=== PATIENT | female | born 1945 | race Caucasian/White ===

== ENCOUNTER 2020-08-12 16:24 | Outpatient (REF) | payer MEDICARE, MEDICAID, SELFPAY ==
--- NOTE | 2020-08-12 16:30 | MM_ITS ---
EXAMINATION: MM SCREENING DIGITAL BREAST TOMOSYNTHESIS, BILATERAL CLINICAL INFORMATION: Screening. Asymptomatic. The lifetime risk of breast cancer based on the Tyrer-Cuzick Model is 6.6%. COMPARISON: Mammography: 12/21/2018 and studies dating back to 09/02/2009. TECHNIQUE: Digital breast tomosynthesis is performed in both the craniocaudal and mediolateral oblique views along with computer-aided detection (CAD). Synthesized 2D images are generated from the tomosynthesis. FINDINGS: There are scattered areas of fibroglandular density (ACR BI-RADS breast composition Category b). There is multiplicity and bilaterality of calcifications the majority of which are vascular in nature. There are numerous calcifications about the anterior middle aspect of the right breast which appear to have increased since previous studies and I cannot definitely say are vascular in nature. Recommend spot magnification films of the right breast in craniocaudal and 90 degree mediolateral views. Radiology staff will contact patient to obtain these studies. No new suspicious left breast finding identified. MM/MM tomosynthesis screening BI IMPRESSION: Increase in right breast calcifications for which further evaluation with spot magnification views is recommended. ASSESSMENT: BI-RADS 0: Incomplete - Need Additional Imaging Evaluation RECOMMENDATION: 1. Additional views of the right breast 2. Targeted ultrasound if warranted after review of the additional views. 3. Radiology department staff will contact the patient for additional imaging. This patient's information was entered into a reminder system with a target due date for their next mammogram.
== END 2020-08-12 16:25 | disposition home or self-care (01) ==
LOC: HO.MAMMO 16:24
PROVIDERS: Visit Provider Internal Medicine Medical Oncology
DX: Z12.31 Encounter for screening mammogram for malignant neoplasm of breast (principal)
CPT/HCPCS: 77063; 77067

== ENCOUNTER 2020-08-18 16:17 | Outpatient (REF) | payer MEDICARE, MEDICAID, SELFPAY ==
--- NOTE | 2020-08-18 | US_ITS ---
EXAMINATION: US ABDOMEN COMPLETE CLINICAL INFORMATION: Right upper quadrant pain. COMPARISON: Ultrasound abdomen 08/14/2019 and 05/07/2012. CT abdomen and pelvis 06/15/2019. TECHNIQUE: Real-time imaging of the abdominal viscera. Technically difficult study secondary to bowel gas and body habitus. FINDINGS: PANCREAS: The visualized portions of the body and head are unremarkable. Tail obscured by overlying bowel gas. No peripancreatic inflammatory change or mass. ABDOMINAL AORTA: The proximal, mid, and distal segments are normal in caliber. INFERIOR VENA CAVA: Visualized portions are normal. LIVER: There is diffusely increased echogenicity consistent with fatty infiltration. The liver contour is normal. Previously noted cyst at the dome is not identified on this study. No focal hepatic lesion. There is no intrahepatic biliary duct dilatation seen. GALLBLADDER: There is sludge present. No gallbladder wall thickening or pericholecystic fluid is identified. COMMON BILE DUCT: Normal in caliber measuring 0.5 cm in diameter. RIGHT KIDNEY: Normal. No hydronephrosis. No renal calculi or focal parenchymal lesions. The kidney measures 11.0 cm in maximum dimension. LEFT KIDNEY: Normal. No hydronephrosis. No renal calculi or focal parenchymal lesions. The kidney measures 11.1 cm in maximum dimension. SPLEEN: The previously noted splenic cyst on ultrasound of 08/14/2019 is not identified. The spleen measures 11.4 cm in maximum dimension. FREE FLUID: None. US/US abdomen complete IMPRESSION: Gallbladder sludge without evidence of acute cholecystitis. Fatty infiltration of the liver.
== END 2020-08-18 16:18 | disposition home or self-care (01) ==
LOC: HO.US 16:17
PROVIDERS: Visit Provider Internal Medicine
DX: R10.11 Right upper quadrant pain (principal); R93.2 Abnormal findings on diagnostic imaging of liver and biliary tract
CPT/HCPCS: 76700

== ENCOUNTER 2020-09-11 14:40 | Outpatient (REF) | payer MEDICARE, MEDICAID, SELFPAY ==
--- NOTE | ~2020-09-11 | MM_ITS ---
EXAMINATION: MM DIAGNOSTIC DIGITAL MAMMOGRAPHY, RIGHT CLINICAL INFORMATION: Retroareolar calcifications COMPARISON: Mammography: August 12, 2020 and studies dating back to September 06, 2010 TECHNIQUE: Digital mammography is performed in the following views: Spot magnification views in craniocaudal and 90 degree mediolateral views. FINDINGS: There are scattered areas of fibroglandular density (ACR BI-RADS breast composition Category b). Films demonstrate some calcifications to represent vascular calcifications with one very faint grouping of calcifications which are difficult to definitely define as being vascular calcifications. Recommend 6 month follow-up magnification views of the right breast. Results are discussed with the patient at time of visit. MM/MM added views RT IMPRESSION: Probably benign retroareolar calcifications of the right breast. ASSESSMENT: BI-RADS 3: Probably Benign RECOMMENDATION: Diagnostic mammography in 6 months. This patient's information was entered into a reminder system with a target due date for their next mammogram.
== END 2020-09-11 14:41 | disposition home or self-care (01) ==
LOC: HO.MAMMO 14:40
PROVIDERS: Visit Provider Internal Medicine
DX: R92.1 Mammographic calcification found on diagnostic imaging of breast (principal)
CPT/HCPCS: 77065

== ENCOUNTER 2020-11-17 19:58 | Inpatient (IN) | payer MEDICARE, MEDICAID, SELFPAY ==
--- NOTE | ~2020-11-17 | XR_ITS ---
EXAMINATION: XR CHEST CLINICAL INFORMATION: Dyspnea COMPARISON: Chest x-ray 08/14/2019 TECHNIQUE: Frontal view of the chest was obtained. FINDINGS: Cardiac silhouette is normal in size. The lungs are well aerated. There is no lobar consolidation. Similar pleural tenting of the right lung base. No pleural effusion or pneumothorax. Degenerative changes of the spine. XR/XR chest 1V IMPRESSION: Stable examination demonstrating no acute pulmonary pathology.
--- NOTE | ~2020-11-17 | CT_ITS ---
EXAMINATION: CT CHEST WITHOUT CONTRAST CLINICAL INFORMATION: SIADH. Assess for occult malignancy COMPARISON: Chest radiograph 11/17/2020, CT abdomen with contrast 06/15/2019, CT chest with contrast 08/03/2010 TECHNIQUE: Multidetector volumetric CT imaging of the chest was done. Axial MIP volume rendering provided. Sagittal and coronal reformatted images were obtained. This CT examination was performed using dose optimization techniques as appropriate, variously including the following: *Automated exposure control *Adjustment of mA and/or kV according to patient size (this includes techniques or standardized protocols for targeted exams where dose is matched to indication/reason for exam; i.e. extremities or head) *Use of iterative reconstruction technique DLP: 239 mGy-cm FINDINGS: LUNGS: The central airways are clear. There is no visible endobronchial lesion or bronchiectasis. Atelectasis present right base adjacent to the effusion. There is no mass. There are multiple small nodules demonstrated, most are nonmineralized. Most are not visible on remote prior CT 2010 which were also at thicker sections limiting comparison. The left lung has over 15 nonmineralized nodules. The largest in the upper lobe is only 4 mm subpleural series 7/156. The largest in the left lower lobe is 5 mm posterior base series 7/474. There are also some incidental calcified granuloma anterior left upper lobe. The right lung has at least 15 nonmineralized nodules, the largest isolated nodule is 0.7 cm medial right middle lobe, similar to the remote CT 2010, consistent with a benign nodule. Multiple other nodules are 4 mm and less in size. A few calcified granulomata are also present on the right. There is new plaque like pleural-based nodule versus atelectasis posterior medial right upper lobe series 7 image 150, and sagittal image 60, measuring 6 x 6 x 13 mm. MEDIASTINUM: No hilar or mediastinal adenopathy. No pericardial effusion. Coronary artery atherosclerotic calcifications present. PLEURA: Small right effusion with passive atelectasis right base. AXILLA: No lymphadenopathy. UPPER ABDOMEN: Unremarkable. OSSEOUS STRUCTURES: Unremarkable. CT/CT chest wo con IMPRESSION: 1. Multiple small bilateral nonmineralized pulmonary nodules. Largest new plaque-like nodule right versus atelectasis posterior upper lobe 6 x 6 x 13 mm. Largest nodule on left 5 mm. Recommend follow-up noncontrast CT in 3 months for change. 2. Small right pleural effusion with passive atelectasis right base. 3. No hilar or mediastinal mass or adenopathy.
--- NOTE | ~2020-11-17 | CT_ITS ---
CT SOFT TISSUE NECK WITHOUT CONTRAST CLINICAL INFORMATION: History of throat cancer. Rule out recurrence. COMPARISON: Neck CT 05/30/2011. TECHNIQUE: Helical imaging was performed in the axial plane with generation of coronal and sagittal reformatted images. This CT examination was performed using dose optimization techniques as appropriate, variously including the following: *Automated exposure control *Adjustment of mA and/or kV according to patient size (this includes techniques or standardized protocols for targeted exams where dose is matched to indication/reason for exam; i.e. extremities or head) *Use of iterative reconstruction technique FINDINGS: Exam is very limited without contrast. Fatty replacement of the parotid and submandibular glands. Retropharyngeal course of the carotid arteries bilaterally. Nondiagnostic assessment for superficial mucosal lesions given the lack of contrast. No definite discrete masses are seen. No retropharyngeal fluid collections. There are surgical clips adjacent to the thyroid gland. No cervical lymphadenopathy. There is multilevel cervical spondylosis. No suspicious intraosseous lesions. Partially imaged small right pleural effusion. CT/CT soft tissue neck wo con IMPRESSION: - Nondiagnostic assessment for superficial mucosal based lesions given the lack of contrast. No definite discrete masses are identified. Postcontrast imaging or PET could be obtained in light of the history as clinically indicated. - No cervical lymphadenopathy. - Fatty replacement of the parotid and submandibular glands. - Retropharyngeal course of the carotid arteries bilaterally. - Partially imaged small right pleural effusion.
--- NOTE | ~2020-11-17 | CT_ITS ---
EXAMINATION: CT HEAD WITHOUT CONTRAST CLINICAL INFORMATION: Rule out JOB COACH/JOB DEVELOPER lesion. COMPARISON: None available. TECHNIQUE: Contiguous axial imaging was performed from the skull base to vertex without intravenous administration of contrast. This CT examination was performed using dose optimization techniques as appropriate, variously including the following: *Automated exposure control *Adjustment of mA and/or kV according to patient size (this includes techniques or standardized protocols for targeted exams where dose is matched to indication/reason for exam; i.e. extremities or head) *Use of iterative reconstruction technique FINDINGS: There is mild chronic microangiopathy. There is no intracranial hemorrhage, hydrocephalus, extra-axial surface collection, midline shift, or other herniation pattern. Santos to white matter differentiation is diffusely maintained without evidence of an evolved acute territorial infarct. The basilar cisterns are preserved. No significant soft tissue abnormality. No acute osseous abnormality. The paranasal sinuses and the mastoid air cells are well aerated. CT/CT head/brain wo con IMPRESSION: No acute intracranial abnormality. There is mild chronic microangiopathy. MRI with and without IV contrast would be more sensitive in assessing for metastatic lesions.
[2020-11-17 20:13] VITALS: BP 159/93; PULSE 108; RESP 20; TEMP 36.4; O2SAT 95; BMI 42.3
--- NOTE | 2020-11-17 21:34 | ECG_ITS ---
Test Reason : SOB Blood Pressure : / mmHG Vent. Rate : 120 BPM Atrial Rate : 129 BPM P-R Int : 000 ms QRS Dur : 096 ms QT Int : 288 ms P-R-T Axes : 000 -14 103 degrees QTc Int : 407 ms Atrial fibrillation with rapid ventricular response Nonspecific ST and T wave abnormality Abnormal ECG When compared with ECG of 15-JUN-2019 02:36, Atrial fibrillation has replaced Sinus rhythm Vent. rate has increased BY [address] no longer elevated in Lateral leads Referred By: Ila George Electronically Signed By:COLE BAR
--- NOTE | 2020-11-17 21:35 | ED.SOB ---
HPI - SOB/Dyspnea General Chief Complaint: General Medical Stated Complaint: DYSPNEA,HYPERTENSION Time Seen by Provider: 11/17/20 21:33 Source: patient Mode of arrival: EMS History of Present Illness HPI Narrative: 75-year-old female with known history of throat cancer who presents with increasing shortness of breath for the past 4 days with both orthopnea and dyspnea on exertion, cough at night, and denies any history of heart failure. In addition, patient denies fevers, chills, chest pain but states she has had nausea without abdominal pain, diarrhea, urinary pain/burning/frequency. In addition, patient states she has had some back pain but states that this has been a chronic component with her. She also describes some periorbital swelling over the last couple of days that occurs in the morning. Related Data Previous Rx's Medication Instructions Recorded apixaban 5 mg tablet 5 mg PO BID 30 Days #60 tab 10/13/20 Allergies Allergy/AdvReac Type Severity Reaction Status Date / Time SEASONAL ALLERGIES Allergy Unknown SNEEZING Uncoded 04/23/20 15:17 RUNNY NOSE Review of Systems Review of Systems: Pertinent positives and negatives as stated in HPI 10 point review of systems is otherwise negative. PMFSH Past Medical History Source: nursing notes reviewed Medical History Afib HTN (hypertension) Myocardial infarct Throat cancer Social History Social History Alcohol intake: never Smoking Status: Never smoker Use of substances other than those prescribed or required for medical reasons: No Advance Directives: No Advance Directives Information Provided: Yes Physical Exam Vital Signs: Vital Signs: Last Vital Signs Temp 97.8 F 11/17/20 22:19 Pulse 106 H 11/18/20 00:31 Resp 19 11/17/20 22:19 BP 146/76 H 11/18/20 00:31 Pulse Ox 95 11/17/20 22:19 Body Mass Index 42.3 VITAL SIGNS: Reviewed. GENERAL: Well developed, well nourished, mild distress. HEAD: Normocephalic/atraumatic, EYES: PERRLA, EOMI, no periorbital swelling noted at this time. OROPHARYNX: no oral lesions noted, posterior pharynx clear, moist mucosa NECK: Supple, no adenopathy LUNGS: Diminished throughout, difficulty completing full sentences, rales noted and diminished at left base, tachypnea. SpO2<95> CARDIOVASCULAR: Regular rate and rhythm without noted murmurs, no JVD or lower extremity edema. ABDOMEN: Obese, Soft, non-tender, non-distended with bowel sounds. NEUROLOGIC: Alert and oriented x 4. Strength and sensation to light touch were grossly intact x 4. Course Course Course Narrative: 75-year-old female with history and clinical presentation suggestive of CHF exacerbation, pneumonia, less likely cardiac ischemia. Review of all investigations new onset atrial fibrillation with CHF, hyponatremia, hypomagnesemia. Patient on Eliquis for anticoagulation and endorses that she is on flecainide. This case was discussed with inpatient hospitalist team who is agreeable for admission and the decision was made to delay administration of Lasix at this time due to the hyponatremia. MDM - SOB/Dyspnea Lab Data Result diagrams: 11/17/20 22:05 11/17/20 22:05 Labs: Lab Results 11/17/20 11/17/20 11/17/20 Range/Units 22:05 22:05 22:05 WBC 12.2 H (4.8-10.8) X10*3/uL RBC 3.85 L (4.20-5.50) X10*6/uL Hgb 12.9 (12.0-16.0) g/dl Hct 36.5 L (37-47) % MCV 94.8 (80-98) fL MCH 33.5 H (27.0-33.0) pg MCHC 35.3 H (31.0-35.0) g/dl RDW 12.9 (11.0-16.0) % Plt Count 233 (160-400) X10*3/uL MPV 9.3 L (9.4-12.3) fL Immature Gran % (Auto) 0.5 H (0.0-0.4) % Neut % (Auto) 87.3 H (45-73) % Lymph % (Auto) 6.1 L (20-40) % [place] % (Auto) 5.9 (2-11) % Eos % (Auto) 0.0 (0-4) % Baso % (Auto) 0.2 (0-2) % Lymph # (Auto) 0.7 L (1.2-4.9) X10*3/uL [place] # (Auto) 0.7 (0.1-1.2) X10*3/uL Eos # (Auto) 0.0 (0.0-0.4) X10*3/uL Baso # (Auto) 0.0 (0.0-0.2) X10*3/uL Abs Immat Gran (auto) 0.06 H (0.00-0.03) X10*3/uL Absolute Neuts (auto) 10.7 H (2.0-8.3) X10*3/uL Absolute Nucleated RBC 0.000 (0.0-0.012) X10*3/uL Nucleated RBC % (auto) 0.0 (0.0-0.2) /100WBC VBG pH (7.32-7.43) VBG pCO2 mmHg VBG pO2 mmHg VBG HCO3 (22-26) mmol/L VBG O2 Saturation % VBG Base Excess mmol/L Sodium 119 L* (135-145) mmol/L Potassium 4.0 (3.3-5.1) mmol/L Chloride 83 L (96-108) mmol/L Carbon Dioxide 28 (22-29) mmol/L Anion Gap 13 (12-20) BUN 10 (9-16) mg/dL Creatinine 0.62 (0.5-1.4) mg/dL Estim Creat Clear Calc 106.1 Estimated GFR > 60 Random Glucose 171 H (60-115) mg/dL Lactic Acid (0.5-2.0) mmol/L Calcium 8.1 L (8.4-10.2) mg/dL Magnesium 1.4 L* (1.6-2.6) mg/dL Total Bilirubin 0.7 (0.0-1.0) mg/dL AST 24 (5-31) U/L ALT 18 (0-31) U/L Alkaline Phosphatase 69 (39-117) U/L Troponin I High Sens (<3.5-17.0) ng/L B-Natriuretic Peptide 704 H (<100) pg/mL Total Protein 6.6 (6.5-8.0) g/dL Albumin 3.9 (3.5-5.0) g/dL COVID-19 ([facility]) (Negative) COVID-19 Clin [facility] 11/17/20 11/17/20 11/17/20 Range/Units 22:05 22:05 22:05 WBC (4.8-10.8) X10*3/uL RBC (4.20-5.50) X10*6/uL Hgb (12.0-16.0) g/dl Hct (37-47) % MCV (80-98) fL MCH (27.0-33.0) pg MCHC (31.0-35.0) g/dl RDW (11.0-16.0) % Plt Count (160-400) X10*3/uL MPV (9.4-12.3) fL Immature Gran % (Auto) (0.0-0.4) % Neut % (Auto) (45-73) % Lymph % (Auto) (20-40) % [place] % (Auto) (2-11) % Eos % (Auto) (0-4) % Baso % (Auto) (0-2) % Lymph # (Auto) (1.2-4.9) X10*3/uL [place] # (Auto) (0.1-1.2) X10*3/uL Eos # (Auto) (0.0-0.4) X10*3/uL Baso # (Auto) (0.0-0.2) X10*3/uL Abs Immat Gran (auto) (0.00-0.03) X10*3/uL Absolute Neuts (auto) (2.0-8.3) X10*3/uL Absolute Nucleated RBC (0.0-0.012) X10*3/uL Nucleated RBC % (auto) (0.0-0.2) /100WBC VBG pH (7.32-7.43) VBG pCO2 mmHg VBG pO2 mmHg VBG HCO3 (22-26) mmol/L VBG O2 Saturation % VBG Base Excess mmol/L Sodium (135-145) mmol/L Potassium (3.3-5.1) mmol/L Chloride (96-108) mmol/L Carbon Dioxide (22-29) mmol/L Anion Gap (12-20) BUN (9-16) mg/dL Creatinine (0.5-1.4) mg/dL Estim Creat Clear Calc Estimated GFR Random Glucose (60-115) mg/dL Lactic Acid 1.5 (0.5-2.0) mmol/L Calcium (8.4-10.2) mg/dL Magnesium (1.6-2.6) mg/dL Total Bilirubin (0.0-1.0) mg/dL AST (5-31) U/L ALT (0-31) U/L Alkaline Phosphatase (39-117) U/L Troponin I High Sens 7.6 (<3.5-17.0) ng/L B-Natriuretic Peptide (<100) pg/mL Total Protein (6.5-8.0) g/dL Albumin (3.5-5.0) g/dL COVID-19 ([facility]) Negative (Negative) COVID-19 Clin Com See Note 11/17/20 Range/Units 22:10 WBC (4.8-10.8) X10*3/uL RBC (4.20-5.50) X10*6/uL Hgb (12.0-16.0) g/dl Hct (37-47) % MCV (80-98) fL MCH (27.0-33.0) pg MCHC (31.0-35.0) g/dl RDW (11.0-16.0) % Plt Count (160-400) X10*3/uL MPV (9.4-12.3) fL Immature Gran % (Auto) (0.0-0.4) % Neut % (Auto) (45-73) % Lymph % (Auto) (20-40) % [place] % (Auto) (2-11) % Eos % (Auto) (0-4) % Baso % (Auto) (0-2) % Lymph # (Auto) (1.2-4.9) X10*3/uL [place] # (Auto) (0.1-1.2) X10*3/uL Eos # (Auto) (0.0-0.4) X10*3/uL Baso # (Auto) (0.0-0.2) X10*3/uL Abs Immat Gran (auto) (0.00-0.03) X10*3/uL Absolute Neuts (auto) (2.0-8.3) X10*3/uL Absolute Nucleated RBC (0.0-0.012) X10*3/uL Nucleated RBC % (auto) (0.0-0.2) /100WBC VBG pH 7.41 (7.32-7.43) VBG pCO2 40 mmHg VBG pO2 80 mmHg VBG HCO3 26 (22-26) mmol/L VBG O2 Saturation 94.0 % VBG Base Excess 1.9 mmol/L Sodium (135-145) mmol/L Potassium (3.3-5.1) mmol/L Chloride (96-108) mmol/L Carbon Dioxide (22-29) mmol/L Anion Gap (12-20) BUN (9-16) mg/dL Creatinine (0.5-1.4) mg/dL Estim Creat Clear Calc Estimated GFR Random Glucose (60-115) mg/dL Lactic Acid (0.5-2.0) mmol/L Calcium (8.4-10.2) mg/dL Magnesium (1.6-2.6) mg/dL Total Bilirubin (0.0-1.0) mg/dL AST (5-31) U/L ALT (0-31) U/L Alkaline Phosphatase (39-117) U/L Troponin I High Sens (<3.5-17.0) ng/L B-Natriuretic Peptide (<100) pg/mL Total Protein (6.5-8.0) g/dL Albumin (3.5-5.0) g/dL COVID-19 ([facility]) (Negative) COVID-19 Clin Com ECG Data Attestation: I personally reviewed and interpreted this ECG as follows: Prior ECG tracings: available for review (06/15/2019 patient now has atrial fibrillation) Interpretation: Atrial fibrillation, HR -120, no evidence of acute ischemia, QRS/QTC are within normal limits. Critical Care Time Critical Care Time Critical Care Time: Yes Total Critical Care Time: 45 Attestation: I personally attest to this time spent taking care of the patient. Discharge Plan Discharge Clinical Impression: Atrial fibrillation, new onset, Hypomagnesemia, Hyponatremia Patient Disposition: Admitted As Inpatient
[2020-11-17 22:11] LABS: MANUAL DIFF FLAG NO
[2020-11-17 22:13] LABS: Basophils Percent Auto 0.2 % (0-2); Hematocrit 36.5 % (37-47); Hemoglobin 12.9 g/dl (12.0-16.0); Imm Gran Abs Auto 0.06 X10*3/uL (0.00-0.03); Imm Gran Pct Auto 0.5 % (0.0-0.4); Lymphocytes Absolute Auto 0.7 X10*3/uL (1.2-4.9); Lymphocytes Percent Auto 6.1 % (20-40); Mean Corpuscular HGB Conc 35.3 g/dl (31.0-35.0); Mean Corpuscular Hemoglobin 33.5 pg (27.0-33.0); Mean Corpuscular Volume 94.8 fL (80-98); Mean Platelet Volume 9.3 fL (9.4-12.3); Monocytes Absolute Auto 0.7 X10*3/uL (0.1-1.2); Monocytes Percent Auto 5.9 % (2-11); Neutrophils Absolute Auto 10.7 X10*3/uL (2.0-8.3); Neutrophils Percent Auto 87.3 % (45-73); Platelet Count 233 X10*3/uL (160-400); Red Blood Count 3.85 X10*6/uL (4.20-5.50); Red Cell Distribution Width 12.9 % (11.0-16.0); White Blood Count 12.2 X10*3/uL (4.8-10.8)
[2020-11-17 22:16] LABS: Venous Blood Gas Refer to POC result
[2020-11-17 22:17] LABS: VBG Base Excess 1.9 mmol/L; VBG HCO3 26 mmol/L (22-26); VBG pCO2 40 mmHg; VBG pH 7.41 (7.32-7.43); VBG pO2 80 mmHg
[2020-11-17 22:19] VITALS: BP 155/94; PULSE 110; RESP 19; TEMP 36.6; O2SAT 95
[2020-11-17 22:29] LABS: COVID-19 Test Negative (Negative); IDNOW Serial# 9DD0AD1C
[2020-11-17 22:42] LABS: Lactic Acid 1.5 mmol/L (0.5-2.0)
[2020-11-17 22:56] LABS: B Type Natriuretic Peptide 704 pg/mL (<100); Troponin-I High Sensitivity 7.6 ng/L (<3.5-17.0)
[2020-11-17 23:06] LABS: Alanine Aminotransferase 18 U/L (0-31); Albumin Level 3.9 g/dL (3.5-5.0); Alkaline Phosphatase 69 U/L (39-117); Anion Gap 13 (12-20); Aspartate Amino Transferase 24 U/L (5-31); Bilirubin Total 0.7 mg/dL (0.0-1.0); Blood Urea Nitrogen 10 mg/dL (9-16); Calcium 8.1 mg/dL (8.4-10.2); Carbon Dioxide 28 mmol/L (22-29); Chloride 83 mmol/L (96-108); Creatinine Clr Calc Pharmacy 106.1; Estimated Glomerular Filt Rate > 60; Glucose Random 171 mg/dL (60-115); Magnesium 1.4 mg/dL (1.6-2.6); Sodium 119 mmol/L (135-145); Total Protein 6.6 g/dL (6.5-8.0)
--- NOTE | 2020-11-17 23:13 | P.HPHOSP_ITS ---
History of Present Illness Date of Service: 11/17/20 Chief Complaint: Chest discomfort 75-year-old female with past medical history of hypertension hyperlipidemia, anxiety, AFib on Eliquis, chronic back pain status post surgery presented hospital a chief complaint of chest discomfort. Patient mentions that she has been having intermittent discomfort, no associated lightheadedness dizziness. No associated diaphoresis nausea or vomiting. Denies any chest pain at the time of my entry. Also mentioned she has been having shortness of breath and dyspnea on exertion with minimal activity. Denies any leg swelling. Denies any fever chills cough. Denies any recent travel or sick contacts. Review of all other systems is negative except mentioned above ER course: Per ER team patient noted to have sodium of 119. Chest x-ray showed no acute findings. Noted elevated proBNP, EKG nonischemic ; troponin negative admitted to the hospital for further management. [facility], [facility] Medical History Afib Essential hypertension HTN (hypertension) Myocardial infarct Throat cancer Social History Household Members: Family Housing: House Alcohol intake: current Alcohol type: beer and hard liquor Smoking Status: Former smoker service: No Current occupational status: retired Meds Allergies Allergy/AdvReac Type Severity Reaction Status Date / Time SEASONAL ALLERGIES Allergy Unknown SNEEZING Uncoded 04/23/20 15:17 RUNNY NOSE Active Medications: Current Medications Generic Name Dose Route Start Last Admin Trade Name Freq PRN Reason Stop Dose Admin Acetaminophen 650 mg 11/17/20 23:10 Acetaminophen 325 Mg Tablet PO Q6H PRN Pain, Mild (Pain Scale 1-3) Magnesium Sulfate/Dextrose 1 gm in 100 mls @ 100 mls/hr 11/17/20 23:07 IV 11/18/20 00:06 ONCE ONE Sodium Chloride 1,000 mls @ 999 mls/hr 11/17/20 23:09 Ns IV 11/18/20 00:09 .Q1H1M STA Sodium Chloride 1,000 mls @ 50 mls/hr 11/17/20 23:15 Ns IVCONT .Q20H DEE Senna 17.2 mg 11/17/20 23:10 Sennosides 8.6 Mg Tablet PO BEDTIME PRN Constipation Sodium Chloride 3 ml 11/18/20 00:00 0.9 % Sodium Chloride Flush 3 Ml Syringe IVFLUSH QSHIFT [facility] Home Medications Medication Instructions Recorded Confirmed Last Taken Type lorazepam 1 tab PO BID PRN 11/18/20 11/18/20 Unknown History omeprazole 1 cap PO BID 11/18/20 11/18/20 Unknown History simvastatin 1 tab PO DAILY 11/18/20 11/18/20 Unknown History Physical Exam Vital Signs and Narrative: Vital Signs: Last Vital Signs Temp 97.8 F 11/17/20 22:19 Pulse 110 H 11/17/20 22:19 Resp 19 11/17/20 22:19 BP 155/94 H 11/17/20 22:19 Pulse Ox 95 11/17/20 22:19 Body Mass Index 42.3 Gen: Appears be in no acute distress HEENT: NCAT, Moist mucosa. Pulmonary: Coarse breath sounds CVS: Normal S1-S2 Abdomen: BS+, Soft, Nontender Extremities: Warm well perfused Neuro: Alert and awake. Grossly nonfocal Results Labs CBC and Chem 7: 11/26/20 05:46 11/26/20 05:46 Labs: Laboratory Results - last 24 hr 11/17/20 11/17/20 11/17/20 22:05 22:05 22:05 MCV 94.8 MCH 33.5 H MCHC 35.3 H RDW 12.9 Plt Count 233 MPV 9.3 L Immature Gran % (Auto) 0.5 H Neut % (Auto) 87.3 H Lymph % (Auto) 6.1 L [place] % (Auto) 5.9 Eos % (Auto) 0.0 Baso % (Auto) 0.2 Lymph # (Auto) 0.7 L [place] # (Auto) 0.7 Eos # (Auto) 0.0 Baso # (Auto) 0.0 Abs Immat Gran (auto) 0.06 H Absolute Neuts (auto) 10.7 H Absolute Nucleated RBC 0.000 Nucleated RBC % (auto) 0.0 VBG pH VBG pCO2 VBG pO2 VBG HCO3 VBG O2 Saturation VBG Base Excess Anion Gap 13 Estim Creat Clear Calc 106.1 Estimated GFR > 60 Random Glucose 171 H Lactic Acid Calcium 8.1 L Magnesium 1.4 L* Total Bilirubin 0.7 AST 24 ALT 18 Alkaline Phosphatase 69 Troponin I High Sens B-Natriuretic Peptide 704 H Total Protein 6.6 Albumin 3.9 COVID-19 ([facility]) COVID-19 Clin Com 11/17/20 11/17/20 11/17/20 22:05 22:05 22:05 MCV MCH MCHC RDW Plt Count MPV Immature Gran % (Auto) Neut % (Auto) Lymph % (Auto) [place] % (Auto) Eos % (Auto) Baso % (Auto) Lymph # (Auto) [place] # (Auto) Eos # (Auto) Baso # (Auto) Abs Immat Gran (auto) Absolute Neuts (auto) Absolute Nucleated RBC Nucleated RBC % (auto) VBG pH VBG pCO2 VBG pO2 VBG HCO3 VBG O2 Saturation VBG Base Excess Anion Gap Estim Creat Clear Calc Estimated GFR Random Glucose Lactic Acid 1.5 Calcium Magnesium Total Bilirubin AST ALT Alkaline Phosphatase Troponin I High Sens 7.6 B-Natriuretic Peptide Total Protein Albumin COVID-19 ([facility]) Negative COVID-19 Clin Com See Note 11/17/20 22:10 MCV MCH MCHC RDW Plt Count MPV Immature Gran % (Auto) Neut % (Auto) Lymph % (Auto) [place] % (Auto) Eos % (Auto) Baso % (Auto) Lymph # (Auto) [place] # (Auto) Eos # (Auto) Baso # (Auto) Abs Immat Gran (auto) Absolute Neuts (auto) Absolute Nucleated RBC Nucleated RBC % (auto) VBG pH 7.41 VBG pCO2 40 VBG pO2 80 VBG HCO3 26 VBG O2 Saturation 94.0 VBG Base Excess 1.9 Anion Gap Estim Creat Clear Calc Estimated GFR Random Glucose Lactic Acid Calcium Magnesium Total Bilirubin AST ALT Alkaline Phosphatase Troponin I High Sens B-Natriuretic Peptide Total Protein Albumin COVID-19 ([facility]) COVID-19 Clin Com Imaging Radiologist's Impressions: Impressions Chest X-Ray 11/17/20 21:34 IMPRESSION: Stable examination demonstrating no acute pulmonary pathology. Assessment and Plan (1) Hyponatremia: Status: Acute 75-year-old female with a past medical history of hypertension, hyperlipidemia, anxiety, AFib on Eliquis, chronic back pain presented to hospital with a chief complaint of chest discomfort/dyspnea on exertion. Chest discomfort/dyspnea on exertion: ProBNP slightly elevated but no obvious signs of fluid overload. Chest x-ray negative. Saturating well on room air. Initial troponin negative. EKG nonischemic. Cardiology consult Echocardiogram Severe hyponatremia: Patient currently mentating well. Exam nonfocal. ? Low solute state. Will continue normal saline at 50 cc/hour. Nephrology consult. Repeat sodium levels. History of AFib: Continue home Eliquis. For all other chronic conditions, home medications will be continued once med rec is done. DVT prophylaxis: Patient on systemic anticoagulation Code status: Full code
[2020-11-17] MEDS: Magnesium Sulfate/D5W 1 GM/100 ML PIGGYBACK IV (23:45)
[2020-11-17 23:54] VITALS: BP 163/101; PULSE 109
[2020-11-17] MEDS: Metoprolol Tartrate 5 MG/5 ML VIAL 2.5 MG IVPUSH (23:54)
[2020-11-17] MEDS: 0.9 % Sodium Chloride 1,000 ML 999 ML IV (23:54)
[2020-11-18] VITALS (13 sets, daily range): BP systolic 142–184; BP diastolic 76–102; PULSE 99–135; RESP 16–20; TEMP 36.4–36.6; O2SAT 93–96; BMI 39.9
[2020-11-18] MEDS: 0.9 % Sodium Chloride Flush 3 ML SYRINGE IVFLUSH ×2 (00:01→15:38)
[2020-11-18 01:00] LABS: INTERNATIONAL NORM RATIO 1.3 (0.9-1.1)
[2020-11-18 01:03] LABS: Partial Thromboplastin Time 34.4 SEC (24.1-38.0)
[2020-11-18 01:24] LABS: Anion Gap 13 (12-20); Blood Urea Nitrogen 10 mg/dL (9-16); Calcium 8.4 mg/dL (8.4-10.2); Carbon Dioxide 29 mmol/L (22-29); Chloride 82 mmol/L (96-108); Creatinine Clr Calc Pharmacy 109.7; Estimated Glomerular Filt Rate > 60; Glucose Random 144 mg/dL (60-115); Potassium 3.9 mmol/L (3.3-5.1); Sodium 120 mmol/L (135-145)
[2020-11-18] MEDS: 0.9 % Sodium Chloride 1,000 ML 50 ML IVCONT (01:26)
[2020-11-18 01:30] LABS: Troponin-I High Sensitivity 9.2 ng/L (<3.5-17.0)
[2020-11-18 07:01] LABS: MANUAL DIFF FLAG NO
[2020-11-18 07:05] LABS: Basophils Percent Auto 0.2 % (0-2); Eosinophils Absolute Auto 0.1 X10*3/uL (0.0-0.4); Eosinophils Percent Auto 0.4 % (0-4); Hematocrit 37.7 % (37-47); Hemoglobin 13.2 g/dl (12.0-16.0); Imm Gran Abs Auto 0.06 X10*3/uL (0.00-0.03); Imm Gran Pct Auto 0.4 % (0.0-0.4); Lymphocytes Absolute Auto 1.3 X10*3/uL (1.2-4.9); Lymphocytes Percent Auto 9.6 % (20-40); Mean Corpuscular Hemoglobin 33.2 pg (27.0-33.0); Mean Platelet Volume 9.3 fL (9.4-12.3); Monocytes Absolute Auto 1.1 X10*3/uL (0.1-1.2); Neutrophils Absolute Auto 11.4 X10*3/uL (2.0-8.3); Neutrophils Percent Auto 81.4 % (45-73); Platelet Count 248 X10*3/uL (160-400); Red Blood Count 3.97 X10*6/uL (4.20-5.50); Red Cell Distribution Width 12.7 % (11.0-16.0)
[2020-11-18 07:32] LABS: Anion Gap 14 (12-20); Blood Urea Nitrogen 8 mg/dL (9-16); Calcium 8.5 mg/dL (8.4-10.2); Carbon Dioxide 27 mmol/L (22-29); Chloride 84 mmol/L (96-108); Creatinine Clr Calc Pharmacy 107.8; Estimated Glomerular Filt Rate > 60; Glucose Random 123 mg/dL (60-115); Potassium 3.7 mmol/L (3.3-5.1); Sodium 121 mmol/L (135-145)
[2020-11-18 08:10] LABS: TSH reflex Free T4 1.89 uIU/mL (0.32-4.0)
[2020-11-18] MEDS: Acetaminophen 325 MG TABLET 650 MG PO (08:13)
--- NOTE | 2020-11-18 08:58 | MHC.CM.PN ---
pt lives in her home c her adult son and a boarder. her son is limited in the help he gives his mother and he does not have a drivers license. the patient reports that she is very independent in her care. she drive a car and ambulates s any AD. she does not have any svcs in the home and denies the need for vna at dc.. she has two daughters that live in the area, one of them will provide transportation at dc. dc plan is home no svcs. cm to cont. to follow.
[2020-11-18 09:28] LABS: Magnesium 1.9 mg/dL (1.6-2.6)
[2020-11-18] MEDS: Omeprazole 20 MG CAPSULE.DR PO ×2 (10:06→22:00)
[2020-11-18] MEDS: Apixaban 5 MG TABLET PO ×2 (10:06→21:58)
[2020-11-18] MEDS: Metoprolol Tartrate 50 MG TABLET PO (10:06)
--- NOTE | 2020-11-18 10:24 | PM.CNCAR ---
History of Present Illness History of Present Illness Date of Service: 11/18/20 Consult reason: atrial fibrillation Chief complaint: Hyponatremia Narrative: This is a cardiology consultation regarding atrial fibrillation. She has paroxysmal atrial fibrillation for which she takes flecainide, beta-blockers as well as Eliquis. She has hypertension and dyslipidemia as well. She states that she thought that she was having herniated disc because of back pain. Subsequently, she has been noticing a discomfort in the chest as well that she feels that is worse with breathing. She also has shortness of breath even with mild activity. These have been happening for the last few days. Otherwise no known coronary disease myocardial infarction. She has been detected to have atrial fibrillation with rapid rate after arrival to the ER and her blood pressure is also been quite high. Other abnormalities include low sodium. She states that she is quite compliant with all her medications. But I am not entirely clear if he took the flecainide in the last couple of days. Review of Systems Review of Systems: Yes all other systems are reviewed and are negative Cardiovascular: Cardiovascular: Reports as per HPI, Reports no additional cardiovascular complaints, Denies acrocyanosis, Denies cool extremities, Denies painful fingertips, Reports chest pain, Denies chest pain at rest, Denies diaphoresis, Denies syncope, Denies irregular heart rhythm, Denies claudication, Denies leg edema, Denies lightheadedness, Denies palpitations and Reports dyspnea Respiratory: Respiratory: Reports dyspnea Neurologic: Denies syncope Endocrine: Endocrine: Denies palpitations PMFSH Past Medical History Medical History (Updated 11/18/20 @ 10:28 by Vladislav Cervantes MD) Afib Essential hypertension HTN (hypertension) Myocardial infarct Throat cancer Family History Pertinent family history: No significant cardiac history in family. Family history: reviewed and not pertinent Social History Social History Alcohol intake: never Smoking Status: Never smoker Use of substances other than those prescribed or required for medical reasons: No Advance Directives: No Advance Directives Information Provided: Yes service: No Current occupational status: retired Meds Allergies Allergy/AdvReac Type Severity Reaction Status Date / Time SEASONAL ALLERGIES Allergy Unknown SNEEZING Uncoded 04/23/20 15:17 RUNNY NOSE Active Medications: Current Medications Generic Name Dose Route Start Last Admin Trade Name Freq PRN Reason Stop Dose Admin Acetaminophen 650 mg 11/17/20 23:10 11/18/20 08:13 Acetaminophen 325 Mg Tablet PO 650 mg Q6H PRN Administration Pain, Mild (Pain Scale 1-3) Apixaban 5 mg 11/18/20 09:00 11/18/20 10:06 Apixaban 5 Mg Tablet PO 5 mg BID DEE Administration Atorvastatin Calcium 10 mg 11/18/20 21:00 Atorvastatin Calcium 10 Mg Tablet PO BEDTIME DEE Lorazepam 1 mg 11/18/20 08:57 Lorazepam 1 Mg Tablet PO BID PRN Anxiety Metoprolol Tartrate 50 mg 11/18/20 09:00 11/18/20 10:06 Metoprolol Tartrate 50 Mg Tablet PO 50 mg BID [facility] Administration Protocol Omeprazole 20 mg 11/18/20 09:00 11/18/20 10:06 Omeprazole 20 Mg Capsule.Dr PO 20 mg BID [facility] Administration Senna 17.2 mg 11/17/20 23:10 Sennosides 8.6 Mg Tablet PO BEDTIME PRN Constipation Sodium Chloride 3 ml 11/18/20 00:00 11/18/20 09:24 0.9 % Sodium Chloride Flush 3 Ml Syringe IVFLUSH Not Given QSHIFT [facility] Home Medications Medication Instructions Recorded Confirmed Last Taken Type lorazepam 1 tab PO BID PRN 11/18/20 11/18/20 Unknown History metoprolol tartrate 1 tab PO BID 11/18/20 11/18/20 Unknown History omeprazole 1 cap PO BID 11/18/20 11/18/20 Unknown History simvastatin 1 tab PO DAILY 11/18/20 11/18/20 Unknown History Physical Exam Vital Signs: Vital Signs: Last Vital Signs Temp 97.8 F 11/17/20 22:19 Pulse 135 H 11/18/20 10:06 Resp 16 11/18/20 08:14 BP 165/102 H 11/18/20 10:06 Pulse Ox 95 11/18/20 08:14 Body Mass Index 42.3 Const: General: cooperative, comfortable and no acute distress Orientation/consciousness: patient oriented x3 HENMT: Other: Unremarkable Neck: Neck: Yes normal visual inspection Chest: Chest palpation & inspection: normal inspection of the chest Resp: Auscultation: clear to auscultation bilaterally, no crackles and no wheezes Cardio: Jugular venous distension: no JVD Palpation: normal PMI Heart sounds: S1 normal heart sound present, S2 normal heart sound present, no gallops, no murmurs and no rubs GI: Palpation (GI): Soft to palpation Back/Spine/Pelvis: Other: unremarkable Skin: General skin exam: no rashes or lesions noted Neuro: General: patient oriented x3 Extrem: General: Yes no clubbing, cyanosis or edema Psych: Mental Status: mental status grossly normal Results Labs and Meds Result diagrams: 11/18/20 06:52 11/18/20 06:52 Lab results: Laboratory Results - last 24 hr 11/17/20 11/17/20 11/17/20 22:05 22:05 22:05 WBC 12.2 H RBC 3.85 L Hgb 12.9 Hct 36.5 L MCV 94.8 MCH 33.5 H MCHC 35.3 H RDW 12.9 Plt Count 233 MPV 9.3 L Immature Gran % (Auto) 0.5 H Neut % (Auto) 87.3 H Lymph % (Auto) 6.1 L Barber % (Auto) 5.9 Eos % (Auto) 0.0 Baso % (Auto) 0.2 Lymph # (Auto) 0.7 L Barber # (Auto) 0.7 Eos # (Auto) 0.0 Baso # (Auto) 0.0 Abs Immat Gran (auto) 0.06 H Absolute Neuts (auto) 10.7 H Absolute Nucleated RBC 0.000 Nucleated RBC % (auto) 0.0 PT INR APTT VBG pH VBG pCO2 VBG pO2 VBG HCO3 VBG O2 Saturation VBG Base Excess Sodium 119 L* Potassium 4.0 Chloride 83 L Carbon Dioxide 28 Anion Gap 13 BUN 10 Creatinine 0.62 Estim Creat Clear Calc 106.1 Estimated GFR > 60 Random Glucose 171 H Lactic Acid Calcium 8.1 L Magnesium 1.4 L* Total Bilirubin 0.7 AST 24 ALT 18 Alkaline Phosphatase 69 Troponin I High Sens B-Natriuretic Peptide 704 H Total Protein 6.6 Albumin 3.9 TSH COVID-19 ([facility]) COVID-19 Clin Com 11/17/20 11/17/20 11/17/20 22:05 22:05 22:05 WBC RBC Hgb Hct MCV MCH MCHC RDW Plt Count MPV Immature Gran % (Auto) Neut % (Auto) Lymph % (Auto) Barber % (Auto) Eos % (Auto) Baso % (Auto) Lymph # (Auto) Barber # (Auto) Eos # (Auto) Baso # (Auto) Abs Immat Gran (auto) Absolute Neuts (auto) Absolute Nucleated RBC Nucleated RBC % (auto) PT INR APTT VBG pH VBG pCO2 VBG pO2 VBG HCO3 VBG O2 Saturation VBG Base Excess Sodium Potassium Chloride Carbon Dioxide Anion Gap BUN Creatinine Estim Creat Clear Calc Estimated GFR Random Glucose Lactic Acid 1.5 Calcium Magnesium Total Bilirubin AST ALT Alkaline Phosphatase Troponin I High Sens 7.6 B-Natriuretic Peptide Total Protein Albumin TSH COVID-19 ([facility]) Negative COVID-[facility] Com See Note 11/17/20 11/18/20 11/18/20 22:10 00:42 00:42 WBC RBC Hgb Hct MCV MCH MCHC RDW Plt Count MPV Immature Gran % (Auto) Neut % (Auto) Lymph % (Auto) Barber % (Auto) Eos % (Auto) Baso % (Auto) Lymph # (Auto) Barber # (Auto) Eos # (Auto) Baso # (Auto) Abs Immat Gran (auto) Absolute Neuts (auto) Absolute Nucleated RBC Nucleated RBC % (auto) PT 16.0 H Cancelled INR 1.3 H Cancelled APTT 34.4 VBG pH 7.41 VBG pCO2 40 VBG pO2 80 VBG HCO3 26 VBG O2 Saturation 94.0 VBG Base Excess 1.9 Sodium Potassium Chloride Carbon Dioxide Anion Gap BUN Creatinine Estim Creat Clear Calc Estimated GFR Random Glucose Lactic Acid Calcium Magnesium Total Bilirubin AST ALT Alkaline Phosphatase Troponin I High Sens B-Natriuretic Peptide Total Protein Albumin TSH COVID-19 ([facility]) COVID-[facility] 11/18/20 11/18/20 11/18/20 00:42 00:42 06:52 WBC 14.0 H RBC 3.97 L Hgb 13.2 Hct 37.7 MCV 95.0 MCH 33.2 H MCHC 35.0 RDW 12.7 Plt Count 248 MPV 9.3 L Immature Gran % (Auto) 0.4 Neut % (Auto) 81.4 H Lymph % (Auto) 9.6 L Barber % (Auto) 8.0 Eos % (Auto) 0.4 Baso % (Auto) 0.2 Lymph # (Auto) 1.3 Barber # (Auto) 1.1 Eos # (Auto) 0.1 Baso # (Auto) 0.0 Abs Immat Gran (auto) 0.06 H Absolute Neuts (auto) 11.4 H Absolute Nucleated RBC 0.000 Nucleated RBC % (auto) 0.0 PT INR APTT VBG pH VBG pCO2 VBG pO2 VBG HCO3 VBG O2 Saturation VBG Base Excess Sodium 120 L* Potassium 3.9 Chloride 82 L Carbon Dioxide 29 Anion Gap 13 BUN 10 Creatinine 0.60 Estim Creat Clear Calc 109.7 Estimated GFR > 60 Random Glucose 144 H Lactic Acid Calcium 8.4 Magnesium 1.9 Total Bilirubin AST ALT Alkaline Phosphatase Troponin I High Sens 9.2 B-Natriuretic Peptide Total Protein Albumin TSH COVID-19 ([facility]) COVID-19 [facility] 11/18/20 06:52 WBC RBC Hgb Hct MCV MCH MCHC RDW Plt Count MPV Immature Gran % (Auto) Neut % (Auto) Lymph % (Auto) Barber % (Auto) Eos % (Auto) Baso % (Auto) Lymph # (Auto) Barber # (Auto) Eos # (Auto) Baso # (Auto) Abs Immat Gran (auto) Absolute Neuts (auto) Absolute Nucleated RBC Nucleated RBC % (auto) PT INR APTT VBG pH VBG pCO2 VBG pO2 VBG HCO3 VBG O2 Saturation VBG Base Excess Sodium 121 L Potassium 3.7 Chloride 84 L Carbon Dioxide 27 Anion Gap 14 BUN 8 L Creatinine 0.61 Estim Creat Clear Calc 107.8 Estimated GFR > 60 Random Glucose 123 H Lactic Acid Calcium 8.5 Magnesium Total Bilirubin AST ALT Alkaline Phosphatase Troponin I High Sens B-Natriuretic Peptide Total Protein Albumin TSH 1.89 COVID-19 ([facility]) COVID-19 Clin Com ECG Attestation: I personally reviewed and interpreted this ECG as follows: Interpretation: EKG with atrial fibrillation with rapid rate at 120/Min. Nonspecific ST-T changes. On telemetry, she is still in atrial fibrillation at around 130/Min. Imaging Radiologist's impression: Impressions Chest X-Ray 11/17/20 21:34 IMPRESSION: Stable examination demonstrating no acute pulmonary pathology. Assessment and Plan (1) Atrial fibrillation with rapid ventricular response: Status: Acute (2) Essential hypertension: Status: Acute High sensitivity troponins are normal range. Cardiac BNP is elevated to 704. Her sodium levels are quite low. Unclear etiology. We can resume her flecainide and give her 150 mg b.i.d. and see if she will convert. Continue anticoagulation. Continue beta-blockers. Echocardiogram. We will follow up with you.
--- NOTE | 2020-11-18 12:39 | HO.PM.IMPN ---
Subjective Subjective Date of Service: 11/18/20 Interval History: sob Cardiovascular Cardiovascular: Reports no additional cardiovascular complaints Respiratory Respiratory: Reports no additional respiratory complaints Physical Exam Vital Signs: Vital Signs: Last Vital Signs Temp 97.8 F 11/17/20 22:19 Pulse 106 H 11/18/20 12:00 Resp 20 11/18/20 12:00 BP 152/93 H 11/18/20 12:00 Pulse Ox 93 11/18/20 12:00 Body Mass Index 42.3 General: AO X 3, no acute distress Resp: CTA b/l CVS: S1,S2,RRR GI: soft, non tender, non distended Neuro: motor grossly intact Psych: appropriate affect Objective Data Current Medications Generic Name Dose Route Start Last Admin Trade Name Freq PRN Reason Stop Dose Admin Acetaminophen 650 mg 11/17/20 23:10 11/18/20 08:13 Acetaminophen 325 Mg Tablet PO 650 mg Q6H PRN Administration Pain, Mild (Pain Scale 1-3) Apixaban 5 mg 11/18/20 09:00 11/18/20 10:06 Apixaban 5 Mg Tablet PO 5 mg BID [facility] Administration Atorvastatin Calcium 10 mg 11/18/20 21:00 Atorvastatin Calcium 10 Mg Tablet PO BEDTIME [facility] Flecainide Acetate 150 mg 11/18/20 11:00 Flecainide Acetate 50 Mg Tablet PO BID [facility] Furosemide 40 mg 11/18/20 11:00 Furosemide 40 Mg/4 Ml Vial IVPUSH BID@0900,1800 [facility] Protocol Lorazepam 1 mg 11/18/20 08:57 Lorazepam 1 Mg Tablet PO BID PRN Anxiety Metoprolol Tartrate 75 mg 11/18/20 21:00 Metoprolol Tartrate 50 Mg Tablet PO BID [facility] Protocol Omeprazole 20 mg 11/18/20 09:00 11/18/20 10:06 Omeprazole 20 Mg Capsule.Dr PO 20 mg BID [facility] Administration Senna 17.2 mg 11/17/20 23:10 Sennosides 8.6 Mg Tablet PO BEDTIME PRN Constipation Sodium Chloride 3 ml 11/18/20 00:00 11/18/20 09:24 0.9 % Sodium Chloride Flush 3 Ml Syringe IVFLUSH Not Given QSHIFT [facility] Labs CBC & Chem 7: 11/18/20 06:52 11/18/20 06:52 Assessment and Plan (1) Atrial fibrillation with rapid ventricular response: Status: Acute Assessment and Plan: 75F presented with sob shortness of breath acute chf unspecified iv lasix, echo hyponatremia reports drinking 4-5 16oz cups of water per day, ?insufficient solute intake, also drinks ETOH daily. 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
[2020-11-18 12:40] LABS: Glucose Urine UA NEG (NEG); Leukocyte Esterase Urine 1+ (NEG); Nitrite Urine NEG (NEG); Specific Gravity - Urine 1.025 (1.005-1.025); UACC Culture Trigger YES; Urine Blood NEG (NEG); Urine Ketones 5 MG/DL (NEG); Urine Protein NEG (NEG-TRACE)
[2020-11-18 12:46] LABS: Appearance Urine HAZY; Color Urine YELLOW
[2020-11-18 12:51] LABS: Mucus Urine TRACE /LPF; RBC Urine 0-2 /HPF (0); Squamous Epithelial Cell Urine 1+ /LPF
[2020-11-18] MEDS: Furosemide 40 MG/4 ML VIAL IVPUSH ×2 (13:10→17:17)
[2020-11-18] MEDS: Metoprolol Tartrate 25 MG TABLET PO (13:10)
[2020-11-18] MEDS: Flecainide Acetate 50 MG TABLET 150 MG PO ×2 (13:11→21:57)
[2020-11-18 13:41] LABS: Uric Acid Urine Random 43.2 mg/dL
[2020-11-18 13:59] LABS: Osmolality Urine 513 mosm/kg (373-1093)
[2020-11-18 15:09] LABS: Anion Gap 13 (12-20); Blood Urea Nitrogen 8 mg/dL (9-16); Calcium 8.6 mg/dL (8.4-10.2); Carbon Dioxide 29 mmol/L (22-29); Chloride 82 mmol/L (96-108); Creatinine Clr Calc Pharmacy 99.6; Estimated Glomerular Filt Rate > 60; Glucose Random 145 mg/dL (60-115); Sodium 120 mmol/L (135-145)
--- NOTE | 2020-11-18 15:36 | PC.NURSE ---
hospitalists office contacted for critical low sodium. in office took critical.
[2020-11-18 18:17] LABS: Uric Acid 2.7 mg/dL (2.4-5.7)
--- NOTE | 2020-11-18 18:30 | PC.NURSE ---
called attempted to give report. juli waite will be on shift at 1900 and able to take the patient.
--- NOTE | 2020-11-18 19:55 | PM.CNNEP ---
History of Present Illness Reason for Consult Consult date: 11/18/20 Reason for consult: hyponatremia Chief Complaint Chief complaint: Hyponatremia History of Present Illness Narrative: Pt seen and evaluated and labs reviewed thru out the day. Adm with gen maliase, HTN, Aficb w RVR and unexpectedly svere HypoNa with Sna 119. 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 She has no prior history of hypoNa per PT, she is not on HCTZ, she doea admit to drinking lots of fluids, deneis NSAIDs On/off SOB Review of Systems Review of Systems Pertinent positives and negatives as stated in HPI 10 point review of systems is otherwise negative. Yes all other systems are reviewed and are negative Cardiovascular: Reports as per HPI, Reports no additional cardiovascular complaints, Denies acrocyanosis, Denies cool extremities, Denies painful fingertips, Reports chest pain, Denies chest pain at rest, Denies diaphoresis, Denies syncope, Denies irregular heart rhythm, Denies claudication, Denies leg edema, Denies lightheadedness, Denies palpitations and Reports dyspnea Respiratory: Reports no additional respiratory complaints and Reports dyspnea Denies syncope Endocrine: Denies palpitations PMFSH Past Medical History Medical History (Updated 11/18/20 @ 10:28 by Vladislav Cervantes MD) Afib Essential hypertension HTN (hypertension) Myocardial infarct Throat cancer Family History Pertinent family history: No significant cardiac history in family. Family history: reviewed and not pertinent Social History Social History (Updated 11/18/20 @ 10:57 by Sherif Deluca MD) Alcohol intake: current Alcohol type: beer and hard liquor Smoking Status: Never smoker Use of substances other than those prescribed or required for medical reasons: No Advance Directives: No Advance Directives Information Provided: Yes service: No Current occupational status: retired Meds Allergies Allergy/AdvReac Type Severity Reaction Status Date / Time SEASONAL ALLERGIES Allergy Unknown SNEEZING Uncoded 04/23/20 15:17 RUNNY NOSE Active Medications: Current Medications Generic Name Dose Route Start Last Admin Trade Name Freq PRN Reason Stop Dose Admin Acetaminophen 650 mg 11/17/20 23:10 11/18/20 08:13 Acetaminophen 325 Mg Tablet PO 650 mg Q6H PRN Administration Pain, Mild (Pain Scale 1-3) Apixaban 5 mg 11/18/20 09:00 11/18/20 10:06 Apixaban 5 Mg Tablet PO 5 mg BID DEE Administration Atorvastatin Calcium 10 mg 11/18/20 21:00 Atorvastatin Calcium 10 Mg Tablet PO BEDTIME [facility] Flecainide Acetate 150 mg 11/18/20 11:00 11/18/20 13:11 Flecainide Acetate 50 Mg Tablet PO 150 mg BID DEE Administration Furosemide 40 mg 11/18/20 11:00 11/18/20 17:17 Furosemide 40 Mg/4 Ml Vial IVPUSH 40 mg BID@0900,1800 [facility] Administration Protocol Lorazepam 1 mg 11/18/20 08:57 Lorazepam 1 Mg Tablet PO BID PRN Anxiety Metoprolol Tartrate 75 mg 11/18/20 21:00 Metoprolol Tartrate 50 Mg Tablet PO BID [facility] Protocol Omeprazole 20 mg 11/18/20 09:00 11/18/20 10:06 Omeprazole 20 Mg Capsule.Dr PO 20 mg BID [facility] Administration Senna 17.2 mg 11/17/20 23:10 Sennosides 8.6 Mg Tablet PO BEDTIME PRN Constipation Sodium Chloride 3 ml 11/18/20 00:00 11/18/20 15:38 0.9 % Sodium Chloride Flush 3 Ml Syringe IVFLUSH 3 ml QSHIFT [facility] Administration Home Medications Medication Instructions Recorded Confirmed Last Taken Type flecainide 1 tab PO BID 11/18/20 11/18/20 Unknown History lorazepam 1 tab PO BID PRN 11/18/20 11/18/20 Unknown History metoprolol tartrate 1 tab PO BID 11/18/20 11/18/20 Unknown History omeprazole 1 cap PO BID 11/18/20 11/18/20 Unknown History simvastatin 1 tab PO DAILY 11/18/20 11/18/20 Unknown History Physical Exam Vital Signs: Last Vital Signs Temp 97.8 F 11/17/20 22:19 Pulse 102 H 11/18/20 14:20 Resp 16 11/18/20 14:20 BP 149/90 H 11/18/20 14:20 Pulse Ox 95 11/18/20 14:20 Body Mass Index 42.3 Const General: cooperative, comfortable and no acute distress Orientation/consciousness: patient oriented x3 HENMT Other: Unremarkable Neck Neck: Yes normal visual inspection Chest Chest palpation & inspection: normal inspection of the chest Resp Auscultation: clear to auscultation bilaterally, no crackles and no wheezes Cardio Jugular venous distension: no JVD Palpation: normal PMI Heart sounds: S1 normal heart sound present, S2 normal heart sound present, no gallops, no murmurs and no rubs GI Palpation (GI): Soft to palpation Back/Spine/Pelvis Other: unremarkable Skin General skin exam: no rashes or lesions noted Neuro General: patient oriented x3 Extrem General: Yes no clubbing, cyanosis or edema Psych Mental Status: mental status grossly normal Results Lab Results Result Diagrams: 11/18/20 06:52 11/18/20 13:56 Lab results: Chemistry 11/17/20 11/18/20 11/18/20 22:05 00:42 06:52 Sodium 119 L* 120 L* 121 L Potassium 4.0 3.9 3.7 Carbon Dioxide 28 29 27 BUN 10 10 8 L Creatinine 0.62 0.60 0.61 Calcium 8.1 L 8.4 8.5 11/18/20 13:56 Sodium 120 L* Potassium 4.0 Carbon Dioxide 29 BUN 8 L Creatinine 0.66 Calcium 8.6 Hematology 11/17/20 11/18/20 22:05 06:52 WBC 12.2 H 14.0 H Hgb 12.9 13.2 Plt Count 233 248 Urinalysis 11/18/20 12:23 Urine Color YELLOW Urine Appearance HAZY Urine pH 6.0 Ur Specific [place] 1.025 Urine Protein NEG Urine Glucose (UA) NEG Urine Ketones 5 Urine Blood NEG Urine Nitrite NEG Ur Leukocyte Esterase 1+ H Urine RBC 0-2 Urine WBC 10-14 H Ur Squamous Epith Cells 1+ Urine Studies 11/18/20 12:23 Urine Osmolality 513 Assessment and Plan (1) Atrial fibrillation with rapid ventricular response: Status: Acute 1. Euvolemic HypoNa: w/u c/w SIADH based on Uosm >>Robinson, incr Oneil and low UAL Not on any meds typically assoc with SIADH Hypothyroid r/o adrenal insuff being r/o h/o throat Ca is concerning for CA assoc SIADH and will need head CT to r/o ESCROW OFFICER assoc SAIDH; CXR neg but will need to get CT of chest as well to r/o pulm cause of SIADH REC: cont freq SNa levels as need to gradually correct SNa by no more than 6 to 8 meq icnr over 24 hrs; track UOP to watch for spont rapid self correction; cont PO fluid restriciton; Urea x 1 today and then reassess; cehck Serum osm; Chest and Head CT will follow closely with team
--- NOTE | 2020-11-18 19:55 | PC.NURSE ---
attempted to give report to floor. RN unavailable/refuses. Will attempt to give report again in 15 minutes
[2020-11-18 21:20] LABS: Osmolality, Serum 260 mosm/kg (281-305)
[2020-11-18] MEDS: ondansetron HCL 4 MG/2 ML VIAL IVPUSH (21:25)
[2020-11-18 21:44] LABS: Anion Gap 16 (12-20); Blood Urea Nitrogen 8 mg/dL (9-16); Calcium 8.4 mg/dL (8.4-10.2); Carbon Dioxide 33 mmol/L (22-29); Chloride 74 mmol/L (96-108); Creatinine Clr Calc Pharmacy 99.6; Estimated Glomerular Filt Rate > 60; Glucose Fasting 195 mg/dL (60-99); Potassium 3.2 mmol/L (3.3-5.1); Sodium 120 mmol/L (135-145)
[2020-11-18] MEDS: Urea 15 GM POWDER PO (21:56)
[2020-11-18] MEDS: Atorvastatin Calcium 10 MG TABLET PO (21:58)
[2020-11-18] MEDS: Metoprolol Tartrate 50 MG TABLET 75 MG PO (21:58)
[2020-11-18] MEDS: Metoclopramide HCl 10 MG/2 ML VIAL 5 MG IVPUSH (22:46)
[2020-11-19] VITALS (8 sets, daily range): BP systolic 109–149; BP diastolic 73–91; PULSE 79–117; RESP 18–20; TEMP 36.3–37.2; O2SAT 90–93
[2020-11-19] MEDS: LORazepam 1 MG TABLET PO (00:02)
[2020-11-19] MEDS: 0.9 % Sodium Chloride Flush 3 ML SYRINGE IVFLUSH ×3 (00:03→16:47)
[2020-11-19 02:35] LABS: Anion Gap 15 (12-20); Carbon Dioxide 33 mmol/L (22-29); Chloride 75 mmol/L (96-108); Potassium 3.2 mmol/L (3.3-5.1); Sodium 120 mmol/L (135-145)
[2020-11-19 06:26] LABS: Basophils Percent Auto 0.1 % (0-2); Eosinophils Percent Auto 0.1 % (0-4); Hematocrit 35.8 % (37-47); Hemoglobin 12.5 g/dl (12.0-16.0); Imm Gran Abs Auto 0.05 X10*3/uL (0.00-0.03); Imm Gran Pct Auto 0.4 % (0.0-0.4); Lymphocytes Absolute Auto 0.9 X10*3/uL (1.2-4.9); MANUAL DIFF FLAG NO; Mean Corpuscular HGB Conc 34.9 g/dl (31.0-35.0); Mean Corpuscular Hemoglobin 32.6 pg (27.0-33.0); Mean Corpuscular Volume 93.2 fL (80-98); Mean Platelet Volume 9.4 fL (9.4-12.3); Monocytes Absolute Auto 0.9 X10*3/uL (0.1-1.2); Monocytes Percent Auto 7.3 % (2-11); Neutrophils Absolute Auto 9.8 X10*3/uL (2.0-8.3); Neutrophils Percent Auto 84.1 % (45-73); Platelet Count 237 X10*3/uL (160-400); Red Blood Count 3.84 X10*6/uL (4.20-5.50); Red Cell Distribution Width 12.8 % (11.0-16.0); White Blood Count 11.7 X10*3/uL (4.8-10.8)
[2020-11-19 07:16] LABS: Anion Gap 14 (12-20); Blood Urea Nitrogen 16 mg/dL (9-16); Calcium 8.1 mg/dL (8.4-10.2); Carbon Dioxide 33 mmol/L (22-29); Chloride 76 mmol/L (96-108); Creatinine Clr Calc Pharmacy 111.4; Estimated Glomerular Filt Rate > 60; Glucose Fasting 107 mg/dL (60-99); Magnesium 1.4 mg/dL (1.6-2.6); Potassium 3.1 mmol/L (3.3-5.1); Sodium 120 mmol/L (135-145)
[2020-11-19] MEDS: Flecainide Acetate 50 MG TABLET 150 MG PO ×2 (08:30→20:46)
[2020-11-19] MEDS: Apixaban 5 MG TABLET PO ×2 (08:30→20:46)
[2020-11-19] MEDS: Metoprolol Tartrate 50 MG TABLET 75 MG PO ×2 (08:30→20:45)
[2020-11-19] MEDS: Omeprazole 20 MG CAPSULE.DR PO ×2 (08:30→16:46)
[2020-11-19] MEDS: Magnesium Oxide 400 MG TABLET PO ×2 (08:30→16:46)
[2020-11-19] MEDS: Furosemide 40 MG/4 ML VIAL IVPUSH (08:31)
[2020-11-19 08:48] LABS: Anion Gap 13 (12-20); Carbon Dioxide 37 mmol/L (22-29); Chloride 74 mmol/L (96-108); Potassium 3.3 mmol/L (3.3-5.1); Sodium 121 mmol/L (135-145)
[2020-11-19] MEDS: Urea 15 GM POWDER 30 GM PO ×2 (09:23→20:45)
--- NOTE | 2020-11-19 10:46 | PM.PNCARD ---
Subjective Subjective Date of Service: 11/19/20 Interval history: She states that she feels okay. No specific complaints at this time. Review of Systems Review of Systems Yes all other systems are reviewed and are negative Cardiovascular: Reports as per HPI, Reports no additional cardiovascular complaints, Denies acrocyanosis, Denies cool extremities, Denies painful fingertips, Reports chest pain, Denies chest pain at rest, Denies diaphoresis, Denies syncope, Denies irregular heart rhythm, Denies claudication, Denies leg edema, Denies lightheadedness, Denies palpitations and Reports dyspnea Respiratory: Reports dyspnea Denies syncope Endocrine: Denies palpitations Physical Exam Vital Signs: Last Vital Signs Temp 98.3 F 11/19/20 07:31 Pulse 98 11/19/20 08:30 Resp 20 11/19/20 07:31 BP 109/73 11/19/20 08:30 Pulse Ox 90 L 11/19/20 07:31 Body Mass Index 42.3 Const General: cooperative, comfortable and no acute distress Orientation/consciousness: patient oriented x3 HENMT Other: Unremarkable Neck Neck: Yes normal visual inspection Chest Chest palpation & inspection: normal inspection of the chest Resp Auscultation: clear to auscultation bilaterally, no crackles and no wheezes Cardio Jugular venous distension: no JVD Palpation: normal PMI Heart sounds: S1 normal heart sound present, S2 normal heart sound present, no gallops, no murmurs and no rubs GI Palpation (GI): Soft to palpation Back/Spine/Pelvis Other: unremarkable Skin General skin exam: no rashes or lesions noted Neuro General: patient oriented x3 Extrem General: Yes no clubbing, cyanosis or edema Psych Mental Status: mental status grossly normal Results Labs and Meds Result diagrams: 11/19/20 05:25 11/19/20 07:40 Lab results: Laboratory Results - last 24 hr 11/18/20 11/18/20 11/18/20 06:52 12:23 12:23 WBC RBC Hgb Hct MCV MCH MCHC RDW Plt Count MPV Immature Gran % (Auto) Neut % (Auto) Lymph % (Auto) [place] % (Auto) Eos % (Auto) Baso % (Auto) Lymph # (Auto) [place] # (Auto) Eos # (Auto) Baso # (Auto) Abs Immat Gran (auto) Absolute Neuts (auto) Absolute Nucleated RBC Nucleated RBC % (auto) Sodium Potassium Chloride Carbon Dioxide Anion Gap BUN Creatinine Estim Creat Clear Calc Estimated GFR Random Glucose Fasting Glucose Osmolality Uric Acid Calcium Magnesium Cortisol 29.6 H Urine Color YELLOW Urine Appearance HAZY Urine pH 6.0 Ur Specific [place] 1.025 Urine Protein NEG Urine Glucose (UA) NEG Urine Ketones 5 Urine Blood NEG Urine Nitrite NEG Ur Leukocyte Esterase 1+ H Urine RBC 0-2 Urine WBC 10-14 H Ur Squamous Epith Cells 1+ Urine Bacteria NONE Urine Mucus TRACE Urine Osmolality 513 Ur Random Sodium Ur Random Uric Acid 11/18/20 11/18/20 11/18/20 12:23 12:23 13:56 WBC RBC Hgb Hct MCV MCH MCHC RDW Plt Count MPV Immature Gran % (Auto) Neut % (Auto) Lymph % (Auto) [place] % (Auto) Eos % (Auto) Baso % (Auto) Lymph # (Auto) [place] # (Auto) Eos # (Auto) Baso # (Auto) Abs Immat Gran (auto) Absolute Neuts (auto) Absolute Nucleated RBC Nucleated RBC % (auto) Sodium 120 L* Potassium 4.0 Chloride 82 L Carbon Dioxide 29 Anion Gap 13 BUN 8 L Creatinine 0.66 Estim Creat Clear Calc 99.6 Estimated GFR > 60 Random Glucose 145 H Fasting Glucose Osmolality Uric Acid 2.7 Calcium 8.6 Magnesium Cortisol Urine Color Urine Appearance Urine pH Ur Specific [place] Urine Protein Urine Glucose (UA) Urine Ketones Urine Blood Urine Nitrite Ur Leukocyte Esterase Urine RBC Urine WBC Ur Squamous Epith Cells Urine Bacteria Urine Mucus Urine Osmolality Ur Random Sodium 73.0 Ur Random Uric Acid 43.2 11/18/20 11/18/20 11/18/20 20:55 20:55 20:55 WBC RBC Hgb Hct MCV MCH MCHC RDW Plt Count MPV Immature Gran % (Auto) Neut % (Auto) Lymph % (Auto) [place] % (Auto) Eos % (Auto) Baso % (Auto) Lymph # (Auto) [place] # (Auto) Eos # (Auto) Baso # (Auto) Abs Immat Gran (auto) Absolute Neuts (auto) Absolute Nucleated RBC Nucleated RBC % (auto) Sodium 120 L* Cancelled Potassium 3.2 L Cancelled Chloride 74 L Cancelled Carbon Dioxide 33 H Cancelled Anion Gap 16 Cancelled BUN 8 L Creatinine 0.66 Estim Creat Clear Calc 99.6 Estimated GFR > 60 Random Glucose Fasting Glucose 195 H Osmolality 260 L Uric Acid Calcium 8.4 Magnesium Cortisol Urine Color Urine Appearance Urine pH Ur Specific [place] Urine Protein Urine Glucose (UA) Urine Ketones Urine Blood Urine Nitrite Ur Leukocyte Esterase Urine RBC Urine WBC Ur Squamous Epith Cells Urine Bacteria Urine Mucus Urine Osmolality Ur Random Sodium Ur Random Uric Acid 11/19/20 11/19/20 11/19/20 01:45 05:25 05:25 WBC 11.7 H RBC 3.84 L Hgb 12.5 Hct 35.8 L MCV 93.2 MCH 32.6 MCHC 34.9 RDW 12.8 Plt Count 237 MPV 9.4 Immature Gran % (Auto) 0.4 Neut % (Auto) 84.1 H Lymph % (Auto) 8.0 L [place] % (Auto) 7.3 Eos % (Auto) 0.1 Baso % (Auto) 0.1 Lymph # (Auto) 0.9 L [place] # (Auto) 0.9 Eos # (Auto) 0.0 Baso # (Auto) 0.0 Abs Immat Gran (auto) 0.05 H Absolute Neuts (auto) 9.8 H Absolute Nucleated RBC 0.000 Nucleated RBC % (auto) 0.0 Sodium 120 L* 120 L* Potassium 3.2 L 3.1 L Chloride 75 L 76 L Carbon Dioxide 33 H 33 H Anion Gap 15 14 BUN 16 D Creatinine 0.59 Estim Creat Clear Calc 111.4 Estimated GFR > 60 Random Glucose Fasting Glucose 107 H D Osmolality Uric Acid Calcium 8.1 L Magnesium 1.4 L* Cortisol Urine Color Urine Appearance Urine pH Ur Specific [place] Urine Protein Urine Glucose (UA) Urine Ketones Urine Blood Urine Nitrite Ur Leukocyte Esterase Urine RBC Urine WBC Ur Squamous Epith Cells Urine Bacteria Urine Mucus Urine Osmolality Ur Random Sodium Ur Random Uric Acid 11/19/20 07:40 WBC RBC Hgb Hct MCV MCH MCHC RDW Plt Count MPV Immature Gran % (Auto) Neut % (Auto) Lymph % (Auto) [place] % (Auto) Eos % (Auto) Baso % (Auto) Lymph # (Auto) [place] # (Auto) Eos # (Auto) Baso # (Auto) Abs Immat Gran (auto) Absolute Neuts (auto) Absolute Nucleated RBC Nucleated RBC % (auto) Sodium 121 L Potassium 3.3 Chloride 74 L Carbon Dioxide 37 H Anion Gap 13 BUN Creatinine Estim Creat Clear Calc Estimated GFR Random Glucose Fasting Glucose Osmolality Uric Acid Calcium Magnesium Cortisol Urine Color Urine Appearance Urine pH Ur Specific [place] Urine Protein Urine Glucose (UA) Urine Ketones Urine Blood Urine Nitrite Ur Leukocyte Esterase Urine RBC Urine WBC Ur Squamous Epith Cells Urine Bacteria Urine Mucus Urine Osmolality Ur Random Sodium Ur Random Uric Acid Progress Note: A&P Assessment and plan (1) Atrial fibrillation with rapid ventricular response: Status: Acute (2) Essential hypertension: Status: Acute Assessment and Plan: High sensitivity troponins are normal range. Cardiac BNP is elevated to 704. Her sodium levels are quite low. Magnesium is low. We can do flecainide 150 mg b.i.d.. Home beta-sandro dosing. Continue anticoagulation. Probably a cardioversion once her electrolytes are normalized. To be decided if in versus outpatient. Fall Risk Details Current Medications: Current Medications Generic Name Dose Route Start Last Admin Trade Name Freq PRN Reason Stop Dose Admin Acetaminophen 650 mg 11/17/20 23:10 11/18/20 08:13 Acetaminophen 325 Mg Tablet PO 650 mg Q6H PRN Administration Pain, Mild (Pain Scale 1-3) Apixaban 5 mg 11/18/20 09:00 11/19/20 08:30 Apixaban 5 Mg Tablet PO 5 mg BID DEE Administration Atorvastatin Calcium 10 mg 11/18/20 21:00 11/18/20 21:58 Atorvastatin Calcium 10 Mg Tablet PO 10 mg BEDTIME DEE Administration Flecainide Acetate 150 mg 11/18/20 11:00 11/19/20 08:30 Flecainide Acetate 50 Mg Tablet PO 150 mg BID DEE Administration Lorazepam 1 mg 11/18/20 08:57 11/19/20 00:02 Lorazepam 1 Mg Tablet PO 1 mg BID PRN Administration Anxiety Magnesium Oxide 400 mg 11/19/20 08:30 11/19/20 08:30 Magnesium Oxide 400 Mg Tablet PO 400 mg BIDPC DEE Administration Metoprolol Tartrate 75 mg 11/18/20 21:00 11/19/20 08:30 Metoprolol Tartrate 50 Mg Tablet PO 75 mg BID DEE Administration Protocol Omeprazole 20 mg 11/19/20 16:30 Omeprazole 20 Mg Capsule. PO BID@0630,1630 DEE Senna 17.2 mg 11/17/20 23:10 Sennosides 8.6 Mg Tablet PO BEDTIME PRN Constipation Sodium Chloride 3 ml 11/18/20 00:00 11/19/20 08:31 0.9 % Sodium Chloride Flush 3 Ml Syringe IVFLUSH 3 ml QSHIFT DEE Administration Sodium Chloride 1 gm 11/19/20 15:00 Sodium Chloride Tab 1 Gm Tablet PO TID DEE Urea 30 gm 11/19/20 09:45 11/19/20 10:38 Urea 15 Gm Powder PO Not Given Q12H DEE Time Spent With Patient Time: Total time spent is greater than 50% in coordination of care (as documented) at patient's floor/unit and/or counseling patient: Time with patient: less than 15 minutes
--- NOTE | 2020-11-19 12:00 | CA_ITS ---
Transthoracic Echocardiogram Patient (Last, First, Middle): Lucia Ch C Gender: Female Date of : 1945 Age: 75 Procedure Date: 11/19/2020 Procedure Type: Transthoracic Echocardiogram Location: [facility] – [place] Height: 167.64 cm Weight: 118.84 kg BSA: 2.24 m2 Heart Rate: bpm BP: 184 / 78 mmHg Submarine Element Coordinator: SLIME Referring MD: Micheal Dennis MD Symptoms: dyspnea Study Quality: Technically Difficult/contrast ECG Rhythm: Atrial Fibrillation Conclusions: - The left ventricular systolic function is normal. The visually estimated ejection fraction is between 60-65%. - No obvious valvular pathology seen on this study. - Mild pulmonary hypertension is present. Findings Procedure Information Contrast agent, definity, is being given per protocol without apparent complications. Left Ventricle Normal left ventricular cavity size. There is mildly increased left ventricular wall thickness. The left ventricular systolic function is normal. The visually estimated ejection fraction is between 60-65%. There is no evidence of regional wall motion abnormalities. Diastolic function is indeterminate on the basis of available data. Right Ventricle Normal right ventricular cavity size. There is mildly decreased right ventricular systolic function. Atria Both atria are normal in size. Aortic Valve The aortic valve was not well visualized. There is no aortic valve stenosis. There is no aortic valve regurgitation. Mitral Valve The mitral valve appears normal. There is trace mitral valve regurgitation. There is no mitral valve stenosis. Pulmonic Valve The pulmonic valve was not well visualized. Tricuspid Valve The tricuspid valve was not well visualized. There is trace tricuspid valve regurgitation. The right ventricular systolic pressure is 41 mmHg. Mild pulmonary hypertension is present. Great Vessels The aortic annulus, sinuses of valsalva, and asc aorta are normal in size. Venous The inferior vena cava is dilated and collapses less than 50% with inspiration. Pericardium/Pleural There is no evidence of pericardial effusion. Prior Study Comparison No significant change compared to prior study dated: 05/29/2019. Recommendations, Care & Conclusions No obvious valvular pathology seen on this study. Measurements 2D Linear Measurements IVSd: 1.27 0.6-0.9/0.6-1.0 cm LVIDd: 3.95 3.9-5.3/4.2-5.9 cm LVIDd Index: 1.76 2.4-3.2/2.2-3.1 cm/m2 LVIDs: 2.66 2.0-3.6 cm LVPWd: 1.28 0.7-1.1 cm Ao Root: 3.10 2.1-3.5 cm LA Diam: 3.80 2.7-3.8/3.0-4.0 cm LAIDs Index: 1.70 1.5-2.3 cm/m2 LV Mass: 221.51 67-162/88-224 g LV Mass Index: 98.89 43-95/49-115 g/m2 LVOT Diam: 2.00 3.0+(-)1.3 cm Aortic Valve AoV Pk Christiano: 1.35 AoV Mn Christiano: 0.87 AoV VTI: 0.26 AoV Pk Grad: 7.00 Aov Mn Grad: 4.00 LORENA Cont.VTI: 2.70 LVOT LVOT Pk Christiano: 1.20 LVOT Mn Christiano: 0.85 LVOT VTI: 0.22 LVOT Pk Grad: 6.00 LVOT Mn Grad: 3.00 LVOT Diam: 2.00 LVOT Area: 3.14 Tricuspid Valve TR Pk Christiano: 2.55 TR Pk Grad: 26.00 RA Press: 15.00 RVSP: 41.00 Great Vessels Aorta Ao Root-2D: 3.10 2.0-3.7 cm Ao Asc: 3.20 2.1-3.4 cm Ao Arch: 3.00 Updated in Other Vendor System with Status of Final Vladislav Cervantes MD electronically signed on 11/19/2020 3:26:52 PM with status of Final
--- NOTE | 2020-11-19 12:35 | HO.MIDLINE ---
PICC Line Insertion MIDLINE INSERTION Technique: Using sterile technique including cap and mask, glove and drape, the RIGHT arm was prepped and draped in the usual sterile fashion of full barrier technique with G. Using ultrasound guidance, CEPHALIC vein access was obtained IN SINGLE ATTEMPT BY THIS RN. A (20G x 8CM), SINGLE LUMEN, NON-PASV line was positioned. The procedure was performed in [place] [id number]. Ultrasound was used to document vein patency and for needle entry. A formal ultrasound picture was recorded. [employer] has released the line for use and it is currently dressed with a StatLock, Tegaderm, and CHG disc. Verification has been performed for blood return and line patency. Arm Circumference: 37 CM Equipment: [employer] MOD POWERGLIDE PRO MIDLINE Catheter Type: 20G x 8CM, SINGLE LUMEN, NONPASV Lot #: [id number]
--- NOTE | 2020-11-19 12:40 | HO.PM.IMPN ---
Subjective Subjective Date of Service: 11/19/20 Interval History: sob improved Cardiovascular Cardiovascular: Reports no additional cardiovascular complaints Gastrointestinal Gastrointestinal: Reports no additional gastrointestinal complaints Physical Exam Vital Signs: Vital Signs: Last Vital Signs Temp 98.8 F 11/19/20 11:46 Pulse 79 11/19/20 11:46 Resp 18 11/19/20 11:46 BP 120/83 11/19/20 11:46 Pulse Ox 93 11/19/20 11:46 Body Mass Index 42.3 General: AO X 3, no acute distress Resp: CTA b/l CVS: S1,S2,RRR GI: soft, non tender, non distended Neuro: motor grossly intact Psych: appropriate affect Objective Data Current Medications Generic Name Dose Route Start Last Admin Trade Name Freq PRN Reason Stop Dose Admin Acetaminophen 650 mg 11/17/20 23:10 11/18/20 08:13 Acetaminophen 325 Mg Tablet PO 650 mg Q6H PRN Administration Pain, Mild (Pain Scale 1-3) Apixaban 5 mg 11/18/20 09:00 11/19/20 08:30 Apixaban 5 Mg Tablet PO 5 mg BID DEE Administration Atorvastatin Calcium 10 mg 11/18/20 21:00 11/18/20 21:58 Atorvastatin Calcium 10 Mg Tablet PO 10 mg BEDTIME DEE Administration Heparin Sodium (Porcine) 50 0 units 11/19/20 15:00 units/ Sodium Chloride 5 ml IVFLUSH TID DEE Flecainide Acetate 150 mg 11/18/20 11:00 11/19/20 08:30 Flecainide Acetate 50 Mg Tablet PO 150 mg BID DEE Administration Lorazepam 1 mg 11/18/20 08:57 11/19/20 00:02 Lorazepam 1 Mg Tablet PO 1 mg BID PRN Administration Anxiety Magnesium Oxide 400 mg 11/19/20 08:30 11/19/20 08:30 Magnesium Oxide 400 Mg Tablet PO 400 mg BIDPC DEE Administration Metoprolol Tartrate 75 mg 11/18/20 21:00 11/19/20 08:30 Metoprolol Tartrate 50 Mg Tablet PO 75 mg BID EDE Administration Protocol Omeprazole 20 mg 11/19/20 16:30 Omeprazole 20 Mg Capsule.Dr PO BID@0630,1630 DEE Senna 17.2 mg 11/17/20 23:10 Sennosides 8.6 Mg Tablet PO BEDTIME PRN Constipation Sodium Chloride 3 ml 11/18/20 00:00 11/19/20 08:31 0.9 % Sodium Chloride Flush 3 Ml Syringe IVFLUSH 3 ml QSHIFT DEE Administration Sodium Chloride 1 gm 11/19/20 15:00 Sodium Chloride Tab 1 Gm Tablet PO TID [facility] Urea 30 gm 11/19/20 09:45 11/19/20 10:38 Urea 15 Gm Powder PO Not Given Q12H DEE Labs CBC & Chem 7: 11/19/20 05:25 11/19/20 07:40 Microbiology Microbiology Results: Microbiology 11/18/20 Unknown Urine clean catch - Clean Catch Midstream Urine Culture - Final 11/18/20 00:42 Blood - Venous Blood Culture - Preliminary No growth after 24 hours. 11/17/20 22:18 Blood - Venous Blood Culture - Preliminary No growth after 24 hours. Assessment and Plan (1) Atrial fibrillation with rapid ventricular response: Status: Acute Assessment and Plan: 75F presented with sob shortness of breath acute chf unspecified improved, follow up echo hyponatremia urine labs consistent with SIADH urea, salt tablets, fluid restrict, close monitoring of bmp CT chest, CTH, neck, ? malignant ADH nephro floowing etoh dependence no signs of withrdawl at this time, CIWA afib rvr flecainide, lopressor, eliquis
[2020-11-19 12:55] LABS: Anion Gap 16 (12-20); Blood Urea Nitrogen 37 mg/dL (9-16); Calcium 8.5 mg/dL (8.4-10.2); Carbon Dioxide 35 mmol/L (22-29); Chloride 73 mmol/L (96-108); Creatinine Clr Calc Pharmacy 109.7; Estimated Glomerular Filt Rate > 60; Glucose Random 113 mg/dL (60-115); Sodium 121 mmol/L (135-145)
[2020-11-19] MEDS: Potassium Chloride ER 20 MEQ TAB.ER.PRT 40 MEQ PO (14:01)
[2020-11-19] MEDS: Sodium Chloride Tab 1 GM TABLET PO ×2 (14:05→20:46)
[2020-11-19] MEDS: Heparin Sodium,Porcine Flush 50 UNITS, 0.9 % Sodium Chloride Flush 5 ML IVFLUSH ×2 (14:11→20:52)
--- NOTE | 2020-11-19 17:50 | PM.PNNEP ---
Subjective Subjective Date of Service: 11/19/20 Interval history: Seen and examned. 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 She is on NO new meds She does drink alot of fluids routinely because of dry throat SNa has remained 120 depsite IV lasix and PO fluid rest and Po Urea Physical Exam Vital Signs: Vital Signs: Last Vital Signs Temp 98.3 F 11/19/20 15:52 Pulse 117 H 11/19/20 15:52 Resp 19 11/19/20 15:52 BP 110/77 11/19/20 15:52 Pulse Ox 92 11/19/20 15:52 Body Mass Index 42.3 Const: General: cooperative, comfortable and no acute distress Orientation/consciousness: patient oriented x3 HENMT: Other: Unremarkable Neck: Neck: Yes normal visual inspection Chest: Chest palpation & inspection: normal inspection of the chest Resp: Auscultation: clear to auscultation bilaterally, no crackles and no wheezes Cardio: Jugular venous distension: no JVD Palpation: normal PMI Heart sounds: S1 normal heart sound present, S2 normal heart sound present, no gallops, no murmurs and no rubs GI: Palpation (GI): Soft to palpation Back/Spine/Pelvis: Other: unremarkable Skin: General skin exam: no rashes or lesions noted Neuro: General: patient oriented x3 Extrem: General: Yes no clubbing, cyanosis or edema Psych: Mental Status: mental status grossly normal Objective Data Labs CBC & Chem 7: 11/19/20 05:25 11/19/20 11:55 Labs: Laboratory Results - last 24 hr 11/18/20 11/18/20 11/18/20 06:52 13:56 20:55 WBC RBC Hgb Hct MCV MCH MCHC RDW Plt Count MPV Immature Gran % (Auto) Neut % (Auto) Lymph % (Auto) [place] % (Auto) Eos % (Auto) Baso % (Auto) Lymph # (Auto) [place] # (Auto) Eos # (Auto) Baso # (Auto) Abs Immat Gran (auto) Absolute Neuts (auto) Absolute Nucleated RBC Nucleated RBC % (auto) Sodium 120 L* Potassium 3.2 L Chloride 74 L Carbon Dioxide 33 H Anion Gap 16 BUN 8 L Creatinine 0.66 Estim Creat Clear Calc 99.6 Estimated GFR > 60 Random Glucose Fasting Glucose 195 H Osmolality Uric Acid 2.7 Calcium 8.4 Magnesium Cortisol 29.6 H 11/18/20 11/18/20 11/19/20 20:55 20:55 01:45 WBC RBC Hgb Hct MCV MCH MCHC RDW Plt Count MPV Immature Gran % (Auto) Neut % (Auto) Lymph % (Auto) [place] % (Auto) Eos % (Auto) Baso % (Auto) Lymph # (Auto) [place] # (Auto) Eos # (Auto) Baso # (Auto) Abs Immat Gran (auto) Absolute Neuts (auto) Absolute Nucleated RBC Nucleated RBC % (auto) Sodium Cancelled 120 L* Potassium Cancelled 3.2 L Chloride Cancelled 75 L Carbon Dioxide Cancelled 33 H Anion Gap Cancelled 15 BUN Creatinine Estim Creat Clear Calc Estimated GFR Random Glucose Fasting Glucose Osmolality 260 L Uric Acid Calcium Magnesium Cortisol 11/19/20 11/19/20 11/19/20 05:25 05:25 07:40 WBC 11.7 H RBC 3.84 L Hgb 12.5 Hct 35.8 L MCV 93.2 MCH 32.6 MCHC 34.9 RDW 12.8 Plt Count 237 MPV 9.4 Immature Gran % (Auto) 0.4 Neut % (Auto) 84.1 H Lymph % (Auto) 8.0 L [place] % (Auto) 7.3 Eos % (Auto) 0.1 Baso % (Auto) 0.1 Lymph # (Auto) 0.9 L [place] # (Auto) 0.9 Eos # (Auto) 0.0 Baso # (Auto) 0.0 Abs Immat Gran (auto) 0.05 H Absolute Neuts (auto) 9.8 H Absolute Nucleated RBC 0.000 Nucleated RBC % (auto) 0.0 Sodium 120 L* 121 L Potassium 3.1 L 3.3 Chloride 76 L 74 L Carbon Dioxide 33 H 37 H Anion Gap 14 13 BUN 16 D Creatinine 0.59 Estim Creat Clear Calc 111.4 Estimated GFR > 60 Random Glucose Fasting Glucose 107 H D Osmolality Uric Acid Calcium 8.1 L Magnesium 1.4 L* Cortisol 11/19/20 11:55 WBC RBC Hgb Hct MCV MCH MCHC RDW Plt Count MPV Immature Gran % (Auto) Neut % (Auto) Lymph % (Auto) [place] % (Auto) Eos % (Auto) Baso % (Auto) Lymph # (Auto) [place] # (Auto) Eos # (Auto) Baso # (Auto) Abs Immat Gran (auto) Absolute Neuts (auto) Absolute Nucleated RBC Nucleated RBC % (auto) Sodium 121 L Potassium 3.0 L Chloride 73 L Carbon Dioxide 35 H Anion Gap 16 BUN 37 H D Creatinine 0.60 Estim Creat Clear Calc 109.7 Estimated GFR > 60 Random Glucose 113 Fasting Glucose Osmolality Uric Acid Calcium 8.5 Magnesium Cortisol Microbiology Microbiology Results: Microbiology 11/18/20 Unknown Urine clean catch - Clean Catch Midstream Urine Culture - Final 11/18/20 00:42 Blood - Venous Blood Culture - Preliminary No growth after 24 hours. 11/17/20 22:18 Blood - Venous Blood Culture - Preliminary No growth after 24 hours. Assessment & Plan Assessment and plan (1) Atrial fibrillation with rapid ventricular response: Status: Acute Assessment and Plan: 1. Euvolemic HypoNa: w/u c/w SIADH based on Uosm >>[place], incr Oneil and low UAL Not on any meds typically assoc with SIADH Hypothyroid r/o adrenal insuff being r/o h/o throat Ca is concerning for CA assoc SIADH and will need head CT to r/o [employer] assoc SAIDH; CXR neg but will need to get CT of chest as well to r/o pulm cause of SIADH 2. HypoK REC: cautious 3% saline ordered and PO K replacement ( note increasing the K will cause incr in SNa d/t the exchange; cont freq SNa checks to avoid to rapid a correction --goal is no more than 8 stefania /24 hrs; cont with w/u as to cause of SIADH and in particular Brain/lung and neck are suspicoius areas for cause of SAIDH Time Spent With Patient Time: Total time spent is greater than 50% in coordination of care (as documented) at patient's floor/unit and/or counseling patient:
[2020-11-19 19:34] LABS: Anion Gap 14 (12-20); Blood Urea Nitrogen 30 mg/dL (9-16); Calcium 8.5 mg/dL (8.4-10.2); Carbon Dioxide 36 mmol/L (22-29); Chloride 76 mmol/L (96-108); Creatinine Clr Calc Pharmacy 102.6; Estimated Glomerular Filt Rate > 60; Glucose Random 133 mg/dL (60-115); Potassium 3.5 mmol/L (3.3-5.1); Sodium 122 mmol/L (135-145)
[2020-11-19] MEDS: Atorvastatin Calcium 10 MG TABLET PO (20:46)
[2020-11-20] VITALS (10 sets, daily range): BP systolic 126–140; BP diastolic 72–87; PULSE 88–99; RESP 18–20; TEMP 36.2–37; O2SAT 86–99
[2020-11-20] MEDS: Zolpidem Tartrate 5 MG TABLET PO ×2 (00:26→21:32)
[2020-11-20 00:27] LABS: Anion Gap 12 (12-20); Blood Urea Nitrogen 42 mg/dL (9-16); Calcium 8.9 mg/dL (8.4-10.2); Carbon Dioxide 38 mmol/L (22-29); Chloride 77 mmol/L (96-108); Creatinine Clr Calc Pharmacy 99.4; Estimated Glomerular Filt Rate > 60; Glucose Random 161 mg/dL (60-115); Potassium 3.3 mmol/L (3.3-5.1); Sodium 124 mmol/L (135-145)
[2020-11-20] MEDS: 0.9 % Sodium Chloride Flush 3 ML SYRINGE IVFLUSH ×3 (01:18→16:05)
[2020-11-20] MEDS: Potassium Chloride Packet 20 MEQ PACKET PO (03:11)
[2020-11-20] MEDS: Omeprazole 20 MG CAPSULE.DR PO ×2 (05:22→16:05)
[2020-11-20] MEDS: LORazepam 1 MG TABLET PO (05:22)
[2020-11-20 05:51] LABS: MANUAL DIFF FLAG NO
[2020-11-20 05:54] LABS: Basophils Percent Auto 0.2 % (0-2); Eosinophils Percent Auto 0.3 % (0-4); Hematocrit 37.7 % (37-47); Hemoglobin 13.1 g/dl (12.0-16.0); Imm Gran Abs Auto 0.06 X10*3/uL (0.00-0.03); Imm Gran Pct Auto 0.5 % (0.0-0.4); Lymphocytes Absolute Auto 1.1 X10*3/uL (1.2-4.9); Lymphocytes Percent Auto 9.1 % (20-40); Mean Corpuscular HGB Conc 34.7 g/dl (31.0-35.0); Mean Corpuscular Hemoglobin 33.1 pg (27.0-33.0); Mean Corpuscular Volume 95.2 fL (80-98); Mean Platelet Volume 9.5 fL (9.4-12.3); Monocytes Absolute Auto 1.3 X10*3/uL (0.1-1.2); Monocytes Percent Auto 10.4 % (2-11); Neutrophils Absolute Auto 9.6 X10*3/uL (2.0-8.3); Neutrophils Percent Auto 79.5 % (45-73); Platelet Count 269 X10*3/uL (160-400); Red Blood Count 3.96 X10*6/uL (4.20-5.50); White Blood Count 12.1 X10*3/uL (4.8-10.8)
[2020-11-20 06:25] LABS: Anion Gap 14 (12-20); Blood Urea Nitrogen 31 mg/dL (9-16); Carbon Dioxide 36 mmol/L (22-29); Chloride 79 mmol/L (96-108); Estimated Glomerular Filt Rate > 60; Glucose Fasting 104 mg/dL (60-99); Sodium 125 mmol/L (135-145)
--- NOTE | 2020-11-20 10:14 | HO.PM.IMPN ---
Subjective Subjective Date of Service: 11/20/20 Interval History: insomnia sob some improvement Cardiovascular Cardiovascular: Reports no additional cardiovascular complaints Gastrointestinal Gastrointestinal: Reports no additional gastrointestinal complaints Physical Exam Vital Signs: Vital Signs: Last Vital Signs Temp 97.9 F 11/20/20 08:00 Pulse 94 11/20/20 08:00 Resp 18 11/20/20 08:00 BP 135/86 11/20/20 08:00 Pulse Ox 90 L 11/20/20 08:00 Body Mass Index 39.9 General: AO X 3, no acute distress Resp: CTA b/l CVS: S1,S2,RRR GI: soft, non tender, non distended Neuro: motor grossly intact Psych: appropriate affect Objective Data Current Medications Generic Name Dose Route Start Last Admin Trade Name Freq PRN Reason Stop Dose Admin Acetaminophen 650 mg 11/17/20 23:10 11/18/20 08:13 Acetaminophen 325 Mg Tablet PO 650 mg Q6H PRN Administration Pain, Mild (Pain Scale 1-3) Apixaban 5 mg 11/18/20 09:00 11/19/20 20:46 Apixaban 5 Mg Tablet PO 5 mg BID DEE Administration Atorvastatin Calcium 10 mg 11/18/20 21:00 11/19/20 20:46 Atorvastatin Calcium 10 Mg Tablet PO 10 mg BEDTIME DEE Administration Heparin Sodium (Porcine) 50 0 units 11/19/20 15:00 11/19/20 20:52 units/ Sodium Chloride 5 ml IVFLUSH 50 unit TID DEE Administration Flecainide Acetate 150 mg 11/18/20 11:00 11/19/20 20:46 Flecainide Acetate 50 Mg Tablet PO 150 mg BID DEE Administration Lorazepam 1 mg 11/18/20 08:57 11/20/20 05:22 Lorazepam 1 Mg Tablet PO 1 mg BID PRN Administration Anxiety Magnesium Oxide 400 mg 11/19/20 08:30 11/19/20 16:46 Magnesium Oxide 400 Mg Tablet PO 400 mg BIDPC DEE Administration Metoprolol Tartrate 75 mg 11/18/20 21:00 11/19/20 20:45 Metoprolol Tartrate 50 Mg Tablet PO 75 mg BID DEE Administration Protocol Omeprazole 20 mg 11/19/20 16:30 11/20/20 05:22 Omeprazole 20 Mg Capsule.Dr PO 20 mg BID@0630,7400 DEE Administration Senna 17.2 mg 11/17/20 23:10 Sennosides 8.6 Mg Tablet PO BEDTIME PRN Constipation Sodium Chloride 3 ml 11/18/20 00:00 11/20/20 01:18 0.9 % Sodium Chloride Flush 3 Ml Syringe IVFLUSH 3 ml QSHIFT DEE Administration Sodium Chloride 1 gm 11/19/20 15:00 11/19/20 20:46 Sodium Chloride Tab 1 Gm Tablet PO 1 gm TID DEE Administration Urea 30 gm 11/19/20 09:45 11/19/20 20:45 Urea 15 Gm Powder PO 30 gm Q12H DEE Administration Zolpidem Tartrate 5 mg 11/19/20 16:50 11/20/20 00:26 Zolpidem Tartrate 5 Mg Tablet PO 5 mg BEDTIME PRN Administration Insomnia Labs CBC & Chem 7: 11/20/20 05:19 11/20/20 05:19 Microbiology Microbiology Results: Microbiology 11/18/20 00:42 Blood - Venous Blood Culture - Preliminary No growth after 48 hours. 11/17/20 22:18 Blood - Venous Blood Culture - Preliminary No growth after 48 hours. 11/18/20 Unknown Urine clean catch - Clean Catch Midstream Urine Culture - Final Assessment and Plan (1) Atrial fibrillation with rapid ventricular response: Status: Acute Assessment and Plan: 75F presented with sob shortness of breath acute diastolic chf with right sided dysfunction and mild pulm htn hyponatremia urine labs consistent with SIADH urea, salt tablets, fluid restrict, received 3% saline 11/19/20, sodium [address] chest, CTH, neck no obvious malignancy, will get oncology eval for further work up of potential malignant cause of SIADH given no obvious offending meds, no obvious lung pathology, and positive cancer history nephro floowing etoh dependence no signs of withrdawl at this time, CIWA afib rvr rate better controlled flecainide, lopressor, eliquis
[2020-11-20] MEDS: Flecainide Acetate 50 MG TABLET 150 MG PO ×2 (10:20→21:19)
[2020-11-20] MEDS: Apixaban 5 MG TABLET PO ×2 (10:20→21:20)
[2020-11-20] MEDS: Magnesium Oxide 400 MG TABLET PO ×2 (10:20→16:03)
[2020-11-20] MEDS: Metoprolol Tartrate 50 MG TABLET 75 MG PO ×2 (10:20→21:20)
[2020-11-20] MEDS: Sodium Chloride Tab 1 GM TABLET PO ×2 (10:20→16:03)
[2020-11-20] MEDS: Heparin Sodium,Porcine Flush 50 UNITS, 0.9 % Sodium Chloride Flush 5 ML IVFLUSH ×3 (10:21→21:20)
[2020-11-20] MEDS: Urea 15 GM POWDER 30 GM PO (10:21)
[2020-11-20 11:14] LABS: Magnesium 1.6 mg/dL (1.6-2.6)
[2020-11-20 12:51] LABS: Anion Gap 13 (12-20); Blood Urea Nitrogen 54 mg/dL (9-16); Calcium 9.1 mg/dL (8.4-10.2); Carbon Dioxide 34 mmol/L (22-29); Chloride 81 mmol/L (96-108); Creatinine Clr Calc Pharmacy 94.9; Estimated Glomerular Filt Rate > 60; Glucose Random 117 mg/dL (60-115); Potassium 3.8 mmol/L (3.3-5.1); Sodium 124 mmol/L (135-145)
--- NOTE | 2020-11-20 13:30 | P.PNCA_ITS ---
Subjective Subjective Date of Service: 11/20/20 Interval history: Still has some shortness of breath. Otherwise feels okay. Review of Systems Review of Systems Yes all other systems are reviewed and are negative Cardiovascular: Reports as per HPI, Reports no additional cardiovascular complaints, Denies acrocyanosis, Denies cool extremities, Denies painful fingertips, Reports chest pain, Denies chest pain at rest, Denies diaphoresis, Denies syncope, Denies irregular heart rhythm, Denies claudication, Denies leg edema, Denies lightheadedness, Denies palpitations and Reports dyspnea Respiratory: Reports dyspnea Denies syncope Endocrine: Denies palpitations Physical Exam Vital Signs: Last Vital Signs Temp 97.1 F 11/20/20 12:00 Pulse 88 11/20/20 12:00 Resp 20 11/20/20 12:00 BP 126/87 11/20/20 12:00 Pulse Ox 92 11/20/20 12:00 Body Mass Index 39.9 Const General: cooperative, comfortable and no acute distress Orientation/consciousness: patient oriented x3 HENMT Other: Unremarkable Neck Neck: Yes normal visual inspection Chest Chest palpation & inspection: normal inspection of the chest Resp Auscultation: clear to auscultation bilaterally, no crackles and no wheezes Cardio Jugular venous distension: no JVD Palpation: normal PMI Heart sounds: S1 normal heart sound present, S2 normal heart sound present, no gallops, no murmurs and no rubs GI Palpation (GI): Soft to palpation Back/Spine/Pelvis Other: unremarkable Skin General skin exam: no rashes or lesions noted Neuro General: patient oriented x3 Extrem General: Yes no clubbing, cyanosis or edema Psych Mental Status: mental status grossly normal Results Labs and Meds Result diagrams: 11/20/20 05:19 11/20/20 12:06 Lab results: Laboratory Results - last 24 hr 11/19/20 11/19/20 11/20/20 18:16 23:43 05:19 WBC 12.1 H RBC 3.96 L Hgb 13.1 Hct 37.7 MCV 95.2 MCH 33.1 H MCHC 34.7 RDW 13.0 Plt Count 269 MPV 9.5 Immature Gran % (Auto) 0.5 H Neut % (Auto) 79.5 H Lymph % (Auto) 9.1 L [place] % (Auto) 10.4 Eos % (Auto) 0.3 Baso % (Auto) 0.2 Lymph # (Auto) 1.1 L [place] # (Auto) 1.3 H Eos # (Auto) 0.0 Baso # (Auto) 0.0 Abs Immat Gran (auto) 0.06 H Absolute Neuts (auto) 9.6 H Absolute Nucleated RBC 0.000 Nucleated RBC % (auto) 0.0 Sodium 122 L 124 L Potassium 3.5 3.3 Chloride 76 L 77 L Carbon Dioxide 36 H 38 H Anion Gap 14 12 BUN 30 H 42 H Creatinine 0.62 0.64 Estim Creat Clear Calc 102.6 99.4 Estimated GFR > 60 > 60 Random Glucose 133 H 161 H Fasting Glucose Calcium 8.5 8.9 Magnesium 11/20/20 11/20/20 05:19 12:06 WBC RBC Hgb Hct MCV MCH MCHC RDW Plt Count MPV Immature Gran % (Auto) Neut % (Auto) Lymph % (Auto) [place] % (Auto) Eos % (Auto) Baso % (Auto) Lymph # (Auto) [place] # (Auto) Eos # (Auto) Baso # (Auto) Abs Immat Gran (auto) Absolute Neuts (auto) Absolute Nucleated RBC Nucleated RBC % (auto) Sodium 125 L 124 L Potassium 4.0 D 3.8 Chloride 79 L 81 L Carbon Dioxide 36 H 34 H Anion Gap 14 13 BUN 31 H 54 H D Creatinine 0.63 0.67 Estim Creat Clear Calc 101.0 94.9 Estimated GFR > 60 > 60 Random Glucose 117 H Fasting Glucose 104 H Calcium 9.0 9.1 Magnesium 1.6 Imaging Radiologist's impression: Impressions Chest CT 11/19/20 14:55 IMPRESSION: 1. Multiple small bilateral nonmineralized pulmonary nodules. Largest new plaque-like nodule right versus atelectasis posterior upper lobe 6 x 6 x 13 mm. Largest nodule on left 5 mm. Recommend follow-up noncontrast CT in 3 months for change. 2. Small right pleural effusion with passive atelectasis right base. 3. No hilar or mediastinal mass or adenopathy. Head CT 11/19/20 14:55 IMPRESSION: No acute intracranial abnormality. There is mild chronic microangiopathy. MRI with and without IV contrast would be more sensitive in assessing for metastatic lesions. Soft Tissue Neck CT 11/19/20 14:55 IMPRESSION: - Nondiagnostic assessment for superficial mucosal based lesions given the lack of contrast. No definite discrete masses are identified. Postcontrast imaging or PET could be obtained in light of the history as clinically indicated. - No cervical lymphadenopathy. - Fatty replacement of the parotid and submandibular glands. - Retropharyngeal course of the carotid arteries bilaterally. - Partially imaged small right pleural effusion. Progress Note: A&P Assessment and plan (1) Atrial fibrillation with rapid ventricular response: Status: Acute (2) Essential hypertension: Status: Acute Assessment and Plan: High sensitivity troponins are in normal range. Cardiac BNP is elevated to 704. Her sodium levels are quite low. Magnesium is low. Continue flecainide and beta-blockers. Continue anticoagulation. Once the electrolytes are reasonable, then plan for cardioversion. Fall Risk Details Current Medications: Current Medications Generic Name Dose Route Start Last Admin Trade Name Freq PRN Reason Stop Dose Admin Acetaminophen 650 mg 11/17/20 23:10 11/18/20 08:13 Acetaminophen 325 Mg Tablet PO 650 mg Q6H PRN Administration Pain, Mild (Pain Scale 1-3) Apixaban 5 mg 11/18/20 09:00 11/20/20 10:20 Apixaban 5 Mg Tablet PO 5 mg BID DEE Administration Atorvastatin Calcium 10 mg 11/18/20 21:00 11/19/20 20:46 Atorvastatin Calcium 10 Mg Tablet PO 10 mg BEDTIME DEE Administration Heparin Sodium (Porcine) 50 0 units 11/19/20 15:00 11/20/20 10:21 units/ Sodium Chloride 5 ml IVFLUSH 50 unit TID DEE Administration Flecainide Acetate 150 mg 11/18/20 11:00 11/20/20 10:20 Flecainide Acetate 50 Mg Tablet PO 150 mg BID DEE Administration Lorazepam 1 mg 11/18/20 08:57 11/20/20 05:22 Lorazepam 1 Mg Tablet PO 1 mg BID PRN Administration Anxiety Magnesium Oxide 400 mg 11/19/20 08:30 11/20/20 10:20 Magnesium Oxide 400 Mg Tablet PO 400 mg BIDPC DEE Administration Metoprolol Tartrate 75 mg 11/18/20 21:00 11/20/20 10:20 Metoprolol Tartrate 50 Mg Tablet PO 75 mg BID DEE Administration Protocol Omeprazole 20 mg 11/19/20 16:30 11/20/20 05:22 Omeprazole 20 Mg Capsule. PO 20 mg BID@0017,1040 DEE Administration Senna 17.2 mg 11/17/20 23:10 Sennosides 8.6 Mg Tablet PO BEDTIME PRN Constipation Sodium Chloride 3 ml 11/18/20 00:00 11/20/20 10:28 0.9 % Sodium Chloride Flush 3 Ml Syringe IVFLUSH 3 ml QSHIFT DEE Administration Sodium Chloride 1 gm 11/19/20 15:00 11/20/20 10:20 Sodium Chloride Tab 1 Gm Tablet PO 1 gm TID DEE Administration Urea 30 gm 11/19/20 09:45 11/20/20 10:21 Urea 15 Gm Powder PO 30 gm Q12H DEE Administration Zolpidem Tartrate 5 mg 11/19/20 16:50 11/20/20 00:26 Zolpidem Tartrate 5 Mg Tablet PO 5 mg BEDTIME PRN Administration Insomnia Time Spent With Patient Time: Total time spent is greater than 50% in coordination of care (as documented) at patient's floor/unit and/or counseling patient: Time with patient: less than 15 minutes
--- NOTE | 2020-11-20 13:37 | MHC.CM.PN ---
DP Female 75 DX Hypocalemia new SIADH. The plan @ [place] is home no services. Family will provide transport. A consult to Oncology has been ordered due to SIADH. CM will follow.
--- NOTE | 2020-11-20 14:26 | P.CNHO_ITS ---
Subjective - Subjective Chief complaint: Consult For: ?SIADH, with history of head and neck cancer. Patient: new to practice Consult date: 11/20/20 Requesting Physician: Yosi. Primary Care Provider: Juan Miguel Martinez MD Medical Summary: DIAGNOSIS: HISTORY OF HEAD AND NECK CARCINOMA. SIADH. HPI - Consult Narrative Reason for consult: Consult for: Head and neck carcinoma. SIADH. Narrative: Lucia Ch is a pleasant 75 year old lady, who presented with the chief complaint of chest discomfort. Patient mentioned that she had been having intermittent discomfort, no associated lightheadedness dizziness. Denied associated diaphoresis nausea or vomiting. Denied any chest pain at the time. She did complain of having shortness of breath and dyspnea on exertion with minimal activity. Denied any leg swelling. Denied any fever chills cough. No recent travel or sick contacts. Review of all other systems: negative. Denies dysphagia or odynophagia. No headache nor nasal obstruction. No cough nor sputum. No abdominal pain nausea vomiting heartburn indigestion. Bowels are working without any gross blood in it. Appetite is good. Weight is stable. She was noted to be in Atrial fibrillation with rapid ventricular response: High sensitivity troponins are in normal range. Cardiac BNP is elevated to 704. Her sodium levels are quite low. Magnesium is low. Recommendation from Cardiology: Continue flecainide and beta-blockers. Continue anticoagulation. Once the electrolytes are reasonable, then plan for cardioversion. Past Medical History: Hypertension, hyperlipidemia, anxiety, AFib on Eliquis, chronic back pain status post surgery. Review of Systems - Constitutional Reports system reviewed and no additional complaints, except as documented, Reports lack of energy - Eyes Reports system reviewed and no additional complaints, except as documented - ENT Reports system reviewed and no additional complaints, except as documented - Cardiovascular Reports system reviewed and no additional complaints, except as documented - Respiratory Reports no additional respiratory complaints - Gastrointestinal Reports system reviewed and no additional complaints, except as documented - Genitourinary Reports no additional female genitourinary complaints - Musculoskeletal Reports system reviewed and no additional complaints, except as documented - Integumentary/Breasts Skin/Breast: Reports no additional skin complaints - Neurologic Denies syncope - Psychiatric Reports system reviewed and no additional complaints, except as documented - Endocrine Reports no additional endocrine complaints - Hematologic/Lymphatic Reports system reviewed and no additional complaints, except as documented - Allergic/Immunologic Reports system reviewed and no additional complaints, except as documented [facility] Medical History: Medical History (Last Updated 11/18/20 @ 10:28 by Vladislav Cervantes MD) Afib Essential hypertension HTN (hypertension) Myocardial infarct Throat cancer Functional capacity: uses cane/walker Patient : No Family history: reviewed and not pertinent Social History: Social History (Last Updated 11/18/20 @ 10:57 by Sherif Deluca MD) Living Situation History: Household Members: Family Housing: House Alcohol History: Alcohol intake: current Alcohol History Details: Alcohol type: beer Alcohol type: hard liquor Occupation Assessmet: service: No Current occupational status: retired Smoking status: Never smoker Home Medications and Allergies Current Medications: Current Medications Generic Name Dose Route Start Last Admin Trade Name Freq PRN Reason Stop Dose Admin Acetaminophen 650 mg 11/17/20 23:10 11/18/20 08:13 Acetaminophen 325 Mg Tablet PO 650 mg Q6H PRN Administration Pain, Mild (Pain Scale 1-3) Apixaban 5 mg 11/18/20 09:00 11/20/20 10:20 Apixaban 5 Mg Tablet PO 5 mg BID DEE Administration Atorvastatin Calcium 10 mg 11/18/20 21:00 11/19/20 20:46 Atorvastatin Calcium 10 Mg Tablet PO 10 mg BEDTIME DEE Administration Heparin Sodium (Porcine) 50 0 units 11/19/20 15:00 11/20/20 10:21 units/ Sodium Chloride 5 ml IVFLUSH 50 unit TID DEE Administration Flecainide Acetate 150 mg 11/18/20 11:00 11/20/20 10:20 Flecainide Acetate 50 Mg Tablet PO 150 mg BID DEE Administration Lorazepam 1 mg 11/18/20 08:57 11/20/20 05:22 Lorazepam 1 Mg Tablet PO 1 mg BID PRN Administration Anxiety Magnesium Oxide 400 mg 11/19/20 08:30 11/20/20 10:20 Magnesium Oxide 400 Mg Tablet PO 400 mg BIDPC DEE Administration Metoprolol Tartrate 75 mg 11/18/20 21:00 11/20/20 10:20 Metoprolol Tartrate 50 Mg Tablet PO 75 mg BID DEE Administration Protocol Omeprazole 20 mg 11/19/20 16:30 11/20/20 05:22 Omeprazole 20 Mg Capsule.Dr PO 20 mg BID@0630,1630 DEE Administration Senna 17.2 mg 11/17/20 23:10 Sennosides 8.6 Mg Tablet PO BEDTIME PRN Constipation Sodium Chloride 3 ml 11/18/20 00:00 11/20/20 10:28 0.9 % Sodium Chloride Flush 3 Ml Syringe IVFLUSH 3 ml QSHIFT DEE Administration Sodium Chloride 1 gm 11/19/20 15:00 11/20/20 10:20 Sodium Chloride Tab 1 Gm Tablet PO 1 gm TID DEE Administration Urea 30 gm 11/19/20 09:45 11/20/20 10:21 Urea 15 Gm Powder PO 30 gm Q12H DEE Administration Zolpidem Tartrate 5 mg 11/19/20 16:50 11/20/20 00:26 Zolpidem Tartrate 5 Mg Tablet PO 5 mg BEDTIME PRN Administration Insomnia Home Medications Medication Instructions Recorded Confirmed Type flecainide 1 tab PO BID 11/18/20 11/18/20 History lorazepam 1 tab PO BID PRN 11/18/20 11/18/20 History metoprolol tartrate 1 tab PO BID 11/18/20 11/18/20 History omeprazole 1 cap PO BID 11/18/20 11/18/20 History simvastatin 1 tab PO DAILY 11/18/20 11/18/20 History Allergies Allergy/AdvReac Type Severity Reaction Status Date / Time SEASONAL ALLERGIES Allergy Unknown SNEEZING Uncoded 04/23/20 15:17 RUNNY NOSE Physical Exam Vital signs: Vital Signs Temp 97.1 F 11/20/20 12:00 Pulse 88 11/20/20 12:00 Resp 20 11/20/20 12:00 BP 126/87 11/20/20 12:00 Pulse Ox 92 11/20/20 12:00 Intake & Output 11/19/20 11/20/20 11/20/20 18:59 06:59 18:59 Intake Total 680 / 1280 600 / 1280 440 / 440 Output Total 250 / 850 600 / 850 Balance 430 / 430 0 / 430 440 / 440 Urine Output (Average ml/kg/hr) 0.19 0.45 0.45 Intake: Intake, Oral Amount 600 / 1120 520 / 1120 440 / 440 Intake, IV Amount 80 / 160 80 / 160 Sodium Chloride 3 % 80 ml In 80 / 160 80 / 160 Container,Empty 0 ml @ 40 mls/ hr IV ONCE ONE Rx#:[id number] Output: Output, Urine Amount (Catheter) 250 / 850 600 / 850 indwelling 250 / 850 600 / 850 Other: Breakfast % Eaten 100% Dinner % Eaten 50% Urine Color Yellow Continuous Bladder Irrigation Fluid - Amount Instilled indwelling 1,400 700 Weight 112.2 kg - Constitutional Present: mild distress - Routine HEENT Exam Head: Present: normal inspection ENT: Present: mucous membranes moist - Routine Neck Exam Present: supple - Routine Respiratory Exam Present: CTAB - Routine Cardiovascular Exam Cardiovascular: Present: RRR, S1, S2 - Routine Abdominal Exam Present: soft, nontender - Routine Rectal Exam Patient deferred: digital exam - Routine Skin Exam Present: intact - Routine Neurological Exam Present: alert, oriented X3 - Detailed Neurological Exam: Coma Scale Eye Opening: Spontaneous (4) Verbal Response: Oriented (5) Motor Response: Obeys commands (6) [place] Coma Scale Total: 15 - Routine Psychiatric Exam Present: normal affect Hem/Onc Consult Result - Labs CBC & Chem 7: 11/23/20 04:14 11/23/20 04:15 Labs: Short CBC 11/20/20 Range/Units 05:19 WBC 12.1 H (4.8-10.8) X10*3/uL Hgb 13.1 (12.0-16.0) g/dl Hct 37.7 (37-47) % Plt Count 269 (160-400) X10*3/uL BMP 11/19/20 11/19/20 11/20/20 18:16 23:43 05:19 Sodium 122 L 124 L 125 L Potassium 3.5 3.3 4.0 D Chloride 76 L 77 L 79 L Carbon Dioxide 36 H 38 H 36 H BUN 30 H 42 H 31 H Creatinine 0.62 0.64 0.63 Calcium 8.5 8.9 9.0 11/20/20 12:06 Sodium 124 L Potassium 3.8 Chloride 81 L Carbon Dioxide 34 H BUN 54 H D Creatinine 0.67 Calcium 9.1 Assessment and Plan (1) 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 H/O neck CA goes back to 2007. This was treated with chemo/RTx and has been re mission. She now presents with hyponatremia. Concern is normovolemic, SIADH. She could have a pulmonary cause, versus recurrence of the carcinoma, which would be unusual, after such a long lag time. A CT scan of the head and neck and chest was done for further evaluation. CT head: No acute intracranial abnormality. There is mild chronic microangiopathy. MRI with and without IV contrast would be more sensitive in assessing for metastatic lesions. CT soft tissues of the neck: - Nondiagnostic assessment for superficial mucosal based lesions given the lack of contrast. No definite discrete masses are identified. Postcontrast imaging or PET could be obtained in light of the history as clinically indicated. - No cervical lymphadenopathy. - Fatty replacement of the parotid and submandibular glands. - Retropharyngeal course of the carotid arteries bilaterally. - Partially imaged small right pleural effusion. CT chest: 1. Multiple small bilateral nonmineralized pulmonary nodules. Largest new plaque-like nodule right versus atelectasis posterior upper lobe 6 x 6 x 13 mm. Largest nodule on left 5 mm. Recommend follow-up noncontrast CT in 3 months for change. 2. Small right pleural effusion with passive atelectasis right base. 3. No hilar or mediastinal mass or adenopathy. PLAN: Would recommend detailed ENT examination, to look for any recurrent lesion. Contrast enhanced CT neck. PET scan as an outpatient. Will review the results and take it from there. Thank you, CC:
[2020-11-20 20:07] LABS: Anion Gap 11 (12-20); Carbon Dioxide 39 mmol/L (22-29); Chloride 82 mmol/L (96-108); Potassium 3.8 mmol/L (3.3-5.1); Sodium 128 mmol/L (135-145)
--- NOTE | 2020-11-20 20:09 | P.PNNP_ITS ---
Subjective Subjective Date of Service: 11/20/20 Interval history: Seen and examined. Events noted Physical Exam Vital Signs: Vital Signs: Last Vital Signs Temp 97.1 F 11/20/20 19:27 Pulse 95 11/20/20 19:27 Resp 20 11/20/20 19:27 BP 136/83 11/20/20 19:27 Pulse Ox 99 11/20/20 19:27 Body Mass Index 39.9 Const: General: cooperative, comfortable and no acute distress Orientation/consciousness: patient oriented x3 HENMT: Other: Unremarkable Neck: Neck: Yes normal visual inspection Chest: Chest palpation & inspection: normal inspection of the chest Resp: Auscultation: clear to auscultation bilaterally, no crackles and no wheezes Cardio: Jugular venous distension: no JVD Palpation: normal PMI Heart sounds: S1 normal heart sound present, S2 normal heart sound present, no ga llops, no murmurs and no rubs GI: Palpation (GI): Soft to palpation Back/Spine/Pelvis: Other: unremarkable Skin: General skin exam: no rashes or lesions noted Neuro: General: patient oriented x3 Extrem: General: Yes no clubbing, cyanosis or edema Psych: Mental Status: mental status grossly normal Objective Data Labs CBC & Chem 7: 11/20/20 05:19 11/20/20 19:32 Labs: Laboratory Results - last 24 hr 11/19/20 11/20/20 11/20/20 23:43 05:19 05:19 WBC 12.1 H RBC 3.96 L Hgb 13.1 Hct 37.7 MCV 95.2 MCH 33.1 H MCHC 34.7 RDW 13.0 Plt Count 269 MPV 9.5 Immature Gran % (Auto) 0.5 H Neut % (Auto) 79.5 H Lymph % (Auto) 9.1 L [place] % (Auto) 10.4 Eos % (Auto) 0.3 Baso % (Auto) 0.2 Lymph # (Auto) 1.1 L [place] # (Auto) 1.3 H Eos # (Auto) 0.0 Baso # (Auto) 0.0 Abs Immat Gran (auto) 0.06 H Absolute Neuts (auto) 9.6 H Absolute Nucleated RBC 0.000 Nucleated RBC % (auto) 0.0 Sodium 124 L 125 L Potassium 3.3 4.0 D Chloride 77 L 79 L Carbon Dioxide 38 H 36 H Anion Gap 12 14 BUN 42 H 31 H Creatinine 0.64 0.63 Estim Creat Clear Calc 99.4 101.0 Estimated GFR > 60 > 60 Random Glucose 161 H Fasting Glucose 104 H Calcium 8.9 9.0 Magnesium 1.6 11/20/20 11/20/20 12:06 19:32 WBC RBC Hgb Hct MCV MCH MCHC RDW Plt Count MPV Immature Gran % (Auto) Neut % (Auto) Lymph % (Auto) [place] % (Auto) Eos % (Auto) Baso % (Auto) Lymph # (Auto) [place] # (Auto) Eos # (Auto) Baso # (Auto) Abs Immat Gran (auto) Absolute Neuts (auto) Absolute Nucleated RBC Nucleated RBC % (auto) Sodium 124 L 128 L Potassium 3.8 3.8 Chloride 81 L 82 L Carbon Dioxide 34 H 39 H Anion Gap 13 11 L BUN 54 H D Creatinine 0.67 Estim Creat Clear Calc 94.9 Estimated GFR > 60 Random Glucose 117 H Fasting Glucose Calcium 9.1 Magnesium Microbiology Microbiology Results: Microbiology 11/18/20 00:42 Blood - Venous Blood Culture - Preliminary No growth after 48 hours. 11/17/20 22:18 Blood - Venous Blood Culture - Preliminary No growth after 48 hours. 11/18/20 Unknown Urine clean catch - Clean Catch Midstream Urine Culture - Final Assessment & Plan Assessment and plan (1) Atrial fibrillation with rapid ventricular response: Status: Acute Assessment and Plan: 1. Euvolemic HypoNa: w/u c/w SIADH based on Uosm >>[place], incr Oneil and low UAL Not on any meds typically assoc with SIADH Hypothyroid r/o adrenal insuff being r/o h/o throat Ca is concerning for CA assoc SIADH and will need head CT to r/o [employer] assoc SAIDH; CXR neg but will need to get CT of chest as well to r/o pulm cause of SIADH Cont cautious 3% saline to help grad incr SNa ( total of 160 ml 11/19) and today 100 ml and Sna grad incr to 128 today; depending on am labs will r/s Urea and salt tabs and if needed give additional 3% saline; Hosp does not have Tolvaptan on formularly but this would be an additional option if cont to struggle OR start demeclocylcine if does noit respond to PO UREA Note incr HCO3 does raise ques of hypovol hypoNa but urine stiudies not suggestive of this but nonetheless if incr HCO3 in am can consider trial of IV 0.9 and track SNa response Etiol of SURINDER remains unclear and as noted underlyng CANCER assoc SURINDER is a definte concnern...onc seeing pt and will see what additional imaging is needed ( CT w C; PET scan etc..) 2. Incr HCO3: mutlifact; bsl 30-33 and now incr..ques d/t lasys; will check am venous pH REC: cont to rack SNa; avoid to rapid correction of SNa with goal of 8 eq/24 hrs; check venous pH; r/s UREA and PO slat tabs in am depending on am SNa Time Spent With Patient Time: Total time spent is greater than 50% in coordination of care (as documented) at patient's floor/unit and/or counseling patient:
[2020-11-20] MEDS: Atorvastatin Calcium 10 MG TABLET PO (21:20)
[2020-11-20 22:48] LABS: Osmolality Urine 497 mosm/kg (373-1093)
[2020-11-20 22:48] LABS: Anion Gap 11 (12-20); Blood Urea Nitrogen 31 mg/dL (9-16); Carbon Dioxide 39 mmol/L (22-29); Chloride 81 mmol/L (96-108); Estimated Glomerular Filt Rate > 60; Glucose Random 115 mg/dL (60-115); Potassium 3.9 mmol/L (3.3-5.1); Sodium 127 mmol/L (135-145)
[2020-11-20 23:27] LABS: Sodium Urine Random < 20.0 mmol/L
[2020-11-21] VITALS (9 sets, daily range): BP systolic 118–168; BP diastolic 75–98; PULSE 87–109; RESP 18–20; TEMP 36.1–36.8; O2SAT 95–99; BMI 39.6
[2020-11-21] MEDS: 0.9 % Sodium Chloride Flush 3 ML SYRINGE IVFLUSH ×3 (00:08→15:48)
[2020-11-21] MEDS: LORazepam 1 MG TABLET PO (00:08)
[2020-11-21 03:46] LABS: Uric Acid Urine Random 25.9 mg/dL
[2020-11-21 05:10] LABS: Chloride Urine Random < 20.0 mmol/L
[2020-11-21] MEDS: Omeprazole 20 MG CAPSULE.DR PO ×2 (05:47→15:48)
[2020-11-21 07:00] LABS: pH VBG 7.46 (7.32-7.43)
[2020-11-21 07:01] LABS: MANUAL DIFF FLAG NO
[2020-11-21 07:01] LABS: VBG Base Excess 20.1 mmol/L; VBG HCO3 48 mmol/L (22-26); VBG pCO2 67 mmHg; VBG pH 7.46 (7.32-7.43); VBG pO2 60 mmHg
[2020-11-21 07:17] LABS: Basophils Percent Auto 0.3 % (0-2); Eosinophils Absolute Auto 0.1 X10*3/uL (0.0-0.4); Eosinophils Percent Auto 0.8 % (0-4); Hematocrit 39.7 % (37-47); Hemoglobin 13.2 g/dl (12.0-16.0); Imm Gran Abs Auto 0.06 X10*3/uL (0.00-0.03); Imm Gran Pct Auto 0.6 % (0.0-0.4); Lymphocytes Absolute Auto 1.1 X10*3/uL (1.2-4.9); Lymphocytes Percent Auto 10.4 % (20-40); Mean Corpuscular HGB Conc 33.2 g/dl (31.0-35.0); Mean Corpuscular Hemoglobin 32.6 pg (27.0-33.0); Mean Platelet Volume 9.1 fL (9.4-12.3); Monocytes Absolute Auto 1.1 X10*3/uL (0.1-1.2); Monocytes Percent Auto 10.4 % (2-11); Neutrophils Absolute Auto 8.1 X10*3/uL (2.0-8.3); Neutrophils Percent Auto 77.5 % (45-73); Platelet Count 251 X10*3/uL (160-400); Red Blood Count 4.05 X10*6/uL (4.20-5.50); Red Cell Distribution Width 13.2 % (11.0-16.0); White Blood Count 10.4 X10*3/uL (4.8-10.8)
[2020-11-21 07:20] LABS: D Dimer < 200 NG/ML
[2020-11-21 07:41] LABS: Anion Gap 13 (12-20); Blood Urea Nitrogen 24 mg/dL (9-16); Calcium 9.4 mg/dL (8.4-10.2); Carbon Dioxide 38 mmol/L (22-29); Chloride 84 mmol/L (96-108); Creatinine Clr Calc Pharmacy 94.9; Estimated Glomerular Filt Rate > 60; Glucose Fasting 96 mg/dL (60-99); Magnesium 1.8 mg/dL (1.6-2.6); Potassium 4.4 mmol/L (3.3-5.1); Sodium 131 mmol/L (135-145)
[2020-11-21] MEDS: Heparin Sodium,Porcine Flush 50 UNITS, 0.9 % Sodium Chloride Flush 5 ML IVFLUSH ×3 (09:46→19:54)
[2020-11-21] MEDS: Metoprolol Tartrate 50 MG TABLET 75 MG PO ×2 (09:46→20:00)
[2020-11-21] MEDS: Apixaban 5 MG TABLET PO ×2 (09:46→20:01)
[2020-11-21] MEDS: Magnesium Oxide 400 MG TABLET PO ×2 (09:46→15:48)
[2020-11-21] MEDS: Flecainide Acetate 50 MG TABLET 150 MG PO ×2 (09:47→20:03)
--- NOTE | 2020-11-21 09:55 | P.PNCA_ITS ---
Subjective Subjective Date of Service: 11/21/20 Interval history: Continues to be in atrial fibrillation. Still complaining of shortness of breath. Physical Exam Vital Signs: Last Vital Signs Temp 97.0 F 11/21/20 07:27 Pulse 107 H 11/21/20 09:47 Resp 20 11/21/20 07:27 BP 135/94 H 11/21/20 09:47 Pulse Ox 97 11/21/20 07:27 Body Mass Index 39.9 GENERAL APPEARANCE: in no acute distress. HEENT: unremarkable. HEAD: normocephalic, atraumatic. NECK/THYROID: no carotid bruit, no jugular venous distention. SKIN: no suspicious lesions, warm and dry. HEART: no murmurs, irregular rate and rhythm, S1, S2 normal. LUNGS: clear to auscultation bilaterally. ABDOMEN: normal, bowel sounds present, soft, nontender, nondistended. EXTREMITIES: no clubbing, cyanosis, or edema. PERIPHERAL PULSES: equal. NEUROLOGIC: nonfocal, alert and oriented. Results Labs and Meds Result diagrams: 11/21/20 06:50 11/21/20 06:50 Lab results: Laboratory Results - last 24 hr 11/20/20 11/20/20 11/20/20 05:19 12:06 19:32 WBC RBC Hgb Hct MCV MCH MCHC RDW Plt Count MPV Immature Gran % (Auto) Neut % (Auto) Lymph % (Auto) [place] % (Auto) Eos % (Auto) Baso % (Auto) Lymph # (Auto) [place] # (Auto) Eos # (Auto) Baso # (Auto) Abs Immat Gran (auto) Absolute Neuts (auto) Absolute Nucleated RBC Nucleated RBC % (auto) D-Dimer VBG pH VBG pCO2 VBG pO2 VBG HCO3 VBG O2 Saturation VBG Base Excess Sodium 124 L 128 L Potassium 3.8 3.8 Chloride 81 L 82 L Carbon Dioxide 34 H 39 H Anion Gap 13 11 L BUN 54 H D Creatinine 0.67 Estim Creat Clear Calc 94.9 Estimated GFR > 60 Random Glucose 117 H Fasting Glucose Uric Acid Calcium 9.1 Magnesium 1.6 Urine Osmolality Ur Random Sodium Ur Random Chloride Ur Random Uric Acid 11/20/20 11/20/20 11/20/20 22:08 22:08 22:08 WBC RBC Hgb Hct MCV MCH MCHC RDW Plt Count MPV Immature Gran % (Auto) Neut % (Auto) Lymph % (Auto) [place] % (Auto) Eos % (Auto) Baso % (Auto) Lymph # (Auto) [place] # (Auto) Eos # (Auto) Baso # (Auto) Abs Immat Gran (auto) Absolute Neuts (auto) Absolute Nucleated RBC Nucleated RBC % (auto) D-Dimer VBG pH VBG pCO2 VBG pO2 VBG HCO3 VBG O2 Saturation VBG Base Excess Sodium Potassium Chloride Carbon Dioxide Anion Gap BUN Creatinine Estim Creat Clear Calc Estimated GFR Random Glucose Fasting Glucose Uric Acid Calcium Magnesium Urine Osmolality 497 Ur Random Sodium < 20.0 Ur Random Chloride < 20.0 Ur Random Uric Acid 25.9 11/20/20 11/21/20 11/21/20 22:16 06:50 06:50 WBC 10.4 RBC 4.05 L Hgb 13.2 Hct 39.7 MCV 98.0 MCH 32.6 MCHC 33.2 RDW 13.2 Plt Count 251 MPV 9.1 L Immature Gran % (Auto) 0.6 H Neut % (Auto) 77.5 H Lymph % (Auto) 10.4 L [place] % (Auto) 10.4 Eos % (Auto) 0.8 Baso % (Auto) 0.3 Lymph # (Auto) 1.1 L [place] # (Auto) 1.1 Eos # (Auto) 0.1 Baso # (Auto) 0.0 Abs Immat Gran (auto) 0.06 H Absolute Neuts (auto) 8.1 Absolute Nucleated RBC 0.000 Nucleated RBC % (auto) 0.0 D-Dimer < 200 VBG pH VBG pCO2 VBG pO2 VBG HCO3 VBG O2 Saturation VBG Base Excess Sodium 127 L Potassium 3.9 Chloride 81 L Carbon Dioxide 39 H Anion Gap 11 L BUN 31 H Creatinine 0.63 Estim Creat Clear Calc 101.0 Estimated GFR > 60 Random Glucose 115 Fasting Glucose Uric Acid Calcium 9.0 Magnesium Urine Osmolality Ur Random Sodium Ur Random Chloride Ur Random Uric Acid 11/21/20 11/21/20 11/21/20 06:50 06:50 06:51 WBC RBC Hgb Hct MCV MCH MCHC RDW Plt Count MPV Immature Gran % (Auto) Neut % (Auto) Lymph % (Auto) [place] % (Auto) Eos % (Auto) Baso % (Auto) Lymph # (Auto) [place] # (Auto) Eos # (Auto) Baso # (Auto) Abs Immat Gran (auto) Absolute Neuts (auto) Absolute Nucleated RBC Nucleated RBC % (auto) D-Dimer VBG pH 7.46 H VBG pCO2 VBG pO2 VBG HCO3 VBG O2 Saturation VBG Base Excess Sodium 131 L Potassium 4.4 Chloride 84 L Carbon Dioxide 38 H Anion Gap 13 BUN 24 H Creatinine 0.67 Estim Creat Clear Calc 94.9 Estimated GFR > 60 Random Glucose Fasting Glucose 96 Uric Acid 4.0 Calcium 9.4 Magnesium 1.8 Urine Osmolality Ur Random Sodium Ur Random Chloride Ur Random Uric Acid 11/21/20 06:53 WBC RBC Hgb Hct MCV MCH MCHC RDW Plt Count MPV Immature Gran % (Auto) Neut % (Auto) Lymph % (Auto) [place] % (Auto) Eos % (Auto) Baso % (Auto) Lymph # (Auto) [place] # (Auto) Eos # (Auto) Baso # (Auto) Abs Immat Gran (auto) Absolute Neuts (auto) Absolute Nucleated RBC Nucleated RBC % (auto) D-Dimer VBG pH 7.46 H VBG pCO2 67 VBG pO2 60 VBG HCO3 48 H VBG O2 Saturation 87.0 VBG Base Excess 20.1 Sodium Potassium Chloride Carbon Dioxide Anion Gap BUN Creatinine Estim Creat Clear Calc Estimated GFR Random Glucose Fasting Glucose Uric Acid Calcium Magnesium Urine Osmolality Ur Random Sodium Ur Random Chloride Ur Random Uric Acid Progress Note: A&P Assessment and plan (1) Atrial fibrillation with rapid ventricular response: Status: Acute (2) Essential hypertension: Status: Acute Assessment and Plan: 75-year-old female with known atrial fibrillation. She has AFib with RVR. She has multiple electrolyte imbalances which are improving. Continues to be in a trial fibrillation. Plan is to do cardioversion. This will potentially happen on Monday. Continue the medications as before. Eliquis should not be interrupted. Thank you for allowing me to participate in the care of your patient. Please feel free to contact me if you have any questions. Fall Risk Details Current Medications: Current Medications Generic Name Dose Route Start Last Admin Trade Name Freq PRN Reason Stop Dose Admin Acetaminophen 650 mg 11/17/20 23:10 11/18/20 08:13 Acetaminophen 325 Mg Tablet PO 650 mg Q6H PRN Administration Pain, Mild (Pain Scale 1-3) Apixaban 5 mg 11/18/20 09:00 11/21/20 09:46 Apixaban 5 Mg Tablet PO 5 mg BID DEE Administration Atorvastatin Calcium 10 mg 11/18/20 21:00 11/20/20 21:20 Atorvastatin Calcium 10 Mg Tablet PO 10 mg BEDTIME DEE Administration Heparin Sodium (Porcine) 50 0 units 11/19/20 15:00 11/21/20 09:46 units/ Sodium Chloride 5 ml IVFLUSH 50 unit TID DEE Administration Flecainide Acetate 150 mg 11/18/20 11:00 11/21/20 09:47 Flecainide Acetate 50 Mg Tablet PO 150 mg BID DEE Administration Lorazepam 1 mg 11/18/20 08:57 11/21/20 00:08 Lorazepam 1 Mg Tablet PO 1 mg BID PRN Administration Anxiety Magnesium Oxide 400 mg 11/19/20 08:30 11/21/20 09:46 Magnesium Oxide 400 Mg Tablet PO 400 mg BIDPC DEE Administration Metoprolol Tartrate 75 mg 11/18/20 21:00 11/21/20 09:46 Metoprolol Tartrate 50 Mg Tablet PO 75 mg BID DEE Administration Protocol Omeprazole 20 mg 11/19/20 16:30 11/21/20 05:47 Omeprazole 20 Mg Capsule.Dr PO 20 mg BID@0630,1630 DEE Administration Senna 17.2 mg 11/17/20 23:10 Sennosides 8.6 Mg Tablet PO BEDTIME PRN Constipation Sodium Chloride 3 ml 11/18/20 00:00 11/21/20 09:50 0.9 % Sodium Chloride Flush 3 Ml Syringe IVFLUSH 3 ml QSHIFT DEE Administration Zolpidem Tartrate 5 mg 11/19/20 16:50 11/20/20 21:32 Zolpidem Tartrate 5 Mg Tablet PO 5 mg BEDTIME PRN Administration Insomnia Time Spent With Patient Time: Total time spent is greater than 50% in coordination of care (as documented) at patient's floor/unit and/or counseling patient: Time with patient: 15 - 24 minutes
--- NOTE | 2020-11-21 11:39 | HO.PM.IMPN ---
Subjective Subjective Date of Service: 11/21/20 Interval History: poor sleep, dizzy Cardiovascular Cardiovascular: Reports no additional cardiovascular complaints Respiratory Respiratory: Reports no additional respiratory complaints Physical Exam Vital Signs: Vital Signs: Last Vital Signs Temp 98.2 F 11/21/20 11:12 Pulse 98 11/21/20 11:12 Resp 20 11/21/20 11:12 BP 136/75 11/21/20 11:12 Pulse Ox 98 11/21/20 11:12 Body Mass Index 39.9 General: AO X 3, no acute distress Resp: CTA b/l CVS: S1,S2, irregular, rapid GI: soft, non tender, non distended Neuro: motor grossly intact Psych: appropriate affect Objective Data Current Medications Generic Name Dose Route Start Last Admin Trade Name Freq PRN Reason Stop Dose Admin Acetaminophen 650 mg 11/17/20 23:10 11/18/20 08:13 Acetaminophen 325 Mg Tablet PO 650 mg Q6H PRN Administration Pain, Mild (Pain Scale 1-3) Apixaban 5 mg 11/18/20 09:00 11/21/20 09:46 Apixaban 5 Mg Tablet PO 5 mg BID DEE Administration Atorvastatin Calcium 10 mg 11/18/20 21:00 11/20/20 21:20 Atorvastatin Calcium 10 Mg Tablet PO 10 mg BEDTIME DEE Administration Heparin Sodium (Porcine) 50 0 units 11/19/20 15:00 11/21/20 09:46 units/ Sodium Chloride 5 ml IVFLUSH 50 unit TID DEE Administration Flecainide Acetate 150 mg 11/18/20 11:00 11/21/20 09:47 Flecainide Acetate 50 Mg Tablet PO 150 mg BID DEE Administration Lorazepam 1 mg 11/18/20 08:57 11/21/20 00:08 Lorazepam 1 Mg Tablet PO 1 mg BID PRN Administration Anxiety Magnesium Oxide 400 mg 11/19/20 08:30 11/21/20 09:46 Magnesium Oxide 400 Mg Tablet PO 400 mg BIDPC DEE Administration Metoprolol Tartrate 75 mg 11/18/20 21:00 11/21/20 09:46 Metoprolol Tartrate 50 Mg Tablet PO 75 mg BID DEE Administration Protocol Omeprazole 20 mg 11/19/20 16:30 11/21/20 05:47 Omeprazole 20 Mg Capsule.Dr PO 20 mg BID@0630,4060 DEE Administration Senna 17.2 mg 11/17/20 23:10 Sennosides 8.6 Mg Tablet PO BEDTIME PRN Constipation Sodium Chloride 3 ml 11/18/20 00:00 11/21/20 09:50 0.9 % Sodium Chloride Flush 3 Ml Syringe IVFLUSH 3 ml QSHIFT DEE Administration Zolpidem Tartrate 5 mg 11/19/20 16:50 11/20/20 21:32 Zolpidem Tartrate 5 Mg Tablet PO 5 mg BEDTIME PRN Administration Insomnia Labs CBC & Chem 7: 11/21/20 06:50 11/21/20 06:50 Microbiology Microbiology Results: Microbiology 11/17/20 22:18 Blood - Venous Blood Culture - Preliminary 11/18/20 00:42 Blood - Venous Blood Culture - Preliminary No growth after 48 hours. 11/18/20 Unknown Urine clean catch - Clean Catch Midstream Urine Culture - Final Assessment and Plan (1) Atrial fibrillation with rapid ventricular response: Status: Acute Assessment and Plan: 75F presented with sob shortness of breath acute diastolic chf with right sided dysfunction and mild pulm htn hyponatremia urine labs consistent with SIADH s/p urea, salt tablets, fluid restrict, 3% saline, sodium now 131 from [address] chest, CTH, neck no obvious malignancy, oncology appreciated, will need PET as outpatient for further work up of potential malignant cause of SIADH given no obvious offending meds, no obvious lung pathology, and positive cancer history nephro following etoh dependence no signs of withrdawl at this time, CIWA afib rvr flecainide, lopressor, eliquis plan for CV on monday
--- NOTE | 2020-11-21 16:08 | PM.PNNEP ---
Subjective Subjective Date of Service: 11/21/20 Interval history: awake and alert says her throat is dry and she drinks water often Physical Exam Vital Signs: Vital Signs: Last Vital Signs Temp 97 F 11/21/20 15:24 Pulse 88 11/21/20 15:24 Resp 20 11/21/20 15:24 BP 144/94 H 11/21/20 15:24 Pulse Ox 99 11/21/20 15:24 Body Mass Index 39.9 Const: General: cooperative, comfortable and no acute distress Orientation/consciousness: patient oriented x3 HENMT: Other: Unremarkable Neck: Neck: Yes normal visual inspection Chest: Chest palpation & inspection: normal inspection of the chest Resp: Auscultation: clear to auscultation bilaterally, no crackles and no wheezes Cardio: Jugular venous distension: no JVD Palpation: normal PMI Heart sounds: S1 normal heart sound present, S2 normal heart sound present, no gallops, no murmurs and no rubs GI: Palpation (GI): Soft to palpation Back/Spine/Pelvis: Other: unremarkable Skin: General skin exam: no rashes or lesions noted Neuro: General: patient oriented x3 Extrem: General: Yes no clubbing, cyanosis or edema Psych: Mental Status: mental status grossly normal Objective Data Labs CBC & Chem 7: 11/21/20 06:50 11/21/20 06:50 Labs: Laboratory Results - last 24 hr 11/20/20 11/20/20 11/20/20 19:32 22:08 22:08 WBC RBC Hgb Hct MCV MCH MCHC RDW Plt Count MPV Immature Gran % (Auto) Neut % (Auto) Lymph % (Auto) [place] % (Auto) Eos % (Auto) Baso % (Auto) Lymph # (Auto) [place] # (Auto) Eos # (Auto) Baso # (Auto) Abs Immat Gran (auto) Absolute Neuts (auto) Absolute Nucleated RBC Nucleated RBC % (auto) D-Dimer VBG pH VBG pCO2 VBG pO2 VBG HCO3 VBG O2 Saturation VBG Base Excess Sodium 128 L Potassium 3.8 Chloride 82 L Carbon Dioxide 39 H Anion Gap 11 L BUN Creatinine Estim Creat Clear Calc Estimated GFR Random Glucose Fasting Glucose Uric Acid Calcium Magnesium Urine Osmolality 497 Ur Random Sodium < 20.0 Ur Random Chloride < 20.0 Ur Random Uric Acid 11/20/20 11/20/20 11/21/20 22:08 22:16 06:50 WBC 10.4 RBC 4.05 L Hgb 13.2 Hct 39.7 MCV 98.0 MCH 32.6 MCHC 33.2 RDW 13.2 Plt Count 251 MPV 9.1 L Immature Gran % (Auto) 0.6 H Neut % (Auto) 77.5 H Lymph % (Auto) 10.4 L [place] % (Auto) 10.4 Eos % (Auto) 0.8 Baso % (Auto) 0.3 Lymph # (Auto) 1.1 L [place] # (Auto) 1.1 Eos # (Auto) 0.1 Baso # (Auto) 0.0 Abs Immat Gran (auto) 0.06 H Absolute Neuts (auto) 8.1 Absolute Nucleated RBC 0.000 Nucleated RBC % (auto) 0.0 D-Dimer VBG pH VBG pCO2 VBG pO2 VBG HCO3 VBG O2 Saturation VBG Base Excess Sodium 127 L Potassium 3.9 Chloride 81 L Carbon Dioxide 39 H Anion Gap 11 L BUN 31 H Creatinine 0.63 Estim Creat Clear Calc 101.0 Estimated GFR > 60 Random Glucose 115 Fasting Glucose Uric Acid Calcium 9.0 Magnesium Urine Osmolality Ur Random Sodium Ur Random Chloride Ur Random Uric Acid 25.9 11/21/20 11/21/20 11/21/20 06:50 06:50 06:50 WBC RBC Hgb Hct MCV MCH MCHC RDW Plt Count MPV Immature Gran % (Auto) Neut % (Auto) Lymph % (Auto) [place] % (Auto) Eos % (Auto) Baso % (Auto) Lymph # (Auto) [place] # (Auto) Eos # (Auto) Baso # (Auto) Abs Immat Gran (auto) Absolute Neuts (auto) Absolute Nucleated RBC Nucleated RBC % (auto) D-Dimer < 200 VBG pH VBG pCO2 VBG pO2 VBG HCO3 VBG O2 Saturation VBG Base Excess Sodium 131 L Potassium 4.4 Chloride 84 L Carbon Dioxide 38 H Anion Gap 13 BUN 24 H Creatinine 0.67 Estim Creat Clear Calc 94.9 Estimated GFR > 60 Random Glucose Fasting Glucose 96 Uric Acid 4.0 Calcium 9.4 Magnesium 1.8 Urine Osmolality Ur Random Sodium Ur Random Chloride Ur Random Uric Acid 11/21/20 11/21/20 06:51 06:53 WBC RBC Hgb Hct MCV MCH MCHC RDW Plt Count MPV Immature Gran % (Auto) Neut % (Auto) Lymph % (Auto) [place] % (Auto) Eos % (Auto) Baso % (Auto) Lymph # (Auto) [place] # (Auto) Eos # (Auto) Baso # (Auto) Abs Immat Gran (auto) Absolute Neuts (auto) Absolute Nucleated RBC Nucleated RBC % (auto) D-Dimer VBG pH 7.46 H 7.46 H VBG pCO2 67 VBG pO2 60 VBG HCO3 48 H VBG O2 Saturation 87.0 VBG Base Excess 20.1 Sodium Potassium Chloride Carbon Dioxide Anion Gap BUN Creatinine Estim Creat Clear Calc Estimated GFR Random Glucose Fasting Glucose Uric Acid Calcium Magnesium Urine Osmolality Ur Random Sodium Ur Random Chloride Ur Random Uric Acid Microbiology Microbiology Results: Microbiology 11/17/20 22:18 Blood - Venous Blood Culture - Preliminary 11/18/20 00:42 Blood - Venous Blood Culture - Preliminary No growth after 48 hours. 11/18/20 Unknown Urine clean catch - Clean Catch Midstream Urine Culture - Final Assessment & Plan Assessment and plan (1) Atrial fibrillation with rapid ventricular response: Status: Acute Assessment and Plan: 1. Euvolemic HypoNa: originally c/w SIADH high Opal and Uosm. Did well with urea. Overnight Opal repeat <20. Course likely c/b some component of hypovolemia. Note incr HCO3 does raise ques of hypovol hypoNa Plan: - can either give 0.9% saline at 125cc/hr for 1 liter - or can repeat Ulytes and prove its hypovolemic - ok to hold off on urea - encourage solutes by increasing ensures over water. Time Spent With Patient Time: Total time spent is greater than 50% in coordination of care (as documented) at patient's floor/unit and/or counseling patient:
[2020-11-21 18:43] LABS: Osmolality Urine 518 mosm/kg (373-1093)
[2020-11-21 19:10] LABS: Sodium Urine Random < 20.0 mmol/L
[2020-11-21] MEDS: Atorvastatin Calcium 10 MG TABLET PO (20:03)
[2020-11-22] MEDS: LORazepam 1 MG TABLET PO (00:10)
[2020-11-22] MEDS: 0.9 % Sodium Chloride Flush 3 ML SYRINGE IVFLUSH ×3 (00:10→16:04)
[2020-11-22] MEDS: Melatonin 3 MG TABLET 6 MG PO (00:51)
[2020-11-22 03:40] VITALS: BP 153/73; PULSE 78; RESP 18; TEMP 36.4; O2SAT 98
[2020-11-22 06:00] VITALS: BMI 39.3
[2020-11-22] MEDS: Omeprazole 20 MG CAPSULE.DR PO ×2 (06:24→16:04)
[2020-11-22 06:37] LABS: MANUAL DIFF FLAG NO
[2020-11-22 07:05] LABS: Basophils Percent Auto 0.4 % (0-2); Eosinophils Absolute Auto 0.1 X10*3/uL (0.0-0.4); Eosinophils Percent Auto 1.3 % (0-4); Hematocrit 38.3 % (37-47); Hemoglobin 12.6 g/dl (12.0-16.0); Imm Gran Abs Auto 0.05 X10*3/uL (0.00-0.03); Imm Gran Pct Auto 0.5 % (0.0-0.4); Lymphocytes Absolute Auto 1.1 X10*3/uL (1.2-4.9); Lymphocytes Percent Auto 9.7 % (20-40); Mean Corpuscular HGB Conc 32.9 g/dl (31.0-35.0); Mean Corpuscular Hemoglobin 32.7 pg (27.0-33.0); Mean Corpuscular Volume 99.5 fL (80-98); Mean Platelet Volume 9.5 fL (9.4-12.3); Monocytes Absolute Auto 1.1 X10*3/uL (0.1-1.2); Monocytes Percent Auto 9.8 % (2-11); Neutrophils Absolute Auto 8.5 X10*3/uL (2.0-8.3); Neutrophils Percent Auto 78.3 % (45-73); Platelet Count 236 X10*3/uL (160-400); Red Blood Count 3.85 X10*6/uL (4.20-5.50); Red Cell Distribution Width 13.3 % (11.0-16.0); White Blood Count 10.9 X10*3/uL (4.8-10.8)
[2020-11-22 07:26] LABS: Carbon Dioxide 38 mmol/L (22-29)
[2020-11-22 07:28] LABS: Anion Gap 15 (12-20); Blood Urea Nitrogen 16 mg/dL (9-16); Calcium 9.1 mg/dL (8.4-10.2); Chloride 86 mmol/L (96-108); Creatinine Clr Calc Pharmacy 95.6; Estimated Glomerular Filt Rate > 60; Glucose Fasting 103 mg/dL (60-99); Potassium 3.9 mmol/L (3.3-5.1); Sodium 135 mmol/L (135-145)
[2020-11-22 07:36] VITALS: BP 139/81; PULSE 97; RESP 20; TEMP 36.7; O2SAT 99
--- NOTE | 2020-11-22 08:14 | PC.NURSE ---
pt waswitnessed by this RN sitting at bedside, her bed alarm rang, pt reached to end of bed and disabled alarm and states she is fine and does not want that thing making noise. Will update RN
[2020-11-22] MEDS: Heparin Sodium,Porcine Flush 50 UNITS, 0.9 % Sodium Chloride Flush 5 ML IVFLUSH ×3 (08:44→20:05)
[2020-11-22 08:45] VITALS: BP 139/81; PULSE 97
[2020-11-22] MEDS: Metoprolol Tartrate 50 MG TABLET 75 MG PO ×2 (08:45→20:00)
[2020-11-22] MEDS: Flecainide Acetate 50 MG TABLET 150 MG PO ×2 (08:45→19:59)
[2020-11-22] MEDS: Magnesium Oxide 400 MG TABLET PO ×2 (08:45→16:04)
[2020-11-22] MEDS: Apixaban 5 MG TABLET PO ×2 (08:45→20:00)
--- NOTE | 2020-11-22 10:33 | HO.PM.IMPN ---
Subjective Subjective Date of Service: 11/22/20 Interval History: back pain, trouble sleeping Cardiovascular Cardiovascular: Reports no additional cardiovascular complaints Respiratory Respiratory: Reports no additional respiratory complaints Physical Exam Vital Signs: Vital Signs: Last Vital Signs Temp 98.0 F 11/22/20 07:36 Pulse 97 11/22/20 08:45 Resp 20 11/22/20 07:36 BP 139/81 11/22/20 08:45 Pulse Ox 99 11/22/20 07:36 Body Mass Index 39.3 General: AO X 3, no acute distress Resp: CTA b/l CVS: S1,S2, irregular, rapid GI: soft, non tender, non distended Neuro: motor grossly intact Psych: appropriate affect Objective Data Current Medications Generic Name Dose Route Start Last Admin Trade Name Freq PRN Reason Stop Dose Admin Acetaminophen 650 mg 11/17/20 23:10 11/18/20 08:13 Acetaminophen 325 Mg Tablet PO 650 mg Q6H PRN Administration Pain, Mild (Pain Scale 1-3) Apixaban 5 mg 11/18/20 09:00 11/22/20 08:45 Apixaban 5 Mg Tablet PO 5 mg BID DEE Administration Atorvastatin Calcium 10 mg 11/18/20 21:00 11/21/20 20:03 Atorvastatin Calcium 10 Mg Tablet PO 10 mg BEDTIME DEE Administration Heparin Sodium (Porcine) 50 0 units 11/19/20 15:00 11/22/20 08:44 units/ Sodium Chloride 5 ml IVFLUSH 50 unit TID DEE Administration Flecainide Acetate 150 mg 11/18/20 11:00 11/22/20 08:45 Flecainide Acetate 50 Mg Tablet PO 150 mg BID DEE Administration Lorazepam 1 mg 11/18/20 08:57 11/22/20 00:10 Lorazepam 1 Mg Tablet PO 1 mg BID PRN Administration Anxiety Magnesium Oxide 400 mg 11/19/20 08:30 11/22/20 08:45 Magnesium Oxide 400 Mg Tablet PO 400 mg BIDPC DEE Administration Metoprolol Tartrate 75 mg 11/18/20 21:00 11/22/20 08:45 Metoprolol Tartrate 50 Mg Tablet PO 75 mg BID DEE Administration Protocol Omeprazole 20 mg 11/19/20 16:30 11/22/20 06:24 Omeprazole 20 Mg Capsule.Dr PO 20 mg BID@0630,5270 DEE Administration Senna 17.2 mg 11/17/20 23:10 Sennosides 8.6 Mg Tablet PO BEDTIME PRN Constipation Sodium Chloride 3 ml 11/18/20 00:00 11/22/20 08:49 0.9 % Sodium Chloride Flush 3 Ml Syringe IVFLUSH 3 ml QSHIFT DEE Administration Zolpidem Tartrate 5 mg 11/19/20 16:50 11/20/20 21:32 Zolpidem Tartrate 5 Mg Tablet PO 5 mg BEDTIME PRN Administration Insomnia Labs CBC & Chem 7: 11/22/20 06:06 11/22/20 06:06 Microbiology Microbiology Results: Microbiology 11/17/20 22:18 Blood - Venous Blood Culture - Preliminary 11/18/20 00:42 Blood - Venous Blood Culture - Preliminary No growth after 48 hours. 11/18/20 Unknown Urine clean catch - Clean Catch Midstream Urine Culture - Final Assessment and Plan (1) Atrial fibrillation with rapid ventricular response: Status: Acute Assessment and Plan: 75F presented with sob shortness of breath acute diastolic chf with right sided dysfunction and mild pulm htn resolved hyponatremia urine labs initially consistent with SIADH, later had low urine sodium, likely some solute defeciency and polydypsia as well s/p urea, salt tablets, fluid restrict, 3% saline, sodium now 135 gradually from [address] chest, CTH, neck no obvious malignancy, oncology appreciated, will need PET as outpatient for further work up of potential malignant cause of SIADH given no obvious offending meds, no obvious lung pathology, and positive cancer history nephro following etoh dependence no signs of withrdawl at this time, CIWA afib rvr still in afib flecainide, lopressor, eliquis plan for CV on tuesday 08/08 blood cultures GPC on gram stain nothing growing on plate suspect contaminant, will hold off on abx for now, but follow up speciation
[2020-11-22 11:11] VITALS: BP 132/66; PULSE 75; RESP 20; TEMP 36.8
--- NOTE | 2020-11-22 12:26 | PM.PNNEP ---
Subjective Subjective Date of Service: 11/22/20 Interval history: Sodium normalized nicely. Physical Exam Vital Signs: Vital Signs: Last Vital Signs Temp 98.2 F 11/22/20 11:11 Pulse 75 11/22/20 11:11 Resp 20 11/22/20 11:11 BP 132/66 11/22/20 11:11 Pulse Ox 99 11/22/20 07:36 Body Mass Index 39.3 Const: General: cooperative, comfortable and no acute distress Orientation/consciousness: patient oriented x3 HENMT: Other: Unremarkable Neck: Neck: Yes normal visual inspection Chest: Chest palpation & inspection: normal inspection of the chest Resp: Auscultation: clear to auscultation bilaterally, no crackles and no wheezes Cardio: Jugular venous distension: no JVD Palpation: normal PMI Heart sounds: S1 normal heart sound present, S2 normal heart sound present, no gallops, no murmurs and no rubs GI: Palpation (GI): Soft to palpation Back/Spine/Pelvis: Other: unremarkable Skin: General skin exam: no rashes or lesions noted Neuro: General: patient oriented x3 Extrem: General: Yes no clubbing, cyanosis or edema Psych: Mental Status: mental status grossly normal Objective Data Labs CBC & Chem 7: 11/22/20 06:06 11/22/20 06:06 Labs: Laboratory Results - last 24 hr 11/21/20 11/21/20 11/22/20 18:27 18:27 06:06 WBC 10.9 H RBC 3.85 L Hgb 12.6 Hct 38.3 MCV 99.5 H MCH 32.7 MCHC 32.9 RDW 13.3 Plt Count 236 MPV 9.5 Immature Gran % (Auto) 0.5 H Neut % (Auto) 78.3 H Lymph % (Auto) 9.7 L [place] % (Auto) 9.8 Eos % (Auto) 1.3 Baso % (Auto) 0.4 Lymph # (Auto) 1.1 L [place] # (Auto) 1.1 Eos # (Auto) 0.1 Baso # (Auto) 0.0 Abs Immat Gran (auto) 0.05 H Absolute Neuts (auto) 8.5 H Absolute Nucleated RBC 0.000 Nucleated RBC % (auto) 0.0 Sodium Potassium Chloride Carbon Dioxide Anion Gap BUN Creatinine Estim Creat Clear Calc Estimated GFR Fasting Glucose Calcium Urine Osmolality 518 Ur Random Sodium < 20.0 11/22/20 06:06 WBC RBC Hgb Hct MCV MCH MCHC RDW Plt Count MPV Immature Gran % (Auto) Neut % (Auto) Lymph % (Auto) [place] % (Auto) Eos % (Auto) Baso % (Auto) Lymph # (Auto) [place] # (Auto) Eos # (Auto) Baso # (Auto) Abs Immat Gran (auto) Absolute Neuts (auto) Absolute Nucleated RBC Nucleated RBC % (auto) Sodium 135 Potassium 3.9 Chloride 86 L Carbon Dioxide 38 H Anion Gap 15 BUN 16 Creatinine 0.66 Estim Creat Clear Calc 95.6 Estimated GFR > 60 Fasting Glucose 103 H Calcium 9.1 Urine Osmolality Ur Random Sodium Microbiology Microbiology Results: Microbiology 11/17/20 22:18 Blood - Venous Blood Culture - Preliminary 11/18/20 00:42 Blood - Venous Blood Culture - Preliminary No growth after 48 hours. 11/18/20 Unknown Urine clean catch - Clean Catch Midstream Urine Culture - Final Assessment & Plan Assessment and plan (1) Atrial fibrillation with rapid ventricular response: Status: Acute Assessment and Plan: 1. Euvolemic HypoNa: originally c/w SIADH high Opal and Uosm. Did well with urea. Repeat Urine lytes later showed Opal <20. Overall improved nicely over time. Plan: - Encourage PO diet. - encourage solutes by increasing ensures over water. Time Spent With Patient Time: Total time spent is greater than 50% in coordination of care (as documented) at patient's floor/unit and/or counseling patient:
[2020-11-22 15:33] VITALS: BP 159/95; PULSE 96; RESP 18; TEMP 36.4; O2SAT 99
[2020-11-22 19:26] VITALS: BP 120/83; PULSE 104; RESP 18; TEMP 36.7; O2SAT 100
[2020-11-22] MEDS: Atorvastatin Calcium 10 MG TABLET PO (20:00)
[2020-11-22] MEDS: Zolpidem Tartrate 5 MG TABLET PO (20:01)
[2020-11-23] VITALS (9 sets, daily range): BP systolic 120–150; BP diastolic 66–89; PULSE 85–97; RESP 17–20; TEMP 36.3–36.7; O2SAT 90–100; BMI 39.3
[2020-11-23] MEDS: LORazepam 1 MG TABLET PO ×2 (01:55→14:38)
[2020-11-23 04:34] LABS: MANUAL DIFF FLAG NO
[2020-11-23 04:43] LABS: Basophils Percent Auto 0.3 % (0-2); Eosinophils Absolute Auto 0.1 X10*3/uL (0.0-0.4); Hematocrit 40.1 % (37-47); Imm Gran Abs Auto 0.03 X10*3/uL (0.00-0.03); Imm Gran Pct Auto 0.2 % (0.0-0.4); Lymphocytes Absolute Auto 1.2 X10*3/uL (1.2-4.9); Lymphocytes Percent Auto 9.9 % (20-40); Mean Corpuscular HGB Conc 32.4 g/dl (31.0-35.0); Mean Corpuscular Hemoglobin 32.7 pg (27.0-33.0); Mean Platelet Volume 9.1 fL (9.4-12.3); Monocytes Absolute Auto 0.9 X10*3/uL (0.1-1.2); Monocytes Percent Auto 7.7 % (2-11); Neutrophils Absolute Auto 9.8 X10*3/uL (2.0-8.3); Neutrophils Percent Auto 80.9 % (45-73); Platelet Count 250 X10*3/uL (160-400); Red Blood Count 3.97 X10*6/uL (4.20-5.50); Red Cell Distribution Width 13.4 % (11.0-16.0); White Blood Count 12.1 X10*3/uL (4.8-10.8)
[2020-11-23 05:12] LABS: Anion Gap 15 (12-20); Blood Urea Nitrogen 12 mg/dL (9-16); Calcium 9.1 mg/dL (8.4-10.2); Carbon Dioxide 39 mmol/L (22-29); Chloride 86 mmol/L (96-108); Creatinine Clr Calc Pharmacy 95.6; Estimated Glomerular Filt Rate > 60; Glucose Fasting 109 mg/dL (60-99); Magnesium 1.8 mg/dL (1.6-2.6); Potassium 4.5 mmol/L (3.3-5.1); Sodium 135 mmol/L (135-145)
[2020-11-23] MEDS: Omeprazole 20 MG CAPSULE.DR PO ×2 (06:23→16:56)
[2020-11-23] MEDS: Heparin Sodium,Porcine Flush 50 UNITS, 0.9 % Sodium Chloride Flush 5 ML IVFLUSH ×3 (08:50→22:32)
[2020-11-23] MEDS: Magnesium Oxide 400 MG TABLET PO ×2 (08:51→16:56)
[2020-11-23] MEDS: Metoprolol Tartrate 50 MG TABLET 75 MG PO ×2 (08:51→22:32)
[2020-11-23] MEDS: Flecainide Acetate 50 MG TABLET 150 MG PO ×2 (08:52→22:34)
[2020-11-23] MEDS: Apixaban 5 MG TABLET PO ×2 (08:53→22:34)
--- NOTE | 2020-11-23 12:11 | HO.PM.IMPN ---
Subjective Subjective Date of Service: 11/23/20 Interval History: back pain improved Cardiovascular Cardiovascular: Reports no additional cardiovascular complaints Gastrointestinal Gastrointestinal: Reports no additional gastrointestinal complaints Physical Exam Vital Signs: Vital Signs: Last Vital Signs Temp 97.6 F 11/23/20 11:36 Pulse 89 11/23/20 11:36 Resp 18 11/23/20 11:36 BP 120/66 11/23/20 11:36 Pulse Ox 98 11/23/20 11:36 Body Mass Index 39.3 General: AO X 3, no acute distress Resp: CTA bilateral CVS: S1,S2,irregular GI: soft, non tender, non distended Neuro: motor grossly intact Psych: appropriate affect Objective Data Current Medications Generic Name Dose Route Start Last Admin Trade Name Freq PRN Reason Stop Dose Admin Acetaminophen 650 mg 11/17/20 23:10 11/18/20 08:13 Acetaminophen 325 Mg Tablet PO 650 mg Q6H PRN Administration Pain, Mild (Pain Scale 1-3) Apixaban 5 mg 11/18/20 09:00 11/23/20 08:53 Apixaban 5 Mg Tablet PO 5 mg BID DEE Administration Atorvastatin Calcium 10 mg 11/18/20 21:00 11/22/20 20:00 Atorvastatin Calcium 10 Mg Tablet PO 10 mg BEDTIME DEE Administration Heparin Sodium (Porcine) 50 0 units 11/19/20 15:00 11/23/20 08:50 units/ Sodium Chloride 5 ml IVFLUSH 50 unit TID DEE Administration Flecainide Acetate 150 mg 11/18/20 11:00 11/23/20 08:52 Flecainide Acetate 50 Mg Tablet PO 150 mg BID DEE Administration Lorazepam 1 mg 11/18/20 08:57 11/23/20 01:55 Lorazepam 1 Mg Tablet PO 1 mg BID PRN Administration Anxiety Magnesium Oxide 400 mg 11/19/20 08:30 11/23/20 08:51 Magnesium Oxide 400 Mg Tablet PO 400 mg BIDPC DEE Administration Metoprolol Tartrate 75 mg 11/18/20 21:00 11/23/20 08:51 Metoprolol Tartrate 50 Mg Tablet PO 75 mg BID DEE Administration Protocol Omeprazole 20 mg 11/19/20 16:30 11/23/20 06:23 Omeprazole 20 Mg Capsule.Dr PO 20 mg BID@0630,1630 DEE Administration Senna 17.2 mg 11/17/20 23:10 Sennosides 8.6 Mg Tablet PO BEDTIME PRN Constipation Sodium Chloride 3 ml 11/18/20 00:00 11/23/20 08:53 0.9 % Sodium Chloride Flush 3 Ml Syringe IVFLUSH Not Given QSHIFT DEE Zolpidem Tartrate 5 mg 11/19/20 16:50 11/22/20 20:01 Zolpidem Tartrate 5 Mg Tablet PO 5 mg BEDTIME PRN Administration Insomnia Labs CBC & Chem 7: 11/23/20 04:14 11/23/20 04:15 Microbiology Microbiology Results: Microbiology 11/17/20 22:18 Blood - Venous Blood Culture - Preliminary 11/18/20 00:42 Blood - Venous Blood Culture - Final No growth after 5 days. 11/18/20 Unknown Urine clean catch - Clean Catch Midstream Urine Culture - Final Assessment and Plan (1) Atrial fibrillation with rapid ventricular response: Status: Acute Assessment and Plan: 75F presented with sob shortness of breath acute diastolic chf with right sided dysfunction and mild pulm htn resolved hyponatremia urine labs initially consistent with SIADH, later had low urine sodium, likely some solute defeciency and polydypsia as well s/p urea, salt tablets, fluid restrict, 3% saline, sodium now 135 gradually from [address] chest, CTH, neck no obvious malignancy, oncology appreciated, will need PET as outpatient for further work up of potential malignant cause of SIADH given no obvious offending meds, no obvious lung pathology, and positive cancer history etoh dependence no signs of withrdawl at this time, CIWA afib rvr still in afib flecainide, lopressor, eliquis plan for CV tomorrow, npo after midnight 1/2 blood cultures GPC on gram stain nothing growing on plate suspect contaminant, will hold off on abx for now, but follow up speciation
--- NOTE | 2020-11-23 12:17 | PM.PNCARD ---
Subjective Subjective Date of Service: 11/23/20 Interval history: Continues to be in atrial fibrillation with controlled rates. She is saying her breathing is okay right now. Review of Systems Review of Systems No palpitations Yes all other systems are reviewed and are negative Physical Exam Vital Signs: Last Vital Signs Temp 97.6 F 11/23/20 11:36 Pulse 89 11/23/20 11:36 Resp 18 11/23/20 11:36 BP 120/66 11/23/20 11:36 Pulse Ox 98 11/23/20 11:36 Body Mass Index 39.3 GENERAL APPEARANCE: in no acute distress. HEENT: unremarkable. HEAD: normocephalic, atraumatic. NECK/THYROID: no carotid bruit, no jugular venous distention. SKIN: no suspicious lesions, warm and dry. HEART: no murmurs, irregular rate and rhythm, S1, S2 normal. LUNGS: clear to auscultation bilaterally. ABDOMEN: normal, bowel sounds present, soft, nontender, nondistended. EXTREMITIES: no clubbing, cyanosis, or edema. PERIPHERAL PULSES: equal. NEUROLOGIC: nonfocal, alert and oriented. Results Labs and Meds Result diagrams: 11/23/20 04:14 11/23/20 04:15 Lab results: Laboratory Results - last 24 hr 11/23/20 11/23/20 04:14 04:15 WBC 12.1 H RBC 3.97 L Hgb 13.0 Hct 40.1 MCV 101.0 H MCH 32.7 MCHC 32.4 RDW 13.4 Plt Count 250 MPV 9.1 L Immature Gran % (Auto) 0.2 Neut % (Auto) 80.9 H Lymph % (Auto) 9.9 L [place] % (Auto) 7.7 Eos % (Auto) 1.0 Baso % (Auto) 0.3 Lymph # (Auto) 1.2 [place] # (Auto) 0.9 Eos # (Auto) 0.1 Baso # (Auto) 0.0 Abs Immat Gran (auto) 0.03 Absolute Neuts (auto) 9.8 H Absolute Nucleated RBC 0.000 Nucleated RBC % (auto) 0.0 Sodium 135 Potassium 4.5 Chloride 86 L Carbon Dioxide 39 H Anion Gap 15 BUN 12 Creatinine 0.66 Estim Creat Clear Calc 95.6 Estimated GFR > 60 Fasting Glucose 109 H Calcium 9.1 Magnesium 1.8 Progress Note: A&P Assessment and plan (1) Essential hypertension: Status: Acute (2) Atrial fibrillation with rapid ventricular response: Status: Acute Assessment and Plan: 75-year-old female with AFib. She is on flecainide, Eliquis and metoprolol. Please keep her NPO after midnight. We plan to do cardioversion tomorrow. Thank you for allowing me to participate in the care of your patient. Please feel free to contact me if you have any questions. Fall Risk Details Current Medications: Current Medications Generic Name Dose Route Start Last Admin Trade Name Freq PRN Reason Stop Dose Admin Acetaminophen 650 mg 11/17/20 23:10 11/18/20 08:13 Acetaminophen 325 Mg Tablet PO 650 mg Q6H PRN Administration Pain, Mild (Pain Scale 1-3) Apixaban 5 mg 11/18/20 09:00 11/23/20 08:53 Apixaban 5 Mg Tablet PO 5 mg BID DEE Administration Atorvastatin Calcium 10 mg 11/18/20 21:00 11/22/20 20:00 Atorvastatin Calcium 10 Mg Tablet PO 10 mg BEDTIME DEE Administration Heparin Sodium (Porcine) 50 0 units 11/19/20 15:00 11/23/20 08:50 units/ Sodium Chloride 5 ml IVFLUSH 50 unit TID DEE Administration Flecainide Acetate 150 mg 11/18/20 11:00 11/23/20 08:52 Flecainide Acetate 50 Mg Tablet PO 150 mg BID DEE Administration Lorazepam 1 mg 11/18/20 08:57 11/23/20 01:55 Lorazepam 1 Mg Tablet PO 1 mg BID PRN Administration Anxiety Magnesium Oxide 400 mg 11/19/20 08:30 11/23/20 08:51 Magnesium Oxide 400 Mg Tablet PO 400 mg BIDPC DEE Administration Metoprolol Tartrate 75 mg 11/18/20 21:00 11/23/20 08:51 Metoprolol Tartrate 50 Mg Tablet PO 75 mg BID DEE Administration Protocol Omeprazole 20 mg 11/19/20 16:30 11/23/20 06:23 Omeprazole 20 Mg Capsule. PO 20 mg BID@0630,0260 DEE Administration Senna 17.2 mg 11/17/20 23:10 Sennosides 8.6 Mg Tablet PO BEDTIME PRN Constipation Sodium Chloride 3 ml 11/18/20 00:00 11/23/20 08:53 0.9 % Sodium Chloride Flush 3 Ml Syringe IVFLUSH Not Given QSHIFT DEE Zolpidem Tartrate 5 mg 11/19/20 16:50 11/22/20 20:01 Zolpidem Tartrate 5 Mg Tablet PO 5 mg BEDTIME PRN Administration Insomnia Time Spent With Patient Time: Total time spent is greater than 50% in coordination of care (as documented) at patient's floor/unit and/or counseling patient: Time with patient: less than 15 minutes
[2020-11-23] MEDS: Atorvastatin Calcium 10 MG TABLET PO (22:34)
[2020-11-23] MEDS: Zolpidem Tartrate 5 MG TABLET PO (22:48)
[2020-11-24] VITALS (13 sets, daily range): BP systolic 85–178; BP diastolic 47–97; PULSE 65–100; RESP 16–20; TEMP 35.9–36.8; O2SAT 88–100; BMI 39.6
--- NOTE | 2020-11-24 | ECG_ITS ---
Test Reason : S/P CARDIOVERSION Blood Pressure : / mmHG Vent. Rate : 065 BPM Atrial Rate : 065 BPM P-R Int : 198 ms QRS Dur : 104 ms QT Int : 424 ms P-R-T Axes : 084 -16 058 degrees QTc Int : 440 ms Normal sinus rhythm Normal ECG When compared with ECG of 17-NOV-2020 22:58, Sinus rhythm has replaced Atrial fibrillation Vent. rate has decreased BY 55 BPM Non-specific change in ST segment in Lateral leads Nonspecific T wave abnormality no longer evident in Inferior leads Referred By: Navi Wilson Electronically Signed By:Navi Wilson
[2020-11-24] MEDS: LORazepam 1 MG TABLET PO (00:29)
[2020-11-24] MEDS: 0.9 % Sodium Chloride Flush 3 ML SYRINGE IVFLUSH ×4 (00:30→21:25)
[2020-11-24 06:10] LABS: MANUAL DIFF FLAG NO
[2020-11-24 06:20] LABS: Basophils Percent Auto 0.4 % (0-2); Eosinophils Absolute Auto 0.2 X10*3/uL (0.0-0.4); Eosinophils Percent Auto 1.5 % (0-4); Hematocrit 38.6 % (37-47); Hemoglobin 12.6 g/dl (12.0-16.0); Imm Gran Abs Auto 0.06 X10*3/uL (0.00-0.03); Imm Gran Pct Auto 0.5 % (0.0-0.4); Lymphocytes Absolute Auto 1.1 X10*3/uL (1.2-4.9); Lymphocytes Percent Auto 9.9 % (20-40); Mean Corpuscular HGB Conc 32.6 g/dl (31.0-35.0); Mean Corpuscular Hemoglobin 32.9 pg (27.0-33.0); Mean Corpuscular Volume 100.8 fL (80-98); Mean Platelet Volume 9.3 fL (9.4-12.3); Monocytes Absolute Auto 1.1 X10*3/uL (0.1-1.2); Monocytes Percent Auto 9.8 % (2-11); Neutrophils Absolute Auto 8.6 X10*3/uL (2.0-8.3); Neutrophils Percent Auto 77.9 % (45-73); Platelet Count 235 X10*3/uL (160-400); Red Blood Count 3.83 X10*6/uL (4.20-5.50); Red Cell Distribution Width 13.4 % (11.0-16.0)
[2020-11-24 06:39] LABS: Anion Gap 14 (12-20); Blood Urea Nitrogen 14 mg/dL (9-16); Calcium 9.3 mg/dL (8.4-10.2); Carbon Dioxide 38 mmol/L (22-29); Chloride 87 mmol/L (96-108); Creatinine Clr Calc Pharmacy 91.9; Estimated Glomerular Filt Rate > 60; Glucose Fasting 112 mg/dL (60-99); Magnesium 1.8 mg/dL (1.6-2.6); Potassium 4.6 mmol/L (3.3-5.1); Sodium 134 mmol/L (135-145)
--- NOTE | 2020-11-24 08:22 | MHC.CM.PN ---
dc plan remains the same, for patient to return home no svcs. cm to cont. to follow.
[2020-11-24] MEDS: Metoprolol Tartrate 50 MG TABLET 75 MG PO ×2 (08:42→21:19)
[2020-11-24] MEDS: Flecainide Acetate 50 MG TABLET 150 MG PO ×2 (08:42→21:19)
[2020-11-24] MEDS: Apixaban 5 MG TABLET PO ×2 (08:43→21:19)
[2020-11-24] MEDS: Heparin Sodium,Porcine Flush 50 UNITS, 0.9 % Sodium Chloride Flush 5 ML IVFLUSH ×3 (08:43→21:26)
[2020-11-24] MEDS: Magnesium Oxide 400 MG TABLET PO ×2 (08:43→16:07)
--- NOTE | 2020-11-24 11:51 | PC.NURSE ---
PATIENT IS WEARING 8 RINGS AND ONE BRACELET. PATIENT STATES SHE CANNOT GET HER RINGS OFF. STATES SHE HAS NOT BEEN ABLE TO GET HER RINGS OFF FOR YEARS. BRACELET WAS REMOVED. PT HAS LOWER 02 SATS 90. TO 92 PERCENT. LUNGS CLEAR
--- NOTE | 2020-11-24 12:01 | PC.NURSE ---
per dr. sue anesthesiologist the rings don't matter.
--- NOTE | 2020-11-24 12:24 | HO.ANESPROP2 ---
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 (Acute) Essential hypertension (Acute) Atrial fibrillation with rapid ventricular response (Acute) Atrial fibrillation, new onset (Acute) Hypomagnesemia (Acute) Hyponatremia (Acute) Past Medical History Medical History Afib Essential hypertension HTN (hypertension) Myocardial infarct Throat cancer Functional capacity: uses cane/walker Social History Social History Household Members: Family Housing: House Alcohol intake: current Alcohol type: beer and hard liquor Smoking Status: Former smoker service: No Current occupational status: retired [employer] Allergies Allergy/AdvReac Type Severity Reaction Status Date / Time SEASONAL ALLERGIES Allergy Unknown SNEEZING Uncoded 04/23/20 15:17 RUNNY NOSE Active Medications: Current Medications Generic Name Dose Route Start Last Admin Trade Name Freq PRN Reason Stop Dose Admin Acetaminophen 650 mg 11/17/20 23:10 11/18/20 08:13 Acetaminophen 325 Mg Tablet PO 650 mg Q6H PRN Administration Pain, Mild (Pain Scale 1-3) Apixaban 5 mg 11/18/20 09:00 11/24/20 08:43 Apixaban 5 Mg Tablet PO 5 mg BID DEE Administration Atorvastatin Calcium 10 mg 11/18/20 21:00 11/23/20 22:34 Atorvastatin Calcium 10 Mg Tablet PO 10 mg BEDTIME DEE Administration Heparin Sodium (Porcine) 50 0 units 11/19/20 15:00 11/24/20 08:43 units/ Sodium Chloride 5 ml IVFLUSH 50 unit TID DEE Administration Flecainide Acetate 150 mg 11/18/20 11:00 11/24/20 08:42 Flecainide Acetate 50 Mg Tablet PO 150 mg BID DEE Administration Lorazepam 1 mg 11/18/20 08:57 11/24/20 00:29 Lorazepam 1 Mg Tablet PO 1 mg BID PRN Administration Anxiety Magnesium Oxide 400 mg 11/19/20 08:30 11/24/20 08:43 Magnesium Oxide 400 Mg Tablet PO 400 mg BIDPC DEE Administration Metoprolol Tartrate 75 mg 11/18/20 21:00 11/24/20 08:42 Metoprolol Tartrate 50 Mg Tablet PO 75 mg BID [facility] Administration Protocol Omeprazole 20 mg 11/19/20 16:30 11/24/20 05:24 Omeprazole 20 Mg Capsule. PO Not Given BID@0630,3830 [facility] Senna 17.2 mg 11/17/20 23:10 Sennosides 8.6 Mg Tablet PO BEDTIME PRN Constipation Sodium Chloride 3 ml 11/18/20 00:00 11/24/20 08:44 0.9 % Sodium Chloride Flush 3 Ml Syringe IVFLUSH 3 ml QSHIFT [facility] Administration Zolpidem Tartrate 5 mg 11/19/20 16:50 11/23/20 22:48 Zolpidem Tartrate 5 Mg Tablet PO 5 mg BEDTIME PRN Administration Insomnia Home Medications Medication Instructions Recorded Confirmed Last Taken Type flecainide 1 tab PO BID 11/18/20 11/18/20 Unknown History lorazepam 1 tab PO BID PRN 11/18/20 11/18/20 Unknown History metoprolol tartrate 1 tab PO BID 11/18/20 11/18/20 Unknown History omeprazole 1 cap PO BID 11/18/20 11/18/20 Unknown History simvastatin 1 tab PO DAILY 11/18/20 11/18/20 Unknown History Exam Exam Date and Time: November 24, 2020 1224 Height,Weight and Vital Signs: Height 5 ft 6 in Weight 111.5 kg Last Vital Signs Temp 997.9 F H 11/24/20 11:24 Pulse 87 11/24/20 11:24 Resp 18 11/24/20 11:24 BP 117/72 11/24/20 11:24 Pulse Ox 92 11/24/20 11:24 Pertinent Lab Results Pertinent Lab Results: Laboratory Tests 11/17/20 11/17/20 11/17/20 22:05 22:05 22:05 WBC 12.2 H RBC 3.85 L Hgb 12.9 Hct 36.5 L MCV 94.8 MCH 33.5 H MCHC 35.3 H RDW 12.9 Plt Count 233 MPV 9.3 L Immature Gran % (Auto) 0.5 H Neut % (Auto) 87.3 H Lymph % (Auto) 6.1 L [place] % (Auto) 5.9 Eos % (Auto) 0.0 Baso % (Auto) 0.2 Lymph # (Auto) 0.7 L [place] # (Auto) 0.7 Eos # (Auto) 0.0 Baso # (Auto) 0.0 Abs Immat Gran (auto) 0.06 H Absolute Neuts (auto) 10.7 H Absolute Nucleated RBC 0.000 Nucleated RBC % (auto) 0.0 PT INR APTT D-Dimer VBG pH VBG pCO2 VBG pO2 VBG HCO3 VBG O2 Saturation VBG Base Excess Sodium 119 L* Potassium 4.0 Chloride 83 L Carbon Dioxide 28 Anion Gap 13 BUN 10 Creatinine 0.62 Estim Creat Clear Calc 106.1 Estimated GFR > 60 Random Glucose 171 H Fasting Glucose Osmolality Lactic Acid Uric Acid Calcium 8.1 L Magnesium 1.4 L* Total Bilirubin 0.7 AST 24 ALT 18 Alkaline Phosphatase 69 Troponin I High Sens B-Natriuretic Peptide 704 H Total Protein 6.6 Albumin 3.9 TSH Cortisol Urine Color Urine Appearance Urine pH Ur Specific [place] Urine Protein Urine Glucose (UA) Urine Ketones Urine Blood Urine Nitrite Ur Leukocyte Esterase Urine RBC Urine WBC Ur Squamous Epith Cells Urine Bacteria Urine Mucus Urine Osmolality Ur Random Sodium Ur Random Chloride Ur Random Uric Acid COVID-19 ([facility]) COVID-Universal Ad 11/17/20 11/17/20 11/17/20 22:05 22:05 22:05 WBC RBC Hgb Hct MCV MCH MCHC RDW Plt Count MPV Immature Gran % (Auto) Neut % (Auto) Lymph % (Auto) [place] % (Auto) Eos % (Auto) Baso % (Auto) Lymph # (Auto) [place] # (Auto) Eos # (Auto) Baso # (Auto) Abs Immat Gran (auto) Absolute Neuts (auto) Absolute Nucleated RBC Nucleated RBC % (auto) PT INR APTT D-Dimer VBG pH VBG pCO2 VBG pO2 VBG HCO3 VBG O2 Saturation VBG Base Excess Sodium Potassium Chloride Carbon Dioxide Anion Gap BUN Creatinine Estim Creat Clear Calc Estimated GFR Random Glucose Fasting Glucose Osmolality Lactic Acid 1.5 Uric Acid Calcium Magnesium Total Bilirubin AST ALT Alkaline Phosphatase Troponin I High Sens 7.6 B-Natriuretic Peptide Total Protein Albumin TSH Cortisol Urine Color Urine Appearance Urine pH Ur Specific [place] Urine Protein Urine Glucose (UA) Urine Ketones Urine Blood Urine Nitrite Ur Leukocyte Esterase Urine RBC Urine WBC Ur Squamous Epith Cells Urine Bacteria Urine Mucus Urine Osmolality Ur Random Sodium Ur Random Chloride Ur Random Uric Acid COVID-19 ([facility]) Negative COVID-19 LRN Com See Note 11/17/20 11/18/20 11/18/20 22:10 00:42 00:42 WBC RBC Hgb Hct MCV MCH MCHC RDW Plt Count MPV Immature Gran % (Auto) Neut % (Auto) Lymph % (Auto) [place] % (Auto) Eos % (Auto) Baso % (Auto) Lymph # (Auto) [place] # (Auto) Eos # (Auto) Baso # (Auto) Abs Immat Gran (auto) Absolute Neuts (auto) Absolute Nucleated RBC Nucleated RBC % (auto) PT 16.0 H Cancelled INR 1.3 H Cancelled APTT 34.4 D-Dimer VBG pH 7.41 VBG pCO2 40 VBG pO2 80 VBG HCO3 26 VBG O2 Saturation 94.0 VBG Base Excess 1.9 Sodium Potassium Chloride Carbon Dioxide Anion Gap BUN Creatinine Estim Creat Clear Calc Estimated GFR Random Glucose Fasting Glucose Osmolality Lactic Acid Uric Acid Calcium Magnesium Total Bilirubin AST ALT Alkaline Phosphatase Troponin I High Sens B-Natriuretic Peptide Total Protein Albumin TSH Cortisol Urine Color Urine Appearance Urine pH Ur Specific [place] Urine Protein Urine Glucose (UA) Urine Ketones Urine Blood Urine Nitrite Ur Leukocyte Esterase Urine RBC Urine WBC Ur Squamous Epith Cells Urine Bacteria Urine Mucus Urine Osmolality Ur Random Sodium Ur Random Chloride Ur Random Uric Acid COVID-19 ([facility]) COVID-19 Clin Com 11/18/20 11/18/20 11/18/20 00:42 00:42 06:52 WBC 14.0 H RBC 3.97 L Hgb 13.2 Hct 37.7 MCV 95.0 MCH 33.2 H MCHC 35.0 RDW 12.7 Plt Count 248 MPV 9.3 L Immature Gran % (Auto) 0.4 Neut % (Auto) 81.4 H Lymph % (Auto) 9.6 L [place] % (Auto) 8.0 Eos % (Auto) 0.4 Baso % (Auto) 0.2 Lymph # (Auto) 1.3 [place] # (Auto) 1.1 Eos # (Auto) 0.1 Baso # (Auto) 0.0 Abs Immat Gran (auto) 0.06 H Absolute Neuts (auto) 11.4 H Absolute Nucleated RBC 0.000 Nucleated RBC % (auto) 0.0 PT INR APTT D-Dimer VBG pH VBG pCO2 VBG pO2 VBG HCO3 VBG O2 Saturation VBG Base Excess Sodium 120 L* Potassium 3.9 Chloride 82 L Carbon Dioxide 29 Anion Gap 13 BUN 10 Creatinine 0.60 Estim Creat Clear Calc 109.7 Estimated GFR > 60 Random Glucose 144 H Fasting Glucose Osmolality Lactic Acid Uric Acid Calcium 8.4 Magnesium 1.9 Total Bilirubin AST ALT Alkaline Phosphatase Troponin I High Sens 9.2 B-Natriuretic Peptide Total Protein Albumin TSH Cortisol Urine Color Urine Appearance Urine pH Ur Specific [place] Urine Protein Urine Glucose (UA) Urine Ketones Urine Blood Urine Nitrite Ur Leukocyte Esterase Urine RBC Urine WBC Ur Squamous Epith Cells Urine Bacteria Urine Mucus Urine Osmolality Ur Random Sodium Ur Random Chloride Ur Random Uric Acid COVID-19 ([facility]) COVID-19 [employer] 11/18/20 11/18/20 11/18/20 06:52 06:52 12:23 WBC RBC Hgb Hct MCV MCH MCHC RDW Plt Count MPV Immature Gran % (Auto) Neut % (Auto) Lymph % (Auto) [place] % (Auto) Eos % (Auto) Baso % (Auto) Lymph # (Auto) [place] # (Auto) Eos # (Auto) Baso # (Auto) Abs Immat Gran (auto) Absolute Neuts (auto) Absolute Nucleated RBC Nucleated RBC % (auto) PT INR APTT D-Dimer VBG pH VBG pCO2 VBG pO2 VBG HCO3 VBG O2 Saturation VBG Base Excess Sodium 121 L Potassium 3.7 Chloride 84 L Carbon Dioxide 27 Anion Gap 14 BUN 8 L Creatinine 0.61 Estim Creat Clear Calc 107.8 Estimated GFR > 60 Random Glucose 123 H Fasting Glucose Osmolality Lactic Acid Uric Acid Calcium 8.5 Magnesium Total Bilirubin AST ALT Alkaline Phosphatase Troponin I High Sens B-Natriuretic Peptide Total Protein Albumin TSH 1.89 Cortisol 29.6 H Urine Color YELLOW Urine Appearance HAZY Urine pH 6.0 Ur Specific [place] 1.025 Urine Protein NEG Urine Glucose (UA) NEG Urine Ketones 5 Urine Blood NEG Urine Nitrite NEG Ur Leukocyte Esterase 1+ H Urine RBC 0-2 Urine WBC 10-14 H Ur Squamous Epith Cells 1+ Urine Bacteria NONE Urine Mucus TRACE Urine Osmolality Ur Random Sodium Ur Random Chloride Ur Random Uric Acid COVID-19 ([facility]) COVID-19 [employer] 11/18/20 11/18/20 11/18/20 12:23 12:23 12:23 WBC RBC Hgb Hct MCV MCH MCHC RDW Plt Count MPV Immature Gran % (Auto) Neut % (Auto) Lymph % (Auto) [place] % (Auto) Eos % (Auto) Baso % (Auto) Lymph # (Auto) [place] # (Auto) Eos # (Auto) Baso # (Auto) Abs Immat Gran (auto) Absolute Neuts (auto) Absolute Nucleated RBC Nucleated RBC % (auto) PT INR APTT D-Dimer VBG pH VBG pCO2 VBG pO2 VBG HCO3 VBG O2 Saturation VBG Base Excess Sodium Potassium Chloride Carbon Dioxide Anion Gap BUN Creatinine Estim Creat Clear Calc Estimated GFR Random Glucose Fasting Glucose Osmolality Lactic Acid Uric Acid Calcium Magnesium Total Bilirubin AST ALT Alkaline Phosphatase Troponin I High Sens B-Natriuretic Peptide Total Protein Albumin TSH Cortisol Urine Color Urine Appearance Urine pH Ur Specific [place] Urine Protein Urine Glucose (UA) Urine Ketones Urine Blood Urine Nitrite Ur Leukocyte Esterase Urine RBC Urine WBC Ur Squamous Epith Cells Urine Bacteria Urine Mucus Urine Osmolality 513 Ur Random Sodium 73.0 Ur Random Chloride Ur Random Uric Acid 43.2 COVID-19 ([facility]) COVID-19 LRN [facility] 11/18/20 11/18/20 11/18/20 13:56 20:55 20:55 WBC RBC Hgb Hct MCV MCH MCHC RDW Plt Count MPV Immature Gran % (Auto) Neut % (Auto) Lymph % (Auto) [place] % (Auto) Eos % (Auto) Baso % (Auto) Lymph # (Auto) [place] # (Auto) Eos # (Auto) Baso # (Auto) Abs Immat Gran (auto) Absolute Neuts (auto) Absolute Nucleated RBC Nucleated RBC % (auto) PT INR APTT D-Dimer VBG pH VBG pCO2 VBG pO2 VBG HCO3 VBG O2 Saturation VBG Base Excess Sodium 120 L* 120 L* Cancelled Potassium 4.0 3.2 L Cancelled Chloride 82 L 74 L Cancelled Carbon Dioxide 29 33 H Cancelled Anion Gap 13 16 Cancelled BUN 8 L 8 L Creatinine 0.66 0.66 Estim Creat Clear Calc 99.6 99.6 Estimated GFR > 60 > 60 Random Glucose 145 H Fasting Glucose 195 H Osmolality Lactic Acid Uric Acid 2.7 Calcium 8.6 8.4 Magnesium Total Bilirubin AST ALT Alkaline Phosphatase Troponin I High Sens B-Natriuretic Peptide Total Protein Albumin TSH Cortisol Urine Color Urine Appearance Urine pH Ur Specific [place] Urine Protein Urine Glucose (UA) Urine Ketones Urine Blood Urine Nitrite Ur Leukocyte Esterase Urine RBC Urine WBC Ur Squamous Epith Cells Urine Bacteria Urine Mucus Urine Osmolality Ur Random Sodium Ur Random Chloride Ur Random Uric Acid COVID-19 ([facility]) COVID-19 [employer] 11/18/20 11/19/20 11/19/20 20:55 01:45 05:25 WBC 11.7 H RBC 3.84 L Hgb 12.5 Hct 35.8 L MCV 93.2 MCH 32.6 MCHC 34.9 RDW 12.8 Plt Count 237 MPV 9.4 Immature Gran % (Auto) 0.4 Neut % (Auto) 84.1 H Lymph % (Auto) 8.0 L [place] % (Auto) 7.3 Eos % (Auto) 0.1 Baso % (Auto) 0.1 Lymph # (Auto) 0.9 L [place] # (Auto) 0.9 Eos # (Auto) 0.0 Baso # (Auto) 0.0 Abs Immat Gran (auto) 0.05 H Absolute Neuts (auto) 9.8 H Absolute Nucleated RBC 0.000 Nucleated RBC % (auto) 0.0 PT INR APTT D-Dimer VBG pH VBG pCO2 VBG pO2 VBG HCO3 VBG O2 Saturation VBG Base Excess Sodium 120 L* Potassium 3.2 L Chloride 75 L Carbon Dioxide 33 H Anion Gap 15 BUN Creatinine Estim Creat Clear Calc Estimated GFR Random Glucose Fasting Glucose Osmolality 260 L Lactic Acid Uric Acid Calcium Magnesium Total Bilirubin AST ALT Alkaline Phosphatase Troponin I High Sens B-Natriuretic Peptide Total Protein Albumin TSH Cortisol Urine Color Urine Appearance Urine pH Ur Specific [place] Urine Protein Urine Glucose (UA) Urine Ketones Urine Blood Urine Nitrite Ur Leukocyte Esterase Urine RBC Urine WBC Ur Squamous Epith Cells Urine Bacteria Urine Mucus Urine Osmolality Ur Random Sodium Ur Random Chloride Ur Random Uric Acid COVID-19 ([facility]) COVID-19 [employer] 11/19/20 11/19/20 11/19/20 05:25 07:40 11:55 WBC RBC Hgb Hct MCV MCH MCHC RDW Plt Count MPV Immature Gran % (Auto) Neut % (Auto) Lymph % (Auto) [place] % (Auto) Eos % (Auto) Baso % (Auto) Lymph # (Auto) [place] # (Auto) Eos # (Auto) Baso # (Auto) Abs Immat Gran (auto) Absolute Neuts (auto) Absolute Nucleated RBC Nucleated RBC % (auto) PT INR APTT D-Dimer VBG pH VBG pCO2 VBG pO2 VBG HCO3 VBG O2 Saturation VBG Base Excess Sodium 120 L* 121 L 121 L Potassium 3.1 L 3.3 3.0 L Chloride 76 L 74 L 73 L Carbon Dioxide 33 H 37 H 35 H Anion Gap 14 13 16 BUN 16 D 37 H D Creatinine 0.59 0.60 Estim Creat Clear Calc 111.4 109.7 Estimated GFR > 60 > 60 Random Glucose 113 Fasting Glucose 107 H D Osmolality Lactic Acid Uric Acid Calcium 8.1 L 8.5 Magnesium 1.4 L* Total Bilirubin AST ALT Alkaline Phosphatase Troponin I High Sens B-Natriuretic Peptide Total Protein Albumin TSH Cortisol Urine Color Urine Appearance Urine pH Ur Specific [place] Urine Protein Urine Glucose (UA) Urine Ketones Urine Blood Urine Nitrite Ur Leukocyte Esterase Urine RBC Urine WBC Ur Squamous Epith Cells Urine Bacteria Urine Mucus Urine Osmolality Ur Random Sodium Ur Random Chloride Ur Random Uric Acid COVID-19 ([facility]) COVID-19 Clin Com 11/19/20 11/19/20 11/20/20 18:16 23:43 05:19 WBC 12.1 H RBC 3.96 L Hgb 13.1 Hct 37.7 MCV 95.2 MCH 33.1 H MCHC 34.7 RDW 13.0 Plt Count 269 MPV 9.5 Immature Gran % (Auto) 0.5 H Neut % (Auto) 79.5 H Lymph % (Auto) 9.1 L [place] % (Auto) 10.4 Eos % (Auto) 0.3 Baso % (Auto) 0.2 Lymph # (Auto) 1.1 L [place] # (Auto) 1.3 H Eos # (Auto) 0.0 Baso # (Auto) 0.0 Abs Immat Gran (auto) 0.06 H Absolute Neuts (auto) 9.6 H Absolute Nucleated RBC 0.000 Nucleated RBC % (auto) 0.0 PT INR APTT D-Dimer VBG pH VBG pCO2 VBG pO2 VBG HCO3 VBG O2 Saturation VBG Base Excess Sodium 122 L 124 L Potassium 3.5 3.3 Chloride 76 L 77 L Carbon Dioxide 36 H 38 H Anion Gap 14 12 BUN 30 H 42 H Creatinine 0.62 0.64 Estim Creat Clear Calc 102.6 99.4 Estimated GFR > 60 > 60 Random Glucose 133 H 161 H Fasting Glucose Osmolality Lactic Acid Uric Acid Calcium 8.5 8.9 Magnesium Total Bilirubin AST ALT Alkaline Phosphatase Troponin I High Sens B-Natriuretic Peptide Total Protein Albumin TSH Cortisol Urine Color Urine Appearance Urine pH Ur Specific [place] Urine Protein Urine Glucose (UA) Urine Ketones Urine Blood Urine Nitrite Ur Leukocyte Esterase Urine RBC Urine WBC Ur Squamous Epith Cells Urine Bacteria Urine Mucus Urine Osmolality Ur Random Sodium Ur Random Chloride Ur Random Uric Acid COVID-19 ([facility]) COVID-19 [employer] 11/20/20 11/20/20 11/20/20 05:19 12:06 19:32 WBC RBC Hgb Hct MCV MCH MCHC RDW Plt Count MPV Immature Gran % (Auto) Neut % (Auto) Lymph % (Auto) [place] % (Auto) Eos % (Auto) Baso % (Auto) Lymph # (Auto) [place] # (Auto) Eos # (Auto) Baso # (Auto) Abs Immat Gran (auto) Absolute Neuts (auto) Absolute Nucleated RBC Nucleated RBC % (auto) PT INR APTT D-Dimer VBG pH VBG pCO2 VBG pO2 VBG HCO3 VBG O2 Saturation VBG Base Excess Sodium 125 L 124 L 128 L Potassium 4.0 D 3.8 3.8 Chloride 79 L 81 L 82 L Carbon Dioxide 36 H 34 H 39 H Anion Gap 14 13 11 L BUN 31 H 54 H D Creatinine 0.63 0.67 Estim Creat Clear Calc 101.0 94.9 Estimated GFR > 60 > 60 Random Glucose 117 H Fasting Glucose 104 H Osmolality Lactic Acid Uric Acid Calcium 9.0 9.1 Magnesium 1.6 Total Bilirubin AST ALT Alkaline Phosphatase Troponin I High Sens B-Natriuretic Peptide Total Protein Albumin TSH Cortisol Urine Color Urine Appearance Urine pH Ur Specific [place] Urine Protein Urine Glucose (UA) Urine Ketones Urine Blood Urine Nitrite Ur Leukocyte Esterase Urine RBC Urine WBC Ur Squamous Epith Cells Urine Bacteria Urine Mucus Urine Osmolality Ur Random Sodium Ur Random Chloride Ur Random Uric Acid COVID-19 ([facility]) COVID-19 [employer] 11/20/20 11/20/20 11/20/20 22:08 22:08 22:08 WBC RBC Hgb Hct MCV MCH MCHC RDW Plt Count MPV Immature Gran % (Auto) Neut % (Auto) Lymph % (Auto) [place] % (Auto) Eos % (Auto) Baso % (Auto) Lymph # (Auto) [place] # (Auto) Eos # (Auto) Baso # (Auto) Abs Immat Gran (auto) Absolute Neuts (auto) Absolute Nucleated RBC Nucleated RBC % (auto) PT INR APTT D-Dimer VBG pH VBG pCO2 VBG pO2 VBG HCO3 VBG O2 Saturation VBG Base Excess Sodium Potassium Chloride Carbon Dioxide Anion Gap BUN Creatinine Estim Creat Clear Calc Estimated GFR Random Glucose Fasting Glucose Osmolality Lactic Acid Uric Acid Calcium Magnesium Total Bilirubin AST ALT Alkaline Phosphatase Troponin I High Sens B-Natriuretic Peptide Total Protein Albumin TSH Cortisol Urine Color Urine Appearance Urine pH Ur Specific [place] Urine Protein Urine Glucose (UA) Urine Ketones Urine Blood Urine Nitrite Ur Leukocyte Esterase Urine RBC Urine WBC Ur Squamous Epith Cells Urine Bacteria Urine Mucus Urine Osmolality 497 Ur Random Sodium < 20.0 Ur Random Chloride < 20.0 Ur Random Uric Acid 25.9 COVID-19 ([facility]) COVID-19 [employer] 11/20/20 11/21/20 11/21/20 22:16 06:50 06:50 WBC 10.4 RBC 4.05 L Hgb 13.2 Hct 39.7 MCV 98.0 MCH 32.6 MCHC 33.2 RDW 13.2 Plt Count 251 MPV 9.1 L Immature Gran % (Auto) 0.6 H Neut % (Auto) 77.5 H Lymph % (Auto) 10.4 L [place] % (Auto) 10.4 Eos % (Auto) 0.8 Baso % (Auto) 0.3 Lymph # (Auto) 1.1 L [place] # (Auto) 1.1 Eos # (Auto) 0.1 Baso # (Auto) 0.0 Abs Immat Gran (auto) 0.06 H Absolute Neuts (auto) 8.1 Absolute Nucleated RBC 0.000 Nucleated RBC % (auto) 0.0 PT INR APTT D-Dimer < 200 VBG pH VBG pCO2 VBG pO2 VBG HCO3 VBG O2 Saturation VBG Base Excess Sodium 127 L Potassium 3.9 Chloride 81 L Carbon Dioxide 39 H Anion Gap 11 L BUN 31 H Creatinine 0.63 Estim Creat Clear Calc 101.0 Estimated GFR > 60 Random Glucose 115 Fasting Glucose Osmolality Lactic Acid Uric Acid Calcium 9.0 Magnesium Total Bilirubin AST ALT Alkaline Phosphatase Troponin I High Sens B-Natriuretic Peptide Total Protein Albumin TSH Cortisol Urine Color Urine Appearance Urine pH Ur Specific [place] Urine Protein Urine Glucose (UA) Urine Ketones Urine Blood Urine Nitrite Ur Leukocyte Esterase Urine RBC Urine WBC Ur Squamous Epith Cells Urine Bacteria Urine Mucus Urine Osmolality Ur Random Sodium Ur Random Chloride Ur Random Uric Acid COVID-19 ([facility]) COVID-19 LRN Com 11/21/20 11/21/20 11/21/20 06:50 06:50 06:51 WBC RBC Hgb Hct MCV MCH MCHC RDW Plt Count MPV Immature Gran % (Auto) Neut % (Auto) Lymph % (Auto) [place] % (Auto) Eos % (Auto) Baso % (Auto) Lymph # (Auto) [place] # (Auto) Eos # (Auto) Baso # (Auto) Abs Immat Gran (auto) Absolute Neuts (auto) Absolute Nucleated RBC Nucleated RBC % (auto) PT INR APTT D-Dimer VBG pH 7.46 H VBG pCO2 VBG pO2 VBG HCO3 VBG O2 Saturation VBG Base Excess Sodium 131 L Potassium 4.4 Chloride 84 L Carbon Dioxide 38 H Anion Gap 13 BUN 24 H Creatinine 0.67 Estim Creat Clear Calc 94.9 Estimated GFR > 60 Random Glucose Fasting Glucose 96 Osmolality Lactic Acid Uric Acid 4.0 Calcium 9.4 Magnesium 1.8 Total Bilirubin AST ALT Alkaline Phosphatase Troponin I High Sens B-Natriuretic Peptide Total Protein Albumin TSH Cortisol Urine Color Urine Appearance Urine pH Ur Specific [place] Urine Protein Urine Glucose (UA) Urine Ketones Urine Blood Urine Nitrite Ur Leukocyte Esterase Urine RBC Urine WBC Ur Squamous Epith Cells Urine Bacteria Urine Mucus Urine Osmolality Ur Random Sodium Ur Random Chloride Ur Random Uric Acid COVID-19 ([facility]) COVID-19 Clin Com 11/21/20 11/21/20 11/21/20 06:53 18:27 18:27 WBC RBC Hgb Hct MCV MCH MCHC RDW Plt Count MPV Immature Gran % (Auto) Neut % (Auto) Lymph % (Auto) [place] % (Auto) Eos % (Auto) Baso % (Auto) Lymph # (Auto) [place] # (Auto) Eos # (Auto) Baso # (Auto) Abs Immat Gran (auto) Absolute Neuts (auto) Absolute Nucleated RBC Nucleated RBC % (auto) PT INR APTT D-Dimer VBG pH 7.46 H VBG pCO2 67 VBG pO2 60 VBG HCO3 48 H VBG O2 Saturation 87.0 VBG Base Excess 20.1 Sodium Potassium Chloride Carbon Dioxide Anion Gap BUN Creatinine Estim Creat Clear Calc Estimated GFR Random Glucose Fasting Glucose Osmolality Lactic Acid Uric Acid Calcium Magnesium Total Bilirubin AST ALT Alkaline Phosphatase Troponin I High Sens B-Natriuretic Peptide Total Protein Albumin TSH Cortisol Urine Color Urine Appearance Urine pH Ur Specific [place] Urine Protein Urine Glucose (UA) Urine Ketones Urine Blood Urine Nitrite Ur Leukocyte Esterase Urine RBC Urine WBC Ur Squamous Epith Cells Urine Bacteria Urine Mucus Urine Osmolality 518 Ur Random Sodium < 20.0 Ur Random Chloride Ur Random Uric Acid COVID-19 ([facility]) COVID-19 [employer] 11/22/20 11/22/20 11/23/20 06:06 06:06 04:14 WBC 10.9 H 12.1 H RBC 3.85 L 3.97 L Hgb 12.6 13.0 Hct 38.3 40.1 MCV 99.5 H 101.0 H MCH 32.7 32.7 MCHC 32.9 32.4 RDW 13.3 13.4 Plt Count 236 250 MPV 9.5 9.1 L Immature Gran % (Auto) 0.5 H 0.2 Neut % (Auto) 78.3 H 80.9 H Lymph % (Auto) 9.7 L 9.9 L [place] % (Auto) 9.8 7.7 Eos % (Auto) 1.3 1.0 Baso % (Auto) 0.4 0.3 Lymph # (Auto) 1.1 L 1.2 [place] # (Auto) 1.1 0.9 Eos # (Auto) 0.1 0.1 Baso # (Auto) 0.0 0.0 Abs Immat Gran (auto) 0.05 H 0.03 Absolute Neuts (auto) 8.5 H 9.8 H Absolute Nucleated RBC 0.000 0.000 Nucleated RBC % (auto) 0.0 0.0 PT INR APTT D-Dimer VBG pH VBG pCO2 VBG pO2 VBG HCO3 VBG O2 Saturation VBG Base Excess Sodium 135 Potassium 3.9 Chloride 86 L Carbon Dioxide 38 H Anion Gap 15 BUN 16 Creatinine 0.66 Estim Creat Clear Calc 95.6 Estimated GFR > 60 Random Glucose Fasting Glucose 103 H Osmolality Lactic Acid Uric Acid Calcium 9.1 Magnesium Total Bilirubin AST ALT Alkaline Phosphatase Troponin I High Sens B-Natriuretic Peptide Total Protein Albumin TSH Cortisol Urine Color Urine Appearance Urine pH Ur Specific [place] Urine Protein Urine Glucose (UA) Urine Ketones Urine Blood Urine Nitrite Ur Leukocyte Esterase Urine RBC Urine WBC Ur Squamous Epith Cells Urine Bacteria Urine Mucus Urine Osmolality Ur Random Sodium Ur Random Chloride Ur Random Uric Acid COVID-19 ([facility]) COVID-19 LRN Com 11/23/20 11/24/20 11/24/20 04:15 05:34 05:34 WBC 11.0 H RBC 3.83 L Hgb 12.6 Hct 38.6 MCV 100.8 H MCH 32.9 MCHC 32.6 RDW 13.4 Plt Count 235 MPV 9.3 L Immature Gran % (Auto) 0.5 H Neut % (Auto) 77.9 H Lymph % (Auto) 9.9 L [place] % (Auto) 9.8 Eos % (Auto) 1.5 Baso % (Auto) 0.4 Lymph # (Auto) 1.1 L [place] # (Auto) 1.1 Eos # (Auto) 0.2 Baso # (Auto) 0.0 Abs Immat Gran (auto) 0.06 H Absolute Neuts (auto) 8.6 H Absolute Nucleated RBC 0.000 Nucleated RBC % (auto) 0.0 PT INR APTT D-Dimer VBG pH VBG pCO2 VBG pO2 VBG HCO3 VBG O2 Saturation VBG Base Excess Sodium 135 134 L Potassium 4.5 4.6 Chloride 86 L 87 L Carbon Dioxide 39 H 38 H Anion Gap 15 14 BUN 12 14 Creatinine 0.66 0.69 Estim Creat Clear Calc 95.6 91.9 Estimated GFR > 60 > 60 Random Glucose Fasting Glucose 109 H 112 H Osmolality Lactic Acid Uric Acid Calcium 9.1 9.3 Magnesium 1.8 1.8 Total Bilirubin AST ALT Alkaline Phosphatase Troponin I High Sens B-Natriuretic Peptide Total Protein Albumin TSH Cortisol Urine Color Urine Appearance Urine pH Ur Specific [place] Urine Protein Urine Glucose (UA) Urine Ketones Urine Blood Urine Nitrite Ur Leukocyte Esterase Urine RBC Urine WBC Ur Squamous Epith Cells Urine Bacteria Urine Mucus Urine Osmolality Ur Random Sodium Ur Random Chloride Ur Random Uric Acid COVID-19 ([facility]) COVID-19 Clin Com Airway Mallampati Class: II TM Dist: >3cm Neck ROM: Full Assessment and Plan Assessment Anesthesia Assessment: Anesthesia Plan Discussed and Chart Reviewed Final Anesthetic Review NPO: Yes ASA Class: III Final Preanesthetic Review: No Changes in Pt Med Stat, Meds/Allgs Chart Reviewed, Consent Obtained/Reviewed and Anes Risks/Benef Reviewed Patient Risk: Intermediate Procedure Risk: Low Assessment/Block/Sedation in SS: Assess/Block/Sedation-SS Anesthetic Plan Anesthetic Plan: MAC: Disposition: Standard PACU
--- NOTE | 2020-11-24 12:35 | MHC.SHP ---
Pre-Procedural Eval Section A The patient is an INPATIENT: Yes Changes since office visit: No Cold of Flu in the past 2 weeks, No New Medical Problems, No Changes in Medication and No Patient answered all questions The History & Physical has been completed within 30 days and I have reviewed it.: Yes Section B Chief Complaint: Afib Allergies: Allergies Allergy/AdvReac Type Severity Reaction Status Date / Time SEASONAL ALLERGIES Allergy Unknown SNEEZING Uncoded 04/23/20 15:17 RUNNY NOSE Plan Diagnosis/Plan: Unchanged I have reviewed the history and physical and performed a pertinent physical examination on my patient. No changes have occurred unless specified.
--- NOTE | 2020-11-24 12:38 | P.PNCA_ITS ---
Subjective Subjective Date of Service: 11/24/20 Interval history: For DCCV today. No symptoms Physical Exam Vital Signs: Last Vital Signs Temp 997.9 F H 11/24/20 11:24 Pulse 87 11/24/20 11:24 Resp 18 11/24/20 11:24 BP 117/72 11/24/20 11:24 Pulse Ox 92 11/24/20 11:24 Body Mass Index 39.6 GENERAL APPEARANCE: in no acute distress. HEENT: unremarkable. HEAD: normocephalic, atraumatic. NECK/THYROID: no carotid bruit, no jugular venous distention. SKIN: no suspicious lesions, warm and dry. HEART: no murmurs, irregular rate and rhythm, S1, S2 normal. LUNGS: clear to auscultation bilaterally. ABDOMEN: normal, bowel sounds present, soft, nontender, nondistended. EXTREMITIES: no clubbing, cyanosis, or edema. PERIPHERAL PULSES: equal. NEUROLOGIC: nonfocal, alert and oriented. Results Labs and Meds Result diagrams: 11/24/20 05:34 11/24/20 05:34 Lab results: Laboratory Results - last 24 hr 11/24/20 11/24/20 05:34 05:34 WBC 11.0 H RBC 3.83 L Hgb 12.6 Hct 38.6 MCV 100.8 H MCH 32.9 MCHC 32.6 RDW 13.4 Plt Count 235 MPV 9.3 L Immature Gran % (Auto) 0.5 H Neut % (Auto) 77.9 H Lymph % (Auto) 9.9 L [place] % (Auto) 9.8 Eos % (Auto) 1.5 Baso % (Auto) 0.4 Lymph # (Auto) 1.1 L [place] # (Auto) 1.1 Eos # (Auto) 0.2 Baso # (Auto) 0.0 Abs Immat Gran (auto) 0.06 H Absolute Neuts (auto) 8.6 H Absolute Nucleated RBC 0.000 Nucleated RBC % (auto) 0.0 Sodium 134 L Potassium 4.6 Chloride 87 L Carbon Dioxide 38 H Anion Gap 14 BUN 14 Creatinine 0.69 Estim Creat Clear Calc 91.9 Estimated GFR > 60 Fasting Glucose 112 H Calcium 9.3 Magnesium 1.8 Progress Note: A&P Assessment and plan (1) Atrial fibrillation with rapid ventricular response: Status: Acute Assessment and Plan: 75-year-old female with AFib. She is on flecainide, Eliquis and metoprolol. She is for cardioversion today. Thank you for allowing me to participate in the care of your patient. Please feel free to contact me if you have any questions. Fall Risk Details Current Medications: Current Medications Generic Name Dose Route Start Last Admin Trade Name Freq PRN Reason Stop Dose Admin Acetaminophen 650 mg 11/17/20 23:10 11/18/20 08:13 Acetaminophen 325 Mg Tablet PO 650 mg Q6H PRN Administration Pain, Mild (Pain Scale 1-3) Apixaban 5 mg 11/18/20 09:00 11/24/20 08:43 Apixaban 5 Mg Tablet PO 5 mg BID DEE Administration Atorvastatin Calcium 10 mg 11/18/20 21:00 11/23/20 22:34 Atorvastatin Calcium 10 Mg Tablet PO 10 mg BEDTIME DEE Administration Heparin Sodium (Porcine) 50 0 units 11/19/20 15:00 11/24/20 08:43 units/ Sodium Chloride 5 ml IVFLUSH 50 unit TID DEE Administration Flecainide Acetate 150 mg 11/18/20 11:00 11/24/20 08:42 Flecainide Acetate 50 Mg Tablet PO 150 mg BID DEE Administration Lorazepam 1 mg 11/18/20 08:57 11/24/20 00:29 Lorazepam 1 Mg Tablet PO 1 mg BID PRN Administration Anxiety Magnesium Oxide 400 mg 11/19/20 08:30 11/24/20 08:43 Magnesium Oxide 400 Mg Tablet PO 400 mg BIDPC DEE Administration Metoprolol Tartrate 75 mg 11/18/20 21:00 11/24/20 08:42 Metoprolol Tartrate 50 Mg Tablet PO 75 mg BID DEE Administration Protocol Omeprazole 20 mg 11/19/20 16:30 11/24/20 05:24 Omeprazole 20 Mg Capsule.Dr PO Not Given BID@[id number],4530 [facility] Senna 17.2 mg 11/17/20 23:10 Sennosides 8.6 Mg Tablet PO BEDTIME PRN Constipation Sodium Chloride 3 ml 11/18/20 00:00 11/24/20 08:44 0.9 % Sodium Chloride Flush 3 Ml Syringe IVFLUSH 3 ml QSHIFT DEE Administration Zolpidem Tartrate 5 mg 11/19/20 16:50 11/23/20 22:48 Zolpidem Tartrate 5 Mg Tablet PO 5 mg BEDTIME PRN Administration Insomnia Time Spent With Patient Time: Total time spent is greater than 50% in coordination of care (as documented) at patient's floor/unit and/or counseling patient: Time with patient: less than 15 minutes
--- NOTE | 2020-11-24 12:57 | P.PNCAR_ITS ---
Cardioversion Procedure Note Cardioversion Date of Procedure: 11/24/20 Ordering Provider: Navi Wilson MD Performing Provider: Navi Wilson MD Indication for Procedure: Afib Performed with Transesophageal Echo: No History: 75-year-old female with Afib with RVR. She was taking eliquis uninterr upted for weeks before the admission. She was brought in for cardioversion without SARIKA. Consent: Verbal and Written consent was obtained from the patient before starting. The patient was made aware of the risk of stroke and risk with anesthesia. Procedure: After consent obtained, defib pads were attached and the patient was sedated by the anesthesia team. Once adequate sedation achieved, patient was given a single shock of 200 J which successfully cardioverted her to sinus rhythm. Complications: None Recommendations: c/w Flecainide and metoprolol. Please do not interrupt Eliquis.
--- NOTE | 2020-11-24 13:05 | HO.ANESPROP2 ---
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 (Acute) Essential hypertension (Acute) Atrial fibrillation with rapid ventricular response (Acute) Atrial fibrillation, new onset (Acute) Hypomagnesemia (Acute) Hyponatremia (Acute) Past Medical History Medical History Afib Essential hypertension HTN (hypertension) Myocardial infarct Throat cancer Functional capacity: uses cane/walker Social History Social History Household Members: Family Housing: House Alcohol intake: current Alcohol type: beer and hard liquor Smoking Status: Former smoker service: No Current occupational status: retired [employer] Allergies Allergy/AdvReac Type Severity Reaction Status Date / Time SEASONAL ALLERGIES Allergy Unknown SNEEZING Uncoded 04/23/20 15:17 RUNNY NOSE Active Medications: Current Medications Generic Name Dose Route Start Last Admin Trade Name Freq PRN Reason Stop Dose Admin Acetaminophen 650 mg 11/17/20 23:10 11/18/20 08:13 Acetaminophen 325 Mg Tablet PO 650 mg Q6H PRN Administration Pain, Mild (Pain Scale 1-3) Apixaban 5 mg 11/18/20 09:00 11/24/20 08:43 Apixaban 5 Mg Tablet PO 5 mg BID DEE Administration Atorvastatin Calcium 10 mg 11/18/20 21:00 11/23/20 22:34 Atorvastatin Calcium 10 Mg Tablet PO 10 mg BEDTIME DEE Administration Heparin Sodium (Porcine) 50 0 units 11/19/20 15:00 11/24/20 08:43 units/ Sodium Chloride 5 ml IVFLUSH 50 unit TID DEE Administration Flecainide Acetate 150 mg 11/18/20 11:00 11/24/20 08:42 Flecainide Acetate 50 Mg Tablet PO 150 mg BID DEE Administration Lorazepam 1 mg 11/18/20 08:57 11/24/20 00:29 Lorazepam 1 Mg Tablet PO 1 mg BID PRN Administration Anxiety Magnesium Oxide 400 mg 11/19/20 08:30 11/24/20 08:43 Magnesium Oxide 400 Mg Tablet PO 400 mg BIDPC DEE Administration Metoprolol Tartrate 75 mg 11/18/20 21:00 11/24/20 08:42 Metoprolol Tartrate 50 Mg Tablet PO 75 mg BID [facility] Administration Protocol Omeprazole 20 mg 11/19/20 16:30 11/24/20 05:24 Omeprazole 20 Mg Capsule. PO Not Given BID@[id number] [facility] Senna 17.2 mg 11/17/20 23:10 Sennosides 8.6 Mg Tablet PO BEDTIME PRN Constipation Sodium Chloride 3 ml 11/18/20 00:00 11/24/20 08:44 0.9 % Sodium Chloride Flush 3 Ml Syringe IVFLUSH 3 ml QSHIFT [facility] Administration Zolpidem Tartrate 5 mg 11/19/20 16:50 11/23/20 22:48 Zolpidem Tartrate 5 Mg Tablet PO 5 mg BEDTIME PRN Administration Insomnia Home Medications Medication Instructions Recorded Confirmed Last Taken Type flecainide 1 tab PO BID 11/18/20 11/18/20 Unknown History lorazepam 1 tab PO BID PRN 11/18/20 11/18/20 Unknown History metoprolol tartrate 1 tab PO BID 11/18/20 11/18/20 Unknown History omeprazole 1 cap PO BID 11/18/20 11/18/20 Unknown History simvastatin 1 tab PO DAILY 11/18/20 11/18/20 Unknown History Exam Exam Date and Time: November 24, 2020 1305 Height,Weight and Vital Signs: Height 5 ft 6 in Weight 111.5 kg Last Vital Signs Temp 997.9 F H 11/24/20 11:24 Pulse 87 11/24/20 11:24 Resp 18 11/24/20 11:24 BP 117/72 11/24/20 11:24 Pulse Ox 92 11/24/20 11:24 Pertinent Lab Results Pertinent Lab Results: Laboratory Tests 11/17/20 11/17/20 11/17/20 22:05 22:05 22:05 WBC 12.2 H RBC 3.85 L Hgb 12.9 Hct 36.5 L MCV 94.8 MCH 33.5 H MCHC 35.3 H RDW 12.9 Plt Count 233 MPV 9.3 L Immature Gran % (Auto) 0.5 H Neut % (Auto) 87.3 H Lymph % (Auto) 6.1 L [place] % (Auto) 5.9 Eos % (Auto) 0.0 Baso % (Auto) 0.2 Lymph # (Auto) 0.7 L [place] # (Auto) 0.7 Eos # (Auto) 0.0 Baso # (Auto) 0.0 Abs Immat Gran (auto) 0.06 H Absolute Neuts (auto) 10.7 H Absolute Nucleated RBC 0.000 Nucleated RBC % (auto) 0.0 PT INR APTT D-Dimer VBG pH VBG pCO2 VBG pO2 VBG HCO3 VBG O2 Saturation VBG Base Excess Sodium 119 L* Potassium 4.0 Chloride 83 L Carbon Dioxide 28 Anion Gap 13 BUN 10 Creatinine 0.62 Estim Creat Clear Calc 106.1 Estimated GFR > 60 Random Glucose 171 H Fasting Glucose Osmolality Lactic Acid Uric Acid Calcium 8.1 L Magnesium 1.4 L* Total Bilirubin 0.7 AST 24 ALT 18 Alkaline Phosphatase 69 Troponin I High Sens B-Natriuretic Peptide 704 H Total Protein 6.6 Albumin 3.9 TSH Cortisol Urine Color Urine Appearance Urine pH Ur Specific [place] Urine Protein Urine Glucose (UA) Urine Ketones Urine Blood Urine Nitrite Ur Leukocyte Esterase Urine RBC Urine WBC Ur Squamous Epith Cells Urine Bacteria Urine Mucus Urine Osmolality Ur Random Sodium Ur Random Chloride Ur Random Uric Acid COVID-19 ([facility]) [email or web address] 11/17/20 11/17/20 11/17/20 22:05 22:05 22:05 WBC RBC Hgb Hct MCV MCH MCHC RDW Plt Count MPV Immature Gran % (Auto) Neut % (Auto) Lymph % (Auto) [place] % (Auto) Eos % (Auto) Baso % (Auto) Lymph # (Auto) [place] # (Auto) Eos # (Auto) Baso # (Auto) Abs Immat Gran (auto) Absolute Neuts (auto) Absolute Nucleated RBC Nucleated RBC % (auto) PT INR APTT D-Dimer VBG pH VBG pCO2 VBG pO2 VBG HCO3 VBG O2 Saturation VBG Base Excess Sodium Potassium Chloride Carbon Dioxide Anion Gap BUN Creatinine Estim Creat Clear Calc Estimated GFR Random Glucose Fasting Glucose Osmolality Lactic Acid 1.5 Uric Acid Calcium Magnesium Total Bilirubin AST ALT Alkaline Phosphatase Troponin I High Sens 7.6 B-Natriuretic Peptide Total Protein Albumin TSH Cortisol Urine Color Urine Appearance Urine pH Ur Specific [place] Urine Protein Urine Glucose (UA) Urine Ketones Urine Blood Urine Nitrite Ur Leukocyte Esterase Urine RBC Urine WBC Ur Squamous Epith Cells Urine Bacteria Urine Mucus Urine Osmolality Ur Random Sodium Ur Random Chloride Ur Random Uric Acid COVID-19 ([facility]) Negative COVID-19 [employer] See Note 11/17/20 11/18/20 11/18/20 22:10 00:42 00:42 WBC RBC Hgb Hct MCV MCH MCHC RDW Plt Count MPV Immature Gran % (Auto) Neut % (Auto) Lymph % (Auto) [place] % (Auto) Eos % (Auto) Baso % (Auto) Lymph # (Auto) [place] # (Auto) Eos # (Auto) Baso # (Auto) Abs Immat Gran (auto) Absolute Neuts (auto) Absolute Nucleated RBC Nucleated RBC % (auto) PT 16.0 H Cancelled INR 1.3 H Cancelled APTT 34.4 D-Dimer VBG pH 7.41 VBG pCO2 40 VBG pO2 80 VBG HCO3 26 VBG O2 Saturation 94.0 VBG Base Excess 1.9 Sodium Potassium Chloride Carbon Dioxide Anion Gap BUN Creatinine Estim Creat Clear Calc Estimated GFR Random Glucose Fasting Glucose Osmolality Lactic Acid Uric Acid Calcium Magnesium Total Bilirubin AST ALT Alkaline Phosphatase Troponin I High Sens B-Natriuretic Peptide Total Protein Albumin TSH Cortisol Urine Color Urine Appearance Urine pH Ur Specific [place] Urine Protein Urine Glucose (UA) Urine Ketones Urine Blood Urine Nitrite Ur Leukocyte Esterase Urine RBC Urine WBC Ur Squamous Epith Cells Urine Bacteria Urine Mucus Urine Osmolality Ur Random Sodium Ur Random Chloride Ur Random Uric Acid COVID-19 ([facility]) COVID-19 Clin Com 11/18/20 11/18/20 11/18/20 00:42 00:42 06:52 WBC 14.0 H RBC 3.97 L Hgb 13.2 Hct 37.7 MCV 95.0 MCH 33.2 H MCHC 35.0 RDW 12.7 Plt Count 248 MPV 9.3 L Immature Gran % (Auto) 0.4 Neut % (Auto) 81.4 H Lymph % (Auto) 9.6 L [place] % (Auto) 8.0 Eos % (Auto) 0.4 Baso % (Auto) 0.2 Lymph # (Auto) 1.3 [place] # (Auto) 1.1 Eos # (Auto) 0.1 Baso # (Auto) 0.0 Abs Immat Gran (auto) 0.06 H Absolute Neuts (auto) 11.4 H Absolute Nucleated RBC 0.000 Nucleated RBC % (auto) 0.0 PT INR APTT D-Dimer VBG pH VBG pCO2 VBG pO2 VBG HCO3 VBG O2 Saturation VBG Base Excess Sodium 120 L* Potassium 3.9 Chloride 82 L Carbon Dioxide 29 Anion Gap 13 BUN 10 Creatinine 0.60 Estim Creat Clear Calc 109.7 Estimated GFR > 60 Random Glucose 144 H Fasting Glucose Osmolality Lactic Acid Uric Acid Calcium 8.4 Magnesium 1.9 Total Bilirubin AST ALT Alkaline Phosphatase Troponin I High Sens 9.2 B-Natriuretic Peptide Total Protein Albumin TSH Cortisol Urine Color Urine Appearance Urine pH Ur Specific [place] Urine Protein Urine Glucose (UA) Urine Ketones Urine Blood Urine Nitrite Ur Leukocyte Esterase Urine RBC Urine WBC Ur Squamous Epith Cells Urine Bacteria Urine Mucus Urine Osmolality Ur Random Sodium Ur Random Chloride Ur Random Uric Acid COVID-19 ([facility]) COVID-19 [employer] 11/18/20 11/18/20 11/18/20 06:52 06:52 12:23 WBC RBC Hgb Hct MCV MCH MCHC RDW Plt Count MPV Immature Gran % (Auto) Neut % (Auto) Lymph % (Auto) [place] % (Auto) Eos % (Auto) Baso % (Auto) Lymph # (Auto) [place] # (Auto) Eos # (Auto) Baso # (Auto) Abs Immat Gran (auto) Absolute Neuts (auto) Absolute Nucleated RBC Nucleated RBC % (auto) PT INR APTT D-Dimer VBG pH VBG pCO2 VBG pO2 VBG HCO3 VBG O2 Saturation VBG Base Excess Sodium 121 L Potassium 3.7 Chloride 84 L Carbon Dioxide 27 Anion Gap 14 BUN 8 L Creatinine 0.61 Estim Creat Clear Calc 107.8 Estimated GFR > 60 Random Glucose 123 H Fasting Glucose Osmolality Lactic Acid Uric Acid Calcium 8.5 Magnesium Total Bilirubin AST ALT Alkaline Phosphatase Troponin I High Sens B-Natriuretic Peptide Total Protein Albumin TSH 1.89 Cortisol 29.6 H Urine Color YELLOW Urine Appearance HAZY Urine pH 6.0 Ur Specific [place] 1.025 Urine Protein NEG Urine Glucose (UA) NEG Urine Ketones 5 Urine Blood NEG Urine Nitrite NEG Ur Leukocyte Esterase 1+ H Urine RBC 0-2 Urine WBC 10-14 H Ur Squamous Epith Cells 1+ Urine Bacteria NONE Urine Mucus TRACE Urine Osmolality Ur Random Sodium Ur Random Chloride Ur Random Uric Acid COVID-19 ([facility]) COVID-19 [employer] 11/18/20 11/18/20 11/18/20 12:23 12:23 12:23 WBC RBC Hgb Hct MCV MCH MCHC RDW Plt Count MPV Immature Gran % (Auto) Neut % (Auto) Lymph % (Auto) [place] % (Auto) Eos % (Auto) Baso % (Auto) Lymph # (Auto) [place] # (Auto) Eos # (Auto) Baso # (Auto) Abs Immat Gran (auto) Absolute Neuts (auto) Absolute Nucleated RBC Nucleated RBC % (auto) PT INR APTT D-Dimer VBG pH VBG pCO2 VBG pO2 VBG HCO3 VBG O2 Saturation VBG Base Excess Sodium Potassium Chloride Carbon Dioxide Anion Gap BUN Creatinine Estim Creat Clear Calc Estimated GFR Random Glucose Fasting Glucose Osmolality Lactic Acid Uric Acid Calcium Magnesium Total Bilirubin AST ALT Alkaline Phosphatase Troponin I High Sens B-Natriuretic Peptide Total Protein Albumin TSH Cortisol Urine Color Urine Appearance Urine pH Ur Specific [place] Urine Protein Urine Glucose (UA) Urine Ketones Urine Blood Urine Nitrite Ur Leukocyte Esterase Urine RBC Urine WBC Ur Squamous Epith Cells Urine Bacteria Urine Mucus Urine Osmolality 513 Ur Random Sodium 73.0 Ur Random Chloride Ur Random Uric Acid 43.2 COVID-19 ([facility]) COVID-19 [employer] [facility] 11/18/20 11/18/20 11/18/20 13:56 20:55 20:55 WBC RBC Hgb Hct MCV MCH MCHC RDW Plt Count MPV Immature Gran % (Auto) Neut % (Auto) Lymph % (Auto) [place] % (Auto) Eos % (Auto) Baso % (Auto) Lymph # (Auto) [place] # (Auto) Eos # (Auto) Baso # (Auto) Abs Immat Gran (auto) Absolute Neuts (auto) Absolute Nucleated RBC Nucleated RBC % (auto) PT INR APTT D-Dimer VBG pH VBG pCO2 VBG pO2 VBG HCO3 VBG O2 Saturation VBG Base Excess Sodium 120 L* 120 L* Cancelled Potassium 4.0 3.2 L Cancelled Chloride 82 L 74 L Cancelled Carbon Dioxide 29 33 H Cancelled Anion Gap 13 16 Cancelled BUN 8 L 8 L Creatinine 0.66 0.66 Estim Creat Clear Calc 99.6 99.6 Estimated GFR > 60 > 60 Random Glucose 145 H Fasting Glucose 195 H Osmolality Lactic Acid Uric Acid 2.7 Calcium 8.6 8.4 Magnesium Total Bilirubin AST ALT Alkaline Phosphatase Troponin I High Sens B-Natriuretic Peptide Total Protein Albumin TSH Cortisol Urine Color Urine Appearance Urine pH Ur Specific [place] Urine Protein Urine Glucose (UA) Urine Ketones Urine Blood Urine Nitrite Ur Leukocyte Esterase Urine RBC Urine WBC Ur Squamous Epith Cells Urine Bacteria Urine Mucus Urine Osmolality Ur Random Sodium Ur Random Chloride Ur Random Uric Acid COVID-19 ([facility]) COVID-19 [employer] 11/18/20 11/19/20 11/19/20 20:55 01:45 05:25 WBC 11.7 H RBC 3.84 L Hgb 12.5 Hct 35.8 L MCV 93.2 MCH 32.6 MCHC 34.9 RDW 12.8 Plt Count 237 MPV 9.4 Immature Gran % (Auto) 0.4 Neut % (Auto) 84.1 H Lymph % (Auto) 8.0 L [place] % (Auto) 7.3 Eos % (Auto) 0.1 Baso % (Auto) 0.1 Lymph # (Auto) 0.9 L [place] # (Auto) 0.9 Eos # (Auto) 0.0 Baso # (Auto) 0.0 Abs Immat Gran (auto) 0.05 H Absolute Neuts (auto) 9.8 H Absolute Nucleated RBC 0.000 Nucleated RBC % (auto) 0.0 PT INR APTT D-Dimer VBG pH VBG pCO2 VBG pO2 VBG HCO3 VBG O2 Saturation VBG Base Excess Sodium 120 L* Potassium 3.2 L Chloride 75 L Carbon Dioxide 33 H Anion Gap 15 BUN Creatinine Estim Creat Clear Calc Estimated GFR Random Glucose Fasting Glucose Osmolality 260 L Lactic Acid Uric Acid Calcium Magnesium Total Bilirubin AST ALT Alkaline Phosphatase Troponin I High Sens B-Natriuretic Peptide Total Protein Albumin TSH Cortisol Urine Color Urine Appearance Urine pH Ur Specific [place] Urine Protein Urine Glucose (UA) Urine Ketones Urine Blood Urine Nitrite Ur Leukocyte Esterase Urine RBC Urine WBC Ur Squamous Epith Cells Urine Bacteria Urine Mucus Urine Osmolality Ur Random Sodium Ur Random Chloride Ur Random Uric Acid COVID-19 ([facility]) COVID-19 [employer] 11/19/20 11/19/20 11/19/20 05:25 07:40 11:55 WBC RBC Hgb Hct MCV MCH MCHC RDW Plt Count MPV Immature Gran % (Auto) Neut % (Auto) Lymph % (Auto) [place] % (Auto) Eos % (Auto) Baso % (Auto) Lymph # (Auto) [place] # (Auto) Eos # (Auto) Baso # (Auto) Abs Immat Gran (auto) Absolute Neuts (auto) Absolute Nucleated RBC Nucleated RBC % (auto) PT INR APTT D-Dimer VBG pH VBG pCO2 VBG pO2 VBG HCO3 VBG O2 Saturation VBG Base Excess Sodium 120 L* 121 L 121 L Potassium 3.1 L 3.3 3.0 L Chloride 76 L 74 L 73 L Carbon Dioxide 33 H 37 H 35 H Anion Gap 14 13 16 BUN 16 D 37 H D Creatinine 0.59 0.60 Estim Creat Clear Calc 111.4 109.7 Estimated GFR > 60 > 60 Random Glucose 113 Fasting Glucose 107 H D Osmolality Lactic Acid Uric Acid Calcium 8.1 L 8.5 Magnesium 1.4 L* Total Bilirubin AST ALT Alkaline Phosphatase Troponin I High Sens B-Natriuretic Peptide Total Protein Albumin TSH Cortisol Urine Color Urine Appearance Urine pH Ur Specific [place] Urine Protein Urine Glucose (UA) Urine Ketones Urine Blood Urine Nitrite Ur Leukocyte Esterase Urine RBC Urine WBC Ur Squamous Epith Cells Urine Bacteria Urine Mucus Urine Osmolality Ur Random Sodium Ur Random Chloride Ur Random Uric Acid COVID-19 ([facility]) COVID-19 Clin [facility] 11/19/20 11/19/20 11/20/20 18:16 23:43 05:19 WBC 12.1 H RBC 3.96 L Hgb 13.1 Hct 37.7 MCV 95.2 MCH 33.1 H MCHC 34.7 RDW 13.0 Plt Count 269 MPV 9.5 Immature Gran % (Auto) 0.5 H Neut % (Auto) 79.5 H Lymph % (Auto) 9.1 L [place] % (Auto) 10.4 Eos % (Auto) 0.3 Baso % (Auto) 0.2 Lymph # (Auto) 1.1 L [place] # (Auto) 1.3 H Eos # (Auto) 0.0 Baso # (Auto) 0.0 Abs Immat Gran (auto) 0.06 H Absolute Neuts (auto) 9.6 H Absolute Nucleated RBC 0.000 Nucleated RBC % (auto) 0.0 PT INR APTT D-Dimer VBG pH VBG pCO2 VBG pO2 VBG HCO3 VBG O2 Saturation VBG Base Excess Sodium 122 L 124 L Potassium 3.5 3.3 Chloride 76 L 77 L Carbon Dioxide 36 H 38 H Anion Gap 14 12 BUN 30 H 42 H Creatinine 0.62 0.64 Estim Creat Clear Calc 102.6 99.4 Estimated GFR > 60 > 60 Random Glucose 133 H 161 H Fasting Glucose Osmolality Lactic Acid Uric Acid Calcium 8.5 8.9 Magnesium Total Bilirubin AST ALT Alkaline Phosphatase Troponin I High Sens B-Natriuretic Peptide Total Protein Albumin TSH Cortisol Urine Color Urine Appearance Urine pH Ur Specific [place] Urine Protein Urine Glucose (UA) Urine Ketones Urine Blood Urine Nitrite Ur Leukocyte Esterase Urine RBC Urine WBC Ur Squamous Epith Cells Urine Bacteria Urine Mucus Urine Osmolality Ur Random Sodium Ur Random Chloride Ur Random Uric Acid COVID-19 ([facility]) COVID-19 [employer] 11/20/20 11/20/20 11/20/20 05:19 12:06 19:32 WBC RBC Hgb Hct MCV MCH MCHC RDW Plt Count MPV Immature Gran % (Auto) Neut % (Auto) Lymph % (Auto) [place] % (Auto) Eos % (Auto) Baso % (Auto) Lymph # (Auto) [place] # (Auto) Eos # (Auto) Baso # (Auto) Abs Immat Gran (auto) Absolute Neuts (auto) Absolute Nucleated RBC Nucleated RBC % (auto) PT INR APTT D-Dimer VBG pH VBG pCO2 VBG pO2 VBG HCO3 VBG O2 Saturation VBG Base Excess Sodium 125 L 124 L 128 L Potassium 4.0 D 3.8 3.8 Chloride 79 L 81 L 82 L Carbon Dioxide 36 H 34 H 39 H Anion Gap 14 13 11 L BUN 31 H 54 H D Creatinine 0.63 0.67 Estim Creat Clear Calc 101.0 94.9 Estimated GFR > 60 > 60 Random Glucose 117 H Fasting Glucose 104 H Osmolality Lactic Acid Uric Acid Calcium 9.0 9.1 Magnesium 1.6 Total Bilirubin AST ALT Alkaline Phosphatase Troponin I High Sens B-Natriuretic Peptide Total Protein Albumin TSH Cortisol Urine Color Urine Appearance Urine pH Ur Specific [place] Urine Protein Urine Glucose (UA) Urine Ketones Urine Blood Urine Nitrite Ur Leukocyte Esterase Urine RBC Urine WBC Ur Squamous Epith Cells Urine Bacteria Urine Mucus Urine Osmolality Ur Random Sodium Ur Random Chloride Ur Random Uric Acid COVID-19 ([facility]) COVID-19 [employer] 11/20/20 11/20/20 11/20/20 22:08 22:08 22:08 WBC RBC Hgb Hct MCV MCH MCHC RDW Plt Count MPV Immature Gran % (Auto) Neut % (Auto) Lymph % (Auto) [place] % (Auto) Eos % (Auto) Baso % (Auto) Lymph # (Auto) [place] # (Auto) Eos # (Auto) Baso # (Auto) Abs Immat Gran (auto) Absolute Neuts (auto) Absolute Nucleated RBC Nucleated RBC % (auto) PT INR APTT D-Dimer VBG pH VBG pCO2 VBG pO2 VBG HCO3 VBG O2 Saturation VBG Base Excess Sodium Potassium Chloride Carbon Dioxide Anion Gap BUN Creatinine Estim Creat Clear Calc Estimated GFR Random Glucose Fasting Glucose Osmolality Lactic Acid Uric Acid Calcium Magnesium Total Bilirubin AST ALT Alkaline Phosphatase Troponin I High Sens B-Natriuretic Peptide Total Protein Albumin TSH Cortisol Urine Color Urine Appearance Urine pH Ur Specific [place] Urine Protein Urine Glucose (UA) Urine Ketones Urine Blood Urine Nitrite Ur Leukocyte Esterase Urine RBC Urine WBC Ur Squamous Epith Cells Urine Bacteria Urine Mucus Urine Osmolality 497 Ur Random Sodium < 20.0 Ur Random Chloride < 20.0 Ur Random Uric Acid 25.9 COVID-19 ([facility]) COVID-19 [employer] 11/20/20 11/21/20 11/21/20 22:16 06:50 06:50 WBC 10.4 RBC 4.05 L Hgb 13.2 Hct 39.7 MCV 98.0 MCH 32.6 MCHC 33.2 RDW 13.2 Plt Count 251 MPV 9.1 L Immature Gran % (Auto) 0.6 H Neut % (Auto) 77.5 H Lymph % (Auto) 10.4 L [place] % (Auto) 10.4 Eos % (Auto) 0.8 Baso % (Auto) 0.3 Lymph # (Auto) 1.1 L [place] # (Auto) 1.1 Eos # (Auto) 0.1 Baso # (Auto) 0.0 Abs Immat Gran (auto) 0.06 H Absolute Neuts (auto) 8.1 Absolute Nucleated RBC 0.000 Nucleated RBC % (auto) 0.0 PT INR APTT D-Dimer < 200 VBG pH VBG pCO2 VBG pO2 VBG HCO3 VBG O2 Saturation VBG Base Excess Sodium 127 L Potassium 3.9 Chloride 81 L Carbon Dioxide 39 H Anion Gap 11 L BUN 31 H Creatinine 0.63 Estim Creat Clear Calc 101.0 Estimated GFR > 60 Random Glucose 115 Fasting Glucose Osmolality Lactic Acid Uric Acid Calcium 9.0 Magnesium Total Bilirubin AST ALT Alkaline Phosphatase Troponin I High Sens B-Natriuretic Peptide Total Protein Albumin TSH Cortisol Urine Color Urine Appearance Urine pH Ur Specific [place] Urine Protein Urine Glucose (UA) Urine Ketones Urine Blood Urine Nitrite Ur Leukocyte Esterase Urine RBC Urine WBC Ur Squamous Epith Cells Urine Bacteria Urine Mucus Urine Osmolality Ur Random Sodium Ur Random Chloride Ur Random Uric Acid COVID-19 ([facility]) COVID-19 [employer] 11/21/20 11/21/20 11/21/20 06:50 06:50 06:51 WBC RBC Hgb Hct MCV MCH MCHC RDW Plt Count MPV Immature Gran % (Auto) Neut % (Auto) Lymph % (Auto) [place] % (Auto) Eos % (Auto) Baso % (Auto) Lymph # (Auto) [place] # (Auto) Eos # (Auto) Baso # (Auto) Abs Immat Gran (auto) Absolute Neuts (auto) Absolute Nucleated RBC Nucleated RBC % (auto) PT INR APTT D-Dimer VBG pH 7.46 H VBG pCO2 VBG pO2 VBG HCO3 VBG O2 Saturation VBG Base Excess Sodium 131 L Potassium 4.4 Chloride 84 L Carbon Dioxide 38 H Anion Gap 13 BUN 24 H Creatinine 0.67 Estim Creat Clear Calc 94.9 Estimated GFR > 60 Random Glucose Fasting Glucose 96 Osmolality Lactic Acid Uric Acid 4.0 Calcium 9.4 Magnesium 1.8 Total Bilirubin AST ALT Alkaline Phosphatase Troponin I High Sens B-Natriuretic Peptide Total Protein Albumin TSH Cortisol Urine Color Urine Appearance Urine pH Ur Specific [place] Urine Protein Urine Glucose (UA) Urine Ketones Urine Blood Urine Nitrite Ur Leukocyte Esterase Urine RBC Urine WBC Ur Squamous Epith Cells Urine Bacteria Urine Mucus Urine Osmolality Ur Random Sodium Ur Random Chloride Ur Random Uric Acid COVID-19 ([facility]) COVID-19 [facility] 11/21/20 11/21/20 11/21/20 06:53 18:27 18:27 WBC RBC Hgb Hct MCV MCH MCHC RDW Plt Count MPV Immature Gran % (Auto) Neut % (Auto) Lymph % (Auto) [place] % (Auto) Eos % (Auto) Baso % (Auto) Lymph # (Auto) [place] # (Auto) Eos # (Auto) Baso # (Auto) Abs Immat Gran (auto) Absolute Neuts (auto) Absolute Nucleated RBC Nucleated RBC % (auto) PT INR APTT D-Dimer VBG pH 7.46 H VBG pCO2 67 VBG pO2 60 VBG HCO3 48 H VBG O2 Saturation 87.0 VBG Base Excess 20.1 Sodium Potassium Chloride Carbon Dioxide Anion Gap BUN Creatinine Estim Creat Clear Calc Estimated GFR Random Glucose Fasting Glucose Osmolality Lactic Acid Uric Acid Calcium Magnesium Total Bilirubin AST ALT Alkaline Phosphatase Troponin I High Sens B-Natriuretic Peptide Total Protein Albumin TSH Cortisol Urine Color Urine Appearance Urine pH Ur Specific [place] Urine Protein Urine Glucose (UA) Urine Ketones Urine Blood Urine Nitrite Ur Leukocyte Esterase Urine RBC Urine WBC Ur Squamous Epith Cells Urine Bacteria Urine Mucus Urine Osmolality 518 Ur Random Sodium < 20.0 Ur Random Chloride Ur Random Uric Acid COVID-19 ([facility]) COVID-19 [employer] 11/22/20 11/22/20 11/23/20 06:06 06:06 04:14 WBC 10.9 H 12.1 H RBC 3.85 L 3.97 L Hgb 12.6 13.0 Hct 38.3 40.1 MCV 99.5 H 101.0 H MCH 32.7 32.7 MCHC 32.9 32.4 RDW 13.3 13.4 Plt Count 236 250 MPV 9.5 9.1 L Immature Gran % (Auto) 0.5 H 0.2 Neut % (Auto) 78.3 H 80.9 H Lymph % (Auto) 9.7 L 9.9 L [place] % (Auto) 9.8 7.7 Eos % (Auto) 1.3 1.0 Baso % (Auto) 0.4 0.3 Lymph # (Auto) 1.1 L 1.2 [place] # (Auto) 1.1 0.9 Eos # (Auto) 0.1 0.1 Baso # (Auto) 0.0 0.0 Abs Immat Gran (auto) 0.05 H 0.03 Absolute Neuts (auto) 8.5 H 9.8 H Absolute Nucleated RBC 0.000 0.000 Nucleated RBC % (auto) 0.0 0.0 PT INR APTT D-Dimer VBG pH VBG pCO2 VBG pO2 VBG HCO3 VBG O2 Saturation VBG Base Excess Sodium 135 Potassium 3.9 Chloride 86 L Carbon Dioxide 38 H Anion Gap 15 BUN 16 Creatinine 0.66 Estim Creat Clear Calc 95.6 Estimated GFR > 60 Random Glucose Fasting Glucose 103 H Osmolality Lactic Acid Uric Acid Calcium 9.1 Magnesium Total Bilirubin AST ALT Alkaline Phosphatase Troponin I High Sens B-Natriuretic Peptide Total Protein Albumin TSH Cortisol Urine Color Urine Appearance Urine pH Ur Specific [place] Urine Protein Urine Glucose (UA) Urine Ketones Urine Blood Urine Nitrite Ur Leukocyte Esterase Urine RBC Urine WBC Ur Squamous Epith Cells Urine Bacteria Urine Mucus Urine Osmolality Ur Random Sodium Ur Random Chloride Ur Random Uric Acid COVID-19 ([facility]) COVID-19 [employer] 11/23/20 11/24/20 11/24/20 04:15 05:34 05:34 WBC 11.0 H RBC 3.83 L Hgb 12.6 Hct 38.6 MCV 100.8 H MCH 32.9 MCHC 32.6 RDW 13.4 Plt Count 235 MPV 9.3 L Immature Gran % (Auto) 0.5 H Neut % (Auto) 77.9 H Lymph % (Auto) 9.9 L [place] % (Auto) 9.8 Eos % (Auto) 1.5 Baso % (Auto) 0.4 Lymph # (Auto) 1.1 L [place] # (Auto) 1.1 Eos # (Auto) 0.2 Baso # (Auto) 0.0 Abs Immat Gran (auto) 0.06 H Absolute Neuts (auto) 8.6 H Absolute Nucleated RBC 0.000 Nucleated RBC % (auto) 0.0 PT INR APTT D-Dimer VBG pH VBG pCO2 VBG pO2 VBG HCO3 VBG O2 Saturation VBG Base Excess Sodium 135 134 L Potassium 4.5 4.6 Chloride 86 L 87 L Carbon Dioxide 39 H 38 H Anion Gap 15 14 BUN 12 14 Creatinine 0.66 0.69 Estim Creat Clear Calc 95.6 91.9 Estimated GFR > 60 > 60 Random Glucose Fasting Glucose 109 H 112 H Osmolality Lactic Acid Uric Acid Calcium 9.1 9.3 Magnesium 1.8 1.8 Total Bilirubin AST ALT Alkaline Phosphatase Troponin I High Sens B-Natriuretic Peptide Total Protein Albumin TSH Cortisol Urine Color Urine Appearance Urine pH Ur Specific [place] Urine Protein Urine Glucose (UA) Urine Ketones Urine Blood Urine Nitrite Ur Leukocyte Esterase Urine RBC Urine WBC Ur Squamous Epith Cells Urine Bacteria Urine Mucus Urine Osmolality Ur Random Sodium Ur Random Chloride Ur Random Uric Acid COVID-19 ([facility]) COVID-19 Clin Com Airway Mallampati Class: II TM Dist: >3cm Neck ROM: Full Assessment and Plan Assessment Anesthesia Assessment: Anesthesia Plan Discussed and Chart Reviewed Final Anesthetic Review NPO: Yes ASA Class: III Final Preanesthetic Review: No Changes in Pt Med Stat, Meds/Allgs Chart Reviewed, Consent Obtained/Reviewed and Anes Risks/Benef Reviewed Patient Risk: Intermediate Procedure Risk: Low Assessment/Block/Sedation in SS: Assess/Block/Sedation-SS Anesthetic Plan Anesthetic Plan: MAC: Disposition: Standard PACU
[2020-11-24] MEDS: Omeprazole 20 MG CAPSULE.DR PO (16:07)
--- NOTE | 2020-11-24 18:27 | PC.NURSE ---
Patient remained NPO this AM for cardioversion. Patient cardioverted with good effect, now in normal sinus rhythm with occassional PAC's and PVC's, HR in the 60s. Jones catheter removed at 1814, due to void at 0015. Patient instructed to utilize call rashid for assistance to commode, patient verbalizes understanding.
[2020-11-24] MEDS: Atorvastatin Calcium 10 MG TABLET PO (21:19)
[2020-11-24] MEDS: Zolpidem Tartrate 5 MG TABLET PO (23:06)
[2020-11-25] VITALS (10 sets, daily range): BP systolic 139–186; BP diastolic 67–90; PULSE 63–76; RESP 18–20; TEMP 35.9–37; O2SAT 94–99; BMI 40.6
[2020-11-25] MEDS: LORazepam 1 MG TABLET PO (01:09)
[2020-11-25] MEDS: Omeprazole 20 MG CAPSULE.DR PO ×2 (06:07→16:04)
[2020-11-25] MEDS: Heparin Sodium,Porcine Flush 50 UNITS, 0.9 % Sodium Chloride Flush 5 ML IVFLUSH ×3 (09:07→22:24)
[2020-11-25] MEDS: 0.9 % Sodium Chloride Flush 3 ML SYRINGE IVFLUSH ×3 (09:07→20:32)
[2020-11-25] MEDS: Metoprolol Tartrate 50 MG TABLET 75 MG PO ×2 (09:08→20:26)
[2020-11-25] MEDS: Apixaban 5 MG TABLET PO ×2 (09:08→20:24)
[2020-11-25] MEDS: Magnesium Oxide 400 MG TABLET PO ×2 (09:08→16:04)
[2020-11-25] MEDS: Flecainide Acetate 50 MG TABLET 150 MG PO ×2 (09:08→20:24)
--- NOTE | 2020-11-25 09:12 | PM.PNCARD ---
Subjective Subjective Date of Service: 11/25/20 Principal diagnosis: Afib, s/p CVR Interval history: Cardiology follow up for afib. Seen at 0900. Today she reports that she has not been sleeping well at home and here in hospital. No chest pains or heart palpitations. No sob, PND, orthopnea or edema. Does not feel diffierent post cardioversion but has not been moving around much yet. Review of Systems Review of Systems as above Yes all other systems are reviewed and are negative Physical Exam Vital Signs: Last Vital Signs Temp 96.7 F L 11/25/20 07:37 Pulse 69 11/25/20 09:08 Resp 18 11/25/20 07:37 BP 186/86 H 11/25/20 09:08 Pulse Ox 98 11/25/20 07:37 Body Mass Index 40.6 Const General: cooperative, no acute distress, alert and awake Orientation/consciousness: patient oriented x3 Eyes Conjunctivae: conjunctivae normal Neck Neck: Yes normal visual inspection and Yes no JVD Carotids: carotid upstroke abnormal Resp Effort & Inspection: normal respiratory effort, able to speak in complete sentences and not labored Auscultation: clear to auscultation bilaterally, no crackles, no rales, no rhonchi and no wheezes Cardio Palpation: normal PMI Rate: regular rate Rhythm: regular rhythm Heart sounds: S1 normal heart sound present and S2 normal heart sound present Peripheral pulses: Peripheral pulses 2+ throughout GI Inspection: Yes normal to inspection Neuro General: patient oriented x3 Extrem General: Yes normal to inspection and No edema Results Labs and Meds Result diagrams: 11/24/20 05:34 11/24/20 05:34 Progress Note: A&P Assessment and plan (1) Atrial fibrillation with rapid ventricular response: Status: Acute Assessment and Plan: Hx of PAF and has been on Flecainide. Admit with CP, sob. Found to have Afib RVR. Flecainide dose and metoprolol doses increased and she did not convert on own. She underwent Cardioversion with Dr Wilson yesterday with successful conversion to SR. EKG shows SR, rate 65 QTc 440ms. Mg 1.8, K 4.6. Tele today shows SR, rates 70s. No chest pains, breathing comfortable at rest. Has not been up and walking yet. On Eliquis for anticoagulation. Needs to be continued without interruption. BP is elevated this admit. Will add Amlodipine 5 mg po daily. If BP better controlled later today she can be discharged to home with the amlodipine, Eliquis, Flecainide 150mg bid and Metoprolol tartrate 75mg bid. We will arrange for outpt cardiology follow up. (2) Essential hypertension: Status: Acute Assessment and Plan: BP elevated this admit. She reports not sleeping well for unclear reason. Her Metoprolol dose has been increased this admit. Adding Amlodipine Fall Risk Details Current Medications: Current Medications Generic Name Dose Route Start Last Admin Trade Name Freq PRN Reason Stop Dose Admin Acetaminophen 650 mg 11/17/20 23:10 11/18/20 08:13 Acetaminophen 325 Mg Tablet PO 650 mg Q6H PRN Administration Pain, Mild (Pain Scale 1-3) Apixaban 5 mg 11/18/20 09:00 11/25/20 09:08 Apixaban 5 Mg Tablet PO 5 mg BID DEE Administration Atorvastatin Calcium 10 mg 11/18/20 21:00 11/24/20 21:19 Atorvastatin Calcium 10 Mg Tablet PO 10 mg BEDTIME DEE Administration Heparin Sodium (Porcine) 50 0 units 11/19/20 15:00 11/25/20 09:07 units/ Sodium Chloride 5 ml IVFLUSH 50 unit TID DEE Administration Flecainide Acetate 150 mg 11/18/20 11:00 11/25/20 09:08 Flecainide Acetate 50 Mg Tablet PO 150 mg BID DEE Administration Lorazepam 1 mg 11/18/20 08:57 11/25/20 01:09 Lorazepam 1 Mg Tablet PO 1 mg BID PRN Administration Anxiety Magnesium Oxide 400 mg 11/19/20 08:30 11/25/20 09:08 Magnesium Oxide 400 Mg Tablet PO 400 mg BIDPC DEE Administration Metoprolol Tartrate 75 mg 11/18/20 21:00 11/25/20 09:08 Metoprolol Tartrate 50 Mg Tablet PO 75 mg BID DEE Administration Protocol Omeprazole 20 mg 11/19/20 16:30 11/25/20 06:07 Omeprazole 20 Mg Capsule. PO 20 mg BID@0630,1630 DEE Administration Senna 17.2 mg 11/17/20 23:10 Sennosides 8.6 Mg Tablet PO BEDTIME PRN Constipation Sodium Chloride 3 ml 11/18/20 00:00 11/25/20 09:07 0.9 % Sodium Chloride Flush 3 Ml Syringe IVFLUSH 3 ml QSHIFT DEE Administration Zolpidem Tartrate 5 mg 11/19/20 16:50 11/24/20 23:06 Zolpidem Tartrate 5 Mg Tablet PO 5 mg BEDTIME PRN Administration Insomnia Time Spent With Patient Time: Total time spent is greater than 50% in coordination of care (as documented) at patient's floor/unit and/or counseling patient: 22 Time with patient: 15 - 24 minutes
[2020-11-25] MEDS: amLODIPine Besylate 5 MG TABLET PO (10:40)
--- NOTE | 2020-11-25 10:55 | HO.POSTANES ---
Post Anesthesia Evaluation Post Anesthesia Evaluation Vital Signs: Vital Signs Temp Pulse Resp BP Pulse Ox 11/25/20 10:40 69 186/86 H 11/25/20 09:08 69 186/86 H 11/25/20 07:37 96.7 F L 69 18 186/86 H 98 11/25/20 03:15 96.9 F 76 18 142/90 H 97 11/24/20 23:33 97.0 F 67 18 155/92 H 96 Anesthesia: General Mental Status: Awake Pain Control: Satisfactory Nausea/Vomiting: None Hydration: Adequate Anesthesia-Related Issues: No Anes. Related Issues
--- NOTE | 2020-11-25 12:18 | MHC.CM.PN ---
patient is on O2 at 2 liters via NC. Patient had cardioversion yesterday and has been in NSR since. Waiting for PT eval to determine patient's discharge plan. Discharge at this time is home no services. Family will provide transportation. CM will continue to follow patient for discharge needs.
--- NOTE | 2020-11-25 13:38 | HO.PM.IMPN ---
Subjective Subjective Date of Service: 11/25/20 Interval History: the patient was seen and evaluated this morning Laying in bed, feels comfortable Heart rate better controlled in sinus after cardioversion Blood pressure significantly elevated this morning Denies any fever, chills or shortness of breath No reported other overnight events. Systemic review: No fever, chills but complain of general weakness No chest pain, palpitation No shortness of breath or coughing No abdominal pain, nausea or vomiting No urinary symptoms No any rash or wounds Physical Exam Vital Signs: Vital Signs: Last Vital Signs Temp 96.6 F L 11/25/20 11:33 Pulse 63 11/25/20 11:33 Resp 20 11/25/20 11:33 BP 139/81 11/25/20 11:33 Pulse Ox 99 11/25/20 11:33 Body Mass Index 40.6 Const: Other: Constitutional : Alert, oriented, not in distress Neck : Normal inspection, Supple Cardiovascular : RRR, S1 S2, trace bilateral lower extremity edema Respiratory : Fair bilateral air entry, no crackles, wheezes or rhonchi Gastrointestinal: soft, lax, Normal bowel sounds, Non tender Skin : Warm/Dry, No rash Neurological : Alert & oriented x3, No focal deficit Objective Data Current Medications Generic Name Dose Route Start Last Admin Trade Name Freq PRN Reason Stop Dose Admin Acetaminophen 650 mg 11/17/20 23:10 11/18/20 08:13 Acetaminophen 325 Mg Tablet PO 650 mg Q6H PRN Administration Pain, Mild (Pain Scale 1-3) Amlodipine Besylate 5 mg 11/25/20 10:30 11/25/20 10:40 Amlodipine Besylate 5 Mg Tablet PO 5 mg DAILY DEE Administration Protocol Apixaban 5 mg 11/18/20 09:00 11/25/20 09:08 Apixaban 5 Mg Tablet PO 5 mg BID DEE Administration Atorvastatin Calcium 10 mg 11/18/20 21:00 11/24/20 21:19 Atorvastatin Calcium 10 Mg Tablet PO 10 mg BEDTIME DEE Administration Heparin Sodium (Porcine) 50 0 units 11/19/20 15:00 11/25/20 09:07 units/ Sodium Chloride 5 ml IVFLUSH 50 unit TID DEE Administration Flecainide Acetate 150 mg 11/18/20 11:00 11/25/20 09:08 Flecainide Acetate 50 Mg Tablet PO 150 mg BID DEE Administration Lorazepam 1 mg 11/18/20 08:57 11/25/20 01:09 Lorazepam 1 Mg Tablet PO 1 mg BID PRN Administration Anxiety Magnesium Oxide 400 mg 11/19/20 08:30 11/25/20 09:08 Magnesium Oxide 400 Mg Tablet PO 400 mg BIDPC DEE Administration Metoprolol Tartrate 75 mg 11/18/20 21:00 11/25/20 09:08 Metoprolol Tartrate 50 Mg Tablet PO 75 mg BID DEE Administration Protocol Omeprazole 20 mg 11/19/20 16:30 11/25/20 06:07 Omeprazole 20 Mg Capsule. PO 20 mg BID@0630,5280 DEE Administration Senna 17.2 mg 11/17/20 23:10 Sennosides 8.6 Mg Tablet PO BEDTIME PRN Constipation Sodium Chloride 3 ml 11/18/20 00:00 11/25/20 09:07 0.9 % Sodium Chloride Flush 3 Ml Syringe IVFLUSH 3 ml QSHIFT DEE Administration Zolpidem Tartrate 5 mg 11/19/20 16:50 11/24/20 23:06 Zolpidem Tartrate 5 Mg Tablet PO 5 mg BEDTIME PRN Administration Insomnia Labs CBC & Chem 7: 11/24/20 05:34 11/24/20 05:34 Microbiology Microbiology Results: Microbiology 11/17/20 22:18 Blood - Venous Blood Culture - Final 11/18/20 00:42 Blood - Venous Blood Culture - Final No growth after 5 days. 11/18/20 Unknown Urine clean catch - Clean Catch Midstream Urine Culture - Final Assessment and Plan (1) Atrial fibrillation with rapid ventricular response: Status: Acute Assessment and Plan: 75F presented with sob afib rvr Sinus rhythm today after cardioversion done flecainide, lopressor, eliquis Continue home medication and tele monitoring for today shortness of breath acute diastolic chf with right sided dysfunction and mild pulm htn resolved hyponatremia Sodium 134 this morning urine labs initially consistent with SIADH, later had low urine sodium, likely some solute defeciency and polydypsia as well s/p urea, salt tablets, fluid restrict, 3% saline, sodium now 135 gradually from [address] chest, CTH, neck no obvious malignancy, oncology appreciated, will need PET as outpatient for further work up of potential malignant cause of SIADH given no obvious offending meds, no obvious lung pathology, and positive cancer history Keep on fluid restriction etoh dependence no signs of withrdawl at this time, CIWA 1/2 blood cultures GPC on gram stain nothing growing on plate suspect contaminant, will hold off on abx for now, but follow up speciation Uncontrolled hypertension Blood pressure of 180s over 70s To add amlodipine to Current medications Monitor blood pressure DVT PPX Eliquis
--- NOTE | 2020-11-25 18:10 | PC.NURSE ---
Patient remains in sinus rhythm with occasional PVC's and PAC's with HR in the 60s/70s following cardioversion yesterday. Patient continues to require 2 L of O2 NC when resting/sleeping due to de-sating as low as the high 70s. Patient amb with standby assist, makes frequent stops to catch breath. PT eval pending.
[2020-11-25] MEDS: Atorvastatin Calcium 10 MG TABLET PO (20:25)
[2020-11-25] MEDS: Zolpidem Tartrate 5 MG TABLET PO (22:29)
[2020-11-26] VITALS (11 sets, daily range): BP systolic 117–164; BP diastolic 56–80; PULSE 62–73; RESP 17–20; TEMP 36.2–36.9; O2SAT 80–98; BMI 39.1
[2020-11-26] MEDS: LORazepam 1 MG TABLET PO (03:51)
[2020-11-26] MEDS: Omeprazole 20 MG CAPSULE.DR PO ×2 (05:56→16:03)
[2020-11-26 06:32] LABS: Hematocrit 37.2 % (37-47); Hemoglobin 11.9 g/dl (12.0-16.0); Mean Corpuscular Hemoglobin 32.4 pg (27.0-33.0); Mean Corpuscular Volume 101.4 fL (80-98); Mean Platelet Volume 9.3 fL (9.4-12.3); Platelet Count 216 X10*3/uL (160-400); Red Blood Count 3.67 X10*6/uL (4.20-5.50); Red Cell Distribution Width 13.2 % (11.0-16.0); White Blood Count 10.4 X10*3/uL (4.8-10.8)
[2020-11-26 07:08] LABS: Blood Urea Nitrogen 12 mg/dL (9-16); Calcium 9.2 mg/dL (8.4-10.2); Creatinine Clr Calc Pharmacy 91.2; Estimated Glomerular Filt Rate > 60; Glucose Random 104 mg/dL (60-115)
[2020-11-26 07:27] LABS: Anion Gap 13 (12-20); Carbon Dioxide 39 mmol/L (22-29); Chloride 88 mmol/L (96-108); Potassium 4.8 mmol/L (3.3-5.1); Sodium 135 mmol/L (135-145)
[2020-11-26] MEDS: 0.9 % Sodium Chloride Flush 3 ML SYRINGE IVFLUSH ×2 (09:36→16:48)
[2020-11-26] MEDS: Metoprolol Tartrate 50 MG TABLET 75 MG PO ×2 (09:37→21:17)
[2020-11-26] MEDS: amLODIPine Besylate 5 MG TABLET PO (09:37)
[2020-11-26] MEDS: Magnesium Oxide 400 MG TABLET PO ×2 (09:37→16:48)
[2020-11-26] MEDS: Apixaban 5 MG TABLET PO ×2 (09:38→21:17)
[2020-11-26] MEDS: Flecainide Acetate 50 MG TABLET 150 MG PO ×2 (09:39→21:16)
[2020-11-26] MEDS: Heparin Sodium,Porcine Flush 50 UNITS, 0.9 % Sodium Chloride Flush 5 ML IVFLUSH ×3 (09:54→21:19)
--- NOTE | 2020-11-26 12:09 | MHC.CM.PN ---
Per MD discussion, Patient will be medically cleared for dc to home today with [facility]. Per Patient's request, a referral has been made to [facility], who is aware of today's dc. has approved [facility] SOC on 11/29/20.IMM addressed with Patient and original has been given to her and a copy has been placed on the chart.
--- NOTE | 2020-11-26 12:39 | P.DS_ITS ---
DS: Providers Provider Date of Service: 11/26/20 Date of admission: 11/17/20 23:10 Primary care physician: Juan Miguel Martinez MD Consults: 11/17/20 23:09 Consult to Cardiology Routine Consulting Provider: Vladislav Cervantes Reason for consultation: KELLY; Chest pain Consult to Nephrology Routine Consulting Provider: Iain Starks Reason for consultation: Hyponatremia 11/20/20 09:25 Consult to Hematology / Oncology Routine Consulting Provider: Toshia Calvillo Reason for consultation: hx of throat ca in remission, new SIADH, ?due to malignancy DS: Diagnosis Discharge Diagnosis (1) Atrial fibrillation with rapid ventricular response: Status: Acute (2) Hypomagnesemia: Status: Acute (3) Hyponatremia: Status: Acute (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): Status: Acute (5) Uncontrolled hypertension: Status: Acute (6) Acute diastolic CHF (congestive heart failure): Status: Acute DS: Medications Discharge Medications Home Medications: Home Medications Medication Instructions Recorded Confirmed lorazepam 1 tab PO BID PRN 11/18/20 11/18/20 omeprazole 1 cap PO BID 11/18/20 11/18/20 simvastatin 1 tab PO DAILY 11/18/20 11/18/20 Previous Rx's Medication Instructions Recorded apixaban 5 mg tablet 5 mg PO BID 30 Days #60 tab 10/13/20 amlodipine 5 mg PO DAILY #30 tab 11/26/20 flecainide 150 mg PO BID #180 tab 11/26/20 magnesium oxide 400 mg PO BIDPC #60 tab 11/26/20 metoprolol tartrate 75 mg PO BID #90 tab 11/26/20 DS: Summary Hospital Course Hospital Course: Admission note HPI 75-year-old female with past medical history of hypertension hyperlipidemia, anxiety, AFib on Eliquis, chronic back pain status post surgery presented hospital a chief complaint of chest discomfort. Patient mentions that she has been having intermittent discomfort, no associated lightheadedness dizziness. No associated diaphoresis nausea or vomiting. Denies any chest pain at the time of my entry. Also mentioned she has been having shortness of breath and dyspnea on exertion with minimal activity. Denies any leg swelling. Denies any fever chills cough. Denies any recent travel or sick contacts. Review of all other systems is negative except mentioned above ER course: Per ER team patient noted to have sodium of 119. Chest x-ray showed no acute findings. Noted elevated proBNP, EKG nonischemic ; troponin negative admitted to the hospital for further management. Hospital course Admitted to the hospital for evaluation of shortness of breath. Was found to be in atrial fibrillation with rapid ventricular response and picture of acute diastolic CHF exacerbation. Atrial fibrillation with rapid ventricular response was treated primarily with IV and oral rate control medications with no good control or response from the patient. Evaluated by Cardiology who decided to do a cardioversion with good response as the patient returned to sinus rhythm and has been controlled since then. Flecainide and Lopressor was increased as well and will remain the same at time of discharge. She was treated for acute diastolic CHF exacerbation with IV Lasix as Echo showed within normal ejection fraction and mild pulmonary hypertension. It is thought to be likely result of atrial fibrillation RVR. Lasix discontinued per Cardiology and will hold it at time of discharge. Noticed to have low sodium level at time of presentation. urine labs initially consistent with SIADH, later had low urine sodium. Evaluated by Nephrology as a sodium level improved s/p urea, salt tablets, fluid restrict, 3% saline, sodium now 135 gradually from [address] chest, CT neck no obvious malignancy but reported multiple small bilateral pulmonary nodules. She was evaluated by Oncology team Dr. Calvillo who recommended an outpatient PET scan. 1/2 blood cultures GPC on gram stain nothing growing on plate suspect contaminant, as blood cultures did not grow anything. Uncontrolled hypertension Noticed to be elevated on 180s. Responded well to addition of amlodipine. To continue at time of discharge. Time Spent with Patient Time attestation: Total time spent providing and/or coordinating discharge services: Discharge coordination time: Greater than 30 minutes Physical Exam Vital Signs: Vital Signs: Last Vital Signs Temp 97.4 F 11/26/20 11:41 Pulse 67 11/26/20 11:41 Resp 17 11/26/20 11:41 BP 145/78 H 11/26/20 11:41 Pulse Ox 97 11/26/20 11:41 Body Mass Index 39.1 Const: Other: Constitutional : Alert, oriented, not in distress Neck : Normal inspection, Supple Cardiovascular : RRR, S1 S2, trace bilateral lower extremity edema Respiratory : Fair bilateral air entry, no crackles, wheezes or rhonchi Gastrointestinal: soft, lax, Normal bowel sounds, Non tender Skin : Warm/Dry, No rash Neurological : Alert & oriented x3, No focal deficit DS: Data Data Completed and Pending Labs on day of discharge: Laboratory Results - last 24 hr 11/26/20 11/26/20 05:46 05:46 WBC 10.4 RBC 3.67 L Hgb 11.9 L Hct 37.2 MCV 101.4 H MCH 32.4 MCHC 32.0 RDW 13.2 Plt Count 216 MPV 9.3 L Absolute Nucleated RBC 0.000 Nucleated RBC % (auto) 0.0 Sodium 135 Potassium 4.8 Chloride 88 L Carbon Dioxide 39 H Anion Gap 13 BUN 12 Creatinine 0.69 Estim Creat Clear Calc 91.2 Estimated GFR > 60 Random Glucose 104 Calcium 9.2 Discharge Plan Discharge Patient Disposition: Home Health Service Discharge Diagnosis: Atrial fibrillation of new onset Heart failure exacerbation Hyponatremia Referrals: Ashok VASQUEZ [Outside] - 1 Week Juan Miguel Martinez MD [Primary Care Provider] - 1 Week Discharge Medications: New metoprolol tartrate 50 mg Tablet 75 mg PO BID Qty: 90 RF: 0 amlodipine 5 mg Tablet 5 mg PO DAILY Qty: 30 RF: 0 flecainide 50 mg Tablet 150 mg PO BID Qty: 180 RF: 0 magnesium oxide 400 mg (241.3 mg magnesium) Tablet 400 mg PO BIDPC Qty: 60 RF: 0 Continued Eliquis 5 mg tablet 5 mg PO BID 30 Days Qty: 60 RF: 0 simvastatin 10 mg tablet 1 tab PO DAILY RF: 0 omeprazole 20 mg capsule,delayed release(DR/EC) 1 cap PO BID RF: 0 lorazepam 1 mg tablet 1 tab PO BID PRN (Reason: Anxiety) RF: 0 Discontinued metoprolol tartrate 50 mg tablet 1 tab PO BID RF: 0 flecainide 100 mg tablet 1 tab PO BID RF: 0 Discharge Orders: Discharge Order (Routine); Ordered 11/26/20 Ordered By: Marino Douglas Diet: advance to usual diet Activity on Discharge: As tolerated Stand Alone Forms: Patient Portal Discharge page Other Ambulatory Orders: Basic Metabolic Panel (Routine) Timeframe: 1 Week Facility: [facility] - Location: Laboratory Ordered By: Marino Douglas Care Plan Goals: Read below Health Concerns: Read below Plan of Treatment: You were admitted to the hospital for evaluation of shortness of breath. You were noticed to have a irregular heart rhythm called atrial fibrillation which was controlled with cardioversion done by Cardiology . Your home medications were adjusted and you remain in a regular sinus rhythm since then. You were noticed to low sodium level which was controlled with fluid restriction as you were evaluated by public information director doctor Hero. You were evaluated by an oncologist Dr. Calvillo who suggested a follow-up as outpatient for further evaluation with a PET scan. Your blood pressure was noted to be elevated and it was better controlled with addition of amlodipine Assessment: . Continue home medications as prescribed To repeat blood test for kidney function next week To follow-up with nephrology and hematology as outpatient.
--- NOTE | 2020-11-26 13:45 | PC.NURSE ---
Took oxygen off to test RA saturation. While sleeping, patient dipped in low 80's. When awoke, came up to low 90's. Dr. Douglas made aware of need for home O2 evaluation if being discharged today.
--- NOTE | 2020-11-26 14:03 | MHC.CM.PN ---
Per , dc on hold for today, pending RT consult (? of need for home O2). CM will follow.
--- NOTE | 2020-11-26 14:47 | HO.PM.IMPN ---
Subjective Subjective Date of Service: 11/26/20 Interval History: the patient was seen and evaluated this morning Laying in bed, feels comfortable Heart rate better controlled in sinus after cardioversion Oxygen level dropped 82% on room air this afternoon Denies any fever, chills or shortness of breath No reported other overnight events. Systemic review: No fever, chills but complain of general weakness No chest pain, palpitation No shortness of breath or coughing No abdominal pain, nausea or vomiting No urinary symptoms No any rash or wounds Physical Exam Vital Signs: Vital Signs: Last Vital Signs Temp 97.4 F 11/26/20 11:41 Pulse 67 11/26/20 11:41 Resp 17 11/26/20 11:41 BP 145/78 H 11/26/20 11:41 Pulse Ox 97 11/26/20 11:41 Body Mass Index 39.1 Const: Other: Constitutional : Alert, oriented, not in distress Neck : Normal inspection, Supple Cardiovascular : RRR, S1 S2, trace bilateral lower extremity edema Respiratory : Fair bilateral air entry, no crackles, wheezes or rhonchi Gastrointestinal: soft, lax, Normal bowel sounds, Non tender Skin : Warm/Dry, No rash Neurological : Alert & oriented x3, No focal deficit Objective Data Current Medications Generic Name Dose Route Start Last Admin Trade Name Freq PRN Reason Stop Dose Admin Acetaminophen 650 mg 11/17/20 23:10 11/18/20 08:13 Acetaminophen 325 Mg Tablet PO 650 mg Q6H PRN Administration Pain, Mild (Pain Scale 1-3) Amlodipine Besylate 5 mg 11/25/20 10:30 11/26/20 09:37 Amlodipine Besylate 5 Mg Tablet PO 5 mg DAILY DEE Administration Protocol Apixaban 5 mg 11/18/20 09:00 11/26/20 09:38 Apixaban 5 Mg Tablet PO 5 mg BID DEE Administration Atorvastatin Calcium 10 mg 11/18/20 21:00 11/25/20 20:25 Atorvastatin Calcium 10 Mg Tablet PO 10 mg BEDTIME DEE Administration Heparin Sodium (Porcine) 50 0 units 11/19/20 15:00 11/26/20 09:54 units/ Sodium Chloride 5 ml IVFLUSH 50 unit TID DEE Administration Flecainide Acetate 150 mg 11/18/20 11:00 11/26/20 09:39 Flecainide Acetate 50 Mg Tablet PO 150 mg BID DEE Administration Lorazepam 1 mg 11/18/20 08:57 11/26/20 03:51 Lorazepam 1 Mg Tablet PO 1 mg BID PRN Administration Anxiety Magnesium Oxide 400 mg 11/19/20 08:30 11/26/20 09:37 Magnesium Oxide 400 Mg Tablet PO 400 mg BIDPC DEE Administration Metoprolol Tartrate 75 mg 11/18/20 21:00 11/26/20 09:37 Metoprolol Tartrate 50 Mg Tablet PO 75 mg BID DEE Administration Protocol Omeprazole 20 mg 11/19/20 16:30 11/26/20 05:56 Omeprazole 20 Mg Capsule. PO 20 mg BID@0630,1630 [facility] Administration Senna 17.2 mg 11/17/20 23:10 Sennosides 8.6 Mg Tablet PO BEDTIME PRN Constipation Sodium Chloride 3 ml 11/18/20 00:00 11/26/20 09:36 0.9 % Sodium Chloride Flush 3 Ml Syringe IVFLUSH 3 ml QSHIFT [facility] Administration Zolpidem Tartrate 5 mg 11/19/20 16:50 11/25/20 22:29 Zolpidem Tartrate 5 Mg Tablet PO 5 mg BEDTIME PRN Administration Insomnia Labs CBC & Chem 7: 11/26/20 05:46 11/26/20 05:46 Microbiology Microbiology Results: Microbiology 11/17/20 22:18 Blood - Venous Blood Culture - Final 11/18/20 00:42 Blood - Venous Blood Culture - Final No growth after 5 days. 11/18/20 Unknown Urine clean catch - Clean Catch Midstream Urine Culture - Final Assessment and Plan (1) Atrial fibrillation with rapid ventricular response: Status: Acute (2) Hypomagnesemia: Status: Acute (3) Hyponatremia: Status: Acute (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): Status: Acute (5) Uncontrolled hypertension: Status: Acute (6) Acute diastolic CHF (congestive heart failure): Status: Acute Assessment and Plan: 75F presented with sob afib rvr Sinus rhythm today after cardioversion done flecainide, lopressor, eliquis Continue home medication and tele monitoring for today Acute hypoxic respiratory failure acute diastolic chf with right sided dysfunction and mild pulm htn Still requiring O2 supplement Of 2 sat dropped to 82% on room air this afternoon To do home O2 evaluation To give Lasix hyponatremia Sodium 134 this morning urine labs initially consistent with SIADH, later had low urine sodium, likely some solute defeciency and polydypsia as well s/p urea, salt tablets, fluid restrict, 3% saline, sodium now 135 gradually from [address] chest, CTH, neck no obvious malignancy, oncology appreciated, will need PET as outpatient for further work up of potential malignant cause of SIADH given no obvious offending meds, no obvious lung pathology, and positive cancer history Keep on fluid restriction etoh dependence no signs of withrdawl at this time, CIWA Uncontrolled hypertension Better controlled Continue amlodipine Monitor blood pressure DVT PPX Eliquis
[2020-11-26] MEDS: Furosemide 20 MG/2 ML VIAL IVPUSH (16:05)
[2020-11-26] MEDS: Atorvastatin Calcium 10 MG TABLET PO (21:17)
[2020-11-26] MEDS: Zolpidem Tartrate 5 MG TABLET PO (22:44)
[2020-11-27] VITALS (7 sets, daily range): BP systolic 118–153; BP diastolic 61–88; PULSE 62–86; RESP 16–18; TEMP 36.1–36.6; O2SAT 96–99; BMI 39.2
[2020-11-27] MEDS: LORazepam 1 MG TABLET PO (02:41)
[2020-11-27] MEDS: Omeprazole 20 MG CAPSULE.DR PO (06:16)
[2020-11-27] MEDS: 0.9 % Sodium Chloride Flush 3 ML SYRINGE IVFLUSH (08:32)
[2020-11-27] MEDS: Magnesium Oxide 400 MG TABLET PO (08:33)
[2020-11-27] MEDS: Apixaban 5 MG TABLET PO (08:33)
[2020-11-27] MEDS: Metoprolol Tartrate 50 MG TABLET 75 MG PO (08:33)
[2020-11-27] MEDS: Flecainide Acetate 50 MG TABLET 150 MG PO (08:33)
[2020-11-27] MEDS: Heparin Sodium,Porcine Flush 50 UNITS, 0.9 % Sodium Chloride Flush 5 ML IVFLUSH (08:33)
[2020-11-27] MEDS: amLODIPine Besylate 5 MG TABLET PO (08:34)
[2020-11-27] MEDS: guaiFENesin LA 600 MG TAB.ER.12H PO (11:39)
--- NOTE | 2020-11-27 12:02 | MHC.CM.PN ---
Patient has been medically cleared for dc to home today with VNA. A referral had been made to [facility], who has been notified of today's dc. Last IMM addressed yesterday.
--- NOTE | 2020-11-27 13:36 | PC.NURSE ---
PER REQUEST, RUE MIDLINE REMOVAL, NO LONGER NEEDED. INTACT, FUNCTIONAL 20G x 8CM SINGLE LUMEN NONPASV MIDLINE REMOVED. PT DENIES COMPLAINTS.
== END 2020-11-27 16:54 | disposition home health service (06) | DRG 643 ==
LOC: HO.ED 23:10 → HO.EDOVER 11-18 00:03 → HO.IMC 11-18 17:35
PROVIDERS: Internal Medicine; Internal Medicine Cardiovascular Disease; Internal Medicine Nephrology; Admitting Provider Hospitalist; Emergency Provider Student in an Organized Health Care Education/Training Program; PCP Internal Medicine; Visit Provider Student in an Organized Health Care Education/Training Program
PROC: 5A2204Z Restoration of Cardiac Rhythm, Single (ICD-10-PCS; principal; 2020-11-24 12:40)
DX: E22.2 Syndrome of inappropriate secretion of antidiuretic hormone (principal); I50.31 Acute diastolic (congestive) heart failure; J96.01 Acute respiratory failure with hypoxia; I11.0 Hypertensive heart disease with heart failure; I48.0 Paroxysmal atrial fibrillation; I25.2 Old myocardial infarction; R91.8 Other nonspecific abnormal finding of lung field; I27.20 Pulmonary hypertension, unspecified; F10.20 Alcohol dependence, uncomplicated; G89.29 Other chronic pain; Z85.818 Personal history of malignant neoplasm of other sites of lip, oral cavity, and pharynx; Z20.822 Contact with and (suspected) exposure to COVID-19; Z79.01 Long term (current) use of anticoagulants; Z79.899 Other long term (current) drug therapy
CPT/HCPCS: 36410; 36415; 70450; 70490; 71045; 71250; 80048; 80051; 80053; 81001; 81003; 82436; 82533; 82800; 83605; 83735; 83880; 83930; 83935; 84300; 84443; 84484; 84550; 84560; 85025; 85027; 85379; 85610; 85730; 87040; 87086; 87205; 87635; 92960; 93005; 93306; 96365; 96375; 97161; 99285; 99291; C1758; J1642; J1940; J2405; J2765; J3475; J7131; Q9957

== ENCOUNTER 2020-12-04 13:04 | Outpatient (REF) | payer MEDICARE, MEDICAID, SELFPAY ==
[2020-12-04 13:58] LABS: Anion Gap 12 (12-20); Blood Urea Nitrogen 14 mg/dL (9-16); Calcium 9.1 mg/dL (8.4-10.2); Carbon Dioxide 38 mmol/L (22-29); Chloride 88 mmol/L (96-108); Estimated Glomerular Filt Rate > 60; Glucose Random 118 mg/dL (60-115); Sodium 133 mmol/L (135-145)
== END 2020-12-04 13:05 | disposition home or self-care (01) ==
LOC: HO.HVNA 13:04
PROVIDERS: Visit Provider Internal Medicine
DX: I50.9 Heart failure, unspecified (principal)
CPT/HCPCS: 36415; 80048

== ENCOUNTER 2020-12-10 16:00 | Outpatient (REF) | payer MEDICARE, MEDICAID, SELFPAY ==
[2020-12-10 17:08] LABS: Basophils Percent Auto 0.1 % (0-2); Eosinophils Percent Auto 0.1 % (0-4); Hematocrit 36.4 % (37-47); Hemoglobin 11.4 g/dl (12.0-16.0); Imm Gran Abs Auto 0.06 X10*3/uL (0.00-0.03); Imm Gran Pct Auto 0.4 % (0.0-0.4); Lymphocytes Absolute Auto 0.4 X10*3/uL (1.2-4.9); Lymphocytes Percent Auto 2.9 % (20-40); MANUAL DIFF FLAG SCAN; Mean Corpuscular HGB Conc 31.3 g/dl (31.0-35.0); Mean Corpuscular Volume 102.2 fL (80-98); Mean Platelet Volume 9.9 fL (9.4-12.3); Monocytes Absolute Auto 0.6 X10*3/uL (0.1-1.2); Monocytes Percent Auto 4.1 % (2-11); Neutrophils Absolute Auto 13.2 X10*3/uL (2.0-8.3); Neutrophils Percent Auto 92.4 % (45-73); Platelet Count 263 X10*3/uL (160-400); Red Blood Count 3.56 X10*6/uL (4.20-5.50); Red Cell Distribution Width 12.7 % (11.0-16.0); SCAN SMEAR FLAG 1; White Blood Count 14.3 X10*3/uL (4.8-10.8)
[2020-12-10 17:15] LABS: Estimated Average Glucose 114 mg/dL; Hemoglobin A1c % 5.6 %
[2020-12-10 17:23] LABS: Glucose Urine UA NEG (NEG); Leukocyte Esterase Urine 1+ (NEG); Nitrite Urine NEG (NEG); Specific Gravity - Urine >= 1.030 (1.005-1.025); Urine Blood NEG (NEG); Urine Ketones NEG (NEG); Urine Protein 1+ MG/DL (NEG-TRACE)
[2020-12-10 17:24] LABS: Appearance Urine CLEAR; Color Urine YELLOW
[2020-12-10 17:33] LABS: Alanine Aminotransferase 24 U/L (0-31); Albumin Level 3.9 g/dL (3.5-5.0); Alkaline Phosphatase 69 U/L (39-117); Anion Gap 12 (12-20); Aspartate Amino Transferase 20 U/L (5-31); Bilirubin Total 0.8 mg/dL (0.0-1.0); Blood Urea Nitrogen 22 mg/dL (9-16); C Reactive Protein 5.04 mg/dL (< or = 0.50); Calcium 8.9 mg/dL (8.4-10.2); Carbon Dioxide 36 mmol/L (22-29); Chloride 86 mmol/L (96-108); Estimated Glomerular Filt Rate > 60; Glucose Random 167 mg/dL (60-115); Magnesium 1.9 mg/dL (1.6-2.6); Phosphorus 3.5 mg/dL (2.7-4.5); Potassium 5.1 mmol/L (3.3-5.1); Sodium 129 mmol/L (135-145); Total Protein 6.5 g/dL (6.5-8.0)
[2020-12-10 17:34] LABS: SLIDE REVIEW VERIFIED
[2020-12-10 17:42] LABS: Bacteria Urine TRACE /LPF; RBC Urine 0-2 /HPF (0); Renal Epithelial Cells Urine TRACE /LPF; Squamous Epithelial Cell Urine TRACE /LPF; WBC Urine 0-2 /HPF (0-4)
[2020-12-10 17:51] LABS: Sodium Urine Random < 20.0 mmol/L
[2020-12-10 17:55] LABS: Thyroid Stimulating Hormone 1.58 uIU/mL (0.32-4.0)
== END 2020-12-10 16:01 | disposition home or self-care (01) ==
LOC: HO.LAB 16:00
PROVIDERS: Absent Provider Student in an Organized Health Care Education/Training Program; PCP Internal Medicine; Visit Provider Internal Medicine
DX: Z13.89 Encounter for screening for other disorder (principal)
CPT/HCPCS: 36415; 80053; 81001; 82550; 83036; 83735; 84100; 84300; 84439; 84443; 85025; 86140

== ENCOUNTER 2020-12-13 10:38 | Inpatient (IN) | payer MEDICARE, MEDICAID, SELFPAY ==
[2020-12-13] VITALS (9 sets, daily range): BP systolic 112–162; BP diastolic 58–90; PULSE 59–81; RESP 14–20; TEMP 36.3–37.1; O2SAT 92–100; BMI 38.7
--- NOTE | ~2020-12-13 | CT_ITS ---
EXAMINATION: CT CHEST WITHOUT CONTRAST CLINICAL INFORMATION: Dyspnea COMPARISON: Previous chest x-rays most recent from earlier the same day and chest CT most recent 01/03/2021 TECHNIQUE: Multidetector volumetric CT imaging of the chest was done. Axial MIP volume rendering provided. Sagittal and coronal reformatted images were obtained. This CT examination was performed using dose optimization techniques as appropriate, variously including the following: *Automated exposure control *Adjustment of mA and/or kV according to patient size (this includes techniques or standardized protocols for targeted exams where dose is matched to indication/reason for exam; i.e. extremities or head) *Use of iterative reconstruction technique DLP: 319 mGy-cm FINDINGS: ANESTHESIA ASSISTANT: LUNGS: There is a new tracheostomy tube in satisfactory position. The previously identified groundglass attenuation infiltrates in the bilateral upper lobes appear improved. There are residual increased reticular linear markings seen in this region. There is compressive atelectasis/consolidation in both lower lobes adjacent to the large bilateral pleural effusions. There are several small 3 mm right middle lobe nodules axial image 283, 284 and 317 series 5 that are stable. MEDIASTINUM: The heart is enlarged. There is no pericardial effusion. There is mild coronary artery calcification. There are small mediastinal lymph nodes. No enlarged lymph nodes are seen. Visualized thyroid gland is unremarkable. PLEURA: There are large bilateral pleural effusions. Previously identified right chest tube has been removed. AXILLA: No lymphadenopathy. UPPER ABDOMEN: There is a G-tube in the stomach. There is air in the anterior abdominal wall, question related to G-tube placement. There is a small amount of ascites. No free air is seen. OSSEOUS STRUCTURES: There are multiple anterior left upper rib fractures that appear unchanged. There is lucency seen in the sternum on the sagittal reconstructions axial image 57 series 7. This is not appreciated on axial images or on coronal reconstructed images and may represent artifact due to motion. There are degenerative changes of the spine. CT/CT chest wo con IMPRESSION: New tracheostomy tube. New large bilateral pleural effusions and bilateral lower lobe compressive atelectasis or consolidation. Improved groundglass attenuation infiltrates in the upper lobes. Stable small right middle lobe nodules. New G-tube. Small amount of air in the anterior abdominal wall, question related to recent G-tube insertion. No free air is seen. Small amount of ascites. Multiple left anterior rib fractures similar to previous exam.
--- NOTE | ~2020-12-13 | CT_ITS ---
EXAMINATION: CT ANGIOGRAM OF THE CHEST WITH AND WITHOUT CONTRAST (CT PULMONARY ANGIOGRAM FOR PE) CLINICAL INFORMATION: Reason for Exam r/o pe . History of throat cancer. COMPARISON: Chest radiograph 12/27/2020, CT chest 11/19/2020. TECHNIQUE: Prior to contrast administration, noncontrast localization images were obtained. Subsequently, multidetector volumetric imaging was performed from the thoracic inlet to below the diaphragms following the administration of 80 mL Omnipaque 350 intravenous contrast. No contrast reaction reported Sagittal, coronal, and MIP oblique sagittal reformatted images were obtained on the CT workstation, uploaded to PACS, and reviewed. This CT examination was performed using dose optimization techniques as appropriate, variously including the following: *Automated exposure control *Adjustment of mA and/or kV according to patient size (this includes techniques or standardized protocols for targeted exams where dose is matched to indication/reason for exam; i.e. extremities or head) *Use of iterative reconstruction technique Total exam dose-length product 512 mGy-cm FINDINGS: QUALITY OF STUDY/CONTRAST BOLUS: Satisfactory. PULMONARY ARTERIES: No intraluminal filling defects are noted within the visualized pulmonary arterial system to suggest presence of pulmonary emboli. The main and central pulmonary arteries are normal in caliber. THORACIC AORTA: Normal caliber. Moderate scattered calcific atherosclerotic plaques. LUNG: A moderate dependent layering low density (-5 Hounsfield unit) right pleural effusion is present and is associated with complete atelectasis of the right lower pulmonary lobe and partial atelectasis of the right middle pulmonary lobe. A trace left pleural effusion is present in association with near-complete atelectasis of the left lower pulmonary lobe. Partial consolidation of the right middle pulmonary lobe is noted. Mild upper lung zone groundglass pulmonary opacities are identified. Of note, images of the lungs are slightly suboptimal secondary to motion artifact The following pulmonary nodules are noted. 3 mm noncalcified nodule within the right upper pulmonary lobe peripherally (series 7 image 189) 3 mm lingular nodule (series 7 image 188). 1 mm calcified nodule left upper pulmonary lobe (series 7 image 113) Focal subpleural/pleural thickening to a width of 6 mm adjacent to the lingula (series 7 image 249). Of note, the 7 mm chronic nodule within the right middle pulmonary lobe noted on the comparison exam of 11/19/2020 is not specifically visualized on the current exam and may be obscured from visualization by atelectasis and consolidation. The visualized common nodules on the current exam are unchanged compared with 11/19/2020. PLEURA: A moderate right pleural effusion and small left pleural effusion are noted as described above. MEDIASTINUM: No mediastinal lymphadenopathy is noted. Vascular clips are present in the region of the insulin visualized inferior margins of the thyroid. A left upper extremity PICC terminates in the region of the superior vena cava with the terminus obscured from visualization by high density contrast. Heart size is normal. No pericardial thickening or fluid collections are visualized. No evidence of septal bowing or right heart strain. CHEST WALL/AXILLA: Subcutaneous soft tissue inflammatory changes are present along the lateral and posterolateral aspects of the lower right thoracic wall extending beyond the inferior margin of the image [id number]. OSSEOUS STRUCTURES: Transverse, 100% displaced fracture of the anterior segment of the left third rib is noted. Minimally displaced transverse fractures of the left fourth through seventh ribs are noted. The sternum appears intact. Multilevel anterior endplate osteophytosis of the thoracic spine is noted. UPPER ABDOMEN: High density oral contrast is noted within the colon and gives rise to scattering artifact which partially obscures visualization of adjacent structures. An enteric tube is noted terminating in the region of the prepyloric gastric antrum. Partial visualization is made of low-density free intraperitoneal fluid (-8 Hounsfield units within the right subphrenic and perihepatic regions. The liver is not fully included within the image [id number]. A punctate calcification is noted in the region of the armando hepatis. CT/CT angio chest PE protocol IMPRESSION: 1. CT pulmonary angiogram negative for pulmonary emboli. 2. Moderate right pleural effusion and small left pleural effusion. Findings are associated with complete atelectasis of the right inferior lobe, near-complete atelectasis of the left inferior pulmonary lobe and partial atelectasis and consolidation of the right middle pulmonary lobe. Additionally, mild scattered nonspecific groundglass opacities are present in the upper lung zones. In the correct clinical setting, the upper lung zone groundglass opacities could represent viral pneumonitis. 3. Fractures of the anterior segments of the left third through seventh ribs. 4. Soft tissue inflammatory changes along the lateral and posterolateral aspect of the inferior right thoracic wall. 5. Partial visualization of a mild-moderate quantity of low density free intraperitoneal perihepatic fluid which could represent ascites. 6. Endotracheal tube terminating 1 cm superior to the yunier. 7. Enteric tube terminating within the stomach. Left upper cavity PICC terminating within the superior vena cava. 8. Partial visualization of scattered subcentimeter calcified and noncalcified pulmonary nodules. These nodules are visualized to better advantage on the comparison CT of the thorax from 11/19/2020. This examination recommend a follow-up noncontrast CT of the thorax in 3 months to assess for change. (History of carcinoma.) VTE: negative
--- NOTE | ~2020-12-13 | XR_ITS ---
EXAMINATION: XR CHEST CLINICAL INFORMATION: Right pleural effusion with chest tube present COMPARISON: 01/04/2021 TECHNIQUE: Frontal view of the chest was obtained. FINDINGS: Redemonstrated right basilar pigtail catheter. Left subclavian central line tip lies in the region of the upper SVC. Lung volumes are symmetric. Redemonstrated multifocal bilateral airspace opacities and small pleural effusions, overall similar to 01/04/2021. No appreciable pneumothorax. The cardiomediastinal silhouette is stable. No acute osseous findings are seen. XR/XR chest 1V IMPRESSION: No significant change since 01/04/2021. Persistent bilateral multifocal airspace opacities and small pleural effusions.
--- NOTE | ~2020-12-13 | CT_ITS ---
EXAMINATION: CT HEAD WITHOUT CONTRAST CLINICAL INFORMATION: Altered mental status COMPARISON: None TECHNIQUE: Contiguous axial imaging was performed from the skull base to vertex without intravenous administration of contrast. This CT examination was performed using dose optimization techniques as appropriate, variously including the following: *Automated exposure control *Adjustment of mA and/or kV according to patient size (this includes techniques or standardized protocols for targeted exams where dose is matched to indication/reason for exam; i.e. extremities or head) *Use of iterative reconstruction technique DLP: 1032 mGy-cm FINDINGS: There is no evidence of acute intracranial hemorrhage or territorial infarction. No abnormal mass effect or midline shift is seen. Santos to white matter differentiation is well preserved. No extra-axial fluid collections are identified. The lateral ventricles are symmetrical but enlarged in size. Diffuse pericolonic hypodensity seen in both cerebral hemispheres. Otherwise grade 2 white matter differentiation is maintained normal The osseous structures and soft tissues are normal. The mastoid air cells and visualized portions of the paranasal sinuses are well aerated. CT/CT head/brain wo con IMPRESSION: No acute intracranial process seen. There are is moderate cerebral volume loss with chronic small vessel microangiopathy.
--- NOTE | ~2020-12-13 | US_ITS ---
EXAMINATION: DUPLEX VENOUS ULTRASOUND OF THE LEFT UPPER EXTREMITY. CLINICAL HISTORY: Subclavian ICD. Rule out subclavian thrombosis. COMPARISON: None. TECHNIQUE: Grayscale, color and Doppler ultrasound of the deep veins of the left upper extremity were performed. Today's examination is limited secondary to overlying bandages and orbits. FINDINGS: The left internal jugular and axillary veins demonstrate normal color and spectral Doppler flow suggesting patency. The left subclavian vein was not clearly visualized due to overlying bandages. The left brachial and basilic veins are easily compressible and demonstrate normal color Doppler flow suggesting patency. Visualized portions of the cephalic vein is easily compressible suggesting patency. Radial and ulnar veins are not clearly visualized. US/US venous duplex UE LT IMPRESSION: No thrombus identified within visualized veins of the left upper extremity, however, the left subclavian vein was not clearly visualized due to overlying bandages.
--- NOTE | ~2020-12-13 | XR_ITS ---
EXAMINATION: XR CHEST CLINICAL INFORMATION: Question pneumonia COMPARISON: January 22, 2021 and studies dating back to August 14, 2019 TECHNIQUE: AP portable view of the chest was obtained. FINDINGS: Tracheostomy tube is seen in place. No pneumothorax is seen. Hazy density seen lung bases bilaterally consistent with pleural effusions with increase in size of effusion on the right compared to previous study. Heart normal size. No evidence of pulmonary edema. There is bibasilar parenchymal disease without significant change which may be related to atelectasis or pneumonitis. XR/XR chest 1V IMPRESSION: Enlarging right pleural effusion. Bilateral pleural effusions with basilar disease without significant change.
--- NOTE | ~2020-12-13 | NM_ITS ---
EXAMINATION: MA BILIARY TRACT IMAGING STUDY CLINICAL INFORMATION: Right upper quadrant pain. COMPARISON: CT dated 01/14/2021. TECHNIQUE: Serial gamma scintillation camera images were obtained over the abdomen for a total observation period of 120 minutes following the intravenous administration of 4.3 mCi Tc-99m Mebrofenin. FINDINGS: There is good concentration of activity in the liver by 5 minutes post injection. Biliary activity is visualized by 5 minutes. Small bowel is well visualized by 7 minutes. Gallbladder nonvisualized during the course of the examination. There is trace radiotracer uptake within the duodenal ampulla representing some retrograde passage of contrast at various once during the examination. NM/MA hepatobiliary wo pharm IMPRESSION: Nonvisualization of the gallbladder. While this can indicate obstruction of the cystic duct, false positives can occur in the setting of prolonged fasting (greater than 24 hours), severe illness, and rapid [id number] transit (as is seen in this case)
--- NOTE | ~2020-12-13 | CT_ITS ---
EXAMINATION: CT ABDOMEN AND PELVIS WITH CONTRAST CLINICAL INFORMATION: Acute LFT abnormalities COMPARISON: Previous CT of the abdomen and pelvis most recent 01/14/2021, HIDA scan 01/22/2021 and abdominal ultrasound 01/21/2021 TECHNIQUE: Multidetector volumetric images were obtained from the superior aspect of the liver through the pubic symphysis following administration 85 mL of Omnipaque 350 intravenous contrast. Sagittal and coronal reformatted images were obtained on the technologist's workstation. Oral contrast: Yes This CT examination was performed using dose optimization techniques as appropriate, variously including the following: *Automated exposure control *Adjustment of mA and/or kV according to patient size (this includes techniques or standardized protocols for targeted exams where dose is matched to indication/reason for exam; i.e. extremities or head) *Use of iterative reconstruction technique DLP: 1230 mGy-cm FINDINGS: LUNG BASES: There are moderate-sized bilateral pleural effusions and bilateral lower lobe atelectasis.. LIVER, GALLBLADDER, AND BILIARY TREE: The contour of the liver is slightly irregular questionable for mild cirrhosis. No focal liver lesion is seen. There is no biliary duct dilatation. The gallbladder is upper normal in size. There is gallbladder wall thickening, probable gallbladder wall edema and pericholecystic fluid. No gallstones are seen. PANCREAS: Unremarkable. SPLEEN: Unremarkable. ADRENAL GLANDS: Unremarkable. KIDNEYS AND URETERS: The kidneys are normal in size, shape, and attenuation. No hydronephrosis, hydroureter, or calculi seen. No perinephric stranding. BLADDER: Unremarkable. GASTROINTESTINAL TRACT: There is diverticulosis of the colon. Small and large bowel is otherwise unremarkable. There is a small to moderate amount of ascites seen in the abdomen and pelvis. There is a G-tube in the stomach. The stomach is dilated and fluid-filled. As a small amount of air in the anterior abdominal wall, question related to G-tube insertion. There is no free air. ABDOMINAL WALL: Small umbilical hernia containing fat. Small amount of air in the upper abdominal wall questionable related to G-tube. LYMPH NODES: Normal. VASCULAR: There is evidence of atherosclerotic disease. No aneurysm is seen PELVIC VISCERA: Unremarkable. OSSEOUS STRUCTURES: There are left anterior rib fractures. There are postsurgical changes to the lower lumbar spine with interpedicular screws at L4 and S1 and posterior rods and disc interspace at L4-L5. CT/CT abdomen pelvis w con IMPRESSION: Abnormal appearing gallbladder with gallbladder wall thickening, edema and pericholecystic fluid. No gallstones are seen. Acalculous cholecystitis should be considered. Small to moderate amount of ascites. Diverticulosis of the colon. G-tube in the stomach. The stomach is distended and filled with fluid. Small amount of air in the upper anterior abdominal wall, question related to G-tube. This moderate bilateral pleural effusions and lower lobe atelectasis/consolidation. Multiple left rib fractures.
--- NOTE | ~2020-12-13 | XR_ITS ---
EXAMINATION: XR CHEST CLINICAL INFORMATION: SOB COMPARISON: Chest 01/02/2021 TECHNIQUE: Frontal view of the chest was obtained. FINDINGS: The lungs are hypoexpanded with patchy bilateral opacities likely infiltrate slightly more prominent in the left upper lobe. There is a right chest tube in the lower hemithorax. No visible pneumothorax seen. Position of endotracheal tube is 1.1 cm above the yunier. Endotracheal tube tip is below diaphragm in the stomach. The left central catheter with its tip in brachiocephalic vein. No gross bony abnormality seen. XR/XR chest 1V IMPRESSION: There are bilateral patchy opacities with the left upper lobe opacity appearing slightly more prominent previous study. The lungs are hypoexpanded. Support lines and catheters are stable. No change in the right chest tube. No visible pneumothorax. Right pleural effusion has improved.
--- NOTE | ~2020-12-13 | XR_ITS ---
EXAMINATION: XR CHEST CLINICAL INFORMATION: Chest tube placement COMPARISON: Previous chest CT 12/27/2020 and chest x-ray 12/30/2020 TECHNIQUE: 2 portable views of the right lower chest FINDINGS: There is a new tube projects over the right lung base. There is increased attenuation of the right lung base probably representing a combination of right pleural fluid and atelectasis/consolidation of the right lower lung. No pneumothorax is seen. There are degenerative changes of the spine. XR/XR chest 1V IMPRESSION: New tube projects over right lung base. No pneumothorax seen.
--- NOTE | ~2020-12-13 | XR_ITS ---
EXAMINATION: XR CHEST CLINICAL INFORMATION: Post bronchoscopy COMPARISON: Previous chest x-ray and chest CTA from yesterday TECHNIQUE: Frontal view of the chest was obtained. FINDINGS: The cardiac and mediastinal contours are stable. There is an endotracheal tube with tip 7 cm above the yunier. There is a left subclavian line with tip projecting over the feet. There is a nasogastric tube projects over the stomach. The tip is not well seen. The cardiac and mediastinal contours are stable. There may be pulmonary venous redistribution. This may be artifactual due to apical lordotic film technique. There is consolidation at the lung bases, right greater than left. There is a right pleural effusion. There is no pneumothorax or pneumomediastinum. There are degenerative changes of the spine. XR/XR chest 1V IMPRESSION: No pneumothorax or pneumomediastinum post bronchoscopy. Question new pulmonary venous redistribution versus changes related to apical lordotic film technique. Otherwise chest x-rays similar to yesterday's exams exams.
--- NOTE | ~2020-12-13 | XR_ITS ---
EXAMINATION: XR CHEST CLINICAL INFORMATION: NG tube placement COMPARISON: Chest x-ray January 08, 2021 TECHNIQUE: Frontal view of the chest was obtained. FINDINGS: Interval placement of enteric tube which terminates below the level of the diaphragm, beyond the parameters of this chest x-ray. Stable positioning of tracheostomy tube and left-sided vascular catheter. Stable cardiac enlargement. There is been significant interval improvement in aeration of the left hemithorax. Scattered patchy airspace opacities persist. XR/XR chest 1V IMPRESSION: -Properly positioned enteric tube. -Significant interval improvement in aeration of the left hemithorax.
--- NOTE | ~2020-12-13 | US_ITS ---
EXAMINATION: ULTRASOUND-GUIDED CHOLECYSTOSTOMY TUBE CLINICAL INFORMATION: Acalculous cholecystitis. COMPARISON: Previous CT from earlier the same day, abdominal ultrasound 01/21/2021 and HIDA scan 01/22/2021 TECHNIQUE: Procedure risks and benefits including bleeding and infection were discussed with the patient and her daughter by telephone and informed consent was obtained. The right upper quadrant was prepped and draped in the usual sterile fashion. The skin and soft tissues were anesthetized with 1% plain. Using ultrasound guidance and a 22 gauge Chiba needle, access to the gallbladder was obtained. Over an 018 wire, a 6.3 Estonian drainage catheter was positioned in the gallbladder. Approximately 120 mL of cloudy bilious fluid was removed. Specimen was sent for Gram stain and culture. The exam was performed portably in the ICU. FINDINGS: Initial images demonstrate a distended gallbladder. Later images demonstrate decompression of the gallbladder. US/US drain cindy retro perc IMPRESSION: Ultrasound-guided cholecystostomy tube placement.
--- NOTE | ~2020-12-13 | XR_ITS ---
EXAMINATION: XR CHEST CLINICAL INFORMATION: Chest tube COMPARISON: 01/01/2021 TECHNIQUE: Frontal view of the chest was obtained. FINDINGS: The endotracheal tube terminates approximately 4 cm above the yunier. Enteric tube extends into the stomach. Pigtail catheter overlies the lower right hemithorax. Left subclavian central venous catheter terminates over the mid SVC. Cardiac leads overlie the chest. The lungs are well expanded. Small right pleural effusion. Patchy bilateral opacities are again noted, decreased in prominence from prior. No pneumothorax. The cardiomediastinal silhouette remains prominent, with a calcified aorta. XR/XR chest 1V IMPRESSION: Persistent small right pleural effusion. Improving patchy bilateral airspace opacities. Endotracheal tube terminates 4 cm above the yunier.
--- NOTE | ~2020-12-13 | XR_ITS ---
EXAMINATION: XR CHEST CLINICAL INFORMATION: Central line placement COMPARISON: December 13, 2020 TECHNIQUE: AP portable view of the chest was obtained. FINDINGS: Endotracheal tube tip lies approximately 6 cm above the yunier. Enteric tube is seen traversing to the left hemidiaphragm. A left subclavian central venous catheter is seen with tip region of the junctions of the superior vena cava and left innominate vein. No pneumothorax is seen. There is some atelectatic change seen in the left lung base. Hazy density seen overlying the lower right chest consistent with pleural effusion and airspace disease. Heart upper limits of normal in size. No pulmonary edema. XR/XR chest 1V IMPRESSION: Support tubes and catheters in place as described. No pneumothorax. Enlarging right pleural effusion and probable underlying airspace disease.
--- NOTE | ~2020-12-13 | XR_ITS ---
EXAMINATION: XR CHEST CLINICAL INFORMATION: Fever COMPARISON: 12/28/2020 TECHNIQUE: Frontal view of the chest was obtained. FINDINGS: Left subclavian central venous catheter terminates over the mid SVC. Cardiac leads overlie the chest. The lungs are well expanded. Increased moderate to large right pleural effusion with opacification of the remainder of the lung. Patchy opacities of the left mid to lower lung are increased. No pneumothorax. The cardiomediastinal silhouette is unchanged. XR/XR chest 1V IMPRESSION: Increased moderate to large right pleural effusion with diffuse airspace opacity. Increased patchy left lung opacities. This could represent multifocal pneumonia or edema.
--- NOTE | ~2020-12-13 | XR_ITS ---
EXAMINATION: XR CHEST CLINICAL INFORMATION: Right hemothorax status post chest tube placement COMPARISON: 01/07/2021 TECHNIQUE: Frontal view of the chest was obtained. FINDINGS: Endotracheal tube tip lies 4 cm above the yunier. Enteric tube courses into the stomach. Redemonstrated pigtail catheter overlying the mid right chest. Redemonstrated left subclavian central line with tip in the region of the upper SVC. Lung volumes are symmetric. Persistent opacification of the mid to lower left lung with pleural effusion, likely slightly worsened at the base with increased silhouetting of the left heart border. No new right lung consolidation or significant pleural effusion. No appreciable pneumothorax. Cardiac mediastinal silhouette appears grossly stable. No acute osseous findings are seen. XR/XR chest 1V IMPRESSION: Mid to basilar left lung opacification with pleural effusion, overall appearing slightly worsened from prior. No new findings of the right lung.
--- NOTE | ~2020-12-13 | XR_ITS ---
EXAMINATION: XR CHEST CLINICAL INFORMATION: Chest tube placement COMPARISON: Chest done earlier today at 10:00 AM TECHNIQUE: Frontal view of the chest was obtained. FINDINGS: The guidewire has been removed and replaced with a large part chest catheter with its tip just below the hilum. There is a large effusion present. In right lung is collapsed. There is patchy opacities in left lung base likely infiltrate or/and atelectasis. The heart size is enlarged. No gross bony abnormality seen. There is a left central catheter with its tip in the distal brachiocephalic vein. XR/XR chest 1V IMPRESSION: Large bore chest catheter tip lies at the level just below the hilum. There is large right pleural effusion seen. No change in left central venous catheter, mild cardiomegaly and patchy opacity in the left upper and midlung regions.
--- NOTE | ~2020-12-13 | US_ITS ---
EXAMINATION: ULTRASOUND ABDOMEN LIMITED. KUB. CLINICAL INFORMATION: Right upper quadrant pain COMPARISON: CT abdomen and pelvis 01/14/2021 TECHNIQUE: Limited ultrasound imaging of right upper quadrant was performed. KUB one view FINDINGS: Limited abdomen ultrasound: The pancreas obscured by overlying gas. The liver is diffusely echogenic with a lobulated contour. No focal lesion or intrahepatic ductal dilatation seen. There is perihepatic free fluid seen. The gallbladder is distended with no echogenic gallstones or wall thickening. Sludge was visualized on recent CT exam. The common bile duct measures 0.3 cm. There is normal right kidney cortical thickness. No congenic stones, cyst or hydronephrosis seen. Right kidney measures 9.9 cm in length. US/US abdomen limited IMPRESSION: Mild hepatic steatosis. No focal lesion seen. Gallbladder is is distended but otherwise unremarkable
--- NOTE | ~2020-12-13 | XR_ITS ---
EXAMINATION: XR CHEST CLINICAL INFORMATION: Weakness, shortness of breath COMPARISON: None TECHNIQUE: 2 views of the chest were obtained. FINDINGS: The lungs are hypoexpanded with bibasilar patchy opacity, question infiltrate/atelectasis. Suspect small bilateral effusions. The upper lungs are clear. The heart size is enlarged. Pulmonary vascularity is normal. There is moderate spondylosis in dorsal spine. XR/XR chest 2V IMPRESSION: Bibasilar infiltrate/atelectasis. Suspect bilateral small pleural effusions.
--- NOTE | ~2020-12-13 | XR_ITS ---
EXAMINATION: XR CHEST CLINICAL INFORMATION: Hemothorax COMPARISON: CT chest 12/30/2020, 1:55 PM. Chest x-ray 12/30/2020 11:08 AM TECHNIQUE: Frontal view of the chest was obtained. 7:45 PM FINDINGS: Right-sided chest tube in place. The volume of the right pleural fluid has diminished since prior study survey. There is still density at both lung bases due to the pleural fluid. There is also likely underlying atelectasis/consolidation as was seen on the CT performed earlier today. No pneumothorax. Endotracheal tube 4 cm above yunier. Gastric tube catheter in stomach. XR/XR chest 1V IMPRESSION: 1. Decreased volume of the fluid in the right hemithorax since prior exam today. There is persistent pleural fluid collections as well as bilateral airspace disease. 2. Endotracheal tube 4 sinus above yunier. 3. Gastric tube in stomach.
--- NOTE | ~2020-12-13 | XR_ITS ---
EXAMINATION: XR CHEST CLINICAL INFORMATION: Right pleural effusion with chest tube insertion. COMPARISON: Chest 01/03/2021 TECHNIQUE: Frontal view of the chest was obtained. FINDINGS: The lungs are hypoexpanded patchy opacity seen in both lungs slightly greater on the left hemithorax likely infiltrate/atelectasis. There is a right chest tube positioned in the right lower hemithorax with small residual pleural effusion noted. There is no pneumothorax. The heart size and pulmonary vascularity is normal. There is a left central catheter with its tip at the brachiocephalic venous junction. The endotracheal tube and enteric tube have been removed. XR/XR chest 1V IMPRESSION: Bilateral facet disease seen throughout the left lung and right midlung likely infiltrates. No change in left central catheter venous catheter and right chest tube. Enteric tube and endotracheal tube have been removed. Mild haziness right lung base likely residual effusion. No change from 01/03/2021
--- NOTE | ~2020-12-13 | CT_ITS ---
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 History of hemothorax, respiratory arrest and CPR noted on the prior chest CT from 12/30/2020 COMPARISON: 12/30/2020, 12/27/2020, 11/19/2020, CT abdomen pelvis 06/15/2019, PET/CT 12/03/2008 TECHNIQUE: Multidetector volumetric CT imaging of the chest was done. Axial MIP volume rendering provided. Sagittal and coronal reformatted images were obtained. This CT examination was performed using dose optimization techniques as appropriate, variously including the following: *Automated exposure control *Adjustment of mA and/or kV according to patient size (this includes techniques or standardized protocols for targeted exams where dose is matched to indication/reason for exam; i.e. extremities or head) *Use of iterative reconstruction technique DLP: 628 mGy-cm FINDINGS: [employer]: No significant additional findings. LUNGS: Respiratory motion limits sensitivity for subtle pulmonary nodules. Right pigtail chest tube. Increased aeration of the right lung after pleural fluid evacuation. Similar distribution but increased density and extensiveness of the patchy bilateral groundglass opacities with areas of interstitial thickening giving a crazy pealing appearance. Decreased atelectasis of the right lung adjacent to the pleural fluid. Similar-appearing left lower lobe atelectasis adjacent to the pleural fluid. The pulmonary nodules seen on the November 2020 study are seen on the current study but are not well seen due to respiratory motion and superimposed ground glass opacities. The endotracheal tube tip is approximately 3 cm above the yunier. Central airways are patent. MEDIASTINUM: Heart size is normal. No pericardial effusion. No evidence of mediastinal lymphadenopathy. Limited evaluation for hilar adenopathy without IV contrast. No bulky hilar lymph nodes are appreciated. Coronary artery and thoracic aortic calcifications. Left subclavian approach central venous catheter with tip near the confluence of the left innominate vein and SVC. PLEURA: Significantly reduced right pleural effusion. Persistent small to moderate left pleural effusion measuring simple fluid density. AXILLA: No axillary lymphadenopathy. UPPER ABDOMEN: Enteric tube tip within the stomach. Dense contrast material within the partially imaged colon. Diverticulosis. Trace perihepatic abdominal ascites and trace perisplenic abdominal ascites. OSSEOUS STRUCTURES: Minimally displaced acute fractures of the left anterolateral third through seventh ribs. CT/CT chest wo con IMPRESSION: 1. Increased nonspecific groundglass opacities within the lungs bilaterally. Respiratory motion limits sensitivity. 2. Significantly decreased right pleural effusion and decreased right lung atelectasis. 3. Endotracheal tube tip 3 cm above the yunier. Enteric tube tip in the stomach. Left subclavian approach central venous catheter with tip near the confluence of the innominate vein and SVC.
--- NOTE | ~2020-12-13 | XR_ITS ---
EXAMINATION: XR CHEST CLINICAL INFORMATION: Hemothorax status post pigtail chest tube placement COMPARISON: 12/31/2020 TECHNIQUE: Frontal view of the chest was obtained. FINDINGS: Endotracheal tube terminates 3 cm above the yunier. Enteric tube extends into the stomach. Left subclavian central venous catheter terminates over the mid SVC. Right-sided pigtail catheter overlies the mid hemithorax. Cardiac leads overlie the chest. Lung volumes are low. Increased hazy bibasilar opacities with small pleural effusions. No pneumothorax. The cardiomediastinal silhouette is within normal limits. XR/XR chest 1V IMPRESSION: Increased hazy bibasilar opacities suggestive of small pleural effusions with associated atelectasis/pneumonia. Endotracheal tube terminating 3 cm above the yunier.
--- NOTE | ~2020-12-13 | XR_ITS ---
EXAMINATION: XR CHEST CLINICAL INFORMATION: Right hemothorax, status post pigtail placement COMPARISON: 01/05/2021 TECHNIQUE: Frontal view of the chest was obtained. FINDINGS: Endotracheal tube tip is not well seen, suspected to lie approximately 4-5 cm above the yunier. Enteric tube courses into the stomach. Right-sided pigtail catheter redemonstrated. Left subclavian line tip lies in the region of the upper SVC. Persistent retrocardiac opacity and small left pleural effusion, similar to prior. No significant right effusion is seen. No appreciable pneumothorax. Redemonstrated central vascular prominence and patchy perihilar opacities. The cardiomediastinal silhouette is stable. No acute osseous findings are seen. XR/XR chest 1V IMPRESSION: No significant change since 01/05/2021. Persistent retrocardiac opacity and small left pleural effusion. No significant right pleural effusion with pigtail catheter present. Central vascular prominence and perihilar patchy opacities may be secondary to edema.
--- NOTE | ~2020-12-13 | XR_ITS ---
EXAMINATION: XR CHEST CLINICAL INFORMATION: Status post ETT placement. COMPARISON: Chest x-ray 01/05/2021 at 6:05 AM TECHNIQUE: Frontal view of the chest was obtained. FINDINGS: The lungs are hypoexpanded with bilateral patchy opacity. There is a new endotracheal tube with its tip 5.7 cm above the yunier. New enteric tube tip is below the diaphragm. Heart size and the great vessels are normal caliber. There is a right chest tube in mid to lower hemithorax and a left central venous catheter, stable. No gross bony abnormality seen. XR/XR chest 1V IMPRESSION: Persistent bilateral airspace opacities, stable. Right chest tube is stable. Left central venous catheter is in stable position. New endotracheal tube and enteric tube in stable position.
--- NOTE | ~2020-12-13 | XR_ITS ---
EXAMINATION: XR CHEST CLINICAL INFORMATION: Right hemopneumothorax, post chest tube placement. COMPARISON: CT chest noncontrast 12/30/2020, portable chest radiographs 12/30/2020 x 2 exams. TECHNIQUE: Portable upright AP view of the chest is performed at 0910 hours. FINDINGS: Endotracheal tube is 3.8 cm above yunier. There is nasogastric tube seen in the abdomen and a left subclavian central line with tip at confluence of brachiocephalic vein and superior vena cava. Right chest tube again noted. There is no pneumothorax or pneumomediastinum. There are bibasilar airspace opacities and effusions, greater on right, and decreased from prior chest radiograph 12/30/2020 at 1955 hours. XR/XR chest 1V IMPRESSION: 1. ET tube 3.8 cm above yunier. NG tube in abdomen. 2. Left subclavian central venous line with tip at confluence right radiocephalic density. Vena cava. Right chest tube. No pneumothorax. 3. Bibasilar airspace opacities and effusions decreased from prior exam 12/30/2020 at 1955 hours.
--- NOTE | ~2020-12-13 | XR_ITS ---
EXAMINATION: XR CHEST CLINICAL INFORMATION: Right hemothorax status post chest tube placement COMPARISON: 01/06/2021 TECHNIQUE: Frontal view of the chest was obtained. FINDINGS: Endotracheal tube tip lies approximately 4.6 cm above the yunier. Enteric tube courses below the diaphragm. Left subclavian central line tip lies in the region of the upper SVC. Right pigtail catheter overlies the mid right hemithorax. Lung volumes are symmetric. Persistent small left pleural effusion with adjacent basilar opacity and haziness, similar to prior. No significant right pleural effusion. Central vascular congestion appears mildly decreased from prior. No appreciable pneumothorax. The cardiomediastinal silhouette is stable. No acute osseous findings are seen. XR/XR chest 1V IMPRESSION: Persistent small left pleural effusion and adjacent parenchymal opacity. Decreased central vascular congestion. No significant right pleural effusion.
--- NOTE | ~2020-12-13 | XR_ITS ---
EXAMINATION: XR CHEST CLINICAL INFORMATION: Pneumonia follow-up COMPARISON: 01/28/2021 TECHNIQUE: Portable chest 7:14 AM view of the chest was obtained. FINDINGS: The extent of changes of pulmonary edema with bilateral moderate pleural effusions appear slightly progressive. No focal airspace disease. Underlying infiltrate at the bases not excluded. Tracheostomy tube remains in place. No pneumothorax or ectopic air. XR/XR chest 1V IMPRESSION: Progressive pulmonary edema with increasing moderate size pleural effusions.
--- NOTE | ~2020-12-13 | XR_ITS ---
EXAMINATION: XR CHEST CLINICAL INFORMATION: Dyspnea. COMPARISON: None TECHNIQUE: Frontal view of the chest was obtained. FINDINGS: There is bilateral lower lobe haziness from pleural effusion and underlying infiltrate/atelectasis. The upper lungs are clear. The heart size is borderline enlarged. Pulmonary vascularity is prominent but no rivera congestion suspected. There is a tracheostomy tube in place. Previously visualized left central catheter has been removed. There is moderate spondylosis dorsal spine. XR/XR chest 1V IMPRESSION: Bilateral small pleural effusions with underlying infiltrate/atelectasis. No major change from 01/18/2021
--- NOTE | ~2020-12-13 | CT_ITS ---
EXAMINATION: CT CHEST, ABDOMEN AND PELVIS WITHOUT IV CONTRAST CLINICAL INFORMATION: Hemothorax. History of a recent respiratory arrest and CPR. COMPARISON: Previous CT of the chest 12/27/2020, previous abdominal ultrasound August [address] of the abdomen and pelvis June 2019 TECHNIQUE: Axial images through the chest, abdomen and pelvis without oral or IV contrast. Sagittal and coronal reconstructions on the technologist workstation were performed. Patient dose 289+99 5 mg/cm. This CT examination was performed using dose optimization techniques as appropriate, variously including the following: *Automated exposure control *Adjustment of mA and/or kV according to patient size (this includes techniques or standardized protocols for targeted exams where dose is matched to indication/reason for exam; i.e. extremities or head) *Use of iterative reconstruction technique FINDINGS: Chest: There is an endotracheal tube with tip 3.2 cm above the yunier. There is a nasogastric tube projects in the proximal stomach. There is a left jugular line with tip projecting over the distal left innominate vein. There is a new right pigtail chest tube. The chest tube appears to be tracking along the right minor fissure. There is a a small new right pneumothorax adjacent to the chest tube anteriorly and inferiorly. There is a large right pleural effusion that does not appear appreciably changed from previous chest CT scan 12/27/2020 but is decreased from chest x-ray from earlier the same day.. There is a atelectasis and consolidation of the bilateral lower lobes. This is similar to previous chest CT scan. There are new patchy areas of groundglass attenuation seen in the bilateral upper lobes. There is new atelectasis seen in the right middle lobe. The heart does not appear enlarged. There is no pericardial effusion. There is coronary artery calcification. There are small mediastinal lymph nodes. There is a moderate to large right and small left pleural effusion. There is a new small right pneumothorax adjacent to the chest tube. There is a small left pleural effusion. There is no left pneumothorax. There are multiple left anterior rib fractures involving the left second to seventh anterior ribs. No right rib fracture is seen. There is some soft tissue stranding adjacent to the left anterior lateral chest wall adjacent to the rib fractures probably representing a hematoma. There is stranding of the fat overlying the sternum. No sternal fracture is seen. There are degenerative changes of the spine. Abdomen and pelvis: There is a small amount of ascites adjacent to the liver. The liver and gallbladder are unremarkable. The spleen is unremarkable. The pancreas is unremarkable. The adrenal glands are unremarkable. There is a small nonobstructing stone in the lower pole of the right kidney. The kidneys are otherwise unremarkable. There is a Jones catheter in the bladder. There is air in the bladder likely related to Jones catheter. Evaluation of the bowel is limited due to retained oral contrast. There is diverticulosis of the colon. No free air is seen. There is evidence of atherosclerotic disease. No adenopathy is seen. No hernia is seen. There is subcutaneous edema suggestive of mild anasarca. Review at bone windows demonstrates postsurgical changes to the lower lumbar sacral spine from L3 to S1. CT/CT abdomen pelvis wo con IMPRESSION: Chest: Satisfactory position of support line and tubes. New right chest tube appears to be in the right minor fissure. Moderate to large right pleural effusion. New small anterior right pneumothorax adjacent to the chest tube. Small left pleural effusion. No left pneumonia thorax. Bilateral lower lobe atelectasis/consolidation similar to previous exam. Increasing groundglass attenuation in the bilateral upper lobes. Multiple left anterior rib fractures. Increased high attenuation soft tissue in the left lateral chest wall questionable for hematoma. Abdomen and pelvis: Small amount of ascites surrounding the liver. Diverticulosis of the colon. Small nonobstructing right renal stone.
--- NOTE | ~2020-12-13 | CT_ITS ---
EXAMINATION: CT ABDOMEN AND PELVIS WITHOUT CONTRAST CLINICAL INFORMATION: Red blood in the stomach peg site, question perf/peritoneal bleed COMPARISON: 12/30/2020 TECHNIQUE: Multidetector volumetric imaging was performed from the superior aspect of the liver through the pubic symphysis. Sagittal and coronal reformatted images were obtained on the technologist's workstation. This CT examination was performed using dose optimization techniques as appropriate, variously including the following: *Automated exposure control *Adjustment of mA and/or kV according to patient size (this includes techniques or standardized protocols for targeted exams where dose is matched to indication/reason for exam; i.e. extremities or head) *Use of iterative reconstruction technique DLP: 1297 mGy-cm FINDINGS: LUNG BASES: Partially visualized small pleural effusions with adjacent basilar atelectasis. LIVER, GALLBLADDER, AND BILIARY TREE: The liver has a somewhat nodular contour. No focal hepatic lesion or biliary ductal dilatation identified. Hyperdensity in the gallbladder may represent stones or sludge. PANCREAS: Unremarkable. SPLEEN: Unremarkable. ADRENAL GLANDS: Unremarkable. KIDNEYS AND URETERS: Nonspecific bilateral perinephric stranding noted. No hydronephrosis bilaterally. Tiny right lower pole renal calculus. BLADDER: Decompressed with a Jones catheter. GASTROINTESTINAL TRACT: Percutaneous gastrostomy tube is present terminating in the stomach. There is a small to moderate volume of pneumoperitoneum which may be secondary to recent PEG tube placement. There is mild to moderate distention of the stomach with semisolid material. No evidence of bowel obstruction. There is colonic diverticulosis without diverticulitis. No significant bowel wall thickening is seen. ABDOMINAL WALL: No significant hernia is appreciated. LYMPH NODES: Normal. VASCULAR: There is atherosclerotic calcification along the aorta and iliac arteries. PELVIC VISCERA: Patient is status post hysterectomy. Presacral stranding is noted. OSSEOUS STRUCTURES: Partially visualized anterolateral left fifth, sixth, and seventh rib fractures. Posterior fusion hardware is present in the spine at L4 and S1. Disc spacer is present at L4-L5. CT/CT abdomen pelvis wo con IMPRESSION: 1. Percutaneous gastrostomy tube terminates in the stomach. Small to moderate volume of pneumoperitoneum in keeping with history of recent tube placement. No intraperitoneal hematoma identified. 2. Partially visualized small pleural effusions with adjacent basilar atelectasis. 3. Hyperdensity in the gallbladder suggesting gallstones or sludge. 4. Partially visualized anterolateral left fifth, sixth, and seventh rib fractures. This was discussed with VALERY Arreola on 01/14/2021 3:25 AM.
--- NOTE | ~2020-12-13 | FL_ITS ---
EXAMINATION: FL BARIUM SWALLOW CLINICAL INFORMATION: Dysphagia. COMPARISON: None TECHNIQUE: Barium swallow examination is performed using fluoroscopic evaluation in addition to multiple fluoroscopic spot views. The patient is imaged both upright and prone and using both thick and thin sulfate along with effervescent granules. Fluoroscopy time: 3.6 minutes DAP: 32.8 Gycm2 Images: 39 FINDINGS: Following oral administration of thick barium and effervescent granules there is normal propagation bolus from the oral cavity through the pharynx, esophagus into stomach without any evidence of obstruction or narrowing. On oral administration of barium tablet there is moderate obstruction of tablet at the cervical esophagus. After administration of several cups of water and thick barium the barium tablet transited very slowly through the mid esophagus to the GE junction. The GE junction was widely patent. No intraluminal filling defects seen in the thoracic esophagus. FL/FL barium swallow IMPRESSION: Obstruction of barium tablet in the cervical esophagus with slow passage through the thoracic esophagus. The GE junction was widely patent. There is no intraluminal filling defect or stricture visualized.
--- NOTE | ~2020-12-13 | XR_ITS ---
EXAMINATION: XR CHEST CLINICAL INFORMATION: Hypoxia. COMPARISON: 01/18/2021 at 5:52 AM. TECHNIQUE: Frontal view of the chest was obtained. FINDINGS: There is interval complete opacification of left hemithorax. This could be secondary to pneumonia and/or pleural effusion. Patchy opacities seen in the right midlung and right lower lobe. Heart size is normal. Pulmonary vascularity is normal. Tracheostomy tube is replacing the endotracheal tube and is in satisfactory position. The enteric tube has been removed. There is a left central venous catheters tip at the brachiocephalic venous junction. Heart size is enlarged. XR/XR chest 1V IMPRESSION: Interval complete opacification of left lung likely from pleural effusion and underlying infiltrate/atelectasis. The endotracheal tube has been replaced by a tracheostomy tube in satisfactory position. The enteric tube has been removed. No change in the left central venous catheter. There is minimal opacification of right midlung and right lower lobe likely infiltrate or atelectasis.
--- NOTE | ~2020-12-13 | XR_ITS ---
EXAMINATION: XR CHEST CLINICAL INFORMATION: Tracheostomy COMPARISON: January 09, 2021 TECHNIQUE: AP portable view of the chest was obtained. FINDINGS: Bilateral basilar hazy density is present consistent with bilateral pleural effusions. There is bibasilar atelectasis seen as well as more confluent airspace disease at the left base which may be related to atelectasis or pneumonitis. There has been improvement in patchy disease within the right upper lobe. There is left perihilar interstitial prominence which may be related to some improvement in edema of cardiogenic or noncardiogenic etiology. Heart normal size. Tracheostomy tube in place. Enteric tube has been removed since previous study. Left upper extremity PICC line seen with tip at the junctions of the left innominate vein and superior vena cava. XR/XR chest 1V IMPRESSION: Probable bilateral pleural effusions. Bibasilar atelectasis with more confluent disease at the left base. There appears to be some mild improvement compared to previous study of January 09, 2021.
--- NOTE | ~2020-12-13 | US_ITS ---
EXAMINATION: US VENOUS WITH DOPPLER UPPER EXTREMITY, LEFT CLINICAL INFORMATION: Left upper extremity swelling. COMPARISON: Left upper extremity Doppler venous ultrasound of 12/28/2020. TECHNIQUE: Ultrasound of the upper extremity is performed using compression sonography and color and pulse Doppler flow with assessment of augmentation of flow. There is also imaging and Doppler assessment of the jugular and subclavian veins. Spectral analysis with color-flow imaging is performed. FINDINGS: Left upper extremity subcutaneous edema is noted. Left arm evaluation for deep venous thrombosis is technically difficult due to presence of overlying bandages and body habitus. The internal jugular vein demonstrates normal color flow. Subclavian vein demonstrates normal color flow. The cephalic and basilic veins demonstrate normal color flow. The radial and ulnar veins could not be seen. A catheter is noted in the left subclavian vein. The axillary vein demonstrates normal color flow and is compressible. One of the paired brachial veins demonstrates normal color flow and is compressible. A visualized segment of the 2nd paired brachial vein is attenuated demonstrating internal echogenic material and is not compressible. No definite flow is noted on the color Doppler in this brachial vein. US/US venous duplex UE LT IMPRESSION: Findings concerning for thrombosis in one of the left brachial veins. Remainder of the visualized left upper extremity deep venous system demonstrates normal color flow. This critical result was discussed with Dr. David Hamilton at 3:58 PM on 01/09/2021 and it was ascertained that the content and urgency of the report was understood at the time of direct communication.
--- NOTE | 2020-12-13 11:12 | ECG_ITS ---
Test Reason : DYSPNEA Blood Pressure : / mmHG Vent. Rate : 057 BPM Atrial Rate : 057 BPM P-R Int : 230 ms QRS Dur : 108 ms QT Int : 420 ms P-R-T Axes : -13 -40 042 degrees QTc Int : 408 ms Sinus bradycardia with 1st degree A-V block Left axis deviation Low voltage QRS Abnormal ECG When compared with ECG of 24-NOV-2020 13:06, NC interval has increased Referred By: Demetrio Pacheco Electronically Signed By:COLE BAR
--- NOTE | 2020-12-13 11:30 | ED.GENADULT ---
HPI - General Adult General Chief complaint: Dizziness Stated complaint: chronic back pain Time Seen by Provider: 12/13/20 11:09 Source: patient and family (Patient's daughter, Itzel) Mode of arrival: EMS Limitations: no limitations History of Present Illness HPI narrative: 75-year-old female who presents emergency department for evaluation of multiple complaints. Patient is complaining of constant nausea times several days with intermittent episodes of vomiting. She states that she is feeling short of breath and having dyspnea on exertion. She has noted swelling around her eyes and in her lower extremities. She also believes that her abdomen is distended. She states that she has had a persistent cough which is nonproductive. She denied chest pain. She states she is feeling very weak and fatigued. According to the daughter, the patient tried to get up to go to the bathroom was unable to walk therefore an ambulance was called and she was brought to emergency department for evaluation. Patient is also complaining of insomnia times weeks. She did see her PCP approximately 5-6 days prior and was given Mucinex for her cough. The patient does have sleep apnea and has not been wearing her CPAP machine at night. In reviewing the patient's record she was hospitalized on 11/26/2020 for atrial fibrillation, hypomagnesemia, congestive heart failure and a low sodium of 119. Related Data Home Medications Medication Instructions Recorded Confirmed lorazepam 1 tab PO BID PRN 11/18/20 12/13/20 omeprazole 1 cap PO BID 11/18/20 12/13/20 simvastatin 1 tab PO DAILY 11/18/20 12/13/20 Previous Rx's Medication Instructions Recorded apixaban 5 mg tablet 5 mg PO BID 30 Days #60 tab 10/13/20 amlodipine 5 mg PO DAILY #30 tab 11/26/20 flecainide 150 mg PO BID #180 tab 11/26/20 magnesium oxide 400 mg PO BIDPC #60 tab 11/26/20 metoprolol tartrate 75 mg PO BID #90 tab 11/26/20 Allergies Allergy/AdvReac Type Severity Reaction Status Date / Time SEASONAL ALLERGIES Allergy Unknown SNEEZING Uncoded 04/23/20 15:17 RUNNY NOSE Review of Systems Review of Systems: Yes all other systems are reviewed and are negative PMFSH Past Medical History [facility] Narrative: Patient has a history of hypertension, congestive heart failure, atrial fibrillation, SIADH, throat cancer with surgery in 2007, she denies tobacco but she is a former smoker, she does drink alcohol several times a week and denies drug use use. 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 Throat cancer Social History Social History Household Members: Family Housing: House Alcohol intake: current Alcohol intake frequency: does not drink Alcohol type: beer and hard liquor Smoking Status: Former smoker Use of substances other than those prescribed or required for medical reasons: No Advance Directives: No Advance Directives Information Provided: No service: No Current occupational status: retired Physical Exam Vital Signs: Vital Signs: Last Vital Signs Temp 97.4 F 12/13/20 15:40 Pulse 70 12/13/20 15:40 Resp 15 12/13/20 15:40 BP 154/75 H 12/13/20 15:40 Pulse Ox 95 12/13/20 15:40 Oxygen Flow Rate 2 12/13/20 10:47 Body Mass Index 38.7 Const: Other: The patient has a gurgling sound when she speaks, according to her daughter, she has a raspy voice secondary to her throat cancer surgery but the gurgling sound is new General: cooperative Orientation/consciousness: oriented to person and oriented to place Limitations: no limitations HENMT: Other: Patient has periorbital and facial edema which is symmetric Head: Yes normocephalic and Yes atraumatic Ears: external ears normal General nose exam: Normal external nose present Face and sinus: Yes other (Facial edema as noted above) Mouth: Normal oral and palatal mucosa present Throat: Yes posterior oropharynx normal Eyes: Conjunctivae: conjunctivae normal Sclerae: sclerae normal Corneas: corneas normal Pupils: Equal, round and reactive pupils present Direct Ophthalmoscopy: normal light reflex Neck: Neck: Yes full ROM, Yes no lymphadenopathy, Yes no meningeal signs, Yes trachea midline and Yes supple Chest: Chest palpation & inspection: normal inspection of the chest and normal palpation of entire chest wall Resp: Effort & Inspection: normal respiratory effort and able to speak in complete sentences Auscultation: rales bilateral in the lower lung carrizales Cardio: Rhythm: regular rhythm and abnormal rhythm irregularly irregular Heart sounds: S1 normal heart sound present, S2 normal heart sound present and no murmurs GI: Inspection: Yes normal to inspection Palpation (GI): Soft to palpation, nontender, no guarding, not rigid and No hepatosplenomegaly present : General: Yes no CVA tenderness Back/Spine/Pelvis: Back: no CVA tenderness Cervical Spine: normal cervical lordosis Thoracic/Lumbar Spine: thoracic and lumbar spine normal to inspection Skin: Lesions: no lesions Rashes: no rashes Wounds: no wounds Neuro: General: oriented to person, oriented to place and no meningeal signs Cranial nerves: Yes CN's II-XII intact bilaterally and Yes Equal, round and reactive pupils present Cognition (Neuro): normal cognition Motor exam (neuro): 5/5 motor strength present throughout Extrem: General: Yes normal to inspection and Yes full ROM Psych: Appearance: well kempt Mental Status: mental status grossly normal Speech and movement: Normal speech and movement present Affect: normal affect Attitude: cooperative Thought process: Normal thought process present Thought content: Normal thought content present Course Course Course Narrative: 75-year-old female who presents emergency department for evaluation of nausea, vomiting, shortness of breath, dyspnea on exertion, cough, fatigue and weakness. Signs revealed an elevated blood pressure of 162/75 otherwise were unremarkable. She did have facial swelling. Lung exam reveals rales at the bases. IM that she may have hyponatremia and CHF. I ordered a CBC, CMP, troponin, magnesium, EtOH, urinalysis, BNP, chest x-ray and EKG. 1403: The patient's laboratory evaluation revealed mild anemia with an H&H of 11.6 and 35.1. The patient's sodium was significantly low at 120. Potassium was elevated at 6.0. The patient's proBNP was elevated 849. Chest x-ray is concerning for bilateral small pleural effusions and bilateral lower lobe infiltrates which I think is consistent with congestive heart failure. Patient's COVID-19 test was negative. I suspect that the patient's low sodium is secondary to fluid overload and secondary to water toxicity since the patient has been increasing the amount of water that she has been drinking. I will discuss admission with the covering hospitalist and further treatment of the hyponatremia with the covering hospitalist as well. 1655: The patient was treated with Lasix 40 mg IV. Repeat BMP revealed sodium 119 and potassium 5.7. I will relay this information to the covering hospitalist. Medical Decision Making Lab Data Result diagrams: 12/13/20 11:47 12/13/20 15:48 Labs: Lab Results 12/13/20 12/13/20 12/13/20 Range/Units 11:47 11:47 11:47 WBC 12.4 H (4.8-10.8) X10*3/uL RBC 3.59 L (4.20-5.50) X10*6/uL Hgb 11.6 L (12.0-16.0) g/dl Hct 35.1 L (37-47) % MCV 97.8 (80-98) fL MCH 32.3 (27.0-33.0) pg MCHC 33.0 (31.0-35.0) g/dl RDW 12.6 (11.0-16.0) % Plt Count 316 (160-400) X10*3/uL MPV 9.3 L (9.4-12.3) fL Immature Gran % (Auto) 0.5 H (0.0-0.4) % Neut % (Auto) 90.8 H (45-73) % Lymph % (Auto) 2.7 L (20-40) % [place] % (Auto) 5.7 (2-11) % Eos % (Auto) 0.2 (0-4) % Baso % (Auto) 0.1 (0-2) % Lymph # (Auto) 0.3 L (1.2-4.9) X10*3/uL [place] # (Auto) 0.7 (0.1-1.2) X10*3/uL Eos # (Auto) 0.0 (0.0-0.4) X10*3/uL Baso # (Auto) 0.0 (0.0-0.2) X10*3/uL Abs Immat Gran (auto) 0.06 H (0.00-0.03) X10*3/uL Absolute Neuts (auto) 11.3 H (2.0-8.3) X10*3/uL Absolute Nucleated RBC 0.000 (0.0-0.012) X10*3/uL Nucleated RBC % (auto) 0.0 (0.0-0.2) /100WBC Smear Tech's Comments VERIFIED PT (10.8-13.0) SEC INR (0.9-1.1) APTT (24.1-38.0) SEC Sodium 120 L* (135-145) mmol/L Potassium 6.0 H* (3.3-5.1) mmol/L Chloride 79 L (96-108) mmol/L Carbon Dioxide 37 H (22-29) mmol/L Anion Gap 10 L (12-20) BUN 21 H (9-16) mg/dL Creatinine 0.66 (0.5-1.4) mg/dL Estim Creat Clear Calc 94.9 Estimated GFR > 60 Random Glucose 133 H (60-115) mg/dL Osmolality (281-305) mosm/kg Calcium 9.3 (8.4-10.2) mg/dL Magnesium (1.6-2.6) mg/dL Total Bilirubin 0.8 (0.0-1.0) mg/dL AST 23 (5-31) U/L ALT 27 (0-31) U/L Alkaline Phosphatase 70 (39-117) U/L Troponin I High Sens (<3.5-17.0) ng/L B-Natriuretic Peptide 849 H (<100) pg/mL Total Protein 6.8 (6.5-8.0) g/dL Albumin 4.0 (3.5-5.0) g/dL Lipase 18 (8-78) U/L Urine Color Urine Appearance Urine pH (5.0-8.0) Ur Specific [place] (1.005-1.025) Urine Protein (NEG-TRACE) MG/DL Urine Glucose (UA) (NEG) MG/DL Urine Ketones (NEG) MG/DL Urine Blood (NEG) Urine Nitrite (NEG) Ur Leukocyte Esterase (NEG) Urine Osmolality (373-1093) mosm/kg Ur Random Sodium mmol/L Ethyl Alcohol mg/dL COVID-19 ([facility]) (Negative) COVID-19 Clin Com 12/13/20 12/13/20 12/13/20 Range/Units 11:47 11:47 11:47 WBC (4.8-10.8) X10*3/uL RBC (4.20-5.50) X10*6/uL Hgb (12.0-16.0) g/dl Hct (37-47) % MCV (80-98) fL MCH (27.0-33.0) pg MCHC (31.0-35.0) g/dl RDW (11.0-16.0) % Plt Count (160-400) X10*3/uL MPV (9.4-12.3) fL Immature Gran % (Auto) (0.0-0.4) % Neut % (Auto) (45-73) % Lymph % (Auto) (20-40) % [place] % (Auto) (2-11) % Eos % (Auto) (0-4) % Baso % (Auto) (0-2) % Lymph # (Auto) (1.2-4.9) X10*3/uL [place] # (Auto) (0.1-1.2) X10*3/uL Eos # (Auto) (0.0-0.4) X10*3/uL Baso # (Auto) (0.0-0.2) X10*3/uL Abs Immat Gran (auto) (0.00-0.03) X10*3/uL Absolute Neuts (auto) (2.0-8.3) X10*3/uL Absolute Nucleated RBC (0.0-0.012) X10*3/uL Nucleated RBC % (auto) (0.0-0.2) /100WBC Smear Tech's Comments PT 24.0 H D (10.8-13.0) SEC INR 2.0 H (0.9-1.1) APTT 34.2 (24.1-38.0) SEC Sodium (135-145) mmol/L Potassium (3.3-5.1) mmol/L Chloride (96-108) mmol/L Carbon Dioxide (22-29) mmol/L Anion Gap (12-20) BUN (9-16) mg/dL Creatinine (0.5-1.4) mg/dL Estim Creat Clear Calc Estimated GFR Random Glucose (60-115) mg/dL Osmolality (281-305) mosm/kg Calcium (8.4-10.2) mg/dL Magnesium (1.6-2.6) mg/dL Total Bilirubin (0.0-1.0) mg/dL AST (5-31) U/L ALT (0-31) U/L Alkaline Phosphatase (39-117) U/L Troponin I High Sens 5.9 (<3.5-17.0) ng/L B-Natriuretic Peptide (<100) pg/mL Total Protein (6.5-8.0) g/dL Albumin (3.5-5.0) g/dL Lipase (8-78) U/L Urine Color Urine Appearance Urine pH (5.0-8.0) Ur Specific [place] (1.005-1.025) Urine Protein (NEG-TRACE) MG/DL Urine Glucose (UA) (NEG) MG/DL Urine Ketones (NEG) MG/DL Urine Blood (NEG) Urine Nitrite (NEG) Ur Leukocyte Esterase (NEG) Urine Osmolality (373-1093) mosm/kg Ur Random Sodium mmol/L Ethyl Alcohol mg/dL COVID-19 ([facility]) Negative (Negative) COVID-19 Clin Com See Note 12/13/20 12/13/20 12/13/20 Range/Units 11:47 11:47 11:47 WBC (4.8-10.8) X10*3/uL RBC (4.20-5.50) X10*6/uL Hgb (12.0-16.0) g/dl Hct (37-47) % MCV (80-98) fL MCH (27.0-33.0) pg MCHC (31.0-35.0) g/dl RDW (11.0-16.0) % Plt Count (160-400) X10*3/uL MPV (9.4-12.3) fL Immature Gran % (Auto) (0.0-0.4) % Neut % (Auto) (45-73) % Lymph % (Auto) (20-40) % [place] % (Auto) (2-11) % Eos % (Auto) (0-4) % Baso % (Auto) (0-2) % Lymph # (Auto) (1.2-4.9) X10*3/uL [place] # (Auto) (0.1-1.2) X10*3/uL Eos # (Auto) (0.0-0.4) X10*3/uL Baso # (Auto) (0.0-0.2) X10*3/uL Abs Immat Gran (auto) (0.00-0.03) X10*3/uL Absolute Neuts (auto) (2.0-8.3) X10*3/uL Absolute Nucleated RBC (0.0-0.012) X10*3/uL Nucleated RBC % (auto) (0.0-0.2) /100WBC Smear Tech's Comments PT (10.8-13.0) SEC INR (0.9-1.1) APTT (24.1-38.0) SEC Sodium (135-145) mmol/L Potassium (3.3-5.1) mmol/L Chloride (96-108) mmol/L Carbon Dioxide (22-29) mmol/L Anion Gap (12-20) BUN (9-16) mg/dL Creatinine (0.5-1.4) mg/dL Estim Creat Clear Calc Estimated GFR Random Glucose (60-115) mg/dL Osmolality 262 L (281-305) mosm/kg Calcium (8.4-10.2) mg/dL Magnesium 2.0 (1.6-2.6) mg/dL Total Bilirubin (0.0-1.0) mg/dL AST (5-31) U/L ALT (0-31) U/L Alkaline Phosphatase (39-117) U/L Troponin I High Sens (<3.5-17.0) ng/L B-Natriuretic Peptide (<100) pg/mL Total Protein (6.5-8.0) g/dL Albumin (3.5-5.0) g/dL Lipase (8-78) U/L Urine Color Urine Appearance Urine pH (5.0-8.0) Ur Specific [place] (1.005-1.025) Urine Protein (NEG-TRACE) MG/DL Urine Glucose (UA) (NEG) MG/DL Urine Ketones (NEG) MG/DL Urine Blood (NEG) Urine Nitrite (NEG) Ur Leukocyte Esterase (NEG) Urine Osmolality (373-1093) mosm/kg Ur Random Sodium mmol/L Ethyl Alcohol < 10 mg/dL COVID-19 ([facility]) (Negative) COVID-19 Clin Com 12/13/20 12/13/20 12/13/20 Range/Units 12:33 12:33 12:33 WBC (4.8-10.8) X10*3/uL RBC (4.20-5.50) X10*6/uL Hgb (12.0-16.0) g/dl Hct (37-47) % MCV (80-98) fL MCH (27.0-33.0) pg MCHC (31.0-35.0) g/dl RDW (11.0-16.0) % Plt Count (160-400) X10*3/uL MPV (9.4-12.3) fL Immature Gran % (Auto) (0.0-0.4) % Neut % (Auto) (45-73) % Lymph % (Auto) (20-40) % [place] % (Auto) (2-11) % Eos % (Auto) (0-4) % Baso % (Auto) (0-2) % Lymph # (Auto) (1.2-4.9) X10*3/uL [place] # (Auto) (0.1-1.2) X10*3/uL Eos # (Auto) (0.0-0.4) X10*3/uL Baso # (Auto) (0.0-0.2) X10*3/uL Abs Immat Gran (auto) (0.00-0.03) X10*3/uL Absolute Neuts (auto) (2.0-8.3) X10*3/uL Absolute Nucleated RBC (0.0-0.012) X10*3/uL Nucleated RBC % (auto) (0.0-0.2) /100WBC Smear Tech's Comments PT (10.8-13.0) SEC INR (0.9-1.1) APTT (24.1-38.0) SEC Sodium (135-145) mmol/L Potassium (3.3-5.1) mmol/L Chloride (96-108) mmol/L Carbon Dioxide (22-29) mmol/L Anion Gap (12-20) BUN (9-16) mg/dL Creatinine (0.5-1.4) mg/dL Estim Creat Clear Calc Estimated GFR Random Glucose (60-115) mg/dL Osmolality (281-305) mosm/kg Calcium (8.4-10.2) mg/dL Magnesium (1.6-2.6) mg/dL Total Bilirubin (0.0-1.0) mg/dL AST (5-31) U/L ALT (0-31) U/L Alkaline Phosphatase (39-117) U/L Troponin I High Sens (<3.5-17.0) ng/L B-Natriuretic Peptide (<100) pg/mL Total Protein (6.5-8.0) g/dL Albumin (3.5-5.0) g/dL Lipase (8-78) U/L Urine Color YELLOW Urine Appearance CLEAR Urine pH 6.0 (5.0-8.0) Ur Specific [place] >= 1.030 H (1.005-1.025) Urine Protein TRACE (NEG-TRACE) MG/DL Urine Glucose (UA) NEG (NEG) MG/DL Urine Ketones NEG (NEG) MG/DL Urine Blood NEG (NEG) Urine Nitrite NEG (NEG) Ur Leukocyte Esterase NEG (NEG) Urine Osmolality 546 (373-1093) mosm/kg Ur Random Sodium < 20.0 mmol/L Ethyl Alcohol mg/dL COVID-19 ([facility]) (Negative) COVID-19 Clin Com 12/13/20 12/13/20 Range/Units 15:48 15:48 WBC (4.8-10.8) X10*3/uL RBC (4.20-5.50) X10*6/uL Hgb (12.0-16.0) g/dl Hct (37-47) % MCV (80-98) fL MCH (27.0-33.0) pg MCHC (31.0-35.0) g/dl RDW (11.0-16.0) % Plt Count (160-400) X10*3/uL MPV (9.4-12.3) fL Immature Gran % (Auto) (0.0-0.4) % Neut % (Auto) (45-73) % Lymph % (Auto) (20-40) % [place] % (Auto) (2-11) % Eos % (Auto) (0-4) % Baso % (Auto) (0-2) % Lymph # (Auto) (1.2-4.9) X10*3/uL [place] # (Auto) (0.1-1.2) X10*3/uL Eos # (Auto) (0.0-0.4) X10*3/uL Baso # (Auto) (0.0-0.2) X10*3/uL Abs Immat Gran (auto) (0.00-0.03) X10*3/uL Absolute Neuts (auto) (2.0-8.3) X10*3/uL Absolute Nucleated RBC (0.0-0.012) X10*3/uL Nucleated RBC % (auto) (0.0-0.2) /100WBC Smear Tech's Comments PT (10.8-13.0) SEC INR (0.9-1.1) APTT (24.1-38.0) SEC Sodium 119 L* (135-145) mmol/L Potassium 5.7 H (3.3-5.1) mmol/L Chloride 78 L (96-108) mmol/L Carbon Dioxide 35 H (22-29) mmol/L Anion Gap 12 (12-20) BUN 19 H (9-16) mg/dL Creatinine 0.65 (0.5-1.4) mg/dL Estim Creat Clear Calc 96.3 Estimated GFR > 60 Random Glucose 122 H (60-115) mg/dL Osmolality (281-305) mosm/kg Calcium 8.9 (8.4-10.2) mg/dL Magnesium (1.6-2.6) mg/dL Total Bilirubin (0.0-1.0) mg/dL AST (5-31) U/L ALT (0-31) U/L Alkaline Phosphatase (39-117) U/L Troponin I High Sens 5.8 (<3.5-17.0) ng/L B-Natriuretic Peptide (<100) pg/mL Total Protein (6.5-8.0) g/dL Albumin (3.5-5.0) g/dL Lipase (8-78) U/L Urine Color Urine Appearance Urine pH (5.0-8.0) Ur Specific [place] (1.005-1.025) Urine Protein (NEG-TRACE) MG/DL Urine Glucose (UA) (NEG) MG/DL Urine Ketones (NEG) MG/DL Urine Blood (NEG) Urine Nitrite (NEG) Ur Leukocyte Esterase (NEG) Urine Osmolality (373-1093) mosm/kg Ur Random Sodium mmol/L Ethyl Alcohol mg/dL COVID-19 ([facility]) (Negative) COVID-19 Clin Com ECG Data Attestation: I personally reviewed and interpreted this ECG as follows: Interpretation: 1119: Sinus bradycardia with a rate of 57, first-degree AV block with [place] interval of 230 milliseconds, prolonged QRS of 108 milliseconds, normal QTC of 408 milliseconds, Q-wave noted in lead 3, no ST segment elevation or depression, no T-wave abnormalities. Discharge Plan Discharge Clinical Impression: Acute hyponatremia CHF (congestive heart failure) Qualifiers: Heart failure type: unspecified Heart failure chronicity: acute Qualified Code(s): I50.9 - Heart failure, unspecified Fluid overload Qualifiers: Hypervolemia type: unspecified Qualified Code(s): E87.70 - Fluid overload, unspecified Patient Disposition: Admitted As Inpatient
[2020-12-13 11:56] LABS: Basophils Percent Auto 0.1 % (0-2); Eosinophils Percent Auto 0.2 % (0-4); Hematocrit 35.1 % (37-47); Hemoglobin 11.6 g/dl (12.0-16.0); Imm Gran Abs Auto 0.06 X10*3/uL (0.00-0.03); Imm Gran Pct Auto 0.5 % (0.0-0.4); Lymphocytes Absolute Auto 0.3 X10*3/uL (1.2-4.9); Lymphocytes Percent Auto 2.7 % (20-40); MANUAL DIFF FLAG SCAN; Mean Corpuscular Hemoglobin 32.3 pg (27.0-33.0); Mean Corpuscular Volume 97.8 fL (80-98); Mean Platelet Volume 9.3 fL (9.4-12.3); Monocytes Absolute Auto 0.7 X10*3/uL (0.1-1.2); Monocytes Percent Auto 5.7 % (2-11); Neutrophils Absolute Auto 11.3 X10*3/uL (2.0-8.3); Neutrophils Percent Auto 90.8 % (45-73); Platelet Count 316 X10*3/uL (160-400); Red Blood Count 3.59 X10*6/uL (4.20-5.50); Red Cell Distribution Width 12.6 % (11.0-16.0); SCAN SMEAR FLAG 1; White Blood Count 12.4 X10*3/uL (4.8-10.8)
[2020-12-13 12:14] LABS: Partial Thromboplastin Time 34.2 SEC (24.1-38.0); SLIDE REVIEW VERIFIED
[2020-12-13 12:19] LABS: B Type Natriuretic Peptide 849 pg/mL (<100); Troponin-I High Sensitivity 5.9 ng/L (<3.5-17.0)
[2020-12-13 12:24] LABS: COVID-19 Test Negative (Negative)
[2020-12-13 12:28] LABS: Ethanol < 10 mg/dL
[2020-12-13 12:41] LABS: Glucose Urine UA NEG (NEG); Leukocyte Esterase Urine NEG (NEG); Nitrite Urine NEG (NEG); Specific Gravity - Urine >= 1.030 (1.005-1.025); Urine Blood NEG (NEG); Urine Ketones NEG (NEG); Urine Protein TRACE MG/DL (NEG-TRACE)
[2020-12-13 12:45] LABS: Appearance Urine CLEAR; Color Urine YELLOW
[2020-12-13 12:55] LABS: Alanine Aminotransferase 27 U/L (0-31); Alkaline Phosphatase 70 U/L (39-117); Anion Gap 10 (12-20); Aspartate Amino Transferase 23 U/L (5-31); Bilirubin Total 0.8 mg/dL (0.0-1.0); Blood Urea Nitrogen 21 mg/dL (9-16); Calcium 9.3 mg/dL (8.4-10.2); Carbon Dioxide 37 mmol/L (22-29); Chloride 79 mmol/L (96-108); Creatinine Clr Calc Pharmacy 94.9; Estimated Glomerular Filt Rate > 60; Glucose Random 133 mg/dL (60-115); Lipase 18 U/L (8-78); Sodium 120 mmol/L (135-145); Total Protein 6.8 g/dL (6.5-8.0)
[2020-12-13 14:32] LABS: Sodium Urine Random < 20.0 mmol/L
[2020-12-13 14:36] LABS: Osmolality, Serum 262 mosm/kg (281-305)
[2020-12-13 14:38] LABS: Osmolality Urine 546 mosm/kg (373-1093)
[2020-12-13] MEDS: Furosemide 40 MG/4 ML VIAL IVPUSH (14:50)
[2020-12-13] MEDS: LORazepam 2 MG/ML VIAL 1 MG IVPUSH (15:33)
--- NOTE | 2020-12-13 16:15 | PM.IMHP ---
History of Present Illness Date of Service: 12/13/20 Chief Complaint: Increased weakness, near falls, vomiting 75-year-old female with past medical history of hypertension hyperlipidemia, anxiety, AFib on Eliquis, chronic back pain status post surgery presented hospital a chief complaint of increased weakness, multiple episodes of nausea and vomiting and feeling shortness of breath and with dyspnea on exertion. The patient reports that since she left the hospital treated in feels she is back normal as she felt she is generally weak and that continue to worsen over the last few days associated with dyspnea on exertion. For the last 3 days she was having episodes nausea and vomiting. She noticed that her lower extremities are getting swollen. Denies any fever, chills, chest pain, palpitation, cough or urinary symptoms. The patient does have sleep apnea and has not been wearing her CPAP machine at night. 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 Throat cancer Social History Household Members: Family Housing: House Alcohol intake: current Alcohol intake frequency: does not drink Alcohol type: beer and hard liquor Smoking Status: Former smoker Use of substances other than those prescribed or required for medical reasons: No Advance Directives: No Advance Directives Information Provided: No service: No Current occupational status: retired [employer] Allergies Allergy/AdvReac Type Severity Reaction Status Date / Time SEASONAL ALLERGIES Allergy Unknown SNEEZING Uncoded 04/23/20 15:17 RUNNY NOSE Home Medications Medication Instructions Recorded Confirmed Last Taken Type lorazepam 1 tab PO BID PRN 11/18/20 12/13/20 Unknown History omeprazole 1 cap PO BID 11/18/20 12/13/20 Unknown History simvastatin 1 tab PO DAILY 11/18/20 12/13/20 Unknown History Physical Exam Vital Signs and Narrative: Vital Signs: Last Vital Signs Temp 97.4 F 12/13/20 15:40 Pulse 70 12/13/20 15:40 Resp 15 12/13/20 15:40 BP 154/75 H 12/13/20 15:40 Pulse Ox 95 12/13/20 15:40 Oxygen Flow Rate 2 12/13/20 10:47 Body Mass Index 38.7 Const: Other: Constitutional : Alert, oriented, in mild respiratory distress Neck : Normal inspection, Supple Cardiovascular : RRR, S1 S2, +1 lower extremity edema Respiratory : Decreased bilateral air entry, basal fine crackles, wheezes or rhonchi Gastrointestinal: soft, lax, Normal bowel sounds, Non tender Skin : Warm/Dry, No rash Neurological : Alert & oriented x3, No focal deficit Results Labs CBC and Chem 7: 12/13/20 11:47 12/13/20 15:48 Labs: Laboratory Results - last 24 hr 12/13/20 12/13/20 12/13/20 11:47 11:47 11:47 MCV 97.8 MCH 32.3 MCHC 33.0 RDW 12.6 Plt Count 316 MPV 9.3 L Immature Gran % (Auto) 0.5 H Neut % (Auto) 90.8 H Lymph % (Auto) 2.7 L [place] % (Auto) 5.7 Eos % (Auto) 0.2 Baso % (Auto) 0.1 Lymph # (Auto) 0.3 L [place] # (Auto) 0.7 Eos # (Auto) 0.0 Baso # (Auto) 0.0 Abs Immat Gran (auto) 0.06 H Absolute Neuts (auto) 11.3 H Absolute Nucleated RBC 0.000 Nucleated RBC % (auto) 0.0 Smear Tech's Comments VERIFIED PT INR APTT Anion Gap 10 L Estim Creat Clear Calc 94.9 Estimated GFR > 60 Random Glucose 133 H Osmolality Calcium 9.3 Magnesium Total Bilirubin 0.8 AST 23 ALT 27 Alkaline Phosphatase 70 Troponin I High Sens B-Natriuretic Peptide 849 H Total Protein 6.8 Albumin 4.0 Lipase 18 Urine Color Urine Appearance Urine pH Ur Specific [place] Urine Protein Urine Glucose (UA) Urine Ketones Urine Blood Urine Nitrite Ur Leukocyte Esterase Urine Osmolality Ur Random Sodium Ethyl Alcohol COVID-19 ([facility]) COVID-19 Clin Com 12/13/20 12/13/20 12/13/20 11:47 11:47 11:47 MCV MCH MCHC RDW Plt Count MPV Immature Gran % (Auto) Neut % (Auto) Lymph % (Auto) [place] % (Auto) Eos % (Auto) Baso % (Auto) Lymph # (Auto) [place] # (Auto) Eos # (Auto) Baso # (Auto) Abs Immat Gran (auto) Absolute Neuts (auto) Absolute Nucleated RBC Nucleated RBC % (auto) Smear Tech's Comments PT 24.0 H D INR 2.0 H APTT 34.2 Anion Gap Estim Creat Clear Calc Estimated GFR Random Glucose Osmolality Calcium Magnesium Total Bilirubin AST ALT Alkaline Phosphatase Troponin I High Sens 5.9 B-Natriuretic Peptide Total Protein Albumin Lipase Urine Color Urine Appearance Urine pH Ur Specific [place] Urine Protein Urine Glucose (UA) Urine Ketones Urine Blood Urine Nitrite Ur Leukocyte Esterase Urine Osmolality Ur Random Sodium Ethyl Alcohol COVID-19 ([facility]) Negative COVID-19 [employer] See Note 12/13/20 12/13/20 12/13/20 11:47 11:47 11:47 MCV MCH MCHC RDW Plt Count MPV Immature Gran % (Auto) Neut % (Auto) Lymph % (Auto) [place] % (Auto) Eos % (Auto) Baso % (Auto) Lymph # (Auto) [place] # (Auto) Eos # (Auto) Baso # (Auto) Abs Immat Gran (auto) Absolute Neuts (auto) Absolute Nucleated RBC Nucleated RBC % (auto) Smear Tech's Comments PT INR APTT Anion Gap Estim Creat Clear Calc Estimated GFR Random Glucose Osmolality 262 L Calcium Magnesium 2.0 Total Bilirubin AST ALT Alkaline Phosphatase Troponin I High Sens B-Natriuretic Peptide Total Protein Albumin Lipase Urine Color Urine Appearance Urine pH Ur Specific [place] Urine Protein Urine Glucose (UA) Urine Ketones Urine Blood Urine Nitrite Ur Leukocyte Esterase Urine Osmolality Ur Random Sodium Ethyl Alcohol < 10 COVID-19 ([facility]) COVID-[employer] 12/13/20 12/13/20 12/13/20 12:33 12:33 12:33 MCV MCH MCHC RDW Plt Count MPV Immature Gran % (Auto) Neut % (Auto) Lymph % (Auto) [place] % (Auto) Eos % (Auto) Baso % (Auto) Lymph # (Auto) [place] # (Auto) Eos # (Auto) Baso # (Auto) Abs Immat Gran (auto) Absolute Neuts (auto) Absolute Nucleated RBC Nucleated RBC % (auto) Smear Tech's Comments PT INR APTT Anion Gap Estim Creat Clear Calc Estimated GFR Random Glucose Osmolality Calcium Magnesium Total Bilirubin AST ALT Alkaline Phosphatase Troponin I High Sens B-Natriuretic Peptide Total Protein Albumin Lipase Urine Color YELLOW Urine Appearance CLEAR Urine pH 6.0 Ur Specific [place] >= 1.030 H Urine Protein TRACE Urine Glucose (UA) NEG Urine Ketones NEG Urine Blood NEG Urine Nitrite NEG Ur Leukocyte Esterase NEG Urine Osmolality 546 Ur Random Sodium < 20.0 Ethyl Alcohol COVID-19 ([facility]) COVID-19 Clin Com Imaging Radiologist's Impressions: Impressions Chest X-Ray 12/13/20 11:13 IMPRESSION: Bibasilar infiltrate/atelectasis. Suspect bilateral small pleural effusions. Assessment and Plan (1) Acute hyponatremia: Status: Acute (2) CHF (congestive heart failure): Qualifiers: Heart failure chronicity: acute Heart failure type: unspecified Qualified Code(s): I50.9 - Heart failure, unspecified Status: Acute (3) Fluid overload: Qualifiers: Hypervolemia type: unspecified Qualified Code(s): E87.70 - Fluid overload, unspecified Status: Acute 75-year-old female with past medical history of hypertension hyperlipidemia, anxiety, AFib on Eliquis, chronic back pain status post surgery presented hospital a chief complaint of increased weakness, multiple episodes of nausea and vomiting and feeling shortness of breath and with dyspnea on exertion. Acute hyponatremia Previously at similar presentation, thought to be SIADH To start urea, salt tablet, fluid restriction To get Nephrology evaluation Patient was supposed to do a PET scan as outpatient with Oncology in further evaluation for SIADH as CT showed no obvious lung pathology and has a positive cancer history afib Sinus bradycardia with first-degree block Continue flecainide, lopressor, eliquis Tele monitoring Nausea vomiting Could be viral, no tenderness on examination Use Zofran as needed acute diastolic chf right sided dysfunction and mild pulm htn Elevated BNP, CXR showing effusion Received Lasix in the emergency Continue with IV Lasix etoh dependence CIWA hypertension Continue amlodipine and metoprolol Monitor blood pressure DVT PPX Eliquis
[2020-12-13 16:27] LABS: Anion Gap 12 (12-20); Blood Urea Nitrogen 19 mg/dL (9-16); Calcium 8.9 mg/dL (8.4-10.2); Carbon Dioxide 35 mmol/L (22-29); Chloride 78 mmol/L (96-108); Creatinine Clr Calc Pharmacy 96.3; Estimated Glomerular Filt Rate > 60; Glucose Random 122 mg/dL (60-115); Potassium 5.7 mmol/L (3.3-5.1); Sodium 119 mmol/L (135-145)
[2020-12-13 16:33] LABS: Troponin-I High Sensitivity 5.8 ng/L (<3.5-17.0)
[2020-12-13] MEDS: Sodium Polystyrene Sulfon/Sorb 15 GM/60 ML ORAL.SUSP 30 GM PO (17:30)
[2020-12-13] MEDS: Sodium Chloride Tab 1 GM TABLET PO ×2 (17:31→21:26)
[2020-12-13] MEDS: Urea 15 GM POWDER 30 GM PO (17:31)
[2020-12-13] MEDS: Magnesium Oxide 400 MG TABLET PO (17:31)
[2020-12-13] MEDS: Metoprolol Tartrate 50 MG TABLET 75 MG PO (21:25)
[2020-12-13] MEDS: Apixaban 5 MG TABLET PO (21:25)
[2020-12-13] MEDS: Flecainide Acetate 50 MG TABLET 150 MG PO (21:25)
[2020-12-13] MEDS: 0.9 % Sodium Chloride Flush 3 ML SYRINGE IVFLUSH (21:26)
[2020-12-13] MEDS: traZODone HCL 25 MG HALFTAB PO (22:50)
[2020-12-14] VITALS (12 sets, daily range): BP systolic 106–150; BP diastolic 59–80; PULSE 53–125; RESP 18–20; TEMP 36.3–36.6; O2SAT 90–97
[2020-12-14] MEDS: LORazepam 1 MG TABLET PO ×2 (02:51→21:49)
[2020-12-14 05:14] LABS: Basophils Percent Auto 0.1 % (0-2); Eosinophils Absolute Auto 0.2 X10*3/uL (0.0-0.4); Eosinophils Percent Auto 1.5 % (0-4); Hematocrit 35.6 % (37-47); Hemoglobin 11.5 g/dl (12.0-16.0); Imm Gran Abs Auto 0.07 X10*3/uL (0.00-0.03); Imm Gran Pct Auto 0.6 % (0.0-0.4); Lymphocytes Absolute Auto 0.6 X10*3/uL (1.2-4.9); Lymphocytes Percent Auto 5.7 % (20-40); MANUAL DIFF FLAG SCAN; Mean Corpuscular HGB Conc 32.3 g/dl (31.0-35.0); Mean Corpuscular Hemoglobin 31.9 pg (27.0-33.0); Mean Corpuscular Volume 98.9 fL (80-98); Mean Platelet Volume 9.5 fL (9.4-12.3); Monocytes Absolute Auto 1.1 X10*3/uL (0.1-1.2); Monocytes Percent Auto 10.3 % (2-11); Neutrophils Percent Auto 81.8 % (45-73); Platelet Count 321 X10*3/uL (160-400); Red Cell Distribution Width 12.5 % (11.0-16.0); SCAN SMEAR FLAG 1
[2020-12-14 05:35] LABS: SLIDE REVIEW VERIFIED
[2020-12-14] MEDS: Omeprazole 20 MG CAPSULE.DR PO ×2 (05:35→16:16)
[2020-12-14 05:44] LABS: B Type Natriuretic Peptide 1106 pg/mL (<100)
[2020-12-14 06:00] LABS: Thyroid Stimulating Hormone 1.38 uIU/mL (0.32-4.0)
--- NOTE | 2020-12-14 08:59 | MHC.CM.PN ---
CM met with Patient at bedside and addressed IMM with her,( providing Patient with the original and placing a copy on the chart). Patient lives in a house with her Son and a Boarder and she was active with [facility] (No DME). Patient's goal is to return home and CM has initiated and will follow for dc planning. Patient's PCP is Dr. Mian Martinez and her Daughters are her HCP. Patient does not use O2 cat home.
[2020-12-14] MEDS: Flecainide Acetate 50 MG TABLET 150 MG PO ×2 (09:05→21:51)
[2020-12-14] MEDS: Sodium Chloride Tab 1 GM TABLET PO ×2 (09:06→21:50)
[2020-12-14] MEDS: Magnesium Oxide 400 MG TABLET PO ×2 (09:06→16:16)
[2020-12-14] MEDS: amLODIPine Besylate 5 MG TABLET PO (09:06)
[2020-12-14] MEDS: 0.9 % Sodium Chloride Flush 3 ML SYRINGE IVFLUSH ×2 (09:07→21:55)
[2020-12-14] MEDS: cefTRIAXone sodium 1 GM in 0.9 % Sodium Chloride 50 ML IV (09:07)
[2020-12-14] MEDS: Apixaban 5 MG TABLET PO ×2 (09:07→21:49)
[2020-12-14] MEDS: Metoprolol Tartrate 50 MG TABLET 75 MG PO ×2 (09:08→21:54)
[2020-12-14 09:20] LABS: B Type Natriuretic Peptide 1285 pg/mL (<100)
[2020-12-14 09:29] LABS: Anion Gap 10 (12-20); Blood Urea Nitrogen 22 mg/dL (9-16); Chloride 77 mmol/L (96-108); Creatinine Clr Calc Pharmacy 104.4; Estimated Glomerular Filt Rate > 60; Glucose Random 100 mg/dL (60-115); Potassium 4.2 mmol/L (3.3-5.1); Sodium 128 mmol/L (135-145)
[2020-12-14] MEDS: Azithromycin 500 MG in 0.9 % Sodium Chloride 250 ML 125 MG IV (10:09)
[2020-12-14 10:18] LABS: Carbon Dioxide 45 mmol/L (22-29)
[2020-12-14] MEDS: 0.9 % Sodium Chloride 1,000 ML 100 ML IVCONT (12:59)
[2020-12-14 14:08] LABS: Anion Gap 10 (12-20); Blood Urea Nitrogen 20 mg/dL (9-16); Calcium 8.6 mg/dL (8.4-10.2); Carbon Dioxide 40 mmol/L (22-29); Chloride 79 mmol/L (96-108); Creatinine Clr Calc Pharmacy 104.4; Estimated Glomerular Filt Rate > 60; Glucose Random 146 mg/dL (60-115); Sodium 125 mmol/L (135-145)
--- NOTE | 2020-12-14 15:40 | CONS_ITS ---
DATE OF SERVICE: 12/14/2020 REASON FOR CONSULTATION: I was called to see this patient to assist in the management of hyponatremia. HISTORY OF PRESENT ILLNESS: To summarize, Lucia is a 75-year-old woman with a history of hyponatremia in the past. 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 She comes in this time with a serum sodium of 120. She has increasing weakness with falls and vomiting. Serum sodium of 120. She is currently on TPN. Serum sodium has dropped to 119 and hence this consultation. PAST MEDICAL HISTORY: Ongoing medical problems include history of hypertension, primary head and neck carcinoma/throat cancer, atrial fibrillation. MEDICATIONS: Lorazepam , simvastatin, and omeprazole at the time of admission. All the current medications were reviewed. REVIEW OF SYSTEMS: Review of system was obtained from the chart. No headache, nausea, or vomiting. No abdominal pain. No polyuria or polydipsia. All other systems were reviewed. PHYSICAL EXAMINATION: GENERAL: The patient is a 75-year-old woman. She is not in any distress. NECK: Supple. LUNGS: Air entry equal. No significant rales. HEART: S1, S2 heard. No gallop. ABDOMEN: Soft, nontender. EXTREMITIES: No edema. VITAL SIGNS: Blood pressure today was 135/75, pulse 116 per minute. LABORATORY DATA: Hemoglobin 11.5, platelets 321. Sodium 128 this morning, potassium 4.2, BUN 22, creatinine 0.6. Yesterday afternoon sodium 119, potassium 5.7, CO2 of 35. IMPRESSION: A 75-year-old woman with head and neck cancer, now with hyponatremia. The urine sodium was less than hypoperfusion. However, there has been a rapid increase in serum sodium from 119 to 128 over the last 12 hours. For now, we will administer her half-normal saline to slow the rate of correction. I would discontinue the urea powder. We will try to maintain serum sodium around 125 for the rest of the day. Monitor serum sodium every 2 to 4 hours. The bicarb level is elevated. It is unclear why she developed alkalosis. We will check the urine chloride and proceed from there. Raz Stewart MD BPA/MODL / [id number]
--- NOTE | 2020-12-14 16:15 | P.PNIM_ITS ---
Subjective Subjective Date of Service: 12/14/20 Interval History: The patient was seen and evaluated this morning Laying in bed, feels comfortable overall, was eating and session of physical therapy Sodium has been improving to 129 Heart rhythm went into AFib Denies any fever, chills or shortness of breath No reported other overnight events. Systemic review: No fever, chills but reported general weakness No chest pain, palpitation No shortness of breath or coughing No abdominal pain, nausea or vomiting No urinary symptoms No any rash or wounds Physical Exam Vital Signs: Vital Signs: Last Vital Signs Temp 97.5 F 12/14/20 15:41 Pulse 103 H 12/14/20 15:41 Resp 20 12/14/20 15:41 BP 150/76 H 12/14/20 15:41 Pulse Ox 92 12/14/20 15:41 Oxygen Flow Rate 2 12/13/20 10:47 Body Mass Index 38.7 Const: Other: Constitutional : Alert, oriented, in mild respiratory distress Neck : Normal inspection, Supple Cardiovascular : Irregular irregular, S1 S2, +1 lower extremity edema Respiratory : Decreased bilateral air entry, basal fine crackles, wheezes or rhonchi Gastrointestinal: soft, lax, Normal bowel sounds, Non tender Skin : Warm/Dry, No rash Neurological : Alert & oriented x3, No focal deficit Objective Data Current Medications Generic Name Dose Route Start Last Admin Trade Name Shubhamq PRN Reason Stop Dose Admin Acetaminophen 650 mg 12/13/20 16:49 Acetaminophen 325 Mg Tablet PO Q6H PRN Pain, Mild (Pain Scale 1-3) Amlodipine Besylate 5 mg 12/14/20 09:00 12/14/20 09:06 Amlodipine Besylate 5 Mg Tablet PO 5 mg DAILY DEE Administration Protocol Apixaban 5 mg 12/13/20 21:00 12/14/20 09:07 Apixaban 5 Mg Tablet PO 5 mg BID DEE Administration Flecainide Acetate 150 mg 12/13/20 21:00 12/14/20 09:05 Flecainide Acetate 50 Mg Tablet PO 150 mg BID DEE Administration Ceftriaxone Sodium 1 gm/ 50 mls @ 100 mls/hr 12/14/20 08:30 12/14/20 10:53 Sodium Chloride IV Infused Q24H DEE Infusion Azithromycin 500 mg/ Sodium 250 mls @ 125 mls/hr 12/14/20 10:00 12/14/20 13:01 Chloride IV Infused Q24H DEE Infusion Lorazepam 1 mg 12/13/20 16:49 12/14/20 02:51 Lorazepam 1 Mg Tablet PO 1 mg BID PRN Administration Anxiety Magnesium Oxide 400 mg 12/13/20 17:30 12/14/20 09:06 Magnesium Oxide 400 Mg Tablet PO 400 mg BIDPC DEE Administration Metoprolol Tartrate 75 mg 12/13/20 21:00 12/14/20 09:08 Metoprolol Tartrate 50 Mg Tablet PO 75 mg BID DEE Administration Protocol Omeprazole 20 mg 12/14/20 06:30 12/14/20 05:35 Omeprazole 20 Mg Capsule. PO 20 mg BID@0630,7600 DEE Administration Ondansetron HCl 4 mg 12/13/20 16:49 Ondansetron Hcl 4 Mg/2 Ml Vial IVPUSH Q8H PRN Nausea and Vomiting Sodium Chloride 1 gm 12/13/20 16:46 12/14/20 09:06 Sodium Chloride Tab 1 Gm Tablet PO 1 gm BID DEE Administration Sodium Chloride 3 ml 12/14/20 00:00 12/14/20 09:07 0.9 % Sodium Chloride Flush 3 Ml Syringe IVFLUSH 3 ml QSHIFT DEE Administration Urea 15 gm 12/14/20 16:13 Urea 15 Gm Powder PO 12/14/20 16:14 ONCE ONE Labs CBC & Chem 7: 12/14/20 04:29 12/14/20 13:11 Assessment and Plan (1) Acute hyponatremia: Status: Acute (2) CHF (congestive heart failure): Status: Acute (3) Fluid overload: Status: Acute Assessment and Plan: 75-year-old female with past medical history of hypertension hyperlipidemia, anxiety, AFib on Eliquis, chronic back pain status post surgery presented ho spital a chief complaint of increased weakness, multiple episodes of nausea and vomiting and feeling shortness of breath and with dyspnea on exertion. Acute hyponatremia Seems to be secondary to CHF Given urea, salt tablet, fluid restriction Pending Nephrology evaluation Patient was supposed to do a PET scan as outpatient with Oncology in further evaluation for SIADH as CT showed no obvious lung pathology and has a positive cancer history afib Converted to atrial fibrillation rhythm Continue flecainide, lopressor, eliquis Tele monitoring Nausea vomiting Could be viral, no tenderness on examination Use Zofran as needed acute diastolic chf right sided dysfunction and mild pulm htn Elevated BNP, CXR showing effusion Received Lasix in the emergency Discontinue IV fluid Continue with IV Lasix today Atelectasis Along with coughing and elevated WBCs will treat as pneumonia Start azithromycin and ceftriaxone etoh dependence CIWA hypertension Continue amlodipine and metoprolol Monitor blood pressure DVT PPX Eliquis
[2020-12-14 16:49] LABS: Magnesium 1.5 mg/dL (1.6-2.6)
[2020-12-14] MEDS: Furosemide 40 MG/4 ML VIAL IVPUSH (16:51)
[2020-12-14] MEDS: Urea 15 GM POWDER PO (16:52)
[2020-12-14] MEDS: Magnesium Sulfate/H2O 2 GM/50 ML PIGGYBACK IV (18:50)
[2020-12-14] MEDS: traZODone HCL 25 MG HALFTAB PO (21:48)
[2020-12-15] VITALS (10 sets, daily range): BP systolic 115–159; BP diastolic 56–85; PULSE 79–104; RESP 19–22; TEMP 36.1–36.4; O2SAT 90–98
[2020-12-15] MEDS: Omeprazole 20 MG CAPSULE.DR PO ×2 (06:14→15:34)
[2020-12-15] MEDS: Metoprolol Tartrate 50 MG TABLET 75 MG PO ×2 (09:08→20:43)
[2020-12-15] MEDS: 0.9 % Sodium Chloride Flush 3 ML SYRINGE IVFLUSH ×3 (09:08→23:10)
[2020-12-15] MEDS: cefTRIAXone sodium 1 GM in 0.9 % Sodium Chloride 50 ML IV (09:08)
[2020-12-15] MEDS: Apixaban 5 MG TABLET PO ×2 (09:09→20:41)
[2020-12-15] MEDS: amLODIPine Besylate 5 MG TABLET PO (09:09)
[2020-12-15] MEDS: Sodium Chloride Tab 1 GM TABLET PO ×2 (09:09→20:41)
[2020-12-15] MEDS: Flecainide Acetate 50 MG TABLET 150 MG PO ×2 (09:09→20:41)
[2020-12-15] MEDS: Magnesium Oxide 400 MG TABLET PO ×2 (09:09→16:47)
--- NOTE | 2020-12-15 09:52 | P.PNNP_ITS ---
Subjective Subjective Date of Service: 12/15/20 Interval history: Events noted Na 125 yesterday afternoon Physical Exam Vital Signs: Vital Signs: Last Vital Signs Temp 96.9 F 12/15/20 07:28 Pulse 98 12/15/20 09:09 Resp 22 H 12/15/20 07:28 BP 140/75 H 12/15/20 09:09 Pulse Ox 96 12/15/20 07:28 Oxygen Flow Rate 2 12/13/20 10:47 Body Mass Index 38.7 Const: General: awake Resp: Auscultation: clear to auscultation bilaterally Cardio: Heart sounds: no murmurs and no rubs Neuro: Motor exam (neuro): No Asterixis during motor activity present Objective Data Labs CBC & Chem 7: 12/14/20 04:29 12/14/20 13:11 Labs: Laboratory Results - last 24 hr 12/14/20 12/14/20 12/14/20 08:36 13:11 13:11 Sodium 125 L Potassium 4.0 Chloride 79 L Carbon Dioxide 45 H* D 40 H* Anion Gap 10 L BUN 20 H Creatinine 0.60 Estim Creat Clear Calc 104.4 Estimated GFR > 60 Random Glucose 146 H D Calcium 8.6 Magnesium 1.5 L B-Natriuretic Peptide Cancelled Assessment & Plan Assessment and plan (1) Acute hyponatremia: Problem details: Low urine sodium suggestive of hypoperfusion Keep I > O with isotonic fluids Check pNa q 4 hrs Elevated tCO2 - Surprise Alkalosis vs resp acidosis - favor hero former will Check urine chloride Status: Acute Time Spent With Patient Time: Total time spent is greater than 50% in coordination of care (as documented) at patient's floor/unit and/or counseling patient:
[2020-12-15] MEDS: Azithromycin 500 MG in 0.9 % Sodium Chloride 250 ML 125 MG IV (09:55)
--- NOTE | 2020-12-15 12:10 | HO.PM.IMPN ---
Subjective Subjective Date of Service: 12/16/20 Interval History: Seen in f/u for hyponatremia, sodium is now 134, but bicab level is going up Review of Systems No fever, chills what increased generalized weakness No chest pain, palpitation Reporting dyspnea on exertion shortness of breath with minimal coughing No abdominal pain but reporting nausea or vomiting No urinary symptoms No any rash or wounds Physical Exam Vital Signs: Vital Signs: Last Vital Signs Temp 97.0 F 12/15/20 11:41 Pulse 79 12/15/20 11:41 Resp 20 12/15/20 11:41 BP 121/72 12/15/20 11:41 Pulse Ox 96 12/15/20 11:41 Oxygen Flow Rate 2 12/13/20 10:47 Body Mass Index 38.7 Const: Other: Constitutional : Alert, oriented, in mild respiratory distress Neck : Normal inspection, Supple Cardiovascular : Irregular irregular, S1 S2, +1 lower extremity edema Respiratory : Decreased bilateral air entry, basal fine crackles, wheezes or rhonchi Gastrointestinal: soft, lax, Normal bowel sounds, Non tender Skin : Warm/Dry, No rash Neurological : Alert & oriented x3, No focal deficit Objective Data Current Medications Generic Name Dose Route Start Last Admin Trade Name Freq PRN Reason Stop Dose Admin Acetaminophen 650 mg 12/13/20 16:49 Acetaminophen 325 Mg Tablet PO Q6H PRN Pain, Mild (Pain Scale 1-3) Amlodipine Besylate 5 mg 12/14/20 09:00 12/15/20 09:09 Amlodipine Besylate 5 Mg Tablet PO 5 mg DAILY DEE Administration Protocol Apixaban 5 mg 12/13/20 21:00 12/15/20 09:09 Apixaban 5 Mg Tablet PO 5 mg BID DEE Administration Flecainide Acetate 150 mg 12/13/20 21:00 12/15/20 09:09 Flecainide Acetate 50 Mg Tablet PO 150 mg BID DEE Administration Ceftriaxone Sodium 1 gm/ 50 mls @ 100 mls/hr 12/14/20 08:30 12/15/20 09:50 Sodium Chloride IV Infused Q24H DEE Infusion Azithromycin 500 mg/ Sodium 250 mls @ 125 mls/hr 12/14/20 10:00 12/15/20 11:59 Chloride IV Infused Q24H DEE Infusion Lorazepam 1 mg 12/13/20 16:49 12/14/20 21:49 Lorazepam 1 Mg Tablet PO 1 mg BID PRN Administration Anxiety Magnesium Oxide 400 mg 12/13/20 17:30 12/15/20 09:09 Magnesium Oxide 400 Mg Tablet PO 400 mg BIDPC DEE Administration Metoprolol Tartrate 75 mg 12/13/20 21:00 12/15/20 09:08 Metoprolol Tartrate 50 Mg Tablet PO 75 mg BID DEE Administration Protocol Omeprazole 20 mg 12/14/20 06:30 12/15/20 06:14 Omeprazole 20 Mg Capsule. PO 20 mg BID@0630,6990 DEE Administration Ondansetron HCl 4 mg 12/13/20 16:49 Ondansetron Hcl 4 Mg/2 Ml Vial IVPUSH Q8H PRN Nausea and Vomiting Sodium Chloride 1 gm 12/13/20 16:46 12/15/20 09:09 Sodium Chloride Tab 1 Gm Tablet PO 1 gm BID DEE Administration Sodium Chloride 3 ml 12/14/20 00:00 12/15/20 09:08 0.9 % Sodium Chloride Flush 3 Ml Syringe IVFLUSH 3 ml QSHIFT DEE Administration Trazodone HCl 25 mg 12/14/20 21:20 12/14/20 21:48 Trazodone Hcl 25 Mg Halftab PO 25 mg BEDTIME PRN Administration Insomnia Labs CBC & Chem 7: 12/14/20 04:29 12/16/20 09:27 Assessment and Plan (1) Acute hyponatremia: Status: Acute Assessment and Plan: 75-year-old female with past medical history of hypertension hyperlipidemia, anxiety, AFib on Eliquis, chronic back pain status post surgery presented hospital a chief complaint of increased weakness, multiple episodes of nausea and vomiting and feeling shortness of breath and with dyspnea on exertion. Acute hyponatremia--related to heart failur, Given urea, salt tablet, fluid restriction Nephrology following, not sure what next is afib flecainide, lopressor, eliquis Tele monitoring Nausea vomiting--likely related to low sodium and seem to have resolved Zofran as needed acute diastolic chf right sided dysfunction and mild pulm htn Elevated BNP, CXR showing effusion Received Lasix in the emergency presently seemd compensated Now off lasix Atelectasis Along with coughing and elevated WBCs will treat as pneumonia and started on Ceftriaone and Azithro 2 days ago, she has WBC that are chronically high and mild, no evidence of PNA, will stop Abx etoh dependence CIWA hypertension Continue amlodipine and metoprolol Monitor blood pressure Metabolic Alkalosis that is getting worse and no longer on diuretics--? need for Diamox will check with nephrology
[2020-12-15 13:40] LABS: Anion Gap 11 (12-20); Blood Urea Nitrogen 16 mg/dL (9-16); Calcium 8.8 mg/dL (8.4-10.2); Carbon Dioxide 44 mmol/L (22-29); Chloride 79 mmol/L (96-108); Estimated Glomerular Filt Rate > 60; Glucose Random 171 mg/dL (60-115); Potassium 3.9 mmol/L (3.3-5.1); Sodium 130 mmol/L (135-145)
[2020-12-15] MEDS: traZODone HCL 25 MG HALFTAB PO (23:07)
[2020-12-16] VITALS (8 sets, daily range): BP systolic 120–140; BP diastolic 59–84; PULSE 85–102; RESP 18–22; TEMP 36.3–36.9; O2SAT 90–94
[2020-12-16] MEDS: LORazepam 1 MG TABLET PO (03:55)
[2020-12-16] MEDS: Omeprazole 20 MG CAPSULE.DR PO ×2 (05:56→17:14)
[2020-12-16] MEDS: cefTRIAXone sodium 1 GM in 0.9 % Sodium Chloride 50 ML IV (09:49)
[2020-12-16] MEDS: Sodium Chloride Tab 1 GM TABLET PO ×2 (09:49→20:58)
[2020-12-16] MEDS: Flecainide Acetate 50 MG TABLET 150 MG PO ×2 (09:50→20:57)
[2020-12-16] MEDS: Magnesium Oxide 400 MG TABLET PO ×2 (09:50→17:14)
[2020-12-16] MEDS: 0.9 % Sodium Chloride Flush 3 ML SYRINGE IVFLUSH ×3 (09:50→23:30)
[2020-12-16] MEDS: Apixaban 5 MG TABLET PO ×2 (09:50→20:58)
[2020-12-16] MEDS: amLODIPine Besylate 5 MG TABLET PO (09:50)
[2020-12-16] MEDS: Metoprolol Tartrate 50 MG TABLET 75 MG PO ×2 (09:51→20:58)
--- NOTE | 2020-12-16 10:31 | PM.PNNEP ---
Subjective Subjective Date of Service: 01/05/21 Interval history: Seen in f/u for hyponatremia, Labs pending Physical Exam Vital Signs: Vital Signs: Last Vital Signs Temp 97.3 F 12/16/20 08:00 Pulse 102 H 12/16/20 08:00 Resp 22 H 12/16/20 08:00 BP 121/59 L 12/16/20 08:00 Pulse Ox 91 L 12/16/20 08:00 Oxygen Flow Rate 2 12/13/20 10:47 Body Mass Index 38.7 Const: General: alert Neck: Neck: Yes supple Resp: Auscultation: clear to auscultation bilaterally Cardio: Palpation: no palpable S3 and no palpable S4 GI: Palpation (GI): Soft to palpation Auscultation: normal bowel sounds Neuro: General: no focal motor deficits Objective Data Labs CBC & Chem 7: 01/05/21 05:15 01/05/21 05:15 Labs: Laboratory Results - last 24 hr 12/15/20 12/15/20 11:15 12:51 Sodium 130 L Potassium 3.9 Chloride 79 L Carbon Dioxide 44 H* Anion Gap 11 L BUN 16 Creatinine 0.62 Estim Creat Clear Calc 101.0 Estimated GFR > 60 Random Glucose 171 H Calcium 8.8 Ur Random Chloride 26.0 Assessment & Plan Assessment and plan (1) Acute hyponatremia: Status: Acute Assessment and Plan: 1) Acute hyponatremia: Problem details: Low urine sodium suggestive of hypoperfusion Keep I > O with isotonic fluids Check pNa q 12 hrs Elevated tCO2 - [place] Alkalosis vs resp acidosis - favor the former Time Spent With Patient Time: Total time spent is greater than 50% in coordination of care (as documented) at patient's floor/unit and/or counseling patient:
[2020-12-16] MEDS: Azithromycin 500 MG in 0.9 % Sodium Chloride 250 ML 125 MG IV (10:38)
--- NOTE | 2020-12-16 10:55 | MHC.CM.PN ---
Patient may be ready for dc soon, per ROUNDS discussion.Patient is being treated with IV Ceftriaxone and IV Azithromycin for presumed PNA and Na is improving. Home/resume [facility] is the goal for dc and CM will continue to follow for possible need to adjust the dc plan.
[2020-12-16 11:44] LABS: Anion Gap 8 (12-20); Blood Urea Nitrogen 10 mg/dL (9-16); Chloride 80 mmol/L (96-108); Creatinine Clr Calc Pharmacy 106.1; Estimated Glomerular Filt Rate > 60; Glucose Random 113 mg/dL (60-115); Potassium 3.6 mmol/L (3.3-5.1); Sodium 134 mmol/L (135-145)
[2020-12-16 13:04] LABS: Carbon Dioxide 50 mmol/L (22-29)
[2020-12-16 14:29] LABS: Anion Gap 12 (12-20); Blood Urea Nitrogen 13 mg/dL (9-16); Calcium 9.1 mg/dL (8.4-10.2); Carbon Dioxide 44 mmol/L (22-29); Chloride 80 mmol/L (96-108); Creatinine Clr Calc Pharmacy 99.4; Estimated Glomerular Filt Rate > 60; Glucose Random 157 mg/dL (60-115); Sodium 132 mmol/L (135-145)
[2020-12-16] MEDS: traZODone HCL 25 MG HALFTAB PO (22:30)
[2020-12-17] VITALS (11 sets, daily range): BP systolic 110–136; BP diastolic 54–79; PULSE 73–106; RESP 16–20; TEMP 35.5–37.1; O2SAT 90–96
[2020-12-17] MEDS: LORazepam 1 MG TABLET PO (01:00)
[2020-12-17] MEDS: Omeprazole 20 MG CAPSULE.DR PO (05:46)
[2020-12-17] MEDS: cefTRIAXone sodium 1 GM in 0.9 % Sodium Chloride 50 ML IV (08:50)
[2020-12-17] MEDS: Metoprolol Tartrate 50 MG TABLET 75 MG PO ×2 (08:56→20:53)
[2020-12-17] MEDS: Flecainide Acetate 50 MG TABLET 150 MG PO ×2 (08:56→20:54)
[2020-12-17] MEDS: amLODIPine Besylate 5 MG TABLET PO (08:58)
[2020-12-17] MEDS: 0.9 % Sodium Chloride Flush 3 ML SYRINGE IVFLUSH ×3 (08:58→21:00)
[2020-12-17] MEDS: Magnesium Oxide 400 MG TABLET PO ×2 (08:58→16:39)
[2020-12-17] MEDS: Sodium Chloride Tab 1 GM TABLET PO ×2 (08:58→20:52)
[2020-12-17] MEDS: Apixaban 5 MG TABLET PO ×2 (08:58→20:52)
[2020-12-17 09:27] LABS: Anion Gap 12 (12-20); Blood Urea Nitrogen 11 mg/dL (9-16); Calcium 9.4 mg/dL (8.4-10.2); Carbon Dioxide 45 mmol/L (22-29); Chloride 80 mmol/L (96-108); Estimated Glomerular Filt Rate > 60; Glucose Random 104 mg/dL (60-115); Potassium 4.5 mmol/L (3.3-5.1); Sodium 132 mmol/L (135-145)
--- NOTE | 2020-12-17 10:15 | HO.PM.IMPN ---
Subjective Subjective Date of Service: 12/17/20 Interval History: Seen in f/u for hyponatremia, sodium is now 13, bicab remains high at 45, she is having some dysphagia and coughing with food Review of Systems No fever, chills what increased generalized weakness No chest pain, palpitation Reporting dyspnea on exertion shortness of breath with minimal coughing No abdominal pain but reporting nausea or vomiting No urinary symptoms No any rash or wounds Physical Exam Vital Signs: Vital Signs: Last Vital Signs Temp 96 F L 12/17/20 07:09 Pulse 73 12/17/20 08:58 Resp 20 12/17/20 07:09 BP 118/79 12/17/20 08:58 Pulse Ox 91 L 12/17/20 07:09 Oxygen Flow Rate 2 12/13/20 10:47 Body Mass Index 38.7 Const: Other: Constitutional : Alert, oriented, in mild respiratory distress Neck : Normal inspection, Supple Cardiovascular : Irregular irregular, S1 S2, +1 lower extremity edema Respiratory : Decreased bilateral air entry, basal fine crackles, wheezes or rhonchi Gastrointestinal: soft, lax, Normal bowel sounds, Non tender Skin : Warm/Dry, No rash Neurological : Alert & oriented x3, No focal deficit Objective Data Current Medications Generic Name Dose Route Start Last Admin Trade Name Freq PRN Reason Stop Dose Admin Acetaminophen 650 mg 12/13/20 16:49 Acetaminophen 325 Mg Tablet PO Q6H PRN Pain, Mild (Pain Scale 1-3) Amlodipine Besylate 5 mg 12/14/20 09:00 12/17/20 08:58 Amlodipine Besylate 5 Mg Tablet PO 5 mg DAILY DEE Administration Protocol Apixaban 5 mg 12/13/20 21:00 12/17/20 08:58 Apixaban 5 Mg Tablet PO 5 mg BID DEE Administration Flecainide Acetate 150 mg 12/13/20 21:00 12/17/20 08:56 Flecainide Acetate 50 Mg Tablet PO 150 mg BID DEE Administration Ceftriaxone Sodium 1 gm/ 50 mls @ 100 mls/hr 12/14/20 08:30 12/17/20 08:50 Sodium Chloride IV 100 mls/hr Q24H DEE Administration Azithromycin 500 mg/ Sodium 250 mls @ 125 mls/hr 12/14/20 10:00 12/16/20 12:44 Chloride IV Infused Q24H DEE Infusion Lorazepam 1 mg 12/13/20 16:49 12/17/20 01:00 Lorazepam 1 Mg Tablet PO 1 mg BID PRN Administration Anxiety Magnesium Oxide 400 mg 12/13/20 17:30 12/17/20 08:58 Magnesium Oxide 400 Mg Tablet PO 400 mg BIDPC DEE Administration Metoprolol Tartrate 75 mg 12/13/20 21:00 12/17/20 08:56 Metoprolol Tartrate 50 Mg Tablet PO 75 mg BID DEE Administration Protocol Omeprazole 20 mg 12/14/20 06:30 12/17/20 05:46 Omeprazole 20 Mg Capsule. PO 20 mg BID@3221,4890 DEE Administration Ondansetron HCl 4 mg 12/13/20 16:49 Ondansetron Hcl 4 Mg/2 Ml Vial IVPUSH Q8H PRN Nausea and Vomiting Sodium Chloride 1 gm 12/13/20 16:46 12/17/20 08:58 Sodium Chloride Tab 1 Gm Tablet PO 1 gm BID DEE Administration Sodium Chloride 3 ml 12/14/20 00:00 12/17/20 08:58 0.9 % Sodium Chloride Flush 3 Ml Syringe IVFLUSH 3 ml QSHIFT DEE Administration Trazodone HCl 25 mg 12/14/20 21:20 12/16/20 22:30 Trazodone Hcl 25 Mg Halftab PO 25 mg BEDTIME PRN Administration Insomnia Labs CBC & Chem 7: 12/14/20 04:29 12/17/20 08:25 Assessment and Plan (1) Acute hyponatremia: Status: Acute Assessment and Plan: 75-year-old female with past medical history of hypertension hyperlipidemia, anxiety, AFib on Eliquis, chronic back pain status post surgery presented hospital a chief complaint of increased weakness, multiple episodes of nausea and vomiting and feeling shortness of breath and with dyspnea on exertion. Acute hyponatremia--related to heart failure, Given urea, salt tablet, fluid restriction Nephrology following, not sure what next is afib flecainide, lopressor, eliquis Tele monitoring Nausea vomiting--likely related to low sodium and seem to have resolved Zofran as needed acute diastolic chf right sided dysfunction and mild pulm htn Elevated BNP, CXR showing effusion Received Lasix in the emergency presently seemd compensated Now off lasix Atelectasis Along with coughing, she likely has micro aspiration, no indication for antibiotics at this time etoh dependence CIWA hypertension Continue amlodipine and metoprolol Monitor blood pressure Metabolic Alkalosis that is getting worse and no longer on diuretics--? need for Diamox will check with nephrology Dyphagia--speech eval
[2020-12-17] MEDS: Azithromycin 500 MG in 0.9 % Sodium Chloride 250 ML 125 MG IV (10:16)
--- NOTE | 2020-12-17 10:17 | P.PNNP_ITS ---
Subjective Subjective Date of Service: 12/17/20 Interval history: Seen in f/u for hyponatremia, sodium is now 134, but bicarb level is going up Physical Exam Vital Signs: Vital Signs: Last Vital Signs Temp 96 F L 12/17/20 07:09 Pulse 73 12/17/20 08:58 Resp 20 12/17/20 07:09 BP 118/79 12/17/20 08:58 Pulse Ox 91 L 12/17/20 07:09 Oxygen Flow Rate 2 12/13/20 10:47 Body Mass Index 38.7 Const: General: alert and awake Neck: Neck: Yes supple Resp: Auscultation: clear to auscultation bilaterally Cardio: Palpation: no palpable S3 and no palpable S4 Heart sounds: no murmurs and no rubs GI: Palpation (GI): Soft to palpation Auscultation: normal bowel sounds Neuro: General: no focal motor deficits Motor exam (neuro): No Asterixis during motor activity present Objective Data Labs CBC & Chem 7: 12/14/20 04:29 12/17/20 08:25 Labs: Laboratory Results - last 24 hr 12/16/20 12/16/20 12/17/20 09:27 13:03 08:25 Sodium 134 L 132 L 132 L Potassium 3.6 4.0 4.5 Chloride 80 L 80 L 80 L Carbon Dioxide 50 H* 44 H* 45 H* Anion Gap 8 L 12 12 BUN 10 13 11 Creatinine 0.59 0.63 0.62 Estim Creat Clear Calc 106.1 99.4 101.0 Estimated GFR > 60 > 60 > 60 Random Glucose 113 157 H D 104 Calcium 9.0 9.1 9.4 Assessment & Plan Assessment and plan (1) Acute hyponatremia: Status: Acute Assessment and Plan: 1) Acute hyponatremia: Problem details: Low urine sodium suggestive of hypoperfusion Keep I > O with isotonic fluids Check pNa q 24 hrs Elevated tCO2 - [place] Alkalosis vs resp acidosis - favor the former Check ABG and repeat urine Chloride Time Spent With Patient Time: Total time spent is greater than 50% in coordination of care (as documented) at patient's floor/unit and/or counseling patient:
--- NOTE | 2020-12-17 11:30 | MHC.CLN ---
F/U PT ON 1200CC FLUID RESTRICTION PT ALSO RECEIVING 8OZ ENSURE CLEAR TID PROVIDES 597CC FREE WATER
--- NOTE | 2020-12-17 13:07 | MHC.SL.SWA ---
Speech Pathologist Impression: Risk of Aspiration Oralpharyngeal Dysphagia Risk of Aspiration Due to: History of Pneumonia Dysphasia Diet Status: Downgrade Liquid Consistency and Strategies for Safe Swallow: Liquid Intake Recommendation: Thin Liquid Intake Strategies: Small Sips Solid Food Consistency: Dietary Recommendations: Pureed (NDD1) Additional Modifications to Solid Foods: Oral Medication Intake: Crushed with Puree Compensatory Strategies and Precautions to be Taken for Safe Swallow: Sitting Upright (90 deg) Small Bites and Sips Alternate Liquids/Solids Rate of Ingestion Change Supervision While Eating and Drinking for Safe Swallow: Intermittent Supervision Swallowing Recommended Treatments: Compens. Strategy Educat. Recommendation for Speech: Inpatient Speech Therapy Topographical Surveyor Clinican/Clinical Fellow: No Supervisory Statement: I have reviewed and agree with the student/clinical fellow's documentation: N/A Speech Language Pathologist: Anika Silva M.A., CCC-VAT WASHER
[2020-12-17] MEDS: traZODone HCL 25 MG HALFTAB PO (23:00)
[2020-12-17] MEDS: Benzonatate 100 MG CAPSULE PO (23:00)
[2020-12-18] VITALS (12 sets, daily range): BP systolic 96–157; BP diastolic 62–86; PULSE 80–110; RESP 15–23; TEMP 35.9–36.7; O2SAT 90–97
[2020-12-18] MEDS: LORazepam 1 MG TABLET PO (03:10)
[2020-12-18] MEDS: cefTRIAXone sodium 1 GM in 0.9 % Sodium Chloride 50 ML IV (08:16)
[2020-12-18] MEDS: 0.9 % Sodium Chloride Flush 3 ML SYRINGE IVFLUSH ×3 (08:17→21:11)
[2020-12-18] MEDS: Metoprolol Tartrate 50 MG TABLET 75 MG PO ×2 (08:21→21:11)
[2020-12-18] MEDS: Sodium Chloride Tab 1 GM TABLET PO ×2 (08:22→21:10)
[2020-12-18] MEDS: Flecainide Acetate 50 MG TABLET 150 MG PO ×2 (08:23→21:13)
[2020-12-18] MEDS: amLODIPine Besylate 5 MG TABLET PO (08:24)
[2020-12-18] MEDS: Magnesium Oxide 400 MG TABLET PO ×2 (08:24→17:49)
[2020-12-18] MEDS: Apixaban 5 MG TABLET PO ×2 (08:24→21:09)
[2020-12-18] MEDS: Azithromycin 500 MG in 0.9 % Sodium Chloride 250 ML 125 MG IV (09:02)
--- NOTE | 2020-12-18 10:29 | MHC.SL.SWA ---
Speech Pathologist Impression: Risk of Aspiration Oralpharyngeal Dysphagia Risk of Aspiration Due to: History of Pneumonia Dysphasia Diet Status: No Change Liquid Consistency and Strategies for Safe Swallow: Liquid Intake Recommendation: Thin Liquid Intake Strategies: Small Sips Solid Food Consistency: Dietary Recommendations: Pureed (NDD1) Oral Medication Intake: Crushed with Puree Compensatory Strategies and Precautions to be Taken for Safe Swallow: Sitting Upright (90 deg) Small Bites and Sips Alternate Liquids/Solids Rate of Ingestion Change Supervision While Eating and Drinking for Safe Swallow: Intermittent Supervision Swallowing Recommended Treatments: Compens. Strategy Educat. Recommendation for Speech: Inpatient Speech Therapy Microsoft Dynamics Developer Clinican/Clinical Fellow: No Supervisory Statement: I have reviewed and agree with the student/clinical fellow's documentation: N/A Speech Language Pathologist: Anika Silva M.A., CCC-SOCIAL WELFARE ADMINISTRATOR
[2020-12-18] MEDS: ondansetron HCL 4 MG/2 ML VIAL IVPUSH (10:38)
--- NOTE | 2020-12-18 11:50 | PM.EVENT ---
Event Note Date of Service: 12/18/20 Event Note: I saw and examined the patient on 12/17/20 and was discharging but raised concern of having trouble eating and swallowing and therefore discharge was cancelled and GI consultation obtained and Dr. Henok lambert scope on Monday, petra llanos for thi. Late entry note for 12/18
--- NOTE | 2020-12-18 11:57 | PM.DS ---
DS: Providers Provider Date of Service: 01/05/21 Date of admission: 12/13/20 16:46 Primary care physician: Unknown Physician Consults: 12/13/20 16:46 Consult to Nephrology Routine Consulting Provider: Karri Monahan Reason for consultation: Acute hyponatremia DS: Diagnosis Discharge Diagnosis (1) Acute hyponatremia: Status: Acute DS: Medications Discharge Medications Home Medications: Home Medications Medication Instructions Recorded Confirmed lorazepam 1 tab PO BID PRN 11/18/20 12/13/20 omeprazole 1 cap PO BID 11/18/20 12/13/20 simvastatin 1 tab PO DAILY 11/18/20 12/13/20 Previous Rx's Medication Instructions Recorded apixaban 5 mg tablet 5 mg PO BID 30 Days #60 tab 10/13/20 amlodipine 5 mg PO DAILY #30 tab 11/26/20 flecainide 150 mg PO BID #180 tab 11/26/20 magnesium oxide 400 mg PO BIDPC #60 tab 11/26/20 metoprolol tartrate 75 mg PO BID #90 tab 11/26/20 DS: Summary Hospital Course Hospital Course: Chief Complaint: Increased weakness, near falls, vomiting 75-year-old female with past medical history of hypertension hyperlipidemia, anxiety, AFib on Eliquis, chronic back pain status post surgery presented hospital a chief complaint of increased weakness, multiple episodes of nausea and vomiting and feeling shortness of breath and with dyspnea on exertion. The patient reports that since she left the hospital treated in feels she is back normal as she felt she is generally weak and that continue to worsen over the last few days associated with dyspnea on exertion. For the last 3 days she was having episodes nausea and vomiting. She noticed that her lower extremities are getting swollen. Denies any fever, chills, chest pain, palpitation, cough or urinary symptoms. The patient does have sleep apnea and has not been wearing her CPAP machine at night. Hospital course: 75-year-old female with past medical history of hypertension hyperlipidemia, anxiety, AFib on Eliquis, chronic back pain status post surgery presented hospital a chief complaint of increased weakness, multiple episodes of nausea and vomiting and feeling shortness of breath and with dyspnea on exertion. Acute hyponatremia--related to heart failure, Given urea, salt tablet, fluid restriction Nephrology following, not sure what next is afib flecainide, lopressor, eliquis Tele monitoring Nausea vomiting--likely related to low sodium and seem to have resolved Zofran as needed acute diastolic chf right sided dysfunction and mild pulm htn Elevated BNP, CXR showing effusion Received Lasix in the emergency presently seemd compensated Now off lasix Atelectasis Along with coughing, she likely has micro aspiration, no indication for antibiotics at this time etoh dependence CIWA hypertension Continue amlodipine and metoprolol Monitor blood pressure Metabolic Alkalosis that is getting worse and no longer on diuretics--? need for Diamox will check with nephrology Dyphagia--speech eval Time Spent with Patient Time attestation: Total time spent providing and/or coordinating discharge services: Discharge coordination time: Greater than 30 minutes Quality: Stroke Does the patient have a stroke diagnosis?: No Physical Exam Vital Signs: Vital Signs: Last Vital Signs Temp 96.7 F L 12/18/20 11:17 Pulse 99 12/18/20 11:17 Resp 22 H 12/18/20 11:17 BP 106/66 12/18/20 11:28 Pulse Ox 93 12/18/20 11:28 Oxygen Flow Rate 2 12/13/20 10:47 Body Mass Index 38.7 DS: Data Data Completed and Pending Completed studies during hospitalization [Text1]: Procedures Insertion of Infusion Device into Right Cephalic Vein, Percutaneous Approach (11/17/20) Yazidism of Cardiac Rhythm, Single (11/17/20) Discharge Plan Discharge Patient Disposition: [facility] Discharge Diagnosis: HypOnatremia and heart failure Referrals: [facility] [Outside] - 1 Week Physician,Unknown [Primary Care Provider] - 1 Week Discharge Medications: Continued Eliquis 5 mg tablet 5 mg PO BID 30 Days Qty: 60 RF: 0 simvastatin 10 mg tablet 1 tab PO DAILY RF: 0 omeprazole 20 mg capsule,delayed release(DR/EC) 1 cap PO BID RF: 0 lorazepam 1 mg tablet 1 tab PO BID PRN (Reason: Anxiety) RF: 0 metoprolol tartrate 50 mg Tablet 75 mg PO BID Qty: 90 RF: 0 amlodipine 5 mg Tablet 5 mg PO DAILY Qty: 30 RF: 0 flecainide 50 mg Tablet 150 mg PO BID Qty: 180 RF: 0 magnesium oxide 400 mg (241.3 mg magnesium) Tablet 400 mg PO BIDPC Qty: 60 RF: 0 Discharge Orders: Discharge Order (Routine); Ordered 12/18/20 Ordered By: Davis Patterson Diet: advance to usual diet Activity on Discharge: As tolerated Stand Alone Forms: Patient Portal Discharge page Care Plan Goals: Prevent rehospitalization Health Concerns: HypOnatremia and heart failure Plan of Treatment: fluid restriction of about 1000 cc a day and follow up with your Doctor in a week Assessment: See above
--- NOTE | 2020-12-18 11:58 | HO.PM.IMPN ---
Subjective Subjective Date of Service: 12/18/20 Interval History: Seen in f/u for hyponatremia, sodium is now 13, bicab remains high at 45, she is having some dysphagia and coughing with food Review of Systems No fever, chills what increased generalized weakness No chest pain, palpitation Reporting dyspnea on exertion shortness of breath with minimal coughing No abdominal pain but reporting nausea or vomiting No urinary symptoms No any rash or wounds Physical Exam Vital Signs: Vital Signs: Last Vital Signs Temp 96.7 F L 12/18/20 11:17 Pulse 99 12/18/20 11:17 Resp 22 H 12/18/20 11:17 BP 106/66 12/18/20 11:28 Pulse Ox 93 12/18/20 11:28 Oxygen Flow Rate 2 12/13/20 10:47 Body Mass Index 38.7 Const: Other: Constitutional : Alert, oriented, in mild respiratory distress Neck : Normal inspection, Supple Cardiovascular : Irregular irregular, S1 S2, +1 lower extremity edema Respiratory : Decreased bilateral air entry, basal fine crackles, wheezes or rhonchi Gastrointestinal: soft, lax, Normal bowel sounds, Non tender Skin : Warm/Dry, No rash Neurological : Alert & oriented x3, No focal deficit Objective Data Current Medications Generic Name Dose Route Start Last Admin Trade Name Freq PRN Reason Stop Dose Admin Acetaminophen 650 mg 12/13/20 16:49 Acetaminophen 325 Mg Tablet PO Q6H PRN Pain, Mild (Pain Scale 1-3) Amlodipine Besylate 5 mg 12/14/20 09:00 12/18/20 08:24 Amlodipine Besylate 5 Mg Tablet PO 5 mg DAILY DEE Administration Protocol Apixaban 5 mg 12/13/20 21:00 12/18/20 08:24 Apixaban 5 Mg Tablet PO 5 mg BID DEE Administration Benzonatate 100 mg 12/17/20 21:12 12/17/20 23:00 Benzonatate 100 Mg Capsule PO 100 mg TID PRN Administration Cough Flecainide Acetate 150 mg 12/13/20 21:00 12/18/20 08:23 Flecainide Acetate 50 Mg Tablet PO 150 mg BID DEE Administration Ceftriaxone Sodium 1 gm/ 50 mls @ 100 mls/hr 12/14/20 08:30 12/18/20 08:59 Sodium Chloride IV Infused Q24H DEE Infusion Azithromycin 500 mg/ Sodium 250 mls @ 125 mls/hr 12/14/20 10:00 12/18/20 11:11 Chloride IV Infused Q24H DEE Infusion Lorazepam 1 mg 12/13/20 16:49 12/18/20 03:10 Lorazepam 1 Mg Tablet PO 1 mg BID PRN Administration Anxiety Magnesium Oxide 400 mg 12/13/20 17:30 12/18/20 08:24 Magnesium Oxide 400 Mg Tablet PO 400 mg BIDPC DEE Administration Metoprolol Tartrate 75 mg 12/13/20 21:00 12/18/20 08:21 Metoprolol Tartrate 50 Mg Tablet PO 75 mg BID DEE Administration Protocol Omeprazole 20 mg 12/17/20 16:30 12/18/20 05:43 Omeprazole 20 Mg/10 Ml Susp.Recon PO 20 mg BID@0630,1630 DEE Administration Ondansetron HCl 4 mg 12/13/20 16:49 12/18/20 10:38 Ondansetron Hcl 4 Mg/2 Ml Vial IVPUSH 4 mg Q8H PRN Administration Nausea and Vomiting Sodium Chloride 1 gm 12/13/20 16:46 12/18/20 08:22 Sodium Chloride Tab 1 Gm Tablet PO 1 gm BID DEE Administration Sodium Chloride 3 ml 12/14/20 00:00 12/18/20 08:17 0.9 % Sodium Chloride Flush 3 Ml Syringe IVFLUSH 3 ml QSHIFT DEE Administration Trazodone HCl 25 mg 12/14/20 21:20 12/17/20 23:00 Trazodone Hcl 25 Mg Halftab PO 25 mg BEDTIME PRN Administration Insomnia Labs CBC & Chem 7: 12/14/20 04:29 12/17/20 08:25 Assessment and Plan (1) Acute hyponatremia: Status: Acute Assessment and Plan: 75-year-old female with past medical history of hypertension hyperlipidemia, anxiety, AFib on Eliquis, chronic back pain status post surgery presented hospital a chief complaint of increased weakness, multiple episodes of nausea and vomiting and feeling shortness of breath and with dyspnea on exertion. Acute hyponatremia--related to heart failure, Given urea, salt tablet, fluid restriction Nephrology following, not sure what next is afib flecainide, lopressor, eliquis Tele monitoring Nausea vomiting--likely related to low sodium and seem to have resolved Zofran as needed acute diastolic chf right sided dysfunction and mild pulm htn Elevated BNP, CXR showing effusion Received Lasix in the emergency presently seemd compensated Now off lasix Atelectasis Along with coughing, she likely has micro aspiration, no indication for antibiotics at this time etoh dependence CIWA hypertension Continue amlodipine and metoprolol Monitor blood pressure Metabolic Alkalosis that is getting worse and no longer on diuretics--? need for Diamox will check with nephrology Dyphagia--speech eval
--- NOTE | 2020-12-18 12:01 | MHC.CM.PN ---
Patient has been medically cleared for dc to home today, no services. IMM addressed with Patient, providing her with the original and a copy has been placed on the chart.
--- NOTE | 2020-12-18 12:12 | MHC.CM.PN ---
CM met with Patient regarding dc planning. Patient states that she feels sick to her stomach. MD is aware. CM addressed second IMM with Patient, providing her with the original and placing a copy on the chart.CM will follow.
--- NOTE | 2020-12-18 12:29 | MHC.CM.PN ---
Patient has been medically cleared for dc to home today. Patient was active with [facility] , who has been made aware of dc to home today. Second IMM addressed with Patient (see previous note).
--- NOTE | 2020-12-18 12:56 | P.PNNP_ITS ---
Subjective Subjective Date of Service: 01/05/21 Interval history: Seen in f/u for hyponatremia, sodium is now 13, bicab remains high at 45, she is having some dysphagia and coughing with food Physical Exam Vital Signs: Vital Signs: Last Vital Signs Temp 96.7 F L 12/18/20 11:17 Pulse 99 12/18/20 11:17 Resp 22 H 12/18/20 11:17 BP 106/66 12/18/20 11:28 Pulse Ox 93 12/18/20 11:28 Oxygen Flow Rate 2 12/13/20 10:47 Body Mass Index 38.7 Const: General: alert and awake Neck: Neck: Yes supple Resp: Auscultation: clear to auscultation bilaterally Cardio: Palpation: no palpable S3 and no palpable S4 Heart sounds: no murmurs and no rubs GI: Palpation (GI): Soft to palpation Auscultation: normal bowel sounds Neuro: General: no focal motor deficits Motor exam (neuro): No Asterixis during motor activity present Objective Data Labs CBC & Chem 7: 01/05/21 05:15 01/05/21 05:15 Assessment & Plan Assessment and plan (1) Acute hyponatremia: Status: Acute Assessment and Plan: 1) Acute hyponatremia: Problem details: Low urine sodium suggestive of hypoperfusion Keep I > O with isotonic fluids Check pNa q 24 hrs Elevated tCO2 - [place] Alkalosis vs resp acidosis - favor the former Check ABG and repeat urine Chloride Time Spent With Patient Time: Total time spent is greater than 50% in coordination of care (as documented) at patient's floor/unit and/or counseling patient:
--- NOTE | 2020-12-18 13:03 | MHC.CM.PN ---
After further discussion with Patient and with Patient's permission, with Daughter/Lorraine at [phone], referrals have been made to [facility]/STR. Case Management will follow.
--- NOTE | 2020-12-18 14:15 | MHC.CM.PN ---
CHANGE OF PLAN: Patient will be medically cleared for dc to SNF for STR today. Patient will dc to [facility] today at 5 PM, via [facility]. Patient and Daughter/Lorraine are aware of and in agreement with the dc plan.
[2020-12-18 14:35] LABS: COVID-19 Test Negative (Negative); IDNOW Serial# 9DD0AD1C
[2020-12-18 15:26] LABS: Anion Gap 10 (12-20); Blood Urea Nitrogen 15 mg/dL (9-16); Calcium 9.6 mg/dL (8.4-10.2); Carbon Dioxide 47 mmol/L (22-29); Chloride 82 mmol/L (96-108); Creatinine Clr Calc Pharmacy 90.7; Estimated Glomerular Filt Rate > 60; Glucose Random 129 mg/dL (60-115); Magnesium 1.8 mg/dL (1.6-2.6); Phosphorus 4.6 mg/dL (2.7-4.5); Potassium 5.2 mmol/L (3.3-5.1); Sodium 134 mmol/L (135-145)
--- NOTE | 2020-12-18 15:33 | MHC.CM.PN ---
DC for today is on hold r/t Patient's C/O difficulty swallowing. Per MD, Patient will need GI consult before dc.CM will continue to follow.
--- NOTE | 2020-12-18 16:13 | MHC.CM.PN ---
CORRECTION: Patient DOES use home O2, supplied by [facility].
--- NOTE | 2020-12-18 17:52 | PC.NURSE ---
PT CONTINUES TO HAVE ISSUES WITH SWALLOWING. ALL MEDS CONTINUED TO BE CRUSHED, FOODS PUREE AND THIN LIQUIDS. WET COUGH WITH COPIOUS AMOUNTS OF CLEAR SPUTUM NOTED. PT ABLE TO CLEAR AIRWAY.
[2020-12-18] MEDS: Benzonatate 100 MG CAPSULE PO (21:10)
[2020-12-18] MEDS: traZODone HCL 25 MG HALFTAB PO (22:44)
[2020-12-19] VITALS (8 sets, daily range): BP systolic 109–167; BP diastolic 65–75; PULSE 67–95; RESP 18–20; TEMP 36.2–37.1; O2SAT 91–97
[2020-12-19] MEDS: LORazepam 0.5 MG TABLET PO (04:03)
[2020-12-19] MEDS: Magnesium Oxide 400 MG TABLET PO ×2 (08:08→16:34)
[2020-12-19] MEDS: Sodium Chloride Tab 1 GM TABLET PO ×2 (08:09→20:30)
[2020-12-19] MEDS: Flecainide Acetate 50 MG TABLET 150 MG PO ×2 (08:10→20:29)
[2020-12-19] MEDS: Metoprolol Tartrate 50 MG TABLET 75 MG PO ×2 (08:11→20:30)
[2020-12-19] MEDS: amLODIPine Besylate 5 MG TABLET PO (08:11)
[2020-12-19] MEDS: 0.9 % Sodium Chloride Flush 3 ML SYRINGE IVFLUSH ×2 (08:12→16:34)
[2020-12-19] MEDS: cefTRIAXone sodium 1 GM in 0.9 % Sodium Chloride 50 ML IV (08:36)
[2020-12-19] MEDS: Azithromycin 500 MG in 0.9 % Sodium Chloride 250 ML 125 MG IV (09:07)
[2020-12-19] MEDS: ondansetron HCL 4 MG/2 ML VIAL IVPUSH (09:52)
--- NOTE | 2020-12-19 11:52 | HO.PM.IMPN ---
Subjective Subjective Date of Service: 12/19/20 Interval History: Seen in f/u for hyponatermia and heart failure. Hyponatremia has resolved, but she's now complaining of difficulty swallowing both liquids and solid, she has history of throat cancer Review of Systems Difficulty swallowing Gurgly sound in the throat Physical Exam Vital Signs: Vital Signs: Last Vital Signs Temp 97.5 F 12/19/20 11:07 Pulse 67 12/19/20 11:07 Resp 18 12/19/20 11:07 BP 112/73 12/19/20 11:07 Pulse Ox 94 12/19/20 11:07 Oxygen Flow Rate 2 12/13/20 10:47 Body Mass Index 38.7 Constitutional Awake and Alert, No apparent distress Neck Supple, No lymphadenopathy Cardiovascular RRR, No M/R/G, S1 S2, No S3 S4, No pedal edema Respiratory Lungs clear, No respiratory distress Gastrointestinal Non tender, Non-distended Skin No rash Neurological Alert & oriented x3 Psychological Appropriate affect Objective Data Current Medications Generic Name Dose Route Start Last Admin Trade Name Shubhamq PRN Reason Stop Dose Admin Acetaminophen 650 mg 12/13/20 16:49 Acetaminophen 325 Mg Tablet PO Q6H PRN Pain, Mild (Pain Scale 1-3) Amlodipine Besylate 5 mg 12/14/20 09:00 12/19/20 08:11 Amlodipine Besylate 5 Mg Tablet PO 5 mg DAILY DEE Administration Protocol Apixaban 5 mg 12/13/20 21:00 12/19/20 08:39 Apixaban 5 Mg Tablet PO Not Given BID DEE Benzonatate 100 mg 12/17/20 21:12 12/18/20 21:10 Benzonatate 100 Mg Capsule PO 100 mg TID PRN Administration Cough Flecainide Acetate 150 mg 12/13/20 21:00 12/19/20 08:10 Flecainide Acetate 50 Mg Tablet PO 150 mg BID DEE Administration Ceftriaxone Sodium 1 gm/ 50 mls @ 100 mls/hr 12/14/20 08:30 12/19/20 09:07 Sodium Chloride IV Infused Q24H DEE Infusion Azithromycin 500 mg/ Sodium 250 mls @ 125 mls/hr 12/14/20 10:00 12/19/20 11:08 Chloride IV Infused Q24H DEE Infusion Magnesium Oxide 400 mg 12/13/20 17:30 05/15/21 08:08 Magnesium Oxide 400 Mg Tablet PO 400 mg BIDPC DEE Administration Metoprolol Tartrate 75 mg 12/13/20 21:00 12/19/20 08:11 Metoprolol Tartrate 50 Mg Tablet PO 75 mg BID DEE Administration Protocol Omeprazole 20 mg 12/17/20 16:30 12/19/20 05:22 Omeprazole 20 Mg/10 Ml Susp.Recon PO 20 mg BID@0630,1630 DEE Administration Ondansetron HCl 4 mg 12/13/20 16:49 12/19/20 09:52 Ondansetron Hcl 4 Mg/2 Ml Vial IVPUSH 4 mg Q8H PRN Administration Nausea and Vomiting Sodium Chloride 1 gm 12/13/20 16:46 12/19/20 08:09 Sodium Chloride Tab 1 Gm Tablet PO 1 gm BID DEE Administration Sodium Chloride 3 ml 12/14/20 00:00 12/19/20 08:12 0.9 % Sodium Chloride Flush 3 Ml Syringe IVFLUSH 3 ml QSHIFT DEE Administration Trazodone HCl 25 mg 12/14/20 21:20 12/18/20 22:44 Trazodone Hcl 25 Mg Halftab PO 25 mg BEDTIME PRN Administration Insomnia Labs CBC & Chem 7: 12/14/20 04:29 12/18/20 14:27 Assessment and Plan (1) Acute hyponatremia: Status: Acute Assessment and Plan: 75-year-old female with past medical history of hypertension hyperlipidemia, anxiety, AFib on Eliquis, chronic back pain status post surgery presented hospital a chief complaint of increased weakness, multiple episodes of nausea and vomiting and feeling shortness of breath and with dyspnea on exertion. Acute hyponatremia--related to heart failure, Treated with urea, salt tab and fluid restriction and has resolved. Nephrology following--sodium has stabilized around 133 AFIB flecainide, lopressor, eliquis (hold until EGD monday) Tele monitoring Nausea vomiting--improved, likely related to low sodium acute diastolic chf right sided dysfunction and mild pulm htn Elevated BNP, CXR showing effusion Received Lasix in the emergency presently seemd compensated Now off lasix Atelectasis Along with coughing, she likely has micro aspiration, no indication for antibiotics at this time Etoh dependence CIWA, no signs of withdrawal hypertension Continue amlodipine and metoprolol Monitor blood pressure Metabolic Alkalosis that is getting worse and no longer on diuretics--? need for Diamox will check with nephrology Dyphagia--concern for stricture, recurrent throat cancer--EGD Monday
[2020-12-19 13:38] LABS: Anion Gap 9 (12-20); Blood Urea Nitrogen 20 mg/dL (9-16); Calcium 9.1 mg/dL (8.4-10.2); Carbon Dioxide 46 mmol/L (22-29); Chloride 83 mmol/L (96-108); Creatinine Clr Calc Pharmacy 88.1; Estimated Glomerular Filt Rate > 60; Glucose Random 117 mg/dL (60-115); Potassium 5.3 mmol/L (3.3-5.1); Sodium 133 mmol/L (135-145)
--- NOTE | 2020-12-19 13:55 | PM.PNNEP ---
Subjective Subjective Date of Service: 12/19/20 Interval history: Seen and examined lethargic poor oral intake Physical Exam Vital Signs: Vital Signs: Last Vital Signs Temp 97.5 F 12/19/20 11:07 Pulse 67 12/19/20 11:07 Resp 18 12/19/20 11:07 BP 112/73 12/19/20 11:07 Pulse Ox 94 12/19/20 11:07 Oxygen Flow Rate 2 12/13/20 10:47 Body Mass Index 38.7 Const: General: no acute distress HENMT: Head: Yes normocephalic and Yes atraumatic Neck: Neck: Yes supple Resp: Auscultation: diminished lung sounds Cardio: Heart sounds: S1 normal heart sound present and S2 normal heart sound present GI: Palpation (GI): Soft to palpation and nontender Extrem: General: No pedal edema Objective Data Labs CBC & Chem 7: 12/14/20 04:29 12/19/20 12:46 Labs: Laboratory Results - last 24 hr 12/18/20 12/18/20 12/19/20 14:09 14:27 12:46 Sodium 134 L 133 L Potassium 5.2 H 5.3 H Chloride 82 L 83 L Carbon Dioxide 47 H* 46 H* Anion Gap 10 L 9 L BUN 15 20 H Creatinine 0.69 0.71 Estim Creat Clear Calc 90.7 88.1 Estimated GFR > 60 > 60 Random Glucose 129 H 117 H Calcium 9.6 9.1 Phosphorus 4.6 H Magnesium 1.8 COVID-19 ([facility]) Negative COVID-19 Clin Com See Note Assessment & Plan Assessment and plan (1) Hyponatremia: Status: Acute (2) Hyperkalemia: Status: Acute (3) Metabolic alkalosis: Status: Acute (4) Heart failure with preserved ejection fraction: Status: Acute Assessment and Plan: serum sodium overall improved elevated serum potassium due to impaired distal flow known diastolic HF volume status close to dry weight saline responsive metabolic alkalosis urine chloride < 40 REC discontinue sodium chloride tablets hold furosemide and diuretics fluid restriction follow kidney function and electrolytes Time Spent With Patient Time: Total time spent is greater than 50% in coordination of care (as documented) at patient's floor/unit and/or counseling patient:
[2020-12-19] MEDS: traZODone HCL 25 MG HALFTAB PO (22:56)
[2020-12-20] VITALS (10 sets, daily range): BP systolic 111–158; BP diastolic 62–82; PULSE 72–99; RESP 18–20; TEMP 36.2–37.1; O2SAT 93–98
[2020-12-20] MEDS: 0.9 % Sodium Chloride Flush 3 ML SYRINGE IVFLUSH ×3 (00:12→20:42)
[2020-12-20] MEDS: LORazepam 0.5 MG TABLET PO (03:34)
--- NOTE | 2020-12-20 07:43 | PM.GICN ---
History of Present Illness Data of Consult Service Date: 12/20/20 Requesting physician: Davis Patterson Primary Care Provider: Unknown Physician HPI Reason for consult: dysphagia 75-year-old female with history of hypertension, hyperlipidemia, anxiety, AFib on Eliquis, chronic back pain status post surgery, throat cancer, ANITA, CHF who I am asked to see for dysphagia. She initially presented presented with chief complaint of increased weakness, multiple episodes of nausea and vomiting and feeling shortness of breath with dyspnea on exertion as well as fluid retention and swelling of legs. Denies any fever, chills, chest pain, palpitation, cough or urinary symptoms. She was noted to be hyponatremic on admission with Na 120, this has improved. However she is now c/o trouble swallowing, and couhging with foods. She does admit this may be a chronic problem going back to her hx of throat cancer. Mostly it is solids which feel getting stuck in upper throat, fluids ae usu ok, she denies nasal regurgitation or acid reflux. She did have an EGD and colonoscopy 2014 with hypeprlastic and fundal gland polyps noted, diverticulosis no other concerning findings. Indication for EGD per note was dysphgia. Review of Systems Review of Systems: Constitutional : No Weight loss, No Fever, No Chills ENT/Mouth : No sore throat, No Rhinorrhea Eyes: No Swelling, No Redness Cardiovascular : No Chest Pain, No SOB, No Edema Respiratory : No Cough, No Sputum, No Wheezing Gastrointestinal : see HPI Genitourinary : NO Dysuria, No Urinary Frequency, No Hematuria, No Urgency Musculoskeletal : No joint pain, No Myalgias, No Joint Swelling Skin : No Skin Lesions, No rash Neuro : No Weakness, No Numbness, No Dizziness, No Headache Psych : No Anxiety/Panic, No Depression Heme/Lymph: No Bruising, No Lymphadenopathy Endocrine : No Polyuria, No Polydipsia All other systems reviewed and are negative. 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 If so, by whom?: No Do you feel safe in your current relationship?: No Current Relationship Is there a partner from a previous relationship who is making you feel unsafe now?: No Are you made to feel afraid or neglected: No Advance Directives: No Advance Directives Information Provided: No Do you have thoughts of harming others: None Do you have a plan to hurt others: No Plan Recently lost weight without trying: No Eating poorly because of decreased appetite: No Nutrition Risks: No Nutritional Risk service: No Current occupational status: disabled Meds Allergies Allergy/AdvReac Type Severity Reaction Status Date / Time SEASONAL ALLERGIES Allergy Unknown SNEEZING Uncoded 04/23/20 15:17 RUNNY NOSE Active Medications: Current Medications Generic Name Dose Route Start Last Admin Trade Name Freq PRN Reason Stop Dose Admin Acetaminophen 650 mg 12/13/20 16:49 Acetaminophen 325 Mg Tablet PO Q6H PRN Pain, Mild (Pain Scale 1-3) Amlodipine Besylate 5 mg 12/14/20 09:00 12/19/20 08:11 Amlodipine Besylate 5 Mg Tablet PO 5 mg DAILY DEE Administration Protocol Benzonatate 100 mg 12/17/20 21:12 12/18/20 21:10 Benzonatate 100 Mg Capsule PO 100 mg TID PRN Administration Cough Flecainide Acetate 150 mg 12/13/20 21:00 12/19/20 20:29 Flecainide Acetate 50 Mg Tablet PO 150 mg BID DEE Administration Magnesium Oxide 400 mg 12/13/20 17:30 12/19/20 16:34 Magnesium Oxide 400 Mg Tablet PO 400 mg BIDPC DEE Administration Metoprolol Tartrate 75 mg 12/13/20 21:00 12/19/20 20:30 Metoprolol Tartrate 50 Mg Tablet PO 75 mg BID DEE Administration Protocol Omeprazole 20 mg 12/17/20 16:30 12/20/20 05:30 Omeprazole 20 Mg/10 Ml Susp.Recon PO 20 mg BID@0630,2130 DEE Administration Ondansetron HCl 4 mg 12/13/20 16:49 12/19/20 09:52 Ondansetron Hcl 4 Mg/2 Ml Vial IVPUSH 4 mg Q8H PRN Administration Nausea and Vomiting Sodium Chloride 1 gm 12/13/20 16:46 12/19/20 20:30 Sodium Chloride Tab 1 Gm Tablet PO 1 gm BID DEE Administration Sodium Chloride 3 ml 12/14/20 00:00 12/20/20 00:12 0.9 % Sodium Chloride Flush 3 Ml Syringe IVFLUSH 3 ml QSHIFT DEE Administration Trazodone HCl 25 mg 12/14/20 21:20 12/19/20 22:56 Trazodone Hcl 25 Mg Halftab PO 25 mg BEDTIME PRN Administration Insomnia Home Medications Medication Instructions Recorded Confirmed Last Taken Type lorazepam 1 tab PO BID PRN 11/18/20 12/13/20 Unknown History omeprazole 1 cap PO BID 11/18/20 12/13/20 Unknown History simvastatin 1 tab PO DAILY 11/18/20 12/13/20 Unknown History Physical Exam Vital Signs: Vital Signs: Last Vital Signs Temp 97.2 F 12/20/20 07:36 Pulse 97 12/20/20 07:36 Resp 18 12/20/20 07:36 BP 153/71 H 12/20/20 07:36 Pulse Ox 98 12/20/20 07:36 Oxygen Flow Rate 2 12/13/20 10:47 Body Mass Index 38.7 Const: General: cooperative, no acute distress, alert and awake Orientation/consciousness: oriented to person and oriented to place Limitations: no limitations HENMT: Head: Yes normocephalic and Yes atraumatic Ears: external ears normal General nose exam: Normal external nose present Face and sinus: Yes other (Facial edema as noted above) Mouth: Normal oral and palatal mucosa present Throat: Yes posterior oropharynx normal Eyes: Conjunctivae: conjunctivae normal Sclerae: sclerae normal Corneas: corneas normal Pupils: Equal, round and reactive pupils present Direct Ophthalmoscopy: normal light reflex Neck: Neck: Yes full ROM, Yes no lymphadenopathy, Yes no meningeal signs, Yes trachea midline and Yes supple Chest: Chest palpation & inspection: normal inspection of the chest and normal palpation of entire chest wall Resp: Effort & Inspection: normal respiratory effort and able to speak in complete sentences Auscultation: clear to auscultation bilaterally, rales bilateral in the lower lung carrizales and diminished lung sounds Cardio: Palpation: no palpable S3 and no palpable S4 Rhythm: regular rhythm and abnormal rhythm irregularly irregular Heart sounds: S1 normal heart sound present, S2 normal heart sound present, no murmurs and no rubs GI: Inspection: Yes normal to inspection Palpation (GI): Soft to palpation, nontender, no guarding, not rigid and No hepatosplenomegaly present Auscultation: normal bowel sounds : General: Yes no CVA tenderness Back/Spine/Pelvis: Back: no CVA tenderness Cervical Spine: normal cervical lordosis Thoracic/Lumbar Spine: thoracic and lumbar spine normal to inspection Skin: Lesions: no lesions Rashes: no rashes Wounds: no wounds Neuro: General: oriented to person, oriented to place, no meningeal signs and no focal motor deficits Cranial nerves: Yes CN's II-XII intact bilaterally and Yes Equal, round and reactive pupils present Cognition (Neuro): normal cognition Motor exam (neuro): 5/5 motor strength present throughout and No Asterixis during motor activity present Extrem: General: Yes normal to inspection, Yes full ROM and No pedal edema Psych: Appearance: well kempt Mental Status: mental status grossly normal Speech and movement: Normal speech and movement present Affect: normal affect Attitude: cooperative Thought process: Normal thought process present Thought content: Normal thought content present Results Labs CBC & Chem 7: 12/14/20 04:29 12/20/20 10:33 Labs: BMP 12/19/20 12:46 Sodium 133 L Potassium 5.3 H Chloride 83 L Carbon Dioxide 46 H* BUN 20 H Creatinine 0.71 Calcium 9.1 Assessment and Plan (1) Dysphagia: Status: Acute She may have a fibrotic stricture from her prior treatment for head and neck cancer, or esophagitis and GERD damage with peptic stricture, oral pharyngeal dysphagia from nerve damage also possible. Plan: // EGD tomorrow for evaluation with possible dilation--apixiban already stopped Monday
[2020-12-20] MEDS: amLODIPine Besylate 5 MG TABLET PO (08:55)
[2020-12-20] MEDS: Magnesium Oxide 400 MG TABLET PO ×2 (08:55→16:29)
[2020-12-20] MEDS: Sodium Chloride Tab 1 GM TABLET PO (08:55)
[2020-12-20] MEDS: Metoprolol Tartrate 50 MG TABLET 75 MG PO ×2 (08:55→20:41)
[2020-12-20] MEDS: Flecainide Acetate 50 MG TABLET 150 MG PO ×2 (08:56→20:40)
--- NOTE | 2020-12-20 09:45 | PM.PNNEP ---
Subjective Subjective Date of Service: 12/20/20 Interval history: Seen and examined no complain this aidee Physical Exam Vital Signs: Vital Signs: Last Vital Signs Temp 97.2 F 12/20/20 07:36 Pulse 97 12/20/20 08:56 Resp 18 12/20/20 07:36 BP 153/71 H 12/20/20 08:56 Pulse Ox 98 12/20/20 07:36 Oxygen Flow Rate 2 12/13/20 10:47 Body Mass Index 38.7 Const: General: no acute distress HENMT: Head: Yes normocephalic and Yes atraumatic Neck: Neck: Yes supple Resp: Auscultation: diminished lung sounds Cardio: Heart sounds: S1 normal heart sound present and S2 normal heart sound present GI: Palpation (GI): Soft to palpation and nontender Extrem: General: Yes edema Objective Data Labs CBC & Chem 7: 12/14/20 04:29 12/19/20 12:46 Labs: Laboratory Results - last 24 hr 12/19/20 12:46 Sodium 133 L Potassium 5.3 H Chloride 83 L Carbon Dioxide 46 H* Anion Gap 9 L BUN 20 H Creatinine 0.71 Estim Creat Clear Calc 88.1 Estimated GFR > 60 Random Glucose 117 H Calcium 9.1 Assessment & Plan Assessment and plan (1) Hyponatremia: Status: Acute (2) Hyperkalemia: Status: Acute (3) Metabolic alkalosis: Status: Acute (4) Heart failure with preserved ejection fraction: Status: Acute Assessment and Plan: serum sodium improved elevated serum potassium due to impaired distal flow known diastolic HF volume status close to dry weight saline responsive metabolic alkalosis urine chloride < 40 REC no need for sodium chloride tablets hold furosemide allow to self expand volume status continue fluid restriction follow kidney function and electrolytes Time Spent With Patient Time: Total time spent is greater than 50% in coordination of care (as documented) at patient's floor/unit and/or counseling patient:
[2020-12-20 11:25] LABS: Anion Gap 11 (12-20); Blood Urea Nitrogen 21 mg/dL (9-16); Calcium 9.2 mg/dL (8.4-10.2); Carbon Dioxide 47 mmol/L (22-29); Chloride 83 mmol/L (96-108); Creatinine Clr Calc Pharmacy 90.7; Estimated Glomerular Filt Rate > 60; Glucose Random 143 mg/dL (60-115); Sodium 136 mmol/L (135-145)
--- NOTE | 2020-12-20 11:57 | HO.PM.IMPN ---
Subjective Subjective Date of Service: 12/20/20 Interval History: Seen in f/u for hyponatermia and heart failure. Hyponatremia has resolved, but she's now complaining of difficulty swallowing both liquids and solid, she has history of throat cancer Review of Systems Difficulty swallowing Gurgly sound in the throat Physical Exam Vital Signs: Vital Signs: Last Vital Signs Temp 97.2 F 12/20/20 07:36 Pulse 97 12/20/20 08:56 Resp 18 12/20/20 07:36 BP 153/71 H 12/20/20 08:56 Pulse Ox 98 12/20/20 07:36 Oxygen Flow Rate 2 12/13/20 10:47 Body Mass Index 38.7 Constitutional Awake and Alert, No apparent distress Neck Supple, No lymphadenopathy Cardiovascular RRR, No M/R/G, S1 S2, No S3 S4, 1+ pedal edam Respiratory rhonchi Gastrointestinal Non tender, Non-distended Skin No rash Neurological Alert & oriented x3 Psychological Appropriate affect Objective Data Current Medications Generic Name Dose Route Start Last Admin Trade Name Shubhamq PRN Reason Stop Dose Admin Acetaminophen 650 mg 12/13/20 16:49 Acetaminophen 325 Mg Tablet PO Q6H PRN Pain, Mild (Pain Scale 1-3) Amlodipine Besylate 5 mg 12/14/20 09:00 12/20/20 08:55 Amlodipine Besylate 5 Mg Tablet PO 5 mg DAILY DEE Administration Protocol Benzonatate 100 mg 12/17/20 21:12 12/18/20 21:10 Benzonatate 100 Mg Capsule PO 100 mg TID PRN Administration Cough Flecainide Acetate 150 mg 12/13/20 21:00 12/20/20 08:56 Flecainide Acetate 50 Mg Tablet PO 150 mg BID DEE Administration Lorazepam 0.5 mg 12/20/20 10:20 Lorazepam 2 Mg/Ml Vial IM Q6H PRN Anxiety Magnesium Oxide 400 mg 12/13/20 17:30 12/20/20 08:55 Magnesium Oxide 400 Mg Tablet PO 400 mg BIDPC DEE Administration Metoprolol Tartrate 75 mg 12/13/20 21:00 12/20/20 08:55 Metoprolol Tartrate 50 Mg Tablet PO 75 mg BID DEE Administration Protocol Omeprazole 20 mg 12/17/20 16:30 12/20/20 05:30 Omeprazole 20 Mg/10 Ml Susp.Recon PO 20 mg BID@0630,1630 DEE Administration Ondansetron HCl 4 mg 12/13/20 16:49 12/19/20 09:52 Ondansetron Hcl 4 Mg/2 Ml Vial IVPUSH 4 mg Q8H PRN Administration Nausea and Vomiting Sodium Chloride 3 ml 12/14/20 00:00 12/20/20 08:36 0.9 % Sodium Chloride Flush 3 Ml Syringe IVFLUSH 3 ml QSHIFT DEE Administration Trazodone HCl 25 mg 12/14/20 21:20 12/19/20 22:56 Trazodone Hcl 25 Mg Halftab PO 25 mg BEDTIME PRN Administration Insomnia Labs CBC & Chem 7: 12/14/20 04:29 12/20/20 10:33 Assessment and Plan (1) Acute hyponatremia: Status: Acute Assessment and Plan: 75-year-old female with past medical history of hypertension hyperlipidemia, anxiety, AFib on Eliquis, chronic back pain status post surgery presented hospital a chief complaint of increased weakness, multiple episodes of nausea and vomiting and feeling shortness of breath and with dyspnea on exertion. Acute hyponatremia--related to heart failure, Treated with urea, salt tab and fluid restriction and has resolved. Nephrology following--sodium level now normal at 136 DC salt tab, continue fluid restriction, restart diuretics tomorrow AFIB flecainide, lopressor, eliquis (hold until EGD monday) no furrther need for tele monitoring Nausea vomiting--improved, likely related to low sodium and acute diastolic chf right sided dysfunction and mild pulm htn Elevated BNP, CXR showing effusion Received Lasix in the emergency presently seemd compensated continue holding lasix for now, repeat BNP tomorrown and restart Lasix Atelectasis Along with coughing, she likely has micro aspiration, no indication for antibiotics at this time Etoh dependence CIWA, no signs of withdrawal hypertension Continue amlodipine and metoprolol Monitor blood pressure Metabolic Alkalosis that is getting worse and no longer on diuretics--? need for Diamox will check with nephrology Dyphagia--concern for stricture, recurrent throat cancer--EGD Monday, Hold Eliquis. Puree diet
[2020-12-20] MEDS: traZODone HCL 25 MG HALFTAB PO (23:09)
[2020-12-21] VITALS (10 sets, daily range): BP systolic 125–161; BP diastolic 65–96; PULSE 97–107; RESP 18–22; TEMP 36.1–36.8; O2SAT 90–99; BMI 39.2
[2020-12-21] MEDS: LORazepam 0.5 MG TABLET PO (02:54)
[2020-12-21 07:04] LABS: B Type Natriuretic Peptide 962 pg/mL (<100)
[2020-12-21 07:38] LABS: Anion Gap 13 (12-20); Blood Urea Nitrogen 21 mg/dL (9-16); Calcium 9.4 mg/dL (8.4-10.2); Carbon Dioxide 45 mmol/L (22-29); Chloride 83 mmol/L (96-108); Creatinine Clr Calc Pharmacy 93.4; Estimated Glomerular Filt Rate > 60; Glucose Random 98 mg/dL (60-115); Potassium 5.4 mmol/L (3.3-5.1); Sodium 136 mmol/L (135-145)
[2020-12-21] MEDS: 0.9 % Sodium Chloride Flush 3 ML SYRINGE IVFLUSH ×3 (08:11→22:18)
[2020-12-21] MEDS: Flecainide Acetate 50 MG TABLET 150 MG PO ×2 (08:11→22:17)
[2020-12-21] MEDS: Magnesium Oxide 400 MG TABLET PO ×2 (08:12→17:25)
[2020-12-21] MEDS: Metoprolol Tartrate 50 MG TABLET 75 MG PO ×2 (08:12→22:16)
[2020-12-21] MEDS: amLODIPine Besylate 5 MG TABLET PO (08:12)
[2020-12-21] MEDS: Benzonatate 100 MG CAPSULE PO (08:16)
--- NOTE | 2020-12-21 08:55 | MHC.SHP ---
Pre-Procedural Eval Section A The patient is an INPATIENT: Yes The History & Physical has been completed within 30 days and I have reviewed it.: Yes Section B Chief Complaint: Acute Hyponatremia, Chf Allergies: Allergies Allergy/AdvReac Type Severity Reaction Status Date / Time SEASONAL ALLERGIES Allergy Unknown SNEEZING Uncoded 04/23/20 15:17 RUNNY NOSE Plan Diagnosis/Plan: Unchanged I have reviewed the history and physical and performed a pertinent physical examination on my patient. No changes have occurred unless specified.
--- NOTE | 2020-12-21 10:25 | MHC.SLORD ---
Speech Language Pathology Order Status: VENETIAN BLIND WASHER spoke with RN. Patient is NPO for EGD today. Per MD note, concern for stricture? Wet cough with clear sputum. VENETIAN BLIND WASHER will continue to follow.
--- NOTE | 2020-12-21 11:21 | MHC.CM.PN ---
Per ROUNDS discussion, Patient is not yet medically cleared for dc (c/o difficulty swallowing and Patient is having an EGD today).The goal for dc is STR at [facility] and CM will follow for dc planning and possible need to adjust the dc plan.
--- NOTE | 2020-12-21 12:16 | PM.PNNEP ---
Subjective Subjective Date of Service: 12/21/20 Interval history: Events noted. All recent data reviewed; D/W MEd Attending Physical Exam Vital Signs: Vital Signs: Last Vital Signs Temp 98.1 F 12/21/20 11:33 Pulse 105 H 12/21/20 11:33 Resp 22 H 12/21/20 11:33 BP 133/88 12/21/20 11:33 Pulse Ox 92 12/21/20 11:33 Oxygen Flow Rate 2 12/13/20 10:47 Body Mass Index 38.7 Const: General: cooperative Neck: Neck: Yes supple Resp: Auscultation: diminished lung sounds Cardio: Jugular venous distension: no JVD GI: Palpation (GI): Soft to palpation Neuro: General: moves all extremities Objective Data Labs CBC & Chem 7: 12/14/20 04:29 12/21/20 05:23 Labs: Laboratory Results - last 24 hr 12/21/20 12/21/20 05:23 05:23 Sodium 136 Potassium 5.4 H Chloride 83 L Carbon Dioxide 45 H* Anion Gap 13 BUN 21 H Creatinine 0.67 Estim Creat Clear Calc 93.4 Estimated GFR > 60 Random Glucose 98 Calcium 9.4 B-Natriuretic Peptide 962 H Assessment & Plan Assessment and plan (1) Metabolic alkalosis: Problem details: serum sodium normalized; elevated serum potassium due to impaired distal flow urine chloride < 40; hold furosemide; Diamox 500mg daily for now; Labs AM Status: Acute Time Spent With Patient Time: Total time spent is greater than 50% in coordination of care (as documented) at patient's floor/unit and/or counseling patient: Procedures Date of Service Date of Service: 12/21/20
[2020-12-21] MEDS: Lactated Ringers 1,000 ML 20 ML IVCONT (16:03)
--- NOTE | 2020-12-21 16:27 | HO.ANESPROP2 ---
HPI - Anesthesia Eval Consult details Narrative: 75 yo female patient here for PEG tube placement PMFSH Active Problems Active Problems: All Active Problems (Updated 12/21/20 @ 12:18 by Iain Starks MD) Metabolic alkalosis (Acute) Dysphagia (Acute) Heart failure with preserved ejection fraction (Acute) Metabolic alkalosis (Acute) Hyperkalemia (Acute) Hyponatremia (Acute) Acute hyponatremia (Acute) CHF (congestive heart failure) (Acute) Fluid overload (Acute) Acute diastolic CHF (congestive heart failure) (Acute) Uncontrolled hypertension (Acute) SIADH (syndrome of inappropriate ADH production) (Acute) Past Medical History Medical History Acute hypercapnic respiratory failure due to obstructive sleep apnea Afib Essential hypertension HTN (hypertension) Myocardial infarct 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 If so, by whom?: No Do you feel safe in your current relationship?: No Current Relationship Is there a partner from a previous relationship who is making you feel unsafe now?: No Are you made to feel afraid or neglected: No Are you DNR?: No Advance Directives: Yes Advance Directives Information Provided: No Advance Directives on File: Yes Advance Directives Date on File: 01/13/21 Do you have thoughts of harming others: None Do you have a plan to hurt others: No Plan Recently lost weight without trying: No Eating poorly because of decreased appetite: No Nutrition Risks: No Nutritional Risk service: No Current occupational status: disabled Meds Allergies Allergy/AdvReac Type Severity Reaction Status Date / Time amiodarone Allergy Severe Difficulty Verified 01/03/21 21:43 Breathing SEASONAL ALLERGIES Allergy Unknown SNEEZING Uncoded 04/23/20 15:17 RUNNY NOSE Active Medications: Current Medications Generic Name Dose Route Start Last Admin Trade Name Clarita PRN Reason Stop Dose Admin Acetaminophen 650 mg 12/13/20 16:49 Acetaminophen 325 Mg Tablet PO Q6H PRN Pain, Mild (Pain Scale 1-3) Amlodipine Besylate 5 mg 12/14/20 09:00 12/21/20 08:12 Amlodipine Besylate 5 Mg Tablet PO 5 mg DAILY DEE Administration Protocol Benzonatate 100 mg 12/17/20 21:12 12/21/20 08:16 Benzonatate 100 Mg Capsule PO 100 mg TID PRN Administration Cough Flecainide Acetate 150 mg 12/13/20 21:00 12/21/20 08:11 Flecainide Acetate 50 Mg Tablet PO 150 mg BID DEE Administration Lactated Ringer's 1,000 mls @ 20 mls/hr 12/21/20 16:00 12/21/20 16:03 Lr IVCONT 20 mls/hr .Q24H DEE Administration Lorazepam 0.5 mg 12/21/20 02:20 12/21/20 02:54 Lorazepam 0.5 Mg Tablet PO 0.5 mg Q4H PRN Administration anxiety/restlessness Magnesium Oxide 400 mg 12/13/20 17:30 12/21/20 08:12 Magnesium Oxide 400 Mg Tablet PO 400 mg BIDPC DEE Administration Metoprolol Tartrate 75 mg 12/13/20 21:00 12/21/20 08:12 Metoprolol Tartrate 50 Mg Tablet PO 75 mg BID DEE Administration Protocol Omeprazole 20 mg 12/17/20 16:30 12/21/20 04:57 Omeprazole 20 Mg/10 Ml Susp.Recon PO Not Given BID@0630,1630 [facility] Ondansetron HCl 4 mg 12/13/20 16:49 12/19/20 09:52 Ondansetron Hcl 4 Mg/2 Ml Vial IVPUSH 4 mg Q8H PRN Administration Nausea and Vomiting Sodium Chloride 3 ml 12/14/20 00:00 12/21/20 08:11 0.9 % Sodium Chloride Flush 3 Ml Syringe IVFLUSH 3 ml QSHIFT DEE Administration Trazodone HCl 25 mg 12/14/20 21:20 12/20/20 23:09 Trazodone Hcl 25 Mg Halftab PO 25 mg BEDTIME PRN Administration Insomnia Home Medications Medication Instructions Recorded Confirmed Last Taken Type lorazepam 1 tab PO BID PRN 11/18/20 12/13/20 Unknown History omeprazole 1 cap PO BID 11/18/20 12/13/20 Unknown History simvastatin 1 tab PO DAILY 11/18/20 12/13/20 Unknown History Exam Exam Date and Time: December 21, 2020 1627 Height,Weight and Vital Signs: Height 5 ft 6 in Weight 110.223 kg Last Vital Signs Temp 97.3 F 12/21/20 14:53 Pulse 102 H 12/21/20 14:53 Resp 20 12/21/20 14:53 BP 148/96 H 12/21/20 14:53 Pulse Ox 99 12/21/20 14:53 Oxygen Flow Rate 2 12/13/20 10:47 Pertinent Lab Results Pertinent Lab Results: Laboratory Tests 12/13/20 12/13/20 12/13/20 11:47 11:47 11:47 WBC 12.4 H RBC 3.59 L Hgb 11.6 L Hct 35.1 L MCV 97.8 MCH 32.3 MCHC 33.0 RDW 12.6 Plt Count 316 MPV 9.3 L Immature Gran % (Auto) 0.5 H Neut % (Auto) 90.8 H Lymph % (Auto) 2.[address] [place] % (Auto) 5.7 Eos % (Auto) 0.2 Baso % (Auto) 0.1 Lymph # (Auto) 0.[address] [place] # (Auto) 0.7 Eos # (Auto) 0.0 Baso # (Auto) 0.0 Abs Immat Gran (auto) 0.06 H Absolute Neuts (auto) 11.3 H Absolute Nucleated RBC 0.000 Nucleated RBC % (auto) 0.0 Smear Tech's Comments VERIFIED PT INR APTT Sodium 120 L* Potassium 6.0 H* Chloride 79 L Carbon Dioxide 37 H Anion Gap 10 L BUN 21 H Creatinine 0.66 Estim Creat Clear Calc 94.9 Estimated GFR > 60 Random Glucose 133 H Osmolality Calcium 9.3 Phosphorus Magnesium Total Bilirubin 0.8 AST 23 ALT 27 Alkaline Phosphatase 70 Troponin I High Sens B-Natriuretic Peptide 849 H Total Protein 6.8 Albumin 4.0 Lipase 18 TSH Urine Color Urine Appearance Urine pH Ur Specific Loyal Urine Protein Urine Glucose (UA) Urine Ketones Urine Blood Urine Nitrite Ur Leukocyte Esterase Urine Osmolality Ur Random Sodium Ur Random Chloride Ethyl Alcohol COVID-19 ([facility]) COVID-19 Clin Com 12/13/20 12/13/20 12/13/20 11:47 11:47 11:47 WBC RBC Hgb Hct MCV MCH MCHC RDW Plt Count MPV Immature Gran % (Auto) Neut % (Auto) Lymph % (Auto) [place] % (Auto) Eos % (Auto) Baso % (Auto) Lymph # (Auto) [place] # (Auto) Eos # (Auto) Baso # (Auto) Abs Immat Gran (auto) Absolute Neuts (auto) Absolute Nucleated RBC Nucleated RBC % (auto) Smear Tech's Comments PT 24.0 H D INR 2.0 H APTT 34.2 Sodium Potassium Chloride Carbon Dioxide Anion Gap BUN Creatinine Estim Creat Clear Calc Estimated GFR Random Glucose Osmolality Calcium Phosphorus Magnesium Total Bilirubin AST ALT Alkaline Phosphatase Troponin I High Sens 5.9 B-Natriuretic Peptide Total Protein Albumin Lipase TSH Urine Color Urine Appearance Urine pH Ur Specific Loyal Urine Protein Urine Glucose (UA) Urine Ketones Urine Blood Urine Nitrite Ur Leukocyte Esterase Urine Osmolality Ur Random Sodium Ur Random Chloride Ethyl Alcohol COVID-19 ([facility]) Negative COVID-[facility] See Note 12/13/20 12/13/20 12/13/20 11:47 11:47 11:47 WBC RBC Hgb Hct MCV MCH MCHC RDW Plt Count MPV Immature Gran % (Auto) Neut % (Auto) Lymph % (Auto) [place] % (Auto) Eos % (Auto) Baso % (Auto) Lymph # (Auto) [place] # (Auto) Eos # (Auto) Baso # (Auto) Abs Immat Gran (auto) Absolute Neuts (auto) Absolute Nucleated RBC Nucleated RBC % (auto) Smear Tech's Comments PT INR APTT Sodium Potassium Chloride Carbon Dioxide Anion Gap BUN Creatinine Estim Creat Clear Calc Estimated GFR Random Glucose Osmolality 262 L Calcium Phosphorus Magnesium 2.0 Total Bilirubin AST ALT Alkaline Phosphatase Troponin I High Sens B-Natriuretic Peptide Total Protein Albumin Lipase TSH Urine Color Urine Appearance Urine pH Ur Specific Loyal Urine Protein Urine Glucose (UA) Urine Ketones Urine Blood Urine Nitrite Ur Leukocyte Esterase Urine Osmolality Ur Random Sodium Ur Random Chloride Ethyl Alcohol < 10 COVID-19 ([facility]) [facility]-[employer] 12/13/20 12/13/20 12/13/20 12:33 12:33 12:33 WBC RBC Hgb Hct MCV MCH MCHC RDW Plt Count MPV Immature Gran % (Auto) Neut % (Auto) Lymph % (Auto) [place] % (Auto) Eos % (Auto) Baso % (Auto) Lymph # (Auto) [place] # (Auto) Eos # (Auto) Baso # (Auto) Abs Immat Gran (auto) Absolute Neuts (auto) Absolute Nucleated RBC Nucleated RBC % (auto) Smear Tech's Comments PT INR APTT Sodium Potassium Chloride Carbon Dioxide Anion Gap BUN Creatinine Estim Creat Clear Calc Estimated GFR Random Glucose Osmolality Calcium Phosphorus Magnesium Total Bilirubin AST ALT Alkaline Phosphatase Troponin I High Sens B-Natriuretic Peptide Total Protein Albumin Lipase TSH Urine Color YELLOW Urine Appearance CLEAR Urine pH 6.0 Ur Specific Loyal >= 1.030 H Urine Protein TRACE Urine Glucose (UA) NEG Urine Ketones NEG Urine Blood NEG Urine Nitrite NEG Ur Leukocyte Esterase NEG Urine Osmolality 546 Ur Random Sodium < 20.0 Ur Random Chloride Ethyl Alcohol COVID-19 ([facility]) [employer] 12/13/20 12/13/20 12/14/20 15:48 15:48 04:29 WBC RBC Hgb Hct MCV MCH MCHC RDW Plt Count MPV Immature Gran % (Auto) Neut % (Auto) Lymph % (Auto) [place] % (Auto) Eos % (Auto) Baso % (Auto) Lymph # (Auto) [place] # (Auto) Eos # (Auto) Baso # (Auto) Abs Immat Gran (auto) Absolute Neuts (auto) Absolute Nucleated RBC Nucleated RBC % (auto) Smear Tech's Comments PT INR APTT Sodium 119 L* Potassium 5.7 H Chloride 78 L Carbon Dioxide 35 H Anion Gap 12 BUN 19 H Creatinine 0.65 Estim Creat Clear Calc 96.3 Estimated GFR > 60 Random Glucose 122 H Osmolality Calcium 8.9 Phosphorus Magnesium Total Bilirubin AST ALT Alkaline Phosphatase Troponin I High Sens 5.8 B-Natriuretic Peptide 1106 H Total Protein Albumin Lipase TSH Urine Color Urine Appearance Urine pH Ur Specific Loyal Urine Protein Urine Glucose (UA) Urine Ketones Urine Blood Urine Nitrite Ur Leukocyte Esterase Urine Osmolality Ur Random Sodium Ur Random Chloride Ethyl Alcohol COVID-19 ([facility]) [employer] 12/14/20 12/14/20 12/14/20 04:29 04:29 08:36 WBC 11.0 H RBC 3.60 L Hgb 11.5 L Hct 35.6 L MCV 98.9 H MCH 31.9 MCHC 32.3 RDW 12.5 Plt Count 321 MPV 9.5 Immature Gran % (Auto) 0.6 H Neut % (Auto) 81.8 H Lymph % (Auto) 5.[address] [place] % (Auto) 10.3 Eos % (Auto) 1.5 Baso % (Auto) 0.1 Lymph # (Auto) 0.[address] [place] # (Auto) 1.1 Eos # (Auto) 0.2 Baso # (Auto) 0.0 Abs Immat Gran (auto) 0.07 H Absolute Neuts (auto) 9.0 H Absolute Nucleated RBC 0.000 Nucleated RBC % (auto) 0.0 Smear Tech's Comments VERIFIED PT INR APTT Sodium 128 L Potassium 4.2 D Chloride 77 L Carbon Dioxide 45 H* D Anion Gap 10 L BUN 22 H Creatinine 0.60 Estim Creat Clear Calc 104.4 Estimated GFR > 60 Random Glucose 100 Osmolality Calcium 9.0 Phosphorus Magnesium Total Bilirubin AST ALT Alkaline Phosphatase Troponin I High Sens B-Natriuretic Peptide Total Protein Albumin Lipase TSH 1.38 Urine Color Urine Appearance Urine pH Ur Specific Loyal Urine Protein Urine Glucose (UA) Urine Ketones Urine Blood Urine Nitrite Ur Leukocyte Esterase Urine Osmolality Ur Random Sodium Ur Random Chloride Ethyl Alcohol COVID-19 ([facility]) COVID-19 [employer] 12/14/20 12/14/20 12/14/20 08:36 13:11 13:11 WBC RBC Hgb Hct MCV MCH MCHC RDW Plt Count MPV Immature Gran % (Auto) Neut % (Auto) Lymph % (Auto) [place] % (Auto) Eos % (Auto) Baso % (Auto) Lymph # (Auto) [place] # (Auto) Eos # (Auto) Baso # (Auto) Abs Immat Gran (auto) Absolute Neuts (auto) Absolute Nucleated RBC Nucleated RBC % (auto) Smear Tech's Comments PT INR APTT Sodium 125 L Potassium 4.0 Chloride 79 L Carbon Dioxide 40 H* Anion Gap 10 L BUN 20 H Creatinine 0.60 Estim Creat Clear Calc 104.4 Estimated GFR > 60 Random Glucose 146 H D Osmolality Calcium 8.6 Phosphorus Magnesium 1.5 L Total Bilirubin AST ALT Alkaline Phosphatase Troponin I High Sens B-Natriuretic Peptide 1285 H Cancelled Total Protein Albumin Lipase TSH Urine Color Urine Appearance Urine pH Ur Specific Loyal Urine Protein Urine Glucose (UA) Urine Ketones Urine Blood Urine Nitrite Ur Leukocyte Esterase Urine Osmolality Ur Random Sodium Ur Random Chloride Ethyl Alcohol COVID-19 ([facility]) COVID-19 [employer] 12/15/20 12/15/20 12/16/20 11:15 12:51 09:27 WBC RBC Hgb Hct MCV MCH MCHC RDW Plt Count MPV Immature Gran % (Auto) Neut % (Auto) Lymph % (Auto) [place] % (Auto) Eos % (Auto) Baso % (Auto) Lymph # (Auto) [place] # (Auto) Eos # (Auto) Baso # (Auto) Abs Immat Gran (auto) Absolute Neuts (auto) Absolute Nucleated RBC Nucleated RBC % (auto) Smear Tech's Comments PT INR APTT Sodium 130 L 134 L Potassium 3.9 3.6 Chloride 79 L 80 L Carbon Dioxide 44 H* 50 H* Anion Gap 11 L 8 L BUN 16 10 Creatinine 0.62 0.59 Estim Creat Clear Calc 101.0 106.1 Estimated GFR > 60 > 60 Random Glucose 171 H 113 Osmolality Calcium 8.8 9.0 Phosphorus Magnesium Total Bilirubin AST ALT Alkaline Phosphatase Troponin I High Sens B-Natriuretic Peptide Total Protein Albumin Lipase TSH Urine Color Urine Appearance Urine pH Ur Specific Loyal Urine Protein Urine Glucose (UA) Urine Ketones Urine Blood Urine Nitrite Ur Leukocyte Esterase Urine Osmolality Ur Random Sodium Ur Random Chloride 26.0 Ethyl Alcohol COVID-19 ([facility]) COVID-19 [employer] 12/16/20 12/17/20 12/18/20 13:03 08:25 14:09 WBC RBC Hgb Hct MCV MCH MCHC RDW Plt Count MPV Immature Gran % (Auto) Neut % (Auto) Lymph % (Auto) [place] % (Auto) Eos % (Auto) Baso % (Auto) Lymph # (Auto) [place] # (Auto) Eos # (Auto) Baso # (Auto) Abs Immat Gran (auto) Absolute Neuts (auto) Absolute Nucleated RBC Nucleated RBC % (auto) Smear Tech's Comments PT INR APTT Sodium 132 L 132 L Potassium 4.0 4.5 Chloride 80 L 80 L Carbon Dioxide 44 H* 45 H* Anion Gap 12 12 BUN 13 11 Creatinine 0.63 0.62 Estim Creat Clear Calc 99.4 101.0 Estimated GFR > 60 > 60 Random Glucose 157 H D 104 Osmolality Calcium 9.1 9.4 Phosphorus Magnesium Total Bilirubin AST ALT Alkaline Phosphatase Troponin I High Sens B-Natriuretic Peptide Total Protein Albumin Lipase TSH Urine Color Urine Appearance Urine pH Ur Specific Loyal Urine Protein Urine Glucose (UA) Urine Ketones Urine Blood Urine Nitrite Ur Leukocyte Esterase Urine Osmolality Ur Random Sodium Ur Random Chloride Ethyl Alcohol COVID-19 ([facility]) Negative COVID-19 [employer] See Note 12/18/20 12/19/20 12/20/20 14:27 12:46 10:33 WBC RBC Hgb Hct MCV MCH MCHC RDW Plt Count MPV Immature Gran % (Auto) Neut % (Auto) Lymph % (Auto) [place] % (Auto) Eos % (Auto) Baso % (Auto) Lymph # (Auto) [place] # (Auto) Eos # (Auto) Baso # (Auto) Abs Immat Gran (auto) Absolute Neuts (auto) Absolute Nucleated RBC Nucleated RBC % (auto) Smear Tech's Comments PT INR APTT Sodium 134 L 133 L 136 Potassium 5.2 H 5.3 H 5.0 Chloride 82 L 83 L 83 L Carbon Dioxide 47 H* 46 H* 47 H* Anion Gap 10 L 9 L 11 L BUN 15 20 H 21 H Creatinine 0.69 0.71 0.69 Estim Creat Clear Calc 90.7 88.1 90.7 Estimated GFR > 60 > 60 > 60 Random Glucose 129 H 117 H 143 H Osmolality Calcium 9.6 9.1 9.2 Phosphorus 4.6 H Magnesium 1.8 Total Bilirubin AST ALT Alkaline Phosphatase Troponin I High Sens B-Natriuretic Peptide Total Protein Albumin Lipase TSH Urine Color Urine Appearance Urine pH Ur Specific Loyal Urine Protein Urine Glucose (UA) Urine Ketones Urine Blood Urine Nitrite Ur Leukocyte Esterase Urine Osmolality Ur Random Sodium Ur Random Chloride Ethyl Alcohol COVID-19 ([facility]) COVID-19 [employer] 12/21/20 12/21/20 05:23 05:23 WBC RBC Hgb Hct MCV MCH MCHC RDW Plt Count MPV Immature Gran % (Auto) Neut % (Auto) Lymph % (Auto) [place] % (Auto) Eos % (Auto) Baso % (Auto) Lymph # (Auto) [place] # (Auto) Eos # (Auto) Baso # (Auto) Abs Immat Gran (auto) Absolute Neuts (auto) Absolute Nucleated RBC Nucleated RBC % (auto) Smear Tech's Comments PT INR APTT Sodium 136 Potassium 5.4 H Chloride 83 L Carbon Dioxide 45 H* Anion Gap 13 BUN 21 H Creatinine 0.67 Estim Creat Clear Calc 93.4 Estimated GFR > 60 Random Glucose 98 Osmolality Calcium 9.4 Phosphorus Magnesium Total Bilirubin AST ALT Alkaline Phosphatase Troponin I High Sens B-Natriuretic Peptide 962 H Total Protein Albumin Lipase TSH Urine Color Urine Appearance Urine pH Ur Specific Loyal Urine Protein Urine Glucose (UA) Urine Ketones Urine Blood Urine Nitrite Ur Leukocyte Esterase Urine Osmolality Ur Random Sodium Ur Random Chloride Ethyl Alcohol COVID-19 ([facility]) COVID-19 Clin Com
--- NOTE | 2020-12-21 16:38 | PM.OP ---
Brief Operative Note Date of Service: 12/21/20 Pre-op diagnosis: dysphagia Post-op diagnosis: same Procedure: see op note Surgeon: Samuel Whiting MD Anesthesia: MAC Was an Guest Services Coordinator used for this Procedure?: No Estimated blood loss (mL): 0 Condition: stable Disposition: PACU
--- NOTE | 2020-12-21 16:39 | W.PM.OPN ---
Operative Note Operative Note Date of Service: 12/21/20 Narrative: Procedure Description: EGD FLEXIBLE TRANSORAL UPPER GASTROINTESTINAL ENDOSCOPY UPPER ENDOSCOPY Consent: Indications for the procedure and potential complications of bleeding, perforation, reaction to medications and missed diagnosis were discussed with the patient and informed consent was obtained. Instrument: Olympus GIF H 190 J mid size upper endoscope Monitoring: Vital signs and clinical assessment, continuous EKG monitoring, Pulse oximetry, Carbon Dioxide monitoring and blood pressure monitoring were done throughout the procedure. Procedure: The patient was placed in the left lateral decubitis position and pre-procedure medications were administered and a bite block was placed. The endoscope was inserted into the mouth and advanced under direct vision to the third part of duodenum. A careful inspection was made as the upper endoscope was withdrawn including a retroflexed examination of the proximal stomach; Findings and interventions are described below. Findings: Larynx:normal Esophagus: GE junction at 38 cm, diaphragm hiatus at 38 cm, no varices or esophagitis. Stomach: Patchy gastric erythema. Biopsies were obtained. Grade 2 flap valve on retroflexed examination of the cardia. Duodenum: Normal bulb and descending duodenum, bx taken Intervention: Biopsies as noted above Impression/Findings: [] PLAN: []
--- NOTE | 2020-12-21 16:57 | HO.PM.IMPN ---
Subjective Subjective Date of Service: 12/21/20 Interval History: NPO this morning since scheduled for upper endoscopy for dysphagia, offers no acute complaints, no issues overnight. ROS General no headache, no dizziness, no fever. CVS no chest pain, no palpitation. Respiratory no cough, no sob. Gastrointestinal no nausea, no vomiting, no abdominal pain Physical Exam Vital Signs: Vital Signs: Last Vital Signs Temp 97.3 F 12/21/20 14:53 Pulse 102 H 12/21/20 14:53 Resp 20 12/21/20 14:53 BP 148/96 H 12/21/20 14:53 Pulse Ox 99 12/21/20 14:53 Oxygen Flow Rate 2 12/13/20 10:47 Body Mass Index 39.2 Constitutional Awake, alert, No acute distress Neck Supple, No lymphadenopathy no JVD Cardiovascular RRR, No M/R/G, S1 S2, No S3 S4, + pedal edema Respiratory no respiratory distress, rhonchi Gastrointestinal Non tender, Non-distended, bowel sounds audible Skin No rash Neurological Alert & oriented x3 Psychological Appropriate affect Objective Data Current Medications Generic Name Dose Route Start Last Admin Trade Name Freq PRN Reason Stop Dose Admin Acetaminophen 650 mg 12/13/20 16:49 Acetaminophen 325 Mg Tablet PO Q6H PRN Pain, Mild (Pain Scale 1-3) Amlodipine Besylate 5 mg 12/14/20 09:00 12/21/20 08:12 Amlodipine Besylate 5 Mg Tablet PO 5 mg DAILY DEE Administration Protocol Benzonatate 100 mg 12/17/20 21:12 12/21/20 08:16 Benzonatate 100 Mg Capsule PO 100 mg TID PRN Administration Cough Flecainide Acetate 150 mg 12/13/20 21:00 12/21/20 08:11 Flecainide Acetate 50 Mg Tablet PO 150 mg BID DEE Administration Lactated Ringer's 1,000 mls @ 20 mls/hr 12/21/20 16:00 12/21/20 16:03 Lr IVCONT 20 mls/hr .Q24H DEE Administration Lorazepam 0.5 mg 12/21/20 02:20 12/21/20 02:54 Lorazepam 0.5 Mg Tablet PO 0.5 mg Q4H PRN Administration anxiety/restlessness Magnesium Oxide 400 mg 12/13/20 17:30 12/21/20 08:12 Magnesium Oxide 400 Mg Tablet PO 400 mg BIDPC DEE Administration Metoprolol Tartrate 75 mg 12/13/20 21:00 12/21/20 08:12 Metoprolol Tartrate 50 Mg Tablet PO 75 mg BID DEE Administration Protocol Omeprazole 20 mg 12/17/20 16:30 12/21/20 04:57 Omeprazole 20 Mg/10 Ml Susp.Recon PO Not Given BID@0630,1630 [facility] Ondansetron HCl 4 mg 12/13/20 16:49 12/19/20 09:52 Ondansetron Hcl 4 Mg/2 Ml Vial IVPUSH 4 mg Q8H PRN Administration Nausea and Vomiting Sodium Chloride 3 ml 12/14/20 00:00 12/21/20 08:11 0.9 % Sodium Chloride Flush 3 Ml Syringe IVFLUSH 3 ml QSHIFT DEE Administration Trazodone HCl 25 mg 12/14/20 21:20 12/20/20 23:09 Trazodone Hcl 25 Mg Halftab PO 25 mg BEDTIME PRN Administration Insomnia Labs CBC & Chem 7: 12/14/20 04:29 12/21/20 05:23 Assessment and Plan (1) Dysphagia: Status: Acute (2) Metabolic alkalosis: Status: Acute (3) Heart failure with preserved ejection fraction: Status: Acute (4) Acute hyponatremia: Status: Acute (5) Acute diastolic CHF (congestive heart failure): Status: Acute (6) SIADH (syndrome of inappropriate ADH production): Status: Acute Assessment and Plan: 75-year-old female with past medical history of hypertension hyperlipidemia, anxiety, AFib on Eliquis, chronic back pain status post surgery presented hospital a chief complaint of increased weakness, multiple episodes of nausea and vomiting and feeling shortness of breath and with dyspnea on exertion. Acute hyponatremia--related to heart failure,Treated with urea, salt tab and fluid restriction and has resolved. Nephrology following--sodium level now normal at 136,, salt tablet discontinued, nephrology recommend to hold furosemide Dyphagia--concern for stricture, recurrent throat cancer, EGD was scheduled but anesthesia canceled the procedure,due to hyperkalemia,alkalosis and elevated BNP Case discussed with Dr. Rainey he recommend to barium swallow study. Mild hyperkalemia Nephrology recommend no treatment since it is related to impaired distal flow. Follow BMP AFIB Continue flecainide, lopressor, will resume eliquis since upper endoscopy canceled due to electrolyte abnormality. no further need for tele monitoring Nausea vomiting--improved, likely related to low sodium acute diastolic chf right sided dysfunction and mild pulm htn, BNP chronically elevated, CXR showing effusion Received Lasix in the emergency room currently seems euvolemic, continue to hold Lasix follow bmp. Atelectasis Encourage incentive spirometry,no indication for antibiotics at this time Etoh dependence CIWA, no signs of withdrawal, obtain care team consult hypertension Continue amlodipine and metoprolol Monitor blood pressure Metabolic Alkalosis bicarb 45 , case discussed with Nephrology they recommend to give Diamox 500 mg daily and follow BMP
--- NOTE | 2020-12-21 17:09 | PM.EVENT ---
Event Note Date of Service: 12/21/20 Event Note: PAtient came down for EGD. Anesthesia were concerned as regards K elevation and alkalosis, high BNP. Case cancelled, I d/w Dr Jamison,--get Ba swallow with pill study, depending on results can decide on game plan TH
[2020-12-21] MEDS: acetaZOLAMIDE 250 MG TABLET 500 MG PO (17:30)
--- NOTE | 2020-12-21 17:46 | PC.NURSE ---
Addendum entered by Dionne Perez RN 12/22/20 16:25: Checked in with patient, asked her if she would try wearing CPAP tonight - pt states she will give it a try. Will let nicole RN aware Addendum entered by Dionne Perez RN 12/22/20 15:35: Continuing to educate pt on importance of CPAP at night - pt not agreeable right now, seems annoyed as Rn repeats importance. Also encouraged IS - pt stated she used it two days ago because I was downstairs all day yesterday, but before I got to 750 I asked pt to show me her using it - pt takes shallow breaths - got around to ~250 using incentive spriometry. Rn continued to encourage IS, explained to pt that CO2 is getting retained in her lungs. PT is verbalizing her understanding at this moment but will definitely need reinforcement continuously. Discussed new order for IV diamox with pt and why we are adding it to regimen Original Note: Rn asked pt why she doesnt wear CPAP at night which is ordered. Rn told pt it could be contributing to her higher CO2 levels and the risks of. PT states her dr told her after she lost a bunch of weight she didnt need it no more Discussed reason why were encouraging it now and asked if she would be willing to try it at night pt stated oh I already have enough things hooked up to me as it is Will report off to nicole SANTILLAN to continue to encourage use.
[2020-12-21] MEDS: traZODone HCL 25 MG HALFTAB PO (22:17)
[2020-12-22] VITALS (10 sets, daily range): BP systolic 104–141; BP diastolic 62–88; PULSE 88–98; RESP 15–22; TEMP 36.1–36.8; O2SAT 91–93
[2020-12-22] MEDS: LORazepam 0.5 MG TABLET PO ×2 (03:46→10:33)
[2020-12-22 07:03] LABS: Basophils Percent Auto 0.3 % (0-2); Eosinophils Absolute Auto 0.1 X10*3/uL (0.0-0.4); Eosinophils Percent Auto 0.9 % (0-4); Hemoglobin 11.3 g/dl (12.0-16.0); Imm Gran Abs Auto 0.06 X10*3/uL (0.00-0.03); Imm Gran Pct Auto 0.6 % (0.0-0.4); Lymphocytes Absolute Auto 0.5 X10*3/uL (1.2-4.9); Lymphocytes Percent Auto 5.6 % (20-40); MANUAL DIFF FLAG SCAN; Mean Corpuscular HGB Conc 30.5 g/dl (31.0-35.0); Mean Corpuscular Hemoglobin 31.8 pg (27.0-33.0); Mean Corpuscular Volume 104.2 fL (80-98); Mean Platelet Volume 9.1 fL (9.4-12.3); Monocytes Absolute Auto 0.6 X10*3/uL (0.1-1.2); Neutrophils Absolute Auto 8.2 X10*3/uL (2.0-8.3); Neutrophils Percent Auto 86.6 % (45-73); Platelet Count 209 X10*3/uL (160-400); Red Blood Count 3.55 X10*6/uL (4.20-5.50); Red Cell Distribution Width 12.9 % (11.0-16.0); SCAN SMEAR FLAG 1; White Blood Count 9.5 X10*3/uL (4.8-10.8)
[2020-12-22 07:44] LABS: SLIDE REVIEW VERIFIED
[2020-12-22] MEDS: 0.9 % Sodium Chloride Flush 3 ML SYRINGE IVFLUSH ×3 (07:51→23:47)
[2020-12-22 08:08] LABS: Anion Gap 10 (12-20); Blood Urea Nitrogen 21 mg/dL (9-16); Calcium 9.2 mg/dL (8.4-10.2); Carbon Dioxide 47 mmol/L (22-29); Chloride 85 mmol/L (96-108); Creatinine Clr Calc Pharmacy 85.1; Estimated Glomerular Filt Rate > 60; Glucose Random 106 mg/dL (60-115); Potassium 4.8 mmol/L (3.3-5.1); Sodium 137 mmol/L (135-145)
--- NOTE | 2020-12-22 10:13 | HO.POSTANES ---
Post Anesthesia Evaluation Post Anesthesia Evaluation Vital Signs: Vital Signs Temp Pulse Resp BP Pulse Ox 12/22/20 08:00 97.0 F 97 22 H 141/66 H 93 12/22/20 03:20 97.6 F 88 22 H 112/62 93 12/22/20 00:00 97.2 F 89 18 120/73 91 L 12/21/20 22:17 99 129/78 12/21/20 22:16 99 129/78 Anesthesia: Monitored Mental Status: Awake Pain Control: Satisfactory Nausea/Vomiting: None Hydration: Adequate Anesthesia-Related Issues: No Anes. Related Issues
[2020-12-22] MEDS: acetaZOLAMIDE 250 MG TABLET 500 MG PO (10:33)
[2020-12-22] MEDS: Magnesium Oxide 400 MG TABLET PO ×2 (10:34→16:32)
[2020-12-22] MEDS: Metoprolol Tartrate 50 MG TABLET 75 MG PO ×2 (10:34→21:59)
[2020-12-22] MEDS: Benzonatate 100 MG CAPSULE PO (10:35)
[2020-12-22] MEDS: amLODIPine Besylate 5 MG TABLET PO (10:35)
[2020-12-22] MEDS: Flecainide Acetate 50 MG TABLET 150 MG PO ×2 (10:35→21:59)
--- NOTE | 2020-12-22 11:19 | MHC.SL.DTX ---
Pre-Treatment Diet: PUREED (NDD1) solids THIN liquids CRUSHED pills in PUREE Subjective: Changes made to current diet?: No: Continue pureed diet Dysphasia Diet Status: Liquid Consistency and Strategies: Liquid Intake Recommendation: Thin Compensatory Strategies for Safe Swallow: Small Sips Compensatory Strategies for Safe Swallow(b): Sitting Upright (90 deg) Small Bites and Sips Alternate Liquids/Solids Rate of Ingestion Change Solid Food Consistency: Dietary Recommendations: Pureed (NDD1) Additional Modifications to Solids: Oral Medication Intake: Crushed with Puree Strategies and Precautions to be Taken for Safe Swallow: Compensatory Swallowing Status: Sitting Upright (90 deg) Small Bites and Sips Alternate Liquids/Solids Rate of Ingestion Change Supervision While Eating and/Drinking: Intermittent Supervision Foods to Avoid: Swallowing Recommended Treatments: Compens. Strategy Educat. Level of Impact on: Daily activities: Mild Interpersonal interactions: Mild Education: None Employment: None Community: Mild Prognosis for Improvement: Guarded Recommendation for Speech: Inpatient Speech Therapy Comment: Frequency/Duration: Date Range for Service Req: Timeline to reassess: Additional Comments: Patient reports onset of dysphagia in 2007 secondary to throat cancer diagnosis. Patient is edentulous and does not use her dentures. Patient reports eating soft food at baseline. Treatment: Patient was scheduled for EGD yesterday to further evaluate esophagus for ?stricture, though canceled as pt was not appropriate for anesthesia. Instead, pt had Barium Swallow this morning. Results still pending. Pt accepted limited PO trials this morning. Pt stated that she already ate breakfast and was not hungry. She accepted some water via straw. No overt s/s aspiration. Delay in pharyngeal swallow noted. Pt cued to take small sips when using a straw. Automation Developer Clinican/Clinical Fellow: Yes: Ciara Owens M.A., CF-DISASTER DIRECTOR Supervisory Statement: I have reviewed and agree with the student/clinical fellow's documentation: N/A Speech Language Pathologist: Anika Silva M.A., CCC-DISASTER DIRECTOR
--- NOTE | 2020-12-22 11:49 | MHC.RECOVRN ---
Chart reviewed after consult placed to CARE Team for etoh. T/w attempted to meet with pt, pt sleeping. Will try again at a later time.
--- NOTE | 2020-12-22 13:26 | HO.PM.IMPN ---
Subjective Subjective Date of Service: 12/22/20 Interval History: The patient was seen and evaluated this morning Laying in bed, feels comfortable overall, looks more tired and deconditioned Sodium has been improving to 137 Sustained in AFib Refusing the CPAP overnight Denies any fever, chills or shortness of breath No reported other overnight events. Systemic review: No fever, chills but reported general weakness No chest pain, palpitation No shortness of breath or coughing No abdominal pain, nausea or vomiting No urinary symptoms No any rash or wounds Physical Exam Vital Signs: Vital Signs: Last Vital Signs Temp 97.0 F 12/22/20 11:40 Pulse 98 12/22/20 11:40 Resp 20 12/22/20 11:40 BP 127/65 12/22/20 11:40 Pulse Ox 93 12/22/20 11:40 Oxygen Flow Rate 2 12/13/20 10:47 Body Mass Index 39.2 Const: Other: Constitutional : Alert, oriented, in mild respiratory distress Neck : Normal inspection, Supple Cardiovascular : Irregular irregular, S1 S2, trace bilateral lower extremity edema Respiratory : Decreased bilateral air entry, basal fine crackles, wheezes or rhonchi Gastrointestinal: soft, lax, Normal bowel sounds, Non tender Skin : Warm/Dry, No rash Neurological : Alert & oriented x3, No focal deficit Objective Data Current Medications Generic Name Dose Route Start Last Admin Trade Name Freq PRN Reason Stop Dose Admin Acetaminophen 650 mg 12/13/20 16:49 Acetaminophen 325 Mg Tablet PO Q6H PRN Pain, Mild (Pain Scale 1-3) Acetazolamide 500 mg 12/21/20 17:30 12/22/20 10:33 Acetazolamide 250 Mg Tablet PO 500 mg DAILY DEE Administration Amlodipine Besylate 5 mg 12/14/20 09:00 12/22/20 10:35 Amlodipine Besylate 5 Mg Tablet PO 5 mg DAILY DEE Administration Protocol Benzonatate 100 mg 12/17/20 21:12 12/22/20 10:35 Benzonatate 100 Mg Capsule PO 100 mg TID PRN Administration Cough Flecainide Acetate 150 mg 12/13/20 21:00 12/22/20 10:35 Flecainide Acetate 50 Mg Tablet PO 150 mg BID DEE Administration Lorazepam 0.5 mg 12/21/20 02:20 12/22/20 10:33 Lorazepam 0.5 Mg Tablet PO 0.5 mg Q4H PRN Administration anxiety/restlessness Magnesium Oxide 400 mg 12/13/20 17:30 12/22/20 10:34 Magnesium Oxide 400 Mg Tablet PO 400 mg BIDPC DEE Administration Metoprolol Tartrate 75 mg 12/13/20 21:00 12/22/20 10:34 Metoprolol Tartrate 50 Mg Tablet PO 75 mg BID DEE Administration Protocol Omeprazole 20 mg 12/17/20 16:30 12/22/20 04:09 Omeprazole 20 Mg/10 Ml Susp.Recon PO Not Given BID@0630,1630 [facility] Ondansetron HCl 4 mg 12/13/20 16:49 12/19/20 09:52 Ondansetron Hcl 4 Mg/2 Ml Vial IVPUSH 4 mg Q8H PRN Administration Nausea and Vomiting Sodium Chloride 3 ml 12/14/20 00:00 12/22/20 07:51 0.9 % Sodium Chloride Flush 3 Ml Syringe IVFLUSH 3 ml QSHIFT DEE Administration Trazodone HCl 25 mg 12/14/20 21:20 12/21/20 22:17 Trazodone Hcl 25 Mg Halftab PO 25 mg BEDTIME PRN Administration Insomnia Labs CBC & Chem 7: 12/22/20 06:31 12/22/20 06:22 Assessment and Plan (1) Dysphagia: Status: Acute (2) Metabolic alkalosis: Status: Acute (3) Heart failure with preserved ejection fraction: Status: Acute (4) Acute hyponatremia: Status: Acute (5) Acute diastolic CHF (congestive heart failure): Status: Acute (6) SIADH (syndrome of inappropriate ADH production): Status: Acute Assessment and Plan: 75-year-old female with past medical history of hypertension hyperlipidemia, anxiety, AFib on Eliquis, chronic back pain status post surgery presented hospital a chief complaint of increased weakness, multiple episodes of nausea and vomiting and feeling shortness of breath and with dyspnea on exertion. Acute hyponatremia Related to heart failure,Treated with urea, salt tab and fluid restriction and has resolved. Nephrology following, sodium level now normal at 136 salt tablet discontinued nephrology recommend to hold furosemide Dyphagia concern for stricture, recurrent throat cancer EGD was scheduled but anesthesia canceled the procedure Barium swallow study done this morning GI following AFIB Continue flecainide, lopressor, will resume eliquis since upper endoscopy canceled due to electrolyte abnormality. no further need for tele monitoring Nausea vomiting improved, likely related to low sodium acute diastolic chf right sided dysfunction and mild pulm htn, BNP chronically elevated, CXR showing effusion Received Lasix in the emergency room currently seems euvolemic, continue to hold Lasix follow bmp. Atelectasis Encourage incentive spirometry,no indication for antibiotics at this time Etoh dependence CIWA, no signs of withdrawal, obtain care team consult hypertension Continue amlodipine and metoprolol Monitor blood pressure Metabolic Alkalosis bicarb 45 case discussed with Nephrology they recommend to give Diamox 500 mg daily and check ABGs DVT PPX Heparin
[2020-12-22 13:43] LABS: ABG Base Excess 20.6 mmol/L; ABG HCO3 51 mmol/L (22-26); ABG pCO2 96 mmHg (32-45); ABG pCO2 TC 96 mmHg (32-45); ABG pH 7.33 (7.35-7.45); ABG pH TC 7.33 (7.35-7.45); ABG pO2 66 mmHg (83-108); ABG pO2 TC 66 (83-108)
[2020-12-22 13:46] LABS: ABG Refer to POC result
[2020-12-22] MEDS: Heparin Sodium,Porcine 5,000 UNIT/ML VIAL 5000 UNIT SUBCUT (14:55)
[2020-12-22] MEDS: acetaZOLAMIDE sodium 500 MG VIAL IVPUSH ×2 (15:08→21:58)
--- NOTE | 2020-12-22 17:03 | P.PNNP_ITS ---
Subjective Subjective Date of Service: 12/22/20 Interval history: Events noted. All recent data reviewed. D/W Med Attending Physical Exam 2 Vital Signs: Vital Signs: Last Vital Signs Temp 97.0 F 12/22/20 15:20 Pulse 88 12/22/20 15:20 Resp 15 12/22/20 15:20 BP 104/88 12/22/20 15:20 Pulse Ox 93 12/22/20 15:20 Oxygen Flow Rate 2 12/13/20 10:47 Body Mass Index 39.2 Const: General: No acute distress Neck: Neck: Yes supple Resp: Auscultation: diminished lung sounds Cardio: Jugular venous distension: no JVD GI: Palpation (GI): Soft to palpation Neuro: General: moves all extremities Objective Data Labs CBC & Chem 7: 12/22/20 06:31 12/22/20 06:22 Labs: Laboratory Results - last 24 hr 12/22/20 12/22/20 12/22/20 06:22 06:31 13:25 WBC 9.5 RBC 3.55 L Hgb 11.3 L Hct 37.0 MCV 104.2 H MCH 31.8 MCHC 30.5 L RDW 12.9 Plt Count 209 D MPV 9.1 L Immature Gran % (Auto) 0.6 H Neut % (Auto) 86.6 H Lymph % (Auto) 5.6 L Trigg % (Auto) 6.0 Eos % (Auto) 0.9 Baso % (Auto) 0.3 Lymph # (Auto) 0.5 L Trigg # (Auto) 0.6 Eos # (Auto) 0.1 Baso # (Auto) 0.0 Abs Immat Gran (auto) 0.06 H Absolute Neuts (auto) 8.2 Absolute Nucleated RBC 0.000 Nucleated RBC % (auto) 0.0 Smear Tech's Comments VERIFIED O2 Saturation 90.0 ABG pH at Pt Temp 7.33 L ABG pH (Temp Correct) 7.33 L ABG pCO2 at Pt Temp 96 H* ABG pCO2 (Temp Corrct 96 H* ABG pO2 at Pt Temp 66 L ABG pO2 (Temp Correct 66 L ABG HCO3 51 H ABG Base Excess (Actual) 20.6 Sodium 137 Potassium 4.8 Chloride 85 L Carbon Dioxide 47 H* Anion Gap 10 L BUN 21 H Creatinine 0.74 Estim Creat Clear Calc 85.1 Estimated GFR > 60 Random Glucose 106 Calcium 9.2 Assessment & Plan Assessment and plan (1) Metabolic alkalosis: Problem details: serum sodium normalized; elevated serum potassium due to impaired distal flow urine chloride < 40; hold furosemide; Diamox 500mg daily for now; ABG; Labs AM Status: Acute Time Spent With Patient Time: Total time spent is greater than 50% in coordination of care (as documented) at patient's floor/unit and/or counseling patient: Procedures Date of Service Date of Service: 12/22/20
[2020-12-23] VITALS (12 sets, daily range): BP systolic 113–144; BP diastolic 67–97; PULSE 75–103; RESP 18–20; TEMP 36.1–36.7; O2SAT 92–97
[2020-12-23] MEDS: Heparin Sodium,Porcine 5,000 UNIT/ML VIAL 5000 UNIT SUBCUT ×2 (02:32→15:33)
[2020-12-23] MEDS: acetaZOLAMIDE sodium 500 MG VIAL IVPUSH ×3 (06:40→21:40)
[2020-12-23] MEDS: Magnesium Oxide 400 MG TABLET PO ×2 (09:03→16:52)
[2020-12-23] MEDS: Flecainide Acetate 50 MG TABLET 150 MG PO ×2 (09:03→21:39)
[2020-12-23] MEDS: Metoprolol Tartrate 50 MG TABLET 75 MG PO ×2 (09:03→21:36)
[2020-12-23] MEDS: amLODIPine Besylate 5 MG TABLET PO (09:04)
[2020-12-23 09:07] LABS: Hemoglobin 11.7 g/dl (12.0-16.0); Mean Corpuscular HGB Conc 30.8 g/dl (31.0-35.0); Mean Corpuscular Hemoglobin 32.3 pg (27.0-33.0); Mean Platelet Volume 9.3 fL (9.4-12.3); Platelet Count 202 X10*3/uL (160-400); Red Blood Count 3.62 X10*6/uL (4.20-5.50); White Blood Count 9.9 X10*3/uL (4.8-10.8)
[2020-12-23] MEDS: 0.9 % Sodium Chloride Flush 3 ML SYRINGE IVFLUSH ×3 (09:09→21:41)
[2020-12-23 09:11] LABS: Venous Blood Gas Refer to POC result
[2020-12-23 09:11] LABS: VBG Base Excess 22.2 mmol/L; VBG HCO3 54 mmol/L (22-26); VBG pCO2 104 mmHg; VBG pH 7.32 (7.32-7.43); VBG pO2 46 mmHg
[2020-12-23 09:33] LABS: Anion Gap 12 (12-20); Blood Urea Nitrogen 26 mg/dL (9-16); Calcium 9.1 mg/dL (8.4-10.2); Carbon Dioxide 45 mmol/L (22-29); Chloride 84 mmol/L (96-108); Creatinine Clr Calc Pharmacy 77.8; Estimated Glomerular Filt Rate > 60; Glucose Random 132 mg/dL (60-115); Sodium 137 mmol/L (135-145)
--- NOTE | 2020-12-23 11:38 | MHC.CM.PN ---
Per ROUNDS discussion, Patient is scheduled for an EGD tomorrow. STR @ [facility] is the goal for dc and CM will follow for possible need to adjust the dc plan.
[2020-12-23] MEDS: Furosemide 20 MG/2 ML VIAL IVPUSH (12:10)
[2020-12-23] MEDS: modafiniL 100 MG TABLET PO (12:10)
--- NOTE | 2020-12-23 14:34 | HO.PM.IMPN ---
Subjective Subjective Date of Service: 12/23/20 Interval History: The patient was seen and evaluated this morning Laying in bed, feels tired but more alert today Sustained in AFib Placed on CPAP overnight Denies any fever, chills or shortness of breath No reported other overnight events. Systemic review: No fever, chills but reported general weakness No chest pain, palpitation No shortness of breath or coughing No abdominal pain, nausea or vomiting No urinary symptoms No any rash or wounds Physical Exam Vital Signs: Vital Signs: Last Vital Signs Temp 97.6 F 12/23/20 11:11 Pulse 91 12/23/20 11:11 Resp 18 12/23/20 11:11 BP 141/69 H 12/23/20 11:11 Pulse Ox 97 12/23/20 11:11 Oxygen Flow Rate 2 12/13/20 10:47 Body Mass Index 39.2 Const: Other: Constitutional : Alert, oriented, in mild respiratory distress Neck : Normal inspection, Supple Cardiovascular : Irregular irregular, S1 S2, trace bilateral lower extremity edema Respiratory : Decreased bilateral air entry, basal fine crackles, wheezes or rhonchi Gastrointestinal: soft, lax, Normal bowel sounds, Non tender Skin : Warm/Dry, No rash Neurological : Alert & oriented x3, No focal deficit Objective Data Current Medications Generic Name Dose Route Start Last Admin Trade Name Freq PRN Reason Stop Dose Admin Acetaminophen 650 mg 12/13/20 16:49 Acetaminophen 325 Mg Tablet PO Q6H PRN Pain, Mild (Pain Scale 1-3) Acetazolamide 500 mg 12/22/20 14:30 12/23/20 06:40 Acetazolamide Sodium 500 Mg Vial IVPUSH 500 mg Q8H DEE Administration Amlodipine Besylate 5 mg 12/14/20 09:00 12/23/20 09:04 Amlodipine Besylate 5 Mg Tablet PO 5 mg DAILY DEE Administration Protocol Benzonatate 100 mg 12/17/20 21:12 12/22/20 10:35 Benzonatate 100 Mg Capsule PO 100 mg TID PRN Administration Cough Flecainide Acetate 150 mg 12/13/20 21:00 12/23/20 09:03 Flecainide Acetate 50 Mg Tablet PO 150 mg BID DEE Administration Heparin Sodium (Porcine) 5,000 unit 12/22/20 14:00 12/23/20 02:32 Heparin Sodium,Porcine 5,000 Unit/Ml Vial SUBCUT 5,000 unit Q12H DEE Administration Lorazepam 0.5 mg 12/21/20 02:20 12/22/20 10:33 Lorazepam 0.5 Mg Tablet PO 0.5 mg Q4H PRN Administration anxiety/restlessness Magnesium Oxide 400 mg 12/13/20 17:30 12/23/20 09:03 Magnesium Oxide 400 Mg Tablet PO 400 mg BIDPC DEE Administration Metoprolol Tartrate 75 mg 12/13/20 21:00 12/23/20 09:03 Metoprolol Tartrate 50 Mg Tablet PO 75 mg BID DEE Administration Protocol Modafinil 100 mg 12/23/20 12:00 12/23/20 12:10 Modafinil 100 Mg Tablet PO 100 mg DAILY DEE Administration Omeprazole 20 mg 12/17/20 16:30 12/23/20 06:40 Omeprazole 20 Mg/10 Ml Susp.Recon PO 20 mg BID@0630,1630 DEE Administration Ondansetron HCl 4 mg 12/13/20 16:49 12/19/20 09:52 Ondansetron Hcl 4 Mg/2 Ml Vial IVPUSH 4 mg Q8H PRN Administration Nausea and Vomiting Sodium Chloride 3 ml 12/14/20 00:00 12/23/20 09:09 0.9 % Sodium Chloride Flush 3 Ml Syringe IVFLUSH 3 ml QSHIFT DEE Administration Trazodone HCl 25 mg 12/14/20 21:20 12/21/20 22:17 Trazodone Hcl 25 Mg Halftab PO 25 mg BEDTIME PRN Administration Insomnia Labs CBC & Chem 7: 12/23/20 09:00 12/23/20 09:00 Assessment and Plan (1) Dysphagia: Status: Acute (2) Metabolic alkalosis: Status: Acute (3) Heart failure with preserved ejection fraction: Status: Acute (4) Acute hyponatremia: Status: Acute (5) Acute diastolic CHF (congestive heart failure): Status: Acute (6) SIADH (syndrome of inappropriate ADH production): Status: Acute Assessment and Plan: 75-year-old female with past medical history of hypertension hyperlipidemia, anxiety, AFib on Eliquis, chronic back pain status post surgery presented hospital a chief complaint of increased weakness, multiple episodes of nausea and vomiting and feeling shortness of breath and with dyspnea on exertion. Metabolic alkalosis CO2 retention Multifactorial, seems more metabolic Discussed with advanced practice provider, increase acetazolamide to 500 t.i.d. and start modafinil Start using BiPAP at bedtime instead of CPAP Acute hyponatremia Related to heart failure,Treated with urea, salt tab and fluid restriction and has resolved. Nephrology following, sodium level now normal at 136 salt tablet and urea discontinued nephrology recommend to hold furosemide Dyphagia concern for stricture, recurrent throat cancer EGD was scheduled but anesthesia canceled the procedure Barium swallow study done this morning GI following, to do endoscopy thirsty morning AFIB Continue flecainide, lopressor, will resume eliquis since upper endoscopy canceled due to electrolyte abnormality. no further need for tele monitoring Nausea vomiting improved, likely related to low sodium acute diastolic chf right sided dysfunction and mild pulm htn, BNP chronically elevated, CXR showing effusion Received Lasix in the emergency room currently seems euvolemic, continue to hold Lasix follow bmp. Atelectasis Encourage incentive spirometry,no indication for antibiotics at this time Etoh dependence CIWA, no signs of withdrawal. care team consult hypertension Continue amlodipine and metoprolol Monitor blood pressure DVT PPX Heparin
--- NOTE | 2020-12-23 16:44 | PM.PNNEP ---
Subjective Subjective Date of Service: 12/23/20 Interval history: Events noted. All recent data reviewed Physical Exam Vital Signs: Vital Signs: Last Vital Signs Temp 97.7 F 12/23/20 15:22 Pulse 89 12/23/20 15:22 Resp 19 12/23/20 15:22 BP 119/75 12/23/20 15:22 Pulse Ox 94 12/23/20 15:22 Oxygen Flow Rate 2 12/13/20 10:47 Body Mass Index 39.2 Const: General: no acute distress Neck: Neck: Yes supple Resp: Auscultation: diminished lung sounds Cardio: Rate: regular rate GI: Palpation (GI): Soft to palpation Neuro: General: moves all extremities Objective Data Labs CBC & Chem 7: 12/23/20 09:00 12/23/20 09:00 Labs: Laboratory Results - last 24 hr 12/23/20 12/23/20 12/23/20 09:00 09:00 09:04 WBC 9.9 RBC 3.62 L Hgb 11.7 L Hct 38.0 MCV 105.0 H MCH 32.3 MCHC 30.8 L RDW 13.0 Plt Count 202 MPV 9.3 L Absolute Nucleated RBC 0.000 Nucleated RBC % (auto) 0.0 VBG pH 7.32 VBG pCO2 104 VBG pO2 46 VBG HCO3 54 H VBG O2 Saturation 72.0 VBG Base Excess 22.2 Sodium 137 Potassium 4.0 Chloride 84 L Carbon Dioxide 45 H* Anion Gap 12 BUN 26 H Creatinine 0.81 Estim Creat Clear Calc 77.8 Estimated GFR > 60 Random Glucose 132 H Calcium 9.1 Assessment & Plan Assessment and plan (1) Metabolic alkalosis: Problem details: serum sodium normalized; hold furosemide; Diamox as ordered for now BiPAP; Labs AM Status: Acute Time Spent With Patient Time: Total time spent is greater than 50% in coordination of care (as documented) at patient's floor/unit and/or counseling patient: Procedures Date of Service Date of Service: 12/23/20
[2020-12-23] MEDS: traZODone HCL 25 MG HALFTAB PO (23:01)
[2020-12-24] VITALS (21 sets, daily range): BP systolic 106–133; BP diastolic 57–96; PULSE 85–128; RESP 15–20; TEMP 36.2–36.8; O2SAT 90–98
[2020-12-24] MEDS: Heparin Sodium,Porcine 5,000 UNIT/ML VIAL 5000 UNIT SUBCUT (02:34)
[2020-12-24] MEDS: acetaZOLAMIDE sodium 500 MG VIAL IVPUSH ×3 (05:57→21:20)
[2020-12-24 07:14] LABS: Hematocrit 36.2 % (37-47); Hemoglobin 11.1 g/dl (12.0-16.0); Mean Corpuscular HGB Conc 30.7 g/dl (31.0-35.0); Mean Corpuscular Hemoglobin 32.2 pg (27.0-33.0); Mean Corpuscular Volume 104.9 fL (80-98); Mean Platelet Volume 9.5 fL (9.4-12.3); Platelet Count 166 X10*3/uL (160-400); Red Blood Count 3.45 X10*6/uL (4.20-5.50); Red Cell Distribution Width 13.1 % (11.0-16.0); White Blood Count 9.8 X10*3/uL (4.8-10.8)
[2020-12-24 07:20] LABS: VBG HCO3 53 mmol/L (22-26); VBG pCO2 91 mmHg; VBG pH 7.37 (7.32-7.43); VBG pO2 59 mmHg
[2020-12-24 07:22] LABS: Venous Blood Gas Refer to POC result
[2020-12-24 08:05] LABS: Anion Gap 9 (12-20); Blood Urea Nitrogen 28 mg/dL (9-16); Calcium 9.3 mg/dL (8.4-10.2); Carbon Dioxide 46 mmol/L (22-29); Chloride 85 mmol/L (96-108); Creatinine Clr Calc Pharmacy 79.7; Estimated Glomerular Filt Rate > 60; Glucose Random 104 mg/dL (60-115); Potassium 3.6 mmol/L (3.3-5.1); Sodium 136 mmol/L (135-145)
[2020-12-24] MEDS: Flecainide Acetate 50 MG TABLET 150 MG PO ×2 (08:27→21:20)
[2020-12-24] MEDS: modafiniL 100 MG TABLET PO (08:31)
[2020-12-24] MEDS: Metoprolol Tartrate 50 MG TABLET 75 MG PO ×2 (08:31→21:21)
[2020-12-24] MEDS: Magnesium Oxide 400 MG TABLET PO ×2 (08:34→17:49)
[2020-12-24] MEDS: amLODIPine Besylate 5 MG TABLET PO (08:34)
[2020-12-24] MEDS: 0.9 % Sodium Chloride Flush 3 ML SYRINGE IVFLUSH ×3 (08:35→21:22)
--- NOTE | 2020-12-24 10:21 | P.PNNP_ITS ---
Subjective Subjective Date of Service: 12/24/20 Interval history: Events noted. All recent data reviewed; D/W Med Attending Physical Exam 2 Vital Signs: Vital Signs: Last Vital Signs Temp 97.5 F 12/24/20 07:22 Pulse 92 12/24/20 08:34 Resp 18 12/24/20 07:22 BP 132/76 12/24/20 08:34 Pulse Ox 94 12/24/20 07:22 Oxygen Flow Rate 2 12/13/20 10:47 Body Mass Index 39.2 Const: General: no acute distress Neck: Neck: Yes supple Resp: Auscultation: diminished lung sounds Cardio: Rate: regular rate GI: Palpation (GI): Soft to palpation Neuro: General: moves all extremities Objective Data Labs CBC & Chem 7: 12/24/20 07:05 12/24/20 07:05 Labs: Laboratory Results - last 24 hr 12/24/20 12/24/20 12/24/20 07:05 07:05 07:13 WBC 9.8 RBC 3.45 L Hgb 11.1 L Hct 36.2 L MCV 104.9 H MCH 32.2 MCHC 30.7 L RDW 13.1 Plt Count 166 MPV 9.5 Absolute Nucleated RBC 0.000 Nucleated RBC % (auto) 0.0 VBG pH 7.37 VBG pCO2 91 VBG pO2 59 VBG HCO3 53 H VBG O2 Saturation 87.0 VBG Base Excess 23.0 Sodium 136 Potassium 3.6 Chloride 85 L Carbon Dioxide 46 H* Anion Gap 9 L BUN 28 H Creatinine 0.79 Estim Creat Clear Calc 79.7 Estimated GFR > 60 Random Glucose 104 Calcium 9.3 Assessment & Plan Assessment and plan (1) Metabolic alkalosis: Problem details: serum sodium normalized; hold furosemide; Diamox as ordered for now BiPAP; Keep K over 4; Labs AM Status: Acute Time Spent With Patient Time: Total time spent is greater than 50% in coordination of care (as documented) at patient's floor/unit and/or counseling patient: Procedures Date of Service Date of Service: 12/24/20
[2020-12-24] MEDS: Potassium Chloride Packet 20 MEQ PACKET 40 MEQ PO (11:17)
--- NOTE | 2020-12-24 14:52 | HO.PM.IMPN ---
Subjective Subjective Date of Service: 12/24/20 Interval History: The patient was seen and evaluated this morning Laying in bed, feels tired but more alert today, use the BiPAP overnight Denies any fever, chills or shortness of breath No reported other overnight events. Systemic review: No fever, chills but reported general weakness No chest pain, palpitation No shortness of breath or coughing Blood work showing Better VBG No abdominal pain, nausea or vomiting No urinary symptoms No any rash or wounds Physical Exam Vital Signs: Vital Signs: Last Vital Signs Temp 97.2 F 12/24/20 11:46 Pulse 112 H 12/24/20 11:46 Resp 19 12/24/20 11:46 BP 125/81 12/24/20 11:46 Pulse Ox 94 12/24/20 11:46 Oxygen Flow Rate 2 12/13/20 10:47 Body Mass Index 39.2 Const: Other: Constitutional : Alert, oriented, in mild respiratory distress Neck : Normal inspection, Supple Cardiovascular : Irregular irregular, S1 S2, trace bilateral lower extremity edema Respiratory : Decreased bilateral air entry, basal fine crackles, wheezes or rhonchi Gastrointestinal: soft, lax, Normal bowel sounds, Non tender Skin : Warm/Dry, No rash Neurological : Alert & oriented x3, No focal deficit Objective Data Current Medications Generic Name Dose Route Start Last Admin Trade Name Freq PRN Reason Stop Dose Admin Acetaminophen 650 mg 12/13/20 16:49 Acetaminophen 325 Mg Tablet PO Q6H PRN Pain, Mild (Pain Scale 1-3) Acetazolamide 500 mg 12/22/20 14:30 12/24/20 14:29 Acetazolamide Sodium 500 Mg Vial IVPUSH 500 mg Q8H DEE Administration Amlodipine Besylate 5 mg 12/14/20 09:00 12/24/20 08:34 Amlodipine Besylate 5 Mg Tablet PO 5 mg DAILY DEE Administration Protocol Benzonatate 100 mg 12/17/20 21:12 12/22/20 10:35 Benzonatate 100 Mg Capsule PO 100 mg TID PRN Administration Cough Flecainide Acetate 150 mg 12/13/20 21:00 12/24/20 08:27 Flecainide Acetate 50 Mg Tablet PO 150 mg BID DEE Administration Heparin Sodium (Porcine) 5,000 unit 12/22/20 14:00 12/24/20 02:34 Heparin Sodium,Porcine 5,000 Unit/Ml Vial SUBCUT 5,000 unit Q12H DEE Administration Lorazepam 0.5 mg 12/21/20 02:20 12/22/20 10:33 Lorazepam 0.5 Mg Tablet PO 0.5 mg Q4H PRN Administration anxiety/restlessness Magnesium Oxide 400 mg 12/13/20 17:30 12/24/20 08:34 Magnesium Oxide 400 Mg Tablet PO 400 mg BIDPC DEE Administration Metoprolol Tartrate 75 mg 12/13/20 21:00 12/24/20 08:31 Metoprolol Tartrate 50 Mg Tablet PO 75 mg BID DEE Administration Protocol Modafinil 100 mg 12/24/20 08:30 12/24/20 08:31 Modafinil 100 Mg Tablet PO 100 mg DAILY@0800 DEE Administration Omeprazole 20 mg 12/17/20 16:30 12/24/20 05:57 Omeprazole 20 Mg/10 Ml Susp.Recon PO 20 mg BID@0630,1630 DEE Administration Ondansetron HCl 4 mg 12/13/20 16:49 12/19/20 09:52 Ondansetron Hcl 4 Mg/2 Ml Vial IVPUSH 4 mg Q8H PRN Administration Nausea and Vomiting Sodium Chloride 3 ml 12/14/20 00:00 12/24/20 08:35 0.9 % Sodium Chloride Flush 3 Ml Syringe IVFLUSH 3 ml QSHIFT DEE Administration Trazodone HCl 25 mg 12/14/20 21:20 12/23/20 23:01 Trazodone Hcl 25 Mg Halftab PO 25 mg BEDTIME PRN Administration Insomnia Labs CBC & Chem 7: 12/24/20 07:05 12/24/20 07:05 Assessment and Plan (1) Dysphagia: Status: Acute (2) Metabolic alkalosis: Status: Acute (3) Heart failure with preserved ejection fraction: Status: Acute (4) Acute hyponatremia: Status: Acute (5) Acute diastolic CHF (congestive heart failure): Status: Acute (6) SIADH (syndrome of inappropriate ADH production): Status: Acute Assessment and Plan: 75-year-old female with past medical history of hypertension hyperlipidemia, anxiety, AFib on Eliquis, chronic back pain status post surgery presented hospital a chief complaint of increased weakness, multiple episodes of nausea and vomiting and feeling shortness of breath and with dyspnea on exertion. 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 start modafinil Continue BiPAP at bedtime instead of CPAP Acute hyponatremia Related to heart failure,Treated with urea, salt tab and fluid restriction and has resolved. Nephrology following, sodium level now normal at 136 salt tablet and urea discontinued nephrology recommend to hold furosemide Dyphagia concern for stricture, recurrent throat cancer EGD was scheduled but anesthesia canceled the procedure Barium swallow study done showing area of narrowing and possible stricture GI following, to do endoscopy today AFIB Continue flecainide, lopressor To resume eliquis after the upper endoscopy Nausea vomiting improved, likely related to low sodium acute diastolic chf right sided dysfunction and mild pulm htn, BNP chronically elevated, CXR showing effusion Received Lasix in the emergency room currently seems euvolemic, continue to hold Lasix follow bmp. Atelectasis Encourage incentive spirometry,no indication for antibiotics at this time Etoh dependence CIWA, no signs of withdrawal. care team consult hypertension Continue amlodipine and metoprolol Monitor blood pressure DVT PPX Heparin
--- NOTE | 2020-12-24 15:30 | HO.ANESPROP2 ---
[facility] Active Problems Active Problems: All Active Problems (Updated 12/24/20 @ 10:22 by Iain Starks MD) Metabolic alkalosis (Acute) Dysphagia (Acute) Heart failure with preserved ejection fraction (Acute) Metabolic alkalosis (Acute) Hyperkalemia (Acute) Hyponatremia (Acute) Acute hyponatremia (Acute) CHF (congestive heart failure) (Acute) Fluid overload (Acute) Acute diastolic CHF (congestive heart failure) (Acute) Uncontrolled hypertension (Acute) SIADH (syndrome of inappropriate ADH production) (Acute) Past Medical History 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 If so, by whom?: No Do you feel safe in your current relationship?: No Current Relationship Is there a partner from a previous relationship who is making you feel unsafe now?: No Are you made to feel afraid or neglected: No Are you DNR?: No Advance Directives: No Advance Directives Information Provided: No Do you have thoughts of harming others: None Do you have a plan to hurt others: No Plan Recently lost weight without trying: No Eating poorly because of decreased appetite: No Nutrition Risks: No Nutritional Risk service: No Current occupational status: disabled Meds Allergies Allergy/AdvReac Type Severity Reaction Status Date / Time SEASONAL ALLERGIES Allergy Unknown SNEEZING Uncoded 04/23/20 15:17 RUNNY NOSE Active Medications: Current Medications Generic Name Dose Route Start Last Admin Trade Name Freq PRN Reason Stop Dose Admin Acetaminophen 650 mg 12/13/20 16:49 Acetaminophen 325 Mg Tablet PO Q6H PRN Pain, Mild (Pain Scale 1-3) Acetazolamide 500 mg 12/22/20 14:30 12/24/20 14:29 Acetazolamide Sodium 500 Mg Vial IVPUSH 500 mg Q8H DEE Administration Amlodipine Besylate 5 mg 12/14/20 09:00 12/24/20 08:34 Amlodipine Besylate 5 Mg Tablet PO 5 mg DAILY DEE Administration Protocol Apixaban 5 mg 12/25/20 09:00 Apixaban 5 Mg Tablet PO BID DEE Benzonatate 100 mg 12/17/20 21:12 12/22/20 10:35 Benzonatate 100 Mg Capsule PO 100 mg TID PRN Administration Cough Flecainide Acetate 150 mg 12/13/20 21:00 12/24/20 08:27 Flecainide Acetate 50 Mg Tablet PO 150 mg BID DEE Administration Guaifenesin 600 mg 12/24/20 21:00 Guaifenesin La 600 Mg Tab.Er.12h PO BID [facility] Heparin Sodium (Porcine) 5,000 unit 12/22/20 14:00 12/24/20 02:34 Heparin Sodium,Porcine 5,000 Unit/Ml Vial SUBCUT 5,000 unit Q12H DEE Administration Lorazepam 0.5 mg 12/21/20 02:20 12/22/20 10:33 Lorazepam 0.5 Mg Tablet PO 0.5 mg Q4H PRN Administration anxiety/restlessness Magnesium Oxide 400 mg 12/13/20 17:30 12/24/20 08:34 Magnesium Oxide 400 Mg Tablet PO 400 mg BIDPC DEE Administration Metoprolol Tartrate 75 mg 12/13/20 21:00 12/24/20 08:31 Metoprolol Tartrate 50 Mg Tablet PO 75 mg BID DEE Administration Protocol Modafinil 100 mg 12/24/20 08:30 12/24/20 08:31 Modafinil 100 Mg Tablet PO 100 mg DAILY@0800 DEE Administration Omeprazole 20 mg 12/17/20 16:30 12/24/20 05:57 Omeprazole 20 Mg/10 Ml Susp.Recon PO 20 mg BID@0630,1630 DEE Administration Ondansetron HCl 4 mg 12/13/20 16:49 12/19/20 09:52 Ondansetron Hcl 4 Mg/2 Ml Vial IVPUSH 4 mg Q8H PRN Administration Nausea and Vomiting Sodium Chloride 3 ml 12/14/20 00:00 12/24/20 08:35 0.9 % Sodium Chloride Flush 3 Ml Syringe IVFLUSH 3 ml QSHIFT DEE Administration Trazodone HCl 25 mg 12/14/20 21:20 12/23/20 23:01 Trazodone Hcl 25 Mg Halftab PO 25 mg BEDTIME PRN Administration Insomnia Home Medications Medication Instructions Recorded Confirmed Last Taken Type lorazepam 1 tab PO BID PRN 11/18/20 12/13/20 Unknown History omeprazole 1 cap PO BID 11/18/20 12/13/20 Unknown History simvastatin 1 tab PO DAILY 11/18/20 12/13/20 Unknown History Exam Exam Date and Time: December 24, 2020 153 Height,Weight and Vital Signs: Height 5 ft 6 in Weight 110.223 kg Last Vital Signs Temp 97.7 F 12/24/20 14:54 Pulse 90 12/24/20 14:54 Resp 20 12/24/20 14:54 BP 132/64 12/24/20 14:54 Pulse Ox 97 12/24/20 14:54 Oxygen Flow Rate 2 12/13/20 10:47 Pertinent Lab Results Pertinent Lab Results: Laboratory Tests 12/13/20 12/13/20 12/13/20 11:47 11:47 11:47 WBC 12.4 H RBC 3.59 L Hgb 11.6 L Hct 35.1 L MCV 97.8 MCH 32.3 MCHC 33.0 RDW 12.6 Plt Count 316 MPV 9.3 L Immature Gran % (Auto) 0.5 H Neut % (Auto) 90.8 H Lymph % (Auto) 2.7 L [place] % (Auto) 5.7 Eos % (Auto) 0.2 Baso % (Auto) 0.1 Lymph # (Auto) 0.3 L [place] # (Auto) 0.7 Eos # (Auto) 0.0 Baso # (Auto) 0.0 Abs Immat Gran (auto) 0.06 H Absolute Neuts (auto) 11.3 H Absolute Nucleated RBC 0.000 Nucleated RBC % (auto) 0.0 Smear Tech's Comments VERIFIED PT INR APTT O2 Saturation ABG pH at Pt Temp ABG pH (Temp Correct) ABG pCO2 at Pt Temp ABG pCO2 (Temp Corrct ABG pO2 at Pt Temp ABG pO2 (Temp Correct ABG HCO3 ABG Base Excess (Actual) VBG pH VBG pCO2 VBG pO2 VBG HCO3 VBG O2 Saturation VBG Base Excess Sodium 120 L* Potassium 6.0 H* Chloride 79 L Carbon Dioxide 37 H Anion Gap 10 L BUN 21 H Creatinine 0.66 Estim Creat Clear Calc 94.9 Estimated GFR > 60 Random Glucose 133 H Osmolality Calcium 9.3 Phosphorus Magnesium Total Bilirubin 0.8 AST 23 ALT 27 Alkaline Phosphatase 70 Troponin I High Sens B-Natriuretic Peptide 849 H Total Protein 6.8 Albumin 4.0 Lipase 18 TSH Urine Color Urine Appearance Urine pH Ur Specific [place] Urine Protein Urine Glucose (UA) Urine Ketones Urine Blood Urine Nitrite Ur Leukocyte Esterase Urine Osmolality Ur Random Sodium Ur Random Chloride Ethyl Alcohol COVID-19 ([facility]) COVID-19 Divide 12/13/20 12/13/20 12/13/20 11:47 11:47 11:47 WBC RBC Hgb Hct MCV MCH MCHC RDW Plt Count MPV Immature Gran % (Auto) Neut % (Auto) Lymph % (Auto) [place] % (Auto) Eos % (Auto) Baso % (Auto) Lymph # (Auto) [place] # (Auto) Eos # (Auto) Baso # (Auto) Abs Immat Gran (auto) Absolute Neuts (auto) Absolute Nucleated RBC Nucleated RBC % (auto) Smear Tech's Comments PT 24.0 H D INR 2.0 H APTT 34.2 O2 Saturation ABG pH at Pt Temp ABG pH (Temp Correct) ABG pCO2 at Pt Temp ABG pCO2 (Temp Corrct ABG pO2 at Pt Temp ABG pO2 (Temp Correct ABG HCO3 ABG Base Excess (Actual) VBG pH VBG pCO2 VBG pO2 VBG HCO3 VBG O2 Saturation VBG Base Excess Sodium Potassium Chloride Carbon Dioxide Anion Gap BUN Creatinine Estim Creat Clear Calc Estimated GFR Random Glucose Osmolality Calcium Phosphorus Magnesium Total Bilirubin AST ALT Alkaline Phosphatase Troponin I High Sens 5.9 B-Natriuretic Peptide Total Protein Albumin Lipase TSH Urine Color Urine Appearance Urine pH Ur Specific [place] Urine Protein Urine Glucose (UA) Urine Ketones Urine Blood Urine Nitrite Ur Leukocyte Esterase Urine Osmolality Ur Random Sodium Ur Random Chloride Ethyl Alcohol COVID-19 ([facility]) Negative COVID-19 [employer] Com See Note 12/13/20 12/13/20 12/13/20 11:47 11:47 11:47 WBC RBC Hgb Hct MCV MCH MCHC RDW Plt Count MPV Immature Gran % (Auto) Neut % (Auto) Lymph % (Auto) [place] % (Auto) Eos % (Auto) Baso % (Auto) Lymph # (Auto) [place] # (Auto) Eos # (Auto) Baso # (Auto) Abs Immat Gran (auto) Absolute Neuts (auto) Absolute Nucleated RBC Nucleated RBC % (auto) Smear Tech's Comments PT INR APTT O2 Saturation ABG pH at Pt Temp ABG pH (Temp Correct) ABG pCO2 at Pt Temp ABG pCO2 (Temp Corrct ABG pO2 at Pt Temp ABG pO2 (Temp Correct ABG HCO3 ABG Base Excess (Actual) VBG pH VBG pCO2 VBG pO2 VBG HCO3 VBG O2 Saturation VBG Base Excess Sodium Potassium Chloride Carbon Dioxide Anion Gap BUN Creatinine Estim Creat Clear Calc Estimated GFR Random Glucose Osmolality 262 L Calcium Phosphorus Magnesium 2.0 Total Bilirubin AST ALT Alkaline Phosphatase Troponin I High Sens B-Natriuretic Peptide Total Protein Albumin Lipase TSH Urine Color Urine Appearance Urine pH Ur Specific [place] Urine Protein Urine Glucose (UA) Urine Ketones Urine Blood Urine Nitrite Ur Leukocyte Esterase Urine Osmolality Ur Random Sodium Ur Random Chloride Ethyl Alcohol < 10 COVID-19 ([facility]) COVID-19 Clin Com 12/13/20 12/13/20 12/13/20 12:33 12:33 12:33 WBC RBC Hgb Hct MCV MCH MCHC RDW Plt Count MPV Immature Gran % (Auto) Neut % (Auto) Lymph % (Auto) [place] % (Auto) Eos % (Auto) Baso % (Auto) Lymph # (Auto) [place] # (Auto) Eos # (Auto) Baso # (Auto) Abs Immat Gran (auto) Absolute Neuts (auto) Absolute Nucleated RBC Nucleated RBC % (auto) Smear Tech's Comments PT INR APTT O2 Saturation ABG pH at Pt Temp ABG pH (Temp Correct) ABG pCO2 at Pt Temp ABG pCO2 (Temp Corrct ABG pO2 at Pt Temp ABG pO2 (Temp Correct ABG HCO3 ABG Base Excess (Actual) VBG pH VBG pCO2 VBG pO2 VBG HCO3 VBG O2 Saturation VBG Base Excess Sodium Potassium Chloride Carbon Dioxide Anion Gap BUN Creatinine Estim Creat Clear Calc Estimated GFR Random Glucose Osmolality Calcium Phosphorus Magnesium Total Bilirubin AST ALT Alkaline Phosphatase Troponin I High Sens B-Natriuretic Peptide Total Protein Albumin Lipase TSH Urine Color YELLOW Urine Appearance CLEAR Urine pH 6.0 Ur Specific Andrews >= 1.030 H Urine Protein TRACE Urine Glucose (UA) NEG Urine Ketones NEG Urine Blood NEG Urine Nitrite NEG Ur Leukocyte Esterase NEG Urine Osmolality 546 Ur Random Sodium < 20.0 Ur Random Chloride Ethyl Alcohol COVID-19 ([facility]) COVID-19 Divide 12/13/20 12/13/20 12/14/20 15:48 15:48 04:29 WBC RBC Hgb Hct MCV MCH MCHC RDW Plt Count MPV Immature Gran % (Auto) Neut % (Auto) Lymph % (Auto) [place] % (Auto) Eos % (Auto) Baso % (Auto) Lymph # (Auto) [place] # (Auto) Eos # (Auto) Baso # (Auto) Abs Immat Gran (auto) Absolute Neuts (auto) Absolute Nucleated RBC Nucleated RBC % (auto) Smear Tech's Comments PT INR APTT O2 Saturation ABG pH at Pt Temp ABG pH (Temp Correct) ABG pCO2 at Pt Temp ABG pCO2 (Temp Corrct ABG pO2 at Pt Temp ABG pO2 (Temp Correct ABG HCO3 ABG Base Excess (Actual) VBG pH VBG pCO2 VBG pO2 VBG HCO3 VBG O2 Saturation VBG Base Excess Sodium 119 L* Potassium 5.7 H Chloride 78 L Carbon Dioxide 35 H Anion Gap 12 BUN 19 H Creatinine 0.65 Estim Creat Clear Calc 96.3 Estimated GFR > 60 Random Glucose 122 H Osmolality Calcium 8.9 Phosphorus Magnesium Total Bilirubin AST ALT Alkaline Phosphatase Troponin I High Sens 5.8 B-Natriuretic Peptide 1106 H Total Protein Albumin Lipase TSH Urine Color Urine Appearance Urine pH Ur Specific [place] Urine Protein Urine Glucose (UA) Urine Ketones Urine Blood Urine Nitrite Ur Leukocyte Esterase Urine Osmolality Ur Random Sodium Ur Random Chloride Ethyl Alcohol COVID-19 ([facility]) COVID-19 Divide 12/14/20 12/14/20 12/14/20 04:29 04:29 08:36 WBC 11.0 H RBC 3.60 L Hgb 11.5 L Hct 35.6 L MCV 98.9 H MCH 31.9 MCHC 32.3 RDW 12.5 Plt Count 321 MPV 9.5 Immature Gran % (Auto) 0.6 H Neut % (Auto) 81.8 H Lymph % (Auto) 5.7 L [place] % (Auto) 10.3 Eos % (Auto) 1.5 Baso % (Auto) 0.1 Lymph # (Auto) 0.6 L [place] # (Auto) 1.1 Eos # (Auto) 0.2 Baso # (Auto) 0.0 Abs Immat Gran (auto) 0.07 H Absolute Neuts (auto) 9.0 H Absolute Nucleated RBC 0.000 Nucleated RBC % (auto) 0.0 Smear Tech's Comments VERIFIED PT INR APTT O2 Saturation ABG pH at Pt Temp ABG pH (Temp Correct) ABG pCO2 at Pt Temp ABG pCO2 (Temp Corrct ABG pO2 at Pt Temp ABG pO2 (Temp Correct ABG HCO3 ABG Base Excess (Actual) VBG pH VBG pCO2 VBG pO2 VBG HCO3 VBG O2 Saturation VBG Base Excess Sodium 128 L Potassium 4.2 D Chloride 77 L Carbon Dioxide 45 H* D Anion Gap 10 L BUN 22 H Creatinine 0.60 Estim Creat Clear Calc 104.4 Estimated GFR > 60 Random Glucose 100 Osmolality Calcium 9.0 Phosphorus Magnesium Total Bilirubin AST ALT Alkaline Phosphatase Troponin I High Sens B-Natriuretic Peptide Total Protein Albumin Lipase TSH 1.38 Urine Color Urine Appearance Urine pH Ur Specific [place] Urine Protein Urine Glucose (UA) Urine Ketones Urine Blood Urine Nitrite Ur Leukocyte Esterase Urine Osmolality Ur Random Sodium Ur Random Chloride Ethyl Alcohol COVID-19 ([facility]) COVID-19 Clin Com 12/14/20 12/14/20 12/14/20 08:36 13:11 13:11 WBC RBC Hgb Hct MCV MCH MCHC RDW Plt Count MPV Immature Gran % (Auto) Neut % (Auto) Lymph % (Auto) [place] % (Auto) Eos % (Auto) Baso % (Auto) Lymph # (Auto) [place] # (Auto) Eos # (Auto) Baso # (Auto) Abs Immat Gran (auto) Absolute Neuts (auto) Absolute Nucleated RBC Nucleated RBC % (auto) Smear Tech's Comments PT INR APTT O2 Saturation ABG pH at Pt Temp ABG pH (Temp Correct) ABG pCO2 at Pt Temp ABG pCO2 (Temp Corrct ABG pO2 at Pt Temp ABG pO2 (Temp Correct ABG HCO3 ABG Base Excess (Actual) VBG pH VBG pCO2 VBG pO2 VBG HCO3 VBG O2 Saturation VBG Base Excess Sodium 125 L Potassium 4.0 Chloride 79 L Carbon Dioxide 40 H* Anion Gap 10 L BUN 20 H Creatinine 0.60 Estim Creat Clear Calc 104.4 Estimated GFR > 60 Random Glucose 146 H D Osmolality Calcium 8.6 Phosphorus Magnesium 1.5 L Total Bilirubin AST ALT Alkaline Phosphatase Troponin I High Sens B-Natriuretic Peptide 1285 H Cancelled Total Protein Albumin Lipase TSH Urine Color Urine Appearance Urine pH Ur Specific [place] Urine Protein Urine Glucose (UA) Urine Ketones Urine Blood Urine Nitrite Ur Leukocyte Esterase Urine Osmolality Ur Random Sodium Ur Random Chloride Ethyl Alcohol COVID-19 ([facility]) COVID-19 Divide 12/15/20 12/15/20 12/16/20 11:15 12:51 09:27 WBC RBC Hgb Hct MCV MCH MCHC RDW Plt Count MPV Immature Gran % (Auto) Neut % (Auto) Lymph % (Auto) [place] % (Auto) Eos % (Auto) Baso % (Auto) Lymph # (Auto) [place] # (Auto) Eos # (Auto) Baso # (Auto) Abs Immat Gran (auto) Absolute Neuts (auto) Absolute Nucleated RBC Nucleated RBC % (auto) Smear Tech's Comments PT INR APTT O2 Saturation ABG pH at Pt Temp ABG pH (Temp Correct) ABG pCO2 at Pt Temp ABG pCO2 (Temp Corrct ABG pO2 at Pt Temp ABG pO2 (Temp Correct ABG HCO3 ABG Base Excess (Actual) VBG pH VBG pCO2 VBG pO2 VBG HCO3 VBG O2 Saturation VBG Base Excess Sodium 130 L 134 L Potassium 3.9 3.6 Chloride 79 L 80 L Carbon Dioxide 44 H* 50 H* Anion Gap 11 L 8 L BUN 16 10 Creatinine 0.62 0.59 Estim Creat Clear Calc 101.0 106.1 Estimated GFR > 60 > 60 Random Glucose 171 H 113 Osmolality Calcium 8.8 9.0 Phosphorus Magnesium Total Bilirubin AST ALT Alkaline Phosphatase Troponin I High Sens B-Natriuretic Peptide Total Protein Albumin Lipase TSH Urine Color Urine Appearance Urine pH Ur Specific [place] Urine Protein Urine Glucose (UA) Urine Ketones Urine Blood Urine Nitrite Ur Leukocyte Esterase Urine Osmolality Ur Random Sodium Ur Random Chloride 26.0 Ethyl Alcohol COVID-19 ([facility]) COVID-19 Divide 12/16/20 12/17/20 12/18/20 13:03 08:25 14:09 WBC RBC Hgb Hct MCV MCH MCHC RDW Plt Count MPV Immature Gran % (Auto) Neut % (Auto) Lymph % (Auto) [place] % (Auto) Eos % (Auto) Baso % (Auto) Lymph # (Auto) [place] # (Auto) Eos # (Auto) Baso # (Auto) Abs Immat Gran (auto) Absolute Neuts (auto) Absolute Nucleated RBC Nucleated RBC % (auto) Smear Tech's Comments PT INR APTT O2 Saturation ABG pH at Pt Temp ABG pH (Temp Correct) ABG pCO2 at Pt Temp ABG pCO2 (Temp Corrct ABG pO2 at Pt Temp ABG pO2 (Temp Correct ABG HCO3 ABG Base Excess (Actual) VBG pH VBG pCO2 VBG pO2 VBG HCO3 VBG O2 Saturation VBG Base Excess Sodium 132 L 132 L Potassium 4.0 4.5 Chloride 80 L 80 L Carbon Dioxide 44 H* 45 H* Anion Gap 12 12 BUN 13 11 Creatinine 0.63 0.62 Estim Creat Clear Calc 99.4 101.0 Estimated GFR > 60 > 60 Random Glucose 157 H D 104 Osmolality Calcium 9.1 9.4 Phosphorus Magnesium Total Bilirubin AST ALT Alkaline Phosphatase Troponin I High Sens B-Natriuretic Peptide Total Protein Albumin Lipase TSH Urine Color Urine Appearance Urine pH Ur Specific [place] Urine Protein Urine Glucose (UA) Urine Ketones Urine Blood Urine Nitrite Ur Leukocyte Esterase Urine Osmolality Ur Random Sodium Ur Random Chloride Ethyl Alcohol COVID-19 ([facility]) Negative COVID-19 Clin Com See Note 12/18/20 12/19/20 12/20/20 14:27 12:46 10:33 WBC RBC Hgb Hct MCV MCH MCHC RDW Plt Count MPV Immature Gran % (Auto) Neut % (Auto) Lymph % (Auto) [place] % (Auto) Eos % (Auto) Baso % (Auto) Lymph # (Auto) [place] # (Auto) Eos # (Auto) Baso # (Auto) Abs Immat Gran (auto) Absolute Neuts (auto) Absolute Nucleated RBC Nucleated RBC % (auto) Smear Tech's Comments PT INR APTT O2 Saturation ABG pH at Pt Temp ABG pH (Temp Correct) ABG pCO2 at Pt Temp ABG pCO2 (Temp Corrct ABG pO2 at Pt Temp ABG pO2 (Temp Correct ABG HCO3 ABG Base Excess (Actual) VBG pH VBG pCO2 VBG pO2 VBG HCO3 VBG O2 Saturation VBG Base Excess Sodium 134 L 133 L 136 Potassium 5.2 H 5.3 H 5.0 Chloride 82 L 83 L 83 L Carbon Dioxide 47 H* 46 H* 47 H* Anion Gap 10 L 9 L 11 L BUN 15 20 H 21 H Creatinine 0.69 0.71 0.69 Estim Creat Clear Calc 90.7 88.1 90.7 Estimated GFR > 60 > 60 > 60 Random Glucose 129 H 117 H 143 H Osmolality Calcium 9.6 9.1 9.2 Phosphorus 4.6 H Magnesium 1.8 Total Bilirubin AST ALT Alkaline Phosphatase Troponin I High Sens B-Natriuretic Peptide Total Protein Albumin Lipase TSH Urine Color Urine Appearance Urine pH Ur Specific [place] Urine Protein Urine Glucose (UA) Urine Ketones Urine Blood Urine Nitrite Ur Leukocyte Esterase Urine Osmolality Ur Random Sodium Ur Random Chloride Ethyl Alcohol COVID-19 ([facility]) COVID-19 [employer] [facility] 12/21/20 12/21/20 12/22/20 05:23 05:23 06:22 WBC RBC Hgb Hct MCV MCH MCHC RDW Plt Count MPV Immature Gran % (Auto) Neut % (Auto) Lymph % (Auto) [place] % (Auto) Eos % (Auto) Baso % (Auto) Lymph # (Auto) [place] # (Auto) Eos # (Auto) Baso # (Auto) Abs Immat Gran (auto) Absolute Neuts (auto) Absolute Nucleated RBC Nucleated RBC % (auto) Smear Tech's Comments PT INR APTT O2 Saturation ABG pH at Pt Temp ABG pH (Temp Correct) ABG pCO2 at Pt Temp ABG pCO2 (Temp Corrct ABG pO2 at Pt Temp ABG pO2 (Temp Correct ABG HCO3 ABG Base Excess (Actual) VBG pH VBG pCO2 VBG pO2 VBG HCO3 VBG O2 Saturation VBG Base Excess Sodium 136 137 Potassium 5.4 H 4.8 Chloride 83 L 85 L Carbon Dioxide 45 H* 47 H* Anion Gap 13 10 L BUN 21 H 21 H Creatinine 0.67 0.74 Estim Creat Clear Calc 93.4 85.1 Estimated GFR > 60 > 60 Random Glucose 98 106 Osmolality Calcium 9.4 9.2 Phosphorus Magnesium Total Bilirubin AST ALT Alkaline Phosphatase Troponin I High Sens B-Natriuretic Peptide 962 H Total Protein Albumin Lipase TSH Urine Color Urine Appearance Urine pH Ur Specific [place] Urine Protein Urine Glucose (UA) Urine Ketones Urine Blood Urine Nitrite Ur Leukocyte Esterase Urine Osmolality Ur Random Sodium Ur Random Chloride Ethyl Alcohol COVID-19 ([facility]) COVID-19 Divide 12/22/20 12/22/20 12/23/20 06:31 13:25 09:00 WBC 9.5 9.9 RBC 3.55 L 3.62 L Hgb 11.3 L 11.7 L Hct 37.0 38.0 MCV 104.2 H 105.0 H MCH 31.8 32.3 MCHC 30.5 L 30.8 L RDW 12.9 13.0 Plt Count 209 D 202 MPV 9.1 L 9.3 L Immature Gran % (Auto) 0.6 H Neut % (Auto) 86.6 H Lymph % (Auto) 5.6 L [place] % (Auto) 6.0 Eos % (Auto) 0.9 Baso % (Auto) 0.3 Lymph # (Auto) 0.5 L [place] # (Auto) 0.6 Eos # (Auto) 0.1 Baso # (Auto) 0.0 Abs Immat Gran (auto) 0.06 H Absolute Neuts (auto) 8.2 Absolute Nucleated RBC 0.000 0.000 Nucleated RBC % (auto) 0.0 0.0 Smear Tech's Comments VERIFIED PT INR APTT O2 Saturation 90.0 ABG pH at Pt Temp 7.33 L ABG pH (Temp Correct) 7.33 L ABG pCO2 at Pt Temp 96 H* ABG pCO2 (Temp Corrct 96 H* ABG pO2 at Pt Temp 66 L ABG pO2 (Temp Correct 66 L ABG HCO3 51 H ABG Base Excess (Actual) 20.6 VBG pH VBG pCO2 VBG pO2 VBG HCO3 VBG O2 Saturation VBG Base Excess Sodium Potassium Chloride Carbon Dioxide Anion Gap BUN Creatinine Estim Creat Clear Calc Estimated GFR Random Glucose Osmolality Calcium Phosphorus Magnesium Total Bilirubin AST ALT Alkaline Phosphatase Troponin I High Sens B-Natriuretic Peptide Total Protein Albumin Lipase TSH Urine Color Urine Appearance Urine pH Ur Specific [place] Urine Protein Urine Glucose (UA) Urine Ketones Urine Blood Urine Nitrite Ur Leukocyte Esterase Urine Osmolality Ur Random Sodium Ur Random Chloride Ethyl Alcohol COVID-19 ([facility]) COVID-19 [employer] [facility] 12/23/20 12/23/20 12/24/20 09:00 09:04 07:05 WBC 9.8 RBC 3.45 L Hgb 11.1 L Hct 36.2 L MCV 104.9 H MCH 32.2 MCHC 30.7 L RDW 13.1 Plt Count 166 MPV 9.5 Immature Gran % (Auto) Neut % (Auto) Lymph % (Auto) [place] % (Auto) Eos % (Auto) Baso % (Auto) Lymph # (Auto) [place] # (Auto) Eos # (Auto) Baso # (Auto) Abs Immat Gran (auto) Absolute Neuts (auto) Absolute Nucleated RBC 0.000 Nucleated RBC % (auto) 0.0 Smear Tech's Comments PT INR APTT O2 Saturation ABG pH at Pt Temp ABG pH (Temp Correct) ABG pCO2 at Pt Temp ABG pCO2 (Temp Corrct ABG pO2 at Pt Temp ABG pO2 (Temp Correct ABG HCO3 ABG Base Excess (Actual) VBG pH 7.32 VBG pCO2 104 VBG pO2 46 VBG HCO3 54 H VBG O2 Saturation 72.0 VBG Base Excess 22.2 Sodium 137 Potassium 4.0 Chloride 84 L Carbon Dioxide 45 H* Anion Gap 12 BUN 26 H Creatinine 0.81 Estim Creat Clear Calc 77.8 Estimated GFR > 60 Random Glucose 132 H Osmolality Calcium 9.1 Phosphorus Magnesium Total Bilirubin AST ALT Alkaline Phosphatase Troponin I High Sens B-Natriuretic Peptide Total Protein Albumin Lipase TSH Urine Color Urine Appearance Urine pH Ur Specific [place] Urine Protein Urine Glucose (UA) Urine Ketones Urine Blood Urine Nitrite Ur Leukocyte Esterase Urine Osmolality Ur Random Sodium Ur Random Chloride Ethyl Alcohol COVID-19 ([facility]) COVID-19 Clin Com 12/24/20 12/24/20 07:05 07:13 WBC RBC Hgb Hct MCV MCH MCHC RDW Plt Count MPV Immature Gran % (Auto) Neut % (Auto) Lymph % (Auto) [place] % (Auto) Eos % (Auto) Baso % (Auto) Lymph # (Auto) [place] # (Auto) Eos # (Auto) Baso # (Auto) Abs Immat Gran (auto) Absolute Neuts (auto) Absolute Nucleated RBC Nucleated RBC % (auto) Smear Tech's Comments PT INR APTT O2 Saturation ABG pH at Pt Temp ABG pH (Temp Correct) ABG pCO2 at Pt Temp ABG pCO2 (Temp Corrct ABG pO2 at Pt Temp ABG pO2 (Temp Correct ABG HCO3 ABG Base Excess (Actual) VBG pH 7.37 VBG pCO2 91 VBG pO2 59 VBG HCO3 53 H VBG O2 Saturation 87.0 VBG Base Excess 23.0 Sodium 136 Potassium 3.6 Chloride 85 L Carbon Dioxide 46 H* Anion Gap 9 L BUN 28 H Creatinine 0.79 Estim Creat Clear Calc 79.7 Estimated GFR > 60 Random Glucose 104 Osmolality Calcium 9.3 Phosphorus Magnesium Total Bilirubin AST ALT Alkaline Phosphatase Troponin I High Sens B-Natriuretic Peptide Total Protein Albumin Lipase TSH Urine Color Urine Appearance Urine pH Ur Specific [place] Urine Protein Urine Glucose (UA) Urine Ketones Urine Blood Urine Nitrite Ur Leukocyte Esterase Urine Osmolality Ur Random Sodium Ur Random Chloride Ethyl Alcohol COVID-19 ([facility]) COVID-19 Clin Com Airway Mallampati Class: III TM Dist: >3cm Neck ROM: Full Loose/Missing/Broken Teeth: Yes, Upper and Lower
--- NOTE | 2020-12-24 15:47 | P.OP_ITS ---
Operative Note Operative Note Date of Service: 12/24/20 Narrative: Procedure Description: EGD FLEXIBLE TRANSORAL UPPER GASTROINTESTINAL ENDOSCOPY UPPER ENDOSCOPY Consent: Indications for the procedure and potential complications of bleeding, perforation, reaction to medications and missed diagnosis were discussed with the patient and informed consent was obtained. Instrument: Olympus GIF H 190 J mid size upper endoscope Monitoring: Vital signs and clinical assessment, continuous EKG monitoring, Pulse oximetry, Carbon Dioxide monitoring and blood pressure monitoring were done throughout the procedure. Procedure: The patient was placed in the left lateral decubitis position and pre-procedure medications were administered and a bite block was placed. The endoscope was inserted into the mouth and advanced under direct vision to the third part of duodenum. A careful inspection was made as the upper endoscope was withdrawn including a retroflexed examination of the proximal stomach; Findings and interventions are described below. Findings: Larynx:normal Esophagus: GE junction at 45 cm, diaphragm hiatus at 45 cm, no varices or esophagitis. 18 mm balloon dilation done at GEJ with small tear noted, also dilation at 18 mm at UES-no tear seen. Stomach: Patchy gastric erythema with many polyps in stomach 5 of these aere 10- 15 mm in size and pretty erythematous, Biopsies were obtained. Grade 2 flap valve on retroflexed examination of the cardia. Duodenum: Normal bulb and descending duodenum, Intervention: Biopsies as noted above, dilation Impression/Findings: gastric polyps esophageal stricture PLAN: cont with PPI as doing await polyp path can have diet as tolerated, if dysphagia perists then should get a modified barium swallow can restart anti coagulant tomorrow
--- NOTE | 2020-12-24 15:47 | P.BOP_ITS ---
Brief Operative Note Date of Service: 12/24/20 Pre-op diagnosis: dysphagia Post-op diagnosis: same Procedure: see op note Surgeon: Samuel Whiting MD Anesthesia: MAC Was an Sugar Cane Planter used for this Procedure?: No Estimated blood loss (mL): 5 Condition: stable Disposition: PACU
--- NOTE | 2020-12-24 15:52 | PC.NURSE ---
Patient took AM pills with medicine cup of applesauce at 0830 as well as 8oz of water with Potassium. Dr. Faye notified. Okay to bring patient down at 3pm for procedure.
[2020-12-24] MEDS: guaiFENesin LA 600 MG TAB.ER.12H PO (21:20)
[2020-12-24] MEDS: traZODone HCL 25 MG HALFTAB PO (23:27)
[2020-12-25] VITALS (15 sets, daily range): BP systolic 101–134; BP diastolic 59–75; PULSE 69–125; RESP 16–25; TEMP 36.3–37.1; O2SAT 92–97
[2020-12-25] MEDS: Heparin Sodium,Porcine 5,000 UNIT/ML VIAL 5000 UNIT SUBCUT ×2 (02:12→13:50)
[2020-12-25] MEDS: acetaZOLAMIDE sodium 500 MG VIAL IVPUSH ×3 (06:10→22:56)
[2020-12-25 06:11] LABS: Venous Blood Gas Refer to POC result
[2020-12-25 06:12] LABS: VBG Base Excess 21.9 mmol/L; VBG HCO3 51 mmol/L (22-26); VBG pCO2 80 mmHg; VBG pH 7.41 (7.32-7.43); VBG pO2 43 mmHg
[2020-12-25] MEDS: Acetaminophen 325 MG TABLET 650 MG PO (06:16)
[2020-12-25 06:17] LABS: Hematocrit 35.5 % (37-47); Hemoglobin 11.2 g/dl (12.0-16.0); Mean Corpuscular HGB Conc 31.5 g/dl (31.0-35.0); Mean Corpuscular Hemoglobin 32.3 pg (27.0-33.0); Mean Corpuscular Volume 102.3 fL (80-98); Mean Platelet Volume 9.7 fL (9.4-12.3); Platelet Count 165 X10*3/uL (160-400); Red Blood Count 3.47 X10*6/uL (4.20-5.50); White Blood Count 8.5 X10*3/uL (4.8-10.8)
[2020-12-25 06:49] LABS: Anion Gap 10 (12-20); Blood Urea Nitrogen 28 mg/dL (9-16); Calcium 9.1 mg/dL (8.4-10.2); Carbon Dioxide 43 mmol/L (22-29); Chloride 88 mmol/L (96-108); Estimated Glomerular Filt Rate > 60; Glucose Random 100 mg/dL (60-115); Potassium 3.2 mmol/L (3.3-5.1); Sodium 138 mmol/L (135-145)
--- NOTE | 2020-12-25 09:48 | HO.POSTANES ---
Post Anesthesia Evaluation Post Anesthesia Evaluation Vital Signs: Vital Signs Temp Pulse Resp BP Pulse Ox 12/25/20 07:37 97.4 F 86 18 101/65 97 12/25/20 04:00 97.9 F 69 20 134/65 94 12/25/20 00:09 16 12/24/20 23:00 97.7 F 85 18 119/68 95 Anesthesia: Monitored Mental Status: Awake Pain Control: Satisfactory Nausea/Vomiting: None Hydration: Adequate Anesthesia-Related Issues: No Anes. Related Issues
[2020-12-25] MEDS: 0.9 % Sodium Chloride Flush 3 ML SYRINGE IVFLUSH ×3 (09:52→20:41)
[2020-12-25] MEDS: Potassium Chloride Packet 20 MEQ PACKET 40 MEQ PO ×2 (09:52→13:49)
[2020-12-25] MEDS: Metoprolol Tartrate 50 MG TABLET 75 MG PO ×2 (09:54→20:39)
[2020-12-25] MEDS: Flecainide Acetate 50 MG TABLET 150 MG PO ×2 (09:55→20:40)
[2020-12-25] MEDS: guaiFENesin LA 600 MG TAB.ER.12H PO ×2 (09:56→20:40)
[2020-12-25] MEDS: amLODIPine Besylate 5 MG TABLET PO (09:56)
[2020-12-25] MEDS: Magnesium Oxide 400 MG TABLET PO ×2 (09:56→16:53)
[2020-12-25] MEDS: modafiniL 100 MG TABLET PO (09:57)
[2020-12-25] MEDS: Apixaban 5 MG TABLET PO ×2 (09:57→20:38)
--- NOTE | 2020-12-25 11:37 | MHC.CM.PN ---
Per ROUNDS discussion, Patient is not yet medically cleared for dc (IV Diamox). STR @ [facility] is the plan and CM will continue to follow for possible need to adjust the dc plan.
--- NOTE | 2020-12-25 12:52 | PM.PNNEP ---
Subjective Subjective Date of Service: 12/25/20 Interval history: Events noted. All recent data reviewed Physical Exam Vital Signs: Vital Signs: Last Vital Signs Temp 98.0 F 12/25/20 11:18 Pulse 90 12/25/20 11:18 Resp 18 12/25/20 11:18 BP 117/72 12/25/20 11:18 Pulse Ox 92 12/25/20 11:18 Oxygen Flow Rate 2 12/13/20 10:47 Body Mass Index 39.2 Const: General: no acute distress Neck: Neck: Yes supple Resp: Auscultation: diminished lung sounds Cardio: Heart sounds: no rubs GI: Palpation (GI): Soft to palpation Neuro: General: moves all extremities Objective Data Labs CBC & Chem 7: 12/25/20 06:02 12/25/20 06:02 Labs: Laboratory Results - last 24 hr 12/25/20 12/25/20 12/25/20 06:02 06:02 06:05 WBC 8.5 RBC 3.47 L Hgb 11.2 L Hct 35.5 L MCV 102.3 H MCH 32.3 MCHC 31.5 RDW 13.0 Plt Count 165 MPV 9.7 Absolute Nucleated RBC 0.000 Nucleated RBC % (auto) 0.0 VBG pH 7.41 VBG pCO2 80 VBG pO2 43 VBG HCO3 51 H VBG O2 Saturation 71.0 VBG Base Excess 21.9 Sodium 138 Potassium 3.2 L Chloride 88 L Carbon Dioxide 43 H* Anion Gap 10 L BUN 28 H Creatinine 0.75 Estim Creat Clear Calc 84.0 Estimated GFR > 60 Random Glucose 100 Calcium 9.1 Assessment & Plan Assessment and plan (1) Metabolic alkalosis: Status: Acute Assessment and Plan: serum sodium normalized Continue to hold furosemide Diamox as ordered for now BiPAP; Keep K over 4; Labs AM Time Spent With Patient Time: Total time spent is greater than 50% in coordination of care (as documented) at patient's floor/unit and/or counseling patient: Procedures Date of Service Date of Service: 12/25/20
--- NOTE | 2020-12-25 13:15 | P.PNIM_ITS ---
Subjective Subjective Date of Service: 12/25/20 Interval History: The patient was seen and evaluated this morning Laying in bed, feels tired but more alert today, use the BiPAP overnight CO2 trending down slowly Denies any fever, chills or shortness of breath No reported other overnight events. Systemic review: No fever, chills but reported general weakness No chest pain, palpitation No shortness of breath or coughing Blood work showing Better VBG No abdominal pain, nausea or vomiting No urinary symptoms No any rash or wounds Physical Exam Vital Signs: Vital Signs: Last Vital Signs Temp 98.0 F 12/25/20 11:18 Pulse 90 12/25/20 11:18 Resp 18 12/25/20 11:18 BP 117/72 12/25/20 11:18 Pulse Ox 92 12/25/20 11:18 Oxygen Flow Rate 2 12/13/20 10:47 Body Mass Index 39.2 Const: Other: Constitutional : Alert, oriented, in mild respiratory distress Neck : Normal inspection, Supple Cardiovascular : Irregular irregular, S1 S2, trace bilateral lower extremity edema Respiratory : Decreased bilateral air entry, basal fine crackles, wheezes or rhonchi Gastrointestinal: soft, lax, Normal bowel sounds, Non tender Skin : Warm/Dry, No rash Neurological : Alert & oriented x3, No focal deficit Objective Data Current Medications Generic Name Dose Route Start Last Admin Trade Name Freq PRN Reason Stop Dose Admin Acetaminophen 650 mg 12/13/20 16:49 12/25/20 06:16 Acetaminophen 325 Mg Tablet PO 650 mg Q6H PRN Administration Pain, Mild (Pain Scale 1-3) Acetazolamide 500 mg 12/22/20 14:30 12/25/20 06:10 Acetazolamide Sodium 500 Mg Vial IVPUSH 500 mg Q8H DEE Administration Amlodipine Besylate 5 mg 12/14/20 09:00 12/25/20 09:56 Amlodipine Besylate 5 Mg Tablet PO 5 mg DAILY DEE Administration Protocol Apixaban 5 mg 12/25/20 09:00 12/25/20 09:57 Apixaban 5 Mg Tablet PO 5 mg BID DEE Administration Benzonatate 100 mg 12/17/20 21:12 12/22/20 10:35 Benzonatate 100 Mg Capsule PO 100 mg TID PRN Administration Cough Flecainide Acetate 150 mg 12/13/20 21:00 12/25/20 09:55 Flecainide Acetate 50 Mg Tablet PO 150 mg BID DEE Administration Guaifenesin 600 mg 12/24/20 21:00 12/25/20 09:56 Guaifenesin La 600 Mg Tab.Er.12h PO 600 mg BID DEE Administration Heparin Sodium (Porcine) 5,000 unit 12/22/20 14:00 12/25/20 02:12 Heparin Sodium,Porcine 5,000 Unit/Ml Vial SUBCUT 5,000 unit Q12H DEE Administration Lactated Ringer's 1,000 mls @ 100 mls/hr 12/24/20 15:45 12/25/20 01:58 Lr IVCONT Not Given .Q10H DEE Lorazepam 0.5 mg 12/21/20 02:20 12/22/20 10:33 Lorazepam 0.5 Mg Tablet PO 0.5 mg Q4H PRN Administration anxiety/restlessness Magnesium Oxide 400 mg 12/13/20 17:30 12/25/20 09:56 Magnesium Oxide 400 Mg Tablet PO 400 mg BIDPC DEE Administration Metoprolol Tartrate 75 mg 12/13/20 21:00 12/25/20 09:54 Metoprolol Tartrate 50 Mg Tablet PO 75 mg BID [facility] Administration Protocol Modafinil 100 mg 12/24/20 08:30 12/25/20 09:57 Modafinil 100 Mg Tablet PO 100 mg DAILY@0800 [facility] Administration Omeprazole 20 mg 12/17/20 16:30 12/25/20 06:10 Omeprazole 20 Mg/10 Ml Susp.Recon PO 20 mg BID@0630,1630 [facility] Administration Ondansetron HCl 4 mg 12/13/20 16:49 12/19/20 09:52 Ondansetron Hcl 4 Mg/2 Ml Vial IVPUSH 4 mg Q8H PRN Administration Nausea and Vomiting Sodium Chloride 3 ml 12/14/20 00:00 12/25/20 09:52 0.9 % Sodium Chloride Flush 3 Ml Syringe IVFLUSH 3 ml QSHIFT [facility] Administration Trazodone HCl 25 mg 12/14/20 21:20 12/24/20 23:27 Trazodone Hcl 25 Mg Halftab PO 25 mg BEDTIME PRN Administration Insomnia Labs CBC & Chem 7: 12/25/20 06:02 12/25/20 06:02 Assessment and Plan (1) Dysphagia: Status: Acute (2) Metabolic alkalosis: Status: Acute (3) Heart failure with preserved ejection fraction: Status: Acute (4) Acute hyponatremia: Status: Acute (5) Acute diastolic CHF (congestive heart failure): Status: Acute (6) SIADH (syndrome of inappropriate ADH production): Status: Acute Assessment and Plan: 75-year-old female with past medical history of hypertension hyperlipidemia, anxiety, AFib on Eliquis, chronic back pain status post surgery presented hospital a chief complaint of increased weakness, multiple episodes of nausea and vomiting and feeling shortness of breath and with dyspnea on exertion. Metabolic alkalosis CO2 retention Multifactorial, the related to chronic pulmonary disease, a recent diuresis VBG showing normal pH and decrease CO2 Discussed with wringer and setter, no need for ICU transfer at this point Continue acetazolamide to 500 t.i.d. start modafinil Continue BiPAP at bedtime instead of CPAP Acute hyponatremia Related to heart failure,Treated with urea, salt tab and fluid restriction and has resolved. Nephrology following, sodium level now normal at 136 salt tablet and urea discontinued nephrology recommend to hold furosemide Dyphagia concern for stricture, recurrent throat cancer EGD was scheduled but anesthesia canceled the procedure Barium swallow study done showing area of narrowing and possible stricture GI following, EGD done yesterday with balloon dilatation an GEJ and UES Continue modified diet Aspiration precautions AFIB Continue flecainide, lopressor To resume eliquis after the upper endoscopy Nausea vomiting improved, likely related to low sodium acute diastolic chf right sided dysfunction and mild pulm htn, BNP chronically elevated, CXR showing effusion Received Lasix in the emergency room currently seems euvolemic, continue to hold Lasix follow bmp. Atelectasis Encourage incentive spirometry,no indication for antibiotics at this time Etoh dependence CIWA, no signs of withdrawal. care team consult hypertension Continue amlodipine and metoprolol Monitor blood pressure DVT PPX Heparin
[2020-12-25] MEDS: traZODone HCL 25 MG HALFTAB PO (22:56)
[2020-12-26] VITALS (11 sets, daily range): BP systolic 100–157; BP diastolic 58–79; PULSE 82–97; RESP 14–21; TEMP 36.1–36.9; O2SAT 90–95
[2020-12-26] MEDS: Heparin Sodium,Porcine 5,000 UNIT/ML VIAL 5000 UNIT SUBCUT ×2 (02:54→17:38)
[2020-12-26] MEDS: acetaZOLAMIDE sodium 500 MG VIAL IVPUSH ×3 (06:08→21:40)
[2020-12-26] MEDS: LORazepam 0.5 MG TABLET PO (06:08)
[2020-12-26 06:15] LABS: VBG Base Excess 17.7 mmol/L; VBG HCO3 46 mmol/L (22-26); VBG pCO2 73 mmHg; VBG pO2 67 mmHg
[2020-12-26 06:17] LABS: Venous Blood Gas Refer to POC result
[2020-12-26 08:32] LABS: Anion Gap 12 (12-20); Blood Urea Nitrogen 30 mg/dL (9-16); Calcium 9.1 mg/dL (8.4-10.2); Carbon Dioxide 40 mmol/L (22-29); Chloride 89 mmol/L (96-108); Creatinine Clr Calc Pharmacy 79.7; Estimated Glomerular Filt Rate > 60; Glucose Random 96 mg/dL (60-115); Potassium 3.7 mmol/L (3.3-5.1); Sodium 137 mmol/L (135-145)
[2020-12-26] MEDS: guaiFENesin LA 600 MG TAB.ER.12H PO (08:55)
[2020-12-26] MEDS: Apixaban 5 MG TABLET PO ×2 (08:55→20:41)
[2020-12-26] MEDS: Metoprolol Tartrate 50 MG TABLET 75 MG PO ×2 (08:56→20:41)
[2020-12-26] MEDS: Magnesium Oxide 400 MG TABLET PO ×2 (08:56→17:39)
[2020-12-26] MEDS: amLODIPine Besylate 5 MG TABLET PO (08:58)
[2020-12-26] MEDS: modafiniL 100 MG TABLET PO (08:58)
[2020-12-26] MEDS: Flecainide Acetate 50 MG TABLET 150 MG PO ×2 (08:59→20:41)
[2020-12-26] MEDS: Furosemide 40 MG/4 ML VIAL IVPUSH (11:46)
--- NOTE | 2020-12-26 12:23 | HO.PM.IMPN ---
Subjective Subjective Date of Service: 12/26/20 Interval History: The patient was seen and evaluated this morning Laying in bed, feels tired but more alert and interactive today, used the BiPAP overnight CO2 trending down slowly Still having difficulty swallowing Denies any fever, chills or shortness of breath No reported other overnight events. Systemic review: No fever, chills but reported general weakness No chest pain, palpitation No shortness of breath or coughing but still requiring oxygen supplement Blood work showing Better VBG No abdominal pain, nausea or vomiting No urinary symptoms No any rash or wounds Physical Exam Vital Signs: Vital Signs: Last Vital Signs Temp 96.9 F 12/26/20 11:55 Pulse 83 12/26/20 11:55 Resp 20 12/26/20 11:55 BP 100/58 L 12/26/20 11:55 Pulse Ox 90 L 12/26/20 11:55 Oxygen Flow Rate 2 12/25/20 15:10 Body Mass Index 39.2 Const: Other: Constitutional : Alert, oriented, in mild respiratory distress Neck : Normal inspection, Supple Cardiovascular : Irregular irregular, S1 S2, +2 bilateral lower extremity edema Respiratory : Decreased bilateral air entry, basal fine crackles, wheezes or rhonchi, on oxygen supplement Gastrointestinal: soft, lax, Normal bowel sounds, Non tender Skin : Warm/Dry, No rash Neurological : Alert & oriented x3, No focal deficit Objective Data Current Medications Generic Name Dose Route Start Last Admin Trade Name Freq PRN Reason Stop Dose Admin Acetaminophen 650 mg 12/13/20 16:49 12/25/20 06:16 Acetaminophen 325 Mg Tablet PO 650 mg Q6H PRN Administration Pain, Mild (Pain Scale 1-3) Acetazolamide 500 mg 12/22/20 14:30 12/26/20 06:08 Acetazolamide Sodium 500 Mg Vial IVPUSH 500 mg Q8H DEE Administration Amlodipine Besylate 5 mg 12/14/20 09:00 12/26/20 08:58 Amlodipine Besylate 5 Mg Tablet PO 5 mg DAILY DEE Administration Protocol Apixaban 5 mg 12/25/20 09:00 12/26/20 08:55 Apixaban 5 Mg Tablet PO 5 mg BID DEE Administration Benzonatate 100 mg 12/17/20 21:12 12/22/20 10:35 Benzonatate 100 Mg Capsule PO 100 mg TID PRN Administration Cough Flecainide Acetate 150 mg 12/13/20 21:00 12/26/20 08:59 Flecainide Acetate 50 Mg Tablet PO 150 mg BID [facility] Administration Guaifenesin 600 mg 12/24/20 21:00 12/26/20 08:55 Guaifenesin La 600 Mg Tab.Er.12h PO 600 mg BID DEE Administration Heparin Sodium (Porcine) 5,000 unit 12/22/20 14:00 12/26/20 02:54 Heparin Sodium,Porcine 5,000 Unit/Ml Vial SUBCUT 5,000 unit Q12H DEE Administration Lorazepam 0.5 mg 12/26/20 05:54 12/26/20 06:08 Lorazepam 0.5 Mg Tablet PO 0.5 mg Q4H PRN Administration anxiety/restlessness Magnesium Oxide 400 mg 12/13/20 17:30 12/26/20 08:56 Magnesium Oxide 400 Mg Tablet PO 400 mg BIDPC DEE Administration Metoprolol Tartrate 75 mg 12/13/20 21:00 12/26/20 08:56 Metoprolol Tartrate 50 Mg Tablet PO 75 mg BID DEE Administration Protocol Modafinil 100 mg 12/24/20 08:30 12/26/20 08:58 Modafinil 100 Mg Tablet PO 100 mg DAILY@0800 [facility] Administration Omeprazole 20 mg 12/17/20 16:30 12/26/20 06:08 Omeprazole 20 Mg/10 Ml Susp.Recon PO 20 mg BID@0630,1630 [facility] Administration Ondansetron HCl 4 mg 12/13/20 16:49 12/19/20 09:52 Ondansetron Hcl 4 Mg/2 Ml Vial IVPUSH 4 mg Q8H PRN Administration Nausea and Vomiting Sodium Chloride 3 ml 12/14/20 00:00 12/26/20 09:58 0.9 % Sodium Chloride Flush 3 Ml Syringe IVFLUSH Not Given QSHIFT [facility] Trazodone HCl 25 mg 12/14/20 21:20 12/25/20 22:56 Trazodone Hcl 25 Mg Halftab PO 25 mg BEDTIME PRN Administration Insomnia Labs CBC & Chem 7: 12/25/20 06:02 12/26/20 05:59 Assessment and Plan (1) Dysphagia: Status: Acute (2) Metabolic alkalosis: Status: Acute (3) Heart failure with preserved ejection fraction: Status: Acute (4) Acute hyponatremia: Status: Acute (5) Acute diastolic CHF (congestive heart failure): Status: Acute (6) SIADH (syndrome of inappropriate ADH production): Status: Acute Assessment and Plan: 75-year-old female with past medical history of hypertension hyperlipidemia, anxiety, AFib on Eliquis, chronic back pain status post surgery presented hospital a chief complaint of increased weakness, multiple episodes of nausea and vomiting and feeling shortness of breath and with dyspnea on exertion. Metabolic alkalosis CO2 retention Multifactorial, the related to chronic pulmonary disease, a recent diuresis VBG showing normal pH and decrease CO2 over the last few days Discussed with furnace operator oil or gas, no need for ICU transfer at this point Continue acetazolamide to 500 t.i.d. Continue modafinil Continue BiPAP at bedtime instead of CPAP Chronic hypoxic respiratory failure Requiring oxygen supplement of 2 L all the time to maintain levels in 90s Continue to wean down as tolerated with target oxygen level of 94% Acute hyponatremia Treated with urea, salt tab and fluid restriction and has resolved. sodium level now normal at 136 salt tablet and urea discontinued nephrology input appreciated Dyphagia Secondary to stricture, recurrent throat cancer Barium swallow study done showing area of narrowing and possible stricture GI following, EGD done with balloon dilatation an GEJ and UES Continue modified diet Aspiration precautions Acute diastolic chf right sided dysfunction and mild pulm htn and increased edema in lower extremities BNP chronically elevated, CXR showing effusion To give 40 IV Lasix today AFIB Continue flecainide, lopressor To resume eliquis after the upper endoscopy Nausea vomiting improved, likely related to low sodium Atelectasis Encourage incentive spirometry,no indication for antibiotics at this time Etoh dependence CIWA, no signs of withdrawal. care team consult hypertension Continue amlodipine and metoprolol Monitor blood pressure DVT PPX Heparin
--- NOTE | 2020-12-26 15:38 | P.PNNP_ITS ---
Subjective Subjective Date of Service: 12/26/20 Interval history: No acute events bicarb remains elevated (mixed picture likely chronic resp acidosis and some contraction) Physical Exam Vital Signs: Vital Signs: Last Vital Signs Temp 96.9 F 12/26/20 11:55 Pulse 83 12/26/20 11:55 Resp 20 12/26/20 11:55 BP 100/58 L 12/26/20 11:55 Pulse Ox 93 12/26/20 15:00 Oxygen Flow Rate 2 12/26/20 15:00 Body Mass Index 39.2 Const: General: cooperative, no acute distress, alert and awake; No acute dist ress HENMT: Head: Yes normocephalic and Yes atraumatic Neck: Neck: Yes supple Resp: Auscultation: clear to auscultation bilaterally and diminished lung sounds Cardio: Jugular venous distension: no JVD Palpation: no palpable S3 and no palpable S4 Rate: regular rate Heart sounds: S1 normal heart sound present, S2 normal heart sound present, no murmurs and no rubs GI: Palpation (GI): Soft to palpation and nontender Auscultation: normal bowel sounds Neuro: General: moves all extremities and no focal motor deficits Motor exam (neuro): No Asterixis during motor activity present Extrem: General: Yes edema Objective Data Labs CBC & Chem 7: 12/25/20 06:02 12/26/20 05:59 Labs: Laboratory Results - last 24 hr 12/26/20 12/26/20 05:59 06:06 VBG pH 7.40 VBG pCO2 73 VBG pO2 67 VBG HCO3 46 H VBG O2 Saturation 92.0 VBG Base Excess 17.7 Sodium 137 Potassium 3.7 Chloride 89 L Carbon Dioxide 40 H* Anion Gap 12 BUN 30 H Creatinine 0.79 Estim Creat Clear Calc 79.7 Estimated GFR > 60 Random Glucose 96 Calcium 9.1 Assessment & Plan Assessment and plan (1) Metabolic alkalosis: Status: Acute Assessment and Plan: serum sodium normalized Continue to hold furosemide Diamox as ordered for now until Bicarb reaches <40 Nightly Bipap for chronic resp acidosis monitor electrolytes Time Spent With Patient Time: Total time spent is greater than 50% in coordination of care (as documented) at patient's floor/unit and/or counseling patient: Procedures Date of Service Date of Service: 12/26/20
[2020-12-26] MEDS: 0.9 % Sodium Chloride Flush 3 ML SYRINGE IVFLUSH ×2 (17:39→23:35)
[2020-12-26] MEDS: traZODone HCL 25 MG HALFTAB PO (21:40)
[2020-12-27] VITALS (25 sets, daily range): BP systolic 80–149; BP diastolic 34–79; PULSE 63–99; RESP 18–23; TEMP 35.5–37; O2SAT 85–98
[2020-12-27] MEDS: Heparin Sodium,Porcine 5,000 UNIT/ML VIAL 5000 UNIT SUBCUT (03:09)
--- NOTE | 2020-12-27 05:06 | PC.NURSE ---
CARE ASSUMED 23:15...DOZING AT HS...DROWSY WHEN ASSESSED...PREVIOUSLY RECEIVED TRAZADONE 10PM...O2 2 L/M VIA CANNULA...PLACED ON NOCTURNAL BIPAP 18/01 AND FIO2 28%...NO DISTRESS...HISORY OF ANITA...Ve VARIES WITH RESPIRATORY CYCL BUT OVERALL Ve=6-7 L/M...CHRONIC ATRIAL FIB WITH CONTROLLED HR....AWAKE 4AM...INITIALLY CONFUSED THEN AWAKE--ALERT--ORIENTED X3...OOB TO BEDSIDE COMMODE...VOIDED SMALL AMOUNT....ATE CUSTARD/ICE CREAM AND SKIM MILK SUPERVISED...BACK TO BED..REFUSED FURTHER BIPAP..RETURNED TO O2 2 L/M...AWAKE ON CELL PHONE..DENIES/OFFERS NO COMPLAINTS
[2020-12-27] MEDS: acetaZOLAMIDE sodium 500 MG VIAL IVPUSH (06:41)
[2020-12-27 06:49] LABS: Venous Blood Gas Refer to POC result
[2020-12-27 06:50] LABS: VBG Base Excess 15.6 mmol/L; VBG HCO3 46 mmol/L (22-26); VBG pCO2 91 mmHg; VBG pH 7.31 (7.32-7.43); VBG pO2 95 mmHg
[2020-12-27 07:29] LABS: Anion Gap 10 (12-20); Blood Urea Nitrogen 34 mg/dL (9-16); Carbon Dioxide 40 mmol/L (22-29); Chloride 89 mmol/L (96-108); Creatinine Clr Calc Pharmacy 75.9; Estimated Glomerular Filt Rate > 60; Glucose Random 143 mg/dL (60-115); Potassium 3.6 mmol/L (3.3-5.1); Sodium 135 mmol/L (135-145)
[2020-12-27] MEDS: 0.9 % Sodium Chloride Flush 3 ML SYRINGE IVFLUSH ×3 (08:30→23:13)
[2020-12-27] MEDS: Apixaban 5 MG TABLET PO (08:30)
[2020-12-27] MEDS: guaiFENesin LA 600 MG TAB.ER.12H PO (08:30)
[2020-12-27] MEDS: Magnesium Oxide 400 MG TABLET PO (08:30)
[2020-12-27] MEDS: modafiniL 100 MG TABLET PO (08:30)
[2020-12-27] MEDS: Flecainide Acetate 50 MG TABLET 150 MG PO (08:31)
[2020-12-27] MEDS: Metoprolol Tartrate 50 MG TABLET 75 MG PO (08:31)
[2020-12-27] MEDS: amLODIPine Besylate 5 MG TABLET PO (08:32)
--- NOTE | 2020-12-27 10:43 | ECG_ITS ---
Test Reason : CODE Blood Pressure : / mmHG Vent. Rate : 052 BPM Atrial Rate : 085 BPM P-R Int : 000 ms QRS Dur : 192 ms QT Int : 540 ms P-R-T Axes : 000 256 -18 degrees QTc Int : 502 ms Atrial fibrillation with slow ventricular response Right bundle branch block Inferior infarct , age undetermined Abnormal ECG When compared with ECG of 13-DEC-2020 11:19, Atrial fibrillation has replaced Sinus rhythm Right bundle branch block is now Present Referred By: Demar Lopez Electronically Signed By:COLE BAR
[2020-12-27 11:02] LABS: ABG Base Excess -10.2 mmol/L; ABG HCO3 15 mmol/L (22-26); ABG pCO2 34 mmHg (32-45); ABG pCO2 TC 32 mmHg (32-45); ABG pH 7.26 (7.35-7.45); ABG pH TC 7.27 (7.35-7.45); ABG pO2 32 mmHg (83-108); ABG pO2 TC 29 (83-108)
[2020-12-27] MEDS: DOPamine HCL/D5W 400 MG/250 ML PLAST..BAG 41.33 MG IVCONT (11:15)
[2020-12-27] MEDS: Atropine Sulfate 1 MG/10 ML SYRINGE IVPUSH (11:25)
--- NOTE | 2020-12-27 11:29 | HO.PM.IMPN ---
Subjective Subjective Date of Service: 12/27/20 Interval History: The patient was seen and evaluated this morning Sitting on the commode and daughter at the bedside CO2 went up this morning Still having difficulty swallowing Denies any fever, chills or shortness of breath, feels better overall No reported other overnight events. After this meeting by almost 5 minute a blue code was called and the patient and the tele showed evidence of ventricular fibrillation. The patient was resuscitated, intubated and sent to the ICU. Review of Systems No fever, chills but reported general weakness No chest pain, palpitation No shortness of breath or coughing but still requiring oxygen supplement Blood work showing Better VBG No abdominal pain, nausea or vomiting No urinary symptoms Physical Exam Vital Signs: Vital Signs: Last Vital Signs Temp 97.6 F 12/27/20 07:51 Pulse 88 12/27/20 08:32 Resp 23 H 12/27/20 07:51 BP 101/51 L 12/27/20 08:32 Pulse Ox 96 12/27/20 07:51 Oxygen Flow Rate 2 12/26/20 15:00 Body Mass Index 39.2 Const: Other: Constitutional : Intubated Neck : Normal inspection, can not feel pulses Cardiovascular : Sinus rhythm, S1 S2, +1 bilateral lower extremity edema Respiratory : Decreased bilateral air entry, basal bilateral crackles, wheezes or rhonchi Gastrointestinal: soft, lax, Normal bowel sounds, Non tender Skin : Warm/Dry, No rash Neurological : Intubated, not sedated and looking around trying to fight the tube, No focal deficit Objective Data Current Medications Generic Name Dose Route Start Last Admin Trade Name Shubhamq PRN Reason Stop Dose Admin Acetaminophen 650 mg 12/13/20 16:49 12/25/20 06:16 Acetaminophen 325 Mg Tablet PO 650 mg Q6H PRN Administration Pain, Mild (Pain Scale 1-3) Acetazolamide 500 mg 12/22/20 14:30 12/27/20 06:41 Acetazolamide Sodium 500 Mg Vial IVPUSH 500 mg Q8H DEE Administration Amlodipine Besylate 5 mg 12/14/20 09:00 12/27/20 08:32 Amlodipine Besylate 5 Mg Tablet PO 5 mg DAILY DEE Administration Protocol Apixaban 5 mg 12/25/20 09:00 12/27/20 08:30 Apixaban 5 Mg Tablet PO 5 mg BID DEE Administration Benzonatate 100 mg 12/17/20 21:12 12/22/20 10:35 Benzonatate 100 Mg Capsule PO 100 mg TID PRN Administration Cough Flecainide Acetate 150 mg 12/13/20 21:00 12/27/20 08:31 Flecainide Acetate 50 Mg Tablet PO 150 mg BID DEE Administration Guaifenesin 600 mg 12/24/20 21:00 12/27/20 08:30 Guaifenesin La 600 Mg Tab.Er.12h PO 600 mg BID DEE Administration Heparin Sodium (Porcine) 5,000 unit 12/22/20 14:00 12/27/20 03:09 Heparin Sodium,Porcine 5,000 Unit/Ml Vial SUBCUT 5,000 unit Q12H DEE Administration Epinephrine 5 mg/ Dextrose 255 mls @ 0 mls/hr 12/27/20 11:30 IVCONT .Q0M DEE Protocol Per Protocol Dopamine HCl/Dextrose 400 mg in 250 mls @ 0 mls/hr 12/27/20 11:30 IVCONT .Q0M DEE Protocol Per Protocol Lorazepam 0.25 mg 12/26/20 13:39 Lorazepam 0.5 Mg Tablet PO RQ6H PRN anxiety/restlessness Magnesium Oxide 400 mg 12/13/20 17:30 12/27/20 08:30 Magnesium Oxide 400 Mg Tablet PO 400 mg BIDPC DEE Administration Metoprolol Tartrate 75 mg 12/13/20 21:00 12/27/20 08:31 Metoprolol Tartrate 50 Mg Tablet PO 75 mg BID DEE Administration Protocol Modafinil 100 mg 12/24/20 08:30 12/27/20 08:30 Modafinil 100 Mg Tablet PO 100 mg DAILY@0800 DEE Administration Omeprazole 20 mg 12/17/20 16:30 12/27/20 06:41 Omeprazole 20 Mg/10 Ml Susp.Recon PO 20 mg BID@0630,1630 DEE Administration Ondansetron HCl 4 mg 12/13/20 16:49 12/19/20 09:52 Ondansetron Hcl 4 Mg/2 Ml Vial IVPUSH 4 mg Q8H PRN Administration Nausea and Vomiting Sodium Chloride 3 ml 12/14/20 00:00 12/27/20 08:30 0.9 % Sodium Chloride Flush 3 Ml Syringe IVFLUSH 3 ml QSHIFT DEE Administration Trazodone HCl 25 mg 12/14/20 21:20 12/26/20 21:40 Trazodone Hcl 25 Mg Halftab PO 25 mg BEDTIME PRN Administration Insomnia Labs CBC & Chem 7: 12/25/20 06:02 12/27/20 06:34 Assessment and Plan (1) Dysphagia: Status: Acute (2) Metabolic alkalosis: Status: Acute (3) Heart failure with preserved ejection fraction: Status: Acute (4) Acute hyponatremia: Status: Acute (5) Acute diastolic CHF (congestive heart failure): Status: Acute (6) SIADH (syndrome of inappropriate ADH production): Status: Acute Assessment and Plan: 75-year-old female with past medical history of hypertension hyperlipidemia, anxiety, AFib on Eliquis, chronic back pain status post surgery presented hospital a chief complaint of increased weakness, multiple episodes of nausea and vomiting and feeling shortness of breath and with dyspnea on exertion. Ventricular fibrillation Patient become responsive, CPR initiated as she received epinephrine and amiodarone Regular sinus rhythm restarted, patient intubated Transferred to ICU Family contacted and aware Metabolic alkalosis CO2 retention Worse this morning as VBG showing pCO2 91 in comparison to 73 yesterday Multifactorial, the related to chronic pulmonary disease, a recent diuresis VBG showing normal pH and decrease CO2 over the last few days Discussed with industrial engineering manager, no need for ICU transfer at this point Continue acetazolamide to 500 t.i.d. Continue modafinil Continue BiPAP at bedtime instead of CPAP Dyphagia Secondary to stricture, recurrent throat cancer Barium swallow study done showing area of narrowing and possible stricture GI following, EGD done with balloon dilatation an GEJ and UES Continue modified diet Aspiration precautions Acute diastolic chf right sided dysfunction and mild pulm htn and increased edema in lower extremities BNP chronically elevated, CXR showing effusion Received 1 dose of 40 IV Lasix yesterday AFIB Continue flecainide, lopressor Continue eliquis Atelectasis Encourage incentive spirometry,no indication for antibiotics at this time DVT PPX Eliquis
[2020-12-27] MEDS: fentaNYL citrate/PF 100 MCG/2 ML VIAL IVPUSH ×4 (11:30→13:45)
[2020-12-27 11:33] LABS: ABG Base Excess 7.3 mmol/L; ABG HCO3 34 mmol/L (22-26); ABG pCO2 56 mmHg (32-45); ABG pCO2 TC 53 mmHg (32-45); ABG pH 7.38 (7.35-7.45); ABG pO2 74 mmHg (83-108); ABG pO2 TC 68 (83-108)
[2020-12-27] MEDS: Midazolam HCl/PF 2 MG/2 ML VIAL IVPUSH (11:35)
[2020-12-27] MEDS: Cisatracurium Besylate 20 MG/10 ML VIAL IVPUSH (11:37)
[2020-12-27] MEDS: EPINEPHrine 5 MG in Dextrose 5 % 250 ML 33.73 MG IVCONT (11:43)
[2020-12-27] MEDS: propofoL 1,000 MG/100 ML VIAL 13.23 MG IVCONT (12:00)
--- NOTE | 2020-12-27 12:12 | ECG_ITS ---
Test Reason : RHYTHM CHECK Blood Pressure : / mmHG Vent. Rate : 070 BPM Atrial Rate : 070 BPM P-R Int : 214 ms QRS Dur : 138 ms QT Int : 450 ms P-R-T Axes : -20 -38 098 degrees QTc Int : 486 ms Sinus rhythm with 1st degree A-V block Left axis deviation Non-specific intra-ventricular conduction block Abnormal QRS-T angle, consider primary T wave abnormality Abnormal ECG When compared with ECG of 27-DEC-2020 10:45, Sinus rhythm has replaced Atrial fibrillation Non-specific intra-ventricular conduction block has replaced Right bundle branch block Referred By: Demar Lopez Electronically Signed By:COLE BAR
--- NOTE | 2020-12-27 12:20 | P.CONCA_ITS ---
History of Present Illness History of Present Illness Date of Service: 12/27/20 Requesting physician: Demar Lopez Consult reason: other (Cardiac arrest) Chief complaint: Acute Hyponatremia, Chf Narrative: 75-year-old woman with prior history of paroxysmal atrial fibrillation on flecainide as outpatient started many years ago and had done well with rhythm control approach, hypertension, hyperlipidemia, COPD on chronic anticoagulation with Eliquis, prior myocardial perfusion imaging in 2015 with normal myocardial perfusion with normal structure of the heart echocardiogram, admitted 12/13/2020 with increasing shortness of breath dyspnea on exertion with minimal activity, nausea, vomiting and on admission marked hyponatremia as well as elevated BNP consistent for congestive heart failure. On admission 12 lead EKG at shows sinus rhythm. However subsequently it seems like on 12/13 at some point she converted into atrial fibrillation rapid ventricular response. This admission no cardiology consult was not sought. Her flecainide was continued. Last admission in November she had undergone cardioversion again and was continued on flecainide and Eliquis therapy along with metoprolol as the AV florian blocking agent. Patient had a very prolonged admission this time has been dealing with elevated CO2 consistent with alkalosis, secondary to both diuretic therapy with contraction alkalosis as well as chronic respiratory acidosis with elevated CO2. Few days ago she had significantly elevated CO2 on blood gas and was managed with acetazolamide to counter act metabolic alkalosis as well as BiPAP therapy at nighttime to counter act respiratory acidosis. As per the hospitalist team this morning shows doing well and she was fully conscious. She was in atrial fibrillation. She subsequently was ambulating to go to the bathroom and then while moving on she was lethargic as per the nurse and then she was got back to the bed and she subsequently continued to get bradycardic on the telemetry monitoring and subsequently had a cardiac arrest with ventricular fibrillation. She was then successfully resuscitated with image it defibrillation, with return of spontaneous circulation as well as consciousness as per the hospitalist team. Her she was subsequently intubated due to cardiac arrest and then transferred to ICU. Initially in the ICU she remained bradycardic and hypotensive. She was given epinephrine and dopamine drip at time mcg per minute and atropine. Her blood pressure improved and heart rate improved into the 60s. Initial 12 lead EKG shows atrial fibrillation with wide complex QRS. Currently on the monitor strip the QRS with appears to be normal. She was alert but then was subsequently given paralyzing agent and sedation and is currently sedated. Bedside echo was performed preliminarily. On parasternal short axis views all claudio of the left ventricular moving well, there is suggestion arm some left v entricular hypertrophy. The right ventricle appears enlarged on the parasternal long-axis views with mild hypocontractility. Subsequently also obtain some subcostal images which appear to show RV enlarged. IVC is also enlarged with blunted respiratory response but could be related to positive-pressure ventilation. She remains hypoxic requiring 80% FiO2. She had a GI procedure couple of days ago for which her Eliquis was held for about 1 and half days. She was immediately restarted with Eliquis the following day as per the hospitalist team. Prior to patient having this episode this morning she was not complaining anything to the nurse and was completely alert and oriented. She had no chest pain. Currently in atrial fibrillation controlled ventricular response. Course in the hospital since admission her hyponatremia has improved. Because of elevated BNP she has received IV Lasix which was then withheld due to increasing CO2 and suspicion of contraction alkalosis. She also has intermittent hyperkalemia which has improved. Her renal function has remained normal. 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 If so, by whom?: No Do you feel safe in your current relationship?: No Current Relationship Is there a partner from a previous relationship who is making you feel unsafe now?: No Are you made to feel afraid or neglected: No Are you DNR?: No Advance Directives: No Advance Directives Information Provided: No Do you have thoughts of harming others: None Do you have a plan to hurt others: No Plan Recently lost weight without trying: No Eating poorly because of decreased appetite: No Nutrition Risks: No Nutritional Risk service: No Current occupational status: disabled Meds Allergies Allergy/AdvReac Type Severity Reaction Status Date / Time SEASONAL ALLERGIES Allergy Unknown SNEEZING Uncoded 04/23/20 15:17 RUNNY NOSE Active Medications: Current Medications Generic Name Dose Route Start Last Admin Trade Name Freq PRN Reason Stop Dose Admin Acetaminophen 650 mg 12/13/20 16:49 12/25/20 06:16 Acetaminophen 325 Mg Tablet PO 650 mg Q6H PRN Administration Pain, Mild (Pain Scale 1-3) Acetazolamide 500 mg 12/22/20 14:30 12/27/20 06:41 Acetazolamide Sodium 500 Mg Vial IVPUSH 500 mg Q8H DEE Administration Amlodipine Besylate 5 mg 12/14/20 09:00 12/27/20 08:32 Amlodipine Besylate 5 Mg Tablet PO 5 mg DAILY DEE Administration Protocol Apixaban 5 mg 12/25/20 09:00 12/27/20 08:30 Apixaban 5 Mg Tablet PO 5 mg BID DEE Administration Benzonatate 100 mg 12/17/20 21:12 12/22/20 10:35 Benzonatate 100 Mg Capsule PO 100 mg TID PRN Administration Cough Flecainide Acetate 150 mg 12/13/20 21:00 12/27/20 08:31 Flecainide Acetate 50 Mg Tablet PO 150 mg BID DEE Administration Guaifenesin 600 mg 12/24/20 21:00 12/27/20 08:30 Guaifenesin La 600 Mg Tab.Er.12h PO 600 mg BID DEE Administration Epinephrine 5 mg/ Dextrose 255 mls @ 0 mls/hr 12/27/20 11:30 12/27/20 11:43 IVCONT 0.1 mcg/kg/min .Q0M DEE 33.73 mls/hr Administration Protocol Per Protocol Dopamine HCl/Dextrose 400 mg in 250 mls @ 0 mls/hr 12/27/20 11:30 12/27/20 11:41 IVCONT Infused .Q0M DEE Titration Protocol Per Protocol Lorazepam 0.25 mg 12/26/20 13:39 Lorazepam 0.5 Mg Tablet PO RQ6H PRN anxiety/restlessness Magnesium Oxide 400 mg 12/13/20 17:30 12/27/20 08:30 Magnesium Oxide 400 Mg Tablet PO 400 mg BIDPC [facility] Administration Metoprolol Tartrate 75 mg 12/13/20 21:00 12/27/20 08:31 Metoprolol Tartrate 50 Mg Tablet PO 75 mg BID [facility] Administration Protocol Modafinil 100 mg 12/24/20 08:30 12/27/20 08:30 Modafinil 100 Mg Tablet PO 100 mg DAILY@0800 [facility] Administration Omeprazole 20 mg 12/17/20 16:30 12/27/20 06:41 Omeprazole 20 Mg/10 Ml Susp.Recon PO 20 mg BID@0630,1630 [facility] Administration Ondansetron HCl 4 mg 12/13/20 16:49 12/19/20 09:52 Ondansetron Hcl 4 Mg/2 Ml Vial IVPUSH 4 mg Q8H PRN Administration Nausea and Vomiting Sodium Chloride 3 ml 12/14/20 00:00 12/27/20 08:30 0.9 % Sodium Chloride Flush 3 Ml Syringe IVFLUSH 3 ml QSHIFT [facility] Administration Trazodone HCl 25 mg 12/14/20 21:20 12/26/20 21:40 Trazodone Hcl 25 Mg Halftab PO 25 mg BEDTIME PRN Administration Insomnia Home Medications Medication Instructions Recorded Confirmed Last Taken Type lorazepam 1 tab PO BID PRN 11/18/20 12/13/20 Unknown History omeprazole 1 cap PO BID 11/18/20 12/13/20 Unknown History simvastatin 1 tab PO DAILY 11/18/20 12/13/20 Unknown History Physical Exam Vital Signs: Vital Signs: Last Vital Signs Temp 97.6 F 12/27/20 07:51 Pulse 68 12/27/20 11:43 Resp 18 12/27/20 11:30 BP 129/51 L 12/27/20 11:43 Pulse Ox 96 12/27/20 07:51 Oxygen Flow Rate 2 12/26/20 15:00 Body Mass Index 39.2 Const: Nutritional Appearance: obese Orientation/consciousness: Other orientation findings (Sedated on mechanical ventilation) HENMT: Head: Yes normocephalic and Yes atraumatic Neck: Neck: Yes trachea midline and Yes supple Resp: Effort & Inspection: normal respiratory effort Auscultation: d iminished lung sounds Cardio: Rhythm: abnormal rhythm irregularly irregular Heart sounds: S1 normal heart sound present and S2 normal heart sound present GI: Auscultation: normal bowel sounds Neuro: General: other (Cannot evaluate) Extrem: General: Yes no clubbing, cyanosis or edema Results Labs and Meds Result diagrams: 12/25/20 06:02 12/27/20 06:34 Lab results: Laboratory Results - last 24 hr 12/27/20 12/27/20 12/27/20 06:34 06:41 10:54 O2 Saturation 44.0 ABG pH at Pt Temp 7.26 L ABG pH (Temp Correct) 7.27 L ABG pCO2 at Pt Temp 34 ABG pCO2 (Temp Corrct 32 ABG pO2 at Pt Temp 32 L* ABG pO2 (Temp Correct 29 L* ABG HCO3 15 L ABG Base Excess (Actual) -10.2 VBG pH 7.31 L VBG pCO2 91 VBG pO2 95 VBG HCO3 46 H VBG O2 Saturation 97.0 VBG Base Excess 15.6 Sodium 135 Potassium 3.6 Chloride 89 L Carbon Dioxide 40 H* Anion Gap 10 L BUN 34 H Creatinine 0.83 Estim Creat Clear Calc 75.9 Estimated GFR > 60 Random Glucose 143 H D Calcium 9.0 12/27/20 11:26 O2 Saturation 95.0 ABG pH at Pt Temp 7.38 ABG pH (Temp Correct) 7.40 ABG pCO2 at Pt Temp 56 H ABG pCO2 (Temp Corrct 53 H ABG pO2 at Pt Temp 74 L ABG pO2 (Temp Correct 68 L ABG HCO3 34 H ABG Base Excess (Actual) 7.3 VBG pH VBG pCO2 VBG pO2 VBG HCO3 VBG O2 Saturation VBG Base Excess Sodium Potassium Chloride Carbon Dioxide Anion Gap BUN Creatinine Estim Creat Clear Calc Estimated GFR Random Glucose Calcium EKG on admission shows normal sinus Bradycardia with first-degree AV block with low-voltage QRS. EKG strips since 12/13/2020 show atrial fibrillation with sometimes rapid ventricular response. EKG rhythm strip prior to event today show progressive bradycardia and then s ubsequently reported VF. Her VF strips are not in the chart at this point in time. EKG post cardioversion shows atrial fibrillation with very wide complex QRS with right bundle-branch block. Assessment and Plan (1) Cardiac arrest: Status: Acute Patient status post cardiac arrest with initially atrial fibrillation with gradually bradycardic response subsequently having VF. EKG post resuscitation which was immediate with return of spontaneous circulation as well as consciousness very quickly. Patient was then intubated on the floor and transferred to ICU. Post intubation remained hypotensive and bradycardic. Initially received epinephrine and also was not open drip with good response. Currently on epinephrine drip at 0.1 mcg per minute. Maintaining blood pressure as well as heart rate in the 60s in atrial fibrillation. QRS complex appears narrow on the monitor. Repeat 12 lead EKG. Exact etiology for bradycardia and subsequent VF is unclear. Given wide QRS and possible proarrhythmia and patient being persistent atrial fibrillation would discontinue flecainide therapy for now. Continue supportive care with epinephrine drip and mechanical ventilation. Given that she remains persistently hypoxemic and was hypotensive with RV lead appearing enlarged on echocardiogram would suggest to rule out pulmonary embolism as a potential mechanism. LV systolic function appeared normal with no significant regional wall motion abnormality, however full echocardiogram will need to be repeated tomorrow, myocardial infarction is less likely. However at this time would pursue serial cardiac markers. Continue to maintain electrolytes, check magnesium level. Potassium appears to be normal. Sodium is normalized. Renal function normalized. Given that the IVC is plethoric would avoid significant IV hydration and maintain blood pressure with vasopressor such as epinephrine. Overall prognosis is guarded. Continue to monitor for alkalosis as well as acidosis and repeat blood gas. Rest of the management and supportive care as per the ICU team. Will continue to follow with you. Please obtain an echocardiogram tomorrow. Will follow with you. Thank you for allowing us to partake in the care. Critical care time of 1 hour was use in co managing this patient Procedures Date of Service Date of Service: 12/27/20
[2020-12-27 12:58] LABS: VBG Base Excess 9.5 mmol/L; VBG HCO3 34 mmol/L (22-26); VBG pCO2 49 mmHg; VBG pH 7.45 (7.32-7.43); VBG pO2 55 mmHg
[2020-12-27 13:18] LABS: Hematocrit 37.6 % (37-47); Hemoglobin 12.1 g/dl (12.0-16.0); Mean Corpuscular HGB Conc 32.2 g/dl (31.0-35.0); Mean Corpuscular Hemoglobin 32.4 pg (27.0-33.0); Mean Corpuscular Volume 100.8 fL (80-98); Mean Platelet Volume 10.4 fL (9.4-12.3); Platelet Count 219 X10*3/uL (160-400); Red Blood Count 3.73 X10*6/uL (4.20-5.50); Red Cell Distribution Width 13.2 % (11.0-16.0)
[2020-12-27 13:20] LABS: White Blood Count 31.1 X10*3/uL (4.8-10.8)
[2020-12-27 13:28] LABS: ABG Refer to POC result
[2020-12-27 13:28] LABS: Venous Blood Gas Refer to POC result
[2020-12-27 13:35] LABS: Lactic Acid 3.2 mmol/L (0.5-2.0)
[2020-12-27 13:41] LABS: D Dimer 2215 NG/ML
[2020-12-27 13:46] LABS: Alanine Aminotransferase 28 U/L (0-31); Albumin Level 3.8 g/dL (3.5-5.0); Alkaline Phosphatase 77 U/L (39-117); Anion Gap 17 (12-20); Aspartate Amino Transferase 33 U/L (5-31); Blood Urea Nitrogen 37 mg/dL (9-16); Calcium 8.9 mg/dL (8.4-10.2); Carbon Dioxide 34 mmol/L (22-29); Chloride 88 mmol/L (96-108); Creatinine Clr Calc Pharmacy 55.8; Estimated Glomerular Filt Rate 47; Glucose Random 237 mg/dL (60-115); Magnesium 2.1 mg/dL (1.6-2.6); Phosphorus 3.6 mg/dL (2.7-4.5); Sodium 136 mmol/L (135-145); Total Protein 6.3 g/dL (6.5-8.0)
[2020-12-27 13:47] LABS: B Type Natriuretic Peptide 916 pg/mL (<100); Troponin-I High Sensitivity 123.2 ng/L (<3.5-17.0)
--- NOTE | 2020-12-27 14:24 | P.PNNP_ITS ---
Subjective Subjective Date of Service: 12/27/20 Interval history: yesterday noted some upper airway secretions she was not handling well ongoing swalling issues today had bradycardic arrest now in MICU intubated on epinephrine. Physical Exam Vital Signs: Vital Signs: Last Vital Signs Temp 96.8 F 12/27/20 14:00 Pulse 63 12/27/20 14:00 Resp 18 12/27/20 14:00 BP 85/34 L 12/27/20 14:00 Pulse Ox 98 12/27/20 14:00 Oxygen Flow Rate 2 12/26/20 15:00 Body Mass Index 39.2 Eyes: Other: Intubated. Sedated Resp: Other: Crackled left base Cardio: Rate: regular rate Rhythm: regular rhythm Heart sounds: S1 normal heart sound present and S2 normal heart sound present GI: Inspection: Yes normal to inspection : Other: wright in place Extrem: Other: 1+ LE edema bilaterally Objective Data Labs CBC & Chem 7: 12/27/20 13:07 12/27/20 13:07 Labs: Laboratory Results - last 24 hr 12/27/20 12/27/20 12/27/20 06:34 06:41 10:54 WBC RBC Hgb Hct MCV MCH MCHC RDW Plt Count MPV Absolute Nucleated RBC Nucleated RBC % (auto) D-Dimer O2 Saturation 44.0 ABG pH at Pt Temp 7.26 L ABG pH (Temp Correct) 7.27 L ABG pCO2 at Pt Temp 34 ABG pCO2 (Temp Corrct 32 ABG pO2 at Pt Temp 32 L* ABG pO2 (Temp Correct 29 L* ABG HCO3 15 L ABG Base Excess (Actual) -10.2 VBG pH 7.31 L VBG pCO2 91 VBG pO2 95 VBG HCO3 46 H VBG O2 Saturation 97.0 VBG Base Excess 15.6 Sodium 135 Potassium 3.6 Chloride 89 L Carbon Dioxide 40 H* Anion Gap 10 L BUN 34 H Creatinine 0.83 Estim Creat Clear Calc 75.9 Estimated GFR > 60 Random Glucose 143 H D Lactic Acid Calcium 9.0 Phosphorus Magnesium Total Bilirubin AST ALT Alkaline Phosphatase Troponin I High Sens B-Natriuretic Peptide Total Protein Albumin 12/27/20 12/27/20 12/27/20 11:26 12:52 13:07 WBC RBC Hgb Hct MCV MCH MCHC RDW Plt Count MPV Absolute Nucleated RBC Nucleated RBC % (auto) D-Dimer 2215 O2 Saturation 95.0 ABG pH at Pt Temp 7.38 ABG pH (Temp Correct) 7.40 ABG pCO2 at Pt Temp 56 H ABG pCO2 (Temp Corrct 53 H ABG pO2 at Pt Temp 74 L ABG pO2 (Temp Correct 68 L ABG HCO3 34 H ABG Base Excess (Actual) 7.3 VBG pH 7.45 H VBG pCO2 49 VBG pO2 55 VBG HCO3 34 H VBG O2 Saturation 87.0 VBG Base Excess 9.5 Sodium Potassium Chloride Carbon Dioxide Anion Gap BUN Creatinine Estim Creat Clear Calc Estimated GFR Random Glucose Lactic Acid Calcium Phosphorus Magnesium Total Bilirubin AST ALT Alkaline Phosphatase Troponin I High Sens B-Natriuretic Peptide Total Protein Albumin 12/27/20 12/27/20 12/27/20 13:07 13:07 13:07 WBC RBC Hgb Hct MCV MCH MCHC RDW Plt Count MPV Absolute Nucleated RBC Nucleated RBC % (auto) D-Dimer O2 Saturation ABG pH at Pt Temp ABG pH (Temp Correct) ABG pCO2 at Pt Temp ABG pCO2 (Temp Corrct ABG pO2 at Pt Temp ABG pO2 (Temp Correct ABG HCO3 ABG Base Excess (Actual) VBG pH VBG pCO2 VBG pO2 VBG HCO3 VBG O2 Saturation VBG Base Excess Sodium 136 Potassium 3.0 L Chloride 88 L Carbon Dioxide 34 H Anion Gap 17 BUN 37 H Creatinine 1.13 Estim Creat Clear Calc 55.8 Estimated GFR 47 Random Glucose 237 H D Lactic Acid 3.2 H* Calcium 8.9 Phosphorus 3.6 Magnesium 2.1 Total Bilirubin 1.0 AST 33 H D ALT 28 Alkaline Phosphatase 77 Troponin I High Sens 123.2 H* B-Natriuretic Peptide 916 H Total Protein 6.3 L Albumin 3.8 12/27/20 13:07 WBC 31.1 H* RBC 3.73 L Hgb 12.1 Hct 37.6 MCV 100.8 H MCH 32.4 MCHC 32.2 RDW 13.2 Plt Count 219 D MPV 10.4 Absolute Nucleated RBC 0.000 Nucleated RBC % (auto) 0.0 D-Dimer O2 Saturation ABG pH at Pt Temp ABG pH (Temp Correct) ABG pCO2 at Pt Temp ABG pCO2 (Temp Corrct ABG pO2 at Pt Temp ABG pO2 (Temp Correct ABG HCO3 ABG Base Excess (Actual) VBG pH VBG pCO2 VBG pO2 VBG HCO3 VBG O2 Saturation VBG Base Excess Sodium Potassium Chloride Carbon Dioxide Anion Gap BUN Creatinine Estim Creat Clear Calc Estimated GFR Random Glucose Lactic Acid Calcium Phosphorus Magnesium Total Bilirubin AST ALT Alkaline Phosphatase Troponin I High Sens B-Natriuretic Peptide Total Protein Albumin Assessment & Plan Assessment and plan (1) Metabolic alkalosis: Status: Acute Assessment and Plan: Ms. Lucia Rubi is a 75-year-old female with past medical history of hypertension hyperlipidemia, anxiety, AFib on Eliquis, chronic back painand throat CA with dysphagia who presented with multiple episodes of nausea and vomiting. She was found to be hyponatremic on presentation, euvolemic, which resolved. Course then complicated by a metabolic alkalosis had been managed on acetazolamide. Course now complicated by Bradycardia leading to PEA arrest. Now intubuated in MICU. Plan: - with lactate rise and leukocytosis and dysphagia history, consider ASP PNA work up leading to arrest - ok for CTA chest - hold diuretics for now - appreicate MICU care. Time Spent With Patient Time: Total time spent is greater than 50% in coordination of care (as do cumented) at patient's floor/unit and/or counseling patient: Procedures Date of Service Date of Service: 12/27/20
--- NOTE | 2020-12-27 15:04 | P.PCNCC_ITS ---
Procedures Date of Service Date of Service: 12/27/20 Arterial Line Arterial Line Comments: PROCEDURE: Insertion left radial arterial line. Anesthesia: Local plus IV sedation. Indication: Shock and respiratory failure post cardiac arrest. Vascular ultrasound was used to identify both radial arteries. The left artery looked sl bigger. The left wrist was prepped and draped. Lidocaine 1% local anesthesia was applied. Under direct US guidance, the left radial artery was cannulated directly with the 22 gauge thin wall needle on the 1st pass, and the wire threaded without incident. The 22g x 5cm radial arterial cannula was ins erted over the wire without incident. The cannula was sutured x1. A dry sterile dressing was applied. There was an excellent waveform. The patient tolerated the procedure well with no complications. Consent: Emergent-no informed consent obtained
--- NOTE | 2020-12-27 15:04 | W.PM.CCHP ---
Procedures Date of Service Date of Service: 12/27/20 Central Line Placement Left SC: Central Line Comments: PROCEDURE: Emergent insertion left subclavian central venous line. INDICATION: Shock and respiratory failure post cardiac arrest: IV access; blood draws; resp monitoring. ANESTHESIA: Local plus IV sedation. PROCEDURE: Vascular ultrasound was used to examine the left side. A large compressible infraclavicular left subclavian vein was noted. The left subclavian and left neck areas were widely prepped and draped in full sterile fashion. The infraclavic subclavian vein was located by US. Local anesthesia was applied to the entrance site with the US probe oriented longitudinally. The infraclavic left subclavian vein was cannulated on the 1st pass of the 18 gauge thin wall under direct US guidance. The wire was threaded without incident. A 7 Luxembourgish by 20 cm triple-lumen catheter was advanced into the vein up to 21cm via the Seldinger technique without incident. There was good blood return x3. The catheter was sutured x3 and a Biopatch and dry sterile dressing were applied. Postop chest x-ray showed the line in good position with no pneumothorax. The patient tolerated the procedure well w no complications. Consent for Procedure: Emergent-no informed consent obtained
--- NOTE | 2020-12-27 15:05 | P.PNCC_ITS ---
Subjective Subjective Date of Service: 12/27/20 Interval History: Mrs. Ch was transferred to ICU this morning after a cardiac arrest on [facility]. The patient is a 75 yo woman with PMHx of morbid obesity, ANITA noncompliant w CPAP, hypertension, hyperlipidemia, anxiety, h/o PR, h/o PAFib on Eliquis, and h/o chronic back pain status post surgery. The patient also has a h/o head and neck carcinoma in 2007, treated at that time with chemo/RTx and has been remission since. The patient was hospitalized here on 11/17- with Afib w RVR with acute diastolic CHF and hyponatremia. Echo on 11/19 showed normal LV systolic function, w EF 60-65%. No obvious valvular pathology. RV cavity size was normal with mildly decreased right ventricular systolic function. The IVC was dilated and collapsed less than 50% with inspiration. Mild pulmonary hypertension was present. The Afib was addressed successfully via cardioversion on November 24. She was diuresed with Lasix. 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 A CT of her head and neck revealed no clear lesions. CT chest showed multiple small nodules, and a small right pleural eff. Dr. Calvillo recommended an ENT exam to look for any recurrent lesion. The patient was discharged on 11/26 on flecainide and metoprolol and Eliquis. HISTORY OF PRESENT ILLNESS: She was BIBA to the ED on December 13 [facility] of a chief complaint of increased weakness, multiple episodes of nausea and vomiting, and feeling shortness of breath and dyspnea on exertion. She noted that her legs were swollen. The patient does have sleep apnea and had not been wearing her CPAP machine at night. She was dx?d with acute hyponatremia, CHF, and fluid overload. She was admitted and started on urea, salt tablet, and fluid restriction. Her initial heart rhythm was sinus bradycardia with first-degree block. Flecainide, Lopressor, And Eliquis were continued. Her BNP was elevated. She was diuresed. At some point, she went back into Afib. With the Lasix, her bicarb started rising. She developed trouble eating and swallowing. She was seen by Dr. Whiting. She was sched for EGD but it was cancelled bec of hyperkalemia, marked metabolic alkalosis, and elevated BNP. Her base excess delfino into the 20?s, and she developed a marked hypercarbia, altho without CO2 narcosis. On 12/23, she was started on Provigil, and nighttime CPAP was changed to BiPAP. Her hypercarbia signif improved. On 12/24, she underwent EGD and was found to have gastric polyps and an esophageal stricture. She underwent biopsies and balloon dilatation at [facility], with a small tear noted. She?d been getting low dose [place] oxygen the entire hospital stay (was not on oxygen at home). This morning, a few minutes after Dr. Douglas saw her for his daily visit, the patient c/o dizziness. The telemonitor alarmed with bradycardia at about 10:12, and the nurse was immediately in the room and found the patient unconscious. CPR was started immediately. The first rhythm on the monitor after superintendent meters was thought to be Vfib. During the code, she was defib?ed three times, given a total of 3mg epi, 300 mg amiodarone and was intubated. CPR duration was 10 minutes. She was awake and responsive after the code. The patient was transferred to ICU and I arrived in the Unit shortly after her arrival. On my exam the patient was intubated, fully awake, and continuously trying to talk. HR on my arrival was in the 40?s, afib. Initial two BPs were in the 130- 140 range, then dropped to 60?s. SpO2 undetectable. We bloused her with 40 ug epi, then started her on Dopamine drip, then transitioned to epi at 0.1 ug. Her heart rate came up into the 80s, and blood pressure immediately came up into the 120-130s, and sat delfino to 100% on 80% oxygen/12 cm of PEEP. Exam showed at least 3cm JVD at 20?. Chest showed rhonchi at the right base. Normal exp phase. Heart tones very soft. She has 1-2+ pitting edema. I examined the patient at the bedside with Dr. Lechuga. We echoed her together. ECHOCARDIOGRAM: Images: Fair. Findings: 1. At least mild LVH. LV chamber size is normal. 2. LV function probably low normal. No regional wall motion abnormalities noted. I was unable to quantify the ejection fraction. 3. RV is enlarged with good function. RV:LV cavity ratio is approximately 1.1. 4. RA is large. 5. Unable to obtain any adequate color kraig Dopplers. 6. An excellent image of the IVC was obtained. Measured about 3.0 cm with no insp collapse. LABORATORY DATA: As below. Notably, the white count it bumped to 31. The D- dimer is 2215 (FWIW). First reliable blood gas showed 7.38/56/74/+7 on 80% oxygen/+12 PEEP. Sodium was 136, potassium 3.0, bicarb 34, BUN and creatinine 37/1.1 (were 34/0.8 this morning), lactic acid 3.2, Kaykay 3.6, troponin 123, with repeat 214, BNP 916, albumin 3.8. Urinalysis is unremarkable. IMAGING: Chest x-ray showed marked right lower lobe opacity in a pattern suggestive of pleural effusion. CT pulmonary angiogram showed no pulmonary emboli; the main pulmonary artery was normal in caliber. Right ventricle was enlarged with RV:LV cavity ratio 1.0. No septal bowing. The right atrium was enlarged. She has bilateral pleural effusions, right greater than left. Right-sided effusion is a least moderate. There is bilateral dependent consolidation, particularly impressive on the right side. I discussed this at length with the radiologist. He thinks the roentgenographich pattern is more consistent with atelectasis than with pneumonia (e.g. aspiration pneumonia). Also, rib fractures are noted on the left, undoubtedly due to vigorous CPR. IMPRESSION: 1. Underlying morbid obesity with ANITA, with likely baseline cor pulmonale and right heart failure on that basis. 2. Baseline atrial fibrillation. 3. History of head and neck cancer. Ongoing workup as described above. 4. Cardiac arrest of unclear etiology. Regardless, she clearly came back neurologically post arrest, very possibly completely. That raises the possibility that she never actually sustained complete cessation of spontaneous circulation. No indication for therapeutic hypothermia. 5. The current echo clearly indicates right heart failure. I suspect her current findings are unchanged from baseline. 6. The chest CT suggests either atelectasis or possible pneumonia in the right lower lobe. Given the dependent consolidation in both lower lobes, I am inclined to agree with the radiologist. However, given the bump in the white count, and the marked hypoxemia, I?ve started her on Unasyn, pending the sputum culture. 7. The chest CT is very suggestive that she might benefit from right tho racentesis. I will hold her Eliquis now for consideration of same. 8. The echo and BNP indicate that vol resusc is contraindicated. 9. Elevated troponins. EKG is not suggestive of any ischemia. In my opinion, there is no indication for therapeutic anticoagulation on that basis. However, we?ll discuss that with Dr. Lechuga and defer to his opinion. 10. The patient is not septic. Critical care time (including extended chart review and extended discussions and exam with Dr. Lechuga; excluding procedures -- see separate notes): 3+ hrs Critical Care Time (minutes): 180 Physical Exam Vital Signs: Vital Signs: Last Vital Signs Temp 96.8 F 12/27/20 14:00 Pulse 63 12/27/20 14:00 Resp 18 12/27/20 14:00 BP 85/34 L 12/27/20 14:00 Pulse Ox 98 12/27/20 14:00 Oxygen Flow Rate 2 12/26/20 15:00 Body Mass Index 39.2 Objective Data Labs CBC & Chem 7: 12/27/20 13:07 12/27/20 13:07 Labs: Laboratory Results - last 24 hr 12/27/20 12/27/20 12/27/20 06:34 06:41 10:54 WBC RBC Hgb Hct MCV MCH MCHC RDW Plt Count MPV Absolute Nucleated RBC Nucleated RBC % (auto) D-Dimer O2 Saturation 44.0 ABG pH at Pt Temp 7.26 L ABG pH (Temp Correct) 7.27 L ABG pCO2 at Pt Temp 34 ABG pCO2 (Temp Corrct 32 ABG pO2 at Pt Temp 32 L* ABG pO2 (Temp Correct 29 L* ABG HCO3 15 L ABG Base Excess (Actual) -10.2 VBG pH 7.31 L VBG pCO2 91 VBG pO2 95 VBG HCO3 46 H VBG O2 Saturation 97.0 VBG Base Excess 15.6 Sodium 135 Potassium 3.6 Chloride 89 L Carbon Dioxide 40 H* Anion Gap 10 L BUN 34 H Creatinine 0.83 Estim Creat Clear Calc 75.9 Estimated GFR > 60 Random Glucose 143 H D Lactic Acid Calcium 9.0 Phosphorus Magnesium Total Bilirubin AST ALT Alkaline Phosphatase Troponin I High Sens B-Natriuretic Peptide Total Protein Albumin 12/27/20 12/27/20 12/27/20 11:26 12:52 13:07 WBC RBC Hgb Hct MCV MCH MCHC RDW Plt Count MPV Absolute Nucleated RBC Nucleated RBC % (auto) D-Dimer 2215 O2 Saturation 95.0 ABG pH at Pt Temp 7.38 ABG pH (Temp Correct) 7.40 ABG pCO2 at Pt Temp 56 H ABG pCO2 (Temp Corrct 53 H ABG pO2 at Pt Temp 74 L ABG pO2 (Temp Correct 68 L ABG HCO3 34 H ABG Base Excess (Actual) 7.3 VBG pH 7.45 H VBG pCO2 49 VBG pO2 55 VBG HCO3 34 H VBG O2 Saturation 87.0 VBG Base Excess 9.5 Sodium Potassium Chloride Carbon Dioxide Anion Gap BUN Creatinine Estim Creat Clear Calc Estimated GFR Random Glucose Lactic Acid Calcium Phosphorus Magnesium Total Bilirubin AST ALT Alkaline Phosphatase Troponin I High Sens B-Natriuretic Peptide Total Protein Albumin 12/27/20 12/27/20 12/27/20 13:07 13:07 13:07 WBC RBC Hgb Hct MCV MCH MCHC RDW Plt Count MPV Absolute Nucleated RBC Nucleated RBC % (auto) D-Dimer O2 Saturation ABG pH at Pt Temp ABG pH (Temp Correct) ABG pCO2 at Pt Temp ABG pCO2 (Temp Corrct ABG pO2 at Pt Temp ABG pO2 (Temp Correct ABG HCO3 ABG Base Excess (Actual) VBG pH VBG pCO2 VBG pO2 VBG HCO3 VBG O2 Saturation VBG Base Excess Sodium 136 Potassium 3.0 L Chloride 88 L Carbon Dioxide 34 H Anion Gap 17 BUN 37 H Creatinine 1.13 Estim Creat Clear Calc 55.8 Estimated GFR 47 Random Glucose 237 H D Lactic Acid 3.2 H* Calcium 8.9 Phosphorus 3.6 Magnesium 2.1 Total Bilirubin 1.0 AST 33 H D ALT 28 Alkaline Phosphatase 77 Troponin I High Sens 123.2 H* B-Natriuretic Peptide 916 H Total Protein 6.3 L Albumin 3.8 12/27/20 13:07 WBC 31.1 H* RBC 3.73 L Hgb 12.1 Hct 37.6 MCV 100.8 H MCH 32.4 MCHC 32.2 RDW 13.2 Plt Count 219 D MPV 10.4 Absolute Nucleated RBC 0.000 Nucleated RBC % (auto) 0.0 D-Dimer O2 Saturation ABG pH at Pt Temp ABG pH (Temp Correct) ABG pCO2 at Pt Temp ABG pCO2 (Temp Corrct ABG pO2 at Pt Temp ABG pO2 (Temp Correct ABG HCO3 ABG Base Excess (Actual) VBG pH VBG pCO2 VBG pO2 VBG HCO3 VBG O2 Saturation VBG Base Excess Sodium Potassium Chloride Carbon Dioxide Anion Gap BUN Creatinine Estim Creat Clear Calc Estimated GFR Random Glucose Lactic Acid Calcium Phosphorus Magnesium Total Bilirubin AST ALT Alkaline Phosphatase Troponin I High Sens B-Natriuretic Peptide Total Protein Albumin Critical Care Time Critical Care Time (minutes): 180
[2020-12-27] MEDS: fentaNYL citrate/NS 1,000 MCG/100 ML PLAST..BAG 10 MCG IVCONT ×2 (15:13→19:58)
[2020-12-27 15:14] LABS: Reflex Lactate? Lactic Acid Added
[2020-12-27 15:14] LABS: ABG Base Excess 10.9 mmol/L; ABG HCO3 37 mmol/L (22-26); ABG pCO2 55 mmHg (32-45); ABG pCO2 TC 53 mmHg (32-45); ABG pH 7.43 (7.35-7.45); ABG pH TC 7.44 (7.35-7.45); ABG pO2 99 mmHg (83-108); ABG pO2 TC 93 (83-108)
[2020-12-27] MEDS: Cisatracurium Besylate 20 MG/10 ML VIAL 10 MG IVPUSH ×2 (15:18→16:00)
[2020-12-27] MEDS: iohexoL 350 MG/ML 100 ML INFUS..BTL IV (16:33)
[2020-12-27] MEDS: Ampicillin Sodium/Sulbactam Na 3 GM in 0.9 % Sodium Chloride 100 ML IV ×2 (17:20→23:13)
[2020-12-27] MEDS: propofoL 1,000 MG/100 ML VIAL 19.84 MG IVCONT ×2 (17:47→20:59)
[2020-12-27 17:56] LABS: Troponin-I High Sensitivity 214.8 ng/L (<3.5-17.0)
[2020-12-27 18:11] LABS: Glucose Urine UA NEG (NEG); Leukocyte Esterase Urine NEG (NEG); Nitrite Urine NEG (NEG); Urine Blood TRACE (NEG); Urine Ketones NEG (NEG); Urine Protein 3+ MG/DL (NEG-TRACE)
[2020-12-27 18:14] LABS: Appearance Urine HAZY; Color Urine YELLOW
[2020-12-27 18:22] LABS: Bacteria Urine 1+ /LPF; RBC Urine 0-2 /HPF (0); Squamous Epithelial Cell Urine TRACE /LPF
--- NOTE | 2020-12-27 18:22 | PC.NURSE ---
Around 09:30 this RN and MD at patient's bedside for morning rounds and assessment. MD aware of patients ongoing weakness with plan to go to [facility] at time of discharge. 0945 this RN attempted to ambulate patient with walker but patient unable to tolerate activity stating she too weak . This RN observed patients increased weakness and inability to ambulate, able to safely sit patient on the edge of the bed. Patient repositioned in with call rashid in reach, bed alarm on and telesitter camera at bedside for high fall risk precautions. This RN found patient to be increasingly lethargic and unable to stay awake. This RN attempted to reach to report findings via telephone when a STAT overhead page for nursing to report to patient's room was announced. This RN right outside of patients doorway and responded immediately. Patient fund to be unresponsive to verbal command or tactile stimulus, this RN unable to feel carotid pulse. CODE BLUE call and this RN initiated CPR. CODE BLUE team and MD at bedside. See CODE BLUE documentation. Patient intubated and ROSC achieved. Patient transferred to ICU. This RN remained primary RN. Dr. Lopez at bedside. Cardiology consult placed, at bedside. Epinephrine drip ordered. Patient opening eyes and able to follow simple commands and nod yes to a simple question. Patient became restless and appeared to have discomfort from ET tube. Placed on Fentanyl, and Propofol drip. TLC, arterial line, and wright placed. Patient transported for chest CT, tolerated well. and updated patient's primary contact and daughter Lorraine Ch of patients status. Patient's son at bedside for visit for about 10 min.
[2020-12-27 18:23] LABS: Granular Casts Urine 0-2 /LPF
[2020-12-27 19:30] LABS: Glucose, Whole Blood 216 mg/dL (60-115)
[2020-12-27] MEDS: EPINEPHrine 5 MG in Dextrose 5 % 250 ML 23.61 MG IVCONT (20:02)
[2020-12-27 20:20] LABS: Anion Gap 16 (12-20); Blood Urea Nitrogen 40 mg/dL (9-16); Calcium 8.4 mg/dL (8.4-10.2); Carbon Dioxide 31 mmol/L (22-29); Chloride 89 mmol/L (96-108); Creatinine Clr Calc Pharmacy 45.3; Estimated Glomerular Filt Rate 37; Glucose Random 234 mg/dL (60-115); Potassium 2.9 mmol/L (3.3-5.1); Sodium 133 mmol/L (135-145)
[2020-12-27 20:24] LABS: Troponin-I High Sensitivity 208.8 ng/L (<3.5-17.0)
[2020-12-27] MEDS: Chlorhexidine Gluc Oral Rinse 15 ML MOUTHWASH BUCCAL (21:00)
[2020-12-27] MEDS: Insulin Lispro 100 UNIT/ML 3 ML VIAL SUBCUT (21:00)
[2020-12-27 22:37] LABS: ABG Refer to POC result
[2020-12-28] VITALS (36 sets, daily range): BP systolic 94–150; BP diastolic 39–65; PULSE 69–92; RESP 10–28; TEMP 36.6–38.1; O2SAT 90–99
[2020-12-28 01:39] LABS: Blood Urea Nitrogen 40 mg/dL (9-16); Calcium 8.6 mg/dL (8.4-10.2); Creatinine Clr Calc Pharmacy 45.3; Estimated Glomerular Filt Rate 37; Glucose Random 210 mg/dL (60-115)
[2020-12-28 02:14] LABS: Anion Gap 17 (12-20); Carbon Dioxide 31 mmol/L (22-29); Chloride 89 mmol/L (96-108); Potassium 2.7 mmol/L (3.3-5.1); Sodium 134 mmol/L (135-145)
[2020-12-28] MEDS: propofoL 1,000 MG/100 ML VIAL 19.84 MG IVCONT (02:23)
[2020-12-28] MEDS: Potassium Chloride/H20 20 MEQ/100 ML PIGGYBACK 100 MEQ IV (03:04)
[2020-12-28] MEDS: fentaNYL citrate/NS 1,000 MCG/100 ML PLAST..BAG 20 MCG IVCONT ×2 (04:10→08:35)
[2020-12-28] MEDS: Ampicillin Sodium/Sulbactam Na 3 GM in 0.9 % Sodium Chloride 100 ML IV ×4 (04:12→23:13)
[2020-12-28 05:31] LABS: ABG Base Excess 13.6 mmol/L; ABG HCO3 35 mmol/L (22-26); ABG pCO2 34 mmHg (32-45); ABG pCO2 TC 34 mmHg (32-45); ABG pH 7.62 (7.35-7.45); ABG pH TC 7.62 (7.35-7.45); ABG pO2 162 mmHg (83-108); ABG pO2 TC 163 (83-108)
[2020-12-28 05:33] LABS: Basophils Percent Auto 0.1 % (0-2); Hematocrit 30.8 % (37-47); Hemoglobin 10.6 g/dl (12.0-16.0); Imm Gran Abs Auto 0.08 X10*3/uL (0.00-0.03); Imm Gran Pct Auto 0.4 % (0.0-0.4); Lymphocytes Absolute Auto 0.5 X10*3/uL (1.2-4.9); Lymphocytes Percent Auto 2.5 % (20-40); MANUAL DIFF FLAG SCAN; Mean Corpuscular HGB Conc 34.4 g/dl (31.0-35.0); Mean Corpuscular Hemoglobin 32.7 pg (27.0-33.0); Mean Corpuscular Volume 95.1 fL (80-98); Mean Platelet Volume 9.8 fL (9.4-12.3); Monocytes Absolute Auto 1.6 X10*3/uL (0.1-1.2); Monocytes Percent Auto 8.8 % (2-11); Neutrophils Percent Auto 88.2 % (45-73); Platelet Count 173 X10*3/uL (160-400); Red Blood Count 3.24 X10*6/uL (4.20-5.50); Red Cell Distribution Width 13.3 % (11.0-16.0); SCAN SMEAR FLAG 1; White Blood Count 18.2 X10*3/uL (4.8-10.8)
[2020-12-28] MEDS: propofoL 1,000 MG/100 ML VIAL 23.15 MG IVCONT (05:44)
[2020-12-28] MEDS: Heparin Sodium,Porcine 5,000 UNIT/ML VIAL 5000 UNIT SUBCUT (05:45)
[2020-12-28 05:54] LABS: SLIDE REVIEW VERIFIED
[2020-12-28 06:02] LABS: Troponin-I High Sensitivity 133.6 ng/L (<3.5-17.0)
[2020-12-28 06:12] LABS: Alanine Aminotransferase 22 U/L (0-31); Albumin Level 3.1 g/dL (3.5-5.0); Alkaline Phosphatase 64 U/L (39-117); Anion Gap 15 (12-20); Aspartate Amino Transferase 26 U/L (5-31); Bilirubin Total 1.1 mg/dL (0.0-1.0); Blood Urea Nitrogen 39 mg/dL (9-16); Calcium 8.5 mg/dL (8.4-10.2); Carbon Dioxide 32 mmol/L (22-29); Chloride 90 mmol/L (96-108); Creatinine Clr Calc Pharmacy 45.3; Estimated Glomerular Filt Rate 37; Glucose Random 176 mg/dL (60-115); Phosphorus 2.1 mg/dL (2.7-4.5); Potassium 2.6 mmol/L (3.3-5.1); Sodium 134 mmol/L (135-145); Total Protein 5.3 g/dL (6.5-8.0)
[2020-12-28] MEDS: EPINEPHrine 5 MG in Dextrose 5 % 250 ML 23.61 MG IVCONT (06:41)
[2020-12-28 07:22] LABS: Glucose, Whole Blood 165 mg/dL (60-115)
[2020-12-28 07:27] LABS: Reflex Lactate? Lactic Acid Added
[2020-12-28] MEDS: KCl 40 mEq in 0.9 % Sodium Chl 40 MEQ/1,000 ML IV.SOLN 80 MEQ IVCONT ×2 (08:00→20:37)
[2020-12-28 08:24] LABS: Lactic Acid 3.4 mmol/L (0.5-2.0)
[2020-12-28] MEDS: Potassium Chloride Packet 20 MEQ PACKET 40 MEQ PO ×2 (08:33→10:25)
[2020-12-28 08:34] LABS: ~Lactic Acid-LAB USE ONLY 2.7 mmol/L (0.5-2.0)
[2020-12-28] MEDS: Insulin Lispro 100 UNIT/ML 3 ML VIAL SUBCUT (08:34)
[2020-12-28] MEDS: Chlorhexidine Gluc Oral Rinse 15 ML MOUTHWASH BUCCAL ×3 (08:50→20:40)
[2020-12-28] MEDS: propofoL 1,000 MG/100 ML VIAL 29.76 MG IVCONT (09:17)
[2020-12-28] MEDS: 0.9 % Sodium Chloride Flush 3 ML SYRINGE IVFLUSH ×3 (09:17→23:13)
[2020-12-28] MEDS: Midazolam HCl/PF 2 MG/2 ML VIAL 5 MG IVPUSH (10:02)
[2020-12-28 10:06] LABS: Reflex Lactate? 2 Y
--- NOTE | 2020-12-28 10:18 | W.PM.CCHP ---
Procedures Date of Service Date of Service: 12/28/20 Bronchoscopy Bronchoscopy Comments: Reviewed her CT scan angiogram and found significant right lower lobe atelectasis with moderate right-sided pleural effusion and small left pleural effusion and did not see a patent bronchus intermedius and this was the indication for bronchoscopy rule out mechanical obstruction obtain sputum samples Consent for Procedure: Elective - informed consent obtained Indication: atelectasis Procedure: Patient on fentanyl and propofol and was given stat dose of 5 mg IV Versed placed on 100% FiO2 and volume control and through the endotracheal tube brought bronchoscope was passed and inspected the left mainstem bronchus and its subdivisions and they were clear with no sputum no blood and then concentrated on the right side and there was nothing obstructing the bronchus intermedius on the right side and either of its 2 subdivisions but the sterile saline lavage was performed at least twice there was very very mild pink tinged foamy sputum for coming from the right mainstem and that was lavaged and suctioned and sample was obtained although it did not appear at all purulence and all airways were patent Route: endotracheal tube Sedation/Analgesia: fentanyl and midazolam Monitor: EKG and pulse oximetry Findings: As above Complications: none
[2020-12-28 10:52] LABS: ~Lactic Acid-LAB USE ONLY 1.9 mmol/L (0.5-2.0)
--- NOTE | 2020-12-28 10:56 | PM.PNCARD ---
Subjective Subjective Date of Service: 12/28/20 Interval history: Events noted from yesterday. Still intubated. Review of Systems Review of Systems Yes unobtainable due to endotracheal tube, Unobtainable due to mental condition and Unobtainable due to mental status Physical Exam Vital Signs: Last Vital Signs Temp 99.9 F 12/28/20 10:51 Pulse 80 12/28/20 10:51 Resp 18 12/28/20 10:51 BP 120/52 L 12/28/20 10:51 Pulse Ox 95 12/28/20 10:51 Oxygen Flow Rate 2 12/26/20 15:00 Body Mass Index 39.2 Const General: no acute distress HENMT Other: Unremarkable Neck Neck: Yes normal visual inspection Chest Chest palpation & inspection: normal inspection of the chest Resp Auscultation: clear to auscultation bilaterally, no crackles and no wheezes Cardio Jugular venous distension: no JVD Palpation: normal PMI Heart sounds: S1 normal heart sound present, S2 normal heart sound present, no gallops, no murmurs and no rubs GI Palpation (GI): Soft to palpation Back/Spine/Pelvis Other: unremarkable Skin General skin exam: no rashes or lesions noted Extrem General: Yes no clubbing, cyanosis or edema Psych Other: intubated and cannot assess Results Labs and Meds Result diagrams: 12/28/20 05:25 12/28/20 05:25 Lab results: Laboratory Results - last 24 hr 12/27/20 12/27/20 12/27/20 10:54 11:26 12:52 WBC RBC Hgb Hct MCV MCH MCHC RDW Plt Count MPV Immature Gran % (Auto) Neut % (Auto) Lymph % (Auto) [place] % (Auto) Eos % (Auto) Baso % (Auto) Lymph # (Auto) [place] # (Auto) Eos # (Auto) Baso # (Auto) Abs Immat Gran (auto) Absolute Neuts (auto) Absolute Nucleated RBC Nucleated RBC % (auto) Smear Tech's Comments D-Dimer O2 Saturation 44.0 95.0 ABG pH at Pt Temp 7.26 L 7.38 ABG pH (Temp Correct) 7.27 L 7.40 ABG pCO2 at Pt Temp 34 56 H ABG pCO2 (Temp Corrct 32 53 H ABG pO2 at Pt Temp 32 L* 74 L ABG pO2 (Temp Correct 29 L* 68 L ABG HCO3 15 L 34 H ABG Base Excess (Actual) -10.2 7.3 VBG pH 7.45 H VBG pCO2 49 VBG pO2 55 VBG HCO3 34 H VBG O2 Saturation 87.0 VBG Base Excess 9.5 Sodium Potassium Chloride Carbon Dioxide Anion Gap BUN Creatinine Estim Creat Clear Calc Estimated GFR POC Glucose Random Glucose Lactic Acid Lactic Acid Fup @ 2Hr Lactic Acid Fup @ 4Hr Calcium Phosphorus Magnesium Total Bilirubin AST ALT Alkaline Phosphatase Troponin I High Sens B-Natriuretic Peptide Total Protein Albumin Urine Color Urine Appearance Urine pH Ur Specific [place] Urine Protein Urine Glucose (UA) Urine Ketones Urine Blood Urine Nitrite Ur Leukocyte Esterase Urine RBC Urine WBC Ur Squamous Epith Cells Urine Bacteria Hyaline Casts Granular Casts Urine Mucus 12/27/20 12/27/20 12/27/20 13:07 13:07 13:07 WBC RBC Hgb Hct MCV MCH MCHC RDW Plt Count MPV Immature Gran % (Auto) Neut % (Auto) Lymph % (Auto) [place] % (Auto) Eos % (Auto) Baso % (Auto) Lymph # (Auto) [place] # (Auto) Eos # (Auto) Baso # (Auto) Abs Immat Gran (auto) Absolute Neuts (auto) Absolute Nucleated RBC Nucleated RBC % (auto) Smear Tech's Comments D-Dimer 2215 O2 Saturation ABG pH at Pt Temp ABG pH (Temp Correct) ABG pCO2 at Pt Temp ABG pCO2 (Temp Corrct ABG pO2 at Pt Temp ABG pO2 (Temp Correct ABG HCO3 ABG Base Excess (Actual) VBG pH VBG pCO2 VBG pO2 VBG HCO3 VBG O2 Saturation VBG Base Excess Sodium 136 Potassium 3.0 L Chloride 88 L Carbon Dioxide 34 H Anion Gap 17 BUN 37 H Creatinine 1.13 Estim Creat Clear Calc 55.8 Estimated GFR 47 POC Glucose Random Glucose 237 H D Lactic Acid 3.2 H* Lactic Acid Fup @ 2Hr Lactic Acid Fup @ 4Hr Calcium 8.9 Phosphorus 3.6 Magnesium 2.1 Total Bilirubin 1.0 AST 33 H D ALT 28 Alkaline Phosphatase 77 Troponin I High Sens B-Natriuretic Peptide Total Protein 6.3 L Albumin 3.8 Urine Color Urine Appearance Urine pH Ur Specific [place] Urine Protein Urine Glucose (UA) Urine Ketones Urine Blood Urine Nitrite Ur Leukocyte Esterase Urine RBC Urine WBC Ur Squamous Epith Cells Urine Bacteria Hyaline Casts Granular Casts Urine Mucus 12/27/20 12/27/20 12/27/20 13:07 13:07 15:08 WBC 31.1 H* RBC 3.73 L Hgb 12.1 Hct 37.6 MCV 100.8 H MCH 32.4 MCHC 32.2 RDW 13.2 Plt Count 219 D MPV 10.4 Immature Gran % (Auto) Neut % (Auto) Lymph % (Auto) [place] % (Auto) Eos % (Auto) Baso % (Auto) Lymph # (Auto) [place] # (Auto) Eos # (Auto) Baso # (Auto) Abs Immat Gran (auto) Absolute Neuts (auto) Absolute Nucleated RBC 0.000 Nucleated RBC % (auto) 0.0 Smear Tech's Comments D-Dimer O2 Saturation 98.0 ABG pH at Pt Temp 7.43 ABG pH (Temp Correct) 7.44 ABG pCO2 at Pt Temp 55 H ABG pCO2 (Temp Corrct 53 H ABG pO2 at Pt Temp 99 ABG pO2 (Temp Correct 93 ABG HCO3 37 H ABG Base Excess (Actual) 10.9 VBG pH VBG pCO2 VBG pO2 VBG HCO3 VBG O2 Saturation VBG Base Excess Sodium Potassium Chloride Carbon Dioxide Anion Gap BUN Creatinine Estim Creat Clear Calc Estimated GFR POC Glucose Random Glucose Lactic Acid Lactic Acid Fup @ 2Hr Lactic Acid Fup @ 4Hr Calcium Phosphorus Magnesium Total Bilirubin AST ALT Alkaline Phosphatase Troponin I High Sens 123.2 H* B-Natriuretic Peptide 916 H Total Protein Albumin Urine Color Urine Appearance Urine pH Ur Specific [place] Urine Protein Urine Glucose (UA) Urine Ketones Urine Blood Urine Nitrite Ur Leukocyte Esterase Urine RBC Urine WBC Ur Squamous Epith Cells Urine Bacteria Hyaline Casts Granular Casts Urine Mucus 12/27/20 12/27/20 12/27/20 17:05 17:56 19:26 WBC RBC Hgb Hct MCV MCH MCHC RDW Plt Count MPV Immature Gran % (Auto) Neut % (Auto) Lymph % (Auto) [place] % (Auto) Eos % (Auto) Baso % (Auto) Lymph # (Auto) [place] # (Auto) Eos # (Auto) Baso # (Auto) Abs Immat Gran (auto) Absolute Neuts (auto) Absolute Nucleated RBC Nucleated RBC % (auto) Smear Tech's Comments D-Dimer O2 Saturation ABG pH at Pt Temp ABG pH (Temp Correct) ABG pCO2 at Pt Temp ABG pCO2 (Temp Corrct ABG pO2 at Pt Temp ABG pO2 (Temp Correct ABG HCO3 ABG Base Excess (Actual) VBG pH VBG pCO2 VBG pO2 VBG HCO3 VBG O2 Saturation VBG Base Excess Sodium Potassium Chloride Carbon Dioxide Anion Gap BUN Creatinine Estim Creat Clear Calc Estimated GFR POC Glucose 216 H Random Glucose Lactic Acid Lactic Acid Fup @ 2Hr Lactic Acid Fup @ 4Hr Calcium Phosphorus Magnesium Total Bilirubin AST ALT Alkaline Phosphatase Troponin I High Sens 214.8 H* D B-Natriuretic Peptide Total Protein Albumin Urine Color YELLOW Urine Appearance HAZY Urine pH 7.0 Ur Specific [place] 1.010 Urine Protein 3+ H Urine Glucose (UA) NEG Urine Ketones NEG Urine Blood TRACE Urine Nitrite NEG Ur Leukocyte Esterase NEG Urine RBC 0-2 Urine WBC 5-9 H Ur Squamous Epith Cells TRACE Urine Bacteria 1+ Hyaline Casts 5-9 Granular Casts 0-2 Urine Mucus NONE 12/27/20 12/27/20 12/28/20 19:43 19:43 00:55 WBC RBC Hgb Hct MCV MCH MCHC RDW Plt Count MPV Immature Gran % (Auto) Neut % (Auto) Lymph % (Auto) [place] % (Auto) Eos % (Auto) Baso % (Auto) Lymph # (Auto) [place] # (Auto) Eos # (Auto) Baso # (Auto) Abs Immat Gran (auto) Absolute Neuts (auto) Absolute Nucleated RBC Nucleated RBC % (auto) Smear Tech's Comments D-Dimer O2 Saturation ABG pH at Pt Temp ABG pH (Temp Correct) ABG pCO2 at Pt Temp ABG pCO2 (Temp Corrct ABG pO2 at Pt Temp ABG pO2 (Temp Correct ABG HCO3 ABG Base Excess (Actual) VBG pH VBG pCO2 VBG pO2 VBG HCO3 VBG O2 Saturation VBG Base Excess Sodium 133 L 134 L Potassium 2.9 L 2.7 L Chloride 89 L 89 L Carbon Dioxide 31 H 31 H Anion Gap 16 17 BUN 40 H 40 H Creatinine 1.39 1.39 Estim Creat Clear Calc 45.3 45.3 Estimated GFR 37 37 POC Glucose Random Glucose 234 H 210 H Lactic Acid Lactic Acid Fup @ 2Hr Lactic Acid Fup @ 4Hr Calcium 8.4 8.6 Phosphorus Magnesium Total Bilirubin AST ALT Alkaline Phosphatase Troponin I High Sens 208.8 H* B-Natriuretic Peptide Total Protein Albumin Urine Color Urine Appearance Urine pH Ur Specific [place] Urine Protein Urine Glucose (UA) Urine Ketones Urine Blood Urine Nitrite Ur Leukocyte Esterase Urine RBC Urine WBC Ur Squamous Epith Cells Urine Bacteria Hyaline Casts Granular Casts Urine Mucus 12/28/20 12/28/20 12/28/20 05:25 05:25 05:25 WBC 18.2 H RBC 3.24 L Hgb 10.6 L Hct 30.8 L MCV 95.1 D MCH 32.7 MCHC 34.4 RDW 13.3 Plt Count 173 MPV 9.8 Immature Gran % (Auto) 0.4 Neut % (Auto) 88.2 H Lymph % (Auto) 2.5 L [place] % (Auto) 8.8 Eos % (Auto) 0.0 Baso % (Auto) 0.1 Lymph # (Auto) 0.5 L [place] # (Auto) 1.6 H Eos # (Auto) 0.0 Baso # (Auto) 0.0 Abs Immat Gran (auto) 0.08 H Absolute Neuts (auto) 16.0 H Absolute Nucleated RBC 0.000 Nucleated RBC % (auto) 0.0 Smear Tech's Comments VERIFIED D-Dimer O2 Saturation ABG pH at Pt Temp ABG pH (Temp Correct) ABG pCO2 at Pt Temp ABG pCO2 (Temp Corrct ABG pO2 at Pt Temp ABG pO2 (Temp Correct ABG HCO3 ABG Base Excess (Actual) VBG pH VBG pCO2 VBG pO2 VBG HCO3 VBG O2 Saturation VBG Base Excess Sodium 134 L Potassium 2.6 L Chloride 90 L Carbon Dioxide 32 H Anion Gap 15 BUN 39 H Creatinine 1.39 Estim Creat Clear Calc 45.3 Estimated GFR 37 POC Glucose Random Glucose 176 H Lactic Acid Lactic Acid Fup @ 2Hr Lactic Acid Fup @ 4Hr Calcium 8.5 Phosphorus 2.1 L Magnesium Total Bilirubin 1.1 H AST 26 ALT 22 Alkaline Phosphatase 64 Troponin I High Sens 133.6 H* B-Natriuretic Peptide Total Protein 5.3 L Albumin 3.1 L Urine Color Urine Appearance Urine pH Ur Specific [place] Urine Protein Urine Glucose (UA) Urine Ketones Urine Blood Urine Nitrite Ur Leukocyte Esterase Urine RBC Urine WBC Ur Squamous Epith Cells Urine Bacteria Hyaline Casts Granular Casts Urine Mucus 12/28/20 12/28/20 12/28/20 05:25 05:25 07:18 WBC RBC Hgb Hct MCV MCH MCHC RDW Plt Count MPV Immature Gran % (Auto) Neut % (Auto) Lymph % (Auto) [place] % (Auto) Eos % (Auto) Baso % (Auto) Lymph # (Auto) [place] # (Auto) Eos # (Auto) Baso # (Auto) Abs Immat Gran (auto) Absolute Neuts (auto) Absolute Nucleated RBC Nucleated RBC % (auto) Smear Tech's Comments D-Dimer O2 Saturation 99.0 ABG pH at Pt Temp 7.62 H* ABG pH (Temp Correct) 7.62 H* ABG pCO2 at Pt Temp 34 ABG pCO2 (Temp Corrct 34 ABG pO2 at Pt Temp 162 H ABG pO2 (Temp Correct 163 H ABG HCO3 35 H ABG Base Excess (Actual) 13.6 VBG pH VBG pCO2 VBG pO2 VBG HCO3 VBG O2 Saturation VBG Base Excess Sodium Potassium Chloride Carbon Dioxide Anion Gap BUN Creatinine Estim Creat Clear Calc Estimated GFR POC Glucose 165 H Random Glucose Lactic Acid 3.4 H* Lactic Acid Fup @ 2Hr Lactic Acid Fup @ 4Hr Calcium Phosphorus Magnesium Total Bilirubin AST ALT Alkaline Phosphatase Troponin I High Sens B-Natriuretic Peptide Total Protein Albumin Urine Color Urine Appearance Urine pH Ur Specific [place] Urine Protein Urine Glucose (UA) Urine Ketones Urine Blood Urine Nitrite Ur Leukocyte Esterase Urine RBC Urine WBC Ur Squamous Epith Cells Urine Bacteria Hyaline Casts Granular Casts Urine Mucus 12/28/20 12/28/20 08:02 10:29 WBC RBC Hgb Hct MCV MCH MCHC RDW Plt Count MPV Immature Gran % (Auto) Neut % (Auto) Lymph % (Auto) [place] % (Auto) Eos % (Auto) Baso % (Auto) Lymph # (Auto) [place] # (Auto) Eos # (Auto) Baso # (Auto) Abs Immat Gran (auto) Absolute Neuts (auto) Absolute Nucleated RBC Nucleated RBC % (auto) Smear Tech's Comments D-Dimer O2 Saturation ABG pH at Pt Temp ABG pH (Temp Correct) ABG pCO2 at Pt Temp ABG pCO2 (Temp Corrct ABG pO2 at Pt Temp ABG pO2 (Temp Correct ABG HCO3 ABG Base Excess (Actual) VBG pH VBG pCO2 VBG pO2 VBG HCO3 VBG O2 Saturation VBG Base Excess Sodium Potassium Chloride Carbon Dioxide Anion Gap BUN Creatinine Estim Creat Clear Calc Estimated GFR POC Glucose Random Glucose Lactic Acid Lactic Acid Fup @ 2Hr 2.7 H* Lactic Acid Fup @ 4Hr 1.9 Calcium Phosphorus Magnesium Total Bilirubin AST ALT Alkaline Phosphatase Troponin I High Sens B-Natriuretic Peptide Total Protein Albumin Urine Color Urine Appearance Urine pH Ur Specific [place] Urine Protein Urine Glucose (UA) Urine Ketones Urine Blood Urine Nitrite Ur Leukocyte Esterase Urine RBC Urine WBC Ur Squamous Epith Cells Urine Bacteria Hyaline Casts Granular Casts Urine Mucus Imaging Radiologist's impression: Impressions Chest X-Ray 12/27/20 12:27 IMPRESSION: Support tubes and catheters in place as described. No pneumothorax. Enlarging right pleural effusion and probable underlying airspace disease. Chest CTA 12/27/20 16:28 IMPRESSION: 1. CT pulmonary angiogram negative for pulmonary emboli. 2. Moderate right pleural effusion and small left pleural effusion. Findings are associated with complete atelectasis of the right inferior lobe, near-complete atelectasis of the left inferior pulmonary lobe and partial atelectasis and consolidation of the right middle pulmonary lobe. Additionally, mild scattered nonspecific groundglass opacities are present in the upper lung zones. In the correct clinical setting, the upper lung zone groundglass opacities could represent viral pneumonitis. 3. Fractures of the anterior segments of the left third through seventh ribs. 4. Soft tissue inflammatory changes along the lateral and posterolateral aspect of the inferior right thoracic wall. 5. Partial visualization of a mild-moderate quantity of low density free intraperitoneal perihepatic fluid which could represent ascites. 6. Endotracheal tube terminating 1 cm superior to the yunier. 7. Enteric tube terminating within the stomach. Left upper cavity PICC terminating within the superior vena cava. 8. Partial visualization of scattered subcentimeter calcified and noncalcified pulmonary nodules. These nodules are visualized to better advantage on the comparison CT of the thorax from 11/19/2020. This examination recommend a follow-up noncontrast CT of the thorax in 3 months to assess for change. (History of carcinoma.) VTE: negative Progress Note: A&P Assessment and plan (1) Cardiac arrest: Status: Acute (2) Heart failure with preserved ejection fraction: Status: Acute (3) PAF (paroxysmal atrial fibrillation): Status: Acute Assessment and Plan: Events noted as well as the strips. It appears that she was in atrial fibrillation with slow rate which eventually led to ventricular fibrillation and she was then resuscitated. Currently in ICU and on mechanical ventilation. Plan is to wean her off the ventilator. She needs to come off flecainide completely. Current rhythm is sinus. We can consider starting Amiodarone completely. If she again gets bradycardic, then need to discuss about pacemaker placement. Otherwise, echocardiogram today. Her potassium is low and not clear if that plays any role. Will need to optimize electrolytes. High sensitivity troponins are elevated but that is most likely from the acute arrest situation. At some point, will consider cardiac catheterization for ischemia evaluation. Will follow up with you. Fall Risk Details Current Medications: Current Medications Generic Name Dose Route Start Last Admin Trade Name Freq PRN Reason Stop Dose Admin Chlorhexidine Gluconate 15 ml 12/27/20 21:00 12/28/20 08:50 Chlorhexidine Gluc Oral Rinse 15 Ml Mouthwash BUCCAL 15 ml TID DEE Administration Cisatracurium Besylate 10 mg 12/27/20 15:18 12/27/20 16:00 Cisatracurium Besylate 20 Mg/10 Ml Vial IVPUSH 10 mg ONCE PRN Administration movement during CT scan Fentanyl 50 mcg 12/27/20 13:11 Fentanyl Citrate/Pf 100 Mcg/2 Ml Vial IVPUSH Q5M PRN WOB or discomfort Fentanyl 100 mcg 12/27/20 13:12 12/27/20 13:45 Fentanyl Citrate/Pf 100 Mcg/2 Ml Vial IVPUSH 100 mcg Q5M PRN Administration severe WOB or sever discomfort Heparin Sodium (Porcine) 5,000 unit 12/28/20 06:00 12/28/20 05:45 Heparin Sodium,Porcine 5,000 Unit/Ml Vial SUBCUT 5,000 unit Q12H DEE Administration Epinephrine 5 mg/ Dextrose 255 mls @ 0 mls/hr 12/27/20 11:30 12/28/20 10:40 IVCONT 0.05 mcg/kg/min .Q0M DEE 16.86 mls/hr Titration Protocol Per Protocol Fentanyl 1,000 mcg in 100 mls @ 0 mls/hr 12/27/20 14:00 12/28/20 10:15 Sublimaze/Ns IVCONT 100 mcg/hr .Q0M DEE 10 mls/hr Titration Protocol Per Protocol Propofol 1,000 mg in 100 mls @ 0 mls/hr 12/27/20 12:00 12/28/20 10:39 Diprivan IVCONT 0 mcg/kg/min .Q0M DEE 0 mls/hr Titration Protocol Per Protocol Ampicillin Sodium/Sulbactam 100 mls @ 200 mls/hr 12/27/20 17:00 12/28/20 10:52 Sodium 3 gm/ Sodium Chloride IV 01/03/21 16:59 200 mls/hr Q6H DEE Administration Potassium Chloride/Sodium Chloride 40 meq in 1,000 mls @ 80 mls/hr 12/28/20 08:15 12/28/20 08:00 IVCONT 80 mls/hr .[id number] DEE Administration Amiodarone HCl 900 mg/ Sodium 518 mls @ 34.533 mls/hr 12/28/20 10:30 Chloride IVCONT .Q15H1M DEE Protocol 1 MG/MIN Insulin Human Lispro 0 unit 12/28/20 12:00 Insulin Lispro 100 Unit/Ml 3 Ml Vial SUBCUT Q6H DEE Protocol Omeprazole 40 mg 12/28/20 06:30 12/28/20 05:46 Omeprazole 20 Mg/10 Ml Susp.Recon PO 40 mg DAILY@0630 DEE Administration Potassium Chloride 40 meq 12/28/20 11:00 12/28/20 10:25 Potassium Chloride Packet 20 Meq Packet PO 12/28/20 11:01 40 meq ONCE ONE Administration Sodium Chloride 3 ml 12/14/20 00:00 12/28/20 09:17 0.9 % Sodium Chloride Flush 3 Ml Syringe IVFLUSH 3 ml QSHIFT DEE Administration Time Spent With Patient Time: Total time spent is greater than 50% in coordination of care (as documented) at patient's floor/unit and/or counseling patient: Time with patient: 15 - 24 minutes Procedures Date of Service Date of Service: 12/28/20
--- NOTE | 2020-12-28 11:10 | P.PNCC_ITS ---
Subjective Subjective Date of Service: 12/28/20 Interval History: 75-year-old obese female with type 2 diabetes and repeated episodes of acute on chronic diastolic CHF with secondary hyponatremia fluid overload and also paroxysmal atrial fibrillation for which she had chronically been on flecainide as well as metoprolol last received 24 hours ago and also on Eliquis Yesterday she was noted to be dysrhythmic with controlled heart rate at atrial fibrillation verses an organized atrial mechanism possibly flutter with progressive weakness and then all of a sudden bradycardia with high-grade AV block and placed back in bed being due to diminished mental status without a palpable carotid upstroke and and a 10 minutes CPR but she was noted to be awake when intubation was performed and the CT scan showed no pulmonary embolic issues some mild prominence to the right ventricle but preserved global LV systolic function and no primary valve or pericardial disease and she is down here on an epinephrine drip on along with sedation and because there was a question of an occluded right-sided bronchus intermedius and right lower lobe atelectasis of we did a bedside bronchoscopy and there was no visible occlusion in other words no inspissated mucus in that right bronchus intermedius and and there was mild pink tinged foamy sputum which we suctioned and x-ray basically showed a layering small right-sided pleural effusion but I do not see persistent atelectasis She has untreated sleep apnea with mild chronic pCO2 elevation but she does not utilize her home CPAP device Critical Care Time (minutes): 60 Physical Exam Vital Signs: Vital Signs: Last Vital Signs Temp 99.9 F 12/28/20 10:51 Pulse 80 12/28/20 10:51 Resp 18 12/28/20 10:51 BP 120/52 L 12/28/20 10:51 Pulse Ox 95 12/28/20 10:51 Oxygen Flow Rate 2 12/26/20 15:00 Body Mass Index 39.2 Const: Other: Arousable and nonfocal neurologic and able to follow commands Diminished breath sounds right base CVP measuring 10-11 with good wave morphology with X and Y descent No gallops no significant murmurs and bedside echo shows borderline concentric left ventricular hypertrophy with normal LV and RV systolic function Abdomen benign soft no organomegaly good bowel sounds Mild bilateral lower extremity edema and skin is intact Objective Data Labs CBC & Chem 7: 12/28/20 11:40 12/28/20 05:25 Labs: Laboratory Results - last 24 hr 12/27/20 12/27/20 12/27/20 11:26 12:52 13:07 WBC RBC Hgb Hct MCV MCH MCHC RDW Plt Count MPV Immature Gran % (Auto) Neut % (Auto) Lymph % (Auto) [place] % (Auto) Eos % (Auto) Baso % (Auto) Lymph # (Auto) [place] # (Auto) Eos # (Auto) Baso # (Auto) Abs Immat Gran (auto) Absolute Neuts (auto) Absolute Nucleated RBC Nucleated RBC % (auto) Smear Tech's Comments D-Dimer 2215 O2 Saturation 95.0 ABG pH at Pt Temp 7.38 ABG pH (Temp Correct) 7.40 ABG pCO2 at Pt Temp 56 H ABG pCO2 (Temp Corrct 53 H ABG pO2 at Pt Temp 74 L ABG pO2 (Temp Correct 68 L ABG HCO3 34 H ABG Base Excess (Actual) 7.3 VBG pH 7.45 H VBG pCO2 49 VBG pO2 55 VBG HCO3 34 H VBG O2 Saturation 87.0 VBG Base Excess 9.5 Sodium Potassium Chloride Carbon Dioxide Anion Gap BUN Creatinine Estim Creat Clear Calc Estimated GFR POC Glucose Random Glucose Lactic Acid Lactic Acid Fup @ 2Hr Lactic Acid Fup @ 4Hr Calcium Phosphorus Magnesium Total Bilirubin AST ALT Alkaline Phosphatase Troponin I High Sens B-Natriuretic Peptide Total Protein Albumin Urine Color Urine Appearance Urine pH Ur Specific [place] Urine Protein Urine Glucose (UA) Urine Ketones Urine Blood Urine Nitrite Ur Leukocyte Esterase Urine RBC Urine WBC Ur Squamous Epith Cells Urine Bacteria Hyaline Casts Granular Casts Urine Mucus 12/27/20 12/27/20 12/27/20 13:07 13:07 13:07 WBC RBC Hgb Hct MCV MCH MCHC RDW Plt Count MPV Immature Gran % (Auto) Neut % (Auto) Lymph % (Auto) [place] % (Auto) Eos % (Auto) Baso % (Auto) Lymph # (Auto) [place] # (Auto) Eos # (Auto) Baso # (Auto) Abs Immat Gran (auto) Absolute Neuts (auto) Absolute Nucleated RBC Nucleated RBC % (auto) Smear Tech's Comments D-Dimer O2 Saturation ABG pH at Pt Temp ABG pH (Temp Correct) ABG pCO2 at Pt Temp ABG pCO2 (Temp Corrct ABG pO2 at Pt Temp ABG pO2 (Temp Correct ABG HCO3 ABG Base Excess (Actual) VBG pH VBG pCO2 VBG pO2 VBG HCO3 VBG O2 Saturation VBG Base Excess Sodium 136 Potassium 3.0 L Chloride 88 L Carbon Dioxide 34 H Anion Gap 17 BUN 37 H Creatinine 1.13 Estim Creat Clear Calc 55.8 Estimated GFR 47 POC Glucose Random Glucose 237 H D Lactic Acid 3.2 H* Lactic Acid Fup @ 2Hr Lactic Acid Fup @ 4Hr Calcium 8.9 Phosphorus 3.6 Magnesium 2.1 Total Bilirubin 1.0 AST 33 H D ALT 28 Alkaline Phosphatase 77 Troponin I High Sens 123.2 H* B-Natriuretic Peptide 916 H Total Protein 6.3 L Albumin 3.8 Urine Color Urine Appearance Urine pH Ur Specific [place] Urine Protein Urine Glucose (UA) Urine Ketones Urine Blood Urine Nitrite Ur Leukocyte Esterase Urine RBC Urine WBC Ur Squamous Epith Cells Urine Bacteria Hyaline Casts Granular Casts Urine Mucus 12/27/20 12/27/20 12/27/20 13:07 15:08 17:05 WBC 31.1 H* RBC 3.73 L Hgb 12.1 Hct 37.6 MCV 100.8 H MCH 32.4 MCHC 32.2 RDW 13.2 Plt Count 219 D MPV 10.4 Immature Gran % (Auto) Neut % (Auto) Lymph % (Auto) [place] % (Auto) Eos % (Auto) Baso % (Auto) Lymph # (Auto) [place] # (Auto) Eos # (Auto) Baso # (Auto) Abs Immat Gran (auto) Absolute Neuts (auto) Absolute Nucleated RBC 0.000 Nucleated RBC % (auto) 0.0 Smear Tech's Comments D-Dimer O2 Saturation 98.0 ABG pH at Pt Temp 7.43 ABG pH (Temp Correct) 7.44 ABG pCO2 at Pt Temp 55 H ABG pCO2 (Temp Corrct 53 H ABG pO2 at Pt Temp 99 ABG pO2 (Temp Correct 93 ABG HCO3 37 H ABG Base Excess (Actual) 10.9 VBG pH VBG pCO2 VBG pO2 VBG HCO3 VBG O2 Saturation VBG Base Excess Sodium Potassium Chloride Carbon Dioxide Anion Gap BUN Creatinine Estim Creat Clear Calc Estimated GFR POC Glucose Random Glucose Lactic Acid Lactic Acid Fup @ 2Hr Lactic Acid Fup @ 4Hr Calcium Phosphorus Magnesium Total Bilirubin AST ALT Alkaline Phosphatase Troponin I High Sens 214.8 H* D B-Natriuretic Peptide Total Protein Albumin Urine Color Urine Appearance Urine pH Ur Specific [place] Urine Protein Urine Glucose (UA) Urine Ketones Urine Blood Urine Nitrite Ur Leukocyte Esterase Urine RBC Urine WBC Ur Squamous Epith Cells Urine Bacteria Hyaline Casts Granular Casts Urine Mucus 12/27/20 12/27/20 12/27/20 17:56 19:26 19:43 WBC RBC Hgb Hct MCV MCH MCHC RDW Plt Count MPV Immature Gran % (Auto) Neut % (Auto) Lymph % (Auto) [place] % (Auto) Eos % (Auto) Baso % (Auto) Lymph # (Auto) [place] # (Auto) Eos # (Auto) Baso # (Auto) Abs Immat Gran (auto) Absolute Neuts (auto) Absolute Nucleated RBC Nucleated RBC % (auto) Smear Tech's Comments D-Dimer O2 Saturation ABG pH at Pt Temp ABG pH (Temp Correct) ABG pCO2 at Pt Temp ABG pCO2 (Temp Corrct ABG pO2 at Pt Temp ABG pO2 (Temp Correct ABG HCO3 ABG Base Excess (Actual) VBG pH VBG pCO2 VBG pO2 VBG HCO3 VBG O2 Saturation VBG Base Excess Sodium 133 L Potassium 2.9 L Chloride 89 L Carbon Dioxide 31 H Anion Gap 16 BUN 40 H Creatinine 1.39 Estim Creat Clear Calc 45.3 Estimated GFR 37 POC Glucose 216 H Random Glucose 234 H Lactic Acid Lactic Acid Fup @ 2Hr Lactic Acid Fup @ 4Hr Calcium 8.4 Phosphorus Magnesium Total Bilirubin AST ALT Alkaline Phosphatase Troponin I High Sens B-Natriuretic Peptide Total Protein Albumin Urine Color YELLOW Urine Appearance HAZY Urine pH 7.0 Ur Specific [place] 1.010 Urine Protein 3+ H Urine Glucose (UA) NEG Urine Ketones NEG Urine Blood TRACE Urine Nitrite NEG Ur Leukocyte Esterase NEG Urine RBC 0-2 Urine WBC 5-9 H Ur Squamous Epith Cells TRACE Urine Bacteria 1+ Hyaline Casts 5-9 Granular Casts 0-2 Urine Mucus NONE 12/27/20 12/28/20 12/28/20 19:43 00:55 05:25 WBC RBC Hgb Hct MCV MCH MCHC RDW Plt Count MPV Immature Gran % (Auto) Neut % (Auto) Lymph % (Auto) [place] % (Auto) Eos % (Auto) Baso % (Auto) Lymph # (Auto) [place] # (Auto) Eos # (Auto) Baso # (Auto) Abs Immat Gran (auto) Absolute Neuts (auto) Absolute Nucleated RBC Nucleated RBC % (auto) Smear Tech's Comments D-Dimer O2 Saturation ABG pH at Pt Temp ABG pH (Temp Correct) ABG pCO2 at Pt Temp ABG pCO2 (Temp Corrct ABG pO2 at Pt Temp ABG pO2 (Temp Correct ABG HCO3 ABG Base Excess (Actual) VBG pH VBG pCO2 VBG pO2 VBG HCO3 VBG O2 Saturation VBG Base Excess Sodium 134 L Potassium 2.7 L Chloride 89 L Carbon Dioxide 31 H Anion Gap 17 BUN 40 H Creatinine 1.39 Estim Creat Clear Calc 45.3 Estimated GFR 37 POC Glucose Random Glucose 210 H Lactic Acid Lactic Acid Fup @ 2Hr Lactic Acid Fup @ 4Hr Calcium 8.6 Phosphorus Magnesium Total Bilirubin AST ALT Alkaline Phosphatase Troponin I High Sens 208.8 H* 133.6 H* B-Natriuretic Peptide Total Protein Albumin Urine Color Urine Appearance Urine pH Ur Specific [place] Urine Protein Urine Glucose (UA) Urine Ketones Urine Blood Urine Nitrite Ur Leukocyte Esterase Urine RBC Urine WBC Ur Squamous Epith Cells Urine Bacteria Hyaline Casts Granular Casts Urine Mucus 12/28/20 12/28/20 12/28/20 05:25 05:25 05:25 WBC 18.2 H RBC 3.24 L Hgb 10.6 L Hct 30.8 L MCV 95.1 D MCH 32.7 MCHC 34.4 RDW 13.3 Plt Count 173 MPV 9.8 Immature Gran % (Auto) 0.4 Neut % (Auto) 88.2 H Lymph % (Auto) 2.5 L [place] % (Auto) 8.8 Eos % (Auto) 0.0 Baso % (Auto) 0.1 Lymph # (Auto) 0.5 L [place] # (Auto) 1.6 H Eos # (Auto) 0.0 Baso # (Auto) 0.0 Abs Immat Gran (auto) 0.08 H Absolute Neuts (auto) 16.0 H Absolute Nucleated RBC 0.000 Nucleated RBC % (auto) 0.0 Smear Tech's Comments VERIFIED D-Dimer O2 Saturation ABG pH at Pt Temp ABG pH (Temp Correct) ABG pCO2 at Pt Temp ABG pCO2 (Temp Corrct ABG pO2 at Pt Temp ABG pO2 (Temp Correct ABG HCO3 ABG Base Excess (Actual) VBG pH VBG pCO2 VBG pO2 VBG HCO3 VBG O2 Saturation VBG Base Excess Sodium 134 L Potassium 2.6 L Chloride 90 L Carbon Dioxide 32 H Anion Gap 15 BUN 39 H Creatinine 1.39 Estim Creat Clear Calc 45.3 Estimated GFR 37 POC Glucose Random Glucose 176 H Lactic Acid 3.4 H* Lactic Acid Fup @ 2Hr Lactic Acid Fup @ 4Hr Calcium 8.5 Phosphorus 2.1 L Magnesium Total Bilirubin 1.1 H AST 26 ALT 22 Alkaline Phosphatase 64 Troponin I High Sens B-Natriuretic Peptide Total Protein 5.3 L Albumin 3.1 L Urine Color Urine Appearance Urine pH Ur Specific [place] Urine Protein Urine Glucose (UA) Urine Ketones Urine Blood Urine Nitrite Ur Leukocyte Esterase Urine RBC Urine WBC Ur Squamous Epith Cells Urine Bacteria Hyaline Casts Granular Casts Urine Mucus 12/28/20 12/28/20 12/28/20 05:25 07:18 08:02 WBC RBC Hgb Hct MCV MCH MCHC RDW Plt Count MPV Immature Gran % (Auto) Neut % (Auto) Lymph % (Auto) [place] % (Auto) Eos % (Auto) Baso % (Auto) Lymph # (Auto) [place] # (Auto) Eos # (Auto) Baso # (Auto) Abs Immat Gran (auto) Absolute Neuts (auto) Absolute Nucleated RBC Nucleated RBC % (auto) Smear Tech's Comments D-Dimer O2 Saturation 99.0 ABG pH at Pt Temp 7.62 H* ABG pH (Temp Correct) 7.62 H* ABG pCO2 at Pt Temp 34 ABG pCO2 (Temp Corrct 34 ABG pO2 at Pt Temp 162 H ABG pO2 (Temp Correct 163 H ABG HCO3 35 H ABG Base Excess (Actual) 13.6 VBG pH VBG pCO2 VBG pO2 VBG HCO3 VBG O2 Saturation VBG Base Excess Sodium Potassium Chloride Carbon Dioxide Anion Gap BUN Creatinine Estim Creat Clear Calc Estimated GFR POC Glucose 165 H Random Glucose Lactic Acid Lactic Acid Fup @ 2Hr 2.7 H* Lactic Acid Fup @ 4Hr Calcium Phosphorus Magnesium Total Bilirubin AST ALT Alkaline Phosphatase Troponin I High Sens B-Natriuretic Peptide Total Protein Albumin Urine Color Urine Appearance Urine pH Ur Specific [place] Urine Protein Urine Glucose (UA) Urine Ketones Urine Blood Urine Nitrite Ur Leukocyte Esterase Urine RBC Urine WBC Ur Squamous Epith Cells Urine Bacteria Hyaline Casts Granular Casts Urine Mucus 12/28/20 10:29 WBC RBC Hgb Hct MCV MCH MCHC RDW Plt Count MPV Immature Gran % (Auto) Neut % (Auto) Lymph % (Auto) [place] % (Auto) Eos % (Auto) Baso % (Auto) Lymph # (Auto) [place] # (Auto) Eos # (Auto) Baso # (Auto) Abs Immat Gran (auto) Absolute Neuts (auto) Absolute Nucleated RBC Nucleated RBC % (auto) Smear Tech's Comments D-Dimer O2 Saturation ABG pH at Pt Temp ABG pH (Temp Correct) ABG pCO2 at Pt Temp ABG pCO2 (Temp Corrct ABG pO2 at Pt Temp ABG pO2 (Temp Correct ABG HCO3 ABG Base Excess (Actual) VBG pH VBG pCO2 VBG pO2 VBG HCO3 VBG O2 Saturation VBG Base Excess Sodium Potassium Chloride Carbon Dioxide Anion Gap BUN Creatinine Estim Creat Clear Calc Estimated GFR POC Glucose Random Glucose Lactic Acid Lactic Acid Fup @ 2Hr Lactic Acid Fup @ 4Hr 1.9 Calcium Phosphorus Magnesium Total Bilirubin AST ALT Alkaline Phosphatase Troponin I High Sens B-Natriuretic Peptide Total Protein Albumin Urine Color Urine Appearance Urine pH Ur Specific [place] Urine Protein Urine Glucose (UA) Urine Ketones Urine Blood Urine Nitrite Ur Leukocyte Esterase Urine RBC Urine WBC Ur Squamous Epith Cells Urine Bacteria Hyaline Casts Granular Casts Urine Mucus Microbiology Microbiology Results: Microbiology 12/27/20 17:53 Urine clean catch - Clean Catch Midstream Urine Culture - Preliminary No growth to date. 12/27/20 17:56 Sputum - Suctioned Gram Stain - Final 12/27/20 17:56 Sputum - Suctioned Sputum Culture - Preliminary No growth to date. Progress Note: A&P Assessment and plan (1) PAF (paroxysmal atrial fibrillation): Status: Acute (2) Cardiac arrest: Status: Acute (3) Metabolic alkalosis: Status: Acute (4) Dysphagia: Status: Acute (5) Heart failure with preserved ejection fraction: Status: Acute (6) Hyponatremia: Status: Acute (7) CHF (congestive heart failure): Status: Acute (8) Fluid overload: Status: Acute (9) Acute diastolic CHF (congestive heart failure): Status: Acute (10) Sleep apnea: Status: Acute (11) Symptomatic bradycardia: Status: Acute (12) Sick sinus syndrome: Status: Acute (13) Acute renal failure due to tubular necrosis: Status: Acute Assessment and Plan: So the plan is to stop all sedation and attempt a PSV weaning trial and we did eventually have to switch her over to an SIMV because of of persistent lethargy Also awaiting a resolution of the acute tubular necrosis and she has a an excellent post glomerular diuresis currently so apparently will minimize medication but we will restore heparin because of the paroxysmal atrial fibrillation
--- NOTE | 2020-12-28 11:28 | MHC.CLN ---
F/U PT IS CURRENTLY NPO PT PENDING EXTUBATION TODAY PER MD DURING ROUNDS IF TF NEEDED; CONSULT RD IF DIET TO ADVANCE; RECOMMEND 2GM NA DIET FOLLOWING
[2020-12-28 11:47] LABS: Glucose, Whole Blood 137 mg/dL (60-115)
[2020-12-28 11:57] LABS: Hematocrit 29.3 % (37-47); Hemoglobin 9.8 g/dl (12.0-16.0); Mean Corpuscular HGB Conc 33.4 g/dl (31.0-35.0); Mean Corpuscular Hemoglobin 32.3 pg (27.0-33.0); Mean Corpuscular Volume 96.7 fL (80-98); Mean Platelet Volume 10.2 fL (9.4-12.3); Platelet Count 160 X10*3/uL (160-400); Red Blood Count 3.03 X10*6/uL (4.20-5.50); Red Cell Distribution Width 13.6 % (11.0-16.0); White Blood Count 14.5 X10*3/uL (4.8-10.8)
[2020-12-28 12:01] LABS: INTERNATIONAL NORM RATIO 1.7 (0.9-1.1); Prothrombin Time 19.7 SEC (10.8-13.0)
[2020-12-28 12:03] LABS: PTT Heparin Drip 27.9 SEC (53-77.9)
[2020-12-28] MEDS: Amiodarone HCL 900 MG in 0.9 % Sodium Chloride 500 ML 17.27 MG IVCONT (12:10)
[2020-12-28] MEDS: Heparin Sodium,Porcine/1/2NS 25,000 UNIT/250 ML IV.SOLN 10 UNIT IVCONT (12:13)
--- NOTE | 2020-12-28 14:34 | MHC.CM.PN ---
Pt remains intubated in ICU following initiation of CPR and AED administration. Plans for today are for bronchoscopy and then extubation. Pt's initial d/c plan was to transition to [facility] for STR. Clinical updates remitted for review. CM to follow in anticipation of d/c
[2020-12-28 17:49] LABS: ABG Base Excess 13.1 mmol/L; ABG HCO3 39 mmol/L (22-26); ABG pCO2 59 mmHg (32-45); ABG pCO2 TC 62 mmHg (32-45); ABG pH 7.42 (7.35-7.45); ABG pH TC 7.41 (7.35-7.45); ABG pO2 70 mmHg (83-108); ABG pO2 TC 75 (83-108)
[2020-12-28 17:52] LABS: Glucose, Whole Blood 117 mg/dL (60-115)
[2020-12-28 18:50] LABS: PTT Heparin Drip 74.1 SEC (53-77.9)
--- NOTE | 2020-12-28 19:01 | CA_ITS ---
Transthoracic Echocardiogram Patient (Last, First, Middle): Lucia Ch C Gender: Female Date of : 1945 Age: 75 Procedure Date: 12/28/2020 Procedure Type: Transthoracic Echocardiogram Location: ICU Height: 167.64 cm Weight: 110.22 kg BSA: 2.17 m2 Heart Rate: bpm BP: 137 / 53 mmHg Software Asset Manager: SLIME Referring MD: Demar Lopez Symptoms: hypotension post cardiac arrest Study Quality: Technically Difficult ECG Rhythm: Sinus Conclusions: - The left ventricular systolic function is normal. The visually estimated ejection fraction is between 60-65%. - RVSP = 39mmHg + RAP (on ventilator). - The inferior vena cava is mildly dilated. Findings Left Ventricle Normal left ventricular cavity size. The left ventricular systolic function is normal. The visually estimated ejection fraction is between 60-65%. There is no evidence of regional wall motion abnormalities. Tricuspid Valve Normal tricuspid valve structure. There is mild tricuspid valve regurgitation. RVSP = 39mmHg + RAP (on ventilator). Venous The inferior vena cava is mildly dilated. Prior Study Comparison No significant change compared to prior study dated: 11/19/2020. Measurements 2D Linear Measurements IVSd: 1.07 0.6-0.9/0.6-1.0 cm LVIDd: 3.50 3.9-5.3/4.2-5.9 cm LVIDd Index: 1.61 2.4-3.2/2.2-3.1 cm/m2 LVIDs: 2.02 2.0-3.6 cm LVPWd: 1.06 0.7-1.1 cm LV Mass: 141.00 67-162/88-224 g LV Mass Index: 64.98 43-95/49-115 g/m2 Mitral Valve MV Pk E: 1.33 MV PK A: 0.75 MV Decel Time: 258.00 E/A: 1.80 E'Lateral: 5.00 E'Medial: 6.09 E/E' Med: 21.80 E/E' Lat: 26.60 PHT: 76.00 MVA PHT: 2.89 Decel [place]: 5.17 Diastolic Function MV Pk E: 1.33 MV Pk A: 0.75 E/A: 1.80 E'Medial: 6.09 E/E' Med: 21.80 E' Laterial: 5.00 E/E' Lat: 26.60 Tricuspid Valve TR Pk Christiano: 3.12 TR Pk Grad: 39.00 Updated in Other Vendor System with Status of Final Vladislav Cervantes MD electronically signed on 12/28/2020 5:36:37 PM with status of Final
[2020-12-28 19:21] LABS: Anion Gap 13 (12-20); Blood Urea Nitrogen 34 mg/dL (9-16); Calcium 8.1 mg/dL (8.4-10.2); Carbon Dioxide 31 mmol/L (22-29); Chloride 97 mmol/L (96-108); Creatinine Clr Calc Pharmacy 54.3; Estimated Glomerular Filt Rate 46; Glucose Random 122 mg/dL (60-115); Potassium 3.2 mmol/L (3.3-5.1); Sodium 138 mmol/L (135-145)
[2020-12-28] MEDS: Albuterol/Iprat 2.5/0.5MG 3 ML AMPUL.NEB INHALE (19:38)
--- NOTE | 2020-12-28 19:58 | PC.NURSE ---
ASSUMED CARE AT 0700; PATIENT WAS ALERT AND ANXIOUS-APPEARING DESPITE FENTANYL GTT OF 200 AND PROPOFOL GTT AT 35 WITH A TREMULOUS RIGHT SHOULDER AND ARM, AND THIS WAS RESPONSIVE TO VERBAL THERAPEUTIC COMMUNICATION WELL INCREASING THE PROPOFOL FROM 35 TO 45 WITH GOOD EFFECT. PATIENT WAS BRONCHED AT 10 AM WITH A TOTAL OF 5 MG OF IVPUSH VERSED WITH GOOD EFFECT TO EXAMINE A ? COLLAPSED/OCCLUDED BRONCHUS, AND BRONCHI WERE VISUALIZED BY MD AND APPEARED PATENT, AND THESE WERE LAVAGED BY MD. PATIENT WAS WEANED OFF ALL SEDATION BY 1036 AM, AND THE PATIENT WAS TRIALED ON VARIOUS VENTILATOR SETTINGS STARTING WITH CHANGING FORM PRESSURE CONTROL TO AC/VC SETTINGS, THREE PSV TRIALS WERE DONE FOR 10 MINUTES, 10 MINUTES, AND 15 MINUTES RESPECTIVELY, AND PATIENT WAS ENCOURAGED TO BREATHE WHILE DEMONSTRATING APNEIC BREATHING PATTERN EACH TIME WITH RR ABOUT 6-8; PATIENT WAS FINALLY TRANSITIONED TO SIMV SETTINGS AND THE INITAL RATE OF 10 WAS UPTITRATED TO 12, AND THE INITIAL TCV OF 500 WAS UPTITRATED TO 550 BY MD PATIENT'S ETCO2 BALJIT TO STAY IN THE 50'S AND A TEMPORARY HIGH OF 63. CURRENTLTY HAS #7.5 ETT, 23 CM AT THE LIP (PREVIOUSLY RT HAD 24 RAMONE, AND RN HAD 25 RAMONE, MD IS AWARE AND NOT ADJUSTED ETT BUT CXR WAS DONE TODAY). INLINE SECRETIONS BLOODY AND THICK AND LESSENING IN QUANTITY OVER DAY. MINUTE VOLUMES WERE ABOUT 9 THIS AM AND NOW ABOUT 6-7; TIDAL VOLUMES WERE ABOUT 440-515 THIS AM AND NOW 470-560. LS CLEAR AND DIM BASES. PATIENT HAS BEEN IN SINUS RHYTHM ALL DAY ON THE MONITOR, SIGNIFICANT ARTIFACT ON MONITOR RESULTING FROM TREMULOUS ACTIVITY, MD AWARE. PATIENT WAS TAKING ATIVAN AT HOME FOR RLS, AND MD AWARE. PATIENT HAD K 2.6 THIS AM AND WAS STARTED ON NS WITH 40 MEQ KCL AT 80/ HOUR AND 2 X 40 MEQ OGT KCL WERE GIVEN AND CHEMISTRY RECHECKED AT 1800 TODAY. PATIENT WAS ON EPI GTT TODAY 0.07 AND THIS WAS TITIRATED DOWN WITH MD AND THIS WERE NOT TOLERATED BY PATIENT WITH MAP FALLING TO 52, SO EPI WAS MAINTAINED DESPITE ORDER FOR BEING ON HOLD IN [facility] AND MD AWARE WITH DOSE OF 0.03-0.04 UNTIL 1800, WHEN LEVOPHED WAS ORDERED INSTEAD, NOW AT 0.03.. PATIENT WAS STARTED ON IV AMIODARONE GTT PER MD WITHOUT LOADING DOSE, 0.5 MG/HOUR WELL TOLERATED. PATIENT WAS STARTED ON HEPARIN GTT AT 10 ML/HOUR RELATED TO PAF PER MD. LACTIC ACID TRENDED DOWN FROM 3.4 TO 2.7, MD AWARE. PATIENT LOW INTERMITTENT SUCTION STOPPED PER MD. NO BM TODAY. URINE OUTPUTS WERE VARIED, INITAILLY 50/HOUR, THEN 160-200/HOUR, NOW 25-40 PER HOUR, PALE YELLOW. PATIENT HAS ART LINE TO LEFT FOREARM, SMALL REDDENED AREA TO LEFT FOREARM AND +3 EDEMA TO LEFT ARM WHILE RIGHT ARM HAS +2 EDEMA WAS REPORTED TO MD, AND PA. ART LINE IS PATENT WITH GOOD BLOOD RETURN, ABGS CHECKED AND REPORTED THIS EVENING. +2 EDEMA TO FEET SEEMS TO HAVE IMPROVED OVER DAY. LEFT HIP BRUISE SEEMS TO BE IMPROVING.
[2020-12-28 20:44] LABS: ABG Refer to POC result
[2020-12-28] MEDS: dexmedeTOMIDidine HCL/NS 400 MCG/100 ML INFUS..BTL 13.78 MCG IVCONT (20:44)
[2020-12-28 23:14] LABS: Glucose, Whole Blood 108 mg/dL (60-115)
[2020-12-29] VITALS (35 sets, daily range): BP systolic 101–138; BP diastolic 37–61; PULSE 70–101; RESP 10–106; TEMP 37–37.9; O2SAT 91–95
[2020-12-29 01:18] LABS: PTT Heparin Drip 81.8 SEC (53-77.9)
[2020-12-29] MEDS: dexmedeTOMIDidine HCL/NS 400 MCG/100 ML INFUS..BTL 8.27 MCG IVCONT (02:38)
[2020-12-29] MEDS: Ampicillin Sodium/Sulbactam Na 3 GM in 0.9 % Sodium Chloride 100 ML IV ×3 (04:22→17:41)
[2020-12-29 05:29] LABS: ABG Base Excess 11.6 mmol/L; ABG HCO3 37 mmol/L (22-26); ABG pCO2 52 mmHg (32-45); ABG pCO2 TC 54 mmHg (32-45); ABG pH 7.45 (7.35-7.45); ABG pH TC 7.44 (7.35-7.45); ABG pO2 74 mmHg (83-108); ABG pO2 TC 77 (83-108)
[2020-12-29 05:53] LABS: Anion Gap 11 (12-20); Blood Urea Nitrogen 29 mg/dL (9-16); Carbon Dioxide 32 mmol/L (22-29); Chloride 100 mmol/L (96-108); Creatinine Clr Calc Pharmacy 73.3; Estimated Glomerular Filt Rate > 60; Glucose Random 111 mg/dL (60-115); Magnesium 1.9 mg/dL (1.6-2.6); Phosphorus 2.9 mg/dL (2.7-4.5); Potassium 3.3 mmol/L (3.3-5.1); Sodium 140 mmol/L (135-145)
[2020-12-29 05:56] LABS: B Type Natriuretic Peptide 445 pg/mL (<100); Troponin-I High Sensitivity 67.4 ng/L (<3.5-17.0)
[2020-12-29 05:59] LABS: Hemoglobin 9.6 g/dl (12.0-16.0); PLT CLUMP 1; Red Cell Distribution Width 14.2 % (11.0-16.0)
[2020-12-29 06:01] LABS: Hematocrit 29.1 % (37-47); Mean Corpuscular Hemoglobin 32.5 pg (27.0-33.0); Mean Corpuscular Volume 98.6 fL (80-98); Mean Platelet Volume 10.9 fL (9.4-12.3); Platelet Count 133 X10*3/uL (160-400); Red Blood Count 2.95 X10*6/uL (4.20-5.50); White Blood Count 15.6 X10*3/uL (4.8-10.8)
[2020-12-29 06:05] LABS: INTERNATIONAL NORM RATIO 1.6 (0.9-1.1); Prothrombin Time 18.5 SEC (10.8-13.0)
[2020-12-29 06:08] LABS: D Dimer 638 NG/ML
[2020-12-29 06:24] LABS: Partial Thromboplastin Time 62.2 SEC (24.1-38.0)
--- NOTE | 2020-12-29 06:36 | PC.NURSE ---
Patient remained on SIMV vent settings throughout the shift. Precedex was started and titrated as needed (see MAR). Patient remained on levophed, medication titrated for SBP > 65 and urine output. Urine output 50 ml/hr or greater. CVP during shift with readings of 10-12.
[2020-12-29] MEDS: Chlorhexidine Gluc Oral Rinse 15 ML MOUTHWASH BUCCAL (07:28)
[2020-12-29] MEDS: Potassium Chloride Packet 20 MEQ PACKET 40 MEQ PO (07:28)
[2020-12-29] MEDS: Albuterol/Iprat 2.5/0.5MG 3 ML AMPUL.NEB INHALE ×4 (07:28→20:26)
[2020-12-29] MEDS: Famotidine/PF 20 MG/2 ML VIAL IVPUSH (07:29)
[2020-12-29] MEDS: 0.9 % Sodium Chloride Flush 3 ML SYRINGE IVFLUSH ×2 (07:29→17:55)
[2020-12-29 08:32] LABS: PTT Heparin Drip 55.8 SEC (53-77.9)
[2020-12-29] MEDS: Heparin Sodium,Porcine/1/2NS 25,000 UNIT/250 ML IV.SOLN 7.79 UNIT IVCONT (10:30)
--- NOTE | 2020-12-29 10:31 | P.PNCA_ITS ---
Subjective Subjective Date of Service: 12/29/20 Interval history: Still intubated but awake. Review of Systems Review of Systems Yes unobtainable due to endotracheal tube and Unobtainable due to mental condition Physical Exam Vital Signs: Last Vital Signs Temp 99.7 F 12/29/20 10:00 Pulse 76 12/29/20 10:00 Resp 14 12/29/20 10:00 BP 125/52 L 12/29/20 10:00 Pulse Ox 92 12/29/20 10:00 Oxygen Flow Rate 2 12/26/20 15:00 Body Mass Index 39.2 Const General: no acute distress [facility] Other: Unremarkable Neck Neck: Yes normal visual inspection Chest Chest palpation & inspection: normal inspection of the chest Resp Auscultation: clear to auscultation bilaterally, no crackles and no wheezes Cardio Jugular venous distension: no JVD Palpation: normal PMI Heart sounds: S1 normal heart sound present, S2 normal heart sound present, no gallops, no murmurs and no rubs GI Palpation (GI): Soft to palpation Back/Spine/Pelvis Other: unremarkable Skin General skin exam: no rashes or lesions noted Extrem General: Yes no clubbing, cyanosis or edema Psych Other: intubated and cannot assess Results Labs and Meds Result diagrams: 12/29/20 05:20 12/29/20 05:20 Lab results: Laboratory Results - last 24 hr 12/28/20 12/28/20 12/28/20 10:29 11:40 11:40 WBC 14.5 H RBC 3.03 L Hgb 9.8 L Hct 29.3 L MCV 96.7 MCH 32.3 MCHC 33.4 RDW 13.6 Plt Count 160 MPV 10.2 Absolute Nucleated RBC 0.000 Nucleated RBC % (auto) 0.0 PT 19.7 H INR 1.7 H APTT PTT (Heparin Protocol) 27.9 L D-Dimer O2 Saturation ABG pH at Pt Temp ABG pH (Temp Correct) ABG pCO2 at Pt Temp ABG pCO2 (Temp Corrct ABG pO2 at Pt Temp ABG pO2 (Temp Correct ABG HCO3 ABG Base Excess (Actual) Sodium Potassium Chloride Carbon Dioxide Anion Gap BUN Creatinine Estim Creat Clear Calc Estimated GFR POC Glucose Random Glucose Lactic Acid Fup @ 4Hr 1.9 Calcium Phosphorus Magnesium Troponin I High Sens B-Natriuretic Peptide 05/24/21 05/24/21 05/24/21 11:43 17:42 17:48 WBC RBC Hgb Hct MCV MCH MCHC RDW Plt Count MPV Absolute Nucleated RBC Nucleated RBC % (auto) PT INR APTT PTT (Heparin Protocol) D-Dimer O2 Saturation 92.0 ABG pH at Pt Temp 7.42 ABG pH (Temp Correct) 7.41 ABG pCO2 at Pt Temp 59 H ABG pCO2 (Temp Corrct 62 H* ABG pO2 at Pt Temp 70 L ABG pO2 (Temp Correct 75 L ABG HCO3 39 H ABG Base Excess (Actual) 13.1 Sodium Potassium Chloride Carbon Dioxide Anion Gap BUN Creatinine Estim Creat Clear Calc Estimated GFR POC Glucose 137 H 117 H Random Glucose Lactic Acid Fup @ 4Hr Calcium Phosphorus Magnesium Troponin I High Sens B-Natriuretic Peptide 12/28/20 12/28/20 12/28/20 18:24 18:24 23:11 WBC RBC Hgb Hct MCV MCH MCHC RDW Plt Count MPV Absolute Nucleated RBC Nucleated RBC % (auto) PT INR APTT PTT (Heparin Protocol) 74.1 D D-Dimer O2 Saturation ABG pH at Pt Temp ABG pH (Temp Correct) ABG pCO2 at Pt Temp ABG pCO2 (Temp Corrct ABG pO2 at Pt Temp ABG pO2 (Temp Correct ABG HCO3 ABG Base Excess (Actual) Sodium 138 Potassium 3.2 L D Chloride 97 Carbon Dioxide 31 H Anion Gap 13 BUN 34 H Creatinine 1.16 Estim Creat Clear Calc 54.3 Estimated GFR 46 POC Glucose 108 Random Glucose 122 H Lactic Acid Fup @ 4Hr Calcium 8.1 L Phosphorus Magnesium Troponin I High Sens B-Natriuretic Peptide 12/29/20 12/29/20 12/29/20 01:05 05:20 05:20 WBC 15.6 H RBC 2.95 L Hgb 9.6 L Hct 29.1 L MCV 98.6 H MCH 32.5 MCHC 33.0 RDW 14.2 Plt Count 133 L MPV 10.9 Absolute Nucleated RBC 0.000 Nucleated RBC % (auto) 0.0 PT Cancelled INR Cancelled APTT PTT (Heparin Protocol) 81.8 H D-Dimer O2 Saturation ABG pH at Pt Temp ABG pH (Temp Correct) ABG pCO2 at Pt Temp ABG pCO2 (Temp Corrct ABG pO2 at Pt Temp ABG pO2 (Temp Correct ABG HCO3 ABG Base Excess (Actual) Sodium Potassium Chloride Carbon Dioxide Anion Gap BUN Creatinine Estim Creat Clear Calc Estimated GFR POC Glucose Random Glucose Lactic Acid Fup @ 4Hr Calcium Phosphorus Magnesium Troponin I High Sens B-Natriuretic Peptide 12/29/20 12/29/20 12/29/20 05:20 05:20 05:20 WBC RBC Hgb Hct MCV MCH MCHC RDW Plt Count MPV Absolute Nucleated RBC Nucleated RBC % (auto) PT 18.5 H INR 1.6 H APTT 62.2 H* D PTT (Heparin Protocol) D-Dimer 638 O2 Saturation ABG pH at Pt Temp ABG pH (Temp Correct) ABG pCO2 at Pt Temp ABG pCO2 (Temp Corrct ABG pO2 at Pt Temp ABG pO2 (Temp Correct ABG HCO3 ABG Base Excess (Actual) Sodium 140 Potassium 3.3 Chloride 100 Carbon Dioxide 32 H Anion Gap 11 L BUN 29 H Creatinine 0.86 Estim Creat Clear Calc 73.3 Estimated GFR > 60 POC Glucose Random Glucose 111 Lactic Acid Fup @ 4Hr Calcium 8.0 L Phosphorus 2.9 Magnesium 1.9 Troponin I High Sens 67.4 H* B-Natriuretic Peptide 445 H 12/29/20 12/29/20 12/29/20 05:21 08:00 Unknown WBC RBC Hgb Hct MCV MCH MCHC RDW Plt Count MPV Absolute Nucleated RBC Nucleated RBC % (auto) PT INR APTT PTT (Heparin Protocol) 55.8 D D-Dimer O2 Saturation 94.0 Cancelled ABG pH at Pt Temp 7.45 Cancelled ABG pH (Temp Correct) 7.44 Cancelled ABG pCO2 at Pt Temp 52 H Cancelled ABG pCO2 (Temp Corrct 54 H Cancelled ABG pO2 at Pt Temp 74 L Cancelled ABG pO2 (Temp Correct 77 L Cancelled ABG HCO3 37 H Cancelled ABG Base Excess (Actual) 11.6 Cancelled Sodium Potassium Chloride Carbon Dioxide Anion Gap BUN Creatinine Estim Creat Clear Calc Estimated GFR POC Glucose Random Glucose Lactic Acid Fup @ 4Hr Calcium Phosphorus Magnesium Troponin I High Sens B-Natriuretic Peptide Imaging Radiologist's impression: Impressions Chest X-Ray 05/24/21 10:52 IMPRESSION: No pneumothorax or pneumomediastinum post bronchoscopy. Question new pulmonary venous redistribution versus changes related to apical lordotic film technique. Otherwise chest x-rays similar to yesterday's exams exams. Venous Duplex 12/28/20 22:45 IMPRESSION: No thrombus identified within visualized veins of the left upper extremity, however, the left subclavian vein was not clearly visualized due to overlying bandages. Progress Note: A&P Assessment and plan (1) Cardiac arrest: Status: Acute (2) Heart failure with preserved ejection fraction: Status: Acute (3) PAF (paroxysmal atrial fibrillation): Status: Acute Assessment and Plan: Events noted as well as the strips. It appears that she was in atrial fibrillation with slow rate which was followed by ventricular fibrillation and she was then resuscitated. Currently in ICU and on mechanical ventilation. Plan is to wean her off the ventilator. Off flecainide. Current rhythm is sinus. Continue Amiodarone. When able, switch to PO. If she again gets bradycardic, then need to discuss about pacemaker placement. Will need to optimize electrolytes. High sensitivity troponins are elevated but that is most likely from the acute arrest situation. At some point, will consider cardiac catheterization for ischemia evaluation. Will follow up with you. Fall Risk Details Current Medications: Current Medications Generic Name Dose Route Start Last Admin Trade Name Freq PRN Reason Stop Dose Admin Albuterol/Ipratropium 3 ml 12/28/20 20:00 12/29/20 07:28 Albuterol/Iprat 2.5/0.5mg 3 Ml Ampul.Neb INHALE 3 ml RQ4H WHILE AWAKE DEE Administration Chlorhexidine Gluconate 15 ml 12/27/20 21:00 12/29/20 07:28 Chlorhexidine Gluc Oral Rinse 15 Ml Mouthwash BUCCAL 15 ml TID DEE Administration Famotidine 20 mg 12/29/20 09:00 12/29/20 07:29 Famotidine/Pf 20 Mg/2 Ml Vial IVPUSH 20 mg DAILY DEE Administration Heparin Sodium (Porcine) 4,400 unit 12/28/20 11:01 Heparin Sodium,Porcine 5,000 Unit/Ml Vial 40 unit/kg (4400 unit) IVPUSH BOLUS PRN 40 unit/kg - Heparin Protocol Heparin Sodium (Porcine) 8,800 unit 12/28/20 11:27 Heparin Sodium,Porcine 5,000 Unit/Ml Vial 80 unit/kg (8800 unit) IVPUSH BOLUS PRN 80 unit/kg - Heparin Protocol Protocol Ampicillin Sodium/Sulbactam 100 mls @ 200 mls/hr 12/27/20 17:00 12/29/20 05: 01 Sodium 3 gm/ Sodium Chloride IV 01/03/21 16:59 Infused Q6H DEE Infusion Amiodarone HCl 900 mg/ Sodium 518 mls @ 17.267 mls/hr 12/28/20 10:30 12/29/20 04:27 Chloride IVCONT Not Given .Q24H DEE Protocol 0.5 MG/MIN Heparin Sodium/Sodium Chloride 25,000 unit in 250 mls @ 0 mls/hr 12/28/20 11:15 12/29/20 01:54 IVCONT 7.07 units/kg/hr .Q0M DEE 7.79 mls/hr Titration Protocol Per Protocol Norepinephrine Bitartrate 8 mg in 250 mls @ 0 mls/hr 12/28/20 17:30 12/29/20 04:24 Levophed IVCONT 0.04 mcg/kg/min .Q0M DEE 8.27 mls/hr Titration Protocol Per Protocol Dexmedetomidine HCl 400 mcg in 100 mls @ 0 mls/hr 12/28/20 20:00 12/29/20 07:30 Precedex IVCONT 0 mcg/kg/hr .Q0M DEE 0 mls/hr Titration Protocol Per Protocol Insulin Human Lispro 0 unit 12/28/20 12:00 12/29/20 06:05 Insulin Lispro 100 Unit/Ml 3 Ml Vial SUBCUT Not Given Q6H DEE Protocol Sodium Chloride 3 ml 12/14/20 00:00 12/29/20 07:29 0.9 % Sodium Chloride Flush 3 Ml Syringe IVFLUSH 3 ml QSHIFT DEE Administration Time Spent With Patient Time: Total time spent is greater than 50% in coordination of care (as documented) at patient's floor/unit and/or counseling patient: Time with patient: less than 15 minutes Procedures Date of Service Date of Service: 12/29/20
[2020-12-29] MEDS: Milk of Magnesia 30 ML ORAL.SUSP OG-TUBE (11:11)
[2020-12-29] MEDS: Amiodarone HCL 900 MG in 0.9 % Sodium Chloride 500 ML 17.27 MG IVCONT (11:12)
[2020-12-29 11:26] LABS: Glucose, Whole Blood 103 mg/dL (60-115)
[2020-12-29 14:24] LABS: PTT Heparin Drip 50.3 SEC (53-77.9)
--- NOTE | 2020-12-29 14:43 | PC.NURSE ---
Assumed care at 0700. Patient was on precedex, which was stopped at 0730 per MD. Patient able to follow commands and move all extremities, PERRLA, tracking, nods and shakes head to simple questions. Patient was on SIMV settings, the mandatory rate was gradually decreased from 10 to 8 and the patient was seen to breathe over the mandatory rate, and patient was maintaining RR about 12-16; spo2 mid 90's%. Patient was successfully transitioned to PSV settings and [place] [address] am. Currently on AVAP settings with CPAP machine, Rate 12, TV 500; EPAP is 8; FiO2 is 40%; Spo2 has been 90-93% mostly with some desaturation to 88% with turning. Patient is now oriented to person, place, and situation, but not time. Was reoriented and is being closely monitored. Patient levophed was also successfully discontinued at 1200 pm and patient has had slightly low BP, with MAP about 59-62 and MD has been ok with this and leaving levo off. Patient has speech therapy bedside swallow eval ordered and is NPO pending results. Patient POC has been 100-130 and no coverage has been given. Pateint continues on amiodarone and is in sinus rhythm on monitor. Patient contines on heparin gtt, had one no change today and results are currently pending. Patient does report pain to chest, left side, vague description, worse with deep inspiration. Patient was medicated with IV tylenol this morning in preparation for breathing trial with minimal good effect. Patient is now being treated with ice pack to chest and MD is aware, discussed with MD and new order for IV torradol is stated plan. Evening shift is following up. Edema to bilateral arms appears improved. Continues to have redness to left arm and has pink nolan on left arm. CVP has been about 9-11.
--- NOTE | 2020-12-29 15:00 | P.PNCC_ITS ---
Subjective Subjective Date of Service: 12/29/20 Interval History: 75-year-old female with type 2 diabetes and morbid obesity and apparently chronic and probably acute on chronic hypercarbic respiratory failure with untreated sleep apnea and probable obesity/hypoventilation admitted with christopher perez and probable acute on chronic diastolic CHF exacerbated by degree of cor pulmonale with peripheral edema and then over-diuresis and then look secondarily acute tubular necrosis and in addition paroxysmal atrial fibrillation for which she was on right up until and including the morning of the cardiac arrest flecainide and metoprolol Became altered with near on arousability in retrospect might have been hypoventilating with combined hypoxic and hypercarbic respiratory failure then became bradycardic then pulseless electrical activity and requiring a 10 minutes resuscitation but it was noted that during intubation she appeared to be awake and she has had several rib fractures from the resuscitation spent at least 30- 36 hours on the ventilator had right lower lobe atelectasis without any apparent obstructing lesion noted on bronchoscopy and today when more awake was more easily weaned 1st in IMV mode and then a pressure support mode off the ventilator and on to noninvasive ventilation with BiPAP and doing very well with repaired renal insufficiency and repaired mental status and negative troponins with no loss of LV systolic function whatsoever and never made a positive troponin Critical Care Time (minutes): 45 Physical Exam Vital Signs: Vital Signs: Last Vital Signs Temp 99.1 F 12/29/20 14:00 Pulse 76 12/29/20 14:00 Resp 11 L 12/29/20 14:00 BP 107/43 L 12/29/20 14:00 Pulse Ox 93 12/29/20 14:00 Oxygen Flow Rate 2 12/26/20 15:00 Body Mass Index 39.2 Const: Other: Awake and alert and following commands and nonfocal neurologically Normal sinus rhythm with stable CVP of 10 in and no gallops or murmurs Chest with diminished bilateral breath sounds but no adventitious sounds but end-tidal CO2 pattern shows a a gradual upsloping pattern which is classic for bronchospasm and she is on treatments Abdomen benign soft with good bowel sounds and no organomegaly and awaiting a swallow study Minimal and diminishing bilateral peripheral edema Objective Data Labs CBC & Chem 7: 12/29/20 05:20 12/29/20 05:20 Labs: Laboratory Results - last 24 hr 12/28/20 12/28/20 12/28/20 17:42 17:48 18:24 WBC RBC Hgb Hct MCV MCH MCHC RDW Plt Count MPV Absolute Nucleated RBC Nucleated RBC % (auto) PT INR APTT PTT (Heparin Protocol) D-Dimer O2 Saturation 92.0 ABG pH at Pt Temp 7.42 ABG pH (Temp Correct) 7.41 ABG pCO2 at Pt Temp 59 H ABG pCO2 (Temp Corrct 62 H* ABG pO2 at Pt Temp 70 L ABG pO2 (Temp Correct 75 L ABG HCO3 39 H ABG Base Excess (Actual) 13.1 Sodium 138 Potassium 3.2 L D Chloride 97 Carbon Dioxide 31 H Anion Gap 13 BUN 34 H Creatinine 1.16 Estim Creat Clear Calc 54.3 Estimated GFR 46 POC Glucose 117 H Random Glucose 122 H Calcium 8.1 L Phosphorus Magnesium Troponin I High Sens B-Natriuretic Peptide 12/28/20 12/28/20 12/29/20 18:24 23:11 01:05 WBC RBC Hgb Hct MCV MCH MCHC RDW Plt Count MPV Absolute Nucleated RBC Nucleated RBC % (auto) PT INR APTT PTT (Heparin Protocol) 74.1 D 81.8 H D-Dimer O2 Saturation ABG pH at Pt Temp ABG pH (Temp Correct) ABG pCO2 at Pt Temp ABG pCO2 (Temp Corrct ABG pO2 at Pt Temp ABG pO2 (Temp Correct ABG HCO3 ABG Base Excess (Actual) Sodium Potassium Chloride Carbon Dioxide Anion Gap BUN Creatinine Estim Creat Clear Calc Estimated GFR POC Glucose 108 Random Glucose Calcium Phosphorus Magnesium Troponin I High Sens B-Natriuretic Peptide 12/29/20 12/29/20 12/29/20 05:20 05:20 05:20 WBC 15.6 H RBC 2.95 L Hgb 9.6 L Hct 29.1 L MCV 98.6 H MCH 32.5 MCHC 33.0 RDW 14.2 Plt Count 133 L MPV 10.9 Absolute Nucleated RBC 0.000 Nucleated RBC % (auto) 0.0 PT Cancelled 18.5 H INR Cancelled 1.6 H APTT 62.2 H* D PTT (Heparin Protocol) D-Dimer 638 O2 Saturation ABG pH at Pt Temp ABG pH (Temp Correct) ABG pCO2 at Pt Temp ABG pCO2 (Temp Corrct ABG pO2 at Pt Temp ABG pO2 (Temp Correct ABG HCO3 ABG Base Excess (Actual) Sodium Potassium Chloride Carbon Dioxide Anion Gap BUN Creatinine Estim Creat Clear Calc Estimated GFR POC Glucose Random Glucose Calcium Phosphorus Magnesium Troponin I High Sens B-Natriuretic Peptide 12/29/20 12/29/20 12/29/20 05:20 05:20 05:21 WBC RBC Hgb Hct MCV MCH MCHC RDW Plt Count MPV Absolute Nucleated RBC Nucleated RBC % (auto) PT INR APTT PTT (Heparin Protocol) D-Dimer O2 Saturation 94.0 ABG pH at Pt Temp 7.45 ABG pH (Temp Correct) 7.44 ABG pCO2 at Pt Temp 52 H ABG pCO2 (Temp Corrct 54 H ABG pO2 at Pt Temp 74 L ABG pO2 (Temp Correct 77 L ABG HCO3 37 H ABG Base Excess (Actual) 11.6 Sodium 140 Potassium 3.3 Chloride 100 Carbon Dioxide 32 H Anion Gap 11 L BUN 29 H Creatinine 0.86 Estim Creat Clear Calc 73.3 Estimated GFR > 60 POC Glucose Random Glucose 111 Calcium 8.0 L Phosphorus 2.9 Magnesium 1.9 Troponin I High Sens 67.4 H* B-Natriuretic Peptide 445 H 12/29/20 12/29/20 12/29/20 08:00 11:23 13:58 WBC RBC Hgb Hct MCV MCH MCHC RDW Plt Count MPV Absolute Nucleated RBC Nucleated RBC % (auto) PT INR APTT PTT (Heparin Protocol) 55.8 D 50.3 L D-Dimer O2 Saturation ABG pH at Pt Temp ABG pH (Temp Correct) ABG pCO2 at Pt Temp ABG pCO2 (Temp Corrct ABG pO2 at Pt Temp ABG pO2 (Temp Correct ABG HCO3 ABG Base Excess (Actual) Sodium Potassium Chloride Carbon Dioxide Anion Gap BUN Creatinine Estim Creat Clear Calc Estimated GFR POC Glucose 103 Random Glucose Calcium Phosphorus Magnesium Troponin I High Sens B-Natriuretic Peptide 12/29/20 Unknown WBC RBC Hgb Hct MCV MCH MCHC RDW Plt Count MPV Absolute Nucleated RBC Nucleated RBC % (auto) PT INR APTT PTT (Heparin Protocol) D-Dimer O2 Saturation Cancelled ABG pH at Pt Temp Cancelled ABG pH (Temp Correct) Cancelled ABG pCO2 at Pt Temp Cancelled ABG pCO2 (Temp Corrct Cancelled ABG pO2 at Pt Temp Cancelled ABG pO2 (Temp Correct Cancelled ABG HCO3 Cancelled ABG Base Excess (Actual) Cancelled Sodium Potassium Chloride Carbon Dioxide Anion Gap BUN Creatinine Estim Creat Clear Calc Estimated GFR POC Glucose Random Glucose Calcium Phosphorus Magnesium Troponin I High Sens B-Natriuretic Peptide Microbiology Microbiology Results: Microbiology 12/27/20 17:53 Urine clean catch - Clean Catch Midstream Urine Culture - Final No growth. 12/27/20 17:56 Sputum - Suctioned Gram Stain - Final 12/27/20 17:56 Sputum - Suctioned Sputum Culture - Preliminary Normal so far. Progress Note: A&P Assessment and plan (1) Acute renal failure due to tubular necrosis: Status: Acute (2) Sick sinus syndrome: Status: Acute (3) Symptomatic bradycardia: Status: Acute (4) Sleep apnea: Status: Acute (5) PAF (paroxysmal atrial fibrillation): Status: Acute (6) Cardiac arrest: Status: Acute (7) Metabolic alkalosis: Status: Acute (8) Dysphagia: Status: Acute (9) Heart failure with preserved ejection fraction: Status: Acute (10) Metabolic alkalosis: Status: Acute (11) Hyperkalemia: Status: Acute (12) Hyponatremia: Status: Acute (13) CHF (congestive heart failure): Status: Acute (14) Fluid overload: Status: Acute (15) Acute diastolic CHF (congestive heart failure): Status: Acute (16) Uncontrolled hypertension: Status: Acute (17) Acute hypercapnic respiratory failure due to obstructive sleep apnea: Status: Acute Assessment and Plan: Currently weaned off the invasive ventilator to BiPAP and tolerating well just needs pain control and we need to avoid narcotic and benzodiazepine will work with 1 dose of Toradol and we are awaiting a swallow study because of history of dysphagia and questionable aspiration
[2020-12-29] MEDS: Ketorolac Tromethamine 30 MG/ML VIAL IVPUSH (15:25)
--- NOTE | 2020-12-29 15:25 | MHC.SLORD ---
Speech Language Pathology Order Status: Order for bedside swallow eval received. MARINE FITTER called ICU. Patient was extubated this morning. Policy/ best practice to wait 24-48 hours post-extubation for eval due to high aspiration risk. Plan for PO trials tomorrow morning.
[2020-12-29 17:38] LABS: Glucose, Whole Blood 112 mg/dL (60-115)
[2020-12-29 20:13] LABS: Basophils Percent Auto 0.1 % (0-2); Eosinophils Percent Auto 0.1 % (0-4); Hematocrit 26.1 % (37-47); Hemoglobin 8.3 g/dl (12.0-16.0); Imm Gran Abs Auto 0.08 X10*3/uL (0.00-0.03); Imm Gran Pct Auto 0.5 % (0.0-0.4); Lymphocytes Absolute Auto 0.3 X10*3/uL (1.2-4.9); Lymphocytes Percent Auto 1.5 % (20-40); MANUAL DIFF FLAG SCAN; Mean Corpuscular HGB Conc 31.8 g/dl (31.0-35.0); Mean Corpuscular Hemoglobin 32.8 pg (27.0-33.0); Mean Corpuscular Volume 103.2 fL (80-98); Monocytes Percent Auto 5.8 % (2-11); Neutrophils Absolute Auto 15.1 X10*3/uL (2.0-8.3); Platelet Count 108 X10*3/uL (160-400); Red Blood Count 2.53 X10*6/uL (4.20-5.50); Red Cell Distribution Width 14.4 % (11.0-16.0); SCAN SMEAR FLAG 1; White Blood Count 16.4 X10*3/uL (4.8-10.8)
[2020-12-29 20:35] LABS: SLIDE REVIEW VERIFIED
[2020-12-29 20:36] LABS: Anion Gap 11 (12-20); Blood Urea Nitrogen 26 mg/dL (9-16); Calcium 7.7 mg/dL (8.4-10.2); Carbon Dioxide 33 mmol/L (22-29); Chloride 101 mmol/L (96-108); Creatinine Clr Calc Pharmacy 78.7; Estimated Glomerular Filt Rate > 60; Glucose Random 121 mg/dL (60-115); Potassium 3.6 mmol/L (3.3-5.1); Sodium 141 mmol/L (135-145)
[2020-12-29 21:43] LABS: PTT Heparin Drip 97.8 SEC (53-77.9)
--- NOTE | 2020-12-29 23:08 | PC.NURSE ---
PT TO ICU AT 1530 FROM PACU. PT NOT FULLY AWAKE BUT AROUSABLE TO NAME OR LIGHT TOUCH. BP STABLE 107/45 TO 138/52 VIA A-LINE LEFT RADIAL ARTERY. DHAVAL DOES NOT CORRELATE TO MANUAL BP. A-LINE ZERO TRIMMED AND CALIBRATED, LEVELED PER PROTOCOL. DR PALOMARES AT BEDSIDE WITH PT. NO PULSES WITH DOPPLER RIGHT FOOT AND FOOT IS COOL TO TOUCH. POSITIVE POPLITEAL PULSE NOTED WITH DOPPLER. RIGHT FOOT BECAME WARMER SHIFT WENT ON BUT STILL NO PULSES HEARD IN THAT FOOT. DR PALOMARES CALLED THE UNIT FOR AN UPDATE AND WAS INFORMED OF THIS. ALSO INFORMED OF POSITIVE BLOOD IN URINE SEEN ON U/A. HE GAVE ORDER FOR HEPARIN DRIP AT 500 UNITS/HR DESPITE BLOOD IN URINE. PT RESTLESS AND ALMOST IMPULSIVE AT TIMES WANTING TO GET OOB. HE WOULD C/O SHOOTING PAIN IN THAT RIGHT LEG. HE RECEIVED 3 DOSES OF FENTANYL 50 MCG IV WITH GOOD EFFECT. HE BECAME DIAPHORETIC POSSIBLY FROM THE MED BUT DR PALOMARES STATED IT COULD BE ALCOHOL WITHDRAWAL. NEXT PAIN MED WAS OXYCODONE 5 MG PO FOLLOWED BY MORPHINE 4 MG IV PT WAS C/O SEVERE PAIN. THIS HELPED AND HE RELAXED. HE LATER RECEIVED A DOSE OF ATIVAN 0.5 MG PO X1. RIGHT GROIN DSG IS D&I
[2020-12-29 23:31] LABS: Glucose, Whole Blood 125 mg/dL (60-115)
[2020-12-29 23:42] LABS: Partial Thromboplastin Time 46.5 SEC (24.1-38.0)
[2020-12-30] VITALS (49 sets, daily range): BP systolic 83–166; BP diastolic 23–57; PULSE 96–142; RESP 10–19; TEMP 36.4–38.4; O2SAT 91–100
[2020-12-30] MEDS: Ampicillin Sodium/Sulbactam Na 3 GM in 0.9 % Sodium Chloride 100 ML IV ×2 (00:14→05:37)
[2020-12-30] MEDS: Argatroban 250 MG in 0.9 % Sodium Chloride 250 ML 6.68 MG IV ×2 (00:30→00:36)
[2020-12-30] MEDS: 0.9 % Sodium Chloride Flush 3 ML SYRINGE IVFLUSH ×4 (00:38→23:17)
[2020-12-30] MEDS: HYDROmorphone HCl 0.5 MG/0.5 ML SYRINGE IVPUSH ×2 (00:40→21:32)
--- NOTE | 2020-12-30 01:50 | PC.NURSE ---
ASSUMED CARE OF PT AT 1500. PT ON CPAP AND TOLERATING WELL. O2 SAT 90-94%. ATTEMPTED TO REMOVE MASK AND NASAL CANNULA APPLIED AT 6L BUT PT DID NOT TOLERATE. O2 SATS DROPPED TO 80'S. PT OFF CPAP ABOUT 10 MIN AND THEN CPAP RE-APPLIED. FOAN DSG TO BRIDGE OF NOSE FOR SKIN PROTECTION. A-LINE INTACT LEFT RADIAL ARTERY AND WAS ZEROTRIMMED AND CALIBRATEDAND LEVELED PER POLICY. GOOD WAVEFORM NOTED. CVP 10 PER CENTRAL LINE. U/O 30-50 ML/HR. BP IS STABLE. MONITOR SHOWS NSR, 1ST DEGREE AVB NOTED. CONTINUES ON AMIODARONE AR 0.5 MG/MIN. LABS DRAWN AND SHOWED PLATELET COUNT DROPPING. VALERY LAU AWARE AND D/C'D HEPARIN DRIP. PTT 97.8 AT 2120. ARGATROBAN STARTED AFTER PTT <65 AT 2320. DRIP STARTED AT 1 MCG/KG/MIN. WILL RECHECK PTT IN 2HRS AND ORDERS GIVEN TO ADJUST DRIP BASED ON RESULTS. PT C/O RIB PAIN WHEN TURNING TO REPOSITION. RECEIVED ONE DOSE OF TORADOL AND ONE DOSE OF DILAUDID WITH GOOD EFFECT.
[2020-12-30 02:52] LABS: Partial Thromboplastin Time 65.3 SEC (24.1-38.0)
[2020-12-30 03:09] LABS: ABG HCO3 38 mmol/L (22-26); ABG pCO2 90 mmHg (32-45); ABG pCO2 TC 89 mmHg (32-45); ABG pH 7.23 (7.35-7.45); ABG pH TC 7.23 (7.35-7.45); ABG pO2 86 mmHg (83-108); ABG pO2 TC 86 (83-108)
[2020-12-30 05:16] LABS: Partial Thromboplastin Time 70.5 SEC (24.1-38.0)
[2020-12-30 05:30] LABS: VBG Base Excess 11.8 mmol/L; VBG HCO3 40 mmol/L (22-26); VBG pCO2 84 mmHg; VBG pH 7.29 (7.32-7.43); VBG pO2 103 mmHg
[2020-12-30 05:48] LABS: Glucose, Whole Blood 137 mg/dL (60-115)
--- NOTE | 2020-12-30 05:57 | PC.NURSE ---
has been very drowsy/somnolent. opens ou to voice. elicits occular tracking and focusing. inconsistently will follow commands. francis with extreme weakness. complexion pale. skin cool/dry. anasarca is well noted. maintained on epap mask with epap of 10 rr has been increased to 16 vt 500 fio2 60%. sao2 95-96%. breath sounds diminished throughout. speech is impossible to discern d/t noise of epap mask. heart s1s2. ecg displays sr 1 avb. she has had 2 consecutive therapeutic ptt in regard to agatroban drip. no ptt needed till tomorrow. abdomen morbidly obese/semisoft. wright catheter patent and draining keila urine 30-50 ml/hr. poc 137 at 0600.
[2020-12-30 06:03] LABS: INTERNATIONAL NORM RATIO 3.4 (0.9-1.1); Prothrombin Time 40.9 SEC (10.8-13.0)
[2020-12-30 06:15] LABS: B Type Natriuretic Peptide 306 pg/mL (<100)
[2020-12-30 06:17] LABS: Venous Blood Gas Refer to POC result
[2020-12-30 06:24] LABS: Partial Thromboplastin Time 69.7 SEC (24.1-38.0)
[2020-12-30 06:38] LABS: Anion Gap 12 (12-20); Blood Urea Nitrogen 31 mg/dL (9-16); Calcium 7.6 mg/dL (8.4-10.2); Carbon Dioxide 33 mmol/L (22-29); Chloride 102 mmol/L (96-108); Creatinine Clr Calc Pharmacy 64.3; Estimated Glomerular Filt Rate 56; Glucose Random 144 mg/dL (60-115); Magnesium 2.3 mg/dL (1.6-2.6); Phosphorus 5.4 mg/dL (2.7-4.5); Potassium 4.4 mmol/L (3.3-5.1); Sodium 143 mmol/L (135-145)
[2020-12-30] MEDS: Albuterol/Iprat 2.5/0.5MG 3 ML AMPUL.NEB INHALE ×4 (07:24→20:30)
[2020-12-30] MEDS: Famotidine/PF 20 MG/2 ML VIAL IVPUSH (08:41)
[2020-12-30] MEDS: HYDROmorphone HCl 1 MG/ML SYRINGE IVPUSH (08:50)
[2020-12-30 11:17] LABS: VBG Base Excess 10.5 mmol/L; VBG HCO3 40 mmol/L (22-26); VBG pCO2 96 mmHg; VBG pH 7.22 (7.32-7.43); VBG pO2 57 mmHg
--- NOTE | 2020-12-30 12:21 | W.PM.CCHP ---
Procedures Date of Service Date of Service: 12/30/20 Chest Tube Chest Tube 1: Chest tube location: Mid-Axillary Chest Size of tube: 14 Chest tube procedure: Yes betadine prep and sterile drapes applied Tube sutured to skin: Yes Sterile dressing applied: Yes Anesthesia: 1% Lidocaine Incision made with: #11 blade Post procedure: sutured to skin and sterile dressing applied Fuentes of air heard: No (Bloody fluid drainage) Tube Drainage: fluid Amount of initial drainage (ml): 1,000 Post procedure CXR?: Yes Patient tolerated procedure: Yes Progress: Under ultrasound guidance and percussion and after sterile preparation and draping gained easy entry to the pleural space beginning at the 6th intercostal space draining a a strongly sanguinous fluid which never clotted passed easily a a J tipped guidewire into the pleural space confirmed position by chest x-ray and repeat ultrasound and over that guidewire passed a 14 Georgian pigtail catheter which then proceeded over about an hour to drain 1 L thus far of of sanguinous fluid and there was no evidence of complication no pneumothorax still very significant residual volume probably due to multi loculation and will get a CT scan of the chest at this point
[2020-12-30 12:24] LABS: Glucose, Whole Blood 148 mg/dL (60-115)
--- NOTE | 2020-12-30 12:24 | W.PM.CCHP ---
Procedures Date of Service Date of Service: 12/30/20 Intubation Intubation Comments: After chest tube placement and drainage repeat blood gas due to persistent altered mental status indicated pCO2 95 pH 7.22 consistent with acute hypercarbic respiratory failure and following discussion with family i.e. reintubated the patient without complication utilizing 40 mg of propofol and 50 mg of rocuronium and with ultrasound guidance with glide scope sore the vocal cords easily and passed a 7.5 endotracheal tube to 25 cm at the lip and secured with good end-tidal CO2 response and good bilateral breath sounds Consent for Procedure: Elective - informed consent obtained Time out performed: Yes Sedative: propofol Mg given: 40 Paralytic: rocuronium Mg given: 50 Laryngoscope: fiber optic video scope ET tube size: 7.5 ET tube uncuffed: No Tube secured depth (cm): 25 Tube secured location: lips Tube placement confirmation: visualized tube passing through cords, equal breath sounds bilaterally, no breath sounds over epigastrium and confirmation by capnometry Patient tolerated procedure: no complications Intubation complications: none
--- NOTE | 2020-12-30 12:25 | P.PNCA_ITS ---
Subjective Subjective Date of Service: 12/30/20 Interval history: Events noted. Still in ICU. Review of Systems Review of Systems Yes unobtainable due to endotracheal tube and Unobtainable due to mental condition Physical Exam Vital Signs: Last Vital Signs Temp 99.3 F 12/30/20 12:00 Pulse 122 H 12/30/20 12:00 Resp 17 12/30/20 12:00 BP 136/52 L 12/30/20 12:00 Pulse Ox 95 12/30/20 12:00 Oxygen Flow Rate 2 12/26/20 15:00 Body Mass Index 39.2 Const General: no acute distress [facility] Other: Unremarkable Neck Neck: Yes normal visual inspection Chest Chest palpation & inspection: normal inspection of the chest Resp Auscultation: clear to auscultation bilaterally, no crackles and no wheezes Cardio Jugular venous distension: no JVD Palpation: normal PMI Heart sounds: S1 normal heart sound present, S2 normal heart sound present, no gallops, no murmurs and no rubs GI Palpation (GI): Soft to palpation Back/Spine/Pelvis Other: unremarkable Skin General skin exam: no rashes or lesions noted Extrem General: Yes no clubbing, cyanosis or edema Psych Other: intubated and cannot assess Results Labs and Meds Result diagrams: 12/29/20 19:59 12/30/20 05:20 Lab results: Laboratory Results - last 24 hr 12/29/20 12/29/20 12/29/20 13:58 17:34 19:59 WBC 16.4 H RBC 2.53 L Hgb 8.3 L Hct 26.1 L MCV 103.2 H MCH 32.8 MCHC 31.8 RDW 14.4 Plt Count 108 L MPV 10.0 Immature Gran % (Auto) 0.5 H Neut % (Auto) 92.0 H Lymph % (Auto) 1.5 L Dickens % (Auto) 5.8 Eos % (Auto) 0.1 Baso % (Auto) 0.1 Lymph # (Auto) 0.3 L Dickens # (Auto) 1.0 Eos # (Auto) 0.0 Baso # (Auto) 0.0 Abs Immat Gran (auto) 0.08 H Absolute Neuts (auto) 15.1 H Absolute Nucleated RBC 0.000 Nucleated RBC % (auto) 0.0 Smear Tech's Comments VERIFIED PT INR APTT PTT (Heparin Protocol) 50.3 L O2 Saturation ABG pH at Pt Temp ABG pH (Temp Correct) ABG pCO2 at Pt Temp ABG pCO2 (Temp Corrct ABG pO2 at Pt Temp ABG pO2 (Temp Correct ABG HCO3 ABG Base Excess (Actual) VBG pH VBG pCO2 VBG pO2 VBG HCO3 VBG O2 Saturation VBG Base Excess Sodium Potassium Chloride Carbon Dioxide Anion Gap BUN Creatinine Estim Creat Clear Calc Estimated GFR POC Glucose 112 Random Glucose Calcium Phosphorus Magnesium B-Natriuretic Peptide Blood Type Antibody Screen Direct Antiglob Test SUSANNE, Polyspecific Crossmatch 12/29/20 12/29/20 12/29/20 19:59 21:21 23:15 WBC RBC Hgb Hct MCV MCH MCHC RDW Plt Count MPV Immature Gran % (Auto) Neut % (Auto) Lymph % (Auto) Dickens % (Auto) Eos % (Auto) Baso % (Auto) Lymph # (Auto) Dickens # (Auto) Eos # (Auto) Baso # (Auto) Abs Immat Gran (auto) Absolute Neuts (auto) Absolute Nucleated RBC Nucleated RBC % (auto) Smear Tech's Comments PT INR APTT 46.5 H D PTT (Heparin Protocol) 97.8 H D O2 Saturation ABG pH at Pt Temp ABG pH (Temp Correct) ABG pCO2 at Pt Temp ABG pCO2 (Temp Corrct ABG pO2 at Pt Temp ABG pO2 (Temp Correct ABG HCO3 ABG Base Excess (Actual) VBG pH VBG pCO2 VBG pO2 VBG HCO3 VBG O2 Saturation VBG Base Excess Sodium 141 Potassium 3.6 Chloride 101 Carbon Dioxide 33 H Anion Gap 11 L BUN 26 H Creatinine 0.80 Estim Creat Clear Calc 78.7 Estimated GFR > 60 POC Glucose Random Glucose 121 H Calcium 7.7 L Phosphorus Magnesium B-Natriuretic Peptide Blood Type Antibody Screen Direct Antiglob Test SUSANNE, Polyspecific Crossmatch 12/29/20 12/30/20 12/30/20 23:27 02:30 03:02 WBC RBC Hgb Hct MCV MCH MCHC RDW Plt Count MPV Immature Gran % (Auto) Neut % (Auto) Lymph % (Auto) Dickens % (Auto) Eos % (Auto) Baso % (Auto) Lymph # (Auto) Dickens # (Auto) Eos # (Auto) Baso # (Auto) Abs Immat Gran (auto) Absolute Neuts (auto) Absolute Nucleated RBC Nucleated RBC % (auto) Smear Tech's Comments PT INR APTT 65.3 H* D PTT (Heparin Protocol) O2 Saturation 96.0 ABG pH at Pt Temp 7.23 L ABG pH (Temp Correct) 7.23 L ABG pCO2 at Pt Temp 90 H* ABG pCO2 (Temp Corrct 89 H* ABG pO2 at Pt Temp 86 ABG pO2 (Temp Correct 86 ABG HCO3 38 H ABG Base Excess (Actual) 9.0 VBG pH VBG pCO2 VBG pO2 VBG HCO3 VBG O2 Saturation VBG Base Excess Sodium Potassium Chloride Carbon Dioxide Anion Gap BUN Creatinine Estim Creat Clear Calc Estimated GFR POC Glucose 125 H Random Glucose Calcium Phosphorus Magnesium B-Natriuretic Peptide Blood Type Antibody Screen Direct Antiglob Test SUSANNE, Polyspecific Crossmatch 12/30/20 12/30/20 12/30/20 04:30 05:20 05:20 WBC RBC Hgb Hct MCV MCH MCHC RDW Plt Count MPV Immature Gran % (Auto) Neut % (Auto) Lymph % (Auto) Dickens % (Auto) Eos % (Auto) Baso % (Auto) Lymph # (Auto) Dickens # (Auto) Eos # (Auto) Baso # (Auto) Abs Immat Gran (auto) Absolute Neuts (auto) Absolute Nucleated RBC Nucleated RBC % (auto) Smear Tech's Comments PT 40.9 H D INR 3.4 H APTT 70.5 H* 69.7 H* PTT (Heparin Protocol) O2 Saturation ABG pH at Pt Temp ABG pH (Temp Correct) ABG pCO2 at Pt Temp ABG pCO2 (Temp Corrct ABG pO2 at Pt Temp ABG pO2 (Temp Correct ABG HCO3 ABG Base Excess (Actual) VBG pH VBG pCO2 VBG pO2 VBG HCO3 VBG O2 Saturation VBG Base Excess Sodium 143 Potassium 4.4 D Chloride 102 Carbon Dioxide 33 H Anion Gap 12 BUN 31 H Creatinine 0.98 Estim Creat Clear Calc 64.3 Estimated GFR 56 POC Glucose Random Glucose 144 H Calcium 7.6 L Phosphorus 5.4 H Magnesium 2.3 B-Natriuretic Peptide Blood Type Antibody Screen Direct Antiglob Test SUSANNE, Polyspecific Crossmatch 0512/30/20 12/30/20 05:20 05:24 05:45 WBC RBC Hgb Hct MCV MCH MCHC RDW Plt Count MPV Immature Gran % (Auto) Neut % (Auto) Lymph % (Auto) Dickens % (Auto) Eos % (Auto) Baso % (Auto) Lymph # (Auto) Dickens # (Auto) Eos # (Auto) Baso # (Auto) Abs Immat Gran (auto) Absolute Neuts (auto) Absolute Nucleated RBC Nucleated RBC % (auto) Smear Tech's Comments PT INR APTT PTT (Heparin Protocol) O2 Saturation ABG pH at Pt Temp ABG pH (Temp Correct) ABG pCO2 at Pt Temp ABG pCO2 (Temp Corrct ABG pO2 at Pt Temp ABG pO2 (Temp Correct ABG HCO3 ABG Base Excess (Actual) VBG pH 7.29 L VBG pCO2 84 VBG pO2 103 VBG HCO3 40 H VBG O2 Saturation 97.0 VBG Base Excess 11.8 Sodium Potassium Chloride Carbon Dioxide Anion Gap BUN Creatinine Estim Creat Clear Calc Estimated GFR POC Glucose 137 H Random Glucose Calcium Phosphorus Magnesium B-Natriuretic Peptide 306 H Blood Type Antibody Screen Direct Antiglob Test SUSANNE, Polyspecific Crossmatch 12/30/20 12/30/20 12/30/20 06:20 09:15 11:11 WBC RBC Hgb Hct MCV MCH MCHC RDW Plt Count MPV Immature Gran % (Auto) Neut % (Auto) Lymph % (Auto) Dickens % (Auto) Eos % (Auto) Baso % (Auto) Lymph # (Auto) Dickens # (Auto) Eos # (Auto) Baso # (Auto) Abs Immat Gran (auto) Absolute Neuts (auto) Absolute Nucleated RBC Nucleated RBC % (auto) Smear Tech's Comments PT INR APTT PTT (Heparin Protocol) O2 Saturation ABG pH at Pt Temp ABG pH (Temp Correct) ABG pCO2 at Pt Temp ABG pCO2 (Temp Corrct ABG pO2 at Pt Temp ABG pO2 (Temp Correct ABG HCO3 ABG Base Excess (Actual) VBG pH 7.22 L VBG pCO2 96 VBG pO2 57 VBG HCO3 40 H VBG O2 Saturation 83.0 VBG Base Excess 10.5 Sodium Potassium Chloride Carbon Dioxide Anion Gap BUN Creatinine Estim Creat Clear Calc Estimated GFR POC Glucose Random Glucose Calcium Phosphorus Magnesium B-Natriuretic Peptide Blood Type O Positive Antibody Screen NEGATIVE Direct Antiglob Test NEGATIVE SUSANNE, Polyspecific NEGATIVE Crossmatch See Detail 12/30/20 12:17 WBC RBC Hgb Hct MCV MCH MCHC RDW Plt Count MPV Immature Gran % (Auto) Neut % (Auto) Lymph % (Auto) Dickens % (Auto) Eos % (Auto) Baso % (Auto) Lymph # (Auto) Dickens # (Auto) Eos # (Auto) Baso # (Auto) Abs Immat Gran (auto) Absolute Neuts (auto) Absolute Nucleated RBC Nucleated RBC % (auto) Smear Tech's Comments PT INR APTT PTT (Heparin Protocol) O2 Saturation ABG pH at Pt Temp ABG pH (Temp Correct) ABG pCO2 at Pt Temp ABG pCO2 (Temp Corrct ABG pO2 at Pt Temp ABG pO2 (Temp Correct ABG HCO3 ABG Base Excess (Actual) VBG pH VBG pCO2 VBG pO2 VBG HCO3 VBG O2 Saturation VBG Base Excess Sodium Potassium Chloride Carbon Dioxide Anion Gap BUN Creatinine Estim Creat Clear Calc Estimated GFR POC Glucose 148 H Random Glucose Calcium Phosphorus Magnesium B-Natriuretic Peptide Blood Type Antibody Screen Direct Antiglob Test SUSANNE, Polyspecific Crossmatch Imaging Radiologist's impression: Impressions Chest X-Ray 12/30/20 06:35 IMPRESSION: Increased moderate to large right pleural effusion with diffuse airspace opacity. Increased patchy left lung opacities. This could represent multifocal pneumonia or edema. Chest X-Ray 12/30/20 09:56 IMPRESSION: New tube projects over right lung base. No pneumothorax seen. Chest X-Ray 12/30/20 11:04 IMPRESSION: Large bore chest catheter tip lies at the level just below the hilum. There is large right pleural effusion seen. No change in left central venous catheter, mild cardiomegaly and patchy opacity in the left upper and midlung regions. Progress Note: A&P Assessment and plan (1) Cardiac arrest: Status: Acute (2) Heart failure with preserved ejection fraction: Status: Acute (3) PAF (paroxysmal atrial fibrillation): Status: Acute Assessment and Plan: Events of cardiac arrest noted as well as the strips. It appears that she was in atrial fibrillation with slow rate which was followed by ventricular fibrillation and she was then resuscitated. Initial trigger could have been hypoxia/respiratory failure. Off flecainide. Current rhythm is sinus. Continue Amiodarone. When able, switch to PO. If she again gets bradycardic, then need to discuss about pacemaker placement. High sensitivity troponins are elevated but that is most likely from the acute arrest situation. At some point, may consider cardiac catheterization for ischemia evaluation. Ventilator management/ICU care per bariatric coordinator. Will follow up with you. Fall Risk Details Current Medications: Current Medications Generic Name Dose Route Start Last Admin Trade Name Freq PRN Reason Stop Dose Admin Albuterol/Ipratropium 3 ml 12/28/20 20:00 12/30/20 11:27 Albuterol/Iprat 2.5/0.5mg 3 Ml Ampul.Neb INHALE 3 ml RQ4H WHILE AWAKE DEE Administration Famotidine 20 mg 12/29/20 09:00 12/30/20 08:41 Famotidine/Pf 20 Mg/2 Ml Vial IVPUSH 20 mg DAILY DEE Administration Amiodarone HCl 900 mg/ Sodium 518 mls @ 17.267 mls/hr 12/28/20 10:30 12/30/20 09:05 Chloride IVCONT 0 mg/min .Q24H DEE 0 mls/hr Infusion Protocol 0.5 MG/MIN Norepinephrine Bitartrate 8 mg in 250 mls @ 0 mls/hr 12/28/20 17:30 12/30/20 09:38 Levophed IVCONT 0.07 mcg/kg/min .Q0M DEE 14.47 mls/hr Titration Protocol Per Protocol Argatroban 250 mg/ Sodium 252.5 mls @ 6.68 mls/hr 12/29/20 23:56 12/30/20 06:50 Chloride IV 0 mcg/kg/min .Q24H DEE 0 mls/hr Infusion 1 MCG/KG/MIN Potassium Chloride 20 meq/ 1,010 mls @ 42 mls/hr 12/30/20 08:00 12/30/20 08:2 4 Lactated Ringer's IVCONT 42 mls/hr .Q24H DEE Administration Propofol 1,000 mg in 100 mls @ 0 mls/hr 12/30/20 12:15 Diprivan IVCONT .Q0M DEE Protocol Per Protocol Insulin Human Lispro 0 unit 12/28/20 12:00 12/30/20 06:41 Insulin Lispro 100 Unit/Ml 3 Ml Vial SUBCUT Not Given Q6H [facility] Protocol Sodium Chloride 3 ml 12/14/20 00:00 12/30/20 08:24 0.9 % Sodium Chloride Flush 3 Ml Syringe IVFLUSH 3 ml QSHIFT DEE Administration Time Spent With Patient Time: Total time spent is greater than 50% in coordination of care (as documented) at patient's floor/unit and/or counseling patient: Time with patient: less than 15 minutes Procedures Date of Service Date of Service: 12/30/20
[2020-12-30 12:45] LABS: Hematocrit 23.4 % (37-47); Hemoglobin 7.2 g/dl (12.0-16.0)
[2020-12-30] MEDS: Lidocaine HCl 2 % 20 ML VIAL 5 ML INFILTRATI (12:48)
[2020-12-30] MEDS: Rocuronium Bromide 50 MG/5 ML VIAL IVPUSH (12:48)
[2020-12-30] MEDS: propofoL 1,000 MG/100 ML VIAL 13.23 MG IVCONT ×2 (12:49→16:28)
--- NOTE | 2020-12-30 13:13 | MHC.CM.PN ---
Pt required re intubation for elevated CO2 following a brief trial off of ventilatory support. Pt also has a chest tube with bloody drainage noted: Pts initial d/c plan was for a transfer to [facility] - clinical updates remitted: Pt remains critical at this time with no clear indication for d/c. Dtrs in to visit: CM to follow for d/c planning
--- NOTE | 2020-12-30 13:41 | MHC.SLORD ---
Speech Language Pathology Order Status: Patient was re-intubated this morning. Bedside dysphagia evaluation pending 24-48 hours post-extubation. Please re-refer when appropriate.
[2020-12-30 13:54] LABS: Venous Blood Gas Refer to POC result
[2020-12-30] MEDS: Digoxin 0.5 MG/2 ML AMPUL IVPUSH (14:38)
[2020-12-30 15:27] LABS: Basophils Percent Auto 0.1 % (0-2); Hematocrit 21.2 % (37-47); Imm Gran Abs Auto 0.15 X10*3/uL (0.00-0.03); Imm Gran Pct Auto 0.7 % (0.0-0.4); Lymphocytes Absolute Auto 0.3 X10*3/uL (1.2-4.9); Lymphocytes Percent Auto 1.2 % (20-40); MANUAL DIFF FLAG SCAN; Mean Corpuscular HGB Conc 31.1 g/dl (31.0-35.0); Mean Corpuscular Hemoglobin 32.5 pg (27.0-33.0); Mean Corpuscular Volume 104.4 fL (80-98); Mean Platelet Volume 10.5 fL (9.4-12.3); Monocytes Absolute Auto 1.1 X10*3/uL (0.1-1.2); Monocytes Percent Auto 5.3 % (2-11); Neutrophils Absolute Auto 19.2 X10*3/uL (2.0-8.3); Neutrophils Percent Auto 92.7 % (45-73); Platelet Count 131 X10*3/uL (160-400); Red Blood Count 2.03 X10*6/uL (4.20-5.50); Red Cell Distribution Width 14.5 % (11.0-16.0); SCAN SMEAR FLAG 1; White Blood Count 20.7 X10*3/uL (4.8-10.8)
[2020-12-30 15:33] LABS: Fibrinogen 615 MG/DL (259-690); INTERNATIONAL NORM RATIO 2.4 (0.9-1.1); Prothrombin Time 29.3 SEC (10.8-13.0)
[2020-12-30 15:36] LABS: Partial Thromboplastin Time 41.5 SEC (24.1-38.0)
[2020-12-30 15:42] LABS: Hemoglobin 6.6 g/dl (12.0-16.0)
[2020-12-30 15:54] LABS: SLIDE REVIEW VERIFIED
--- NOTE | 2020-12-30 16:03 | PM.CNGS ---
History of Present Illness Consult details Consult date: 12/30/20 Reason for consult: other Narrative: Patient is a 75-year-old female with a past medical history of type 2 diabetes, morbid obesity, COPD, CHF atrial fibrillation on home regimen of Eliquis was admitted with weakness and probable acute on chronic diastolic heart failure. On 12/27/2020 patient became altered with combined hypoxic and hypercarbic respiratory failure, then became bradycardic and shown to have PEA arrest requiring 10 minutes resuscitation and 2 rounds of epinephrine. Subsequently intubated and noted to have several rib fractures from the event. Patient was ultimately extubated and then reintubated yesterday for once again hypercarbic respiratory failure. During her admission her Eliquis had been put on hold and was switched to low molecular weight heparin which was DC'd due to heparin-induced thrombocytopenia. Patient was then placed on argatroban last night which was placed on hold this morning prior to right-sided chest tube insertion which was inserted at 9:30 AM for a large large right-sided hemothorax which is presumed to be pulmonary contusions due to the trauma she sustained to the chest during CPR. Patient's hemoglobin is now 6.6 with an INR of 2.4 and is receiving reversal agents along with blood products. Since chest tube insertion at 9:30 AM and as of 3 PM this afternoon patient has put out approximately just over 2 L of dark red hemorrhagic fluid, BP remained stable at 166/55. Patient remains intubated oxygen saturations in the upper nineties. 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 If so, by whom?: No Do you feel safe in your current relationship?: No Current Relationship Is there a partner from a previous relationship who is making you feel unsafe now?: No Are you made to feel afraid or neglected: No Are you DNR?: No Advance Directives: No Advance Directives Information Provided: No Do you have thoughts of harming others: None Do you have a plan to hurt others: No Plan Recently lost weight without trying: No Eating poorly because of decreased appetite: No Nutrition Risks: No Nutritional Risk service: No Current occupational status: disabled Meds Allergies Allergy/AdvReac Type Severity Reaction Status Date / Time SEASONAL ALLERGIES Allergy Unknown SNEEZING Uncoded 04/23/20 15:17 RUNNY NOSE Active Medications: Current Medications Generic Name Dose Route Start Last Admin Trade Name Freq PRN Reason Stop Dose Admin Albuterol/Ipratropium 3 ml 12/28/20 20:00 12/30/20 15:24 Albuterol/Iprat 2.5/0.5mg 3 Ml Ampul.Neb INHALE 3 ml RQ4H WHILE AWAKE DEE Administration Famotidine 20 mg 12/29/20 09:00 12/30/20 08:41 Famotidine/Pf 20 Mg/2 Ml Vial IVPUSH 20 mg DAILY DEE Administration Amiodarone HCl 900 mg/ Sodium 518 mls @ 17.267 mls/hr 12/28/20 10:30 12/30/20 14:40 Chloride IVCONT 0.5 mg/min .Q24H DEE 17.27 mls/hr Infusion Protocol 0.5 MG/MIN Norepinephrine Bitartrate 8 mg in 250 mls @ 0 mls/hr 12/28/20 17:30 12/30/20 15:33 Levophed IVCONT 0.04 mcg/kg/min .Q0M DEE 8.27 mls/hr Titration Protocol Per Protocol Argatroban 250 mg/ Sodium 252.5 mls @ 6.68 mls/hr 12/29/20 23:56 12/30/20 06:50 Chloride IV 0 mcg/kg/min .Q24H DEE 0 mls/hr Infusion 1 MCG/KG/MIN Potassium Chloride 20 meq/ 1,010 mls @ 42 mls/hr 12/30/20 08:00 12/30/20 08:24 Lactated Ringer's IVCONT 42 mls/hr .Q24H DEE Administration Propofol 1,000 mg in 100 mls @ 0 mls/hr 12/30/20 12:15 12/30/20 12:49 Diprivan IVCONT 20 mcg/kg/min .Q0M DEE 13.23 mls/hr Administration Protocol Per Protocol Insulin Human Lispro 0 unit 12/28/20 12:00 12/30/20 12:48 Insulin Lispro 100 Unit/Ml 3 Ml Vial SUBCUT Not Given Q6H DEE Protocol Sodium Chloride 3 ml 12/14/20 00:00 12/30/20 15:34 0.9 % Sodium Chloride Flush 3 Ml Syringe IVFLUSH 3 ml QSHIFT DEE Administration Home Medications Medication Instructions Recorded Confirmed Last Taken Type lorazepam 1 tab PO BID PRN 11/18/20 12/13/20 Unknown History omeprazole 1 cap PO BID 11/18/20 12/13/20 Unknown History simvastatin 1 tab PO DAILY 11/18/20 12/13/20 Unknown History Physical Exam Vital Signs: Vital Signs: Last Vital Signs Temp 100.0 F 12/30/20 15:14 Pulse 125 H 12/30/20 15:30 Resp 18 12/30/20 15:14 BP 125/51 L 12/30/20 15:14 Pulse Ox 100 12/30/20 15:00 Oxygen Flow Rate 2 12/26/20 15:00 Body Mass Index 39.2 Const: Other: Intubated and sedated HENMT: Head: Yes normal to inspection Eyes: General: appearance normal, both eyes and all related structures Neck: Neck: Yes trachea midline and Yes no JVD Chest: Other: Resp: Other: BS are diminished along right,clear on left. Right-sided pigtail catheter remains indwelling and secure with dressing clean dry and intact. Chest tube is attached to atrium reservoir on -20 LWS. As of 3 PM 2 L of dark red hemorrhagic fluid output is present with no detectable air leak. Cardio: Rate: tachycardic Rhythm: abnormal rhythm (Irregular) Heart sounds: S1 normal heart sound present and S2 normal heart sound present GI: Other: Soft to palpation with no distention. Inspection: Yes obesity Auscultation: normal bowel sounds Results Labs Result diagrams: 01/01/21 06:07 01/01/21 05:00 Labs: Abnormal lab results 05/25/21 05/25/21 05/25/21 Range/Units 19:59 19:59 21:21 WBC 16.4 H (4.8-10.8) X10*3/uL RBC 2.53 L (4.20-5.50) X10*6/uL Hgb 8.3 L (12.0-16.0) g/dl Hct 26.1 L (37-47) % MCV 103.2 H (80-98) fL Plt Count 108 L (160-400) X10*3/uL Immature Gran % (Auto) 0.5 H (0.0-0.4) % Neut % (Auto) 92.0 H (45-73) % Lymph % (Auto) 1.5 L (20-40) % Lymph # (Auto) 0.3 L (1.2-4.9) X10*3/uL Abs Immat Gran (auto) 0.08 H (0.00-0.03) X10*3/uL Absolute Neuts (auto) 15.1 H (2.0-8.3) X10*3/uL PT (10.8-13.0) SEC INR (0.9-1.1) APTT (24.1-38.0) SEC PTT (Heparin Protocol) 97.8 H D (53-77.9) SEC ABG pH at Pt Temp (7.35-7.45) ABG pH (Temp Correct) (7.35-7.45) ABG pCO2 at Pt Temp (32-45) mmHg ABG pCO2 (Temp Corrct (32-45) mmHg ABG HCO3 (22-26) mmol/L VBG pH (7.32-7.43) VBG HCO3 (22-26) mmol/L Carbon Dioxide 33 H (22-29) mmol/L Anion Gap 11 L (12-20) BUN 26 H (9-16) mg/dL POC Glucose (60-115) mg/dL Random Glucose 121 H (60-115) mg/dL Calcium 7.7 L (8.4-10.2) mg/dL Phosphorus (2.7-4.5) mg/dL B-Natriuretic Peptide (<100) pg/mL Crossmatch 12/29/20 12/29/20 12/30/20 Range/Units 23:15 23:27 02:30 WBC (4.8-10.8) X10*3/uL RBC (4.20-5.50) X10*6/uL Hgb (12.0-16.0) g/dl Hct (37-47) % MCV (80-98) fL Plt Count (160-400) X10*3/uL Immature Gran % (Auto) (0.0-0.4) % Neut % (Auto) (45-73) % Lymph % (Auto) (20-40) % Lymph # (Auto) (1.2-4.9) X10*3/uL Abs Immat Gran (auto) (0.00-0.03) X10*3/uL Absolute Neuts (auto) (2.0-8.3) X10*3/uL PT (10.8-13.0) SEC INR (0.9-1.1) APTT 46.5 H D 65.3 H* D (24.1-38.0) SEC PTT (Heparin Protocol) (53-77.9) SEC ABG pH at Pt Temp (7.35-7.45) ABG pH (Temp Correct) (7.35-7.45) ABG pCO2 at Pt Temp (32-45) mmHg ABG pCO2 (Temp Corrct (32-45) mmHg ABG HCO3 (22-26) mmol/L VBG pH (7.32-7.43) VBG HCO3 (22-26) mmol/L Carbon Dioxide (22-29) mmol/L Anion Gap (12-20) BUN (9-16) mg/dL POC Glucose 125 H (60-115) mg/dL Random Glucose (60-115) mg/dL Calcium (8.4-10.2) mg/dL Phosphorus (2.7-4.5) mg/dL B-Natriuretic Peptide (<100) pg/mL Crossmatch 12/30/20 12/30/20 12/30/20 Range/Units 03:02 04:30 05:20 WBC (4.8-10.8) X10*3/uL RBC (4.20-5.50) X10*6/uL Hgb (12.0-16.0) g/dl Hct (37-47) % MCV (80-98) fL Plt Count (160-400) X10*3/uL Immature Gran % (Auto) (0.0-0.4) % Neut % (Auto) (45-73) % Lymph % (Auto) (20-40) % Lymph # (Auto) (1.2-4.9) X10*3/uL Abs Immat Gran (auto) (0.00-0.03) X10*3/uL Absolute Neuts (auto) (2.0-8.3) X10*3/uL PT 40.9 H D (10.8-13.0) SEC INR 3.4 H (0.9-1.1) APTT 70.5 H* 69.7 H* (24.1-38.0) SEC PTT (Heparin Protocol) (53-77.9) SEC ABG pH at Pt Temp 7.23 L (7.35-7.45) ABG pH (Temp Correct) 7.23 L (7.35-7.45) ABG pCO2 at Pt Temp 90 H* (32-45) mmHg ABG pCO2 (Temp Corrct 89 H* (32-45) mmHg ABG HCO3 38 H (22-26) mmol/L VBG pH (7.32-7.43) VBG HCO3 (22-26) mmol/L Carbon Dioxide (22-29) mmol/L Anion Gap (12-20) BUN (9-16) mg/dL POC Glucose (60-115) mg/dL Random Glucose (60-115) mg/dL Calcium (8.4-10.2) mg/dL Phosphorus (2.7-4.5) mg/dL B-Natriuretic Peptide (<100) pg/mL Crossmatch 12/30/20 12/30/20 12/30/20 Range/Units 05:20 05:20 05:24 WBC (4.8-10.8) X10*3/uL RBC (4.20-5.50) X10*6/uL Hgb (12.0-16.0) g/dl Hct (37-47) % MCV (80-98) fL Plt Count (160-400) X10*3/uL Immature Gran % (Auto) (0.0-0.4) % Neut % (Auto) (45-73) % Lymph % (Auto) (20-40) % Lymph # (Auto) (1.2-4.9) X10*3/uL Abs Immat Gran (auto) (0.00-0.03) X10*3/uL Absolute Neuts (auto) (2.0-8.3) X10*3/uL PT (10.8-13.0) SEC INR (0.9-1.1) APTT (24.1-38.0) SEC PTT (Heparin Protocol) (53-77.9) SEC ABG pH at Pt Temp (7.35-7.45) ABG pH (Temp Correct) (7.35-7.45) ABG pCO2 at Pt Temp (32-45) mmHg ABG pCO2 (Temp Corrct (32-45) mmHg ABG HCO3 (22-26) mmol/L VBG pH 7.29 L (7.32-7.43) VBG HCO3 40 H (22-26) mmol/L Carbon Dioxide 33 H (22-29) mmol/L Anion Gap (12-20) BUN 31 H (9-16) mg/dL POC Glucose (60-115) mg/dL Random Glucose 144 H (60-115) mg/dL Calcium 7.6 L (8.4-10.2) mg/dL Phosphorus 5.4 H (2.7-4.5) mg/dL B-Natriuretic Peptide 306 H (<100) pg/mL Crossmatch 12/30/20 12/30/20 12/30/20 Range/Units 05:45 09:15 11:11 WBC (4.8-10.8) X10*3/uL RBC (4.20-5.50) X10*6/uL Hgb (12.0-16.0) g/dl Hct (37-47) % MCV (80-98) fL Plt Count (160-400) X10*3/uL Immature Gran % (Auto) (0.0-0.4) % Neut % (Auto) (45-73) % Lymph % (Auto) (20-40) % Lymph # (Auto) (1.2-4.9) X10*3/uL Abs Immat Gran (auto) (0.00-0.03) X10*3/uL Absolute Neuts (auto) (2.0-8.3) X10*3/uL PT (10.8-13.0) SEC INR (0.9-1.1) APTT (24.1-38.0) SEC PTT (Heparin Protocol) (53-77.9) SEC ABG pH at Pt Temp (7.35-7.45) ABG pH (Temp Correct) (7.35-7.45) ABG pCO2 at Pt Temp (32-45) mmHg ABG pCO2 (Temp Corrct (32-45) mmHg ABG HCO3 (22-26) mmol/L VBG pH 7.22 L (7.32-7.43) VBG HCO3 40 H (22-26) mmol/L Carbon Dioxide (22-29) mmol/L Anion Gap (12-20) BUN (9-16) mg/dL POC Glucose 137 H (60-115) mg/dL Random Glucose (60-115) mg/dL Calcium (8.4-10.2) mg/dL Phosphorus (2.7-4.5) mg/dL B-Natriuretic Peptide (<100) pg/mL Crossmatch See Detail 12/30/20 12/30/20 12/30/20 Range/Units 12:17 12:35 15:19 WBC 20.7 H (4.8-10.8) X10*3/uL RBC 2.03 L (4.20-5.50) X10*6/uL Hgb 7.2 L 6.6 L* (12.0-16.0) g/dl Hct 23.4 L 21.2 L (37-47) % MCV 104.4 H (80-98) fL Plt Count 131 L (160-400) X10*3/uL Immature Gran % (Auto) 0.7 H (0.0-0.4) % Neut % (Auto) 92.7 H (45-73) % Lymph % (Auto) 1.2 L (20-40) % Lymph # (Auto) 0.3 L (1.2-4.9) X10*3/uL Abs Immat Gran (auto) 0.15 H (0.00-0.03) X10*3/uL Absolute Neuts (auto) 19.2 H (2.0-8.3) X10*3/uL PT (10.8-13.0) SEC INR (0.9-1.1) APTT (24.1-38.0) SEC PTT (Heparin Protocol) (53-77.9) SEC ABG pH at Pt Temp (7.35-7.45) ABG pH (Temp Correct) (7.35-7.45) ABG pCO2 at Pt Temp (32-45) mmHg ABG pCO2 (Temp Corrct (32-45) mmHg ABG HCO3 (22-26) mmol/L VBG pH (7.32-7.43) VBG HCO3 (22-26) mmol/L Carbon Dioxide (22-29) mmol/L Anion Gap (12-20) BUN (9-16) mg/dL POC Glucose 148 H (60-115) mg/dL Random Glucose (60-115) mg/dL Calcium (8.4-10.2) mg/dL Phosphorus (2.7-4.5) mg/dL B-Natriuretic Peptide (<100) pg/mL Crossmatch 12/30/20 Range/Units 15:19 WBC (4.8-10.8) X10*3/uL RBC (4.20-5.50) X10*6/uL Hgb (12.0-16.0) g/dl Hct (37-47) % MCV (80-98) fL Plt Count (160-400) X10*3/uL Immature Gran % (Auto) (0.0-0.4) % Neut % (Auto) (45-73) % Lymph % (Auto) (20-40) % Lymph # (Auto) (1.2-4.9) X10*3/uL Abs Immat Gran (auto) (0.00-0.03) X10*3/uL Absolute Neuts (auto) (2.0-8.3) X10*3/uL PT 29.3 H D (10.8-13.0) SEC INR 2.4 H (0.9-1.1) APTT 41.5 H D (24.1-38.0) SEC PTT (Heparin Protocol) (53-77.9) SEC ABG pH at Pt Temp (7.35-7.45) ABG pH (Temp Correct) (7.35-7.45) ABG pCO2 at Pt Temp (32-45) mmHg ABG pCO2 (Temp Corrct (32-45) mmHg ABG HCO3 (22-26) mmol/L VBG pH (7.32-7.43) VBG HCO3 (22-26) mmol/L Carbon Dioxide (22-29) mmol/L Anion Gap (12-20) BUN (9-16) mg/dL POC Glucose (60-115) mg/dL Random Glucose (60-115) mg/dL Calcium (8.4-10.2) mg/dL Phosphorus (2.7-4.5) mg/dL B-Natriuretic Peptide (<100) pg/mL Crossmatch Short CBC 12/29/20 12/30/20 12/30/20 Range/Units 19:59 12:35 15:19 WBC 16.4 H 20.7 H (4.8-10.8) X10*3/uL Hgb 8.3 L 7.2 L 6.6 L* (12.0-16.0) g/dl Hct 26.1 L 23.4 L 21.2 L (37-47) % Plt Count 108 L 131 L (160-400) X10*3/uL BMP 12/29/20 12/30/20 19:59 05:20 Sodium 141 143 Potassium 3.6 4.4 D Chloride 101 102 Carbon Dioxide 33 H 33 H BUN 26 H 31 H Creatinine 0.80 0.98 Calcium 7.7 L 7.6 L Urine 12/13/20 12/27/20 Range/Units 12:33 17:56 Urine Color YELLOW YELLOW Urine Appearance CLEAR HAZY Urine pH 6.0 7.0 (5.0-8.0) Ur Specific [place] >= 1.030 H 1.010 (1.005-1.025) Urine Protein TRACE 3+ H (NEG-TRACE) MG/DL Urine Glucose (UA) NEG NEG (NEG) MG/DL All other labs normal. Assessment and Plan (1) Hemothorax on right: Status: Acute 5-year-old female with a past medical history of type 2 diabetes, morbid obesity, COPD, CHF, atrial fibrillation with a home regimen of Eliquis who was admitted with weakness and probable acute on chronic diastolic heart failure. Subsequently undergoing a PEA arrest which resulted in trauma to the chest cavity with left-sided rib fractures and right-sided hemothorax requiring chest tube insertion which is put out 2 L thus far of dark red hemorrhagic fluid. Hemoglobin 6.6 with an INR of 2.4 currently receiving blood products and reversal agents. Labs to be repeated at 6 PM. Once patient is fully reversed, will reassess chest tube and repeat chest xray. If bleed does not stop chest tube outputs remain high patient will require exploratory thoracotomy which would be planned for some point tomorrow. Nursing should record chest tube outputs along with color and appearance q 4hrs. Chest tube should remain on -20 LWS. Please contact Thoracic surgery should pt decompensate any further. Procedures Date of Service Date of Service: 12/31/20
--- NOTE | 2020-12-30 16:56 | PM.CCPN ---
Subjective Subjective Date of Service: 12/30/20 Critical Care Time (minutes): 120 Comment: 75-year-old female extubated yesterday following and intubation during 810 minutes CPR with chest compression and chest wall trauma with several rib fractures mostly left side possibly lesser so on the right side but will with a chest x-ray increasing right-sided pleural effusion which we did because of a climbing pCO2 with acute respiratory acidosis on BiPAP and diminishing mental status and as explained to the family required urgent intubation which went without complication stabilizing oxygen saturation and end-tidal CO2 leading to compensation and all anticoagulation was stopped because of growing effusion and the need a due to respiratory distress to remove that fluid and that was done 1st locating ARDS our spot in the mid axillary line 6th intercostal space on the right side needle entry superior portion of that 6th rib which I felt under the needle and the the blood in the syringe looked like very densely sanguinous fluid but serosanguineous without difficulty passed a J tipped guidewire over that a 14 [place] pigtail catheter and we subsequently drained over the course of several hours 2 L of sanguinous fluid and we had gradual improvement in the co iatrogenic coagulopathy at but hemoglobin continue to drop yesterday 9.6 today 8.4 than 7.2 and then 6.6 and 2 units of red blood cells ordered and 1 unit of fresh frozen plasma and we will do 1 unit of cryoprecipitate as well and currently patient is awake 120 systolic blood pressure on arterial line she had reconverted to atrial fibrillation with modest heart rate of 116 on amiodarone drip as well as 1 dose of digoxin 0.5 mg As the iatrogenic coagulopathy improved by the numbers the drainage rate from the chest tube slow down hemoglobin stabilized after the 2 units with hemoglobin levels in the low 8 range and hemodynamically she did well but did spontaneously revert to atrial fibrillation but urine output was well maintained CVP he has remained between 8 and 10 and feedings were started patient was was awake with well maintained mental status doing well on propofol with minimal Levophed support and repeat chest x-ray after 2 L of drainage showed a beautifully re-expanded lung and a great deal of improvement over the morning Physical Exam Vital Signs: Vital Signs: Last Vital Signs Temp 100.0 F 12/30/20 16: Pulse 132 H 12/30/20 16:26 Resp 18 12/30/20 16:26 BP 166/55 H 12/30/20 16:34 Pulse Ox 100 12/30/20 16:00 Oxygen Flow Rate 2 12/26/20 15:00 Body Mass Index 39.2 Const: Other: Her physical exam showed that she was neurologically intact with good cognitive function Good bilateral carotid upstrokes no bruits and basically bedside echo with normal right and left heart function and no primary valve or pericardial disease Chest x-ray of course showed markedly enlarged pleural effusion with simultaneous drop in hemoglobin and certainly consistent with his hemo thorax and that was confirmed after thoracentesis and placement of pigtail chest tube was performed Abdomen benign soft with no tenderness no organomegaly Objective Data Labs CBC & Chem 7: 12/31/20 05:10 12/31/20 05:10 Labs: Laboratory Results - last 24 hr 12/29/20 12/29/20 12/29/20 17:34 19:59 19:59 WBC 16.4 H RBC 2.53 L Hgb 8.3 L Hct 26.1 L MCV 103.2 H MCH 32.8 MCHC 31.8 RDW 14.4 Plt Count 108 L MPV 10.0 Immature Gran % (Auto) 0.5 H Neut % (Auto) 92.0 H Lymph % (Auto) 1.5 L [place] % (Auto) 5.8 Eos % (Auto) 0.1 Baso % (Auto) 0.1 Lymph # (Auto) 0.3 L [place] # (Auto) 1.0 Eos # (Auto) 0.0 Baso # (Auto) 0.0 Abs Immat Gran (auto) 0.08 H Absolute Neuts (auto) 15.1 H Absolute Nucleated RBC 0.000 Nucleated RBC % (auto) 0.0 Smear Tech's Comments VERIFIED PT INR APTT PTT (Heparin Protocol) Fibrinogen O2 Saturation ABG pH at Pt Temp ABG pH (Temp Correct) ABG pCO2 at Pt Temp ABG pCO2 (Temp Corrct ABG pO2 at Pt Temp ABG pO2 (Temp Correct ABG HCO3 ABG Base Excess (Actual) VBG pH VBG pCO2 VBG pO2 VBG HCO3 VBG O2 Saturation VBG Base Excess Sodium 141 Potassium 3.6 Chloride 101 Carbon Dioxide 33 H Anion Gap 11 L BUN 26 H Creatinine 0.80 Estim Creat Clear Calc 78.7 Estimated GFR > 60 POC Glucose 112 Random Glucose 121 H Calcium 7.7 L Phosphorus Magnesium B-Natriuretic Peptide Blood Type Antibody Screen Direct Antiglob Test SUSANNE, Polyspecific Crossmatch 12/29/20 12/29/20 12/29/20 21:21 23:15 23:27 WBC RBC Hgb Hct MCV MCH MCHC RDW Plt Count MPV Immature Gran % (Auto) Neut % (Auto) Lymph % (Auto) [place] % (Auto) Eos % (Auto) Baso % (Auto) Lymph # (Auto) [place] # (Auto) Eos # (Auto) Baso # (Auto) Abs Immat Gran (auto) Absolute Neuts (auto) Absolute Nucleated RBC Nucleated RBC % (auto) Smear Tech's Comments PT INR APTT 46.5 H D PTT (Heparin Protocol) 97.8 H D Fibrinogen O2 Saturation ABG pH at Pt Temp ABG pH (Temp Correct) ABG pCO2 at Pt Temp ABG pCO2 (Temp Corrct ABG pO2 at Pt Temp ABG pO2 (Temp Correct ABG HCO3 ABG Base Excess (Actual) VBG pH VBG pCO2 VBG pO2 VBG HCO3 VBG O2 Saturation VBG Base Excess Sodium Potassium Chloride Carbon Dioxide Anion Gap BUN Creatinine Estim Creat Clear Calc Estimated GFR POC Glucose 125 H Random Glucose Calcium Phosphorus Magnesium B-Natriuretic Peptide Blood Type Antibody Screen Direct Antiglob Test SUSANNE, Polyspecific Crossmatch 12/30/20 12/30/20 12/30/20 02:30 03:02 04:30 WBC RBC Hgb Hct MCV MCH MCHC RDW Plt Count MPV Immature Gran % (Auto) Neut % (Auto) Lymph % (Auto) [place] % (Auto) Eos % (Auto) Baso % (Auto) Lymph # (Auto) [place] # (Auto) Eos # (Auto) Baso # (Auto) Abs Immat Gran (auto) Absolute Neuts (auto) Absolute Nucleated RBC Nucleated RBC % (auto) Smear Tech's Comments PT INR APTT 65.3 H* D 70.5 H* PTT (Heparin Protocol) Fibrinogen O2 Saturation 96.0 ABG pH at Pt Temp 7.23 L ABG pH (Temp Correct) 7.23 L ABG pCO2 at Pt Temp 90 H* ABG pCO2 (Temp Corrct 89 H* ABG pO2 at Pt Temp 86 ABG pO2 (Temp Correct 86 ABG HCO3 38 H ABG Base Excess (Actual) 9.0 VBG pH VBG pCO2 VBG pO2 VBG HCO3 VBG O2 Saturation VBG Base Excess Sodium Potassium Chloride Carbon Dioxide Anion Gap BUN Creatinine Estim Creat Clear Calc Estimated GFR POC Glucose Random Glucose Calcium Phosphorus Magnesium B-Natriuretic Peptide Blood Type Antibody Screen Direct Antiglob Test SUSANNE, Polyspecific Crossmatch 12/30/20 12/30/20 12/30/20 05:20 05:20 05:20 WBC RBC Hgb Hct MCV MCH MCHC RDW Plt Count MPV Immature Gran % (Auto) Neut % (Auto) Lymph % (Auto) [place] % (Auto) Eos % (Auto) Baso % (Auto) Lymph # (Auto) [place] # (Auto) Eos # (Auto) Baso # (Auto) Abs Immat Gran (auto) Absolute Neuts (auto) Absolute Nucleated RBC Nucleated RBC % (auto) Smear Tech's Comments PT 40.9 H D INR 3.4 H APTT 69.7 H* PTT (Heparin Protocol) Fibrinogen O2 Saturation ABG pH at Pt Temp ABG pH (Temp Correct) ABG pCO2 at Pt Temp ABG pCO2 (Temp Corrct ABG pO2 at Pt Temp ABG pO2 (Temp Correct ABG HCO3 ABG Base Excess (Actual) VBG pH VBG pCO2 VBG pO2 VBG HCO3 VBG O2 Saturation VBG Base Excess Sodium 143 Potassium 4.4 D Chloride 102 Carbon Dioxide 33 H Anion Gap 12 BUN 31 H Creatinine 0.98 Estim Creat Clear Calc 64.3 Estimated GFR 56 POC Glucose Random Glucose 144 H Calcium 7.6 L Phosphorus 5.4 H Magnesium 2.3 B-Natriuretic Peptide 306 H Blood Type Antibody Screen Direct Antiglob Test SUSANNE, Polyspecific Crossmatch 12/30/20 12/30/20 12/30/20 05:24 05:45 06:20 WBC RBC Hgb Hct MCV MCH MCHC RDW Plt Count MPV Immature Gran % (Auto) Neut % (Auto) Lymph % (Auto) [place] % (Auto) Eos % (Auto) Baso % (Auto) Lymph # (Auto) [place] # (Auto) Eos # (Auto) Baso # (Auto) Abs Immat Gran (auto) Absolute Neuts (auto) Absolute Nucleated RBC Nucleated RBC % (auto) Smear Tech's Comments PT INR APTT PTT (Heparin Protocol) Fibrinogen O2 Saturation ABG pH at Pt Temp ABG pH (Temp Correct) ABG pCO2 at Pt Temp ABG pCO2 (Temp Corrct ABG pO2 at Pt Temp ABG pO2 (Temp Correct ABG HCO3 ABG Base Excess (Actual) VBG pH 7.29 L VBG pCO2 84 VBG pO2 103 VBG HCO3 40 H VBG O2 Saturation 97.0 VBG Base Excess 11.8 Sodium Potassium Chloride Carbon Dioxide Anion Gap BUN Creatinine Estim Creat Clear Calc Estimated GFR POC Glucose 137 H Random Glucose Calcium Phosphorus Magnesium B-Natriuretic Peptide Blood Type Antibody Screen Direct Antiglob Test NEGATIVE SUSANNE, Polyspecific NEGATIVE Crossmatch 12/30/20 12/30/20 12/30/20 09:15 11:11 12:17 WBC RBC Hgb Hct MCV MCH MCHC RDW Plt Count MPV Immature Gran % (Auto) Neut % (Auto) Lymph % (Auto) [place] % (Auto) Eos % (Auto) Baso % (Auto) Lymph # (Auto) [place] # (Auto) Eos # (Auto) Baso # (Auto) Abs Immat Gran (auto) Absolute Neuts (auto) Absolute Nucleated RBC Nucleated RBC % (auto) Smear Tech's Comments PT INR APTT PTT (Heparin Protocol) Fibrinogen O2 Saturation ABG pH at Pt Temp ABG pH (Temp Correct) ABG pCO2 at Pt Temp ABG pCO2 (Temp Corrct ABG pO2 at Pt Temp ABG pO2 (Temp Correct ABG HCO3 ABG Base Excess (Actual) VBG pH 7.22 L VBG pCO2 96 VBG pO2 57 VBG HCO3 40 H VBG O2 Saturation 83.0 VBG Base Excess 10.5 Sodium Potassium Chloride Carbon Dioxide Anion Gap BUN Creatinine Estim Creat Clear Calc Estimated GFR POC Glucose 148 H Random Glucose Calcium Phosphorus Magnesium B-Natriuretic Peptide Blood Type O Positive Antibody Screen NEGATIVE Direct Antiglob Test SUSANNE, Polyspecific Crossmatch See Detail 12/30/20 12/30/20 12/30/20 12:35 15:19 15:19 WBC 20.7 H RBC 2.03 L Hgb 7.2 L 6.6 L* Hct 23.4 L 21.2 L MCV 104.4 H MCH 32.5 MCHC 31.1 RDW 14.5 Plt Count 131 L MPV 10.5 Immature Gran % (Auto) 0.7 H Neut % (Auto) 92.7 H Lymph % (Auto) 1.2 L [place] % (Auto) 5.3 Eos % (Auto) 0.0 Baso % (Auto) 0.1 Lymph # (Auto) 0.3 L [place] # (Auto) 1.1 Eos # (Auto) 0.0 Baso # (Auto) 0.0 Abs Immat Gran (auto) 0.15 H Absolute Neuts (auto) 19.2 H Absolute Nucleated RBC 0.000 Nucleated RBC % (auto) 0.0 Smear Tech's Comments VERIFIED PT 29.3 H D INR 2.4 H APTT 41.5 H D PTT (Heparin Protocol) Fibrinogen 615 O2 Saturation ABG pH at Pt Temp ABG pH (Temp Correct) ABG pCO2 at Pt Temp ABG pCO2 (Temp Corrct ABG pO2 at Pt Temp ABG pO2 (Temp Correct ABG HCO3 ABG Base Excess (Actual) VBG pH VBG pCO2 VBG pO2 VBG HCO3 VBG O2 Saturation VBG Base Excess Sodium Potassium Chloride Carbon Dioxide Anion Gap BUN Creatinine Estim Creat Clear Calc Estimated GFR POC Glucose Random Glucose Calcium Phosphorus Magnesium B-Natriuretic Peptide Blood Type Antibody Screen Direct Antiglob Test SUSANNE, Polyspecific Crossmatch Microbiology Microbiology Results: Microbiology 12/27/20 17:56 Sputum - Suctioned Gram Stain - Final 12/27/20 17:56 Sputum - Suctioned Sputum Culture - Final 12/27/20 17:53 Urine clean catch - Clean Catch Midstream Urine Culture - Final No growth. Progress Note: A&P Assessment and plan (1) Hemothorax on right: Status: Acute (2) Acute hypercapnic respiratory failure due to obstructive sleep apnea: Status: Acute (3) Acute renal failure due to tubular necrosis: Status: Acute (4) Sick sinus syndrome: Status: Acute (5) Symptomatic bradycardia: Status: Acute (6) Sleep apnea: Status: Acute (7) PAF (paroxysmal atrial fibrillation): Status: Acute (8) Cardiac arrest: Status: Acute (9) Metabolic alkalosis: Status: Acute (10) Dysphagia: Status: Acute (11) Heart failure with preserved ejection fraction: Status: Acute (12) Hyponatremia: Status: Acute (13) Acute hyponatremia: Status: Acute (14) Fluid overload: Status: Acute (15) Acute diastolic CHF (congestive heart failure): Status: Acute (16) Uncontrolled hypertension: Status: Acute Assessment and Plan: So right-sided chest to was placed without complication draining greater than 2 L of mostly sanguinous fluid with re-expansion of the lung on the right S and also because of the acute on chronic hypercarbic respiratory failure comfortable easy intubation was performed preserving hemodynamics mental status and I will discuss with Cardiology the approach to the atrial fibrillation she and might need a very quick transesophageal echo and cardioversion if permitted in but for now rate control with amiodarone and digoxin and were going to have cardiothoracic surgery follow-up with us in a because of this trauma related right-sided hemothorax and bilateral lung contusion and also at this point prevent a start tube feedings
--- NOTE | 2020-12-30 17:23 | PC.NURSE ---
Assumed patient care around 0700. Upon morning assessment patient slightly drowsy but A&Ox3 and able to answer simple questions appropriately. Patient reported midsternal,non radiating pain/discomfort. MD notified. 1 mg IV Dilaudid administered with good effect per patient report. VSS. SR on tele in the morning on Amiodarone gtt. Patient remained on EPAP settings with O2 sats trending in the low 90s, patient tolerating EPAP well. Repeat morning VBGs obtained: 7./96/57/40. MD decision to intubate. 50 mg of IV Rocuronium given per MD for intubation. Patient tolerated well. Placed on AC VC settings: Rate 18, tidal volume of 600, peep 8, fio2 95 %. O2 sats trending in the mid 90s. ET tube 7.5 and 25 dawit. OG tube placed. CXR obtained to confirm placement. Started on Propofol and Norepinephrine gtt. A line to remain in place per MD despite previous communication order to DC line prior to intubation. Repeat CRX obtained in the morning. New right sided chest tube placed by bedside around 10:00, CXR obtained to confirm placement. Bloody pleural output noted, MD aware. Total pleural output from [id number] was 2,125 ml, MD aware. Chest CT obtained. During transport back to the unit patient noted to have converted from sinus rhythm to a.fin on tele. MD aware. 0.5mg IV Digoxin given, on Amiodarone drip. Thoracic consult ordered and at bedside this afternoon. Patient infused with 2 units RBCs and 1 unit FFP. Per Thoracic PA record chest tube output every four hours, monitor Hgb, and plan for repeat CXR tonight 1999. Will continue to monitor H&H and chest tube output. Jones output between 20-30 ml/hr, aware. No BM today, MD aware. Skin C/D/I. Bruising to various areas and abdomen. Remains on air mattress. Reposition Q2H. Barrier cream applied.
[2020-12-30 18:25] LABS: Glucose, Whole Blood 148 mg/dL (60-115)
[2020-12-30] MEDS: propofoL 1,000 MG/100 ML VIAL 26.45 MG IVCONT ×2 (20:44→23:17)
[2020-12-30] MEDS: Amiodarone HCL 900 MG in 0.9 % Sodium Chloride 500 ML 17.27 MG IVCONT (20:45)
[2020-12-30 21:11] LABS: Basophils Percent Auto 0.1 % (0-2); Hematocrit 25.5 % (37-47); Hemoglobin 8.2 g/dl (12.0-16.0); Imm Gran Abs Auto 0.11 X10*3/uL (0.00-0.03); Imm Gran Pct Auto 0.6 % (0.0-0.4); Lymphocytes Absolute Auto 0.4 X10*3/uL (1.2-4.9); MANUAL DIFF FLAG SCAN; Mean Corpuscular HGB Conc 32.2 g/dl (31.0-35.0); Mean Corpuscular Hemoglobin 30.9 pg (27.0-33.0); Mean Corpuscular Volume 96.2 fL (80-98); Mean Platelet Volume 10.4 fL (9.4-12.3); Monocytes Absolute Auto 0.9 X10*3/uL (0.1-1.2); Monocytes Percent Auto 5.3 % (2-11); Platelet Count 109 X10*3/uL (160-400); Red Blood Count 2.65 X10*6/uL (4.20-5.50); SCAN SMEAR FLAG 1; White Blood Count 17.3 X10*3/uL (4.8-10.8)
[2020-12-30 21:26] LABS: INTERNATIONAL NORM RATIO 1.8 (0.9-1.1)
[2020-12-30 21:29] LABS: Partial Thromboplastin Time 33.4 SEC (24.1-38.0)
[2020-12-30] MEDS: Chlorhexidine Gluc Oral Rinse 15 ML MOUTHWASH BUCCAL (21:33)
[2020-12-30 22:36] LABS: ABG Base Excess 11.6 mmol/L; ABG HCO3 34 mmol/L (22-26); ABG pCO2 38 mmHg (32-45); ABG pCO2 TC 40 mmHg (32-45); ABG pH 7.56 (7.35-7.45); ABG pH TC 7.54 (7.35-7.45); ABG pO2 71 mmHg (83-108); ABG pO2 TC 77 (83-108)
[2020-12-31] VITALS (33 sets, daily range): BP systolic 97–141; BP diastolic 30–56; PULSE 89–135; RESP 8–18; TEMP 38–38.6; O2SAT 91–96; BMI 39.2
[2020-12-31 00:09] LABS: Glucose, Whole Blood 150 mg/dL (60-115)
[2020-12-31 00:32] LABS: Basophils Percent Auto 0.1 % (0-2); Hemoglobin 8.1 g/dl (12.0-16.0); Imm Gran Pct Auto 0.7 % (0.0-0.4); MANUAL DIFF FLAG SCAN; Mean Corpuscular Volume 96.9 fL (80-98); Mean Platelet Volume 10.9 fL (9.4-12.3); Neutrophils Absolute Auto 16.1 X10*3/uL (2.0-8.3); PLT CLUMP 1; SCAN SMEAR FLAG 1
[2020-12-31 00:34] LABS: Hematocrit 24.9 % (37-47); Imm Gran Abs Auto 0.13 X10*3/uL (0.00-0.03); Lymphocytes Absolute Auto 0.3 X10*3/uL (1.2-4.9); Lymphocytes Percent Auto 1.5 % (20-40); Mean Corpuscular HGB Conc 32.5 g/dl (31.0-35.0); Mean Corpuscular Hemoglobin 31.5 pg (27.0-33.0); Monocytes Absolute Auto 1.1 X10*3/uL (0.1-1.2); Monocytes Percent Auto 6.4 % (2-11); NRBC Pct Auto 0.1 /100WBC (0.0-0.2); Neutrophils Percent Auto 91.3 % (45-73); Platelet Count 131 X10*3/uL (160-400); Red Blood Count 2.57 X10*6/uL (4.20-5.50); White Blood Count 17.7 X10*3/uL (4.8-10.8)
[2020-12-31 00:59] LABS: SLIDE REVIEW VERIFIED
[2020-12-31] MEDS: cefTRIAXone sodium 1 GM in 0.9 % Sodium Chloride 50 ML IV (01:35)
[2020-12-31] MEDS: propofoL 1,000 MG/100 ML VIAL 23.15 MG IVCONT (03:14)
[2020-12-31 04:28] LABS: Basophils Percent Auto 0.1 % (0-2); Hemoglobin 8.3 g/dl (12.0-16.0); MANUAL DIFF FLAG SCAN; PLT CLUMP 1; SCAN SMEAR FLAG 1
[2020-12-31 04:30] LABS: Hematocrit 25.6 % (37-47); Imm Gran Abs Auto 0.11 X10*3/uL (0.00-0.03); Imm Gran Pct Auto 0.7 % (0.0-0.4); Lymphocytes Absolute Auto 0.3 X10*3/uL (1.2-4.9); Lymphocytes Percent Auto 1.8 % (20-40); Mean Corpuscular HGB Conc 32.4 g/dl (31.0-35.0); Mean Corpuscular Hemoglobin 31.3 pg (27.0-33.0); Mean Corpuscular Volume 96.6 fL (80-98); Mean Platelet Volume 10.5 fL (9.4-12.3); Monocytes Absolute Auto 0.9 X10*3/uL (0.1-1.2); Monocytes Percent Auto 5.4 % (2-11); Neutrophils Absolute Auto 15.5 X10*3/uL (2.0-8.3); Platelet Count 138 X10*3/uL (160-400); Red Blood Count 2.65 X10*6/uL (4.20-5.50); White Blood Count 16.9 X10*3/uL (4.8-10.8)
[2020-12-31 05:16] LABS: VBG Base Excess 12.8 mmol/L; VBG HCO3 37 mmol/L (22-26); VBG pCO2 51 mmHg; VBG pH 7.47 (7.32-7.43); VBG pO2 51 mmHg
[2020-12-31] MEDS: propofoL 1,000 MG/100 ML VIAL 26.45 MG IVCONT ×3 (05:46→17:51)
[2020-12-31 05:48] LABS: Basophils Percent Auto 0.1 % (0-2); MANUAL DIFF FLAG SCAN; PLT CLUMP 1; SCAN SMEAR FLAG 1
[2020-12-31 05:50] LABS: Imm Gran Abs Auto 0.12 X10*3/uL (0.00-0.03); Imm Gran Pct Auto 0.7 % (0.0-0.4); Lymphocytes Absolute Auto 0.3 X10*3/uL (1.2-4.9); Lymphocytes Percent Auto 1.8 % (20-40); Mean Corpuscular Hemoglobin 31.1 pg (27.0-33.0); Mean Corpuscular Volume 97.3 fL (80-98); Mean Platelet Volume 10.8 fL (9.4-12.3); Neutrophils Absolute Auto 14.8 X10*3/uL (2.0-8.3); Neutrophils Percent Auto 91.4 % (45-73); Platelet Count 138 X10*3/uL (160-400); Red Blood Count 2.57 X10*6/uL (4.20-5.50); Red Cell Distribution Width 16.8 % (11.0-16.0); White Blood Count 16.1 X10*3/uL (4.8-10.8)
[2020-12-31 06:05] LABS: INTERNATIONAL NORM RATIO 1.4 (0.9-1.1)
[2020-12-31 06:08] LABS: Partial Thromboplastin Time 27.3 SEC (24.1-38.0)
--- NOTE | 2020-12-31 06:13 | PC.NURSE ---
Tmax 101.5 core. PA made aware, IV ceftriaxone given x1. Afib on tele, HR 90-130s, remains on amiodarone gtt, see drug titration. Levophed titrated to maintain MAP > 65. [place] to L radial. CVP 6-10. Pt sedated on propofol, opens eyes occasionally, minimally tracks movement, appears comfortable. +C/G. ETT #7.5, 25 cm at lip. Suctioned bloody inline/oral secretions. On AC settings- 18/500/8/40%. LS diminished. R chest tube to -20 cm LWS, 700 mL sanguinous drainage from [id number], thoracic PA called/updated. Incision site and dsg C/D/I, no crepitus noted. Tf started, glucerna at 20 mL/hr. Jones in place, UOP approx 50 ml/hr. Skin intact- bruising throughout, buttocks red but blanchable. On air mattress system, repositioned q2h. Daughter/HCP called/updated.
[2020-12-31 06:31] LABS: Anion Gap 10 (12-20); Blood Urea Nitrogen 31 mg/dL (9-16); Calcium 7.6 mg/dL (8.4-10.2); Carbon Dioxide 34 mmol/L (22-29); Chloride 105 mmol/L (96-108); Creatinine Clr Calc Pharmacy 71.6; Estimated Glomerular Filt Rate > 60; Glucose Random 147 mg/dL (60-115); Magnesium 2.2 mg/dL (1.6-2.6); Phosphorus 2.4 mg/dL (2.7-4.5); Potassium 3.6 mmol/L (3.3-5.1); Sodium 145 mmol/L (135-145)
[2020-12-31 06:35] LABS: B Type Natriuretic Peptide 557 pg/mL (<100)
[2020-12-31] MEDS: Albuterol/Iprat 2.5/0.5MG 3 ML AMPUL.NEB INHALE ×4 (07:52→20:45)
[2020-12-31 08:25] LABS: Venous Blood Gas Refer to POC result
--- NOTE | 2020-12-31 09:20 | P.PNTS_ITS ---
Subjective Subjective Date of Service: 12/31/20 Patient reports: other Interval history: Patient remains intubated and sedated. Current vent settings are AC 18/500/60 5/40% FiO2. She is able to follow commands and tracks with eyes. Physical Exam Vital Signs: Vital Signs: Last Vital Signs Temp 100.5 F H 12/31/20 09:00 Pulse 131 H 12/31/20 09:00 Resp 18 12/31/20 09:00 BP 127/56 L 12/31/20 09:00 Pulse Ox 91 L 12/31/20 09:00 Oxygen Flow Rate 2 12/26/20 15:00 Body Mass Index 39.2 Const: Other: Patient is intubated and sedated. She is able to track with her eyes and follow commands. General: no acute distress Nutritional Appearance: well nourished HENMT: Head: Yes normal to inspection, Yes normocephalic and Yes atraumatic Mouth: Normal oral and palatal mucosa present Eyes: Visual Carrizales: normal visual carrizales by confrontation Alignment and Position: alignment normal Periorbital: periorbital findings normal Conjunctivae: conjunctivae normal Sclerae: sclerae normal Pupils: Equal, round and reactive pupils present and Pupil accommodation reflex normal EOM: EOMs intact bilaterally Neck: Neck: Yes normal visual inspection, Yes full ROM, Yes no lymphadenopathy, Yes trachea midline, Yes supple, No lymphadenopathy, No tender and No tracheal deviation Lymphatic: no lymphadenopathy noted Chest: Chest palpation & inspection: normal inspection of the chest and no crepitus Resp: Other: Patient is intubated. Chest expansion is symmetrical. Right lateral pigtail chest tube in place draining hemorrhagic dark red pleural fluid. There is 1400 cc of drainage within her atrium which is currently placed to -20 cm continuous low wall suction. Per nursing documentation, patient has had 3375 cc of drainage from this atrium since 3 PM on 12/30/2020. There is no visible air leak on exam. Chest tube dressing is clean, dry, and intact. Effort & Inspection: normal respiratory effort, able to speak in complete sentences, normal respiratory pattern, no audible wheezes, no cough, no pursed lip breathing, no respiratory distress, no stridor, not tachypneic and no tracheal deviation Auscultation: clear to auscultation bilaterally Cardio: Jugular venous distension: no JVD Palpation: normal PMI Rate: tachycardic (Irregular rhythm. A. fib on hall monitor. Heart rate in the 130s) Rhythm: abnormal rhythm Heart sounds: S1 normal heart sound present, S2 normal heart sound present, no click, no gallops, no murmurs and no rubs Peripheral pulses: other (2+ pitting edema to bilateral upper and lower extremities.) GI: Other: Round obese. No masses on palpation. Normoactive bowel sounds noted. Inspection: Yes normal to inspection Auscultation: normal bowel sounds Back/Spine/Pelvis: Thoracic/Lumbar Spine: thoracic and lumbar spine normal to inspection Skin: General skin exam: no rashes or lesions noted and dry skin Lesions: no lesions Rashes: no rashes Neuro: Cranial nerves: Yes Equal, round and reactive pupils present Extrem: General: Yes capillary refill normal Psych: Appearance: grossly normal and well kempt Progress Note: A&P Assessment and plan (1) Hemothorax on right: Status: Acute Assessment and Plan: Pt is a 75-year-old female with a past medical history of type 2 diabetes, morbid obesity, COPD, CHF, atrial fibrillation with a home regimen of Eliquis who was admitted for weakness and probable acute on chronic diastolic heart failure. On 12/27/20, patient had a PEA arrest resulting in trauma to the chest cavity following 10 mins of CPR with findings on chest CT of left-sided rib fractures 2-7 and right-sided hemothorax. Now s/p R pigtail chest tube placement on 12/30/20. * Chest CT on 12/30/20 showed moderate to large right pleural effusion with small left pleural effusion and bilateral ground glass opacities to bilateral upper lobes. Also noted to have multiple left anterior rib fractures to left anterior rib fractures involving the left second to seventh anterior ribs. Also noted to have ? hematoma of left lateral chest. A chest tube was placed by Dr. Franklin on 12/30/20 after findings on CXR showed large right pleural effusion vs hemothorax. * Chest tube output with 3375 cc of dark hemorrhagic fluid since 12/30/2020 at 3 PM per nursing documentation. * Patient has had approximately 700 cc of drainage overnight. * Chest tube remains to -20 cm continuous low wall suction. No visible air leak on exam. * Chest x-ray ordered for this morning showed no pneumothorax or pneumomediastinum. There are bibasilar airspace opacities and effusions, greater on right, and decreased from prior chest radiograph 12/30/2020 at 1955 hours. * Order placed for nursing to nolan atrium every 2 hours for accurate chest tube output monitoring. * If patient continues to have excessive output from her chest tube we will consider exploratory thoracotomy and washout. * Patient s/p 1 unit of FFP's: INR now 1.4, PT 17, APTT 27.3 * Hemoglobin and hematocrit 8.0 and 25.0 respectively. * Vital signs are stable. Patient now in A. fib with heart rate in the 130s. Per Dr. Franklin, Dr. Robledo following and may consider possible cardioversion as patient has been off anticoagulation for 24 hours. Apprec iate recommendations. * DVT prophylaxis: Intermittent pneumatic compression stockings * Lines: Triple-lumen to the right subclavian. Patient currently on amiodarone drip, propofol, lactated Ringer's, and trickle feeds through OG tube. Fall Risk Details Current Medications: Current Medications Generic Name Dose Route Start Last Admin Trade Name Freq PRN Reason Stop Dose Admin Albuterol/Ipratropium 3 ml 12/28/20 20:00 12/31/20 07:52 Albuterol/Iprat 2.5/0.5mg 3 Ml Ampul.Neb INHALE 3 ml RQ4H WHILE AWAKE DEE Administration Chlorhexidine Gluconate 15 ml 12/30/20 21:30 12/30/20 21:33 Chlorhexidine Gluc Oral Rinse 15 Ml Mouthwash BUCCAL 15 ml TID DEE Administration Famotidine 20 mg 12/29/20 09:00 12/30/20 08:41 Famotidine/Pf 20 Mg/2 Ml Vial IVPUSH 20 mg DAILY DEE Administration Amiodarone HCl 900 mg/ Sodium 518 mls @ 17.267 mls/hr 12/28/20 10:30 12/30/20 20:45 Chloride IVCONT 0.5 mg/min .Q24H DEE 17.27 mls/hr Administration Protocol 0.5 MG/MIN Norepinephrine Bitartrate 8 mg in 250 mls @ 0 mls/hr 12/28/20 17:30 12/31/20 03:15 Levophed IVCONT 0.07 mcg/kg/min .Q0M DEE 14.47 mls/hr Administration Protocol Per Protocol Argatroban 250 mg/ Sodium 252.5 mls @ 6.68 mls/hr 12/29/20 23:56 12/30/20 21:08 Chloride IV Infused .Q24H DEE Infusion 1 MCG/KG/MIN Potassium Chloride 20 meq/ 1,010 mls @ 42 mls/hr 12/30/20 08:00 12/30/20 08:24 Lactated Ringer's IVCONT 42 mls/hr .Q24H DEE Administration Propofol 1,000 mg in 100 mls @ 0 mls/hr 12/30/20 12:15 12/31/20 05:46 Diprivan IVCONT 40 mcg/kg/min .Q0M DEE 26.45 mls/hr Administration Protocol Per Protocol Insulin Human Lispro 0 unit 12/28/20 12:00 12/31/20 05:45 Insulin Lispro 100 Unit/Ml 3 Ml Vial SUBCUT Not Given Q6H DEE Protocol Sodium Chloride 3 ml 12/14/20 00:00 12/30/20 23:17 0.9 % Sodium Chloride Flush 3 Ml Syringe IVFLUSH 3 ml QSHIFT DEE Administration Time Spent With Patient Time: Total time spent is greater than 50% in coordination of care (as documented) at patient's floor/unit and/or counseling patient: Time with patient: less than 15 minutes Procedures Date of Service Date of Service: 12/31/20
[2020-12-31] MEDS: Famotidine/PF 20 MG/2 ML VIAL IVPUSH (09:28)
[2020-12-31] MEDS: Chlorhexidine Gluc Oral Rinse 15 ML MOUTHWASH BUCCAL ×3 (09:28→21:00)
[2020-12-31] MEDS: 0.9 % Sodium Chloride Flush 3 ML SYRINGE IVFLUSH ×2 (09:28→17:51)
[2020-12-31] MEDS: Digoxin 0.5 MG/2 ML AMPUL 0.25 MG IVPUSH ×2 (09:29→13:26)
--- NOTE | 2020-12-31 09:31 | P.PNCA_ITS ---
Subjective Subjective Date of Service: 12/31/20 Interval history: Again intubated. Events noted. Review of Systems Review of Systems Yes unobtainable due to endotracheal tube and Unobtainable due to mental condition Physical Exam Vital Signs: Last Vital Signs Temp 100.5 F H 12/31/20 09:00 Pulse 130 H 12/31/20 09:29 Resp 18 12/31/20 09:00 BP 127/56 L 12/31/20 09:00 Pulse Ox 91 L 12/31/20 09:00 Oxygen Flow Rate 2 12/26/20 15:00 Body Mass Index 39.2 Const General: no acute distress HENID Other: Unremarkable Neck Neck: Yes normal visual inspection Chest Chest palpation & inspection: normal inspection of the chest Resp Auscultation: clear to auscultation bilaterally, no crackles and no wheezes Cardio Jugular venous distension: no JVD Palpation: normal PMI Heart sounds: S1 normal heart sound present, S2 normal heart sound present, no gallops, no murmurs and no rubs GI Palpation (GI): Soft to palpation Back/Spine/Pelvis Other: unremarkable Skin General skin exam: no rashes or lesions noted Extrem General: Yes no clubbing, cyanosis or edema Psych Other: intubated and cannot assess Results Labs and Meds Result diagrams: 12/31/20 05:10 12/31/20 05:10 Lab results: Laboratory Results - last 24 hr 12/30/20 12/30/20 12/30/20 09:15 11:11 12:17 WBC RBC Hgb Hct MCV MCH MCHC RDW Plt Count MPV Immature Gran % (Auto) Neut % (Auto) Lymph % (Auto) [place] % (Auto) Eos % (Auto) Baso % (Auto) Lymph # (Auto) [place] # (Auto) Eos # (Auto) Baso # (Auto) Abs Immat Gran (auto) Absolute Neuts (auto) Absolute Nucleated RBC Nucleated RBC % (auto) Smear Tech's Comments PT INR APTT Fibrinogen O2 Saturation ABG pH at Pt Temp ABG pH (Temp Correct) ABG pCO2 at Pt Temp ABG pCO2 (Temp Corrct ABG pO2 at Pt Temp ABG pO2 (Temp Correct ABG HCO3 ABG Base Excess (Actual) VBG pH 7.22 L VBG pCO2 96 VBG pO2 57 VBG HCO3 40 H VBG O2 Saturation 83.0 VBG Base Excess 10.5 Sodium Potassium Chloride Carbon Dioxide Anion Gap BUN Creatinine Estim Creat Clear Calc Estimated GFR POC Glucose 148 H Random Glucose Calcium Phosphorus Magnesium B-Natriuretic Peptide Blood Type O Positive Antibody Screen NEGATIVE Crossmatch See Detail 12/30/20 12/30/20 12/30/20 12:35 15:19 15:19 WBC 20.7 H RBC 2.03 L Hgb 7.2 L 6.6 L* Hct 23.4 L 21.2 L MCV 104.4 H MCH 32.5 MCHC 31.1 RDW 14.5 Plt Count 131 L MPV 10.5 Immature Gran % (Auto) 0.7 H Neut % (Auto) 92.7 H Lymph % (Auto) 1.2 L [place] % (Auto) 5.3 Eos % (Auto) 0.0 Baso % (Auto) 0.1 Lymph # (Auto) 0.3 L [place] # (Auto) 1.1 Eos # (Auto) 0.0 Baso # (Auto) 0.0 Abs Immat Gran (auto) 0.15 H Absolute Neuts (auto) 19.2 H Absolute Nucleated RBC 0.000 Nucleated RBC % (auto) 0.0 Smear Tech's Comments VERIFIED PT 29.3 H D INR 2.4 H APTT 41.5 H D Fibrinogen 615 O2 Saturation ABG pH at Pt Temp ABG pH (Temp Correct) ABG pCO2 at Pt Temp ABG pCO2 (Temp Corrct ABG pO2 at Pt Temp ABG pO2 (Temp Correct ABG HCO3 ABG Base Excess (Actual) VBG pH VBG pCO2 VBG pO2 VBG HCO3 VBG O2 Saturation VBG Base Excess Sodium Potassium Chloride Carbon Dioxide Anion Gap BUN Creatinine Estim Creat Clear Calc Estimated GFR POC Glucose Random Glucose Calcium Phosphorus Magnesium B-Natriuretic Peptide Blood Type Antibody Screen Crossmatch 12/30/20 12/30/20 12/30/20 18:20 21:03 21:04 WBC 17.3 H RBC 2.65 L D Hgb 8.2 L D Hct 25.5 L D MCV 96.2 D MCH 30.9 MCHC 32.2 RDW 17.0 H Plt Count 109 L MPV 10.4 Immature Gran % (Auto) 0.6 H Neut % (Auto) 92.0 H Lymph % (Auto) 2.0 L [place] % (Auto) 5.3 Eos % (Auto) 0.0 Baso % (Auto) 0.1 Lymph # (Auto) 0.4 L [place] # (Auto) 0.9 Eos # (Auto) 0.0 Baso # (Auto) 0.0 Abs Immat Gran (auto) 0.11 H Absolute Neuts (auto) 16.0 H Absolute Nucleated RBC 0.000 Nucleated RBC % (auto) 0.0 Smear Tech's Comments PT 22.0 H D INR 1.8 H APTT 33.4 Fibrinogen O2 Saturation ABG pH at Pt Temp ABG pH (Temp Correct) ABG pCO2 at Pt Temp ABG pCO2 (Temp Corrct ABG pO2 at Pt Temp ABG pO2 (Temp Correct ABG HCO3 ABG Base Excess (Actual) VBG pH VBG pCO2 VBG pO2 VBG HCO3 VBG O2 Saturation VBG Base Excess Sodium Potassium Chloride Carbon Dioxide Anion Gap BUN Creatinine Estim Creat Clear Calc Estimated GFR POC Glucose 148 H Random Glucose Calcium Phosphorus Magnesium B-Natriuretic Peptide Blood Type Antibody Screen Crossmatch 12/30/20 12/31/20 12/31/20 22:29 00:06 00:10 WBC 17.7 H RBC 2.57 L Hgb 8.1 L Hct 24.9 L MCV 96.9 MCH 31.5 MCHC 32.5 RDW 17.0 H Plt Count 131 L MPV 10.9 Immature Gran % (Auto) 0.7 H Neut % (Auto) 91.3 H Lymph % (Auto) 1.5 L [place] % (Auto) 6.4 Eos % (Auto) 0.0 Baso % (Auto) 0.1 Lymph # (Auto) 0.3 L [place] # (Auto) 1.1 Eos # (Auto) 0.0 Baso # (Auto) 0.0 Abs Immat Gran (auto) 0.13 H Absolute Neuts (auto) 16.1 H Absolute Nucleated RBC 0.020 H Nucleated RBC % (auto) 0.1 Smear Tech's Comments VERIFIED PT INR APTT Fibrinogen O2 Saturation 96.0 ABG pH at Pt Temp 7.56 H ABG pH (Temp Correct) 7.54 H ABG pCO2 at Pt Temp 38 ABG pCO2 (Temp Corrct 40 ABG pO2 at Pt Temp 71 L ABG pO2 (Temp Correct 77 L ABG HCO3 34 H ABG Base Excess (Actual) 11.6 VBG pH VBG pCO2 VBG pO2 VBG HCO3 VBG O2 Saturation VBG Base Excess Sodium Potassium Chloride Carbon Dioxide Anion Gap BUN Creatinine Estim Creat Clear Calc Estimated GFR POC Glucose 150 H Random Glucose Calcium Phosphorus Magnesium B-Natriuretic Peptide Blood Type Antibody Screen Crossmatch 12/31/20 12/31/20 12/31/20 04:00 05:10 05:10 WBC 16.9 H 16.1 H RBC 2.65 L 2.57 L Hgb 8.3 L 8.0 L Hct 25.6 L 25.0 L MCV 96.6 97.3 MCH 31.3 31.1 MCHC 32.4 32.0 RDW 17.0 H 16.8 H Plt Count 138 L 138 L MPV 10.5 10.8 Immature Gran % (Auto) 0.7 H 0.7 H Neut % (Auto) 92.0 H 91.4 H Lymph % (Auto) 1.8 L 1.8 L [place] % (Auto) 5.4 6.0 Eos % (Auto) 0.0 0.0 Baso % (Auto) 0.1 0.1 Lymph # (Auto) 0.3 L 0.3 L [place] # (Auto) 0.9 1.0 Eos # (Auto) 0.0 0.0 Baso # (Auto) 0.0 0.0 Abs Immat Gran (auto) 0.11 H 0.12 H Absolute Neuts (auto) 15.5 H 14.8 H Absolute Nucleated RBC 0.000 0.000 Nucleated RBC % (auto) 0.0 0.0 Smear Tech's Comments PT 17.0 H D INR 1.4 H APTT 27.3 Fibrinogen O2 Saturation ABG pH at Pt Temp ABG pH (Temp Correct) ABG pCO2 at Pt Temp ABG pCO2 (Temp Corrct ABG pO2 at Pt Temp ABG pO2 (Temp Correct ABG HCO3 ABG Base Excess (Actual) VBG pH VBG pCO2 VBG pO2 VBG HCO3 VBG O2 Saturation VBG Base Excess Sodium Potassium Chloride Carbon Dioxide Anion Gap BUN Creatinine Estim Creat Clear Calc Estimated GFR POC Glucose Random Glucose Calcium Phosphorus Magnesium B-Natriuretic Peptide Blood Type Antibody Screen Crossmatch 12/31/20 12/31/20 12/31/20 05:10 05:10 05:10 WBC RBC Hgb Hct MCV MCH MCHC RDW Plt Count MPV Immature Gran % (Auto) Neut % (Auto) Lymph % (Auto) [place] % (Auto) Eos % (Auto) Baso % (Auto) Lymph # (Auto) [place] # (Auto) Eos # (Auto) Baso # (Auto) Abs Immat Gran (auto) Absolute Neuts (auto) Absolute Nucleated RBC Nucleated RBC % (auto) Smear Tech's Comments PT INR APTT Fibrinogen O2 Saturation ABG pH at Pt Temp ABG pH (Temp Correct) ABG pCO2 at Pt Temp ABG pCO2 (Temp Corrct ABG pO2 at Pt Temp ABG pO2 (Temp Correct ABG HCO3 ABG Base Excess (Actual) VBG pH 7.47 H VBG pCO2 51 VBG pO2 51 VBG HCO3 37 H VBG O2 Saturation 85.0 VBG Base Excess 12.8 Sodium 145 Potassium 3.6 Chloride 105 Carbon Dioxide 34 H Anion Gap 10 L BUN 31 H Creatinine 0.88 Estim Creat Clear Calc 71.6 Estimated GFR > 60 POC Glucose Random Glucose 147 H Calcium 7.6 L Phosphorus 2.4 L Magnesium 2.2 B-Natriuretic Peptide 557 H Blood Type Antibody Screen Crossmatch Imaging Radiologist's impression: Impressions Chest X-Ray 12/30/20 09:56 IMPRESSION: New tube projects over right lung base. No pneumothorax seen. Chest X-Ray 12/30/20 11:04 IMPRESSION: Large bore chest catheter tip lies at the level just below the hilum. There is large right pleural effusion seen. No change in left central venous catheter, mild cardiomegaly and patchy opacity in the left upper and midlung regions. Abdomen/Pelvis CT 12/30/20 14:05 IMPRESSION: Chest: Satisfactory position of support line and tubes. New right chest tube appears to be in the right minor fissure. Moderate to large right pleural effusion. New small anterior right pneumothorax adjacent to the chest tube. Small left pleural effusion. No left pneumonia thorax. Bilateral lower lobe atelectasis/consolidation similar to previous exam. Increasing groundglass attenuation in the bilateral upper lobes. Multiple left anterior rib fractures. Increased high attenuation soft tissue in the left lateral chest wall questionable for hematoma. Abdomen and pelvis: Small amount of ascites surrounding the liver. Diverticulosis of the colon. Small nonobstructing right renal stone. Chest CT 12/30/20 14:05 IMPRESSION: Chest: Satisfactory position of support line and tubes. New right chest tube appears to be in the right minor fissure. Moderate to large right pleural effusion. New small anterior right pneumothorax adjacent to the chest tube. Small left pleural effusion. No left pneumonia thorax. Bilateral lower lobe atelectasis/consolidation similar to previous exam. Increasing groundglass attenuation in the bilateral upper lobes. Multiple left anterior rib fractures. Increased high attenuation soft tissue in the left lateral chest wall questionable for hematoma. Abdomen and pelvis: Small amount of ascites surrounding the liver. Diverticulosis of the colon. Small nonobstructing right renal stone. Chest X-Ray 12/30/20 19:55 IMPRESSION: 1. Decreased volume of the fluid in the right hemithorax since prior exam today. There is persistent pleural fluid collections as well as bilateral airspace disease. 2. Endotracheal tube 4 sinus above yunier. 3. Gastric tube in stomach. Progress Note: A&P Assessment and plan (1) Cardiac arrest: Status: Acute (2) Heart failure with preserved ejection fraction: Status: Acute (3) PAF (paroxysmal atrial fibrillation): Status: Acute Assessment and Plan: Probably initial respiratory event leading to atrial fibrillation with slow ventricular rate which in turn led to ventricular fibrillation/cardiac arrest. Successfully resuscitated. She is off flecainide. Has been on amiodarone drip but in spite of this it appears that she went into atrial fibrillation with rapid rate. Currently she is in atrial fibrillation at I 20/Min. However, she has been off anticoagulation due to concern for thoracic bleeding. Hence in this setting, cardioversion is going to be difficult if he cannot anticoagulate her. May continue amiodarone with intention to at least control the rate. Consider adding digoxin on other rate-controlling drugs to slow her down. If anticoagulation issue can be resolved then potentially cardioversion at some point. Fall Risk Details Current Medications: Current Medications Generic Name Dose Route Start Last Admin Trade Name Freq PRN Reason Stop Dose Admin Albuterol/Ipratropium 3 ml 12/28/20 20:00 12/31/20 07:52 Albuterol/Iprat 2.5/0.5mg 3 Ml Ampul.Neb INHALE 3 ml RQ4H WHILE AWAKE DEE Administration Chlorhexidine Gluconate 15 ml 12/30/20 21:30 12/31/20 09:28 Chlorhexidine Gluc Oral Rinse 15 Ml Mouthwash BUCCAL 15 ml TID DEE Administration Famotidine 20 mg 12/29/20 09:00 12/31/20 09:28 Famotidine/Pf 20 Mg/2 Ml Vial IVPUSH 20 mg DAILY DEE Administration Amiodarone HCl 900 mg/ Sodium 518 mls @ 17.267 mls/hr 12/28/20 10:30 12/30/20 20:45 Chloride IVCONT 0.5 mg/min .Q24H DEE 17.27 mls/hr Administration Protocol 0.5 MG/MIN Norepinephrine Bitartrate 8 mg in 250 mls @ 0 mls/hr 12/28/20 17:30 12/31/20 03:15 Levophed IVCONT 0.07 mcg/kg/min .Q0M DEE 14.47 mls/hr Administration Protocol Per Protocol Argatroban 250 mg/ Sodium 252.5 mls @ 6.68 mls/hr 12/29/20 23:56 12/30/20 21:08 Chloride IV Infused .Q24H DEE Infusion 1 MCG/KG/MIN Potassium Chloride 20 meq/ 1,010 mls @ 42 mls/hr 12/30/20 08:00 12/30/20 08:24 Lactated Ringer's IVCONT 42 mls/hr .Q24H DEE Administration Propofol 1,000 mg in 100 mls @ 0 mls/hr 12/30/20 12:15 12/31/20 09:28 Diprivan IVCONT 40 mcg/kg/min .Q0M DEE 26.45 mls/hr Administration Protocol Per Protocol Insulin Human Lispro 0 unit 12/28/20 12:00 12/31/20 05:45 Insulin Lispro 100 Unit/Ml 3 Ml Vial SUBCUT Not Given Q6H DEE Protocol Sodium Chloride 3 ml 12/14/20 00:00 12/31/20 09:28 0.9 % Sodium Chloride Flush 3 Ml Syringe IVFLUSH 3 ml QSHIFT DEE Administration Time Spent With Patient Time: Total time spent is greater than 50% in coordination of care (as documented) at patient's floor/unit and/or counseling patient: Time with patient: less than 15 minutes Procedures Date of Service Date of Service: 12/31/20
[2020-12-31] MEDS: propofoL 1,000 MG/100 ML VIAL 33.07 MG IVCONT ×3 (11:30→21:00)
[2020-12-31 12:42] LABS: MANUAL DIFF FLAG SCAN; NRBC Pct Auto 0.1 /100WBC (0.0-0.2); PLT CLUMP 1; SCAN SMEAR FLAG 1
[2020-12-31 12:44] LABS: Hematocrit 24.1 % (37-47); Hemoglobin 7.7 g/dl (12.0-16.0); Imm Gran Abs Auto 0.13 X10*3/uL (0.00-0.03); Imm Gran Pct Auto 0.9 % (0.0-0.4); Lymphocytes Absolute Auto 0.3 X10*3/uL (1.2-4.9); Lymphocytes Percent Auto 2.2 % (20-40); Mean Corpuscular Hemoglobin 31.2 pg (27.0-33.0); Mean Corpuscular Volume 97.6 fL (80-98); Mean Platelet Volume 10.7 fL (9.4-12.3); Monocytes Absolute Auto 1.1 X10*3/uL (0.1-1.2); Monocytes Percent Auto 7.5 % (2-11); Neutrophils Absolute Auto 13.5 X10*3/uL (2.0-8.3); Neutrophils Percent Auto 89.4 % (45-73); Platelet Count 135 X10*3/uL (160-400); Red Blood Count 2.47 X10*6/uL (4.20-5.50); Red Cell Distribution Width 16.9 % (11.0-16.0)
--- NOTE | 2020-12-31 13:02 | PM.CCPN ---
Subjective Subjective Date of Service: 12/31/20 Critical Care Time (minutes): 45 Comment: 75-year-old female with untreated sleep apnea and obesity hypoventilation who is now 3 days status post 10 minutes CPR with chest compressions and intubated at that time subsequently extubated but later on failed on on BiPAP with progressively rising pCO2 to 95 and acidotic and at that time apparently had an increasing right-sided pleural effusion with complete right lung compression and it turned out to be a hemo thorax probably related to the trauma of CPR she had a significant drop in hemoglobin requiring 2 units of red blood cells and 1 of fresh frozen plasma she was removed from anticoagulants that we use for her paroxysmal atrial fibrillation and she is currently in AFib controlled heart rate at 93 oxygen saturation 96% on the ventilator mean arterial pressure of about 60 and the 2 and a 0.5 L hemo thorax was removed by chest tube insertion and we are awaiting the opinion of the thoracic surgeon as a follow-up issue but stable on the ventilator with chest tube in place Physical Exam Vital Signs: Vital Signs: Last Vital Signs Temp 100.9 F H 12/31/20 09:57 Pulse 117 H 12/31/20 11:05 Resp 18 12/31/20 09:57 BP 127/54 L 12/31/20 09:57 Pulse Ox 93 12/31/20 09:57 Oxygen Flow Rate 2 12/26/20 15:00 Body Mass Index 39.2 Const: Other: Awake and good cognitive function despite being on propofol CVP is a are 8-10 with bedside echo showing normal LV and RV function Chest that has bilateral contusions and just some scattered rales on the ventilator Tolerating feedings with soft abdomen good bowel sounds no organomegaly Objective Data Labs CBC & Chem 7: 12/31/20 12:25 12/31/20 05:10 Labs: Laboratory Results - last 24 hr 12/30/20 12/30/20 12/30/20 09:15 15:19 15:19 WBC 20.7 H RBC 2.03 L Hgb 6.6 L* Hct 21.2 L MCV 104.4 H MCH 32.5 MCHC 31.1 RDW 14.5 Plt Count 131 L MPV 10.5 Immature Gran % (Auto) 0.7 H Neut % (Auto) 92.7 H Lymph % (Auto) 1.2 L [place] % (Auto) 5.3 Eos % (Auto) 0.0 Baso % (Auto) 0.1 Lymph # (Auto) 0.3 L [place] # (Auto) 1.1 Eos # (Auto) 0.0 Baso # (Auto) 0.0 Abs Immat Gran (auto) 0.15 H Absolute Neuts (auto) 19.2 H Absolute Nucleated RBC 0.000 Nucleated RBC % (auto) 0.0 Smear Tech's Comments VERIFIED PT 29.3 H D INR 2.4 H APTT 41.5 H D Fibrinogen 615 O2 Saturation ABG pH at Pt Temp ABG pH (Temp Correct) ABG pCO2 at Pt Temp ABG pCO2 (Temp Corrct ABG pO2 at Pt Temp ABG pO2 (Temp Correct ABG HCO3 ABG Base Excess (Actual) VBG pH VBG pCO2 VBG pO2 VBG HCO3 VBG O2 Saturation VBG Base Excess Sodium Potassium Chloride Carbon Dioxide Anion Gap BUN Creatinine Estim Creat Clear Calc Estimated GFR POC Glucose Random Glucose Calcium Phosphorus Magnesium B-Natriuretic Peptide Blood Type O Positive Antibody Screen NEGATIVE Crossmatch See Detail 12/30/20 12/30/20 12/30/20 18:20 21:03 21:04 WBC 17.3 H RBC 2.65 L D Hgb 8.2 L D Hct 25.5 L D MCV 96.2 D MCH 30.9 MCHC 32.2 RDW 17.0 H Plt Count 109 L MPV 10.4 Immature Gran % (Auto) 0.6 H Neut % (Auto) 92.0 H Lymph % (Auto) 2.0 L [place] % (Auto) 5.3 Eos % (Auto) 0.0 Baso % (Auto) 0.1 Lymph # (Auto) 0.4 L [place] # (Auto) 0.9 Eos # (Auto) 0.0 Baso # (Auto) 0.0 Abs Immat Gran (auto) 0.11 H Absolute Neuts (auto) 16.0 H Absolute Nucleated RBC 0.000 Nucleated RBC % (auto) 0.0 Smear Tech's Comments PT 22.0 H D INR 1.8 H APTT 33.4 Fibrinogen O2 Saturation ABG pH at Pt Temp ABG pH (Temp Correct) ABG pCO2 at Pt Temp ABG pCO2 (Temp Corrct ABG pO2 at Pt Temp ABG pO2 (Temp Correct ABG HCO3 ABG Base Excess (Actual) VBG pH VBG pCO2 VBG pO2 VBG HCO3 VBG O2 Saturation VBG Base Excess Sodium Potassium Chloride Carbon Dioxide Anion Gap BUN Creatinine Estim Creat Clear Calc Estimated GFR POC Glucose 148 H Random Glucose Calcium Phosphorus Magnesium B-Natriuretic Peptide Blood Type Antibody Screen Crossmatch 12/30/20 12/31/20 12/31/20 22:29 00:06 00:10 WBC 17.7 H RBC 2.57 L Hgb 8.1 L Hct 24.9 L MCV 96.9 MCH 31.5 MCHC 32.5 RDW 17.0 H Plt Count 131 L MPV 10.9 Immature Gran % (Auto) 0.7 H Neut % (Auto) 91.3 H Lymph % (Auto) 1.5 L [place] % (Auto) 6.4 Eos % (Auto) 0.0 Baso % (Auto) 0.1 Lymph # (Auto) 0.3 L [place] # (Auto) 1.1 Eos # (Auto) 0.0 Baso # (Auto) 0.0 Abs Immat Gran (auto) 0.13 H Absolute Neuts (auto) 16.1 H Absolute Nucleated RBC 0.020 H Nucleated RBC % (auto) 0.1 Smear Tech's Comments VERIFIED PT INR APTT Fibrinogen O2 Saturation 96.0 ABG pH at Pt Temp 7.56 H ABG pH (Temp Correct) 7.54 H ABG pCO2 at Pt Temp 38 ABG pCO2 (Temp Corrct 40 ABG pO2 at Pt Temp 71 L ABG pO2 (Temp Correct 77 L ABG HCO3 34 H ABG Base Excess (Actual) 11.6 VBG pH VBG pCO2 VBG pO2 VBG HCO3 VBG O2 Saturation VBG Base Excess Sodium Potassium Chloride Carbon Dioxide Anion Gap BUN Creatinine Estim Creat Clear Calc Estimated GFR POC Glucose 150 H Random Glucose Calcium Phosphorus Magnesium B-Natriuretic Peptide Blood Type Antibody Screen Crossmatch 12/31/20 12/31/20 12/31/20 04:00 05:10 05:10 WBC 16.9 H 16.1 H RBC 2.65 L 2.57 L Hgb 8.3 L 8.0 L Hct 25.6 L 25.0 L MCV 96.6 97.3 MCH 31.3 31.1 MCHC 32.4 32.0 RDW 17.0 H 16.8 H Plt Count 138 L 138 L MPV 10.5 10.8 Immature Gran % (Auto) 0.7 H 0.7 H Neut % (Auto) 92.0 H 91.4 H Lymph % (Auto) 1.8 L 1.8 L [place] % (Auto) 5.4 6.0 Eos % (Auto) 0.0 0.0 Baso % (Auto) 0.1 0.1 Lymph # (Auto) 0.3 L 0.3 L [place] # (Auto) 0.9 1.0 Eos # (Auto) 0.0 0.0 Baso # (Auto) 0.0 0.0 Abs Immat Gran (auto) 0.11 H 0.12 H Absolute Neuts (auto) 15.5 H 14.8 H Absolute Nucleated RBC 0.000 0.000 Nucleated RBC % (auto) 0.0 0.0 Smear Tech's Comments PT 17.0 H D INR 1.4 H APTT 27.3 Fibrinogen O2 Saturation ABG pH at Pt Temp ABG pH (Temp Correct) ABG pCO2 at Pt Temp ABG pCO2 (Temp Corrct ABG pO2 at Pt Temp ABG pO2 (Temp Correct ABG HCO3 ABG Base Excess (Actual) VBG pH VBG pCO2 VBG pO2 VBG HCO3 VBG O2 Saturation VBG Base Excess Sodium Potassium Chloride Carbon Dioxide Anion Gap BUN Creatinine Estim Creat Clear Calc Estimated GFR POC Glucose Random Glucose Calcium Phosphorus Magnesium B-Natriuretic Peptide Blood Type Antibody Screen Crossmatch 12/31/20 12/31/20 12/31/20 05:10 05:10 05:10 WBC RBC Hgb Hct MCV MCH MCHC RDW Plt Count MPV Immature Gran % (Auto) Neut % (Auto) Lymph % (Auto) [place] % (Auto) Eos % (Auto) Baso % (Auto) Lymph # (Auto) [place] # (Auto) Eos # (Auto) Baso # (Auto) Abs Immat Gran (auto) Absolute Neuts (auto) Absolute Nucleated RBC Nucleated RBC % (auto) Smear Tech's Comments PT INR APTT Fibrinogen O2 Saturation ABG pH at Pt Temp ABG pH (Temp Correct) ABG pCO2 at Pt Temp ABG pCO2 (Temp Corrct ABG pO2 at Pt Temp ABG pO2 (Temp Correct ABG HCO3 ABG Base Excess (Actual) VBG pH 7.47 H VBG pCO2 51 VBG pO2 51 VBG HCO3 37 H VBG O2 Saturation 85.0 VBG Base Excess 12.8 Sodium 145 Potassium 3.6 Chloride 105 Carbon Dioxide 34 H Anion Gap 10 L BUN 31 H Creatinine 0.88 Estim Creat Clear Calc 71.6 Estimated GFR > 60 POC Glucose Random Glucose 147 H Calcium 7.6 L Phosphorus 2.4 L Magnesium 2.2 B-Natriuretic Peptide 557 H Blood Type Antibody Screen Crossmatch 12/31/20 12:25 WBC 15.0 H RBC 2.47 L Hgb 7.7 L Hct 24.1 L MCV 97.6 MCH 31.2 MCHC 32.0 RDW 16.9 H Plt Count 135 L MPV 10.7 Immature Gran % (Auto) Neut % (Auto) Lymph % (Auto) [place] % (Auto) Eos % (Auto) Baso % (Auto) Lymph # (Auto) [place] # (Auto) Eos # (Auto) Baso # (Auto) Abs Immat Gran (auto) Absolute Neuts (auto) Absolute Nucleated RBC Nucleated RBC % (auto) Smear Tech's Comments PT INR APTT Fibrinogen O2 Saturation ABG pH at Pt Temp ABG pH (Temp Correct) ABG pCO2 at Pt Temp ABG pCO2 (Temp Corrct ABG pO2 at Pt Temp ABG pO2 (Temp Correct ABG HCO3 ABG Base Excess (Actual) VBG pH VBG pCO2 VBG pO2 VBG HCO3 VBG O2 Saturation VBG Base Excess Sodium Potassium Chloride Carbon Dioxide Anion Gap BUN Creatinine Estim Creat Clear Calc Estimated GFR POC Glucose Random Glucose Calcium Phosphorus Magnesium B-Natriuretic Peptide Blood Type Antibody Screen Crossmatch Microbiology Microbiology Results: Microbiology 12/30/20 06:37 Kidney - Jones Catheter Urine Culture - Final No growth. 12/30/20 06:29 Blood - Venous Blood Culture - Preliminary No growth after 24 hours. 12/30/20 06:20 Blood - Venous Blood Culture - Preliminary No growth after 24 hours. 12/27/20 17:56 Sputum - Suctioned Gram Stain - Final 12/27/20 17:56 Sputum - Suctioned Sputum Culture - Final 12/27/20 17:53 Urine clean catch - Clean Catch Midstream Urine Culture - Final No growth. Progress Note: A&P Assessment and plan (1) Hemothorax on right: Status: Acute (2) Acute hypercapnic respiratory failure due to obstructive sleep apnea: Status: Acute (3) Acute renal failure due to tubular necrosis: Status: Acute (4) Sick sinus syndrome: Status: Acute (5) Symptomatic bradycardia: Status: Acute (6) Sleep apnea: Status: Acute (7) PAF (paroxysmal atrial fibrillation): Status: Acute (8) Cardiac arrest: Status: Acute (9) Metabolic alkalosis: Status: Acute (10) Dysphagia: Status: Acute (11) Heart failure with preserved ejection fraction: Status: Acute (12) Metabolic alkalosis: Status: Acute (13) Hyperkalemia: Status: Acute (14) Hyponatremia: Status: Acute (15) Acute hyponatremia: Status: Acute (16) Fluid overload: Status: Acute (17) Acute diastolic CHF (congestive heart failure): Status: Acute (18) Uncontrolled hypertension: Status: Acute (19) SIADH (syndrome of inappropriate ADH production): Status: Acute Assessment and Plan: Will continue with IV hydration oral feedings as tolerated chest tube remains on drainage as above and awaiting thoracic consult she is in controlled atrial fibrillation and will remain off of anticoagulants until cleared by thoracic surgery but will stay on amiodarone and digoxin maintenance
[2020-12-31 13:23] LABS: SLIDE REVIEW VERIFIED
[2020-12-31 13:24] LABS: Glucose, Whole Blood 146 mg/dL (60-115)
--- NOTE | 2020-12-31 13:29 | MHC.CM.PN ---
Pt remains in ICU after emergent chest tube placement and reintubation d/t rising CO2 levels secondary to large pleural effusion. Pt produced 2.5 liters of bloody pleural output with some improvement in condition. MD expects her to continue to make progress and attempts will be made to extubate. Pt with chest trauma secondary to CPR. Awaiting thoracic surgeon consult. Original d/c plan was for a transfer to SNF - clincial updates remitted: [facility] showing interest. Pt will need a PT eval once she can participate. Family has been in to visit. CM to follow
[2020-12-31 14:12] LABS: HIT-Patient Optical Density 0.322 OD UNITS (<OR= 0.300); Heparin Induced Plt Ab WEAK POSITIVE (NEGATIVE)
[2020-12-31 16:25] LABS: Basophils Percent Auto 0.1 % (0-2); Hematocrit 24.8 % (37-47); Hemoglobin 7.8 g/dl (12.0-16.0); Imm Gran Abs Auto 0.15 X10*3/uL (0.00-0.03); Lymphocytes Absolute Auto 0.4 X10*3/uL (1.2-4.9); Lymphocytes Percent Auto 2.5 % (20-40); MANUAL DIFF FLAG SCAN; Mean Corpuscular HGB Conc 31.5 g/dl (31.0-35.0); Mean Corpuscular Hemoglobin 30.7 pg (27.0-33.0); Mean Corpuscular Volume 97.6 fL (80-98); Mean Platelet Volume 10.1 fL (9.4-12.3); Monocytes Absolute Auto 1.2 X10*3/uL (0.1-1.2); Monocytes Percent Auto 8.1 % (2-11); NRBC Pct Auto 0.1 /100WBC (0.0-0.2); Neutrophils Absolute Auto 12.8 X10*3/uL (2.0-8.3); Neutrophils Percent Auto 88.3 % (45-73); Platelet Count 127 X10*3/uL (160-400); Red Blood Count 2.54 X10*6/uL (4.20-5.50); SCAN SMEAR FLAG 1; White Blood Count 14.5 X10*3/uL (4.8-10.8)
[2020-12-31] MEDS: Piperacillin Sodium/Tazobactam 4.5 GM in 0.9 % Sodium Chloride 100 ML IV (17:52)
[2020-12-31 18:05] LABS: Glucose, Whole Blood 148 mg/dL (60-115)
--- NOTE | 2020-12-31 19:54 | PC.NURSE ---
assumed care at 0700. patient alert and follows commands on 40 of propofol gtt, this was titrated between 40 and 50 today for patient's comfort. Patient has ETT 7.5 and 25 cm dawit, AC settings 18; 500; 40%; peep 8; Spo2 in mid 90's, patient synchronous, minute volumes around 8-9; CVP around 8-9. Blood tinged inline secretions continue, MD aware; sputum cx sent; patient has had slight temperature 100.4 max, MD aware. Patient has right anterior axillary chest tube, dressing was reinforces posteriorly and distally today; outputs decreased over course of day, sanguineous; outputs were reported to thoracic PA. Patient otheswise fairly stable, Levophed was titrated at first per Cardiology, as SBP was elevated, but MD gave goal of MAP >70, which was used to guide titration of levophed. Patient's HR was in 130's this morning, now rate is controlled, afib all day, status post two doses of digoxin. Skin issues include +4 edema to left lower arm, +3 edema to right lower arm, +3 edema to bilateral hips, reddened bruise to right lower abdomen, bruising to left lower abdomen, bruising to right dorsal hand, bruising to left hip, and blanchable redness to bilateral buttocks.
[2020-12-31 21:21] LABS: Basophils Percent Auto 0.1 % (0-2); Hematocrit 24.6 % (37-47); Hemoglobin 7.9 g/dl (12.0-16.0); Imm Gran Pct Auto 1.4 % (0.0-0.4); Lymphocytes Absolute Auto 0.5 X10*3/uL (1.2-4.9); Lymphocytes Percent Auto 3.3 % (20-40); MANUAL DIFF FLAG SCAN; Mean Corpuscular HGB Conc 32.1 g/dl (31.0-35.0); Mean Corpuscular Hemoglobin 31.6 pg (27.0-33.0); Mean Corpuscular Volume 98.4 fL (80-98); Mean Platelet Volume 10.6 fL (9.4-12.3); Monocytes Absolute Auto 1.2 X10*3/uL (0.1-1.2); Monocytes Percent Auto 8.5 % (2-11); NRBC Pct Auto 0.2 /100WBC (0.0-0.2); Neutrophils Absolute Auto 12.7 X10*3/uL (2.0-8.3); Neutrophils Percent Auto 86.7 % (45-73); Platelet Count 127 X10*3/uL (160-400); Red Cell Distribution Width 16.7 % (11.0-16.0); SCAN SMEAR FLAG 1; White Blood Count 14.7 X10*3/uL (4.8-10.8)
[2020-12-31 21:42] LABS: SLIDE REVIEW VERIFIED
[2020-12-31 21:50] LABS: VBG Base Excess 14.3 mmol/L; VBG HCO3 38 mmol/L (22-26); VBG pCO2 49 mmHg; VBG pO2 47 mmHg
[2020-12-31 21:53] LABS: Venous Blood Gas Refer to POC result
[2020-12-31 22:17] LABS: Anion Gap 12 (12-20); Blood Urea Nitrogen 27 mg/dL (9-16); Calcium 7.5 mg/dL (8.4-10.2); Carbon Dioxide 31 mmol/L (22-29); Chloride 106 mmol/L (96-108); Creatinine Clr Calc Pharmacy 86.3; Estimated Glomerular Filt Rate > 60; Glucose Random 152 mg/dL (60-115); Potassium 3.7 mmol/L (3.3-5.1); Sodium 145 mmol/L (135-145)
[2020-12-31] MEDS: HYDROmorphone HCl 0.5 MG/0.5 ML SYRINGE IVPUSH (22:18)
[2020-12-31 22:25] LABS: B Type Natriuretic Peptide 925 pg/mL (<100)
[2020-12-31] MEDS: Furosemide 20 MG/2 ML VIAL IVPUSH (23:27)
[2020-12-31] MEDS: propofoL 1,000 MG/100 ML VIAL 33 MG IVCONT (23:54)
[2021-01-01] VITALS (37 sets, daily range): BP systolic 104–178; BP diastolic 30–65; PULSE 70–138; RESP 17–27; TEMP 37.7–38.6; O2SAT 93–99
[2021-01-01] MEDS: Piperacillin Sodium/Tazobactam 4.5 GM in 0.9 % Sodium Chloride 100 ML IV ×4 (00:36→23:47)
[2021-01-01 00:43] LABS: Glucose, Whole Blood 140 mg/dL (60-115)
[2021-01-01] MEDS: Amiodarone HCL 900 MG in 0.9 % Sodium Chloride 500 ML 17.27 MG IVCONT (02:09)
[2021-01-01] MEDS: propofoL 1,000 MG/100 ML VIAL 33.07 MG IVCONT ×2 (02:09→05:29)
[2021-01-01 05:11] LABS: VBG Base Excess 16.4 mmol/L; VBG HCO3 41 mmol/L (22-26); VBG pCO2 55 mmHg; VBG pH 7.48 (7.32-7.43); VBG pO2 41 mmHg
[2021-01-01 06:16] LABS: Basophils Percent Auto 0.1 % (0-2); Eosinophils Percent Auto 0.2 % (0-4); Hematocrit 23.9 % (37-47); Hemoglobin 7.4 g/dl (12.0-16.0); Imm Gran Abs Auto 0.19 X10*3/uL (0.00-0.03); Imm Gran Pct Auto 1.5 % (0.0-0.4); Lymphocytes Absolute Auto 0.5 X10*3/uL (1.2-4.9); Lymphocytes Percent Auto 3.6 % (20-40); MANUAL DIFF FLAG SCAN; Mean Corpuscular Hemoglobin 30.6 pg (27.0-33.0); Mean Corpuscular Volume 98.8 fL (80-98); Mean Platelet Volume 10.9 fL (9.4-12.3); Monocytes Absolute Auto 1.2 X10*3/uL (0.1-1.2); Monocytes Percent Auto 9.6 % (2-11); NRBC Pct Auto 0.3 /100WBC (0.0-0.2); Neutrophils Absolute Auto 10.7 X10*3/uL (2.0-8.3); Platelet Count 125 X10*3/uL (160-400); Red Blood Count 2.42 X10*6/uL (4.20-5.50); Red Cell Distribution Width 16.6 % (11.0-16.0); SCAN SMEAR FLAG 1; White Blood Count 12.6 X10*3/uL (4.8-10.8)
[2021-01-01 06:26] LABS: INTERNATIONAL NORM RATIO 1.2 (0.9-1.1); Prothrombin Time 14.1 SEC (10.8-13.0)
[2021-01-01 06:28] LABS: Partial Thromboplastin Time 24.5 SEC (24.1-38.0)
[2021-01-01 06:41] LABS: B Type Natriuretic Peptide 839 pg/mL (<100); Venous Blood Gas Refer to POC result
[2021-01-01 06:44] LABS: SLIDE REVIEW VERIFIED
[2021-01-01 07:09] LABS: Anion Gap 11 (12-20); Blood Urea Nitrogen 26 mg/dL (9-16); Calcium 7.3 mg/dL (8.4-10.2); Carbon Dioxide 32 mmol/L (22-29); Chloride 107 mmol/L (96-108); Creatinine Clr Calc Pharmacy 82.9; Estimated Glomerular Filt Rate > 60; Glucose Random 131 mg/dL (60-115); Phosphorus 1.9 mg/dL (2.7-4.5); Potassium 3.4 mmol/L (3.3-5.1); Sodium 147 mmol/L (135-145)
[2021-01-01] MEDS: Albuterol/Iprat 2.5/0.5MG 3 ML AMPUL.NEB INHALE ×4 (07:25→19:39)
[2021-01-01] MEDS: dexmedeTOMIDidine HCL/NS 400 MCG/100 ML INFUS..BTL 41.33 MCG IVCONT ×2 (08:46→10:40)
[2021-01-01] MEDS: Famotidine/PF 20 MG/2 ML VIAL IVPUSH (08:50)
[2021-01-01] MEDS: Chlorhexidine Gluc Oral Rinse 15 ML MOUTHWASH BUCCAL ×3 (08:51→20:57)
[2021-01-01] MEDS: 0.9 % Sodium Chloride Flush 3 ML SYRINGE IVFLUSH ×2 (08:52→15:38)
[2021-01-01 09:03] LABS: Glucose, Whole Blood 128 mg/dL (60-115)
--- NOTE | 2021-01-01 10:36 | MHC.CLN ---
F/U PT RECEIVING TF GLUCERNA AT MAX GOAL RATE 50CC/HR WITH 120CC FREE WATER FLUSHES Q 6HRS PROVIDES 1200KCALS (20KCALS/KG BASED ON IBW), 50G PROTEIN (.8G/KG), 1504CC TOTAL WATER (25CC/KG) PT CURRENTLY AT 50CC/HR AND TOLERATING WELL PER NSG MONITOR TOLERANCE, RESIDUALS AND LYTES
--- NOTE | 2021-01-01 11:15 | PM.CCPN ---
Subjective Subjective Date of Service: 01/01/21 Interval History: 75-year-old female developed acute on chronic hypercarbic room and hypoxic respiratory failure with progressive encephalopathy and then ultimately bradycardia and required 10 minutes CPR with intubation and currently with diminishing white count but persistent low-grade temperature with sputum cultures pending but covered for nosocomial infection and right-sided chest tube shows significant clearing of right effusion now draining about 10 cc/hour it this was satting Witness and if there was not an ensuing 4 g drop in hemoglobin and this is being corrected by transfusion and she is now wake on alert within 24 hours of discontinuation of chest tube and is currently on a pressure support trial Critical Care Time (minutes): 40 Comment: Will remain off of propofol and on dexmedetomidine for behavioral control and work on weaning both chest tube and extubating Physical Exam Vital Signs: Vital Signs: Last Vital Signs Temp 101.1 F H 01/01/21 10:56 Pulse 72 01/01/21 11:05 Resp 17 01/01/21 10:56 BP 141/50 H 01/01/21 11:05 Pulse Ox 97 01/01/21 10:56 Oxygen Flow Rate 2 12/26/20 15:00 Body Mass Index 39.2 Const: Other: Awake and demonstrating cognitive function and nonfocal neurologically Stable CVP of 9 but mildly hypernatremic therefore needing increased free water but good bilateral carotid upstrokes controlled atrial fibrillation rate 80 on IV amiodarone Chest without adventitious sounds Abdomen benign and tolerating feedings with good bowel sounds Objective Data Labs CBC & Chem 7: 01/01/21 06:07 01/01/21 05:00 Labs: Laboratory Results - last 24 hr 12/29/20 12/30/20 12/31/20 21:16 09:15 12:25 WBC 15.0 H RBC 2.47 L Hgb 7.7 L Hct 24.1 L MCV 97.6 MCH 31.2 MCHC 32.0 RDW 16.9 H Plt Count 135 L MPV 10.7 Immature Gran % (Auto) 0.9 H Neut % (Auto) 89.4 H Lymph % (Auto) 2.2 L [place] % (Auto) 7.5 Eos % (Auto) 0.0 Baso % (Auto) 0.0 Lymph # (Auto) 0.3 L [place] # (Auto) 1.1 Eos # (Auto) 0.0 Baso # (Auto) 0.0 Abs Immat Gran (auto) 0.13 H Absolute Neuts (auto) 13.5 H Absolute Nucleated RBC 0.020 H Nucleated RBC % (auto) 0.1 Smear Tech's Comments VERIFIED PT INR APTT Hep-Ind Thrombocytop Com See Below VBG pH VBG pCO2 VBG pO2 VBG HCO3 VBG O2 Saturation VBG Base Excess Sodium Potassium Chloride Carbon Dioxide Anion Gap BUN Creatinine Estim Creat Clear Calc Estimated GFR POC Glucose Random Glucose Calcium Phosphorus Magnesium B-Natriuretic Peptide Heparin Dep Plt Ab OD 0.322 H Hep-Induced Plt Ab Daniela WEAK POSITIVE A Blood Type O Positive Antibody Screen NEGATIVE Crossmatch See Detail 12/31/20 12/31/20 12/31/20 13:21 16:16 18:02 WBC 14.5 H RBC 2.54 L Hgb 7.8 L Hct 24.8 L MCV 97.6 MCH 30.7 MCHC 31.5 RDW 17.0 H Plt Count 127 L MPV 10.1 Immature Gran % (Auto) 1.0 H Neut % (Auto) 88.3 H Lymph % (Auto) 2.5 L [place] % (Auto) 8.1 Eos % (Auto) 0.0 Baso % (Auto) 0.1 Lymph # (Auto) 0.4 L [place] # (Auto) 1.2 Eos # (Auto) 0.0 Baso # (Auto) 0.0 Abs Immat Gran (auto) 0.15 H Absolute Neuts (auto) 12.8 H Absolute Nucleated RBC 0.020 H Nucleated RBC % (auto) 0.1 Smear Tech's Comments PT INR APTT Hep-Ind Thrombocytop Com VBG pH VBG pCO2 VBG pO2 VBG HCO3 VBG O2 Saturation VBG Base Excess Sodium Potassium Chloride Carbon Dioxide Anion Gap BUN Creatinine Estim Creat Clear Calc Estimated GFR POC Glucose 146 H 148 H Random Glucose Calcium Phosphorus Magnesium B-Natriuretic Peptide Heparin Dep Plt Ab OD Hep-Induced Plt Ab Daniela Blood Type Antibody Screen Crossmatch 12/31/20 12/31/20 12/31/20 21:00 21:43 21:44 WBC 14.7 H RBC 2.50 L Hgb 7.9 L Hct 24.6 L MCV 98.4 H MCH 31.6 MCHC 32.1 RDW 16.7 H Plt Count 127 L MPV 10.6 Immature Gran % (Auto) 1.4 H Neut % (Auto) 86.7 H Lymph % (Auto) 3.3 L [place] % (Auto) 8.5 Eos % (Auto) 0.0 Baso % (Auto) 0.1 Lymph # (Auto) 0.5 L [place] # (Auto) 1.2 Eos # (Auto) 0.0 Baso # (Auto) 0.0 Abs Immat Gran (auto) 0.20 H Absolute Neuts (auto) 12.7 H Absolute Nucleated RBC 0.030 H Nucleated RBC % (auto) 0.2 Smear Tech's Comments VERIFIED PT INR APTT Hep-Ind Thrombocytop Com VBG pH 7.50 H VBG pCO2 49 VBG pO2 47 VBG HCO3 38 H VBG O2 Saturation 81.0 VBG Base Excess 14.3 Sodium 145 Potassium 3.7 Chloride 106 Carbon Dioxide 31 H Anion Gap 12 BUN 27 H Creatinine 0.73 Estim Creat Clear Calc 86.3 Estimated GFR > 60 POC Glucose Random Glucose 152 H Calcium 7.5 L Phosphorus Magnesium B-Natriuretic Peptide Heparin Dep Plt Ab OD Hep-Induced Plt Ab Daniela Blood Type Antibody Screen Crossmatch 12/31/20 01/01/21 01/01/21 21:44 00:29 05:00 WBC RBC Hgb Hct MCV MCH MCHC RDW Plt Count MPV Immature Gran % (Auto) Neut % (Auto) Lymph % (Auto) [place] % (Auto) Eos % (Auto) Baso % (Auto) Lymph # (Auto) [place] # (Auto) Eos # (Auto) Baso # (Auto) Abs Immat Gran (auto) Absolute Neuts (auto) Absolute Nucleated RBC Nucleated RBC % (auto) Smear Tech's Comments PT 14.1 H INR 1.2 H APTT 24.5 Hep-Ind Thrombocytop Com VBG pH VBG pCO2 VBG pO2 VBG HCO3 VBG O2 Saturation VBG Base Excess Sodium Potassium Chloride Carbon Dioxide Anion Gap BUN Creatinine Estim Creat Clear Calc Estimated GFR POC Glucose 140 H Random Glucose Calcium Phosphorus Magnesium B-Natriuretic Peptide 925 H Heparin Dep Plt Ab OD Hep-Induced Plt Ab Daniela Blood Type Antibody Screen Crossmatch 01/01/21 01/01/21 01/01/21 05:00 05:00 05:04 WBC RBC Hgb Hct MCV MCH MCHC RDW Plt Count MPV Immature Gran % (Auto) Neut % (Auto) Lymph % (Auto) [place] % (Auto) Eos % (Auto) Baso % (Auto) Lymph # (Auto) [place] # (Auto) Eos # (Auto) Baso # (Auto) Abs Immat Gran (auto) Absolute Neuts (auto) Absolute Nucleated RBC Nucleated RBC % (auto) Smear Tech's Comments PT INR APTT Hep-Ind Thrombocytop Com VBG pH 7.48 H VBG pCO2 55 VBG pO2 41 VBG HCO3 41 H VBG O2 Saturation 69.0 VBG Base Excess 16.4 Sodium 147 H Potassium 3.4 Chloride 107 Carbon Dioxide 32 H Anion Gap 11 L BUN 26 H Creatinine 0.76 Estim Creat Clear Calc 82.9 Estimated GFR > 60 POC Glucose Random Glucose 131 H Calcium 7.3 L Phosphorus 1.9 L Magnesium 2.0 B-Natriuretic Peptide 839 H Heparin Dep Plt Ab OD Hep-Induced Plt Ab Daniela Blood Type Antibody Screen Crossmatch 01/01/21 01/01/21 06:07 08:57 WBC 12.6 H RBC 2.42 L Hgb 7.4 L Hct 23.9 L MCV 98.8 H MCH 30.6 MCHC 31.0 RDW 16.6 H Plt Count 125 L MPV 10.9 Immature Gran % (Auto) 1.5 H Neut % (Auto) 85.0 H Lymph % (Auto) 3.6 L [place] % (Auto) 9.6 Eos % (Auto) 0.2 Baso % (Auto) 0.1 Lymph # (Auto) 0.5 L [place] # (Auto) 1.2 Eos # (Auto) 0.0 Baso # (Auto) 0.0 Abs Immat Gran (auto) 0.19 H Absolute Neuts (auto) 10.7 H Absolute Nucleated RBC 0.040 H Nucleated RBC % (auto) 0.3 H Smear Tech's Comments VERIFIED PT INR APTT Hep-Ind Thrombocytop Com VBG pH VBG pCO2 VBG pO2 VBG HCO3 VBG O2 Saturation VBG Base Excess Sodium Potassium Chloride Carbon Dioxide Anion Gap BUN Creatinine Estim Creat Clear Calc Estimated GFR POC Glucose 128 H Random Glucose Calcium Phosphorus Magnesium B-Natriuretic Peptide Heparin Dep Plt Ab OD Hep-Induced Plt Ab Daniela Blood Type Antibody Screen Crossmatch Microbiology Microbiology Results: Microbiology 12/30/20 06:29 Blood - Venous Blood Culture - Preliminary No growth after 48 hours. 12/30/20 06:20 Blood - Venous Blood Culture - Preliminary No growth after 48 hours. 12/31/20 15:59 Sputum - Suctioned Gram Stain - Final 12/31/20 15:59 Sputum - Suctioned Sputum Culture - Preliminary No growth to date. 12/30/20 06:37 Kidney - Jones Catheter Urine Culture - Final No growth. 12/27/20 17:56 Sputum - Suctioned Gram Stain - Final 12/27/20 17:56 Sputum - Suctioned Sputum Culture - Final 12/27/20 17:53 Urine clean catch - Clean Catch Midstream Urine Culture - Final No growth. Progress Note: A&P Assessment and plan (1) Hemothorax on right: Status: Acute (2) Acute hypercapnic respiratory failure due to obstructive sleep apnea: Status: Acute (3) Acute renal failure due to tubular necrosis: Status: Acute (4) Sick sinus syndrome: Status: Acute (5) Symptomatic bradycardia: Status: Acute (6) Sleep apnea: Status: Acute (7) PAF (paroxysmal atrial fibrillation): Status: Acute (8) Cardiac arrest: Status: Acute (9) Metabolic alkalosis: Status: Acute (10) Dysphagia: Status: Acute (11) Heart failure with preserved ejection fraction: Status: Acute (12) Metabolic alkalosis: Status: Acute (13) Hyperkalemia: Status: Acute (14) Hyponatremia: Status: Acute (15) CHF (congestive heart failure): Status: Acute (16) Acute hyponatremia: Status: Acute (17) Fluid overload: Status: Acute (18) Acute diastolic CHF (congestive heart failure): Status: Acute (19) Uncontrolled hypertension: Status: Acute (20) SIADH (syndrome of inappropriate ADH production): Status: Acute Assessment and Plan: The plan is to maintain pressure support and periodically rest her follow chest tube
--- NOTE | 2021-01-01 11:34 | PM.PNCARD ---
Subjective Subjective Date of Service: 01/01/21 Interval history: Still inutbated Review of Systems Review of Systems Yes unobtainable due to endotracheal tube and Unobtainable due to mental condition Physical Exam Vital Signs: Last Vital Signs Temp 101.1 F H 01/01/21 10:56 Pulse 72 01/01/21 11:05 Resp 17 01/01/21 10:56 BP 141/50 H 01/01/21 11:05 Pulse Ox 97 01/01/21 10:56 Oxygen Flow Rate 2 12/26/20 15:00 Body Mass Index 39.2 Const General: no acute distress [facility] Other: Unremarkable Neck Neck: Yes normal visual inspection Chest Chest palpation & inspection: normal inspection of the chest Resp Auscultation: clear to auscultation bilaterally, no crackles and no wheezes Cardio Jugular venous distension: no JVD Palpation: normal PMI Heart sounds: S1 normal heart sound present, S2 normal heart sound present, no gallops, no murmurs and no rubs GI Palpation (GI): Soft to palpation Back/Spine/Pelvis Other: unremarkable Skin General skin exam: no rashes or lesions noted Extrem General: Yes no clubbing, cyanosis or edema Psych Other: intubated and cannot assess Results Labs and Meds Result diagrams: 01/01/21 06:07 01/01/21 05:00 Lab results: Laboratory Results - last 24 hr 12/29/20 12/30/20 12/31/20 21:16 09:15 12:25 WBC 15.0 H RBC 2.47 L Hgb 7.7 L Hct 24.1 L MCV 97.6 MCH 31.2 MCHC 32.0 RDW 16.9 H Plt Count 135 L MPV 10.7 Immature Gran % (Auto) 0.9 H Neut % (Auto) 89.4 H Lymph % (Auto) 2.2 L [place] % (Auto) 7.5 Eos % (Auto) 0.0 Baso % (Auto) 0.0 Lymph # (Auto) 0.3 L [place] # (Auto) 1.1 Eos # (Auto) 0.0 Baso # (Auto) 0.0 Abs Immat Gran (auto) 0.13 H Absolute Neuts (auto) 13.5 H Absolute Nucleated RBC 0.020 H Nucleated RBC % (auto) 0.1 Smear Tech's Comments VERIFIED PT INR APTT Hep-Ind Thrombocytop Com See Below VBG pH VBG pCO2 VBG pO2 VBG HCO3 VBG O2 Saturation VBG Base Excess Sodium Potassium Chloride Carbon Dioxide Anion Gap BUN Creatinine Estim Creat Clear Calc Estimated GFR POC Glucose Random Glucose Calcium Phosphorus Magnesium B-Natriuretic Peptide Heparin Dep Plt Ab OD 0.322 H Hep-Induced Plt Ab Daniela WEAK POSITIVE A Blood Type O Positive Antibody Screen NEGATIVE Crossmatch See Detail 12/31/20 12/31/20 12/31/20 13:21 16:16 18:02 WBC 14.5 H RBC 2.54 L Hgb 7.8 L Hct 24.8 L MCV 97.6 MCH 30.7 MCHC 31.5 RDW 17.0 H Plt Count 127 L MPV 10.1 Immature Gran % (Auto) 1.0 H Neut % (Auto) 88.3 H Lymph % (Auto) 2.5 L [place] % (Auto) 8.1 Eos % (Auto) 0.0 Baso % (Auto) 0.1 Lymph # (Auto) 0.4 L [place] # (Auto) 1.2 Eos # (Auto) 0.0 Baso # (Auto) 0.0 Abs Immat Gran (auto) 0.15 H Absolute Neuts (auto) 12.8 H Absolute Nucleated RBC 0.020 H Nucleated RBC % (auto) 0.1 Smear Tech's Comments PT INR APTT Hep-Ind Thrombocytop Com VBG pH VBG pCO2 VBG pO2 VBG HCO3 VBG O2 Saturation VBG Base Excess Sodium Potassium Chloride Carbon Dioxide Anion Gap BUN Creatinine Estim Creat Clear Calc Estimated GFR POC Glucose 146 H 148 H Random Glucose Calcium Phosphorus Magnesium B-Natriuretic Peptide Heparin Dep Plt Ab OD Hep-Induced Plt Ab Daniela Blood Type Antibody Screen Crossmatch 12/31/20 12/31/20 12/31/20 21:00 21:43 21:44 WBC 14.7 H RBC 2.50 L Hgb 7.9 L Hct 24.6 L MCV 98.4 H MCH 31.6 MCHC 32.1 RDW 16.7 H Plt Count 127 L MPV 10.6 Immature Gran % (Auto) 1.4 H Neut % (Auto) 86.7 H Lymph % (Auto) 3.3 L [place] % (Auto) 8.5 Eos % (Auto) 0.0 Baso % (Auto) 0.1 Lymph # (Auto) 0.5 L [place] # (Auto) 1.2 Eos # (Auto) 0.0 Baso # (Auto) 0.0 Abs Immat Gran (auto) 0.20 H Absolute Neuts (auto) 12.7 H Absolute Nucleated RBC 0.030 H Nucleated RBC % (auto) 0.2 Smear Tech's Comments VERIFIED PT INR APTT Hep-Ind Thrombocytop Com VBG pH 7.50 H VBG pCO2 49 VBG pO2 47 VBG HCO3 38 H VBG O2 Saturation 81.0 VBG Base Excess 14.3 Sodium 145 Potassium 3.7 Chloride 106 Carbon Dioxide 31 H Anion Gap 12 BUN 27 H Creatinine 0.73 Estim Creat Clear Calc 86.3 Estimated GFR > 60 POC Glucose Random Glucose 152 H Calcium 7.5 L Phosphorus Magnesium B-Natriuretic Peptide Heparin Dep Plt Ab OD Hep-Induced Plt Ab Daniela Blood Type Antibody Screen Crossmatch 12/31/20 01/01/21 01/01/21 21:44 00:29 05:00 WBC RBC Hgb Hct MCV MCH MCHC RDW Plt Count MPV Immature Gran % (Auto) Neut % (Auto) Lymph % (Auto) [place] % (Auto) Eos % (Auto) Baso % (Auto) Lymph # (Auto) [place] # (Auto) Eos # (Auto) Baso # (Auto) Abs Immat Gran (auto) Absolute Neuts (auto) Absolute Nucleated RBC Nucleated RBC % (auto) Smear Tech's Comments PT 14.1 H INR 1.2 H APTT 24.5 Hep-Ind Thrombocytop Com VBG pH VBG pCO2 VBG pO2 VBG HCO3 VBG O2 Saturation VBG Base Excess Sodium Potassium Chloride Carbon Dioxide Anion Gap BUN Creatinine Estim Creat Clear Calc Estimated GFR POC Glucose 140 H Random Glucose Calcium Phosphorus Magnesium B-Natriuretic Peptide 925 H Heparin Dep Plt Ab OD Hep-Induced Plt Ab Daniela Blood Type Antibody Screen Crossmatch 01/01/21 01/01/21 01/01/21 05:00 05:00 05:04 WBC RBC Hgb Hct MCV MCH MCHC RDW Plt Count MPV Immature Gran % (Auto) Neut % (Auto) Lymph % (Auto) [place] % (Auto) Eos % (Auto) Baso % (Auto) Lymph # (Auto) [place] # (Auto) Eos # (Auto) Baso # (Auto) Abs Immat Gran (auto) Absolute Neuts (auto) Absolute Nucleated RBC Nucleated RBC % (auto) Smear Tech's Comments PT INR APTT Hep-Ind Thrombocytop Com VBG pH 7.48 H VBG pCO2 55 VBG pO2 41 VBG HCO3 41 H VBG O2 Saturation 69.0 VBG Base Excess 16.4 Sodium 147 H Potassium 3.4 Chloride 107 Carbon Dioxide 32 H Anion Gap 11 L BUN 26 H Creatinine 0.76 Estim Creat Clear Calc 82.9 Estimated GFR > 60 POC Glucose Random Glucose 131 H Calcium 7.3 L Phosphorus 1.9 L Magnesium 2.0 B-Natriuretic Peptide 839 H Heparin Dep Plt Ab OD Hep-Induced Plt Ab Daniela Blood Type Antibody Screen Crossmatch 01/01/21 01/01/21 06:07 08:57 WBC 12.6 H RBC 2.42 L Hgb 7.4 L Hct 23.9 L MCV 98.8 H MCH 30.6 MCHC 31.0 RDW 16.6 H Plt Count 125 L MPV 10.9 Immature Gran % (Auto) 1.5 H Neut % (Auto) 85.0 H Lymph % (Auto) 3.6 L [place] % (Auto) 9.6 Eos % (Auto) 0.2 Baso % (Auto) 0.1 Lymph # (Auto) 0.5 L [place] # (Auto) 1.2 Eos # (Auto) 0.0 Baso # (Auto) 0.0 Abs Immat Gran (auto) 0.19 H Absolute Neuts (auto) 10.7 H Absolute Nucleated RBC 0.040 H Nucleated RBC % (auto) 0.3 H Smear Tech's Comments VERIFIED PT INR APTT Hep-Ind Thrombocytop Com VBG pH VBG pCO2 VBG pO2 VBG HCO3 VBG O2 Saturation VBG Base Excess Sodium Potassium Chloride Carbon Dioxide Anion Gap BUN Creatinine Estim Creat Clear Calc Estimated GFR POC Glucose 128 H Random Glucose Calcium Phosphorus Magnesium B-Natriuretic Peptide Heparin Dep Plt Ab OD Hep-Induced Plt Ab Daniela Blood Type Antibody Screen Crossmatch Imaging Radiologist's impression: Impressions Chest X-Ray 01/01/21 06:00 IMPRESSION: Increased hazy bibasilar opacities suggestive of small pleural effusions with associated atelectasis/pneumonia. Endotracheal tube terminating 3 cm above the yunier. Progress Note: A&P Assessment and plan (1) Cardiac arrest: Status: Acute (2) Heart failure with preserved ejection fraction: Status: Acute (3) PAF (paroxysmal atrial fibrillation): Status: Acute Assessment and Plan: Probable initial respiratory event leading to atrial fibrillation with slow ventricular rate which in turn led to ventricular fibrillation/cardiac arrest. Successfully resuscitated. She is off flecainide. Has been on amiodarone drip but in spite of this it appears that she went into atrial fibrillation with rapid rate. Currently she is in atrial fibrillation at about 70/Min. However, she has been off anticoagulation due to concern for thoracic bleeding. Hence in this setting, cardioversion is going to be difficult if we cannot anticoagulate her. May continue amiodarone with intention to at least control the rate. Consider adding digoxin on other rate-controlling drugs to slow her down. If anticoagulation issue can be resolved then potentially cardioversion at some point vs manage with rate control only. Fall Risk Details Current Medications: Current Medications Generic Name Dose Route Start Last Admin Trade Name Freq PRN Reason Stop Dose Admin Albuterol/Ipratropium 3 ml 12/28/20 20:00 01/01/21 11:33 Albuterol/Iprat 2.5/0.5mg 3 Ml Ampul.Neb INHALE 3 ml RQ4H WHILE AWAKE DEE Administration Chlorhexidine Gluconate 15 ml 12/30/20 21:30 01/01/21 08:51 Chlorhexidine Gluc Oral Rinse 15 Ml Mouthwash BUCCAL 15 ml TID DEE Administration Famotidine 20 mg 12/29/20 09:00 01/01/21 08:50 Famotidine/Pf 20 Mg/2 Ml Vial IVPUSH 20 mg DAILY DEE Administration Hydromorphone HCl 0.5 mg 12/31/20 21:41 12/31/20 22:18 Hydromorphone Hcl 0.5 Mg/0.5 Ml Syringe IVPUSH 0.5 mg Q4H PRN Administration Pain, Severe (Pain Scale 7-10) Amiodarone HCl 900 mg/ Sodium 518 mls @ 17.267 mls/hr 12/28/20 10:30 01/01/21 02:09 Chloride IVCONT 0.5 mg/min .Q24H DEE 17.27 mls/hr Administration Protocol 0.5 MG/MIN Norepinephrine Bitartrate 8 mg in 250 mls @ 0 mls/hr 12/28/20 17:30 01/01/21 11:05 Levophed IVCONT 0 mcg/kg/min .Q0M DEE 0 mls/hr Titration Protocol Per Protocol Potassium Chloride 20 meq/ 1,010 mls @ 42 mls/hr 12/30/20 08:00 01/01/21 11:03 Lactated Ringer's IVCONT 42 mls/hr .Q24H DEE Administration Piperacillin Sod/Tazobactam 100 mls @ 200 mls/hr 12/31/20 16:00 01/01/21 10:39 Sod 4.5 gm/ Sodium Chloride IV Infused Q8H DEE Infusion Dexmedetomidine HCl 400 mcg in 100 mls @ 0 mls/hr 01/01/21 07:45 01/01/21 11:13 Precedex IVCONT 1 mcg/kg/hr .Q0M DEE 27.56 mls/hr Titration Protocol Per Protocol Insulin Human Lispro 0 unit 12/28/20 12:00 01/01/21 09:11 Insulin Lispro 100 Unit/Ml 3 Ml Vial SUBCUT Not Given Q6H DEE Protocol Pharmacy Consult 1 each 12/31/20 14:54 Consult Rx Vancomycin Dosing MISCELLANE DAILY PRN Consult order Sodium Chloride 3 ml 12/14/20 00:00 01/01/21 08:52 0.9 % Sodium Chloride Flush 3 Ml Syringe IVFLUSH 3 ml QSHIFT DEE Administration Time Spent With Patient Time: Total time spent is greater than 50% in coordination of care (as documented) at patient's floor/unit and/or counseling patient: Time with patient: less than 15 minutes Procedures Date of Service Date of Service: 01/01/21
[2021-01-01 12:54] LABS: Glucose, Whole Blood 129 mg/dL (60-115)
[2021-01-01] MEDS: Potassium Chloride Packet 20 MEQ PACKET 40 MEQ PO (13:02)
[2021-01-01] MEDS: dexmedeTOMIDidine HCL/NS 400 MCG/100 ML INFUS..BTL 27.56 MCG IVCONT ×2 (13:55→17:43)
--- NOTE | 2021-01-01 15:59 | PM.PNTS ---
Subjective Subjective Date of Service: 01/01/21 Physical Exam Vital Signs: Vital Signs: Last Vital Signs Temp 101.1 F H 01/01/21 15:00 Pulse 70 01/01/21 15:29 Resp 18 01/01/21 15:00 BP 139/49 L 01/01/21 15:00 Pulse Ox 96 01/01/21 15:00 Oxygen Flow Rate 2 12/26/20 15:00 Body Mass Index 39.2 Const: Other: Intubated, appears comfortable HENMT: Head: Yes normal to inspection and Yes normocephalic Eyes: General: appearance normal, both eyes and all related structures Neck: Neck: Yes trachea midline and Yes no JVD Chest: Other: RS chest tube remains indwelling, secure with dressing CDI. Attached to [facility] reservoir with no detectable air leak and 150 cc sanguinous fluid output overnight from 12:00 am until 9:00 am. Resp: Auscultation: clear to auscultation bilaterally Cardio: Rate: tachycardic Rhythm: abnormal rhythm Heart sounds: S1 normal heart sound present and S2 normal heart sound present GI: Other: Obese, soft and nontender : Other: Jones catheter reminas inplace Progress Note: A&P Assessment and plan (1) Hemothorax on right: Status: Acute Assessment and Plan: Pt is a 75-year-old female with a past medical history of type 2 diabetes, morbid obesity, COPD, CHF, atrial fibrillation with a home regimen of Eliquis who was admitted for weakness and probable acute on chronic diastolic heart failure. On 12/27/20, patient had a PEA arrest resulting in trauma to the chest cavity following 10 mins of CPR with findings on chest CT of left-sided rib fractures 2-7 and right-sided hemothorax. Now s/p R pigtail chest tube placement on 12/30/20. Chest CT on 12/30/20 showed moderate to large right pleural effusion with small left pleural effusion and bilateral ground glass opacities to bilateral upper lobes. Also noted to have multiple left anterior rib fractures to left anterior rib fractures involving the left second to seventh anterior ribs. Also noted to have ? hematoma of left lateral chest. A chest tube was placed by Dr. Franklni on 12/30/20 after findings on CXR showed large right pleural effusion vs hemothorax. Patient has had approximately 150 cc of saguinous drainage overnight from 12 - 9am. Chest tube should remain indwelling until fluid out put becomes less than 200 cc over 24 hr period Chest tube remains to -20 cm continuous low wall suction. No visible air leak on exam. Chest x-ray ordered for this morning showed small bialteral pleural effusions Order placed for nursing to [facility] every 2 hours for accurate chest tube output monitoring. Patient s/p 1 unit of FFP's: INR now 1, APTT 24.5 Hemoglobin and hematocrit 7.4 and 24.5 respectively. Vital signs are stable. Patient now in A. fib with heart rate in the 90-120s. Pt needs to remain off anticoagulation until resolution of hemothoarx. DVT prophylaxis: Intermittent pneumatic compression stockings Lines: Triple-lumen to the right subclavian. Patient currently on amiodarone drip, propofol, lactated Ringer's, and trickle feeds through OG tube. Fall Risk Details Current Medications: Current Medications Generic Name Dose Route Start Last Admin Trade Name Freq PRN Reason Stop Dose Admin Albuterol/Ipratropium 3 ml 12/28/20 20:00 01/01/21 15:28 Albuterol/Iprat 2.5/0.5mg 3 Ml Ampul.Neb INHALE 3 ml RQ4H WHILE AWAKE DEE Administration Amiodarone HCl 200 mg 01/02/21 09:00 Amiodarone Hcl 200 Mg Tablet PO DAILY DEE Chlorhexidine Gluconate 15 ml 12/30/20 21:30 01/01/21 13:56 Chlorhexidine Gluc Oral Rinse 15 Ml Mouthwash BUCCAL 15 ml TID DEE Administration Famotidine 20 mg 12/29/20 09:00 01/01/21 08:50 Famotidine/Pf 20 Mg/2 Ml Vial IVPUSH 20 mg DAILY DEE Administration Hydromorphone HCl 0.5 mg 12/31/20 21:41 12/31/20 22:18 Hydromorphone Hcl 0.5 Mg/0.5 Ml Syringe IVPUSH 0.5 mg Q4H PRN Administration Pain, Severe (Pain Scale 7-10) Norepinephrine Bitartrate 8 mg in 250 mls @ 0 mls/hr 12/28/20 17:30 01/01/21 11:05 Levophed IVCONT 0 mcg/kg/min .Q0M DEE 0 mls/hr Titration Protocol Per Protocol Potassium Chloride 20 meq/ 1,010 mls @ 42 mls/hr 12/30/20 08:00 01/01/21 11:03 Lactated Ringer's IVCONT 42 mls/hr .Q24H DEE Administration Piperacillin Sod/Tazobactam 100 mls @ 200 mls/hr 12/31/20 16:00 01/01/21 15:37 Sod 4.5 gm/ Sodium Chloride IV 200 mls/hr Q8H DEE Administration Dexmedetomidine HCl 400 mcg in 100 mls @ 0 mls/hr 01/01/21 07:45 01/01/21 13:55 Precedex IVCONT 1 mcg/kg/hr .Q0M DEE 27.56 mls/hr Administration Protocol Per Protocol Insulin Human Lispro 0 unit 12/28/20 12:00 01/01/21 13:02 Insulin Lispro 100 Unit/Ml 3 Ml Vial SUBCUT Not Given Q6H DEE Protocol Pharmacy Consult 1 each 12/31/20 14:54 Consult Rx Vancomycin Dosing MISCELLANE DAILY PRN Consult order Sodium Chloride 3 ml 12/14/20 00:00 01/01/21 15:38 0.9 % Sodium Chloride Flush 3 Ml Syringe IVFLUSH 3 ml QSHIFT DEE Administration Time Spent With Patient Time: Total time spent is greater than 50% in coordination of care (as documented) at patient's floor/unit and/or counseling patient: Time with patient: 15 - 24 minutes Procedures Date of Service Date of Service: 01/01/21
[2021-01-01 17:01] LABS: VBG Base Excess 13.9 mmol/L; VBG HCO3 38 mmol/L (22-26); VBG pCO2 45 mmHg; VBG pH 7.52 (7.32-7.43); VBG pO2 47 mmHg
[2021-01-01 17:08] LABS: Basophils Percent Auto 0.1 % (0-2); MANUAL DIFF FLAG SCAN; Mean Platelet Volume 10.7 fL (9.4-12.3); PLT CLUMP 1; Red Blood Count 2.87 X10*6/uL (4.20-5.50); Red Cell Distribution Width 16.3 % (11.0-16.0); SCAN SMEAR FLAG 1
[2021-01-01 17:09] LABS: Eosinophils Percent Auto 0.3 % (0-4); Hematocrit 28.1 % (37-47); Hemoglobin 8.8 g/dl (12.0-16.0); Imm Gran Pct Auto 1.7 % (0.0-0.4); Lymphocytes Absolute Auto 0.3 X10*3/uL (1.2-4.9); Lymphocytes Percent Auto 2.8 % (20-40); Mean Corpuscular HGB Conc 31.3 g/dl (31.0-35.0); Mean Corpuscular Hemoglobin 30.7 pg (27.0-33.0); Mean Corpuscular Volume 97.9 fL (80-98); Monocytes Absolute Auto 0.9 X10*3/uL (0.1-1.2); Monocytes Percent Auto 7.7 % (2-11); NRBC Pct Auto 0.5 /100WBC (0.0-0.2); Neutrophils Absolute Auto 10.1 X10*3/uL (2.0-8.3); Neutrophils Percent Auto 87.4 % (45-73); Platelet Count 111 X10*3/uL (160-400); White Blood Count 11.6 X10*3/uL (4.8-10.8)
[2021-01-01 17:47] LABS: Glucose, Whole Blood 137 mg/dL (60-115)
[2021-01-01 17:47] LABS: Anion Gap 11 (12-20); Blood Urea Nitrogen 23 mg/dL (9-16); Calcium 7.2 mg/dL (8.4-10.2); Carbon Dioxide 31 mmol/L (22-29); Chloride 108 mmol/L (96-108); Estimated Glomerular Filt Rate > 60; Glucose Random 143 mg/dL (60-115); Potassium 4.2 mmol/L (3.3-5.1); Sodium 146 mmol/L (135-145)
[2021-01-01 17:58] LABS: SLIDE REVIEW VERIFIED
[2021-01-01 19:03] LABS: Venous Blood Gas Refer to POC result
[2021-01-01] MEDS: dexmedeTOMIDidine HCL/NS 400 MCG/100 ML INFUS..BTL 22.05 MCG IVCONT (21:23)
[2021-01-01 21:28] LABS: Albumin Level 2.4 g/dL (3.5-5.0)
[2021-01-01 21:57] LABS: Anion Gap 10 (12-20); Blood Urea Nitrogen 21 mg/dL (9-16); Calcium 7.1 mg/dL (8.4-10.2); Carbon Dioxide 31 mmol/L (22-29); Chloride 108 mmol/L (96-108); Creatinine Clr Calc Pharmacy 96.9; Estimated Glomerular Filt Rate > 60; Glucose Random 142 mg/dL (60-115); Potassium 4.3 mmol/L (3.3-5.1); Sodium 145 mmol/L (135-145)
[2021-01-01 23:48] LABS: Glucose, Whole Blood 130 mg/dL (60-115)
[2021-01-01] MEDS: Albumin Human 25 % 100 ML IV (23:51)
[2021-01-02] VITALS (35 sets, daily range): BP systolic 108–162; BP diastolic 44–83; PULSE 71–111; RESP 18–28; TEMP 37.5–38.5; O2SAT 94–99
[2021-01-02] MEDS: 0.9 % Sodium Chloride Flush 3 ML SYRINGE IVFLUSH ×3 (00:43→15:21)
[2021-01-02] MEDS: Albumin Human 25 % 100 ML 200 ML IV (01:34)
[2021-01-02] MEDS: dexmedeTOMIDidine HCL/NS 400 MCG/100 ML INFUS..BTL 16.53 MCG IVCONT ×2 (02:02→20:35)
[2021-01-02 02:03] LABS: Glucose, Whole Blood 127 mg/dL (60-115)
[2021-01-02] MEDS: Furosemide 20 MG/2 ML VIAL IVPUSH ×2 (02:03→07:40)
[2021-01-02] MEDS: Potassium Chloride Packet 20 MEQ PACKET 40 MEQ PO (02:03)
[2021-01-02 05:19] LABS: VBG Base Excess 13.9 mmol/L; VBG HCO3 37 mmol/L (22-26); VBG pCO2 42 mmHg; VBG pH 7.55 (7.32-7.43); VBG pO2 137 mmHg
[2021-01-02 05:41] LABS: Glucose, Whole Blood 120 mg/dL (60-115)
[2021-01-02 05:55] LABS: Basophils Percent Auto 0.1 % (0-2); Hematocrit 26.6 % (37-47); Hemoglobin 8.3 g/dl (12.0-16.0); Imm Gran Abs Auto 0.19 X10*3/uL (0.00-0.03); Imm Gran Pct Auto 1.9 % (0.0-0.4); MANUAL DIFF FLAG SCAN; Mean Corpuscular HGB Conc 31.2 g/dl (31.0-35.0); Mean Corpuscular Hemoglobin 30.6 pg (27.0-33.0); Mean Corpuscular Volume 98.2 fL (80-98); PLT CLUMP 1; Red Blood Count 2.71 X10*6/uL (4.20-5.50); Red Cell Distribution Width 16.2 % (11.0-16.0); SCAN SMEAR FLAG 1
[2021-01-02 05:57] LABS: Eosinophils Percent Auto 0.4 % (0-4); Lymphocytes Absolute Auto 0.4 X10*3/uL (1.2-4.9); Lymphocytes Percent Auto 3.6 % (20-40); Mean Platelet Volume 10.8 fL (9.4-12.3); Monocytes Absolute Auto 0.8 X10*3/uL (0.1-1.2); Monocytes Percent Auto 7.8 % (2-11); NRBC Pct Auto 0.5 /100WBC (0.0-0.2); Neutrophils Absolute Auto 8.7 X10*3/uL (2.0-8.3); Neutrophils Percent Auto 86.2 % (45-73); White Blood Count 10.1 X10*3/uL (4.8-10.8)
[2021-01-02 06:00] LABS: Platelet Count 108 X10*3/uL (160-400)
[2021-01-02 06:02] LABS: INTERNATIONAL NORM RATIO 1.2 (0.9-1.1); Prothrombin Time 14.8 SEC (10.8-13.0)
[2021-01-02 06:12] LABS: Partial Thromboplastin Time 23.7 SEC (24.1-38.0)
[2021-01-02 06:24] LABS: SLIDE REVIEW VERIFIED
[2021-01-02 06:25] LABS: B Type Natriuretic Peptide 1287 pg/mL (<100)
[2021-01-02 06:29] LABS: Anion Gap 10 (12-20); Blood Urea Nitrogen 20 mg/dL (9-16); Calcium 7.6 mg/dL (8.4-10.2); Carbon Dioxide 33 mmol/L (22-29); Chloride 107 mmol/L (96-108); Creatinine Clr Calc Pharmacy 96.9; Estimated Glomerular Filt Rate > 60; Glucose Random 119 mg/dL (60-115); Magnesium 1.8 mg/dL (1.6-2.6); Phosphorus 2.1 mg/dL (2.7-4.5); Potassium 3.6 mmol/L (3.3-5.1); Sodium 146 mmol/L (135-145)
[2021-01-02 06:51] LABS: Venous Blood Gas Refer to POC result
[2021-01-02] MEDS: Potassium Chloride Packet 20 MEQ PACKET PO (07:40)
[2021-01-02] MEDS: Piperacillin Sodium/Tazobactam 4.5 GM in 0.9 % Sodium Chloride 100 ML IV ×2 (08:03→15:21)
[2021-01-02] MEDS: Albuterol/Iprat 2.5/0.5MG 3 ML AMPUL.NEB INHALE ×4 (08:04→19:44)
[2021-01-02] MEDS: Amiodarone HCL 200 MG TABLET PO (09:30)
[2021-01-02] MEDS: Famotidine/PF 20 MG/2 ML VIAL IVPUSH (09:30)
[2021-01-02] MEDS: Chlorhexidine Gluc Oral Rinse 15 ML MOUTHWASH BUCCAL ×3 (09:30→20:20)
[2021-01-02] MEDS: dexmedeTOMIDidine HCL/NS 400 MCG/100 ML INFUS..BTL 8.27 MCG IVCONT (09:40)
[2021-01-02 12:34] LABS: Glucose, Whole Blood 111 mg/dL (60-115)
--- NOTE | 2021-01-02 12:45 | PM.CCPN ---
Subjective Subjective Date of Service: 01/02/21 Critical Care Time (minutes): 40 Comment: 75-year-old morbidly obese female type 2 diabetic with background of paroxysmal atrial fibrillation likely has underlying obesity/hypoventilation and sleep apnea with possible central component presented to me following a cardiac arrest where she was noted to become progressively bradycardic than asystolic with brief pulseless electrical activity a 10 minutes CPR with chest compression and 3 rounds of epinephrine and circulation was restored but the primary issue seemed to have been due to hypercarbia and hypoxia as the patient was noted to become progressively more lethargic limp week etc. year prior to this episode She also converted to atrial fibrillation with rapid ventricular response and then she developed a right hemo thorax following CPR requiring re-intubation and chest tube placement and initially pure blood returning to to to the tune of 2.5 L and now it is becoming progressively more serous still with significant output and I believe this is now reflecting a diastolic CHF as she has still has a large amount of 3rd space fluid that I believe she is recoup Ng into her intravascular space The 2nd day that she has been comfortable on pressure support but she is more than 100 kilos and tidal volumes are 450 cc with respiratory rates approximately 25 minutes ventilatory requirement about 11 L no distress and we are just on dexmedetomidine Physical Exam Vital Signs: Vital Signs: Last Vital Signs Temp 100.2 F 01/02/21 12:00 Pulse 91 01/02/21 12:00 Resp 25 H 01/02/21 12:00 BP 139/61 01/02/21 12:00 Pulse Ox 97 01/02/21 12:00 Oxygen Flow Rate 2 12/26/20 15:00 Body Mass Index 39.2 Const: Other: Awake and alert with good cognitive function and nonfocal neurologic CVP is running 11-12 and very edematous so we have been diuresing Abdomen benign with no organomegaly good bowel sounds soft and tolerating feedings Cardiac exam with CVP 11-12 no gallops no significant murmurs Objective Data Labs CBC & Chem 7: 01/02/21 05:11 01/02/21 05:11 Labs: Laboratory Results - last 24 hr 12/30/20 01/01/21 01/01/21 09:15 12:51 16:47 WBC 11.6 H RBC 2.87 L Hgb 8.8 L Hct 28.1 L MCV 97.9 MCH 30.7 MCHC 31.3 RDW 16.3 H Plt Count 111 L MPV 10.7 Immature Gran % (Auto) 1.7 H Neut % (Auto) 87.4 H Lymph % (Auto) 2.8 L Carroll % (Auto) 7.7 Eos % (Auto) 0.3 Baso % (Auto) 0.1 Lymph # (Auto) 0.3 L Carroll # (Auto) 0.9 Eos # (Auto) 0.0 Baso # (Auto) 0.0 Abs Immat Gran (auto) 0.20 H Absolute Neuts (auto) 10.1 H Absolute Nucleated RBC 0.060 H Nucleated RBC % (auto) 0.5 H Smear Tech's Comments VERIFIED PT INR APTT VBG pH VBG pCO2 VBG pO2 VBG HCO3 VBG O2 Saturation VBG Base Excess Sodium Potassium Chloride Carbon Dioxide Anion Gap BUN Creatinine Estim Creat Clear Calc Estimated GFR POC Glucose 129 H Random Glucose Calcium Phosphorus Magnesium B-Natriuretic Peptide Albumin Crossmatch See Detail 01/01/21 01/01/21 01/01/21 16:47 16:54 17:40 WBC RBC Hgb Hct MCV MCH MCHC RDW Plt Count MPV Immature Gran % (Auto) Neut % (Auto) Lymph % (Auto) Carroll % (Auto) Eos % (Auto) Baso % (Auto) Lymph # (Auto) Carroll # (Auto) Eos # (Auto) Baso # (Auto) Abs Immat Gran (auto) Absolute Neuts (auto) Absolute Nucleated RBC Nucleated RBC % (auto) Smear Tech's Comments PT INR APTT VBG pH 7.52 H VBG pCO2 45 VBG pO2 47 VBG HCO3 38 H VBG O2 Saturation 78.0 VBG Base Excess 13.9 Sodium 146 H Potassium 4.2 D Chloride 108 Carbon Dioxide 31 H Anion Gap 11 L BUN 23 H Creatinine 0.67 Estim Creat Clear Calc 94.0 Estimated GFR > 60 POC Glucose 137 H Random Glucose 143 H Calcium 7.2 L Phosphorus Magnesium B-Natriuretic Peptide Albumin Crossmatch 01/01/21 01/01/21 01/01/21 21:00 21:00 23:38 WBC RBC Hgb Hct MCV MCH MCHC RDW Plt Count MPV Immature Gran % (Auto) Neut % (Auto) Lymph % (Auto) Carroll % (Auto) Eos % (Auto) Baso % (Auto) Lymph # (Auto) Carroll # (Auto) Eos # (Auto) Baso # (Auto) Abs Immat Gran (auto) Absolute Neuts (auto) Absolute Nucleated RBC Nucleated RBC % (auto) Smear Tech's Comments PT INR APTT VBG pH VBG pCO2 VBG pO2 VBG HCO3 VBG O2 Saturation VBG Base Excess Sodium 145 Potassium 4.3 Chloride 108 Carbon Dioxide 31 H Anion Gap 10 L BUN 21 H Creatinine 0.65 Estim Creat Clear Calc 96.9 Estimated GFR > 60 POC Glucose 130 H Random Glucose 142 H Calcium 7.1 L Phosphorus Magnesium B-Natriuretic Peptide Albumin 2.4 L D Crossmatch 01/02/21 01/02/21 01/02/21 01:59 05:11 05:11 WBC 10.1 RBC 2.71 L Hgb 8.3 L Hct 26.6 L MCV 98.2 H MCH 30.6 MCHC 31.2 RDW 16.2 H Plt Count 108 L MPV 10.8 Immature Gran % (Auto) 1.9 H Neut % (Auto) 86.2 H Lymph % (Auto) 3.6 L Carroll % (Auto) 7.8 Eos % (Auto) 0.4 Baso % (Auto) 0.1 Lymph # (Auto) 0.4 L Carroll # (Auto) 0.8 Eos # (Auto) 0.0 Baso # (Auto) 0.0 Abs Immat Gran (auto) 0.19 H Absolute Neuts (auto) 8.7 H Absolute Nucleated RBC 0.050 H Nucleated RBC % (auto) 0.5 H Smear Tech's Comments VERIFIED PT 14.8 H INR 1.2 H APTT 23.7 L VBG pH VBG pCO2 VBG pO2 VBG HCO3 VBG O2 Saturation VBG Base Excess Sodium Potassium Chloride Carbon Dioxide Anion Gap BUN Creatinine Estim Creat Clear Calc Estimated GFR POC Glucose 127 H Random Glucose Calcium Phosphorus Magnesium B-Natriuretic Peptide Albumin Crossmatch 01/02/21 01/02/21 01/02/21 05:11 05:11 05:12 WBC RBC Hgb Hct MCV MCH MCHC RDW Plt Count MPV Immature Gran % (Auto) Neut % (Auto) Lymph % (Auto) Carroll % (Auto) Eos % (Auto) Baso % (Auto) Lymph # (Auto) Carroll # (Auto) Eos # (Auto) Baso # (Auto) Abs Immat Gran (auto) Absolute Neuts (auto) Absolute Nucleated RBC Nucleated RBC % (auto) Smear Tech's Comments PT INR APTT VBG pH 7.55 H VBG pCO2 42 VBG pO2 137 VBG HCO3 37 H VBG O2 Saturation 99.0 VBG Base Excess 13.9 Sodium 146 H Potassium 3.6 Chloride 107 Carbon Dioxide 33 H Anion Gap 10 L BUN 20 H Creatinine 0.65 Estim Creat Clear Calc 96.9 Estimated GFR > 60 POC Glucose Random Glucose 119 H Calcium 7.6 L D Phosphorus 2.1 L Magnesium 1.8 B-Natriuretic Peptide 1287 H Albumin Crossmatch 01/02/21 01/02/21 05:33 12:04 WBC RBC Hgb Hct MCV MCH MCHC RDW Plt Count MPV Immature Gran % (Auto) Neut % (Auto) Lymph % (Auto) Carroll % (Auto) Eos % (Auto) Baso % (Auto) Lymph # (Auto) Carroll # (Auto) Eos # (Auto) Baso # (Auto) Abs Immat Gran (auto) Absolute Neuts (auto) Absolute Nucleated RBC Nucleated RBC % (auto) Smear Tech's Comments PT INR APTT VBG pH VBG pCO2 VBG pO2 VBG HCO3 VBG O2 Saturation VBG Base Excess Sodium Potassium Chloride Carbon Dioxide Anion Gap BUN Creatinine Estim Creat Clear Calc Estimated GFR POC Glucose 120 H 111 Random Glucose Calcium Phosphorus Magnesium B-Natriuretic Peptide Albumin Crossmatch Microbiology Microbiology Results: Microbiology 12/31/20 15:59 Sputum - Suctioned Gram Stain - Final 12/31/20 15:59 Sputum - Suctioned Sputum Culture - Final 12/30/20 06:29 Blood - Venous Blood Culture - Preliminary No growth after 48 hours. 12/30/20 06:20 Blood - Venous Blood Culture - Preliminary No growth after 48 hours. 12/30/20 06:37 Kidney - Jones Catheter Urine Culture - Final No growth. 12/27/20 17:56 Sputum - Suctioned Gram Stain - Final 12/27/20 17:56 Sputum - Suctioned Sputum Culture - Final 12/27/20 17:53 Urine clean catch - Clean Catch Midstream Urine Culture - Final No growth. Progress Note: A&P Assessment and plan (1) Hemothorax on right: Status: Acute (2) Acute hypercapnic respiratory failure due to obstructive sleep apnea: Status: Acute (3) Acute renal failure due to tubular necrosis: Status: Acute (4) Sick sinus syndrome: Status: Acute (5) Symptomatic bradycardia: Status: Acute (6) Sleep apnea: Status: Acute (7) PAF (paroxysmal atrial fibrillation): Status: Acute (8) Cardiac arrest: Status: Acute (9) Metabolic alkalosis: Status: Acute (10) Dysphagia: Status: Acute (11) Heart failure with preserved ejection fraction: Status: Acute (12) Metabolic alkalosis: Status: Acute (13) Hyperkalemia: Status: Acute (14) Hyponatremia: Status: Acute (15) Acute hyponatremia: Status: Acute (16) CHF (congestive heart failure): Status: Acute (17) Fluid overload: Status: Acute (18) Acute diastolic CHF (congestive heart failure): Status: Acute (19) Uncontrolled hypertension: Status: Acute (20) SIADH (syndrome of inappropriate ADH production): Status: Acute Assessment and Plan: It so I am going to continue to watch on pressure support but on very slow to extubate given the circumstances the last time because clearly she will be BiPAP dependent so to make it easier I am going to watch the CVP and continue to diurese to at least to help with the work of breathing and see whether not the chest tube output diminishes as we diurese
--- NOTE | 2021-01-02 12:46 | P.PNTS_ITS ---
Subjective Subjective Date of Service: 01/02/21 Interval history: Patient remains intubated on minimal vent settings 05/11/40%. Continues required diuresing with good urine output.Right-sided chest tube continues to put out approximately 600 cc of now light pink serosanguineous fluid over the past 24 hours. It appears her hemorrhagic bleed may have subsided and current pleural fluid output may be a result of her CHF and some component of 3rd spacing. Chest tube remains on -20 L WS with no detectable air leak. Physical Exam Vital Signs: Vital Signs: Last Vital Signs Temp 100.2 F 01/02/21 12:00 Pulse 91 01/02/21 12:00 Resp 25 H 01/02/21 12:00 BP 139/61 01/02/21 12:00 Pulse Ox 97 01/02/21 12:00 Oxygen Flow Rate 2 12/26/20 15:00 Body Mass Index 39.2 Const: Other: Intubated with some minor sedation currently on Precedex General: no acute distress, alert and awake HENMT: Head: Yes normal to inspection Eyes: General: appearance normal, both eyes and all related structures Neck: Other: No subcutaneous crepitus appreciated along neck Neck: Yes trachea midline Chest: Other: Breath sounds are CT a with no audible wheezes or rhonchi ap preciated. Right-sided pigtail catheter remains in place and secured with dressing clean dry and intact. Chest tube attached to [facility] reservoir device on -20 L WS with no detectable air leak and approximately 600 cc of pink serosanguineous fluid output over the past 24 hours. Cardio: Other: Irregularly irregular rate and rhythm ranging from 90-100 bpm Rhythm: abnormal rhythm GI: Other: Obese, soft, nontender. : Other: Jones catheter remains in place with pale yellow urine output present. Extrem: Other: Bilateral upper and lower extremity +1 edema Progress Note: A&P Assessment and plan (1) Hemothorax on right: Status: Acute Assessment and Plan: Pt is a 75-year-old female with a past medical history of type 2 diabetes, morbid obesity, COPD, CHF, atrial fibrillation with a home regimen of Eliquis who was admitted for weakness and probable acute on chronic diastolic heart failure. On 12/27/20, patient had a PEA arrest resulting in trauma to the chest cavity following 10 mins of CPR with findings on chest CT of left-sided rib fractures 2-7 and right-sided hemothorax. Now s/p R pigtail chest tube placement on 12/30/20. Chest CT on 12/30/20 showed moderate to large right pleural effusion with small left pleural effusion and bilateral ground glass opacities to bilateral upper lobes. Also noted to have multiple left anterior rib fractures to left anterior rib fractures involving the left second to seventh anterior ribs. Also noted to have ? hematoma of left lateral chest. A chest tube was placed by Dr. Franklin on 12/30/20 after findings on CXR showed large right pleural effusion vs hemothorax. Patient has had approximately 600 cc of pink serosanguineous drainage over past 24 hours. It appears right-sided pleural cavity bleed this has subsided and continued pleural fluid output may be a result patient has CHF, fluid overload, 3rd spacing, however would continue to hold off anticoagulation at this point to ensure resolution pleural hemorrhage. Chest tube should remain indwelling until fluid out put becomes less than 200 cc over 24 hr period Chest tube remains to -20 cm continuous low wall suction. No visible air leak on exam. Chest x-ray ordered for this morning showed small right-sided pleural effusions Order placed for nursing to [facility] every 2 hours for accurate chest tube output monitoring. Patient s/p 1 unit of FFP's: INR now 1, APTT 24.5 Hemoglobin and hematocrit 8.3 and 26. Vital signs are stable. Patient remains in A. fib with heart rate in the 90- 100s. Pt needs to remain off anticoagulation until full resolution of hemothoarx. Continues to require ventilatory support with minimal settings 10/5/40%, with adequate tidal volumes and minute ventilation appropriate. Patient may have a component of central sleep apnea is has been noted patient while sleeping has had prolonged periods of apnea. DVT prophylaxis: Intermittent pneumatic compression stockings Lines: Triple-lumen to the right subclavian. Patient currently on amiodarone drip, propofol, lactated Ringer's, and trickle feeds through OG tube. Fall Risk Details Current Medications: Current Medications Generic Name Dose Route Start Last Admin Trade Name Freq PRN Reason Stop Dose Admin Albuterol/Ipratropium 3 ml 12/28/20 20:00 01/02/21 12:12 Albuterol/Iprat 2.5/0.5mg 3 Ml Ampul.Neb INHALE 3 ml RQ4H WHILE AWAKE DEE Administration Amiodarone HCl 200 mg 01/02/21 09:00 01/02/21 09:30 Amiodarone Hcl 200 Mg Tablet PO 200 mg DAILY DEE Administration Chlorhexidine Gluconate 15 ml 12/30/20 21:30 01/02/21 09:30 Chlorhexidine Gluc Oral Rinse 15 Ml Mouthwash BUCCAL 15 ml TID DEE Administration Famotidine 20 mg 12/29/20 09:00 01/02/21 09:30 Famotidine/Pf 20 Mg/2 Ml Vial IVPUSH 20 mg DAILY DEE Administration Hydromorphone HCl 0.5 mg 12/31/20 21:41 12/31/20 22:18 Hydromorphone Hcl 0.5 Mg/0.5 Ml Syringe IVPUSH 0.5 mg Q4H PRN Administration Pain, Severe (Pain Scale 7-10) Piperacillin Sod/Tazobactam 100 mls @ 200 mls/hr 12/31/20 16:00 01/02/21 09:31 Sod 4.5 gm/ Sodium Chloride IV Infused Q8H DEE Infusion Dexmedetomidine HCl 400 mcg in 100 mls @ 0 mls/hr 01/01/21 07:45 01/02/21 09:40 Precedex IVCONT 0.3 mcg/kg/hr .Q0M DEE 8.27 mls/hr Administration Protocol Per Protocol Insulin Human Lispro 0 unit 12/28/20 12:00 01/02/21 12:23 Insulin Lispro 100 Unit/Ml 3 Ml Vial SUBCUT Not Given Q6H [facility] Protocol Pharmacy Consult 1 each 12/31/20 14:54 Consult Rx Vancomycin Dosing MISCELLANE DAILY PRN Consult order Sodium Chloride 3 ml 12/14/20 00:00 01/02/21 07:40 0.9 % Sodium Chloride Flush 3 Ml Syringe IVFLUSH 3 ml QSHIFT DEE Administration Time Spent With Patient Time: Total time spent is greater than 50% in coordination of care (as documented) at patient's floor/unit and/or counseling patient: Time with patient: 15 - 24 minutes Procedures Date of Service Date of Service: 01/02/21
[2021-01-02] MEDS: Metoprolol Tartrate 5 MG/5 ML VIAL 2.5 MG IVPUSH (16:30)
[2021-01-02 18:14] LABS: Glucose, Whole Blood 98 mg/dL (60-115)
[2021-01-02] MEDS: HYDROmorphone HCl 0.5 MG/0.5 ML SYRINGE IVPUSH (20:19)
[2021-01-02 23:17] LABS: Glucose, Whole Blood 105 mg/dL (60-115)
[2021-01-03] VITALS (39 sets, daily range): BP systolic 105–160; BP diastolic 51–75; PULSE 58–170; RESP 14–24; TEMP 37.3–37.9; O2SAT 96–99
[2021-01-03] MEDS: Piperacillin Sodium/Tazobactam 4.5 GM in 0.9 % Sodium Chloride 100 ML IV ×2 (00:06→07:40)
[2021-01-03] MEDS: 0.9 % Sodium Chloride Flush 3 ML SYRINGE IVFLUSH ×3 (00:06→16:58)
[2021-01-03] MEDS: dexmedeTOMIDidine HCL/NS 400 MCG/100 ML INFUS..BTL 22.05 MCG IVCONT (02:21)
[2021-01-03 05:26] LABS: VBG Base Excess 18.9 mmol/L; VBG HCO3 43 mmol/L (22-26); VBG pCO2 48 mmHg; VBG pH 7.56 (7.32-7.43); VBG pO2 46 mmHg
[2021-01-03 05:29] LABS: Venous Blood Gas Refer to POC result
[2021-01-03 05:55] LABS: Glucose, Whole Blood 112 mg/dL (60-115)
[2021-01-03 06:10] LABS: Basophils Percent Auto 0.1 % (0-2); Eosinophils Absolute Auto 0.2 X10*3/uL (0.0-0.4); Eosinophils Percent Auto 1.8 % (0-4); Hematocrit 27.8 % (37-47); Hemoglobin 8.8 g/dl (12.0-16.0); Imm Gran Abs Auto 0.16 X10*3/uL (0.00-0.03); Imm Gran Pct Auto 1.6 % (0.0-0.4); Lymphocytes Absolute Auto 0.4 X10*3/uL (1.2-4.9); Lymphocytes Percent Auto 3.5 % (20-40); MANUAL DIFF FLAG SCAN; Mean Corpuscular HGB Conc 31.7 g/dl (31.0-35.0); Mean Corpuscular Hemoglobin 31.2 pg (27.0-33.0); Mean Corpuscular Volume 98.6 fL (80-98); Mean Platelet Volume 10.8 fL (9.4-12.3); Monocytes Absolute Auto 0.7 X10*3/uL (0.1-1.2); NRBC Pct Auto 0.2 /100WBC (0.0-0.2); Neutrophils Absolute Auto 8.5 X10*3/uL (2.0-8.3); Platelet Count 122 X10*3/uL (160-400); Red Blood Count 2.82 X10*6/uL (4.20-5.50); Red Cell Distribution Width 15.9 % (11.0-16.0); SCAN SMEAR FLAG 1; White Blood Count 9.9 X10*3/uL (4.8-10.8)
[2021-01-03 06:14] LABS: SLIDE REVIEW VERIFIED
[2021-01-03 06:20] LABS: B Type Natriuretic Peptide 1157 pg/mL (<100)
[2021-01-03 06:21] LABS: Anion Gap 11 (12-20); Blood Urea Nitrogen 16 mg/dL (9-16); Calcium 7.2 mg/dL (8.4-10.2); Carbon Dioxide 36 mmol/L (22-29); Chloride 103 mmol/L (96-108); Creatinine Clr Calc Pharmacy 116.6; Estimated Glomerular Filt Rate > 60; Glucose Random 118 mg/dL (60-115); Magnesium 1.5 mg/dL (1.6-2.6); Phosphorus 2.1 mg/dL (2.7-4.5); Sodium 147 mmol/L (135-145)
[2021-01-03 06:31] LABS: INTERNATIONAL NORM RATIO 1.3 (0.9-1.1); Prothrombin Time 15.2 SEC (10.8-13.0)
[2021-01-03 06:33] LABS: Partial Thromboplastin Time 24.4 SEC (24.1-38.0)
[2021-01-03] MEDS: Potassium Chloride Packet 20 MEQ PACKET 40 MEQ PO ×2 (07:41→21:57)
[2021-01-03] MEDS: Magnesium Sulfate/D5W 1 GM/100 ML PIGGYBACK IV (07:41)
[2021-01-03] MEDS: Albuterol/Iprat 2.5/0.5MG 3 ML AMPUL.NEB INHALE ×4 (07:47→20:10)
[2021-01-03] MEDS: Amiodarone HCL 200 MG TABLET PO (08:07)
[2021-01-03] MEDS: Famotidine/PF 20 MG/2 ML VIAL IVPUSH (08:08)
[2021-01-03] MEDS: Chlorhexidine Gluc Oral Rinse 15 ML MOUTHWASH BUCCAL ×3 (08:08→21:27)
[2021-01-03] MEDS: Digoxin 0.5 MG/2 ML AMPUL 0.25 MG IVPUSH (08:55)
[2021-01-03] MEDS: HYDROmorphone HCl 0.5 MG/0.5 ML SYRINGE IVPUSH ×3 (09:03→18:28)
[2021-01-03 12:04] LABS: Glucose, Whole Blood 94 mg/dL (60-115)
[2021-01-03] MEDS: Metoprolol Tartrate 12.5 MG HALFTAB PO (14:38)
--- NOTE | 2021-01-03 15:55 | PM.PNTS ---
Subjective Subjective Date of Service: 01/03/21 Interval history: Patient was seen examined this afternoon. Patient remains intubated on minimal ventilator settings. Remains in atrial fibrillation with rates between 90 and 135 B p.m. right-sided chest tube continues to be amount of fluid output of serosanguineous fluid. Past 24 hours approximately [address] performed this morning shows improved right-sided pleural effusion however does show increased worsening of bilateral ground-glass opacities with interstitial thickening is only appealing appearance. Physical Exam Vital Signs: Vital Signs: Last Vital Signs Temp 99.5 F 01/03/21 14:42 Pulse 123 H 01/03/21 14:42 Resp 19 01/03/21 14:42 BP 146/65 H 01/03/21 14:42 Pulse Ox 97 01/03/21 14:42 Oxygen Flow Rate 2 12/26/20 15:00 Body Mass Index 39.2 Const: Other: Intubated with some minor sedation currently on Precedex General: cooperative, no acute distress, alert and awake; No acute distress Nutritional Appearance: well nourished and obese Orientation/consciousness: oriented to person, oriented to place and Other orientation findings (Sedated on mechanical ventilation) Limitations: no limitations and No language barrier HENMT: Head: Yes normal to inspection, Yes normocephalic and Yes atraumatic Ears: external ears normal General nose exam: Normal external nose present Face and sinus: Yes other (Facial edema as noted above) Mouth: Normal oral and palatal mucosa present Throat: Yes posterior oropharynx normal Eyes: General: appearance normal, both eyes and all related structures Alignment and Position: alignment normal Conjunctivae: conjunctivae normal Sclerae: sclerae normal EOM: EOMs intact bilaterally Direct Ophthalmoscopy: normal light reflex Neck: Other: No subcutaneous crepitus appreciated along neck Neck: Yes normal visual inspection, Yes full ROM, Yes no lymphadenopathy, Yes trachea midline, Yes supple, No lymphadenopathy, No tender, No tracheal deviation and Yes no JVD Lymphatic: no lymphadenopathy noted Chest: Other: Breath sounds are CT a with no audible wheezes or rhonchi appreciated. Right-sided pigtail catheter remains in place and secured with dressing clean dry and intact. Chest tube attached to [facility] reservoir device on -20 L WS with no detectable air leak and approximately 725 cc of pink serosanguineous fluid output over the past 24 hours. Chest palpation & inspection: normal inspection of the chest, normal palpation of entire chest wall and no crepitus Resp: Effort & Inspection: normal respiratory effort, able to speak in complete sentences, normal respiratory pattern, no audible wheezes, no cough, no pursed lip breathing, no respiratory distress, no stridor, not tachypneic and no tracheal deviation Auscultation: clear to auscultation bilaterally, no crackles, rales bilateral in the lower lung carrizales, no wheezes and diminished lung sounds Cardio: Other: Irregularly irregular rate and rhythm ranging from 90-130 bpm Jugular venous distension: no JVD Palpation: normal PMI, no palpable S3 and no palpable S4 Rate: regular rate and tachycardic Rhythm: regular rhythm and abnormal rhythm irregularly irregular Heart sounds: S1 normal heart sound present, S2 normal heart sound present, no click, no gallops, no murmurs and no rubs Peripheral pulses: other (2+ pitting edema to bilateral upper and lower extremities.) GI: Other: Obese, soft, nontender. Inspection: Yes normal to inspection and Yes obesity Palpation (GI): Soft to palpation, nontender, no guarding and not rigid Auscultation: normal bowel sounds : Other: Jones catheter remains in place with pale yellow urine output present. General: Yes no CVA tenderness Back/Spine/Pelvis: Back: no CVA tenderness Cervical Spine: normal cervical lordosis Thoracic/Lumbar Spine: thoracic and lumbar spine normal to inspection Skin: General skin exam: no rashes or lesions noted and dry skin Lesions: no lesions Rashes: no rashes Wounds: no wounds Neuro: General: oriented to person, oriented to place and moves all extremities Motor exam (neuro): No Asterixis during motor activity present Extrem: Other: Bilateral upper and lower extremity +1 edema General: Yes normal to inspection, Yes full ROM, Yes capillary refill normal, Yes no clubbing, cyanosis or edema, Yes edema and No pedal edema Psych: Appearance: grossly normal and well kempt Mental Status: mental status grossly normal Speech and movement: Normal speech and movement present Affect: normal affect Attitude: cooperative Thought process: Normal thought process present Thought content: Normal thought content present Progress Note: A&P Assessment and plan (1) Hemothorax on right: Status: Acute Assessment and Plan: Pt is a 75-year-old female with a past medical history of type 2 diabetes, morbid obesity, COPD, CHF, atrial fibrillation with a home regimen of Eliquis who was admitted for weakness and probable acute on chronic diastolic heart failure. On 12/27/20, patient had a PEA arrest resulting in trauma to the chest cavity following 10 mins of CPR with findings on chest CT of left-sided rib fractures 2-7 and right-sided hemothorax. Now s/p R pigtail chest tube placement on 12/30/20. Chest CT on 12/30/20 showed moderate to large right pleural effusion with small left pleural effusion and bilateral ground glass opacities to bilateral upper lobes. Also noted to have multiple left anterior rib fractures to left anterior rib fractures involving the left second to seventh anterior ribs. Also noted to have ? hematoma of left lateral chest. A chest tube was placed by Dr. Franklin on 12/30/20 after findings on CXR showed large right pleural effusion vs hemothorax. Chest CTs performed today on 01/03/2021. Shows increased aeration of right lung after pleural fluid evacuation with significantly decreased right pleural effusion and decreased right lung atelectasis.. Increased density extensiveness of patchy bilateral ground-glass opacities with areas of interstitial thickening given a peeling appearance. Minimally displaced acute fractures of the left anterolateral 3rd through 7th ribs. Patient has had approximately 725 cc of pink serosanguineous drainage over past 24 hours. It appears right-sided pleural cavity bleed this has subsided and continued pleural fluid output may be a result patient has CHF, fluid overload, 3rd spacing, however would continue to hold off anticoagulation at this point to ensure resolution pleural hemorrhage. Chest tube should remain indwelling until fluid out put becomes less than 200 cc over 24 hr period Chest tube remains to -20 cm continuous low wall suction. No visible air leak on exam. Chest x-ray ordered for this morning showed small right-sided pleural effusions Order placed for nursing to [facility] every 2 hours for accurate chest tube output monitoring. Patient s/p 1 unit of FFP's: INR now 1.3, APTT 24. Hemoglobin and hematocrit 8.8and 26. Vital signs are stable. Patient remains in A. fib with heart rate in the 90-100s. Pt needs to remain off anticoagulation until full resolution of hemothoarx. Continues to require ventilatory support with minimal settings 10/5/40%, with adequate tidal volumes and minute ventilation appropriate. Patient may have a component of central sleep apnea is has been noted patient while sleeping has had prolonged periods of apnea. DVT prophylaxis: Intermittent pneumatic compression stockings Lines: Triple-lumen to the right subclavian. Patient currently on amiodarone drip, propofol, lactated Ringer's, and trickle feeds through OG tube. Fall Risk Details Current Medications: Current Medications Generic Name Dose Route Start Last Admin Trade Name Freq PRN Reason Stop Dose Admin Albuterol/Ipratropium 3 ml 12/28/20 20:00 01/03/21 15:26 Albuterol/Iprat 2.5/0.5mg 3 Ml Ampul.Neb INHALE 3 ml RQ4H WHILE AWAKE DEE Administration Chlorhexidine Gluconate 15 ml 12/30/20 21:30 01/03/21 08:08 Chlorhexidine Gluc Oral Rinse 15 Ml Mouthwash BUCCAL 15 ml TID DEE Administration Famotidine 20 mg 12/29/20 09:00 01/03/21 08:08 Famotidine/Pf 20 Mg/2 Ml Vial IVPUSH 20 mg DAILY DEE Administration Hydromorphone HCl 0.5 mg 12/31/20 21:41 01/03/21 14:38 Hydromorphone Hcl 0.5 Mg/0.5 Ml Syringe IVPUSH 0.5 mg Q4H PRN Administration Pain, Severe (Pain Scale 7-10) Dexmedetomidine HCl 400 mcg in 100 mls @ 0 mls/hr 01/01/21 07:45 01/03/21 06:32 Precedex IVCONT 0 mcg/kg/hr .Q0M DEE 0 mls/hr Titration Protocol Per Protocol Insulin Human Lispro 0 unit 12/28/20 12:00 01/03/21 12:44 Insulin Lispro 100 Unit/Ml 3 Ml Vial SUBCUT Not Given Q6H [facility] Protocol Methylprednisolone Sodium Succinate 125 mg 01/03/21 16:00 Methylprednisolone Sod Succ 125 Mg/2 Ml Vial IVPUSH Q6H DEE Metoprolol Tartrate 5 mg 01/03/21 14:08 Metoprolol Tartrate 5 Mg/5 Ml Vial IVPUSH Q6H PRN Heart Rate >100 Pharmacy Consult 1 each 12/31/20 14:54 Consult Rx Vancomycin Dosing MISCELLANE DAILY PRN Consult order Sodium Chloride 3 ml 12/14/20 00:00 01/03/21 07:41 0.9 % Sodium Chloride Flush 3 Ml Syringe IVFLUSH 3 ml QSHIFT DEE Administration Time Spent With Patient Time: Total time spent is greater than 50% in coordination of care (as documented) at patient's floor/unit and/or counseling patient: Time with patient: 15 - 24 minutes Procedures Date of Service Date of Service: 01/03/21
--- NOTE | 2021-01-03 16:03 | P.PNCC_ITS ---
Subjective Subjective Date of Service: 01/03/21 Critical Care Time (minutes): 45 Comment: 75-year-old female who probably had had progressive hypercarbic and secondarily hypoxic respiratory failure became weak lethargic and and then suddenly be was noted to become bradycardic loss her carotid upstrokes had a 10 minutes CPR and as a result of that developed what looked like bilateral pulmonary contusions but a large right hemo thorax for which I placed a chest tu be draining initially 2500 cc of blood and then still had very active but increasingly serous, serosanguineous drainage for several days thereafter so the chest tube state in place She then developed new onset atrial fibrillation with rapid ventricular response and she of course could not tolerate remaining on anticoagulants because of the active bleeding in the right chest and we started her on IV amiodarone which we ran for several days because she was NPO and then converted her to oral amioda juan and we will looking to extubate and she did very well all day yesterday on pressure support and today she could not tolerate it and her heart rate started to creep up she has had persistent low-grade temperature despite being on empiric at antibiotics for the initial contusion/infiltrate and then I question the possibility of amiodarone toxicity and I sent her for CT scan today because of the change and she clearly has evidence of hypersensitivity pneumonitis so amiodarone is discontinued we will use combination of digoxin and beta blockade for heart rate control and she has to wait at least another week or 2 before anticoagulation can be reintroduced and I am stopping antibiotics starting her on steroids for the amiodarone issue Physical Exam Vital Signs: Vital Signs: Last Vital Signs Temp 99.5 F 01/03/21 14:42 Pulse 123 H 01/03/21 14:42 Resp 19 01/03/21 14:42 BP 146/65 H 01/03/21 14:42 Pulse Ox 97 01/03/21 14:42 Oxygen Flow Rate 2 12/26/20 15:00 Body Mass Index 39.2 Const: Other: Awake alert but very cooperative off all sedation Increased heart rate in atrial fibrillation with some diaphoresis respiratory distress on pressure support so she went back on assist control and tolerating it without sedation Cardiac exam stable with CVP running between 5 and 7 status post diuresis but she still has significant serous drainage from the chest tube on the right and a little bit of a developing small pleural effusion on the left and this may all be indicative of the amiodarone issue because at this point she really should not have elevated left heart filling pressure Objective Data Labs CBC & Chem 7: 01/03/21 05:17 01/03/21 05:17 Labs: Laboratory Results - last 24 hr 01/02/21 01/02/21 01/03/21 18:01 23:13 05:17 WBC 9.9 RBC 2.82 L Hgb 8.8 L Hct 27.8 L MCV 98.6 H MCH 31.2 MCHC 31.7 RDW 15.9 Plt Count 122 L MPV 10.8 Immature Gran % (Auto) 1.6 H Neut % (Auto) 86.0 H Lymph % (Auto) 3.5 L [place] % (Auto) 7.0 Eos % (Auto) 1.8 Baso % (Auto) 0.1 Lymph # (Auto) 0.4 L [place] # (Auto) 0.7 Eos # (Auto) 0.2 Baso # (Auto) 0.0 Abs Immat Gran (auto) 0.16 H Absolute Neuts (auto) 8.5 H Absolute Nucleated RBC 0.020 H Nucleated RBC % (auto) 0.2 Smear Tech's Comments VERIFIED PT INR APTT VBG pH VBG pCO2 VBG pO2 VBG HCO3 VBG O2 Saturation VBG Base Excess Sodium Potassium Chloride Carbon Dioxide Anion Gap BUN Creatinine Estim Creat Clear Calc Estimated GFR POC Glucose 98 105 Random Glucose Calcium Phosphorus Magnesium B-Natriuretic Peptide 01/03/21 01/03/21 01/03/21 05:17 05:17 05:17 WBC RBC Hgb Hct MCV MCH MCHC RDW Plt Count MPV Immature Gran % (Auto) Neut % (Auto) Lymph % (Auto) [place] % (Auto) Eos % (Auto) Baso % (Auto) Lymph # (Auto) [place] # (Auto) Eos # (Auto) Baso # (Auto) Abs Immat Gran (auto) Absolute Neuts (auto) Absolute Nucleated RBC Nucleated RBC % (auto) Smear Tech's Comments PT 15.2 H INR 1.3 H APTT 24.4 VBG pH VBG pCO2 VBG pO2 VBG HCO3 VBG O2 Saturation VBG Base Excess Sodium 147 H Potassium 3.0 L Chloride 103 Carbon Dioxide 36 H Anion Gap 11 L BUN 16 Creatinine 0.54 Estim Creat Clear Calc 116.6 Estimated GFR > 60 POC Glucose Random Glucose 118 H Calcium 7.2 L Phosphorus 2.1 L Magnesium 1.5 L B-Natriuretic Peptide 1157 H 01/03/21 01/03/21 01/03/21 05:20 05:38 11:42 WBC RBC Hgb Hct MCV MCH MCHC RDW Plt Count MPV Immature Gran % (Auto) Neut % (Auto) Lymph % (Auto) [place] % (Auto) Eos % (Auto) Baso % (Auto) Lymph # (Auto) [place] # (Auto) Eos # (Auto) Baso # (Auto) Abs Immat Gran (auto) Absolute Neuts (auto) Absolute Nucleated RBC Nucleated RBC % (auto) Smear Tech's Comments PT INR APTT VBG pH 7.56 H VBG pCO2 48 VBG pO2 46 VBG HCO3 43 H VBG O2 Saturation 79.0 VBG Base Excess 18.9 Sodium Potassium Chloride Carbon Dioxide Anion Gap BUN Creatinine Estim Creat Clear Calc Estimated GFR POC Glucose 112 94 Random Glucose Calcium Phosphorus Magnesium B-Natriuretic Peptide Microbiology Microbiology Results: Microbiology 12/31/20 15:59 Sputum - Suctioned Gram Stain - Final 12/31/20 15:59 Sputum - Suctioned Sputum Culture - Final 12/30/20 06:29 Blood - Venous Blood Culture - Preliminary No growth after 48 hours. 12/30/20 06:20 Blood - Venous Blood Culture - Preliminary No growth after 48 hours. 12/30/20 06:37 Kidney - Jones Catheter Urine Culture - Final No growth. 12/27/20 17:56 Sputum - Suctioned Gram Stain - Final 12/27/20 17:56 Sputum - Suctioned Sputum Culture - Final 12/27/20 17:53 Urine clean catch - Clean Catch Midstream Urine Culture - Final No growth. Progress Note: A&P Assessment and plan (1) Hypersensitivity pneumonitis: Status: Acute (2) Amiodarone pulmonary toxicity: Status: Acute (3) Hemothorax on right: Status: Acute (4) Acute hypercapnic respiratory failure due to obstructive sleep apnea: Status: Acute (5) Acute renal failure due to tubular necrosis: Status: Acute (6) Sick sinus syndrome: Status: Acute (7) Symptomatic bradycardia: Status: Acute (8) Sleep apnea: Status: Acute (9) PAF (paroxysmal atrial fibrillation): Status: Acute (10) Metabolic alkalosis: Status: Acute (11) Cardiac arrest: Status: Acute (12) Dysphagia: Status: Acute (13) Heart failure with preserved ejection fraction: Status: Acute (14) Metabolic alkalosis: Status: Acute (15) Hyperkalemia: Status: Acute (16) Hyponatremia: Status: Acute (17) Acute hyponatremia: Status: Acute (18) CHF (congestive heart failure): Status: Acute (19) Fluid overload: Status: Acute (20) Acute diastolic CHF (congestive heart failure): Status: Acute (21) Uncontrolled hypertension: Status: Acute (22) SIADH (syndrome of inappropriate ADH production): Status: Acute Assessment and Plan: So amiodarone was stopped and the Zosyn was stopped Solu-Medrol was started and she will remain on the ventilator and of course the chest tube will remain in as well for now and we will introduce beta blockade plus digoxin for rate control
[2021-01-03] MEDS: methylPREDNISolone Sod Succ 125 MG/2 ML VIAL IVPUSH ×2 (16:58→21:28)
[2021-01-03 18:03] LABS: Glucose, Whole Blood 84 mg/dL (60-115)
[2021-01-03] MEDS: Albumin Human 25 % 50 ML 100 ML IV (21:27)
[2021-01-03] MEDS: Metoprolol Tartrate 5 MG/5 ML VIAL IVPUSH (21:49)
[2021-01-03] MEDS: Furosemide 20 MG/2 ML VIAL IVPUSH (21:57)
[2021-01-03 23:40] LABS: Glucose, Whole Blood 152 mg/dL (60-115)
[2021-01-04] VITALS (32 sets, daily range): BP systolic 104–187; BP diastolic 41–86; PULSE 90–142; RESP 16–28; TEMP 37.3–38.1; O2SAT 94–100
[2021-01-04] MEDS: dexmedeTOMIDidine HCL/NS 400 MCG/100 ML INFUS..BTL 16.53 MCG IVCONT ×2 (00:13→06:16)
[2021-01-04] MEDS: 0.9 % Sodium Chloride Flush 3 ML SYRINGE IVFLUSH ×4 (00:14→20:11)
[2021-01-04 00:23] LABS: Glucose, Whole Blood 154 mg/dL (60-115)
[2021-01-04] MEDS: methylPREDNISolone Sod Succ 125 MG/2 ML VIAL IVPUSH (04:36)
[2021-01-04 05:29] LABS: VBG Base Excess 17.3 mmol/L; VBG HCO3 41 mmol/L (22-26); VBG pCO2 48 mmHg; VBG pH 7.54 (7.32-7.43); VBG pO2 47 mmHg
[2021-01-04 05:38] LABS: Venous Blood Gas Refer to POC result
[2021-01-04 05:44] LABS: Basophils Percent Auto 0.1 % (0-2); Hematocrit 30.2 % (37-47); Hemoglobin 9.4 g/dl (12.0-16.0); Imm Gran Abs Auto 0.17 X10*3/uL (0.00-0.03); Imm Gran Pct Auto 1.8 % (0.0-0.4); Lymphocytes Absolute Auto 0.2 X10*3/uL (1.2-4.9); Lymphocytes Percent Auto 2.2 % (20-40); MANUAL DIFF FLAG SCAN; Mean Corpuscular HGB Conc 31.1 g/dl (31.0-35.0); Mean Corpuscular Hemoglobin 30.7 pg (27.0-33.0); Mean Corpuscular Volume 98.7 fL (80-98); Mean Platelet Volume 10.6 fL (9.4-12.3); Monocytes Absolute Auto 0.1 X10*3/uL (0.1-1.2); Monocytes Percent Auto 1.2 % (2-11); Neutrophils Absolute Auto 9.1 X10*3/uL (2.0-8.3); Neutrophils Percent Auto 94.7 % (45-73); Platelet Count 181 X10*3/uL (160-400); Red Blood Count 3.06 X10*6/uL (4.20-5.50); Red Cell Distribution Width 16.4 % (11.0-16.0); SCAN SMEAR FLAG 1; White Blood Count 9.6 X10*3/uL (4.8-10.8)
[2021-01-04 05:57] LABS: Albumin Level 3.1 g/dL (3.5-5.0)
[2021-01-04 06:02] LABS: INTERNATIONAL NORM RATIO 1.4 (0.9-1.1); Prothrombin Time 16.4 SEC (10.8-13.0); SLIDE REVIEW VERIFIED
[2021-01-04 06:05] LABS: Partial Thromboplastin Time 24.2 SEC (24.1-38.0)
[2021-01-04 06:07] LABS: B Type Natriuretic Peptide 996 pg/mL (<100)
[2021-01-04 06:10] LABS: Anion Gap 13 (12-20); Blood Urea Nitrogen 19 mg/dL (9-16); Calcium 7.8 mg/dL (8.4-10.2); Carbon Dioxide 36 mmol/L (22-29); Chloride 103 mmol/L (96-108); Creatinine Clr Calc Pharmacy 110.5; Estimated Glomerular Filt Rate > 60; Glucose Random 159 mg/dL (60-115); Magnesium 1.7 mg/dL (1.6-2.6); Phosphorus 2.1 mg/dL (2.7-4.5); Potassium 3.5 mmol/L (3.3-5.1); Sodium 148 mmol/L (135-145)
[2021-01-04 06:12] LABS: Glucose, Whole Blood 164 mg/dL (60-115)
[2021-01-04] MEDS: Insulin Lispro 100 UNIT/ML 3 ML VIAL SUBCUT (06:16)
[2021-01-04] MEDS: Dextrose 5 % 500 ML 250 ML IV (06:27)
[2021-01-04] MEDS: Albuterol/Iprat 2.5/0.5MG 3 ML AMPUL.NEB INHALE (07:39)
[2021-01-04] MEDS: acetaZOLAMIDE sodium 500 MG VIAL 250 MG IVPUSH ×2 (08:38→20:10)
[2021-01-04] MEDS: Digoxin 0.125 MG TABLET PO (08:39)
[2021-01-04] MEDS: Famotidine/PF 20 MG/2 ML VIAL IVPUSH (08:39)
[2021-01-04] MEDS: Chlorhexidine Gluc Oral Rinse 15 ML MOUTHWASH BUCCAL (08:39)
[2021-01-04] MEDS: Albumin Human 25 % 100 ML IV ×3 (08:39→20:10)
[2021-01-04] MEDS: Metoprolol Tartrate 12.5 MG HALFTAB PO (08:39)
[2021-01-04] MEDS: Potassium Phosphate 30 MMOL in 0.9 % Sodium Chloride 500 ML 85 MMOL IV (09:16)
--- NOTE | 2021-01-04 10:13 | P.PNCC_ITS ---
Subjective Subjective Date of Service: 01/04/21 Interval History: 75-year-old lady with underlying diabetes mellitus, morbid obesity, ANITA noncompliant with CPAP, hypertension, AFib on Eliquis, CAD, anxiety, with recent admission for AFib requiring cardioversion, admitted on December 13 with dyspnea, nausea, and vomiting, treated for hyponatremia and congestive heart failure, also noted to have esophageal stricture, status post EGD on 12/24 with balloon dilatation, further hospital course complicated by acute on chronic hypoxic and hypercapnic respiratory failure, with what appears to have been a bradycardic episode with possible cardiac arrest on 12/27, status post 10 minutes of CPR, intubated during procedure, attempting to talk after return of spontaneous circulation, thus did not undergo hypothermia. Extubated on 12/29, requiring right-sided chest tube on 12/30 for right hemothorax, very intubated on 12/30 for worsening respiratory status, extubated 01/04/2021. No events overnight. Critical Care Time (minutes): 60 Physical Exam Vital Signs: Vital Signs: Last Vital Signs Temp 100.6 F H 01/04/21 09:00 Pulse 94 01/04/21 09:00 Resp 24 H 01/04/21 09:00 BP 129/48 L 01/04/21 09:00 Pulse Ox 97 01/04/21 09:00 Oxygen Flow Rate 2 12/26/20 15:00 Body Mass Index 39.2 Const: General: no acute distress, alert and awake Nutritional Appearance: obese Eyes: Sclerae: sclerae normal EOM: EOMs intact bilaterally Neck: Neck: Yes no lymphadenopathy, Yes trachea midline and Yes supple Resp: Effort & Inspection: normal respiratory effort and no respiratory distress Auscultation: crackles (Diffuse bilateral) Cardio: Rate: tachycardic Rhythm: abnormal rhythm irregularly irregular Heart sounds: no gallops, no murmurs and no rubs GI: Palpation (GI): Soft to palpation and Other GI palpation findings present ( Nontender) Auscultation: normal bowel sounds Extrem: General: No clubbing, No cyanosis and Yes pedal edema (1+ bilateral) Objective Data Labs CBC & Chem 7: 01/04/21 05:17 01/04/21 05:17 Labs: Laboratory Results - last 24 hr 01/03/21 01/03/21 01/03/21 11:42 17:58 23:36 WBC RBC Hgb Hct MCV MCH MCHC RDW Plt Count MPV Immature Gran % (Auto) Neut % (Auto) Lymph % (Auto) [place] % (Auto) Eos % (Auto) Baso % (Auto) Lymph # (Auto) [place] # (Auto) Eos # (Auto) Baso # (Auto) Abs Immat Gran (auto) Absolute Neuts (auto) Absolute Nucleated RBC Nucleated RBC % (auto) Smear Tech's Comments PT INR APTT VBG pH VBG pCO2 VBG pO2 VBG HCO3 VBG O2 Saturation VBG Base Excess Sodium Potassium Chloride Carbon Dioxide Anion Gap BUN Creatinine Estim Creat Clear Calc Estimated GFR POC Glucose 94 84 152 H Random Glucose Calcium Phosphorus Magnesium B-Natriuretic Peptide Albumin 01/03/21 01/04/21 01/04/21 23:54 05:17 05:17 WBC 9.6 RBC 3.06 L Hgb 9.4 L Hct 30.2 L MCV 98.7 H MCH 30.7 MCHC 31.1 RDW 16.4 H Plt Count 181 D MPV 10.6 Immature Gran % (Auto) 1.8 H Neut % (Auto) 94.7 H Lymph % (Auto) 2.2 L [place] % (Auto) 1.2 L Eos % (Auto) 0.0 Baso % (Auto) 0.1 Lymph # (Auto) 0.2 L [place] # (Auto) 0.1 Eos # (Auto) 0.0 Baso # (Auto) 0.0 Abs Immat Gran (auto) 0.17 H Absolute Neuts (auto) 9.1 H Absolute Nucleated RBC 0.000 Nucleated RBC % (auto) 0.0 Smear Tech's Comments VERIFIED PT INR APTT VBG pH VBG pCO2 VBG pO2 VBG HCO3 VBG O2 Saturation VBG Base Excess Sodium Potassium Chloride Carbon Dioxide Anion Gap BUN Creatinine Estim Creat Clear Calc Estimated GFR POC Glucose 154 H Random Glucose Calcium Phosphorus Magnesium B-Natriuretic Peptide Albumin 3.1 L D 01/04/21 01/04/21 01/04/21 05:17 05:17 05:17 WBC RBC Hgb Hct MCV MCH MCHC RDW Plt Count MPV Immature Gran % (Auto) Neut % (Auto) Lymph % (Auto) [place] % (Auto) Eos % (Auto) Baso % (Auto) Lymph # (Auto) [place] # (Auto) Eos # (Auto) Baso # (Auto) Abs Immat Gran (auto) Absolute Neuts (auto) Absolute Nucleated RBC Nucleated RBC % (auto) Smear Tech's Comments PT 16.4 H INR 1.4 H APTT 24.2 VBG pH VBG pCO2 VBG pO2 VBG HCO3 VBG O2 Saturation VBG Base Excess Sodium 148 H Potassium 3.5 Chloride 103 Carbon Dioxide 36 H Anion Gap 13 BUN 19 H Creatinine 0.57 Estim Creat Clear Calc 110.5 Estimated GFR > 60 POC Glucose Random Glucose 159 H Calcium 7.8 L D Phosphorus 2.1 L Magnesium 1.7 B-Natriuretic Peptide 996 H Albumin 01/04/21 01/04/21 05:23 05:52 WBC RBC Hgb Hct MCV MCH MCHC RDW Plt Count MPV Immature Gran % (Auto) Neut % (Auto) Lymph % (Auto) [place] % (Auto) Eos % (Auto) Baso % (Auto) Lymph # (Auto) [place] # (Auto) Eos # (Auto) Baso # (Auto) Abs Immat Gran (auto) Absolute Neuts (auto) Absolute Nucleated RBC Nucleated RBC % (auto) Smear Tech's Comments PT INR APTT VBG pH 7.54 H VBG pCO2 48 VBG pO2 47 VBG HCO3 41 H VBG O2 Saturation 80.0 VBG Base Excess 17.3 Sodium Potassium Chloride Carbon Dioxide Anion Gap BUN Creatinine Estim Creat Clear Calc Estimated GFR POC Glucose 164 H Random Glucose Calcium Phosphorus Magnesium B-Natriuretic Peptide Albumin Microbiology Microbiology Results: Microbiology 12/30/20 06:29 Blood - Venous Blood Culture - Final No growth after 5 days. 12/30/20 06:20 Blood - Venous Blood Culture - Final No growth after 5 days. 12/31/20 15:59 Sputum - Suctioned Gram Stain - Final 12/31/20 15:59 Sputum - Suctioned Sputum Culture - Final 12/30/20 06:37 Kidney - Jones Catheter Urine Culture - Final No growth. 12/27/20 17:56 Sputum - Suctioned Gram Stain - Final 12/27/20 17:56 Sputum - Suctioned Sputum Culture - Final 12/27/20 17:53 Urine clean catch - Clean Catch Midstream Urine Culture - Final No growth. Progress Note: A&P Assessment and plan (1) Acute diastolic CHF (congestive heart failure): Status: Acute Assessment and Plan: Assessment: 75-year-old lady with underlying obesity, ANITA, CAD congestive heart failure, AFib, initially admitted with exacerbation of congestive heart failure with hospital course complicated by esophageal stricture status post balloon dilatation, cardiac arrest with return of spontaneous circulation after 10 minutes of CPR, right hemothorax status post chest tube placement, acute on chronic hypoxic and hypercapnic respiratory failure Plan: Neuro: No acute issues. Cardiac: Cardiac arrest status post returned spontaneous circulation after 10 minutes of CPR. Underlying diastolic congestive heart failure. Improving with diuresis. Underlying AFib, now on rate and rhythm control. Pulmonary: Acute hypoxic and hypercapnic respiratory failure initially intubated during the CPR, also underlying ANITA with obesity hypoventilation, further complicated by right-sided hemothorax. Thoracic surgery service care appreciated. Chest tube continues with significant drainage. Extubated 01/04/2021. Nocturnal CPAP. Renal: Acute kidney injury a, resolved. Endo: No acute issues. Underlying diabetes mellitus. GI: No acute issues. ID: No acute issues Heme/Onc: No acute issues. Psych: No acute issues. Miscellaneous: No acute issues. Prophylaxis: Intermittent pneumatic compression, no pharmacologic prophylaxis secondary to hemothorax Diet: Pending swallow evaluation Critical care time spent: 60 minutes (2) Cardiac arrest: Status: Acute (3) PAF (paroxysmal atrial fibrillation): Status: Acute (4) Sick sinus syndrome: Status: Acute (5) Hemothorax on right: Status: Acute (6) Sleep apnea: Status: Acute (7) Acute and chronic respiratory failure: Status: Acute (8) CAD (coronary artery disease): Status: Acute
--- NOTE | 2021-01-04 10:24 | PC.NURSE ---
Addendum entered by Akila Wade RN 01/04/21 17:40: PRECEDEX GTT REMAINS OFF SINCE 1048. PAIN TO LEFT SIDE CHEST/RIBS AND CHRONIC BACK PAIN TREATED WITH PRN FENTANYL WITH POSITIVE EFFECT. CHEST TUBE DRAINAGE FROM 7402-8159 = 340 ML SEROSANGUINOUS. NEW CHEST TUBE CANISTER PLACED AT 1730, RESUMED SETTINGS. WILL CONTINUE TO MONITOR. THORACIC PA BEDSIDE DURING SHIFT TO ASSESS AND ORDERED CXR. PRN LOPRESSOR 5 MG IVP GIVEN AT 1636 FOR INCREASED HR 140S AND SBP 160-170S, MD AWARE. TLC DRESSING CHANGED. Original Note: EXTUBATED AT 0903 TO 2L NC. WILL CONTINUE TO MONITOR.
[2021-01-04] MEDS: fentaNYL citrate/PF 100 MCG/2 ML VIAL 50 MCG IVPUSH ×3 (10:52→20:26)
[2021-01-04 12:26] LABS: Glucose, Whole Blood 150 mg/dL (60-115)
--- NOTE | 2021-01-04 13:33 | P.PNTS_ITS ---
Subjective Subjective Date of Service: 01/04/21 Interval history: The patient was extubated this morning after successful CPAP trials. Current be on room air with oxygen saturations in the mid 90s. Denies any shortness of breath at rest however does complain of some left-sided chest discomfort overlying her rib fractures. Denies any pain surrounding right-sided chest tube which continues to put out a significant amount of fluid. Approximately 750 cc of serosanguineous fluid output in the past 24 hours. There is no detectable chest tube air leak. Patient remains in AFib with rate controlled. Continues to be diuresed with adequate amount of pale yellow urine output. She denies any fever, chills, abdominal pain, dizziness, blurred vision, nausea, vomiting. Physical Exam Vital Signs: Vital Signs: Last Vital Signs Temp 99.5 F 01/04/21 13:00 Pulse 98 01/04/21 13:00 Resp 20 01/04/21 13:00 BP 152/62 H 01/04/21 13:00 Pulse Ox 99 01/04/21 13:00 Oxygen Flow Rate 2 12/26/20 15:00 Body Mass Index 39.2 Const: Other: Awake and alert to person and place. No acute distress. HENMT: Head: Yes normal to inspection and Yes normocephalic Eyes: General: appearance normal, both eyes and all related structures Conjunctivae: conjunctivae normal Sclerae: sclerae normal Pupils: Equal, round and reactive pupils present Neck: Other: Trachea midline with no evidence of subcutaneous air or crepitus along neck. Chest: Other: Right-sided chest tube remains in place set at -20 L WS with dressing which is clean and dry, no detectable air leak noted, continues to have significant serosanguineous fluid output (approximately 750 cc in the past 24 hours). Breath sounds are diminished bilaterally throughout all lung carrizales no audible wheezes or rhonchi. Cardio: Other: Irregularly irregular rhythm with a rate ranging between 90-100 B p.m. Heart sounds: no gallops, no murmurs and no rubs GI: Other: Obese, soft, nontender. : Other: Jones catheter remains in place with large amount of pale yellow late urine present Neuro: Cranial nerves: Yes Equal, round and reactive pupils present Extrem: Other: Bilateral upper and lower extremities +1 edema Progress Note: A&P Assessment and plan (1) Hemothorax on right: Status: Acute Assessment and Plan: Pt is a 75-year-old female with a past medical history of type 2 diabetes, morbid obesity, COPD, CHF, atrial fibrillation with a home regimen of Eliquis who was admitted for weakness and probable acute on chronic diastolic heart failure. On 12/27/20, patient had a PEA arrest resulting in trauma to the chest cavity following 10 mins of CPR with findings on chest CT of left-sided rib fractures 2-7 and right-sided hemothorax. Now s/p R pigtail chest tube placement on 12/30/20. Chest CTs performed today on 01/03/2021. Shows increased aeration of right lung after pleural fluid evacuation with significantly decreased right pleural effusion and decreased right lung atelectasis.. Increased density extensiveness of patchy bilateral ground-glass opacities with areas of interstitial thickening given a peeling appearance. Minimally displaced acute fractures of the left anterolateral 3rd through 7th ribs. Patient has had approximately 750 cc of serosanguineous drainage over past 24 hours. It appears right-sided pleural cavity bleed this has subsided and continued pleural fluid output may be a result patient has CHF, fluid overload, 3rd spacing, however would continue to hold off anticoagulation at this point to ensure resolution pleural hemorrhage. Chest tube should remain indwelling until fluid out put becomes less than 200 cc over 24 hr period Chest tube remains to -20 cm continuous low wall suction. No visible air leak on exam. Chest x-ray ordered for this morning showed small right-sided pleural effusions Order placed for nursing to [facility] every 2 hours for accurate chest tube output monitoring. Patient s/p 1 unit of FFP's: INR now 1.4. Hemoglobin 9.4. Vital signs are stable. Patient remains in A. fib with heart rate in the 90- 100s. Pt needs to remain off anticoagulation until full resolution of hemothoarx. DVT prophylaxis: Intermittent pneumatic compression stockings Fall Risk Details Current Medications: Current Medications Generic Name Dose Route Start Last Admin Trade Name Freq PRN Reason Stop Dose Admin Acetazolamide 250 mg 01/04/21 09:00 01/04/21 08:38 Acetazolamide Sodium 500 Mg Vial IVPUSH 01/06/21 21:01 250 mg BID DEE Administration Digoxin 0.125 mg 01/04/21 09:00 01/04/21 08:39 Digoxin 0.125 Mg Tablet PO 0.125 mg DAILY DEE Administration Fentanyl 50 mcg 01/04/21 10:32 01/04/21 10:52 Fentanyl Citrate/Pf 100 Mcg/2 Ml Vial IVPUSH 50 mcg Q3H PRN Administration Pain, Moderate (Pain Scale 4-6 Potassium Phosphate 30 mmol/ 510 mls @ 85 mls/hr 01/04/21 09:00 01/04/21 09:16 Sodium Chloride IV 01/04/21 14:59 85 mls/hr ONCE ONE Administration Albumin Human 100 mls @ 100 mls/hr 01/04/21 09:00 01/04/21 09:54 Kedbumin 25 % IV 01/05/21 03:59 Infused Q6H [facility] Infusion Insulin Human Lispro 0 unit 12/28/20 12:00 01/04/21 12:23 Insulin Lispro 100 Unit/Ml 3 Ml Vial SUBCUT Not Given Q6H [facility] Protocol Metoprolol Tartrate 5 mg 01/03/21 14:08 01/03/21 21:49 Metoprolol Tartrate 5 Mg/5 Ml Vial IVPUSH 5 mg Q6H PRN Administration Heart Rate >100 Metoprolol Tartrate 12.5 mg 01/04/21 09:00 01/04/21 08:39 Metoprolol Tartrate 12.5 Mg Halftab PO 12.5 mg BID [facility] Administration Protocol Pharmacy Consult 1 each 12/31/20 14:54 Consult Rx Vancomycin Dosing MISCELLANE DAILY PRN Consult order Sodium Chloride 3 ml 12/14/20 00:00 01/04/21 08:38 0.9 % Sodium Chloride Flush 3 Ml Syringe IVFLUSH 3 ml QSHIFT [facility] Administration Time Spent With Patient Time: Total time spent is greater than 50% in coordination of care (as documented) at patient's floor/unit and/or counseling patient: Time with patient: 15 - 24 minutes Procedures Date of Service Date of Service: 01/04/21
--- NOTE | 2021-01-04 13:55 | MHC.CLN ---
F/U PT EXTUBATED THIS AM OG TUBE REMOVED; TF D/C WILL UPDATE DIET TO NPO PENDING SWALLOW EVAL FOLLOWING
[2021-01-04] MEDS: Metoprolol Tartrate 5 MG/5 ML VIAL IVPUSH ×2 (16:36→22:23)
[2021-01-04 17:47] LABS: Glucose, Whole Blood 129 mg/dL (60-115)
[2021-01-05] VITALS (40 sets, daily range): BP systolic 76–187; BP diastolic 23–74; PULSE 65–130; RESP 10–38; TEMP -12.4–37.5; O2SAT 89–100
[2021-01-05 00:06] LABS: Glucose, Whole Blood 122 mg/dL (60-115)
[2021-01-05] MEDS: Albumin Human 25 % 100 ML IV (03:33)
[2021-01-05] MEDS: Metoprolol Tartrate 5 MG/5 ML VIAL IVPUSH ×2 (04:25→08:30)
[2021-01-05] MEDS: fentaNYL citrate/PF 100 MCG/2 ML VIAL 50 MCG IVPUSH ×4 (04:26→14:20)
[2021-01-05 05:15] LABS: VBG HCO3 42 mmol/L (22-26); VBG pCO2 74 mmHg; VBG pH 7.36 (7.32-7.43); VBG pO2 49 mmHg
[2021-01-05 05:25] LABS: Venous Blood Gas Refer to POC result
[2021-01-05 05:37] LABS: Basophils Percent Auto 0.1 % (0-2); Hematocrit 29.7 % (37-47); Hemoglobin 8.8 g/dl (12.0-16.0); Imm Gran Abs Auto 0.21 X10*3/uL (0.00-0.03); Imm Gran Pct Auto 1.1 % (0.0-0.4); Lymphocytes Absolute Auto 0.4 X10*3/uL (1.2-4.9); Lymphocytes Percent Auto 1.9 % (20-40); MANUAL DIFF FLAG SCAN; Mean Corpuscular HGB Conc 29.6 g/dl (31.0-35.0); Mean Corpuscular Hemoglobin 31.3 pg (27.0-33.0); Mean Corpuscular Volume 105.7 fL (80-98); Mean Platelet Volume 10.4 fL (9.4-12.3); Monocytes Absolute Auto 1.2 X10*3/uL (0.1-1.2); Monocytes Percent Auto 6.4 % (2-11); Neutrophils Absolute Auto 16.8 X10*3/uL (2.0-8.3); Neutrophils Percent Auto 90.5 % (45-73); Platelet Count 264 X10*3/uL (160-400); Red Blood Count 2.81 X10*6/uL (4.20-5.50); Red Cell Distribution Width 16.9 % (11.0-16.0); SCAN SMEAR FLAG 1; White Blood Count 18.6 X10*3/uL (4.8-10.8)
[2021-01-05 05:51] LABS: Glucose, Whole Blood 117 mg/dL (60-115)
[2021-01-05 06:27] LABS: Alanine Aminotransferase 45 U/L (0-31); Albumin Level 4.3 g/dL (3.5-5.0); Alkaline Phosphatase 54 U/L (39-117); Anion Gap 12 (12-20); Aspartate Amino Transferase 41 U/L (5-31); Bilirubin Total 0.8 mg/dL (0.0-1.0); Blood Urea Nitrogen 23 mg/dL (9-16); Calcium 8.5 mg/dL (8.4-10.2); Carbon Dioxide 38 mmol/L (22-29); Chloride 104 mmol/L (96-108); Estimated Glomerular Filt Rate > 60; Glucose Random 117 mg/dL (60-115); Phosphorus 3.7 mg/dL (2.7-4.5); Potassium 3.4 mmol/L (3.3-5.1); Sodium 151 mmol/L (135-145)
[2021-01-05 06:28] LABS: SLIDE REVIEW VERIFIED
[2021-01-05] MEDS: Dextrose 5 % 1,000 ML 100 ML IVCONT (08:00)
[2021-01-05] MEDS: acetaZOLAMIDE sodium 500 MG VIAL 250 MG IVPUSH ×2 (08:34→20:28)
[2021-01-05] MEDS: 0.9 % Sodium Chloride Flush 3 ML SYRINGE IVFLUSH ×3 (08:42→20:29)
--- NOTE | 2021-01-05 10:40 | MHC.SLORD ---
Speech Language Pathology Order Status: MEMORY CARE PROGRAM DIRECTOR attempted to see pt this morning for bedside dysphagia evaluation. Pt was not appropriate for PO trials this morning, as her O2 sats were low. Pt was extubated yesterday at 9:03am. MEMORY CARE PROGRAM DIRECTOR will re-attempt evaluation tomorrow morning. MEMORY CARE PROGRAM DIRECTOR spoke to RN and MD who agreed with plan.
[2021-01-05 11:29] LABS: ABG Base Excess 11.2 mmol/L; ABG HCO3 41 mmol/L (22-26); ABG pCO2 90 mmHg (32-45); ABG pCO2 TC 92 mmHg (32-45); ABG pH 7.26 (7.35-7.45); ABG pH TC 7.25 (7.35-7.45); ABG pO2 84 mmHg (83-108); ABG pO2 TC 87 (83-108)
[2021-01-05 11:40] LABS: ABG Refer to POC result
[2021-01-05] MEDS: propofoL 200 MG/20 ML VIAL 80 MG IVPUSH (12:00)
[2021-01-05] MEDS: propofoL 1,000 MG/100 ML VIAL 19.84 MG IVCONT ×2 (12:00→20:28)
--- NOTE | 2021-01-05 12:08 | MHC.CLN ---
F/U PT REMAINS NPO DIE REPAIR FOLLOWING FOR APPROPRIATE DIET CONSISTENCY FOLLOWING
--- NOTE | 2021-01-05 12:13 | PM.PNTS ---
Subjective Subjective Date of Service: 01/05/21 Patient reports: other Interval history: Patient seen and examined this afternoon. At time of my exam, patient was getting intubated for the 3rd time so far this admission. ICU emergency dept tech, respiratory therapy, and nursing at bedside to assist with intubation. Unable to obtain ROS or subjective data from patient at this time. Patient appears comfortable with ET tube in place. Right chest tube is currently to -20cm continuous LWS. Physical Exam Vital Signs: Vital Signs: Last Vital Signs Temp 99.1 F 01/05/21 09:00 Pulse 96 01/05/21 11:00 Resp 23 H 01/05/21 11:00 BP 161/68 H 01/05/21 11:00 Pulse Ox 93 01/05/21 11:00 Oxygen Flow Rate 2 12/26/20 15:00 Body Mass Index 39.2 Const: General: no acute distress Nutritional Appearance: well nourished Limitations: no limitations HENMT: Head: Yes normal to inspection, Yes normocephalic and Yes atraumatic Mouth: Normal oral and palatal mucosa present Eyes: Visual Carrizales: normal visual carrizales by confrontation Alignment and Position: alignment normal Periorbital: periorbital findings normal Conjunctivae: conjunctivae normal Sclerae: sclerae normal Pupils: Equal, round and reactive pupils present and Pupil accommodation reflex normal EOM: EOMs intact bilaterally Neck: Neck: Yes normal visual inspection, Yes full ROM, Yes no lymphadenopathy, Yes trachea midline, Yes supple, No lymphadenopathy, No tender and No tracheal deviation Lymphatic: no lymphadenopathy noted Chest: Chest palpation & inspection: normal inspection of the chest and no crepitus Resp: Other: Patient now intubated. ET tube in place. Right chest tube to -20cm continuous LWS. Draining serousanguinous drainage. 900cc of serousanguinous drainage in atrium, Put out 650cc over the past 24hrs per nursing documentation. Lung sounds with rhonchi scattered throughout. Fine crackles to bilateral bases. Effort & Inspection: normal respiratory effort, normal respiratory pattern, no pursed lip breathing, no respiratory distress, no stridor, not tachypneic and no tracheal deviation Cardio: Jugular venous distension: no JVD Palpation: normal PMI Rate: regular rate Rhythm: regular rhythm Heart sounds: S1 normal heart sound present, S2 normal heart sound present, no click, no gallops, no murmurs and no rubs GI: Inspection: Yes normal to inspection Auscultation: normal bowel sounds : General: Yes no CVA tenderness Back/Spine/Pelvis: Back: no CVA tenderness Thoracic/Lumbar Spine: thoracic and lumbar spine normal to inspection Skin: Other: Ecchymosis noted to right lateral chest General skin exam: dry skin Neuro: General: gait normal Cranial nerves: Yes Equal, round and reactive pupils present Extrem: General: Yes normal to inspection, Yes full ROM, Yes capillary refill normal, Yes normal gait and Yes edema (2+ to BLE and BUE) Progress Note: A&P Assessment and plan (1) Hemothorax on right: Status: Acute Assessment and Plan: Patient is a 75 y.o. female with a PMG of T2DM, morbid obesity, CHF, COPD, AFIB on Eliquis who had a PEA arrest on 12/27 requiring 10 mins of CPR and subsequently developed a right hemothorax and multiple left-sided rib fractures (3-7) following trauma to chest from CPR. She was extubated on 01/04/21 but re-intubated on 01/05/21 due to hypoxemia secondary to pulmonary aspiration. Right hemothorax s/p pigtail placement on 12/30 CXR this am showed no significant change since 01/04/2021. Persistent bilateral multifocal airspace opacities and small pleural effusions. Chest tube remains to -20cm continuous LWS Per Dr. Alejo, will keep chest tube in place until output is < 200cc in 24 hours Chest tube has put out 650cc in the past 24 hours (01/04/21 0700-01/05/21 0700). At time of my assessment, patient had 900cc of serousanguinous drainage in atrium. No visible air leak. Eliquis and anti-coagulation continues to remain on hold for hx of Afib. Coags WNL, INR 1.4 Nursing to continue to record chest tube output q2-4 hours in I/O's and nolan on chest tube atrium. At this point, high chest tube output likely related to fluid overload secondary to 3rd spacing or diastolic heart failure. Now s/p diuresis. Chest tube drainage is most certainly less hemorrhagic in nature, now serousanguinous. No air leak on exam Chest CT showed continued minimally displaced acute fractures of the left anterolateral third through seventh ribs. Increased nonspecific groundglass opacities within the lungs bilaterally. Respiratory motion limits sensitivity. Significantly decreased right pleural effusion and decreased right lung atelectasis. VAP precautions: while patient on ventilator DVT prophylaxis: intermittent pneumatic compression stockings. Case discussed with Dr. Alejo. Thank you for this consult. Will continue to follow for chest tube management. Fall Risk Details Current Medications: Current Medications Generic Name Dose Route Start Last Admin Trade Name Freq PRN Reason Stop Dose Admin Acetazolamide 250 mg 01/04/21 09:00 01/05/21 08:34 Acetazolamide Sodium 500 Mg Vial IVPUSH 01/06/21 21:01 250 mg BID DEE Administration Digoxin 0.125 mg 01/04/21 09:00 01/05/21 08:43 Digoxin 0.125 Mg Tablet PO Not Given DAILY DEE Fentanyl 50 mcg 01/05/21 10:55 01/05/21 11:00 Fentanyl Citrate/Pf 100 Mcg/2 Ml Vial IVPUSH 50 mcg Q2H PRN Administration Pain, Moderate (Pain Scale 4-6 Dextrose 1,000 mls @ 100 mls/hr 01/05/21 08:00 01/05/21 08:00 D5w IVCONT 01/05/21 17:59 100 mls/hr .Q10H DEE Administration Insulin Human Lispro 0 unit 12/28/20 12:00 01/05/21 05:49 Insulin Lispro 100 Unit/Ml 3 Ml Vial SUBCUT Not Given Q6H DEE Protocol Metoprolol Tartrate 5 mg 01/03/21 14:08 01/05/21 08:30 Metoprolol Tartrate 5 Mg/5 Ml Vial IVPUSH 5 mg Q6H PRN Administration Heart Rate >100 Metoprolol Tartrate 50 mg 01/05/21 09:00 01/05/21 08:44 Metoprolol Tartrate 50 Mg Tablet PO Not Given BID [facility] Protocol Sodium Chloride 3 ml 12/14/20 00:00 01/05/21 08:42 0.9 % Sodium Chloride Flush 3 Ml Syringe IVFLUSH 3 ml QSHIFT DEE Administration Time Spent With Patient Time: Total time spent is greater than 50% in coordination of care (as documented) at patient's floor/unit and/or counseling patient: Time with patient: less than 15 minutes Procedures Date of Service Date of Service: 01/05/21
--- NOTE | 2021-01-05 12:21 | W.PM.CCHP ---
Procedures Date of Service Date of Service: 01/05/21 Intubation Intubation Comments: Patient with acute hypoxemia secondary to pulmonary aspiration, not able to be cleared with nasotracheal suction, emergently intubated with 7.5 cuffed ET tube under glide scope visualization with no immediate complications. X-ray for ET tube position is pending. Sedative: propofol (80)
[2021-01-05 12:22] LABS: Glucose, Whole Blood 171 mg/dL (60-115)
[2021-01-05] MEDS: Insulin Lispro 100 UNIT/ML 3 ML VIAL SUBCUT (12:41)
--- NOTE | 2021-01-05 12:48 | P.PNCC_ITS ---
Subjective Subjective Date of Service: 01/05/21 Interval History: 75-year-old lady with underlying diabetes mellitus, morbid obesity, ANITA noncompliant with CPAP, hypertension, AFib on Eliquis, CAD, anxiety, with recent admission for AFib requiring cardioversion, admitted on December 13 with dyspnea, nausea, and vomiting, treated for hyponatremia and congestive heart failure, also noted to have esophageal stricture, status post EGD on 12/24 with balloon dilatation, further hospital course complicated by acute on chronic hypoxic and hypercapnic respiratory failure, with what appears to have been a bradycardic episode with possible cardiac arrest on 12/27, status post 10 minutes of CPR, intubated during procedure, attempting to talk after return of spontaneous circulation, thus did not undergo hypothermia. Extubated on 12/29, requiring right-sided chest tube on 12/30 for right hemothorax, very intubated on 12/30 for worsening respiratory status, extubated 01/04/2021. Overnight with worsening hypoxemia secondary to recurrent aspirations, with some improvement with nasotracheal suction. Earlier today with progressively worsening hypoxemia secondary to recurrent aspiration requiring re-intubation. Critical Care Time (minutes): 60 Physical Exam Vital Signs: Vital Signs: Last Vital Signs Temp 99.1 F 01/05/21 09:00 Pulse 95 01/05/21 12:00 Resp 30 H 01/05/21 12:00 BP 126/40 L 01/05/21 12:00 Pulse Ox 93 01/05/21 12:00 Oxygen Flow Rate 2 12/26/20 15:00 Body Mass Index 39.2 Const: General: no acute distress and other (Sedated on the vent) Nutritional Appearance: obese Eyes: Sclerae: sclerae normal EOM: EOMs intact bilaterally Neck: Neck: Yes no lymphadenopathy, Yes trachea midline and Yes supple Resp: Effort & Inspection: normal respiratory effort and no respiratory distress Auscultation: clear to auscultation bilaterally Cardio: Rate: regular rate Rhythm: abnormal rhythm irregularly irregular Heart sounds: no gallops, no murmurs and no rubs GI: Palpation (GI): Soft to palpation and Other GI palpation findings present ( Nontender) Auscultation: normal bowel sounds Extrem: General: No clubbing, No cyanosis and Yes pedal edema (Trace bilatera l) Objective Data Labs CBC & Chem 7: 01/05/21 05:15 01/05/21 05:15 Labs: Laboratory Results - last 24 hr 01/04/21 01/04/21 01/05/21 17:41 23:49 05:09 WBC RBC Hgb Hct MCV MCH MCHC RDW Plt Count MPV Immature Gran % (Auto) Neut % (Auto) Lymph % (Auto) [place] % (Auto) Eos % (Auto) Baso % (Auto) Lymph # (Auto) [place] # (Auto) Eos # (Auto) Baso # (Auto) Abs Immat Gran (auto) Absolute Neuts (auto) Absolute Nucleated RBC Nucleated RBC % (auto) Smear Tech's Comments O2 Saturation ABG pH at Pt Temp ABG pH (Temp Correct) ABG pCO2 at Pt Temp ABG pCO2 (Temp Corrct ABG pO2 at Pt Temp ABG pO2 (Temp Correct ABG HCO3 ABG Base Excess (Actual) VBG pH 7.36 VBG pCO2 74 VBG pO2 49 VBG HCO3 42 H VBG O2 Saturation 78.0 VBG Base Excess 14.0 Sodium Potassium Chloride Carbon Dioxide Anion Gap BUN Creatinine Estim Creat Clear Calc Estimated GFR POC Glucose 129 H 122 H Random Glucose Calcium Phosphorus Magnesium Total Bilirubin AST ALT Alkaline Phosphatase Total Protein Albumin 01/05/21 01/05/21 01/05/21 05:15 05:15 05:46 WBC 18.6 H RBC 2.81 L Hgb 8.8 L Hct 29.7 L MCV 105.7 H D MCH 31.3 MCHC 29.6 L RDW 16.9 H Plt Count 264 D MPV 10.4 Immature Gran % (Auto) 1.1 H Neut % (Auto) 90.5 H Lymph % (Auto) 1.9 L [place] % (Auto) 6.4 Eos % (Auto) 0.0 Baso % (Auto) 0.1 Lymph # (Auto) 0.4 L [place] # (Auto) 1.2 Eos # (Auto) 0.0 Baso # (Auto) 0.0 Abs Immat Gran (auto) 0.21 H Absolute Neuts (auto) 16.8 H Absolute Nucleated RBC 0.000 Nucleated RBC % (auto) 0.0 Smear Tech's Comments VERIFIED O2 Saturation ABG pH at Pt Temp ABG pH (Temp Correct) ABG pCO2 at Pt Temp ABG pCO2 (Temp Corrct ABG pO2 at Pt Temp ABG pO2 (Temp Correct ABG HCO3 ABG Base Excess (Actual) VBG pH VBG pCO2 VBG pO2 VBG HCO3 VBG O2 Saturation VBG Base Excess Sodium 151 H Potassium 3.4 Chloride 104 Carbon Dioxide 38 H Anion Gap 12 BUN 23 H Creatinine 0.67 Estim Creat Clear Calc 94.0 Estimated GFR > 60 POC Glucose 117 H Random Glucose 117 H Calcium 8.5 D Phosphorus 3.7 Magnesium 2.0 Total Bilirubin 0.8 AST 41 H D ALT 45 H Alkaline Phosphatase 54 Total Protein 6.0 L Albumin 4.3 D 01/05/21 01/05/21 11:22 12:14 WBC RBC Hgb Hct MCV MCH MCHC RDW Plt Count MPV Immature Gran % (Auto) Neut % (Auto) Lymph % (Auto) [place] % (Auto) Eos % (Auto) Baso % (Auto) Lymph # (Auto) [place] # (Auto) Eos # (Auto) Baso # (Auto) Abs Immat Gran (auto) Absolute Neuts (auto) Absolute Nucleated RBC Nucleated RBC % (auto) Smear Tech's Comments O2 Saturation 94.0 ABG pH at Pt Temp 7.26 L ABG pH (Temp Correct) 7.25 L ABG pCO2 at Pt Temp 90 H* ABG pCO2 (Temp Corrct 92 H* ABG pO2 at Pt Temp 84 ABG pO2 (Temp Correct 87 ABG HCO3 41 H ABG Base Excess (Actual) 11.2 VBG pH VBG pCO2 VBG pO2 VBG HCO3 VBG O2 Saturation VBG Base Excess Sodium Potassium Chloride Carbon Dioxide Anion Gap BUN Creatinine Estim Creat Clear Calc Estimated GFR POC Glucose 171 H Random Glucose Calcium Phosphorus Magnesium Total Bilirubin AST ALT Alkaline Phosphatase Total Protein Albumin Microbiology Microbiology Results: Microbiology 12/30/20 06:29 Blood - Venous Blood Culture - Final No growth after 5 days. 12/30/20 06:20 Blood - Venous Blood Culture - Final No growth after 5 days. 12/31/20 15:59 Sputum - Suctioned Gram Stain - Final 12/31/20 15:59 Sputum - Suctioned Sputum Culture - Final 12/30/20 06:37 Kidney - Jones Catheter Urine Culture - Final No growth. 12/27/20 17:56 Sputum - Suctioned Gram Stain - Final 12/27/20 17:56 Sputum - Suctioned Sputum Culture - Final 12/27/20 17:53 Urine clean catch - Clean Catch Midstream Urine Culture - Final No growth. Progress Note: A&P Assessment and plan (1) HTN (hypertension): Status: Acute Assessment and Plan: Assessment: 75-year-old lady with underlying obesity, ANITA, CAD congestive heart failure, AFib, initially admitted with exacerbation of congestive heart failure with hospital course complicated by esophageal stricture status post balloon dilatation, cardiac arrest with return of spontaneous circulation after 10 minutes of CPR, right hemothorax status post chest tube placement, acute on chronic hypoxic and hypercapnic respiratory failure Plan: Neuro: No acute issues. Cardiac: Cardiac arrest status post returned spontaneous circulation after 10 minutes of CPR. Underlying diastolic congestive heart failure. Improving with diuresis. Underlying AFib, now on rate and rhythm control. Pulmonary: Acute hypoxic and hypercapnic respiratory failure initially intubat ed during the CPR, also underlying ANITA with obesity hypoventilation, further complicated by right-sided hemothorax. Thoracic surgery service care appreciated. Chest tube continues with significant drainage. Extubated 01/04/2021. Required re-intubation on 01/05/2021 secondary to recurrent aspirat ion. Will require tracheostomy. Renal: Acute kidney injury a, resolved. Endo: No acute issues. Underlying diabetes mellitus. GI: No acute issues. ID: No acute issues Heme/Onc: No acute issues. Psych: No acute issues. Miscellaneous: No acute issues. Family discussion about of goals of care are in progress. Prophylaxis: Intermittent pneumatic compression, no pharmacologic prophylaxis secondary to hemothorax, ppi Diet: Tube feeds Critical care time spent: 60 minutes excluding separately billable procedures (2) CAD (coronary artery disease): Status: Acute (3) Acute and chronic respiratory failure: Status: Acute (4) Hemothorax on right: Status: Acute (5) Acute hypercapnic respiratory failure due to obstructive sleep apnea: Status: Acute (6) PAF (paroxysmal atrial fibrillation): Status: Acute (7) Cardiac arrest: Status: Acute (8) Pulmonary aspiration: Status: Acute (9) CHF (congestive heart failure): Status: Acute
[2021-01-05] MEDS: propofoL 1,000 MG/100 ML VIAL 33.07 MG IVCONT ×2 (14:17→17:00)
--- NOTE | 2021-01-05 14:25 | MHC.CM.PN ---
Pt was extubated on 01/04 and placed on CPAP - unfortunately, she began to show signs of respiratory failure, again, and required re-intubation. Cause is thought to be aspiration. Pt has had a prolonged hospital stay - 23 days and her admission has been complicated by bradycardia/?asystole requiring CPR and intubation. She was extubated x 2 but had to be reintubated each time. Pt has been accepted to [facility] but may require a higher level of care should she not be able to wean off ventilatory support or continue aspirating. MD planned to remove CT today as drainage has been minimal and hopefully, she can wean in the next few days and participate in a swallow eval for assistance with further management.
[2021-01-05] MEDS: Chlorhexidine Gluc Oral Rinse 15 ML MOUTHWASH BUCCAL ×2 (17:11→20:28)
[2021-01-05] MEDS: fentaNYL citrate/NS 1,000 MCG/100 ML PLAST..BAG 5 MCG IVCONT (17:12)
[2021-01-05 18:04] LABS: Glucose, Whole Blood 115 mg/dL (60-115)
--- NOTE | 2021-01-05 18:07 | PC.NURSE ---
Addendum entered by Rahda Carlson RN 01/05/21 18:52: Around 11:00 patient also noted to have frequent runs of VTACH on tele, MD aware. Original Note: This morning patient switched from CPAP to HFNC 55 L and 90%Fio2. Speech at bedside for swallow evaluation but patient unable to participate due to lethargy and WOB. MD notified by speech. Around 11:00 patient noted to have increased lethargy and became diaphoretic, tachycardic HR in the 130s and Tachypnic RR in the mid 30 with increased WOB. MD notified. PRN 50 mcg Fentanyl IVP given with little to no effect, MD aware. ABGs drawn: 7./.8//. Patient's daughters and primary contact Lorraine updated by MD and this RN. Agreeable to intubation. Around 1200 patient intubated. Tolerated well with Propofol for sedation. ET tube 7.5 and 23 dawit. Placed on AC/VC settings: Rate of 24, tidal Vol 450, peep 10 and FiO2 50%Placed on Propofol drip. Family updated by this RN. This afternoon patient became asynchronous with the vent with frequent coughing and gaging on Propofol at max rate. MD notified. Fentanyl drip ordered and administered with good effect evb decreased gagging and vent synch. Vent settings titrated by MD. AC/VC rate 24 tidal vol 450, peep 5, 30% Fio2. O2 sats trending in the mid 90s. Jones removed per infection control. DTV 1800. Female external catheter placed. No urine output as of 1600. Bladder scan for 51 ml. MD aware, continue to monitor.
[2021-01-05 23:39] LABS: Glucose, Whole Blood 103 mg/dL (60-115)
[2021-01-05] MEDS: propofoL 1,000 MG/100 ML VIAL 26.45 MG IVCONT (23:57)
[2021-01-06] VITALS (51 sets, daily range): BP systolic 80–157; BP diastolic 35–74; PULSE 68–133; RESP 17–24; TEMP 36.4–37.5; O2SAT 94–99
[2021-01-06] MEDS: propofoL 1,000 MG/100 ML VIAL 19.84 MG IVCONT (04:15)
[2021-01-06] MEDS: fentaNYL citrate/NS 1,000 MCG/100 ML PLAST..BAG 5 MCG IVCONT (05:29)
[2021-01-06 05:30] LABS: VBG Base Excess 12.6 mmol/L; VBG HCO3 36 mmol/L (22-26); VBG pCO2 41 mmHg; VBG pH 7.54 (7.32-7.43); VBG pO2 44 mmHg
[2021-01-06 05:39] LABS: Basophils Percent Auto 0.2 % (0-2); Eosinophils Absolute Auto 0.1 X10*3/uL (0.0-0.4); Eosinophils Percent Auto 0.8 % (0-4); Hematocrit 28.1 % (37-47); Hemoglobin 8.7 g/dl (12.0-16.0); Imm Gran Abs Auto 0.14 X10*3/uL (0.00-0.03); Imm Gran Pct Auto 0.9 % (0.0-0.4); Lymphocytes Absolute Auto 0.7 X10*3/uL (1.2-4.9); Lymphocytes Percent Auto 4.2 % (20-40); MANUAL DIFF FLAG SCAN; Mean Corpuscular Hemoglobin 31.1 pg (27.0-33.0); Mean Corpuscular Volume 100.4 fL (80-98); Mean Platelet Volume 10.1 fL (9.4-12.3); Monocytes Absolute Auto 0.7 X10*3/uL (0.1-1.2); Monocytes Percent Auto 4.6 % (2-11); Neutrophils Absolute Auto 14.1 X10*3/uL (2.0-8.3); Neutrophils Percent Auto 89.3 % (45-73); Platelet Count 218 X10*3/uL (160-400); Red Cell Distribution Width 16.3 % (11.0-16.0); SCAN SMEAR FLAG 1; White Blood Count 15.8 X10*3/uL (4.8-10.8)
[2021-01-06 06:00] LABS: SLIDE REVIEW VERIFIED
[2021-01-06 06:14] LABS: Alanine Aminotransferase 38 U/L (0-31); Albumin Level 3.4 g/dL (3.5-5.0); Alkaline Phosphatase 55 U/L (39-117); Anion Gap 14 (12-20); Aspartate Amino Transferase 28 U/L (5-31); Blood Urea Nitrogen 29 mg/dL (9-16); Calcium 8.3 mg/dL (8.4-10.2); Carbon Dioxide 33 mmol/L (22-29); Chloride 104 mmol/L (96-108); Creatinine Clr Calc Pharmacy 92.7; Estimated Glomerular Filt Rate > 60; Glucose Random 101 mg/dL (60-115); Magnesium 1.7 mg/dL (1.6-2.6); Potassium 2.5 mmol/L (3.3-5.1); Sodium 148 mmol/L (135-145); Total Protein 4.8 g/dL (6.5-8.0)
[2021-01-06] MEDS: Potassium Chloride Packet 20 MEQ PACKET 60 MEQ OG-TUBE (06:24)
[2021-01-06 07:00] LABS: Venous Blood Gas Refer to POC result
[2021-01-06] MEDS: Metoprolol Tartrate 5 MG/5 ML VIAL IVPUSH ×2 (08:10→13:51)
[2021-01-06] MEDS: propofoL 1,000 MG/100 ML VIAL 26.45 MG IVCONT (08:18)
[2021-01-06] MEDS: Potassium Phosphate 30 MMOL in 0.9 % Sodium Chloride 500 ML 85 MMOL IV (08:19)
[2021-01-06] MEDS: Magnesium Sulfate/H2O 2 GM/50 ML PIGGYBACK IV (08:20)
[2021-01-06] MEDS: acetaZOLAMIDE sodium 500 MG VIAL 250 MG IVPUSH ×2 (08:20→21:06)
[2021-01-06] MEDS: Potassium Chloride/H20 40 MEQ/100 ML PIGGYBACK 100 MEQ IV ×2 (08:20→20:14)
[2021-01-06] MEDS: Chlorhexidine Gluc Oral Rinse 15 ML MOUTHWASH BUCCAL ×3 (08:21→21:11)
[2021-01-06] MEDS: 0.9 % Sodium Chloride Flush 3 ML SYRINGE IVFLUSH ×3 (08:21→23:47)
[2021-01-06] MEDS: Digoxin 0.5 MG/2 ML AMPUL 0.125 MG IVPUSH (08:40)
--- NOTE | 2021-01-06 09:40 | MHC.SLORD ---
Speech Language Pathology Order Status: Per chart review, pt emergently reintubated yesterday due to increased respiratory distress. Skilled speech therapy is not appropriate at this time. Please re-refer 24-48 hous post extubation.
--- NOTE | 2021-01-06 10:23 | MHC.CLN ---
F/U PT REINTUBATED AND SEDATED PT TO RE-START TF, RECOMMEND GLUCERNA AT MAX GOAL RATE 50CC/HR WITH 120CC FREE WATER FLUSHES Q 6HRS TO PROVIDE 1200KCALS (1898KCALS WITH SEDATION; 32KCALS/KG BASED ON IBW), 50G PROTEIN (.8G/KG), 1504CC TOTAL WATER (25CC/KG) START AT 20CC/HR AND INCREASE BY 10CC Q 4 HRS UNTIL MAX GOAL OF 50CC/HR IS ACHIEVED MONITOR TOLERANCE, RESIDUALS AND LYTES
--- NOTE | 2021-01-06 11:04 | PM.PNTS ---
Subjective Subjective Date of Service: 01/06/21 Patient reports: other Interval history: Patient seen and examined this morning. She remains intubated however, able to follow commands and track with eyes. Vent settings are as follows: AC 20/450/70/30 percent FiO2 with a PEEP of 5. Right pigtail chest tube remains to -20 cm continuous low wall suction. When asked if patient is having any pain, patient was able to nod her head yes but unable to tell me where. Otherwise, review of systems difficult to obtain at this time due to intubation. Physical Exam Vital Signs: Vital Signs: Last Vital Signs Temp 97.6 F 01/06/21 10:00 Pulse 103 H 01/06/21 11:00 Resp 20 01/06/21 11:00 BP 142/56 H 01/06/21 11:01 Pulse Ox 96 01/06/21 11:00 Oxygen Flow Rate 2 12/26/20 15:00 Body Mass Index 39.2 Const: General: cooperative, comfortable and no acute distress Nutritional Appearance: well nourished Orientation/consciousness: Other orientation findings (Patient remains intubated. Knows her name and follows commands) Limitations: no limitations HENMT: Head: Yes normal to inspection, Yes normocephalic and Yes atraumatic Mouth: Normal oral and palatal mucosa present Eyes: Visual Carrizales: normal visual carrizales by confrontation Alignment and Position: alignment normal Periorbital: periorbital findings normal Conjunctivae: conjunctivae normal Sclerae: sclerae normal Pupils: Equal, round and reactive pupils present and Pupil accommodation reflex normal EOM: EOMs intact bilaterally Neck: Neck: Yes normal visual inspection, Yes full ROM, Yes no lymphadenopathy, Yes trachea midline, Yes supple, No lymphadenopathy, No tender and No tracheal deviation Lymphatic: no lymphadenopathy noted Chest: Chest palpation & inspection: normal inspection of the chest and no crepitus Resp: Other: Lungs sounds clear to auscultation. Remains intubated with ET tube in place. On assist control setting. Right lateral pigtail chest tube to -20cm continuous LWS. 1060cc of serousanguinous drainage in atrium. Chest tube has put out an additional 410cc overnight. No air leak on exam. Chest tube dressing is C/D/I. Bruising noted to right lateral chest. Effort & Inspection: normal respiratory effort, normal respiratory pattern, no audible wheezes, no cough, no pursed lip breathing, no respiratory distress, no stridor, not tachypneic and no tracheal deviation Auscultation: clear to auscultation bilaterally Cardio: Jugular venous distension: no JVD Palpation: normal PMI Rate: regular rate Rhythm: abnormal rhythm (Afib with HR 100's-110's) Heart sounds: S1 normal heart sound present, S2 normal heart sound present, no click, no gallops, no murmurs and no rubs GI: Inspection: Yes normal to inspection Auscultation: normal bowel sounds : General: Yes no CVA tenderness Back/Spine/Pelvis: Back: no CVA tenderness Skin: General skin exam: no rashes or lesions noted and dry skin Neuro: Cranial nerves: Yes Equal, round and reactive pupils present Extrem: General: Yes normal to inspection, Yes full ROM, Yes capillary refill normal, Yes no clubbing, cyanosis or edema and Yes edema (3+ pitting edema to LUE. 2+ pitting edema to RUE and RLE. 1+ pitting to LLE) Psych: Appearance: grossly normal and well kempt Mental Status: mental status grossly normal Attitude: cooperative Progress Note: A&P Assessment and plan (1) Hemothorax on right: Status: Acute Assessment and Plan: Patient is a 75 y.o. female with a PMG of T2DM, morbid obesity, CHF, COPD, AFIB on Eliquis who had a PEA arrest on 12/27 requiring 10 mins of CPR and subsequently developed a right hemothorax and multiple left-sided rib fractures (3-7) following trauma to chest from CPR. She was extubated on 01/04/21 but re-intubated on 01/05/21 due to hypoxemia secondary to pulmonary aspiration. Right hemothorax s/p pigtail placement on 12/30 CXR this am revealed no significant change since 01/05/2021. Persistent retrocardiac opacity and small left pleural effusion. No significant right pleural effusion with pigtail catheter present. Central vascular prominence and perihilar patchy opacities may be secondary to edema. Chest tube remains to -20cm continuous LWS. May place chest tube to [facility] at this time. Per Dr. Alejo, will keep chest tube in place until output is < 200cc in 24 hours Chest tube has put out 410cc in the past 24 hours (01/05/21 0700-01/06/21 0700). At time of my assessment, patient had 1050cc total of serousanguinous drainage in atrium. No visible air leak. Eliquis and anti-coagulation continues to remain on hold for hx of Afib. Coags WNL, INR 1.4 Nursing to continue to record chest tube output q2-4 hours in I/O's and nolan on chest tube atrium. At this point, high chest tube output likely related to fluid overload secondary to 3rd spacing or diastolic heart failure. Now s/p diuresis. Chest tube drainage is most certainly less hemorrhagic in nature, now serousanguinous. No air leak on exam Chest CT showed continued minimally displaced acute fractures of the left anterolateral third through seventh ribs. Increased nonspecific groundglass opacities within the lungs bilaterally. Respiratory motion limits sensitivity. Significantly decreased right pleural effusion and decreased right lung atelectasis. VAP precautions: while patient on ventilator DVT prophylaxis: intermittent pneumatic compression stockings. Re tracheostomy placement: patient has now been intubated x 3 during her hospital stay (12/27 and extubated 12/29, re-intubated 12/30 and extubated 01/04, re-intubated 01/05). Will need tracheostomy placed per Base Draw Operator. If family ok to proceed, will determine when we can do this. Likely sometime next week. Case discussed with Dr. Alejo. Thank you for this consult. Will continue to follow for chest tube management. Fall Risk Details Current Medications: Current Medications Generic Name Dose Route Start Last Admin Trade Name Freq PRN Reason Stop Dose Admin Acetazolamide 250 mg 01/04/21 09:00 01/06/21 08:20 Acetazolamide Sodium 500 Mg Vial IVPUSH 01/06/21 21:01 250 mg BID DEE Administration Chlorhexidine Gluconate 15 ml 01/05/21 15:00 01/06/21 08:21 Chlorhexidine Gluc Oral Rinse 15 Ml Mouthwash BUCCAL 15 ml TID DEE Administration Digoxin 0.125 mg 01/06/21 09:00 01/06/21 08:40 Digoxin 0.5 Mg/2 Ml Ampul IVPUSH 0.125 mg DAILY DEE Administration Fentanyl 50 mcg 01/05/21 10:55 01/05/21 14:20 Fentanyl Citrate/Pf 100 Mcg/2 Ml Vial IVPUSH 50 mcg Q2H PRN Administration Pain, Moderate (Pain Scale 4-6 Propofol 1,000 mg in 100 mls @ 0 mls/hr 01/05/21 12:30 01/06/21 10:32 Diprivan IVCONT 35 mcg/kg/min .Q0M DEE 23.15 mls/hr Titration Protocol Per Protocol Fentanyl 1,000 mcg in 100 mls @ 0 mls/hr 01/05/21 17:15 01/06/21 09:13 Sublimaze/Ns IVCONT 75 mcg/hr .Q0M DEE 7.5 mls/hr Titration Protocol Per Protocol Norepinephrine Bitartrate 8 mg in 250 mls @ 0 mls/hr 01/05/21 20:15 01/06/21 11:01 Levophed IVCONT 0.03 mcg/kg/min .Q0M DEE 6.2 mls/hr Titration Protocol Per Protocol Potassium Phosphate 30 mmol/ 510 mls @ 85 mls/hr 01/06/21 06:15 01/06/21 08:19 Sodium Chloride IV 01/06/21 12:14 85 mls/hr ONCE ONE Administration Insulin Human Lispro 0 unit 12/28/20 12:00 01/06/21 05:29 Insulin Lispro 100 Unit/Ml 3 Ml Vial SUBCUT Not Given Q6H [facility] Protocol Metoprolol Tartrate 5 mg 01/03/21 14:08 01/06/21 08:10 Metoprolol Tartrate 5 Mg/5 Ml Vial IVPUSH 5 mg Q6H PRN Administration Heart Rate >100 Metoprolol Tartrate 50 mg 01/05/21 09:00 01/06/21 09:55 Metoprolol Tartrate 50 Mg Tablet PO Not Given BID [facility] Protocol Naloxone HCl 0.2 mg 01/05/21 17:02 Naloxone Hcl 0.4 Mg/Ml Vial IVPUSH Q2M PRN Excessive sedation or RR < 8 Omeprazole 40 mg 01/06/21 06:30 01/06/21 05:28 Omeprazole 20 Mg/10 Ml Susp.Recon PO 40 mg DAILY@0630 [facility] Administration Sodium Chloride 3 ml 12/14/20 00:00 01/06/21 08:21 0.9 % Sodium Chloride Flush 3 Ml Syringe IVFLUSH 3 ml QSHIFT [facility] Administration Time Spent With Patient Time: Total time spent is greater than 50% in coordination of care (as documented) at patient's floor/unit and/or counseling patient: Time with patient: less than 15 minutes Procedures Date of Service Date of Service: 01/06/21
--- NOTE | 2021-01-06 11:29 | PC.NURSE ---
No urinary output noted via female external catheter or episodes of urinary incontinence. Bladder scan for 453 ml. Notified MD. Obtained order for Jones catheter insertion for urinary retention. Jones inserted with good effect, urine output of 1,000 mls upon insertion. Urine noted to have a slight green/white discoloration. Patient tolerated well. Will continue to monitor urinary output.
[2021-01-06 11:50] LABS: Glucose, Whole Blood 100 mg/dL (60-115)
[2021-01-06] MEDS: propofoL 1,000 MG/100 ML VIAL 23.15 MG IVCONT ×4 (12:07→22:57)
--- NOTE | 2021-01-06 13:04 | P.PNCC_ITS ---
Subjective Subjective Date of Service: 01/06/21 Interval History: 75-year-old lady with underlying diabetes mellitus, morbid obesity, ANITA noncompliant with CPAP, hypertension, AFib on Eliquis, CAD, anxiety, with recent admission for AFib requiring cardioversion, admitted on December 13 with dyspnea, nausea, and vomiting, treated for hyponatremia and congestive heart failure, also noted to have esophageal stricture, status post EGD on 12/24 with balloon dilatation, further hospital course complicated by acute on chronic hypoxic and hypercapnic respiratory failure, with what appears to have been a bradycardic episode with possible cardiac arrest on 12/27, status post 10 minutes of CPR, intubated during procedure, attempting to talk after return of spontaneous circulation, thus did not undergo hypothermia. Extubated on 12/29, requiring right-sided chest tube on 12/30 for right hemothorax, very intubated on 12/30 for worsening respiratory status, extubated 01/04/2021. Required re-i ntubation on 01/05/2021 secondary to recurrent aspirations. Now being planned for tracheostomy. No events overnight. Critical Care Time (minutes): 60 Physical Exam Vital Signs: Vital Signs: Last Vital Signs Temp 98.4 F 01/06/21 13:00 Pulse 74 01/06/21 13:00 Resp 20 01/06/21 13:00 BP 141/62 H 01/06/21 13:00 Pulse Ox 95 01/06/21 13:00 Oxygen Flow Rate 2 12/26/20 15:00 Body Mass Index 39.2 Const: General: no acute distress and other (Sedated on the vent) Eyes: Sclerae: sclerae normal EOM: EOMs intact bilaterally Neck: Neck: Yes no lymphadenopathy, Yes trachea midline and Yes supple Resp: Effort & Inspection: normal respiratory effort and no respiratory distress Auscultation: clear to auscultation bilaterally Cardio: Rate: regular rate Rhythm: abnormal rhythm irregularly irregular Heart sounds: no gallops, no murmurs and no rubs GI: Palpation (GI): Soft to palpation and Other GI palpation findings present ( Nontender) Auscultation: normal bowel sounds Extrem: General: No clubbing, No cyanosis and Yes pedal edema (Trace bilateral) Objective Data Labs CBC & Chem 7: 01/06/21 05:23 01/06/21 05:23 Labs: Laboratory Results - last 24 hr 01/05/21 01/05/21 01/06/21 17:57 23:35 05:23 WBC 15.8 H RBC 2.80 L Hgb 8.7 L Hct 28.1 L MCV 100.4 H D MCH 31.1 MCHC 31.0 RDW 16.3 H Plt Count 218 MPV 10.1 Immature Gran % (Auto) 0.9 H Neut % (Auto) 89.3 H Lymph % (Auto) 4.2 L Moffat % (Auto) 4.6 Eos % (Auto) 0.8 Baso % (Auto) 0.2 Lymph # (Auto) 0.7 L Moffat # (Auto) 0.7 Eos # (Auto) 0.1 Baso # (Auto) 0.0 Abs Immat Gran (auto) 0.14 H Absolute Neuts (auto) 14.1 H Absolute Nucleated RBC 0.000 Nucleated RBC % (auto) 0.0 Smear Tech's Comments VERIFIED VBG pH VBG pCO2 VBG pO2 VBG HCO3 VBG O2 Saturation VBG Base Excess Sodium Potassium Chloride Carbon Dioxide Anion Gap BUN Creatinine Estim Creat Clear Calc Estimated GFR POC Glucose 115 103 Random Glucose Calcium Phosphorus Magnesium Total Bilirubin AST ALT Alkaline Phosphatase Total Protein Albumin 01/06/21 01/06/21 01/06/21 05:23 05:23 11:46 WBC RBC Hgb Hct MCV MCH MCHC RDW Plt Count MPV Immature Gran % (Auto) Neut % (Auto) Lymph % (Auto) Moffat % (Auto) Eos % (Auto) Baso % (Auto) Lymph # (Auto) Moffat # (Auto) Eos # (Auto) Baso # (Auto) Abs Immat Gran (auto) Absolute Neuts (auto) Absolute Nucleated RBC Nucleated RBC % (auto) Smear Tech's Comments VBG pH 7.54 H VBG pCO2 41 VBG pO2 44 VBG HCO3 36 H VBG O2 Saturation 79.0 VBG Base Excess 12.6 Sodium 148 H Potassium 2.5 L* D Chloride 104 Carbon Dioxide 33 H Anion Gap 14 BUN 29 H Creatinine 0.68 Estim Creat Clear Calc 92.7 Estimated GFR > 60 POC Glucose 100 Random Glucose 101 Calcium 8.3 L Phosphorus 2.0 L Magnesium 1.7 Total Bilirubin 1.0 AST 28 ALT 38 H Alkaline Phosphatase 55 Total Protein 4.8 L Albumin 3.4 L D Microbiology Microbiology Results: Microbiology 05/26/21 06:29 Blood - Venous Blood Culture - Final No growth after 5 days. 12/30/20 06:20 Blood - Venous Blood Culture - Final No growth after 5 days. 12/31/20 15:59 Sputum - Suctioned Gram Stain - Final 12/31/20 15:59 Sputum - Suctioned Sputum Culture - Final 12/30/20 06:37 Kidney - Jones Catheter Urine Culture - Final No growth. 12/27/20 17:56 Sputum - Suctioned Gram Stain - Final 12/27/20 17:56 Sputum - Suctioned Sputum Culture - Final 12/27/20 17:53 Urine clean catch - Clean Catch Midstream Urine Culture - Final No growth. Progress Note: A&P Assessment and plan (1) Urinary retention: Status: Acute Assessment and Plan: Assessment: 75-year-old lady with underlying obesity, ANITA, CAD congestive heart failure, AFib, initially admitted with exacerbation of congestive heart failure with hospital course complicated by esophageal stricture status post balloon dilatation, cardiac arrest with return of spontaneous circulation after 10 minutes of CPR, right hemothorax status post chest tube placement, acute on chronic hypoxic and hypercapnic respiratory failure Plan: Neuro: No acute issues. Cardiac: Cardiac arrest status post returned spontaneous circulation after 10 minutes of CPR. Underlying diastolic congestive heart failure. Improving with diuresis. Underlying AFib, now on rate and rhythm control. Pulmonary: Acute hypoxic and hypercapnic respiratory failure initially intubated during the CPR, also underlying ANITA with obesity hypoventilation, further complicated by right-sided hemothorax. Thoracic surgery service care appreciated. Chest tube continues with significant drainage. Extubated 01/04/2021. Required re-intubation on 01/05/2021 secondary to recurrent aspiration. Being planned for tracheostomy. Renal: Acute kidney injury, resolved. Urinary retention requiring reinsertion of Jones catheter. Endo: No acute issues. Underlying diabetes mellitus. GI: No acute issues. ID: No acute issues Heme/Onc: No acute issues. Psych: No acute issues. Miscellaneous: No acute issues. Prophylaxis: Intermittent pneumatic compression, no pharmacologic prophylaxis secondary to hemothorax, ppi Diet: Tube feeds Critical care time spent: 60 minutes (2) Pulmonary aspiration: Status: Acute (3) HTN (hypertension): Status: Acute (4) CAD (coronary artery disease): Status: Acute (5) Acute and chronic respiratory failure: Status: Acute (6) Hemothorax on right: Status: Acute (7) Acute hypercapnic respiratory failure due to obstructive sleep apnea: Status: Acute (8) PAF (paroxysmal atrial fibrillation): Status: Acute (9) Cardiac arrest: Status: Acute (10) Dysphagia: Status: Acute (11) Heart failure with preserved ejection fraction: Status: Acute
--- NOTE | 2021-01-06 14:06 | MHC.CM.PN ---
Spoke with pt's dtr Lorraine to discuss goals of care : states pt needing a trach/peg d/t ongoing aspiration issues. Lorraine states she discussed this with her mother who nodded yes to wanting to proceed. Discussed d/c plans for pt with a new trach: Lorraine understands pt will need LTAC level of care until her trach is matured at which she could transfer to a SNF locally. [facility]. No date as of yet for surgical intervention. CM to follow and update Lorraine as indicated.
[2021-01-06 18:10] LABS: Glucose, Whole Blood 111 mg/dL (60-115)
[2021-01-06] MEDS: fentaNYL citrate/NS 1,000 MCG/100 ML PLAST..BAG 7.5 MCG IVCONT (18:19)
[2021-01-06 19:03] LABS: Anion Gap 10 (12-20); Blood Urea Nitrogen 28 mg/dL (9-16); Calcium 8.1 mg/dL (8.4-10.2); Carbon Dioxide 32 mmol/L (22-29); Chloride 108 mmol/L (96-108); Estimated Glomerular Filt Rate > 60; Glucose Random 107 mg/dL (60-115); Potassium 3.2 mmol/L (3.3-5.1); Sodium 147 mmol/L (135-145)
[2021-01-06 20:18] LABS: OBS Int Ctl Valid YES; OBS1 POSITIVE (NEGATIVE)
[2021-01-06] MEDS: Metoprolol Tartrate 50 MG TABLET PO (21:10)
[2021-01-07] VITALS (37 sets, daily range): BP systolic 105–153; BP diastolic 39–72; PULSE 36–138; RESP 20; TEMP 37.1–38; O2SAT 94–98
[2021-01-07 00:01] LABS: Glucose, Whole Blood 107 mg/dL (60-115)
--- NOTE | 2021-01-07 03:23 | PC.NURSE ---
pt is lightly sedated and easily emerges from sedation when spoken to. she will nod head to question and follow simple command. she francis purposefully. although there is some rigidity noted involving lowerl egs most likely r/t her knees. she has a pale complexion and generalized edema is well noted. transorally intubated and maintained on mechanical ventilation with a rate control mode of 20 vt 450 fio2 30% peep 5cm. breath sounds are coarse diminished within lower lobes. ecg displays afib with a ventricular response 60-70 bpm. to be noted activity will increase pts heart rate increase to 130-140 bpm. midlevel provider deya armas table games floor supervisor wanted pts metoprolol to be given despite being on levophed. metoprolol 50 mg given via ogt. right thoracostomy tube has drained 60 and 50 ml of pink serous drainage over the past 8 hours. there is no air leak. there is no bubbling.. thoracostomy tube insertion site dsg dry/intact. abdomen obese/semisoft + bowel sounds. tube feedings have been advanced to goal 50 ml/hr. pt has passed large hard white colored stools approximately every 2 hours. of interest is the fact that the outer surface of the stool is coated in rivera blood. a stool specimen for occult blood was sent is + for occult blood.
[2021-01-07 05:31] LABS: VBG Base Excess 7.3 mmol/L; VBG HCO3 31 mmol/L (22-26); VBG pCO2 44 mmHg; VBG pH 7.46 (7.32-7.43); VBG pO2 50 mmHg
[2021-01-07 05:35] LABS: Venous Blood Gas Refer to POC result
[2021-01-07] MEDS: propofoL 1,000 MG/100 ML VIAL 23.15 MG IVCONT (05:38)
[2021-01-07] MEDS: fentaNYL citrate/NS 1,000 MCG/100 ML PLAST..BAG 7.5 MCG IVCONT (05:39)
[2021-01-07 05:57] LABS: Basophils Percent Auto 0.1 % (0-2); Eosinophils Absolute Auto 0.4 X10*3/uL (0.0-0.4); Eosinophils Percent Auto 3.6 % (0-4); Hematocrit 28.3 % (37-47); Hemoglobin 8.6 g/dl (12.0-16.0); Imm Gran Abs Auto 0.11 X10*3/uL (0.00-0.03); Lymphocytes Absolute Auto 0.6 X10*3/uL (1.2-4.9); Lymphocytes Percent Auto 4.9 % (20-40); MANUAL DIFF FLAG SCAN; Mean Corpuscular HGB Conc 30.4 g/dl (31.0-35.0); Mean Corpuscular Hemoglobin 31.2 pg (27.0-33.0); Mean Corpuscular Volume 102.5 fL (80-98); Mean Platelet Volume 10.7 fL (9.4-12.3); Monocytes Absolute Auto 0.5 X10*3/uL (0.1-1.2); Monocytes Percent Auto 4.7 % (2-11); NRBC Pct Auto 0.2 /100WBC (0.0-0.2); Neutrophils Absolute Auto 9.8 X10*3/uL (2.0-8.3); Neutrophils Percent Auto 85.7 % (45-73); Platelet Count 221 X10*3/uL (160-400); Red Blood Count 2.76 X10*6/uL (4.20-5.50); Red Cell Distribution Width 16.8 % (11.0-16.0); SCAN SMEAR FLAG 1; White Blood Count 11.4 X10*3/uL (4.8-10.8)
[2021-01-07 06:19] LABS: Albumin Level 3.2 g/dL (3.5-5.0); Anion Gap 10 (12-20); Blood Urea Nitrogen 23 mg/dL (9-16); Carbon Dioxide 31 mmol/L (22-29); Chloride 110 mmol/L (96-108); Creatinine Clr Calc Pharmacy 103.3; Estimated Glomerular Filt Rate > 60; Glucose Random 125 mg/dL (60-115); Magnesium 1.8 mg/dL (1.6-2.6); Phosphorus 3.1 mg/dL (2.7-4.5); Potassium 3.4 mmol/L (3.3-5.1); Sodium 148 mmol/L (135-145)
[2021-01-07 06:31] LABS: SLIDE REVIEW VERIFIED
--- NOTE | 2021-01-07 06:43 | PC.NURSE ---
over 12 hour shift right chest tube drained total of 110 of pink serous drainage.
[2021-01-07] MEDS: Chlorhexidine Gluc Oral Rinse 15 ML MOUTHWASH BUCCAL ×3 (07:59→21:50)
[2021-01-07] MEDS: Metoprolol Tartrate 50 MG TABLET PO (07:59)
[2021-01-07] MEDS: 0.9 % Sodium Chloride Flush 3 ML SYRINGE IVFLUSH ×2 (08:10→16:17)
--- NOTE | 2021-01-07 08:29 | P.PNTS_ITS ---
Subjective Subjective Date of Service: 01/07/21 Interval history: Patient remains intubated. She is able to track with eyes and follow commands. When asked how she is doing she is able to shrug her shoulders as a response. She is unable to tell me if she is having any pain and appears t o be breathing comfortably on the ventilator. Her chest tube remains to -20 cm continuous low wall suction overnight. Per nursing, patient had 5 loose bowel movements yesterday. 1 of which was positive for occult stool and patient also noted to have some barium in her stools. Physical Exam Vital Signs: Vital Signs: Last Vital Signs Temp 99.0 F 01/07/21 07:58 Pulse 113 H 01/07/21 07:59 Resp 20 01/07/21 07:58 BP 127/57 L 01/07/21 07:59 Pulse Ox 96 01/07/21 07:58 Oxygen Flow Rate 2 12/26/20 15:00 Body Mass Index 39.2 EXAMINATION: XR CHEST CLINICAL INFORMATION: Right hemothorax status post chest tube placement COMPARISON: 01/06/2021 TECHNIQUE: Frontal view of the chest was obtained. FINDINGS: Endotracheal tube tip lies approximately 4.6 cm above the yunier. Enteric tube courses below the diaphragm. Left subclavian central line tip lies in the region of the upper SVC. Right pigtail catheter overlies the mid right hemithorax. Lung volumes are symmetric. Persistent small left pleural effusion with adjacent basilar opacity and haziness, similar to prior. No significant right pleural effusion. Central vascular congestion appears mildly decreased from prior. No appreciable pneumothorax. The cardiomediastinal silhouette is stable. No acute osseous findings are seen. XR/XR chest 1V IMPRESSION: Persistent small left pleural effusion and adjacent parenchymal opacity. Decreased central vascular congestion. No significant right pleural effusion. Const: General: cooperative, healthy appearing, comfortable and no acute distress Nutritional Appearance: well nourished Orientation/consciousness: oriented to person HENMT: Head: Yes normal to inspection, Yes normocephalic and Yes atraumatic Eyes: Visual Carrizales: normal visual carrizales by confrontation Alignment and Position: alignment normal Periorbital: periorbital findings normal Conjunctivae: conjunctivae normal Sclerae: sclerae normal Pupils: Equal, round and reactive pupils present and Pupil accommodation reflex normal EOM: EOMs intact bilaterally Neck: Neck: Yes normal visual inspection, Yes full ROM, Yes no lymphadenopathy, Yes trachea midline, Yes supple, No lymphadenopathy, No tender and No tracheal deviation Lymphatic: no lymphadenopathy noted Chest: Chest palpation & inspection: normal inspection of the chest and no crepitus Resp: Other: Patient is breathing comfortably on ventilator. Right lateral chest tube remains to -20 cm continuous low wall suction and put out an additional 400 cc of serosanguineous drainage in the past 24 hours. She has 1450 cc total in her atrium at this time. There is no visible air leak on exam. Her chest tube dressing is clean, dry, and intact. She has no subcutaneous emphysema around chest tube site or to chest. There is a bruise noted to her right lateral chest. Her chest expansion is symmetrical and no accessory muscle usage noted. Vent settings remain at assist control with a PEEP of 5 FiO2 of 30% and tidal volume of 450 Effort & Inspection: normal respiratory effort, able to speak in complete sentences, normal respiratory pattern, no audible wheezes, no cough, no pursed lip breathing, no respiratory distress, no stridor, not tachypneic and no tracheal deviation Auscultation: clear to auscultation bilaterally Cardio: Jugular venous distension: no JVD Palpation: normal PMI Rate: regular rate Rhythm: regular rhythm Heart sounds: S1 normal heart sound present, S2 normal heart sound present, no click, no gallops, no murmurs and no rubs GI: Inspection: Yes normal to inspection Auscultation: normal bowel sounds : General: Yes no CVA tenderness Back/Spine/Pelvis: Back: no CVA tenderness Thoracic/Lumbar Spine: thoracic and lumbar spine normal to inspection Skin: General skin exam: no rashes or lesions noted and dry skin Lesions: no lesions Rashes: no rashes Neuro: General: oriented to person Cranial nerves: Yes Equal, round and reactive pupils present Extrem: General: Yes normal to inspection, Yes full ROM, Yes capillary refill normal, Yes no clubbing, cyanosis or edema, Yes normal gait and Yes edema ( 3+ pitting edema to LUE, 2+ pitting edema to RUE, 1+ pitting to RLE) Psych: Appearance: grossly normal and well kempt Affect: normal affect Attitude: cooperative Progress Note: A&P Assessment and plan (1) Hemothorax on right: Status: Acute Assessment and Plan: Patient is a 75 y.o. female with a PMG of T2DM, morbid obesity, CHF, COPD, AFIB on Eliquis who had a PEA arrest on 12/27 requiring 10 mins of CPR and subsequently developed a right hemothorax and multiple left-sided rib fractures (3-7) following trauma to chest from CPR. She was extubated on 01/04/21 but re- intubated on 01/05/21 due to hypoxemia secondary to pulmonary aspiration. Right hemothorax s/p pigtail placement on 12/30 * CXR this am revealed Persistent small left pleural effusion and adjacent parenchymal opacity. Decreased central vascular congestion. No significant right pleural effusion. * Chest tube remains to -20cm continuous LWS. May place chest tube to waterseal at this time. * Per Dr. Alejo, will keep chest tube in place until output is < 200cc in 24 hours * Chest tube has put out 400cc in the past 24 hours (01/06/21 0700-01/07/21 0700). At time of my assessment, patient had 1450cc total of serousanguinous drainage in atrium. No visible air leak. * Eliquis and anti-coagulation continues to remain on hold for hx of Afib. Coags WNL, INR 1.4 * Nursing to continue to record chest tube output q2-4 hours in I/O's and nolan on chest tube atrium. * At this point, high chest tube output likely related to fluid overload secondary to 3rd spacing or diastolic heart failure. S/p diuresis. Chest tube drainage is most certainly less hemorrhagic in nature, now serousanguinous. * VAP precautions: while patient on ventilator * DVT prophylaxis: intermittent pneumatic compression stockings. * Re tracheostomy placement: patient has now been intubated x 3 during her hospital stay (12/27 and extubated 12/29, re-intubated 12/30 and extubated 01/04, re-intubated 01/05). Per Dr. Hamilton, family is on board. Will plan to perform tracheostomy on 01/14/21. Case discussed with Dr. Alejo. Thank you for this consult. Will continue to follow for chest tube management. Fall Risk Details Current Medications: Current Medications Generic Name Dose Route Start Last Admin Trade Name Freq PRN Reason Stop Dose Admin Chlorhexidine Gluconate 15 ml 01/05/21 15:00 01/07/21 07:59 Chlorhexidine Gluc Oral Rinse 15 Ml Mouthwash BUCCAL 15 ml TID DEE Administration Digoxin 0.125 mg 01/06/21 09:00 01/07/21 07:53 Digoxin 0.5 Mg/2 Ml Ampul IVPUSH Not Given DAILY [facility] Fentanyl 50 mcg 01/05/21 10:55 01/05/21 14:20 Fentanyl Citrate/Pf 100 Mcg/2 Ml Vial IVPUSH 50 mcg Q2H PRN Administration Pain, Moderate (Pain Scale 4-6 Propofol 1,000 mg in 100 mls @ 0 mls/hr 01/05/21 12:30 01/07/21 07:58 Diprivan IVCONT 40 mcg/kg/min .Q0M DEE 26.45 mls/hr Titration Protocol Per Protocol Fentanyl 1,000 mcg in 100 mls @ 0 mls/hr 01/05/21 17:15 01/07/21 05:39 Sublimaze/Ns IVCONT 75 mcg/hr .Q0M DEE 7.5 mls/hr Administration Protocol Per Protocol Norepinephrine Bitartrate 8 mg in 250 mls @ 0 mls/hr 01/05/21 20:15 01/07/21 05:41 Levophed IVCONT 0.08 mcg/kg/min .Q0M DEE 16.53 mls/hr Administration Protocol Per Protocol Magnesium Sulfate 2 gm in 50 mls @ 25 mls/hr 01/07/21 08:30 IV 01/07/21 10:29 ONCE ONE Potassium Chloride 40 meq in 100 mls @ 100 mls/hr 01/07/21 09:00 IV 01/07/21 09:59 ONCE ONE Insulin Human Lispro 0 unit 12/28/20 12:00 01/07/21 07:26 Insulin Lispro 100 Unit/Ml 3 Ml Vial SUBCUT Not Given Q6H [facility] Protocol Metoprolol Tartrate 5 mg 01/03/21 14:08 01/06/21 13:51 Metoprolol Tartrate 5 Mg/5 Ml Vial IVPUSH 5 mg Q6H PRN Administration Heart Rate >100 Metoprolol Tartrate 50 mg 01/05/21 09:00 01/07/21 07:59 Metoprolol Tartrate 50 Mg Tablet PO 50 mg BID [facility] Administration Protocol Naloxone HCl 0.2 mg 01/05/21 17:02 Naloxone Hcl 0.4 Mg/Ml Vial IVPUSH Q2M PRN Excessive sedation or RR < 8 Omeprazole 40 mg 01/06/21 06:30 01/07/21 06:45 Omeprazole 20 Mg/10 Ml Susp.Recon PO 40 mg DAILY@0630 DEE Administration Sodium Chloride 3 ml 12/14/20 00:00 01/07/21 08:10 0.9 % Sodium Chloride Flush 3 Ml Syringe IVFLUSH 3 ml QSHIFT DEE Administration Time Spent With Patient Time: Total time spent is greater than 50% in coordination of care (as documented) at patient's floor/unit and/or counseling patient: Time with patient: less than 15 minutes Procedures Date of Service Date of Service: 01/07/21
[2021-01-07] MEDS: Magnesium Sulfate/H2O 2 GM/50 ML PIGGYBACK IV (08:44)
[2021-01-07] MEDS: Potassium Chloride/H20 40 MEQ/100 ML PIGGYBACK 100 MEQ IV (08:44)
[2021-01-07] MEDS: propofoL 1,000 MG/100 ML VIAL 13.23 MG IVCONT ×3 (10:02→23:26)
[2021-01-07 11:54] LABS: Glucose, Whole Blood 132 mg/dL (60-115)
--- NOTE | 2021-01-07 12:10 | PM.CCPN ---
Subjective Subjective Date of Service: 01/07/21 Critical Care Time (minutes): 60 Comment: 75-year-old lady with underlying diabetes mellitus, morbid obesity, ANITA noncompliant with CPAP, hypertension, AFib on Eliquis, CAD, anxiety, with recent admission for AFib requiring cardioversion, admitted on December 13 with dyspnea, nausea, and vomiting, treated for hyponatremia and congestive heart failure, also noted to have esophageal stricture, status post EGD on 12/24 with balloon dilatation, further hospital course complicated by acute on chronic hypoxic and hypercapnic respiratory failure, with what appears to have been a bradycardic episode with possible cardiac arrest on 12/27, status post 10 minutes of CPR, intubated during procedure, attempting to talk after return of spontaneous circulation, thus did not undergo hypothermia. Extubated on 12/29, requiring right-sided chest tube on 12/30 for right hemothorax, very intubated on 12/30 for worsening respiratory status, extubated 01/04/2021. Required re-intubation on 01/05/2021 secondary to recurrent aspirations. Now being planned for tracheostomy. Overnight with intermittent episodes of bradycardia. Physical Exam Vital Signs: Vital Signs: Last Vital Signs Temp 99.9 F 01/07/21 12:00 Pulse 74 01/07/21 12:00 Resp 20 01/07/21 12:00 BP 109/48 L 01/07/21 12:00 Pulse Ox 98 01/07/21 12:00 Oxygen Flow Rate 2 12/26/20 15:00 Body Mass Index 39.2 Const: General: no acute distress and other (Sedated on the vent, alert and awake with sedation vacation) Eyes: Sclerae: sclerae normal EOM: EOMs intact bilaterally Neck: Neck: Yes no lymphadenopathy, Yes trachea midline and Yes supple Resp: Effort & Inspection: normal respiratory effort and no respiratory distress Auscultation: clear to auscultation bilaterally Cardio: Rate: regular rate Rhythm: abnormal rhythm irregularly irregular Heart sounds: no gallops, no murmurs and no rubs GI: Palpation (GI): Soft to palpation and Other GI palpation findings present ( Nontender) Auscultation: normal bowel sounds Extrem: General: No clubbing, No cyanosis and Yes pedal edema (Trace bilateral) Objective Data Labs CBC & Chem 7: 01/07/21 05:21 01/07/21 05:21 Labs: Laboratory Results - last 24 hr 01/06/21 01/06/21 01/06/21 18:05 18:14 20:02 WBC RBC Hgb Hct MCV MCH MCHC RDW Plt Count MPV Immature Gran % (Auto) Neut % (Auto) Lymph % (Auto) [place] % (Auto) Eos % (Auto) Baso % (Auto) Lymph # (Auto) [place] # (Auto) Eos # (Auto) Baso # (Auto) Abs Immat Gran (auto) Absolute Neuts (auto) Absolute Nucleated RBC Nucleated RBC % (auto) Smear Tech's Comments VBG pH VBG pCO2 VBG pO2 VBG HCO3 VBG O2 Saturation VBG Base Excess Sodium 147 H Potassium 3.2 L D Chloride 108 Carbon Dioxide 32 H Anion Gap 10 L BUN 28 H Creatinine 0.63 Estim Creat Clear Calc 100.0 Estimated GFR > 60 POC Glucose 111 Random Glucose 107 Calcium 8.1 L Phosphorus Magnesium Albumin Stool Occult Blood POSITIVE 01/06/21 01/07/21 01/07/21 23:45 05:21 05:21 WBC 11.4 H RBC 2.76 L Hgb 8.6 L Hct 28.3 L MCV 102.5 H MCH 31.2 MCHC 30.4 L RDW 16.8 H Plt Count 221 MPV 10.7 Immature Gran % (Auto) 1.0 H Neut % (Auto) 85.7 H Lymph % (Auto) 4.9 L [place] % (Auto) 4.7 Eos % (Auto) 3.6 Baso % (Auto) 0.1 Lymph # (Auto) 0.6 L [place] # (Auto) 0.5 Eos # (Auto) 0.4 Baso # (Auto) 0.0 Abs Immat Gran (auto) 0.11 H Absolute Neuts (auto) 9.8 H Absolute Nucleated RBC 0.020 H Nucleated RBC % (auto) 0.2 Smear Tech's Comments VERIFIED VBG pH VBG pCO2 VBG pO2 VBG HCO3 VBG O2 Saturation VBG Base Excess Sodium 148 H Potassium 3.4 Chloride 110 H Carbon Dioxide 31 H Anion Gap 10 L BUN 23 H Creatinine 0.61 Estim Creat Clear Calc 103.3 Estimated GFR > 60 POC Glucose 107 Random Glucose 125 H Calcium 8.0 L Phosphorus 3.1 Magnesium 1.8 Albumin 3.2 L Stool Occult Blood 01/07/21 01/07/21 05:25 11:47 WBC RBC Hgb Hct MCV MCH MCHC RDW Plt Count MPV Immature Gran % (Auto) Neut % (Auto) Lymph % (Auto) [place] % (Auto) Eos % (Auto) Baso % (Auto) Lymph # (Auto) [place] # (Auto) Eos # (Auto) Baso # (Auto) Abs Immat Gran (auto) Absolute Neuts (auto) Absolute Nucleated RBC Nucleated RBC % (auto) Smear Tech's Comments VBG pH 7.46 H VBG pCO2 44 VBG pO2 50 VBG HCO3 31 H VBG O2 Saturation 81.0 VBG Base Excess 7.3 Sodium Potassium Chloride Carbon Dioxide Anion Gap BUN Creatinine Estim Creat Clear Calc Estimated GFR POC Glucose 132 H Random Glucose Calcium Phosphorus Magnesium Albumin Stool Occult Blood Microbiology Microbiology Results: Microbiology 12/30/20 06:29 Blood - Venous Blood Culture - Final No growth after 5 days. 12/30/20 06:20 Blood - Venous Blood Culture - Final No growth after 5 days. 12/31/20 15:59 Sputum - Suctioned Gram Stain - Final 12/31/20 15:59 Sputum - Suctioned Sputum Culture - Final 12/30/20 06:37 Kidney - Jones Catheter Urine Culture - Final No growth. 12/27/20 17:56 Sputum - Suctioned Gram Stain - Final 12/27/20 17:56 Sputum - Suctioned Sputum Culture - Final 12/27/20 17:53 Urine clean catch - Clean Catch Midstream Urine Culture - Final No growth. Progress Note: A&P Assessment and plan (1) Pulmonary aspiration: Status: Acute Assessment and Plan: Assessment: 75-year-old lady with underlying obesity, ANITA, CAD congestive heart failure, AFib, initially admitted with exacerbation of congestive heart failure with hospital course complicated by esophageal stricture status post balloon dilatation, cardiac arrest with return of spontaneous circulation after 10 minutes of CPR, right hemothorax status post chest tube placement, acute on chronic hypoxic and hypercapnic respiratory failure, and recurrent pulmonary aspirations Plan: Neuro: No acute issues. Cardiac: Cardiac arrest status post returned spontaneous circulation after 10 minutes of CPR. Underlying diastolic congestive heart failure. Improved with diuresis. Underlying AFib with tachy-reuben syndrome, now on rate and rhythm control. Pulmonary: Acute hypoxic and hypercapnic respiratory failure initially intubated during the CPR, also underlying ANITA with obesity hypoventilation, further complicated by right-sided hemothorax. Thoracic surgery service care appreciated. Chest tube continues with significant drainage. Extubated 01/04/2021. Required re-intubation on 01/05/2021 secondary to recurrent aspiration. Being planned for tracheostomy. Renal: Acute kidney injury, resolved. Urinary retention requiring reinsertion of Jones catheter. Endo: No acute issues. Underlying diabetes mellitus. GI: No acute issues. ID: No acute issues Heme/Onc: No acute issues. Psych: No acute issues. Miscellaneous: No acute issues. Prophylaxis: Intermittent pneumatic compression, no pharmacologic prophylaxis secondary to hemothorax, ppi Diet: Tube feeds Critical care time spent: 60 minutes (2) CAD (coronary artery disease): Status: Acute (3) Acute and chronic respiratory failure: Status: Acute (4) Hemothorax on right: Status: Acute (5) Sick sinus syndrome: Status: Acute (6) PAF (paroxysmal atrial fibrillation): Status: Acute (7) Cardiac arrest: Status: Acute (8) Heart failure with preserved ejection fraction: Status: Acute
--- NOTE | 2021-01-07 14:47 | P.CONGS_ITS ---
History of Present Illness Consult details Consult date: 01/07/21 Reason for consult: other (Respiratory failure and need for tracheostomy) Requesting physician: David Hamilton Narrative: This is a 75-year-old female with multiple recent admissions for treatment of weakness, shortness of breath and hyponatremia who has required mechanical ventilation over the past 10 days after a developing ventricular fibrillation requiring CPR on 12/27/2020. She was extubated a couple of days later, but required re-intubation twice and placement of a tracheostomy has been requested. She developed a right hemothorax following CPR. A right thoracosto my tube is in place and she is being followed by thoracic surgery. 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 On 2 recent admissions, she has been noted to have significant hyponatremia. She has been evaluated by Dr. Calvillo and workup for SIADH has been recommended but has not been completed. She is intubated. Currently, she is awake and cooperative. Review of Systems Review of Systems: Yes unobtainable due to endotracheal tube PMFSH Past Medical History Medical History Acute hypercapnic respiratory failure due to obstructive sleep apnea Afib Essential hypertension HTN (hypertension) Myocardial infarct 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 If so, by whom?: No Do you feel safe in your current relationship?: No Current Relationship Is there a partner from a previous relationship who is making you feel unsafe now?: No Are you made to feel afraid or neglected: No Are you DNR?: No Advance Directives: No Advance Directives Information Provided: No Do you have thoughts of harming others: None Do you have a plan to hurt others: No Plan Recently lost weight without trying: No Eating poorly because of decreased appetite: No Nutrition Risks: No Nutritional Risk service: No Current occupational status: disabled Meds Allergies Allergy/AdvReac Type Severity Reaction Status Date / Time amiodarone Allergy Severe Difficulty Verified 01/03/21 21:43 Breathing SEASONAL ALLERGIES Allergy Unknown SNEEZING Uncoded 04/23/20 15:17 RUNNY NOSE Active Medications: Current Medications Generic Name Dose Route Start Last Admin Trade Name Freq PRN Reason Stop Dose Admin Chlorhexidine Gluconate 15 ml 01/05/21 15:00 01/07/21 07:59 Chlorhexidine Gluc Oral Rinse 15 Ml Mouthwash BUCCAL 15 ml TID DEE Administration Digoxin 0.125 mg 01/06/21 09:00 01/07/21 07:53 Digoxin 0.5 Mg/2 Ml Ampul IVPUSH Not Given DAILY [facility] Fentanyl 50 mcg 01/05/21 10:55 01/05/21 14:20 Fentanyl Citrate/Pf 100 Mcg/2 Ml Vial IVPUSH 50 mcg Q2H PRN Administration Pain, Moderate (Pain Scale 4-6 Propofol 1,000 mg in 100 mls @ 0 mls/hr 01/05/21 12:30 01/07/21 10:02 Diprivan IVCONT 20 mcg/kg/min .Q0M DEE 13.23 mls/hr Administration Protocol Per Protocol Fentanyl 1,000 mcg in 100 mls @ 0 mls/hr 01/05/21 17:15 01/07/21 09:37 Sublimaze/Ns IVCONT 100 mcg/hr .Q0M DEE 10 mls/hr Titration Protocol Per Protocol Norepinephrine Bitartrate 8 mg in 250 mls @ 0 mls/hr 01/05/21 20:15 01/07/21 11:03 Levophed IVCONT 0.08 mcg/kg/min .Q0M DEE 16.53 mls/hr Titration Protocol Per Protocol Insulin Human Lispro 0 unit 12/28/20 12:00 01/07/21 11:48 Insulin Lispro 100 Unit/Ml 3 Ml Vial SUBCUT Not Given Q6H [facility] Protocol Metoprolol Tartrate 5 mg 01/03/21 14:08 01/06/21 13:51 Metoprolol Tartrate 5 Mg/5 Ml Vial IVPUSH 5 mg Q6H PRN Administration Heart Rate >100 Metoprolol Tartrate 12.5 mg 01/07/21 21:00 Metoprolol Tartrate 12.5 Mg Halftab PO BID [facility] Protocol Naloxone HCl 0.2 mg 01/05/21 17:02 Naloxone Hcl 0.4 Mg/Ml Vial IVPUSH Q2M PRN Excessive sedation or RR < 8 Omeprazole 40 mg 01/06/21 06:30 01/07/21 06:45 Omeprazole 20 Mg/10 Ml Susp.Recon PO 40 mg DAILY@0630 [facility] Administration Sodium Chloride 3 ml 12/14/20 00:00 01/07/21 08:10 0.9 % Sodium Chloride Flush 3 Ml Syringe IVFLUSH 3 ml QSHIFT [facility] Administration Home Medications Medication Instructions Recorded Confirmed Last Taken Type lorazepam 1 tab PO BID PRN 11/18/20 12/13/20 Unknown History omeprazole 1 cap PO BID 11/18/20 12/13/20 Unknown History simvastatin 1 tab PO DAILY 11/18/20 12/13/20 Unknown History Physical Exam Vital Signs: Vital Signs: Last Vital Signs Temp 100.0 F 01/07/21 14:00 Pulse 70 01/07/21 14:00 Resp 20 01/07/21 14:00 BP 119/54 L 01/07/21 14:00 Pulse Ox 97 01/07/21 14:00 Oxygen Flow Rate 2 12/26/20 15:00 Body Mass Index 39.2 Const: Other: Intubated, no apparent distress General: cooperative and alert HENMT: Other: Endotracheal tube in place Head: Yes normocephalic and Yes atraumatic Neck: Other: No palpable masses, well-healed scar base of neck on right Neck: Yes trachea midline Resp: Effort & Inspection: normal respiratory effort Auscultation: clear to auscultation bilaterally (Anterior) Cardio: Rate: regular rate Rhythm: regular rhythm GI: Other: Soft, nontender, no palpable masses normal bowel sounds Skin: Other: Normal color, warm and dry Psych: Other: Intubated, alert, calm, cooperative Results Labs Result diagrams: 01/07/21 05:21 01/07/21 05:21 Labs: Abnormal lab results 01/06/21 01/07/2121 Range/Units 18:14 05:21 05:21 WBC 11.4 H (4.8-10.8) X10*3/uL RBC 2.76 L (4.20-5.50) X10*6/uL Hgb 8.6 L (12.0-16.0) g/dl Hct 28.3 L (37-47) % MCV 102.5 H (80-98) fL MCHC 30.4 L (31.0-35.0) g/dl RDW 16.8 H (11.0-16.0) % Immature Gran % (Auto) 1.0 H (0.0-0.4) % Neut % (Auto) 85.7 H (45-73) % Lymph % (Auto) 4.9 L (20-40) % Lymph # (Auto) 0.6 L (1.2-4.9) X10*3/uL Abs Immat Gran (auto) 0.11 H (0.00-0.03) X10*3/uL Absolute Neuts (auto) 9.8 H (2.0-8.3) X10*3/uL Absolute Nucleated RBC 0.020 H (0.0-0.012) X10*3/uL VBG pH (7.32-7.43) VBG HCO3 (22-26) mmol/L Sodium 147 H 148 H (135-145) mmol/L Potassium 3.2 L D (3.3-5.1) mmol/L Chloride 110 H (96-108) mmol/L Carbon Dioxide 32 H 31 H (22-29) mmol/L Anion Gap 10 L 10 L (12-20) BUN 28 H 23 H (9-16) mg/dL POC Glucose (60-115) mg/dL Random Glucose 125 H (60-115) mg/dL Calcium 8.1 L 8.0 L (8.4-10.2) mg/dL Albumin 3.2 L (3.5-5.0) g/dL 01/07/21 01/07/21 Range/Units 05:25 11:47 WBC (4.8-10.8) X10*3/uL RBC (4.20-5.50) X10*6/uL Hgb (12.0-16.0) g/dl Hct (37-47) % MCV (80-98) fL MCHC (31.0-35.0) g/dl RDW (11.0-16.0) % Immature Gran % (Auto) (0.0-0.4) % Neut % (Auto) (45-73) % Lymph % (Auto) (20-40) % Lymph # (Auto) (1.2-4.9) X10*3/uL Abs Immat Gran (auto) (0.00-0.03) X10*3/uL Absolute Neuts (auto) (2.0-8.3) X10*3/uL Absolute Nucleated RBC (0.0-0.012) X10*3/uL VBG pH 7.46 H (7.32-7.43) VBG HCO3 31 H (22-26) mmol/L Sodium (135-145) mmol/L Potassium (3.3-5.1) mmol/L Chloride (96-108) mmol/L Carbon Dioxide (22-29) mmol/L Anion Gap (12-20) BUN (9-16) mg/dL POC Glucose 132 H (60-115) mg/dL Random Glucose (60-115) mg/dL Calcium (8.4-10.2) mg/dL Albumin (3.5-5.0) g/dL Short CBC 01/07/21 Range/Units 05:21 WBC 11.4 H (4.8-10.8) X10*3/uL Hgb 8.6 L (12.0-16.0) g/dl Hct 28.3 L (37-47) % Plt Count 221 (160-400) X10*3/uL BMP 01/06/21 01/07/21 18:14 05:21 Sodium 147 H 148 H Potassium 3.2 L D 3.4 Chloride 108 110 H Carbon Dioxide 32 H 31 H BUN 28 H 23 H Creatinine 0.63 0.61 Calcium 8.1 L 8.0 L Liver Function 01/07/21 Range/Units 05:21 Albumin 3.2 L (3.5-5.0) g/dL Urine 12/13/20 12/27/20 Range/Units 12:33 17:56 Urine Color YELLOW YELLOW Urine Appearance CLEAR HAZY Urine pH 6.0 7.0 (5.0-8.0) Ur Specific [place] >= 1.030 H 1.010 (1.005-1.025) Urine Protein TRACE 3+ H (NEG-TRACE) MG/DL Urine Glucose (UA) NEG NEG (NEG) MG/DL All other labs normal. Assessment and Plan (1) Acute and chronic respiratory failure: Status: Acute (2) Hemothorax on right: Status: Acute 75-year-old female with respiratory failure following cardiac arrest and resuscitation. Attempts at extubation have been unsuccessful and placement of a tracheostomy tube has been requested. She has a history of head and neck carcinoma treated with radiation and chemotherapy in 2007. I reviewed the reasons for the recommendation for placement of tracheostomy with her and also the risks including but not limited to infection, bleeding, tube dislodgement and pneumothorax. Tracheostomy tube insertion could be performed in about a week by thoracic surgery per their visit note today but likely can be scheduled by the general surgery service this week. I will review the case with Dr. Castro. Discussed with Dr. Hamilton. Procedures Date of Service Date of Service: 01/07/21
[2021-01-07] MEDS: fentaNYL citrate/NS 1,000 MCG/100 ML PLAST..BAG 10 MCG IVCONT (16:12)
[2021-01-07] MEDS: Metoprolol Tartrate 5 MG/5 ML VIAL IVPUSH (16:13)
--- NOTE | 2021-01-07 16:36 | PM.EVENT ---
Event Note Date of Service: 01/08/21 Event Note: patient seen and examined full consult dictated by Dr. Pastor patient referred for tracheostomy tube placement initially admitted for hyponatremia, question SIADH Has CHF, sleep apnea, atrial fibrillation now with right hemothorax had V fib in the hospital had been extubated and reintubated multiple times pt opens eyes spontaneously no neck deformity noted, trachea easily palpable I discussed the technique of tracheostomy tube placement with her daughter Lorraine at [phone] - I explained to her the risks including but not limited to bleeding, infections, loss of airway, tube dislodgement inherent risks of anesthesia, as well as the benefits and alternatives. She has given consent patient placed in the add on list for tomorrow in the OR patient has remote history of head and neck cancer - tonsil/pharyngeal(?) - had chemotherapy, no surgery discussed plan with Dr. Hamilton
[2021-01-07 17:53] LABS: Glucose, Whole Blood 122 mg/dL (60-115)
--- NOTE | 2021-01-07 19:08 | PC.NURSE ---
tmax 100.2, vss on levophed. Pt sedated with propofol and fentanyl, able to follow commands, nod y/n appropriatly. Stable on current vent settings, small amount of cates secretions. Hr down to 36 for breif moment on tele, md aware. U/O WNL, small smear, Tube feedings at max rate, q6hr water flushes given. Plan for trach placement tomorrow 01/08/21, family updated bedside. Repo q2hr, bath given
[2021-01-07] MEDS: Metoprolol Tartrate 12.5 MG HALFTAB PO (21:51)
[2021-01-07 23:59] LABS: Glucose, Whole Blood 120 mg/dL (60-115)
[2021-01-08] VITALS (40 sets, daily range): BP systolic 81–161; BP diastolic 33–69; PULSE 36–183; RESP 20–21; TEMP 36.4–37.5; O2SAT 89–99
[2021-01-08] MEDS: 0.9 % Sodium Chloride Flush 3 ML SYRINGE IVFLUSH ×3 (01:20→18:22)
[2021-01-08] MEDS: fentaNYL citrate/NS 1,000 MCG/100 ML PLAST..BAG 10 MCG IVCONT ×2 (02:19→11:10)
[2021-01-08] MEDS: propofoL 1,000 MG/100 ML VIAL 33.07 MG IVCONT (02:54)
[2021-01-08 05:36] LABS: VBG Base Excess 6.9 mmol/L; VBG HCO3 30 mmol/L (22-26); VBG pCO2 41 mmHg; VBG pH 7.48 (7.32-7.43); VBG pO2 41 mmHg
[2021-01-08 05:37] LABS: MANUAL DIFF FLAG NO
[2021-01-08] MEDS: propofoL 1,000 MG/100 ML VIAL 26.45 MG IVCONT ×3 (05:37→13:30)
[2021-01-08 05:38] LABS: Venous Blood Gas Refer to POC result
[2021-01-08 05:40] LABS: Eosinophils Absolute Auto 0.3 X10*3/uL (0.0-0.4); Eosinophils Percent Auto 3.8 % (0-4); Hematocrit 25.7 % (37-47); Hemoglobin 8.1 g/dl (12.0-16.0); Imm Gran Abs Auto 0.11 X10*3/uL (0.00-0.03); Imm Gran Pct Auto 1.3 % (0.0-0.4); Lymphocytes Absolute Auto 0.7 X10*3/uL (1.2-4.9); Lymphocytes Percent Auto 8.3 % (20-40); Mean Corpuscular HGB Conc 31.5 g/dl (31.0-35.0); Mean Corpuscular Hemoglobin 31.6 pg (27.0-33.0); Mean Corpuscular Volume 100.4 fL (80-98); Mean Platelet Volume 10.4 fL (9.4-12.3); Monocytes Absolute Auto 0.4 X10*3/uL (0.1-1.2); Monocytes Percent Auto 4.9 % (2-11); Neutrophils Percent Auto 81.7 % (45-73); Platelet Count 195 X10*3/uL (160-400); Red Blood Count 2.56 X10*6/uL (4.20-5.50); Red Cell Distribution Width 16.9 % (11.0-16.0); White Blood Count 8.5 X10*3/uL (4.8-10.8)
[2021-01-08 06:09] LABS: Albumin Level 2.8 g/dL (3.5-5.0); Anion Gap 9 (12-20); Blood Urea Nitrogen 16 mg/dL (9-16); Calcium 7.8 mg/dL (8.4-10.2); Carbon Dioxide 30 mmol/L (22-29); Chloride 110 mmol/L (96-108); Creatinine Clr Calc Pharmacy 112.5; Estimated Glomerular Filt Rate > 60; Glucose Random 105 mg/dL (60-115); Magnesium 1.7 mg/dL (1.6-2.6); Phosphorus 2.7 mg/dL (2.7-4.5); Potassium 3.2 mmol/L (3.3-5.1); Sodium 146 mmol/L (135-145)
[2021-01-08] MEDS: Potassium Chloride/H20 40 MEQ/100 ML PIGGYBACK 100 MEQ IV (06:46)
--- NOTE | 2021-01-08 08:22 | P.CDIC_ITS ---
CDI Concurrent Query Service Date: 01/08/21 Documentation Clarification: Please clarify if you are treating a proba ble/suspected/likely or confirmed: Acute Diastolic CHF Provider Response: Other PLEASE DO NOT DELETE/MODIFY EXISTING CONTENT Additional information is needed in order to code to the highest accuracy and appropriate Severity of Illness (SOI). Please clarify the information noted below in your progress notes and discharge summary. Risk Factors/Clinical Indicators/Treatments CDS: Kota Cortes Contact Number: Please Review the information above and exercise your independent professional judgment in responding to the query. If you concur, pleas document in the PROGRESS NOTES and DISCHARGE SUMMARY. If you do not agree with the query, pleas e document in the query above. THIS QUERY IS PART OF THE PERMANENT MEDICAL RECORD
[2021-01-08] MEDS: Magnesium Sulfate/H2O 2 GM/50 ML PIGGYBACK IV (08:53)
[2021-01-08] MEDS: Metoprolol Tartrate 12.5 MG HALFTAB PO (08:58)
[2021-01-08] MEDS: Chlorhexidine Gluc Oral Rinse 15 ML MOUTHWASH BUCCAL ×2 (08:58→14:53)
--- NOTE | 2021-01-08 09:45 | MHC.CM.PN ---
Pt is scheduled for a trach placement today at 10:30am. Dtrs in to visit: HCP copy brought in and placed in chart. Per discussion with MD at rounds, pt will not have a PEG placed at this time but may require one in the near future: it will depend on her swallow eval. Pt has been referred to [facility] in anticipation of trach placement. OR report will be remitted when available. Pt will remain INPT over the weekend and will be reassessed on 01/11 for transfer potential. CM to follow
--- NOTE | 2021-01-08 10:32 | PM.PNTS ---
Subjective Subjective Date of Service: 01/08/21 Interval history: Patient was seen and examined this morning. Patient remains on ventilator rate controlled sedated on propofol. Tracheostomy insertion scheduled for this morning. Her right-sided chest tube has put out approximately 175 cc of serosanguineous fluid, no detectable air leak and chest x-ray shows no reaccumulation of right-sided pleural effusion. Unable to obtain review of systems at this time due to patient being intubated sedated. Physical Exam Vital Signs: Vital Signs: Last Vital Signs Temp 98.2 F 01/08/21 10:00 Pulse 81 01/08/21 10:00 Resp 20 01/08/21 10:00 BP 108/50 L 01/08/21 10:00 Pulse Ox 98 01/08/21 10:00 Oxygen Flow Rate 2 12/26/20 15:00 Body Mass Index 39.2 Const: General: no acute distress HENMT: Head: Yes normal to inspection Eyes: General: appearance normal, both eyes and all related structures Conjunctivae: conjunctivae normal Sclerae: sclerae normal Neck: Other: Trachea midline with no evidence of subcutaneous air or crepitus. Chest: Other: Right-sided chest tube had remained on water seal overnight with approximately 175 of serosanguineous fluid output. No detectable air leak. Her right-sided chest tube was removed this morning by myself and a dry occlusive dressing was put in place. Breath sounds are clear/diminished bilaterally, no wheezes rales or rhonchi. Cardio: Other: Irregularly irregular rhythm, rate controlled below 100 beats per minute GI: Other: Obese, soft, nontender with normoactive bowel sounds : Other: Jones catheter remains in place with pale yellow urine present. Extrem: Other: Bilateral Upper and lower extremities +1 edema present Progress Note: A&P Assessment and plan (1) Hemothorax on right: Status: Acute Assessment and Plan: Pt is a 75-year-old female with a past medical history of type 2 diabetes, morbid obesity, COPD, CHF, atrial fibrillation with a home regimen of Eliquis who was admitted for weakness and probable acute on chronic diastolic heart failure. On 12/27/20, patient had a PEA arrest resulting in trauma to the chest cavity following 10 mins of CPR with findings on chest CT of left-sided rib fractures 2-7 and right-sided hemothorax. Patient remains intubated and sedated or hypercarbic/hypoxic respiratory failure. This is patient's 2nd intubation during her stay and is due to have a tracheostomy placed this morning. Patient had approximately 175 cc of serosanguineous drainage over past 24 hours. Chest x-ray this morning shows no reaccumulation of right-sided pleural effusion. There is increase in size of left pleural effusion. A right-sided pigtail chest tube catheter was removed this morning without incident and a dry occlusive dressing put in place. Nursing team was advised this dressing should remain in place for the next 48 hours. Chest tube should remain indwelling until fluid out put becomes less than 200 cc over 24 hr period Vital signs are stable. Patient remains in A. fib with heart rate in the 80s. Fall Risk Details Current Medications: Current Medications Generic Name Dose Route Start Last Admin Trade Name Freq PRN Reason Stop Dose Admin Chlorhexidine Gluconate 15 ml 01/05/21 15:00 01/08/21 08:58 Chlorhexidine Gluc Oral Rinse 15 Ml Mouthwash BUCCAL 15 ml TID DEE Administration Digoxin 0.125 mg 01/06/21 09:00 01/08/21 09:03 Digoxin 0.5 Mg/2 Ml Ampul IVPUSH Not Given DAILY DEE Fentanyl 50 mcg 01/05/21 10:55 01/05/21 14:20 Fentanyl Citrate/Pf 100 Mcg/2 Ml Vial IVPUSH 50 mcg Q2H PRN Administration Pain, Moderate (Pain Scale 4-6 Propofol 1,000 mg in 100 mls @ 0 mls/hr 01/05/21 12:30 01/08/21 08:51 Diprivan IVCONT 40 mcg/kg/min .Q0M DEE 26.45 mls/hr Administration Protocol Per Protocol Fentanyl 1,000 mcg in 100 mls @ 0 mls/hr 01/05/21 17:15 01/08/21 02:19 Sublimaze/Ns IVCONT 100 mcg/hr .Q0M DEE 10 mls/hr Administration Protocol Per Protocol Norepinephrine Bitartrate 8 mg in 250 mls @ 0 mls/hr 01/05/21 20:15 01/08/21 08:56 Levophed IVCONT 0.04 mcg/kg/min .Q0M DEE 8.27 mls/hr Administration Protocol Per Protocol Insulin Human Lispro 0 unit 12/28/20 12:00 01/08/21 06:19 Insulin Lispro 100 Unit/Ml 3 Ml Vial SUBCUT Not Given Q6H [facility] Protocol Metoprolol Tartrate 5 mg 01/03/21 14:08 01/07/21 16:13 Metoprolol Tartrate 5 Mg/5 Ml Vial IVPUSH 5 mg Q6H PRN Administration Heart Rate >100 Metoprolol Tartrate 12.5 mg 01/07/21 21:00 01/08/21 08:58 Metoprolol Tartrate 12.5 Mg Halftab PO 12.5 mg BID [facility] Administration Protocol Naloxone HCl 0.2 mg 01/05/21 17:02 Naloxone Hcl 0.4 Mg/Ml Vial IVPUSH Q2M PRN Excessive sedation or RR < 8 Omeprazole 40 mg 01/06/21 06:30 01/08/21 06:18 Omeprazole 20 Mg/10 Ml Susp.Recon PO Not Given DAILY@0630 [facility] Sodium Chloride 3 ml 12/14/20 00:00 01/08/21 09:02 0.9 % Sodium Chloride Flush 3 Ml Syringe IVFLUSH 3 ml QSHIFT [facility] Administration Time Spent With Patient Time: Total time spent is greater than 50% in coordination of care (as documented) at patient's floor/unit and/or counseling patient: Time with patient: 15 - 24 minutes Procedures Date of Service Date of Service: 01/08/21
[2021-01-08] MEDS: DOPamine HCL/D5W 400 MG/250 ML PLAST..BAG 20.67 MG IVCONT (11:00)
--- NOTE | 2021-01-08 11:17 | MHC.SHP ---
Pre-Procedural Eval Section B Chief Complaint: Acute Hyponatremia, Chf Allergies: Allergies Allergy/AdvReac Type Severity Reaction Status Date / Time amiodarone Allergy Severe Difficulty Verified 01/03/21 21:43 Breathing SEASONAL ALLERGIES Allergy Unknown SNEEZING Uncoded 04/23/20 15:17 RUNNY NOSE Plan I have reviewed the history and physical and performed a pertinent physical examination on my patient. No changes have occurred unless specified.
--- NOTE | 2021-01-08 12:58 | P.OP_ITS ---
Operative Note Operative Note Date of Service: 01/08/21 Narrative: Preop diagnosis: Acute respiratory failure, with multiple intubations Postop diagnosis: The same Procedure: Tracheostomy tube placement Surgeon: Juan Miguel Castro MD [employer] Cooking: none The patient is a 75-year-old female with multiple medical problems, who had been admitted because of acute respiratory failure due to obstructive sleep apnea she actually had an episode of cardiac arrest on admission. She had been extubated and reintubated multiple times. I was therefore asked by the web marketing intern to place a tracheostomy tube . I discussed this procedure with her daughter Lorraine Ch. I explained to her the technique of this procedure as well as the risks, benefits, and alternatives and she had given consent The patient was brought to the operating room and placed supine on the table under general anesthesia via the endotracheal tube. The neck was hyperextended with sheets under the back. A surgical time-out was done. The patient received cefazolin 2 g IV preoperatively The anterior neck was prepped and draped in the usual sterile fashion. I marked the planned incision by palpating the trachea. i this area with lidocaine 1%. I made a long good channel incision in the skin overlying the palpable trachea using a blade 15. This was carried down through the full-thickness of the skin and subcutaneous fat. I then incised the fascia with electrocautery and dissected gently through this soft tissue overlying the trachea. We were palpating the trachea as we proceeded with dissection using the electrocautery to make sure that we were staying on the midline of the tracheal wall. Eventually I was able to directly feel the tracheal rings. I bluntly dissected the tracheal rings using a peanut to clearly define this. I chose the 2nd and 3rd tracheal rings for the tracheotomy . I used the 11 blade to divide the tracheal rings at this level. I then placed the tracheal machine set up technician and dilated this.. I placed a tracheal hook superiorly to lift up the trachea and maintain positioning. We could clearly see the endotracheal tube and we gradually withdrew this. Once the tip of the ET tube was past the tracheotomy I inserted a Shiley #8 tracheostomy tube, fenestrated. This was position into the tracheal lumen without difficulty, and I removed the obturator and replaced this with the inner cannula. The cuff was then inflated. We connected the tracheostomy tube to the ventilator. There was note of good O2 sats, good tidal volumes and good end-tidal CO2 confirming proper positioning of the tracheostomy tube. I then secured the tracheostomy to the skin with nylon 2-0 sutures. I closed part of the skin incision with silk 3-0 interrupted sutures to make this tighter around the tracheostomy. Dressings were applied. I applied a strap as well around the neck to further secure the tracheostomy. The patient tolerated the procedure well. There were no complications noted. Initial and final counts of sponges and instruments were correct. Estimated blood loss was about 3 cc. The patient was then transferred back to the ICU with stable vital signs. We confirmed good volumes, good O2 saturations and good end-tidal CO2 prior to transfer to the ICU.
--- NOTE | 2021-01-08 13:05 | PM.OP ---
Brief Operative Note Date of Service: 01/08/21 Pre-op diagnosis: Respiratory failure Post-op diagnosis: same Procedure: Tracheostomy tube placement Surgeon: Juan Miguel Castro MD Anesthesia: GETA Was an International Affairs Vice President used for this Procedure?: No Estimated blood loss (mL): 3 Pathology: none sent Condition: stable Disposition: ICU
--- NOTE | 2021-01-08 13:09 | PM.CCPN ---
Subjective Subjective Date of Service: 01/08/21 Interval History: 75-year-old lady with underlying diabetes mellitus, morbid obesity, ANITA noncompliant with CPAP, hypertension, AFib on Eliquis, CAD, anxiety, with recent admission for AFib requiring cardioversion, admitted on December 13 with dyspnea, nausea, and vomiting, treated for hyponatremia and congestive heart failure, also noted to have esophageal stricture, status post EGD on 12/24 with balloon dilatation, further hospital course complicated by acute on chronic hypoxic and hypercapnic respiratory failure, with what appears to have been a bradycardic episode with possible cardiac arrest on 12/27, status post 10 minutes of CPR, intubated during resuscitation, attempting to talk after return of spontaneous circulation, thus did not undergo hypothermia. Extubated on 12/29, requiring right-sided chest tube on 12/30 for right hemothorax, re-intubated on 12/30 for worsening respiratory status, extubated 01/04/2021. Required re-intubation on 01/05/2021 secondary to recurrent aspirations. Right chest tube removed on 01/08/2021. Planned for tracheostomy today. Overnight with intermittent episodes of bradycardia and AFib with RVR. Critical Care Time (minutes): 60 Physical Exam Vital Signs: Vital Signs: Last Vital Signs Temp 97.9 F 01/08/21 11:00 Pulse 120 H 01/08/21 11:24 Resp 20 01/08/21 11:00 BP 87/39 L 01/08/21 11:26 Pulse Ox 98 01/08/21 10:00 Oxygen Flow Rate 2 12/26/20 15:00 Body Mass Index 39.2 Const: General: no acute distress and other (Sedated on the vent) Eyes: Sclerae: sclerae normal EOM: EOMs intact bilaterally Neck: Neck: Yes no lymphadenopathy, Yes trachea midline and Yes supple Resp: Effort & Inspection: normal respiratory effort and no respiratory distress Auscultation: clear to auscultation bilaterally Cardio: Rhythm: abnormal rhythm irregularly irregular Heart sounds: no gallops, no murmurs and no rubs GI: Palpation (GI): Soft to palpation and Other GI palpation findings present ( Nontender) Auscultation: normal bowel sounds Extrem: General: No clubbing, No cyanosis and Yes pedal edema (1+ bilateral) Objective Data Labs CBC & Chem 7: 01/08/21 05:25 01/08/21 05:25 Labs: Laboratory Results - last 24 hr 01/07/21 01/07/21 01/08/21 17:50 23:55 05:25 WBC 8.5 RBC 2.56 L Hgb 8.1 L Hct 25.7 L MCV 100.4 H MCH 31.6 MCHC 31.5 RDW 16.9 H Plt Count 195 MPV 10.4 Immature Gran % (Auto) 1.3 H Neut % (Auto) 81.7 H Lymph % (Auto) 8.3 L [place] % (Auto) 4.9 Eos % (Auto) 3.8 Baso % (Auto) 0.0 Lymph # (Auto) 0.7 L [place] # (Auto) 0.4 Eos # (Auto) 0.3 Baso # (Auto) 0.0 Abs Immat Gran (auto) 0.11 H Absolute Neuts (auto) 7.0 Absolute Nucleated RBC 0.000 Nucleated RBC % (auto) 0.0 VBG pH VBG pCO2 VBG pO2 VBG HCO3 VBG O2 Saturation VBG Base Excess Sodium Potassium Chloride Carbon Dioxide Anion Gap BUN Creatinine Estim Creat Clear Calc Estimated GFR POC Glucose 122 H 120 H Random Glucose Calcium Phosphorus Magnesium Albumin 01/08/21 01/08/21 05:25 05:28 WBC RBC Hgb Hct MCV MCH MCHC RDW Plt Count MPV Immature Gran % (Auto) Neut % (Auto) Lymph % (Auto) [place] % (Auto) Eos % (Auto) Baso % (Auto) Lymph # (Auto) [place] # (Auto) Eos # (Auto) Baso # (Auto) Abs Immat Gran (auto) Absolute Neuts (auto) Absolute Nucleated RBC Nucleated RBC % (auto) VBG pH 7.48 H VBG pCO2 41 VBG pO2 41 VBG HCO3 30 H VBG O2 Saturation 71.0 VBG Base Excess 6.9 Sodium 146 H Potassium 3.2 L Chloride 110 H Carbon Dioxide 30 H Anion Gap 9 L BUN 16 Creatinine 0.56 Estim Creat Clear Calc 112.5 Estimated GFR > 60 POC Glucose Random Glucose 105 Calcium 7.8 L Phosphorus 2.7 Magnesium 1.7 Albumin 2.8 L Microbiology Microbiology Results: Microbiology 12/30/20 06:29 Blood - Venous Blood Culture - Final No growth after 5 days. 12/30/20 06:20 Blood - Venous Blood Culture - Final No growth after 5 days. 12/31/20 15:59 Sputum - Suctioned Gram Stain - Final 12/31/20 15:59 Sputum - Suctioned Sputum Culture - Final 12/30/20 06:37 Kidney - Jones Catheter Urine Culture - Final No growth. 12/27/20 17:56 Sputum - Suctioned Gram Stain - Final 12/27/20 17:56 Sputum - Suctioned Sputum Culture - Final 12/27/20 17:53 Urine clean catch - Clean Catch Midstream Urine Culture - Final No growth. Progress Note: A&P Assessment and plan (1) Pulmonary aspiration: Status: Acute Assessment and Plan: Assessment: 75-year-old lady with underlying obesity, ANITA, CAD congestive heart failure, AFib, initially admitted with exacerbation of congestive heart failure with hospital course complicated by esophageal stricture status post balloon dilatation, cardiac arrest with return of spontaneous circulation after 10 minutes of CPR, right hemothorax status post chest tube placement, acute on chronic hypoxic and hypercapnic respiratory failure, and recurrent pulmonary aspirations Plan: Neuro: No acute issues. Cardiac: Cardiac arrest status post returned spontaneous circulation after 10 minutes of CPR. Underlying diastolic congestive heart failure. Improved with diuresis. Underlying AFib with tachy-reuben syndrome, now on rate and rhythm control. Pulmonary: Acute hypoxic and hypercapnic respiratory failure initially intubated during the CPR, also underlying ANITA with obesity hypoventilation, further complicated by right-sided hemothorax. Thoracic surgery service care appreciated. Chest tube removed 01/08/2021. Extubated 01/04/2021. Required re-intubation on 01/05/2021 secondary to recurrent aspiration. Being planned for tracheostomy. Renal: Acute kidney injury, resolved. Urinary retention requiring reinsertion of Jones catheter. Endo: No acute issues. Underlying diabetes mellitus. GI: No acute issues. ID: No acute issues Heme/Onc: No acute issues. Psych: No acute issues. Miscellaneous: No acute issues. Prophylaxis: Intermittent pneumatic compression, no pharmacologic prophylaxis secondary to hemothorax, ppi Diet: Tube feeds Critical care time spent: 60 minutes (2) HTN (hypertension): Status: Acute (3) CAD (coronary artery disease): Status: Acute (4) Acute and chronic respiratory failure: Status: Acute (5) Sick sinus syndrome: Status: Acute (6) Sleep apnea: Status: Acute (7) PAF (paroxysmal atrial fibrillation): Status: Acute (8) Cardiac arrest: Status: Acute
[2021-01-08 13:44] LABS: Glucose, Whole Blood 105 mg/dL (60-115)
[2021-01-08] MEDS: dilTIAZem HCL 125 MG in 0.9 % Sodium Chloride 100 ML IVCONT (14:50)
--- NOTE | 2021-01-08 16:00 | P.EN_ITS ---
Event Note Date of Service: 01/08/21 Event Note: seen postop - underwent uneventful tracheostomy tube placement ear lier appears comfortable good O2 sats good tidal volumes trache site dry rest of care as per ICU
[2021-01-08 18:09] LABS: Glucose, Whole Blood 113 mg/dL (60-115)
[2021-01-08] MEDS: fentaNYL citrate/NS 1,000 MCG/100 ML PLAST..BAG 15 MCG IVCONT (18:25)
--- NOTE | 2021-01-08 18:40 | PC.NURSE ---
assumed care at 0700. Patient was alert and following commands, was on 40 propofol and 100 of fentanyl. Thoracic PA in and assessed CT, removed CT after noting that CT had put out less than 200 ccs in 24 hours. dressing applied by PA: nonadherent gauze and tegaderms. Discussed ?followup CXR with PA, not indicated at that time per PA. Patient in a-fib on monitor, was having bradycardia on monitor with rate as low as 33; was started on dopamine gtt about 11 am briefly for this and it was then turned off soon after, during which time her HR was seen to rise to 170-180's in afib. During this episode, levo had been stopped, when dopamine was stopped after about 10 munutes, levo was restarted. Patient was taken by surgery and a #8 fenestrated shiley trach was placed; during trach care, noted to have incision that is somewhat larger than the trach, and air is audibly passing by the trach through the incision, MD aware. Patient on AC/VC settings; rate 20; TV 500 (increased from 450); 40% fio2; peep 5.0, patient not making volumes, often with TV around 390-440, and Te was often around 6-7 before increasing the mandatory TV in the evening; now Te closer to 7-8, MD aware and worked with RT to optimize settings. Small serosanguineous drainage from the site. Lung sounds had been rhonchorous throughout left lung field, CXR after trach placement showed large radha out sections of left lung, MD aware. Some soft BPs and low MAPs <65, but Levo with good effect. Continues to be NPO, OG tube was removed post-op, and MD discussed plan to place Kaofeed tube, but has not yet placed it. Urine outputs seem to be declining this evening but 25-45 cc/hour dark yellow. TLC to left chest from 12/27; discussed removing this and wright with MD at rounds, but will wait a little longer per MD.
[2021-01-08] MEDS: fentaNYL citrate/NS 1,000 MCG/100 ML PLAST..BAG 20 MCG IVCONT (23:38)
[2021-01-08 23:45] LABS: Glucose, Whole Blood 117 mg/dL (60-115)
[2021-01-09] VITALS (38 sets, daily range): BP systolic 92–146; BP diastolic 35–65; PULSE 70–189; RESP 12–23; TEMP 37.3–38; O2SAT 89–115
[2021-01-09] MEDS: propofoL 1,000 MG/100 ML VIAL 6.61 MG IVCONT (00:59)
[2021-01-09] MEDS: fentaNYL citrate/NS 1,000 MCG/100 ML PLAST..BAG 20 MCG IVCONT ×2 (04:44→09:32)
[2021-01-09 05:29] LABS: VBG Base Excess 7.1 mmol/L; VBG HCO3 30 mmol/L (22-26); VBG pCO2 39 mmHg; VBG pH 7.49 (7.32-7.43); VBG pO2 71 mmHg
[2021-01-09 05:40] LABS: Basophils Percent Auto 0.1 % (0-2); Eosinophils Absolute Auto 0.3 X10*3/uL (0.0-0.4); Eosinophils Percent Auto 2.6 % (0-4); Hematocrit 27.5 % (37-47); Hemoglobin 8.6 g/dl (12.0-16.0); Imm Gran Abs Auto 0.12 X10*3/uL (0.00-0.03); Imm Gran Pct Auto 1.2 % (0.0-0.4); Lymphocytes Absolute Auto 0.7 X10*3/uL (1.2-4.9); Lymphocytes Percent Auto 6.6 % (20-40); MANUAL DIFF FLAG SCAN; Mean Corpuscular HGB Conc 31.3 g/dl (31.0-35.0); Mean Corpuscular Hemoglobin 31.4 pg (27.0-33.0); Mean Corpuscular Volume 100.4 fL (80-98); Mean Platelet Volume 10.5 fL (9.4-12.3); Monocytes Absolute Auto 0.5 X10*3/uL (0.1-1.2); Monocytes Percent Auto 5.2 % (2-11); Neutrophils Absolute Auto 8.4 X10*3/uL (2.0-8.3); Neutrophils Percent Auto 84.3 % (45-73); Platelet Count 188 X10*3/uL (160-400); Red Blood Count 2.74 X10*6/uL (4.20-5.50); Red Cell Distribution Width 17.2 % (11.0-16.0); SCAN SMEAR FLAG 1
[2021-01-09 05:49] LABS: Venous Blood Gas Refer to POC result
[2021-01-09] MEDS: Metoprolol Tartrate 5 MG/5 ML VIAL IVPUSH ×2 (05:49→14:09)
[2021-01-09 06:03] LABS: Albumin Level 2.7 g/dL (3.5-5.0); Anion Gap 11 (12-20); Blood Urea Nitrogen 14 mg/dL (9-16); Calcium 7.8 mg/dL (8.4-10.2); Carbon Dioxide 28 mmol/L (22-29); Chloride 111 mmol/L (96-108); Creatinine Clr Calc Pharmacy 110.5; Estimated Glomerular Filt Rate > 60; Glucose Random 89 mg/dL (60-115); Magnesium 1.7 mg/dL (1.6-2.6); Phosphorus 2.7 mg/dL (2.7-4.5); Sodium 146 mmol/L (135-145)
[2021-01-09] MEDS: Albumin Human 25 % 100 ML IV ×4 (06:19→20:20)
[2021-01-09] MEDS: Magnesium Sulfate/H2O 2 GM/50 ML PIGGYBACK IV ×2 (06:21→08:12)
[2021-01-09 06:52] LABS: SLIDE REVIEW VERIFIED
[2021-01-09] MEDS: Chlorhexidine Gluc Oral Rinse 15 ML MOUTHWASH BUCCAL ×3 (08:12→20:20)
[2021-01-09] MEDS: 0.9 % Sodium Chloride Flush 3 ML SYRINGE IVFLUSH ×2 (08:12→15:17)
[2021-01-09] MEDS: Midazolam HCl/PF 2 MG/2 ML VIAL IVPUSH (08:57)
--- NOTE | 2021-01-09 09:17 | P.PNCC_ITS ---
Subjective Subjective Date of Service: 01/09/21 Interval History: 75-year-old lady with underlying diabetes mellitus, morbid obesity, ANITA noncompliant with CPAP, hypertension, AFib on Eliquis, CAD, anxiety, with recent admission for AFib requiring cardioversion, admitted on December 13 with dyspnea, nausea, and vomiting, treated for hyponatremia and congestive heart failure, also noted to have esophageal stricture, status post EGD on 12/24 with balloon dilatation, further hospital course complicated by acute on chronic hypoxic and hypercapnic respiratory failure, with what appears to have been a bradycardic episode with possible cardiac arrest on 12/27, status post 10 minutes of CPR, intubated during resuscitation, attempting to talk after return of spontaneous circulation, thus did not undergo hypothermia. Extubated on 12/29, requiring right-sided chest tube on 12/30 for right hemothorax, re- intubated on 12/30 for worsening respiratory status, extubated 01/04/2021. Required re-intubation on 01/05/2021 secondary to recurrent aspirations. Right chest tube removed on 01/08/2021. Status post tracheostomy on 01/08/2021. No events overnight. Critical Care Time (minutes): 60 Physical Exam Vital Signs: Vital Signs: Last Vital Signs Temp 99.5 F 01/09/21 09:00 Pulse 102 H 01/09/21 09:00 Resp 14 01/09/21 09:00 BP 110/49 L 01/09/21 09:00 Pulse Ox 95 01/09/21 09:00 Oxygen Flow Rate 2 12/26/20 15:00 Body Mass Index 39.2 Const: General: no acute distress and lethargic (Arousable) Orientation/consciousness: lethargic (Arousable) Eyes: Sclerae: sclerae normal EOM: EOMs intact bilaterally Neck: Neck: Yes no lymphadenopathy, Yes trachea midline and Yes supple Resp: Auscultation: clear to auscultation bilaterally Cardio: Rate: regular rate Rhythm: abnormal rhythm regularly irregular Heart sounds: no gallops, no murmurs and no rubs GI: Palpation (GI): Soft to palpation and Other GI palpation findings present ( Nontender) Auscultation: normal bowel sounds Extrem: General: No clubbing, No cyanosis and Yes pedal edema (1+ bilateral) Objective Data Labs CBC & Chem 7: 01/09/21 05:20 01/09/21 05:20 Labs: Laboratory Results - last 24 hr 01/08/21 01/08/21 01/08/21 13:40 18:00 23:36 WBC RBC Hgb Hct MCV MCH MCHC RDW Plt Count MPV Immature Gran % (Auto) Neut % (Auto) Lymph % (Auto) [place] % (Auto) Eos % (Auto) Baso % (Auto) Lymph # (Auto) [place] # (Auto) Eos # (Auto) Baso # (Auto) Abs Immat Gran (auto) Absolute Neuts (auto) Absolute Nucleated RBC Nucleated RBC % (auto) Smear Tech's Comments VBG pH VBG pCO2 VBG pO2 VBG HCO3 VBG O2 Saturation VBG Base Excess Sodium Potassium Chloride Carbon Dioxide Anion Gap BUN Creatinine Estim Creat Clear Calc Estimated GFR POC Glucose 105 113 117 H Random Glucose Calcium Phosphorus Magnesium Albumin 01/09/21 01/09/21 01/09/21 05:20 05:20 05:23 WBC 10.0 RBC 2.74 L Hgb 8.6 L Hct 27.5 L MCV 100.4 H MCH 31.4 MCHC 31.3 RDW 17.2 H Plt Count 188 MPV 10.5 Immature Gran % (Auto) 1.2 H Neut % (Auto) 84.3 H Lymph % (Auto) 6.6 L [place] % (Auto) 5.2 Eos % (Auto) 2.6 Baso % (Auto) 0.1 Lymph # (Auto) 0.7 L [place] # (Auto) 0.5 Eos # (Auto) 0.3 Baso # (Auto) 0.0 Abs Immat Gran (auto) 0.12 H Absolute Neuts (auto) 8.4 H Absolute Nucleated RBC 0.000 Nucleated RBC % (auto) 0.0 Smear Tech's Comments VERIFIED VBG pH 7.49 H VBG pCO2 39 VBG pO2 71 VBG HCO3 30 H VBG O2 Saturation 94.0 VBG Base Excess 7.1 Sodium 146 H Potassium 4.0 D Chloride 111 H Carbon Dioxide 28 Anion Gap 11 L BUN 14 Creatinine 0.57 Estim Creat Clear Calc 110.5 Estimated GFR > 60 POC Glucose Random Glucose 89 Calcium 7.8 L Phosphorus 2.7 Magnesium 1.7 Albumin 2.7 L Microbiology Microbiology Results: Microbiology 12/30/20 06:29 Blood - Venous Blood Culture - Final No growth after 5 days. 12/30/20 06:20 Blood - Venous Blood Culture - Final No growth after 5 days. 12/31/20 15:59 Sputum - Suctioned Gram Stain - Final 12/31/20 15:59 Sputum - Suctioned Sputum Culture - Final 12/30/20 06:37 Kidney - Jones Catheter Urine Culture - Final No growth. 12/27/20 17:56 Sputum - Suctioned Gram Stain - Final 12/27/20 17:56 Sputum - Suctioned Sputum Culture - Final 12/27/20 17:53 Urine clean catch - Clean Catch Midstream Urine Culture - Final No growth. Progress Note: A&P Assessment and plan (1) Pulmonary aspiration: Status: Acute Assessment and Plan: Assessment: 75-year-old lady with underlying obesity, ANITA, CAD congestive heart failure, AFib, initially admitted with exacerbation of congestive heart failure with hospital course complicated by esophageal stricture status post balloon dilatation, cardiac arrest with return of spontaneous circulation after 10 minutes of CPR, right hemothorax status post chest tube placement, acute on chronic hypoxic and hypercapnic respiratory failure, and recurrent pulmonary aspirations Plan: Neuro: No acute issues. Cardiac: Cardiac arrest status post returned spontaneous circulation after 10 minutes of CPR. Underlying diastolic congestive heart failure. Improved with diuresis. Underlying AFib with tachy-reuben syndrome, now on rate control. Pulmonary: Acute hypoxic and hypercapnic respiratory failure initially intubated during the CPR, also underlying ANITA with obesity hypoventilation, further complicated by right-sided hemothorax. Thoracic surgery service care appreciated. Chest tube removed 01/08/2021. Extubated 01/04/2021. Required re-intubation on 01/05/2021 secondary to recurrent aspiration. Status post tracheostomy on 01/08/2021. General surgery service care appreciated. Renal: Acute kidney injury, resolved. Urinary retention requiring reinsertion of Jones catheter. Endo: No acute issues. Underlying diabetes mellitus. GI: No acute issues. ID: No acute issues Heme/Onc: No acute issues. Psych: No acute issues. Miscellaneous: No acute issues. Prophylaxis: Heparin, ppi Diet: Tube feeds Critical care time spent: 60 minutes (2) HTN (hypertension): Status: Acute (3) CAD (coronary artery disease): Status: Acute (4) Acute and chronic respiratory failure: Status: Acute (5) Sick sinus syndrome: Status: Acute (6) Sleep apnea: Status: Acute (7) PAF (paroxysmal atrial fibrillation): Status: Acute (8) Cardiac arrest: Status: Acute
[2021-01-09] MEDS: Furosemide 200 MG in 0.9 % Sodium Chloride 80 ML IVCONT ×2 (09:28→17:33)
[2021-01-09] MEDS: Heparin Sodium,Porcine 5,000 UNIT/ML VIAL 5000 UNIT SUBCUT ×2 (09:30→18:16)
[2021-01-09 12:01] LABS: Glucose, Whole Blood 95 mg/dL (60-115)
--- NOTE | 2021-01-09 13:59 | HO.POSTANES ---
Post Anesthesia Evaluation Post Anesthesia Evaluation Vital Signs: Vital Signs Temp Pulse Resp BP Pulse Ox 01/09/21 13:00 99.1 F 103 H 12 128/47 L 95 01/09/21 11:56 99.1 F 93 12 108/46 L 98 01/09/21 11:00 99.1 F 89 12 105/47 L 89 L 01/09/21 10:13 92/37 L 01/09/21 10:00 99.3 F 95 14 92/37 L 97 01/09/21 09:00 99.5 F 102 H 14 110/49 L 95 01/09/21 08:00 99.5 F 122 H 14 97/58 L 94 01/09/21 07:00 99.5 F 88 19 124/56 L 96 01/09/21 06:00 99.9 F 111 H 20 123/50 L 95 01/09/21 05:49 180 H 01/09/21 05:00 99.7 F 98 20 117/45 L 99 01/09/21 04:00 99.9 F 102 H 20 101/40 L 99 01/09/21 03:00 99.7 F 126 H 20 132/45 L 97 01/09/21 02:00 99.5 F 81 20 99 Anesthesia: General Mental Status: Sedated Pain Control: Satisfactory Nausea/Vomiting: None Hydration: Adequate Anesthesia-Related Issues: No Anes. Related Issues
[2021-01-09] MEDS: dilTIAZem HCL 125 MG in 0.9 % Sodium Chloride 100 ML IVCONT (17:25)
--- NOTE | 2021-01-09 17:46 | PC.NURSE ---
Addendum entered by Akila Wade RN 01/09/21 18:45: HR REMAINS 160S, MD NOTIFIED - ORDERED AND ADMINISTERED CARDIZEM 10 MG X 1 AT 1809. PT AGITATED AND HR REMAINING 140-160S - MD NOTIFIED - PRECEDEX GTT STARTED AT 1 MCG/KG/HR AT 1842. Original Note: S/E [id number]: PT RESPONDS TO NAME, NODS YES OR NO TO QUESTIONS. DAY WENT ON PT APPEARED WITHDRAWN AND NOT ANSWERING MANY QUESTIONS. FOLLOWS SIMPLE COMMANDS. DENIES PAIN. FENTANYL GTT TITRATED DOWN TO 50 MCG/HR. AFEBRILE. VSS. PRN LOPRESSOR 5MG X 1 GIVEN FOR HR IN 180S WITH POSITIVE EFFECT AT 1409. HR INCREASED AND SUSTAINED 160-180S, MD NOTIFIED AND ORDERED TO RESTART CARDIZEM GTT AT 1735 - CURRENTLY RUNNING AT 10 MG/HR. VENT SETTINGS ADJUSTED THROUGHOUT THE DAY DUE TO LOW MINUTE AND TIDAL VOLUMES. CURRENT SETTINGS AC 16/500/5/30%. L > R EDEMA TO HAND, ARM, AND LOWER EXTREMETIES - MD AWARE AND ORDERED US VENOUS DOPPLAR: SEE REPORT. STARTED A LASIX GTT AT 2MG/HR AT 0928 AND INCREASED PER MD TO 5 MG/HR AT 1733. CRUZ OUTPUT WNL. KO FEED TUBE PLACED TO RIGHT NARE BY . VERSED 2 MG X 1 ORDERED AND ADMINISTERED PRIOR TO INSERTION. GLUCERNA TUBE FEEDS STARTED AT 20 ML/HR WITH INCREASE Q4HR BY 10 ML WITH MAX OF 50 ML/H, CURRENTLY AT 40 ML/HR. BM - SMEARING NOTED. BATHED, Q2HR REPO, PREVALON MATTRESS WITH PILLOWS AND WEDGES, BARRIER CREAM AND INTERDRY TO FOLDS, AWAITING NYSTATIN POWDER FROM PHARMACY. CHEST TUBE DRESSING C/D/I. FAMILY UPDATED BY THIS RN.
[2021-01-09] MEDS: dilTIAZem HCL 50 MG/10 ML VIAL 10 MG IVPUSH (18:09)
[2021-01-09] MEDS: Nystatin Powder 15 GM BOTTLE 1 APPL TOPICAL ×2 (18:11→20:21)
[2021-01-09] MEDS: fentaNYL citrate/NS 1,000 MCG/100 ML PLAST..BAG 5 MCG IVCONT (18:17)
[2021-01-09 18:23] LABS: Glucose, Whole Blood 110 mg/dL (60-115)
[2021-01-09] MEDS: dexmedeTOMIDidine HCL/NS 400 MCG/100 ML INFUS..BTL 27.56 MCG IVCONT ×3 (18:39→23:57)
[2021-01-09 19:15] LABS: Anion Gap 15 (12-20); Blood Urea Nitrogen 13 mg/dL (9-16); Calcium 8.4 mg/dL (8.4-10.2); Carbon Dioxide 27 mmol/L (22-29); Chloride 109 mmol/L (96-108); Creatinine Clr Calc Pharmacy 96.9; Estimated Glomerular Filt Rate > 60; Glucose Random 119 mg/dL (60-115); Potassium 3.6 mmol/L (3.3-5.1); Sodium 147 mmol/L (135-145)
[2021-01-09 22:45] LABS: Glucose, Whole Blood 136 mg/dL (60-115)
[2021-01-10] VITALS (31 sets, daily range): BP systolic 113–167; BP diastolic 46–77; PULSE 69–97; RESP 16–29; TEMP 38–39.3; O2SAT 93–99
[2021-01-10] MEDS: Heparin Sodium,Porcine 5,000 UNIT/ML VIAL 5000 UNIT SUBCUT ×2 (03:00→10:12)
[2021-01-10] MEDS: Albumin Human 25 % 100 ML IV (03:00)
[2021-01-10] MEDS: dexmedeTOMIDidine HCL/NS 400 MCG/100 ML INFUS..BTL 27.56 MCG IVCONT ×6 (03:01→23:45)
[2021-01-10 06:15] LABS: VBG Base Excess 13.9 mmol/L; VBG HCO3 37 mmol/L (22-26); VBG pCO2 40 mmHg; VBG pH 7.57 (7.32-7.43); VBG pO2 58 mmHg
[2021-01-10 06:57] LABS: Albumin Level 4.3 g/dL (3.5-5.0); Anion Gap 17 (12-20); Blood Urea Nitrogen 11 mg/dL (9-16); Calcium 8.4 mg/dL (8.4-10.2); Carbon Dioxide 30 mmol/L (22-29); Chloride 102 mmol/L (96-108); Estimated Glomerular Filt Rate > 60; Glucose Random 175 mg/dL (60-115); Magnesium 1.6 mg/dL (1.6-2.6); Phosphorus 2.5 mg/dL (2.7-4.5); Potassium 2.7 mmol/L (3.3-5.1); Sodium 146 mmol/L (135-145)
[2021-01-10 07:00] LABS: Basophils Percent Auto 0.1 % (0-2); Eosinophils Percent Auto 0.5 % (0-4); Hematocrit 25.5 % (37-47); Imm Gran Abs Auto 0.21 X10*3/uL (0.00-0.03); Imm Gran Pct Auto 2.4 % (0.0-0.4); Lymphocytes Absolute Auto 0.4 X10*3/uL (1.2-4.9); Lymphocytes Percent Auto 4.6 % (20-40); MANUAL DIFF FLAG SCAN; Mean Corpuscular HGB Conc 31.4 g/dl (31.0-35.0); Mean Corpuscular Hemoglobin 31.5 pg (27.0-33.0); Mean Corpuscular Volume 100.4 fL (80-98); Monocytes Absolute Auto 0.3 X10*3/uL (0.1-1.2); Monocytes Percent Auto 3.8 % (2-11); Neutrophils Absolute Auto 7.6 X10*3/uL (2.0-8.3); Neutrophils Percent Auto 88.6 % (45-73); PLT CLUMP 1; Red Blood Count 2.54 X10*6/uL (4.20-5.50); Red Cell Distribution Width 17.2 % (11.0-16.0); SCAN SMEAR FLAG 1
[2021-01-10 07:45] LABS: Venous Blood Gas Refer to POC result
[2021-01-10 07:51] LABS: White Blood Count 8.6 X10*3/uL (4.8-10.8)
[2021-01-10 07:53] LABS: SLIDE REVIEW VERIFIED
[2021-01-10] MEDS: 0.9 % Sodium Chloride Flush 3 ML SYRINGE IVFLUSH ×3 (08:14→23:52)
[2021-01-10] MEDS: Chlorhexidine Gluc Oral Rinse 15 ML MOUTHWASH BUCCAL ×3 (08:14→21:58)
[2021-01-10] MEDS: Magnesium Sulfate/H2O 2 GM/50 ML PIGGYBACK IV ×3 (08:16→21:58)
[2021-01-10] MEDS: Potassium Chloride/H20 40 MEQ/100 ML PIGGYBACK 100 MEQ IV ×3 (08:16→21:57)
--- NOTE | 2021-01-10 09:42 | PM.CCPN ---
Subjective Subjective Date of Service: 01/10/21 Interval History: ICU day 14 for cardiac arrest, recurrent pulmonary aspiration, AFib, congestive heart failure. 75-year-old lady with underlying diabetes mellitus, morbid obesity, ANITA noncompliant with CPAP, hypertension, AFib on Eliquis, CAD, anxiety, with recent admission for AFib requiring cardioversion, admitted on December 13 with dyspnea, nausea, and vomiting, treated for hyponatremia and congestive heart failure, also noted to have esophageal stricture, status post EGD on 12/24 with balloon dilatation, further hospital course complicated by acute on chronic hypoxic and hypercapnic respiratory failure, with what appears to have been a bradycardic episode with possible cardiac arrest on 12/27, status post 10 minutes of CPR, intubated during resuscitation, attempting to talk after return of spontaneous circulation, thus did not undergo hypothermia. Extubated on 12/29, requiring right-sided chest tube on 12/30 for right hemothorax, re-intubated on 12/30 for worsening respiratory status, extubated 01/04/2021. Required re-intubation on 01/05/2021 secondary to recurrent aspirations. Right chest tube removed on 01/08/2021. Status post tracheostomy on 01/08/2021. No events overnight. Critical Care Time (minutes): 60 Physical Exam Vital Signs: Vital Signs: Last Vital Signs Temp 102.0 F H 01/10/21 08:00 Pulse 73 01/10/21 08:00 Resp 17 01/10/21 08:00 BP 140/55 H 01/10/21 08:00 Pulse Ox 98 01/10/21 08:00 Oxygen Flow Rate 2 12/26/20 15:00 Body Mass Index 39.2 Const: General: no acute distress, alert and awake Nutritional Appearance: obese Eyes: Sclerae: sclerae normal EOM: EOMs intact bilaterally Neck: Neck: Yes no lymphadenopathy, Yes trachea midline and Yes supple Resp: Auscultation: crackles (Bibasilar) Cardio: Rate: regular rate Rhythm: abnormal rhythm irregularly irregular Heart sounds: no gallops, no murmurs and no rubs GI: Palpation (GI): Soft to palpation and Other GI palpation findings present ( Nontender) Auscultation: normal bowel sounds Extrem: General: No clubbing, No cyanosis and Yes pedal edema (1+ bilateral) Objective Data Labs CBC & Chem 7: 01/10/21 06:11 01/10/21 06:11 Labs: Laboratory Results - last 24 hr 01/09/21 01/09/21 01/09/21 11:58 17:39 18:46 WBC RBC Hgb Hct MCV MCH MCHC RDW Plt Count MPV Immature Gran % (Auto) Neut % (Auto) Lymph % (Auto) [place] % (Auto) Eos % (Auto) Baso % (Auto) Lymph # (Auto) [place] # (Auto) Eos # (Auto) Baso # (Auto) Abs Immat Gran (auto) Absolute Neuts (auto) Absolute Nucleated RBC Nucleated RBC % (auto) Smear Tech's Comments VBG pH VBG pCO2 VBG pO2 VBG HCO3 VBG O2 Saturation VBG Base Excess Sodium 147 H Potassium 3.6 Chloride 109 H Carbon Dioxide 27 Anion Gap 15 BUN 13 Creatinine 0.65 Estim Creat Clear Calc 96.9 Estimated GFR > 60 POC Glucose 95 110 Random Glucose 119 H Calcium 8.4 D Phosphorus Magnesium Albumin 01/09/21 01/10/21 01/10/21 22:42 06:08 06:11 WBC 8.6 RBC 2.54 L Hgb 8.0 L Hct 25.5 L MCV 100.4 H MCH 31.5 MCHC 31.4 RDW 17.2 H Plt Count TNP MPV Not Reportable Immature Gran % (Auto) 2.4 H Neut % (Auto) 88.6 H Lymph % (Auto) 4.6 L [place] % (Auto) 3.8 Eos % (Auto) 0.5 Baso % (Auto) 0.1 Lymph # (Auto) 0.4 L [place] # (Auto) 0.3 Eos # (Auto) 0.0 Baso # (Auto) 0.0 Abs Immat Gran (auto) 0.21 H Absolute Neuts (auto) 7.6 Absolute Nucleated RBC 0.000 Nucleated RBC % (auto) 0.0 Smear Tech's Comments VERIFIED VBG pH 7.57 H VBG pCO2 40 VBG pO2 58 VBG HCO3 37 H VBG O2 Saturation 91.0 VBG Base Excess 13.9 Sodium Potassium Chloride Carbon Dioxide Anion Gap BUN Creatinine Estim Creat Clear Calc Estimated GFR POC Glucose 136 H Random Glucose Calcium Phosphorus Magnesium Albumin 01/10/21 06:11 WBC RBC Hgb Hct MCV MCH MCHC RDW Plt Count MPV Immature Gran % (Auto) Neut % (Auto) Lymph % (Auto) [place] % (Auto) Eos % (Auto) Baso % (Auto) Lymph # (Auto) [place] # (Auto) Eos # (Auto) Baso # (Auto) Abs Immat Gran (auto) Absolute Neuts (auto) Absolute Nucleated RBC Nucleated RBC % (auto) Smear Tech's Comments VBG pH VBG pCO2 VBG pO2 VBG HCO3 VBG O2 Saturation VBG Base Excess Sodium 146 H Potassium 2.7 L D Chloride 102 Carbon Dioxide 30 H Anion Gap 17 BUN 11 Creatinine 0.67 Estim Creat Clear Calc 94.0 Estimated GFR > 60 POC Glucose Random Glucose 175 H D Calcium 8.4 Phosphorus 2.5 L Magnesium 1.6 Albumin 4.3 D Microbiology Microbiology Results: Microbiology 12/30/20 06:29 Blood - Venous Blood Culture - Final No growth after 5 days. 12/30/20 06:20 Blood - Venous Blood Culture - Final No growth after 5 days. 12/31/20 15:59 Sputum - Suctioned Gram Stain - Final 12/31/20 15:59 Sputum - Suctioned Sputum Culture - Final 12/30/20 06:37 Kidney - Jones Catheter Urine Culture - Final No growth. 12/27/20 17:56 Sputum - Suctioned Gram Stain - Final 12/27/20 17:56 Sputum - Suctioned Sputum Culture - Final 12/27/20 17:53 Urine clean catch - Clean Catch Midstream Urine Culture - Final No growth. Progress Note: A&P Assessment and plan (1) Pulmonary aspiration: Status: Acute Assessment and Plan: Assessment: 75-year-old lady with underlying obesity, ANITA, CAD congestive heart failure, AFib, initially admitted with exacerbation of congestive heart failure with hospital course complicated by esophageal stricture status post balloon dilatation, cardiac arrest with return of spontaneous circulation after 10 minutes of CPR, right hemothorax status post chest tube placement, acute on chronic hypoxic and hypercapnic respiratory failure, and recurrent pulmonary aspirations Plan: Neuro: No acute issues. Cardiac: Cardiac arrest status post returned spontaneous circulation after 10 minutes of CPR. Underlying diastolic congestive heart failure. Improving with diuresis. Underlying AFib with tachy-reuben syndrome, now on rate control. Pulmonary: Acute hypoxic and hypercapnic respiratory failure initially intubated during the CPR, also underlying ANITA with obesity hypoventilation, further complicated by right-sided hemothorax. Thoracic surgery service care appreciated. Chest tube removed 01/08/2021. Extubated 01/04/2021. Required re-intubation on 01/05/2021 secondary to recurrent aspiration. Status post tracheostomy on 01/08/2021. General surgery service care appreciated. Continue to titrate off ventilatory support. Renal: Acute kidney injury, resolved. Urinary retention requiring reinsertion of Jones catheter. Endo: No acute issues. Underlying diabetes mellitus. GI: No acute issues. ID: No acute issues Heme/Onc: No acute issues. Psych: No acute issues. Miscellaneous: No acute issues. Prophylaxis: Heparin, ppi Diet: Tube feeds Critical care time spent: 60 minutes (2) CAD (coronary artery disease): Status: Acute (3) Acute and chronic respiratory failure: Status: Acute (4) Sick sinus syndrome: Status: Acute (5) Sleep apnea: Status: Acute (6) PAF (paroxysmal atrial fibrillation): Status: Acute (7) Cardiac arrest: Status: Acute (8) Heart failure with preserved ejection fraction: Status: Acute
[2021-01-10] MEDS: Potassium Phosphate 30 MMOL in 0.9 % Sodium Chloride 500 ML 85 MMOL IV ×2 (10:03→16:05)
[2021-01-10] MEDS: Nystatin Powder 15 GM BOTTLE 1 APPL TOPICAL ×3 (10:07→22:04)
[2021-01-10] MEDS: Furosemide 200 MG in 0.9 % Sodium Chloride 80 ML IVCONT (10:23)
[2021-01-10 11:58] LABS: Glucose, Whole Blood 193 mg/dL (60-115)
[2021-01-10] MEDS: Insulin Lispro 100 UNIT/ML 3 ML VIAL SUBCUT (11:58)
[2021-01-10] MEDS: Enoxaparin Sodium 100 MG/ML SYRINGE SUBCUT (14:14)
--- NOTE | 2021-01-10 14:38 | PC.NURSE ---
RESTRAINTS REMOVED AT 1000. TELESITTER PLACED BEDSIDE. AT AROUND 1345 PT BECAME AGITATED, NOT COOPERATING, REACHING FOR TRACH, PULLED OUT KO FEED TUBE. RESTRAINTS RE-APPLIED AND NOTIFIED.
[2021-01-10] MEDS: dexmedeTOMIDidine HCL/NS 400 MCG/100 ML INFUS..BTL 33.07 MCG IVCONT (17:04)
[2021-01-10 17:54] LABS: Glucose, Whole Blood 158 mg/dL (60-115)
[2021-01-10 18:56] LABS: Anion Gap 14 (12-20); Blood Urea Nitrogen 10 mg/dL (9-16); Carbon Dioxide 37 mmol/L (22-29); Chloride 96 mmol/L (96-108); Creatinine Clr Calc Pharmacy 101.6; Estimated Glomerular Filt Rate > 60; Glucose Random 161 mg/dL (60-115); Magnesium 1.4 mg/dL (1.6-2.6); Potassium 2.4 mmol/L (3.3-5.1); Sodium 145 mmol/L (135-145)
[2021-01-11] VITALS (29 sets, daily range): BP systolic 108–151; BP diastolic 46–73; PULSE 60–97; RESP 14–24; TEMP 37.5–38.2; O2SAT 92–100
[2021-01-11 00:18] LABS: Glucose, Whole Blood 154 mg/dL (60-115)
[2021-01-11] MEDS: Enoxaparin Sodium 100 MG/ML SYRINGE SUBCUT ×2 (01:57→13:22)
[2021-01-11] MEDS: dexmedeTOMIDidine HCL/NS 400 MCG/100 ML INFUS..BTL 22.05 MCG IVCONT ×5 (03:23→20:45)
[2021-01-11 05:43] LABS: VBG Base Excess 28.6 mmol/L; VBG HCO3 53 mmol/L (22-26); VBG pCO2 51 mmHg; VBG pH 7.62 (7.32-7.43); VBG pO2 41 mmHg
[2021-01-11 05:44] LABS: Glucose, Whole Blood 146 mg/dL (60-115)
[2021-01-11 06:01] LABS: Venous Blood Gas Refer to POC result
[2021-01-11 06:14] LABS: Basophils Percent Auto 0.2 % (0-2); Eosinophils Percent Auto 0.1 % (0-4); Hematocrit 26.6 % (37-47); Hemoglobin 8.5 g/dl (12.0-16.0); Imm Gran Abs Auto 0.15 X10*3/uL (0.00-0.03); Imm Gran Pct Auto 1.6 % (0.0-0.4); Lymphocytes Absolute Auto 0.6 X10*3/uL (1.2-4.9); Lymphocytes Percent Auto 6.1 % (20-40); MANUAL DIFF FLAG SCAN; Mean Corpuscular Hemoglobin 31.3 pg (27.0-33.0); Mean Corpuscular Volume 97.8 fL (80-98); Mean Platelet Volume 10.6 fL (9.4-12.3); Monocytes Absolute Auto 0.6 X10*3/uL (0.1-1.2); Monocytes Percent Auto 6.8 % (2-11); Neutrophils Absolute Auto 8.1 X10*3/uL (2.0-8.3); Neutrophils Percent Auto 85.2 % (45-73); Platelet Count 214 X10*3/uL (160-400); Red Blood Count 2.72 X10*6/uL (4.20-5.50); Red Cell Distribution Width 17.2 % (11.0-16.0); SCAN SMEAR FLAG 1; White Blood Count 9.5 X10*3/uL (4.8-10.8)
[2021-01-11 06:43] LABS: SLIDE REVIEW VERIFIED
[2021-01-11 06:49] LABS: Alanine Aminotransferase 15 U/L (0-31); Albumin Level 3.8 g/dL (3.5-5.0); Alkaline Phosphatase 69 U/L (39-117); Anion Gap 11 (12-20); Aspartate Amino Transferase 25 U/L (5-31); Bilirubin Total 1.4 mg/dL (0.0-1.0); Blood Urea Nitrogen 8 mg/dL (9-16); Calcium 7.7 mg/dL (8.4-10.2); Carbon Dioxide 42 mmol/L (22-29); Chloride 92 mmol/L (96-108); Creatinine Clr Calc Pharmacy 112.5; Estimated Glomerular Filt Rate > 60; Glucose Random 141 mg/dL (60-115); Magnesium 1.6 mg/dL (1.6-2.6); Phosphorus 2.4 mg/dL (2.7-4.5); Potassium 2.3 mmol/L (3.3-5.1); Sodium 143 mmol/L (135-145); Total Protein 5.6 g/dL (6.5-8.0)
[2021-01-11] MEDS: Nystatin Powder 15 GM BOTTLE 1 APPL TOPICAL ×3 (07:30→20:36)
[2021-01-11] MEDS: 0.9 % Sodium Chloride Flush 3 ML SYRINGE IVFLUSH ×2 (07:30→15:34)
[2021-01-11] MEDS: Chlorhexidine Gluc Oral Rinse 15 ML MOUTHWASH BUCCAL ×3 (07:30→20:29)
[2021-01-11] MEDS: Furosemide 200 MG in 0.9 % Sodium Chloride 80 ML IVCONT (08:40)
[2021-01-11] MEDS: Magnesium Sulfate/H2O 2 GM/50 ML PIGGYBACK IV ×2 (11:00→20:38)
[2021-01-11] MEDS: Potassium Chloride/H20 40 MEQ/100 ML PIGGYBACK 50 MEQ IV ×3 (11:00→22:42)
--- NOTE | 2021-01-11 11:04 | P.PNCC_ITS ---
Subjective Subjective Date of Service: 01/11/21 Interval History: Mrs. Ch was transferred to ICU on December 27 after a cardiac arrest on [facility] [place]. The patient is a 75 yo woman with PMHx of morbid obesity, ANITA noncompliant w CPAP, hypertension, hyperlipidemia, anxiety, h/o AL, h/o PAFib on Eliquis, and h/o chronic back pain status post surgery. The patient also has a h/o head and neck carcinoma in 2007, treated at that time with chemo/RTx and has been remission since. The patient was hospitalized here on 11/17- with Afib w RVR with acute diastolic CHF and hyponatremia. Echo on 11/19 showed normal LV systolic function, w EF 60-65%. No obvious valvular pathology. RV cavity size was normal with mildly decreased right ventricular systolic function. The IVC was dilated and collapsed less than 50% with inspiration. Mild pulmonary hypertension was present. The Afib was addressed successfully via cardioversion on November 24. She was diuresed with Lasix. 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 A CT of her head and neck revealed no clear lesions. CT chest showed multiple small nodules, and a small right pleural eff. Dr. Calvillo recommended an ENT exam to look for any recurrent lesion. The patient was discharged on 11/26 on flecainide and metoprolol and Eliquis. HISTORY OF PRESENT ILLNESS: The patient was brought back to the ED on December 13 bec of a chief complaint of increased weakness, multiple episodes of nausea and vomiting, and feeling shortness of breath and dyspnea on exertion. She noted that her legs were swollen. She was dx?d with acute hyponatremia, CHF, and fluid overload. She was admitted and started on urea, salt tablet, and fluid restriction. Her initial heart rhythm was sinus bradycardia with first-degree block. Flecainide, Lopressor, And Eliquis were continued. Her BNP was elevated. She was diuresed. At some point, she went back into Afib. With the Lasix, her bicarb started rising. She developed trouble eating and swallowing. She was seen by Dr. Whiting. She was sched for EGD but it was cancelled bec of hyperkalemia, marked metabolic alkalosis, and elevated BNP. Her base excess delfino into the 20?s, and she developed a marked hypercarbia, altho without CO2 narcosis. On 12/23, she was started on Provigil, and nighttime CPAP was changed to BiPAP. Her hypercarbia improved. On 12/24, she underwent EGD and was found to have gastric polyps and an esophageal stricture. She underwent biopsies and balloon dilatation at [facility] [place] [place], with a small tear noted. She?d been getting low dose [place] oxygen the entire hospital stay (was not on oxygen at home). On December 27 the patient had a bradycardic arrest. CPR was started immediately. During the code, she was defib?ed three times, given a total of 3mg epi, 300 mg amiodarone and was intubated. CPR duration was 10 minutes. She was awake and responsive after the code. The patient was transferred to ICU, where she was awake and trying to talk. She was therefore not cooled. Echo was notable for normal LV size and fxn, with no RWMA. RV was enlarged with good function, w large RA. The IVC was large with no insp collapse. CT pulmonary angiogram showed no pulmonary emboli; the main pulmonary artery was normal in caliber. Right ventricle was enlarged with RV:LV cavity ratio 1.0. She had large bilateral pleural effusions with compressive atelectasis, and rib fx?s 2? vigorous CPR. Anticoagulation was held. She was extubated to BiPAP on December 29. On December 30, a right pleural drainage catheter was placed and drained 2500 cc of bloody fluid (probably hemothorax 2? CPR). She had to be reintubated though bec of hypercarbia. Most of the fluid drained from her right chest and the lung reexpanded nicely. The patient was extubated again on 01/04, but required reintubation the next day 2? aspiration. The right pleural drainage tube was removed on January 08 and the patient underwent open tracheostomy by Dr. Castro that same day. I?m told that a fenestrated tracheostomy tube was placed. On 01/09, a venous duplex scan of her left UE (done bec of generalized swelling of the arm) showed thrombosis of one of her left brachial veins. She was put on full dose Lovenox. Today, she is fully awake and appears mostly appropriately interactive. She is still on AC on the ventilator and has a significant leak, partly from the trach site and partly thru her mouth. She?s getting TVs? in the high 200s. I switc hed her over to PSV 10cm/25%/+5, and she?s getting 270-400 cc tidal vols, with RR about 20, Sat 95-96%. ETCO2 38. CVBG this morning showed 7.62/51/+28, on the Lasix drip at 2mg/hr. HR 70s-90s, afib. BP about 120/50. Running low grade temps. No visible JVD. Trach site has purulent drainage; I changed the trach dressing. Chest has light rhonchi bilat, w normal exp phase. Irreg rate and rhythm, with normal-sounding S1 and S2, with no murmur or gallops. The abdomen is benign. She has 2+ pitting edema, possibly very light anasarca. Neuro exam is nonfocal. LABORATORY DATA: As below. Notably, potassium is 2.3, bicarb is 42, BUN and creatinine are 8/0.5, [place] is 2.4, magnesium is 1.6. T bili is up to 1.4. Albumin is 3.8. IMPRESSION: 75 year-old lady with underlying obesity, ANITA, CAD congestive heart failure, AFib. Initially admitted with hyponatremia and CHF. Hospital course complicated by esophageal stricture status post balloon dilatation, then cardiac arrest with ROSC after 10 minutes of CPR, with full mental status recovery, right hemothorax (2? broken ribs during CPR) status post chest tube drainage, then acute on chronic hypoxic and hypercapnic respiratory failure, and recurrent pulmonary aspirations, leading to reintubation x 2, therefore tracheostomy placement on January 08. 1. Underlying obesity and ANITA. 2. Underlying cor pulmonale and right heart failure on that basis, along with diastolic congestive heart failure. Continuing to diurese. 3. Underlying atrial fibrillation. 4. Status post cardiac arrest. Etiology unclear. Possibly respiratory in origi n. Seems to have made a complete recovery despite 10 minutes CPR time. 5. Hypoxemic and hypercarbic respiratory failure secondary to ANITA and pulmonary aspiration. Status post tracheostomy. She looks like she will come off ventilatory support within the next day or two. 6. Atrial fibrillation. Rate controlled with metoprolol. Need to address anticoagulation. 7. Acute kidney injury. Resolved. 8. Diabetes mellitus. On sliding scale insulin. 9. GI: Needs a PEG. Discussed with Dr. Castro today. He will try to get it on the schedule for tomorrow. 10. Severe hyperkalemia. Secondary to diuresis. Replete and follow. 11. Severe metabolic alkalosis. Secondary to diuresis. Started on Diamox. 12. Neuro: Seems to have made complete neurologic recovery, although I cannot rule out the possibility that recurrent aspiration is possibly secondary to residual partial neurologic deficit. 13. History of head and neck cancer. Ongoing workup as described above. 14. Nutrition. PEG tomorrow, then tube feeds. I spoke with her daughter at some length about this and Dr. Castro will get consent. Critical care time (including extended chart review, hosp course summary, d/w Dr. Hamilton and Dr. Lechuga): 2 hrs. Critical Care Time (minutes): 120 Physical Exam Vital Signs: Vital Signs: Last Vital Signs Temp 99.9 F 01/11/21 10:55 Pulse 78 01/11/21 10:55 Resp 19 01/11/21 10:55 BP 129/46 L 01/11/21 10:55 Pulse Ox 95 01/11/21 10:55 Oxygen Flow Rate 2 12/26/20 15:00 Body Mass Index 39.2 Objective Data Labs CBC & Chem 7: 01/11/21 05:36 01/11/21 19:09 Labs: Laboratory Results - last 24 hr 01/10/21 01/10/21 01/10/21 11:53 17:51 18:06 WBC RBC Hgb Hct MCV MCH MCHC RDW Plt Count MPV Immature Gran % (Auto) Neut % (Auto) Lymph % (Auto) [place] % (Auto) Eos % (Auto) Baso % (Auto) Lymph # (Auto) [place] # (Auto) Eos # (Auto) Baso # (Auto) Abs Immat Gran (auto) Absolute Neuts (auto) Absolute Nucleated RBC Nucleated RBC % (auto) Smear Tech's Comments VBG pH VBG pCO2 VBG pO2 VBG HCO3 VBG O2 Saturation VBG Base Excess Sodium 145 Potassium 2.4 L* Chloride 96 Carbon Dioxide 37 H Anion Gap 14 BUN 10 Creatinine 0.62 Estim Creat Clear Calc 101.6 Estimated GFR > 60 POC Glucose 193 H 158 H Random Glucose 161 H Calcium 8.0 L Phosphorus Magnesium 1.4 L* Total Bilirubin AST ALT Alkaline Phosphatase Total Protein Albumin 01/10/21 01/11/21 01/11/21 23:47 05:36 05:36 WBC 9.5 RBC 2.72 L Hgb 8.5 L Hct 26.6 L MCV 97.8 MCH 31.3 MCHC 32.0 RDW 17.2 H Plt Count 214 MPV 10.6 Immature Gran % (Auto) 1.6 H Neut % (Auto) 85.2 H Lymph % (Auto) 6.1 L [place] % (Auto) 6.8 Eos % (Auto) 0.1 Baso % (Auto) 0.2 Lymph # (Auto) 0.6 L [place] # (Auto) 0.6 Eos # (Auto) 0.0 Baso # (Auto) 0.0 Abs Immat Gran (auto) 0.15 H Absolute Neuts (auto) 8.1 Absolute Nucleated RBC 0.000 Nucleated RBC % (auto) 0.0 Smear Tech's Comments VERIFIED VBG pH VBG pCO2 VBG pO2 VBG HCO3 VBG O2 Saturation VBG Base Excess Sodium 143 Potassium 2.3 L* Chloride 92 L Carbon Dioxide 42 H* Anion Gap 11 L BUN 8 L Creatinine 0.56 Estim Creat Clear Calc 112.5 Estimated GFR > 60 POC Glucose 154 H Random Glucose 141 H Calcium 7.7 L Phosphorus 2.4 L Magnesium 1.6 Total Bilirubin 1.4 H AST 25 ALT 15 Alkaline Phosphatase 69 D Total Protein 5.6 L Albumin 3.8 01/11/21 01/11/21 05:36 05:41 WBC RBC Hgb Hct MCV MCH MCHC RDW Plt Count MPV Immature Gran % (Auto) Neut % (Auto) Lymph % (Auto) [place] % (Auto) Eos % (Auto) Baso % (Auto) Lymph # (Auto) [place] # (Auto) Eos # (Auto) Baso # (Auto) Abs Immat Gran (auto) Absolute Neuts (auto) Absolute Nucleated RBC Nucleated RBC % (auto) Smear Tech's Comments VBG pH 7.62 H* VBG pCO2 51 VBG pO2 41 VBG HCO3 53 H VBG O2 Saturation 71.0 VBG Base Excess 28.6 Sodium Potassium Chloride Carbon Dioxide Anion Gap BUN Creatinine Estim Creat Clear Calc Estimated GFR POC Glucose 146 H Random Glucose Calcium Phosphorus Magnesium Total Bilirubin AST ALT Alkaline Phosphatase Total Protein Albumin Microbiology Microbiology Results: Microbiology 01/10/21 06:11 Blood - Venous Blood Culture - Preliminary No growth after 24 hours. 01/10/21 06:11 Blood - Venous Blood Culture - Preliminary No growth after 24 hours. 12/30/20 06:29 Blood - Venous Blood Culture - Final No growth after 5 days. 12/30/20 06:20 Blood - Venous Blood Culture - Final No growth after 5 days. 12/31/20 15:59 Sputum - Suctioned Gram Stain - Final 12/31/20 15:59 Sputum - Suctioned Sputum Culture - Final 12/30/20 06:37 Kidney - Jones Catheter Urine Culture - Final No growth. 12/27/20 17:56 Sputum - Suctioned Gram Stain - Final 12/27/20 17:56 Sputum - Suctioned Sputum Culture - Final 12/27/20 17:53 Urine clean catch - Clean Catch Midstream Urine Culture - Final No growth. Critical Care Time Critical Care Time (minutes): 120
[2021-01-11 11:13] LABS: Osmolality Urine 529 mosm/kg (373-1093)
[2021-01-11 11:38] LABS: Glucose, Whole Blood 147 mg/dL (60-115)
[2021-01-11] MEDS: Alteplase Cath Clear 2 MG VIAL INTRACATH ×3 (11:42→13:03)
[2021-01-11] MEDS: acetaZOLAMIDE sodium 500 MG VIAL IVPUSH ×2 (11:42→20:29)
--- NOTE | 2021-01-11 13:44 | PC.NURSE ---
CATH FLOW ADMINISTERED TO ALL 3 LUMENS ON TLC. POSITIVE EFFECT NOTED TO ALL LUMENS.
--- NOTE | 2021-01-11 14:19 | PM.PNNEP ---
Subjective Subjective Date of Service: 01/11/21 Interval history: ICU day 14 for cardiac arrest, recurrent pulmonary aspiration, AFib, congestive heart failure. Last seen by Renal 12/27/20 for asotance in manatgement of dysnatremai and renal fiualure bit resolved but now has developed signif hypoK on lasix drip with ongoing heavy dfiuresis and incr HCO3 d/t doiiuresis--5 Liter net neg past 24 hrs. On vent via trach No NGT Got 120 meq KCl yesterday and still am K level 2.3 No events overnight. Physical Exam Vital Signs: Vital Signs: Last Vital Signs Temp 99.7 F 01/11/21 14:00 Pulse 72 01/11/21 14:00 Resp 16 01/11/21 14:00 BP 108/56 L 01/11/21 14:00 Pulse Ox 96 01/11/21 14:00 Oxygen Flow Rate 2 12/26/20 15:00 Body Mass Index 39.2 Const: General: cooperative, no acute distress, alert and awake; No acute distress HENMT: Head: Yes normocephalic and Yes atraumatic Eyes: Other: Intubated. Sedated Neck: Neck: Yes supple Resp: Other: Crackled left base Auscultation: clear to auscultation bilaterally and diminished lung sounds Cardio: Jugular venous distension: no JVD Palpation: no palpable S3 and no palpable S4 Rate: regular rate Rhythm: regular rhythm Heart sounds: S1 normal heart sound present, S2 normal heart sound present, no murmurs and no rubs GI: Inspection: Yes normal to inspection Palpation (GI): Soft to palpation and nontender Auscultation: normal bowel sounds : Other: wright in place Neuro: General: moves all extremities and no focal motor deficits Motor exam (neuro): No Asterixis during motor activity present Extrem: Other: 1+ LE edema bilaterally General: Yes edema Objective Data Labs CBC & Chem 7: 01/11/21 05:36 01/11/21 05:36 Labs: Laboratory Results - last 24 hr 01/10/21 01/10/21 01/10/21 17:51 18:06 23:47 WBC RBC Hgb Hct MCV MCH MCHC RDW Plt Count MPV Immature Gran % (Auto) Neut % (Auto) Lymph % (Auto) [place] % (Auto) Eos % (Auto) Baso % (Auto) Lymph # (Auto) [place] # (Auto) Eos # (Auto) Baso # (Auto) Abs Immat Gran (auto) Absolute Neuts (auto) Absolute Nucleated RBC Nucleated RBC % (auto) Smear Tech's Comments VBG pH VBG pCO2 VBG pO2 VBG HCO3 VBG O2 Saturation VBG Base Excess Sodium 145 Potassium 2.4 L* Chloride 96 Carbon Dioxide 37 H Anion Gap 14 BUN 10 Creatinine 0.62 Estim Creat Clear Calc 101.6 Estimated GFR > 60 POC Glucose 158 H 154 H Random Glucose 161 H Calcium 8.0 L Phosphorus Magnesium 1.4 L* Total Bilirubin AST ALT Alkaline Phosphatase Total Protein Albumin Urine Osmolality Ur Random Sodium Ur Random Potassium Ur Random Chloride 01/11/21 01/11/21 01/11/21 05:36 05:36 05:36 WBC 9.5 RBC 2.72 L Hgb 8.5 L Hct 26.6 L MCV 97.8 MCH 31.3 MCHC 32.0 RDW 17.2 H Plt Count 214 MPV 10.6 Immature Gran % (Auto) 1.6 H Neut % (Auto) 85.2 H Lymph % (Auto) 6.1 L [place] % (Auto) 6.8 Eos % (Auto) 0.1 Baso % (Auto) 0.2 Lymph # (Auto) 0.6 L [place] # (Auto) 0.6 Eos # (Auto) 0.0 Baso # (Auto) 0.0 Abs Immat Gran (auto) 0.15 H Absolute Neuts (auto) 8.1 Absolute Nucleated RBC 0.000 Nucleated RBC % (auto) 0.0 Smear Tech's Comments VERIFIED VBG pH 7.62 H* VBG pCO2 51 VBG pO2 41 VBG HCO3 53 H VBG O2 Saturation 71.0 VBG Base Excess 28.6 Sodium 143 Potassium 2.3 L* Chloride 92 L Carbon Dioxide 42 H* Anion Gap 11 L BUN 8 L Creatinine 0.56 Estim Creat Clear Calc 112.5 Estimated GFR > 60 POC Glucose Random Glucose 141 H Calcium 7.7 L Phosphorus 2.4 L Magnesium 1.6 Total Bilirubin 1.4 H AST 25 ALT 15 Alkaline Phosphatase 69 D Total Protein 5.6 L Albumin 3.8 Urine Osmolality Ur Random Sodium Ur Random Potassium Ur Random Chloride 01/11/21 01/11/21 01/11/21 05:41 10:26 10:26 WBC RBC Hgb Hct MCV MCH MCHC RDW Plt Count MPV Immature Gran % (Auto) Neut % (Auto) Lymph % (Auto) [place] % (Auto) Eos % (Auto) Baso % (Auto) Lymph # (Auto) [place] # (Auto) Eos # (Auto) Baso # (Auto) Abs Immat Gran (auto) Absolute Neuts (auto) Absolute Nucleated RBC Nucleated RBC % (auto) Smear Tech's Comments VBG pH VBG pCO2 VBG pO2 VBG HCO3 VBG O2 Saturation VBG Base Excess Sodium Potassium Chloride Carbon Dioxide Anion Gap BUN Creatinine Estim Creat Clear Calc Estimated GFR POC Glucose 146 H Random Glucose Calcium Phosphorus Magnesium Total Bilirubin AST ALT Alkaline Phosphatase Total Protein Albumin Urine Osmolality 529 Ur Random Sodium 155.0 Ur Random Potassium 48.0 Ur Random Chloride 175.0 01/11/21 11:35 WBC RBC Hgb Hct MCV MCH MCHC RDW Plt Count MPV Immature Gran % (Auto) Neut % (Auto) Lymph % (Auto) [place] % (Auto) Eos % (Auto) Baso % (Auto) Lymph # (Auto) [place] # (Auto) Eos # (Auto) Baso # (Auto) Abs Immat Gran (auto) Absolute Neuts (auto) Absolute Nucleated RBC Nucleated RBC % (auto) Smear Tech's Comments VBG pH VBG pCO2 VBG pO2 VBG HCO3 VBG O2 Saturation VBG Base Excess Sodium Potassium Chloride Carbon Dioxide Anion Gap BUN Creatinine Estim Creat Clear Calc Estimated GFR POC Glucose 147 H Random Glucose Calcium Phosphorus Magnesium Total Bilirubin AST ALT Alkaline Phosphatase Total Protein Albumin Urine Osmolality Ur Random Sodium Ur Random Potassium Ur Random Chloride Microbiology Microbiology Results: Microbiology 01/10/21 06:11 Blood - Venous Blood Culture - Preliminary No growth after 24 hours. 01/10/21 06:11 Blood - Venous Blood Culture - Preliminary No growth after 24 hours. 12/30/20 06:29 Blood - Venous Blood Culture - Final No growth after 5 days. 12/30/20 06:20 Blood - Venous Blood Culture - Final No growth after 5 days. 12/31/20 15:59 Sputum - Suctioned Gram Stain - Final 12/31/20 15:59 Sputum - Suctioned Sputum Culture - Final 12/30/20 06:37 Kidney - Wright Catheter Urine Culture - Final No growth. 12/27/20 17:56 Sputum - Suctioned Gram Stain - Final 12/27/20 17:56 Sputum - Suctioned Sputum Culture - Final 12/27/20 17:53 Urine clean catch - Clean Catch Midstream Urine Culture - Final No growth. Assessment & Plan Assessment and plan (1) Acute hyponatremia: Status: Acute Assessment and Plan: 1) HypoK: d/t kaluiresis from ongoing loop diuretic as no diarrhea per RN ( another potential source of stool and Urine K losses) 2. Incr HCO3 with incr Ph c/w contraction alkalosis from diuresis 3) Hypervol: much improved per RN; now on a.c. for LUE DVT REC: cont k replacement as need vi IV and once NGT replaced viua NGT; consider use of aldactone and diamox for treatment of hypoK and elevated HCO3 respectively Will follow with ICU team Time Spent With Patient Time: Total time spent is greater than 50% in coordination of care (as documented) at patient's floor/unit and/or counseling patient: Procedures Date of Service Date of Service: 01/11/21
--- NOTE | 2021-01-11 14:44 | PM.EVENT ---
Event Note Date of Service: 01/11/21 Event Note: No events over the weekend Doing better on tracheostomy Still requiring ventilatory support Looks more comfortable Trach site clean and dry Continue care as per the ICU team
[2021-01-11 18:07] LABS: Glucose, Whole Blood 120 mg/dL (60-115)
[2021-01-11 19:51] LABS: Magnesium 1.8 mg/dL (1.6-2.6); Phosphorus 3.4 mg/dL (2.7-4.5)
[2021-01-11 20:08] LABS: Anion Gap 12 (12-20); Carbon Dioxide 39 mmol/L (22-29); Chloride 93 mmol/L (96-108); Potassium 2.5 mmol/L (3.3-5.1); Sodium 141 mmol/L (135-145)
[2021-01-12] VITALS (32 sets, daily range): BP systolic 91–144; BP diastolic 39–82; PULSE 66–994; RESP 17–28; TEMP 37.5–38.2; O2SAT 87–100
[2021-01-12] MEDS: Enoxaparin Sodium 100 MG/ML SYRINGE SUBCUT ×2 (01:07→13:28)
[2021-01-12] MEDS: dexmedeTOMIDidine HCL/NS 400 MCG/100 ML INFUS..BTL 22.05 MCG IVCONT ×2 (01:10→05:40)
[2021-01-12 01:20] LABS: Potassium 3.1 mmol/L (3.3-5.1)
[2021-01-12] MEDS: Potassium Chloride/H20 40 MEQ/100 ML PIGGYBACK 50 MEQ IV ×4 (02:20→20:29)
[2021-01-12 04:04] LABS: Glucose, Whole Blood 117 mg/dL (60-115)
[2021-01-12] MEDS: acetaZOLAMIDE sodium 500 MG VIAL IVPUSH ×4 (04:32→21:03)
[2021-01-12 05:49] LABS: VBG HCO3 36 mmol/L (22-26); VBG pCO2 44 mmHg; VBG pH 7.51 (7.32-7.43); VBG pO2 41 mmHg
[2021-01-12 05:53] LABS: Hematocrit 28.1 % (37-47); Hemoglobin 8.8 g/dl (12.0-16.0); Mean Corpuscular HGB Conc 31.3 g/dl (31.0-35.0); Mean Corpuscular Hemoglobin 31.2 pg (27.0-33.0); Mean Corpuscular Volume 99.6 fL (80-98); Mean Platelet Volume 10.1 fL (9.4-12.3); Platelet Count 225 X10*3/uL (160-400); Red Blood Count 2.82 X10*6/uL (4.20-5.50); Red Cell Distribution Width 16.9 % (11.0-16.0); White Blood Count 9.4 X10*3/uL (4.8-10.8)
[2021-01-12 05:54] LABS: Glucose, Whole Blood 114 mg/dL (60-115)
[2021-01-12 06:17] LABS: Venous Blood Gas Refer to POC result
[2021-01-12 06:20] LABS: Alanine Aminotransferase 26 U/L (0-31); Albumin Level 3.6 g/dL (3.5-5.0); Alkaline Phosphatase 74 U/L (39-117); Anion Gap 10 (12-20); Aspartate Amino Transferase 42 U/L (5-31); Bilirubin Total 1.2 mg/dL (0.0-1.0); Blood Urea Nitrogen 12 mg/dL (9-16); Calcium 7.9 mg/dL (8.4-10.2); Carbon Dioxide 34 mmol/L (22-29); Chloride 99 mmol/L (96-108); Estimated Glomerular Filt Rate > 60; Glucose Random 120 mg/dL (60-115); Magnesium 1.9 mg/dL (1.6-2.6); Phosphorus 2.5 mg/dL (2.7-4.5); Potassium 3.2 mmol/L (3.3-5.1); Sodium 140 mmol/L (135-145); Total Protein 5.3 g/dL (6.5-8.0)
[2021-01-12 06:21] LABS: B Type Natriuretic Peptide 790 pg/mL (<100)
--- NOTE | 2021-01-12 08:52 | MHC.CM.PN ---
pt remains in the icu on mech vent via trach which was placed on 01/08/21. pt is to get PEG today. dc plan is for patient to go [facility] when medically stable. ref's have been made. cm to cont. to follow.
[2021-01-12] MEDS: Furosemide 200 MG in 0.9 % Sodium Chloride 80 ML IVCONT (10:05)
[2021-01-12] MEDS: Chlorhexidine Gluc Oral Rinse 15 ML MOUTHWASH BUCCAL ×3 (10:06→20:29)
[2021-01-12] MEDS: 0.9 % Sodium Chloride Flush 3 ML SYRINGE IVFLUSH (10:06)
[2021-01-12] MEDS: Nystatin Powder 15 GM BOTTLE 1 APPL TOPICAL ×3 (10:06→20:33)
[2021-01-12] MEDS: fentaNYL citrate/PF 100 MCG/2 ML VIAL 50 MCG IVPUSH ×3 (10:12→21:06)
--- NOTE | 2021-01-12 10:34 | MHC.CLN ---
F/U PT WITH TRACH PENDING PEG PLACEMENT TODAY IF TF NEEDED; RECOMMEND JEVITY AT MAX GOAL RATE 55CC/HR WITH 120CC FREE WATER FLUSHES Q SHIFT TO PROVIDE 1399KCALS (24KCALS/KG BASED ON IBW), 58G PROTEIN (.98G/KG), 1462CC TOTAL WATER FROM FORMULA AND FLUSHES (25CC/KG) BASED ON IBW START TF AT 20CC/HR AND INCREASE BY 10CCQ 4 HOURS UNTIL MAX GOAL IS ACHIEVED MONITOR TOLERANCE, RESIDUALS AND LYTES FOLLOWING
[2021-01-12] MEDS: Metoprolol Tartrate 5 MG/5 ML VIAL IVPUSH ×2 (11:06→13:28)
[2021-01-12] MEDS: Magnesium Sulfate/D5W 1 GM/100 ML PIGGYBACK IV (11:07)
[2021-01-12 11:08] LABS: Glucose Urine UA NEG (NEG); Leukocyte Esterase Urine NEG (NEG); Nitrite Urine NEG (NEG); PH 7.5 (5.0-8.0); Urine Blood TRACE (NEG); Urine Ketones NEG (NEG); Urine Protein 2+ MG/DL (NEG-TRACE)
[2021-01-12 11:09] LABS: Appearance Urine HAZY; Color Urine YELLOW
[2021-01-12 11:20] LABS: Bacteria Urine 1+ /LPF; Mucus Urine 1+ /LPF; WBC Urine 0-2 /HPF (0-4)
[2021-01-12 11:58] LABS: Glucose, Whole Blood 122 mg/dL (60-115)
--- NOTE | 2021-01-12 12:05 | P.PNCC_ITS ---
Subjective Subjective Date of Service: 01/12/21 Interval History: Mrs. Ch was transferred to ICU on December 27 after a cardiac arrest on [facility]. The patient is a 75 yo woman with PMHx of morbid obesity, ANITA noncompliant w CPAP, hypertension, hyperlipidemia, anxiety, h/o ND, h/o PAFib on Eliquis, and h/o chronic back pain status post surgery. The patient also has a h/o head and neck carcinoma in 2007, treated at that time with chemo/RTx and has been remission since. The patient was hospitalized here on 11/17- with Afib w RVR with acute diastolic CHF and hyponatremia. Echo on 11/19 showed normal LV systolic function, w EF 60-65%. No obvious valvular pathology. RV cavity size was normal with mildly decreased right ventricular systolic function. The IVC was dilated and collapsed less than 50% with inspiration. Mild pulmonary hypertension was present. The Afib was addressed successfully via cardioversion on November 24. She was diuresed with Lasix. 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 A CT of her head and neck revealed no clear lesions. CT chest showed multiple small nodules, and a small right pleural eff. Dr. Calvillo recommended an ENT exam to look for any recurrent lesion. The patient was discharged on 11/26 on flecainide and metoprolol and Eliquis. HISTORY OF PRESENT ILLNESS: The patient was readmitted on December 13 with hyponatremia, CHF, and fluid overload. She was in sinus rhythm. She was managed medically and Flecainide, Lopressor, And Eliquis were continued. At some point, she went back into Afib. With the Lasix, her bicarb started rising. She developed trouble eating and swallowing. She was seen by Dr. Whiting. Her base excess delfino into the 20?s, and she developed a marked hypercarbia, altho without CO2 narcosis. On 12/23, she was started on Provigil, and nighttime CPAP was changed to BiPAP. Her hypercarbia improved. On 12/24, she underwent EGD and was found to have gastric polyps and an esophageal stricture. She underwent biopsies and balloon dilatation at [facility], wit h a small tear noted. She?d been getting low dose [place] oxygen the entire hospital stay (was not on oxygen at home). On December 27 the patient had a bradycardic arrest. CPR was started immediately. She was defib?ed three times, got three rounds of epi, and was intubated. CPR duration was 10 minutes. She was awake and responsive after the code. The patient was transferred to ICU, where she was awake and trying to talk. She was therefore not cooled. Echo was notable for normal LV size and fxn, with no RWMA. RV was enlarged with good function, w large RA. The IVC was large with no insp collapse. CT pulmonary angiogram showed no pulmonary emboli. RV was enlarged with RV:LV cavity ratio 1.0. She had large bilateral pleural effusions with compressive atelectasis, and rib fx?s 2? vigorous CPR. Anticoagulation was held. She was extubated to BiPAP on December 29. On December 30, a right pleural drainage catheter was placed and drained 2500 cc of bloody fluid (probably hemothorax 2? CPR). She had to be reintubated bec of hypercarbia. Her right lung reexpanded nicely after the fluid drainage. The patient was extubated again on 01/04, but required reintubation the next day 2? aspiration. The right pleural drainage tube was removed on January 08 and the patient underwent open tracheostomy by Dr. Castro that same day. A fenestrated tracheostomy tube was placed. On 01/09, a venous duplex scan of her left UE (done bec of generalized swelling of the arm) showed thrombosis of one of her left brachial veins. She was put on full dose Lovenox. Yesterday she was switched over to PSV and today went onto trach collar with no problem. On 28% trach collar, RR was 20, w Sat 99%. We tried a room air trach collar but her Sat dropped to 87% and she developed abdom paradox. She?s fully awake and seems appropriately interactive. CVBG this morning showed 7.51/44/+12, on the Lasix drip at 2mg/hr, along with high dose Diamox. HR 100, afib. BP 103/49. Running low grade temps since 01/09. No visible JVD. Trach site has purulent drainage; I changed the trach dressing. Chest has very light low pitched rhonchi bilat, w normal exp phase; sounds better than yesterday. Irreg rate and rhythm, with normal-sounding S1 and S2, with no murmur or gallops. The abdomen is benign. She has 2+ pitting edema, possibly very light anasarca. Neuro exam is nonfocal. LABORATORY DATA: As below. Notably, potassium is up to 3.2 after about 200 mEq yesterday. Bicarb is down to 34, BUN and creatinine are 12/0.6, phos is 2.5, magnesium is 1.9. T bili is down to 1.2. Albumin is 3.6. MICROBIOLOGY: UA this morning is negative. Blood cultures from January 10 are negative. Sputum culture from this morning is pending. IMPRESSION: 1. Underlying obesity and ANITA. 2. Underlying cor pulmonale and right heart failure on that basis. 3. CAD and Diastolic congestive heart failure. Continuing to diurese. 4. Underlying atrial fibrillation. Rate is now controlled with metoprolol. She is currently fully anticoagulated because of a left upper extremity DVT. 5. Status post cardiac arrest. Etiology unclear. Possibly respiratory in origin. Seems to have made a complete recovery despite 10 minutes CPR time. 6. Hypoxemic and hypercarbic respiratory failure secondary to ANITA and pulmonary aspiration. Status post tracheostomy. She?s borderline on trach collar. Might need nocturnal ventilation for a couple more days. 7. Hemo thorax. Presumably secondary to broken ribs during CPR. Status post drainage. 8. Acute kidney injury. Resolved. 9. Diabetes mellitus. On sliding scale insulin. 10. GI: Esophageal stricture, status post balloon dilatation by Dr. Rainey. Needs a PEG. Discussed with Dr. Castro. Plan for OR today. 11. Hyponatremia. Resolved. 12. Severe hyperkalemia. Secondary to diuresis. Replete and follow. 13. Severe metabolic alkalosis. Secondary to diuresis. Much improved on Diamox. Probably needs another few doses. 14. Neuro: Seems to have made complete neurologic recovery (although I cannot rule out the possibility that recurrent aspiration is possibly secondary to residual partial neurologic deficit). 15. History of head and neck cancer. Ongoing consideration as described above. 16. Nutrition. PEG today, then start tube feeds. Critical care time): 60 min. Critical Care Time (minutes): 60 Physical Exam Vital Signs: Vital Signs: Last Vital Signs Temp 100.4 F 01/12/21 11:00 Pulse 156 H 01/12/21 11:06 Resp 18 01/12/21 10:12 BP 102/69 01/12/21 11:06 Pulse Ox 99 01/12/21 11:00 Oxygen Flow Rate 2 12/26/20 15:00 Body Mass Index 39.2 Objective Data Labs CBC & Chem 7: 01/12/21 05:35 01/12/21 05:35 Labs: Laboratory Results - last 24 hr 01/11/21 01/11/21 01/11/21 18:04 19:07 19:09 WBC RBC Hgb Hct MCV MCH MCHC RDW Plt Count MPV Absolute Nucleated RBC Nucleated RBC % (auto) VBG pH VBG pCO2 VBG pO2 VBG HCO3 VBG O2 Saturation VBG Base Excess Sodium 141 Potassium 2.5 L* Chloride 93 L Carbon Dioxide 39 H Anion Gap 12 BUN Creatinine Estim Creat Clear Calc Estimated GFR POC Glucose 120 H Random Glucose Calcium Phosphorus 3.4 Magnesium 1.8 Total Bilirubin AST ALT Alkaline Phosphatase B-Natriuretic Peptide Total Protein Albumin Urine Color Urine Appearance Urine pH Ur Specific [place] Urine Protein Urine Glucose (UA) Urine Ketones Urine Blood Urine Nitrite Ur Leukocyte Esterase Urine RBC Urine WBC Ur Squamous Epith Cells Urine Bacteria Urine Mucus 01/11/21 01/12/21 01/12/21 23:20 00:50 05:35 WBC RBC Hgb Hct MCV MCH MCHC RDW Plt Count MPV Absolute Nucleated RBC Nucleated RBC % (auto) VBG pH VBG pCO2 VBG pO2 VBG HCO3 VBG O2 Saturation VBG Base Excess Sodium 140 Potassium 3.1 L D 3.2 L Chloride 99 Carbon Dioxide 34 H Anion Gap 10 L BUN 12 Creatinine 0.60 Estim Creat Clear Calc 105.0 Estimated GFR > 60 POC Glucose 117 H Random Glucose 120 H Calcium 7.9 L Phosphorus 2.5 L Magnesium 1.9 Total Bilirubin 1.2 H AST 42 H D ALT 26 Alkaline Phosphatase 74 B-Natriuretic Peptide Total Protein 5.3 L Albumin 3.6 Urine Color Urine Appearance Urine pH Ur Specific [place] Urine Protein Urine Glucose (UA) Urine Ketones Urine Blood Urine Nitrite Ur Leukocyte Esterase Urine RBC Urine WBC Ur Squamous Epith Cells Urine Bacteria Urine Mucus 01/12/21 01/12/21 01/12/21 05:35 05:35 05:42 WBC 9.4 RBC 2.82 L Hgb 8.8 L Hct 28.1 L MCV 99.6 H MCH 31.2 MCHC 31.3 RDW 16.9 H Plt Count 225 MPV 10.1 Absolute Nucleated RBC 0.000 Nucleated RBC % (auto) 0.0 VBG pH 7.51 H VBG pCO2 44 VBG pO2 41 VBG HCO3 36 H VBG O2 Saturation 67.0 VBG Base Excess 12.0 Sodium Potassium Chloride Carbon Dioxide Anion Gap BUN Creatinine Estim Creat Clear Calc Estimated GFR POC Glucose Random Glucose Calcium Phosphorus Magnesium Total Bilirubin AST ALT Alkaline Phosphatase B-Natriuretic Peptide 790 H Total Protein Albumin Urine Color Urine Appearance Urine pH Ur Specific [place] Urine Protein Urine Glucose (UA) Urine Ketones Urine Blood Urine Nitrite Ur Leukocyte Esterase Urine RBC Urine WBC Ur Squamous Epith Cells Urine Bacteria Urine Mucus 01/12/21 01/12/21 01/12/21 05:49 10:54 11:54 WBC RBC Hgb Hct MCV MCH MCHC RDW Plt Count MPV Absolute Nucleated RBC Nucleated RBC % (auto) VBG pH VBG pCO2 VBG pO2 VBG HCO3 VBG O2 Saturation VBG Base Excess Sodium Potassium Chloride Carbon Dioxide Anion Gap BUN Creatinine Estim Creat Clear Calc Estimated GFR POC Glucose 114 122 H Random Glucose Calcium Phosphorus Magnesium Total Bilirubin AST ALT Alkaline Phosphatase B-Natriuretic Peptide Total Protein Albumin Urine Color YELLOW Urine Appearance HAZY Urine pH 7.5 Ur Specific [place] 1.010 Urine Protein 2+ H Urine Glucose (UA) NEG Urine Ketones NEG Urine Blood TRACE Urine Nitrite NEG Ur Leukocyte Esterase NEG Urine RBC 15-29 H Urine WBC 0-2 Ur Squamous Epith Cells NONE Urine Bacteria 1+ Urine Mucus 1+ Microbiology Microbiology Results: Microbiology 01/10/21 06:11 Blood - Venous Blood Culture - Preliminary No growth after 48 hours. 01/10/21 06:11 Blood - Venous Blood Culture - Preliminary No growth after 48 hours. 12/30/20 06:29 Blood - Venous Blood Culture - Final No growth after 5 days. 12/30/20 06:20 Blood - Venous Blood Culture - Final No growth after 5 days. 12/31/20 15:59 Sputum - Suctioned Gram Stain - Final 12/31/20 15:59 Sputum - Suctioned Sputum Culture - Final 12/30/20 06:37 Kidney - Jones Catheter Urine Culture - Final No growth. 12/27/20 17:56 Sputum - Suctioned Gram Stain - Final 12/27/20 17:56 Sputum - Suctioned Sputum Culture - Final 05/23/21 17:53 Urine clean catch - Clean Catch Midstream Urine Culture - Fin al No growth. Critical Care Time Critical Care Time (minutes): 60
[2021-01-12 16:56] LABS: Potassium 2.8 mmol/L (3.3-5.1)
--- NOTE | 2021-01-12 17:04 | PM.EVENT ---
Event Note Date of Service: 01/12/21 Event Note: was off ventilator this morning stable VS abd soft no surgical scars on the abdomen PEG was planned for today - however, had an emergency add on case rescheduled for tomorrow ICU aware
--- NOTE | 2021-01-12 17:14 | PM.PNNEP ---
Subjective Subjective Date of Service: 01/12/21 Principal diagnosis: hypok Interval history: Seen and examined Physical Exam Vital Signs: Vital Signs: Last Vital Signs Temp 99.5 F 01/12/21 17:00 Pulse 110 H 01/12/21 17:00 Resp 18 01/12/21 17:00 BP 104/45 L 01/12/21 17:00 Pulse Ox 98 01/12/21 17:00 Oxygen Flow Rate 2 12/26/20 15:00 Body Mass Index 39.2 Const: General: cooperative, no acute distress, alert and awake; No acute distress HENMT: Head: Yes normocephalic and Yes atraumatic Eyes: Other: Intubated. Sedated Neck: Neck: Yes supple Resp: Other: Crackled left base Auscultation: clear to auscultation bilaterally and diminished lung sounds Cardio: Jugular venous distension: no JVD Palpation: no palpable S3 and no palpable S4 Rate: regular rate Rhythm: regular rhythm Heart sounds: S1 normal heart sound present, S2 normal heart sound present, no murmurs and no rubs GI: Inspection: Yes normal to inspection Palpation (GI): Soft to palpation and nontender Auscultation: normal bowel sounds : Other: wright in place Neuro: General: moves all extremities and no focal motor deficits Motor exam (neuro): No Asterixis during motor activity present Extrem: Other: 1+ LE edema bilaterally General: Yes edema Objective Data Labs CBC & Chem 7: 01/12/21 05:35 01/12/21 16:14 Labs: Laboratory Results - last 24 hr 01/11/21 01/11/21 01/11/21 18:04 19:07 19:09 WBC RBC Hgb Hct MCV MCH MCHC RDW Plt Count MPV Absolute Nucleated RBC Nucleated RBC % (auto) VBG pH VBG pCO2 VBG pO2 VBG HCO3 VBG O2 Saturation VBG Base Excess Sodium 141 Potassium 2.5 L* Chloride 93 L Carbon Dioxide 39 H Anion Gap 12 BUN Creatinine Estim Creat Clear Calc Estimated GFR POC Glucose 120 H Random Glucose Calcium Phosphorus 3.4 Magnesium 1.8 Total Bilirubin AST ALT Alkaline Phosphatase B-Natriuretic Peptide Total Protein Albumin Urine Color Urine Appearance Urine pH Ur Specific Ages [place] Urine Protein Urine Glucose (UA) Urine Ketones Urine Blood Urine Nitrite Ur Leukocyte Esterase Urine RBC Urine WBC Ur Squamous Epith Cells Urine Bacteria Urine Mucus 0601/12/21 01/12/21 23:20 00:50 05:35 WBC RBC Hgb Hct MCV MCH MCHC RDW Plt Count MPV Absolute Nucleated RBC Nucleated RBC % (auto) VBG pH VBG pCO2 VBG pO2 VBG HCO3 VBG O2 Saturation VBG Base Excess Sodium 140 Potassium 3.1 L D 3.2 L Chloride 99 Carbon Dioxide 34 H Anion Gap 10 L BUN 12 Creatinine 0.60 Estim Creat Clear Calc 105.0 Estimated GFR > 60 POC Glucose 117 H Random Glucose 120 H Calcium 7.9 L Phosphorus 2.5 L Magnesium 1.9 Total Bilirubin 1.2 H AST 42 H D ALT 26 Alkaline Phosphatase 74 B-Natriuretic Peptide Total Protein 5.3 L Albumin 3.6 Urine Color Urine Appearance Urine pH Ur Specific Ages [place] Urine Protein Urine Glucose (UA) Urine Ketones Urine Blood Urine Nitrite Ur Leukocyte Esterase Urine RBC Urine WBC Ur Squamous Epith Cells Urine Bacteria Urine Mucus 01/12/21 01/12/21 01/12/21 05:35 05:35 05:42 WBC 9.4 RBC 2.82 L Hgb 8.8 L Hct 28.1 L MCV 99.6 H MCH 31.2 MCHC 31.3 RDW 16.9 H Plt Count 225 MPV 10.1 Absolute Nucleated RBC 0.000 Nucleated RBC % (auto) 0.0 VBG pH 7.51 H VBG pCO2 44 VBG pO2 41 VBG HCO3 36 H VBG O2 Saturation 67.0 VBG Base Excess 12.0 Sodium Potassium Chloride Carbon Dioxide Anion Gap BUN Creatinine Estim Creat Clear Calc Estimated GFR POC Glucose Random Glucose Calcium Phosphorus Magnesium Total Bilirubin AST ALT Alkaline Phosphatase B-Natriuretic Peptide 790 H Total Protein Albumin Urine Color Urine Appearance Urine pH Ur Specific Ages [place] Urine Protein Urine Glucose (UA) Urine Ketones Urine Blood Urine Nitrite Ur Leukocyte Esterase Urine RBC Urine WBC Ur Squamous Epith Cells Urine Bacteria Urine Mucus 01/12/21 01/12/21 01/12/21 05:49 10:54 11:54 WBC RBC Hgb Hct MCV MCH MCHC RDW Plt Count MPV Absolute Nucleated RBC Nucleated RBC % (auto) VBG pH VBG pCO2 VBG pO2 VBG HCO3 VBG O2 Saturation VBG Base Excess Sodium Potassium Chloride Carbon Dioxide Anion Gap BUN Creatinine Estim Creat Clear Calc Estimated GFR POC Glucose 114 122 H Random Glucose Calcium Phosphorus Magnesium Total Bilirubin AST ALT Alkaline Phosphatase B-Natriuretic Peptide Total Protein Albumin Urine Color YELLOW Urine Appearance HAZY Urine pH 7.5 Ur Specific Ages [place] 1.010 Urine Protein 2+ H Urine Glucose (UA) NEG Urine Ketones NEG Urine Blood TRACE Urine Nitrite NEG Ur Leukocyte Esterase NEG Urine RBC 15-29 H Urine WBC 0-2 Ur Squamous Epith Cells NONE Urine Bacteria 1+ Urine Mucus 1+ 01/12/21 16:14 WBC RBC Hgb Hct MCV MCH MCHC RDW Plt Count MPV Absolute Nucleated RBC Nucleated RBC % (auto) VBG pH VBG pCO2 VBG pO2 VBG HCO3 VBG O2 Saturation VBG Base Excess Sodium Potassium 2.8 L Chloride Carbon Dioxide Anion Gap BUN Creatinine Estim Creat Clear Calc Estimated GFR POC Glucose Random Glucose Calcium Phosphorus Magnesium Total Bilirubin AST ALT Alkaline Phosphatase B-Natriuretic Peptide Total Protein Albumin Urine Color Urine Appearance Urine pH Ur Specific Ages [place] Urine Protein Urine Glucose (UA) Urine Ketones Urine Blood Urine Nitrite Ur Leukocyte Esterase Urine RBC Urine WBC Ur Squamous Epith Cells Urine Bacteria Urine Mucus Microbiology Microbiology Results: Microbiology 01/12/21 10:41 Sputum - Suctioned Gram Stain - Final 01/10/21 06:11 Blood - Venous Blood Culture - Preliminary No growth after 48 hours. 01/10/21 06:11 Blood - Venous Blood Culture - Preliminary No growth after 48 hours. 12/30/20 06:29 Blood - Venous Blood Culture - Final No growth after 5 days. 12/30/20 06:20 Blood - Venous Blood Culture - Final No growth after 5 days. 12/31/20 15:59 Sputum - Suctioned Gram Stain - Final 12/31/20 15:59 Sputum - Suctioned Sputum Culture - Final 12/30/20 06:37 Kidney - Wright Catheter Urine Culture - Final No growth. 12/27/20 17:56 Sputum - Suctioned Gram Stain - Final 12/27/20 17:56 Sputum - Suctioned Sputum Culture - Final 12/27/20 17:53 Urine clean catch - Clean Catch Midstream Urine Culture - Final No growth. Assessment & Plan Assessment and plan (1) Acute hyponatremia: Status: Acute Assessment and Plan: 1) HypoK: d/t kaluiresis from ongoing loop diuretic as no diarrhea per RN ( another potential source of stool and Urine K losses) 2. Incr HCO3 with incr Ph c/w contraction alkalosis from diuresis 3) Hypervol: much improved per RN; now on a.c. for LUE DVT REC: cont k replacement as need vi IV and once NGT replaced viua NGT; start aldactone and cont diamox if HCO3 > 38f or RX of hypoK and metabolic alk respectively Will follow with ICU team Time Spent With Patient Time: Total time spent is greater than 50% in coordination of care (as documented) at patient's floor/unit and/or counseling patient: Procedures Date of Service Date of Service: 01/12/21
[2021-01-12] MEDS: Esmolol HCl/NaCl Iso 2,500 MG/250 ML IV.SOLN 16.53 MG IVCONT (17:40)
[2021-01-12 17:58] LABS: Glucose, Whole Blood 88 mg/dL (60-115)
[2021-01-12 23:04] LABS: Glucose, Whole Blood 96 mg/dL (60-115)
[2021-01-13] VITALS (32 sets, daily range): BP systolic 91–163; BP diastolic 29–102; PULSE 97–148; RESP 21–29; TEMP 35.4–37.7; O2SAT 85–99
[2021-01-13] MEDS: Potassium Chloride/H20 40 MEQ/100 ML PIGGYBACK 100 MEQ IV (00:11)
[2021-01-13 00:32] LABS: Potassium 3.3 mmol/L (3.3-5.1)
[2021-01-13] MEDS: Esmolol HCl/NaCl Iso 2,500 MG/250 ML IV.SOLN 33.07 MG IVCONT ×2 (02:10→09:50)
[2021-01-13] MEDS: fentaNYL citrate/PF 100 MCG/2 ML VIAL 50 MCG IVPUSH ×3 (02:10→21:25)
[2021-01-13] MEDS: Enoxaparin Sodium 100 MG/ML SYRINGE SUBCUT ×2 (02:10→13:17)
[2021-01-13 05:38] LABS: VBG Base Excess 6.1 mmol/L; VBG HCO3 31 mmol/L (22-26); VBG pCO2 45 mmHg; VBG pH 7.43 (7.32-7.43); VBG pO2 42 mmHg
[2021-01-13 05:43] LABS: MANUAL DIFF FLAG NO
[2021-01-13 06:09] LABS: Basophils Percent Auto 0.2 % (0-2); Eosinophils Absolute Auto 0.1 X10*3/uL (0.0-0.4); Eosinophils Percent Auto 0.5 % (0-4); Hematocrit 29.6 % (37-47); Hemoglobin 9.4 g/dl (12.0-16.0); Imm Gran Abs Auto 0.18 X10*3/uL (0.00-0.03); Imm Gran Pct Auto 1.4 % (0.0-0.4); Lymphocytes Absolute Auto 0.7 X10*3/uL (1.2-4.9); Lymphocytes Percent Auto 5.4 % (20-40); Mean Corpuscular HGB Conc 31.8 g/dl (31.0-35.0); Mean Corpuscular Volume 100.7 fL (80-98); Mean Platelet Volume 10.8 fL (9.4-12.3); Monocytes Absolute Auto 0.7 X10*3/uL (0.1-1.2); Monocytes Percent Auto 5.7 % (2-11); Neutrophils Absolute Auto 11.3 X10*3/uL (2.0-8.3); Neutrophils Percent Auto 86.8 % (45-73); Platelet Count 324 X10*3/uL (160-400); Red Blood Count 2.94 X10*6/uL (4.20-5.50); Red Cell Distribution Width 17.6 % (11.0-16.0)
[2021-01-13 06:25] LABS: B Type Natriuretic Peptide 901 pg/mL (<100)
[2021-01-13 06:29] LABS: Anion Gap 13 (12-20); Blood Urea Nitrogen 15 mg/dL (9-16); Calcium 8.4 mg/dL (8.4-10.2); Carbon Dioxide 30 mmol/L (22-29); Chloride 105 mmol/L (96-108); Estimated Glomerular Filt Rate > 60; Glucose Random 103 mg/dL (60-115); Magnesium 1.8 mg/dL (1.6-2.6); Phosphorus 3.5 mg/dL (2.7-4.5); Potassium 3.2 mmol/L (3.3-5.1); Sodium 145 mmol/L (135-145)
[2021-01-13 07:18] LABS: Venous Blood Gas Refer to POC result
[2021-01-13] MEDS: 0.9 % Sodium Chloride Flush 3 ML SYRINGE IVFLUSH ×3 (08:39→23:55)
[2021-01-13] MEDS: Albuterol/Iprat 2.5/0.5MG 3 ML AMPUL.NEB INHALE (08:40)
[2021-01-13] MEDS: Chlorhexidine Gluc Oral Rinse 15 ML MOUTHWASH BUCCAL ×3 (09:52→21:10)
[2021-01-13] MEDS: acetaZOLAMIDE sodium 500 MG VIAL IVPUSH ×2 (09:54→21:10)
[2021-01-13] MEDS: Furosemide 200 MG in 0.9 % Sodium Chloride 80 ML IVCONT (09:55)
[2021-01-13] MEDS: Nystatin Powder 15 GM BOTTLE 1 APPL TOPICAL ×3 (09:57→21:10)
--- NOTE | 2021-01-13 10:09 | MHC.CLN ---
F/U PT DID NOT RECEIVE PEG AWAITING PLACEMENT TODAY WHEN TF NEEDED; RECOMMEND JEVITY AT MAX GOAL RATE 55CC/HR WITH 120CC FREE WATER FLUSHES Q SHIFT TO PROVIDE 1399KCALS (24KCALS/KG BASED ON IBW), 58G PROTEIN (.98G/KG), 1462CC TOTAL WATER FROM FORMULA AND FLUSHES (25CC/KG) BASED ON IBW START TF AT 20CC/HR AND INCREASE BY 10CC Q 4 HOURS UNTIL MAX GOAL IS ACHIEVED MONITOR TOLERANCE, RESIDUALS AND LYTES FOLLOWING
--- NOTE | 2021-01-13 10:39 | MHC.CM.PN ---
Patient remains in ICU. Had trach placed on 01/08. Will have PEG placed today. Anticipate patient will need to be d/c'd to a LTAC. Referral has already been made to [facility]. Clinical updates sent via [employer]. Continue to monitor for d/c needs.
--- NOTE | 2021-01-13 12:01 | PM.OP ---
Brief Operative Note Date of Service: 01/13/21 Pre-op diagnosis: Recurrent respiratory failure Post-op diagnosis: same Procedure: Peg tube placement Surgeon: Juan Miguel Castro MD Anesthesia: other (General anesthesia via tracheostomy) Was an Professional Driver used for this Procedure?: No Estimated blood loss (mL): 2 Pathology: none sent Condition: stable Disposition: ICU
--- NOTE | 2021-01-13 12:02 | P.OP_ITS ---
Operative Note Operative Note Date of Service: 01/13/21 Narrative: Preop diagnosis: Recurrent respiratory failure Postop diagnosis: The same Procedure: PEG tube placement Surgeon: Juan Miguel Castro MD No sales support assistant The patient is a 75 year female with recurrent respiratory failure, who underwent tracheostomy placement last week. She was referred to de for PEG tube placement for nutrition. Her daughter Lorraine had given consent. She was aware of the risks, benefits, and alternatives. The patient was brought to the operating room and placed in a reclining position on the ICU bed. A bite block was in position. She was under anesthesia with the tracheostomy tube for ventilatory support. A surgical time-out was done. The patient received cefazolin 2 g IV preoperatively The left upper quadrant was prepped and draped. The gastroscope was introduced through the bite block and advanced into the oropharynx. The vocal cords were visualized. The esophageal slit was seen posterior to this. The esophageal slit was intubated and the scope was gently advanced through the esophagus into the stomach. We insufflated the stomach to distend this. There was note of some flecks of old blood throughout the mucosa suggestive of gastritis. I was able to easily see the transillumination through the skin in the left per quadrant just below the subcostal margin. I was also able to see indentation on the anterior wall of the stomach with pressure on the abdominal wall with a the finger. I infiltrated this area used lidocaine 1%. I made a short incision with a blade number 11. I used a fine needle confirm location into the lumen of the stomach. I then changed this into a large-bore needle with the plastic cannula sheath. This was seen in the stomach lumen through the anterior wall. I removed the needle with the plastic cannula in place. I inserted the guidewir e through the cannula and this was grasped with a snare. The guidewire was then gently out withdrawn through the esophagus and the mouth. We looped the gastrostomy tube into the guidewire and the guidewire was pulled from the abdominal wall wall, dragging the PEG tube with this until this was snug on the anterior stomach wall. I confirmed good location with the gastroscope. The gastroscope was then removed completely again. I applied the external bolster and this was made snug on the skin. The procedure was then completed. The patient tolerated the procedure well. There were no immediate complications. Estimated blood loss about 2 cc The patient was then transferred back to the ICU with stable vital signs.
[2021-01-13 12:18] LABS: Glucose, Whole Blood 120 mg/dL (60-115)
--- NOTE | 2021-01-13 12:31 | P.CONAN_ITS ---
HPI - Anesthesia Eval Consult details Narrative: 75 yo female patient for PEG tube placement PMFSH Active Problems Active Problems: All Active Problems (Updated 01/06/21 @ 13:07 by David Hamilton MD) Urinary retention (Acute) Pulmonary aspiration (Acute) HTN (hypertension) (Acute) CAD (coronary artery disease) (Acute) Acute and chronic respiratory failure (Acute) Hemothorax on right (Acute) Acute hypercapnic respiratory failure due to obstructive sleep apnea (Acute) Acute renal failure due to tubular necrosis (Acute) Sick sinus syndrome (Acute) Symptomatic bradycardia (Acute) Sleep apnea (Acute) PAF (paroxysmal atrial fibrillation) (Acute) Cardiac arrest (Acute) Metabolic alkalosis (Acute) Dysphagia (Acute) Heart failure with preserved ejection fraction (Acute) Metabolic alkalosis (Acute) Hyperkalemia (Acute) Hyponatremia (Acute) Acute hyponatremia (Acute) CHF (congestive heart failure) (Acute) Fluid overload (Acute) Acute diastolic CHF (congestive heart failure) (Acute) Uncontrolled hypertension (Acute) SIADH (syndrome of inappropriate ADH production) (Acute) Past Medical History Medical History (Updated 01/13/21 @ 16:56 by Laurence Miner) Acute hypercapnic respiratory failure due to obstructive sleep apnea Afib Essential hypertension HTN (hypertension) Myocardial infarct Obesity 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 Sleep apnea Throat cancer Surgical History Surgical History (Updated 01/13/21 @ 16:56 by Laurence Miner) Atrial fibrillation status post cardioversion History of Problems with Anesthesia: No Social History Social History (Updated 01/13/21 @ 16:52 by Laurence Miner) Household Members: Children Housing: House Do you presently have visiting nurse or other home services: Yes Alcohol intake: current Alcohol intake frequency: does not drink Alcohol type: beer and hard liquor Years Smoked: 41 yrs Use of substances other than those prescribed or required for medical reasons: No Currently Displaying Signs/Symptoms of Drug Intoxication Withdrawal: No Have you been hit, kicked, punched, or otherwise hurt by someone within the past year? If so, by whom?: No Do you feel safe in your current relationship?: No Current Relationship Is there a partner from a previous relationship who is making you feel unsafe now?: No Are you made to feel afraid or neglected: No Are you DNR?: No Advance Directives: Yes Advance Directives Information Provided: No Advance Directives on File: Yes Advance Directives Date on File: 01/13/21 Do you have thoughts of harming others: None Do you have a plan to hurt others: No Plan Recently lost weight without trying: No Eating poorly because of decreased appetite: No Nutrition Risks: No Nutritional Risk service: No Current occupational status: disabled Meds Allergies Allergy/AdvReac Type Severity Reaction Status Date / Time amiodarone Allergy Severe Difficulty Verified 01/03/21 21:43 Breathing SEASONAL ALLERGIES Allergy Unknown SNEEZING Uncoded 04/23/20 15:17 RUNNY NOSE Active Medications: Current Medications Generic Name Dose Route Start Last Admin Trade Name Freq PRN Reason Stop Dose Admin Acetazolamide 500 mg 01/12/21 21:00 01/13/21 09:54 Acetazolamide Sodium 500 Mg Vial IVPUSH 500 mg Q12H DEE Administration Chlorhexidine Gluconate 15 ml 01/05/21 15:00 01/13/21 09:52 Chlorhexidine Gluc Oral Rinse 15 Ml Mouthwash BUCCAL 15 ml TID DEE Administration Enoxaparin Sodium 100 mg 01/10/21 14:00 01/13/21 02:10 Enoxaparin Sodium 100 Mg/Ml Syringe SUBCUT 100 mg Q12H DEE Administration Fentanyl 50 mcg 01/05/21 10:55 01/13/21 02:10 Fentanyl Citrate/Pf 100 Mcg/2 Ml Vial IVPUSH 50 mcg Q2H PRN Administration Pain, Moderate (Pain Scale 4-6 Dexmedetomidine HCl 400 mcg in 100 mls @ 0 mls/hr 01/09/21 18:45 01/12/21 09:30 Precedex IVCONT 0 mcg/kg/hr .Q0M DEE 0 mls/hr Titration Protocol Per Protocol Furosemide 200 mg/ Sodium 100 mls @ 1 mls/hr 01/11/21 09:00 01/13/21 09:55 Chloride IVCONT 2 mg/hr .Q24H DEE 1 mls/hr Administration 2 MG/HR Esmolol HCl 2,500 mg in 250 mls @ 0 mls/hr 01/12/21 18:00 01/13/21 09:50 Brevibloc/Nacl IVCONT 50 mcg/kg/min .Q0M DEE 33.07 mls/hr Administration Protocol Per Protocol Potassium Chloride 40 meq in 100 mls @ 50 mls/hr 01/13/21 12:30 IV 01/13/21 16:29 Q2H [facility] Insulin Human Lispro 0 unit 12/28/20 12:00 01/13/21 06:10 Insulin Lispro 100 Unit/Ml 3 Ml Vial SUBCUT Not Given Q6H [facility] Protocol Metoprolol Tartrate 5 mg 01/03/21 14:08 01/12/21 13:28 Metoprolol Tartrate 5 Mg/5 Ml Vial IVPUSH 5 mg Q6H PRN Administration Heart Rate >100 Nystatin 1 appl 01/09/21 17:00 01/13/21 09:57 Nystatin Powder 15 Gm Bottle TOPICAL 1 appl TID [facility] Administration Protocol Omeprazole 40 mg 01/06/21 06:30 01/13/21 06:10 Omeprazole 20 Mg/10 Ml Susp.Recon PO Not Given DAILY@0630 [facility] Sodium Chloride 3 ml 12/14/20 00:00 01/13/21 08:39 0.9 % Sodium Chloride Flush 3 Ml Syringe IVFLUSH 3 ml QSHIFT [facility] Administration Spironolactone 25 mg 01/13/21 12:20 Spironolactone 25 Mg Tablet G-TUBE DAILY [facility] Protocol Home Medications Medication Instructions Recorded Confirmed Last Taken Type lorazepam 1 tab PO BID PRN 11/18/20 12/13/20 Unknown History omeprazole 1 cap PO BID 11/18/20 12/13/20 Unknown History simvastatin 1 tab PO DAILY 11/18/20 12/13/20 Unknown History Exam Exam Date and Time: January 13, 2021 1231 Height,Weight and Vital Signs: Height 5 ft 6 in Weight 110.223 kg Last Vital Signs Temp 98.6 F 01/13/21 12:17 Pulse 115 H 01/13/21 12:17 Resp 23 H 01/13/21 12:17 BP 131/72 01/13/21 12:17 Pulse Ox 91 L 01/13/21 12:17 Oxygen Flow Rate 2 12/26/20 15:00 Pertinent Lab Results Pertinent Lab Results: Laboratory Tests 12/13/20 12/13/20 12/13/20 11:47 11:47 11:47 WBC 12.4 H RBC 3.59 L Hgb 11.6 L Hct 35.1 L MCV 97.8 MCH 32.3 MCHC 33.0 RDW 12.6 Plt Count 316 MPV 9.3 L Immature Gran % (Auto) 0.5 H Neut % (Auto) 90.8 H Lymph % (Auto) 2.7 L [place] % (Auto) 5.7 Eos % (Auto) 0.2 Baso % (Auto) 0.1 Lymph # (Auto) 0.3 L [place] # (Auto) 0.7 Eos # (Auto) 0.0 Baso # (Auto) 0.0 Abs Immat Gran (auto) 0.06 H Absolute Neuts (auto) 11.3 H Absolute Nucleated RBC 0.000 Nucleated RBC % (auto) 0.0 Smear Tech's Comments VERIFIED PT INR APTT PTT (Heparin Protocol) Fibrinogen D-Dimer Hep-Ind Thrombocytop Com O2 Saturation ABG pH at Pt Temp ABG pH (Temp Correct) ABG pCO2 at Pt Temp ABG pCO2 (Temp Corrct ABG pO2 at Pt Temp ABG pO2 (Temp Correct ABG HCO3 ABG Base Excess (Actual) VBG pH VBG pCO2 VBG pO2 VBG HCO3 VBG O2 Saturation VBG Base Excess Sodium 120 L* Potassium 6.0 H* Chloride 79 L Carbon Dioxide 37 H Anion Gap 10 L BUN 21 H Creatinine 0.66 Estim Creat Clear Calc 94.9 Estimated GFR > 60 POC Glucose Random Glucose 133 H Osmolality Lactic Acid Lactic Acid Fup @ 2Hr Lactic Acid Fup @ 4Hr Calcium 9.3 Phosphorus Magnesium Total Bilirubin 0.8 AST 23 ALT 27 Alkaline Phosphatase 70 Troponin I High Sens B-Natriuretic Peptide 849 H Total Protein 6.8 Albumin 4.0 Lipase 18 TSH Urine Color Urine Appearance Urine pH Ur Specific [place] Urine Protein Urine Glucose (UA) Urine Ketones Urine Blood Urine Nitrite Ur Leukocyte Esterase Urine RBC Urine WBC Ur Squamous Epith Cells Urine Bacteria Hyaline Casts Granular Casts Urine Mucus Urine Osmolality Ur Random Sodium Ur Random Chloride Ur Random Potassium Stool Occult Blood Ethyl Alcohol Heparin Dep Plt Ab OD Hep-Induced Plt Ab Daniela COVID-19 ([facility]) COVID-19 Clin Com Blood Type Antibody Screen Direct Antiglob Test SUSANNE, Polyspecific Crossmatch 12/13/20 12/13/20 12/13/20 11:47 11:47 11:47 WBC RBC Hgb Hct MCV MCH MCHC RDW Plt Count MPV Immature Gran % (Auto) Neut % (Auto) Lymph % (Auto) [place] % (Auto) Eos % (Auto) Baso % (Auto) Lymph # (Auto) [place] # (Auto) Eos # (Auto) Baso # (Auto) Abs Immat Gran (auto) Absolute Neuts (auto) Absolute Nucleated RBC Nucleated RBC % (auto) Smear Tech's Comments PT 24.0 H D INR 2.0 H APTT 34.2 PTT (Heparin Protocol) Fibrinogen D-Dimer Hep-Ind Thrombocytop Com O2 Saturation ABG pH at Pt Temp ABG pH (Temp Correct) ABG pCO2 at Pt Temp ABG pCO2 (Temp Corrct ABG pO2 at Pt Temp ABG pO2 (Temp Correct ABG HCO3 ABG Base Excess (Actual) VBG pH VBG pCO2 VBG pO2 VBG HCO3 VBG O2 Saturation VBG Base Excess Sodium Potassium Chloride Carbon Dioxide Anion Gap BUN Creatinine Estim Creat Clear Calc Estimated GFR POC Glucose Random Glucose Osmolality Lactic Acid Lactic Acid Fup @ 2Hr Lactic Acid Fup @ 4Hr Calcium Phosphorus Magnesium Total Bilirubin AST ALT Alkaline Phosphatase Troponin I High Sens 5.9 B-Natriuretic Peptide Total Protein Albumin Lipase TSH Urine Color Urine Appearance Urine pH Ur Specific [place] Urine Protein Urine Glucose (UA) Urine Ketones Urine Blood Urine Nitrite Ur Leukocyte Esterase Urine RBC Urine WBC Ur Squamous Epith Cells Urine Bacteria Hyaline Casts Granular Casts Urine Mucus Urine Osmolality Ur Random Sodium Ur Random Chloride Ur Random Potassium Stool Occult Blood Ethyl Alcohol Heparin Dep Plt Ab OD Hep-Induced Plt Ab Daniela COVID-19 ([facility]) Negative COVID-19 Clin Com See Note Blood Type Antibody Screen Direct Antiglob Test SUSANNE, Polyspecific Crossmatch 12/13/20 12/13/20 12/13/20 11:47 11:47 11:47 WBC RBC Hgb Hct MCV MCH MCHC RDW Plt Count MPV Immature Gran % (Auto) Neut % (Auto) Lymph % (Auto) [place] % (Auto) Eos % (Auto) Baso % (Auto) Lymph # (Auto) [place] # (Auto) Eos # (Auto) Baso # (Auto) Abs Immat Gran (auto) Absolute Neuts (auto) Absolute Nucleated RBC Nucleated RBC % (auto) Smear Tech's Comments PT INR APTT PTT (Heparin Protocol) Fibrinogen D-Dimer Hep-Ind Thrombocytop Com O2 Saturation ABG pH at Pt Temp ABG pH (Temp Correct) ABG pCO2 at Pt Temp ABG pCO2 (Temp Corrct ABG pO2 at Pt Temp ABG pO2 (Temp Correct ABG HCO3 ABG Base Excess (Actual) VBG pH VBG pCO2 VBG pO2 VBG HCO3 VBG O2 Saturation VBG Base Excess Sodium Potassium Chloride Carbon Dioxide Anion Gap BUN Creatinine Estim Creat Clear Calc Estimated GFR POC Glucose Random Glucose Osmolality 262 L Lactic Acid Lactic Acid Fup @ 2Hr Lactic Acid Fup @ 4Hr Calcium Phosphorus Magnesium 2.0 Total Bilirubin AST ALT Alkaline Phosphatase Troponin I High Sens B-Natriuretic Peptide Total Protein Albumin Lipase TSH Urine Color Urine Appearance Urine pH Ur Specific [place] Urine Protein Urine Glucose (UA) Urine Ketones Urine Blood Urine Nitrite Ur Leukocyte Esterase Urine RBC Urine WBC Ur Squamous Epith Cells Urine Bacteria Hyaline Casts Granular Casts Urine Mucus Urine Osmolality Ur Random Sodium Ur Random Chloride Ur Random Potassium Stool Occult Blood Ethyl Alcohol < 10 Heparin Dep Plt Ab OD Hep-Induced Plt Ab Daniela COVID-19 ([facility]) COVID-19 Clin Com Blood Type Antibody Screen Direct Antiglob Test SUSANNE, Polyspecific Crossmatch 12/13/20 12/13/20 12/13/20 12:33 12:33 12:33 WBC RBC Hgb Hct MCV MCH MCHC RDW Plt Count MPV Immature Gran % (Auto) Neut % (Auto) Lymph % (Auto) [place] % (Auto) Eos % (Auto) Baso % (Auto) Lymph # (Auto) [place] # (Auto) Eos # (Auto) Baso # (Auto) Abs Immat Gran (auto) Absolute Neuts (auto) Absolute Nucleated RBC Nucleated RBC % (auto) Smear Tech's Comments PT INR APTT PTT (Heparin Protocol) Fibrinogen D-Dimer Hep-Ind Thrombocytop Com O2 Saturation ABG pH at Pt Temp ABG pH (Temp Correct) ABG pCO2 at Pt Temp ABG pCO2 (Temp Corrct ABG pO2 at Pt Temp ABG pO2 (Temp Correct ABG HCO3 ABG Base Excess (Actual) VBG pH VBG pCO2 VBG pO2 VBG HCO3 VBG O2 Saturation VBG Base Excess Sodium Potassium Chloride Carbon Dioxide Anion Gap BUN Creatinine Estim Creat Clear Calc Estimated GFR POC Glucose Random Glucose Osmolality Lactic Acid Lactic Acid Fup @ 2Hr Lactic Acid Fup @ 4Hr Calcium Phosphorus Magnesium Total Bilirubin AST ALT Alkaline Phosphatase Troponin I High Sens B-Natriuretic Peptide Total Protein Albumin Lipase TSH Urine Color YELLOW Urine Appearance CLEAR Urine pH 6.0 Ur Specific [place] >= 1.030 H Urine Protein TRACE Urine Glucose (UA) NEG Urine Ketones NEG Urine Blood NEG Urine Nitrite NEG Ur Leukocyte Esterase NEG Urine RBC Urine WBC Ur Squamous Epith Cells Urine Bacteria Hyaline Casts Granular Casts Urine Mucus Urine Osmolality 546 Ur Random Sodium < 20.0 Ur Random Chloride Ur Random Potassium Stool Occult Blood Ethyl Alcohol Heparin Dep Plt Ab OD Hep-Induced Plt Ab Daniela COVID-19 ([facility]) COVID-19 Clin Com Blood Type Antibody Screen Direct Antiglob Test SUSANNE, Polyspecific Crossmatch 12/13/20 12/13/20 12/14/20 15:48 15:48 04:29 WBC RBC Hgb Hct MCV MCH MCHC RDW Plt Count MPV Immature Gran % (Auto) Neut % (Auto) Lymph % (Auto) [place] % (Auto) Eos % (Auto) Baso % (Auto) Lymph # (Auto) [place] # (Auto) Eos # (Auto) Baso # (Auto) Abs Immat Gran (auto) Absolute Neuts (auto) Absolute Nucleated RBC Nucleated RBC % (auto) Smear Tech's Comments PT INR APTT PTT (Heparin Protocol) Fibrinogen D-Dimer Hep-Ind Thrombocytop Com O2 Saturation ABG pH at Pt Temp ABG pH (Temp Correct) ABG pCO2 at Pt Temp ABG pCO2 (Temp Corrct ABG pO2 at Pt Temp ABG pO2 (Temp Correct ABG HCO3 ABG Base Excess (Actual) VBG pH VBG pCO2 VBG pO2 VBG HCO3 VBG O2 Saturation VBG Base Excess Sodium 119 L* Potassium 5.7 H Chloride 78 L Carbon Dioxide 35 H Anion Gap 12 BUN 19 H Creatinine 0.65 Estim Creat Clear Calc 96.3 Estimated GFR > 60 POC Glucose Random Glucose 122 H Osmolality Lactic Acid Lactic Acid Fup @ 2Hr Lactic Acid Fup @ 4Hr Calcium 8.9 Phosphorus Magnesium Total Bilirubin AST ALT Alkaline Phosphatase Troponin I High Sens 5.8 B-Natriuretic Peptide 1106 H Total Protein Albumin Lipase TSH Urine Color Urine Appearance Urine pH Ur Specific [place] Urine Protein Urine Glucose (UA) Urine Ketones Urine Blood Urine Nitrite Ur Leukocyte Esterase Urine RBC Urine WBC Ur Squamous Epith Cells Urine Bacteria Hyaline Casts Granular Casts Urine Mucus Urine Osmolality Ur Random Sodium Ur Random Chloride Ur Random Potassium Stool Occult Blood Ethyl Alcohol Heparin Dep Plt Ab OD Hep-Induced Plt Ab Daniela COVID-19 ([facility]) COVID-19 Clin Com Blood Type Antibody Screen Direct Antiglob Test SUSANNE, Polyspecific Crossmatch 12/14/20 12/14/20 12/14/20 04:29 04:29 08:36 WBC 11.0 H RBC 3.60 L Hgb 11.5 L Hct 35.6 L MCV 98.9 H MCH 31.9 MCHC 32.3 RDW 12.5 Plt Count 321 MPV 9.5 Immature Gran % (Auto) 0.6 H Neut % (Auto) 81.8 H Lymph % (Auto) 5.7 L [place] % (Auto) 10.3 Eos % (Auto) 1.5 Baso % (Auto) 0.1 Lymph # (Auto) 0.6 L [place] # (Auto) 1.1 Eos # (Auto) 0.2 Baso # (Auto) 0.0 Abs Immat Gran (auto) 0.07 H Absolute Neuts (auto) 9.0 H Absolute Nucleated RBC 0.000 Nucleated RBC % (auto) 0.0 Smear Tech's Comments VERIFIED PT INR APTT PTT (Heparin Protocol) Fibrinogen D-Dimer Hep-Ind Thrombocytop Com O2 Saturation ABG pH at Pt Temp ABG pH (Temp Correct) ABG pCO2 at Pt Temp ABG pCO2 (Temp Corrct ABG pO2 at Pt Temp ABG pO2 (Temp Correct ABG HCO3 ABG Base Excess (Actual) VBG pH VBG pCO2 VBG pO2 VBG HCO3 VBG O2 Saturation VBG Base Excess Sodium 128 L Potassium 4.2 D Chloride 77 L Carbon Dioxide 45 H* D Anion Gap 10 L BUN 22 H Creatinine 0.60 Estim Creat Clear Calc 104.4 Estimated GFR > 60 POC Glucose Random Glucose 100 Osmolality Lactic Acid Lactic Acid Fup @ 2Hr Lactic Acid Fup @ 4Hr Calcium 9.0 Phosphorus Magnesium Total Bilirubin AST ALT Alkaline Phosphatase Troponin I High Sens B-Natriuretic Peptide Total Protein Albumin Lipase TSH 1.38 Urine Color Urine Appearance Urine pH Ur Specific [place] Urine Protein Urine Glucose (UA) Urine Ketones Urine Blood Urine Nitrite Ur Leukocyte Esterase Urine RBC Urine WBC Ur Squamous Epith Cells Urine Bacteria Hyaline Casts Granular Casts Urine Mucus Urine Osmolality Ur Random Sodium Ur Random Chloride Ur Random Potassium Stool Occult Blood Ethyl Alcohol Heparin Dep Plt Ab OD Hep-Induced Plt Ab Daniela COVID-19 ([facility]) COVID-19 Clin Com Blood Type Antibody Screen Direct Antiglob Test SUSANNE, Polyspecific Crossmatch 12/14/20 12/14/20 12/14/20 08:36 13:11 13:11 WBC RBC Hgb Hct MCV MCH MCHC RDW Plt Count MPV Immature Gran % (Auto) Neut % (Auto) Lymph % (Auto) [place] % (Auto) Eos % (Auto) Baso % (Auto) Lymph # (Auto) [place] # (Auto) Eos # (Auto) Baso # (Auto) Abs Immat Gran (auto) Absolute Neuts (auto) Absolute Nucleated RBC Nucleated RBC % (auto) Smear Tech's Comments PT INR APTT PTT (Heparin Protocol) Fibrinogen D-Dimer Hep-Ind Thrombocytop Com O2 Saturation ABG pH at Pt Temp ABG pH (Temp Correct) ABG pCO2 at Pt Temp ABG pCO2 (Temp Corrct ABG pO2 at Pt Temp ABG pO2 (Temp Correct ABG HCO3 ABG Base Excess (Actual) VBG pH VBG pCO2 VBG pO2 VBG HCO3 VBG O2 Saturation VBG Base Excess Sodium 125 L Potassium 4.0 Chloride 79 L Carbon Dioxide 40 H* Anion Gap 10 L BUN 20 H Creatinine 0.60 Estim Creat Clear Calc 104.4 Estimated GFR > 60 POC Glucose Random Glucose 146 H D Osmolality Lactic Acid Lactic Acid Fup @ 2Hr Lactic Acid Fup @ 4Hr Calcium 8.6 Phosphorus Magnesium 1.5 L Total Bilirubin AST ALT Alkaline Phosphatase Troponin I High Sens B-Natriuretic Peptide 1285 H Cancelled Total Protein Albumin Lipase TSH Urine Color Urine Appearance Urine pH Ur Specific [place] Urine Protein Urine Glucose (UA) Urine Ketones Urine Blood Urine Nitrite Ur Leukocyte Esterase Urine RBC Urine WBC Ur Squamous Epith Cells Urine Bacteria Hyaline Casts Granular Casts Urine Mucus Urine Osmolality Ur Random Sodium Ur Random Chloride Ur Random Potassium Stool Occult Blood Ethyl Alcohol Heparin Dep Plt Ab OD Hep-Induced Plt Ab Daniela COVID-19 ([facility]) COVID-19 Clin Com Blood Type Antibody Screen Direct Antiglob Test SUSANNE, Polyspecific Crossmatch 12/15/20 12/15/20 12/16/20 11:15 12:51 09:27 WBC RBC Hgb Hct MCV MCH MCHC RDW Plt Count MPV Immature Gran % (Auto) Neut % (Auto) Lymph % (Auto) [place] % (Auto) Eos % (Auto) Baso % (Auto) Lymph # (Auto) [place] # (Auto) Eos # (Auto) Baso # (Auto) Abs Immat Gran (auto) Absolute Neuts (auto) Absolute Nucleated RBC Nucleated RBC % (auto) Smear Tech's Comments PT INR APTT PTT (Heparin Protocol) Fibrinogen D-Dimer Hep-Ind Thrombocytop Com O2 Saturation ABG pH at Pt Temp ABG pH (Temp Correct) ABG pCO2 at Pt Temp ABG pCO2 (Temp Corrct ABG pO2 at Pt Temp ABG pO2 (Temp Correct ABG HCO3 ABG Base Excess (Actual) VBG pH VBG pCO2 VBG pO2 VBG HCO3 VBG O2 Saturation VBG Base Excess Sodium 130 L 134 L Potassium 3.9 3.6 Chloride 79 L 80 L Carbon Dioxide 44 H* 50 H* Anion Gap 11 L 8 L BUN 16 10 Creatinine 0.62 0.59 Estim Creat Clear Calc 101.0 106.1 Estimated GFR > 60 > 60 POC Glucose Random Glucose 171 H 113 Osmolality Lactic Acid Lactic Acid Fup @ 2Hr Lactic Acid Fup @ 4Hr Calcium 8.8 9.0 Phosphorus Magnesium Total Bilirubin AST ALT Alkaline Phosphatase Troponin I High Sens B-Natriuretic Peptide Total Protein Albumin Lipase TSH Urine Color Urine Appearance Urine pH Ur Specific [place] Urine Protein Urine Glucose (UA) Urine Ketones Urine Blood Urine Nitrite Ur Leukocyte Esterase Urine RBC Urine WBC Ur Squamous Epith Cells Urine Bacteria Hyaline Casts Granular Casts Urine Mucus Urine Osmolality Ur Random Sodium Ur Random Chloride 26.0 Ur Random Potassium Stool Occult Blood Ethyl Alcohol Heparin Dep Plt Ab OD Hep-Induced Plt Ab Daniela COVID-19 ([facility]) COVID-19 Clin Com Blood Type Antibody Screen Direct Antiglob Test SUSANNE, Polyspecific Crossmatch 12/16/20 12/17/20 12/18/20 13:03 08:25 14:09 WBC RBC Hgb Hct MCV MCH MCHC RDW Plt Count MPV Immature Gran % (Auto) Neut % (Auto) Lymph % (Auto) [place] % (Auto) Eos % (Auto) Baso % (Auto) Lymph # (Auto) [place] # (Auto) Eos # (Auto) Baso # (Auto) Abs Immat Gran (auto) Absolute Neuts (auto) Absolute Nucleated RBC Nucleated RBC % (auto) Smear Tech's Comments PT INR APTT PTT (Heparin Protocol) Fibrinogen D-Dimer Hep-Ind Thrombocytop Com O2 Saturation ABG pH at Pt Temp ABG pH (Temp Correct) ABG pCO2 at Pt Temp ABG pCO2 (Temp Corrct ABG pO2 at Pt Temp ABG pO2 (Temp Correct ABG HCO3 ABG Base Excess (Actual) VBG pH VBG pCO2 VBG pO2 VBG HCO3 VBG O2 Saturation VBG Base Excess Sodium 132 L 132 L Potassium 4.0 4.5 Chloride 80 L 80 L Carbon Dioxide 44 H* 45 H* Anion Gap 12 12 BUN 13 11 Creatinine 0.63 0.62 Estim Creat Clear Calc 99.4 101.0 Estimated GFR > 60 > 60 POC Glucose Random Glucose 157 H D 104 Osmolality Lactic Acid Lactic Acid Fup @ 2Hr Lactic Acid Fup @ 4Hr Calcium 9.1 9.4 Phosphorus Magnesium Total Bilirubin AST ALT Alkaline Phosphatase Troponin I High Sens B-Natriuretic Peptide Total Protein Albumin Lipase TSH Urine Color Urine Appearance Urine pH Ur Specific [place] Urine Protein Urine Glucose (UA) Urine Ketones Urine Blood Urine Nitrite Ur Leukocyte Esterase Urine RBC Urine WBC Ur Squamous Epith Cells Urine Bacteria Hyaline Casts Granular Casts Urine Mucus Urine Osmolality Ur Random Sodium Ur Random Chloride Ur Random Potassium Stool Occult Blood Ethyl Alcohol Heparin Dep Plt Ab OD Hep-Induced Plt Ab Daniela COVID-19 ([facility]) Negative COVID-19 Clin Com See Note Blood Type Antibody Screen Direct Antiglob Test SUSANNE, Polyspecific Crossmatch 12/18/20 12/19/20 12/20/20 14:27 12:46 10:33 WBC RBC Hgb Hct MCV MCH MCHC RDW Plt Count MPV Immature Gran % (Auto) Neut % (Auto) Lymph % (Auto) [place] % (Auto) Eos % (Auto) Baso % (Auto) Lymph # (Auto) [place] # (Auto) Eos # (Auto) Baso # (Auto) Abs Immat Gran (auto) Absolute Neuts (auto) Absolute Nucleated RBC Nucleated RBC % (auto) Smear Tech's Comments PT INR APTT PTT (Heparin Protocol) Fibrinogen D-Dimer Hep-Ind Thrombocytop Com O2 Saturation ABG pH at Pt Temp ABG pH (Temp Correct) ABG pCO2 at Pt Temp ABG pCO2 (Temp Corrct ABG pO2 at Pt Temp ABG pO2 (Temp Correct ABG HCO3 ABG Base Excess (Actual) VBG pH VBG pCO2 VBG pO2 VBG HCO3 VBG O2 Saturation VBG Base Excess Sodium 134 L 133 L 136 Potassium 5.2 H 5.3 H 5.0 Chloride 82 L 83 L 83 L Carbon Dioxide 47 H* 46 H* 47 H* Anion Gap 10 L 9 L 11 L BUN 15 20 H 21 H Creatinine 0.69 0.71 0.69 Estim Creat Clear Calc 90.7 88.1 90.7 Estimated GFR > 60 > 60 > 60 POC Glucose Random Glucose 129 H 117 H 143 H Osmolality Lactic Acid Lactic Acid Fup @ 2Hr Lactic Acid Fup @ 4Hr Calcium 9.6 9.1 9.2 Phosphorus 4.6 H Magnesium 1.8 Total Bilirubin AST ALT Alkaline Phosphatase Troponin I High Sens B-Natriuretic Peptide Total Protein Albumin Lipase TSH Urine Color Urine Appearance Urine pH Ur Specific [place] Urine Protein Urine Glucose (UA) Urine Ketones Urine Blood Urine Nitrite Ur Leukocyte Esterase Urine RBC Urine WBC Ur Squamous Epith Cells Urine Bacteria Hyaline Casts Granular Casts Urine Mucus Urine Osmolality Ur Random Sodium Ur Random Chloride Ur Random Potassium Stool Occult Blood Ethyl Alcohol Heparin Dep Plt Ab OD Hep-Induced Plt Ab Daniela COVID-19 ([facility]) COVID-19 Clin Com Blood Type Antibody Screen Direct Antiglob Test SUSANNE, Polyspecific Crossmatch 12/21/20 12/21/20 12/22/20 05:23 05:23 06:22 WBC RBC Hgb Hct MCV MCH MCHC RDW Plt Count MPV Immature Gran % (Auto) Neut % (Auto) Lymph % (Auto) [place] % (Auto) Eos % (Auto) Baso % (Auto) Lymph # (Auto) [place] # (Auto) Eos # (Auto) Baso # (Auto) Abs Immat Gran (auto) Absolute Neuts (auto) Absolute Nucleated RBC Nucleated RBC % (auto) Smear Tech's Comments PT INR APTT PTT (Heparin Protocol) Fibrinogen D-Dimer Hep-Ind Thrombocytop Com O2 Saturation ABG pH at Pt Temp ABG pH (Temp Correct) ABG pCO2 at Pt Temp ABG pCO2 (Temp Corrct ABG pO2 at Pt Temp ABG pO2 (Temp Correct ABG HCO3 ABG Base Excess (Actual) VBG pH VBG pCO2 VBG pO2 VBG HCO3 VBG O2 Saturation VBG Base Excess Sodium 136 137 Potassium 5.4 H 4.8 Chloride 83 L 85 L Carbon Dioxide 45 H* 47 H* Anion Gap 13 10 L BUN 21 H 21 H Creatinine 0.67 0.74 Estim Creat Clear Calc 93.4 85.1 Estimated GFR > 60 > 60 POC Glucose Random Glucose 98 106 Osmolality Lactic Acid Lactic Acid Fup @ 2Hr Lactic Acid Fup @ 4Hr Calcium 9.4 9.2 Phosphorus Magnesium Total Bilirubin AST ALT Alkaline Phosphatase Troponin I High Sens B-Natriuretic Peptide 962 H Total Protein Albumin Lipase TSH Urine Color Urine Appearance Urine pH Ur Specific [place] Urine Protein Urine Glucose (UA) Urine Ketones Urine Blood Urine Nitrite Ur Leukocyte Esterase Urine RBC Urine WBC Ur Squamous Epith Cells Urine Bacteria Hyaline Casts Granular Casts Urine Mucus Urine Osmolality Ur Random Sodium Ur Random Chloride Ur Random Potassium Stool Occult Blood Ethyl Alcohol Heparin Dep Plt Ab OD Hep-Induced Plt Ab Daniela COVID-19 ([facility]) COVID-19 Clin Com Blood Type Antibody Screen Direct Antiglob Test SUSANNE, Polyspecific Crossmatch 12/22/20 12/22/20 12/23/20 06:31 13:25 09:00 WBC 9.5 9.9 RBC 3.55 L 3.62 L Hgb 11.3 L 11.7 L Hct 37.0 38.0 MCV 104.2 H 105.0 H MCH 31.8 32.3 MCHC 30.5 L 30.8 L RDW 12.9 13.0 Plt Count 209 D 202 MPV 9.1 L 9.3 L Immature Gran % (Auto) 0.6 H Neut % (Auto) 86.6 H Lymph % (Auto) 5.6 L [place] % (Auto) 6.0 Eos % (Auto) 0.9 Baso % (Auto) 0.3 Lymph # (Auto) 0.5 L [place] # (Auto) 0.6 Eos # (Auto) 0.1 Baso # (Auto) 0.0 Abs Immat Gran (auto) 0.06 H Absolute Neuts (auto) 8.2 Absolute Nucleated RBC 0.000 0.000 Nucleated RBC % (auto) 0.0 0.0 Smear Tech's Comments VERIFIED PT INR APTT PTT (Heparin Protocol) Fibrinogen D-Dimer Hep-Ind Thrombocytop Com O2 Saturation 90.0 ABG pH at Pt Temp 7.33 L ABG pH (Temp Correct) 7.33 L ABG pCO2 at Pt Temp 96 H* ABG pCO2 (Temp Corrct 96 H* ABG pO2 at Pt Temp 66 L ABG pO2 (Temp Correct 66 L ABG HCO3 51 H ABG Base Excess (Actual) 20.6 VBG pH VBG pCO2 VBG pO2 VBG HCO3 VBG O2 Saturation VBG Base Excess Sodium Potassium Chloride Carbon Dioxide Anion Gap BUN Creatinine Estim Creat Clear Calc Estimated GFR POC Glucose Random Glucose Osmolality Lactic Acid Lactic Acid Fup @ 2Hr Lactic Acid Fup @ 4Hr Calcium Phosphorus Magnesium Total Bilirubin AST ALT Alkaline Phosphatase Troponin I High Sens B-Natriuretic Peptide Total Protein Albumin Lipase TSH Urine Color Urine Appearance Urine pH Ur Specific [place] Urine Protein Urine Glucose (UA) Urine Ketones Urine Blood Urine Nitrite Ur Leukocyte Esterase Urine RBC Urine WBC Ur Squamous Epith Cells Urine Bacteria Hyaline Casts Granular Casts Urine Mucus Urine Osmolality Ur Random Sodium Ur Random Chloride Ur Random Potassium Stool Occult Blood Ethyl Alcohol Heparin Dep Plt Ab OD Hep-Induced Plt Ab Daniela COVID-19 ([facility]) COVID-19 Clin Com Blood Type Antibody Screen Direct Antiglob Test SUSANNE, Polyspecific Crossmatch 12/23/20 12/23/20 12/24/20 09:00 09:04 07:05 WBC 9.8 RBC 3.45 L Hgb 11.1 L Hct 36.2 L MCV 104.9 H MCH 32.2 MCHC 30.7 L RDW 13.1 Plt Count 166 MPV 9.5 Immature Gran % (Auto) Neut % (Auto) Lymph % (Auto) [place] % (Auto) Eos % (Auto) Baso % (Auto) Lymph # (Auto) [place] # (Auto) Eos # (Auto) Baso # (Auto) Abs Immat Gran (auto) Absolute Neuts (auto) Absolute Nucleated RBC 0.000 Nucleated RBC % (auto) 0.0 Smear Tech's Comments PT INR APTT PTT (Heparin Protocol) Fibrinogen D-Dimer Hep-Ind Thrombocytop Com O2 Saturation ABG pH at Pt Temp ABG pH (Temp Correct) ABG pCO2 at Pt Temp ABG pCO2 (Temp Corrct ABG pO2 at Pt Temp ABG pO2 (Temp Correct ABG HCO3 ABG Base Excess (Actual) VBG pH 7.32 VBG pCO2 104 VBG pO2 46 VBG HCO3 54 H VBG O2 Saturation 72.0 VBG Base Excess 22.2 Sodium 137 Potassium 4.0 Chloride 84 L Carbon Dioxide 45 H* Anion Gap 12 BUN 26 H Creatinine 0.81 Estim Creat Clear Calc 77.8 Estimated GFR > 60 POC Glucose Random Glucose 132 H Osmolality Lactic Acid Lactic Acid Fup @ 2Hr Lactic Acid Fup @ 4Hr Calcium 9.1 Phosphorus Magnesium Total Bilirubin AST ALT Alkaline Phosphatase Troponin I High Sens B-Natriuretic Peptide Total Protein Albumin Lipase TSH Urine Color Urine Appearance Urine pH Ur Specific [place] Urine Protein Urine Glucose (UA) Urine Ketones Urine Blood Urine Nitrite Ur Leukocyte Esterase Urine RBC Urine WBC Ur Squamous Epith Cells Urine Bacteria Hyaline Casts Granular Casts Urine Mucus Urine Osmolality Ur Random Sodium Ur Random Chloride Ur Random Potassium Stool Occult Blood Ethyl Alcohol Heparin Dep Plt Ab OD Hep-Induced Plt Ab Daniela COVID-19 (MEERA) COVID-19 Clin Com Blood Type Antibody Screen Direct Antiglob Test SUSANNE, Polyspecific Crossmatch 12/24/20 12/24/20 12/25/20 07:05 07:13 06:02 WBC 8.5 RBC 3.47 L Hgb 11.2 L Hct 35.5 L MCV 102.3 H MCH 32.3 MCHC 31.5 RDW 13.0 Plt Count 165 MPV 9.7 Immature Gran % (Auto) Neut % (Auto) Lymph % (Auto) [place] % (Auto) Eos % (Auto) Baso % (Auto) Lymph # (Auto) [place] # (Auto) Eos # (Auto) Baso # (Auto) Abs Immat Gran (auto) Absolute Neuts (auto) Absolute Nucleated RBC 0.000 Nucleated RBC % (auto) 0.0 Smear Tech's Comments PT INR APTT PTT (Heparin Protocol) Fibrinogen D-Dimer Hep-Ind Thrombocytop Com O2 Saturation ABG pH at Pt Temp ABG pH (Temp Correct) ABG pCO2 at Pt Temp ABG pCO2 (Temp Corrct ABG pO2 at Pt Temp ABG pO2 (Temp Correct ABG HCO3 ABG Base Excess (Actual) VBG pH 7.37 VBG pCO2 91 VBG pO2 59 VBG HCO3 53 H VBG O2 Saturation 87.0 VBG Base Excess 23.0 Sodium 136 Potassium 3.6 Chloride 85 L Carbon Dioxide 46 H* Anion Gap 9 L BUN 28 H Creatinine 0.79 Estim Creat Clear Calc 79.7 Estimated GFR > 60 POC Glucose Random Glucose 104 Osmolality Lactic Acid Lactic Acid Fup @ 2Hr Lactic Acid Fup @ 4Hr Calcium 9.3 Phosphorus Magnesium Total Bilirubin AST ALT Alkaline Phosphatase Troponin I High Sens B-Natriuretic Peptide Total Protein Albumin Lipase TSH Urine Color Urine Appearance Urine pH Ur Specific [place] Urine Protein Urine Glucose (UA) Urine Ketones Urine Blood Urine Nitrite Ur Leukocyte Esterase Urine RBC Urine WBC Ur Squamous Epith Cells Urine Bacteria Hyaline Casts Granular Casts Urine Mucus Urine Osmolality Ur Random Sodium Ur Random Chloride Ur Random Potassium Stool Occult Blood Ethyl Alcohol Heparin Dep Plt Ab OD Hep-Induced Plt Ab Daniela COVID-19 (MEERA) COVID-19 Clin Com Blood Type Antibody Screen Direct Antiglob Test SUSANNE, Polyspecific Crossmatch 12/25/20 12/25/20 12/26/20 06:02 06:05 05:59 WBC RBC Hgb Hct MCV MCH MCHC RDW Plt Count MPV Immature Gran % (Auto) Neut % (Auto) Lymph % (Auto) [place] % (Auto) Eos % (Auto) Baso % (Auto) Lymph # (Auto) [place] # (Auto) Eos # (Auto) Baso # (Auto) Abs Immat Gran (auto) Absolute Neuts (auto) Absolute Nucleated RBC Nucleated RBC % (auto) Smear Tech's Comments PT INR APTT PTT (Heparin Protocol) Fibrinogen D-Dimer Hep-Ind Thrombocytop Com O2 Saturation ABG pH at Pt Temp ABG pH (Temp Correct) ABG pCO2 at Pt Temp ABG pCO2 (Temp Corrct ABG pO2 at Pt Temp ABG pO2 (Temp Correct ABG HCO3 ABG Base Excess (Actual) VBG pH 7.41 VBG pCO2 80 VBG pO2 43 VBG HCO3 51 H VBG O2 Saturation 71.0 VBG Base Excess 21.9 Sodium 138 137 Potassium 3.2 L 3.7 Chloride 88 L 89 L Carbon Dioxide 43 H* 40 H* Anion Gap 10 L 12 BUN 28 H 30 H Creatinine 0.75 0.79 Estim Creat Clear Calc 84.0 79.7 Estimated GFR > 60 > 60 POC Glucose Random Glucose 100 96 Osmolality Lactic Acid Lactic Acid Fup @ 2Hr Lactic Acid Fup @ 4Hr Calcium 9.1 9.1 Phosphorus Magnesium Total Bilirubin AST ALT Alkaline Phosphatase Troponin I High Sens B-Natriuretic Peptide Total Protein Albumin Lipase TSH Urine Color Urine Appearance Urine pH Ur Specific [place] Urine Protein Urine Glucose (UA) Urine Ketones Urine Blood Urine Nitrite Ur Leukocyte Esterase Urine RBC Urine WBC Ur Squamous Epith Cells Urine Bacteria Hyaline Casts Granular Casts Urine Mucus Urine Osmolality Ur Random Sodium Ur Random Chloride Ur Random Potassium Stool Occult Blood Ethyl Alcohol Heparin Dep Plt Ab OD Hep-Induced Plt Ab Daniela COVID-19 (MEERA) COVID-19 Clin Com Blood Type Antibody Screen Direct Antiglob Test SUSANNE, Polyspecific Crossmatch 12/26/20 12/27/20 12/27/20 06:06 06:34 06:41 WBC RBC Hgb Hct MCV MCH MCHC RDW Plt Count MPV Immature Gran % (Auto) Neut % (Auto) Lymph % (Auto) [place] % (Auto) Eos % (Auto) Baso % (Auto) Lymph # (Auto) [place] # (Auto) Eos # (Auto) Baso # (Auto) Abs Immat Gran (auto) Absolute Neuts (auto) Absolute Nucleated RBC Nucleated RBC % (auto) Smear Tech's Comments PT INR APTT PTT (Heparin Protocol) Fibrinogen D-Dimer Hep-Ind Thrombocytop Com O2 Saturation ABG pH at Pt Temp ABG pH (Temp Correct) ABG pCO2 at Pt Temp ABG pCO2 (Temp Corrct ABG pO2 at Pt Temp ABG pO2 (Temp Correct ABG HCO3 ABG Base Excess (Actual) VBG pH 7.40 7.31 L VBG pCO2 73 91 VBG pO2 67 95 VBG HCO3 46 H 46 H VBG O2 Saturation 92.0 97.0 VBG Base Excess 17.7 15.6 Sodium 135 Potassium 3.6 Chloride 89 L Carbon Dioxide 40 H* Anion Gap 10 L BUN 34 H Creatinine 0.83 Estim Creat Clear Calc 75.9 Estimated GFR > 60 POC Glucose Random Glucose 143 H D Osmolality Lactic Acid Lactic Acid Fup @ 2Hr Lactic Acid Fup @ 4Hr Calcium 9.0 Phosphorus Magnesium Total Bilirubin AST ALT Alkaline Phosphatase Troponin I High Sens B-Natriuretic Peptide Total Protein Albumin Lipase TSH Urine Color Urine Appearance Urine pH Ur Specific [place] Urine Protein Urine Glucose (UA) Urine Ketones Urine Blood Urine Nitrite Ur Leukocyte Esterase Urine RBC Urine WBC Ur Squamous Epith Cells Urine Bacteria Hyaline Casts Granular Casts Urine Mucus Urine Osmolality Ur Random Sodium Ur Random Chloride Ur Random Potassium Stool Occult Blood Ethyl Alcohol Heparin Dep Plt Ab OD Hep-Induced Plt Ab Daniela COVID-19 (MEERA) COVID-19 Clin Com Blood Type Antibody Screen Direct Antiglob Test SUSANNE, Polyspecific Crossmatch 12/27/20 12/27/20 12/27/20 10:54 11:26 12:52 WBC RBC Hgb Hct MCV MCH MCHC RDW Plt Count MPV Immature Gran % (Auto) Neut % (Auto) Lymph % (Auto) [place] % (Auto) Eos % (Auto) Baso % (Auto) Lymph # (Auto) [place] # (Auto) Eos # (Auto) Baso # (Auto) Abs Immat Gran (auto) Absolute Neuts (auto) Absolute Nucleated RBC Nucleated RBC % (auto) Smear Tech's Comments PT INR APTT PTT (Heparin Protocol) Fibrinogen D-Dimer Hep-Ind Thrombocytop Com O2 Saturation 44.0 95.0 ABG pH at Pt Temp 7.26 L 7.38 ABG pH (Temp Correct) 7.27 L 7.40 ABG pCO2 at Pt Temp 34 56 H ABG pCO2 (Temp Corrct 32 53 H ABG pO2 at Pt Temp 32 L* 74 L ABG pO2 (Temp Correct 29 L* 68 L ABG HCO3 15 L 34 H ABG Base Excess (Actual) -10.2 7.3 VBG pH 7.45 H VBG pCO2 49 VBG pO2 55 VBG HCO3 34 H VBG O2 Saturation 87.0 VBG Base Excess 9.5 Sodium Potassium Chloride Carbon Dioxide Anion Gap BUN Creatinine Estim Creat Clear Calc Estimated GFR POC Glucose Random Glucose Osmolality Lactic Acid Lactic Acid Fup @ 2Hr Lactic Acid Fup @ 4Hr Calcium Phosphorus Magnesium Total Bilirubin AST ALT Alkaline Phosphatase Troponin I High Sens B-Natriuretic Peptide Total Protein Albumin Lipase TSH Urine Color Urine Appearance Urine pH Ur Specific [place] Urine Protein Urine Glucose (UA) Urine Ketones Urine Blood Urine Nitrite Ur Leukocyte Esterase Urine RBC Urine WBC Ur Squamous Epith Cells Urine Bacteria Hyaline Casts Granular Casts Urine Mucus Urine Osmolality Ur Random Sodium Ur Random Chloride Ur Random Potassium Stool Occult Blood Ethyl Alcohol Heparin Dep Plt Ab OD Hep-Induced Plt Ab Daniela COVID-19 (MEERA) COVID-19 Clin Com Blood Type Antibody Screen Direct Antiglob Test SUSANNE, Polyspecific Crossmatch 12/27/20 12/27/20 12/27/20 13:07 13:07 13:07 WBC RBC Hgb Hct MCV MCH MCHC RDW Plt Count MPV Immature Gran % (Auto) Neut % (Auto) Lymph % (Auto) [place] % (Auto) Eos % (Auto) Baso % (Auto) Lymph # (Auto) [place] # (Auto) Eos # (Auto) Baso # (Auto) Abs Immat Gran (auto) Absolute Neuts (auto) Absolute Nucleated RBC Nucleated RBC % (auto) Smear Tech's Comments PT INR APTT PTT (Heparin Protocol) Fibrinogen D-Dimer 2215 Hep-Ind Thrombocytop Com O2 Saturation ABG pH at Pt Temp ABG pH (Temp Correct) ABG pCO2 at Pt Temp ABG pCO2 (Temp Corrct ABG pO2 at Pt Temp ABG pO2 (Temp Correct ABG HCO3 ABG Base Excess (Actual) VBG pH VBG pCO2 VBG pO2 VBG HCO3 VBG O2 Saturation VBG Base Excess Sodium 136 Potassium 3.0 L Chloride 88 L Carbon Dioxide 34 H Anion Gap 17 BUN 37 H Creatinine 1.13 Estim Creat Clear Calc 55.8 Estimated GFR 47 POC Glucose Random Glucose 237 H D Osmolality Lactic Acid 3.2 H* Lactic Acid Fup @ 2Hr Lactic Acid Fup @ 4Hr Calcium 8.9 Phosphorus 3.6 Magnesium 2.1 Total Bilirubin 1.0 AST 33 H D ALT 28 Alkaline Phosphatase 77 Troponin I High Sens B-Natriuretic Peptide Total Protein 6.3 L Albumin 3.8 Lipase TSH Urine Color Urine Appearance Urine pH Ur Specific [place] Urine Protein Urine Glucose (UA) Urine Ketones Urine Blood Urine Nitrite Ur Leukocyte Esterase Urine RBC Urine WBC Ur Squamous Epith Cells Urine Bacteria Hyaline Casts Granular Casts Urine Mucus Urine Osmolality Ur Random Sodium Ur Random Chloride Ur Random Potassium Stool Occult Blood Ethyl Alcohol Heparin Dep Plt Ab OD Hep-Induced Plt Ab Daniela COVID-19 (MEERA) COVID-19 Clin Com Blood Type Antibody Screen Direct Antiglob Test SUSANNE, Polyspecific Crossmatch 12/27/20 12/27/20 12/27/20 13:07 13:07 15:08 WBC 31.1 H* RBC 3.73 L Hgb 12.1 Hct 37.6 MCV 100.8 H MCH 32.4 MCHC 32.2 RDW 13.2 Plt Count 219 D MPV 10.4 Immature Gran % (Auto) Neut % (Auto) Lymph % (Auto) [place] % (Auto) Eos % (Auto) Baso % (Auto) Lymph # (Auto) [place] # (Auto) Eos # (Auto) Baso # (Auto) Abs Immat Gran (auto) Absolute Neuts (auto) Absolute Nucleated RBC 0.000 Nucleated RBC % (auto) 0.0 Smear Tech's Comments PT INR APTT PTT (Heparin Protocol) Fibrinogen D-Dimer Hep-Ind Thrombocytop Com O2 Saturation 98.0 ABG pH at Pt Temp 7.43 ABG pH (Temp Correct) 7.44 ABG pCO2 at Pt Temp 55 H ABG pCO2 (Temp Corrct 53 H ABG pO2 at Pt Temp 99 ABG pO2 (Temp Correct 93 ABG HCO3 37 H ABG Base Excess (Actual) 10.9 VBG pH VBG pCO2 VBG pO2 VBG HCO3 VBG O2 Saturation VBG Base Excess Sodium Potassium Chloride Carbon Dioxide Anion Gap BUN Creatinine Estim Creat Clear Calc Estimated GFR POC Glucose Random Glucose Osmolality Lactic Acid Lactic Acid Fup @ 2Hr Lactic Acid Fup @ 4Hr Calcium Phosphorus Magnesium Total Bilirubin AST ALT Alkaline Phosphatase Troponin I High Sens 123.2 H* B-Natriuretic Peptide 916 H Total Protein Albumin Lipase TSH Urine Color Urine Appearance Urine pH Ur Specific [place] Urine Protein Urine Glucose (UA) Urine Ketones Urine Blood Urine Nitrite Ur Leukocyte Esterase Urine RBC Urine WBC Ur Squamous Epith Cells Urine Bacteria Hyaline Casts Granular Casts Urine Mucus Urine Osmolality Ur Random Sodium Ur Random Chloride Ur Random Potassium Stool Occult Blood Ethyl Alcohol Heparin Dep Plt Ab OD Hep-Induced Plt Ab Daniela COVID-19 (MEERA) COVID-19 Clin Com Blood Type Antibody Screen Direct Antiglob Test SUSANNE, Polyspecific Crossmatch 12/27/20 12/27/20 12/27/20 17:05 17:56 19:26 WBC RBC Hgb Hct MCV MCH MCHC RDW Plt Count MPV Immature Gran % (Auto) Neut % (Auto) Lymph % (Auto) [place] % (Auto) Eos % (Auto) Baso % (Auto) Lymph # (Auto) [place] # (Auto) Eos # (Auto) Baso # (Auto) Abs Immat Gran (auto) Absolute Neuts (auto) Absolute Nucleated RBC Nucleated RBC % (auto) Smear Tech's Comments PT INR APTT PTT (Heparin Protocol) Fibrinogen D-Dimer Hep-Ind Thrombocytop Com O2 Saturation ABG pH at Pt Temp ABG pH (Temp Correct) ABG pCO2 at Pt Temp ABG pCO2 (Temp Corrct ABG pO2 at Pt Temp ABG pO2 (Temp Correct ABG HCO3 ABG Base Excess (Actual) VBG pH VBG pCO2 VBG pO2 VBG HCO3 VBG O2 Saturation VBG Base Excess Sodium Potassium Chloride Carbon Dioxide Anion Gap BUN Creatinine Estim Creat Clear Calc Estimated GFR POC Glucose 216 H Random Glucose Osmolality Lactic Acid Lactic Acid Fup @ 2Hr Lactic Acid Fup @ 4Hr Calcium Phosphorus Magnesium Total Bilirubin AST ALT Alkaline Phosphatase Troponin I High Sens 214.8 H* D B-Natriuretic Peptide Total Protein Albumin Lipase TSH Urine Color YELLOW Urine Appearance HAZY Urine pH 7.0 Ur Specific [place] 1.010 Urine Protein 3+ H Urine Glucose (UA) NEG Urine Ketones NEG Urine Blood TRACE Urine Nitrite NEG Ur Leukocyte Esterase NEG Urine RBC 0-2 Urine WBC 5-9 H Ur Squamous Epith Cells TRACE Urine Bacteria 1+ Hyaline Casts 5-9 Granular Casts 0-2 Urine Mucus NONE Urine Osmolality Ur Random Sodium Ur Random Chloride Ur Random Potassium Stool Occult Blood Ethyl Alcohol Heparin Dep Plt Ab OD Hep-Induced Plt Ab Daniela COVID-19 (MEERA) COVID-19 Clin Com Blood Type Antibody Screen Direct Antiglob Test SUSANNE, Polyspecific Crossmatch 12/27/20 12/27/20 12/28/20 19:43 19:43 00:55 WBC RBC Hgb Hct MCV MCH MCHC RDW Plt Count MPV Immature Gran % (Auto) Neut % (Auto) Lymph % (Auto) [place] % (Auto) Eos % (Auto) Baso % (Auto) Lymph # (Auto) [place] # (Auto) Eos # (Auto) Baso # (Auto) Abs Immat Gran (auto) Absolute Neuts (auto) Absolute Nucleated RBC Nucleated RBC % (auto) Smear Tech's Comments PT INR APTT PTT (Heparin Protocol) Fibrinogen D-Dimer Hep-Ind Thrombocytop Com O2 Saturation ABG pH at Pt Temp ABG pH (Temp Correct) ABG pCO2 at Pt Temp ABG pCO2 (Temp Corrct ABG pO2 at Pt Temp ABG pO2 (Temp Correct ABG HCO3 ABG Base Excess (Actual) VBG pH VBG pCO2 VBG pO2 VBG HCO3 VBG O2 Saturation VBG Base Excess Sodium 133 L 134 L Potassium 2.9 L 2.7 L Chloride 89 L 89 L Carbon Dioxide 31 H 31 H Anion Gap 16 17 BUN 40 H 40 H Creatinine 1.39 1.39 Estim Creat Clear Calc 45.3 45.3 Estimated GFR 37 37 POC Glucose Random Glucose 234 H 210 H Osmolality Lactic Acid Lactic Acid Fup @ 2Hr Lactic Acid Fup @ 4Hr Calcium 8.4 8.6 Phosphorus Magnesium Total Bilirubin AST ALT Alkaline Phosphatase Troponin I High Sens 208.8 H* B-Natriuretic Peptide Total Protein Albumin Lipase TSH Urine Color Urine Appearance Urine pH Ur Specific [place] Urine Protein Urine Glucose (UA) Urine Ketones Urine Blood Urine Nitrite Ur Leukocyte Esterase Urine RBC Urine WBC Ur Squamous Epith Cells Urine Bacteria Hyaline Casts Granular Casts Urine Mucus Urine Osmolality Ur Random Sodium Ur Random Chloride Ur Random Potassium Stool Occult Blood Ethyl Alcohol Heparin Dep Plt Ab OD Hep-Induced Plt Ab Daniela COVID-19 (MEERA) COVID-19 Clin Com Blood Type Antibody Screen Direct Antiglob Test SUSANNE, Polyspecific Crossmatch 12/28/20 12/28/20 12/28/20 05:25 05:25 05:25 WBC 18.2 H RBC 3.24 L Hgb 10.6 L Hct 30.8 L MCV 95.1 D MCH 32.7 MCHC 34.4 RDW 13.3 Plt Count 173 MPV 9.8 Immature Gran % (Auto) 0.4 Neut % (Auto) 88.2 H Lymph % (Auto) 2.5 L [place] % (Auto) 8.8 Eos % (Auto) 0.0 Baso % (Auto) 0.1 Lymph # (Auto) 0.5 L [place] # (Auto) 1.6 H Eos # (Auto) 0.0 Baso # (Auto) 0.0 Abs Immat Gran (auto) 0.08 H Absolute Neuts (auto) 16.0 H Absolute Nucleated RBC 0.000 Nucleated RBC % (auto) 0.0 Smear Tech's Comments VERIFIED PT INR APTT PTT (Heparin Protocol) Fibrinogen D-Dimer Hep-Ind Thrombocytop Com O2 Saturation ABG pH at Pt Temp ABG pH (Temp Correct) ABG pCO2 at Pt Temp ABG pCO2 (Temp Corrct ABG pO2 at Pt Temp ABG pO2 (Temp Correct ABG HCO3 ABG Base Excess (Actual) VBG pH VBG pCO2 VBG pO2 VBG HCO3 VBG O2 Saturation VBG Base Excess Sodium 134 L Potassium 2.6 L Chloride 90 L Carbon Dioxide 32 H Anion Gap 15 BUN 39 H Creatinine 1.39 Estim Creat Clear Calc 45.3 Estimated GFR 37 POC Glucose Random Glucose 176 H Osmolality Lactic Acid Lactic Acid Fup @ 2Hr Lactic Acid Fup @ 4Hr Calcium 8.5 Phosphorus 2.1 L Magnesium Total Bilirubin 1.1 H AST 26 ALT 22 Alkaline Phosphatase 64 Troponin I High Sens 133.6 H* B-Natriuretic Peptide Total Protein 5.3 L Albumin 3.1 L Lipase TSH Urine Color Urine Appearance Urine pH Ur Specific [place] Urine Protein Urine Glucose (UA) Urine Ketones Urine Blood Urine Nitrite Ur Leukocyte Esterase Urine RBC Urine WBC Ur Squamous Epith Cells Urine Bacteria Hyaline Casts Granular Casts Urine Mucus Urine Osmolality Ur Random Sodium Ur Random Chloride Ur Random Potassium Stool Occult Blood Ethyl Alcohol Heparin Dep Plt Ab OD Hep-Induced Plt Ab Daniela COVID-19 ([facility]A) COVID-19 Clin Com Blood Type Antibody Screen Direct Antiglob Test SUSANNE, Polyspecific Crossmatch 12/28/20 12/28/20 12/28/20 05:25 05:25 07:18 WBC RBC Hgb Hct MCV MCH MCHC RDW Plt Count MPV Immature Gran % (Auto) Neut % (Auto) Lymph % (Auto) [place] % (Auto) Eos % (Auto) Baso % (Auto) Lymph # (Auto) [place] # (Auto) Eos # (Auto) Baso # (Auto) Abs Immat Gran (auto) Absolute Neuts (auto) Absolute Nucleated RBC Nucleated RBC % (auto) Smear Tech's Comments PT INR APTT PTT (Heparin Protocol) Fibrinogen D-Dimer Hep-Ind Thrombocytop Com O2 Saturation 99.0 ABG pH at Pt Temp 7.62 H* ABG pH (Temp Correct) 7.62 H* ABG pCO2 at Pt Temp 34 ABG pCO2 (Temp Corrct 34 ABG pO2 at Pt Temp 162 H ABG pO2 (Temp Correct 163 H ABG HCO3 35 H ABG Base Excess (Actual) 13.6 VBG pH VBG pCO2 VBG pO2 VBG HCO3 VBG O2 Saturation VBG Base Excess Sodium Potassium Chloride Carbon Dioxide Anion Gap BUN Creatinine Estim Creat Clear Calc Estimated GFR POC Glucose 165 H Random Glucose Osmolality Lactic Acid 3.4 H* Lactic Acid Fup @ 2Hr Lactic Acid Fup @ 4Hr Calcium Phosphorus Magnesium Total Bilirubin AST ALT Alkaline Phosphatase Troponin I High Sens B-Natriuretic Peptide Total Protein Albumin Lipase TSH Urine Color Urine Appearance Urine pH Ur Specific [place] Urine Protein Urine Glucose (UA) Urine Ketones Urine Blood Urine Nitrite Ur Leukocyte Esterase Urine RBC Urine WBC Ur Squamous Epith Cells Urine Bacteria Hyaline Casts Granular Casts Urine Mucus Urine Osmolality Ur Random Sodium Ur Random Chloride Ur Random Potassium Stool Occult Blood Ethyl Alcohol Heparin Dep Plt Ab OD Hep-Induced Plt Ab Daniela COVID-19 ([facility]) COVID-19 Clin Com Blood Type Antibody Screen Direct Antiglob Test SUSANNE, Polyspecific Crossmatch 12/28/20 12/28/20 12/28/20 08:02 10:29 11:40 WBC 14.5 H RBC 3.03 L Hgb 9.8 L Hct 29.3 L MCV 96.7 MCH 32.3 MCHC 33.4 RDW 13.6 Plt Count 160 MPV 10.2 Immature Gran % (Auto) Neut % (Auto) Lymph % (Auto) [place] % (Auto) Eos % (Auto) Baso % (Auto) Lymph # (Auto) [place] # (Auto) Eos # (Auto) Baso # (Auto) Abs Immat Gran (auto) Absolute Neuts (auto) Absolute Nucleated RBC 0.000 Nucleated RBC % (auto) 0.0 Smear Tech's Comments PT INR APTT PTT (Heparin Protocol) Fibrinogen D-Dimer Hep-Ind Thrombocytop Com O2 Saturation ABG pH at Pt Temp ABG pH (Temp Correct) ABG pCO2 at Pt Temp ABG pCO2 (Temp Corrct ABG pO2 at Pt Temp ABG pO2 (Temp Correct ABG HCO3 ABG Base Excess (Actual) VBG pH VBG pCO2 VBG pO2 VBG HCO3 VBG O2 Saturation VBG Base Excess Sodium Potassium Chloride Carbon Dioxide Anion Gap BUN Creatinine Estim Creat Clear Calc Estimated GFR POC Glucose Random Glucose Osmolality Lactic Acid Lactic Acid Fup @ 2Hr 2.7 H* Lactic Acid Fup @ 4Hr 1.9 Calcium Phosphorus Magnesium Total Bilirubin AST ALT Alkaline Phosphatase Troponin I High Sens B-Natriuretic Peptide Total Protein Albumin Lipase TSH Urine Color Urine Appearance Urine pH Ur Specific [place] Urine Protein Urine Glucose (UA) Urine Ketones Urine Blood Urine Nitrite Ur Leukocyte Esterase Urine RBC Urine WBC Ur Squamous Epith Cells Urine Bacteria Hyaline Casts Granular Casts Urine Mucus Urine Osmolality Ur Random Sodium Ur Random Chloride Ur Random Potassium Stool Occult Blood Ethyl Alcohol Heparin Dep Plt Ab OD Hep-Induced Plt Ab Daniela COVID-19 ([facility]ERA) COVID-19 Clin Com Blood Type Antibody Screen Direct Antiglob Test SUSANNE, Polyspecific Crossmatch 12/28/20 12/28/20 12/28/20 11:40 11:43 17:42 WBC RBC Hgb Hct MCV MCH MCHC RDW Plt Count MPV Immature Gran % (Auto) Neut % (Auto) Lymph % (Auto) [place] % (Auto) Eos % (Auto) Baso % (Auto) Lymph # (Auto) [place] # (Auto) Eos # (Auto) Baso # (Auto) Abs Immat Gran (auto) Absolute Neuts (auto) Absolute Nucleated RBC Nucleated RBC % (auto) Smear Tech's Comments PT 19.7 H INR 1.7 H APTT PTT (Heparin Protocol) 27.9 L Fibrinogen D-Dimer Hep-Ind Thrombocytop Com O2 Saturation 92.0 ABG pH at Pt Temp 7.42 ABG pH (Temp Correct) 7.41 ABG pCO2 at Pt Temp 59 H ABG pCO2 (Temp Corrct 62 H* ABG pO2 at Pt Temp 70 L ABG pO2 (Temp Correct 75 L ABG HCO3 39 H ABG Base Excess (Actual) 13.1 VBG pH VBG pCO2 VBG pO2 VBG HCO3 VBG O2 Saturation VBG Base Excess Sodium Potassium Chloride Carbon Dioxide Anion Gap BUN Creatinine Estim Creat Clear Calc Estimated GFR POC Glucose 137 H Random Glucose Osmolality Lactic Acid Lactic Acid Fup @ 2Hr Lactic Acid Fup @ 4Hr Calcium Phosphorus Magnesium Total Bilirubin AST ALT Alkaline Phosphatase Troponin I High Sens B-Natriuretic Peptide Total Protein Albumin Lipase TSH Urine Color Urine Appearance Urine pH Ur Specific [place] Urine Protein Urine Glucose (UA) Urine Ketones Urine Blood Urine Nitrite Ur Leukocyte Esterase Urine RBC Urine WBC Ur Squamous Epith Cells Urine Bacteria Hyaline Casts Granular Casts Urine Mucus Urine Osmolality Ur Random Sodium Ur Random Chloride Ur Random Potassium Stool Occult Blood Ethyl Alcohol Heparin Dep Plt Ab OD Hep-Induced Plt Ab Daniela COVID-19 ([facility]) COVID-19 Clin Com Blood Type Antibody Screen Direct Antiglob Test SUSANNE, Polyspecific Crossmatch 12/28/20 12/28/20 12/28/20 17:48 18:24 18:24 WBC RBC Hgb Hct MCV MCH MCHC RDW Plt Count MPV Immature Gran % (Auto) Neut % (Auto) Lymph % (Auto) [place] % (Auto) Eos % (Auto) Baso % (Auto) Lymph # (Auto) [place] # (Auto) Eos # (Auto) Baso # (Auto) Abs Immat Gran (auto) Absolute Neuts (auto) Absolute Nucleated RBC Nucleated RBC % (auto) Smear Tech's Comments PT INR APTT PTT (Heparin Protocol) 74.1 D Fibrinogen D-Dimer Hep-Ind Thrombocytop Com O2 Saturation ABG pH at Pt Temp ABG pH (Temp Correct) ABG pCO2 at Pt Temp ABG pCO2 (Temp Corrct ABG pO2 at Pt Temp ABG pO2 (Temp Correct ABG HCO3 ABG Base Excess (Actual) VBG pH VBG pCO2 VBG pO2 VBG HCO3 VBG O2 Saturation VBG Base Excess Sodium 138 Potassium 3.2 L D Chloride 97 Carbon Dioxide 31 H Anion Gap 13 BUN 34 H Creatinine 1.16 Estim Creat Clear Calc 54.3 Estimated GFR 46 POC Glucose 117 H Random Glucose 122 H Osmolality Lactic Acid Lactic Acid Fup @ 2Hr Lactic Acid Fup @ 4Hr Calcium 8.1 L Phosphorus Magnesium Total Bilirubin AST ALT Alkaline Phosphatase Troponin I High Sens B-Natriuretic Peptide Total Protein Albumin Lipase TSH Urine Color Urine Appearance Urine pH Ur Specific [place] Urine Protein Urine Glucose (UA) Urine Ketones Urine Blood Urine Nitrite Ur Leukocyte Esterase Urine RBC Urine WBC Ur Squamous Epith Cells Urine Bacteria Hyaline Casts Granular Casts Urine Mucus Urine Osmolality Ur Random Sodium Ur Random Chloride Ur Random Potassium Stool Occult Blood Ethyl Alcohol Heparin Dep Plt Ab OD Hep-Induced Plt Ab Daniela COVID-19 ([facility]) COVID-19 Clin Com Blood Type Antibody Screen Direct Antiglob Test SUSANNE, Polyspecific Crossmatch 12/28/20 12/29/20 12/29/20 23:11 01:05 05:20 WBC 15.6 H RBC 2.95 L Hgb 9.6 L Hct 29.1 L MCV 98.6 H MCH 32.5 MCHC 33.0 RDW 14.2 Plt Count 133 L MPV 10.9 Immature Gran % (Auto) Neut % (Auto) Lymph % (Auto) [place] % (Auto) Eos % (Auto) Baso % (Auto) Lymph # (Auto) [place] # (Auto) Eos # (Auto) Baso # (Auto) Abs Immat Gran (auto) Absolute Neuts (auto) Absolute Nucleated RBC 0.000 Nucleated RBC % (auto) 0.0 Smear Tech's Comments PT INR APTT PTT (Heparin Protocol) 81.8 H Fibrinogen D-Dimer Hep-Ind Thrombocytop Com O2 Saturation ABG pH at Pt Temp ABG pH (Temp Correct) ABG pCO2 at Pt Temp ABG pCO2 (Temp Corrct ABG pO2 at Pt Temp ABG pO2 (Temp Correct ABG HCO3 ABG Base Excess (Actual) VBG pH VBG pCO2 VBG pO2 VBG HCO3 VBG O2 Saturation VBG Base Excess Sodium Potassium Chloride Carbon Dioxide Anion Gap BUN Creatinine Estim Creat Clear Calc Estimated GFR POC Glucose 108 Random Glucose Osmolality Lactic Acid Lactic Acid Fup @ 2Hr Lactic Acid Fup @ 4Hr Calcium Phosphorus Magnesium Total Bilirubin AST ALT Alkaline Phosphatase Troponin I High Sens B-Natriuretic Peptide Total Protein Albumin Lipase TSH Urine Color Urine Appearance Urine pH Ur Specific [place] Urine Protein Urine Glucose (UA) Urine Ketones Urine Blood Urine Nitrite Ur Leukocyte Esterase Urine RBC Urine WBC Ur Squamous Epith Cells Urine Bacteria Hyaline Casts Granular Casts Urine Mucus Urine Osmolality Ur Random Sodium Ur Random Chloride Ur Random Potassium Stool Occult Blood Ethyl Alcohol Heparin Dep Plt Ab OD Hep-Induced Plt Ab Daniela COVID-19 ([facility]) COVID-19 Clin Com Blood Type Antibody Screen Direct Antiglob Test SUSANNE, Polyspecific Crossmatch 12/29/20 12/29/20 12/29/20 05:20 05:20 05:20 WBC RBC Hgb Hct MCV MCH MCHC RDW Plt Count MPV Immature Gran % (Auto) Neut % (Auto) Lymph % (Auto) [place] % (Auto) Eos % (Auto) Baso % (Auto) Lymph # (Auto) [place] # (Auto) Eos # (Auto) Baso # (Auto) Abs Immat Gran (auto) Absolute Neuts (auto) Absolute Nucleated RBC Nucleated RBC % (auto) Smear Tech's Comments PT Cancelled 18.5 H INR Cancelled 1.6 H APTT 62.2 H* D PTT (Heparin Protocol) Fibrinogen D-Dimer 638 Hep-Ind Thrombocytop Com O2 Saturation ABG pH at Pt Temp ABG pH (Temp Correct) ABG pCO2 at Pt Temp ABG pCO2 (Temp Corrct ABG pO2 at Pt Temp ABG pO2 (Temp Correct ABG HCO3 ABG Base Excess (Actual) VBG pH VBG pCO2 VBG pO2 VBG HCO3 VBG O2 Saturation VBG Base Excess Sodium 140 Potassium 3.3 Chloride 100 Carbon Dioxide 32 H Anion Gap 11 L BUN 29 H Creatinine 0.86 Estim Creat Clear Calc 73.3 Estimated GFR > 60 POC Glucose Random Glucose 111 Osmolality Lactic Acid Lactic Acid Fup @ 2Hr Lactic Acid Fup @ 4Hr Calcium 8.0 L Phosphorus 2.9 Magnesium 1.9 Total Bilirubin AST ALT Alkaline Phosphatase Troponin I High Sens B-Natriuretic Peptide Total Protein Albumin Lipase TSH Urine Color Urine Appearance Urine pH Ur Specific [place] Urine Protein Urine Glucose (UA) Urine Ketones Urine Blood Urine Nitrite Ur Leukocyte Esterase Urine RBC Urine WBC Ur Squamous Epith Cells Urine Bacteria Hyaline Casts Granular Casts Urine Mucus Urine Osmolality Ur Random Sodium Ur Random Chloride Ur Random Potassium Stool Occult Blood Ethyl Alcohol Heparin Dep Plt Ab OD Hep-Induced Plt Ab Daniela COVID-19 ([facility]) COVID-19 Clin Com Blood Type Antibody Screen Direct Antiglob Test SUSANNE, Polyspecific Crossmatch 12/29/20 12/29/20 12/29/20 05:20 05:21 08:00 WBC RBC Hgb Hct MCV MCH MCHC RDW Plt Count MPV Immature Gran % (Auto) Neut % (Auto) Lymph % (Auto) [place] % (Auto) Eos % (Auto) Baso % (Auto) Lymph # (Auto) [place] # (Auto) Eos # (Auto) Baso # (Auto) Abs Immat Gran (auto) Absolute Neuts (auto) Absolute Nucleated RBC Nucleated RBC % (auto) Smear Tech's Comments PT INR APTT PTT (Heparin Protocol) 55.8 D Fibrinogen D-Dimer Hep-Ind Thrombocytop Com O2 Saturation 94.0 ABG pH at Pt Temp 7.45 ABG pH (Temp Correct) 7.44 ABG pCO2 at Pt Temp 52 H ABG pCO2 (Temp Corrct 54 H ABG pO2 at Pt Temp 74 L ABG pO2 (Temp Correct 77 L ABG HCO3 37 H ABG Base Excess (Actual) 11.6 VBG pH VBG pCO2 VBG pO2 VBG HCO3 VBG O2 Saturation VBG Base Excess Sodium Potassium Chloride Carbon Dioxide Anion Gap BUN Creatinine Estim Creat Clear Calc Estimated GFR POC Glucose Random Glucose Osmolality Lactic Acid Lactic Acid Fup @ 2Hr Lactic Acid Fup @ 4Hr Calcium Phosphorus Magnesium Total Bilirubin AST ALT Alkaline Phosphatase Troponin I High Sens 67.4 H* B-Natriuretic Peptide 445 H Total Protein Albumin Lipase TSH Urine Color Urine Appearance Urine pH Ur Specific [place] Urine Protein Urine Glucose (UA) Urine Ketones Urine Blood Urine Nitrite Ur Leukocyte Esterase Urine RBC Urine WBC Ur Squamous Epith Cells Urine Bacteria Hyaline Casts Granular Casts Urine Mucus Urine Osmolality Ur Random Sodium Ur Random Chloride Ur Random Potassium Stool Occult Blood Ethyl Alcohol Heparin Dep Plt Ab OD Hep-Induced Plt Ab Daniela COVID-19 ([facility]) COVID-19 Clin Com Blood Type Antibody Screen Direct Antiglob Test SUSANNE, Polyspecific Crossmatch 12/29/20 12/29/20 12/29/20 11:23 13:58 17:34 WBC RBC Hgb Hct MCV MCH MCHC RDW Plt Count MPV Immature Gran % (Auto) Neut % (Auto) Lymph % (Auto) [place] % (Auto) Eos % (Auto) Baso % (Auto) Lymph # (Auto) [place] # (Auto) Eos # (Auto) Baso # (Auto) Abs Immat Gran (auto) Absolute Neuts (auto) Absolute Nucleated RBC Nucleated RBC % (auto) Smear Tech's Comments PT INR APTT PTT (Heparin Protocol) 50.3 L Fibrinogen D-Dimer Hep-Ind Thrombocytop Com O2 Saturation ABG pH at Pt Temp ABG pH (Temp Correct) ABG pCO2 at Pt Temp ABG pCO2 (Temp Corrct ABG pO2 at Pt Temp ABG pO2 (Temp Correct ABG HCO3 ABG Base Excess (Actual) VBG pH VBG pCO2 VBG pO2 VBG HCO3 VBG O2 Saturation VBG Base Excess Sodium Potassium Chloride Carbon Dioxide Anion Gap BUN Creatinine Estim Creat Clear Calc Estimated GFR POC Glucose 103 112 Random Glucose Osmolality Lactic Acid Lactic Acid Fup @ 2Hr Lactic Acid Fup @ 4Hr Calcium Phosphorus Magnesium Total Bilirubin AST ALT Alkaline Phosphatase Troponin I High Sens B-Natriuretic Peptide Total Protein Albumin Lipase TSH Urine Color Urine Appearance Urine pH Ur Specific [place] Urine Protein Urine Glucose (UA) Urine Ketones Urine Blood Urine Nitrite Ur Leukocyte Esterase Urine RBC Urine WBC Ur Squamous Epith Cells Urine Bacteria Hyaline Casts Granular Casts Urine Mucus Urine Osmolality Ur Random Sodium Ur Random Chloride Ur Random Potassium Stool Occult Blood Ethyl Alcohol Heparin Dep Plt Ab OD Hep-Induced Plt Ab Daniela COVID-19 ([facility]) COVID-19 Clin Com Blood Type Antibody Screen Direct Antiglob Test SUSANNE, Polyspecific Crossmatch 12/29/20 12/29/20 12/29/20 19:59 19:59 21:16 WBC 16.4 H RBC 2.53 L Hgb 8.3 L Hct 26.1 L MCV 103.2 H MCH 32.8 MCHC 31.8 RDW 14.4 Plt Count 108 L MPV 10.0 Immature Gran % (Auto) 0.5 H Neut % (Auto) 92.0 H Lymph % (Auto) 1.5 L [place] % (Auto) 5.8 Eos % (Auto) 0.1 Baso % (Auto) 0.1 Lymph # (Auto) 0.3 L [place] # (Auto) 1.0 Eos # (Auto) 0.0 Baso # (Auto) 0.0 Abs Immat Gran (auto) 0.08 H Absolute Neuts (auto) 15.1 H Absolute Nucleated RBC 0.000 Nucleated RBC % (auto) 0.0 Smear Tech's Comments VERIFIED PT INR APTT PTT (Heparin Protocol) Fibrinogen D-Dimer Hep-Ind Thrombocytop Com See Below O2 Saturation ABG pH at Pt Temp ABG pH (Temp Correct) ABG pCO2 at Pt Temp ABG pCO2 (Temp Corrct ABG pO2 at Pt Temp ABG pO2 (Temp Correct ABG HCO3 ABG Base Excess (Actual) VBG pH VBG pCO2 VBG pO2 VBG HCO3 VBG O2 Saturation VBG Base Excess Sodium 141 Potassium 3.6 Chloride 101 Carbon Dioxide 33 H Anion Gap 11 L BUN 26 H Creatinine 0.80 Estim Creat Clear Calc 78.7 Estimated GFR > 60 POC Glucose Random Glucose 121 H Osmolality Lactic Acid Lactic Acid Fup @ 2Hr Lactic Acid Fup @ 4Hr Calcium 7.7 L Phosphorus Magnesium Total Bilirubin AST ALT Alkaline Phosphatase Troponin I High Sens B-Natriuretic Peptide Total Protein Albumin Lipase TSH Urine Color Urine Appearance Urine pH Ur Specific [place] Urine Protein Urine Glucose (UA) Urine Ketones Urine Blood Urine Nitrite Ur Leukocyte Esterase Urine RBC Urine WBC Ur Squamous Epith Cells Urine Bacteria Hyaline Casts Granular Casts Urine Mucus Urine Osmolality Ur Random Sodium Ur Random Chloride Ur Random Potassium Stool Occult Blood Ethyl Alcohol Heparin Dep Plt Ab OD 0.322 H Hep-Induced Plt Ab Daniela WEAK POSITIVE A COVID-19 ([facility]) COVID-19 Clin Com Blood Type Antibody Screen Direct Antiglob Test SUSANNE, Polyspecific Crossmatch 12/29/20 12/29/20 12/29/20 21:21 23:15 23:27 WBC RBC Hgb Hct MCV MCH MCHC RDW Plt Count MPV Immature Gran % (Auto) Neut % (Auto) Lymph % (Auto) [place] % (Auto) Eos % (Auto) Baso % (Auto) Lymph # (Auto) [place] # (Auto) Eos # (Auto) Baso # (Auto) Abs Immat Gran (auto) Absolute Neuts (auto) Absolute Nucleated RBC Nucleated RBC % (auto) Smear Tech's Comments PT INR APTT 46.5 H D PTT (Heparin Protocol) 97.8 H D Fibrinogen D-Dimer Hep-Ind Thrombocytop Com O2 Saturation ABG pH at Pt Temp ABG pH (Temp Correct) ABG pCO2 at Pt Temp ABG pCO2 (Temp Corrct ABG pO2 at Pt Temp ABG pO2 (Temp Correct ABG HCO3 ABG Base Excess (Actual) VBG pH VBG pCO2 VBG pO2 VBG HCO3 VBG O2 Saturation VBG Base Excess Sodium Potassium Chloride Carbon Dioxide Anion Gap BUN Creatinine Estim Creat Clear Calc Estimated GFR POC Glucose 125 H Random Glucose Osmolality Lactic Acid Lactic Acid Fup @ 2Hr Lactic Acid Fup @ 4Hr Calcium Phosphorus Magnesium Total Bilirubin AST ALT Alkaline Phosphatase Troponin I High Sens B-Natriuretic Peptide Total Protein Albumin Lipase TSH Urine Color Urine Appearance Urine pH Ur Specific [place] Urine Protein Urine Glucose (UA) Urine Ketones Urine Blood Urine Nitrite Ur Leukocyte Esterase Urine RBC Urine WBC Ur Squamous Epith Cells Urine Bacteria Hyaline Casts Granular Casts Urine Mucus Urine Osmolality Ur Random Sodium Ur Random Chloride Ur Random Potassium Stool Occult Blood Ethyl Alcohol Heparin Dep Plt Ab OD Hep-Induced Plt Ab Daniela COVID-19 ([facility]) COVID-19 Clin Com Blood Type Antibody Screen Direct Antiglob Test SUSANNE, Polyspecific Crossmatch 12/29/20 12/30/20 12/30/20 Unknown 02:30 03:02 WBC RBC Hgb Hct MCV MCH MCHC RDW Plt Count MPV Immature Gran % (Auto) Neut % (Auto) Lymph % (Auto) [place] % (Auto) Eos % (Auto) Baso % (Auto) Lymph # (Auto) [place] # (Auto) Eos # (Auto) Baso # (Auto) Abs Immat Gran (auto) Absolute Neuts (auto) Absolute Nucleated RBC Nucleated RBC % (auto) Smear Tech's Comments PT INR APTT 65.3 H* D PTT (Heparin Protocol) Fibrinogen D-Dimer Hep-Ind Thrombocytop Com O2 Saturation Cancelled 96.0 ABG pH at Pt Temp Cancelled 7.23 L ABG pH (Temp Correct) Cancelled 7.23 L ABG pCO2 at Pt Temp Cancelled 90 H* ABG pCO2 (Temp Corrct Cancelled 89 H* ABG pO2 at Pt Temp Cancelled 86 ABG pO2 (Temp Correct Cancelled 86 ABG HCO3 Cancelled 38 H ABG Base Excess (Actual) Cancelled 9.0 VBG pH VBG pCO2 VBG pO2 VBG HCO3 VBG O2 Saturation VBG Base Excess Sodium Potassium Chloride Carbon Dioxide Anion Gap BUN Creatinine Estim Creat Clear Calc Estimated GFR POC Glucose Random Glucose Osmolality Lactic Acid Lactic Acid Fup @ 2Hr Lactic Acid Fup @ 4Hr Calcium Phosphorus Magnesium Total Bilirubin AST ALT Alkaline Phosphatase Troponin I High Sens B-Natriuretic Peptide Total Protein Albumin Lipase TSH Urine Color Urine Appearance Urine pH Ur Specific [place] Urine Protein Urine Glucose (UA) Urine Ketones Urine Blood Urine Nitrite Ur Leukocyte Esterase Urine RBC Urine WBC Ur Squamous Epith Cells Urine Bacteria Hyaline Casts Granular Casts Urine Mucus Urine Osmolality Ur Random Sodium Ur Random Chloride Ur Random Potassium Stool Occult Blood Ethyl Alcohol Heparin Dep Plt Ab OD Hep-Induced Plt Ab Daniela COVID-19 ([facility]) COVID-19 Clin Com Blood Type Antibody Screen Direct Antiglob Test SUSANNE, Polyspecific Crossmatch 12/30/20 12/30/20 12/30/20 04:30 05:20 05:20 WBC RBC Hgb Hct MCV MCH MCHC RDW Plt Count MPV Immature Gran % (Auto) Neut % (Auto) Lymph % (Auto) [place] % (Auto) Eos % (Auto) Baso % (Auto) Lymph # (Auto) [place] # (Auto) Eos # (Auto) Baso # (Auto) Abs Immat Gran (auto) Absolute Neuts (auto) Absolute Nucleated RBC Nucleated RBC % (auto) Smear Tech's Comments PT 40.9 H D INR 3.4 H APTT 70.5 H* 69.7 H* PTT (Heparin Protocol) Fibrinogen D-Dimer Hep-Ind Thrombocytop Com O2 Saturation ABG pH at Pt Temp ABG pH (Temp Correct) ABG pCO2 at Pt Temp ABG pCO2 (Temp Corrct ABG pO2 at Pt Temp ABG pO2 (Temp Correct ABG HCO3 ABG Base Excess (Actual) VBG pH VBG pCO2 VBG pO2 VBG HCO3 VBG O2 Saturation VBG Base Excess Sodium 143 Potassium 4.4 D Chloride 102 Carbon Dioxide 33 H Anion Gap 12 BUN 31 H Creatinine 0.98 Estim Creat Clear Calc 64.3 Estimated GFR 56 POC Glucose Random Glucose 144 H Osmolality Lactic Acid Lactic Acid Fup @ 2Hr Lactic Acid Fup @ 4Hr Calcium 7.6 L Phosphorus 5.4 H Magnesium 2.3 Total Bilirubin AST ALT Alkaline Phosphatase Troponin I High Sens B-Natriuretic Peptide Total Protein Albumin Lipase TSH Urine Color Urine Appearance Urine pH Ur Specific [place] Urine Protein Urine Glucose (UA) Urine Ketones Urine Blood Urine Nitrite Ur Leukocyte Esterase Urine RBC Urine WBC Ur Squamous Epith Cells Urine Bacteria Hyaline Casts Granular Casts Urine Mucus Urine Osmolality Ur Random Sodium Ur Random Chloride Ur Random Potassium Stool Occult Blood Ethyl Alcohol Heparin Dep Plt Ab OD Hep-Induced Plt Ab Daniela COVID-19 ([facility]) COVID-19 Clin Com Blood Type Antibody Screen Direct Antiglob Test SUSANNE, Polyspecific Crossmatch 12/30/20 12/30/20 12/30/20 05:20 05:24 05:45 WBC RBC Hgb Hct MCV MCH MCHC RDW Plt Count MPV Immature Gran % (Auto) Neut % (Auto) Lymph % (Auto) [place] % (Auto) Eos % (Auto) Baso % (Auto) Lymph # (Auto) [place] # (Auto) Eos # (Auto) Baso # (Auto) Abs Immat Gran (auto) Absolute Neuts (auto) Absolute Nucleated RBC Nucleated RBC % (auto) Smear Tech's Comments PT INR APTT PTT (Heparin Protocol) Fibrinogen D-Dimer Hep-Ind Thrombocytop Com O2 Saturation ABG pH at Pt Temp ABG pH (Temp Correct) ABG pCO2 at Pt Temp ABG pCO2 (Temp Corrct ABG pO2 at Pt Temp ABG pO2 (Temp Correct ABG HCO3 ABG Base Excess (Actual) VBG pH 7.29 L VBG pCO2 84 VBG pO2 103 VBG HCO3 40 H VBG O2 Saturation 97.0 VBG Base Excess 11.8 Sodium Potassium Chloride Carbon Dioxide Anion Gap BUN Creatinine Estim Creat Clear Calc Estimated GFR POC Glucose 137 H Random Glucose Osmolality Lactic Acid Lactic Acid Fup @ 2Hr Lactic Acid Fup @ 4Hr Calcium Phosphorus Magnesium Total Bilirubin AST ALT Alkaline Phosphatase Troponin I High Sens B-Natriuretic Peptide 306 H Total Protein Albumin Lipase TSH Urine Color Urine Appearance Urine pH Ur Specific [place] Urine Protein Urine Glucose (UA) Urine Ketones Urine Blood Urine Nitrite Ur Leukocyte Esterase Urine RBC Urine WBC Ur Squamous Epith Cells Urine Bacteria Hyaline Casts Granular Casts Urine Mucus Urine Osmolality Ur Random Sodium Ur Random Chloride Ur Random Potassium Stool Occult Blood Ethyl Alcohol Heparin Dep Plt Ab OD Hep-Induced Plt Ab Daniela COVID-19 ([facility]) COVID-19 Clin Com Blood Type Antibody Screen Direct Antiglob Test SUSANNE, Polyspecific Crossmatch 12/30/20 12/30/20 12/30/20 06:20 09:15 11:11 WBC RBC Hgb Hct MCV MCH MCHC RDW Plt Count MPV Immature Gran % (Auto) Neut % (Auto) Lymph % (Auto) [place] % (Auto) Eos % (Auto) Baso % (Auto) Lymph # (Auto) [place] # (Auto) Eos # (Auto) Baso # (Auto) Abs Immat Gran (auto) Absolute Neuts (auto) Absolute Nucleated RBC Nucleated RBC % (auto) Smear Tech's Comments PT INR APTT PTT (Heparin Protocol) Fibrinogen D-Dimer Hep-Ind Thrombocytop Com O2 Saturation ABG pH at Pt Temp ABG pH (Temp Correct) ABG pCO2 at Pt Temp ABG pCO2 (Temp Corrct ABG pO2 at Pt Temp ABG pO2 (Temp Correct ABG HCO3 ABG Base Excess (Actual) VBG pH 7.22 L VBG pCO2 96 VBG pO2 57 VBG HCO3 40 H VBG O2 Saturation 83.0 VBG Base Excess 10.5 Sodium Potassium Chloride Carbon Dioxide Anion Gap BUN Creatinine Estim Creat Clear Calc Estimated GFR POC Glucose Random Glucose Osmolality Lactic Acid Lactic Acid Fup @ 2Hr Lactic Acid Fup @ 4Hr Calcium Phosphorus Magnesium Total Bilirubin AST ALT Alkaline Phosphatase Troponin I High Sens B-Natriuretic Peptide Total Protein Albumin Lipase TSH Urine Color Urine Appearance Urine pH Ur Specific [place] Urine Protein Urine Glucose (UA) Urine Ketones Urine Blood Urine Nitrite Ur Leukocyte Esterase Urine RBC Urine WBC Ur Squamous Epith Cells Urine Bacteria Hyaline Casts Granular Casts Urine Mucus Urine Osmolality Ur Random Sodium Ur Random Chloride Ur Random Potassium Stool Occult Blood Ethyl Alcohol Heparin Dep Plt Ab OD Hep-Induced Plt Ab Daniela COVID-19 ([facility]) COVID-19 Clin Com Blood Type O Positive Antibody Screen NEGATIVE Direct Antiglob Test NEGATIVE SUSANNE, Polyspecific NEGATIVE Crossmatch See Detail 12/30/20 12/30/20 12/30/20 12:17 12:35 15:19 WBC 20.7 H RBC 2.03 L Hgb 7.2 L 6.6 L* Hct 23.4 L 21.2 L MCV 104.4 H MCH 32.5 MCHC 31.1 RDW 14.5 Plt Count 131 L MPV 10.5 Immature Gran % (Auto) 0.7 H Neut % (Auto) 92.7 H Lymph % (Auto) 1.2 L [place] % (Auto) 5.3 Eos % (Auto) 0.0 Baso % (Auto) 0.1 Lymph # (Auto) 0.3 L [place] # (Auto) 1.1 Eos # (Auto) 0.0 Baso # (Auto) 0.0 Abs Immat Gran (auto) 0.15 H Absolute Neuts (auto) 19.2 H Absolute Nucleated RBC 0.000 Nucleated RBC % (auto) 0.0 Smear Tech's Comments VERIFIED PT INR APTT PTT (Heparin Protocol) Fibrinogen D-Dimer Hep-Ind Thrombocytop Com O2 Saturation ABG pH at Pt Temp ABG pH (Temp Correct) ABG pCO2 at Pt Temp ABG pCO2 (Temp Corrct ABG pO2 at Pt Temp ABG pO2 (Temp Correct ABG HCO3 ABG Base Excess (Actual) VBG pH VBG pCO2 VBG pO2 VBG HCO3 VBG O2 Saturation VBG Base Excess Sodium Potassium Chloride Carbon Dioxide Anion Gap BUN Creatinine Estim Creat Clear Calc Estimated GFR POC Glucose 148 H Random Glucose Osmolality Lactic Acid Lactic Acid Fup @ 2Hr Lactic Acid Fup @ 4Hr Calcium Phosphorus Magnesium Total Bilirubin AST ALT Alkaline Phosphatase Troponin I High Sens B-Natriuretic Peptide Total Protein Albumin Lipase TSH Urine Color Urine Appearance Urine pH Ur Specific [place] Urine Protein Urine Glucose (UA) Urine Ketones Urine Blood Urine Nitrite Ur Leukocyte Esterase Urine RBC Urine WBC Ur Squamous Epith Cells Urine Bacteria Hyaline Casts Granular Casts Urine Mucus Urine Osmolality Ur Random Sodium Ur Random Chloride Ur Random Potassium Stool Occult Blood Ethyl Alcohol Heparin Dep Plt Ab OD Hep-Induced Plt Ab Daniela COVID-19 ([facility]) COVID-19 Clin Com Blood Type Antibody Screen Direct Antiglob Test SUSANNE, Polyspecific Crossmatch 12/30/20 12/30/20 12/30/20 15:19 18:20 21:03 WBC 17.3 H RBC 2.65 L D Hgb 8.2 L D Hct 25.5 L D MCV 96.2 D MCH 30.9 MCHC 32.2 RDW 17.0 H Plt Count 109 L MPV 10.4 Immature Gran % (Auto) 0.6 H Neut % (Auto) 92.0 H Lymph % (Auto) 2.0 L [place] % (Auto) 5.3 Eos % (Auto) 0.0 Baso % (Auto) 0.1 Lymph # (Auto) 0.4 L [place] # (Auto) 0.9 Eos # (Auto) 0.0 Baso # (Auto) 0.0 Abs Immat Gran (auto) 0.11 H Absolute Neuts (auto) 16.0 H Absolute Nucleated RBC 0.000 Nucleated RBC % (auto) 0.0 Smear Tech's Comments PT 29.3 H D INR 2.4 H APTT 41.5 H D PTT (Heparin Protocol) Fibrinogen 615 D-Dimer Hep-Ind Thrombocytop Com O2 Saturation ABG pH at Pt Temp ABG pH (Temp Correct) ABG pCO2 at Pt Temp ABG pCO2 (Temp Corrct ABG pO2 at Pt Temp ABG pO2 (Temp Correct ABG HCO3 ABG Base Excess (Actual) VBG pH VBG pCO2 VBG pO2 VBG HCO3 VBG O2 Saturation VBG Base Excess Sodium Potassium Chloride Carbon Dioxide Anion Gap BUN Creatinine Estim Creat Clear Calc Estimated GFR POC Glucose 148 H Random Glucose Osmolality Lactic Acid Lactic Acid Fup @ 2Hr Lactic Acid Fup @ 4Hr Calcium Phosphorus Magnesium Total Bilirubin AST ALT Alkaline Phosphatase Troponin I High Sens B-Natriuretic Peptide Total Protein Albumin Lipase TSH Urine Color Urine Appearance Urine pH Ur Specific [place] Urine Protein Urine Glucose (UA) Urine Ketones Urine Blood Urine Nitrite Ur Leukocyte Esterase Urine RBC Urine WBC Ur Squamous Epith Cells Urine Bacteria Hyaline Casts Granular Casts Urine Mucus Urine Osmolality Ur Random Sodium Ur Random Chloride Ur Random Potassium Stool Occult Blood Ethyl Alcohol Heparin Dep Plt Ab OD Hep-Induced Plt Ab Daniela COVID-19 ([facility]) COVID-19 Clin Com Blood Type Antibody Screen Direct Antiglob Test SUSANNE, Polyspecific Crossmatch 12/30/20 12/30/20 12/31/20 21:04 22:29 00:06 WBC RBC Hgb Hct MCV MCH MCHC RDW Plt Count MPV Immature Gran % (Auto) Neut % (Auto) Lymph % (Auto) [place] % (Auto) Eos % (Auto) Baso % (Auto) Lymph # (Auto) [place] # (Auto) Eos # (Auto) Baso # (Auto) Abs Immat Gran (auto) Absolute Neuts (auto) Absolute Nucleated RBC Nucleated RBC % (auto) Smear Tech's Comments PT 22.0 H D INR 1.8 H APTT 33.4 PTT (Heparin Protocol) Fibrinogen D-Dimer Hep-Ind Thrombocytop Com O2 Saturation 96.0 ABG pH at Pt Temp 7.56 H ABG pH (Temp Correct) 7.54 H ABG pCO2 at Pt Temp 38 ABG pCO2 (Temp Corrct 40 ABG pO2 at Pt Temp 71 L ABG pO2 (Temp Correct 77 L ABG HCO3 34 H ABG Base Excess (Actual) 11.6 VBG pH VBG pCO2 VBG pO2 VBG HCO3 VBG O2 Saturation VBG Base Excess Sodium Potassium Chloride Carbon Dioxide Anion Gap BUN Creatinine Estim Creat Clear Calc Estimated GFR POC Glucose 150 H Random Glucose Osmolality Lactic Acid Lactic Acid Fup @ 2Hr Lactic Acid Fup @ 4Hr Calcium Phosphorus Magnesium Total Bilirubin AST ALT Alkaline Phosphatase Troponin I High Sens B-Natriuretic Peptide Total Protein Albumin Lipase TSH Urine Color Urine Appearance Urine pH Ur Specific [place] Urine Protein Urine Glucose (UA) Urine Ketones Urine Blood Urine Nitrite Ur Leukocyte Esterase Urine RBC Urine WBC Ur Squamous Epith Cells Urine Bacteria Hyaline Casts Granular Casts Urine Mucus Urine Osmolality Ur Random Sodium Ur Random Chloride Ur Random Potassium Stool Occult Blood Ethyl Alcohol Heparin Dep Plt Ab OD Hep-Induced Plt Ab Daniela COVID-19 ([facility]) COVID-19 Clin Com Blood Type Antibody Screen Direct Antiglob Test SUSANNE, Polyspecific Crossmatch 12/31/20 12/31/20 12/31/20 00:10 04:00 05:10 WBC 17.7 H 16.9 H 16.1 H RBC 2.57 L 2.65 L 2.57 L Hgb 8.1 L 8.3 L 8.0 L Hct 24.9 L 25.6 L 25.0 L MCV 96.9 96.6 97.3 MCH 31.5 31.3 31.1 MCHC 32.5 32.4 32.0 RDW 17.0 H 17.0 H 16.8 H Plt Count 131 L 138 L 138 L MPV 10.9 10.5 10.8 Immature Gran % (Auto) 0.7 H 0.7 H 0.7 H Neut % (Auto) 91.3 H 92.0 H 91.4 H Lymph % (Auto) 1.5 L 1.8 L 1.8 L [place] % (Auto) 6.4 5.4 6.0 Eos % (Auto) 0.0 0.0 0.0 Baso % (Auto) 0.1 0.1 0.1 Lymph # (Auto) 0.3 L 0.3 L 0.3 L [place] # (Auto) 1.1 0.9 1.0 Eos # (Auto) 0.0 0.0 0.0 Baso # (Auto) 0.0 0.0 0.0 Abs Immat Gran (auto) 0.13 H 0.11 H 0.12 H Absolute Neuts (auto) 16.1 H 15.5 H 14.8 H Absolute Nucleated RBC 0.020 H 0.000 0.000 Nucleated RBC % (auto) 0.1 0.0 0.0 Smear Tech's Comments VERIFIED PT INR APTT PTT (Heparin Protocol) Fibrinogen D-Dimer Hep-Ind Thrombocytop Com O2 Saturation ABG pH at Pt Temp ABG pH (Temp Correct) ABG pCO2 at Pt Temp ABG pCO2 (Temp Corrct ABG pO2 at Pt Temp ABG pO2 (Temp Correct ABG HCO3 ABG Base Excess (Actual) VBG pH VBG pCO2 VBG pO2 VBG HCO3 VBG O2 Saturation VBG Base Excess Sodium Potassium Chloride Carbon Dioxide Anion Gap BUN Creatinine Estim Creat Clear Calc Estimated GFR POC Glucose Random Glucose Osmolality Lactic Acid Lactic Acid Fup @ 2Hr Lactic Acid Fup @ 4Hr Calcium Phosphorus Magnesium Total Bilirubin AST ALT Alkaline Phosphatase Troponin I High Sens B-Natriuretic Peptide Total Protein Albumin Lipase TSH Urine Color Urine Appearance Urine pH Ur Specific [place] Urine Protein Urine Glucose (UA) Urine Ketones Urine Blood Urine Nitrite Ur Leukocyte Esterase Urine RBC Urine WBC Ur Squamous Epith Cells Urine Bacteria Hyaline Casts Granular Casts Urine Mucus Urine Osmolality Ur Random Sodium Ur Random Chloride Ur Random Potassium Stool Occult Blood Ethyl Alcohol Heparin Dep Plt Ab OD Hep-Induced Plt Ab Daniela COVID-19 ([facility]) COVID-19 Clin Com Blood Type Antibody Screen Direct Antiglob Test SUSANNE, Polyspecific Crossmatch 12/31/20 12/31/20 12/31/20 05:10 05:10 05:10 WBC RBC Hgb Hct MCV MCH MCHC RDW Plt Count MPV Immature Gran % (Auto) Neut % (Auto) Lymph % (Auto) [place] % (Auto) Eos % (Auto) Baso % (Auto) Lymph # (Auto) [place] # (Auto) Eos # (Auto) Baso # (Auto) Abs Immat Gran (auto) Absolute Neuts (auto) Absolute Nucleated RBC Nucleated RBC % (auto) Smear Tech's Comments PT 17.0 H D INR 1.4 H APTT 27.3 PTT (Heparin Protocol) Fibrinogen D-Dimer Hep-Ind Thrombocytop Com O2 Saturation ABG pH at Pt Temp ABG pH (Temp Correct) ABG pCO2 at Pt Temp ABG pCO2 (Temp Corrct ABG pO2 at Pt Temp ABG pO2 (Temp Correct ABG HCO3 ABG Base Excess (Actual) VBG pH VBG pCO2 VBG pO2 VBG HCO3 VBG O2 Saturation VBG Base Excess Sodium 145 Potassium 3.6 Chloride 105 Carbon Dioxide 34 H Anion Gap 10 L BUN 31 H Creatinine 0.88 Estim Creat Clear Calc 71.6 Estimated GFR > 60 POC Glucose Random Glucose 147 H Osmolality Lactic Acid Lactic Acid Fup @ 2Hr Lactic Acid Fup @ 4Hr Calcium 7.6 L Phosphorus 2.4 L Magnesium 2.2 Total Bilirubin AST ALT Alkaline Phosphatase Troponin I High Sens B-Natriuretic Peptide 557 H Total Protein Albumin Lipase TSH Urine Color Urine Appearance Urine pH Ur Specific [place] Urine Protein Urine Glucose (UA) Urine Ketones Urine Blood Urine Nitrite Ur Leukocyte Esterase Urine RBC Urine WBC Ur Squamous Epith Cells Urine Bacteria Hyaline Casts Granular Casts Urine Mucus Urine Osmolality Ur Random Sodium Ur Random Chloride Ur Random Potassium Stool Occult Blood Ethyl Alcohol Heparin Dep Plt Ab OD Hep-Induced Plt Ab Daniela COVID-19 ([facility]) COVID-19 Clin Com Blood Type Antibody Screen Direct Antiglob Test SUSANNE, Polyspecific Crossmatch 12/31/20 12/31/20 12/31/20 05:10 12:25 13:21 WBC 15.0 H RBC 2.47 L Hgb 7.7 L Hct 24.1 L MCV 97.6 MCH 31.2 MCHC 32.0 RDW 16.9 H Plt Count 135 L MPV 10.7 Immature Gran % (Auto) 0.9 H Neut % (Auto) 89.4 H Lymph % (Auto) 2.2 L [place] % (Auto) 7.5 Eos % (Auto) 0.0 Baso % (Auto) 0.0 Lymph # (Auto) 0.3 L [place] # (Auto) 1.1 Eos # (Auto) 0.0 Baso # (Auto) 0.0 Abs Immat Gran (auto) 0.13 H Absolute Neuts (auto) 13.5 H Absolute Nucleated RBC 0.020 H Nucleated RBC % (auto) 0.1 Smear Tech's Comments VERIFIED PT INR APTT PTT (Heparin Protocol) Fibrinogen D-Dimer Hep-Ind Thrombocytop Com O2 Saturation ABG pH at Pt Temp ABG pH (Temp Correct) ABG pCO2 at Pt Temp ABG pCO2 (Temp Corrct ABG pO2 at Pt Temp ABG pO2 (Temp Correct ABG HCO3 ABG Base Excess (Actual) VBG pH 7.47 H VBG pCO2 51 VBG pO2 51 VBG HCO3 37 H VBG O2 Saturation 85.0 VBG Base Excess 12.8 Sodium Potassium Chloride Carbon Dioxide Anion Gap BUN Creatinine Estim Creat Clear Calc Estimated GFR POC Glucose 146 H Random Glucose Osmolality Lactic Acid Lactic Acid Fup @ 2Hr Lactic Acid Fup @ 4Hr Calcium Phosphorus Magnesium Total Bilirubin AST ALT Alkaline Phosphatase Troponin I High Sens B-Natriuretic Peptide Total Protein Albumin Lipase TSH Urine Color Urine Appearance Urine pH Ur Specific [place] Urine Protein Urine Glucose (UA) Urine Ketones Urine Blood Urine Nitrite Ur Leukocyte Esterase Urine RBC Urine WBC Ur Squamous Epith Cells Urine Bacteria Hyaline Casts Granular Casts Urine Mucus Urine Osmolality Ur Random Sodium Ur Random Chloride Ur Random Potassium Stool Occult Blood Ethyl Alcohol Heparin Dep Plt Ab OD Hep-Induced Plt Ab Daniela COVID-19 ([facility]) COVID-19 Clin Com Blood Type Antibody Screen Direct Antiglob Test SUSANNE, Polyspecific Crossmatch 12/31/20 12/31/20 12/31/20 16:16 18:02 21:00 WBC 14.5 H 14.7 H RBC 2.54 L 2.50 L Hgb 7.8 L 7.9 L Hct 24.8 L 24.6 L MCV 97.6 98.4 H MCH 30.7 31.6 MCHC 31.5 32.1 RDW 17.0 H 16.7 H Plt Count 127 L 127 L MPV 10.1 10.6 Immature Gran % (Auto) 1.0 H 1.4 H Neut % (Auto) 88.3 H 86.7 H Lymph % (Auto) 2.5 L 3.3 L [place] % (Auto) 8.1 8.5 Eos % (Auto) 0.0 0.0 Baso % (Auto) 0.1 0.1 Lymph # (Auto) 0.4 L 0.5 L [place] # (Auto) 1.2 1.2 Eos # (Auto) 0.0 0.0 Baso # (Auto) 0.0 0.0 Abs Immat Gran (auto) 0.15 H 0.20 H Absolute Neuts (auto) 12.8 H 12.7 H Absolute Nucleated RBC 0.020 H 0.030 H Nucleated RBC % (auto) 0.1 0.2 Smear Tech's Comments VERIFIED PT INR APTT PTT (Heparin Protocol) Fibrinogen D-Dimer Hep-Ind Thrombocytop Com O2 Saturation ABG pH at Pt Temp ABG pH (Temp Correct) ABG pCO2 at Pt Temp ABG pCO2 (Temp Corrct ABG pO2 at Pt Temp ABG pO2 (Temp Correct ABG HCO3 ABG Base Excess (Actual) VBG pH VBG pCO2 VBG pO2 VBG HCO3 VBG O2 Saturation VBG Base Excess Sodium Potassium Chloride Carbon Dioxide Anion Gap BUN Creatinine Estim Creat Clear Calc Estimated GFR POC Glucose 148 H Random Glucose Osmolality Lactic Acid Lactic Acid Fup @ 2Hr Lactic Acid Fup @ 4Hr Calcium Phosphorus Magnesium Total Bilirubin AST ALT Alkaline Phosphatase Troponin I High Sens B-Natriuretic Peptide Total Protein Albumin Lipase TSH Urine Color Urine Appearance Urine pH Ur Specific [place] Urine Protein Urine Glucose (UA) Urine Ketones Urine Blood Urine Nitrite Ur Leukocyte Esterase Urine RBC Urine WBC Ur Squamous Epith Cells Urine Bacteria Hyaline Casts Granular Casts Urine Mucus Urine Osmolality Ur Random Sodium Ur Random Chloride Ur Random Potassium Stool Occult Blood Ethyl Alcohol Heparin Dep Plt Ab OD Hep-Induced Plt Ab Daniela COVID-19 ([facility]) COVID-19 Clin Com Blood Type Antibody Screen Direct Antiglob Test SUSANNE, Polyspecific Crossmatch 12/31/20 12/31/20 12/31/20 21:43 21:44 21:44 WBC RBC Hgb Hct MCV MCH MCHC RDW Plt Count MPV Immature Gran % (Auto) Neut % (Auto) Lymph % (Auto) [place] % (Auto) Eos % (Auto) Baso % (Auto) Lymph # (Auto) [place] # (Auto) Eos # (Auto) Baso # (Auto) Abs Immat Gran (auto) Absolute Neuts (auto) Absolute Nucleated RBC Nucleated RBC % (auto) Smear Tech's Comments PT INR APTT PTT (Heparin Protocol) Fibrinogen D-Dimer Hep-Ind Thrombocytop Com O2 Saturation ABG pH at Pt Temp ABG pH (Temp Correct) ABG pCO2 at Pt Temp ABG pCO2 (Temp Corrct ABG pO2 at Pt Temp ABG pO2 (Temp Correct ABG HCO3 ABG Base Excess (Actual) VBG pH 7.50 H VBG pCO2 49 VBG pO2 47 VBG HCO3 38 H VBG O2 Saturation 81.0 VBG Base Excess 14.3 Sodium 145 Potassium 3.7 Chloride 106 Carbon Dioxide 31 H Anion Gap 12 BUN 27 H Creatinine 0.73 Estim Creat Clear Calc 86.3 Estimated GFR > 60 POC Glucose Random Glucose 152 H Osmolality Lactic Acid Lactic Acid Fup @ 2Hr Lactic Acid Fup @ 4Hr Calcium 7.5 L Phosphorus Magnesium Total Bilirubin AST ALT Alkaline Phosphatase Troponin I High Sens B-Natriuretic Peptide 925 H Total Protein Albumin Lipase TSH Urine Color Urine Appearance Urine pH Ur Specific [place] Urine Protein Urine Glucose (UA) Urine Ketones Urine Blood Urine Nitrite Ur Leukocyte Esterase Urine RBC Urine WBC Ur Squamous Epith Cells Urine Bacteria Hyaline Casts Granular Casts Urine Mucus Urine Osmolality Ur Random Sodium Ur Random Chloride Ur Random Potassium Stool Occult Blood Ethyl Alcohol Heparin Dep Plt Ab OD Hep-Induced Plt Ab Daniela COVID-19 ([facility]) COVID-19 Clin Com Blood Type Antibody Screen Direct Antiglob Test SUSANNE, Polyspecific Crossmatch 01/01/21 01/01/21 01/01/21 00:29 05:00 05:00 WBC RBC Hgb Hct MCV MCH MCHC RDW Plt Count MPV Immature Gran % (Auto) Neut % (Auto) Lymph % (Auto) [place] % (Auto) Eos % (Auto) Baso % (Auto) Lymph # (Auto) [place] # (Auto) Eos # (Auto) Baso # (Auto) Abs Immat Gran (auto) Absolute Neuts (auto) Absolute Nucleated RBC Nucleated RBC % (auto) Smear Tech's Comments PT 14.1 H INR 1.2 H APTT 24.5 PTT (Heparin Protocol) Fibrinogen D-Dimer Hep-Ind Thrombocytop Com O2 Saturation ABG pH at Pt Temp ABG pH (Temp Correct) ABG pCO2 at Pt Temp ABG pCO2 (Temp Corrct ABG pO2 at Pt Temp ABG pO2 (Temp Correct ABG HCO3 ABG Base Excess (Actual) VBG pH VBG pCO2 VBG pO2 VBG HCO3 VBG O2 Saturation VBG Base Excess Sodium 147 H Potassium 3.4 Chloride 107 Carbon Dioxide 32 H Anion Gap 11 L BUN 26 H Creatinine 0.76 Estim Creat Clear Calc 82.9 Estimated GFR > 60 POC Glucose 140 H Random Glucose 131 H Osmolality Lactic Acid Lactic Acid Fup @ 2Hr Lactic Acid Fup @ 4Hr Calcium 7.3 L Phosphorus 1.9 L Magnesium 2.0 Total Bilirubin AST ALT Alkaline Phosphatase Troponin I High Sens B-Natriuretic Peptide Total Protein Albumin Lipase TSH Urine Color Urine Appearance Urine pH Ur Specific [place] Urine Protein Urine Glucose (UA) Urine Ketones Urine Blood Urine Nitrite Ur Leukocyte Esterase Urine RBC Urine WBC Ur Squamous Epith Cells Urine Bacteria Hyaline Casts Granular Casts Urine Mucus Urine Osmolality Ur Random Sodium Ur Random Chloride Ur Random Potassium Stool Occult Blood Ethyl Alcohol Heparin Dep Plt Ab OD Hep-Induced Plt Ab Daniela COVID-19 ([facility]) COVID-19 Clin Com Blood Type Antibody Screen Direct Antiglob Test SUSANNE, Polyspecific Crossmatch 01/01/21 01/01/21 01/01/21 05:00 05:04 06:07 WBC 12.6 H RBC 2.42 L Hgb 7.4 L Hct 23.9 L MCV 98.8 H MCH 30.6 MCHC 31.0 RDW 16.6 H Plt Count 125 L MPV 10.9 Immature Gran % (Auto) 1.5 H Neut % (Auto) 85.0 H Lymph % (Auto) 3.6 L [place] % (Auto) 9.6 Eos % (Auto) 0.2 Baso % (Auto) 0.1 Lymph # (Auto) 0.5 L [place] # (Auto) 1.2 Eos # (Auto) 0.0 Baso # (Auto) 0.0 Abs Immat Gran (auto) 0.19 H Absolute Neuts (auto) 10.7 H Absolute Nucleated RBC 0.040 H Nucleated RBC % (auto) 0.3 H Smear Tech's Comments VERIFIED PT INR APTT PTT (Heparin Protocol) Fibrinogen D-Dimer Hep-Ind Thrombocytop Com O2 Saturation ABG pH at Pt Temp ABG pH (Temp Correct) ABG pCO2 at Pt Temp ABG pCO2 (Temp Corrct ABG pO2 at Pt Temp ABG pO2 (Temp Correct ABG HCO3 ABG Base Excess (Actual) VBG pH 7.48 H VBG pCO2 55 VBG pO2 41 VBG HCO3 41 H VBG O2 Saturation 69.0 VBG Base Excess 16.4 Sodium Potassium Chloride Carbon Dioxide Anion Gap BUN Creatinine Estim Creat Clear Calc Estimated GFR POC Glucose Random Glucose Osmolality Lactic Acid Lactic Acid Fup @ 2Hr Lactic Acid Fup @ 4Hr Calcium Phosphorus Magnesium Total Bilirubin AST ALT Alkaline Phosphatase Troponin I High Sens B-Natriuretic Peptide 839 H Total Protein Albumin Lipase TSH Urine Color Urine Appearance Urine pH Ur Specific [place] Urine Protein Urine Glucose (UA) Urine Ketones Urine Blood Urine Nitrite Ur Leukocyte Esterase Urine RBC Urine WBC Ur Squamous Epith Cells Urine Bacteria Hyaline Casts Granular Casts Urine Mucus Urine Osmolality Ur Random Sodium Ur Random Chloride Ur Random Potassium Stool Occult Blood Ethyl Alcohol Heparin Dep Plt Ab OD Hep-Induced Plt Ab Daniela COVID-19 ([facility]) COVID-19 Clin Com Blood Type Antibody Screen Direct Antiglob Test SUSANNE, Polyspecific Crossmatch 01/01/21 01/01/21 01/01/21 08:57 12:51 16:47 WBC 11.6 H RBC 2.87 L Hgb 8.8 L Hct 28.1 L MCV 97.9 MCH 30.7 MCHC 31.3 RDW 16.3 H Plt Count 111 L MPV 10.7 Immature Gran % (Auto) 1.7 H Neut % (Auto) 87.4 H Lymph % (Auto) 2.8 L [place] % (Auto) 7.7 Eos % (Auto) 0.3 Baso % (Auto) 0.1 Lymph # (Auto) 0.3 L [place] # (Auto) 0.9 Eos # (Auto) 0.0 Baso # (Auto) 0.0 Abs Immat Gran (auto) 0.20 H Absolute Neuts (auto) 10.1 H Absolute Nucleated RBC 0.060 H Nucleated RBC % (auto) 0.5 H Smear Tech's Comments VERIFIED PT INR APTT PTT (Heparin Protocol) Fibrinogen D-Dimer Hep-Ind Thrombocytop Com O2 Saturation ABG pH at Pt Temp ABG pH (Temp Correct) ABG pCO2 at Pt Temp ABG pCO2 (Temp Corrct ABG pO2 at Pt Temp ABG pO2 (Temp Correct ABG HCO3 ABG Base Excess (Actual) VBG pH VBG pCO2 VBG pO2 VBG HCO3 VBG O2 Saturation VBG Base Excess Sodium Potassium Chloride Carbon Dioxide Anion Gap BUN Creatinine Estim Creat Clear Calc Estimated GFR POC Glucose 128 H 129 H Random Glucose Osmolality Lactic Acid Lactic Acid Fup @ 2Hr Lactic Acid Fup @ 4Hr Calcium Phosphorus Magnesium Total Bilirubin AST ALT Alkaline Phosphatase Troponin I High Sens B-Natriuretic Peptide Total Protein Albumin Lipase TSH Urine Color Urine Appearance Urine pH Ur Specific [place] Urine Protein Urine Glucose (UA) Urine Ketones Urine Blood Urine Nitrite Ur Leukocyte Esterase Urine RBC Urine WBC Ur Squamous Epith Cells Urine Bacteria Hyaline Casts Granular Casts Urine Mucus Urine Osmolality Ur Random Sodium Ur Random Chloride Ur Random Potassium Stool Occult Blood Ethyl Alcohol Heparin Dep Plt Ab OD Hep-Induced Plt Ab Daniela COVID-19 ([facility]) COVID-19 Clin Com Blood Type Antibody Screen Direct Antiglob Test SUSANNE, Polyspecific Crossmatch 01/01/21 01/01/21 01/01/21 16:47 16:54 17:40 WBC RBC Hgb Hct MCV MCH MCHC RDW Plt Count MPV Immature Gran % (Auto) Neut % (Auto) Lymph % (Auto) [place] % (Auto) Eos % (Auto) Baso % (Auto) Lymph # (Auto) [place] # (Auto) Eos # (Auto) Baso # (Auto) Abs Immat Gran (auto) Absolute Neuts (auto) Absolute Nucleated RBC Nucleated RBC % (auto) Smear Tech's Comments PT INR APTT PTT (Heparin Protocol) Fibrinogen D-Dimer Hep-Ind Thrombocytop Com O2 Saturation ABG pH at Pt Temp ABG pH (Temp Correct) ABG pCO2 at Pt Temp ABG pCO2 (Temp Corrct ABG pO2 at Pt Temp ABG pO2 (Temp Correct ABG HCO3 ABG Base Excess (Actual) VBG pH 7.52 H VBG pCO2 45 VBG pO2 47 VBG HCO3 38 H VBG O2 Saturation 78.0 VBG Base Excess 13.9 Sodium 146 H Potassium 4.2 D Chloride 108 Carbon Dioxide 31 H Anion Gap 11 L BUN 23 H Creatinine 0.67 Estim Creat Clear Calc 94.0 Estimated GFR > 60 POC Glucose 137 H Random Glucose 143 H Osmolality Lactic Acid Lactic Acid Fup @ 2Hr Lactic Acid Fup @ 4Hr Calcium 7.2 L Phosphorus Magnesium Total Bilirubin AST ALT Alkaline Phosphatase Troponin I High Sens B-Natriuretic Peptide Total Protein Albumin Lipase TSH Urine Color Urine Appearance Urine pH Ur Specific [place] Urine Protein Urine Glucose (UA) Urine Ketones Urine Blood Urine Nitrite Ur Leukocyte Esterase Urine RBC Urine WBC Ur Squamous Epith Cells Urine Bacteria Hyaline Casts Granular Casts Urine Mucus Urine Osmolality Ur Random Sodium Ur Random Chloride Ur Random Potassium Stool Occult Blood Ethyl Alcohol Heparin Dep Plt Ab OD Hep-Induced Plt Ab Daniela COVID-19 ([facility]) COVID-19 Clin Com Blood Type Antibody Screen Direct Antiglob Test SUSANNE, Polyspecific Crossmatch 01/01/21 01/01/21 01/01/21 21:00 21:00 23:38 WBC RBC Hgb Hct MCV MCH MCHC RDW Plt Count MPV Immature Gran % (Auto) Neut % (Auto) Lymph % (Auto) [place] % (Auto) Eos % (Auto) Baso % (Auto) Lymph # (Auto) [place] # (Auto) Eos # (Auto) Baso # (Auto) Abs Immat Gran (auto) Absolute Neuts (auto) Absolute Nucleated RBC Nucleated RBC % (auto) Smear Tech's Comments PT INR APTT PTT (Heparin Protocol) Fibrinogen D-Dimer Hep-Ind Thrombocytop Com O2 Saturation ABG pH at Pt Temp ABG pH (Temp Correct) ABG pCO2 at Pt Temp ABG pCO2 (Temp Corrct ABG pO2 at Pt Temp ABG pO2 (Temp Correct ABG HCO3 ABG Base Excess (Actual) VBG pH VBG pCO2 VBG pO2 VBG HCO3 VBG O2 Saturation VBG Base Excess Sodium 145 Potassium 4.3 Chloride 108 Carbon Dioxide 31 H Anion Gap 10 L BUN 21 H Creatinine 0.65 Estim Creat Clear Calc 96.9 Estimated GFR > 60 POC Glucose 130 H Random Glucose 142 H Osmolality Lactic Acid Lactic Acid Fup @ 2Hr Lactic Acid Fup @ 4Hr Calcium 7.1 L Phosphorus Magnesium Total Bilirubin AST ALT Alkaline Phosphatase Troponin I High Sens B-Natriuretic Peptide Total Protein Albumin 2.4 L D Lipase TSH Urine Color Urine Appearance Urine pH Ur Specific [place] Urine Protein Urine Glucose (UA) Urine Ketones Urine Blood Urine Nitrite Ur Leukocyte Esterase Urine RBC Urine WBC Ur Squamous Epith Cells Urine Bacteria Hyaline Casts Granular Casts Urine Mucus Urine Osmolality Ur Random Sodium Ur Random Chloride Ur Random Potassium Stool Occult Blood Ethyl Alcohol Heparin Dep Plt Ab OD Hep-Induced Plt Ab Daniela COVID-19 ([facility]) COVID-19 Clin Com Blood Type Antibody Screen Direct Antiglob Test SUSANNE, Polyspecific Crossmatch 01/02/21 01/02/21 01/02/21 01:59 05:11 05:11 WBC 10.1 RBC 2.71 L Hgb 8.3 L Hct 26.6 L MCV 98.2 H MCH 30.6 MCHC 31.2 RDW 16.2 H Plt Count 108 L MPV 10.8 Immature Gran % (Auto) 1.9 H Neut % (Auto) 86.2 H Lymph % (Auto) 3.6 L [place] % (Auto) 7.8 Eos % (Auto) 0.4 Baso % (Auto) 0.1 Lymph # (Auto) 0.4 L [place] # (Auto) 0.8 Eos # (Auto) 0.0 Baso # (Auto) 0.0 Abs Immat Gran (auto) 0.19 H Absolute Neuts (auto) 8.7 H Absolute Nucleated RBC 0.050 H Nucleated RBC % (auto) 0.5 H Smear Tech's Comments VERIFIED PT 14.8 H INR 1.2 H APTT 23.7 L PTT (Heparin Protocol) Fibrinogen D-Dimer Hep-Ind Thrombocytop Com O2 Saturation ABG pH at Pt Temp ABG pH (Temp Correct) ABG pCO2 at Pt Temp ABG pCO2 (Temp Corrct ABG pO2 at Pt Temp ABG pO2 (Temp Correct ABG HCO3 ABG Base Excess (Actual) VBG pH VBG pCO2 VBG pO2 VBG HCO3 VBG O2 Saturation VBG Base Excess Sodium Potassium Chloride Carbon Dioxide Anion Gap BUN Creatinine Estim Creat Clear Calc Estimated GFR POC Glucose 127 H Random Glucose Osmolality Lactic Acid Lactic Acid Fup @ 2Hr Lactic Acid Fup @ 4Hr Calcium Phosphorus Magnesium Total Bilirubin AST ALT Alkaline Phosphatase Troponin I High Sens B-Natriuretic Peptide Total Protein Albumin Lipase TSH Urine Color Urine Appearance Urine pH Ur Specific [place] Urine Protein Urine Glucose (UA) Urine Ketones Urine Blood Urine Nitrite Ur Leukocyte Esterase Urine RBC Urine WBC Ur Squamous Epith Cells Urine Bacteria Hyaline Casts Granular Casts Urine Mucus Urine Osmolality Ur Random Sodium Ur Random Chloride Ur Random Potassium Stool Occult Blood Ethyl Alcohol Heparin Dep Plt Ab OD Hep-Induced Plt Ab Daniela COVID-19 ([facility]) COVID-19 Clin Com Blood Type Antibody Screen Direct Antiglob Test SUSANNE, Polyspecific Crossmatch 01/02/21 01/02/21 01/02/21 05:11 05:11 05:12 WBC RBC Hgb Hct MCV MCH MCHC RDW Plt Count MPV Immature Gran % (Auto) Neut % (Auto) Lymph % (Auto) [place] % (Auto) Eos % (Auto) Baso % (Auto) Lymph # (Auto) [place] # (Auto) Eos # (Auto) Baso # (Auto) Abs Immat Gran (auto) Absolute Neuts (auto) Absolute Nucleated RBC Nucleated RBC % (auto) Smear Tech's Comments PT INR APTT PTT (Heparin Protocol) Fibrinogen D-Dimer Hep-Ind Thrombocytop Com O2 Saturation ABG pH at Pt Temp ABG pH (Temp Correct) ABG pCO2 at Pt Temp ABG pCO2 (Temp Corrct ABG pO2 at Pt Temp ABG pO2 (Temp Correct ABG HCO3 ABG Base Excess (Actual) VBG pH 7.55 H VBG pCO2 42 VBG pO2 137 VBG HCO3 37 H VBG O2 Saturation 99.0 VBG Base Excess 13.9 Sodium 146 H Potassium 3.6 Chloride 107 Carbon Dioxide 33 H Anion Gap 10 L BUN 20 H Creatinine 0.65 Estim Creat Clear Calc 96.9 Estimated GFR > 60 POC Glucose Random Glucose 119 H Osmolality Lactic Acid Lactic Acid Fup @ 2Hr Lactic Acid Fup @ 4Hr Calcium 7.6 L D Phosphorus 2.1 L Magnesium 1.8 Total Bilirubin AST ALT Alkaline Phosphatase Troponin I High Sens B-Natriuretic Peptide 1287 H Total Protein Albumin Lipase TSH Urine Color Urine Appearance Urine pH Ur Specific [place] Urine Protein Urine Glucose (UA) Urine Ketones Urine Blood Urine Nitrite Ur Leukocyte Esterase Urine RBC Urine WBC Ur Squamous Epith Cells Urine Bacteria Hyaline Casts Granular Casts Urine Mucus Urine Osmolality Ur Random Sodium Ur Random Chloride Ur Random Potassium Stool Occult Blood Ethyl Alcohol Heparin Dep Plt Ab OD Hep-Induced Plt Ab Daniela COVID-19 ([facility]) COVID-19 Clin Com Blood Type Antibody Screen Direct Antiglob Test SUSANNE, Polyspecific Crossmatch 01/02/21 01/02/21 01/02/21 05:33 12:04 18:01 WBC RBC Hgb Hct MCV MCH MCHC RDW Plt Count MPV Immature Gran % (Auto) Neut % (Auto) Lymph % (Auto) [place] % (Auto) Eos % (Auto) Baso % (Auto) Lymph # (Auto) [place] # (Auto) Eos # (Auto) Baso # (Auto) Abs Immat Gran (auto) Absolute Neuts (auto) Absolute Nucleated RBC Nucleated RBC % (auto) Smear Tech's Comments PT INR APTT PTT (Heparin Protocol) Fibrinogen D-Dimer Hep-Ind Thrombocytop Com O2 Saturation ABG pH at Pt Temp ABG pH (Temp Correct) ABG pCO2 at Pt Temp ABG pCO2 (Temp Corrct ABG pO2 at Pt Temp ABG pO2 (Temp Correct ABG HCO3 ABG Base Excess (Actual) VBG pH VBG pCO2 VBG pO2 VBG HCO3 VBG O2 Saturation VBG Base Excess Sodium Potassium Chloride Carbon Dioxide Anion Gap BUN Creatinine Estim Creat Clear Calc Estimated GFR POC Glucose 120 H 111 98 Random Glucose Osmolality Lactic Acid Lactic Acid Fup @ 2Hr Lactic Acid Fup @ 4Hr Calcium Phosphorus Magnesium Total Bilirubin AST ALT Alkaline Phosphatase Troponin I High Sens B-Natriuretic Peptide Total Protein Albumin Lipase TSH Urine Color Urine Appearance Urine pH Ur Specific [place] Urine Protein Urine Glucose (UA) Urine Ketones Urine Blood Urine Nitrite Ur Leukocyte Esterase Urine RBC Urine WBC Ur Squamous Epith Cells Urine Bacteria Hyaline Casts Granular Casts Urine Mucus Urine Osmolality Ur Random Sodium Ur Random Chloride Ur Random Potassium Stool Occult Blood Ethyl Alcohol Heparin Dep Plt Ab OD Hep-Induced Plt Ab Daniela COVID-19 ([facility]) COVID-19 Clin Com Blood Type Antibody Screen Direct Antiglob Test SUSANNE, Polyspecific Crossmatch 01/02/21 01/03/21 01/03/21 23:13 05:17 05:17 WBC 9.9 RBC 2.82 L Hgb 8.8 L Hct 27.8 L MCV 98.6 H MCH 31.2 MCHC 31.7 RDW 15.9 Plt Count 122 L MPV 10.8 Immature Gran % (Auto) 1.6 H Neut % (Auto) 86.0 H Lymph % (Auto) 3.5 L [place] % (Auto) 7.0 Eos % (Auto) 1.8 Baso % (Auto) 0.1 Lymph # (Auto) 0.4 L [place] # (Auto) 0.7 Eos # (Auto) 0.2 Baso # (Auto) 0.0 Abs Immat Gran (auto) 0.16 H Absolute Neuts (auto) 8.5 H Absolute Nucleated RBC 0.020 H Nucleated RBC % (auto) 0.2 Smear Tech's Comments VERIFIED PT 15.2 H INR 1.3 H APTT 24.4 PTT (Heparin Protocol) Fibrinogen D-Dimer Hep-Ind Thrombocytop Com O2 Saturation ABG pH at Pt Temp ABG pH (Temp Correct) ABG pCO2 at Pt Temp ABG pCO2 (Temp Corrct ABG pO2 at Pt Temp ABG pO2 (Temp Correct ABG HCO3 ABG Base Excess (Actual) VBG pH VBG pCO2 VBG pO2 VBG HCO3 VBG O2 Saturation VBG Base Excess Sodium Potassium Chloride Carbon Dioxide Anion Gap BUN Creatinine Estim Creat Clear Calc Estimated GFR POC Glucose 105 Random Glucose Osmolality Lactic Acid Lactic Acid Fup @ 2Hr Lactic Acid Fup @ 4Hr Calcium Phosphorus Magnesium Total Bilirubin AST ALT Alkaline Phosphatase Troponin I High Sens B-Natriuretic Peptide Total Protein Albumin Lipase TSH Urine Color Urine Appearance Urine pH Ur Specific [place] Urine Protein Urine Glucose (UA) Urine Ketones Urine Blood Urine Nitrite Ur Leukocyte Esterase Urine RBC Urine WBC Ur Squamous Epith Cells Urine Bacteria Hyaline Casts Granular Casts Urine Mucus Urine Osmolality Ur Random Sodium Ur Random Chloride Ur Random Potassium Stool Occult Blood Ethyl Alcohol Heparin Dep Plt Ab OD Hep-Induced Plt Ab Daniela COVID-19 ([facility]) COVID-19 Clin Com Blood Type Antibody Screen Direct Antiglob Test SUSANNE, Polyspecific Crossmatch 01/03/21 01/03/21 01/03/21 05:17 05:17 05:20 WBC RBC Hgb Hct MCV MCH MCHC RDW Plt Count MPV Immature Gran % (Auto) Neut % (Auto) Lymph % (Auto) [place] % (Auto) Eos % (Auto) Baso % (Auto) Lymph # (Auto) [place] # (Auto) Eos # (Auto) Baso # (Auto) Abs Immat Gran (auto) Absolute Neuts (auto) Absolute Nucleated RBC Nucleated RBC % (auto) Smear Tech's Comments PT INR APTT PTT (Heparin Protocol) Fibrinogen D-Dimer Hep-Ind Thrombocytop Com O2 Saturation ABG pH at Pt Temp ABG pH (Temp Correct) ABG pCO2 at Pt Temp ABG pCO2 (Temp Corrct ABG pO2 at Pt Temp ABG pO2 (Temp Correct ABG HCO3 ABG Base Excess (Actual) VBG pH 7.56 H VBG pCO2 48 VBG pO2 46 VBG HCO3 43 H VBG O2 Saturation 79.0 VBG Base Excess 18.9 Sodium 147 H Potassium 3.0 L Chloride 103 Carbon Dioxide 36 H Anion Gap 11 L BUN 16 Creatinine 0.54 Estim Creat Clear Calc 116.6 Estimated GFR > 60 POC Glucose Random Glucose 118 H Osmolality Lactic Acid Lactic Acid Fup @ 2Hr Lactic Acid Fup @ 4Hr Calcium 7.2 L Phosphorus 2.1 L Magnesium 1.5 L Total Bilirubin AST ALT Alkaline Phosphatase Troponin I High Sens B-Natriuretic Peptide 1157 H Total Protein Albumin Lipase TSH Urine Color Urine Appearance Urine pH Ur Specific [place] Urine Protein Urine Glucose (UA) Urine Ketones Urine Blood Urine Nitrite Ur Leukocyte Esterase Urine RBC Urine WBC Ur Squamous Epith Cells Urine Bacteria Hyaline Casts Granular Casts Urine Mucus Urine Osmolality Ur Random Sodium Ur Random Chloride Ur Random Potassium Stool Occult Blood Ethyl Alcohol Heparin Dep Plt Ab OD Hep-Induced Plt Ab Daniela COVID-19 ([facility]) COVID-19 Clin Com Blood Type Antibody Screen Direct Antiglob Test SUSANNE, Polyspecific Crossmatch 01/03/21 01/03/21 01/03/21 05:38 11:42 17:58 WBC RBC Hgb Hct MCV MCH MCHC RDW Plt Count MPV Immature Gran % (Auto) Neut % (Auto) Lymph % (Auto) [place] % (Auto) Eos % (Auto) Baso % (Auto) Lymph # (Auto) [place] # (Auto) Eos # (Auto) Baso # (Auto) Abs Immat Gran (auto) Absolute Neuts (auto) Absolute Nucleated RBC Nucleated RBC % (auto) Smear Tech's Comments PT INR APTT PTT (Heparin Protocol) Fibrinogen D-Dimer Hep-Ind Thrombocytop Com O2 Saturation ABG pH at Pt Temp ABG pH (Temp Correct) ABG pCO2 at Pt Temp ABG pCO2 (Temp Corrct ABG pO2 at Pt Temp ABG pO2 (Temp Correct ABG HCO3 ABG Base Excess (Actual) VBG pH VBG pCO2 VBG pO2 VBG HCO3 VBG O2 Saturation VBG Base Excess Sodium Potassium Chloride Carbon Dioxide Anion Gap BUN Creatinine Estim Creat Clear Calc Estimated GFR POC Glucose 112 94 84 Random Glucose Osmolality Lactic Acid Lactic Acid Fup @ 2Hr Lactic Acid Fup @ 4Hr Calcium Phosphorus Magnesium Total Bilirubin AST ALT Alkaline Phosphatase Troponin I High Sens B-Natriuretic Peptide Total Protein Albumin Lipase TSH Urine Color Urine Appearance Urine pH Ur Specific [place] Urine Protein Urine Glucose (UA) Urine Ketones Urine Blood Urine Nitrite Ur Leukocyte Esterase Urine RBC Urine WBC Ur Squamous Epith Cells Urine Bacteria Hyaline Casts Granular Casts Urine Mucus Urine Osmolality Ur Random Sodium Ur Random Chloride Ur Random Potassium Stool Occult Blood Ethyl Alcohol Heparin Dep Plt Ab OD Hep-Induced Plt Ab Daniela COVID-19 ([facility]) COVID-19 Clin Com Blood Type Antibody Screen Direct Antiglob Test SUSANNE, Polyspecific Crossmatch 01/03/21 01/03/21 01/04/21 23:36 23:54 05:17 WBC RBC Hgb Hct MCV MCH MCHC RDW Plt Count MPV Immature Gran % (Auto) Neut % (Auto) Lymph % (Auto) [place] % (Auto) Eos % (Auto) Baso % (Auto) Lymph # (Auto) [place] # (Auto) Eos # (Auto) Baso # (Auto) Abs Immat Gran (auto) Absolute Neuts (auto) Absolute Nucleated RBC Nucleated RBC % (auto) Smear Tech's Comments PT INR APTT PTT (Heparin Protocol) Fibrinogen D-Dimer Hep-Ind Thrombocytop Com O2 Saturation ABG pH at Pt Temp ABG pH (Temp Correct) ABG pCO2 at Pt Temp ABG pCO2 (Temp Corrct ABG pO2 at Pt Temp ABG pO2 (Temp Correct ABG HCO3 ABG Base Excess (Actual) VBG pH VBG pCO2 VBG pO2 VBG HCO3 VBG O2 Saturation VBG Base Excess Sodium Potassium Chloride Carbon Dioxide Anion Gap BUN Creatinine Estim Creat Clear Calc Estimated GFR POC Glucose 152 H 154 H Random Glucose Osmolality Lactic Acid Lactic Acid Fup @ 2Hr Lactic Acid Fup @ 4Hr Calcium Phosphorus Magnesium Total Bilirubin AST ALT Alkaline Phosphatase Troponin I High Sens B-Natriuretic Peptide Total Protein Albumin 3.1 L D Lipase TSH Urine Color Urine Appearance Urine pH Ur Specific [place] Urine Protein Urine Glucose (UA) Urine Ketones Urine Blood Urine Nitrite Ur Leukocyte Esterase Urine RBC Urine WBC Ur Squamous Epith Cells Urine Bacteria Hyaline Casts Granular Casts Urine Mucus Urine Osmolality Ur Random Sodium Ur Random Chloride Ur Random Potassium Stool Occult Blood Ethyl Alcohol Heparin Dep Plt Ab OD Hep-Induced Plt Ab Daniela COVID-19 ([facility]) COVID-19 Clin Com Blood Type Antibody Screen Direct Antiglob Test SUSANNE, Polyspecific Crossmatch 01/04/21 01/04/21 01/04/21 05:17 05:17 05:17 WBC 9.6 RBC 3.06 L Hgb 9.4 L Hct 30.2 L MCV 98.7 H MCH 30.7 MCHC 31.1 RDW 16.4 H Plt Count 181 D MPV 10.6 Immature Gran % (Auto) 1.8 H Neut % (Auto) 94.7 H Lymph % (Auto) 2.2 L [place] % (Auto) 1.2 L Eos % (Auto) 0.0 Baso % (Auto) 0.1 Lymph # (Auto) 0.2 L [place] # (Auto) 0.1 Eos # (Auto) 0.0 Baso # (Auto) 0.0 Abs Immat Gran (auto) 0.17 H Absolute Neuts (auto) 9.1 H Absolute Nucleated RBC 0.000 Nucleated RBC % (auto) 0.0 Smear Tech's Comments VERIFIED PT 16.4 H INR 1.4 H APTT 24.2 PTT (Heparin Protocol) Fibrinogen D-Dimer Hep-Ind Thrombocytop Com O2 Saturation ABG pH at Pt Temp ABG pH (Temp Correct) ABG pCO2 at Pt Temp ABG pCO2 (Temp Corrct ABG pO2 at Pt Temp ABG pO2 (Temp Correct ABG HCO3 ABG Base Excess (Actual) VBG pH VBG pCO2 VBG pO2 VBG HCO3 VBG O2 Saturation VBG Base Excess Sodium 148 H Potassium 3.5 Chloride 103 Carbon Dioxide 36 H Anion Gap 13 BUN 19 H Creatinine 0.57 Estim Creat Clear Calc 110.5 Estimated GFR > 60 POC Glucose Random Glucose 159 H Osmolality Lactic Acid Lactic Acid Fup @ 2Hr Lactic Acid Fup @ 4Hr Calcium 7.8 L D Phosphorus 2.1 L Magnesium 1.7 Total Bilirubin AST ALT Alkaline Phosphatase Troponin I High Sens B-Natriuretic Peptide Total Protein Albumin Lipase TSH Urine Color Urine Appearance Urine pH Ur Specific [place] Urine Protein Urine Glucose (UA) Urine Ketones Urine Blood Urine Nitrite Ur Leukocyte Esterase Urine RBC Urine WBC Ur Squamous Epith Cells Urine Bacteria Hyaline Casts Granular Casts Urine Mucus Urine Osmolality Ur Random Sodium Ur Random Chloride Ur Random Potassium Stool Occult Blood Ethyl Alcohol Heparin Dep Plt Ab OD Hep-Induced Plt Ab Daniela COVID-19 ([facility]) COVID-19 Clin Com Blood Type Antibody Screen Direct Antiglob Test SUSANNE, Polyspecific Crossmatch 01/04/21 01/04/21 01/04/21 05:17 05:23 05:52 WBC RBC Hgb Hct MCV MCH MCHC RDW Plt Count MPV Immature Gran % (Auto) Neut % (Auto) Lymph % (Auto) [place] % (Auto) Eos % (Auto) Baso % (Auto) Lymph # (Auto) [place] # (Auto) Eos # (Auto) Baso # (Auto) Abs Immat Gran (auto) Absolute Neuts (auto) Absolute Nucleated RBC Nucleated RBC % (auto) Smear Tech's Comments PT INR APTT PTT (Heparin Protocol) Fibrinogen D-Dimer Hep-Ind Thrombocytop Com O2 Saturation ABG pH at Pt Temp ABG pH (Temp Correct) ABG pCO2 at Pt Temp ABG pCO2 (Temp Corrct ABG pO2 at Pt Temp ABG pO2 (Temp Correct ABG HCO3 ABG Base Excess (Actual) VBG pH 7.54 H VBG pCO2 48 VBG pO2 47 VBG HCO3 41 H VBG O2 Saturation 80.0 VBG Base Excess 17.3 Sodium Potassium Chloride Carbon Dioxide Anion Gap BUN Creatinine Estim Creat Clear Calc Estimated GFR POC Glucose 164 H Random Glucose Osmolality Lactic Acid Lactic Acid Fup @ 2Hr Lactic Acid Fup @ 4Hr Calcium Phosphorus Magnesium Total Bilirubin AST ALT Alkaline Phosphatase Troponin I High Sens B-Natriuretic Peptide 996 H Total Protein Albumin Lipase TSH Urine Color Urine Appearance Urine pH Ur Specific [place] Urine Protein Urine Glucose (UA) Urine Ketones Urine Blood Urine Nitrite Ur Leukocyte Esterase Urine RBC Urine WBC Ur Squamous Epith Cells Urine Bacteria Hyaline Casts Granular Casts Urine Mucus Urine Osmolality Ur Random Sodium Ur Random Chloride Ur Random Potassium Stool Occult Blood Ethyl Alcohol Heparin Dep Plt Ab OD Hep-Induced Plt Ab Daniela COVID-19 ([facility]) COVID-19 Clin Com Blood Type Antibody Screen Direct Antiglob Test SUSANNE, Polyspecific Crossmatch 01/04/21 01/04/21 01/04/21 12:22 17:41 23:49 WBC RBC Hgb Hct MCV MCH MCHC RDW Plt Count MPV Immature Gran % (Auto) Neut % (Auto) Lymph % (Auto) [place] % (Auto) Eos % (Auto) Baso % (Auto) Lymph # (Auto) [place] # (Auto) Eos # (Auto) Baso # (Auto) Abs Immat Gran (auto) Absolute Neuts (auto) Absolute Nucleated RBC Nucleated RBC % (auto) Smear Tech's Comments PT INR APTT PTT (Heparin Protocol) Fibrinogen D-Dimer Hep-Ind Thrombocytop Com O2 Saturation ABG pH at Pt Temp ABG pH (Temp Correct) ABG pCO2 at Pt Temp ABG pCO2 (Temp Corrct ABG pO2 at Pt Temp ABG pO2 (Temp Correct ABG HCO3 ABG Base Excess (Actual) VBG pH VBG pCO2 VBG pO2 VBG HCO3 VBG O2 Saturation VBG Base Excess Sodium Potassium Chloride Carbon Dioxide Anion Gap BUN Creatinine Estim Creat Clear Calc Estimated GFR POC Glucose 150 H 129 H 122 H Random Glucose Osmolality Lactic Acid Lactic Acid Fup @ 2Hr Lactic Acid Fup @ 4Hr Calcium Phosphorus Magnesium Total Bilirubin AST ALT Alkaline Phosphatase Troponin I High Sens B-Natriuretic Peptide Total Protein Albumin Lipase TSH Urine Color Urine Appearance Urine pH Ur Specific [place] Urine Protein Urine Glucose (UA) Urine Ketones Urine Blood Urine Nitrite Ur Leukocyte Esterase Urine RBC Urine WBC Ur Squamous Epith Cells Urine Bacteria Hyaline Casts Granular Casts Urine Mucus Urine Osmolality Ur Random Sodium Ur Random Chloride Ur Random Potassium Stool Occult Blood Ethyl Alcohol Heparin Dep Plt Ab OD Hep-Induced Plt Ab Daniela COVID-19 ([facility]) COVID-19 Clin Com Blood Type Antibody Screen Direct Antiglob Test SUSANNE, Polyspecific Crossmatch 01/05/21 01/05/21 01/05/21 05:09 05:15 05:15 WBC 18.6 H RBC 2.81 L Hgb 8.8 L Hct 29.7 L MCV 105.7 H D MCH 31.3 MCHC 29.6 L RDW 16.9 H Plt Count 264 D MPV 10.4 Immature Gran % (Auto) 1.1 H Neut % (Auto) 90.5 H Lymph % (Auto) 1.9 L [place] % (Auto) 6.4 Eos % (Auto) 0.0 Baso % (Auto) 0.1 Lymph # (Auto) 0.4 L [place] # (Auto) 1.2 Eos # (Auto) 0.0 Baso # (Auto) 0.0 Abs Immat Gran (auto) 0.21 H Absolute Neuts (auto) 16.8 H Absolute Nucleated RBC 0.000 Nucleated RBC % (auto) 0.0 Smear Tech's Comments VERIFIED PT INR APTT PTT (Heparin Protocol) Fibrinogen D-Dimer Hep-Ind Thrombocytop Com O2 Saturation ABG pH at Pt Temp ABG pH (Temp Correct) ABG pCO2 at Pt Temp ABG pCO2 (Temp Corrct ABG pO2 at Pt Temp ABG pO2 (Temp Correct ABG HCO3 ABG Base Excess (Actual) VBG pH 7.36 VBG pCO2 74 VBG pO2 49 VBG HCO3 42 H VBG O2 Saturation 78.0 VBG Base Excess 14.0 Sodium 151 H Potassium 3.4 Chloride 104 Carbon Dioxide 38 H Anion Gap 12 BUN 23 H Creatinine 0.67 Estim Creat Clear Calc 94.0 Estimated GFR > 60 POC Glucose Random Glucose 117 H Osmolality Lactic Acid Lactic Acid Fup @ 2Hr Lactic Acid Fup @ 4Hr Calcium 8.5 D Phosphorus 3.7 Magnesium 2.0 Total Bilirubin 0.8 AST 41 H D ALT 45 H Alkaline Phosphatase 54 Troponin I High Sens B-Natriuretic Peptide Total Protein 6.0 L Albumin 4.3 D Lipase TSH Urine Color Urine Appearance Urine pH Ur Specific [place] Urine Protein Urine Glucose (UA) Urine Ketones Urine Blood Urine Nitrite Ur Leukocyte Esterase Urine RBC Urine WBC Ur Squamous Epith Cells Urine Bacteria Hyaline Casts Granular Casts Urine Mucus Urine Osmolality Ur Random Sodium Ur Random Chloride Ur Random Potassium Stool Occult Blood Ethyl Alcohol Heparin Dep Plt Ab OD Hep-Induced Plt Ab Daniela COVID-19 ([facility]) COVID-19 Clin Com Blood Type Antibody Screen Direct Antiglob Test SUSANNE, Polyspecific Crossmatch 01/05/21 01/05/21 01/05/21 05:46 11:22 12:14 WBC RBC Hgb Hct MCV MCH MCHC RDW Plt Count MPV Immature Gran % (Auto) Neut % (Auto) Lymph % (Auto) [place] % (Auto) Eos % (Auto) Baso % (Auto) Lymph # (Auto) [place] # (Auto) Eos # (Auto) Baso # (Auto) Abs Immat Gran (auto) Absolute Neuts (auto) Absolute Nucleated RBC Nucleated RBC % (auto) Smear Tech's Comments PT INR APTT PTT (Heparin Protocol) Fibrinogen D-Dimer Hep-Ind Thrombocytop Com O2 Saturation 94.0 ABG pH at Pt Temp 7.26 L ABG pH (Temp Correct) 7.25 L ABG pCO2 at Pt Temp 90 H* ABG pCO2 (Temp Corrct 92 H* ABG pO2 at Pt Temp 84 ABG pO2 (Temp Correct 87 ABG HCO3 41 H ABG Base Excess (Actual) 11.2 VBG pH VBG pCO2 VBG pO2 VBG HCO3 VBG O2 Saturation VBG Base Excess Sodium Potassium Chloride Carbon Dioxide Anion Gap BUN Creatinine Estim Creat Clear Calc Estimated GFR POC Glucose 117 H 171 H Random Glucose Osmolality Lactic Acid Lactic Acid Fup @ 2Hr Lactic Acid Fup @ 4Hr Calcium Phosphorus Magnesium Total Bilirubin AST ALT Alkaline Phosphatase Troponin I High Sens B-Natriuretic Peptide Total Protein Albumin Lipase TSH Urine Color Urine Appearance Urine pH Ur Specific [place] Urine Protein Urine Glucose (UA) Urine Ketones Urine Blood Urine Nitrite Ur Leukocyte Esterase Urine RBC Urine WBC Ur Squamous Epith Cells Urine Bacteria Hyaline Casts Granular Casts Urine Mucus Urine Osmolality Ur Random Sodium Ur Random Chloride Ur Random Potassium Stool Occult Blood Ethyl Alcohol Heparin Dep Plt Ab OD Hep-Induced Plt Ab Daniela COVID-19 ([facility]) COVID-19 Clin Com Blood Type Antibody Screen Direct Antiglob Test SUSANNE, Polyspecific Crossmatch 01/05/21 01/05/21 01/06/21 17:57 23:35 05:23 WBC 15.8 H RBC 2.80 L Hgb 8.7 L Hct 28.1 L MCV 100.4 H D MCH 31.1 MCHC 31.0 RDW 16.3 H Plt Count 218 MPV 10.1 Immature Gran % (Auto) 0.9 H Neut % (Auto) 89.3 H Lymph % (Auto) 4.2 L [place] % (Auto) 4.6 Eos % (Auto) 0.8 Baso % (Auto) 0.2 Lymph # (Auto) 0.7 L [place] # (Auto) 0.7 Eos # (Auto) 0.1 Baso # (Auto) 0.0 Abs Immat Gran (auto) 0.14 H Absolute Neuts (auto) 14.1 H Absolute Nucleated RBC 0.000 Nucleated RBC % (auto) 0.0 Smear Tech's Comments VERIFIED PT INR APTT PTT (Heparin Protocol) Fibrinogen D-Dimer Hep-Ind Thrombocytop Com O2 Saturation ABG pH at Pt Temp ABG pH (Temp Correct) ABG pCO2 at Pt Temp ABG pCO2 (Temp Corrct ABG pO2 at Pt Temp ABG pO2 (Temp Correct ABG HCO3 ABG Base Excess (Actual) VBG pH VBG pCO2 VBG pO2 VBG HCO3 VBG O2 Saturation VBG Base Excess Sodium Potassium Chloride Carbon Dioxide Anion Gap BUN Creatinine Estim Creat Clear Calc Estimated GFR POC Glucose 115 103 Random Glucose Osmolality Lactic Acid Lactic Acid Fup @ 2Hr Lactic Acid Fup @ 4Hr Calcium Phosphorus Magnesium Total Bilirubin AST ALT Alkaline Phosphatase Troponin I High Sens B-Natriuretic Peptide Total Protein Albumin Lipase TSH Urine Color Urine Appearance Urine pH Ur Specific [place] Urine Protein Urine Glucose (UA) Urine Ketones Urine Blood Urine Nitrite Ur Leukocyte Esterase Urine RBC Urine WBC Ur Squamous Epith Cells Urine Bacteria Hyaline Casts Granular Casts Urine Mucus Urine Osmolality Ur Random Sodium Ur Random Chloride Ur Random Potassium Stool Occult Blood Ethyl Alcohol Heparin Dep Plt Ab OD Hep-Induced Plt Ab Daniela COVID-19 ([facility]) COVID-19 Clin Com Blood Type Antibody Screen Direct Antiglob Test SUSANNE, Polyspecific Crossmatch 01/06/21 01/06/21 01/06/21 05:23 05:23 11:46 WBC RBC Hgb Hct MCV MCH MCHC RDW Plt Count MPV Immature Gran % (Auto) Neut % (Auto) Lymph % (Auto) [place] % (Auto) Eos % (Auto) Baso % (Auto) Lymph # (Auto) [place] # (Auto) Eos # (Auto) Baso # (Auto) Abs Immat Gran (auto) Absolute Neuts (auto) Absolute Nucleated RBC Nucleated RBC % (auto) Smear Tech's Comments PT INR APTT PTT (Heparin Protocol) Fibrinogen D-Dimer Hep-Ind Thrombocytop Com O2 Saturation ABG pH at Pt Temp ABG pH (Temp Correct) ABG pCO2 at Pt Temp ABG pCO2 (Temp Corrct ABG pO2 at Pt Temp ABG pO2 (Temp Correct ABG HCO3 ABG Base Excess (Actual) VBG pH 7.54 H VBG pCO2 41 VBG pO2 44 VBG HCO3 36 H VBG O2 Saturation 79.0 VBG Base Excess 12.6 Sodium 148 H Potassium 2.5 L* D Chloride 104 Carbon Dioxide 33 H Anion Gap 14 BUN 29 H Creatinine 0.68 Estim Creat Clear Calc 92.7 Estimated GFR > 60 POC Glucose 100 Random Glucose 101 Osmolality Lactic Acid Lactic Acid Fup @ 2Hr Lactic Acid Fup @ 4Hr Calcium 8.3 L Phosphorus 2.0 L Magnesium 1.7 Total Bilirubin 1.0 AST 28 ALT 38 H Alkaline Phosphatase 55 Troponin I High Sens B-Natriuretic Peptide Total Protein 4.8 L Albumin 3.4 L D Lipase TSH Urine Color Urine Appearance Urine pH Ur Specific [place] Urine Protein Urine Glucose (UA) Urine Ketones Urine Blood Urine Nitrite Ur Leukocyte Esterase Urine RBC Urine WBC Ur Squamous Epith Cells Urine Bacteria Hyaline Casts Granular Casts Urine Mucus Urine Osmolality Ur Random Sodium Ur Random Chloride Ur Random Potassium Stool Occult Blood Ethyl Alcohol Heparin Dep Plt Ab OD Hep-Induced Plt Ab Daniela COVID-19 ([facility]) COVID-19 Clin Com Blood Type Antibody Screen Direct Antiglob Test SUSANNE, Polyspecific Crossmatch 01/06/21 01/06/21 01/06/21 18:05 18:14 20:02 WBC RBC Hgb Hct MCV MCH MCHC RDW Plt Count MPV Immature Gran % (Auto) Neut % (Auto) Lymph % (Auto) [place] % (Auto) Eos % (Auto) Baso % (Auto) Lymph # (Auto) [place] # (Auto) Eos # (Auto) Baso # (Auto) Abs Immat Gran (auto) Absolute Neuts (auto) Absolute Nucleated RBC Nucleated RBC % (auto) Smear Tech's Comments PT INR APTT PTT (Heparin Protocol) Fibrinogen D-Dimer Hep-Ind Thrombocytop Com O2 Saturation ABG pH at Pt Temp ABG pH (Temp Correct) ABG pCO2 at Pt Temp ABG pCO2 (Temp Corrct ABG pO2 at Pt Temp ABG pO2 (Temp Correct ABG HCO3 ABG Base Excess (Actual) VBG pH VBG pCO2 VBG pO2 VBG HCO3 VBG O2 Saturation VBG Base Excess Sodium 147 H Potassium 3.2 L D Chloride 108 Carbon Dioxide 32 H Anion Gap 10 L BUN 28 H Creatinine 0.63 Estim Creat Clear Calc 100.0 Estimated GFR > 60 POC Glucose 111 Random Glucose 107 Osmolality Lactic Acid Lactic Acid Fup @ 2Hr Lactic Acid Fup @ 4Hr Calcium 8.1 L Phosphorus Magnesium Total Bilirubin AST ALT Alkaline Phosphatase Troponin I High Sens B-Natriuretic Peptide Total Protein Albumin Lipase TSH Urine Color Urine Appearance Urine pH Ur Specific [place] Urine Protein Urine Glucose (UA) Urine Ketones Urine Blood Urine Nitrite Ur Leukocyte Esterase Urine RBC Urine WBC Ur Squamous Epith Cells Urine Bacteria Hyaline Casts Granular Casts Urine Mucus Urine Osmolality Ur Random Sodium Ur Random Chloride Ur Random Potassium Stool Occult Blood POSITIVE Ethyl Alcohol Heparin Dep Plt Ab OD Hep-Induced Plt Ab Daniela COVID-19 ([facility]) COVID-19 Clin Com Blood Type Antibody Screen Direct Antiglob Test SUSANNE, Polyspecific Crossmatch 01/06/21 01/07/21 01/07/21 23:45 05:21 05:21 WBC 11.4 H RBC 2.76 L Hgb 8.6 L Hct 28.3 L MCV 102.5 H MCH 31.2 MCHC 30.4 L RDW 16.8 H Plt Count 221 MPV 10.7 Immature Gran % (Auto) 1.0 H Neut % (Auto) 85.7 H Lymph % (Auto) 4.9 L [place] % (Auto) 4.7 Eos % (Auto) 3.6 Baso % (Auto) 0.1 Lymph # (Auto) 0.6 L [place] # (Auto) 0.5 Eos # (Auto) 0.4 Baso # (Auto) 0.0 Abs Immat Gran (auto) 0.11 H Absolute Neuts (auto) 9.8 H Absolute Nucleated RBC 0.020 H Nucleated RBC % (auto) 0.2 Smear Tech's Comments VERIFIED PT INR APTT PTT (Heparin Protocol) Fibrinogen D-Dimer Hep-Ind Thrombocytop Com O2 Saturation ABG pH at Pt Temp ABG pH (Temp Correct) ABG pCO2 at Pt Temp ABG pCO2 (Temp Corrct ABG pO2 at Pt Temp ABG pO2 (Temp Correct ABG HCO3 ABG Base Excess (Actual) VBG pH VBG pCO2 VBG pO2 VBG HCO3 VBG O2 Saturation VBG Base Excess Sodium 148 H Potassium 3.4 Chloride 110 H Carbon Dioxide 31 H Anion Gap 10 L BUN 23 H Creatinine 0.61 Estim Creat Clear Calc 103.3 Estimated GFR > 60 POC Glucose 107 Random Glucose 125 H Osmolality Lactic Acid Lactic Acid Fup @ 2Hr Lactic Acid Fup @ 4Hr Calcium 8.0 L Phosphorus 3.1 Magnesium 1.8 Total Bilirubin AST ALT Alkaline Phosphatase Troponin I High Sens B-Natriuretic Peptide Total Protein Albumin 3.2 L Lipase TSH Urine Color Urine Appearance Urine pH Ur Specific [place] Urine Protein Urine Glucose (UA) Urine Ketones Urine Blood Urine Nitrite Ur Leukocyte Esterase Urine RBC Urine WBC Ur Squamous Epith Cells Urine Bacteria Hyaline Casts Granular Casts Urine Mucus Urine Osmolality Ur Random Sodium Ur Random Chloride Ur Random Potassium Stool Occult Blood Ethyl Alcohol Heparin Dep Plt Ab OD Hep-Induced Plt Ab Daniela COVID-19 ([facility]) COVID-19 Clin Com Blood Type Antibody Screen Direct Antiglob Test SUSANNE, Polyspecific Crossmatch 01/07/21 01/07/21 01/07/21 05:25 11:47 17:50 WBC RBC Hgb Hct MCV MCH MCHC RDW Plt Count MPV Immature Gran % (Auto) Neut % (Auto) Lymph % (Auto) [place] % (Auto) Eos % (Auto) Baso % (Auto) Lymph # (Auto) [place] # (Auto) Eos # (Auto) Baso # (Auto) Abs Immat Gran (auto) Absolute Neuts (auto) Absolute Nucleated RBC Nucleated RBC % (auto) Smear Tech's Comments PT INR APTT PTT (Heparin Protocol) Fibrinogen D-Dimer Hep-Ind Thrombocytop Com O2 Saturation ABG pH at Pt Temp ABG pH (Temp Correct) ABG pCO2 at Pt Temp ABG pCO2 (Temp Corrct ABG pO2 at Pt Temp ABG pO2 (Temp Correct ABG HCO3 ABG Base Excess (Actual) VBG pH 7.46 H VBG pCO2 44 VBG pO2 50 VBG HCO3 31 H VBG O2 Saturation 81.0 VBG Base Excess 7.3 Sodium Potassium Chloride Carbon Dioxide Anion Gap BUN Creatinine Estim Creat Clear Calc Estimated GFR POC Glucose 132 H 122 H Random Glucose Osmolality Lactic Acid Lactic Acid Fup @ 2Hr Lactic Acid Fup @ 4Hr Calcium Phosphorus Magnesium Total Bilirubin AST ALT Alkaline Phosphatase Troponin I High Sens B-Natriuretic Peptide Total Protein Albumin Lipase TSH Urine Color Urine Appearance Urine pH Ur Specific [place] Urine Protein Urine Glucose (UA) Urine Ketones Urine Blood Urine Nitrite Ur Leukocyte Esterase Urine RBC Urine WBC Ur Squamous Epith Cells Urine Bacteria Hyaline Casts Granular Casts Urine Mucus Urine Osmolality Ur Random Sodium Ur Random Chloride Ur Random Potassium Stool Occult Blood Ethyl Alcohol Heparin Dep Plt Ab OD Hep-Induced Plt Ab Daniela COVID-19 ([facility]) COVID-19 Clin Com Blood Type Antibody Screen Direct Antiglob Test SUSANNE, Polyspecific Crossmatch 01/07/21 01/08/21 01/08/21 23:55 05:25 05:25 WBC 8.5 RBC 2.56 L Hgb 8.1 L Hct 25.7 L MCV 100.4 H MCH 31.6 MCHC 31.5 RDW 16.9 H Plt Count 195 MPV 10.4 Immature Gran % (Auto) 1.3 H Neut % (Auto) 81.7 H Lymph % (Auto) 8.3 L [place] % (Auto) 4.9 Eos % (Auto) 3.8 Baso % (Auto) 0.0 Lymph # (Auto) 0.7 L [place] # (Auto) 0.4 Eos # (Auto) 0.3 Baso # (Auto) 0.0 Abs Immat Gran (auto) 0.11 H Absolute Neuts (auto) 7.0 Absolute Nucleated RBC 0.000 Nucleated RBC % (auto) 0.0 Smear Tech's Comments PT INR APTT PTT (Heparin Protocol) Fibrinogen D-Dimer Hep-Ind Thrombocytop Com O2 Saturation ABG pH at Pt Temp ABG pH (Temp Correct) ABG pCO2 at Pt Temp ABG pCO2 (Temp Corrct ABG pO2 at Pt Temp ABG pO2 (Temp Correct ABG HCO3 ABG Base Excess (Actual) VBG pH VBG pCO2 VBG pO2 VBG HCO3 VBG O2 Saturation VBG Base Excess Sodium 146 H Potassium 3.2 L Chloride 110 H Carbon Dioxide 30 H Anion Gap 9 L BUN 16 Creatinine 0.56 Estim Creat Clear Calc 112.5 Estimated GFR > 60 POC Glucose 120 H Random Glucose 105 Osmolality Lactic Acid Lactic Acid Fup @ 2Hr Lactic Acid Fup @ 4Hr Calcium 7.8 L Phosphorus 2.7 Magnesium 1.7 Total Bilirubin AST ALT Alkaline Phosphatase Troponin I High Sens B-Natriuretic Peptide Total Protein Albumin 2.8 L Lipase TSH Urine Color Urine Appearance Urine pH Ur Specific [place] Urine Protein Urine Glucose (UA) Urine Ketones Urine Blood Urine Nitrite Ur Leukocyte Esterase Urine RBC Urine WBC Ur Squamous Epith Cells Urine Bacteria Hyaline Casts Granular Casts Urine Mucus Urine Osmolality Ur Random Sodium Ur Random Chloride Ur Random Potassium Stool Occult Blood Ethyl Alcohol Heparin Dep Plt Ab OD Hep-Induced Plt Ab Daniela COVID-19 ([facility]) COVID-19 Clin Com Blood Type Antibody Screen Direct Antiglob Test SUSANNE, Polyspecific Crossmatch 01/08/21 01/08/21 01/08/21 05:28 13:40 18:00 WBC RBC Hgb Hct MCV MCH MCHC RDW Plt Count MPV Immature Gran % (Auto) Neut % (Auto) Lymph % (Auto) [place] % (Auto) Eos % (Auto) Baso % (Auto) Lymph # (Auto) [place] # (Auto) Eos # (Auto) Baso # (Auto) Abs Immat Gran (auto) Absolute Neuts (auto) Absolute Nucleated RBC Nucleated RBC % (auto) Smear Tech's Comments PT INR APTT PTT (Heparin Protocol) Fibrinogen D-Dimer Hep-Ind Thrombocytop Com O2 Saturation ABG pH at Pt Temp ABG pH (Temp Correct) ABG pCO2 at Pt Temp ABG pCO2 (Temp Corrct ABG pO2 at Pt Temp ABG pO2 (Temp Correct ABG HCO3 ABG Base Excess (Actual) VBG pH 7.48 H VBG pCO2 41 VBG pO2 41 VBG HCO3 30 H VBG O2 Saturation 71.0 VBG Base Excess 6.9 Sodium Potassium Chloride Carbon Dioxide Anion Gap BUN Creatinine Estim Creat Clear Calc Estimated GFR POC Glucose 105 113 Random Glucose Osmolality Lactic Acid Lactic Acid Fup @ 2Hr Lactic Acid Fup @ 4Hr Calcium Phosphorus Magnesium Total Bilirubin AST ALT Alkaline Phosphatase Troponin I High Sens B-Natriuretic Peptide Total Protein Albumin Lipase TSH Urine Color Urine Appearance Urine pH Ur Specific [place] Urine Protein Urine Glucose (UA) Urine Ketones Urine Blood Urine Nitrite Ur Leukocyte Esterase Urine RBC Urine WBC Ur Squamous Epith Cells Urine Bacteria Hyaline Casts Granular Casts Urine Mucus Urine Osmolality Ur Random Sodium Ur Random Chloride Ur Random Potassium Stool Occult Blood Ethyl Alcohol Heparin Dep Plt Ab OD Hep-Induced Plt Ab Daniela COVID-19 ([facility]) COVID-19 Clin Com Blood Type Antibody Screen Direct Antiglob Test SUSANNE, Polyspecific Crossmatch 01/08/21 01/09/21 01/09/21 23:36 05:20 05:20 WBC 10.0 RBC 2.74 L Hgb 8.6 L Hct 27.5 L MCV 100.4 H MCH 31.4 MCHC 31.3 RDW 17.2 H Plt Count 188 MPV 10.5 Immature Gran % (Auto) 1.2 H Neut % (Auto) 84.3 H Lymph % (Auto) 6.6 L [place] % (Auto) 5.2 Eos % (Auto) 2.6 Baso % (Auto) 0.1 Lymph # (Auto) 0.7 L [place] # (Auto) 0.5 Eos # (Auto) 0.3 Baso # (Auto) 0.0 Abs Immat Gran (auto) 0.12 H Absolute Neuts (auto) 8.4 H Absolute Nucleated RBC 0.000 Nucleated RBC % (auto) 0.0 Smear Tech's Comments VERIFIED PT INR APTT PTT (Heparin Protocol) Fibrinogen D-Dimer Hep-Ind Thrombocytop Com O2 Saturation ABG pH at Pt Temp ABG pH (Temp Correct) ABG pCO2 at Pt Temp ABG pCO2 (Temp Corrct ABG pO2 at Pt Temp ABG pO2 (Temp Correct ABG HCO3 ABG Base Excess (Actual) VBG pH VBG pCO2 VBG pO2 VBG HCO3 VBG O2 Saturation VBG Base Excess Sodium 146 H Potassium 4.0 D Chloride 111 H Carbon Dioxide 28 Anion Gap 11 L BUN 14 Creatinine 0.57 Estim Creat Clear Calc 110.5 Estimated GFR > 60 POC Glucose 117 H Random Glucose 89 Osmolality Lactic Acid Lactic Acid Fup @ 2Hr Lactic Acid Fup @ 4Hr Calcium 7.8 L Phosphorus 2.7 Magnesium 1.7 Total Bilirubin AST ALT Alkaline Phosphatase Troponin I High Sens B-Natriuretic Peptide Total Protein Albumin 2.7 L Lipase TSH Urine Color Urine Appearance Urine pH Ur Specific [place] Urine Protein Urine Glucose (UA) Urine Ketones Urine Blood Urine Nitrite Ur Leukocyte Esterase Urine RBC Urine WBC Ur Squamous Epith Cells Urine Bacteria Hyaline Casts Granular Casts Urine Mucus Urine Osmolality Ur Random Sodium Ur Random Chloride Ur Random Potassium Stool Occult Blood Ethyl Alcohol Heparin Dep Plt Ab OD Hep-Induced Plt Ab Daniela COVID-19 ([facility]) COVID-19 Clin Com Blood Type Antibody Screen Direct Antiglob Test SUSANNE, Polyspecific Crossmatch 01/09/21 01/09/21 01/09/21 05:23 11:58 17:39 WBC RBC Hgb Hct MCV MCH MCHC RDW Plt Count MPV Immature Gran % (Auto) Neut % (Auto) Lymph % (Auto) [place] % (Auto) Eos % (Auto) Baso % (Auto) Lymph # (Auto) [place] # (Auto) Eos # (Auto) Baso # (Auto) Abs Immat Gran (auto) Absolute Neuts (auto) Absolute Nucleated RBC Nucleated RBC % (auto) Smear Tech's Comments PT INR APTT PTT (Heparin Protocol) Fibrinogen D-Dimer Hep-Ind Thrombocytop Com O2 Saturation ABG pH at Pt Temp ABG pH (Temp Correct) ABG pCO2 at Pt Temp ABG pCO2 (Temp Corrct ABG pO2 at Pt Temp ABG pO2 (Temp Correct ABG HCO3 ABG Base Excess (Actual) VBG pH 7.49 H VBG pCO2 39 VBG pO2 71 VBG HCO3 30 H VBG O2 Saturation 94.0 VBG Base Excess 7.1 Sodium Potassium Chloride Carbon Dioxide Anion Gap BUN Creatinine Estim Creat Clear Calc Estimated GFR POC Glucose 95 110 Random Glucose Osmolality Lactic Acid Lactic Acid Fup @ 2Hr Lactic Acid Fup @ 4Hr Calcium Phosphorus Magnesium Total Bilirubin AST ALT Alkaline Phosphatase Troponin I High Sens B-Natriuretic Peptide Total Protein Albumin Lipase TSH Urine Color Urine Appearance Urine pH Ur Specific [place] Urine Protein Urine Glucose (UA) Urine Ketones Urine Blood Urine Nitrite Ur Leukocyte Esterase Urine RBC Urine WBC Ur Squamous Epith Cells Urine Bacteria Hyaline Casts Granular Casts Urine Mucus Urine Osmolality Ur Random Sodium Ur Random Chloride Ur Random Potassium Stool Occult Blood Ethyl Alcohol Heparin Dep Plt Ab OD Hep-Induced Plt Ab Daniela COVID-19 ([facility]) COVID-19 Clin Com Blood Type Antibody Screen Direct Antiglob Test SUSANNE, Polyspecific Crossmatch 01/09/21 01/09/21 01/10/21 18:46 22:42 06:08 WBC RBC Hgb Hct MCV MCH MCHC RDW Plt Count MPV Immature Gran % (Auto) Neut % (Auto) Lymph % (Auto) [place] % (Auto) Eos % (Auto) Baso % (Auto) Lymph # (Auto) [place] # (Auto) Eos # (Auto) Baso # (Auto) Abs Immat Gran (auto) Absolute Neuts (auto) Absolute Nucleated RBC Nucleated RBC % (auto) Smear Tech's Comments PT INR APTT PTT (Heparin Protocol) Fibrinogen D-Dimer Hep-Ind Thrombocytop Com O2 Saturation ABG pH at Pt Temp ABG pH (Temp Correct) ABG pCO2 at Pt Temp ABG pCO2 (Temp Corrct ABG pO2 at Pt Temp ABG pO2 (Temp Correct ABG HCO3 ABG Base Excess (Actual) VBG pH 7.57 H VBG pCO2 40 VBG pO2 58 VBG HCO3 37 H VBG O2 Saturation 91.0 VBG Base Excess 13.9 Sodium 147 H Potassium 3.6 Chloride 109 H Carbon Dioxide 27 Anion Gap 15 BUN 13 Creatinine 0.65 Estim Creat Clear Calc 96.9 Estimated GFR > 60 POC Glucose 136 H Random Glucose 119 H Osmolality Lactic Acid Lactic Acid Fup @ 2Hr Lactic Acid Fup @ 4Hr Calcium 8.4 D Phosphorus Magnesium Total Bilirubin AST ALT Alkaline Phosphatase Troponin I High Sens B-Natriuretic Peptide Total Protein Albumin Lipase TSH Urine Color Urine Appearance Urine pH Ur Specific [place] Urine Protein Urine Glucose (UA) Urine Ketones Urine Blood Urine Nitrite Ur Leukocyte Esterase Urine RBC Urine WBC Ur Squamous Epith Cells Urine Bacteria Hyaline Casts Granular Casts Urine Mucus Urine Osmolality Ur Random Sodium Ur Random Chloride Ur Random Potassium Stool Occult Blood Ethyl Alcohol Heparin Dep Plt Ab OD Hep-Induced Plt Ab Daniela COVID-19 ([facility]) COVID-19 Clin Com Blood Type Antibody Screen Direct Antiglob Test SUSANNE, Polyspecific Crossmatch 01/10/21 01/10/21 01/10/21 06:11 06:11 11:53 WBC 8.6 RBC 2.54 L Hgb 8.0 L Hct 25.5 L MCV 100.4 H MCH 31.5 MCHC 31.4 RDW 17.2 H Plt Count TNP MPV Not Reportable Immature Gran % (Auto) 2.4 H Neut % (Auto) 88.6 H Lymph % (Auto) 4.6 L [place] % (Auto) 3.8 Eos % (Auto) 0.5 Baso % (Auto) 0.1 Lymph # (Auto) 0.4 L [place] # (Auto) 0.3 Eos # (Auto) 0.0 Baso # (Auto) 0.0 Abs Immat Gran (auto) 0.21 H Absolute Neuts (auto) 7.6 Absolute Nucleated RBC 0.000 Nucleated RBC % (auto) 0.0 Smear Tech's Comments VERIFIED PT INR APTT PTT (Heparin Protocol) Fibrinogen D-Dimer Hep-Ind Thrombocytop Com O2 Saturation ABG pH at Pt Temp ABG pH (Temp Correct) ABG pCO2 at Pt Temp ABG pCO2 (Temp Corrct ABG pO2 at Pt Temp ABG pO2 (Temp Correct ABG HCO3 ABG Base Excess (Actual) VBG pH VBG pCO2 VBG pO2 VBG HCO3 VBG O2 Saturation VBG Base Excess Sodium 146 H Potassium 2.7 L D Chloride 102 Carbon Dioxide 30 H Anion Gap 17 BUN 11 Creatinine 0.67 Estim Creat Clear Calc 94.0 Estimated GFR > 60 POC Glucose 193 H Random Glucose 175 H D Osmolality Lactic Acid Lactic Acid Fup @ 2Hr Lactic Acid Fup @ 4Hr Calcium 8.4 Phosphorus 2.5 L Magnesium 1.6 Total Bilirubin AST ALT Alkaline Phosphatase Troponin I High Sens B-Natriuretic Peptide Total Protein Albumin 4.3 D Lipase TSH Urine Color Urine Appearance Urine pH Ur Specific [place] Urine Protein Urine Glucose (UA) Urine Ketones Urine Blood Urine Nitrite Ur Leukocyte Esterase Urine RBC Urine WBC Ur Squamous Epith Cells Urine Bacteria Hyaline Casts Granular Casts Urine Mucus Urine Osmolality Ur Random Sodium Ur Random Chloride Ur Random Potassium Stool Occult Blood Ethyl Alcohol Heparin Dep Plt Ab OD Hep-Induced Plt Ab Daniela COVID-19 ([facility]) COVID-19 Clin Com Blood Type Antibody Screen Direct Antiglob Test SUSANNE, Polyspecific Crossmatch 01/10/21 01/10/21 01/10/21 17:51 18:06 23:47 WBC RBC Hgb Hct MCV MCH MCHC RDW Plt Count MPV Immature Gran % (Auto) Neut % (Auto) Lymph % (Auto) [place] % (Auto) Eos % (Auto) Baso % (Auto) Lymph # (Auto) [place] # (Auto) Eos # (Auto) Baso # (Auto) Abs Immat Gran (auto) Absolute Neuts (auto) Absolute Nucleated RBC Nucleated RBC % (auto) Smear Tech's Comments PT INR APTT PTT (Heparin Protocol) Fibrinogen D-Dimer Hep-Ind Thrombocytop Com O2 Saturation ABG pH at Pt Temp ABG pH (Temp Correct) ABG pCO2 at Pt Temp ABG pCO2 (Temp Corrct ABG pO2 at Pt Temp ABG pO2 (Temp Correct ABG HCO3 ABG Base Excess (Actual) VBG pH VBG pCO2 VBG pO2 VBG HCO3 VBG O2 Saturation VBG Base Excess Sodium 145 Potassium 2.4 L* Chloride 96 Carbon Dioxide 37 H Anion Gap 14 BUN 10 Creatinine 0.62 Estim Creat Clear Calc 101.6 Estimated GFR > 60 POC Glucose 158 H 154 H Random Glucose 161 H Osmolality Lactic Acid Lactic Acid Fup @ 2Hr Lactic Acid Fup @ 4Hr Calcium 8.0 L Phosphorus Magnesium 1.4 L* Total Bilirubin AST ALT Alkaline Phosphatase Troponin I High Sens B-Natriuretic Peptide Total Protein Albumin Lipase TSH Urine Color Urine Appearance Urine pH Ur Specific [place] Urine Protein Urine Glucose (UA) Urine Ketones Urine Blood Urine Nitrite Ur Leukocyte Esterase Urine RBC Urine WBC Ur Squamous Epith Cells Urine Bacteria Hyaline Casts Granular Casts Urine Mucus Urine Osmolality Ur Random Sodium Ur Random Chloride Ur Random Potassium Stool Occult Blood Ethyl Alcohol Heparin Dep Plt Ab OD Hep-Induced Plt Ab Daniela COVID-19 ([facility]) COVID-19 Clin Com Blood Type Antibody Screen Direct Antiglob Test SUSANNE, Polyspecific Crossmatch 01/11/21 01/11/21 01/11/21 05:36 05:36 05:36 WBC 9.5 RBC 2.72 L Hgb 8.5 L Hct 26.6 L MCV 97.8 MCH 31.3 MCHC 32.0 RDW 17.2 H Plt Count 214 MPV 10.6 Immature Gran % (Auto) 1.6 H Neut % (Auto) 85.2 H Lymph % (Auto) 6.1 L [place] % (Auto) 6.8 Eos % (Auto) 0.1 Baso % (Auto) 0.2 Lymph # (Auto) 0.6 L [place] # (Auto) 0.6 Eos # (Auto) 0.0 Baso # (Auto) 0.0 Abs Immat Gran (auto) 0.15 H Absolute Neuts (auto) 8.1 Absolute Nucleated RBC 0.000 Nucleated RBC % (auto) 0.0 Smear Tech's Comments VERIFIED PT INR APTT PTT (Heparin Protocol) Fibrinogen D-Dimer Hep-Ind Thrombocytop Com O2 Saturation ABG pH at Pt Temp ABG pH (Temp Correct) ABG pCO2 at Pt Temp ABG pCO2 (Temp Corrct ABG pO2 at Pt Temp ABG pO2 (Temp Correct ABG HCO3 ABG Base Excess (Actual) VBG pH 7.62 H* VBG pCO2 51 VBG pO2 41 VBG HCO3 53 H VBG O2 Saturation 71.0 VBG Base Excess 28.6 Sodium 143 Potassium 2.3 L* Chloride 92 L Carbon Dioxide 42 H* Anion Gap 11 L BUN 8 L Creatinine 0.56 Estim Creat Clear Calc 112.5 Estimated GFR > 60 POC Glucose Random Glucose 141 H Osmolality Lactic Acid Lactic Acid Fup @ 2Hr Lactic Acid Fup @ 4Hr Calcium 7.7 L Phosphorus 2.4 L Magnesium 1.6 Total Bilirubin 1.4 H AST 25 ALT 15 Alkaline Phosphatase 69 D Troponin I High Sens B-Natriuretic Peptide Total Protein 5.6 L Albumin 3.8 Lipase TSH Urine Color Urine Appearance Urine pH Ur Specific [place] Urine Protein Urine Glucose (UA) Urine Ketones Urine Blood Urine Nitrite Ur Leukocyte Esterase Urine RBC Urine WBC Ur Squamous Epith Cells Urine Bacteria Hyaline Casts Granular Casts Urine Mucus Urine Osmolality Ur Random Sodium Ur Random Chloride Ur Random Potassium Stool Occult Blood Ethyl Alcohol Heparin Dep Plt Ab OD Hep-Induced Plt Ab Daniela COVID-19 ([facility]) COVID-19 Clin Com Blood Type Antibody Screen Direct Antiglob Test SUSANNE, Polyspecific Crossmatch 01/11/21 01/11/21 01/11/21 05:41 10:26 10:26 WBC RBC Hgb Hct MCV MCH MCHC RDW Plt Count MPV Immature Gran % (Auto) Neut % (Auto) Lymph % (Auto) [place] % (Auto) Eos % (Auto) Baso % (Auto) Lymph # (Auto) [place] # (Auto) Eos # (Auto) Baso # (Auto) Abs Immat Gran (auto) Absolute Neuts (auto) Absolute Nucleated RBC Nucleated RBC % (auto) Smear Tech's Comments PT INR APTT PTT (Heparin Protocol) Fibrinogen D-Dimer Hep-Ind Thrombocytop Com O2 Saturation ABG pH at Pt Temp ABG pH (Temp Correct) ABG pCO2 at Pt Temp ABG pCO2 (Temp Corrct ABG pO2 at Pt Temp ABG pO2 (Temp Correct ABG HCO3 ABG Base Excess (Actual) VBG pH VBG pCO2 VBG pO2 VBG HCO3 VBG O2 Saturation VBG Base Excess Sodium Potassium Chloride Carbon Dioxide Anion Gap BUN Creatinine Estim Creat Clear Calc Estimated GFR POC Glucose 146 H Random Glucose Osmolality Lactic Acid Lactic Acid Fup @ 2Hr Lactic Acid Fup @ 4Hr Calcium Phosphorus Magnesium Total Bilirubin AST ALT Alkaline Phosphatase Troponin I High Sens B-Natriuretic Peptide Total Protein Albumin Lipase TSH Urine Color Urine Appearance Urine pH Ur Specific [place] Urine Protein Urine Glucose (UA) Urine Ketones Urine Blood Urine Nitrite Ur Leukocyte Esterase Urine RBC Urine WBC Ur Squamous Epith Cells Urine Bacteria Hyaline Casts Granular Casts Urine Mucus Urine Osmolality 529 Ur Random Sodium 155.0 Ur Random Chloride 175.0 Ur Random Potassium 48.0 Stool Occult Blood Ethyl Alcohol Heparin Dep Plt Ab OD Hep-Induced Plt Ab Daniela COVID-19 ([facility]) COVID-19 Clin Com Blood Type Antibody Screen Direct Antiglob Test SUSANNE, Polyspecific Crossmatch 01/11/21 01/11/21 01/11/21 11:35 18:04 19:07 WBC RBC Hgb Hct MCV MCH MCHC RDW Plt Count MPV Immature Gran % (Auto) Neut % (Auto) Lymph % (Auto) [place] % (Auto) Eos % (Auto) Baso % (Auto) Lymph # (Auto) [place] # (Auto) Eos # (Auto) Baso # (Auto) Abs Immat Gran (auto) Absolute Neuts (auto) Absolute Nucleated RBC Nucleated RBC % (auto) Smear Tech's Comments PT INR APTT PTT (Heparin Protocol) Fibrinogen D-Dimer Hep-Ind Thrombocytop Com O2 Saturation ABG pH at Pt Temp ABG pH (Temp Correct) ABG pCO2 at Pt Temp ABG pCO2 (Temp Corrct ABG pO2 at Pt Temp ABG pO2 (Temp Correct ABG HCO3 ABG Base Excess (Actual) VBG pH VBG pCO2 VBG pO2 VBG HCO3 VBG O2 Saturation VBG Base Excess Sodium Potassium Chloride Carbon Dioxide Anion Gap BUN Creatinine Estim Creat Clear Calc Estimated GFR POC Glucose 147 H 120 H Random Glucose Osmolality Lactic Acid Lactic Acid Fup @ 2Hr Lactic Acid Fup @ 4Hr Calcium Phosphorus 3.4 Magnesium 1.8 Total Bilirubin AST ALT Alkaline Phosphatase Troponin I High Sens B-Natriuretic Peptide Total Protein Albumin Lipase TSH Urine Color Urine Appearance Urine pH Ur Specific [place] Urine Protein Urine Glucose (UA) Urine Ketones Urine Blood Urine Nitrite Ur Leukocyte Esterase Urine RBC Urine WBC Ur Squamous Epith Cells Urine Bacteria Hyaline Casts Granular Casts Urine Mucus Urine Osmolality Ur Random Sodium Ur Random Chloride Ur Random Potassium Stool Occult Blood Ethyl Alcohol Heparin Dep Plt Ab OD Hep-Induced Plt Ab Daniela COVID-19 ([facility]) COVID-19 Clin Com Blood Type Antibody Screen Direct Antiglob Test SUSANNE, Polyspecific Crossmatch 01/11/21 01/11/21 01/12/21 19:09 23:20 00:50 WBC RBC Hgb Hct MCV MCH MCHC RDW Plt Count MPV Immature Gran % (Auto) Neut % (Auto) Lymph % (Auto) [place] % (Auto) Eos % (Auto) Baso % (Auto) Lymph # (Auto) [place] # (Auto) Eos # (Auto) Baso # (Auto) Abs Immat Gran (auto) Absolute Neuts (auto) Absolute Nucleated RBC Nucleated RBC % (auto) Smear Tech's Comments PT INR APTT PTT (Heparin Protocol) Fibrinogen D-Dimer Hep-Ind Thrombocytop Com O2 Saturation ABG pH at Pt Temp ABG pH (Temp Correct) ABG pCO2 at Pt Temp ABG pCO2 (Temp Corrct ABG pO2 at Pt Temp ABG pO2 (Temp Correct ABG HCO3 ABG Base Excess (Actual) VBG pH VBG pCO2 VBG pO2 VBG HCO3 VBG O2 Saturation VBG Base Excess Sodium 141 Potassium 2.5 L* 3.1 L D Chloride 93 L Carbon Dioxide 39 H Anion Gap 12 BUN Creatinine Estim Creat Clear Calc Estimated GFR POC Glucose 117 H Random Glucose Osmolality Lactic Acid Lactic Acid Fup @ 2Hr Lactic Acid Fup @ 4Hr Calcium Phosphorus Magnesium Total Bilirubin AST ALT Alkaline Phosphatase Troponin I High Sens B-Natriuretic Peptide Total Protein Albumin Lipase TSH Urine Color Urine Appearance Urine pH Ur Specific [place] Urine Protein Urine Glucose (UA) Urine Ketones Urine Blood Urine Nitrite Ur Leukocyte Esterase Urine RBC Urine WBC Ur Squamous Epith Cells Urine Bacteria Hyaline Casts Granular Casts Urine Mucus Urine Osmolality Ur Random Sodium Ur Random Chloride Ur Random Potassium Stool Occult Blood Ethyl Alcohol Heparin Dep Plt Ab OD Hep-Induced Plt Ab Daniela COVID-19 ([facility]) COVID-19 Clin Com Blood Type Antibody Screen Direct Antiglob Test SUSANNE, Polyspecific Crossmatch 01/12/21 01/12/21 01/12/21 05:35 05:35 05:35 WBC 9.4 RBC 2.82 L Hgb 8.8 L Hct 28.1 L MCV 99.6 H MCH 31.2 MCHC 31.3 RDW 16.9 H Plt Count 225 MPV 10.1 Immature Gran % (Auto) Neut % (Auto) Lymph % (Auto) [place] % (Auto) Eos % (Auto) Baso % (Auto) Lymph # (Auto) [place] # (Auto) Eos # (Auto) Baso # (Auto) Abs Immat Gran (auto) Absolute Neuts (auto) Absolute Nucleated RBC 0.000 Nucleated RBC % (auto) 0.0 Smear Tech's Comments PT INR APTT PTT (Heparin Protocol) Fibrinogen D-Dimer Hep-Ind Thrombocytop Com O2 Saturation ABG pH at Pt Temp ABG pH (Temp Correct) ABG pCO2 at Pt Temp ABG pCO2 (Temp Corrct ABG pO2 at Pt Temp ABG pO2 (Temp Correct ABG HCO3 ABG Base Excess (Actual) VBG pH VBG pCO2 VBG pO2 VBG HCO3 VBG O2 Saturation VBG Base Excess Sodium 140 Potassium 3.2 L Chloride 99 Carbon Dioxide 34 H Anion Gap 10 L BUN 12 Creatinine 0.60 Estim Creat Clear Calc 105.0 Estimated GFR > 60 POC Glucose Random Glucose 120 H Osmolality Lactic Acid Lactic Acid Fup @ 2Hr Lactic Acid Fup @ 4Hr Calcium 7.9 L Phosphorus 2.5 L Magnesium 1.9 Total Bilirubin 1.2 H AST 42 H D ALT 26 Alkaline Phosphatase 74 Troponin I High Sens B-Natriuretic Peptide 790 H Total Protein 5.3 L Albumin 3.6 Lipase TSH Urine Color Urine Appearance Urine pH Ur Specific [place] Urine Protein Urine Glucose (UA) Urine Ketones Urine Blood Urine Nitrite Ur Leukocyte Esterase Urine RBC Urine WBC Ur Squamous Epith Cells Urine Bacteria Hyaline Casts Granular Casts Urine Mucus Urine Osmolality Ur Random Sodium Ur Random Chloride Ur Random Potassium Stool Occult Blood Ethyl Alcohol Heparin Dep Plt Ab OD Hep-Induced Plt Ab Daniela COVID-19 ([facility]) COVID-19 Clin Com Blood Type Antibody Screen Direct Antiglob Test SUSANNE, Polyspecific Crossmatch 01/12/21 01/12/21 01/12/21 05:42 05:49 10:54 WBC RBC Hgb Hct MCV MCH MCHC RDW Plt Count MPV Immature Gran % (Auto) Neut % (Auto) Lymph % (Auto) [place] % (Auto) Eos % (Auto) Baso % (Auto) Lymph # (Auto) [place] # (Auto) Eos # (Auto) Baso # (Auto) Abs Immat Gran (auto) Absolute Neuts (auto) Absolute Nucleated RBC Nucleated RBC % (auto) Smear Tech's Comments PT INR APTT PTT (Heparin Protocol) Fibrinogen D-Dimer Hep-Ind Thrombocytop Com O2 Saturation ABG pH at Pt Temp ABG pH (Temp Correct) ABG pCO2 at Pt Temp ABG pCO2 (Temp Corrct ABG pO2 at Pt Temp ABG pO2 (Temp Correct ABG HCO3 ABG Base Excess (Actual) VBG pH 7.51 H VBG pCO2 44 VBG pO2 41 VBG HCO3 36 H VBG O2 Saturation 67.0 VBG Base Excess 12.0 Sodium Potassium Chloride Carbon Dioxide Anion Gap BUN Creatinine Estim Creat Clear Calc Estimated GFR POC Glucose 114 Random Glucose Osmolality Lactic Acid Lactic Acid Fup @ 2Hr Lactic Acid Fup @ 4Hr Calcium Phosphorus Magnesium Total Bilirubin AST ALT Alkaline Phosphatase Troponin I High Sens B-Natriuretic Peptide Total Protein Albumin Lipase TSH Urine Color YELLOW Urine Appearance HAZY Urine pH 7.5 Ur Specific [place] 1.010 Urine Protein 2+ H Urine Glucose (UA) NEG Urine Ketones NEG Urine Blood TRACE Urine Nitrite NEG Ur Leukocyte Esterase NEG Urine RBC 15-29 H Urine WBC 0-2 Ur Squamous Epith Cells NONE Urine Bacteria 1+ Hyaline Casts Granular Casts Urine Mucus 1+ Urine Osmolality Ur Random Sodium Ur Random Chloride Ur Random Potassium Stool Occult Blood Ethyl Alcohol Heparin Dep Plt Ab OD Hep-Induced Plt Ab Daniela COVID-19 ([facility]) COVID-19 Clin Com Blood Type Antibody Screen Direct Antiglob Test SUSANNE, Polyspecific Crossmatch 01/12/21 01/12/21 01/12/21 11:54 16:14 17:54 WBC RBC Hgb Hct MCV MCH MCHC RDW Plt Count MPV Immature Gran % (Auto) Neut % (Auto) Lymph % (Auto) [place] % (Auto) Eos % (Auto) Baso % (Auto) Lymph # (Auto) [place] # (Auto) Eos # (Auto) Baso # (Auto) Abs Immat Gran (auto) Absolute Neuts (auto) Absolute Nucleated RBC Nucleated RBC % (auto) Smear Tech's Comments PT INR APTT PTT (Heparin Protocol) Fibrinogen D-Dimer Hep-Ind Thrombocytop Com O2 Saturation ABG pH at Pt Temp ABG pH (Temp Correct) ABG pCO2 at Pt Temp ABG pCO2 (Temp Corrct ABG pO2 at Pt Temp ABG pO2 (Temp Correct ABG HCO3 ABG Base Excess (Actual) VBG pH VBG pCO2 VBG pO2 VBG HCO3 VBG O2 Saturation VBG Base Excess Sodium Potassium 2.8 L Chloride Carbon Dioxide Anion Gap BUN Creatinine Estim Creat Clear Calc Estimated GFR POC Glucose 122 H 88 Random Glucose Osmolality Lactic Acid Lactic Acid Fup @ 2Hr Lactic Acid Fup @ 4Hr Calcium Phosphorus Magnesium Total Bilirubin AST ALT Alkaline Phosphatase Troponin I High Sens B-Natriuretic Peptide Total Protein Albumin Lipase TSH Urine Color Urine Appearance Urine pH Ur Specific [place] Urine Protein Urine Glucose (UA) Urine Ketones Urine Blood Urine Nitrite Ur Leukocyte Esterase Urine RBC Urine WBC Ur Squamous Epith Cells Urine Bacteria Hyaline Casts Granular Casts Urine Mucus Urine Osmolality Ur Random Sodium Ur Random Chloride Ur Random Potassium Stool Occult Blood Ethyl Alcohol Heparin Dep Plt Ab OD Hep-Induced Plt Ab Daniela COVID-19 ([facility]) COVID-19 Clin Com Blood Type Antibody Screen Direct Antiglob Test SUSANNE, Polyspecific Crossmatch 01/12/21 01/12/21 01/13/21 23:00 23:30 05:24 WBC RBC Hgb Hct MCV MCH MCHC RDW Plt Count MPV Immature Gran % (Auto) Neut % (Auto) Lymph % (Auto) [place] % (Auto) Eos % (Auto) Baso % (Auto) Lymph # (Auto) [place] # (Auto) Eos # (Auto) Baso # (Auto) Abs Immat Gran (auto) Absolute Neuts (auto) Absolute Nucleated RBC Nucleated RBC % (auto) Smear Tech's Comments PT INR APTT PTT (Heparin Protocol) Fibrinogen D-Dimer Hep-Ind Thrombocytop Com O2 Saturation ABG pH at Pt Temp ABG pH (Temp Correct) ABG pCO2 at Pt Temp ABG pCO2 (Temp Corrct ABG pO2 at Pt Temp ABG pO2 (Temp Correct ABG HCO3 ABG Base Excess (Actual) VBG pH 7.43 VBG pCO2 45 VBG pO2 42 VBG HCO3 31 H VBG O2 Saturation 70.0 VBG Base Excess 6.1 Sodium Potassium 3.3 Chloride Carbon Dioxide Anion Gap BUN Creatinine Estim Creat Clear Calc Estimated GFR POC Glucose 96 Random Glucose Osmolality Lactic Acid Lactic Acid Fup @ 2Hr Lactic Acid Fup @ 4Hr Calcium Phosphorus Magnesium Total Bilirubin AST ALT Alkaline Phosphatase Troponin I High Sens B-Natriuretic Peptide Total Protein Albumin Lipase TSH Urine Color Urine Appearance Urine pH Ur Specific [place] Urine Protein Urine Glucose (UA) Urine Ketones Urine Blood Urine Nitrite Ur Leukocyte Esterase Urine RBC Urine WBC Ur Squamous Epith Cells Urine Bacteria Hyaline Casts Granular Casts Urine Mucus Urine Osmolality Ur Random Sodium Ur Random Chloride Ur Random Potassium Stool Occult Blood Ethyl Alcohol Heparin Dep Plt Ab OD Hep-Induced Plt Ab Daniela COVID-19 ([facility]) COVID-19 Clin Com Blood Type Antibody Screen Direct Antiglob Test SUSANNE, Polyspecific Crossmatch 01/13/21 01/13/21 01/13/21 05:25 05:25 05:25 WBC 13.0 H RBC 2.94 L Hgb 9.4 L Hct 29.6 L MCV 100.7 H MCH 32.0 MCHC 31.8 RDW 17.6 H Plt Count 324 D MPV 10.8 Immature Gran % (Auto) 1.4 H Neut % (Auto) 86.8 H Lymph % (Auto) 5.4 L [place] % (Auto) 5.7 Eos % (Auto) 0.5 Baso % (Auto) 0.2 Lymph # (Auto) 0.7 L [place] # (Auto) 0.7 Eos # (Auto) 0.1 Baso # (Auto) 0.0 Abs Immat Gran (auto) 0.18 H Absolute Neuts (auto) 11.3 H Absolute Nucleated RBC 0.000 Nucleated RBC % (auto) 0.0 Smear Tech's Comments PT INR APTT PTT (Heparin Protocol) Fibrinogen D-Dimer Hep-Ind Thrombocytop Com O2 Saturation ABG pH at Pt Temp ABG pH (Temp Correct) ABG pCO2 at Pt Temp ABG pCO2 (Temp Corrct ABG pO2 at Pt Temp ABG pO2 (Temp Correct ABG HCO3 ABG Base Excess (Actual) VBG pH VBG pCO2 VBG pO2 VBG HCO3 VBG O2 Saturation VBG Base Excess Sodium 145 Potassium 3.2 L Chloride 105 Carbon Dioxide 30 H Anion Gap 13 BUN 15 Creatinine 0.60 Estim Creat Clear Calc 105.0 Estimated GFR > 60 POC Glucose Random Glucose 103 Osmolality Lactic Acid Lactic Acid Fup @ 2Hr Lactic Acid Fup @ 4Hr Calcium 8.4 D Phosphorus 3.5 Magnesium 1.8 Total Bilirubin AST ALT Alkaline Phosphatase Troponin I High Sens B-Natriuretic Peptide 901 H Total Protein Albumin Lipase TSH Urine Color Urine Appearance Urine pH Ur Specific [place] Urine Protein Urine Glucose (UA) Urine Ketones Urine Blood Urine Nitrite Ur Leukocyte Esterase Urine RBC Urine WBC Ur Squamous Epith Cells Urine Bacteria Hyaline Casts Granular Casts Urine Mucus Urine Osmolality Ur Random Sodium Ur Random Chloride Ur Random Potassium Stool Occult Blood Ethyl Alcohol Heparin Dep Plt Ab OD Hep-Induced Plt Ab Daniela COVID-19 ([facility]) COVID-19 Clin Com Blood Type Antibody Screen Direct Antiglob Test SUSANNE, Polyspecific Crossmatch 01/13/21 12:15 WBC RBC Hgb Hct MCV MCH MCHC RDW Plt Count MPV Immature Gran % (Auto) Neut % (Auto) Lymph % (Auto) [place] % (Auto) Eos % (Auto) Baso % (Auto) Lymph # (Auto) [place] # (Auto) Eos # (Auto) Baso # (Auto) Abs Immat Gran (auto) Absolute Neuts (auto) Absolute Nucleated RBC Nucleated RBC % (auto) Smear Tech's Comments PT INR APTT PTT (Heparin Protocol) Fibrinogen D-Dimer Hep-Ind Thrombocytop Com O2 Saturation ABG pH at Pt Temp ABG pH (Temp Correct) ABG pCO2 at Pt Temp ABG pCO2 (Temp Corrct ABG pO2 at Pt Temp ABG pO2 (Temp Correct ABG HCO3 ABG Base Excess (Actual) VBG pH VBG pCO2 VBG pO2 VBG HCO3 VBG O2 Saturation VBG Base Excess Sodium Potassium Chloride Carbon Dioxide Anion Gap BUN Creatinine Estim Creat Clear Calc Estimated GFR POC Glucose 120 H Random Glucose Osmolality Lactic Acid Lactic Acid Fup @ 2Hr Lactic Acid Fup @ 4Hr Calcium Phosphorus Magnesium Total Bilirubin AST ALT Alkaline Phosphatase Troponin I High Sens B-Natriuretic Peptide Total Protein Albumin Lipase TSH Urine Color Urine Appearance Urine pH Ur Specific [place] Urine Protein Urine Glucose (UA) Urine Ketones Urine Blood Urine Nitrite Ur Leukocyte Esterase Urine RBC Urine WBC Ur Squamous Epith Cells Urine Bacteria Hyaline Casts Granular Casts Urine Mucus Urine Osmolality Ur Random Sodium Ur Random Chloride Ur Random Potassium Stool Occult Blood Ethyl Alcohol Heparin Dep Plt Ab OD Hep-Induced Plt Ab Daniela COVID-19 (MEERA) COVID-19 Clin Com Blood Type Antibody Screen Direct Antiglob Test SUSANNE, Polyspecific Crossmatch Narrative Narrative: Tracheostomy tube in place. Inserted 01/08/2021. Patient awake. Appropriately responsive. Seems to understand about procedure but consents have been obtained from her daughter who is her primary contact and patient agrreable to me obtaining consent for anesthesia from her daughter. Airway Heart: Irregular Lungs: Diminished sounds. Rhonchi Assessment and Plan Assessment Anesthesia Assessment: Anesthesia Plan Discussed and Chart Reviewed Final Anesthetic Review NPO: Yes ASA Class: IV Final Preanesthetic Review: No Changes in Pt Med Stat, Meds/Allgs Chart Reviewed, Consent Obtained/Reviewed and Anes Risks/Benef Reviewed Patient Risk: High Procedure Risk: Low Anesthetic Plan Anesthetic Plan: GA Disposition: Inp. Admit - ICU
[2021-01-13] MEDS: Spironolactone 25 MG TABLET G-TUBE (13:15)
[2021-01-13] MEDS: Potassium Chloride/H20 40 MEQ/100 ML PIGGYBACK 50 MEQ IV ×2 (13:17→15:18)
[2021-01-13 13:18] LABS: Glucose, Whole Blood 119 mg/dL (60-115)
[2021-01-13] MEDS: Esmolol HCl/NaCl Iso 2,500 MG/250 ML IV.SOLN 49.6 MG IVCONT ×2 (17:09→21:10)
--- NOTE | 2021-01-13 17:16 | P.PNCC_ITS ---
Subjective Subjective Date of Service: 01/13/21 Interval History: Mrs. Ch was transferred to ICU on December 27 after a cardiac arrest on [facility]. The patient is a 75 yo woman with PMHx of morbid obesity, ANITA noncompliant w CPAP, hypertension, hyperlipidemia, anxiety, h/o SD, h/o PAFib on Eliquis, and h/o chronic back pain status post surgery. The patient also has a h/o head and neck carcinoma in 2007, treated at that time with chemo/RTx and has been remission since. The patient was hospitalized here on 11/17- with Afib w RVR with acute diastolic CHF and hyponatremia. Echo on 11/19 showed normal LV systolic function, w EF 60-65%. No obvious valvular pathology. RV cavity size was normal with mildly decreased right ventricular systolic function. The IVC was dilated and collapsed less than 50% with inspiration. Mild pulmonary hypertension was present. The Afib was addressed successfully via cardioversion on November 24. She was diuresed with Lasix. 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 A CT of her head and neck revealed no clear lesions. CT chest showed multiple small nodules, and a small right pleural eff. Dr. Calvillo recommended an ENT exam to look for any recurrent lesion. The patient was discharged on 11/26 on flecainide and metoprolol and Eliquis. HISTORY OF PRESENT ILLNESS: The patient was readmitted on December 13 with hyponatremia, CHF, and fluid overload. She was in sinus rhythm. She was managed medically and Flecainide, Lopressor, and Eliquis were continued. At some point, she went back into Afib. With the Lasix, her bicarb started rising. She developed trouble eating and swallowing. She was seen by Dr. Whiting. Her base excess delfino into the 20?s, and she developed a marked hypercarbia, altho without CO2 narcosis. On 12/23, she was started on Provigil, and nighttime CPAP was changed to BiPAP. Her hypercarbia improved. On 12/24, she underwent EGD and was found to have gastric polyps and an esophageal stricture. She underwent biopsies and balloon dil[place] [facility] wit h a small tear noted. She?d been getting low dose [place] oxygen the entire hospital stay (was not on oxygen at home). On December 27 the patient had a bradycardic arrest. CPR was started immediately. She was defib?ed three times, got three rounds of epi, and was intubated. CPR duration was 10 minutes. She was awake and responsive after the code. The patient was transferred to ICU, where she was awake and trying to talk. She was therefore not cooled. Echo was notable for normal LV size and fxn, with no RWMA. RV was enlarged with good function, w large RA. The IVC was large with no insp collapse. CT pulmonary angiogram showed no pulmonary emboli. RV was mildly enlarged. She had large bilateral pleural effusions with compressive atelectasis, and rib fx?s 2? vigorous CPR. Anticoagulation was held. She was extubated to BiPAP on December 29. On December 30, a right pleural drainage catheter was placed and drained 2500 cc of bloody fluid (probably hemothorax 2? CPR). She had to be reintubated after that bec of hypercarbia. Her right lung reexpanded nicely after the fluid drainage. The patient was extubated again on 01/04, but required reintubation the next day 2? aspiration. The right pleural drainage tube was removed on January 08 and the patient underwent open tracheostomy by Dr. Castro that same day. A fenestrated tracheostomy tube was placed. On 01/09, a venous duplex scan of her left UE (done bec of generalized swelling of the arm) showed thrombosis of one of her left brachial veins, so she was put on full dose Lovenox. Yesterday went onto trach collar with no problem. She was breathing easy and stayed on the trach collar all day, with Sat 99% on 28% TC. She stayed on the trach collar overnite, with RR low-mid 20?s, Sat mid 90?s on 30% TC. This morning she went to the OR for PEG by Dr. Castro. No problems. She was put back on the ventilator on return from the OR. We got her back on TC later, but this afternoon she?s fatigued with resp paradox, so we put her back on the ventilator. On PSV 10/35%/+5, RR is 24, Vt 350cc, Ve 8.7L. Sat is 97%. HR 100, afib. BP 124/60. On esmolol at 75ug, and still on Lasix drip at 2mg/hr. Been afebrile for 24 hrs. She?s fully awake and seems appropriately interactive. No visible JVD. 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 Chest has course BS, w normal exp phase. Irreg rate and rhythm, with normal-sounding S1 and S2, with no murmur or gallops. The abdomen is benign. She has 1-2+ pitting edema, possibly very light anasarca. Neuro exam is nonfocal, she moves all 4. LABORATORY DATA: As below. Notably, BE is +6. WBC is up to 13. Sodium is 145, potassium is 3.2 after mult KCL boluses yest. Bicarb is down to 30 on the diamox, BUN and creatinine are steady at 15/0.6, BNP is still elevated at 901. MICROBIOLOGY: Blood cultures from January 10 are negative. Sputum from January 12 shows 3+ polys w mixed resp kylah. IMPRESSION: 1. Underlying obesity and ANITA. 2. Underlying cor pulmonale and right heart failure on that basis. 3. Status post cardiac arrest. Etiology unclear. Possibly respiratory in origin. Seems to have made a complete recovery despite 10 minutes CPR time. 4. CAD and Diastolic congestive heart failure. Continuing to diurese. 5. Underlying atrial fibrillation. Rate is borderline controlled with esmolol. I?ll start oral metoprolol. She is currently fully anticoagulated because of a left upper extremity DVT. 6. Hypoxemic and hypercarbic respiratory failure secondary to ANITA and pulmonary aspiration. Status post tracheostomy. She?s borderline on trach collar. Might need nocturnal ventilation for a couple more days. 7. Hemo thorax. Presumably secondary to broken ribs during CPR. Status post drainage. 8. Acute kidney injury. Resolved. 9. Diabetes mellitus. On sliding scale insulin. 10. GI: Esophageal stricture, status post balloon dilatation by Dr. Rainey. PEG went well today. Start tube feeds tomorrow. 11. Hypernatremia. Bec of diuresis. May need to add free water. 12. Severe hyperkalemia. Secondary to diuresis. Add spironolactone, replete and follow. 13. Severe metabolic alkalosis. Secondary to diuresis. Much improved on Diamox. Probably needs another few doses. 14. Neuro: Seems to have made complete neurologic recovery (although I cannot rule out the possibility that recurrent aspiration is possibly secondary to residual partial neurologic deficit). 15. History of head and neck cancer. Ongoing consideration as described above. 16. Nutrition. PEG today, then start tube feeds tomorrow. Updated family at the bedside. Critical care time): 60 min. Critical Care Time (minutes): 60 Physical Exam Vital Signs: Vital Signs: Last Vital Signs Temp 99.5 F 01/13/21 16:53 Pulse 148 H 01/13/21 17:06 Resp 28 H 01/13/21 17:08 BP 124/62 01/13/21 16:53 Pulse Ox 97 01/13/21 16:53 Oxygen Flow Rate 2 12/26/20 15:00 Body Mass Index 39.2 Objective Data Labs CBC & Chem 7: 01/13/21 05:25 01/13/21 05:25 Labs: Laboratory Results - last 24 hr 01/12/21 01/12/21 01/12/21 17:54 23:00 23:30 WBC RBC Hgb Hct MCV MCH MCHC RDW Plt Count MPV Immature Gran % (Auto) Neut % (Auto) Lymph % (Auto) [place] % (Auto) Eos % (Auto) Baso % (Auto) Lymph # (Auto) [place] # (Auto) Eos # (Auto) Baso # (Auto) Abs Immat Gran (auto) Absolute Neuts (auto) Absolute Nucleated RBC Nucleated RBC % (auto) VBG pH VBG pCO2 VBG pO2 VBG HCO3 VBG O2 Saturation VBG Base Excess Sodium Potassium 3.3 Chloride Carbon Dioxide Anion Gap BUN Creatinine Estim Creat Clear Calc Estimated GFR POC Glucose 88 96 Random Glucose Calcium Phosphorus Magnesium B-Natriuretic Peptide 01/13/21 01/13/21 01/13/21 05:24 05:25 05:25 WBC 13.0 H RBC 2.94 L Hgb 9.4 L Hct 29.6 L MCV 100.7 H MCH 32.0 MCHC 31.8 RDW 17.6 H Plt Count 324 D MPV 10.8 Immature Gran % (Auto) 1.4 H Neut % (Auto) 86.8 H Lymph % (Auto) 5.4 L [place] % (Auto) 5.7 Eos % (Auto) 0.5 Baso % (Auto) 0.2 Lymph # (Auto) 0.7 L [place] # (Auto) 0.7 Eos # (Auto) 0.1 Baso # (Auto) 0.0 Abs Immat Gran (auto) 0.18 H Absolute Neuts (auto) 11.3 H Absolute Nucleated RBC 0.000 Nucleated RBC % (auto) 0.0 VBG pH 7.43 VBG pCO2 45 VBG pO2 42 VBG HCO3 31 H VBG O2 Saturation 70.0 VBG Base Excess 6.1 Sodium 145 Potassium 3.2 L Chloride 105 Carbon Dioxide 30 H Anion Gap 13 BUN 15 Creatinine 0.60 Estim Creat Clear Calc 105.0 Estimated GFR > 60 POC Glucose Random Glucose 103 Calcium 8.4 D Phosphorus 3.5 Magnesium 1.8 B-Natriuretic Peptide 01/13/21 01/13/21 01/13/21 05:25 12:15 13:08 WBC RBC Hgb Hct MCV MCH MCHC RDW Plt Count MPV Immature Gran % (Auto) Neut % (Auto) Lymph % (Auto) [place] % (Auto) Eos % (Auto) Baso % (Auto) Lymph # (Auto) [place] # (Auto) Eos # (Auto) Baso # (Auto) Abs Immat Gran (auto) Absolute Neuts (auto) Absolute Nucleated RBC Nucleated RBC % (auto) VBG pH VBG pCO2 VBG pO2 VBG HCO3 VBG O2 Saturation VBG Base Excess Sodium Potassium Chloride Carbon Dioxide Anion Gap BUN Creatinine Estim Creat Clear Calc Estimated GFR POC Glucose 120 H 119 H Random Glucose Calcium Phosphorus Magnesium B-Natriuretic Peptide 901 H Microbiology Microbiology Results: Microbiology 01/12/21 10:41 Sputum - Suctioned Gram Stain - Final 01/12/21 10:41 Sputum - Suctioned Sputum Culture - Preliminary 01/10/21 06:11 Blood - Venous Blood Culture - Preliminary No growth after 48 hours. 01/10/21 06:11 Blood - Venous Blood Culture - Preliminary No growth after 48 hours. 12/30/20 06:29 Blood - Venous Blood Culture - Final No growth after 5 days. 12/30/20 06:20 Blood - Venous Blood Culture - Final No growth after 5 days. 12/31/20 15:59 Sputum - Suctioned Gram Stain - Final 12/31/20 15:59 Sputum - Suctioned Sputum Culture - Final 12/30/20 06:37 Kidney - Jones Catheter Urine Culture - Final No growth. 12/27/20 17:56 Sputum - Suctioned Gram Stain - Final 12/27/20 17:56 Sputum - Suctioned Sputum Culture - Final 12/27/20 17:53 Urine clean catch - Clean Catch Midstream Urine Culture - Final No growth. Critical Care Time Critical Care Time (minutes): 60
[2021-01-13 17:28] LABS: Glucose, Whole Blood 113 mg/dL (60-115)
[2021-01-13] MEDS: Metoprolol Tartrate 25 MG TABLET G-TUBE (18:26)
--- NOTE | 2021-01-13 18:45 | PC.NURSE ---
Addendum entered by Akila Wade RN 01/13/21 18:49: EDIT: PEG TO LUQ, NOT RIGHT. Original Note: PEG TUBE PLACED TO RUQ. TREATED WITH PRN FENTANYL X 1 POST PEG. REMAINS BACK ON VENT PS 10/5 ON 35%. PER MD - PLEASE LEAVE ON VENT TO REST UNTIL MORNING. 02 GOAL > 92%. FAMILY BEDSIDE AND UPDATED BY THIS RN.
[2021-01-13 18:57] LABS: Potassium 4.1 mmol/L (3.3-5.1)
[2021-01-13 23:58] LABS: Glucose, Whole Blood 132 mg/dL (60-115)
[2021-01-14] VITALS (54 sets, daily range): BP systolic 62–152; BP diastolic 37–91; PULSE 100–159; RESP 22–33; TEMP 33.5–38.4; O2SAT 82–100
[2021-01-14] MEDS: Enoxaparin Sodium 100 MG/ML SYRINGE SUBCUT (01:37)
[2021-01-14] MEDS: Metoprolol Tartrate 25 MG TABLET G-TUBE (01:37)
[2021-01-14] MEDS: Esmolol HCl/NaCl Iso 2,500 MG/250 ML IV.SOLN 66.13 MG IVCONT ×5 (01:38→19:03)
[2021-01-14] MEDS: Lactated Ringers 1,000 ML 999 ML IV (02:00)
[2021-01-14] MEDS: Pantoprazole Sodium 40 MG/10 ML VIAL 80 MG IVPUSH (02:10)
[2021-01-14 02:16] LABS: Basophils Percent Auto 0.2 % (0-2); Hematocrit 25.5 % (37-47); Hemoglobin 7.7 g/dl (12.0-16.0); Imm Gran Abs Auto 0.15 X10*3/uL (0.00-0.03); Imm Gran Pct Auto 1.1 % (0.0-0.4); Lymphocytes Absolute Auto 0.5 X10*3/uL (1.2-4.9); Lymphocytes Percent Auto 3.7 % (20-40); MANUAL DIFF FLAG SCAN; Mean Corpuscular HGB Conc 30.2 g/dl (31.0-35.0); Mean Corpuscular Hemoglobin 31.3 pg (27.0-33.0); Mean Corpuscular Volume 103.7 fL (80-98); Mean Platelet Volume 10.5 fL (9.4-12.3); Monocytes Absolute Auto 0.5 X10*3/uL (0.1-1.2); Monocytes Percent Auto 3.6 % (2-11); NRBC Pct Auto 0.3 /100WBC (0.0-0.2); Neutrophils Percent Auto 91.4 % (45-73); Platelet Count 310 X10*3/uL (160-400); Red Blood Count 2.46 X10*6/uL (4.20-5.50); Red Cell Distribution Width 18.3 % (11.0-16.0); SCAN SMEAR FLAG 1; White Blood Count 13.2 X10*3/uL (4.8-10.8)
[2021-01-14 02:22] LABS: INTERNATIONAL NORM RATIO 1.8 (0.9-1.1); Prothrombin Time 21.6 SEC (10.8-13.0)
[2021-01-14 02:24] LABS: Partial Thromboplastin Time 30.4 SEC (24.1-38.0)
--- NOTE | 2021-01-14 02:29 | P.PNCC_ITS ---
Subjective Subjective Date of Service: 01/14/21 Critical Care Time (minutes): 60 Comment: Clinical Precedent to this date: Patient with morbid obesity, obstructive sleep apnea, hypertension, hyperlipidemia, anxiety, coronary artery disease, paroxysmal AFib, reason left upper extremity DVT and current anticoagulation with Lovenox also has a history of head and neck carcinoma treated with chemo and radiation back in 2007. Recently hospitalized due to AFib with rapid ventricular response and CHF, hyponatremia likely related to SIADH. While in the hospital she had developed respiratory failure and hypercarbia without CO2 narcosis. She underwent an EGD on 12/24 and was found to have gastric polyps and esophageal stricture. Balloon dilation had been done. Patient also developed bradycardic arrest on December 27. She received CPR for approximately 10 minutes and was successfully resuscitated. On the 24/01 she had a pleural drainage as she might have developed a hemothorax during the CPR. Patient had been reintubated due to hypercarbia and subsequently a tracheostomy was placed on January 08. On the a left upper extremity DVT was noted and she was placed on Lovenox full dose b.i.d.. As of yesterday, the patient underwent PEG placement by Dr. Castro without any issues. Today approximately 2:05 in the morning, patient's nurse noted a significant bloody residual from the PEG site, upon aspiration a total of 920 cc of of red bloody material was suctioned. Her blood pressure was about 130 systolic and is now down to 95, heart rate is also higher than before from low 90s to 100 and now 130 VS: Blood pressure 95/57, heart rate 130 and irregular, respirations 31, O2 sat 99% while on pressure control ventilation 10/5; 35% FiO2 General: Alert oriented x3 no acute distress Skin: The stomach area shows no evidence of bleeding externally. Cardiac: Irregularly irregular 130 beats per minutes on average, no gallops, murmurs. Pulmonary: Clear to auscultation, no wheezes, rales or rhonchi. Abdomen: Left upper quadrant PEG site as above, Protuberant, positive bowel sounds in all 4 quadrants. Soft, nontender, no rebound or guarding. No CVA tenderness. Neurologic: As above, no focal deficits. Vascular: 2+ pulses upper and lower extremities distally. SIGNIFICANT LABORATORY DATA: Reviewed from yesterday was reviewed, H&H was 9.4 and 29.6 respectively. Renal function normal. REVIEW OF IMAGES: Will obtain CT of the abdomen and pelvis without contrast ASSESSMENT AND PLAN: 1. Hemorrhagic shock from Acute postop bleeding from internal PEG site (recently post op) on Lovenox 100mg q 12h for DVT LUE 2. Tachycardia and hypotension due to the above Patient appears to be bleeding internally from the PEG site placement area, almost 900 cc of fresh blood was obtained on aspiration by nursing personnel after noting a significant residual. Will attempt fluid resuscitation with crystalloids, will stop Lasix, order packed red blood cells, full set of labs, CT of the abdomen and pelvis and depending on the findings will plan on contacting the surgeon who performed the procedure. GI PROPHYLAXIS: Will start her on Protonix IV with a load and then every 12 hours, altered tried drip. DVT PROPHYLAXIS: Stop Lovenox, administer protamine sulfate 50 mg IV x1; start pneumatic stocks ' 0300 H&H is down to 7.7 and 25.5 respectively from 9.4 vent 29.6. BUN to creatinine ratio is greater than 20, INR 1.8, PTT 18. Patient has been typed and crossed and 2 units of blood are on hold which will likely be administered and I will also give her vitamin K. Awaiting CT result, I have called [facility] to get a stat reading, from my view, I am concerned there is free air present to my view. [address] Salazar from [facility] who reports normal free air from recent peg placement, some fluid in the stomach and pleural efussions but no signs of perf or intra abd hemorrhage. Pt likely bleeding simply due to Lovenox administration; given the blood clot in her DONTA ext may night an IVCF vs Hep gtt which will allow us to have a better control if she was to rebleed. Critical care time used for critical evaluation of this patient, diagnosis, treatment and coordination of care, review her records and documentation TOTAL CRITICAL CARE TIME 60 MIN Patient's care was discussed in detail with Dr. Lopez. He is aware of all the above as well as the plan of care for this patient. Physical Exam Vital Signs: Vital Signs: Last Vital Signs Temp 98.6 F 01/14/21 00:00 Pulse 114 H 01/14/21 01:37 Resp 26 H 01/14/21 01:00 BP 133/55 L 01/14/21 01:37 Pulse Ox 97 01/14/21 01:00 Oxygen Flow Rate 2 12/26/20 15:00 Body Mass Index 39.2 Objective Data Labs CBC & Chem 7: 01/14/21 22:05 01/14/21 12:24 Labs: Laboratory Results - last 24 hr 01/13/21 01/13/21 01/13/21 05:24 05:25 05:25 WBC 13.0 H RBC 2.94 L Hgb 9.4 L Hct 29.6 L MCV 100.7 H MCH 32.0 MCHC 31.8 RDW 17.6 H Plt Count 324 D MPV 10.8 Immature Gran % (Auto) 1.4 H Neut % (Auto) 86.8 H Lymph % (Auto) 5.4 L [place] % (Auto) 5.7 Eos % (Auto) 0.5 Baso % (Auto) 0.2 Lymph # (Auto) 0.7 L [place] # (Auto) 0.7 Eos # (Auto) 0.1 Baso # (Auto) 0.0 Abs Immat Gran (auto) 0.18 H Absolute Neuts (auto) 11.3 H Absolute Nucleated RBC 0.000 Nucleated RBC % (auto) 0.0 PT INR APTT VBG pH 7.43 VBG pCO2 45 VBG pO2 42 VBG HCO3 31 H VBG O2 Saturation 70.0 VBG Base Excess 6.1 Sodium 145 Potassium 3.2 L Chloride 105 Carbon Dioxide 30 H Anion Gap 13 BUN 15 Creatinine 0.60 Estim Creat Clear Calc 105.0 Estimated GFR > 60 POC Glucose Random Glucose 103 Calcium 8.4 D Phosphorus 3.5 Magnesium 1.8 B-Natriuretic Peptide Crossmatch 01/13/21 01/13/21 01/13/21 05:25 12:15 13:08 WBC RBC Hgb Hct MCV MCH MCHC RDW Plt Count MPV Immature Gran % (Auto) Neut % (Auto) Lymph % (Auto) [place] % (Auto) Eos % (Auto) Baso % (Auto) Lymph # (Auto) [place] # (Auto) Eos # (Auto) Baso # (Auto) Abs Immat Gran (auto) Absolute Neuts (auto) Absolute Nucleated RBC Nucleated RBC % (auto) PT INR APTT VBG pH VBG pCO2 VBG pO2 VBG HCO3 VBG O2 Saturation VBG Base Excess Sodium Potassium Chloride Carbon Dioxide Anion Gap BUN Creatinine Estim Creat Clear Calc Estimated GFR POC Glucose 120 H 119 H Random Glucose Calcium Phosphorus Magnesium B-Natriuretic Peptide 901 H Crossmatch 01/13/21 01/13/21 01/13/21 17:25 18:24 23:54 WBC RBC Hgb Hct MCV MCH MCHC RDW Plt Count MPV Immature Gran % (Auto) Neut % (Auto) Lymph % (Auto) [place] % (Auto) Eos % (Auto) Baso % (Auto) Lymph # (Auto) [place] # (Auto) Eos # (Auto) Baso # (Auto) Abs Immat Gran (auto) Absolute Neuts (auto) Absolute Nucleated RBC Nucleated RBC % (auto) PT INR APTT VBG pH VBG pCO2 VBG pO2 VBG HCO3 VBG O2 Saturation VBG Base Excess Sodium Potassium 4.1 D Chloride Carbon Dioxide Anion Gap BUN Creatinine Estim Creat Clear Calc Estimated GFR POC Glucose 113 132 H Random Glucose Calcium Phosphorus Magnesium B-Natriuretic Peptide Crossmatch 01/14/21 01/14/21 01/14/21 02:05 02:05 02:22 WBC 13.2 H RBC 2.46 L Hgb 7.7 L Hct 25.5 L MCV 103.7 H MCH 31.3 MCHC 30.2 L RDW 18.3 H Plt Count 310 MPV 10.5 Immature Gran % (Auto) Neut % (Auto) Lymph % (Auto) [place] % (Auto) Eos % (Auto) Baso % (Auto) Lymph # (Auto) [place] # (Auto) Eos # (Auto) Baso # (Auto) Abs Immat Gran (auto) Absolute Neuts (auto) Absolute Nucleated RBC Nucleated RBC % (auto) PT 21.6 H D INR 1.8 H APTT 30.4 VBG pH VBG pCO2 VBG pO2 VBG HCO3 VBG O2 Saturation VBG Base Excess Sodium Potassium Chloride Carbon Dioxide Anion Gap BUN Creatinine Estim Creat Clear Calc Estimated GFR POC Glucose Random Glucose Calcium Phosphorus Magnesium B-Natriuretic Peptide Crossmatch See Detail Microbiology Microbiology Results: Microbiology 01/12/21 10:41 Sputum - Suctioned Gram Stain - Final 01/12/21 10:41 Sputum - Suctioned Sputum Culture - Preliminary 01/10/21 06:11 Blood - Venous Blood Culture - Preliminary No growth after 48 hours. 01/10/21 06:11 Blood - Venous Blood Culture - Preliminary No growth after 48 hours. 05/26/21 06:29 Blood - Venous Blood Culture - Final No growth after 5 days. 12/30/20 06:20 Blood - Venous Blood Culture - Final No growth after 5 days. 12/31/20 15:59 Sputum - Suctioned Gram Stain - Final 12/31/20 15:59 Sputum - Suctioned Sputum Culture - Final 12/30/20 06:37 Kidney - Jones Catheter Urine Culture - Final No growth. 12/27/20 17:56 Sputum - Suctioned Gram Stain - Final 12/27/20 17:56 Sputum - Suctioned Sputum Culture - Final 12/27/20 17:53 Urine clean catch - Clean Catch Midstream Urine Culture - Final No growth.
[2021-01-14 02:45] LABS: SLIDE REVIEW VERIFIED
[2021-01-14 02:54] LABS: Anion Gap 11 (12-20); Blood Urea Nitrogen 27 mg/dL (9-16); Calcium 8.2 mg/dL (8.4-10.2); Carbon Dioxide 29 mmol/L (22-29); Chloride 110 mmol/L (96-108); Estimated Glomerular Filt Rate > 60; Glucose Fasting 147 mg/dL (60-99); Potassium 3.9 mmol/L (3.3-5.1); Sodium 146 mmol/L (135-145)
[2021-01-14] MEDS: Octreotide Acetate 500 MCG in 0.9 % Sodium Chloride 500 ML 50.1 MCG IVCONT (03:24)
[2021-01-14] MEDS: Protamine Sulfate 50 MG/5 ML VIAL IV (03:28)
--- NOTE | 2021-01-14 04:56 | PC.NURSE ---
Addendum entered by Osmin Mckeon RN 01/14/21 06:11: peg drained additional 700ML rivera blood 2am-6am..pa aware ..for tranexamic acid Original Note: CARE ASSUMED 23:15...REMAINS CPAP 5/PSV 10/FIO2 35% VIA TRACH...RR 24-30...TV 400-450CC...SAO2 97-98%ESMOLOL DRIP PER OCT...LASIX DRIP 2 MG/HR AT HS...PEG CLAMPED...2AM PEG ASPIRATED PRIOR TO RECEIPT SCHEDULED LOPRESSOR...900ml RIVERA BLOOD ASPIRATED...ICU PA PRESENT...NOTIFIED/AWARE...STAT CT ABDOMEN DONE...PROTONIX 80MG IVP...PROTAMINE 50MG IV X1...VITAMIN K 20 MG IV X1...SANDOSTATIN 50 MCG/HR STARTED...LR 1000ml x1...LASIX DRIP D/C'D...PRBC X2 ORDERED AFTER TYPE/SCREEN..1ST PRBC INFUSED W/O INCIDENT...REMAINS ATRIAL FIB...LOVENOX D/C'D
[2021-01-14] MEDS: Pantoprazole Sodium 40 MG/10 ML VIAL IVPUSH ×2 (05:37→14:47)
[2021-01-14] MEDS: Tranexamic Acid 1,000 MG in 0.9 % Sodium Chloride 50 ML 360 MG IV (06:25)
[2021-01-14 06:54] LABS: VBG Base Excess -0.2 mmol/L; VBG HCO3 25 mmol/L (22-26); VBG pCO2 46 mmHg; VBG pH 7.34 (7.32-7.43); VBG pO2 41 mmHg
[2021-01-14 06:55] LABS: Basophils Percent Auto 0.1 % (0-2); Hematocrit 29.6 % (37-47); Hemoglobin 9.3 g/dl (12.0-16.0); Imm Gran Abs Auto 0.33 X10*3/uL (0.00-0.03); Imm Gran Pct Auto 2.2 % (0.0-0.4); Lymphocytes Absolute Auto 0.7 X10*3/uL (1.2-4.9); Lymphocytes Percent Auto 4.3 % (20-40); MANUAL DIFF FLAG SCAN; Mean Corpuscular HGB Conc 31.4 g/dl (31.0-35.0); Mean Corpuscular Hemoglobin 31.3 pg (27.0-33.0); Mean Corpuscular Volume 99.7 fL (80-98); Mean Platelet Volume 10.5 fL (9.4-12.3); Monocytes Absolute Auto 0.4 X10*3/uL (0.1-1.2); Monocytes Percent Auto 2.9 % (2-11); NRBC Pct Auto 0.4 /100WBC (0.0-0.2); Neutrophils Absolute Auto 13.5 X10*3/uL (2.0-8.3); Neutrophils Percent Auto 90.5 % (45-73); Platelet Count 239 X10*3/uL (160-400); Red Blood Count 2.97 X10*6/uL (4.20-5.50); Red Cell Distribution Width 17.3 % (11.0-16.0); SCAN SMEAR FLAG 1; Venous Blood Gas Refer to POC result
[2021-01-14] MEDS: Tranexamic Acid 1,000 MG in 0.9 % Sodium Chloride 250 ML 32.5 MG IV (07:05)
[2021-01-14 07:43] LABS: Alanine Aminotransferase 23 U/L (0-31); Albumin Level 2.9 g/dL (3.5-5.0); Alkaline Phosphatase 75 U/L (39-117); Anion Gap 13 (12-20); Aspartate Amino Transferase 29 U/L (5-31); Bilirubin Total 1.1 mg/dL (0.0-1.0); Blood Urea Nitrogen 32 mg/dL (9-16); Carbon Dioxide 26 mmol/L (22-29); Chloride 110 mmol/L (96-108); Creatinine Clr Calc Pharmacy 75.9; Estimated Glomerular Filt Rate > 60; Glucose Random 159 mg/dL (60-115); Potassium 4.3 mmol/L (3.3-5.1); Sodium 145 mmol/L (135-145); Total Protein 4.4 g/dL (6.5-8.0)
[2021-01-14] MEDS: Chlorhexidine Gluc Oral Rinse 15 ML MOUTHWASH BUCCAL ×3 (07:52→20:54)
[2021-01-14] MEDS: 0.9 % Sodium Chloride Flush 3 ML SYRINGE IVFLUSH ×2 (07:52→14:52)
[2021-01-14] MEDS: acetaZOLAMIDE sodium 500 MG VIAL IVPUSH (07:52)
[2021-01-14] MEDS: Nystatin Powder 15 GM BOTTLE 1 APPL TOPICAL ×3 (07:53→20:57)
--- NOTE | 2021-01-14 08:41 | P.PNGS_ITS ---
Subjective Subjective Date of Service: 01/14/21 Interval history: Underwent uneventful PEG tube placement yesterday Bloody PEG tube output overnight INR elevated Patient will had been getting Lovenox for a DVT of the upper arm Physical Exam Vital Signs: Vital Signs: Last Vital Signs Temp 98.1 F 01/14/21 08:00 Pulse 110 H 01/14/21 08:00 Resp 31 H 01/14/21 08:00 BP 107/59 L 01/14/21 08:00 Pulse Ox 96 01/14/21 08:00 Oxygen Flow Rate 2 12/26/20 15:00 Body Mass Index 39.2 Laboratory Results - last 24 hr 01/13/21 01/13/21 01/13/21 12:15 13:08 17:25 WBC RBC Hgb Hct MCV MCH MCHC RDW Plt Count MPV Immature Gran % (A uto) Neut % (Auto) Lymph % (Auto) [place] % (Auto) Eos % (Auto) Baso % (Auto) Lymph # (Auto) [place] # (Auto) Eos # (Auto) Baso # (Auto) Abs Immat Gran (au to) Absolute Neuts (au to) Absolute Nucleated RBC Nucleated RBC % (a uto) Smear Tech's Comme nts PT INR APTT VBG pH VBG pCO2 VBG pO2 VBG HCO3 VBG O2 Saturation VBG Base Excess Sodium Potassium Chloride Carbon Dioxide Anion Gap BUN Creatinine Estim Creat Clear Calc Estimated GFR POC Glucose 120 H 119 H 113 Random Glucose Fasting Glucose Calcium Total Bilirubin AST ALT Alkaline Phosphata se Total Protein Albumin Blood Type Antibody Screen Crossmatch 01/13/21 01/13/21 01/14/21 18:24 23:54 02:05 WBC 13.2 H RBC 2.46 L Hgb 7.7 L Hct 25.5 L MCV 103.7 H MCH 31.3 MCHC 30.2 L RDW 18.3 H Plt Count 310 MPV 10.5 Immature Gran % (A uto) 1.1 H Neut % (Auto) 91.4 H Lymph % (Auto) 3.7 L [place] % (Auto) 3.6 Eos % (Auto) 0.0 Baso % (Auto) 0.2 Lymph # (Auto) 0.5 L [place] # (Auto) 0.5 Eos # (Auto) 0.0 Baso # (Auto) 0.0 Abs Immat Gran (au to) 0.15 H Absolute Neuts (au to) 12.0 H Absolute Nucleated RBC 0.040 H Nucleated RBC % (a uto) 0.3 H Smear Tech's Comme nts VERIFIED PT INR APTT VBG pH VBG pCO2 VBG pO2 VBG HCO3 VBG O2 Saturation VBG Base Excess Sodium Potassium 4.1 D Chloride Carbon Dioxide Anion Gap BUN Creatinine Estim Creat Clear Calc Estimated GFR POC Glucose 132 H Random Glucose Fasting Glucose Calcium Total Bilirubin AST ALT Alkaline Phosphata se Total Protein Albumin Blood Type Antibody Screen Crossmatch 01/14/21 01/14/21 01/14/21 02:05 02:05 02:22 WBC RBC Hgb Hct MCV MCH MCHC RDW Plt Count MPV Immature Gran % (A uto) Neut % (Auto) Lymph % (Auto) [place] % (Auto) Eos % (Auto) Baso % (Auto) Lymph # (Auto) [place] # (Auto) Eos # (Auto) Baso # (Auto) Abs Immat Gran (au to) Absolute Neuts (au to) Absolute Nucleated RBC Nucleated RBC % (a uto) Smear Tech's Comme nts PT 21.6 H D INR 1.8 H APTT 30.4 VBG pH VBG pCO2 VBG pO2 VBG HCO3 VBG O2 Saturation VBG Base Excess Sodium 146 H Potassium 3.9 Chloride 110 H Carbon Dioxide 29 Anion Gap 11 L BUN 27 H D Creatinine 0.70 Estim Creat Clear Calc 90.0 Estimated GFR > 60 POC Glucose Random Glucose Fasting Glucose 147 H Calcium 8.2 L Total Bilirubin AST ALT Alkaline Phosphata se Total Protein Albumin Blood Type O Positive Antibody Screen NEGATIVE Crossmatch See Detail 01/14/21 01/14/21 01/14/21 05:45 05:45 06:47 WBC 15.0 H RBC 2.97 L D Hgb 9.3 L D Hct 29.6 L MCV 99.7 H MCH 31.3 MCHC 31.4 RDW 17.3 H Plt Count 239 MPV 10.5 Immature Gran % (A uto) 2.2 H Neut % (Auto) 90.5 H Lymph % (Auto) 4.3 L [place] % (Auto) 2.9 Eos % (Auto) 0.0 Baso % (Auto) 0.1 Lymph # (Auto) 0.7 L [place] # (Auto) 0.4 Eos # (Auto) 0.0 Baso # (Auto) 0.0 Abs Immat Gran (au to) 0.33 H Absolute Neuts (au to) 13.5 H Absolute Nucleated RBC 0.060 H Nucleated RBC % (a uto) 0.4 H Smear Tech's Comme nts PT INR APTT VBG pH 7.34 VBG pCO2 46 VBG pO2 41 VBG HCO3 25 VBG O2 Saturation 66.0 VBG Base Excess -0.2 Sodium 145 Potassium 4.3 Chloride 110 H Carbon Dioxide 26 Anion Gap 13 BUN 32 H Creatinine 0.83 Estim Creat Clear Calc 75.9 Estimated GFR > 60 POC Glucose Random Glucose 159 H D Fasting Glucose Calcium 8.0 L Total Bilirubin 1.1 H AST 29 ALT 23 Alkaline Phosphata se 75 Total Protein 4.4 L Albumin 2.9 L Blood Type Antibody Screen Crossmatch Const: General: no acute distress Cardio: Rate: tachycardic GI: Other: Peg in place, site clean Palpation (GI): Soft to palpation, not firm and no guarding Progress Note: A&P Assessment and plan (1) Acute and chronic respiratory failure: Status: Acute Assessment and Plan: Status post PEG tube placement yesterday Bloody peg tube output Follow H&H PPI Correct INR Also, hold Lovenox Care as per ICU Otherwise okay to start using PEG tube Discussed with quality control analyst Fall Risk Details Current Medications: Current Medications Generic Name Dose Route Start Last Admin Trade Name Freq PRN Reason Stop Dose Admin Chlorhexidine Gluconate 15 ml 01/05/21 15:00 01/14/21 07:52 Chlorhexidine Gluc Oral Rinse 15 Ml Mouthwash BUCCAL 15 ml TID DEE Administration Fentanyl 50 mcg 01/05/21 10:55 01/13/21 21:25 Fentanyl Citrate/Pf 100 Mcg/2 Ml Vial IVPUSH 50 mcg Q2H PRN Administration Pain, Moderate (Pain Scale 4-6 Esmolol HCl 2,500 mg in 250 mls @ 0 mls/hr 01/12/21 18:00 01/14/21 05:37 Brevibloc/Nacl IVCONT 100 mcg/kg/min .Q0M DEE 66.13 mls/hr Administration Protocol Per Protocol Octreotide Acetate 500 mcg/ 501 mls @ 50.1 mls/hr 01/14/21 02:15 01/14/21 03:24 Sodium Chloride IVCONT 01/14/21 12:14 50 mcg/hr .Q10H DEE 50.1 mls/hr Administration 50 MCG/HR Tranexamic Acid 1,000 mg/ 260 mls @ 32.5 mls/hr 01/14/21 06:45 01/14/21 07:05 Sodium Chloride IV 01/14/21 14:44 32.5 mls/hr .Q8H ONE Administration Phytonadione 10 mg/ Sodium 51 mls @ 51 mls/hr 01/14/21 15:00 Chloride IV 01/14/21 21:59 Q6H DEE Metoprolol Tartrate 25 mg 01/13/21 18:00 01/14/21 07:54 Metoprolol Tartrate 25 Mg Tablet G-TUBE Not Given Q8H DEE Protocol Nystatin 1 appl 01/09/21 17:00 01/14/21 07:53 Nystatin Powder 15 Gm Bottle TOPICAL 1 appl TID DEE Administration Protocol Pantoprazole Sodium 40 mg 01/14/21 06:30 01/14/21 05:37 Pantoprazole Sodium 40 Mg/10 Ml Vial IVPUSH 40 mg BID@0630,1630 DEE Administration Sodium Chloride 3 ml 12/14/20 00:00 01/14/21 07:52 0.9 % Sodium Chloride Flush 3 Ml Syringe IVFLUSH 3 ml QSHIFT DEE Administration Time Spent With Patient Time: Total time spent is greater than 50% in coordination of care (as documented) at patient's floor/unit and/or counseling patient: Time with patient: 15 - 24 minutes Procedures Date of Service Date of Service: 01/14/21
[2021-01-14 09:18] LABS: OBS Int Ctl Valid YES; OBS1 POSITIVE (NEGATIVE)
--- NOTE | 2021-01-14 09:49 | HO.POSTANES ---
Post Anesthesia Evaluation Post Anesthesia Evaluation Vital Signs: Vital Signs Temp Pulse Resp BP Pulse Ox 01/14/21 09:00 98.1 F 139 H 28 H 88/46 L 96 01/14/21 08:00 98.1 F 110 H 31 H 107/59 L 96 01/14/21 07:00 98.9 F 113 H 29 H 109/53 L 96 01/14/21 06:37 99.7 F 128 H 28 H 91/49 L 01/14/21 06:00 99.9 F 125 H 28 H 87/47 L 97 01/14/21 05:39 99.9 F 118 H 28 H 94/48 L 01/14/21 05:32 99.7 F 132 H 28 H 91/49 L 01/14/21 05:14 99.9 F 122 H 28 H 92/51 L 01/14/21 05:00 100.0 F 112 H 28 H 99/53 L 96 01/14/21 04:50 100.1 F 114 H 28 H 93/58 L 01/14/21 04:04 100.0 F 120 H 30 H 113/47 L 01/14/21 04:00 100.0 F 119 H 30 H 113/47 L 97 01/14/21 03:46 100.2 F 124 H 28 H 105/45 L 01/14/21 03:00 100.4 F 114 H 28 H 107/56 L 98 01/14/21 02:00 120 H 26 H 97/50 L 97 01/14/21 01:37 114 H 133/55 L 01/14/21 01:26 128 H 132/54 L 01/14/21 01:00 116 H 26 H 132/54 L 97 01/14/21 00:00 98.6 F 100 26 H 127/58 L 97 01/13/21 23:00 108 H 26 H 01/13/21 22:00 110 H 23 H 122/63 97 Anesthesia: Monitored Mental Status: Awake Pain Control: Satisfactory Nausea/Vomiting: None Hydration: Adequate Anesthesia-Related Issues: No Anes. Related Issues
[2021-01-14 10:11] LABS: Hematocrit 27.6 % (37-47); Hemoglobin 8.5 g/dl (12.0-16.0)
[2021-01-14 10:21] LABS: INTERNATIONAL NORM RATIO 2.2 (0.9-1.1); Prothrombin Time 26.8 SEC (10.8-13.0)
--- NOTE | 2021-01-14 10:32 | MHC.CLN ---
F/U PT RECEIVED PEG 01/[address] GUEVARA DURING ROUNDS NOTED 900CC JÚNIOR RED BLOOD ASPIRATED FROM GT RECOMMEND JEVITY AT MAX GOAL RATE 55CC/HR WITH 120CC FREE WATER FLUSHES Q SHIFT TO PROVIDE 1399KCALS (24KCALS/KG BASED ON IBW), 58G PROTEIN (.98G/KG), 1462CC TOTAL WATER FROM FORMULA AND FLUSHES (25CC/KG) BASED ON IBW START TF AT 20CC/HR AND INCREASE BY 10CC Q 4 HOURS UNTIL MAX GOAL IS ACHIEVED MONITOR TOLERANCE, RESIDUALS AND LYTES FOLLOWING
[2021-01-14] MEDS: Midazolam HCl/PF 2 MG/2 ML VIAL IVPUSH (11:50)
--- NOTE | 2021-01-14 12:23 | MHC.SHP ---
Pre-Procedural Eval Section B Chief Complaint: Acute Hyponatremia, Chf Details of Present Illness: acute blood loss anemia, patient in ICU, had g tube placed yesterday now with hemorrhagic shock from blood loss thru G tube Relevant Family History (Specify if Yes): No Relevant Social History: None Present Medications: see Short Stay Collaborative assessment Medical History: Significant History (CAd, DVT, throat cancer) History of Previous Operations: Relevant previous surgery/procedure and date(s) (a-fib cardioversion) Allergies: Allergies Allergy/AdvReac Type Severity Reaction Status Date / Time amiodarone Allergy Severe Difficulty Verified 01/03/21 21:43 Breathing SEASONAL ALLERGIES Allergy Unknown SNEEZING Uncoded 04/23/20 15:17 RUNNY NOSE Review of Systems Review of Systems Comment: unable to obtain Exam Surgical H&P Exam: Normal: Abdomen and Significant Findings: HEENT (tracheostomy tube noted), Significant Findings: Heart (tachycardia), Significant Findings: Extremities (cold), Significant Findings: Skin (pallor) and Significant Findings: Neurological (sedated) Plan Diagnosis/Plan: Unchanged I have reviewed the history and physical and performed a pertinent physical examination on my patient. No changes have occurred unless specified. emergent EGD at request of Dr Lopez due to acute blood loss anemia
[2021-01-14 12:28] LABS: VBG Base Excess -8.2 mmol/L; VBG HCO3 20 mmol/L (22-26); VBG pCO2 59 mmHg; VBG pH 7.14 (7.32-7.43); VBG pO2 34 mmHg
[2021-01-14] MEDS: Ketamine HCl/NS 50 MG/5 ML SYRINGE IVPUSH (12:28)
[2021-01-14] MEDS: Rocuronium Bromide 50 MG/5 ML VIAL IVPUSH (12:28)
--- NOTE | 2021-01-14 12:28 | P.BOP_ITS ---
Brief Operative Note Date of Service: 01/14/21 Pre-op diagnosis: acute blood loss anemia Post-op diagnosis: same Surgeon: Samuel Whiting MD Anesthesia: GETA Was an Coin Wrapping Machine Operator used for this Procedure?: No Estimated blood loss (mL): 40 Condition: critical Disposition: ICU
--- NOTE | 2021-01-14 12:28 | W.PM.OPN ---
Operative Note Operative Note Date of Service: 01/14/21 Narrative: Procedure Description: EGD FLEXIBLE TRANSORAL UPPER GASTROINTESTINAL ENDOSCOPY UPPER ENDOSCOPY Consent: Indications for the procedure and potential complications of bleeding, perforation, reaction to medications and missed diagnosis were discussed with the patient and informed consent was obtained. Instrument: Olympus GIF H 190 J mid size upper endoscope then switched to double channel scope due to clots and for better suction Monitoring: Vital signs and clinical assessment, continuous EKG monitoring, Pulse oximetry, Carbon Dioxide monitoring and blood pressure monitoring were done throughout the procedure. Procedure: The patient was placed in the left lateral decubitis position and pre-procedure medications were administered and a bite block was placed. The endoscope was inserted into the mouth and advanced under direct vision to the third part of duodenum. A careful inspection was made as the upper endoscope was withdrawn including a retroflexed examination of the proximal stomach; Findings and interventions are described below. Findings: Larynx:normal Esophagus: GE junction at 38 cm, diaphragm hiatus at 38 cm, no varices or esophagitis. Stomach: Large pool of blood noted, this was thoroughly irrigated and cleaned, the PEG site was inspected by rotating the internal bumper and no visible vessel or ulcer seen. retroflexion with large clot in fundus with small amount of oozing, clot could not be suctioned or dislodged so hemospray was liberally applied and the scope withdrawn as her ventilation status was compromised. Duodenum: Normal bulb and descending duodenum, blood noted Intervention: hemospray Impression/Findings: Gastric bleeding, possible lesion in upper gastric body under clot, s/p hemospray PLAN: cont with PPI IV BID and can add carafate thru G tube rediscuss risks and benefits of anticoagulation with family can consider repeat EGD depending on clinical status
[2021-01-14 12:42] LABS: Hematocrit 26.3 % (37-47); Hemoglobin 8.1 g/dl (12.0-16.0); Mean Corpuscular HGB Conc 30.8 g/dl (31.0-35.0); Mean Corpuscular Hemoglobin 30.7 pg (27.0-33.0); Mean Corpuscular Volume 99.6 fL (80-98); Mean Platelet Volume 10.9 fL (9.4-12.3); Platelet Count 153 X10*3/uL (160-400); Red Blood Count 2.64 X10*6/uL (4.20-5.50); Red Cell Distribution Width 16.9 % (11.0-16.0); White Blood Count 12.5 X10*3/uL (4.8-10.8)
[2021-01-14 12:53] LABS: INTERNATIONAL NORM RATIO 1.7 (0.9-1.1); Prothrombin Time 20.3 SEC (10.8-13.0)
[2021-01-14 13:03] LABS: Blood Urea Nitrogen 30 mg/dL (9-16); Estimated Glomerular Filt Rate 51; Glucose Random 178 mg/dL (60-115); Magnesium 1.6 mg/dL (1.6-2.6); Phosphorus 4.8 mg/dL (2.7-4.5)
[2021-01-14 13:04] LABS: ABG HCO3 20 mmol/L (22-26); ABG pCO2 46 mmHg (32-45); ABG pCO2 TC 41 mmHg (32-45); ABG pH 7.24 (7.35-7.45); ABG pH TC 7.27 (7.35-7.45); ABG pO2 326 mmHg (83-108); ABG pO2 TC 314 (83-108)
--- NOTE | 2021-01-14 13:13 | MHC.CM.PN ---
Patient remains in ICU on vent via trach. Had PEG placed on 01/13. Referral already made to [facility]. Continue to monitor for d/c needs.
[2021-01-14 13:18] LABS: Anion Gap 16 (12-20); Calcium 7.8 mg/dL (8.4-10.2); Carbon Dioxide 22 mmol/L (22-29); Chloride 110 mmol/L (96-108); Potassium 4.4 mmol/L (3.3-5.1); Sodium 144 mmol/L (135-145)
[2021-01-14 14:18] LABS: Venous Blood Gas Refer to POC result
[2021-01-14 14:20] LABS: ABG Refer to POC result
--- NOTE | 2021-01-14 14:26 | P.EN_ITS ---
Event Note Date of Service: 01/14/21 Event Note: I was called by the ICU this morning because of large amounts of f resh blood from the PEG tube. Patient's blood pressure he was also noted to be significantly lower than usual INR this morning was 2.1 without any Coumadin We will arrange for the clinical editor to do an urgent EGD Had discussed this with Lorraine earlier - explained the situation at that time and discuss further the possibility of patient requiring further intervention including surgery if bleeding is uncontrolled; she had stated that it is okay to proceed with endoscopy but she stated that she did not want any surgery beyond that Endoscopy was done - large amount of clots in the stomach was seen, no active bleeding, no duodenal bleeding, peg tube was in place I was present during the endoscopy done by Dr. Whiting Postoperatively, I had multiple discussions with Lorraine again about the above. I did explain to her the there is always the likelihood of re- bleeding even if the coagulopathy is corrected She stated that she had discussed with the family that DNR should be enforced She did not want any further invasive interventions This was discussed with the family as well when they came in Dr. Lopez had also discussed this with the family as well Patient remains critically ill on pressors
[2021-01-14 14:51] LABS: Hematocrit 33.3 % (37-47); Hemoglobin 10.5 g/dl (12.0-16.0)
[2021-01-14] MEDS: Phytonadione (Vit K1) 10 MG in 0.9 % Sodium Chloride 50 ML 51 MG IV ×2 (15:02→21:18)
--- NOTE | 2021-01-14 15:04 | P.PNCC_ITS ---
Subjective Subjective Date of Service: 01/14/21 Interval History: Mrs. Ch was transferred to ICU on December 27 after a cardiac arrest on [facility]. The patient is a 75 yo woman with PMHx of morbid obesity, ANITA noncompliant w CPAP, hypertension, diastolic heart failure, h/o OK, h/o PAFib on Eliquis, flecainide, and metoprolol, status post recent cardioversion, hyperlipidemia, anxiety, and h/o chronic back pain status post surgery. The patient also has a h/o head and neck carcinoma in 2007, treated at that time with chemo/RTx and has been remission since. Echo on 11/19 showed normal LV systolic function, w EF 60-65%. No obvious valvular pathology. RV cavity size was normal with mildly decreased right ventricular systolic function. The IVC was dilated and collapsed less than 50% with inspiration. Mild pulmonary hypertension was present. She had a recent admission for hyponatremia and heart failure. The question of SIADH came up, and therefore the question of malignancy was raised bec of her previous cancer. A CT of her head and neck revealed no clear lesions. CT chest showed multiple small nodules, and a small right pleural eff. Dr. Calvillo recommended an ENT exam to look for any recurrent lesion. HISTORY OF PRESENT ILLNESS: The patient was readmitted on December 13 with hyponatremia, CHF, and fluid overload. She was in sinus rhythm. She was managed medically and Flecainide, Lopressor, and Eliquis were continued. At some point, she went back into Afib. With the Lasix, her bicarb started rising. She developed trouble eating and swallowing. She was seen by Dr. Whiting. Her base excess delfino into the 20?s, and she developed a marked hypercarbia, altho without CO2 narcosis. On 12/23, she was started on Provigil, and nighttime CPAP was changed to BiPAP. Her hypercarbia improved. On 12/24, she underwent EGD and was found to have gastric polyps and an esoph ageal stricture. She underwent biopsies and balloon dilatation at [facility], with a small tear noted. She?d been getting low dose [place] oxygen the entire hospital stay (was not on oxygen at home). On December 27 the patient had a bradycardic arrest. CPR was started immediately. She was defib?ed three times, got three rounds of epi, and was intubated. CPR duration was 10 minutes. She was awake and responsive after the code. The patient was transferred to ICU, where she was awake and trying to talk. She was therefore not cooled. Echo was notable for normal LV size and fxn, with no RWMA. RV was enlarged with good function, w large RA. The IVC was large with no insp collapse. CT pulmonary angiogram showed no pulmonary emboli. RV was mildly enlarged. She had large bilateral pleural effusions with compressive atelectasis, and rib fx?s 2? vigorous CPR. Anticoagulation was held. She was extubated to BiPAP on December 29. On December 30, a right pleural drainage catheter was placed and drained 2500 cc of bloody fluid (probably hemothorax 2? CPR). She had to be reintubated after that bec of hypercarbia. Her right lung reexpanded nicely after the fluid drainage. The patient was extubated again on 01/04, but required reintubation the next day 2? aspiration. The right pleural drainage tube was removed on January 08 and the patient underwent open tracheostomy by Dr. Castro that same day. A fenestrated tracheostomy tube was placed. On 01/09, a venous duplex scan of her left UE (done bec of generalized swelling of the arm) showed thrombosis of one of her left brachial veins, so she was put on full dose Lovenox. On January 12, she went onto trach collar with no problem. She was breathing easy and stayed on the trach collar all day and that night, with Sat 99% on 28% TC. Yesterday morning she went to the OR for PEG by Dr. Castro. No problems. She was put back on the ventilator on return from the OR. Most of the day and night she stayed on the ventilator. Early this morning, bloody residual was noted from her G-tube. A total of 920 cc of red bloody material was suction. Blood pressure dropped to 95 systolic and heart rate went up to the 130s. Hemoglobin dropped to 7.7, INR was elevated. She was given 2 units of blood, protamine, and tranexamic acid, and put on bid PPI. Later in the morning, her blood pressure dropped again and rivera blood was aspirated from her G-tube. We immediately started fluids. Her blood pressure dropped as low as into the 60s. She was started on Levophed, and multiple blood products were rapidly syringed in by hand. She underwent EGD by Dr. Rainey. Anesthesia consisted of ketamine total 50 mg and Versed 2 mg, along with 50 mg Zemuron. Findings: Large pool of blood noted in stomach. The PEG site was inspected, no visible vessel or ulcer seen. Large clot in fundus with small amount of oozing, clot could not be suctioned or dislodged. The duodenal bulb and descending duodenum were normal with blood noted. Hemospray was liberally applied and the procedure ended bec she was becoming unstable w compromised ventilation. After the scope, we improved her tidal volume, with ABG showing 7.24/46/326/7 on 80% oxygen. We had to give her rocuronium during the procedure and positive- pressure ventilation led to a significant air leak, despite blowing up the tracheostomy cuff. So a set tidal volume of 500 cc was required to achieve 300 cc return volume. All told, she?s received 5 units RBCs and 4 units FFP today. Last CBC at noon showed Hb 8.1, plat count 153K, INR 1.7, after which she was given 1 more unit RBCs. Currently, she?s not sedated. She?s awake and tracking but not interactive to command. HR 123, AFib. BP 134/59 on Levophed 0.1ug and esmolol 100ug. On PSV AC 28/500/40%/+8, return vols are 300cc, RR is 28, PIP 22, Sat 99%. Been afebrile for 48 hrs. No visible JVD. Trach site is dry. Chest has coarse BS, w normal exp phase. Irreg rate and rhythm, tachy, with normal-sounding S1 and S2, with no murmur or gallops. The abdomen is benign. She has 2+ pitting edema, with light anasarca. Neuro exam is nonfocal, albeit noninteractive. Urine output minimal all day. LABORATORY DATA: As above and below. Notably, Hb 10.5 after last unit of RBCs. Last CVBG showed 7.26/47/-5 (BE improved from -8). BUN/creat bumped to 30/1.0. Lactate 3.5. MICROBIOLOGY: Blood cultures from January 10 are negative. Sputum from January 12 shows 3+ polys w mixed resp kylah. IMPRESSION: 1. Underlying obesity and ANITA. 2. Underlying cor pulmonale and right heart failure on that basis. 3. Status post cardiac arrest on December 27. Etiology unclear. Possibly respiratory in origin. Seems to have made a complete recovery despite 10 minutes CPR time. 4. CAD and Diastolic congestive heart failure. Continuing to diurese. 5. Underlying atrial fibrillation. Rate is borderline controlled with esmolol. Anticoagulation was discontinued with the current GI bleed. 6. Hypoxemic and hypercarbic respiratory failure secondary to ANITA and pulmonary aspiration. Status post tracheostomy. 7. Hemo thorax. Presumably secondary to broken ribs during CPR. Status post drainage. 8. Hemorrhagic shock 2? gastric bleed. Either from the PEG site or from a gastric ulcer. Unable to say for sure. Blood vol adeq replaced but still coagulopathic. Recheck labs at 6pm. 9. Acute kidney injury. Undoubtedly 2? ATN. 10. Diabetes mellitus. On sliding scale insulin. 11. GI: Esophageal stricture, status post balloon dilatation by Dr. Rainey. PEG went well yesterday. Hopefully she?ll have no more bleeding and we can start tube feeds tomorrow. 12. Hypernatremia. May need to add free water. 13. History of head and neck cancer. Ongoing consideration as described above. 14. Nutrition. Plan to start tube feeds tomorrow. 15. ID: The patient is not septic Had an extended discussion with entire family in conference and updated them all on today?s events. At their decision today, we changed her code status to DNR/No CPR. We will not do dailysis. Critical care time (including over two hours in the room this morning pushing blood, managing hemorrhagic shock, assisting w EGD): 3+ hrs. Critical Care Time (minutes): 180 Physical Exam Vital Signs: Vital Signs: Last Vital Signs Temp 99.1 F 01/14/21 14:31 Pulse 159 H 01/14/21 14:48 Resp 28 H 01/14/21 14:31 BP 135/91 H 01/14/21 14:48 Pulse Ox 100 01/14/21 14:00 Oxygen Flow Rate 2 12/26/20 15:00 Body Mass Index 39.2 Objective Data Labs CBC & Chem 7: 01/14/21 14:27 01/14/21 12:24 Labs: Laboratory Results - last 24 hr 12/30/20 01/13/21 01/13/21 09:15 17:25 18:24 WBC RBC Hgb Hct MCV MCH MCHC RDW Plt Count MPV Immature Gran % (Auto) Neut % (Auto) Lymph % (Auto) [place] % (Auto) Eos % (Auto) Baso % (Auto) Lymph # (Auto) [place] # (Auto) Eos # (Auto) Baso # (Auto) Abs Immat Gran (auto) Absolute Neuts (auto) Absolute Nucleated RBC Nucleated RBC % (auto) Smear Tech's Comments PT INR APTT O2 Saturation ABG pH at Pt Temp ABG pH (Temp Correct) ABG pCO2 at Pt Temp ABG pCO2 (Temp Corrct ABG pO2 at Pt Temp ABG pO2 (Temp Correct ABG HCO3 ABG Base Excess (Actual) VBG pH VBG pCO2 VBG pO2 VBG HCO3 VBG O2 Saturation VBG Base Excess Sodium Potassium 4.1 D Chloride Carbon Dioxide Anion Gap BUN Creatinine Estim Creat Clear Calc Estimated GFR POC Glucose 113 Random Glucose Fasting Glucose Calcium Phosphorus Magnesium Total Bilirubin AST ALT Alkaline Phosphatase Total Protein Albumin Stool Occult Blood Blood Type O Positive Antibody Screen NEGATIVE Crossmatch See Detail 01/13/21 01/14/21 01/14/21 23:54 02:05 02:05 WBC 13.2 H RBC 2.46 L Hgb 7.7 L Hct 25.5 L MCV 103.7 H MCH 31.3 MCHC 30.2 L RDW 18.3 H Plt Count 310 MPV 10.5 Immature Gran % (Auto) 1.1 H Neut % (Auto) 91.4 H Lymph % (Auto) 3.7 L [place] % (Auto) 3.6 Eos % (Auto) 0.0 Baso % (Auto) 0.2 Lymph # (Auto) 0.5 L [place] # (Auto) 0.5 Eos # (Auto) 0.0 Baso # (Auto) 0.0 Abs Immat Gran (auto) 0.15 H Absolute Neuts (auto) 12.0 H Absolute Nucleated RBC 0.040 H Nucleated RBC % (auto) 0.3 H Smear Tech's Comments VERIFIED PT 21.6 H D INR 1.8 H APTT 30.4 O2 Saturation ABG pH at Pt Temp ABG pH (Temp Correct) ABG pCO2 at Pt Temp ABG pCO2 (Temp Corrct ABG pO2 at Pt Temp ABG pO2 (Temp Correct ABG HCO3 ABG Base Excess (Actual) VBG pH VBG pCO2 VBG pO2 VBG HCO3 VBG O2 Saturation VBG Base Excess Sodium Potassium Chloride Carbon Dioxide Anion Gap BUN Creatinine Estim Creat Clear Calc Estimated GFR POC Glucose 132 H Random Glucose Fasting Glucose Calcium Phosphorus Magnesium Total Bilirubin AST ALT Alkaline Phosphatase Total Protein Albumin Stool Occult Blood Blood Type Antibody Screen Crossmatch 01/14/21 01/14/21 01/14/21 02:05 02:22 05:45 WBC 15.0 H RBC 2.97 L D Hgb 9.3 L D Hct 29.6 L MCV 99.7 H MCH 31.3 MCHC 31.4 RDW 17.3 H Plt Count 239 MPV 10.5 Immature Gran % (Auto) 2.2 H Neut % (Auto) 90.5 H Lymph % (Auto) 4.3 L [place] % (Auto) 2.9 Eos % (Auto) 0.0 Baso % (Auto) 0.1 Lymph # (Auto) 0.7 L [place] # (Auto) 0.4 Eos # (Auto) 0.0 Baso # (Auto) 0.0 Abs Immat Gran (auto) 0.33 H Absolute Neuts (auto) 13.5 H Absolute Nucleated RBC 0.060 H Nucleated RBC % (auto) 0.4 H Smear Tech's Comments PT INR APTT O2 Saturation ABG pH at Pt Temp ABG pH (Temp Correct) ABG pCO2 at Pt Temp ABG pCO2 (Temp Corrct ABG pO2 at Pt Temp ABG pO2 (Temp Correct ABG HCO3 ABG Base Excess (Actual) VBG pH VBG pCO2 VBG pO2 VBG HCO3 VBG O2 Saturation VBG Base Excess Sodium 146 H Potassium 3.9 Chloride 110 H Carbon Dioxide 29 Anion Gap 11 L BUN 27 H D Creatinine 0.70 Estim Creat Clear Calc 90.0 Estimated GFR > 60 POC Glucose Random Glucose Fasting Glucose 147 H Calcium 8.2 L Phosphorus Magnesium Total Bilirubin AST ALT Alkaline Phosphatase Total Protein Albumin Stool Occult Blood Blood Type O Positive Antibody Screen NEGATIVE Crossmatch See Detail 01/14/21 01/14/21 01/14/21 05:45 06:47 08:39 WBC RBC Hgb Hct MCV MCH MCHC RDW Plt Count MPV Immature Gran % (Auto) Neut % (Auto) Lymph % (Auto) [place] % (Auto) Eos % (Auto) Baso % (Auto) Lymph # (Auto) [place] # (Auto) Eos # (Auto) Baso # (Auto) Abs Immat Gran (auto) Absolute Neuts (auto) Absolute Nucleated RBC Nucleated RBC % (auto) Smear Tech's Comments PT INR APTT O2 Saturation ABG pH at Pt Temp ABG pH (Temp Correct) ABG pCO2 at Pt Temp ABG pCO2 (Temp Corrct ABG pO2 at Pt Temp ABG pO2 (Temp Correct ABG HCO3 ABG Base Excess (Actual) VBG pH 7.34 VBG pCO2 46 VBG pO2 41 VBG HCO3 25 VBG O2 Saturation 66.0 VBG Base Excess -0.2 Sodium 145 Potassium 4.3 Chloride 110 H Carbon Dioxide 26 Anion Gap 13 BUN 32 H Creatinine 0.83 Estim Creat Clear Calc 75.9 Estimated GFR > 60 POC Glucose Random Glucose 159 H D Fasting Glucose Calcium 8.0 L Phosphorus Magnesium Total Bilirubin 1.1 H AST 29 ALT 23 Alkaline Phosphatase 75 Total Protein 4.4 L Albumin 2.9 L Stool Occult Blood POSITIVE Blood Type Antibody Screen Crossmatch 01/14/21 01/14/21 01/14/21 10:04 10:04 12:20 WBC RBC Hgb 8.5 L Hct 27.6 L MCV MCH MCHC RDW Plt Count MPV Immature Gran % (Auto) Neut % (Auto) Lymph % (Auto) [place] % (Auto) Eos % (Auto) Baso % (Auto) Lymph # (Auto) [place] # (Auto) Eos # (Auto) Baso # (Auto) Abs Immat Gran (auto) Absolute Neuts (auto) Absolute Nucleated RBC Nucleated RBC % (auto) Smear Tech's Comments PT 26.8 H D INR 2.2 H APTT O2 Saturation ABG pH at Pt Temp ABG pH (Temp Correct) ABG pCO2 at Pt Temp ABG pCO2 (Temp Corrct ABG pO2 at Pt Temp ABG pO2 (Temp Correct ABG HCO3 ABG Base Excess (Actual) VBG pH 7.14 L* VBG pCO2 59 VBG pO2 34 VBG HCO3 20 L VBG O2 Saturation 45.0 VBG Base Excess -8.2 Sodium Potassium Chloride Carbon Dioxide Anion Gap BUN Creatinine Estim Creat Clear Calc Estimated GFR POC Glucose Random Glucose Fasting Glucose Calcium Phosphorus Magnesium Total Bilirubin AST ALT Alkaline Phosphatase Total Protein Albumin Stool Occult Blood Blood Type Antibody Screen Crossmatch 01/14/21 01/14/21 01/14/21 12:23 12:23 12:23 WBC 12.5 H RBC 2.64 L Hgb 8.1 L Hct 26.3 L MCV 99.6 H MCH 30.7 MCHC 30.8 L RDW 16.9 H Plt Count 153 L D MPV 10.9 Immature Gran % (Auto) Neut % (Auto) Lymph % (Auto) [place] % (Auto) Eos % (Auto) Baso % (Auto) Lymph # (Auto) [place] # (Auto) Eos # (Auto) Baso # (Auto) Abs Immat Gran (auto) Absolute Neuts (auto) Absolute Nucleated RBC 0.120 H Nucleated RBC % (auto) 1.0 H Smear Tech's Comments PT 20.3 H D INR 1.7 H APTT O2 Saturation ABG pH at Pt Temp ABG pH (Temp Correct) ABG pCO2 at Pt Temp ABG pCO2 (Temp Corrct ABG pO2 at Pt Temp ABG pO2 (Temp Correct ABG HCO3 ABG Base Excess (Actual) VBG pH VBG pCO2 VBG pO2 VBG HCO3 VBG O2 Saturation VBG Base Excess Sodium Potassium Chloride Carbon Dioxide Anion Gap BUN Creatinine Estim Creat Clear Calc Estimated GFR POC Glucose Random Glucose Fasting Glucose Calcium Phosphorus Cancelled Magnesium Cancelled Total Bilirubin AST ALT Alkaline Phosphatase Total Protein Albumin Stool Occult Blood Blood Type Antibody Screen Crossmatch 01/14/21 01/14/21 01/14/21 12:24 12:56 14:27 WBC RBC Hgb 10.5 L D Hct 33.3 L D MCV MCH MCHC RDW Plt Count MPV Immature Gran % (Auto) Neut % (Auto) Lymph % (Auto) [place] % (Auto) Eos % (Auto) Baso % (Auto) Lymph # (Auto) [place] # (Auto) Eos # (Auto) Baso # (Auto) Abs Immat Gran (auto) Absolute Neuts (auto) Absolute Nucleated RBC Nucleated RBC % (auto) Smear Tech's Comments PT INR APTT O2 Saturation 100.0 ABG pH at Pt Temp 7.24 L ABG pH (Temp Correct) 7.27 L ABG pCO2 at Pt Temp 46 H ABG pCO2 (Temp Corrct 41 ABG pO2 at Pt Temp 326 H ABG pO2 (Temp Correct 314 H ABG HCO3 20 L ABG Base Excess (Actual) -7.0 VBG pH VBG pCO2 VBG pO2 VBG HCO3 VBG O2 Saturation VBG Base Excess Sodium 144 Potassium 4.4 Chloride 110 H Carbon Dioxide 22 Anion Gap 16 BUN 30 H Creatinine 1.05 Estim Creat Clear Calc 60.0 Estimated GFR 51 POC Glucose Random Glucose 178 H Fasting Glucose Calcium 7.8 L Phosphorus 4.8 H Magnesium 1.6 Total Bilirubin AST ALT Alkaline Phosphatase Total Protein Albumin Stool Occult Blood Blood Type Antibody Screen Crossmatch Microbiology Microbiology Results: Microbiology 01/12/21 10:41 Sputum - Suctioned Gram Stain - Final 01/12/21 10:41 Sputum - Suctioned Sputum Culture - Final 01/10/21 06:11 Blood - Venous Blood Culture - Preliminary No growth after 48 hours. 01/10/21 06:11 Blood - Venous Blood Culture - Preliminary No growth after 48 hours. 12/30/20 06:29 Blood - Venous Blood Culture - Final No growth after 5 days. 12/30/20 06:20 Blood - Venous Blood Culture - Final No growth after 5 days. 12/31/20 15:59 Sputum - Suctioned Gram Stain - Final 12/31/20 15:59 Sputum - Suctioned Sputum Culture - Final 12/30/20 06:37 Kidney - Jones Catheter Urine Culture - Final No growth. 12/27/20 17:56 Sputum - Suctioned Gram Stain - Final 12/27/20 17:56 Sputum - Suctioned Sputum Culture - Final 12/27/20 17:53 Urine clean catch - Clean Catch Midstream Urine Culture - Final No growth. Critical Care Time Critical Care Time (minutes): 180
[2021-01-14 15:17] LABS: Lactic Acid 3.5 mmol/L (0.5-2.0)
[2021-01-14 15:25] LABS: Cancel Lactic Acid Canceled
[2021-01-14 15:42] LABS: VBG Base Excess -5.4 mmol/L; VBG HCO3 21 mmol/L (22-26); VBG pCO2 47 mmHg; VBG pH 7.26 (7.32-7.43); VBG pO2 44 mmHg
[2021-01-14] MEDS: Calcium Gluconate/NaCl,Iso-Osm 1 GM/50 ML PLAST..BAG IV (15:43)
[2021-01-14] MEDS: Magnesium Sulfate/H2O 2 GM/50 ML PIGGYBACK IV (15:46)
--- NOTE | 2021-01-14 16:30 | PC.NURSE ---
Around 11:30 hand irrigated dark red blood from PEG tube. MD notified. PEG tube set up to suction and drained a total of 400ml blood. Stool occult positive from today as well. H&H trending down, MD aware. Patient's blood pressure trended down as low as 71/50, MD made aware. Total of 2 L of LR bolus given. Patient started of Levophed drip. Blood transfusion initiated. Patient received a total of 5 units RBC and 4 FFPs. Patient tolerated well. Blood pressure improved to MAP >65. Repeat labs drawn. H&H trending up post transfusion to 10.5 / 33.3 at 14:30. Family/HCP updated by MD. , , OR staff, and at bedside for EGD. See MD notes. Patient remained on vent via trach, changed to AC settings by RT per MD. administered versed, ketamine, and Rocuronium IVP. Around 1600 had irrigated PEG tube. No further drainage of blood from PEG tube noted. Flushed 60 ml of water with ease. Notified MD. PEG tube meds and feeds remain on hold per MD. Low urine output noted throughout shift, MD aware. Urine output remains <15 ml/hr and at times 0 ml/hr, MD aware.
[2021-01-14 16:58] LABS: Venous Blood Gas Refer to POC result
[2021-01-14 18:38] LABS: Hematocrit 28.7 % (37-47); Hemoglobin 9.1 g/dl (12.0-16.0); Mean Corpuscular HGB Conc 31.7 g/dl (31.0-35.0); Mean Corpuscular Hemoglobin 30.3 pg (27.0-33.0); Mean Corpuscular Volume 95.7 fL (80-98); Platelet Count 159 X10*3/uL (160-400); Red Cell Distribution Width 16.7 % (11.0-16.0); White Blood Count 15.7 X10*3/uL (4.8-10.8)
[2021-01-14 18:44] LABS: INTERNATIONAL NORM RATIO 1.6 (0.9-1.1); Prothrombin Time 18.7 SEC (10.8-13.0)
[2021-01-14 18:45] LABS: NRBC Pct Auto 1.4 /100WBC (0.0-0.2)
[2021-01-14] MEDS: Esmolol HCl/NaCl Iso 2,500 MG/250 ML IV.SOLN 99.2 MG IVCONT (21:33)
[2021-01-14 22:09] LABS: VBG Base Excess -3.2 mmol/L; VBG HCO3 21 mmol/L (22-26); VBG pCO2 38 mmHg; VBG pH 7.36 (7.32-7.43); VBG pO2 34 mmHg
[2021-01-14 22:15] LABS: Hematocrit 24.7 % (37-47); Hemoglobin 7.9 g/dl (12.0-16.0)
[2021-01-14 22:43] LABS: Venous Blood Gas Refer to POC result
[2021-01-15] VITALS (46 sets, daily range): BP systolic 89–160; BP diastolic 47–90; PULSE 81–132; RESP 14–28; TEMP 36.1–38; O2SAT 92–100
[2021-01-15] MEDS: Esmolol HCl/NaCl Iso 2,500 MG/250 ML IV.SOLN 99.2 MG IVCONT ×9 (00:09→20:09)
[2021-01-15] MEDS: 0.9 % Sodium Chloride Flush 3 ML SYRINGE IVFLUSH ×3 (00:10→15:15)
[2021-01-15] MEDS: Metoprolol Tartrate 25 MG TABLET G-TUBE (02:06)
--- NOTE | 2021-01-15 04:52 | PC.NURSE ---
ASSUMED CARE OF PT AT 1900. PT DROWSY BUT AROUSABLE AT THAT TIME. BECAME MORE AWAKE NIGHT WENT ON AND NOW IS ALERT AND RESPONSIVE TO NAME OR LIGHT TOUCH. FOLLOWS COMMANDS. NO RESP DIFFICULTIES ON AC VENT SETTINGS VIA #8 SHILEY. SMALL AMOUNT OF BLEEDING NOTED AROUND TRACH. DR GUEVARA USE GAUZE A PACKING AT TRACH STOMA. BLEEDING STOPPED. TRACH CARE GIVEN. BP STABLE ON LEVOPHED. HGB/HCT 7.9/24.7 AT 2200. PT RECEIVED 2 UNITS OF LRBC'S AND 2 UNITS OF FFP OVERNIGHT WITHOUT COMPLICATION. MONITOR SHOWS AFIB, HR 110'S-140. ESMOLOL DRIP CURRENTLY INFUSING AT 150 MCG/KG/HR. RECEIVED METOPROLOL 25 MG ORDERED VIA PEG. SMALL AMOUNT OF BLOOD ASPIRATED FROM PEG AT BEGINNING OF SHIFT WITH SOME SMALL CLOTS. NO BLEEDING AT THIS TIME. NO STOOL.
[2021-01-15 05:33] LABS: VBG HCO3 19 mmol/L (22-26); VBG pCO2 31 mmHg; VBG pO2 42 mmHg
[2021-01-15] MEDS: Pantoprazole Sodium 40 MG/10 ML VIAL IVPUSH ×2 (05:42→15:18)
[2021-01-15 05:56] LABS: Hematocrit 29.8 % (37-47); Hemoglobin 9.7 g/dl (12.0-16.0); Mean Corpuscular HGB Conc 32.6 g/dl (31.0-35.0); Mean Corpuscular Hemoglobin 29.7 pg (27.0-33.0); Mean Corpuscular Volume 91.1 fL (80-98); Mean Platelet Volume 11.3 fL (9.4-12.3); Platelet Count 118 X10*3/uL (160-400); Red Blood Count 3.27 X10*6/uL (4.20-5.50); Red Cell Distribution Width 15.9 % (11.0-16.0)
[2021-01-15 05:58] LABS: NRBC Pct Auto 1.6 /100WBC (0.0-0.2)
[2021-01-15 06:19] LABS: Alanine Aminotransferase 162 U/L (0-31); Albumin Level 3.2 g/dL (3.5-5.0); Alkaline Phosphatase 74 U/L (39-117); Anion Gap 14 (12-20); Aspartate Amino Transferase 184 U/L (5-31); Bilirubin Total 1.2 mg/dL (0.0-1.0); Blood Urea Nitrogen 49 mg/dL (9-16); Calcium 7.6 mg/dL (8.4-10.2); Carbon Dioxide 24 mmol/L (22-29); Chloride 111 mmol/L (96-108); Creatinine Clr Calc Pharmacy 35.2; Estimated Glomerular Filt Rate 28; Glucose Random 184 mg/dL (60-115); Magnesium 1.9 mg/dL (1.6-2.6); Phosphorus 3.7 mg/dL (2.7-4.5); Potassium 4.1 mmol/L (3.3-5.1); Sodium 145 mmol/L (135-145); Total Protein 4.8 g/dL (6.5-8.0)
[2021-01-15 06:25] LABS: B Type Natriuretic Peptide 1157 pg/mL (<100)
[2021-01-15] MEDS: Chlorhexidine Gluc Oral Rinse 15 ML MOUTHWASH BUCCAL ×3 (07:40→20:09)
--- NOTE | 2021-01-15 08:00 | CA_ITS ---
Transthoracic Echocardiogram Patient (Last, First, Middle): Lucia Ch C Gender: Female Date of : 1945 Age: 75 Procedure Date: 01/15/2021 Procedure Type: Transthoracic Echocardiogram Location: ICU Height: 167.64 cm Weight: 110.22 kg BSA: 2.17 m2 Heart Rate: bpm BP: 144 / 71 mmHg Consumer Electronic Retail Specialist: MAY Allison MD: Demar Lopez MD Fishing Vessel Deckhand: Adebayo Lechuga MD Symptoms: f/u hemorrhagic shock Study Quality: Technically Difficult ECG Rhythm: Atrial Fibrillation Conclusions: - 1. Normal RV and LV systolic function on this study 2. No gross pericardial effusion Findings Left Ventricle Normal left ventricular size, thickness, and systolic function. The visually estimated ejection fraction is between 60-65%. There is no evidence of regional wall motion abnormalities. Diastolic function is indeterminate on the basis of available data. Right Ventricle Normal right ventricular cavity size and systolic function. Pericardium/Pleural There is no evidence of pericardial effusion. Prior Study Comparison No significant change compared to prior study dated: 12/28/2020. Measurements 2D Linear Measurements IVSd: 1.03 0.6-0.9/0.6-1.0 cm LVIDd: 3.14 3.9-5.3/4.2-5.9 cm LVIDd Index: 1.45 2.4-3.2/2.2-3.1 cm/m2 LVIDs: 1.99 2.0-3.6 cm LVPWd: 1.15 0.7-1.1 cm LA Diam: 2.80 2.7-3.8/3.0-4.0 cm LAIDs Index: 1.29 1.5-2.3 cm/m2 LV Mass: 124.39 67-162/88-224 g LV Mass Index: 57.32 43-95/49-115 g/m2 2D Systolic Function EF 4C: 17.50 >55% EF 2C: 29.20 >55% EF BiP: 59.50 >55% Mitral Valve MV Pk E: 1.25 MV PK A: 0.41 MV Decel Time: 154.00 E/A: 3.00 E'Lateral: 7.07 E'Medial: 6.96 E/E' Med: 18.00 E/E' Lat: 17.70 PHT: 45.00 MVA PHT: 4.89 Decel Elk: 8.10 Diastolic Function MV Pk E: 1.25 MV Pk A: 0.41 E/A: 3.00 E'Medial: 6.96 E/E' Med: 18.00 E' Laterial: 7.07 E/E' Lat: 17.70 Tricuspid Valve TR Pk Christiano: 2.54 TR Pk Grad: 26.00 RA Press: 3.00 RVSP: 29.00 Updated in Other Vendor System with Status of Final Adebayo Lechuga MD electronically signed on 01/15/2021 12:21:53 PM with status of Final
[2021-01-15 08:01] LABS: Venous Blood Gas Refer to POC result
[2021-01-15] MEDS: Nystatin Powder 15 GM BOTTLE 1 APPL TOPICAL ×3 (08:38→20:09)
--- NOTE | 2021-01-15 10:58 | MHC.CLN ---
F/U PT RECEIVED PEG 01/13 TF CURRENTLY ON HOLD RECOMMEND JEVITY AT MAX GOAL RATE 55CC/HR WITH 120CC FREE WATER FLUSHES Q SHIFT TO PROVIDE 1399KCALS (24KCALS/KG BASED ON IBW), 58G PROTEIN (.98G/KG), 1462CC TOTAL WATER FROM FORMULA AND FLUSHES (25CC/KG) BASED ON IBW START TF AT 20CC/HR AND INCREASE BY 10CC Q 4 HOURS UNTIL MAX GOAL IS ACHIEVED MONITOR TOLERANCE, RESIDUALS AND LYTES FOLLOWING
--- NOTE | 2021-01-15 11:05 | PM.CCPN ---
Subjective Subjective Date of Service: 01/15/21 Interval History: Mrs. Ch was transferred to ICU on December 27 after a cardiac arrest on [facility] [place] [facility]. The patient is a 75 yo woman with PMHx of morbid obesity, ANITA noncompliant w CPAP, hypertension, diastolic heart failure, h/o MO, h/o PAFib on Eliquis, flecainide, and metoprolol, status post recent cardioversion, hyperlipidemia, anxiety, and h/o chronic back pain status post surgery. The patient also has a h/o head and neck carcinoma in 2007, treated at that time with chemo/RTx and has been remission since. Echo on 11/19 showed normal LV systolic function, w EF 60-65%. No obvious valvular pathology. RV cavity size was normal with mildly decreased right ventricular systolic function. The IVC was dilated and collapsed less than 50% with inspiration. Mild pulmonary hypertension was present. She had a recent admission for hyponatremia and heart failure. The question of SIADH came up, and therefore the question of malignancy was raised bec of her previous cancer. A CT of her head and neck revealed no clear lesions. CT chest showed multiple small nodules, and a small right pleural eff. Dr. Calvillo recommended an ENT exam to look for any recurrent lesion. HISTORY OF PRESENT ILLNESS: The patient was readmitted on December 13 with hyponatremia, CHF, and fluid overload. She was in sinus rhythm. She was managed medically and Flecainide, Lopressor, and Eliquis were continued. At some point, she went back into Afib. With the Lasix, her bicarb started rising. She developed trouble eating and swallowing. She was seen by Dr. Whiting. Her base excess delfino into the 20?s, and she developed a marked hypercarbia, altho without CO2 narcosis. On 12/23, she was started on Provigil, and nighttime CPAP was changed to BiPAP. Her hypercarbia improved. On 12/24, she underwent EGD and was found to have gastric polyps and an esophageal stricture. She underwent biopsies and balloon dilatation at [facility], with a small tear noted. She?d been getting low dose [place] oxygen the entire hospital stay (was not on oxygen at home). On December 27 the patient had a bradycardic arrest. CPR was started immediately. She was defib?ed three times, got three rounds of epi, and was intubated. CPR duration was 10 minutes. She was awake and responsive after the code. The cause of the arrest was undetermined. The patient was transferred to ICU, where she was awake and trying to talk. She was therefore not cooled. Echo at that time was notable for normal LV size and fxn, with no RWMA. RV was enlarged with good function, w large RA. The IVC was large with no insp collapse. CT pulmonary angiogram showed no pulmonary emboli. RV was mildly enlarged. She had large bilateral pleural effusions with compressive atelectasis, and rib fx?s 2? vigorous CPR. Anticoagulation was held. She was extubated to BiPAP on December 29. On December 30, a right pleural drainage catheter was placed and drained 2500 cc of bloody fluid (probably hemothorax 2? CPR). She had to be reintubated after that bec of hypercarbia. Her right lung reexpanded nicely after the fluid drainage. The patient was extubated again on 01/04, but required reintubation the next day 2? aspiration. The right pleural drainage tube was removed on January 08 and the patient underwent open tracheostomy by Dr. Castro that same day. A fenestrated tracheostomy tube was placed. On 01/09, a venous duplex scan of her left UE (done bec of generalized swelling of the arm) showed thrombosis of one of her left brachial veins, so she was put on full dose Lovenox. On January 12, she went onto trach collar with no problem. She was breathing easy and stayed on the trach collar all day and that night, with Sat 99% on 28% TC. The next day, she went to the OR for PEG by Dr. Castro. No problems. In the outside sales advertising executive hours of January 14, blood started issuing from her Gtube and she went into hemorrhagic shock. Hb dropped to 7.7, INR was elevated. She was given 2 units of blood, protamine, and tranexamic acid, and put on bid PPI. Later in the morning, her blood pressure dropped again and rivera blood was aspirated from her G-tube. She again went into shock. She was given multiple products. She underwent EGD by Dr. Rainey. Findings: Large pool of blood noted in stomach. The PEG site was inspected, no visible vessel or ulcer seen. Large clot in fundus with small amount of oozing, clot could not be suctioned or dislodged. The duodenal bulb and descending duodenum were normal with blood noted. Hemospray was liberally applied and the procedure ended bec she was becoming unstable w compromised ventilation. After the scope, she still had a leak around her trach tube. We were able to achieve return volumes in the 300 cc range by using set tidal vols in the 500cc range. Last transfusion was this morning about midnight, she was given 1 unit RBCs and 2 units FFP. Currently, she?s unsedated. She?s awake and tracking but not 100% and she?s not always interactive to command. HR 95, AFib. BP 145/83 off Levophed, on esmolol 100ug. On AC 28/500/40%/+8, return vols are 300cc, RR is 28, PIP 20, ETCO2 27, Sat 97%. CVBG this morning showed 7.40/31/-4. Tmax 100.4?. No visible JVD. Trach site has very slight serosanguinous drainage. Chest has coarse BS, w normal exp phase. Irreg rate and rhythm, tachy, with normal-sounding S1 and S2, with no murmur or gallops. The abdomen is nondistended with decreased BS. Mild-moderate diffuse tenderness, but no guarding or rebound. She has 2-3+ pitting edema, with light anasarca. Neuro exam is nonfocal, albeit noninteractive. Urine output averaging 60cc/hr. LABORATORY DATA: As below. Notably, Hb this morning is 9.7. INR is 1.3. BUN/creat bumped to 49/1.7. Phos 3.7. Lactate 1.2. BNP 1157. Tbili 1.2, mild transaminitis, Albumin 3.2. Urine Na < 20. MICROBIOLOGY: Blood cultures from January 10 are negative. Sputum from January 12 shows 3+ polys w mixed resp kylah. IMPRESSION: 1. Underlying obesity and ANITA. 2. Underlying cor pulmonale and right heart failure on that basis. 3. Status post cardiac arrest on December 27. Etiology unclear. Possibly respiratory in origin. Seems to have made a complete recovery despite 10 minutes CPR time. 4. CAD and Diastolic congestive heart failure. Holding diuresis. 5. Underlying atrial fibrillation. Rate control is borderline with esmolol. Anticoagulation was discontinued with the current GI bleed. 6. Hypoxemic and hypercarbic respiratory failure secondary to ANITA and pulmonary aspiration. Status post tracheostomy. 7. Hemo thorax. Presumably secondary to broken ribs during CPR. Status post drainage. 8. Hemorrhagic shock 2? gastric bleed. Either from the PEG site or from a gastric ulcer. Unable to say for sure. Blood vol adeq replaced, and coagulopathy mostly resolved. Follow w lab rechecks. 9. Acute kidney injury. Likely ATN, but renal ratio is high and urine sodium is <20. I?ll give her albumin, given how edematous she is. 10. Diabetes mellitus. On sliding scale insulin. 11. GI: Esophageal stricture, status post balloon dilatation by Dr. Rainey. PEG went well yesterday. Hopefully she?ll have no more bleeding and we can start tube feeds tomorrow. 12. Hypernatremia. May need to add free water. 13. History of head and neck cancer. Ongoing consideration as described above. 14. Nutrition. Plan to start tube feeds tomorrow. 15. ID: The patient is not septic Had extended discussion with family about invasive management, prognosis, and what comfort care would look like if we got to that point. It?s not clear that she?s going to survive this hospitalization, primarily bec her ability to repair and recover is limited. Continuing with current code status, DNR/No CPR. We will not do dialysis. Critical care time (including mult visits to the bedside): 75+ min. Critical Care Time (minutes): 75 Physical Exam Vital Signs: Vital Signs: Last Vital Signs Temp 98.9 F 01/15/21 10:00 Pulse 101 H 01/15/21 10:00 Resp 28 H 01/15/21 10:00 BP 126/64 01/15/21 10:00 Pulse Ox 100 01/15/21 10:00 Oxygen Flow Rate 2 12/26/20 15:00 Body Mass Index 39.2 Objective Data Labs CBC & Chem 7: 01/15/21 16:41 01/15/21 05:28 Labs: Laboratory Results - last 24 hr 12/30/20 01/14/21 01/14/21 09:15 02:22 12:20 WBC RBC Hgb Hct MCV MCH MCHC RDW Plt Count MPV Absolute Nucleated RBC Nucleated RBC % (auto) PT INR O2 Saturation ABG pH at Pt Temp ABG pH (Temp Correct) ABG pCO2 at Pt Temp ABG pCO2 (Temp Corrct ABG pO2 at Pt Temp ABG pO2 (Temp Correct ABG HCO3 ABG Base Excess (Actual) VBG pH 7.14 L* VBG pCO2 59 VBG pO2 34 VBG HCO3 20 L VBG O2 Saturation 45.0 VBG Base Excess -8.2 Sodium Potassium Chloride Carbon Dioxide Anion Gap BUN Creatinine Estim Creat Clear Calc Estimated GFR Random Glucose Lactic Acid Calcium Phosphorus Magnesium Total Bilirubin AST ALT Alkaline Phosphatase B-Natriuretic Peptide Total Protein Albumin Blood Type O Positive O Positive Antibody Screen NEGATIVE NEGATIVE Crossmatch See Detail See Detail 01/14/21 01/14/21 01/14/21 12:23 12:23 12:23 WBC 12.5 H RBC 2.64 L Hgb 8.1 L Hct 26.3 L MCV 99.6 H MCH 30.7 MCHC 30.8 L RDW 16.9 H Plt Count 153 L D MPV 10.9 Absolute Nucleated RBC 0.120 H Nucleated RBC % (auto) 1.0 H PT 20.3 H D INR 1.7 H O2 Saturation ABG pH at Pt Temp ABG pH (Temp Correct) ABG pCO2 at Pt Temp ABG pCO2 (Temp Corrct ABG pO2 at Pt Temp ABG pO2 (Temp Correct ABG HCO3 ABG Base Excess (Actual) VBG pH VBG pCO2 VBG pO2 VBG HCO3 VBG O2 Saturation VBG Base Excess Sodium Potassium Chloride Carbon Dioxide Anion Gap BUN Creatinine Estim Creat Clear Calc Estimated GFR Random Glucose Lactic Acid Calcium Phosphorus Cancelled Magnesium Cancelled Total Bilirubin AST ALT Alkaline Phosphatase B-Natriuretic Peptide Total Protein Albumin Blood Type Antibody Screen Crossmatch 01/14/21 01/14/21 01/14/21 12:24 12:56 14:27 WBC RBC Hgb 10.5 L D Hct 33.3 L D MCV MCH MCHC RDW Plt Count MPV Absolute Nucleated RBC Nucleated RBC % (auto) PT INR O2 Saturation 100.0 ABG pH at Pt Temp 7.24 L ABG pH (Temp Correct) 7.27 L ABG pCO2 at Pt Temp 46 H ABG pCO2 (Temp Corrct 41 ABG pO2 at Pt Temp 326 H ABG pO2 (Temp Correct 314 H ABG HCO3 20 L ABG Base Excess (Actual) -7.0 VBG pH VBG pCO2 VBG pO2 VBG HCO3 VBG O2 Saturation VBG Base Excess Sodium 144 Potassium 4.4 Chloride 110 H Carbon Dioxide 22 Anion Gap 16 BUN 30 H Creatinine 1.05 Estim Creat Clear Calc 60.0 Estimated GFR 51 Random Glucose 178 H Lactic Acid Calcium 7.8 L Phosphorus 4.8 H Magnesium 1.6 Total Bilirubin AST ALT Alkaline Phosphatase B-Natriuretic Peptide Total Protein Albumin Blood Type Antibody Screen Crossmatch 01/14/21 01/14/21 01/14/21 14:27 15:34 18:15 WBC 15.7 H RBC 3.00 L Hgb 9.1 L Hct 28.7 L MCV 95.7 MCH 30.3 MCHC 31.7 RDW 16.7 H Plt Count 159 L MPV 11.0 Absolute Nucleated RBC 0.220 H Nucleated RBC % (auto) 1.4 H PT INR O2 Saturation ABG pH at Pt Temp ABG pH (Temp Correct) ABG pCO2 at Pt Temp ABG pCO2 (Temp Corrct ABG pO2 at Pt Temp ABG pO2 (Temp Correct ABG HCO3 ABG Base Excess (Actual) VBG pH 7.26 L VBG pCO2 47 VBG pO2 44 VBG HCO3 21 L VBG O2 Saturation 72.0 VBG Base Excess -5.4 Sodium Potassium Chloride Carbon Dioxide Anion Gap BUN Creatinine Estim Creat Clear Calc Estimated GFR Random Glucose Lactic Acid 3.5 H* Calcium Phosphorus Magnesium Total Bilirubin AST ALT Alkaline Phosphatase B-Natriuretic Peptide Total Protein Albumin Blood Type Antibody Screen Crossmatch 01/14/21 01/14/21 01/14/21 18:15 18:15 22:02 WBC RBC Hgb Hct MCV MCH MCHC RDW Plt Count MPV Absolute Nucleated RBC Nucleated RBC % (auto) PT 18.7 H INR 1.6 H O2 Saturation ABG pH at Pt Temp ABG pH (Temp Correct) ABG pCO2 at Pt Temp ABG pCO2 (Temp Corrct ABG pO2 at Pt Temp ABG pO2 (Temp Correct ABG HCO3 ABG Base Excess (Actual) VBG pH 7.36 VBG pCO2 38 VBG pO2 34 VBG HCO3 21 L VBG O2 Saturation 57.0 VBG Base Excess -3.2 Sodium Potassium Chloride Carbon Dioxide Anion Gap BUN Creatinine Estim Creat Clear Calc Estimated GFR Random Glucose Lactic Acid 2.0 Calcium Phosphorus Magnesium Total Bilirubin AST ALT Alkaline Phosphatase B-Natriuretic Peptide Total Protein Albumin Blood Type Antibody Screen Crossmatch 01/14/21 01/15/21 01/15/21 22:05 05:26 05:28 WBC 20.0 H RBC 3.27 L Hgb 7.9 L 9.7 L D Hct 24.7 L 29.8 L D MCV 91.1 MCH 29.7 MCHC 32.6 RDW 15.9 Plt Count 118 L D MPV 11.3 Absolute Nucleated RBC 0.330 H Nucleated RBC % (auto) 1.6 H PT INR O2 Saturation ABG pH at Pt Temp ABG pH (Temp Correct) ABG pCO2 at Pt Temp ABG pCO2 (Temp Corrct ABG pO2 at Pt Temp ABG pO2 (Temp Correct ABG HCO3 ABG Base Excess (Actual) VBG pH 7.40 VBG pCO2 31 VBG pO2 42 VBG HCO3 19 L VBG O2 Saturation 77.0 VBG Base Excess -4.0 Sodium Potassium Chloride Carbon Dioxide Anion Gap BUN Creatinine Estim Creat Clear Calc Estimated GFR Random Glucose Lactic Acid Calcium Phosphorus Magnesium Total Bilirubin AST ALT Alkaline Phosphatase B-Natriuretic Peptide Total Protein Albumin Blood Type Antibody Screen Crossmatch 01/15/21 01/15/21 05:28 05:28 WBC RBC Hgb Hct MCV MCH MCHC RDW Plt Count MPV Absolute Nucleated RBC Nucleated RBC % (auto) PT INR O2 Saturation ABG pH at Pt Temp ABG pH (Temp Correct) ABG pCO2 at Pt Temp ABG pCO2 (Temp Corrct ABG pO2 at Pt Temp ABG pO2 (Temp Correct ABG HCO3 ABG Base Excess (Actual) VBG pH VBG pCO2 VBG pO2 VBG HCO3 VBG O2 Saturation VBG Base Excess Sodium 145 Potassium 4.1 Chloride 111 H Carbon Dioxide 24 Anion Gap 14 BUN 49 H D Creatinine 1.79 H Estim Creat Clear Calc 35.2 Estimated GFR 28 Random Glucose 184 H Lactic Acid Calcium 7.6 L Phosphorus 3.7 Magnesium 1.9 Total Bilirubin 1.2 H AST 184 H ALT 162 H Alkaline Phosphatase 74 B-Natriuretic Peptide 1157 H Total Protein 4.8 L Albumin 3.2 L Blood Type Antibody Screen Crossmatch Microbiology Microbiology Results: Microbiology 01/10/21 06:11 Blood - Venous Blood Culture - Final No growth after 5 days. 01/10/21 06:11 Blood - Venous Blood Culture - Final No growth after 5 days. 01/12/21 10:41 Sputum - Suctioned Gram Stain - Final 01/12/21 10:41 Sputum - Suctioned Sputum Culture - Final 12/30/20 06:29 Blood - Venous Blood Culture - Final No growth after 5 days. 12/30/20 06:20 Blood - Venous Blood Culture - Final No growth after 5 days. 12/31/20 15:59 Sputum - Suctioned Gram Stain - Final 12/31/20 15:59 Sputum - Suctioned Sputum Culture - Final 12/30/20 06:37 Kidney - Jones Catheter Urine Culture - Final No growth. 12/27/20 17:56 Sputum - Suctioned Gram Stain - Final 12/27/20 17:56 Sputum - Suctioned Sputum Culture - Final 12/27/20 17:53 Urine clean catch - Clean Catch Midstream Urine Culture - Final No growth. Critical Care Time Critical Care Time (minutes): 90
[2021-01-15 11:28] LABS: Fibrinogen 325 MG/DL (259-690); INTERNATIONAL NORM RATIO 1.3 (0.9-1.1); Prothrombin Time 15.4 SEC (10.8-13.0)
[2021-01-15 11:39] LABS: Lactic Acid 1.2 mmol/L (0.5-2.0)
--- NOTE | 2021-01-15 12:15 | PM.PNGS ---
Subjective Subjective Date of Service: 01/15/21 Interval history: No further bleeding from the PEG tube No events overnight Seems to be hemodynamically more stable than yesterday Physical Exam Vital Signs: Vital Signs: Last Vital Signs Temp 99.0 F 01/15/21 11:51 Pulse 85 01/15/21 11:51 Resp 19 01/15/21 11:51 BP 127/58 L 01/15/21 11:51 Pulse Ox 93 01/15/21 11:51 Oxygen Flow Rate 2 12/26/20 15:00 Body Mass Index 39.2 Laboratory Results - last 24 hr 01/14/21 01/14/21 01/14/21 02:22 12:20 12:23 WBC 12.5 H RBC 2.64 L Hgb 8.1 L Hct 26.3 L MCV 99.6 H MCH 30.7 MCHC 30.8 L RDW 16.9 H Plt Count 153 L D MPV 10.9 Absolute Nucleated RBC 0.120 H Nucleated RBC % (a uto) 1.0 H Smear Path Review SEE NOTE PT INR Fibrinogen O2 Saturation ABG pH at Pt Temp ABG pH (Temp Corre ct) ABG pCO2 at Pt Tem p ABG pCO2 (Temp Cor rct ABG pO2 at Pt Temp ABG pO2 (Temp Abhijit ect ABG HCO3 ABG Base Excess (A ctual) VBG pH 7.14 L* VBG pCO2 59 VBG pO2 34 VBG HCO3 20 L VBG O2 Saturation 45.0 VBG Base Excess -8.2 Sodium Potassium Chloride Carbon Dioxide Anion Gap BUN Creatinine Estim Creat Clear Calc Estimated GFR Random Glucose Lactic Acid Calcium Phosphorus Magnesium Total Bilirubin AST ALT Alkaline Phosphata se B-Natriuretic Pept alice Total Protein Albumin Blood Type O Positive Antibody Screen NEGATIVE Crossmatch See Detail 01/14/21 01/14/21 01/14/21 12:23 12:23 12:24 WBC RBC Hgb Hct MCV MCH MCHC RDW Plt Count MPV Absolute Nucleated RBC Nucleated RBC % (a uto) Smear Path Review PT 20.3 H D INR 1.7 H Fibrinogen O2 Saturation ABG pH at Pt Temp ABG pH (Temp Corre ct) ABG pCO2 at Pt Tem p ABG pCO2 (Temp Cor rct ABG pO2 at Pt Temp ABG pO2 (Temp Abhijit ect ABG HCO3 ABG Base Excess (A ctual) VBG pH VBG pCO2 VBG pO2 VBG HCO3 VBG O2 Saturation VBG Base Excess Sodium 144 Potassium 4.4 Chloride 110 H Carbon Dioxide 22 Anion Gap 16 BUN 30 H Creatinine 1.05 Estim Creat Clear Calc 60.0 Estimated GFR 51 Random Glucose 178 H Lactic Acid Calcium 7.8 L Phosphorus Cancelled 4.8 H Magnesium Cancelled 1.6 Total Bilirubin AST ALT Alkaline Phosphata se B-Natriuretic Pept alice Total Protein Albumin Blood Type Antibody Screen Crossmatch 01/14/21 01/14/21 01/14/21 12:56 14:27 14:27 WBC RBC Hgb 10.5 L D Hct 33.3 L D MCV MCH MCHC RDW Plt Count MPV Absolute Nucleated RBC Nucleated RBC % (a uto) Smear Path Review PT INR Fibrinogen O2 Saturation 100.0 ABG pH at Pt Temp 7.24 L ABG pH (Temp Corre ct) 7.27 L ABG pCO2 at Pt Tem p 46 H ABG pCO2 (Temp Cor rct 41 ABG pO2 at Pt Temp 326 H ABG pO2 (Temp Abhijit ect 314 H ABG HCO3 20 L ABG Base Excess (A ctual) -7.0 VBG pH VBG pCO2 VBG pO2 VBG HCO3 VBG O2 Saturation VBG Base Excess Sodium Potassium Chloride Carbon Dioxide Anion Gap BUN Creatinine Estim Creat Clear Calc Estimated GFR Random Glucose Lactic Acid 3.5 H* Calcium Phosphorus Magnesium Total Bilirubin AST ALT Alkaline Phosphata se B-Natriuretic Pept alice Total Protein Albumin Blood Type Antibody Screen Crossmatch 01/14/21 01/14/21 01/14/21 15:34 18:15 18:15 WBC 15.7 H RBC 3.00 L Hgb 9.1 L Hct 28.7 L MCV 95.7 MCH 30.3 MCHC 31.7 RDW 16.7 H Plt Count 159 L MPV 11.0 Absolute Nucleated RBC 0.220 H Nucleated RBC % (a uto) 1.4 H Smear Path Review PT INR Fibrinogen O2 Saturation ABG pH at Pt Temp ABG pH (Temp Corre ct) ABG pCO2 at Pt Tem p ABG pCO2 (Temp Cor rct ABG pO2 at Pt Temp ABG pO2 (Temp Abhijit ect ABG HCO3 ABG Base Excess (A ctual) VBG pH 7.26 L VBG pCO2 47 VBG pO2 44 VBG HCO3 21 L VBG O2 Saturation 72.0 VBG Base Excess -5.4 Sodium Potassium Chloride Carbon Dioxide Anion Gap BUN Creatinine Estim Creat Clear Calc Estimated GFR Random Glucose Lactic Acid 2.0 Calcium Phosphorus Magnesium Total Bilirubin AST ALT Alkaline Phosphata se B-Natriuretic Pept alice Total Protein Albumin Blood Type Antibody Screen Crossmatch 01/14/21 01/14/21 01/14/21 18:15 22:02 22:05 WBC RBC Hgb 7.9 L Hct 24.7 L MCV MCH MCHC RDW Plt Count MPV Absolute Nucleated RBC Nucleated RBC % (a uto) Smear Path Review PT 18.7 H INR 1.6 H Fibrinogen O2 Saturation ABG pH at Pt Temp ABG pH (Temp Corre ct) ABG pCO2 at Pt Tem p ABG pCO2 (Temp Cor rct ABG pO2 at Pt Temp ABG pO2 (Temp Abhijit ect ABG HCO3 ABG Base Excess (A ctual) VBG pH 7.36 VBG pCO2 38 VBG pO2 34 VBG HCO3 21 L VBG O2 Saturation 57.0 VBG Base Excess -3.2 Sodium Potassium Chloride Carbon Dioxide Anion Gap BUN Creatinine Estim Creat Clear Calc Estimated GFR Random Glucose Lactic Acid Calcium Phosphorus Magnesium Total Bilirubin AST ALT Alkaline Phosphata se B-Natriuretic Pept alice Total Protein Albumin Blood Type Antibody Screen Crossmatch 01/15/21 01/15/21 01/15/21 05:26 05:28 05:28 WBC 20.0 H RBC 3.27 L Hgb 9.7 L D Hct 29.8 L D MCV 91.1 MCH 29.7 MCHC 32.6 RDW 15.9 Plt Count 118 L D MPV 11.3 Absolute Nucleated RBC 0.330 H Nucleated RBC % (a uto) 1.6 H Smear Path Review PT INR Fibrinogen O2 Saturation ABG pH at Pt Temp ABG pH (Temp Corre ct) ABG pCO2 at Pt Tem p ABG pCO2 (Temp Cor rct ABG pO2 at Pt Temp ABG pO2 (Temp Abhijit ect ABG HCO3 ABG Base Excess (A ctual) VBG pH 7.40 VBG pCO2 31 VBG pO2 42 VBG HCO3 19 L VBG O2 Saturation 77.0 VBG Base Excess -4.0 Sodium 145 Potassium 4.1 Chloride 111 H Carbon Dioxide 24 Anion Gap 14 BUN 49 H D Creatinine 1.79 H Estim Creat Clear Calc 35.2 Estimated GFR 28 Random Glucose 184 H Lactic Acid Calcium 7.6 L Phosphorus 3.7 Magnesium 1.9 Total Bilirubin 1.2 H AST 184 H ALT 162 H Alkaline Phosphata se 74 B-Natriuretic Pept alice Total Protein 4.8 L Albumin 3.2 L Blood Type Antibody Screen Crossmatch 01/15/21 01/15/21 01/15/21 05:28 11:04 11:04 WBC RBC Hgb Hct MCV MCH MCHC RDW Plt Count MPV Absolute Nucleated RBC Nucleated RBC % (a uto) Smear Path Review PT 15.4 H INR 1.3 H Fibrinogen 325 O2 Saturation ABG pH at Pt Temp ABG pH (Temp Corre ct) ABG pCO2 at Pt Tem p ABG pCO2 (Temp Cor rct ABG pO2 at Pt Temp ABG pO2 (Temp Abhijit ect ABG HCO3 ABG Base Excess (A ctual) VBG pH VBG pCO2 VBG pO2 VBG HCO3 VBG O2 Saturation VBG Base Excess Sodium Potassium Chloride Carbon Dioxide Anion Gap BUN Creatinine Estim Creat Clear Calc Estimated GFR Random Glucose Lactic Acid 1.2 Calcium Phosphorus Magnesium Total Bilirubin AST ALT Alkaline Phosphata se B-Natriuretic Pept alice 1157 H Total Protein Albumin Blood Type Antibody Screen Crossmatch Const: Other: On vent, eyes open spontaneously General: no acute distress HENMT: Other: Tracheostomy dry Resp: Other: On vent GI: Other: Abdomen soft, peg in place, some tenderness around the PEG site Progress Note: A&P Assessment and plan (1) Acute and chronic respiratory failure: Status: Acute Assessment and Plan: Status post tracheostomy January 08 Status post PEG, January 13 Had GI bleed yesterday, was coagulopathic; endoscopy done showed clots, no bleeding, PEG tube place Given FFPs No further bleeding overnight No the coagulants PPI If she remains stable, okay to start tube feeds tomorrow Fall Risk Details Current Medications: Current Medications Generic Name Dose Route Start Last Admin Trade Name Freq PRN Reason Stop Dose Admin Chlorhexidine Gluconate 15 ml 01/05/21 15:00 01/15/21 07:40 Chlorhexidine Gluc Oral Rinse 15 Ml Mouthwash BUCCAL 15 ml TID DEE Administration Fentanyl 50 mcg 01/05/21 10:55 01/13/21 21:25 Fentanyl Citrate/Pf 100 Mcg/2 Ml Vial IVPUSH 50 mcg Q2H PRN Administration Pain, Moderate (Pain Scale 4-6 Esmolol HCl 2,500 mg in 250 mls @ 0 mls/hr 01/12/21 18:00 01/15/21 09:58 Brevibloc/Nacl IVCONT 150 mcg/kg/min .Q0M DEE 99.2 mls/hr Administration Protocol Per Protocol Norepinephrine Bitartrate 8 mg in 250 mls @ 0 mls/hr 01/14/21 11:00 01/15/21 09:58 Levophed IVCONT 0 mcg/kg/min .Q0M DEE 0 mls/hr Titration Protocol Per Protocol Metoprolol Tartrate 25 mg 01/13/21 18:00 01/15/21 11:12 Metoprolol Tartrate 25 Mg Tablet G-TUBE Not Given Q8H DEE Protocol Nystatin 1 appl 01/09/21 17:00 01/15/21 08:38 Nystatin Powder 15 Gm Bottle TOPICAL 1 appl TID DEE Administration Protocol Pantoprazole Sodium 40 mg 01/14/21 06:30 01/15/21 05:42 Pantoprazole Sodium 40 Mg/10 Ml Vial IVPUSH 40 mg BID@0630,1630 DEE Administration Sodium Chloride 3 ml 12/14/20 00:00 01/15/21 07:19 0.9 % Sodium Chloride Flush 3 Ml Syringe IVFLUSH 3 ml QSHIFT DEE Administration Time Spent With Patient Time: Total time spent is greater than 50% in coordination of care (as documented) at patient's floor/unit and/or counseling patient: Time with patient: 25 - 35 minutes Procedures Date of Service Date of Service: 01/15/21
[2021-01-15 12:28] LABS: Potassium Urine Random 89.3 mmol/L; Sodium Urine Random < 20.0 mmol/L
[2021-01-15] MEDS: dexmedeTOMIDidine HCL/NS 400 MCG/100 ML INFUS..BTL 11.02 MCG IVCONT ×2 (12:46→22:12)
--- NOTE | 2021-01-15 16:06 | PM.EVENT ---
Event Note Date of Service: 01/15/21 Event Note: has remained stable relatively no further bleeding episodes looks more awake abd soft urine output adequate continue ICU care no anticoagulants PPI family at bedside
[2021-01-15 16:49] LABS: Hematocrit 26.3 % (37-47); Hemoglobin 8.6 g/dl (12.0-16.0)
[2021-01-15 16:59] LABS: VBG Base Excess -0.5 mmol/L; VBG HCO3 24 mmol/L (22-26); VBG pCO2 40 mmHg; VBG pH 7.38 (7.32-7.43); VBG pO2 54 mmHg
[2021-01-15 17:14] LABS: Venous Blood Gas Refer to POC result
[2021-01-15] MEDS: Albumin Human 25 % 50 ML 100 ML IV (18:39)
[2021-01-15] MEDS: Esmolol HCl/NaCl Iso 2,500 MG/250 ML IV.SOLN 82.67 MG IVCONT (22:39)
[2021-01-15 23:24] LABS: Blood Urea Nitrogen 53 mg/dL (9-16); Creatinine Clr Calc Pharmacy 49.6; Estimated Glomerular Filt Rate 41
--- NOTE | 2021-01-15 23:41 | PC.NURSE ---
Pt on pressure control vent settings. No resp difficulties. #[address] Slight bleeding noted on trach dressing. O2 sat high 90's. Pt on precedex drip presently at 0.4 mcg. Pt opens eyes, follows commands at times but not always. She is very weak. Does not move extremities. Left arm edematous and weeping. Both hands edematous. Generalized edema noted. U/o is good. Peg tube to low intermittent suction but very little returns noted. Peg irrigates well. Monitor shows afib, heart rate 80's-90's. Esmolol drip was at 150 mcg but decreased to 125 mcg. Labs drawn at 2230 reviewed by Dylan Carver. Hgb/Hct 06/05. Bp stable. Remains off levophed.
[2021-01-16] VITALS (39 sets, daily range): BP systolic 129–195; BP diastolic 60–108; PULSE 74–115; RESP 11–26; TEMP 36.5–37.3; O2SAT 93–100
[2021-01-16] MEDS: 0.9 % Sodium Chloride Flush 3 ML SYRINGE IVFLUSH ×3 (01:11→15:45)
[2021-01-16] MEDS: Albumin Human 25 % 50 ML 100 ML IV ×2 (01:16→05:36)
[2021-01-16] MEDS: Esmolol HCl/NaCl Iso 2,500 MG/250 ML IV.SOLN 66.13 MG IVCONT ×5 (01:30→22:27)
[2021-01-16] MEDS: dexmedeTOMIDidine HCL/NS 400 MCG/100 ML INFUS..BTL 22.05 MCG IVCONT ×2 (02:41→06:05)
[2021-01-16 05:25] LABS: Hematocrit 31.2 % (37-47); Hemoglobin 10.1 g/dl (12.0-16.0); Mean Corpuscular HGB Conc 32.4 g/dl (31.0-35.0); Mean Corpuscular Hemoglobin 29.7 pg (27.0-33.0); Mean Corpuscular Volume 91.8 fL (80-98); Mean Platelet Volume 11.1 fL (9.4-12.3); NRBC Pct Auto 0.8 /100WBC (0.0-0.2); Red Cell Distribution Width 16.7 % (11.0-16.0); White Blood Count 16.6 X10*3/uL (4.8-10.8)
[2021-01-16] MEDS: fentaNYL citrate/PF 100 MCG/2 ML VIAL 50 MCG IVPUSH (05:27)
[2021-01-16 05:28] LABS: VBG HCO3 23 mmol/L (22-26); VBG pCO2 39 mmHg; VBG pH 7.38 (7.32-7.43); VBG pO2 52 mmHg
[2021-01-16 05:31] LABS: Venous Blood Gas Refer to POC result
[2021-01-16 05:31] LABS: INTERNATIONAL NORM RATIO 1.2 (0.9-1.1); Prothrombin Time 14.8 SEC (10.8-13.0)
[2021-01-16 05:50] LABS: B Type Natriuretic Peptide 608 pg/mL (<100); Platelet Count 85 X10*3/uL (160-400)
[2021-01-16 05:53] LABS: Lactic Acid 0.9 mmol/L (0.5-2.0)
[2021-01-16 06:05] LABS: Alanine Aminotransferase 136 U/L (0-31); Albumin Level 3.2 g/dL (3.5-5.0); Alkaline Phosphatase 60 U/L (39-117); Anion Gap 14 (12-20); Aspartate Amino Transferase 97 U/L (5-31); Bilirubin Total 0.9 mg/dL (0.0-1.0); Blood Urea Nitrogen 54 mg/dL (9-16); Calcium 7.7 mg/dL (8.4-10.2); Carbon Dioxide 22 mmol/L (22-29); Chloride 114 mmol/L (96-108); Creatinine Clr Calc Pharmacy 58.3; Estimated Glomerular Filt Rate 50; Glucose Random 163 mg/dL (60-115); Magnesium 1.8 mg/dL (1.6-2.6); Phosphorus 2.3 mg/dL (2.7-4.5); Potassium 3.3 mmol/L (3.3-5.1); Sodium 147 mmol/L (135-145); Total Protein 4.7 g/dL (6.5-8.0)
[2021-01-16] MEDS: Pantoprazole Sodium 40 MG/10 ML VIAL IVPUSH (06:37)
[2021-01-16 08:13] LABS: Sodium Urine Random < 20.0 mmol/L
[2021-01-16] MEDS: Nystatin Powder 15 GM BOTTLE 1 APPL TOPICAL ×3 (08:52→20:49)
[2021-01-16] MEDS: Chlorhexidine Gluc Oral Rinse 15 ML MOUTHWASH BUCCAL ×3 (08:54→20:51)
[2021-01-16] MEDS: dexmedeTOMIDidine HCL/NS 400 MCG/100 ML INFUS..BTL 27.56 MCG IVCONT (09:35)
[2021-01-16] MEDS: Potassium Chloride/H20 40 MEQ/100 ML PIGGYBACK 50 MEQ IV ×3 (10:17→20:51)
[2021-01-16] MEDS: Fluconazole in NaCl,Iso-Osm 200 MG/100 ML PIGGYBACK 100 MG IV (11:13)
[2021-01-16] MEDS: Furosemide 20 MG/2 ML VIAL IVPUSH (11:13)
[2021-01-16] MEDS: Furosemide 200 MG in 0.9 % Sodium Chloride 80 ML IVCONT (11:19)
[2021-01-16] MEDS: Esmolol HCl/NaCl Iso 2,500 MG/250 ML IV.SOLN 49.6 MG IVCONT (13:35)
--- NOTE | 2021-01-16 14:38 | P.PNCC_ITS ---
Subjective Subjective Date of Service: 01/16/21 Interval History: Mrs. Ch was transferred to ICU on December 27 after a cardiac arrest on [facility] [place]. The patient is a 75 yo woman with PMHx of morbid obesity, ANITA noncompliant w CPAP, hypertension, diastolic heart failure, h/o CO, h/o PAFib on Eliquis, flecainide, and metoprolol, status post recent cardioversion, hyperlipidemia, anxiety, and h/o chronic back pain status post surgery. The patient also has a h/o head and neck carcinoma in 2007, treated at that time with chemo/RTx and has been remission since. Echo on 11/19 showed normal LV systolic function, w EF 60-65%. No obvious valvular pathology. RV cavity size was normal with mildly decreased right ventricular systolic function. The IVC was dilated and collapsed less than 50% with inspiration. Mild pulmonary hypertension was present. She had a recent admission for hyponatremia and heart failure. The question of SIADH came up, and therefore the question of malignancy was raised bec of her previous cancer. A CT of her head and neck revealed no clear lesions. CT chest showed multiple small nodules, and a small right pleural eff. Dr. Calvillo recommended an ENT exam to look for any recurrent lesion. HISTORY OF PRESENT ILLNESS: The patient was readmitted on December 13 with hyponatremia, CHF, and fluid overload. She was in sinus rhythm. She was managed medically and Flecainide, Lopressor, and Eliquis were continued. At some point, she went back into Afib. With the Lasix, her bicarb started rising. She developed trouble eating and swallowing. She was seen by Dr. Whiting. Her base excess delfino into the 20?s, and she developed a marked hypercarbia, altho without CO2 narcosis. On 12/23, she was started on Provigil, and nighttime CPAP was changed to BiPAP. Her hypercarbia improved. On 12/24, she underwent EGD and was found to have gastric polyps and an esoph ageal stricture. She underwent biopsies and balloon dilatation at [facility] [place], with a small tear noted. She?d been getting low dose [place] oxygen the entire hospital stay (was not on oxygen at home). On December 27 the patient had a bradycardic arrest. CPR was started immediately. She was defib?ed three times, got three rounds of epi, and was intubated. CPR duration was 10 minutes. She was awake and responsive after the code. The cause of the arrest was undetermined. The patient was transferred to ICU, where she was awake and trying to talk. She was therefore not cooled. Echo at that time was notable for normal LV size and fxn, with no RWMA. RV was enlarged with good function, w large RA. The IVC was large with no insp collapse. CT pulmonary angiogram showed no pulmonary emboli. RV was mildly enlarged. She had large bilateral pleural effusions with compressive atelectasis, and rib fx?s 2? vigorous CPR. Anticoagulation was held. She was extubated to BiPAP on December 29. On December 30, a right pleural drainage catheter was placed and drained 2500 cc of bloody fluid (probably hemothorax 2? CPR). She had to be reintubated after that bec of hypercarbia. Her right lung reexpanded nicely after the fluid drainage. The patient was extubated again on 01/04, but required reintubation the next day 2? aspiration. The right pleural drainage tube was removed on January 08 and the patient underwent open tracheostomy by Dr. Castro that same day. A fenestrated tracheostomy tube was placed. On 01/09, a venous duplex scan of her left UE (done bec of generalized swelling of the arm) showed thrombosis of one of her left brachial veins, so she was put on full dose Lovenox. On January 12, she went onto trach collar with no problem. She was breathing easy and stayed on the trach collar all day and that night, with Sat 99% on 28% TC. The next day, she went to the OR for PEG by Dr. Castro. No complications. In the simplex printer installer hours of January 14, blood started issuing from her Gtube and she went into hemorrhagic shock. Hb dropped to 7.7, INR was elevated. She was given mult blood products, and put on bid PPI. Later in the morning, her blood pressure dropped again and rivera blood was aspirated from her G-tube. She again went into shock. She was given multiple products. She underwent EGD by Dr. Rainey. Findings: Large pool of blood noted in stomach. The PEG site was ins pected, no visible vessel or ulcer seen. Large clot in fundus with small amount of oozing, clot could not be suctioned or dislodged. The duodenal bulb and descending duodenum were normal. Hemospray was liberally applied and the procedure ended. After the scope, she still had a leak around her trach tube. We were able to achieve return volumes in the 300 cc range by using set tidal volumes in the 500cc range. Last transfusion was yesterday afternooon. Currently, she?s unsedated. She?s fully awake and looks much better than yesterday. Thoroughly nontoxic. Somewhat inanimate, still not 100% interactive. HR 98, AFib. BP 160/85, on esmolol 75ug. On PSV 5/28%/+5, RR is 19, return vols are 420cc, Ve 7.8L, ETCO2 29, Sat 97%. CVBG this morning showed 7.38/39/-1. She?s afebrile. No visible JVD. Trach site minimal drainage. Chest has clear BS, w normal exp phase. Irreg rate and rhythm, tachy, with normal-sounding S1 and S2, with no murmur or gallops. The abdomen is nondistended with decreased but present BS. The is a few hundred cc of black liquidy/nonclotting blood coming out the G tube. Minimal diffuse tenderness on deep palpation; no guarding or rebound. She has 2-3+ pitting edema, with light anasarca. Neuro exam is nonfocal. Started her on 3mg/hr Lasix drip this morning. Urine output averaging > 200 cc/hr. LABORATORY DATA: As below. Notably, Hb steady at 10.1. INR is 1.2. BUN/creat down to 54/1.0. K 3.3, bicarb 22, Phos 2.3. Lactate 0.9. BNP down to 608. Tbili down to 0.9, transaminases down, Albumin 3.2.. MICROBIOLOGY: Blood cultures from yesterday January 15 are negative. Sputum from January 12 shows 3+ polys w mixed resp kylah. IMPRESSION: 1. Underlying obesity and ANITA. 2. Underlying cor pulmonale and right heart failure on that basis. 3. Status post cardiac arrest on December 27. Etiology unclear. Possibly respiratory in origin. Seems to have made a complete recovery despite 10 minutes CPR time. 4. CAD and Diastolic congestive heart failure. 5. Underlying atrial fibrillation. Rate control is borderline with esmolol. Anticoagulation was discontinued with the current GI bleed. Starting oral metoprolol today. 6. Hypoxemic and hypercarbic respiratory failure secondary to ANITA and pulmonary aspiration. Status post tracheostomy. Should go onto trach collar tomorrow. 7. Hemo thorax. Presumably secondary to broken ribs during CPR. Status post drainage. 8. Gastric bleed with hemorrhagic shock on January 14. Either from the PEG site or from a gastric ulcer. Unable to say for sure. Dilutional coagulopathy now resolved. Following w lab rechecks. 9. Acute kidney injury. Likely ATN, Renal ratio is high, could be 248? blood in the GI tract. She?s definitely total body fluid overloaded. Needs extended diuresis. Albumin should be adequate. 10. Diabetes mellitus. On sliding scale insulin. 11. GI: Esophageal stricture, status post balloon dilatation by Dr. Rainey. Hopefully she?ll have no more bleeding and we can start tube feeds tomorrow. 12. Hypernatremia. I?ll add free water to the G tube. 13. History of head and neck cancer. Ongoing consideration as described above. 14. Nutrition. Plan to start tube feeds tomorrow. 15. ID: The patient is not septic Updated family on condition and treatment. Continuing with current code status, DNR/No CPR. We will not do dialysis. Critical care time: 50 min. Critical Care Time (minutes): 50 Physical Exam Vital Signs: Vital Signs: Last Vital Signs Temp 98.8 F 01/16/21 14:00 Pulse 96 01/16/21 14:00 Resp 17 01/16/21 14:00 BP 152/69 H 01/16/21 14:00 Pulse Ox 98 01/16/21 14:00 Oxygen Flow Rate 2 12/26/20 15:00 Body Mass Index 39.2 Objective Data Labs CBC & Chem 7: 01/16/21 05:03 01/16/21 05:03 Labs: Laboratory Results - last 24 hr 01/14/21 01/15/21 01/15/21 02:22 16:41 16:52 WBC RBC Hgb 8.6 L Hct 26.3 L MCV MCH MCHC RDW Plt Count MPV Absolute Nucleated RBC Nucleated RBC % (auto) PT INR VBG pH 7.38 VBG pCO2 40 VBG pO2 54 VBG HCO3 24 VBG O2 Saturation 84.0 VBG Base Excess -0.5 Sodium Potassium Chloride Carbon Dioxide Anion Gap BUN Creatinine Estim Creat Clear Calc Estimated GFR Random Glucose Lactic Acid Calcium Phosphorus Magnesium Total Bilirubin AST ALT Alkaline Phosphatase B-Natriuretic Peptide Total Protein Albumin Ur Random Sodium Blood Type O Positive Antibody Screen NEGATIVE Crossmatch See Detail 01/15/21 01/15/21 01/16/21 22:26 22:26 05:03 WBC RBC Hgb 10.0 L Hct 30.0 L MCV MCH MCHC RDW Plt Count MPV Absolute Nucleated RBC Nucleated RBC % (auto) PT 14.8 H INR 1.2 H VBG pH VBG pCO2 VBG pO2 VBG HCO3 VBG O2 Saturation VBG Base Excess Sodium Potassium Chloride Carbon Dioxide Anion Gap BUN 53 H Creatinine 1.27 Estim Creat Clear Calc 49.6 Estimated GFR 41 Random Glucose Lactic Acid Calcium Phosphorus Magnesium Total Bilirubin AST ALT Alkaline Phosphatase B-Natriuretic Peptide Total Protein Albumin Ur Random Sodium Blood Type Antibody Screen Crossmatch 01/16/21 01/16/21 01/16/21 05:03 05:03 05:03 WBC 16.6 H RBC 3.40 L Hgb 10.1 L Hct 31.2 L MCV 91.8 MCH 29.7 MCHC 32.4 RDW 16.7 H Plt Count 85 L D MPV 11.1 Absolute Nucleated RBC 0.140 H Nucleated RBC % (auto) 0.8 H PT INR VBG pH VBG pCO2 VBG pO2 VBG HCO3 VBG O2 Saturation VBG Base Excess Sodium 147 H Potassium 3.3 Chloride 114 H Carbon Dioxide 22 Anion Gap 14 BUN 54 H Creatinine 1.08 Estim Creat Clear Calc 58.3 Estimated GFR 50 Random Glucose 163 H Lactic Acid Calcium 7.7 L Phosphorus 2.3 L Magnesium 1.8 Total Bilirubin 0.9 AST 97 H ALT 136 H Alkaline Phosphatase 60 B-Natriuretic Peptide 608 H Total Protein 4.7 L Albumin 3.2 L Ur Random Sodium Blood Type Antibody Screen Crossmatch 01/16/21 01/16/21 01/16/21 05:05 05:20 06:20 WBC RBC Hgb Hct MCV MCH MCHC RDW Plt Count MPV Absolute Nucleated RBC Nucleated RBC % (auto) PT INR VBG pH 7.38 VBG pCO2 39 VBG pO2 52 VBG HCO3 23 VBG O2 Saturation 84.0 VBG Base Excess -1.0 Sodium Potassium Chloride Carbon Dioxide Anion Gap BUN Creatinine Estim Creat Clear Calc Estimated GFR Random Glucose Lactic Acid 0.9 Calcium Phosphorus Magnesium Total Bilirubin AST ALT Alkaline Phosphatase B-Natriuretic Peptide Total Protein Albumin Ur Random Sodium < 20.0 Blood Type Antibody Screen Crossmatch Microbiology Microbiology Results: Microbiology 01/15/21 11:04 Blood - Venous Blood Culture - Preliminary No growth after 24 hours. 01/15/21 11:04 Blood - Venous Blood Culture - Preliminary No growth after 24 hours. 01/10/21 06:11 Blood - Venous Blood Culture - Final No growth after 5 days. 01/10/21 06:11 Blood - Venous Blood Culture - Final No growth after 5 days. 01/12/21 10:41 Sputum - Suctioned Gram Stain - Final 01/12/21 10:41 Sputum - Suctioned Sputum Culture - Final 12/30/20 06:29 Blood - Venous Blood Culture - Final No growth after 5 days. 12/30/20 06:20 Blood - Venous Blood Culture - Final No growth after 5 days. 12/31/20 15:59 Sputum - Suctioned Gram Stain - Final 12/31/20 15:59 Sputum - Suctioned Sputum Culture - Final 12/30/20 06:37 Kidney - Jones Catheter Urine Culture - Final No growth. 12/27/20 17:56 Sputum - Suctioned Gram Stain - Final 12/27/20 17:56 Sputum - Suctioned Sputum Culture - Final 12/27/20 17:53 Urine clean catch - Clean Catch Midstream Urine Culture - Final No growth. Critical Care Time Critical Care Time (minutes): 60
[2021-01-16] MEDS: Morphine Sulfate 2 MG/ML CARTRIDGE 1 MG IVPUSH ×3 (15:11→23:20)
[2021-01-16] MEDS: Magnesium Sulfate/H2O 2 GM/50 ML PIGGYBACK IV (15:11)
[2021-01-16] MEDS: Calcium Gluconate/NaCl,Iso-Osm 2 GM/100 ML PLAST..BAG IV (15:11)
[2021-01-16] MEDS: Metoprolol Tartrate 25 MG TABLET G-TUBE (15:24)
[2021-01-16 15:32] LABS: Hemoglobin 10.9 g/dl (12.0-16.0)
[2021-01-16 16:02] LABS: Anion Gap 13 (12-20); Blood Urea Nitrogen 51 mg/dL (9-16); Calcium 7.8 mg/dL (8.4-10.2); Carbon Dioxide 26 mmol/L (22-29); Chloride 114 mmol/L (96-108); Creatinine Clr Calc Pharmacy 66.3; Estimated Glomerular Filt Rate 58; Glucose Random 156 mg/dL (60-115); Potassium 3.1 mmol/L (3.3-5.1); Sodium 150 mmol/L (135-145)
[2021-01-16] MEDS: Dextrose 5 % 1,000 ML 80 ML IVCONT (16:43)
--- NOTE | 2021-01-16 17:16 | PC.NURSE ---
S/E Afebrile, BC negative x2, WBC down to 16.6 Precedex gtt stopped per md Patient arousable to name, follows commands NA 150 - started on D5W @ 80cc/hr Afib, HR 70-100's - Lopressor restarted, Esmolol gtt titrated per protocol 3-4+ pitting edema - started on lasix gtt @ 2mg/hr - 2485cc total output K, Mag, Calcium, & Phos replaced TLC L subclavian patent, dressing C/D/I VBGs 7.38/39/52/23 LS dim throughout, scant thick blood tinged secretions Switched from PS to trach collar 28% - sat high 90's Trach care completed, inner cannula cleansed H&H stable 10.9/33.0 - PRBC on hold per MD PRN Morphine ordered & administered for abdominal pain Peg to low intermittent suction - output approx 450 cc thick dark red/black - MD aware 120 water flushes q6hr ordered - tolerating well Thick cream colored vaginal secretions - started on Diflucan Fungal to groin & abdominal folds - Nystatin powder applied Redness to buttocks/coccyx - blanchable - barrier cream applied Patient bathed, hair washed, mouth care provided Air loss bed & prevlon system in place Family updated by this RN & MD
[2021-01-17] VITALS (34 sets, daily range): BP systolic 100–151; BP diastolic 45–81; PULSE 76–100; RESP 17–24; TEMP 36–37.5; O2SAT 91–995
[2021-01-17] MEDS: Esmolol HCl/NaCl Iso 2,500 MG/250 ML IV.SOLN 66.13 MG IVCONT ×9 (00:29→20:47)
[2021-01-17] MEDS: 0.9 % Sodium Chloride Flush 3 ML SYRINGE IVFLUSH ×4 (00:30→20:48)
[2021-01-17] MEDS: Metoprolol Tartrate 25 MG TABLET G-TUBE ×3 (02:20→10:52)
[2021-01-17] MEDS: Dextrose 5 % 1,000 ML 80 ML IVCONT ×2 (04:18→16:20)
[2021-01-17 05:23] LABS: VBG Base Excess 4.9 mmol/L; VBG HCO3 30 mmol/L (22-26); VBG pCO2 50 mmHg; VBG pH 7.39 (7.32-7.43); VBG pO2 51 mmHg
[2021-01-17 05:33] LABS: Venous Blood Gas Refer to POC result
[2021-01-17 05:59] LABS: Hematocrit 31.5 % (37-47); Hemoglobin 10.2 g/dl (12.0-16.0); Mean Corpuscular HGB Conc 32.4 g/dl (31.0-35.0); Mean Corpuscular Hemoglobin 30.4 pg (27.0-33.0); Mean Platelet Volume 11.2 fL (9.4-12.3); NRBC Pct Auto 0.6 /100WBC (0.0-0.2); Platelet Count 95 X10*3/uL (160-400); Red Blood Count 3.35 X10*6/uL (4.20-5.50); Red Cell Distribution Width 17.4 % (11.0-16.0); White Blood Count 19.1 X10*3/uL (4.8-10.8)
[2021-01-17 06:05] LABS: B Type Natriuretic Peptide 1644 pg/mL (<100); INTERNATIONAL NORM RATIO 1.2 (0.9-1.1); Prothrombin Time 14.3 SEC (10.8-13.0)
[2021-01-17 06:11] LABS: Albumin Level 3.2 g/dL (3.5-5.0); Anion Gap 14 (12-20); Blood Urea Nitrogen 41 mg/dL (9-16); Calcium 7.5 mg/dL (8.4-10.2); Carbon Dioxide 27 mmol/L (22-29); Chloride 110 mmol/L (96-108); Creatinine Clr Calc Pharmacy 82.9; Estimated Glomerular Filt Rate > 60; Glucose Random 152 mg/dL (60-115); Magnesium 1.5 mg/dL (1.6-2.6); Potassium 2.5 mmol/L (3.3-5.1); Sodium 148 mmol/L (135-145)
[2021-01-17 06:21] LABS: Procalcitonin 0.23 ng/mL
[2021-01-17] MEDS: Potassium Chloride/H20 40 MEQ/100 ML PIGGYBACK 50 MEQ IV (06:36)
[2021-01-17] MEDS: modafiniL 100 MG TABLET PO (08:23)
[2021-01-17] MEDS: Chlorhexidine Gluc Oral Rinse 15 ML MOUTHWASH BUCCAL ×3 (08:23→20:47)
[2021-01-17] MEDS: Nystatin Powder 15 GM BOTTLE 1 APPL TOPICAL ×3 (08:24→20:47)
[2021-01-17 09:56] LABS: Phosphorus 3.2 mg/dL (2.7-4.5)
[2021-01-17] MEDS: Magnesium Sulfate/H2O 2 GM/50 ML PIGGYBACK IV ×2 (10:45→17:17)
[2021-01-17] MEDS: Potassium Chloride Packet 20 MEQ PACKET 40 MEQ G-TUBE ×5 (10:46→22:34)
[2021-01-17] MEDS: Furosemide 200 MG in 0.9 % Sodium Chloride 80 ML IVCONT (10:46)
--- NOTE | 2021-01-17 11:34 | PM.CCPN ---
Subjective Subjective Date of Service: 01/17/21 Interval History: Mrs. Ch was transferred to ICU on December 27 after a cardiac arrest on [facility]. The patient is a 75 yo woman with PMHx of morbid obesity, ANITA noncompliant w CPAP, hypertension, diastolic heart failure, h/o VT, h/o PAFib on Eliquis, flecainide, and metoprolol, status post recent cardioversion, hyperlipidemia, anxiety, and h/o chronic back pain status post surgery. The patient also has a h/o head and neck carcinoma in 2007, treated at that time with chemo/RTx and has been remission since. Echo on 11/19 showed normal LV systolic function, w EF 60-65%. No obvious valvular pathology. RV cavity size was normal with mildly decreased right ventricular systolic function. The IVC was dilated and collapsed less than 50% with inspiration. Mild pulmonary hypertension was present. She had a recent admission for hyponatremia and heart failure. The question of SIADH came up, and therefore the question of malignancy was raised bec of her previous cancer. A CT of her head and neck revealed no clear lesions. CT chest showed multiple small nodules, and a small right pleural eff. Dr. Calvillo recommended an ENT exam to look for any recurrent lesion. HISTORY OF PRESENT ILLNESS: The patient was readmitted on December 13 with hyponatremia, CHF, and fluid overload. She was in sinus rhythm. She was managed medically and Flecainide, Lopressor, and Eliquis were continued. At some point, she went back into Afib. With the Lasix, her bicarb started rising. She developed trouble eating and swallowing. She was seen by Dr. Whiting. Her base excess delfino into the 20?s, and she developed a marked hypercarbia, altho without CO2 narcosis. On 12/23, she was started on Provigil, and nighttime CPAP was changed to BiPAP. Her hypercarbia improved. On 12/24, she underwent EGD and was found to have gastric polyps and an esophageal stricture. She underwent biopsies and balloon dilatation [place] [facility] with a small tear noted. She?d been getting low dose [place] oxygen the entire hospital stay (was not on oxygen at home). On December 27 the patient had a bradycardic arrest. CPR was started immediately. She was defib?ed three times, got three rounds of epi, and was intubated. CPR duration was 10 minutes. She was awake and responsive after the code. The cause of the arrest was undetermined. The patient was transferred to ICU, where she was awake and trying to talk. She was therefore not cooled. Echo at that time was notable for normal LV size and fxn, with no RWMA. RV was enlarged with good function, w large RA. The IVC was large with no insp collapse. CT pulmonary angiogram showed no pulmonary emboli. RV was mildly enlarged. She had large bilateral pleural effusions with compressive atelectasis, and rib fx?s 2? vigorous CPR. Anticoagulation was held. She was extubated to BiPAP on December 29. On December 30, a right pleural drainage catheter was placed and drained 2500 cc of bloody fluid (probably hemothorax 2? CPR). She had to be reintubated after that bec of hypercarbia. Her right lung reexpanded nicely after the fluid drainage. The patient was extubated again on 01/04, but required reintubation the next day 2? aspiration. The right pleural drainage tube was removed on January 08 and the patient underwent open tracheostomy by Dr. Castro that same day. A fenestrated tracheostomy tube was placed. On 01/09, a venous duplex scan of her left UE (done bec of generalized swelling of the arm) showed thrombosis of one of her left brachial veins, so she was put on full dose Lovenox. On January 12, she went onto trach collar with no problem. She was breathing easy and stayed on the trach collar all day and that night, with Sat 99% on 28% TC. The next day, she went to the OR for PEG by Dr. Castro. No complications. In the patient care nursing assistant hours of January 14, blood started issuing from her Gtube and she went into hemorrhagic shock. Hb dropped to 7.7, INR was elevated. She was given mult blood products, and put on bid PPI. Later in the morning, her blood pressure dropped again and rivera blood was aspirated from her G-tube. She again went into shock. She was given multiple products. She underwent EGD by Dr. Rainey. Findings: Large pool of blood noted in stomach. The PEG site was inspected, no visible vessel or ulcer seen. Large clot in fundus with small amount of oozing, clot could not be suctioned or dislodged. The duodenal bulb and descending duodenum were normal. Hemospray was liberally applied and the procedure ended. After the scope, she still had a leak around her trach tube. We were able to achieve return volumes in the 300 cc range by using set tidal volumes in the 500cc range. Last transfusion was on January 15. Since January 14, she has been very inanimate. Opens her eyes but very noninteractive. We started her on Provigil this morning, but no improvement as yet. She?s on no sedatives. She?s fully awake and looks better than yesterday, thoroughly nontoxic, but still inanimate and not interactive. HR 80?s, AFib. BP 111/56, on esmolol 100ug. On 28% trach collar, RR is about 20, with 1-2+ access muscles, Sat 96%. CVBG this morning showed 7.39/50/+4. Bec of her WOB, we put her back on the ventilator. She had WOB on PSV, so we put her back on assist control. She?s been afebrile for 48hrs. No visible JVD. Trach site is dry. Chest has light diffuse rhonchi, w normal exp phase. Irreg rate and rhythm, tachy, with normal-sounding S1 and S2, with no murmur or gallops. The abdomen is nondistended with good BS. I aspirated her G-tube and got back green bilious liquid with a few flecks of black blood. Adomen has good BS, is not distended, and has minimal tenderness on deep palpation; no guarding or rebound. She has 2-3+ pitting edema w anasarca. Neuro exam is nonfocal. I have not seen her move any extremities. She?s on Lasix drip @ 2mg/hr. Urine output running 150-200 cc/hr. LABORATORY DATA: As below. Notably, Hb steady at 10.2. INR is 1.2. BUN/creat down to 41/0.7. K 2.5, bicarb up to 27, Phos 3.2. BNP up to 1644. Albumin 3.2. MICROBIOLOGY: Blood cultures drawn 01/15 (bec of low grade temp w a bump in her WBC) are negative. Sputum from January 12 shows 3+ polys w mixed resp kylah. IMPRESSION: 1. Underlying obesity and ANITA. 2. Underlying cor pulmonale and right heart failure on that basis. 3. Status post cardiac arrest on December 27. Etiology unclear. Possibly respiratory in origin. Seemed to have made a complete neurologic recovery despite 10 minutes CPR time. 4. CAD and Diastolic congestive heart failure. 5. Underlying atrial fibrillation. Rate control is borderline with esmolol. Anticoagulation was discontinued with the current GI bleed. Started her on oral metoprolol yesterday, increasing it to 50 mg bid today. 6. Hypoxemic and hypercarbic respiratory failure secondary to ANITA and pulmonary aspiration. Status post tracheostomy. Was on trach collar all day yesterday and all of last night. Fatigued this morning so went back onto the ventilator. 7. Hemo thorax. Presumably secondary to broken ribs during CPR. Status post drainage. 8. Gastric bleed with hemorrhagic shock on January 14. Either from the PEG site or from a gastric ulcer. Unable to say for sure. Dilutional coagulopathy now resolved. 9. Acute kidney injury. Likely ATN, Renal ratio is high, could be 2? blood in the GI tract. She?s definitely total body fluid overloaded. Needs extended diuresis. Current serum albumin should be adequate. 10. Diabetes mellitus. On sliding scale insulin. 11. GI: Esophageal stricture, status post balloon dilatation by Dr. Rainey. Starting tube feeds today. 12. Hypernatremia. Improving with D5W infusion and free water via the G tube. 13. History of head and neck cancer. Ongoing consideration as described above. 14. Nutrition. Advance to goal rate on tube feeds tomorrow. 15. ID: The patient is not septic Updated family on condition and treatment. Continuing with current code status, DNR/No CPR. We will not do dialysis. Critical care time: 60 min. Critical Care Time (minutes): 60 Physical Exam Vital Signs: Vital Signs: Last Vital Signs Temp 96.8 F 01/17/21 11:00 Pulse 83 01/17/21 11:00 Resp 20 01/17/21 11:00 BP 130/61 01/17/21 11:00 Pulse Ox 96 01/17/21 11:00 Oxygen Flow Rate 2 12/26/20 15:00 Body Mass Index 39.2 Objective Data Labs CBC & Chem 7: 01/17/21 05:10 01/17/21 05:10 Labs: Laboratory Results - last 24 hr 01/14/21 01/16/21 01/16/21 02:22 15:17 15:17 WBC RBC Hgb 10.9 L Hct 33.0 L MCV MCH MCHC RDW Plt Count MPV Absolute Nucleated RBC Nucleated RBC % (auto) PT INR VBG pH VBG pCO2 VBG pO2 VBG HCO3 VBG O2 Saturation VBG Base Excess Sodium 150 H Potassium 3.1 L Chloride 114 H Carbon Dioxide 26 Anion Gap 13 BUN 51 H Creatinine 0.95 Estim Creat Clear Calc 66.3 Estimated GFR 58 Random Glucose 156 H Calcium 7.8 L Phosphorus Magnesium B-Natriuretic Peptide Albumin Procalcitonin Blood Type Antibody Screen Crossmatch See Detail 01/17/21 01/17/21 01/17/21 05:10 05:10 05:10 WBC 19.1 H RBC 3.35 L Hgb 10.2 L Hct 31.5 L MCV 94.0 MCH 30.4 MCHC 32.4 RDW 17.4 H Plt Count 95 L MPV 11.2 Absolute Nucleated RBC 0.120 H Nucleated RBC % (auto) 0.6 H PT 14.3 H INR 1.2 H VBG pH VBG pCO2 VBG pO2 VBG HCO3 VBG O2 Saturation VBG Base Excess Sodium 148 H Potassium 2.5 L* Chloride 110 H Carbon Dioxide 27 Anion Gap 14 BUN 41 H Creatinine 0.76 Estim Creat Clear Calc 82.9 Estimated GFR > 60 Random Glucose 152 H Calcium 7.5 L Phosphorus 3.2 Magnesium 1.5 L B-Natriuretic Peptide Albumin 3.2 L Procalcitonin Blood Type Antibody Screen Crossmatch 01/17/21 01/17/21 01/17/21 05:10 05:10 05:16 WBC RBC Hgb Hct MCV MCH MCHC RDW Plt Count MPV Absolute Nucleated RBC Nucleated RBC % (auto) PT INR VBG pH 7.39 VBG pCO2 50 VBG pO2 51 VBG HCO3 30 H VBG O2 Saturation 81.0 VBG Base Excess 4.9 Sodium Potassium Chloride Carbon Dioxide Anion Gap BUN Creatinine Estim Creat Clear Calc Estimated GFR Random Glucose Calcium Phosphorus Magnesium B-Natriuretic Peptide 1644 H Albumin Procalcitonin 0.23 Blood Type Antibody Screen Crossmatch 01/17/21 08:51 WBC RBC Hgb Hct MCV MCH MCHC RDW Plt Count MPV Absolute Nucleated RBC Nucleated RBC % (auto) PT INR VBG pH VBG pCO2 VBG pO2 VBG HCO3 VBG O2 Saturation VBG Base Excess Sodium Potassium Chloride Carbon Dioxide Anion Gap BUN Creatinine Estim Creat Clear Calc Estimated GFR Random Glucose Calcium Phosphorus Magnesium B-Natriuretic Peptide Albumin Procalcitonin Blood Type O Positive Antibody Screen NEGATIVE Crossmatch Microbiology Microbiology Results: Microbiology 01/15/21 11:04 Blood - Venous Blood Culture - Preliminary No growth after 24 hours. 01/15/21 11:04 Blood - Venous Blood Culture - Preliminary No growth after 24 hours. 01/10/21 06:11 Blood - Venous Blood Culture - Final No growth after 5 days. 01/10/21 06:11 Blood - Venous Blood Culture - Final No growth after 5 days. 01/12/21 10:41 Sputum - Suctioned Gram Stain - Final 01/12/21 10:41 Sputum - Suctioned Sputum Culture - Final 12/30/20 06:29 Blood - Venous Blood Culture - Final No growth after 5 days. 12/30/20 06:20 Blood - Venous Blood Culture - Final No growth after 5 days. 12/31/20 15:59 Sputum - Suctioned Gram Stain - Final 12/31/20 15:59 Sputum - Suctioned Sputum Culture - Final 12/30/20 06:37 Kidney - Jones Catheter Urine Culture - Final No growth. 12/27/20 17:56 Sputum - Suctioned Gram Stain - Final 12/27/20 17:56 Sputum - Suctioned Sputum Culture - Final 12/27/20 17:53 Urine clean catch - Clean Catch Midstream Urine Culture - Final No growth.
[2021-01-17 16:55] LABS: Magnesium 1.7 mg/dL (1.6-2.6)
[2021-01-17 17:01] LABS: Potassium 2.7 mmol/L (3.3-5.1)
[2021-01-17] MEDS: Metoprolol Tartrate 50 MG TABLET G-TUBE (17:18)
--- NOTE | 2021-01-17 17:38 | PC.NURSE ---
S/E Afebrile, WBC 19.1 Arousable to name, drowsy, not following commands, nonverbal Head CT ordered and obtained - see report NA 148 - continued on D5W @ 80cc/hr Afib, HR 90's - continued on Esmolol gtt and Lopressor 50 BID 1548 - 32 BVT - notified, asymptomatic Stat serum K & Mag ordered - K 2.7, Mag 1.7 - K & Mag replaced 2+ pitting edema to lower extremities ; 3+ pitting/weeping edema to bilateral hands Continued on lasix gtt @ 2mg/hr - Urine output 1775cc total throughout shift LS dim throughout, thick inline secretions VBGs 7.39/50/51/30; Increased WOB - placed back on Vent AC 20/450/5/30% @ 0930 Unable to auscultate Peg placement - MD notified & okay to use per MD Tube feeds restarted and tolerating well - Bilous secretions w/ aspiration No BM, passing flatus Stage I pressure injury bilateral buttocks - barrier cream applied Air loss bed & prevlon system in place Nystatin to abdominal folds Bathed, repo q2hr Family updated
[2021-01-18] VITALS (33 sets, daily range): BP systolic 107–166; BP diastolic 53–96; PULSE 73–201; RESP 19–32; TEMP 36.6–38; O2SAT 97–100
[2021-01-18] MEDS: Metoprolol Tartrate 50 MG TABLET G-TUBE ×2 (00:40→09:58)
[2021-01-18] MEDS: Esmolol HCl/NaCl Iso 2,500 MG/250 ML IV.SOLN 66.13 MG IVCONT (00:41)
[2021-01-18] MEDS: Dextrose 5 % 1,000 ML 80 ML IVCONT (03:57)
[2021-01-18 05:34] LABS: MANUAL DIFF FLAG NO
[2021-01-18 05:37] LABS: Basophils Percent Auto 0.1 % (0-2); Eosinophils Percent Auto 0.3 % (0-4); Hemoglobin 10.9 g/dl (12.0-16.0); Imm Gran Abs Auto 0.28 X10*3/uL (0.00-0.03); Imm Gran Pct Auto 1.9 % (0.0-0.4); Lymphocytes Absolute Auto 0.6 X10*3/uL (1.2-4.9); Lymphocytes Percent Auto 4.4 % (20-40); Mean Corpuscular HGB Conc 32.1 g/dl (31.0-35.0); Mean Corpuscular Hemoglobin 29.8 pg (27.0-33.0); Mean Corpuscular Volume 92.9 fL (80-98); Mean Platelet Volume 11.3 fL (9.4-12.3); Monocytes Absolute Auto 1.2 X10*3/uL (0.1-1.2); Monocytes Percent Auto 8.3 % (2-11); NRBC Pct Auto 0.3 /100WBC (0.0-0.2); Neutrophils Absolute Auto 12.4 X10*3/uL (2.0-8.3); Red Blood Count 3.66 X10*6/uL (4.20-5.50); Red Cell Distribution Width 17.5 % (11.0-16.0); White Blood Count 14.5 X10*3/uL (4.8-10.8)
[2021-01-18 05:46] LABS: Platelet Count 99 X10*3/uL (160-400)
[2021-01-18] MEDS: Esmolol HCl/NaCl Iso 2,500 MG/250 ML IV.SOLN 49.6 MG IVCONT (05:52)
[2021-01-18 05:58] LABS: Phosphorus 1.7 mg/dL (2.7-4.5)
--- NOTE | 2021-01-18 09:28 | PM.PNGS ---
Subjective Subjective Date of Service: 01/18/21 Interval history: No further events over the weekend Tolerating PEG tube feeds No bleeding reported Physical Exam Vital Signs: Vital Signs: Last Vital Signs Temp 99.5 F 01/18/21 09:00 Pulse 100 01/18/21 09:00 Resp 22 H 01/18/21 09:00 BP 133/55 L 01/18/21 09:00 Pulse Ox 97 01/18/21 09:00 Oxygen Flow Rate 2 12/26/20 15:00 Body Mass Index 39.2 Laboratory Results - last 24 hr 01/17/21 01/17/21 01/17/21 05:10 08:51 16:06 WBC RBC Hgb Hct MCV MCH MCHC RDW Plt Count MPV Immature Gran % (A uto) Neut % (Auto) Lymph % (Auto) [place] % (Auto) Eos % (Auto) Baso % (Auto) Lymph # (Auto) [place] # (Auto) Eos # (Auto) Baso # (Auto) Abs Immat Gran (au to) Absolute Neuts (au to) Absolute Nucleated RBC Nucleated RBC % (a uto) Potassium 2.7 L Phosphorus 3.2 Magnesium 1.7 Blood Type O Positive Antibody Screen NEGATIVE 01/18/21 01/18/21 05:10 05:10 WBC 14.5 H RBC 3.66 L Hgb 10.9 L Hct 34.0 L MCV 92.9 MCH 29.8 MCHC 32.1 RDW 17.5 H Plt Count 99 L MPV 11.3 Immature Gran % (A uto) 1.9 H Neut % (Auto) 85.0 H Lymph % (Auto) 4.4 L [place] % (Auto) 8.3 Eos % (Auto) 0.3 Baso % (Auto) 0.1 Lymph # (Auto) 0.6 L [place] # (Auto) 1.2 Eos # (Auto) 0.0 Baso # (Auto) 0.0 Abs Immat Gran (au to) 0.28 H Absolute Neuts (au to) 12.4 H Absolute Nucleated RBC 0.040 H Nucleated RBC % (a uto) 0.3 H Potassium Phosphorus 1.7 L Magnesium Blood Type Antibody Screen Const: General: no acute distress HENMT: Other: Trach site dry Resp: Other: On ventilator GI: Other: Soft, no guarding rebound, peg site dry Progress Note: A&P Assessment and plan (1) Acute hypercapnic respiratory failure due to obstructive sleep apnea: Status: Acute Assessment and Plan: Status post trach, status post PEG No further bleeding episodes Tolerating PEG tube feeds Plan to DC sutures from the tracheostomy site this week Care as per ICU Fall Risk Details Current Medications: Current Medications Generic Name Dose Route Start Last Admin Trade Name Freq PRN Reason Stop Dose Admin Chlorhexidine Gluconate 15 ml 01/05/21 15:00 01/17/21 20:47 Chlorhexidine Gluc Oral Rinse 15 Ml Mouthwash BUCCAL 15 ml TID DEE Administration Potassium Chloride 30 meq/ 1,015 mls @ 80 mls/hr 01/18/21 10:00 Dextrose IVCONT .[id number] DEE Metoprolol Tartrate 50 mg 01/17/21 09:32 01/18/21 00:40 Metoprolol Tartrate 50 Mg Tablet G-TUBE 50 mg Q8H DEE Administration Protocol Metoprolol Tartrate 25 mg 01/17/21 10:45 01/17/21 10:52 Metoprolol Tartrate 25 Mg Tablet G-TUBE 25 mg ONCE DEE Administration Modafinil 200 mg 01/18/21 09:00 Modafinil 200 Mg Tablet PO DAILY DEE Morphine Sulfate 1 mg 01/16/21 14:49 01/16/21 23:20 Morphine Sulfate 2 Mg/Ml Cartridge IVPUSH 1 mg Q1H PRN Administration mild pain Morphine Sulfate 2 mg 01/16/21 14:49 Morphine Sulfate 2 Mg/Ml Cartridge IVPUSH Q1H PRN moderate pain Nystatin 1 appl 01/09/21 17:00 01/17/21 20:47 Nystatin Powder 15 Gm Bottle TOPICAL 1 appl TID DEE Administration Protocol Omeprazole 40 mg 01/16/21 16:30 01/18/21 05:52 Omeprazole 20 Mg/10 Ml Susp.Recon G-TUBE 40 mg BID@0630,1630 DEE Administration Sodium Chloride 3 ml 12/14/20 00:00 01/17/21 20:48 0.9 % Sodium Chloride Flush 3 Ml Syringe IVFLUSH 3 ml QSHIFT DEE Administration Time Spent With Patient Time: Total time spent is greater than 50% in coordination of care (as documented) at patient's floor/unit and/or counseling patient: Time with patient: 15 - 24 minutes Procedures Date of Service Date of Service: 01/18/21
[2021-01-18] MEDS: Chlorhexidine Gluc Oral Rinse 15 ML MOUTHWASH BUCCAL ×3 (09:58→23:05)
[2021-01-18 09:59] LABS: Alanine Aminotransferase 120 U/L (0-31); Albumin Level 2.9 g/dL (3.5-5.0); Alkaline Phosphatase 98 U/L (39-117); Anion Gap 11 (12-20); Aspartate Amino Transferase 76 U/L (5-31); Bilirubin Total 0.7 mg/dL (0.0-1.0); Blood Urea Nitrogen 23 mg/dL (9-16); Calcium 7.3 mg/dL (8.4-10.2); Carbon Dioxide 34 mmol/L (22-29); Chloride 103 mmol/L (96-108); Creatinine Clr Calc Pharmacy 101.6; Estimated Glomerular Filt Rate > 60; Glucose Random 152 mg/dL (60-115); Magnesium 1.6 mg/dL (1.6-2.6); Sodium 146 mmol/L (135-145); Total Protein 4.5 g/dL (6.5-8.0)
[2021-01-18] MEDS: Nystatin Powder 15 GM BOTTLE 1 APPL TOPICAL ×3 (09:59→23:04)
--- NOTE | 2021-01-18 10:12 | MHC.CLN ---
F/U PT RECEIVING JEVITY AT MAX GOAL RATE 55CC/HR WITH 120CC FREE WATER FLUSHES Q SHIFT PROVIDES 1399KCALS (1569KCALS WITH D5W; 26KCALS/KG BASED ON IBW), 58G PROTEIN (.98G/KG), 1462CC TOTAL WATER FROM FORMULA AND FLUSHES (25CC/KG) BASED ON IBW NSG REPORTED PT TOLERATING WELL WITH NO RESIDUALS AT MAX GOAL RECOMMEND INCREASING FREE WATER FLUSHES 240CC Q SHIFT TO PROVIDE 1822CC TOTAL WATER FROM FORMULA AND FLUSHES (31CC/KG BASED ON IBW); DISCUSSED WITH MD AT ROUNDS NOTED NEW STAGE 1 BILAT BUTT-WILL MONITOR CLOSELY MONITOR TOLERANCE, RESIDUALS AND LYTES FOLLOWING
[2021-01-18 10:21] LABS: Potassium 2.4 mmol/L (3.3-5.1)
[2021-01-18] MEDS: Magnesium Sulfate/D5W 1 GM/100 ML PIGGYBACK IV (10:46)
[2021-01-18] MEDS: Potassium Chloride Packet 20 MEQ PACKET 40 MEQ PO ×3 (10:47→13:48)
[2021-01-18] MEDS: modafiniL 100 MG TABLET 200 MG PO (10:48)
--- NOTE | 2021-01-18 11:18 | PM.CCPN ---
Subjective Subjective Date of Service: 01/18/21 Interval History: 75-year-old female with complicated hospital course apparently has sleep apnea and obesity/hypoventilation and at 1 point as she became progressively more unresponsive and weak apparently due to worsening hypercarbic respiratory failure and hypoxia she developed symptomatic bradycardia with a cardio respiratory arrest had emergent intubation and a brief CPR was able to come back but the primary issue here having been respiratory failure not so much dysrhythmia but she is also a paroxysmal fibrillator and currently in atrial fib with controlled heart rate on beta blockade and she had had a right-sided hemo thorax from trauma of resuscitation had a chest tube which was pulled and alleviating the the hemo thorax and currently is status post tracheostomy and PEG tube placement with secondary gastric hemorrhage and currently with stable hemoglobin no further active bleeding stable renal function she is awake but not really responding in conversation and has a small trach cuff leak and this is with a 8. Shiley but when she is on minimal pressure from pressure support she is able to hold her volume and maintain a stable end-tidal CO2 and oxygen saturation and is tolerating feedings through the PEG tube Metabolically he she is mildly hypomagnesemic more profoundly hypokalemic and has a slowly resolving hypernatremia from a relative volume loss due to a Lasix drip which was discontinued Critical Care Time (minutes): 40 Physical Exam Vital Signs: Vital Signs: Last Vital Signs Temp 99.5 F 01/18/21 11:00 Pulse 102 H 01/18/21 11:00 Resp 22 H 01/18/21 11:00 BP 135/73 01/18/21 11:00 Pulse Ox 98 01/18/21 11:00 Oxygen Flow Rate 2 12/26/20 15:00 Body Mass Index 39.2 Const: Other: She is awake but not responding to questions and nonfocal neurologically Good bilateral carotid upstrokes no neck vein distension no bruits but significant peripheral edema Cardiac exam no gallops or murmurs Chest x-ray with minimal bilateral pleural effusions and no infiltrate Abdomen soft with no organomegaly and good bowel sounds Objective Data Labs CBC & Chem 7: 01/18/21 05:10 01/18/21 09:20 Labs: Laboratory Results - last 24 hr 01/17/21 01/18/21 01/18/21 16:06 05:10 05:10 WBC 14.5 H RBC 3.66 L Hgb 10.9 L Hct 34.0 L MCV 92.9 MCH 29.8 MCHC 32.1 RDW 17.5 H Plt Count 99 L MPV 11.3 Immature Gran % (Auto) 1.9 H Neut % (Auto) 85.0 H Lymph % (Auto) 4.4 L [place] % (Auto) 8.3 Eos % (Auto) 0.3 Baso % (Auto) 0.1 Lymph # (Auto) 0.6 L [place] # (Auto) 1.2 Eos # (Auto) 0.0 Baso # (Auto) 0.0 Abs Immat Gran (auto) 0.28 H Absolute Neuts (auto) 12.4 H Absolute Nucleated RBC 0.040 H Nucleated RBC % (auto) 0.3 H Sodium Potassium 2.7 L Chloride Carbon Dioxide Anion Gap BUN Creatinine Estim Creat Clear Calc Estimated GFR Random Glucose Calcium Phosphorus 1.7 L Magnesium 1.7 Total Bilirubin AST ALT Alkaline Phosphatase Total Protein Albumin 01/18/21 09:20 WBC RBC Hgb Hct MCV MCH MCHC RDW Plt Count MPV Immature Gran % (Auto) Neut % (Auto) Lymph % (Auto) [place] % (Auto) Eos % (Auto) Baso % (Auto) Lymph # (Auto) [place] # (Auto) Eos # (Auto) Baso # (Auto) Abs Immat Gran (auto) Absolute Neuts (auto) Absolute Nucleated RBC Nucleated RBC % (auto) Sodium 146 H Potassium 2.4 L* Chloride 103 Carbon Dioxide 34 H Anion Gap 11 L BUN 23 H Creatinine 0.62 Estim Creat Clear Calc 101.6 Estimated GFR > 60 Random Glucose 152 H Calcium 7.3 L Phosphorus Magnesium 1.6 Total Bilirubin 0.7 AST 76 H ALT 120 H Alkaline Phosphatase 98 D Total Protein 4.5 L Albumin 2.9 L Microbiology Microbiology Results: Microbiology 01/15/21 11:04 Blood - Venous Blood Culture - Preliminary No growth after 48 hours. 01/15/21 11:04 Blood - Venous Blood Culture - Preliminary No growth after 48 hours. 01/10/21 06:11 Blood - Venous Blood Culture - Final No growth after 5 days. 01/10/21 06:11 Blood - Venous Blood Culture - Final No growth after 5 days. 01/12/21 10:41 Sputum - Suctioned Gram Stain - Final 01/12/21 10:41 Sputum - Suctioned Sputum Culture - Final 12/30/20 06:29 Blood - Venous Blood Culture - Final No growth after 5 days. 12/30/20 06:20 Blood - Venous Blood Culture - Final No growth after 5 days. 12/31/20 15:59 Sputum - Suctioned Gram Stain - Final 12/31/20 15:59 Sputum - Suctioned Sputum Culture - Final 12/30/20 06:37 Kidney - Jones Catheter Urine Culture - Final No growth. 12/27/20 17:56 Sputum - Suctioned Gram Stain - Final 12/27/20 17:56 Sputum - Suctioned Sputum Culture - Final 12/27/20 17:53 Urine clean catch - Clean Catch Midstream Urine Culture - Final No growth. Progress Note: A&P Assessment and plan (1) Atrial fibrillation status post cardioversion: Status: Acute (2) Obesity: Status: Acute (3) Urinary retention: Status: Acute (4) Pulmonary aspiration: Status: Acute (5) HTN (hypertension): Status: Acute (6) CAD (coronary artery disease): Status: Acute (7) Acute and chronic respiratory failure: Status: Acute (8) Hemothorax on right: Status: Acute (9) Acute hypercapnic respiratory failure due to obstructive sleep apnea: Status: Acute (10) Acute renal failure due to tubular necrosis: Status: Acute (11) Sick sinus syndrome: Status: Acute (12) Symptomatic bradycardia: Status: Acute (13) Sleep apnea: Status: Acute (14) PAF (paroxysmal atrial fibrillation): Status: Acute (15) Cardiac arrest: Status: Acute (16) Metabolic alkalosis: Status: Acute (17) Dysphagia: Status: Acute (18) Heart failure with preserved ejection fraction: Status: Acute (19) Metabolic alkalosis: Status: Acute (20) Hyperkalemia: Status: Acute (21) Hyponatremia: Status: Acute (22) CHF (congestive heart failure): Status: Acute (23) Fluid overload: Status: Acute (24) Acute diastolic CHF (congestive heart failure): Status: Acute (25) Uncontrolled hypertension: Status: Acute (26) Hypokalemia due to excessive renal loss of potassium: Status: Acute (27) Hypernatremia: Status: Acute Assessment and Plan: The plan is to aggressively replete at least 160 mEq of potassium today and 1 g of magnesium sulfate and continue free water replacement and then address heart rate control with combination of digoxin and beta blockade but stopping Lasix drip and stop being the IV esmolol and may begin physical therapy
[2021-01-18 11:57] LABS: Venous Blood Gas Refer to POC result
[2021-01-18 11:58] LABS: VBG Base Excess 13.2 mmol/L; VBG HCO3 38 mmol/L (22-26); VBG pCO2 49 mmHg; VBG pH 7.49 (7.32-7.43); VBG pO2 37 mmHg
[2021-01-18] MEDS: Morphine Sulfate 2 MG/ML CARTRIDGE IVPUSH (13:13)
[2021-01-18] MEDS: Digoxin 0.25 MG TABLET 0.5 MG PO (14:34)
--- NOTE | 2021-01-18 15:13 | PC.NURSE ---
Addendum entered by Davis Macias RN 01/18/21 17:41: HR up to 220, 5mg IV metoprolol given with 75mg metoprolol given thrugh PEG tube along with 0.25mg digoxin through PEG tube. BP now 138/66 with an afib rhythm at 113bpm. Original Note: Pt given 50mg metoprolol through PEG tube and esmolol turned off at 0930. Pt HR began to climb up to high of 205bpm at 1300 afib rvr w/ stable BP, MD aware. Potassium 120meQ through PEG tube replaced for K+ serum of 2.4, IV 30MeQ in 1000ml d5w infusing at 80ml/hr. Lasix drip turned off as well. Digoxin 0.5mg given at 1430, currently 1517 HR still climbing to 200 at times, goes down to 130, MD aware and no further orders at this time. Metoprolol dose was increased to 75mg, due at 1800. Will continue to monitor.
--- NOTE | 2021-01-18 15:27 | MHC.CM.PN ---
Pt remains in ICU: bleeding from Peg site ceased: blood counts more stable. Pt to be trialed on trach collar today. Clinical updates remitted to [facility] in anticipation of transfer. CM to follow
[2021-01-18 17:03] LABS: Anion Gap 12 (12-20); Blood Urea Nitrogen 20 mg/dL (9-16); Calcium 7.5 mg/dL (8.4-10.2); Carbon Dioxide 32 mmol/L (22-29); Chloride 104 mmol/L (96-108); Creatinine Clr Calc Pharmacy 108.6; Estimated Glomerular Filt Rate > 60; Glucose Random 136 mg/dL (60-115); Potassium 3.5 mmol/L (3.3-5.1); Sodium 144 mmol/L (135-145)
[2021-01-18] MEDS: Metoprolol Tartrate 5 MG in 0.9 % Sodium Chloride 50 ML 230 MG IV (17:17)
[2021-01-18] MEDS: 0.9 % Sodium Chloride Flush 3 ML SYRINGE IVFLUSH (17:17)
[2021-01-18] MEDS: Digoxin 0.125 MG TABLET 0.25 MG PO (17:18)
[2021-01-18] MEDS: Metoprolol Tartrate 25 MG TABLET 75 MG G-TUBE (17:18)
[2021-01-19] VITALS (36 sets, daily range): BP systolic 88–171; BP diastolic 60–103; PULSE 24–187; RESP 20–29; TEMP 37.9–38.2; O2SAT 92–100
[2021-01-19] MEDS: 0.9 % Sodium Chloride Flush 3 ML SYRINGE IVFLUSH ×3 (01:10→15:54)
[2021-01-19] MEDS: Metoprolol Tartrate 5 MG/5 ML VIAL IVPUSH ×2 (01:20→15:59)
[2021-01-19] MEDS: Metoprolol Tartrate 25 MG TABLET 75 MG G-TUBE (01:57)
--- NOTE | 2021-01-19 03:09 | PC.NURSE ---
Patient's HR up to 160's, Lopressor 5 mg IVP ordered / administered. HR now 102. Patient resting comfortably. will continue to monitor.
[2021-01-19 04:24] LABS: Glucose Urine UA NEG (NEG); Leukocyte Esterase Urine TRACE (NEG); Nitrite Urine NEG (NEG); PH 6.5 (5.0-8.0); Specific Gravity - Urine <= 1.005 (1.005-1.025); UACC Culture Trigger YES; Urine Blood 2+ (NEG); Urine Ketones NEG (NEG); Urine Protein NEG (NEG-TRACE)
[2021-01-19 04:26] LABS: Appearance Urine CLEAR; Color Urine STRAW
[2021-01-19 04:31] LABS: Squamous Epithelial Cell Urine 1+ /LPF
--- NOTE | 2021-01-19 04:52 | PC.NURSE ---
Patient had seventeen beat of Vtach., asymptomatic. Patient sleeping. T 100.4 , provider notifiied, Urine, blood , and sputum cultures sent, pending at present..
[2021-01-19 05:40] LABS: VBG Base Excess 13.3 mmol/L; VBG HCO3 36 mmol/L (22-26); VBG pCO2 40 mmHg; VBG pH 7.56 (7.32-7.43); VBG pO2 39 mmHg
[2021-01-19 05:41] LABS: Venous Blood Gas Refer to POC result
[2021-01-19 05:48] LABS: Basophils Percent Auto 0.1 % (0-2); Mean Corpuscular Hemoglobin 30.6 pg (27.0-33.0); Neutrophils Percent Auto 83.8 % (45-73); PLT CLUMP 1; SCAN SMEAR FLAG 1
[2021-01-19 05:50] LABS: Eosinophils Absolute Auto 0.1 X10*3/uL (0.0-0.4); Eosinophils Percent Auto 0.8 % (0-4); Hematocrit 34.4 % (37-47); Hemoglobin 11.2 g/dl (12.0-16.0); Imm Gran Abs Auto 0.23 X10*3/uL (0.00-0.03); Imm Gran Pct Auto 1.6 % (0.0-0.4); Lymphocytes Absolute Auto 0.7 X10*3/uL (1.2-4.9); Lymphocytes Percent Auto 4.8 % (20-40); Mean Corpuscular HGB Conc 32.6 g/dl (31.0-35.0); Mean Platelet Volume 11.5 fL (9.4-12.3); Monocytes Absolute Auto 1.3 X10*3/uL (0.1-1.2); Monocytes Percent Auto 8.9 % (2-11); NRBC Pct Auto 0.1 /100WBC (0.0-0.2); Platelet Count 106 X10*3/uL (160-400); Red Blood Count 3.66 X10*6/uL (4.20-5.50); Red Cell Distribution Width 17.6 % (11.0-16.0); White Blood Count 14.3 X10*3/uL (4.8-10.8)
[2021-01-19 05:52] LABS: MANUAL DIFF FLAG NO
[2021-01-19 05:54] LABS: INTERNATIONAL NORM RATIO 1.2 (0.9-1.1); Prothrombin Time 14.1 SEC (10.8-13.0)
[2021-01-19 05:58] LABS: Partial Thromboplastin Time 21.6 SEC (24.1-38.0)
[2021-01-19 06:10] LABS: B Type Natriuretic Peptide 1320 pg/mL (<100)
[2021-01-19 06:11] LABS: Alanine Aminotransferase 90 U/L (0-31); Albumin Level 2.8 g/dL (3.5-5.0); Alkaline Phosphatase 100 U/L (39-117); Aspartate Amino Transferase 56 U/L (5-31); Bilirubin Direct 0.4 mg/dL (0.0-0.5); Bilirubin Total 0.8 mg/dL (0.0-1.0); Blood Urea Nitrogen 17 mg/dL (9-16); Calcium 7.5 mg/dL (8.4-10.2); Creatinine Clr Calc Pharmacy 114.5; Estimated Glomerular Filt Rate > 60; Glucose Random 149 mg/dL (60-115); Total Protein 4.4 g/dL (6.5-8.0)
[2021-01-19 06:22] LABS: Anion Gap 11 (12-20); Carbon Dioxide 34 mmol/L (22-29); Chloride 104 mmol/L (96-108); Phosphorus 1.6 mg/dL (2.7-4.5); Potassium 3.3 mmol/L (3.3-5.1); Sodium 146 mmol/L (135-145)
[2021-01-19] MEDS: Digoxin 0.125 MG TABLET 0.25 MG PO (06:38)
[2021-01-19] MEDS: Potassium Chloride Packet 20 MEQ PACKET 40 MEQ PO (07:40)
[2021-01-19] MEDS: Chlorhexidine Gluc Oral Rinse 15 ML MOUTHWASH BUCCAL ×3 (07:41→20:52)
[2021-01-19] MEDS: Metoprolol Tartrate 50 MG TABLET 100 MG G-TUBE ×2 (07:41→20:53)
[2021-01-19] MEDS: Nystatin Powder 15 GM BOTTLE 1 APPL TOPICAL ×3 (07:41→20:54)
--- NOTE | 2021-01-19 08:40 | PM.CCPN ---
Subjective Subjective Date of Service: 01/19/21 Interval History: 75-year-old morbidly obese insulin-dependent type 2 diabetic who suffered a cardiac arrest based on progressive hypercarbic respiratory failure and that due to obesity/hypoventilation as well as sleep apnea and had a brief CPR for 10 minutes including chest compressions with rib fractures and a secondary right-sided hemo thorax had a chest tube in which drained 2 and half to 3 L initially of frankly bloody and then eventually serosanguineous fluid and remained intubated and required tracheostomy and PEG tube and subsequent to PEG tube insertion had a very large hemorrhage with the upper GI bleeding in currently does awaken but does not engage in conversation is on pressure support via the tracheostomy with 300 cc tidal volume and did develop a low-grade temperature and therefore was completely re-cultured and at this point is being fed and tolerating feedings and with persistent atrial fibrillation with at least moderately elevated heart rate is being titrated on medicine to control heart rate and we now need to begin physical therapy Critical Care Time (minutes): 45 Physical Exam Vital Signs: Vital Signs: Last Vital Signs Temp 100.4 F 01/19/21 08:00 Pulse 126 H 01/19/21 08:00 Resp 24 H 01/19/21 08:00 BP 130/76 01/19/21 08:00 Pulse Ox 99 01/19/21 08:00 Oxygen Flow Rate 2 12/26/20 15:00 Body Mass Index 39.2 Const: Other: Is awake but not really and engaging in conversation but nonfocal neurologic Rosemarie Stable minutes ventilatory requirement and stable vital signs with no neck vein distension and good bilateral carotid upstrokes and no gallops Lungs with minimal scattered bilateral rales Abdomen benign and soft with no organomegaly Objective Data Labs CBC & Chem 7: 01/19/21 05:30 01/19/21 05:30 Labs: Laboratory Results - last 24 hr 01/18/21 01/18/21 01/18/21 09:20 09:20 16:18 WBC RBC Hgb Hct MCV MCH MCHC RDW Plt Count MPV Immature Gran % (Auto) Neut % (Auto) Lymph % (Auto) [place] % (Auto) Eos % (Auto) Baso % (Auto) Lymph # (Auto) [place] # (Auto) Eos # (Auto) Baso # (Auto) Abs Immat Gran (auto) Absolute Neuts (auto) Absolute Nucleated RBC Nucleated RBC % (auto) PT INR APTT VBG pH 7.49 H VBG pCO2 49 VBG pO2 37 VBG HCO3 38 H VBG O2 Saturation 64.0 VBG Base Excess 13.2 Sodium 146 H 144 Potassium 2.4 L* 3.5 D Chloride 103 104 Carbon Dioxide 34 H 32 H Anion Gap 11 L 12 BUN 23 H 20 H Creatinine 0.62 0.58 Estim Creat Clear Calc 101.6 108.6 Estimated GFR > 60 > 60 Random Glucose 152 H 136 H Calcium 7.3 L 7.5 L Phosphorus Magnesium 1.6 Total Bilirubin 0.7 Direct Bilirubin AST 76 H ALT 120 H Alkaline Phosphatase 98 D B-Natriuretic Peptide Total Protein 4.5 L Albumin 2.9 L Urine Color Urine Appearance Urine pH Ur Specific [place] Urine Protein Urine Glucose (UA) Urine Ketones Urine Blood Urine Nitrite Ur Leukocyte Esterase Urine RBC Urine WBC Ur Squamous Epith Cells Urine Bacteria Urine Yeast 01/19/21 01/19/21 01/19/21 03:34 05:30 05:30 WBC 14.3 H RBC 3.66 L Hgb 11.2 L Hct 34.4 L MCV 94.0 MCH 30.6 MCHC 32.6 RDW 17.6 H Plt Count 106 L MPV 11.5 Immature Gran % (Auto) 1.6 H Neut % (Auto) 83.8 H Lymph % (Auto) 4.8 L [place] % (Auto) 8.9 Eos % (Auto) 0.8 Baso % (Auto) 0.1 Lymph # (Auto) 0.7 L [place] # (Auto) 1.3 H Eos # (Auto) 0.1 Baso # (Auto) 0.0 Abs Immat Gran (auto) 0.23 H Absolute Neuts (auto) 12.0 H Absolute Nucleated RBC 0.020 H Nucleated RBC % (auto) 0.1 PT 14.1 H INR 1.2 H APTT 21.6 L D VBG pH VBG pCO2 VBG pO2 VBG HCO3 VBG O2 Saturation VBG Base Excess Sodium Potassium Chloride Carbon Dioxide Anion Gap BUN Creatinine Estim Creat Clear Calc Estimated GFR Random Glucose Calcium Phosphorus Magnesium Total Bilirubin Direct Bilirubin AST ALT Alkaline Phosphatase B-Natriuretic Peptide Total Protein Albumin Urine Color STRAW Urine Appearance CLEAR Urine pH 6.5 Ur Specific [place] <= 1.005 Urine Protein NEG Urine Glucose (UA) NEG Urine Ketones NEG Urine Blood 2+ H Urine Nitrite NEG Ur Leukocyte Esterase TRACE H Urine RBC 5-9 H Urine WBC 1-4 Ur Squamous Epith Cells 1+ Urine Bacteria NONE Urine Yeast 2+ 01/19/21 01/19/21 01/19/21 05:30 05:30 05:32 WBC RBC Hgb Hct MCV MCH MCHC RDW Plt Count MPV Immature Gran % (Auto) Neut % (Auto) Lymph % (Auto) [place] % (Auto) Eos % (Auto) Baso % (Auto) Lymph # (Auto) [place] # (Auto) Eos # (Auto) Baso # (Auto) Abs Immat Gran (auto) Absolute Neuts (auto) Absolute Nucleated RBC Nucleated RBC % (auto) PT INR APTT VBG pH 7.56 H VBG pCO2 40 VBG pO2 39 VBG HCO3 36 H VBG O2 Saturation 72.0 VBG Base Excess 13.3 Sodium 146 H Potassium 3.3 Chloride 104 Carbon Dioxide 34 H Anion Gap 11 L BUN 17 H Creatinine 0.55 Estim Creat Clear Calc 114.5 Estimated GFR > 60 Random Glucose 149 H Calcium 7.5 L Phosphorus 1.6 L Magnesium Total Bilirubin 0.8 Direct Bilirubin 0.4 AST 56 H ALT 90 H Alkaline Phosphatase 100 B-Natriuretic Peptide 1320 H Total Protein 4.4 L Albumin 2.8 L Urine Color Urine Appearance Urine pH Ur Specific [place] Urine Protein Urine Glucose (UA) Urine Ketones Urine Blood Urine Nitrite Ur Leukocyte Esterase Urine RBC Urine WBC Ur Squamous Epith Cells Urine Bacteria Urine Yeast Microbiology Microbiology Results: Microbiology 01/15/21 11:04 Blood - Venous Blood Culture - Preliminary No growth after 48 hours. 01/15/21 11:04 Blood - Venous Blood Culture - Preliminary No growth after 48 hours. 01/10/21 06:11 Blood - Venous Blood Culture - Final No growth after 5 days. 01/10/21 06:11 Blood - Venous Blood Culture - Final No growth after 5 days. 01/12/21 10:41 Sputum - Suctioned Gram Stain - Final 01/12/21 10:41 Sputum - Suctioned Sputum Culture - Final 12/30/20 06:29 Blood - Venous Blood Culture - Final No growth after 5 days. 12/30/20 06:20 Blood - Venous Blood Culture - Final No growth after 5 days. 12/31/20 15:59 Sputum - Suctioned Gram Stain - Final 12/31/20 15:59 Sputum - Suctioned Sputum Culture - Final 12/30/20 06:37 Kidney - Jones Catheter Urine Culture - Final No growth. 12/27/20 17:56 Sputum - Suctioned Gram Stain - Final 12/27/20 17:56 Sputum - Suctioned Sputum Culture - Final 12/27/20 17:53 Urine clean catch - Clean Catch Midstream Urine Culture - Final No growth. Progress Note: A&P Assessment and plan (1) Hypernatremia: Status: Acute (2) Hypokalemia due to excessive renal loss of potassium: Status: Acute (3) Atrial fibrillation status post cardioversion: Status: Acute (4) Obesity: Status: Acute (5) Urinary retention: Status: Acute (6) Pulmonary aspiration: Status: Acute (7) HTN (hypertension): Status: Acute (8) CAD (coronary artery disease): Status: Acute (9) Acute and chronic respiratory failure: Status: Acute (10) Hemothorax on right: Status: Acute (11) Acute hypercapnic respiratory failure due to obstructive sleep apnea: Status: Acute (12) Sick sinus syndrome: Status: Acute (13) Acute renal failure due to tubular necrosis: Status: Acute (14) Symptomatic bradycardia: Status: Acute (15) Sleep apnea: Status: Acute (16) PAF (paroxysmal atrial fibrillation): Status: Acute (17) Cardiac arrest: Status: Acute (18) Metabolic alkalosis: Status: Acute (19) Dysphagia: Status: Acute (20) Heart failure with preserved ejection fraction: Status: Acute (21) Metabolic alkalosis: Status: Acute (22) Hyperkalemia: Status: Acute (23) Hyponatremia: Status: Acute (24) Acute hyponatremia: Status: Acute (25) CHF (congestive heart failure): Status: Acute (26) Fluid overload: Status: Acute (27) Acute diastolic CHF (congestive heart failure): Status: Acute (28) Uncontrolled hypertension: Status: Acute Assessment and Plan: At this point tracheostomy is in place she is doing well on pressure support and we need to wean to trach collar but in the process needs physical therapy and mobilization and then continued evaluation of of mental status and awaiting culture results
[2021-01-19 11:44] LABS: CDIFF Ag Negative (Negative); CDIFF Internal ctrl Dots and bkg OK (V); CDiff Toxin Negative (Negative)
[2021-01-19] MEDS: Digoxin 0.125 MG TABLET PO (17:41)
[2021-01-19] MEDS: dilTIAZem HCL 30 MG TABLET PO ×2 (17:41→20:52)
[2021-01-20] VITALS (36 sets, daily range): BP systolic 116–183; BP diastolic 27–88; PULSE 79–173; RESP 17–27; TEMP 36.7–38; O2SAT 96–98
[2021-01-20] MEDS: Metoprolol Tartrate 5 MG/5 ML VIAL IVPUSH ×2 (03:34→17:02)
[2021-01-20] MEDS: Morphine Sulfate 2 MG/ML CARTRIDGE IVPUSH (03:34)
[2021-01-20 05:30] LABS: MANUAL DIFF FLAG NO
[2021-01-20 05:32] LABS: Basophils Percent Auto 0.1 % (0-2); Eosinophils Absolute Auto 0.2 X10*3/uL (0.0-0.4); Eosinophils Percent Auto 1.2 % (0-4); Hematocrit 33.5 % (37-47); Hemoglobin 10.6 g/dl (12.0-16.0); Imm Gran Abs Auto 0.19 X10*3/uL (0.00-0.03); Imm Gran Pct Auto 1.4 % (0.0-0.4); Lymphocytes Absolute Auto 0.5 X10*3/uL (1.2-4.9); Lymphocytes Percent Auto 3.9 % (20-40); Mean Corpuscular HGB Conc 31.6 g/dl (31.0-35.0); Mean Corpuscular Hemoglobin 30.2 pg (27.0-33.0); Mean Corpuscular Volume 95.4 fL (80-98); Mean Platelet Volume 11.6 fL (9.4-12.3); Monocytes Percent Auto 7.6 % (2-11); Neutrophils Absolute Auto 11.8 X10*3/uL (2.0-8.3); Neutrophils Percent Auto 85.8 % (45-73); Platelet Count 126 X10*3/uL (160-400); Red Blood Count 3.51 X10*6/uL (4.20-5.50); Red Cell Distribution Width 17.3 % (11.0-16.0); White Blood Count 13.8 X10*3/uL (4.8-10.8)
[2021-01-20 05:38] LABS: Venous Blood Gas Refer to POC result
[2021-01-20 05:39] LABS: INTERNATIONAL NORM RATIO 1.2 (0.9-1.1); Prothrombin Time 14.5 SEC (10.8-13.0)
[2021-01-20 05:39] LABS: VBG Base Excess 10.9 mmol/L; VBG HCO3 35 mmol/L (22-26); VBG pCO2 48 mmHg; VBG pH 7.47 (7.32-7.43); VBG pO2 49 mmHg
[2021-01-20 05:43] LABS: Partial Thromboplastin Time 22.9 SEC (24.1-38.0)
[2021-01-20 06:05] LABS: Alanine Aminotransferase 62 U/L (0-31); Albumin Level 2.7 g/dL (3.5-5.0); Alkaline Phosphatase 92 U/L (39-117); Anion Gap 9 (12-20); Aspartate Amino Transferase 41 U/L (5-31); Bilirubin Direct 0.4 mg/dL (0.0-0.5); Bilirubin Total 0.8 mg/dL (0.0-1.0); Blood Urea Nitrogen 11 mg/dL (9-16); Calcium 7.8 mg/dL (8.4-10.2); Carbon Dioxide 36 mmol/L (22-29); Chloride 102 mmol/L (96-108); Creatinine Clr Calc Pharmacy 121.1; Estimated Glomerular Filt Rate > 60; Glucose Random 153 mg/dL (60-115); Magnesium 1.6 mg/dL (1.6-2.6); Phosphorus 2.3 mg/dL (2.7-4.5); Potassium 3.7 mmol/L (3.3-5.1); Sodium 143 mmol/L (135-145); Total Protein 4.3 g/dL (6.5-8.0)
[2021-01-20 06:07] LABS: B Type Natriuretic Peptide 1421 pg/mL (<100)
--- NOTE | 2021-01-20 06:30 | PC.NURSE ---
CARE ASSUMED 23:15...REMAINS CPAP 5 /PSV 15/FIO2 30% VIA TRACH...Ve 9-11 L/M..(+) AIR-LEAK AROUND CUFF...RT STATES CHRONIC SINCE TRACH INSERTION..ATRIAL FIB..HR TRENDING UPWARD OVERNIGHT..HR 140'S-150'S...AWAKE..TRACKS SPEAKER..WITHDRAWN/FLAT AFFECT...GRIMACING AND RESTLESS...MEDICATED WITH PRN LOPRESSOR 5MG IV AND MORPHINE 2 MG IV...Ve UNCHANGED...DOZING AFTERWARDS..HR 110'S-120'S
[2021-01-20] MEDS: Digoxin 0.125 MG TABLET PO (07:19)
[2021-01-20] MEDS: 0.9 % Sodium Chloride Flush 3 ML SYRINGE IVFLUSH ×4 (07:19→23:50)
[2021-01-20] MEDS: Chlorhexidine Gluc Oral Rinse 15 ML MOUTHWASH BUCCAL ×3 (07:19→20:30)
[2021-01-20] MEDS: Metoprolol Tartrate 50 MG TABLET 100 MG G-TUBE ×2 (07:20→20:30)
[2021-01-20] MEDS: dilTIAZem HCL 30 MG TABLET PO ×4 (07:20→20:30)
--- NOTE | 2021-01-20 09:54 | MHC.CLN ---
F/U PT RECEIVING JEVITY AT MAX GOAL RATE 55CC/HR WITH 240CC FREE WATER FLUSHES Q SHIFT PROVIDES 1399KCALS (24KCALS/KG BASED ON IBW), 58G PROTEIN (.98G/KG), 1822CC TOTAL WATER FROM FORMULA AND FLUSHES (31CC/KG) BASED ON IBW NSG REPORTED PT TOLERATING WELL WITH NO RESIDUALS AT MAX GOAL IVF TO BE D/C PER MD DURING ROUNDS MONITOR TOLERANCE, RESIDUALS AND LYTES FOLLOWING
[2021-01-20] MEDS: Nystatin Powder 15 GM BOTTLE 1 APPL TOPICAL ×3 (10:18→20:31)
--- NOTE | 2021-01-20 11:44 | MHC.CM.PN ---
Patient remains in ICU. Had trach placed on 01/08. Clinical updates sent to [employer]. Continue to monitor for d/c needs.
--- NOTE | 2021-01-20 19:30 | PC.NURSE ---
Assumed care at 07:00; patient alert, able to nod head and shake head to indicate affirmative and negative responses, denied pain today; encouarged to use communication boards obtained from speech and also educated regarding their use with limited success, discussed with MD and premature to order ST trupti gadielal. Patient level of responsivity fluctuated today but often able to follow commands, jacquard fixer bilateral hands weakly, to go from passive ROM to active ROM, can straighten bilateral legs to command. Patient PERRL, brisk reactivity; tracks speaker, weak cough, apparently no gag. Patient continues on vent CPAP/PSV settings, weaned from 15/5 and 30% to 12/5 and 30%; SpO2 was 96-100%, tidal volumes 350's-480's ; TE: 7-11; Trach is positional; better volumes with rolled towel under vent circuit. Patient with thin-frothy white-clear inline secretions; also having oozing cates secretions from lower edge of trach incision, slightly pink skin, MD aware and visualized, appears to be similar to yesterday's secretions, and we should continue to treat this with wound care; this was cleaned numerous times today with sterile saline and gauze, with some pinkness to the skin. Patient with dim lung bases, had coarse lung sounds to left lung carrizales that cleared over course of day. Patient with high blood pressures at times, 173/93; 183/87; MD aware; fluctuated greatly with hemodynamic meds. Patient had afib rate 140's-190's at shift change this morning, and was administered only scheduled meds at that time (lopressor, digoxin, and cardizem) with good effect, afib rate to 80's with occasional bursts up to 120's, BP maintained SBP 140's. Patient was again afib in 140's this late afternoon and was administed PRN lopressor 5 mg with good effect. Patient tolerated TF jevity at 55 cc/hour, h2O 240 Q8 hrs, minimal residuals; two BMS today both dark and tarry, aware. Buttocks reddened but blanchable; left upper inner thigh with reddened blisters; grossly edematous weeping edema to left upper extremity and to left lower extremity; discussed with MD, related to hypoalbuminemia, and no new orders at this time.
[2021-01-21] VITALS (39 sets, daily range): BP systolic 114–187; BP diastolic 47–107; PULSE 81–139; RESP 11–26; TEMP 36.2–37.3; O2SAT 95–99
[2021-01-21] MEDS: Metoprolol Tartrate 5 MG/5 ML VIAL IVPUSH ×2 (04:56→14:35)
[2021-01-21 05:22] LABS: VBG Base Excess 18.2 mmol/L; VBG HCO3 43 mmol/L (22-26); VBG pCO2 51 mmHg; VBG pH 7.53 (7.32-7.43); VBG pO2 52 mmHg
[2021-01-21 05:31] LABS: Venous Blood Gas Refer to POC result
[2021-01-21 05:42] LABS: MANUAL DIFF FLAG NO
[2021-01-21 05:49] LABS: Basophils Percent Auto 0.2 % (0-2); Eosinophils Absolute Auto 0.3 X10*3/uL (0.0-0.4); Eosinophils Percent Auto 2.3 % (0-4); Hematocrit 33.2 % (37-47); Hemoglobin 10.4 g/dl (12.0-16.0); Imm Gran Abs Auto 0.19 X10*3/uL (0.00-0.03); Imm Gran Pct Auto 1.3 % (0.0-0.4); Lymphocytes Absolute Auto 0.6 X10*3/uL (1.2-4.9); Lymphocytes Percent Auto 4.5 % (20-40); Mean Corpuscular HGB Conc 31.3 g/dl (31.0-35.0); Mean Corpuscular Hemoglobin 30.1 pg (27.0-33.0); Mean Platelet Volume 11.3 fL (9.4-12.3); Neutrophils Absolute Auto 11.9 X10*3/uL (2.0-8.3); Neutrophils Percent Auto 84.7 % (45-73); Platelet Count 172 X10*3/uL (160-400); Red Blood Count 3.46 X10*6/uL (4.20-5.50); Red Cell Distribution Width 17.4 % (11.0-16.0); White Blood Count 14.1 X10*3/uL (4.8-10.8)
[2021-01-21 06:10] LABS: Alanine Aminotransferase 55 U/L (0-31); Albumin Level 2.8 g/dL (3.5-5.0); Alkaline Phosphatase 93 U/L (39-117); Anion Gap 12 (12-20); Aspartate Amino Transferase 44 U/L (5-31); Bilirubin Direct 0.4 mg/dL (0.0-0.5); Bilirubin Total 0.6 mg/dL (0.0-1.0); Blood Urea Nitrogen 11 mg/dL (9-16); Calcium 7.9 mg/dL (8.4-10.2); Carbon Dioxide 35 mmol/L (22-29); Chloride 101 mmol/L (96-108); Creatinine Clr Calc Pharmacy 131.2; Estimated Glomerular Filt Rate > 60; Glucose Random 130 mg/dL (60-115); Magnesium 1.5 mg/dL (1.6-2.6); Phosphorus 3.2 mg/dL (2.7-4.5); Potassium 3.5 mmol/L (3.3-5.1); Sodium 144 mmol/L (135-145); Total Protein 4.7 g/dL (6.5-8.0)
[2021-01-21 06:13] LABS: B Type Natriuretic Peptide 1075 pg/mL (<100)
[2021-01-21 06:15] LABS: INTERNATIONAL NORM RATIO 1.1 (0.9-1.1); Prothrombin Time 13.4 SEC (10.8-13.0)
[2021-01-21 06:18] LABS: Partial Thromboplastin Time 25.8 SEC (24.1-38.0)
[2021-01-21] MEDS: Metoprolol Tartrate 50 MG TABLET 100 MG G-TUBE ×2 (07:33→20:33)
[2021-01-21] MEDS: Potassium Chloride Packet 20 MEQ PACKET PO (07:33)
[2021-01-21] MEDS: Chlorhexidine Gluc Oral Rinse 15 ML MOUTHWASH BUCCAL ×3 (07:33→20:30)
[2021-01-21] MEDS: Digoxin 0.125 MG TABLET PO (07:34)
[2021-01-21] MEDS: dilTIAZem HCL 30 MG TABLET PO ×4 (07:34→20:30)
[2021-01-21] MEDS: 0.9 % Sodium Chloride Flush 3 ML SYRINGE IVFLUSH ×3 (07:34→23:48)
[2021-01-21] MEDS: Magnesium Sulfate/H2O 2 GM/50 ML PIGGYBACK IV (07:34)
[2021-01-21] MEDS: Nystatin Powder 15 GM BOTTLE 1 APPL TOPICAL ×3 (07:38→20:33)
[2021-01-21] MEDS: Morphine Sulfate 2 MG/ML CARTRIDGE 1 MG IVPUSH (08:28)
--- NOTE | 2021-01-21 08:40 | PM.EVENT ---
Event Note Date of Service: 01/21/21 Event Note: Seems a little more alert Tolerating tube feeds Tracheostomy site clean I removed all her sutures Continue current care as per ICU
--- NOTE | 2021-01-21 09:01 | PC.NURSE ---
Trach sutures removed by Dr Castro this AM - Patient on PS 12/5 30%; moderate trach leak - Hydraulic Tester aware - Tidal volumes down to 180-220 - MD and RT notified and at bedside. Patient placed on 28% Trach collar per MD. Trach care provided, stoma cleansed, new ties placed, inner cannula cleansed - new stage II to trach site - dressing applied, MD aware, & pictures obtained. 98.8 temp, HR 90, 26 RR, 158/100, 97%; breathing even, slightly labored. Patient grimicing with abdomen palpation and shakes head yes for pain - Morphine 1mg IVP administered per EMAR.
--- NOTE | 2021-01-21 11:50 | HO.MIDLINE ---
PICC Line Insertion MIDLINE INSERTION Diagnosis: RESPIRATORY FAILURE Indication: NEEDS IV ACCESS Pertinent Labs: REVIEWED Technique: Using sterile technique including cap and mask, glove and drape, the LEFT arm was prepped and draped in the usual sterile fashion of full barrier technique with CHG. Using ultrasound guidance, CEPHALIC vein access was obtained ON FIRST ATTEMPT BY THIS RN; x1 UNSUCCESSFUL ATTEMPT BY PREVIOUS RN SO TOTAL x2 ATTEMPTS. A (20G x 8CM), SINGLE LUMEN, NON-PASV MIDLINE was positioned. The procedure was performed in ICU 252. Ultrasound was used to document vein patency and for needle entry. A formal ultrasound picture was recorded. V[employer] has released the line for use and it is currently dressed with a StatLock, Tegaderm, and CHG disc. Verification has been performed for blood return and line patency. Arm Circumference: 34.5 CM Equipment: [employer] POWERGLIDE PRO MIDLINE Catheter Type: SINGLE LUMEN, NON-PASV, (20G x 8CM) Lot #: [id number]
[2021-01-21] MEDS: Morphine Sulfate 2 MG/ML CARTRIDGE IVPUSH (12:22)
--- NOTE | 2021-01-21 14:23 | MHC.CM.PN ---
Pt continues in ICU making slow progress. Midline inserted today after negative culture results returned. Clinical updates remitted to [facility] who is following pt for placement. No definite plans for transfer/d/c at this time. CM to follow
[2021-01-21] MEDS: Ampicillin Sodium/Sulbactam Na 1.5 GM in 0.9 % Sodium Chloride 100 ML IV (14:28)
--- NOTE | 2021-01-21 15:21 | P.PNCC_ITS ---
Subjective Subjective Date of Service: 01/21/21 Interval History: 75-year-old female with the morbid obesity and probable obesity/hypoventilation and sleep apnea who presented with some progressive acute on chronic hypercarbic and hypoxic respiratory failure and leading up to progressive bradycardia and cardiac arrest followed by 10 minutes CPR with rib fractures resulting in large hemothorax treated with chest tube placement and because she failed to wean from the ventilator operative tracheostomy was placed as well as PEG tube and that led to a upper GI hemorrhage the hypotension r equiring large transfusion volume currently recovered from all that tolerating feedings on a trach collar it at this point with and maintaining oxygen saturations and we need to do that because on any form of positive pressure that was very significant air volume leak and this is unfortunately a fenestrated tracheostomy tube but her mental status is repairing she she now has cognitive function blood pressures remain elevated and she is currently in atrial fibrillation with a moderate increase in heart rate despite medications but off full anticoagulation due to the recent hemorrhage but she has also got significant hepatic steatosis/cirrhosis and has had a low-grade temperature for a few days which seems diminished today but persistent white count and no left shift but had abdominal pain and the preliminary reading of moderate colony count of g positive coccus of course raising concerns for enterococcus as well as probable candidal urinary tract infection so we stopped the Jones catheter and will use an external device instead give 1 prophylactic dose of caspofungin as well as Unasyn while we await the final species and sensitivities covering her only because of the complaint of abdominal pain in a lady with probable cirrhosis who also does have a small volume ascites that unfortunately used is too small to sample safely so we will approach it is low which might be a form of a spontaneous an infectious peritonitis because there is no other particular source at this point Gunnar Gunnar cultures from multi issues apparently are negative and today we got a midline in and we removed the 3-week-old central line Persistent hypertension in the face of the atrial fibrillation then somebody who does have diastolic heart failure background led me to initiate losartan small dose as well as spironolactone because she is persistently hypokalemic anyway and this may reflect some degree of hyper aldosteronism Critical Care Time (minutes): 35 Physical Exam Vital Signs: Vital Signs: Last Vital Signs Temp 98.7 F 01/21/21 14:00 Pulse 99 01/21/21 15:00 Resp 20 01/21/21 15:00 BP 182/77 H 01/21/21 15:00 Pulse Ox 98 01/21/21 15:00 Oxygen Flow Rate 2 12/26/20 15:00 Body Mass Index 39.2 Const: Other: Awake and more appropriately responsive and nonfocal No gallops no apparent neck vein distention and she has good bilateral carotid upstrokes Abdomen remained soft and was nontender the abdominal flat plate showed no free air no ileus pattern and the right upper quadrant ultrasound showed some gallbladder distention but no wall thickening no fluid no stones but a liver pattern of steatosis Lungs with no adventitious sounds no significant diaphragmatic effort Objective Data Labs CBC & Chem 7: 01/21/21 05:13 01/21/21 05:13 Labs: Laboratory Results - last 24 hr 01/21/21 01/21/21 01/21/21 05:13 05:13 05:13 WBC 14.1 H RBC 3.46 L Hgb 10.4 L Hct 33.2 L MCV 96.0 MCH 30.1 MCHC 31.3 RDW 17.4 H Plt Count 172 D MPV 11.3 Immature Gran % (Auto) 1.3 H Neut % (Auto) 84.7 H Lymph % (Auto) 4.5 L [place] % (Auto) 7.0 Eos % (Auto) 2.3 Baso % (Auto) 0.2 Lymph # (Auto) 0.6 L [place] # (Auto) 1.0 Eos # (Auto) 0.3 Baso # (Auto) 0.0 Abs Immat Gran (auto) 0.19 H Absolute Neuts (auto) 11.9 H Absolute Nucleated RBC 0.000 Nucleated RBC % (auto) 0.0 PT 13.4 H INR 1.1 APTT 25.8 VBG pH VBG pCO2 VBG pO2 VBG HCO3 VBG O2 Saturation VBG Base Excess Sodium 144 Potassium 3.5 Chloride 101 Carbon Dioxide 35 H Anion Gap 12 BUN 11 Creatinine 0.48 L Estim Creat Clear Calc 131.2 Estimated GFR > 60 Random Glucose 130 H Calcium 7.9 L Phosphorus 3.2 Magnesium 1.5 L Total Bilirubin 0.6 Direct Bilirubin 0.4 AST 44 H ALT 55 H Alkaline Phosphatase 93 B-Natriuretic Peptide Total Protein 4.7 L Albumin 2.8 L 01/21/21 01/21/21 05:13 05:14 WBC RBC Hgb Hct MCV MCH MCHC RDW Plt Count MPV Immature Gran % (Auto) Neut % (Auto) Lymph % (Auto) [place] % (Auto) Eos % (Auto) Baso % (Auto) Lymph # (Auto) [place] # (Auto) Eos # (Auto) Baso # (Auto) Abs Immat Gran (auto) Absolute Neuts (auto) Absolute Nucleated RBC Nucleated RBC % (auto) PT INR APTT VBG pH 7.53 H VBG pCO2 51 VBG pO2 52 VBG HCO3 43 H VBG O2 Saturation 86.0 VBG Base Excess 18.2 Sodium Potassium Chloride Carbon Dioxide Anion Gap BUN Creatinine Estim Creat Clear Calc Estimated GFR Random Glucose Calcium Phosphorus Magnesium Total Bilirubin Direct Bilirubin AST ALT Alkaline Phosphatase B-Natriuretic Peptide 1075 H Total Protein Albumin Microbiology Microbiology Results: Microbiology 01/19/21 Unknown Urine [place] Urine Culture - Preliminary Gram positive cocci Yeast 01/19/21 03:35 Sputum - Suctioned Gram Stain - Final 01/19/21 03:35 Sputum - Suctioned Sputum Culture - Final 01/19/21 04:06 Blood - Venous Blood Culture - Preliminary No growth after 48 hours. 01/19/21 04:02 Blood - Venous Blood Culture - Preliminary No growth after 48 hours. 01/15/21 11:04 Blood - Venous Blood Culture - Final No growth after 5 days. 01/15/21 11:04 Blood - Venous Blood Culture - Final No growth after 5 days. 01/10/21 06:11 Blood - Venous Blood Culture - Final No growth after 5 days. 01/10/21 06:11 Blood - Venous Blood Culture - Final No growth after 5 days. 01/12/21 10:41 Sputum - Suctioned Gram Stain - Final 01/12/21 10:41 Sputum - Suctioned Sputum Culture - Final 12/30/20 06:29 Blood - Venous Blood Culture - Final No growth after 5 days. 12/30/20 06:20 Blood - Venous Blood Culture - Final No growth after 5 days. 12/31/20 15:59 Sputum - Suctioned Gram Stain - Final 12/31/20 15:59 Sputum - Suctioned Sputum Culture - Final 12/30/20 06:37 Kidney - Jones Catheter Urine Culture - Final No growth. 12/27/20 17:56 Sputum - Suctioned Gram Stain - Final 12/27/20 17:56 Sputum - Suctioned Sputum Culture - Final 12/27/20 17:53 Urine clean catch - Clean Catch Midstream Urine Culture - Final No growth. Progress Note: A&P Assessment and plan (1) Hypernatremia: Status: Acute (2) Hypokalemia due to excessive renal loss of potassium: Status: Acute (3) Atrial fibrillation status post cardioversion: Status: Acute (4) Obesity: Status: Acute (5) Urinary retention: Status: Acute (6) Pulmonary aspiration: Status: Acute (7) HTN (hypertension): Status: Acute (8) CAD (coronary artery disease): Status: Acute (9) Acute and chronic respiratory failure: Status: Acute (10) Hemothorax on right: Status: Acute (11) Acute hypercapnic respiratory failure due to obstructive sleep apnea: Status: Acute (12) Acute renal failure due to tubular necrosis: Status: Acute (13) Sick sinus syndrome: Status: Acute (14) Symptomatic bradycardia: Status: Acute (15) Sleep apnea: Status: Acute (16) PAF (paroxysmal atrial fibrillation): Status: Acute (17) Cardiac arrest: Status: Acute (18) Metabolic alkalosis: Status: Acute (19) Dysphagia: Status: Acute (20) Heart failure with preserved ejection fraction: Status: Acute (21) Metabolic alkalosis: Status: Acute (22) Hyperkalemia: Status: Acute (23) Hyponatremia: Status: Acute (24) Acute hyponatremia: Status: Acute (25) CHF (congestive heart failure): Status: Acute (26) Fluid overload: Status: Acute (27) Acute diastolic CHF (congestive heart failure): Status: Acute (28) Uncontrolled hypertension: Status: Acute Assessment and Plan: One prophylactic dose of both caspofungin and 1 dose of Unasyn pending the final speciation from the urine and the Jones will be removed and will initiate antihypertensive therapy and the central line finally now replaced with a midline Quality Stroke Does the patient have a stroke diagnosis?: No VTE Prior VTE?: Yes VTE Risk Level:: Medical - moderate - high VTE Device Contraindication: N/A - Device Ordered VTE Drug Contraindication: Treatment Not Tolerated
[2021-01-21] MEDS: Sucralfate Oral Suspension 1 GM/10 ML ORAL.SUSP 0.5 GM PO ×2 (15:32→20:33)
[2021-01-21] MEDS: Spironolactone 25 MG TABLET 12.5 MG PO (15:33)
[2021-01-21] MEDS: Losartan Potassium 25 MG TABLET PO (15:33)
--- NOTE | 2021-01-21 16:26 | PC.NURSE ---
S/E Afebrile, WBC 14.1 Non-verbal, arousable to name, shakes head yes & no Posiitve pain response, positive cough & gag Afib HR 80-120's, no ectopy Continued on Lopressor 100 PO BID, Lopressor 5mg IVP x1 administered BP 185/78 - Started on scheduled Aldactone & Losartan - BP down to 167/62 L TLC Subclavian removed & Midline placed to LAC by IR 2+ pitting edema upper & lower extremities, weeping Switched from PS to 28% trach collar @ 0830 - sPO2 95-99% Lung sounds dim bilat lower lobes, breathing even/nonlabored Moderate amount of clear trach secretions - HOB maintaining >30 degrees Trach care provided twice throughout shift Tolerating tube feeds & water flushes; residuals 5-10cc No BM; Abdomen soft, round, positive BS throughout Abdomen tender to touch near PEG - morphine PRN administered w/ good effect Abdominal U/S & KUB ordered & obtained - see reports Plan for HIDA scan tomorrow per MD Jones removed @ 1330 - purawick placed - DTV by 2129 UC positive for gram positive cocci - Ampicillin & Caspofungin x1 doses administered Extensive fungal to groin/abdominal folds - Nystatin & Interdry placed New stage II pressure injury x2 to trach area - Wound nurse at bedside - Xeroform & gauze applied Stage I pressure injury to bilateral buttocks - barrier cream applied multiple times w/ repos Repo q2hr, air loss bed attachment & prevlon system in place Bathed, hair washed, oral care provided Family updated
[2021-01-21] MEDS: Caspofungin Acetate 70 MG in 0.9 % Sodium Chloride 250 ML 250 MG IV (16:48)
[2021-01-22] VITALS (31 sets, daily range): BP systolic 111–173; BP diastolic 53–88; PULSE 82–172; RESP 18–32; TEMP 36.3–37.2; O2SAT 90–95
[2021-01-22 05:29] LABS: VBG Base Excess 17.4 mmol/L; VBG HCO3 43 mmol/L (22-26); VBG pCO2 58 mmHg; VBG pH 7.48 (7.32-7.43); VBG pO2 33 mmHg
[2021-01-22 05:30] LABS: Venous Blood Gas Refer to POC result
[2021-01-22 05:32] LABS: Basophils Absolute Auto 0.1 X10*3/uL (0.0-0.2); Basophils Percent Auto 0.2 % (0-2); Eosinophils Percent Auto 0.1 % (0-4); Hematocrit 34.1 % (37-47); Hemoglobin 10.6 g/dl (12.0-16.0); Imm Gran Abs Auto 0.31 X10*3/uL (0.00-0.03); Imm Gran Pct Auto 1.3 % (0.0-0.4); Lymphocytes Absolute Auto 0.4 X10*3/uL (1.2-4.9); Lymphocytes Percent Auto 1.8 % (20-40); MANUAL DIFF FLAG SCAN; Mean Corpuscular HGB Conc 31.1 g/dl (31.0-35.0); Mean Corpuscular Hemoglobin 30.3 pg (27.0-33.0); Mean Corpuscular Volume 97.4 fL (80-98); Mean Platelet Volume 10.7 fL (9.4-12.3); Monocytes Absolute Auto 1.3 X10*3/uL (0.1-1.2); Monocytes Percent Auto 5.6 % (2-11); Neutrophils Absolute Auto 21.8 X10*3/uL (2.0-8.3); Platelet Count 217 X10*3/uL (160-400); Red Cell Distribution Width 17.3 % (11.0-16.0); SCAN SMEAR FLAG 1; White Blood Count 23.9 X10*3/uL (4.8-10.8)
[2021-01-22 05:39] LABS: INTERNATIONAL NORM RATIO 1.2 (0.9-1.1); Prothrombin Time 14.4 SEC (10.8-13.0)
[2021-01-22 05:42] LABS: Partial Thromboplastin Time 25.4 SEC (24.1-38.0)
[2021-01-22 05:52] LABS: SLIDE REVIEW VERIFIED
[2021-01-22 05:57] LABS: Alanine Aminotransferase 50 U/L (0-31); Albumin Level 2.9 g/dL (3.5-5.0); Alkaline Phosphatase 101 U/L (39-117); Anion Gap 14 (12-20); Aspartate Amino Transferase 40 U/L (5-31); Bilirubin Direct 0.6 mg/dL (0.0-0.5); Blood Urea Nitrogen 10 mg/dL (9-16); Carbon Dioxide 34 mmol/L (22-29); Chloride 99 mmol/L (96-108); Creatinine Clr Calc Pharmacy 123.5; Estimated Glomerular Filt Rate > 60; Glucose Random 143 mg/dL (60-115); Magnesium 1.6 mg/dL (1.6-2.6); Phosphorus 3.5 mg/dL (2.7-4.5); Potassium 3.7 mmol/L (3.3-5.1); Sodium 143 mmol/L (135-145); Total Protein 4.9 g/dL (6.5-8.0)
[2021-01-22 05:58] LABS: B Type Natriuretic Peptide 1324 pg/mL (<100)
[2021-01-22] MEDS: Ampicillin Sodium/Sulbactam Na 1.5 GM in 0.9 % Sodium Chloride 100 ML IV (06:40)
[2021-01-22] MEDS: Metoprolol Tartrate 5 MG/5 ML VIAL IVPUSH (06:58)
[2021-01-22] MEDS: Sucralfate Oral Suspension 1 GM/10 ML ORAL.SUSP 0.5 GM PO ×3 (06:58→20:03)
[2021-01-22] MEDS: Morphine Sulfate 2 MG/ML CARTRIDGE 1 MG IVPUSH (07:03)
[2021-01-22] MEDS: Chlorhexidine Gluc Oral Rinse 15 ML MOUTHWASH BUCCAL ×3 (07:54→20:03)
[2021-01-22] MEDS: dilTIAZem HCL 30 MG TABLET PO ×3 (07:55→20:03)
[2021-01-22] MEDS: Losartan Potassium 25 MG TABLET PO (07:56)
[2021-01-22] MEDS: Spironolactone 25 MG TABLET 12.5 MG PO (07:56)
[2021-01-22] MEDS: Digoxin 0.125 MG TABLET PO (07:56)
[2021-01-22] MEDS: Nystatin Powder 15 GM BOTTLE 1 APPL TOPICAL ×3 (07:57→20:32)
[2021-01-22] MEDS: 0.9 % Sodium Chloride Flush 3 ML SYRINGE IVFLUSH ×3 (07:57→23:14)
[2021-01-22] MEDS: Metoprolol Tartrate 50 MG TABLET 100 MG G-TUBE ×2 (07:57→20:04)
[2021-01-22] MEDS: Potassium Chloride Packet 20 MEQ PACKET PO (08:00)
[2021-01-22] MEDS: Magnesium Sulfate/D5W 1 GM/100 ML PIGGYBACK IV (08:01)
--- NOTE | 2021-01-22 11:32 | MHC.CLN ---
F/U PT RECEIVING JEVITY AT MAX GOAL RATE 55CC/HR WITH 240CC FREE WATER FLUSHES Q SHIFT PROVIDES 1399KCALS (24KCALS/KG BASED ON IBW), 58G PROTEIN (.98G/KG), 1822CC TOTAL WATER FROM FORMULA AND FLUSHES (31CC/KG) BASED ON IBW NSG REPORTED PT TOLERATING WELL WITH NO RESIDUALS AT MAX GOAL PT WITH INCREASED PROTEIN NEEDS R/T PRESSURE INJURIES RECOMMEND ADDING PROSOURCE Q DAY VIA PEG TUBE TO PROVIDE AN ADDITIONAL 60KCALS, 73G TOTAL PROTEIN (1.2G/KG) MONITOR TOLERANCE, RESIDUALS AND LYTES FOLLOWING
--- NOTE | 2021-01-22 11:42 | PC.NURSE ---
Patient had 18BVT on monitor - patient assessed - patient sleeping at time, awoke and is asymptomatic. K 3.7 - Pot Chld 20meq administered this AM- Mag 1.6 - 2g Mag IV administered this AM. Dr Eng notified and okay to go to CT scan & Nuc Med at this time per MD. Plan for HIDA scan to take up to two hours - okay per Dr Eng to lay flat for that long. Patient being escorted to imaging by charge nurse Akila Chiang
[2021-01-22] MEDS: Furosemide 20 MG/2 ML VIAL IVPUSH (12:51)
--- NOTE | 2021-01-22 13:38 | P.CNID_ITS ---
History of Present Illness Data of Consult Service Date: 01/22/21 Requesting physician: Joshua Franklin Primary Care Provider: Unknown Physician HPI Reason for consult: leukocytosis She presents to hospital with shortness of breath. She has respiratory failure and received trach and peg. She has CPR and hemothorax,3 liters blood. She had trouble weaning from vent and now is trach and peg. She recieved Lovenox and hemorrhage from stomach with loss of 2 liters blood. She has trach collar to overcome difficulties venting with fenestrated trach. She now has new midline and subclavian removed. She has had abdominal discomfort since yesterday and has had ascites. She has had Jones catheter over a month and now has enterococcus and lalita from urine CXR no changes Temperature 100.8 overnight and WBC elevated to 23,000 Jones is out and there is no diarrhea CT shows some distended gallbladder. 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 Sleep apnea Throat cancer Family History Family history: reviewed and not pertinent Surgical History Surgical History Atrial fibrillation status post cardioversion Social History Social History Household Members: Children Housing: House Do you presently have visiting nurse or other home services: Yes Alcohol intake: current Alcohol intake frequency: does not drink Alcohol type: beer and hard liquor Years Smoked: 41 yrs Use of substances other than those prescribed or required for medical reasons: No Currently Displaying Signs/Symptoms of Drug Intoxication Withdrawal: No Have you been hit, kicked, punched, or otherwise hurt by someone within the past year? If so, by whom?: No Do you feel safe in your current relationship?: No Current Relationship Is there a partner from a previous relationship who is making you feel unsafe now?: No Are you made to feel afraid or neglected: No Are you DNR?: No Advance Directives: Yes Advance Directives Information Provided: No Advance Directives on File: Yes Advance Directives Date on File: 01/13/21 Do you have thoughts of harming others: None Do you have a plan to hurt others: No Plan Recently lost weight without trying: No Eating poorly because of decreased appetite: No Nutrition Risks: No Nutritional Risk service: No Current occupational status: disabled Meds Allergies Allergy/AdvReac Type Severity Reaction Status Date / Time amiodarone Allergy Severe Difficulty Verified 01/03/21 21:43 Breathing SEASONAL ALLERGIES Allergy Unknown SNEEZING Uncoded 04/23/20 15:17 RUNNY NOSE Active Medications: Current Medications Generic Name Dose Route Start Last Admin Trade Name Freq PRN Reason Stop Dose Admin Chlorhexidine Gluconate 15 ml 01/05/21 15:00 01/22/21 07:54 Chlorhexidine Gluc Oral Rinse 15 Ml Mouthwash BUCCAL 15 ml TID DEE Administration Digoxin 0.125 mg 01/19/21 17:30 01/22/21 07:56 Digoxin 0.125 Mg Tablet PO 0.125 mg DAILY DEE Administration Diltiazem HCl 30 mg 01/19/21 17:30 01/22/21 12:40 Diltiazem Hcl 30 Mg Tablet PO Not Given QID DEE Protocol Losartan Potassium 25 mg 01/21/21 15:30 01/22/21 07:56 Losartan Potassium 25 Mg Tablet PO 25 mg DAILY DEE Administration Protocol Metoprolol Tartrate 100 mg 01/19/21 09:00 01/22/21 07:57 Metoprolol Tartrate 50 Mg Tablet G-TUBE 100 mg BID DEE Administration Protocol Metoprolol Tartrate 5 mg 01/19/21 15:52 01/22/21 06:58 Metoprolol Tartrate 5 Mg/5 Ml Vial IVPUSH 5 mg Q6H PRN Administration Heart Rate >100 Morphine Sulfate 1 mg 01/21/21 15:50 01/22/21 07:03 Morphine Sulfate 2 Mg/Ml Cartridge IVPUSH 1 mg Q4H PRN Administration Pain, Moderate (Pain Scale 4-6 Nystatin 1 appl 01/09/21 17:00 01/22/21 07:57 Nystatin Powder 15 Gm Bottle TOPICAL 1 appl TID DEE Administration Protocol Sodium Chloride 3 ml 12/14/20 00:00 01/22/21 07:57 0.9 % Sodium Chloride Flush 3 Ml Syringe IVFLUSH 3 ml QSHIFT DEE Administration Spironolactone 12.5 mg 01/21/21 15:30 01/22/21 07:56 Spironolactone 25 Mg Tablet PO 12.5 mg DAILY [facility] Administration Protocol Sucralfate 0.5 gm 01/21/21 16:30 01/22/21 12:39 Sucralfate Oral Suspension 1 Gm/10 Ml Oral.Susp PO Not Given QIDACHS [facility] Home Medications Medication Instructions Recorded Confirmed Last Taken Type lorazepam 1 tab PO BID PRN 11/18/20 12/13/20 Unknown History omeprazole 1 cap PO BID 11/18/20 12/13/20 Unknown History simvastatin 1 tab PO DAILY 11/18/20 12/13/20 Unknown History Physical Exam Vital Signs: Vital Signs: Last Vital Signs Temp 98.9 F 01/22/21 11:00 Pulse 104 H 01/22/21 12:54 Resp 20 01/22/21 12:54 BP 130/56 L 01/22/21 12:54 Pulse Ox 93 01/22/21 12:54 Oxygen Flow Rate 2 12/26/20 15:00 Body Mass Index 39.2 Const: General: cooperative and confusion Orientation/consciousness: confusion HENMT: Head: Yes normal to inspection Mouth: Normal oral and palatal mucosa present Resp: Effort & Inspection: normal respiratory effort Cardio: Rate: regular rate Rhythm: regular rhythm GI: Palpation (GI): Soft to palpation and nontender Skin: General skin exam: no rashes or lesions noted Neuro: General: confusion Extrem: General: Yes normal to inspection Results Labs CBC & Chem 7: 01/22/21 05:15 01/22/21 05:15 Labs: Short CBC 01/22/21 Range/Units 05:15 WBC 23.9 H (4.8-10.8) X10*3/uL Hgb 10.6 L (12.0-16.0) g/dl Hct 34.1 L (37-47) % Plt Count 217 D (160-400) X10*3/uL BMP 01/22/21 05:15 Sodium 143 Potassium 3.7 Chloride 99 Carbon Dioxide 34 H BUN 10 Creatinine 0.51 Calcium 8.0 L Liver Function 01/22/21 Range/Units 05:15 Total Bilirubin 1.0 (0.0-1.0) mg/dL Direct Bilirubin 0.6 H (0.0-0.5) mg/dL AST 40 H (5-31) U/L ALT 50 H (0-31) U/L Alkaline Phosphatase 101 (39-117) U/L Albumin 2.9 L (3.5-5.0) g/dL Microbiology Microbiology Results: Microbiology 01/19/21 Unknown Urine [place] Urine Culture - Final Gram positive cocci Yeast 01/19/21 03:35 Sputum - Suctioned Gram Stain - Final 01/19/21 03:35 Sputum - Suctioned Sputum Culture - Final 01/19/21 04:06 Blood - Venous Blood Culture - Preliminary No growth after 48 hours. 01/19/21 04:02 Blood - Venous Blood Culture - Preliminary No growth after 48 hours. 01/15/21 11:04 Blood - Venous Blood Culture - Final No growth after 5 days. 01/15/21 11:04 Blood - Venous Blood Culture - Final No growth after 5 days. 01/10/21 06:11 Blood - Venous Blood Culture - Final No growth after 5 days. 01/10/21 06:11 Blood - Venous Blood Culture - Final No growth after 5 days. 01/12/21 10:41 Sputum - Suctioned Gram Stain - Final 01/12/21 10:41 Sputum - Suctioned Sputum Culture - Final 12/30/20 06:29 Blood - Venous Blood Culture - Final No growth after 5 days. 12/30/20 06:20 Blood - Venous Blood Culture - Final No growth after 5 days. 12/31/20 15:59 Sputum - Suctioned Gram Stain - Final 12/31/20 15:59 Sputum - Suctioned Sputum Culture - Final 12/30/20 06:37 Kidney - Jones Catheter Urine Culture - Final No growth. 12/27/20 17:56 Sputum - Suctioned Gram Stain - Final 12/27/20 17:56 Sputum - Suctioned Sputum Culture - Final 12/27/20 17:53 Urine clean catch - Clean Catch Midstream Urine Culture - Final No growth. Assessment and Plan (1) Urinary retention: Status: Acute Would cover possible urine infection with Diflucan 200 mg daily IV and wait on blood culture (2) Pulmonary aspiration: Status: Acute concern over ongoing lung as well as bacteremia possible (3) Bacteriuria: Status: Acute Vancomycin and Merepenem,observe WBC This will also cover abdomen as distended gallbladder bears watching
[2021-01-22] MEDS: Fluconazole in NaCl,Iso-Osm 200 MG/100 ML PIGGYBACK 100 MG IV (14:05)
--- NOTE | 2021-01-22 17:24 | P.PNCC_ITS ---
Subjective Subjective Date of Service: 01/22/21 Interval History: 75-year-old female with a complicated hospital history but ultimately due to acute on chronic hypercarbic and hypoxic respiratory failure she progressively became weaker with lost mental status evolving into a arrest requiring 10 minutes of CPR with rib fractures very large right-sided hemo thorax treated with chest tube intubation and because she failed to wean from the ventilator came to tracheostomy and PEG tube placement and she subsequently had a very large upper GI hemorrhage and became hypotensive now is a resolved ATN and resolving respiratory insufficiency on trach collar but had low-grade temperatures a rising white count diaphoresis and abdominal pain and because of the cirrhosis/steatosis of her liver and the presence of ascites were covering for possible spontaneous bacterial peritonitis and we removed a 1-month-old Jones catheter growing combination of Pat and Gram-positive possibly Enterococcus and were covering her from that as a source and is a question in especially now with a nonvisualized gallbladder which is dilated that she might have a degree of acalculous cholecystitis but it seems at least by liver function tests numbers to be resolving Critical Care Time (minutes): 60 Physical Exam Vital Signs: Vital Signs: Last Vital Signs Temp 98.1 F 01/22/21 15:56 Pulse 120 H 01/22/21 15:56 Resp 24 H 01/22/21 15:56 BP 173/88 H 01/22/21 15:56 Pulse Ox 90 L 01/22/21 15:56 Oxygen Flow Rate 2 12/26/20 15:00 Body Mass Index 39.2 Const: Other: She has slow improvement in cognitive function and is nonfocal neurologically Atrial fibrillation with controlled ventricular response and all vital signs are stable afebrile and on trach collar stable oxygen saturation 95% respiratory rate remains in the low 20s Cardiac exam with no neck vein distension and good bilateral carotid upstrokes a nd no gallops Abdomen is benign it is soft does not appear to be tender to the touch and there is no guarding and no organomegaly and a KUB failed to show free air or an ileus pattern Objective Data Labs CBC & Chem 7: 01/23/21 05:54 01/23/21 05:20 Labs: Laboratory Results - last 24 hr 01/22/21 01/22/21 01/22/21 05:15 05:15 05:15 WBC 23.9 H RBC 3.50 L Hgb 10.6 L Hct 34.1 L MCV 97.4 MCH 30.3 MCHC 31.1 RDW 17.3 H Plt Count 217 D MPV 10.7 Immature Gran % (Auto) 1.3 H Neut % (Auto) 91.0 H Lymph % (Auto) 1.8 L [place] % (Auto) 5.6 Eos % (Auto) 0.1 Baso % (Auto) 0.2 Lymph # (Auto) 0.4 L [place] # (Auto) 1.3 H Eos # (Auto) 0.0 Baso # (Auto) 0.1 Abs Immat Gran (auto) 0.31 H Absolute Neuts (auto) 21.8 H Absolute Nucleated RBC 0.000 Nucleated RBC % (auto) 0.0 Smear Tech's Comments VERIFIED PT 14.4 H INR 1.2 H APTT 25.4 VBG pH VBG pCO2 VBG pO2 VBG HCO3 VBG O2 Saturation VBG Base Excess Sodium 143 Potassium 3.7 Chloride 99 Carbon Dioxide 34 H Anion Gap 14 BUN 10 Creatinine 0.51 Estim Creat Clear Calc 123.5 Estimated GFR > 60 Random Glucose 143 H Calcium 8.0 L Phosphorus 3.5 Magnesium 1.6 Total Bilirubin 1.0 Direct Bilirubin 0.6 H AST 40 H ALT 50 H Alkaline Phosphatase 101 B-Natriuretic Peptide Total Protein 4.9 L Albumin 2.9 L 01/22/21 01/22/21 05:15 05:22 WBC RBC Hgb Hct MCV MCH MCHC RDW Plt Count MPV Immature Gran % (Auto) Neut % (Auto) Lymph % (Auto) [place] % (Auto) Eos % (Auto) Baso % (Auto) Lymph # (Auto) [place] # (Auto) Eos # (Auto) Baso # (Auto) Abs Immat Gran (auto) Absolute Neuts (auto) Absolute Nucleated RBC Nucleated RBC % (auto) Smear Tech's Comments PT INR APTT VBG pH 7.48 H VBG pCO2 58 VBG pO2 33 VBG HCO3 43 H VBG O2 Saturation 57.0 VBG Base Excess 17.4 Sodium Potassium Chloride Carbon Dioxide Anion Gap BUN Creatinine Estim Creat Clear Calc Estimated GFR Random Glucose Calcium Phosphorus Magnesium Total Bilirubin Direct Bilirubin AST ALT Alkaline Phosphatase B-Natriuretic Peptide 1324 H Total Protein Albumin Microbiology Microbiology Results: Microbiology 01/19/21 Unknown Urine [place] Urine Culture - Final Gram positive cocci Yeast 01/19/21 03:35 Sputum - Suctioned Gram Stain - Final 01/19/21 03:35 Sputum - Suctioned Sputum Culture - Final 01/19/21 04:06 Blood - Venous Blood Culture - Preliminary No growth after 48 hours. 01/19/21 04:02 Blood - Venous Blood Culture - Preliminary No growth after 48 hours. 01/15/21 11:04 Blood - Venous Blood Culture - Final No growth after 5 days. 01/15/21 11:04 Blood - Venous Blood Culture - Final No growth after 5 days. 01/10/21 06:11 Blood - Venous Blood Culture - Final No growth after 5 days. 01/10/21 06:11 Blood - Venous Blood Culture - Final No growth after 5 days. 01/12/21 10:41 Sputum - Suctioned Gram Stain - Final 01/12/21 10:41 Sputum - Suctioned Sputum Culture - Final 12/30/20 06:29 Blood - Venous Blood Culture - Final No growth after 5 days. 12/30/20 06:20 Blood - Venous Blood Culture - Final No growth after 5 days. 12/31/20 15:59 Sputum - Suctioned Gram Stain - Final 12/31/20 15:59 Sputum - Suctioned Sputum Culture - Final 12/30/20 06:37 Kidney - Jones Catheter Urine Culture - Final No growth. 12/27/20 17:56 Sputum - Suctioned Gram Stain - Final 12/27/20 17:56 Sputum - Suctioned Sputum Culture - Final 12/27/20 17:53 Urine clean catch - Clean Catch Midstream Urine Culture - Final No growth. Progress Note: A&P Assessment and plan (1) Bacteriuria: Status: Acute (2) Hypernatremia: Status: Acute (3) Hypokalemia due to excessive renal loss of potassium: Status: Acute (4) Atrial fibrillation status post cardioversion: Status: Acute (5) Urinary retention: Status: Acute (6) Pulmonary aspiration: Status: Acute (7) Obesity: Status: Acute (8) HTN (hypertension): Status: Acute (9) CAD (coronary artery disease): Status: Acute (10) Acute and chronic respiratory failure: Status: Acute (11) Hemothorax on right: Status: Acute (12) Acute hypercapnic respiratory failure due to obstructive sleep apnea: Status: Acute (13) Acute renal failure due to tubular necrosis: Status: Acute (14) Sick sinus syndrome: Status: Acute (15) Symptomatic bradycardia: Status: Acute (16) Sleep apnea: Status: Acute (17) PAF (paroxysmal atrial fibrillation): Status: Acute (18) Cardiac arrest: Status: Acute (19) Metabolic alkalosis: Status: Acute (20) Dysphagia: Status: Acute (21) Heart failure with preserved ejection fraction: Status: Acute (22) Metabolic alkalosis: Status: Acute (23) Hyperkalemia: Status: Acute (24) Hyponatremia: Status: Acute (25) Acute hyponatremia: Status: Acute (26) CHF (congestive heart failure): Status: Acute (27) Fluid overload: Status: Acute (28) Acute diastolic CHF (congestive heart failure): Status: Acute (29) Uncontrolled hypertension: Status: Acute Assessment and Plan: So there was slow resolution of her encephalopathy and and even possibly her acalculous cholecystitis as well as her acute portion of the hypercarbic and hypoxic respiratory failure and for now will continue the antifungal and ant ibiotic regimen Quality Stroke Does the patient have a stroke diagnosis?: No VTE Prior VTE?: Yes VTE Risk Level:: Medical - moderate - high VTE Device Contraindication: N/A - Device Ordered VTE Drug Contraindication: Treatment Not Tolerated
[2021-01-22] MEDS: vancomycin HCL 1,000 MG in 0.9 % Sodium Chloride 250 ML 270 MG IV (18:05)
--- NOTE | 2021-01-22 18:37 | PC.NURSE ---
S/E Afebrile, WBC up to 23.9 Arousable to name, withdrawn, non verbal Afib HR 90-140's - continued on lopressor, digoxin, & cardizem 18 BVT - asymptomatic, MD aware K 3.7 - 20 Pot Chld administered Mag 1.6 - Mag 2g IV administered 2+ edema upper and lower extremities BNP up to 1324 - Lasix 20mg IVP administered LS dim throughout Moderate amount of clear frothy trach secretions Trach care completed switch - inner cannula cleansed Tolerating 28% Trach mask well - spO2 90-92% Patient slightly tachycardic throughout shift - MD aware Chest CT ordered and completed - see report Abdomen soft, tender to touch, hypoactive bowel sounds HIDA scan ordered and completed - see report Tolerating tube feeds & water flushes well Moderate pasty black BM [place] changed & draining - aprox 500cc throughout shift UC positive for gram positive cocci ID consulted - ABX changed to meropenum, vanco, & Diflucan Nystatin to folds, Barrier cream to stage I bilateral buttocks Stage II trach - Xeroform & gauze pad changed switch throughout shift Bathed, repo q2hr, airloss bed & prevlon pad in place Family updated
[2021-01-23] VITALS (32 sets, daily range): BP systolic 95–156; BP diastolic 48–74; PULSE 73–142; RESP 16–37; TEMP 30–36.9; O2SAT 90–98
[2021-01-23] MEDS: vancomycin HCL 1,000 MG in 0.9 % Sodium Chloride 250 ML 270 MG IV ×2 (03:32→15:23)
[2021-01-23 05:24] LABS: VBG Base Excess 21.2 mmol/L; VBG HCO3 48 mmol/L (22-26); VBG pCO2 63 mmHg; VBG pH 7.48 (7.32-7.43); VBG pO2 40 mmHg
[2021-01-23 06:04] LABS: Basophils Absolute Auto 0.1 X10*3/uL (0.0-0.2); Basophils Percent Auto 0.2 % (0-2); Eosinophils Percent Auto 0.2 % (0-4); Hematocrit 34.3 % (37-47); Hemoglobin 10.8 g/dl (12.0-16.0); Imm Gran Abs Auto 0.39 X10*3/uL (0.00-0.03); Imm Gran Pct Auto 1.5 % (0.0-0.4); Lymphocytes Absolute Auto 0.6 X10*3/uL (1.2-4.9); Lymphocytes Percent Auto 2.3 % (20-40); MANUAL DIFF FLAG SCAN; Mean Corpuscular HGB Conc 31.5 g/dl (31.0-35.0); Mean Corpuscular Hemoglobin 30.8 pg (27.0-33.0); Mean Corpuscular Volume 97.7 fL (80-98); Mean Platelet Volume 10.9 fL (9.4-12.3); Monocytes Absolute Auto 1.8 X10*3/uL (0.1-1.2); Monocytes Percent Auto 6.9 % (2-11); Neutrophils Absolute Auto 23.7 X10*3/uL (2.0-8.3); Neutrophils Percent Auto 88.9 % (45-73); Platelet Count 218 X10*3/uL (160-400); Red Blood Count 3.51 X10*6/uL (4.20-5.50); Red Cell Distribution Width 17.3 % (11.0-16.0); SCAN SMEAR FLAG 1; White Blood Count 26.6 X10*3/uL (4.8-10.8)
[2021-01-23 06:17] LABS: INTERNATIONAL NORM RATIO 1.3 (0.9-1.1); Prothrombin Time 15.2 SEC (10.8-13.0)
[2021-01-23 06:19] LABS: Partial Thromboplastin Time 25.6 SEC (24.1-38.0)
[2021-01-23 06:22] LABS: Venous Blood Gas Refer to POC result
[2021-01-23 06:42] LABS: B Type Natriuretic Peptide 1397 pg/mL (<100)
[2021-01-23 06:44] LABS: Alanine Aminotransferase 39 U/L (0-31); Albumin Level 2.7 g/dL (3.5-5.0); Alkaline Phosphatase 102 U/L (39-117); Anion Gap 13 (12-20); Aspartate Amino Transferase 39 U/L (5-31); Bilirubin Direct 0.3 mg/dL (0.0-0.5); Bilirubin Total 0.6 mg/dL (0.0-1.0); Blood Urea Nitrogen 14 mg/dL (9-16); Calcium 8.1 mg/dL (8.4-10.2); Carbon Dioxide 34 mmol/L (22-29); Chloride 99 mmol/L (96-108); Creatinine Clr Calc Pharmacy 128.5; Estimated Glomerular Filt Rate > 60; Glucose Random 115 mg/dL (60-115); Magnesium 1.8 mg/dL (1.6-2.6); Phosphorus 2.9 mg/dL (2.7-4.5); Potassium 3.7 mmol/L (3.3-5.1); Sodium 142 mmol/L (135-145)
[2021-01-23 07:18] LABS: SLIDE REVIEW VERIFIED
[2021-01-23] MEDS: Chlorhexidine Gluc Oral Rinse 15 ML MOUTHWASH BUCCAL ×3 (07:59→20:23)
[2021-01-23] MEDS: Sucralfate Oral Suspension 1 GM/10 ML ORAL.SUSP 0.5 GM PO ×4 (07:59→20:23)
[2021-01-23] MEDS: Losartan Potassium 25 MG TABLET PO (08:00)
[2021-01-23] MEDS: Digoxin 0.125 MG TABLET PO (08:00)
[2021-01-23] MEDS: 0.9 % Sodium Chloride Flush 3 ML SYRINGE IVFLUSH ×3 (08:01→23:37)
[2021-01-23] MEDS: Metoprolol Tartrate 50 MG TABLET 100 MG G-TUBE ×2 (08:01→20:24)
[2021-01-23] MEDS: dilTIAZem HCL 30 MG TABLET 60 MG PO ×4 (08:04→20:23)
[2021-01-23] MEDS: Spironolactone 25 MG TABLET 12.5 MG PO (08:04)
[2021-01-23] MEDS: Nystatin Powder 15 GM BOTTLE 1 APPL TOPICAL ×3 (09:03→20:25)
[2021-01-23] MEDS: Morphine Sulfate 2 MG/ML CARTRIDGE 1 MG IVPUSH (09:07)
[2021-01-23] MEDS: Lactulose 20 GM/30 ML SOLUTION PO (10:28)
[2021-01-23] MEDS: Fluconazole in NaCl,Iso-Osm 200 MG/100 ML PIGGYBACK 100 MG IV (13:04)
--- NOTE | 2021-01-23 14:22 | PM.CCPN ---
Subjective Subjective Date of Service: 01/23/21 Interval History: 75-year-old female with progressive hypercarbic and hypoxic respiratory failure leading to bradycardia than asystolic cardiac arrest with brief CPR to 10 minutes leading to rib fractures and a traumatic hemothorax and drained by chest tube requiring intubation at that time and failing to wean from the ventilator she had subsequent PEG tube and tracheostomy placement from the PEG tube apparently developed a upper GI hemorrhage with hypotension or circulatory shock and now recovering from that with gradually restoring encephalopathy repaired the renal function and currently on a trach collar and she is doing well with her feedings developed low-grade temperature and and basically now on empiric antibiotic and antifungal therapy because of possible spontaneous bacterial peritonitis possible urinary tract source and even possible lung source and awaiting the final is a james of cultures but we know that she C diff negative Critical Care Time (minutes): 45 Physical Exam Vital Signs: Vital Signs: Last Vital Signs Temp 96.9 F 01/23/21 12:00 Pulse 73 01/23/21 13:03 Resp 29 H 01/23/21 13:00 BP 95/48 L 01/23/21 13:03 Pulse Ox 92 01/23/21 13:00 Oxygen Flow Rate 2 12/26/20 15:00 Body Mass Index 39.2 Const: Other: Is she and has a some degree of restored cognitive function certainly not complete not yet really answering questions but does follow commands Nonfocal neurologically Skin doing well with no active cellulitis Abdomen is soft no organomegaly in good bowel sounds and she is accepting her feedings Lungs with but bilateral mild scattered rales Cardiac exam with no neck vein distension and good bilateral carotid upstrokes and no gallops Objective Data Labs CBC & Chem 7: 01/23/21 05:54 01/23/21 05:20 Labs: Laboratory Results - last 24 hr 01/23/21 01/23/21 01/23/21 05:03 05:17 05:20 WBC RBC Hgb Hct MCV MCH MCHC RDW Plt Count MPV Immature Gran % (Auto) Neut % (Auto) Lymph % (Auto) [place] % (Auto) Eos % (Auto) Baso % (Auto) Lymph # (Auto) [place] # (Auto) Eos # (Auto) Baso # (Auto) Abs Immat Gran (auto) Absolute Neuts (auto) Absolute Nucleated RBC Nucleated RBC % (auto) Smear Tech's Comments PT 15.2 H INR 1.3 H APTT 25.6 VBG pH 7.48 H VBG pCO2 63 VBG pO2 40 VBG HCO3 48 H VBG O2 Saturation 72.0 VBG Base Excess 21.2 Sodium Potassium Chloride Carbon Dioxide Anion Gap BUN Creatinine Estim Creat Clear Calc Estimated GFR Random Glucose Calcium Phosphorus Magnesium Total Bilirubin Direct Bilirubin AST ALT Alkaline Phosphatase B-Natriuretic Peptide 1397 H Total Protein Albumin 01/23/21 01/23/21 05:20 05:54 WBC 26.6 H RBC 3.51 L Hgb 10.8 L Hct 34.3 L MCV 97.7 MCH 30.8 MCHC 31.5 RDW 17.3 H Plt Count 218 MPV 10.9 Immature Gran % (Auto) 1.5 H Neut % (Auto) 88.9 H Lymph % (Auto) 2.3 L [place] % (Auto) 6.9 Eos % (Auto) 0.2 Baso % (Auto) 0.2 Lymph # (Auto) 0.6 L [place] # (Auto) 1.8 H Eos # (Auto) 0.0 Baso # (Auto) 0.1 Abs Immat Gran (auto) 0.39 H Absolute Neuts (auto) 23.7 H Absolute Nucleated RBC 0.000 Nucleated RBC % (auto) 0.0 Smear Tech's Comments VERIFIED PT INR APTT VBG pH VBG pCO2 VBG pO2 VBG HCO3 VBG O2 Saturation VBG Base Excess Sodium 142 Potassium 3.7 Chloride 99 Carbon Dioxide 34 H Anion Gap 13 BUN 14 Creatinine 0.49 L Estim Creat Clear Calc 128.5 Estimated GFR > 60 Random Glucose 115 Calcium 8.1 L Phosphorus 2.9 Magnesium 1.8 Total Bilirubin 0.6 Direct Bilirubin 0.3 AST 39 H ALT 39 H Alkaline Phosphatase 102 B-Natriuretic Peptide Total Protein 5.0 L Albumin 2.7 L Microbiology Microbiology Results: Microbiology 01/19/21 Unknown Urine [place] Urine Culture - Final Gram positive cocci Yeast 01/19/21 03:35 Sputum - Suctioned Gram Stain - Final 01/19/21 03:35 Sputum - Suctioned Sputum Culture - Final 01/19/21 04:06 Blood - Venous Blood Culture - Preliminary No growth after 48 hours. 01/19/21 04:02 Blood - Venous Blood Culture - Preliminary No growth after 48 hours. 01/15/21 11:04 Blood - Venous Blood Culture - Final No growth after 5 days. 01/15/21 11:04 Blood - Venous Blood Culture - Final No growth after 5 days. 01/10/21 06:11 Blood - Venous Blood Culture - Final No growth after 5 days. 01/10/21 06:11 Blood - Venous Blood Culture - Final No growth after 5 days. 01/12/21 10:41 Sputum - Suctioned Gram Stain - Final 01/12/21 10:41 Sputum - Suctioned Sputum Culture - Final 12/30/20 06:29 Blood - Venous Blood Culture - Final No growth after 5 days. 12/30/20 06:20 Blood - Venous Blood Culture - Final No growth after 5 days. 12/31/20 15:59 Sputum - Suctioned Gram Stain - Final 12/31/20 15:59 Sputum - Suctioned Sputum Culture - Final 12/30/20 06:37 Kidney - Jones Catheter Urine Culture - Final No growth. 12/27/20 17:56 Sputum - Suctioned Gram Stain - Final 12/27/20 17:56 Sputum - Suctioned Sputum Culture - Final 12/27/20 17:53 Urine clean catch - Clean Catch Midstream Urine Culture - Final No growth. Progress Note: A&P Assessment and plan (1) Bacteriuria: Status: Acute (2) Hypernatremia: Status: Acute (3) Hypokalemia due to excessive renal loss of potassium: Status: Acute (4) Atrial fibrillation status post cardioversion: Status: Acute (5) Obesity: Status: Acute (6) Urinary retention: Status: Acute (7) Pulmonary aspiration: Status: Acute (8) HTN (hypertension): Status: Acute (9) CAD (coronary artery disease): Status: Acute (10) Acute and chronic respiratory failure: Status: Acute (11) Hemothorax on right: Status: Acute (12) Acute hypercapnic respiratory failure due to obstructive sleep apnea: Status: Acute (13) Acute renal failure due to tubular necrosis: Status: Acute (14) Sick sinus syndrome: Status: Acute (15) PAF (paroxysmal atrial fibrillation): Status: Acute (16) Sleep apnea: Status: Acute (17) Symptomatic bradycardia: Status: Acute (18) Cardiac arrest: Status: Acute (19) Metabolic alkalosis: Status: Acute (20) Dysphagia: Status: Acute (21) Heart failure with preserved ejection fraction: Status: Acute (22) Metabolic alkalosis: Status: Acute (23) Hyperkalemia: Status: Acute (24) Hyponatremia: Status: Acute (25) Acute hyponatremia: Status: Acute (26) CHF (congestive heart failure): Status: Acute (27) Fluid overload: Status: Acute (28) Acute diastolic CHF (congestive heart failure): Status: Acute (29) Uncontrolled hypertension: Status: Acute Assessment and Plan: She will remain on the antibiotics as above and watching slow resolution of liver function tests hopefully is an indication that this is a resolving acalculous cholecystitis and will continue to observe mental status and proceed with physical therapy Quality Stroke Does the patient have a stroke diagnosis?: No VTE Prior VTE?: Yes VTE Risk Level:: Medical - moderate - high VTE Device Contraindication: N/A - Device Ordered VTE Drug Contraindication: Treatment Not Tolerated
[2021-01-24] VITALS (46 sets, daily range): BP systolic 47–175; BP diastolic 15–102; PULSE 53–104; RESP 15–34; TEMP 36.2–36.9; O2SAT 88–99
[2021-01-24 02:42] LABS: Vancomycin Trough 10.2 mcg/mL (10.0-20.0)
[2021-01-24] MEDS: vancomycin HCL 1,000 MG in 0.9 % Sodium Chloride 250 ML 270 MG IV ×2 (03:17→16:38)
--- NOTE | 2021-01-24 03:24 | PC.NURSE ---
CARE ASSUMED 23;15...REMAINS TRACH COLLAR---FIO2 28% AT HS...CUFF REMAINS DEFLATED..SAO2 86-88%...SUCTIONED LOOSE WHITE SPUTUM...SAO2 GOAL 88% OR > PER ICU PA...FIO2 TO 35% AND SAO2 92-93%...REMAINS TACHYPNEIC RR 28-32 AT BASE-LINE...DENIES SOB...ATRIAL FIB CONTROLLED HR...INCONTINANT LOOSE BLACK STOOL..INCONTINANT URINE...PURWIK DEVICE REPOSITIONED MULTIPLE TIMES...VANCOMYCIN TROUGH= 10.2... ICU PA AWARE...DOSAGE UNCHANGED..PATIENT DENIES DISCOMFORT...NAPPING INTERMITTANTLY OVERNIGHT..NO DISTRESS
[2021-01-24 05:58] LABS: VBG Base Excess 75.3 mmol/L; VBG HCO3 116 mmol/L (22-26); VBG pCO2 195 mmHg; VBG pH 7.38 (7.32-7.43); VBG pO2 39 mmHg
[2021-01-24 06:13] LABS: Basophils Percent Auto 0.2 % (0-2); Eosinophils Absolute Auto 0.1 X10*3/uL (0.0-0.4); Eosinophils Percent Auto 0.3 % (0-4); Hematocrit 32.8 % (37-47); Hemoglobin 10.1 g/dl (12.0-16.0); Imm Gran Abs Auto 0.21 X10*3/uL (0.00-0.03); Imm Gran Pct Auto 1.1 % (0.0-0.4); Lymphocytes Absolute Auto 0.4 X10*3/uL (1.2-4.9); Lymphocytes Percent Auto 2.1 % (20-40); MANUAL DIFF FLAG SCAN; Mean Corpuscular HGB Conc 30.8 g/dl (31.0-35.0); Mean Corpuscular Hemoglobin 30.5 pg (27.0-33.0); Mean Corpuscular Volume 99.1 fL (80-98); Mean Platelet Volume 10.3 fL (9.4-12.3); Monocytes Percent Auto 5.4 % (2-11); Neutrophils Percent Auto 90.9 % (45-73); Platelet Count 293 X10*3/uL (160-400); Red Blood Count 3.31 X10*6/uL (4.20-5.50); Red Cell Distribution Width 17.5 % (11.0-16.0); SCAN SMEAR FLAG 1; White Blood Count 18.7 X10*3/uL (4.8-10.8)
[2021-01-24 06:19] LABS: INTERNATIONAL NORM RATIO 1.2 (0.9-1.1)
[2021-01-24 06:21] LABS: Partial Thromboplastin Time 24.8 SEC (24.1-38.0)
[2021-01-24 06:44] LABS: SLIDE REVIEW VERIFIED
[2021-01-24 06:47] LABS: B Type Natriuretic Peptide 971 pg/mL (<100)
[2021-01-24 06:51] LABS: Alanine Aminotransferase 229 U/L (0-31); Albumin Level 2.7 g/dL (3.5-5.0); Alkaline Phosphatase 387 U/L (39-117); Anion Gap 9 (12-20); Aspartate Amino Transferase 305 U/L (5-31); Bilirubin Direct 2.5 mg/dL (0.0-0.5); Bilirubin Total 2.9 mg/dL (0.0-1.0); Blood Urea Nitrogen 19 mg/dL (9-16); Calcium 8.1 mg/dL (8.4-10.2); Carbon Dioxide 39 mmol/L (22-29); Chloride 97 mmol/L (96-108); Creatinine Clr Calc Pharmacy 110.5; Estimated Glomerular Filt Rate > 60; Glucose Random 124 mg/dL (60-115); Magnesium 1.9 mg/dL (1.6-2.6); Phosphorus 3.4 mg/dL (2.7-4.5); Potassium 3.7 mmol/L (3.3-5.1); Sodium 141 mmol/L (135-145); Total Protein 4.7 g/dL (6.5-8.0)
[2021-01-24 06:53] LABS: Venous Blood Gas Refer to POC result
[2021-01-24 07:46] LABS: VBG Base Excess 18.7 mmol/L; VBG HCO3 48 mmol/L (22-26); VBG pCO2 93 mmHg; VBG pH 7.32 (7.32-7.43); VBG pO2 47 mmHg
[2021-01-24 07:56] LABS: Venous Blood Gas Refer to POC result
[2021-01-24 07:59] LABS: Lipase 78 U/L (8-78)
[2021-01-24] MEDS: dilTIAZem HCL 30 MG TABLET 60 MG PO ×4 (08:17→20:30)
[2021-01-24] MEDS: Losartan Potassium 25 MG TABLET PO (08:17)
[2021-01-24] MEDS: Chlorhexidine Gluc Oral Rinse 15 ML MOUTHWASH BUCCAL ×3 (08:17→20:29)
[2021-01-24] MEDS: bisacodyL 10 MG SUPP.RECT PR (08:17)
[2021-01-24] MEDS: Digoxin 0.125 MG TABLET PO (08:17)
[2021-01-24] MEDS: Metoprolol Tartrate 50 MG TABLET 100 MG G-TUBE (08:18)
[2021-01-24] MEDS: Spironolactone 25 MG TABLET 12.5 MG PO (08:18)
[2021-01-24] MEDS: 0.9 % Sodium Chloride Flush 3 ML SYRINGE IVFLUSH ×2 (08:19→22:50)
[2021-01-24] MEDS: Sucralfate Oral Suspension 1 GM/10 ML ORAL.SUSP 0.5 GM PO ×4 (08:19→20:29)
[2021-01-24] MEDS: Nystatin Powder 15 GM BOTTLE 1 APPL TOPICAL ×3 (08:31→20:29)
[2021-01-24] MEDS: iohexoL 350 MG/ML 100 ML INFUS..BTL IV (10:44)
--- NOTE | 2021-01-24 11:33 | PM.CCPN ---
Subjective Subjective Date of Service: 01/24/21 Interval History: 75-year-old female currently with tracheostomy and PEG tube with stable hemoglobin and actually slightly improved white count but more of a left shift however but had a marked increase in LFTs including transaminases and alkaline phosphatase and direct hyperbilirubinemia and repeat CT scan but with contrast showed evidence of acalculous cholecystitis and clearly now at this point as I has suspected for several days, she needs a cholecystostomy tube placed Critical Care Time (minutes): 45 Physical Exam Vital Signs: Vital Signs: Last Vital Signs Temp 97.5 F 01/24/21 08:00 Pulse 81 01/24/21 11:00 Resp 34 H 01/24/21 11:00 BP 124/61 01/24/21 11:00 Pulse Ox 94 01/24/21 11:00 Oxygen Flow Rate 2 12/26/20 15:00 Body Mass Index 39.2 Const: Other: Still awake but I do feel that she still has some underlying did distress with her abdomen but the abdomen is is still soft and at this point Neurologically unchanged and nonfocal Cardiovascular with controlled AFib with rate in the mid 80s of stable oxygen saturation of 94% and pressure of 120/60 but climbing respiratory rate Objective Data Labs CBC & Chem 7: 01/24/21 05:45 01/24/21 05:45 Labs: Laboratory Results - last 24 hr 01/24/21 01/24/21 01/24/21 01:52 05:45 05:45 WBC 18.7 H RBC 3.31 L Hgb 10.1 L Hct 32.8 L MCV 99.1 H MCH 30.5 MCHC 30.8 L RDW 17.5 H Plt Count 293 D MPV 10.3 Immature Gran % (Auto) 1.1 H Neut % (Auto) 90.9 H Lymph % (Auto) 2.1 L [place] % (Auto) 5.4 Eos % (Auto) 0.3 Baso % (Auto) 0.2 Lymph # (Auto) 0.4 L [place] # (Auto) 1.0 Eos # (Auto) 0.1 Baso # (Auto) 0.0 Abs Immat Gran (auto) 0.21 H Absolute Neuts (auto) 17.0 H Absolute Nucleated RBC 0.000 Nucleated RBC % (auto) 0.0 Smear Tech's Comments VERIFIED PT 14.0 H INR 1.2 H APTT 24.8 VBG pH VBG pCO2 VBG pO2 VBG HCO3 VBG O2 Saturation VBG Base Excess Sodium Potassium Chloride Carbon Dioxide Anion Gap BUN Creatinine Estim Creat Clear Calc Estimated GFR Random Glucose Calcium Phosphorus Magnesium Total Bilirubin Direct Bilirubin AST ALT Alkaline Phosphatase B-Natriuretic Peptide Total Protein Albumin Lipase Vancomycin Trough 10.2 01/24/21 01/24/21 01/24/21 05:45 05:45 05:51 WBC RBC Hgb Hct MCV MCH MCHC RDW Plt Count MPV Immature Gran % (Auto) Neut % (Auto) Lymph % (Auto) [place] % (Auto) Eos % (Auto) Baso % (Auto) Lymph # (Auto) [place] # (Auto) Eos # (Auto) Baso # (Auto) Abs Immat Gran (auto) Absolute Neuts (auto) Absolute Nucleated RBC Nucleated RBC % (auto) Smear Tech's Comments PT INR APTT VBG pH 7.38 VBG pCO2 195 VBG pO2 39 VBG HCO3 116 H VBG O2 Saturation 66.0 VBG Base Excess 75.3 Sodium 141 Potassium 3.7 Chloride 97 Carbon Dioxide 39 H Anion Gap 9 L BUN 19 H Creatinine 0.57 Estim Creat Clear Calc 110.5 Estimated GFR > 60 Random Glucose 124 H Calcium 8.1 L Phosphorus 3.4 Magnesium 1.9 Total Bilirubin 2.9 H Direct Bilirubin 2.5 H AST 305 H ALT 229 H Alkaline Phosphatase 387 H D B-Natriuretic Peptide 971 H Total Protein 4.7 L Albumin 2.7 L Lipase 78 Vancomycin Trough 01/24/21 07:38 WBC RBC Hgb Hct MCV MCH MCHC RDW Plt Count MPV Immature Gran % (Auto) Neut % (Auto) Lymph % (Auto) [place] % (Auto) Eos % (Auto) Baso % (Auto) Lymph # (Auto) [place] # (Auto) Eos # (Auto) Baso # (Auto) Abs Immat Gran (auto) Absolute Neuts (auto) Absolute Nucleated RBC Nucleated RBC % (auto) Smear Tech's Comments PT INR APTT VBG pH 7.32 VBG pCO2 93 VBG pO2 47 VBG HCO3 48 H VBG O2 Saturation 73.0 VBG Base Excess 18.7 Sodium Potassium Chloride Carbon Dioxide Anion Gap BUN Creatinine Estim Creat Clear Calc Estimated GFR Random Glucose Calcium Phosphorus Magnesium Total Bilirubin Direct Bilirubin AST ALT Alkaline Phosphatase B-Natriuretic Peptide Total Protein Albumin Lipase Vancomycin Trough Microbiology Microbiology Results: Microbiology 01/19/21 04:06 Blood - Venous Blood Culture - Final No growth after 5 days. 01/19/21 04:02 Blood - Venous Blood Culture - Final No growth after 5 days. 01/19/21 Unknown Urine [place] Urine Culture - Final Gram positive cocci Yeast 01/19/21 03:35 Sputum - Suctioned Gram Stain - Final 01/19/21 03:35 Sputum - Suctioned Sputum Culture - Final 01/15/21 11:04 Blood - Venous Blood Culture - Final No growth after 5 days. 01/15/21 11:04 Blood - Venous Blood Culture - Final No growth after 5 days. 01/10/21 06:11 Blood - Venous Blood Culture - Final No growth after 5 days. 01/10/21 06:11 Blood - Venous Blood Culture - Final No growth after 5 days. 01/12/21 10:41 Sputum - Suctioned Gram Stain - Final 01/12/21 10:41 Sputum - Suctioned Sputum Culture - Final 12/30/20 06:29 Blood - Venous Blood Culture - Final No growth after 5 days. 12/30/20 06:20 Blood - Venous Blood Culture - Final No growth after 5 days. 12/31/20 15:59 Sputum - Suctioned Gram Stain - Final 12/31/20 15:59 Sputum - Suctioned Sputum Culture - Final 12/30/20 06:37 Kidney - Jones Catheter Urine Culture - Final No growth. 12/27/20 17:56 Sputum - Suctioned Gram Stain - Final 12/27/20 17:56 Sputum - Suctioned Sputum Culture - Final 12/27/20 17:53 Urine clean catch - Clean Catch Midstream Urine Culture - Final No growth. Progress Note: A&P Assessment and plan (1) Acalculous cholecystitis: Status: Acute (2) Bacteriuria: Status: Acute (3) Hypernatremia: Status: Acute (4) Hypokalemia due to excessive renal loss of potassium: Status: Acute (5) Atrial fibrillation status post cardioversion: Status: Acute (6) Obesity: Status: Acute (7) Urinary retention: Status: Acute (8) Pulmonary aspiration: Status: Acute (9) HTN (hypertension): Status: Acute (10) CAD (coronary artery disease): Status: Acute (11) Acute and chronic respiratory failure: Status: Acute (12) Hemothorax on right: Status: Acute (13) Acute hypercapnic respiratory failure due to obstructive sleep apnea: Status: Acute (14) Acute renal failure due to tubular necrosis: Status: Acute (15) Sick sinus syndrome: Status: Acute (16) Symptomatic bradycardia: Status: Acute (17) PAF (paroxysmal atrial fibrillation): Status: Acute (18) Sleep apnea: Status: Acute (19) Cardiac arrest: Status: Acute (20) Metabolic alkalosis: Status: Acute (21) Dysphagia: Status: Acute (22) Heart failure with preserved ejection fraction: Status: Acute (23) Metabolic alkalosis: Status: Acute (24) Hyperkalemia: Status: Acute (25) CHF (congestive heart failure): Status: Acute (26) Acute hyponatremia: Status: Acute (27) Hyponatremia: Status: Acute (28) Fluid overload: Status: Acute (29) Acute diastolic CHF (congestive heart failure): Status: Acute (30) Uncontrolled hypertension: Status: Acute Assessment and Plan: Still working on a response from Interventional Radiology because she definitely needs today to have a cholecystostomy tube placed Quality Stroke Does the patient have a stroke diagnosis?: No VTE Prior VTE?: Yes VTE Risk Level:: Medical - moderate - high VTE Device Contraindication: N/A - Device Ordered VTE Drug Contraindication: Treatment Not Tolerated
[2021-01-24] MEDS: fentaNYL citrate/PF 100 MCG/2 ML VIAL 50 MCG IVPUSH (13:53)
[2021-01-24] MEDS: Midazolam HCl/PF 2 MG/2 ML VIAL 5 MG IVPUSH (13:58)
[2021-01-24] MEDS: 0.9 % Sodium Chloride 1,000 ML 999 ML IVCONT (14:05)
[2021-01-24] MEDS: Phenylephrine HCL 1,000 MCG/10 ML SYRINGE 1000 MCG IVPUSH (14:08)
[2021-01-24] MEDS: Naloxone HCl 0.4 MG/ML VIAL IVPUSH (14:23)
--- NOTE | 2021-01-24 14:50 | PC.NURSE ---
Addendum entered by Radha Carlson RN 01/24/21 15:08: (NOTE CONTINUED)...EFFECT. NARCAN 0.4MG ADMIN AT 1423 AND LEVOPHED GTT STARTED PER ICU PROTOCOL AT 1430 PER MD ORDER. PT BP STABLE AT THAT TIME. GALLBLADDER SAMPLE COLLECTED AND SENT TO LAB, PROCEDURE COMPLETE AT THIS TIME AND PATIENT TO REMAIN ON A/C VENTILATION FOR THE TIME BEING PER MD. WILL CONTINUE TO MONITOR. Original Note: CONSENT SIGNED FOR TX OF ACUTE CALCULOUS CHOLECYSTITIS; GALLBLADDER DRAINAGE. FENTANYL 50MCG IVP ADMIN AT 1351 FOLLOWING 2MG OF VERSED AT 1358 PER MD ORDER. PT PLACED ON A/C VENTILATION AND PROCEDURE PERFORMED BEDSIDE. PT DID NOT TOLERATE PROCEDURE WELL AND BECAME HYPOTENSIVE AT 1405. 1 LITER NORMAL SALINE BOLUS ADMIN AT THAT TIME PER MD ORDER WITH POOR EFFECT. MD ADMIN A TOTAL OF 1100MCG NEOSYNEPHRINE BEGINNING AT 1408 WITH SOME EFFC
[2021-01-24] MEDS: Fluconazole in NaCl,Iso-Osm 200 MG/100 ML PIGGYBACK 100 MG IV (15:13)
[2021-01-24] MEDS: Lidocaine HCl 1 % MPF 5 ML VIAL SUBCUT (16:08)
[2021-01-25] VITALS (38 sets, daily range): BP systolic 99–161; BP diastolic 46–82; PULSE 68–135; RESP 14–32; TEMP 36.3–36.8; O2SAT 93–98
[2021-01-25] MEDS: vancomycin HCL 1,000 MG in 0.9 % Sodium Chloride 250 ML 166.67 MG IV (03:32)
[2021-01-25 05:34] LABS: MANUAL DIFF FLAG NO
[2021-01-25 05:37] LABS: Basophils Percent Auto 0.2 % (0-2); Eosinophils Absolute Auto 0.1 X10*3/uL (0.0-0.4); Eosinophils Percent Auto 0.6 % (0-4); Hematocrit 31.8 % (37-47); Imm Gran Abs Auto 0.12 X10*3/uL (0.00-0.03); Lymphocytes Absolute Auto 0.5 X10*3/uL (1.2-4.9); Lymphocytes Percent Auto 3.6 % (20-40); Mean Corpuscular HGB Conc 31.4 g/dl (31.0-35.0); Mean Corpuscular Hemoglobin 30.4 pg (27.0-33.0); Mean Corpuscular Volume 96.7 fL (80-98); Mean Platelet Volume 10.2 fL (9.4-12.3); Monocytes Absolute Auto 0.7 X10*3/uL (0.1-1.2); Monocytes Percent Auto 5.4 % (2-11); Neutrophils Absolute Auto 11.1 X10*3/uL (2.0-8.3); Neutrophils Percent Auto 89.2 % (45-73); Platelet Count 283 X10*3/uL (160-400); Red Blood Count 3.29 X10*6/uL (4.20-5.50); Red Cell Distribution Width 17.3 % (11.0-16.0); White Blood Count 12.4 X10*3/uL (4.8-10.8)
[2021-01-25 05:39] LABS: VBG Base Excess 13.4 mmol/L; VBG HCO3 37 mmol/L (22-26); VBG pCO2 43 mmHg; VBG pH 7.54 (7.32-7.43); VBG pO2 27 mmHg
[2021-01-25 05:41] LABS: Venous Blood Gas Refer to POC result
[2021-01-25 05:45] LABS: INTERNATIONAL NORM RATIO 1.2 (0.9-1.1); Prothrombin Time 14.2 SEC (10.8-13.0)
[2021-01-25 05:48] LABS: Partial Thromboplastin Time 25.8 SEC (24.1-38.0)
[2021-01-25 06:10] LABS: Alanine Aminotransferase 244 U/L (0-31); Albumin Level 2.7 g/dL (3.5-5.0); Alkaline Phosphatase 364 U/L (39-117); Anion Gap 8 (12-20); Aspartate Amino Transferase 231 U/L (5-31); Bilirubin Direct 1.5 mg/dL (0.0-0.5); Blood Urea Nitrogen 21 mg/dL (9-16); Calcium 8.3 mg/dL (8.4-10.2); Carbon Dioxide 38 mmol/L (22-29); Chloride 99 mmol/L (96-108); Creatinine Clr Calc Pharmacy 101.6; Estimated Glomerular Filt Rate > 60; Glucose Random 88 mg/dL (60-115); Magnesium 1.8 mg/dL (1.6-2.6); Phosphorus 2.8 mg/dL (2.7-4.5); Potassium 3.7 mmol/L (3.3-5.1); Sodium 141 mmol/L (135-145); Total Protein 4.7 g/dL (6.5-8.0)
[2021-01-25 06:11] LABS: B Type Natriuretic Peptide 930 pg/mL (<100)
[2021-01-25] MEDS: Chlorhexidine Gluc Oral Rinse 15 ML MOUTHWASH BUCCAL ×3 (08:21→20:25)
[2021-01-25] MEDS: Sucralfate Oral Suspension 1 GM/10 ML ORAL.SUSP 0.5 GM PO ×4 (08:21→20:25)
[2021-01-25] MEDS: Spironolactone 25 MG TABLET 12.5 MG PO (08:22)
[2021-01-25] MEDS: Losartan Potassium 25 MG TABLET PO (08:28)
[2021-01-25] MEDS: Digoxin 0.125 MG TABLET PO (08:29)
[2021-01-25] MEDS: dilTIAZem HCL 30 MG TABLET 60 MG PO ×4 (08:30→20:27)
[2021-01-25] MEDS: Nystatin Powder 15 GM BOTTLE 1 APPL TOPICAL ×3 (08:31→20:28)
[2021-01-25] MEDS: 0.9 % Sodium Chloride Flush 3 ML SYRINGE IVFLUSH ×2 (09:12→16:24)
--- NOTE | 2021-01-25 09:39 | MHC.CLN ---
F/U PT'S TF WAS ON HOLD R/T ACALCULOUS CHOLECYSTITIS PT TO RE-START TF; RECOMMEND JEVITY AT MAX GOAL RATE 55CC/HR WITH 240CC FREE WATER FLUSHES Q SHIFT PROVIDES 1399KCALS (24KCALS/KG BASED ON IBW), 58G PROTEIN (.98G/KG), 1822CC TOTAL WATER FROM FORMULA AND FLUSHES (31CC/KG) BASED ON IBW MONITOR TOLERANCE, RESIDUALS AND LYTES FOLLOWING
--- NOTE | 2021-01-25 10:00 | P.PNCC_ITS ---
Subjective Subjective Date of Service: 01/25/21 Interval History: 75-year-old lady with underlying diabetes mellitus, morbid obesity, ANITA noncompliant with CPAP, hypertension, AFib on Eliquis, CAD, anxiety, with recent admission for AFib requiring cardioversion, admitted on December 13 with dyspnea, nausea, and vomiting, treated for hyponatremia and congestive heart failure, also noted to have esophageal stricture, status post EGD on 12/24 with balloon dilatation, further hospital course complicated by acute on chronic hypoxic and hypercapnic respiratory failure, with what appears to have been a bradycardic episode with possible cardiac arrest on 12/27, status post 10 minutes of CPR, intubated during resuscitation, attempting to talk after return of spontaneous circulation, thus did not undergo hypothermia. Extubated on 12/29, requiring right-sided chest tube on 12/30 for right hemothorax, re- intubated on 12/30 for worsening respiratory status, extubated 01/04/2021. Required re-intubation on 01/05/2021 secondary to recurrent aspirations. Right chest tube removed on 01/08/2021. Status post tracheostomy on 01/08/2021. Parenteral gastrostomy on 01/13/2021. Acute upper GI bleed on 01/14/2021 status post EGD identifying a gastric source. Also, acalculous cholecystitis requiring placement of percutaneous cholecystostomy on 01/24/2021. Critical Care Time (minutes): 60 Physical Exam Vital Signs: Vital Signs: Last Vital Signs Temp 98.1 F 01/25/21 08:00 Pulse 132 H 01/25/21 09:00 Resp 32 H 01/25/21 09:00 BP 161/82 H 01/25/21 08:30 Pulse Ox 95 01/25/21 09:00 Oxygen Flow Rate 2 12/26/20 15:00 Body Mass Index 39.2 Const: General: no acute distress, alert and awake Nutritional Appearance: Edematous Eyes: Sclerae: sclerae normal EOM: EOMs intact bilaterally Neck: Neck: Yes no lymphadenopathy, Yes trachea midline, Yes supple and Yes other (Tracheostomy on vent) Resp: Effort & Inspection: normal respiratory effort and no respiratory distress Auscultation: clear to auscultation bilaterally Cardio: Rate: tachycardic Rhythm: abnormal rhythm irregularly irregular Heart sounds: no gallops, no murmurs and no rubs GI: Inspection: Yes other (PEG, cholecystostomy) Palpation (GI): Soft to palpation and Other GI palpation findings present ( Nontender) Auscultation: normal bowel sounds Extrem: General: No clubbing, No cyanosis and Yes pedal edema (1+ bilateral) Objective Data Labs CBC & Chem 7: 01/25/21 05:27 01/25/21 05:27 Labs: Laboratory Results - last 24 hr 01/25/21 01/25/21 01/25/21 05:27 05:27 05:27 WBC 12.4 H RBC 3.29 L Hgb 10.0 L Hct 31.8 L MCV 96.7 MCH 30.4 MCHC 31.4 RDW 17.3 H Plt Count 283 MPV 10.2 Immature Gran % (Auto) 1.0 H Neut % (Auto) 89.2 H Lymph % (Auto) 3.6 L [place] % (Auto) 5.4 Eos % (Auto) 0.6 Baso % (Auto) 0.2 Lymph # (Auto) 0.5 L [place] # (Auto) 0.7 Eos # (Auto) 0.1 Baso # (Auto) 0.0 Abs Immat Gran (auto) 0.12 H Absolute Neuts (auto) 11.1 H Absolute Nucleated RBC 0.000 Nucleated RBC % (auto) 0.0 PT 14.2 H INR 1.2 H APTT 25.8 VBG pH VBG pCO2 VBG pO2 VBG HCO3 VBG O2 Saturation VBG Base Excess Sodium 141 Potassium 3.7 Chloride 99 Carbon Dioxide 38 H Anion Gap 8 L BUN 21 H Creatinine 0.62 Estim Creat Clear Calc 101.6 Estimated GFR > 60 Random Glucose 88 Calcium 8.3 L Phosphorus 2.8 Magnesium 1.8 Total Bilirubin 2.0 H Direct Bilirubin 1.5 H AST 231 H ALT 244 H Alkaline Phosphatase 364 H B-Natriuretic Peptide Total Protein 4.7 L Albumin 2.7 L 01/25/21 01/25/21 05:27 05:32 WBC RBC Hgb Hct MCV MCH MCHC RDW Plt Count MPV Immature Gran % (Auto) Neut % (Auto) Lymph % (Auto) [place] % (Auto) Eos % (Auto) Baso % (Auto) Lymph # (Auto) [place] # (Auto) Eos # (Auto) Baso # (Auto) Abs Immat Gran (auto) Absolute Neuts (auto) Absolute Nucleated RBC Nucleated RBC % (auto) PT INR APTT VBG pH 7.54 H VBG pCO2 43 VBG pO2 27 VBG HCO3 37 H VBG O2 Saturation 45.0 VBG Base Excess 13.4 Sodium Potassium Chloride Carbon Dioxide Anion Gap BUN Creatinine Estim Creat Clear Calc Estimated GFR Random Glucose Calcium Phosphorus Magnesium Total Bilirubin Direct Bilirubin AST ALT Alkaline Phosphatase B-Natriuretic Peptide 930 H Total Protein Albumin Microbiology Microbiology Results: Microbiology 01/24/21 15:08 Gallbladder Fluid Gram Stain - Final 01/24/21 15:08 Gallbladder Fluid Routine Culture - Preliminary Enterococcus/Streptococcus sp 01/24/21 15:08 Gallbladder Fluid Anaerobic Culture - Preliminary Culture in progress. 01/19/21 04:06 Blood - Venous Blood Culture - Final No growth after 5 days. 01/19/21 04:02 Blood - Venous Blood Culture - Final No growth after 5 days. 01/19/21 Unknown Urine [place] Urine Culture - Final Gram positive cocci Yeast 01/19/21 03:35 Sputum - Suctioned Gram Stain - Final 01/19/21 03:35 Sputum - Suctioned Sputum Culture - Final 01/15/21 11:04 Blood - Venous Blood Culture - Final No growth after 5 days. 01/15/21 11:04 Blood - Venous Blood Culture - Final No growth after 5 days. 01/10/21 06:11 Blood - Venous Blood Culture - Final No growth after 5 days. 01/10/21 06:11 Blood - Venous Blood Culture - Final No growth after 5 days. 01/12/21 10:41 Sputum - Suctioned Gram Stain - Final 01/12/21 10:41 Sputum - Suctioned Sputum Culture - Final 12/30/20 06:29 Blood - Venous Blood Culture - Final No growth after 5 days. 12/30/20 06:20 Blood - Venous Blood Culture - Final No growth after 5 days. 12/31/20 15:59 Sputum - Suctioned Gram Stain - Final 12/31/20 15:59 Sputum - Suctioned Sputum Culture - Final 12/30/20 06:37 Kidney - Jones Catheter Urine Culture - Final No growth. 12/27/20 17:56 Sputum - Suctioned Gram Stain - Final 12/27/20 17:56 Sputum - Suctioned Sputum Culture - Final 12/27/20 17:53 Urine clean catch - Clean Catch Midstream Urine Culture - Final No growth. Progress Note: A&P Assessment and plan (1) Acalculous cholecystitis: Status: Acute Assessment and Plan: Assessment: 75-year-old lady with underlying obesity, ANITA, CAD congestive heart failure, AFib, initially admitted with exacerbation of congestive heart failure with hospital course complicated by esophageal stricture status post balloon dilatation, cardiac arrest with return of spontaneous circulation after 10 minutes of CPR, right hemothorax status post chest tube placement, acute on chronic hypoxic and hypercapnic respiratory failure, and recurrent pulmonary aspirations status post tracheostomy and parenteral gastrostomy, acalculous cholecystitis status post percutaneous cholecystostomy Plan: Neuro: No acute issues. Cardiac: Cardiac arrest status post returned spontaneous circulation after 10 minutes of CPR. Underlying chronic diastolic congestive heart failure. Underlying AFib with tachy-reuben syndrome, now on rhythm and rate control. Pulmonary: Acute hypoxic and hypercapnic respiratory failure initially intubated during the CPR, also underlying ANITA with obesity hypoventilation, further complicated by right-sided hemothorax. Thoracic surgery service care appreciated. Chest tube removed 01/08/2021. Extubated 01/04/2021. Required re-intubation on 01/05/2021 secondary to recurrent aspiration. Status post tracheostomy on 01/08/2021. General surgery service care appreciated. Continue to titrate off ventilatory support. Renal: No acute issues. Endo: No acute issues. Underlying diabetes mellitus. GI: Acalculous cholecystitis status post percutaneous cholecystostomy. ID: Cholecystitis, cultures are pending, continues on broad-spectrum antibiotics and antifungal. Heme/Onc: No acute issues. Psych: No acute issues. Miscellaneous: No acute issues. Prophylaxis: Heparin, ppi Diet: Tube feeds Critical care time spent: 60 minutes (2) Bacteriuria: Status: Acute (3) Pulmonary aspiration: Status: Acute (4) CAD (coronary artery disease): Status: Acute (5) Acute and chronic respiratory failure: Status: Acute (6) Sick sinus syndrome: Status: Acute (7) Sleep apnea: Status: Acute (8) PAF (paroxysmal atrial fibrillation): Status: Acute (9) Cardiac arrest: Status: Acute (10) Heart failure with preserved ejection fraction: Status: Acute Quality Stroke Does the patient have a stroke diagnosis?: No VTE Prior VTE?: Yes VTE Risk Level:: Medical - moderate - high VTE Device Contraindication: N/A - Device Ordered VTE Drug Contraindication: Treatment Not Tolerated
--- NOTE | 2021-01-25 11:30 | HO.RADPN ---
RADIOLOGY Narrative Narrative: Stable post cholecystostomy tube placement. Abdomen soft. Good output from tube. WBC and bilirubin decreased from yesterday. Culture positive for enterococcus. Please flush drain with 10 mL saline q shift to keep it patent. Would recommend keeping drain in for at least 4 - 6 weeks and checking cholangiogram before considering removing drain to make sure the cystic duct is patent.
--- NOTE | 2021-01-25 13:08 | PM.IDPN ---
Subjective Subjective Date of Service: 01/25/21 Critical Care Time (minutes): 15 Comment: she feels much better enterococcus wound cholecystotomy Gtube urine gram positive and yeast Objective Data Labs CBC & Chem 7: 01/25/21 05:27 01/25/21 05:27 Labs: Laboratory Results - last 24 hr 01/25/21 01/25/21 01/25/21 05:27 05:27 05:27 WBC 12.4 H RBC 3.29 L Hgb 10.0 L Hct 31.8 L MCV 96.7 MCH 30.4 MCHC 31.4 RDW 17.3 H Plt Count 283 MPV 10.2 Immature Gran % (Auto) 1.0 H Neut % (Auto) 89.2 H Lymph % (Auto) 3.6 L [place] % (Auto) 5.4 Eos % (Auto) 0.6 Baso % (Auto) 0.2 Lymph # (Auto) 0.5 L [place] # (Auto) 0.7 Eos # (Auto) 0.1 Baso # (Auto) 0.0 Abs Immat Gran (auto) 0.12 H Absolute Neuts (auto) 11.1 H Absolute Nucleated RBC 0.000 Nucleated RBC % (auto) 0.0 PT 14.2 H INR 1.2 H APTT 25.8 VBG pH VBG pCO2 VBG pO2 VBG HCO3 VBG O2 Saturation VBG Base Excess Sodium 141 Potassium 3.7 Chloride 99 Carbon Dioxide 38 H Anion Gap 8 L BUN 21 H Creatinine 0.62 Estim Creat Clear Calc 101.6 Estimated GFR > 60 Random Glucose 88 Calcium 8.3 L Phosphorus 2.8 Magnesium 1.8 Total Bilirubin 2.0 H Direct Bilirubin 1.5 H AST 231 H ALT 244 H Alkaline Phosphatase 364 H B-Natriuretic Peptide Total Protein 4.7 L Albumin 2.7 L 01/25/21 01/25/21 05:27 05:32 WBC RBC Hgb Hct MCV MCH MCHC RDW Plt Count MPV Immature Gran % (Auto) Neut % (Auto) Lymph % (Auto) [place] % (Auto) Eos % (Auto) Baso % (Auto) Lymph # (Auto) [place] # (Auto) Eos # (Auto) Baso # (Auto) Abs Immat Gran (auto) Absolute Neuts (auto) Absolute Nucleated RBC Nucleated RBC % (auto) PT INR APTT VBG pH 7.54 H VBG pCO2 43 VBG pO2 27 VBG HCO3 37 H VBG O2 Saturation 45.0 VBG Base Excess 13.4 Sodium Potassium Chloride Carbon Dioxide Anion Gap BUN Creatinine Estim Creat Clear Calc Estimated GFR Random Glucose Calcium Phosphorus Magnesium Total Bilirubin Direct Bilirubin AST ALT Alkaline Phosphatase B-Natriuretic Peptide 930 H Total Protein Albumin Microbiology Microbiology Results: Microbiology 01/24/21 15:08 Gallbladder Fluid Gram Stain - Final 01/24/21 15:08 Gallbladder Fluid Routine Culture - Preliminary Enterococcus/Streptococcus sp 01/24/21 15:08 Gallbladder Fluid Anaerobic Culture - Preliminary Culture in progress. 01/19/21 04:06 Blood - Venous Blood Culture - Final No growth after 5 days. 01/19/21 04:02 Blood - Venous Blood Culture - Final No growth after 5 days. 01/19/21 Unknown Urine [place] Urine Culture - Final Gram positive cocci Yeast 01/19/21 03:35 Sputum - Suctioned Gram Stain - Final 01/19/21 03:35 Sputum - Suctioned Sputum Culture - Final 01/15/21 11:04 Blood - Venous Blood Culture - Final No growth after 5 days. 01/15/21 11:04 Blood - Venous Blood Culture - Final No growth after 5 days. 01/10/21 06:11 Blood - Venous Blood Culture - Final No growth after 5 days. 01/10/21 06:11 Blood - Venous Blood Culture - Final No growth after 5 days. 01/12/21 10:41 Sputum - Suctioned Gram Stain - Final 01/12/21 10:41 Sputum - Suctioned Sputum Culture - Final 12/30/20 06:29 Blood - Venous Blood Culture - Final No growth after 5 days. 12/30/20 06:20 Blood - Venous Blood Culture - Final No growth after 5 days. 12/31/20 15:59 Sputum - Suctioned Gram Stain - Final 12/31/20 15:59 Sputum - Suctioned Sputum Culture - Final 12/30/20 06:37 Kidney - Jones Catheter Urine Culture - Final No growth. 12/27/20 17:56 Sputum - Suctioned Gram Stain - Final 12/27/20 17:56 Sputum - Suctioned Sputum Culture - Final 12/27/20 17:53 Urine clean catch - Clean Catch Midstream Urine Culture - Final No growth. Physical Exam Vital Signs: Vital Signs: Last Vital Signs Temp 98.1 F 01/25/21 12:00 Pulse 126 H 01/25/21 12:00 Resp 26 H 01/25/21 12:00 BP 127/64 01/25/21 12:00 Pulse Ox 95 01/25/21 12:00 Oxygen Flow Rate 2 12/26/20 15:00 Body Mass Index 39.2 Const: General: cooperative HENMT: Head: Yes normal to inspection Mouth: Normal oral and palatal mucosa present Resp: Effort & Inspection: normal respiratory effort Cardio: Rate: regular rate Rhythm: regular rhythm GI: Palpation (GI): Soft to palpation and nontender Assessment and Plan Assessment and plan (1) Acalculous cholecystitis: Problem details: She has urine with gram positive and yeast and awaiting blood culture Wound enterococcus Day 4 Vancomycin,Merem and Diflucan Status: Acute Assessment and Plan: Would continue above antibiotics Await final cultures and determine duration Time Spent With Patient Time: Total time spent is greater than 50% in coordination of care (as documented) at patient's floor/unit and/or counseling patient: Time with patient: less than 15 minutes
[2021-01-25] MEDS: Heparin Sodium,Porcine 5,000 UNIT/ML VIAL 5000 UNIT SUBCUT ×2 (13:23→17:49)
[2021-01-25 14:45] LABS: Vancomycin Trough 19.6 mcg/mL (10.0-20.0)
[2021-01-25] MEDS: Morphine Sulfate 2 MG/ML CARTRIDGE 1 MG IVPUSH (14:48)
[2021-01-25] MEDS: Fluconazole in NaCl,Iso-Osm 200 MG/100 ML PIGGYBACK 100 MG IV (14:50)
--- NOTE | 2021-01-25 15:28 | MHC.CM.ED ---
Patient remains on vent via trach. Clinical updates sent to [facility] via [employer]. Continue to monitor for d/c needs.
[2021-01-25] MEDS: vancomycin HCL 750 MG in 0.9 % Sodium Chloride 250 ML 265 MG IV (17:49)
[2021-01-25] MEDS: Metoprolol Tartrate 50 MG TABLET 100 MG G-TUBE (20:26)
[2021-01-26] VITALS (31 sets, daily range): BP systolic 92–141; BP diastolic 40–80; PULSE 59–108; RESP 14–32; TEMP 36.1–36.5; O2SAT 90–99
[2021-01-26] MEDS: 0.9 % Sodium Chloride Flush 3 ML SYRINGE IVFLUSH ×3 (00:25→15:12)
[2021-01-26] MEDS: Heparin Sodium,Porcine 5,000 UNIT/ML VIAL 5000 UNIT SUBCUT ×3 (02:20→18:59)
[2021-01-26] MEDS: vancomycin HCL 750 MG in 0.9 % Sodium Chloride 250 ML 265 MG IV (03:24)
[2021-01-26 05:33] LABS: VBG Base Excess 17.2 mmol/L; VBG HCO3 44 mmol/L (22-26); VBG pCO2 67 mmHg; VBG pH 7.43 (7.32-7.43); VBG pO2 31 mmHg
[2021-01-26 05:38] LABS: MANUAL DIFF FLAG NO
[2021-01-26 05:43] LABS: Basophils Percent Auto 0.2 % (0-2); Eosinophils Absolute Auto 0.2 X10*3/uL (0.0-0.4); Eosinophils Percent Auto 1.5 % (0-4); Hematocrit 31.4 % (37-47); Hemoglobin 9.7 g/dl (12.0-16.0); Imm Gran Abs Auto 0.17 X10*3/uL (0.00-0.03); Imm Gran Pct Auto 1.6 % (0.0-0.4); Lymphocytes Absolute Auto 0.6 X10*3/uL (1.2-4.9); Lymphocytes Percent Auto 5.1 % (20-40); Mean Corpuscular HGB Conc 30.9 g/dl (31.0-35.0); Mean Corpuscular Hemoglobin 30.2 pg (27.0-33.0); Mean Corpuscular Volume 97.8 fL (80-98); Mean Platelet Volume 9.8 fL (9.4-12.3); Monocytes Absolute Auto 0.7 X10*3/uL (0.1-1.2); Monocytes Percent Auto 6.8 % (2-11); Neutrophils Absolute Auto 9.1 X10*3/uL (2.0-8.3); Neutrophils Percent Auto 84.8 % (45-73); Platelet Count 306 X10*3/uL (160-400); Red Blood Count 3.21 X10*6/uL (4.20-5.50); Red Cell Distribution Width 17.8 % (11.0-16.0); White Blood Count 10.8 X10*3/uL (4.8-10.8)
[2021-01-26 05:45] LABS: Venous Blood Gas Refer to POC result
[2021-01-26 06:14] LABS: Alanine Aminotransferase 182 U/L (0-31); Albumin Level 2.7 g/dL (3.5-5.0); Alkaline Phosphatase 326 U/L (39-117); Anion Gap 12 (12-20); Aspartate Amino Transferase 128 U/L (5-31); Bilirubin Total 1.3 mg/dL (0.0-1.0); Blood Urea Nitrogen 18 mg/dL (9-16); Calcium 8.3 mg/dL (8.4-10.2); Carbon Dioxide 37 mmol/L (22-29); Chloride 99 mmol/L (96-108); Creatinine Clr Calc Pharmacy 108.6; Estimated Glomerular Filt Rate > 60; Glucose Random 94 mg/dL (60-115); Magnesium 1.7 mg/dL (1.6-2.6); Phosphorus 3.4 mg/dL (2.7-4.5); Potassium 3.4 mmol/L (3.3-5.1); Sodium 145 mmol/L (135-145); Total Protein 4.9 g/dL (6.5-8.0)
--- NOTE | 2021-01-26 06:46 | PC.NURSE ---
SE [id number]: Pt slept off and on during the night. No resp distress of O2 35% via trach collar. Trach care given. Trach suctioned for small to moderate amount of white loose sputum. Trach site pink, dsg changed. Afebrile. Antibiotics via midline left upper arm. Tube feeds on hold since 0000. Spoke to NAVJ[facility] Rosario about holding them due to high residual and pt is to have trach changed today. She said to hold feedings. Residuals over 100 ml.
[2021-01-26] MEDS: Chlorhexidine Gluc Oral Rinse 15 ML MOUTHWASH BUCCAL ×3 (08:42→22:33)
[2021-01-26] MEDS: dilTIAZem HCL 30 MG TABLET 60 MG PO ×4 (08:46→22:34)
[2021-01-26] MEDS: Sucralfate Oral Suspension 1 GM/10 ML ORAL.SUSP 0.5 GM PO ×4 (08:51→22:31)
[2021-01-26] MEDS: acetaZOLAMIDE sodium 500 MG VIAL 250 MG IVPUSH ×2 (08:52→22:33)
[2021-01-26] MEDS: Metoprolol Tartrate 50 MG TABLET 100 MG G-TUBE ×2 (08:53→22:33)
[2021-01-26] MEDS: Digoxin 0.125 MG TABLET PO (08:53)
[2021-01-26] MEDS: Losartan Potassium 25 MG TABLET PO (08:53)
[2021-01-26] MEDS: Nystatin Powder 15 GM BOTTLE 1 APPL TOPICAL ×3 (08:58→22:31)
[2021-01-26] MEDS: Potassium Chloride/H20 10 MEQ/100 ML PIGGYBACK 100 MEQ IV ×4 (08:58→15:11)
[2021-01-26] MEDS: fentaNYL citrate/PF 100 MCG/2 ML VIAL 50 MCG IVPUSH (10:07)
[2021-01-26] MEDS: Spironolactone 25 MG TABLET 12.5 MG PO (10:14)
--- NOTE | 2021-01-26 10:21 | P.PNCC_ITS ---
Subjective Subjective Date of Service: 01/26/21 Interval History: 75-year-old lady with underlying diabetes mellitus, morbid obesity, ANITA noncompliant with CPAP, hypertension, AFib on Eliquis, CAD, anxiety, with recent admission for AFib requiring cardioversion, admitted on December 13 with dyspnea, nausea, and vomiting, treated for hyponatremia and congestive heart failure, also noted to have esophageal stricture, status post EGD on 12/24 with balloon dilatation, further hospital course complicated by acute on chronic hypoxic and hypercapnic respiratory failure, with what appears to have been a bradycardic episode with possible cardiac arrest on 12/27, status post 10 minutes of CPR, intubated during resuscitation, attempting to talk after return of spontaneous circulation, thus did not undergo hypothermia. Extubated on 12/29, requiring right-sided chest tube on 12/30 for right hemothorax, re- intubated on 12/30 for worsening respiratory status, extubated 01/04/2021. Required re-intubation on 01/05/2021 secondary to recurrent aspirations. Right chest tube removed on 01/08/2021. Status post tracheostomy on 01/08/2021. Parenteral gastrostomy on 01/13/2021. Acute upper GI bleed on 01/14/2021 status post EGD identifying a gastric source. Also, acalculous cholecystitis requiring placement of percutaneous cholecystostomy on 01/24/2021, now growing Enterococcus. No events overnight. Tolerated tracheal collar for 24 hours. Tracheostomy changed to Portex 8 uncuffed. Critical Care Time (minutes): 60 Physical Exam Vital Signs: Vital Signs: Last Vital Signs Temp 97.7 F 01/26/21 08:00 Pulse 104 H 01/26/21 10:14 Resp 32 H 01/26/21 10:07 BP 133/58 L 01/26/21 10:14 Pulse Ox 90 L 01/26/21 10:00 Oxygen Flow Rate 2 12/26/20 15:00 Body Mass Index 39.2 Const: General: no acute distress, alert and awake Nutritional Appearance: obese Eyes: Sclerae: sclerae normal EOM: EOMs intact bilaterally Neck: Neck: Yes no lymphadenopathy, Yes trachea midline, Yes supple and Yes other (Tracheostomy on tracheal collar) Resp: Effort & Inspection: normal respiratory effort and no respiratory distress Auscultation: clear to auscultation bilaterally Cardio: Rate: regular rate Rhythm: regular rhythm Heart sounds: no gallops, no murmurs and no rubs GI: Palpation (GI): Soft to palpation and Other GI palpation findings present ( Nontender) Auscultation: normal bowel sounds Extrem: General: No clubbing, No cyanosis and Yes pedal edema (2+ bilateral) Objective Data Labs CBC & Chem 7: 01/26/21 05:25 01/26/21 05:25 Labs: Laboratory Results - last 24 hr 01/25/21 01/26/21 01/26/21 13:59 05:25 05:25 WBC 10.8 RBC 3.21 L Hgb 9.7 L Hct 31.4 L MCV 97.8 MCH 30.2 MCHC 30.9 L RDW 17.8 H Plt Count 306 MPV 9.8 Immature Gran % (Auto) 1.6 H Neut % (Auto) 84.8 H Lymph % (Auto) 5.1 L [place] % (Auto) 6.8 Eos % (Auto) 1.5 Baso % (Auto) 0.2 Lymph # (Auto) 0.6 L [place] # (Auto) 0.7 Eos # (Auto) 0.2 Baso # (Auto) 0.0 Abs Immat Gran (auto) 0.17 H Absolute Neuts (auto) 9.1 H Absolute Nucleated RBC 0.000 Nucleated RBC % (auto) 0.0 VBG pH VBG pCO2 VBG pO2 VBG HCO3 VBG O2 Saturation VBG Base Excess Sodium 145 Potassium 3.4 Chloride 99 Carbon Dioxide 37 H Anion Gap 12 BUN 18 H Creatinine 0.58 Estim Creat Clear Calc 108.6 Estimated GFR > 60 Random Glucose 94 Calcium 8.3 L Phosphorus 3.4 Magnesium 1.7 Total Bilirubin 1.3 H AST 128 H ALT 182 H Alkaline Phosphatase 326 H Total Protein 4.9 L Albumin 2.7 L Vancomycin Trough 19.6 01/26/21 05:26 WBC RBC Hgb Hct MCV MCH MCHC RDW Plt Count MPV Immature Gran % (Auto) Neut % (Auto) Lymph % (Auto) [place] % (Auto) Eos % (Auto) Baso % (Auto) Lymph # (Auto) [place] # (Auto) Eos # (Auto) Baso # (Auto) Abs Immat Gran (auto) Absolute Neuts (auto) Absolute Nucleated RBC Nucleated RBC % (auto) VBG pH 7.43 VBG pCO2 67 VBG pO2 31 VBG HCO3 44 H VBG O2 Saturation 48.0 VBG Base Excess 17.2 Sodium Potassium Chloride Carbon Dioxide Anion Gap BUN Creatinine Estim Creat Clear Calc Estimated GFR Random Glucose Calcium Phosphorus Magnesium Total Bilirubin AST ALT Alkaline Phosphatase Total Protein Albumin Vancomycin Trough Microbiology Microbiology Results: Microbiology 01/24/21 15:08 Gallbladder Fluid Gram Stain - Final 01/24/21 15:08 Gallbladder Fluid Routine Culture - Preliminary Enterococcus faecium 01/24/21 15:08 Gallbladder Fluid Anaerobic Culture - Preliminary 01/19/21 04:06 Blood - Venous Blood Culture - Final No growth after 5 days. 01/19/21 04:02 Blood - Venous Blood Culture - Final No growth after 5 days. 01/19/21 Unknown Urine [place] Urine Culture - Final Gram positive cocci Yeast 01/19/21 03:35 Sputum - Suctioned Gram Stain - Final 01/19/21 03:35 Sputum - Suctioned Sputum Culture - Final 01/15/21 11:04 Blood - Venous Blood Culture - Final No growth after 5 days. 01/15/21 11:04 Blood - Venous Blood Culture - Final No growth after 5 days. 01/10/21 06:11 Blood - Venous Blood Culture - Final No growth after 5 days. 01/10/21 06:11 Blood - Venous Blood Culture - Final No growth after 5 days. 01/12/21 10:41 Sputum - Suctioned Gram Stain - Final 01/12/21 10:41 Sputum - Suctioned Sputum Culture - Final 12/30/20 06:29 Blood - Venous Blood Culture - Final No growth after 5 days. 12/30/20 06:20 Blood - Venous Blood Culture - Final No growth after 5 days. 12/31/20 15:59 Sputum - Suctioned Gram Stain - Final 12/31/20 15:59 Sputum - Suctioned Sputum Culture - Final 12/30/20 06:37 Kidney - Jones Catheter Urine Culture - Final No growth. 12/27/20 17:56 Sputum - Suctioned Gram Stain - Final 12/27/20 17:56 Sputum - Suctioned Sputum Culture - Final 12/27/20 17:53 Urine clean catch - Clean Catch Midstream Urine Culture - Final No growth. Progress Note: A&P Assessment and plan (1) Acalculous cholecystitis: Status: Acute Assessment and Plan: Assessment: 75-year-old lady with underlying obesity, ANITA, CAD congestive heart failure, AFib, initially admitted with exacerbation of congestive heart failure with hospital course complicated by esophageal stricture status post balloon dilatation, cardiac arrest with return of spontaneous circulation after 10 minutes of CPR, right hemothorax status post chest tube placement, acute on chronic hypoxic and hypercapnic respiratory failure, and recurrent pulmonary aspirations status post tracheostomy and parenteral gastrostomy, acalculous c holecystitis status post percutaneous cholecystostomy Plan: Neuro: No acute issues. Cardiac: Cardiac arrest status post returned spontaneous circulation after 10 minutes of CPR. Underlying chronic diastolic congestive heart failure. Underlying AFib with tachy-reuben syndrome, now on rhythm and rate control. Pulmonary: Acute hypoxic and hypercapnic respiratory failure initially intubated during the CPR, also underlying ANITA with obesity hypoventilation, further complicated by right-sided hemothorax. Thoracic surgery service care appreciated. Chest tube removed 01/08/2021. Extubated 01/04/2021. Required re-intubation on 01/05/2021 secondary to recurrent aspiration. Status post tracheostomy on 01/08/2021. General surgery service care appreciated. Tolerated 24 hours of tracheal collar. Tracheostomy changed to Portex 8 uncuffed. Renal: No acute issues. Endo: No acute issues. Underlying diabetes mellitus. GI: Acalculous cholecystitis status post percutaneous cholecystostomy. ID: Cholecystitis, Enterococcus, final cultures are pending, continues on broad-spectrum antibiotics and antifungal. Infectious Disease service care appreciated. Heme/Onc: No acute issues. Psych: No acute issues. Miscellaneous: No acute issues. Prophylaxis: Heparin, ppi Diet: Tube feeds Critical care time spent: 60 minutes (2) Bacteriuria: Status: Acute (3) Obesity: Status: Acute (4) Pulmonary aspiration: Status: Acute (5) CAD (coronary artery disease): Status: Acute (6) Acute and chronic respiratory failure: Status: Acute (7) Sick sinus syndrome: Status: Acute (8) Sleep apnea: Status: Acute (9) PAF (paroxysmal atrial fibrillation): Status: Acute (10) Cardiac arrest: Status: Acute (11) Heart failure with preserved ejection fraction: Status: Acute Quality Stroke Does the patient have a stroke diagnosis?: No VTE Prior VTE?: Yes VTE Risk Level:: Medical - moderate - high VTE Device Contraindication: N/A - Device Ordered VTE Drug Contraindication: Treatment Not Tolerated
[2021-01-26] MEDS: Lactulose 20 GM/30 ML SOLUTION 30 GM PO ×2 (11:36→22:32)
[2021-01-26] MEDS: Fluconazole in NaCl,Iso-Osm 200 MG/100 ML PIGGYBACK 100 MG IV (15:11)
--- NOTE | 2021-01-26 20:24 | PC.NURSE ---
late entry 01/25: assumed care at 07:00: active ROM with nursing, then PT with active ROM, then patient was OOb to olivas chair from 9 am-17:30; afebrile and continued on fluconazole/meropenem/vancomycin; trach collar from 9 am for entire shift 35%, SpO2 in mid 90's%; secretions were white/creamy/thick from trach incision site and white-clear and mucoid from inside trach, MD aware; a-fib 140's-150's before scheduled digoxin/cardizem and down to 100's-120's afterward--no PRN metoprolol per md; at 9 am TF was restarted at 20 cc/hour, held the 240 cc water flush and lowered tf down to 20 cc / hour per MD; Patient had orange urine output; 01/26: assumed care at 07:00; patient alert, smiling, nueros intact, but seems disoriented to time and place; assessments via lip reading and writing; patient with some pain to right upper abdominal quadrant in late morning; new #8 cuffless portex inserted by provider at bedside after administration of 50 mcg IV fentanyl with good effect as well as relief for abdominal discomfort, no subsequent reports of pain; Patient subsequently fatigued for most of day and did not get OOB today; trach collar in use all day, started at 35%, this was increased to 100% during trach change, then 80% afterward, then downtitrated to 40% rest of day; no more secretions from trach insertion site, wound nurse in and inspected two small open areas are still at the distal corners of where the trach flange was making contact with skin, skin is blanchable but two open areas with yellowish wound bed, no drainage and xeroform was applied during trach care per wound nurse, also inspected stage one to buttocks and patient has left ankle blisters, large one to lateral malleolus and two small ones to dorsal foot, patient has two small reddened areas to right lateral thigh that were inspected by wound nurse; patient trach secretions mucoid and whitish clear; frequent suctioning per MD; patient with afib on monitor today rate controlled nearly all day with infrequent jumps up above 100 bpm, but generally 70's-90's; Patient BP 110's-130's; grossly edematous, weeping from left upper thigh; pitting edema in BLE seems worse: +3. Lactulose given per MD, large pasty brown BM this evening; TF not well tolerated: held at 1500 after restarting at 1145 for high residuals. urine output 600 for 12 hours, orange colored.
[2021-01-27] VITALS (22 sets, daily range): BP systolic 103–150; BP diastolic 44–81; PULSE 51–90; RESP 14–25; TEMP 36.2–37.1; O2SAT 92–97
[2021-01-27 02:42] LABS: Vancomycin Trough 13.4 mcg/mL (10.0-20.0)
[2021-01-27] MEDS: Heparin Sodium,Porcine 5,000 UNIT/ML VIAL 5000 UNIT SUBCUT ×3 (03:05→16:22)
[2021-01-27] MEDS: 0.9 % Sodium Chloride Flush 3 ML SYRINGE IVFLUSH ×4 (03:07→20:23)
[2021-01-27 05:22] LABS: MANUAL DIFF FLAG NO
[2021-01-27 05:24] LABS: Basophils Percent Auto 0.3 % (0-2); Eosinophils Absolute Auto 0.1 X10*3/uL (0.0-0.4); Eosinophils Percent Auto 1.1 % (0-4); Hematocrit 32.4 % (37-47); Hemoglobin 9.8 g/dl (12.0-16.0); Imm Gran Pct Auto 1.7 % (0.0-0.4); Lymphocytes Absolute Auto 0.5 X10*3/uL (1.2-4.9); Lymphocytes Percent Auto 4.2 % (20-40); Mean Corpuscular HGB Conc 30.2 g/dl (31.0-35.0); Mean Corpuscular Hemoglobin 30.5 pg (27.0-33.0); Mean Corpuscular Volume 100.9 fL (80-98); Mean Platelet Volume 9.5 fL (9.4-12.3); Monocytes Absolute Auto 0.7 X10*3/uL (0.1-1.2); Monocytes Percent Auto 6.1 % (2-11); Neutrophils Percent Auto 86.6 % (45-73); Platelet Count 296 X10*3/uL (160-400); Red Blood Count 3.21 X10*6/uL (4.20-5.50); Red Cell Distribution Width 17.2 % (11.0-16.0); White Blood Count 11.5 X10*3/uL (4.8-10.8)
[2021-01-27 05:27] LABS: Venous Blood Gas Refer to POC result
[2021-01-27 05:28] LABS: VBG Base Excess 19.4 mmol/L; VBG HCO3 47 mmol/L (22-26); VBG pCO2 75 mmHg; VBG pO2 37 mmHg
[2021-01-27 05:56] LABS: Albumin Level 2.6 g/dL (3.5-5.0); Anion Gap 9 (12-20); Blood Urea Nitrogen 15 mg/dL (9-16); Calcium 8.3 mg/dL (8.4-10.2); Carbon Dioxide 40 mmol/L (22-29); Chloride 99 mmol/L (96-108); Creatinine Clr Calc Pharmacy 110.5; Estimated Glomerular Filt Rate > 60; Glucose Random 100 mg/dL (60-115); Magnesium 1.6 mg/dL (1.6-2.6); Phosphorus 3.7 mg/dL (2.7-4.5); Potassium 3.5 mmol/L (3.3-5.1); Sodium 144 mmol/L (135-145)
[2021-01-27 05:59] LABS: Vancomycin Random 12.8 mcg/mL (15-20)
[2021-01-27] MEDS: Sucralfate Oral Suspension 1 GM/10 ML ORAL.SUSP 0.5 GM PO ×4 (06:30→20:17)
[2021-01-27] MEDS: Magnesium Sulfate/H2O 2 GM/50 ML PIGGYBACK IV (08:18)
[2021-01-27] MEDS: Chlorhexidine Gluc Oral Rinse 15 ML MOUTHWASH BUCCAL ×2 (08:19→20:17)
[2021-01-27] MEDS: acetaZOLAMIDE sodium 500 MG VIAL 250 MG IVPUSH ×2 (08:19→20:17)
[2021-01-27] MEDS: dilTIAZem HCL 30 MG TABLET 60 MG PO ×2 (08:20→20:17)
[2021-01-27] MEDS: Digoxin 0.125 MG TABLET PO (08:20)
[2021-01-27] MEDS: Losartan Potassium 25 MG TABLET PO (08:21)
[2021-01-27] MEDS: Metoprolol Tartrate 50 MG TABLET 100 MG G-TUBE ×2 (08:22→20:18)
[2021-01-27] MEDS: Nystatin Powder 15 GM BOTTLE 1 APPL TOPICAL ×2 (08:22→20:19)
[2021-01-27] MEDS: Spironolactone 25 MG TABLET 12.5 MG PO (08:22)
[2021-01-27] MEDS: Linezolid/D5W 600 MG/300 ML PIGGYBACK 300 MG IV ×2 (08:58→20:18)
--- NOTE | 2021-01-27 09:58 | MHC.CM.PN ---
Pt remains in ICU on trach collar vent support. She now has a cuffless #8 portex and a gallbladder drain in place. No plans for d/c at this time : Being followed by Peter in [place]: Clinical updates sent today
--- NOTE | 2021-01-27 10:08 | MHC.CLN ---
F/U PT'S TF WAS ON HOLD R/T HIGH RESIDUALS PER NSG PT HAD LARGE BM 01/26; BM X 2 01/25 PT TO RE-START TF; JEVITY AT 20CC/HR WITH 240CC FREE WATER FLUSHES Q SHIFT PER MD; DISCUSSED AT ROUNDS MAX GOAL RATE JEVITY AT 55CC/HR WITH 240CC FREE WATER FLUSHES Q SHIFT PROVIDES 1399KCALS (24KCALS/KG BASED ON IBW), 58G PROTEIN (.98G/KG), 1822CC TOTAL WATER FROM FORMULA AND FLUSHES (31CC/KG) BASED ON IBW MONITOR TOLERANCE, RESIDUALS AND LYTES FOLLOWING
--- NOTE | 2021-01-27 10:11 | PM.CCPN ---
Subjective Subjective Date of Service: 01/27/21 Interval History: 75-year-old lady with underlying diabetes mellitus, morbid obesity, ANITA noncompliant with CPAP, hypertension, AFib on Eliquis, CAD, anxiety, with recent admission for AFib requiring cardioversion, admitted on December 13 with dyspnea, nausea, and vomiting, treated for hyponatremia and congestive heart failure, also noted to have esophageal stricture, status post EGD on 12/24 with balloon dilatation, further hospital course complicated by acute on chronic hypoxic and hypercapnic respiratory failure, with what appears to have been a bradycardic episode with possible cardiac arrest on 12/27, status post 10 minutes of CPR, intubated during resuscitation, attempting to talk after return of spontaneous circulation, thus did not undergo hypothermia. Extubated on 12/29, requiring right-sided chest tube on 12/30 for right hemothorax, re-intubated on 12/30 for worsening respiratory status, extubated 01/04/2021. Required re-intubation on 01/05/2021 secondary to recurrent aspirations. Right chest tube removed on 01/08/2021. Status post tracheostomy on 01/08/2021. Parenteral gastrostomy on 01/13/2021. Acute upper GI bleed on 01/14/2021 status post EGD identifying a gastric source. Also, acalculous cholecystitis requiring placement of percutaneous cholecystostomy on 01/24/2021, now growing VRE. No events overnight. Tolerated tracheal collar for 48 hours. Critical Care Time (minutes): 0 Physical Exam Vital Signs: Vital Signs: Last Vital Signs Temp 98.1 F 01/27/21 07:57 Pulse 90 01/27/21 09:00 Resp 22 H 01/27/21 09:00 BP 134/61 01/27/21 09:00 Pulse Ox 95 01/27/21 09:00 Oxygen Flow Rate 2 12/26/20 15:00 Body Mass Index 39.2 Const: General: no acute distress, alert and awake Nutritional Appearance: obese Eyes: Sclerae: sclerae normal EOM: EOMs intact bilaterally Neck: Neck: Yes no lymphadenopathy, Yes trachea midline, Yes supple and Yes other (Tracheostomy on tracheal collar) Resp: Effort & Inspection: normal respiratory effort and no respiratory distress Auscultation: clear to auscultation bilaterally Cardio: Rate: regular rate Rhythm: abnormal rhythm irregularly irregular Heart sounds: no gallops, no murmurs and no rubs GI: Inspection: Yes other (PEG, cholecystostomy) Palpation (GI): Soft to palpation and Other GI palpation findings present ( Nontender) Auscultation: normal bowel sounds Extrem: General: Yes no pedal edema, No clubbing and No cyanosis Objective Data Labs CBC & Chem 7: 01/27/21 05:17 01/27/21 05:17 Labs: Laboratory Results - last 24 hr 01/27/21 01/27/21 01/27/21 01:56 05:17 05:17 WBC RBC Hgb Hct MCV MCH MCHC RDW Plt Count MPV Immature Gran % (Auto) Neut % (Auto) Lymph % (Auto) [place] % (Auto) Eos % (Auto) Baso % (Auto) Lymph # (Auto) [place] # (Auto) Eos # (Auto) Baso # (Auto) Abs Immat Gran (auto) Absolute Neuts (auto) Absolute Nucleated RBC Nucleated RBC % (auto) VBG pH VBG pCO2 VBG pO2 VBG HCO3 VBG O2 Saturation VBG Base Excess Sodium Potassium Chloride Carbon Dioxide Anion Gap BUN Creatinine Cancelled Estim Creat Clear Calc Cancelled Estimated GFR Cancelled Random Glucose Calcium Phosphorus Magnesium Albumin Vancomycin Trough 13.4 Random Vancomycin 12.8 L 01/27/21 01/27/21 01/27/21 05:17 05:17 05:20 WBC 11.5 H RBC 3.21 L Hgb 9.8 L Hct 32.4 L MCV 100.9 H MCH 30.5 MCHC 30.2 L RDW 17.2 H Plt Count 296 MPV 9.5 Immature Gran % (Auto) 1.7 H Neut % (Auto) 86.6 H Lymph % (Auto) 4.2 L [place] % (Auto) 6.1 Eos % (Auto) 1.1 Baso % (Auto) 0.3 Lymph # (Auto) 0.5 L [place] # (Auto) 0.7 Eos # (Auto) 0.1 Baso # (Auto) 0.0 Abs Immat Gran (auto) 0.20 H Absolute Neuts (auto) 10.0 H Absolute Nucleated RBC 0.000 Nucleated RBC % (auto) 0.0 VBG pH 7.40 VBG pCO2 75 VBG pO2 37 VBG HCO3 47 H VBG O2 Saturation 65.0 VBG Base Excess 19.4 Sodium 144 Potassium 3.5 Chloride 99 Carbon Dioxide 40 H* Anion Gap 9 L BUN 15 Creatinine 0.57 Estim Creat Clear Calc 110.5 Estimated GFR > 60 Random Glucose 100 Calcium 8.3 L Phosphorus 3.7 Magnesium 1.6 Albumin 2.6 L Vancomycin Trough Random Vancomycin Microbiology Microbiology Results: Microbiology 01/24/21 15:08 Gallbladder Fluid Gram Stain - Final 01/24/21 15:08 Gallbladder Fluid Routine Culture - Final Enterococcus faecium 01/24/21 15:08 Gallbladder Fluid Anaerobic Culture - Preliminary 01/19/21 04:06 Blood - Venous Blood Culture - Final No growth after 5 days. 01/19/21 04:02 Blood - Venous Blood Culture - Final No growth after 5 days. 01/19/21 Unknown Urine [place] Urine Culture - Final Gram positive cocci Yeast 01/19/21 03:35 Sputum - Suctioned Gram Stain - Final 01/19/21 03:35 Sputum - Suctioned Sputum Culture - Final 01/15/21 11:04 Blood - Venous Blood Culture - Final No growth after 5 days. 01/15/21 11:04 Blood - Venous Blood Culture - Final No growth after 5 days. 01/10/21 06:11 Blood - Venous Blood Culture - Final No growth after 5 days. 01/10/21 06:11 Blood - Venous Blood Culture - Final No growth after 5 days. 01/12/21 10:41 Sputum - Suctioned Gram Stain - Final 01/12/21 10:41 Sputum - Suctioned Sputum Culture - Final 12/30/20 06:29 Blood - Venous Blood Culture - Final No growth after 5 days. 12/30/20 06:20 Blood - Venous Blood Culture - Final No growth after 5 days. 12/31/20 15:59 Sputum - Suctioned Gram Stain - Final 12/31/20 15:59 Sputum - Suctioned Sputum Culture - Final 12/30/20 06:37 Kidney - Jones Catheter Urine Culture - Final No growth. 12/27/20 17:56 Sputum - Suctioned Gram Stain - Final 12/27/20 17:56 Sputum - Suctioned Sputum Culture - Final 12/27/20 17:53 Urine clean catch - Clean Catch Midstream Urine Culture - Final No growth. Progress Note: A&P Assessment and plan (1) Acalculous cholecystitis: Status: Acute Assessment and Plan: Assessment: 75-year-old lady with underlying obesity, ANITA, CAD congestive heart failure, AFib, initially admitted with exacerbation of congestive heart failure with hospital course complicated by esophageal stricture status post balloon dilatation, cardiac arrest with return of spontaneous circulation after 10 minutes of CPR, right hemothorax status post chest tube placement, acute on chronic hypoxic and hypercapnic respiratory failure, and recurrent pulmonary aspirations status post tracheostomy and parenteral gastrostomy, acalculous cholecystitis with VRE status post percutaneous cholecystostomy Plan: Neuro: No acute issues. Cardiac: Cardiac arrest status post returned spontaneous circulation after 10 minutes of CPR. Underlying chronic diastolic congestive heart failure on diuretic. Underlying AFib with tachy-reuben syndrome, now on rhythm and rate control. Pulmonary: Acute hypoxic and hypercapnic respiratory failure initially intubated during the CPR, also underlying ANITA with obesity hypoventilation, further complicated by right-sided hemothorax. Thoracic surgery service care appreciated. Chest tube removed 01/08/2021. Extubated 01/04/2021. Required re-intubation on 01/05/2021 secondary to recurrent aspiration. Status post tracheostomy on 01/08/2021. General surgery service care appreciated. Tolerated 48 hours of tracheal collar. Tracheostomy changed to Portex 8 uncuffed on 01/26/2021. Renal: No acute issues. Endo: No acute issues. Underlying diabetes mellitus. GI: VRE acalculous cholecystitis status post percutaneous cholecystostomy. Contrast study in 4-6 weeks. ID: Cholecystitis, VRE, switched to linezolid. Infectious Disease service care appreciated. Heme/Onc: No acute issues. Psych: No acute issues. Miscellaneous: No acute issues. Prophylaxis: Heparin, ppi Diet: Tube feeds (2) Obesity: Status: Acute (3) Pulmonary aspiration: Status: Acute (4) CAD (coronary artery disease): Status: Acute (5) Acute and chronic respiratory failure: Status: Acute (6) PAF (paroxysmal atrial fibrillation): Status: Acute (7) Cardiac arrest: Status: Acute (8) Heart failure with preserved ejection fraction: Status: Acute (9) Acute diastolic CHF (congestive heart failure): Status: Acute Quality Stroke Does the patient have a stroke diagnosis?: No VTE Prior VTE?: Yes VTE Risk Level:: Medical - moderate - high VTE Device Contraindication: N/A - Device Ordered VTE Drug Contraindication: Treatment Not Tolerated
[2021-01-27] MEDS: Furosemide 20 MG/2 ML VIAL IVPUSH (11:18)
[2021-01-28] VITALS (11 sets, daily range): BP systolic 116–158; BP diastolic 60–77; PULSE 38–91; RESP 16–20; TEMP 35.9–36.9; O2SAT 94–99
[2021-01-28] MEDS: Heparin Sodium,Porcine 5,000 UNIT/ML VIAL 5000 UNIT SUBCUT ×3 (02:34→17:17)
[2021-01-28 06:04] LABS: MANUAL DIFF FLAG NO
[2021-01-28 06:05] LABS: Venous Blood Gas Refer to POC result
[2021-01-28 06:06] LABS: VBG Base Excess 18.2 mmol/L; VBG HCO3 47 mmol/L (22-26); VBG pCO2 82 mmHg; VBG pH 7.36 (7.32-7.43); VBG pO2 41 mmHg
[2021-01-28 06:08] LABS: Basophils Percent Auto 0.2 % (0-2); Eosinophils Absolute Auto 0.2 X10*3/uL (0.0-0.4); Eosinophils Percent Auto 1.2 % (0-4); Hematocrit 34.1 % (37-47); Hemoglobin 10.3 g/dl (12.0-16.0); Imm Gran Abs Auto 0.26 X10*3/uL (0.00-0.03); Imm Gran Pct Auto 2.1 % (0.0-0.4); Lymphocytes Absolute Auto 0.5 X10*3/uL (1.2-4.9); Mean Corpuscular HGB Conc 30.2 g/dl (31.0-35.0); Mean Corpuscular Hemoglobin 30.5 pg (27.0-33.0); Mean Corpuscular Volume 100.9 fL (80-98); Mean Platelet Volume 9.7 fL (9.4-12.3); Monocytes Absolute Auto 0.6 X10*3/uL (0.1-1.2); Monocytes Percent Auto 4.8 % (2-11); Neutrophils Absolute Auto 11.1 X10*3/uL (2.0-8.3); Neutrophils Percent Auto 87.7 % (45-73); Platelet Count 330 X10*3/uL (160-400); Red Blood Count 3.38 X10*6/uL (4.20-5.50); Red Cell Distribution Width 17.1 % (11.0-16.0); White Blood Count 12.7 X10*3/uL (4.8-10.8)
[2021-01-28 06:49] LABS: Albumin Level 2.7 g/dL (3.5-5.0); Anion Gap 5 (12-20); Blood Urea Nitrogen 14 mg/dL (9-16); Calcium 8.4 mg/dL (8.4-10.2); Carbon Dioxide 42 mmol/L (22-29); Chloride 98 mmol/L (96-108); Creatinine Clr Calc Pharmacy 108.6; Estimated Glomerular Filt Rate > 60; Glucose Random 126 mg/dL (60-115); Magnesium 1.7 mg/dL (1.6-2.6); Phosphorus 3.2 mg/dL (2.7-4.5); Potassium 3.5 mmol/L (3.3-5.1); Sodium 141 mmol/L (135-145)
[2021-01-28] MEDS: Sucralfate Oral Suspension 1 GM/10 ML ORAL.SUSP 0.5 GM PO ×4 (08:41→21:31)
[2021-01-28] MEDS: acetaZOLAMIDE sodium 500 MG VIAL 250 MG IVPUSH ×2 (08:41→21:29)
[2021-01-28] MEDS: Linezolid/D5W 600 MG/300 ML PIGGYBACK 300 MG IV ×2 (08:42→21:31)
[2021-01-28] MEDS: Metoprolol Tartrate 50 MG TABLET 100 MG G-TUBE ×2 (08:42→21:30)
[2021-01-28] MEDS: Chlorhexidine Gluc Oral Rinse 15 ML MOUTHWASH BUCCAL ×3 (08:42→21:30)
[2021-01-28] MEDS: dilTIAZem HCL 30 MG TABLET 60 MG PO ×2 (08:42→21:30)
[2021-01-28] MEDS: 0.9 % Sodium Chloride Flush 3 ML SYRINGE IVFLUSH ×3 (08:42→21:31)
[2021-01-28] MEDS: Furosemide 20 MG/2 ML VIAL IVPUSH ×2 (08:43→17:17)
[2021-01-28] MEDS: Spironolactone 25 MG TABLET 12.5 MG PO (08:43)
[2021-01-28] MEDS: Digoxin 0.125 MG TABLET PO (08:43)
[2021-01-28] MEDS: Nystatin Powder 15 GM BOTTLE 1 APPL TOPICAL ×3 (08:44→21:31)
--- NOTE | 2021-01-28 11:19 | MHC.CM.PN ---
Call placed to TYRELL Snow liasion at [facility]: Discussed and reviewed pt's clinical data at length in anticipation of impending transfer. Gwendolyn requested the following before transfer can be arranged: 1. Jevity tube feeding tolerated at max/goal rate with residuals not to exceed 40 ml 2. Repeat CXR to ensure no development of PNA given her elevated blood gas / CO2 as well as elevated WBC. Of note, pt is being tx with ATB for VRE in gallbladder which may explain elevated WBC. No temp and no significant clinical findings to suggest new infectious process. Updated MD on above and plans to revisit discharge ability on 01/29. Will converse with JOSE Olsen re: tube feeding issues. CM to follow
--- NOTE | 2021-01-28 11:34 | HO.PM.IMPN ---
Subjective Subjective Date of Service: 01/28/21 Interval History: weak Cardiovascular Cardiovascular: Reports no additional cardiovascular complaints Respiratory Respiratory: Reports no additional respiratory complaints Physical Exam Vital Signs: Vital Signs: Last Vital Signs Temp 97.9 F 01/28/21 11:30 Pulse 62 01/28/21 11:30 Resp 20 01/28/21 11:30 BP 116/60 01/28/21 11:30 Pulse Ox 94 01/28/21 11:30 Oxygen Flow Rate 2 12/26/20 15:00 Body Mass Index 39.2 Const General: no acute distress, alert and awake Nutritional Appearance: obese Eyes Sclerae: sclerae normal EOM: EOMs intact bilaterally Neck Neck: Yes no lymphadenopathy, Yes trachea midline, Yes supple and Yes other (Tracheostomy on tracheal collar) Resp Effort & Inspection: normal respiratory effort and no respiratory distress Auscultation: clear to auscultation bilaterally Cardio Rate: regular rate Rhythm: abnormal rhythm irregularly irregular Heart sounds: no gallops, no murmurs and no rubs GI Inspection: Yes other (PEG, cholecystostomy) Palpation (GI): Soft to palpation and Other GI palpation findings present ( Nontender) Auscultation: normal bowel sounds Extrem General: Yes no pedal edema, No clubbing and No cyanosis Objective Data Current Medications Generic Name Dose Route Start Last Admin Trade Name Shubhamq PRN Reason Stop Dose Admin Acetazolamide 250 mg 01/26/21 09:00 01/28/21 08:41 Acetazolamide Sodium 500 Mg Vial IVPUSH 01/28/21 21:01 250 mg BID DEE Administration Chlorhexidine Gluconate 15 ml 01/05/21 15:00 01/28/21 08:42 Chlorhexidine Gluc Oral Rinse 15 Ml Mouthwash BUCCAL 15 ml TID DEE Administration Digoxin 0.125 mg 01/19/21 17:30 01/28/21 08:43 Digoxin 0.125 Mg Tablet PO 0.125 mg DAILY DEE Administration Diltiazem HCl 60 mg 01/23/21 09:00 01/28/21 08:42 Diltiazem Hcl 30 Mg Tablet PO 60 mg QID DEE Administration Protocol Furosemide 20 mg 01/27/21 10:30 01/28/21 08:43 Furosemide 20 Mg/2 Ml Vial IVPUSH 20 mg DAILY DEE Administration Protocol Heparin Sodium (Porcine) 5,000 unit 01/25/21 10:00 01/28/21 08:44 Heparin Sodium,Porcine 5,000 Unit/Ml Vial SUBCUT 5,000 unit Q8H [facility] Administration Linezolid 600 mg in 300 mls @ 300 mls/hr 01/27/21 08:30 01/28/21 10:19 Zyvox/D5w IV Infused Q12H DEE Infusion Metoprolol Tartrate 100 mg 01/19/21 09:00 01/28/21 08:42 Metoprolol Tartrate 50 Mg Tablet G-TUBE 100 mg BID [facility] Administration Protocol Nystatin 1 appl 01/09/21 17:00 01/28/21 08:44 Nystatin Powder 15 Gm Bottle TOPICAL 1 appl TID [facility] Administration Protocol Sodium Chloride 3 ml 12/14/20 00:00 01/28/21 08:42 0.9 % Sodium Chloride Flush 3 Ml Syringe IVFLUSH 3 ml QSHIFT [facility] Administration Spironolactone 12.5 mg 01/21/21 15:30 01/28/21 08:43 Spironolactone 25 Mg Tablet PO 12.5 mg DAILY [facility] Administration Protocol Sucralfate 0.5 gm 01/21/21 16:30 01/28/21 10:22 Sucralfate Oral Suspension 1 Gm/10 Ml Oral.Susp PO 0.5 gm QIDACHS [facility] Administration Labs CBC & Chem 7: 01/28/21 05:59 01/28/21 05:59 Labs: Laboratory Results - last 24 hr 01/28/21 01/28/21 01/28/21 05:58 05:59 05:59 WBC 12.7 H RBC 3.38 L Hgb 10.3 L Hct 34.1 L MCV 100.9 H MCH 30.5 MCHC 30.2 L RDW 17.1 H Plt Count 330 MPV 9.7 Immature Gran % (Auto) 2.1 H Neut % (Auto) 87.7 H Lymph % (Auto) 4.0 L Carbon % (Auto) 4.8 Eos % (Auto) 1.2 Baso % (Auto) 0.2 Lymph # (Auto) 0.5 L Carbon # (Auto) 0.6 Eos # (Auto) 0.2 Baso # (Auto) 0.0 Abs Immat Gran (auto) 0.26 H Absolute Neuts (auto) 11.1 H Absolute Nucleated RBC 0.000 Nucleated RBC % (auto) 0.0 VBG pH 7.36 VBG pCO2 82 VBG pO2 41 VBG HCO3 47 H VBG O2 Saturation 71.0 VBG Base Excess 18.2 Sodium 141 Potassium 3.5 Chloride 98 Carbon Dioxide 42 H* Anion Gap 5 L BUN 14 Creatinine 0.58 Estim Creat Clear Calc 108.6 Estimated GFR > 60 Random Glucose 126 H Calcium 8.4 Phosphorus 3.2 Magnesium 1.7 Albumin 2.7 L Microbiology Microbiology Results: Microbiology 01/24/21 15:08 Gram Stain - Final Gallbladder Fluid Routine Culture - Final Enterococcus faecium Anaerobic Culture - Preliminary Culture in progress. Quality Stroke Does the patient have a stroke diagnosis?: No VTE Prior VTE?: Yes VTE Risk Level:: Medical - moderate - high VTE Device Contraindication: N/A - Device Ordered VTE Drug Contraindication: Treatment Not Tolerated Assessment and Plan (1) Acalculous cholecystitis: Status: Acute Assessment and Plan: 75-year-old lady with underlying diabetes mellitus, morbid obesity, ANITA noncompliant with CPAP, hypertension, AFib on Eliquis, CAD, anxiety, with recent admission for AFib requiring cardioversion, admitted on December 13 with dyspnea, nausea, and vomiting, treated for hyponatremia and congestive heart failure, also noted to have esophageal stricture, status post EGD on 12/24 with balloon dilatation, further hospital course complicated by acute on chronic hypoxic and hypercapnic respiratory failure, with what appears to have been a bradycardic episode with possible cardiac arrest on 12/27, status post 10 minutes of CPR, intubated during resuscitation, attempting to talk after return of spontaneous circulation, thus did not undergo hypothermia. Extubated on 12/29, requiring right-sided chest tube on 12/30 for right hemothorax, re-intubated on 12/30 for worsening respiratory status, extubated 01/04/2021. Required re-intubation on 01/05/2021 secondary to recurrent aspirations. Right chest tube removed on 01/08/2021. Status post tracheostomy on 01/08/2021. Parenteral gastrostomy on 01/13/2021. Acute upper GI bleed on 01/14/2021 status post EGD identifying a gastric source. Also, acalculous cholecystitis requiring placement of percutaneous cholecystostomy on 01/24/2021, now growing VRE. downgraded to medical floor 01/27/21. acute on chronic hypoxic and hypercapneic respiratory failure s/p tracheostomy 01/08/21 gtube 01/13/21 advance feeds as tolerated acute cholecystectomy s/p perc. cholecystsotomy 01/24 fluid growing VRE continue zyvox acute on chronic diastolic chf iv lasix, diamox afib dig, lopressor no a/c due to gi bleed acute blood loss anemia stable dispo - plan for LTAC
--- NOTE | 2021-01-28 12:18 | PC.NURSE ---
0800 FiO2 decreased to 28% on trach collar as SaO2 was 100% w/ FiO2 98%, FiO2 28% SaO2 was 95%. At 1200 pt bradying down to 38 w/ SaO2 81%, pt was pale, aroused to voice, suctioned x3 through trach and new disposable cannula placed, FiO2 increased to 60%, right side lungs very dim. MD aware and increasing diuretic dose. HR now 50-70 afib. will hold afternoon diltiazem dose. XRAY obtained and showing increased right pleural effusion.
[2021-01-29] VITALS (15 sets, daily range): BP systolic 117–137; BP diastolic 58–72; PULSE 51–97; RESP 17–19; TEMP 35.9–36.8; O2SAT 96–98
[2021-01-29] MEDS: Heparin Sodium,Porcine 5,000 UNIT/ML VIAL 5000 UNIT SUBCUT ×3 (01:44→18:13)
[2021-01-29 05:11] LABS: Hematocrit 34.7 % (37-47); Hemoglobin 10.4 g/dl (12.0-16.0); Mean Corpuscular Hemoglobin 30.3 pg (27.0-33.0); Mean Corpuscular Volume 101.2 fL (80-98); Mean Platelet Volume 9.7 fL (9.4-12.3); Platelet Count 330 X10*3/uL (160-400); Red Blood Count 3.43 X10*6/uL (4.20-5.50); White Blood Count 14.3 X10*3/uL (4.8-10.8)
[2021-01-29 05:49] LABS: Anion Gap 8 (12-20); Blood Urea Nitrogen 14 mg/dL (9-16); Calcium 8.3 mg/dL (8.4-10.2); Carbon Dioxide 41 mmol/L (22-29); Chloride 96 mmol/L (96-108); Creatinine Clr Calc Pharmacy 110.5; Estimated Glomerular Filt Rate > 60; Glucose Fasting 118 mg/dL (60-99); Potassium 3.4 mmol/L (3.3-5.1); Sodium 142 mmol/L (135-145)
[2021-01-29] MEDS: Spironolactone 25 MG TABLET 12.5 MG PO (09:34)
[2021-01-29] MEDS: Metoprolol Tartrate 50 MG TABLET 100 MG G-TUBE ×2 (09:35→21:09)
[2021-01-29] MEDS: dilTIAZem HCL 30 MG TABLET 60 MG PO ×4 (09:36→21:09)
[2021-01-29] MEDS: Digoxin 0.125 MG TABLET PO (09:37)
[2021-01-29] MEDS: Chlorhexidine Gluc Oral Rinse 15 ML MOUTHWASH BUCCAL ×3 (10:05→21:08)
[2021-01-29] MEDS: Furosemide 20 MG/2 ML VIAL IVPUSH ×2 (10:14→18:11)
[2021-01-29] MEDS: Sucralfate Oral Suspension 1 GM/10 ML ORAL.SUSP 0.5 GM PO ×4 (10:14→21:08)
[2021-01-29] MEDS: 0.9 % Sodium Chloride Flush 3 ML SYRINGE IVFLUSH ×2 (10:14→16:30)
[2021-01-29] MEDS: Linezolid/D5W 600 MG/300 ML PIGGYBACK 300 MG IV ×2 (10:18→21:07)
--- NOTE | 2021-01-29 10:25 | HO.PM.IMPN ---
Subjective Subjective Date of Service: 01/29/21 Interval History: no complaints Cardiovascular Cardiovascular: Reports no additional cardiovascular complaints Gastrointestinal Gastrointestinal: Reports no additional gastrointestinal complaints Physical Exam Vital Signs: Vital Signs: Last Vital Signs Temp 97.5 F 01/29/21 07:23 Pulse 74 01/29/21 09:37 Resp 18 01/29/21 07:23 BP 118/72 01/29/21 09:36 Pulse Ox 98 01/29/21 07:23 Oxygen Flow Rate 2 12/26/20 15:00 Body Mass Index 39.2 General: AO X 3, ill appearing, trache, peg Resp: diminished CVS: S1,S2,RRR GI: soft, non tender, non distended Neuro: motor grossly intact Psych: appropriate affect Objective Data Current Medications Generic Name Dose Route Start Last Admin Trade Name Freq PRN Reason Stop Dose Admin Chlorhexidine Gluconate 15 ml 01/05/21 15:00 01/29/21 10:05 Chlorhexidine Gluc Oral Rinse 15 Ml Mouthwash BUCCAL 15 ml TID DEE Administration Digoxin 0.125 mg 01/19/21 17:30 01/29/21 09:37 Digoxin 0.125 Mg Tablet PO 0.125 mg DAILY DEE Administration Diltiazem HCl 60 mg 01/23/21 09:00 01/29/21 09:36 Diltiazem Hcl 30 Mg Tablet PO 60 mg QID DEE Administration Protocol Furosemide 20 mg 01/28/21 18:00 01/29/21 10:14 Furosemide 20 Mg/2 Ml Vial IVPUSH 20 mg BID@0900,1800 DEE Administration Protocol Heparin Sodium (Porcine) 5,000 unit 01/25/21 10:00 01/29/21 09:38 Heparin Sodium,Porcine 5,000 Unit/Ml Vial SUBCUT 5,000 unit Q8H DEE Administration Linezolid 600 mg in 300 mls @ 300 mls/hr 01/27/21 08:30 01/29/21 10:18 Zyvox/D5w IV 300 mls/hr Q12H DEE Administration Metoprolol Tartrate 100 mg 01/19/21 09:00 01/29/21 09:35 Metoprolol Tartrate 50 Mg Tablet G-TUBE 100 mg BID DEE Administration Protocol Nystatin 1 appl 01/09/21 17:00 01/28/21 21:31 Nystatin Powder 15 Gm Bottle TOPICAL 1 appl TID DEE Administration Protocol Sodium Chloride 3 ml 12/14/20 00:00 01/29/21 10:14 0.9 % Sodium Chloride Flush 3 Ml Syringe IVFLUSH 3 ml QSHIFT DEE Administration Spironolactone 12.5 mg 01/21/21 15:30 01/29/21 09:34 Spironolactone 25 Mg Tablet PO 12.5 mg DAILY DEE Administration Protocol Sucralfate 0.5 gm 01/21/21 16:30 01/29/21 10:14 Sucralfate Oral Suspension 1 Gm/10 Ml Oral.Susp PO 0.5 gm QIDACHS [facility] Administration Labs CBC & Chem 7: 01/29/21 04:57 01/29/21 04:57 Labs: Laboratory Results - last 24 hr 01/29/21 01/29/21 04:57 04:57 WBC 14.3 H RBC 3.43 L Hgb 10.4 L Hct 34.7 L MCV 101.2 H MCH 30.3 MCHC 30.0 L RDW 17.0 H Plt Count 330 MPV 9.7 Absolute Nucleated RBC 0.000 Nucleated RBC % (auto) 0.0 Sodium 142 Potassium 3.4 Chloride 96 Carbon Dioxide 41 H* Anion Gap 8 L BUN 14 Creatinine 0.57 Estim Creat Clear Calc 110.5 Estimated GFR > 60 Fasting Glucose 118 H Calcium 8.3 L Microbiology Microbiology Results: Microbiology 01/24/21 15:08 Gram Stain - Final Gallbladder Fluid Routine Culture - Final Enterococcus faecium Anaerobic Culture - Final Quality Stroke Does the patient have a stroke diagnosis?: No VTE Prior VTE?: Yes VTE Risk Level:: Medical - moderate - high VTE Device Contraindication: N/A - Device Ordered VTE Drug Contraindication: Treatment Not Tolerated Assessment and Plan (1) Acalculous cholecystitis: Status: Acute Assessment and Plan: 75-year-old lady with underlying diabetes mellitus, morbid obesity, ANITA noncompliant with CPAP, hypertension, AFib on Eliquis, CAD, anxiety, with recent admission for AFib requiring cardioversion, admitted on December 13 with dyspnea, nausea, and vomiting, treated for hyponatremia and congestive heart failure, also noted to have esophageal stricture, status post EGD on 12/24 with balloon dilatation, further hospital course complicated by acute on chronic hypoxic and hypercapnic respiratory failure, with what appears to have been a bradycardic episode with possible cardiac arrest on 12/27, status post 10 minutes of CPR, intubated during resuscitation, attempting to talk after return of spontaneous circulation, thus did not undergo hypothermia. Extubated on 12/29, requiring right-sided chest tube on 12/30 for right hemothorax, re-intubated on 12/30 for worsening respiratory status, extubated 01/04/2021. Required re-intubation on 01/05/2021 secondary to recurrent aspirations. Right chest tube removed on 01/08/2021. Status post tracheostomy on 01/08/2021. Parenteral gastrostomy on 01/13/2021. Acute upper GI bleed on 01/14/2021 status post EGD identifying a gastric source. Also, acalculous cholecystitis requiring placement of percutaneous cholecystostomy on 01/24/2021, now growing VRE. downgraded to medical floor 01/27/21. acute on chronic hypoxic and hypercapneic respiratory failure s/p tracheostomy 01/08/21 gtube 01/13/21 advance feeds as tolerated (was decreased due to residuals) frequent suctioning acute cholecystectomy s/p perc. cholecystsotomy 01/24 fluid growing VRE continue zyvox acute on chronic diastolic chf iv lasix - increased to 20mg bid, diamox afib dig, lopressor no a/c due to gi bleed acute blood loss anemia stable dispo - plan for LTAC
--- NOTE | 2021-01-29 11:23 | MHC.CLN ---
F/U PT'S TF WAS ON HOLD BRIEFLY 01/28 R/T HIGH RESIDUALS PER NSG TF RESTARTED 2129 LAST NIGHT AT 20CC/HR JEVITY CURRENTLY RUNNING AT 30CC/HR WITH 240CC FREE WATER FLUSHES Q SHIFT PER NSG WITH SCANT RESIDUALS DISCUSSED WITH NURSE ART WHO IS WORKING ON INCREASING FORMULA TO MAX GOAL RATE JEVITY AT 55CC/HR WITH 240CC FREE WATER FLUSHES Q SHIFT TO PROVIDE 1399KCALS (24KCALS/KG BASED ON IBW), 58G PROTEIN (.98G/KG), 1822CC TOTAL WATER FROM FORMULA AND FLUSHES (31CC/KG) BASED ON IBW MONITOR TOLERANCE, RESIDUALS AND LYTES FOLLOWING
--- NOTE | 2021-01-29 11:55 | MHC.CM.PN ---
Per discussion with care team at rounds: pt is not at goal rate of feeding 55ml/hr but is showing improvement by way of lessening residuals and tolerance/absorption of feeding. RD discussed with pt's RN and MD goals for today: continue Jevity and slowly advance feeding rate - currently at 35ml/hr. Clinical updates remitted to JAKE re: above. MD states no change in care plans from 01/28 CXR f/u. CM to follow for transfer.
--- NOTE | 2021-01-29 13:37 | PM.IDPN ---
Subjective Subjective Date of Service: 01/29/21 Interval History: she has no complaints she has VRE wound Critical Care Time (minutes): 15 Objective Data Labs CBC & Chem 7: 01/29/21 04:57 01/29/21 04:57 Labs: Laboratory Results - last 24 hr 01/29/21 01/29/21 04:57 04:57 WBC 14.3 H RBC 3.43 L Hgb 10.4 L Hct 34.7 L MCV 101.2 H MCH 30.3 MCHC 30.0 L RDW 17.0 H Plt Count 330 MPV 9.7 Absolute Nucleated RBC 0.000 Nucleated RBC % (auto) 0.0 Sodium 142 Potassium 3.4 Chloride 96 Carbon Dioxide 41 H* Anion Gap 8 L BUN 14 Creatinine 0.57 Estim Creat Clear Calc 110.5 Estimated GFR > 60 Fasting Glucose 118 H Calcium 8.3 L Microbiology Microbiology Results: Microbiology 01/24/21 15:08 Gallbladder Fluid Gram Stain - Final 01/24/21 15:08 Gallbladder Fluid Routine Culture - Final Enterococcus faecium 01/24/21 15:08 Gallbladder Fluid Anaerobic Culture - Final 01/19/21 04:06 Blood - Venous Blood Culture - Final No growth after 5 days. 01/19/21 04:02 Blood - Venous Blood Culture - Final No growth after 5 days. 01/19/21 Unknown Urine [place] Urine Culture - Final Gram positive cocci Yeast 01/19/21 03:35 Sputum - Suctioned Gram Stain - Final 01/19/21 03:35 Sputum - Suctioned Sputum Culture - Final 01/15/21 11:04 Blood - Venous Blood Culture - Final No growth after 5 days. 01/15/21 11:04 Blood - Venous Blood Culture - Final No growth after 5 days. 01/10/21 06:11 Blood - Venous Blood Culture - Final No growth after 5 days. 01/10/21 06:11 Blood - Venous Blood Culture - Final No growth after 5 days. 01/12/21 10:41 Sputum - Suctioned Gram Stain - Final 01/12/21 10:41 Sputum - Suctioned Sputum Culture - Final 12/30/20 06:29 Blood - Venous Blood Culture - Final No growth after 5 days. 12/30/20 06:20 Blood - Venous Blood Culture - Final No growth after 5 days. 12/31/20 15:59 Sputum - Suctioned Gram Stain - Final 12/31/20 15:59 Sputum - Suctioned Sputum Culture - Final 12/30/20 06:37 Kidney - Jones Catheter Urine Culture - Final No growth. 12/27/20 17:56 Sputum - Suctioned Gram Stain - Final 12/27/20 17:56 Sputum - Suctioned Sputum Culture - Final 12/27/20 17:53 Urine clean catch - Clean Catch Midstream Urine Culture - Final No growth. Physical Exam Vital Signs: Vital Signs: Last Vital Signs Temp 97.5 F 01/29/21 12:00 Pulse 97 01/29/21 12:45 Resp 18 01/29/21 12:00 BP 129/63 01/29/21 12:45 Pulse Ox 96 01/29/21 12:00 Oxygen Flow Rate 2 12/26/20 15:00 Body Mass Index 39.2 Const: General: cooperative Resp: Effort & Inspection: normal respiratory effort Cardio: Rate: regular rate Rhythm: regular rhythm GI: Palpation (GI): Soft to palpation and nontender Skin: General skin exam: no rashes or lesions noted Assessment and Plan Assessment and plan (1) Acalculous cholecystitis: Problem details: She has VRE She is on Linezolid Status: Acute Assessment and Plan: Complete 14 day total linezolid,may give po Time Spent With Patient Time: Total time spent is greater than 50% in coordination of care (as documented) at patient's floor/unit and/or counseling patient: Time with patient: 15 - 24 minutes
[2021-01-29] MEDS: Nystatin Powder 15 GM BOTTLE 1 APPL TOPICAL ×3 (16:44→21:08)
[2021-01-30] VITALS (14 sets, daily range): BP systolic 106–140; BP diastolic 51–82; PULSE 58–98; RESP 16–20; TEMP 35.7–36.6; O2SAT 84–100
[2021-01-30] MEDS: Heparin Sodium,Porcine 5,000 UNIT/ML VIAL 5000 UNIT SUBCUT ×3 (03:22→17:32)
[2021-01-30 07:13] LABS: Hemoglobin 10.6 g/dl (12.0-16.0); Mean Corpuscular HGB Conc 30.3 g/dl (31.0-35.0); Mean Corpuscular Hemoglobin 30.3 pg (27.0-33.0); Mean Platelet Volume 10.4 fL (9.4-12.3); Platelet Count 345 X10*3/uL (160-400); Red Cell Distribution Width 16.6 % (11.0-16.0); White Blood Count 12.6 X10*3/uL (4.8-10.8)
[2021-01-30 07:53] LABS: Anion Gap 8 (12-20); Blood Urea Nitrogen 14 mg/dL (9-16); Calcium 8.4 mg/dL (8.4-10.2); Carbon Dioxide 45 mmol/L (22-29); Chloride 92 mmol/L (96-108); Creatinine Clr Calc Pharmacy 114.5; Estimated Glomerular Filt Rate > 60; Glucose Fasting 122 mg/dL (60-99); Potassium 3.2 mmol/L (3.3-5.1); Sodium 142 mmol/L (135-145)
[2021-01-30] MEDS: Chlorhexidine Gluc Oral Rinse 15 ML MOUTHWASH BUCCAL ×3 (09:01→22:16)
[2021-01-30] MEDS: 0.9 % Sodium Chloride Flush 3 ML SYRINGE IVFLUSH ×2 (09:01→16:34)
[2021-01-30] MEDS: Furosemide 20 MG/2 ML VIAL IVPUSH (09:01)
[2021-01-30] MEDS: Sucralfate Oral Suspension 1 GM/10 ML ORAL.SUSP 0.5 GM PO ×4 (09:01→22:10)
[2021-01-30] MEDS: dilTIAZem HCL 30 MG TABLET 60 MG PO ×4 (09:02→22:16)
[2021-01-30] MEDS: Metoprolol Tartrate 50 MG TABLET 100 MG G-TUBE ×2 (09:02→22:10)
[2021-01-30] MEDS: Spironolactone 25 MG TABLET 12.5 MG PO (09:02)
[2021-01-30] MEDS: Digoxin 0.125 MG TABLET PO (09:03)
[2021-01-30] MEDS: Nystatin Powder 15 GM BOTTLE 1 APPL TOPICAL ×2 (09:03→16:35)
[2021-01-30] MEDS: Linezolid/D5W 600 MG/300 ML PIGGYBACK 300 MG IV ×2 (09:03→21:52)
[2021-01-30] MEDS: Potassium Chloride Packet 20 MEQ PACKET 40 MEQ G-TUBE (12:15)
--- NOTE | 2021-01-30 12:18 | HO.PM.IMPN ---
Subjective Subjective Date of Service: 01/30/21 Interval History: secreations Cardiovascular Cardiovascular: Reports no additional cardiovascular complaints Respiratory Respiratory: Reports no additional respiratory complaints Physical Exam Vital Signs: Vital Signs: Last Vital Signs Temp 96.2 F L 01/30/21 12:11 Pulse 66 01/30/21 12:11 Resp 18 01/30/21 12:11 BP 106/51 L 01/30/21 12:11 Pulse Ox 98 01/30/21 11:56 Oxygen Flow Rate 2 12/26/20 15:00 Body Mass Index 39.2 General: AO X 3, ill appearing, trache, peg Resp: diminished CVS: S1,S2,RRR GI: soft, non tender, non distended Neuro: motor grossly intact Psych: appropriate affect Objective Data Current Medications Generic Name Dose Route Start Last Admin Trade Name Freq PRN Reason Stop Dose Admin Acetazolamide 250 mg 01/30/21 21:00 Acetazolamide Sodium 500 Mg Vial IVPUSH 01/31/21 21:01 BID DEE Chlorhexidine Gluconate 15 ml 01/05/21 15:00 01/30/21 09:01 Chlorhexidine Gluc Oral Rinse 15 Ml Mouthwash BUCCAL 15 ml TID DEE Administration Digoxin 0.125 mg 01/19/21 17:30 01/30/21 09:03 Digoxin 0.125 Mg Tablet PO 0.125 mg DAILY DEE Administration Diltiazem HCl 60 mg 01/23/21 09:00 01/30/21 09:02 Diltiazem Hcl 30 Mg Tablet PO 60 mg QID DEE Administration Protocol Heparin Sodium (Porcine) 5,000 unit 01/25/21 10:00 01/30/21 09:03 Heparin Sodium,Porcine 5,000 Unit/Ml Vial SUBCUT 5,000 unit Q8H DEE Administration Linezolid 600 mg in 300 mls @ 300 mls/hr 01/27/21 08:30 01/30/21 10:08 Zyvox/D5w IV Infused Q12H DEE Infusion Metoprolol Tartrate 100 mg 01/19/21 09:00 01/30/21 09:02 Metoprolol Tartrate 50 Mg Tablet G-TUBE 100 mg BID DEE Administration Protocol Nystatin 1 appl 01/09/21 17:00 01/30/21 09:03 Nystatin Powder 15 Gm Bottle TOPICAL 1 appl TID DEE Administration Protocol Sodium Chloride 3 ml 12/14/20 00:00 01/30/21 09:01 0.9 % Sodium Chloride Flush 3 Ml Syringe IVFLUSH 3 ml QSHIFT COUNTS INCLUDE 234 BEDS AT THE [facility] Administration Spironolactone 12.5 mg 01/21/21 15:30 01/30/21 09:02 Spironolactone 25 Mg Tablet PO 12.5 mg DAILY COUNTS INCLUDE 234 BEDS AT THE [facility] Administration Protocol Sucralfate 0.5 gm 01/21/21 16:30 01/30/21 12:15 Sucralfate Oral Suspension 1 Gm/10 Ml Oral.Susp PO 0.5 gm QIDACHS COUNTS INCLUDE 234 BEDS AT THE [facility] Administration Labs CBC & Chem 7: 01/30/21 06:07 01/30/21 06:07 Labs: Laboratory Results - last 24 hr 01/30/21 01/30/21 06:07 06:07 WBC 12.6 H RBC 3.50 L Hgb 10.6 L Hct 35.0 L MCV 100.0 H MCH 30.3 MCHC 30.3 L RDW 16.6 H Plt Count 345 MPV 10.4 Absolute Nucleated RBC 0.000 Nucleated RBC % (auto) 0.0 Sodium 142 Potassium 3.2 L Chloride 92 L Carbon Dioxide 45 H* Anion Gap 8 L BUN 14 Creatinine 0.55 Estim Creat Clear Calc 114.5 Estimated GFR > 60 Fasting Glucose 122 H Calcium 8.4 Microbiology Microbiology Results: Microbiology 01/24/21 15:08 Gram Stain - Final Gallbladder Fluid Routine Culture - Final Enterococcus faecium Anaerobic Culture - Final Quality Stroke Does the patient have a stroke diagnosis?: No VTE Prior VTE?: Yes VTE Risk Level:: Medical - moderate - high VTE Device Contraindication: N/A - Device Ordered VTE Drug Contraindication: Treatment Not Tolerated Assessment and Plan (1) Acalculous cholecystitis: Status: Acute Assessment and Plan: 75-year-old lady with underlying diabetes mellitus, morbid obesity, ANITA noncompliant with CPAP, hypertension, AFib on Eliquis, CAD, anxiety, with recent admission for AFib requiring cardioversion, admitted on December 13 with dyspnea, nausea, and vomiting, treated for hyponatremia and congestive heart failure, also noted to have esophageal stricture, status post EGD on 12/24 with balloon dilatation, further hospital course complicated by acute on chronic hypoxic and hypercapnic respiratory failure, with what appears to have been a bradycardic episode with possible cardiac arrest on 12/27, status post 10 minutes of CPR, intubated during resuscitation, attempting to talk after return of spontaneous circulation, thus did not undergo hypothermia. Extubated on 12/29, requiring right-sided chest tube on 12/30 for right hemothorax, re-intubated on 12/30 for worsening respiratory status, extubated 01/04/2021. Required re-intubation on 01/05/2021 secondary to recurrent aspirations. Right chest tube removed on 01/08/2021. Status post tracheostomy on 01/08/2021. Parenteral gastrostomy on 01/13/2021. Acute upper GI bleed on 01/14/2021 status post EGD identifying a gastric source. Also, acalculous cholecystitis requiring placement of percutaneous cholecystostomy on 01/24/2021, now growing VRE. downgraded to medical floor 01/27/21. acute on chronic hypoxic and hypercapneic respiratory failure s/p tracheostomy 01/08/21 gtube 01/13/21 advance feeds as tolerated (now on 40cc/hr) frequent suctioning acute cholecystectomy s/p perc. cholecystsotomy 01/24 fluid growing VRE continue zyvox total 14 days (day 11/18), end february 09, 2021 acute on chronic diastolic chf iv lasix 20mg bid, diamox afib dig, lopressor no a/c due to gi bleed acute blood loss anemia stable dispo - plan for LTAC
[2021-01-30] MEDS: acetaZOLAMIDE sodium 500 MG VIAL 250 MG IVPUSH (22:09)
[2021-01-31] VITALS (10 sets, daily range): BP systolic 116–143; BP diastolic 60–72; PULSE 62–96; RESP 18–20; TEMP 36.1–36.6; O2SAT 92–99
[2021-01-31] MEDS: Heparin Sodium,Porcine 5,000 UNIT/ML VIAL 5000 UNIT SUBCUT ×3 (02:58→17:11)
[2021-01-31] MEDS: Nystatin Powder 15 GM BOTTLE 1 APPL TOPICAL ×4 (02:59→20:37)
[2021-01-31] MEDS: 0.9 % Sodium Chloride Flush 3 ML SYRINGE IVFLUSH ×4 (02:59→20:37)
[2021-01-31 06:41] LABS: Hemoglobin 10.4 g/dl (12.0-16.0); Mean Corpuscular HGB Conc 30.6 g/dl (31.0-35.0); Mean Corpuscular Volume 101.2 fL (80-98); Mean Platelet Volume 10.4 fL (9.4-12.3); Platelet Count 318 X10*3/uL (160-400); Red Blood Count 3.36 X10*6/uL (4.20-5.50); Red Cell Distribution Width 16.8 % (11.0-16.0); White Blood Count 11.2 X10*3/uL (4.8-10.8)
[2021-01-31 07:09] LABS: Anion Gap 8 (12-20); Blood Urea Nitrogen 12 mg/dL (9-16); Calcium 8.4 mg/dL (8.4-10.2); Carbon Dioxide 45 mmol/L (22-29); Chloride 93 mmol/L (96-108); Creatinine Clr Calc Pharmacy 118.8; Estimated Glomerular Filt Rate > 60; Glucose Fasting 108 mg/dL (60-99); Potassium 3.5 mmol/L (3.3-5.1); Sodium 142 mmol/L (135-145)
[2021-01-31] MEDS: Chlorhexidine Gluc Oral Rinse 15 ML MOUTHWASH BUCCAL ×3 (09:09→20:36)
[2021-01-31] MEDS: acetaZOLAMIDE sodium 500 MG VIAL 250 MG IVPUSH ×2 (09:09→20:36)
[2021-01-31] MEDS: Linezolid/D5W 600 MG/300 ML PIGGYBACK 300 MG IV ×2 (09:09→20:35)
[2021-01-31] MEDS: Sucralfate Oral Suspension 1 GM/10 ML ORAL.SUSP 0.5 GM PO ×4 (09:09→20:37)
[2021-01-31] MEDS: dilTIAZem HCL 30 MG TABLET 60 MG PO ×4 (09:10→20:36)
[2021-01-31] MEDS: Metoprolol Tartrate 50 MG TABLET 100 MG G-TUBE ×2 (09:10→20:36)
[2021-01-31] MEDS: Spironolactone 25 MG TABLET 12.5 MG PO (09:10)
[2021-01-31] MEDS: Digoxin 0.125 MG TABLET PO (09:11)
--- NOTE | 2021-01-31 10:36 | HO.PM.IMPN ---
Subjective Subjective Date of Service: 01/31/21 Interval History: tolerating 55cc/hr Cardiovascular Cardiovascular: Reports no additional cardiovascular complaints Respiratory Respiratory: Reports no additional respiratory complaints Physical Exam Vital Signs: Vital Signs: Last Vital Signs Temp 97 F 01/31/21 07:39 Pulse 92 01/31/21 09:11 Resp 20 01/31/21 07:39 BP 140/60 H 01/31/21 09:10 Pulse Ox 98 01/31/21 07:39 Oxygen Flow Rate 2 12/26/20 15:00 Body Mass Index 39.2 General: AO X 3, chronically ill appearing, trache, peg Resp: diminished CVS: S1,S2,RRR GI: soft, non tender, non distended Neuro: motor grossly intact Psych: appropriate affect Objective Data Current Medications Generic Name Dose Route Start Last Admin Trade Name Freq PRN Reason Stop Dose Admin Acetazolamide 250 mg 01/30/21 21:00 01/31/21 09:09 Acetazolamide Sodium 500 Mg Vial IVPUSH 01/31/21 21:01 250 mg BID DEE Administration Chlorhexidine Gluconate 15 ml 01/05/21 15:00 01/31/21 09:09 Chlorhexidine Gluc Oral Rinse 15 Ml Mouthwash BUCCAL 15 ml TID DEE Administration Digoxin 0.125 mg 01/19/21 17:30 01/31/21 09:11 Digoxin 0.125 Mg Tablet PO 0.125 mg DAILY DEE Administration Diltiazem HCl 60 mg 01/23/21 09:00 01/31/21 09:10 Diltiazem Hcl 30 Mg Tablet PO 60 mg QID DEE Administration Protocol Heparin Sodium (Porcine) 5,000 unit 01/25/21 10:00 01/31/21 09:11 Heparin Sodium,Porcine 5,000 Unit/Ml Vial SUBCUT 5,000 unit Q8H DEE Administration Linezolid 600 mg in 300 mls @ 300 mls/hr 01/27/21 08:30 01/31/21 10:16 Zyvox/D5w IV Infused Q12H DEE Infusion Metoprolol Tartrate 100 mg 01/19/21 09:00 01/31/21 09:10 Metoprolol Tartrate 50 Mg Tablet G-TUBE 100 mg BID DEE Administration Protocol Nystatin 1 appl 01/09/21 17:00 01/31/21 09:11 Nystatin Powder 15 Gm Bottle TOPICAL 1 appl TID DEE Administration Protocol Sodium Chloride 3 ml 12/14/20 00:00 01/31/21 09:11 0.9 % Sodium Chloride Flush 3 Ml Syringe IVFLUSH 3 ml QSHIFT DEE Administration Spironolactone 12.5 mg 01/21/21 15:30 01/31/21 09:10 Spironolactone 25 Mg Tablet PO 12.5 mg DAILY DEE Administration Protocol Sucralfate 0.5 gm 01/21/21 16:30 01/31/21 09:09 Sucralfate Oral Suspension 1 Gm/10 Ml Oral.Susp PO 0.5 gm QIDACHS [facility] Administration Labs CBC & Chem 7: 01/31/21 05:52 01/31/21 05:52 Labs: Laboratory Results - last 24 hr 01/31/21 01/31/21 05:52 05:52 WBC 11.2 H RBC 3.36 L Hgb 10.4 L Hct 34.0 L MCV 101.2 H MCH 31.0 MCHC 30.6 L RDW 16.8 H Plt Count 318 MPV 10.4 Absolute Nucleated RBC 0.000 Nucleated RBC % (auto) 0.0 Sodium 142 Potassium 3.5 Chloride 93 L Carbon Dioxide 45 H* Anion Gap 8 L BUN 12 Creatinine 0.53 Estim Creat Clear Calc 118.8 Estimated GFR > 60 Fasting Glucose 108 H Calcium 8.4 Quality Stroke Does the patient have a stroke diagnosis?: No VTE Prior VTE?: Yes VTE Risk Level:: Medical - moderate - high VTE Device Contraindication: N/A - Device Ordered VTE Drug Contraindication: Treatment Not Tolerated Assessment and Plan (1) Acalculous cholecystitis: Status: Acute Assessment and Plan: 75-year-old lady with underlying diabetes mellitus, morbid obesity, ANITA noncompliant with CPAP, hypertension, AFib on Eliquis, CAD, anxiety, with recent admission for AFib requiring cardioversion, admitted on December 13 with dyspnea, nausea, and vomiting, treated for hyponatremia and congestive heart failure, also noted to have esophageal stricture, status post EGD on 12/24 with balloon dilatation, further hospital course complicated by acute on chronic hypoxic and hypercapnic respiratory failure, with what appears to have been a bradycardic episode with possible cardiac arrest on 12/27, status post 10 minutes of CPR, intubated during resuscitation, attempting to talk after return of spontaneous circulation, thus did not undergo hypothermia. Extubated on 12/29, requiring right-sided chest tube on 12/30 for right hemothorax, re-intubated on 12/30 for worsening respiratory status, extubated 01/04/2021. Required re-intubation on 01/05/2021 secondary to recurrent aspirations. Right chest tube removed on 01/08/2021. Status post tracheostomy on 01/08/2021. Parenteral gastrostomy on 01/13/2021. Acute upper GI bleed on 01/14/2021 status post EGD identifying a gastric source. Also, acalculous cholecystitis requiring placement of percutaneous cholecystostomy on 01/24/2021, now growing VRE. downgraded to medical floor 01/27/21. acute on chronic hypoxic and hypercapneic respiratory failure s/p tracheostomy 01/08/21 gtube 01/13/21 advance feeds as tolerated (now on 55cc/hr) frequent suctioning acute cholecystectomy s/p perc. cholecystsotomy 01/24 fluid growing VRE continue zyvox total 14 days (day 12/18), end february 09, 2021 acute on chronic diastolic chf iv lasix 20mg bid, diamox afib dig, lopressor no a/c due to gi bleed acute blood loss anemia stable dispo - plan for LTAC
[2021-02-01] VITALS (14 sets, daily range): BP systolic 114–134; BP diastolic 58–70; PULSE 66–97; RESP 18–20; TEMP 36.1–37.6; O2SAT 97–99
[2021-02-01] MEDS: Heparin Sodium,Porcine 5,000 UNIT/ML VIAL 5000 UNIT SUBCUT ×3 (03:27→17:39)
[2021-02-01 06:51] LABS: Hematocrit 33.9 % (37-47); Hemoglobin 10.3 g/dl (12.0-16.0); Mean Corpuscular HGB Conc 30.4 g/dl (31.0-35.0); Mean Corpuscular Hemoglobin 30.5 pg (27.0-33.0); Mean Corpuscular Volume 100.3 fL (80-98); Mean Platelet Volume 10.8 fL (9.4-12.3); Platelet Count 280 X10*3/uL (160-400); Red Blood Count 3.38 X10*6/uL (4.20-5.50); Red Cell Distribution Width 16.7 % (11.0-16.0); White Blood Count 9.2 X10*3/uL (4.8-10.8)
[2021-02-01 07:37] LABS: Anion Gap 8 (12-20); Blood Urea Nitrogen 10 mg/dL (9-16); Calcium 8.4 mg/dL (8.4-10.2); Carbon Dioxide 43 mmol/L (22-29); Chloride 93 mmol/L (96-108); Creatinine Clr Calc Pharmacy 116.6; Estimated Glomerular Filt Rate > 60; Glucose Fasting 116 mg/dL (60-99); Potassium 3.4 mmol/L (3.3-5.1); Sodium 141 mmol/L (135-145)
[2021-02-01] MEDS: dilTIAZem HCL 30 MG TABLET 60 MG PO ×4 (09:32→20:39)
[2021-02-01] MEDS: Spironolactone 25 MG TABLET 12.5 MG PO (09:32)
[2021-02-01] MEDS: Metoprolol Tartrate 50 MG TABLET 100 MG G-TUBE ×2 (09:33→20:38)
[2021-02-01] MEDS: Digoxin 0.125 MG TABLET PO (09:37)
[2021-02-01] MEDS: Sucralfate Oral Suspension 1 GM/10 ML ORAL.SUSP 0.5 GM PO ×4 (09:38→20:38)
[2021-02-01] MEDS: Potassium Chloride Packet 20 MEQ PACKET 40 MEQ G-TUBE (09:52)
--- NOTE | 2021-02-01 09:53 | HO.PM.IMPN ---
Subjective Subjective Date of Service: 02/01/21 Interval History: no complaints Cardiovascular Cardiovascular: Reports no additional cardiovascular complaints Gastrointestinal Gastrointestinal: Reports no additional gastrointestinal complaints Physical Exam Vital Signs: Vital Signs: Last Vital Signs Temp 97.3 F 02/01/21 07:07 Pulse 92 02/01/21 07:07 Resp 20 02/01/21 07:07 BP 123/65 02/01/21 07:07 Pulse Ox 99 02/01/21 07:07 Oxygen Flow Rate 2 12/26/20 15:00 Body Mass Index 39.2 General: AO X 3, chronically ill appearing, trache, peg Resp: diminished CVS: S1,S2,RRR GI: soft, non tender, non distended Neuro: motor grossly intact Psych: appropriate affect Objective Data Current Medications Generic Name Dose Route Start Last Admin Trade Name Freq PRN Reason Stop Dose Admin Acetazolamide 250 mg 02/01/21 21:00 Acetazolamide Sodium 500 Mg Vial IVPUSH 02/02/21 21:01 BID DEE Chlorhexidine Gluconate 15 ml 01/05/21 15:00 01/31/21 20:36 Chlorhexidine Gluc Oral Rinse 15 Ml Mouthwash BUCCAL 15 ml TID DEE Administration Digoxin 0.125 mg 01/19/21 17:30 01/31/21 09:11 Digoxin 0.125 Mg Tablet PO 0.125 mg DAILY DEE Administration Diltiazem HCl 60 mg 01/23/21 09:00 01/31/21 20:36 Diltiazem Hcl 30 Mg Tablet PO 60 mg QID DEE Administration Protocol Heparin Sodium (Porcine) 5,000 unit 01/25/21 10:00 02/01/21 03:27 Heparin Sodium,Porcine 5,000 Unit/Ml Vial SUBCUT 5,000 unit Q8H DEE Administration Linezolid 600 mg in 300 mls @ 300 mls/hr 01/27/21 08:30 01/31/21 22:13 Zyvox/D5w IV Infused Q12H DEE Infusion Metoprolol Tartrate 100 mg 01/19/21 09:00 01/31/21 20:36 Metoprolol Tartrate 50 Mg Tablet G-TUBE 100 mg BID DEE Administration Protocol Nystatin 1 appl 01/09/21 17:00 01/31/21 20:37 Nystatin Powder 15 Gm Bottle TOPICAL 1 appl TID DEE Administration Protocol Sodium Chloride 3 ml 12/14/20 00:00 01/31/21 20:37 0.9 % Sodium Chloride Flush 3 Ml Syringe IVFLUSH 3 ml QSHIFT [facility] Administration Spironolactone 12.5 mg 01/21/21 15:30 01/31/21 09:10 Spironolactone 25 Mg Tablet PO 12.5 mg DAILY [facility] Administration Protocol Sucralfate 0.5 gm 01/21/21 16:30 01/31/21 20:37 Sucralfate Oral Suspension 1 Gm/10 Ml Oral.Susp PO 0.5 gm QIDACHS [facility] Administration Labs CBC & Chem 7: 02/01/21 05:39 02/01/21 05:39 Labs: Laboratory Results - last 24 hr 02/01/21 02/01/21 05:39 05:39 WBC 9.2 RBC 3.38 L Hgb 10.3 L Hct 33.9 L MCV 100.3 H MCH 30.5 MCHC 30.4 L RDW 16.7 H Plt Count 280 MPV 10.8 Absolute Nucleated RBC 0.000 Nucleated RBC % (auto) 0.0 Sodium 141 Potassium 3.4 Chloride 93 L Carbon Dioxide 43 H* Anion Gap 8 L BUN 10 Creatinine 0.54 Estim Creat Clear Calc 116.6 Estimated GFR > 60 Fasting Glucose 116 H Calcium 8.4 Quality Stroke Does the patient have a stroke diagnosis?: No VTE Prior VTE?: Yes VTE Risk Level:: Medical - moderate - high VTE Device Contraindication: N/A - Device Ordered VTE Drug Contraindication: Treatment Not Tolerated Assessment and Plan (1) Acalculous cholecystitis: Status: Acute Assessment and Plan: 75-year-old lady with underlying diabetes mellitus, morbid obesity, ANITA noncompliant with CPAP, hypertension, AFib on Eliquis, CAD, anxiety, with recent admission for AFib requiring cardioversion, admitted on December 13 with dyspnea, nausea, and vomiting, treated for hyponatremia and congestive heart failure, also noted to have esophageal stricture, status post EGD on 12/24 with balloon dilatation, further hospital course complicated by acute on chronic hypoxic and hypercapnic respiratory failure, with what appears to have been a bradycardic episode with possible cardiac arrest on 12/27, status post 10 minutes of CPR, intubated during resuscitation, attempting to talk after return of spontaneous circulation, thus did not undergo hypothermia. Extubated on 12/29, requiring right-sided chest tube on 12/30 for right hemothorax, re-intubated on 12/30 for worsening respiratory status, extubated 01/04/2021. Required re-intubation on 01/05/2021 secondary to recurrent aspirations. Right chest tube removed on 01/08/2021. Status post tracheostomy on 01/08/2021. Parenteral gastrostomy on 01/13/2021. Acute upper GI bleed on 01/14/2021 status post EGD identifying a gastric source. Also, acalculous cholecystitis requiring placement of percutaneous cholecystostomy on 01/24/2021, now growing VRE. downgraded to medical floor 01/27/21. acute on chronic hypoxic and hypercapneic respiratory failure s/p tracheostomy 01/08/21 gtube 01/13/21 tolerating feeds 55cc/hr frequent suctioning acute cholecystectomy s/p perc. cholecystsotomy 01/24 fluid growing VRE continue zyvox total 14 days (day 01/18), end february 09, 2021 acute on chronic diastolic chf diuresed, continue diamox for now afib dig, lopressor no a/c due to gi bleed acute blood loss anemia stable dispo - plan for LTAC
[2021-02-01] MEDS: Chlorhexidine Gluc Oral Rinse 15 ML MOUTHWASH BUCCAL ×3 (09:54→20:38)
[2021-02-01] MEDS: 0.9 % Sodium Chloride Flush 3 ML SYRINGE IVFLUSH ×3 (09:54→20:39)
--- NOTE | 2021-02-01 09:55 | MHC.CLN ---
F/U JEVITY 1.0 CURRENTLY RUNNING AT MAX GOAL RATE OF 55CC/HR WITH 240CC FREE WATER FLUSHES Q SHIFT PROVIDES 1399KCALS (24KCALS/KG BASED ON IBW), 58G PROTEIN (.98G/KG), 1822CC TOTAL WATER FROM FORMULA AND FLUSHES (31CC/KG) BASED ON IBW NUSING REPORTS GOOD TOLERANCE AND LOW RESIDUALS THROUGHOUT WEEKEND MONITOR TOLERANCE, RESIDUALS AND LYTES FOLLOWING
[2021-02-01] MEDS: Linezolid/D5W 600 MG/300 ML PIGGYBACK 300 MG IV ×2 (10:03→20:39)
--- NOTE | 2021-02-01 13:58 | MHC.CM.PN ---
Clinical notes from weekend reviewed: pt able to tolerate TF at goal rate with very little residual. Weekend updates sent to [facility] and followed with a phone call: Gwendolyn states pt looks good and ready to transfer She states she will have a bed available on 02/02. Informed MD who is in agreement: Call placed to pt's dtr/HCP, Lorraine who again, verbalized extreme concerns with pt going so far away She feels pt is not ready to d/c from [facility] citing, critical gallbladder infection (WBC down to 9 today), depression, pain and weakness. She would like pt to remain at [facility] until she is far better and then transfer to a STR close to family. Discussed medical stability, reiterated LTAC resources/criteria, reviewed IMM status. Lorraine requesting a discussion with MD: referrals placed to STR facilities within a 35 mi radius using trach and peg in the specialty search criteria. CM to follow for d/c planning.
--- NOTE | 2021-02-01 14:44 | HO.MIDLINE ---
PICC Line Insertion Midline Removal] Diagnosis: [RESPIRATORY FAILURE] Indication: [NO LONGER NEEDED--PERPHIERAL IV ACCESS] Pertinent Labs: [REVIEWED] Technique: 1. 02/01/2021 2. Removal of midline--Infiltrated 3. Inserted Length: 22Pt8Rd 4. Removal Length: 51Ao1ND Intact 5. Dressing 2x2 applied with teagaderm, no bleeding/redness noted but slight edema no redness. Arm Circumference: [34.5CM at removal]
--- NOTE | 2021-02-01 16:00 | PC.NURSE ---
Skin/wound assessment completed today. Patient found to have intact blisters on bilateral dorsal feet, redness/rash to left inner thigh/groin/buttocks blanchable, small stage 2 on buttocks. Interdry placed in groin/thigh area. Triad applied to buttocks wound. Wound under trach have healed.
[2021-02-01] MEDS: Nystatin Powder 15 GM BOTTLE 1 APPL TOPICAL (17:40)
[2021-02-01] MEDS: acetaZOLAMIDE sodium 500 MG VIAL 250 MG IVPUSH (20:38)
[2021-02-02] VITALS (14 sets, daily range): BP systolic 113–141; BP diastolic 62–77; PULSE 76–94; RESP 16–20; TEMP 35.9–36.6; O2SAT 95–99
[2021-02-02] MEDS: Heparin Sodium,Porcine 5,000 UNIT/ML VIAL 5000 UNIT SUBCUT ×3 (05:37→16:48)
[2021-02-02] MEDS: Spironolactone 25 MG TABLET 12.5 MG PO (10:33)
[2021-02-02] MEDS: dilTIAZem HCL 30 MG TABLET 60 MG PO ×4 (10:34→21:27)
[2021-02-02] MEDS: Metoprolol Tartrate 50 MG TABLET 100 MG G-TUBE ×2 (10:35→21:28)
[2021-02-02] MEDS: Digoxin 0.125 MG TABLET PO (10:35)
[2021-02-02] MEDS: Sucralfate Oral Suspension 1 GM/10 ML ORAL.SUSP 0.5 GM PO ×3 (10:37→21:28)
[2021-02-02] MEDS: Chlorhexidine Gluc Oral Rinse 15 ML MOUTHWASH BUCCAL ×3 (10:38→21:28)
[2021-02-02] MEDS: 0.9 % Sodium Chloride Flush 3 ML SYRINGE IVFLUSH ×2 (10:40→16:55)
[2021-02-02] MEDS: acetaZOLAMIDE sodium 500 MG VIAL 250 MG IVPUSH ×2 (10:41→21:24)
--- NOTE | 2021-02-02 10:51 | P.PNIM_ITS ---
Subjective Subjective Date of Service: 02/02/21 Interval History: no active complaints Cardiovascular Cardiovascular: Reports no additional cardiovascular complaints Respiratory Respiratory: Reports no additional respiratory complaints Physical Exam Vital Signs: Vital Signs: Last Vital Signs Temp 97.5 F 02/02/21 08:00 Pulse 76 02/02/21 08:00 Resp 20 02/02/21 08:00 BP 141/65 H 02/02/21 08:00 Pulse Ox 96 02/02/21 08:00 Oxygen Flow Rate 2 12/26/20 15:00 Body Mass Index 39.2 General: AO X 3, chronically ill appearing, trache, peg Resp: diminished CVS: S1,S2,RRR GI: soft, non tender, non distended Neuro: motor grossly intact Psych: appropriate affect Objective Data Current Medications Generic Name Dose Route Start Last Admin Trade Name Freq PRN Reason Stop Dose Admin Acetazolamide 250 mg 02/01/21 21:00 02/01/21 20:38 Acetazolamide Sodium 500 Mg Vial IVPUSH 02/02/21 21:01 250 mg BID DEE Administration Chlorhexidine Gluconate 15 ml 01/05/21 15:00 02/01/21 20:38 Chlorhexidine Gluc Oral Rinse 15 Ml Mouthwash BUCCAL 15 ml TID DEE Administration Digoxin 0.125 mg 01/19/21 17:30 02/01/21 09:37 Digoxin 0.125 Mg Tablet PO 0.125 mg DAILY DEE Administration Diltiazem HCl 60 mg 01/23/21 09:00 02/01/21 20:39 Diltiazem Hcl 30 Mg Tablet PO 60 mg QID DEE Administration Protocol Heparin Sodium (Porcine) 5,000 unit 01/25/21 10:00 02/02/21 05:37 Heparin Sodium,Porcine 5,000 Unit/Ml Vial SUBCUT 5,000 unit Q8H DEE Administration Linezolid 600 mg in 300 mls @ 300 mls/hr 01/27/21 08:30 02/01/21 21:50 Zyvox/D5w IV Infused Q12H DEE Infusion Metoprolol Tartrate 100 mg 01/19/21 09:00 02/01/21 20:38 Metoprolol Tartrate 50 Mg Tablet G-TUBE 100 mg BID DEE Administration Protocol Nystatin 1 appl 01/09/21 17:00 02/01/21 21:22 Nystatin Powder 15 Gm Bottle TOPICAL Not Given TID DEE Protocol Sodium Chloride 3 ml 12/14/20 00:00 02/01/21 20:39 0.9 % Sodium Chloride Flush 3 Ml Syringe IVFLUSH 3 ml QSHIFT DEE Administration Spironolactone 12.5 mg 01/21/21 15:30 02/01/21 09:32 Spironolactone 25 Mg Tablet PO 12.5 mg DAILY DEE Administration Protocol Sucralfate 0.5 gm 01/21/21 16:30 02/01/21 20:38 Sucralfate Oral Suspension 1 Gm/10 Ml Oral.Susp PO 0.5 gm QIDACHS [facility] Administration Labs CBC & Chem 7: 02/01/21 05:39 02/01/21 05:39 Quality Stroke Does the patient have a stroke diagnosis?: No VTE Prior VTE?: Yes VTE Risk Level:: Medical - moderate - high VTE Device Contraindication: N/A - Device Ordered VTE Drug Contraindication: Treatment Not Tolerated Assessment and Plan (1) Acalculous cholecystitis: Status: Acute Assessment and Plan: 75-year-old lady with underlying diabetes mellitus, morbid obesity, ANITA noncom pliant with CPAP, hypertension, AFib on Eliquis, CAD, anxiety, with recent admission for AFib requiring cardioversion, admitted on December 13 with dyspnea, nausea, and vomiting, treated for hyponatremia and congestive heart failure, also noted to have esophageal stricture, status post EGD on 12/24 with balloon dilatation, further hospital course complicated by acute on chronic hypoxic and hypercapnic respiratory failure, with what appears to have been a bradycardic episode with possible cardiac arrest on 12/27, status post 10 minutes of CPR, intubated during resuscitation, attempting to talk after return of spontaneous circulation, thus did not undergo hypothermia. Extubated on 12/29, requiring right-sided chest tube on 12/30 for right hemothorax, re-intubated on 12/30 for worsening respiratory status, extubated 01/04/2021. Required re-intubation on 01/05/2021 secondary to recurrent aspirations. Right chest tube removed on 01/08/2021. Status post tracheostomy on 01/08/2021. Parenteral gastrostomy on 01/13/2021. Acute upper GI bleed on 01/14/2021 status post EGD identifying a gastric source. Also, acalculous cholecystitis requiring placement of percutaneous cholecystostomy on 01/24/2021, growing VRE in fluid. downgraded to medical floor 01/27/21. acute on chronic hypoxic and hypercapneic respiratory failure s/p tracheostomy 01/08/21 gtube 01/13/21 tolerating feeds 55cc/hr frequent suctioning acute cholecystitis s/p perc. cholecystsotomy 01/24 fluid growing VRE continue zyvox total 14 days (day 02/17), end february 09, 2021 acute on chronic diastolic chf diuresed, continue diamox for now afib dig, lopressor no a/c due to gi bleed acute blood loss anemia stable, ppi, carafate dispo - plan for LTAC once available
[2021-02-02] MEDS: Linezolid/D5W 600 MG/300 ML PIGGYBACK 300 MG IV ×2 (11:03→21:29)
[2021-02-02] MEDS: Nystatin Powder 15 GM BOTTLE 1 APPL TOPICAL ×3 (11:11→21:29)
--- NOTE | 2021-02-02 12:28 | PC.NURSE ---
repiratory changed o2 from 80% to 50%. will monitor sats.
--- NOTE | 2021-02-02 16:11 | MHC.CM.PN ---
Clincial updates remitted to [facility] as well as SNF referrals: [facility] [place] and [facility] are following as well. Multiple phone conversations with each facility occurred in addition to their RT speaking with [facility] RT re: suctioning and O2 needs: [facility] did not have an open bed today but are anticipating one for 02/03: HH RT will be at [facility] on 02/03 at 10:30 to meet with pt and better assess her trach/resp. needs - they can offer a bed if RT feels they can manage pt's needs [facility] DON and Director are still reviewing clinical to ensure they can meet pt's respiratory needs as well. They expect a determination by 02/03. Both SNF are concerned with the frequency of suctioning. aware of multiple d/c plans in place for pt. Call placed to dtr/HCPLorraine: she was teary and stated she just wanted her mother to go to a facility that will make her better She is receptive to all options including [facility] despite reservations about travel time. She requests that her and her sisters are present when pt d/c's from [facility]: CM to try to coordinate this if possible. CM to follow on 02/03 for ? transfer to LTAC vs SNF.
[2021-02-03] VITALS (12 sets, daily range): BP systolic 116–171; BP diastolic 48–76; PULSE 72–102; RESP 16–20; TEMP 36.3–36.8; O2SAT 92–98
[2021-02-03] MEDS: 0.9 % Sodium Chloride Flush 3 ML SYRINGE IVFLUSH ×4 (01:04→20:00)
[2021-02-03] MEDS: Heparin Sodium,Porcine 5,000 UNIT/ML VIAL 5000 UNIT SUBCUT ×3 (01:04→18:03)
[2021-02-03 06:49] LABS: Hematocrit 34.4 % (37-47); Hemoglobin 10.4 g/dl (12.0-16.0); Mean Corpuscular HGB Conc 30.2 g/dl (31.0-35.0); Mean Corpuscular Hemoglobin 31.1 pg (27.0-33.0); Mean Platelet Volume 10.7 fL (9.4-12.3); Platelet Count 287 X10*3/uL (160-400); Red Blood Count 3.34 X10*6/uL (4.20-5.50); Red Cell Distribution Width 16.9 % (11.0-16.0); White Blood Count 12.3 X10*3/uL (4.8-10.8)
[2021-02-03 07:15] LABS: Blood Urea Nitrogen 12 mg/dL (9-16); Calcium 8.8 mg/dL (8.4-10.2); Creatinine Clr Calc Pharmacy 116.6; Estimated Glomerular Filt Rate > 60; Glucose Fasting 132 mg/dL (60-99)
[2021-02-03 07:36] LABS: Anion Gap 11 (12-20); Carbon Dioxide 43 mmol/L (22-29); Chloride 92 mmol/L (96-108); Potassium 3.9 mmol/L (3.3-5.1); Sodium 142 mmol/L (135-145)
[2021-02-03] MEDS: Sucralfate Oral Suspension 1 GM/10 ML ORAL.SUSP 0.5 GM PO ×4 (09:00→19:59)
[2021-02-03] MEDS: Spironolactone 25 MG TABLET 12.5 MG PO (09:01)
[2021-02-03] MEDS: Chlorhexidine Gluc Oral Rinse 15 ML MOUTHWASH BUCCAL ×3 (09:01→19:58)
[2021-02-03] MEDS: dilTIAZem HCL 30 MG TABLET 60 MG PO ×4 (09:02→19:59)
[2021-02-03] MEDS: Metoprolol Tartrate 50 MG TABLET 100 MG G-TUBE ×2 (09:02→20:00)
[2021-02-03] MEDS: Digoxin 0.125 MG TABLET PO (09:03)
[2021-02-03] MEDS: Nystatin Powder 15 GM BOTTLE 1 APPL TOPICAL ×3 (09:19→20:00)
--- NOTE | 2021-02-03 11:17 | MHC.CM.PN ---
Addendum entered by Caitlin Trimble 02/03/21 14:29: Updates remitted to [facility]: no bed available today per liasion Gwendolyn. Pt remains first on the wait list. CM to follow on 02/04 for possible transfer. Dtr Neida called with updates (Lorraine, HCP #1 on vacation and Neida, HCP #2 is covering) Original Note: Pt seen by RT and Unit RN from [facility] re: ? placement. Per review of EMR and meeting with pt, they determined pt's care needs exceed the capabilities of the facility. Pt being followed by [facility] and is 1st on the wait list. Dtr Kay updated on above as well as MD. CM to follow
--- NOTE | 2021-02-03 11:41 | MHC.CLN ---
F/U JEVITY 1.0 CURRENTLY RUNNING AT MAX GOAL RATE OF 55CC/HR WITH 240CC FREE WATER FLUSHES Q SHIFT PROVIDES 1399KCALS (24KCALS/KG BASED ON IBW), 58G PROTEIN (.98G/KG), 1822CC TOTAL WATER FROM FORMULA AND FLUSHES (31CC/KG) BASED ON IBW NURSING REPORTS GOOD TOLERANCE AND LOW RESIDUALS MONITOR TOLERANCE, RESIDUALS AND LYTES FOLLOWING
[2021-02-03] MEDS: Furosemide 20 MG/2 ML VIAL IVPUSH (11:56)
--- NOTE | 2021-02-03 15:27 | HO.PM.IMPN ---
Subjective Subjective Date of Service: 02/03/21 Interval History: the patient was seen and evaluated this morning Laying in bed, looks comfortable, family at the bedside no reported fever, chills or shortness of breath No reported other overnight events. Systemic review: patient on tracheostomy, unable to speak up Physical Exam Vital Signs: Vital Signs: Last Vital Signs Temp 97.7 F 02/03/21 15:03 Pulse 100 02/03/21 15:03 Resp 20 02/03/21 15:03 BP 132/58 L 02/03/21 15:03 Pulse Ox 95 02/03/21 15:03 Oxygen Flow Rate 2 12/26/20 15:00 Body Mass Index 39.2 Const: Other: Constitutional : Alert, not in distress Neck : tracheostomy in place, Supple Cardiovascular : irregular irregular, S1 S2, trace bilateral, lower extremity edema Respiratory : fairbilateral air entry, no crackles, wheezes or rhonchi Gastrointestinal: soft, lax, Normal bowel sounds, Non tender Skin : Warm/Dry, No rash Neurological : Alert a, No focal deficit Objective Data Current Medications Generic Name Dose Route Start Last Admin Trade Name Freq PRN Reason Stop Dose Admin Chlorhexidine Gluconate 15 ml 01/05/21 15:00 02/03/21 09:01 Chlorhexidine Gluc Oral Rinse 15 Ml Mouthwash BUCCAL 15 ml TID DEE Administration Digoxin 0.125 mg 01/19/21 17:30 02/03/21 09:03 Digoxin 0.125 Mg Tablet PO 0.125 mg DAILY DEE Administration Diltiazem HCl 60 mg 01/23/21 09:00 02/03/21 13:39 Diltiazem Hcl 30 Mg Tablet PO 60 mg QID DEE Administration Protocol Furosemide 20 mg 02/04/21 09:00 Furosemide 20 Mg Tablet PO DAILY DEE Protocol Heparin Sodium (Porcine) 5,000 unit 01/25/21 10:00 02/03/21 09:03 Heparin Sodium,Porcine 5,000 Unit/Ml Vial SUBCUT 5,000 unit Q8H DEE Administration Metoprolol Tartrate 100 mg 01/19/21 09:00 02/03/21 09:02 Metoprolol Tartrate 50 Mg Tablet G-TUBE 100 mg BID DEE Administration Protocol Nystatin 1 appl 01/09/21 17:00 02/03/21 09:19 Nystatin Powder 15 Gm Bottle TOPICAL 1 appl TID DEE Administration Protocol Omeprazole 20 mg 02/03/21 06:30 02/03/21 06:09 Omeprazole 20 Mg/10 Ml Susp.Recon G-TUBE 20 mg DAILY@30 DEE Administration Sodium Chloride 3 ml 12/14/20 00:00 02/03/21 09:01 0.9 % Sodium Chloride Flush 3 Ml Syringe IVFLUSH 3 ml QSHIFT DEE Administration Spironolactone 12.5 mg 01/21/21 15:30 02/03/21 09:01 Spironolactone 25 Mg Tablet PO 12.5 mg DAILY DEE Administration Protocol Sucralfate 0.5 gm 01/21/21 16:30 02/03/21 13:32 Sucralfate Oral Suspension 1 Gm/10 Ml Oral.Susp PO 0.5 gm QIDACHS COUNTS INCLUDE 234 BEDS AT THE [facility] Administration Labs CBC & Chem 7: 02/03/21 05:19 02/03/21 05:19 Labs: Laboratory Results - last 24 hr 02/03/21 02/03/21 05:19 05:19 WBC 12.3 H RBC 3.34 L Hgb 10.4 L Hct 34.4 L MCV 103.0 H MCH 31.1 MCHC 30.2 L RDW 16.9 H Plt Count 287 MPV 10.7 Absolute Nucleated RBC 0.000 Nucleated RBC % (auto) 0.0 Sodium 142 Potassium 3.9 Chloride 92 L Carbon Dioxide 43 H* Anion Gap 11 L BUN 12 Creatinine 0.54 Estim Creat Clear Calc 116.6 Estimated GFR > 60 Fasting Glucose 132 H Calcium 8.8 Quality Stroke Does the patient have a stroke diagnosis?: No VTE Prior VTE?: Yes VTE Risk Level:: Medical - moderate - high VTE Device Contraindication: N/A - Device Ordered VTE Drug Contraindication: Treatment Not Tolerated Assessment and Plan (1) Acalculous cholecystitis: Status: Acute Assessment and Plan: 75-year-old lady with underlying diabetes mellitus, morbid obesity, ANITA noncompliant with CPAP, hypertension, AFib on Eliquis, CAD, anxiety, with recent admission for AFib requiring cardioversion, admitted on December 13 with dyspnea, nausea, and vomiting, treated for hyponatremia and congestive heart failure, also noted to have esophageal stricture, status post EGD on 12/24 with balloon dilatation, further hospital course complicated by acute on chronic hypoxic and hypercapnic respiratory failure, with what appears to have been a bradycardic episode with possible cardiac arrest on 12/27, status post 10 minutes of CPR, intubated during resuscitation, attempting to talk after return of spontaneous circulation, thus did not undergo hypothermia. Extubated on 12/29, requiring right-sided chest tube on 12/30 for right hemothorax, re-intubated on 12/30 for worsening respiratory status, extubated 01/04/2021. Required re-intubation on 01/05/2021 secondary to recurrent aspirations. Right chest tube removed on 01/08/2021. Status post tracheostomy on 01/08/2021. Parenteral gastrostomy on 01/13/2021. Acute upper GI bleed on 01/14/2021 status post EGD identifying a gastric source. Also, acalculous cholecystitis requiring placement of percutaneous cholecystostomy on 01/24/2021, growing VRE in fluid. downgraded to medical floor 01/27/21. acute on chronic hypoxic and hypercapneic respiratory failure s/p tracheostomy 01/08/21 gtube 01/13/21 tolerating feeds 55cc/hr frequent suctioning acute cholecystitis s/p perc. cholecystsotomy 01/24 fluid growing VRE continue zyvox total 14 days (day 03/20), end february 09, 2021 acute on chronic diastolic chf start gentle Lasix continue diamox for now afib dig, lopressor no a/c due to gi bleed acute blood loss anemia stable, ppi, carafate dispo - plan for LTAC once available
[2021-02-03] MEDS: acetaZOLAMIDE 250 MG TABLET G-TUBE (19:59)
[2021-02-04] MEDS: Heparin Sodium,Porcine 5,000 UNIT/ML VIAL 5000 UNIT SUBCUT ×2 (01:08→11:00)
[2021-02-04 03:28] VITALS: BP 152/71; PULSE 91; RESP 19; TEMP 36.1; O2SAT 95
--- NOTE | 2021-02-04 04:54 | PC.NURSE ---
Spoke with Gwendolyn from [facility]- she is requesting the patient have LFTs and a CBC re-drawn today, as well as a repeat chest x-ray before discharge later today. This RN notified Dr Lawrence
[2021-02-04 06:53] LABS: MANUAL DIFF FLAG NO
[2021-02-04 07:04] LABS: Basophils Absolute Auto 0.1 X10*3/uL (0.0-0.2); Basophils Percent Auto 0.4 % (0-2); Eosinophils Absolute Auto 0.1 X10*3/uL (0.0-0.4); Eosinophils Percent Auto 0.4 % (0-4); Hemoglobin 10.5 g/dl (12.0-16.0); Imm Gran Abs Auto 0.24 X10*3/uL (0.00-0.03); Imm Gran Pct Auto 1.9 % (0.0-0.4); Lymphocytes Absolute Auto 0.6 X10*3/uL (1.2-4.9); Lymphocytes Percent Auto 4.9 % (20-40); Mean Corpuscular Hemoglobin 30.7 pg (27.0-33.0); Mean Corpuscular Volume 102.3 fL (80-98); Monocytes Absolute Auto 0.7 X10*3/uL (0.1-1.2); Monocytes Percent Auto 5.1 % (2-11); Neutrophils Absolute Auto 11.2 X10*3/uL (2.0-8.3); Neutrophils Percent Auto 87.3 % (45-73); Platelet Count 269 X10*3/uL (160-400); Red Blood Count 3.42 X10*6/uL (4.20-5.50); Red Cell Distribution Width 16.8 % (11.0-16.0); White Blood Count 12.8 X10*3/uL (4.8-10.8)
[2021-02-04 07:48] VITALS: BP 134/71; PULSE 99; RESP 20; TEMP 36.8; O2SAT 94
[2021-02-04 07:50] LABS: Anion Gap 11 (12-20); Blood Urea Nitrogen 14 mg/dL (9-16); Calcium 8.8 mg/dL (8.4-10.2); Carbon Dioxide 42 mmol/L (22-29); Chloride 90 mmol/L (96-108); Creatinine Clr Calc Pharmacy 112.5; Estimated Glomerular Filt Rate > 60; Glucose Random 154 mg/dL (60-115); Potassium 4.1 mmol/L (3.3-5.1); Sodium 139 mmol/L (135-145)
[2021-02-04] MEDS: Chlorhexidine Gluc Oral Rinse 15 ML MOUTHWASH BUCCAL (08:03)
[2021-02-04 08:05] VITALS: PULSE 98
[2021-02-04] MEDS: Metoprolol Tartrate 50 MG TABLET 100 MG G-TUBE (08:05)
[2021-02-04] MEDS: dilTIAZem HCL 30 MG TABLET 60 MG PO ×2 (08:05→12:07)
[2021-02-04] MEDS: Digoxin 0.125 MG TABLET PO (08:05)
[2021-02-04] MEDS: acetaZOLAMIDE 250 MG TABLET G-TUBE (08:05)
[2021-02-04] MEDS: Spironolactone 25 MG TABLET 12.5 MG PO (08:06)
[2021-02-04] MEDS: Furosemide 20 MG TABLET PO (08:06)
[2021-02-04] MEDS: Sucralfate Oral Suspension 1 GM/10 ML ORAL.SUSP 0.5 GM PO ×2 (08:07→12:07)
[2021-02-04] MEDS: Nystatin Powder 15 GM BOTTLE 1 APPL TOPICAL (08:07)
[2021-02-04] MEDS: 0.9 % Sodium Chloride Flush 3 ML SYRINGE IVFLUSH (08:07)
[2021-02-04 11:11] VITALS: BP 138/72; PULSE 83; RESP 20; TEMP 36.3; O2SAT 98
[2021-02-04 11:32] VITALS: BP 138/72; PULSE 83; O2SAT 98
--- NOTE | 2021-02-04 11:50 | MHC.CM.PN ---
Per discussion with JAKE Montoyasicuauhtemoc, pt can transfer today at 2pm. Clinical updates remitted per her request and [facility] [place] has had a phone conversation with JAKE's to accept. Gwendolyn is requesting the D/C summary include the followin. Notation re: no plans for PET scan as previously stated in H&P as a possibility 2. F/U on biliary drain ie: removal criteria 3. Note re: 02/04 CXR, WBC bump and tx plan to address both. This info was given to MD for inclusion on summary. [facility] arranged for 2pm. Pts Dtr/HCP Neida called and in agreement with plan. Her and her sister plan on visiting prior to pt transfer.
--- NOTE | 2021-02-04 11:52 | PM.DS ---
DS: Providers Provider Date of Service: 02/04/21 Date of admission: 12/13/20 16:46 Primary care physician: Unknown Physician Consults: 12/13/20 16:46 Consult to Nephrology Routine Consulting Provider: Karri Monahan Reason for consultation: Acute hyponatremia 12/18/20 14:26 Consult to Gastroenterology Routine Consulting Provider: [facility] [place] [facility] Reason for consultation: Dysphagia to solid and liquid 12/21/20 17:18 Consult to Care Team Routine Comment: Reason for consultation: etoh 12/27/20 08:05 Consult to Pulmonology Routine Consulting Provider: Charlie De Paz Reason for consultation: Advice on CO2 retention 12/27/20 11:35 Consult to Cardiology Stat Consulting Provider: Adebayo Lechuga Reason for consultation: CARDIAC ARREST 12/28/20 10:22 Consult to Cardiology Routine Consulting Provider: Vladislav Cervantes Reason for consultation: dysrhythmia/symptomatic bradycardia Has provider been notified: Yes 12/30/20 12:13 Consult to Thoracic Surgery Routine Consulting Provider: Elza Alejo Reason for consultation: Large right hemo thorax Has provider been notified: Yes 01/06/21 11:43 Consult to Thoracic Surgery Routine Consulting Provider: Elza Alejo Reason for consultation: Tracheostomy placement Has provider been notified: No 01/07/21 15:04 Consult to General Surgery Routine Consulting Provider: [facility] [place] General Surgeons Reason for consultation: Tracheostomy placement Has provider been notified: Yes 01/21/21 13:30 Consult to Infectious Diseases Stat Consulting Provider: Carly Zheng Reason for consultation: Caspofungin Has provider been notified: Yes DS: Diagnosis Discharge Diagnosis (1) Acalculous cholecystitis: Status: Acute (2) Bacteriuria: Status: Acute (3) Hypernatremia: Status: Acute (4) Hypokalemia due to excessive renal loss of potassium: Status: Acute (5) Atrial fibrillation status post cardioversion: Status: Acute (6) Obesity: Status: Acute (7) Urinary retention: Status: Acute (8) Pulmonary aspiration: Status: Acute (9) Hemothorax on right: Status: Acute (10) Acute hypercapnic respiratory failure due to obstructive sleep apnea: Status: Acute (11) Acute renal failure due to tubular necrosis: Status: Acute (12) Sick sinus syndrome: Status: Acute (13) Symptomatic bradycardia: Status: Acute (14) Cardiac arrest: Status: Acute (15) Metabolic alkalosis: Status: Acute (16) Dysphagia: Status: Acute (17) Metabolic alkalosis: Status: Acute (18) Hyperkalemia: Status: Acute (19) Acute hyponatremia: Status: Acute (20) Acute diastolic CHF (congestive heart failure): Status: Acute DS: Medications Discharge Medications Home Medications: Home Medications Medication Instructions Recorded Confirmed lorazepam 1 tab PO BID PRN 11/18/20 12/13/20 omeprazole 1 cap PO BID 11/18/20 12/13/20 simvastatin 1 tab PO DAILY 11/18/20 12/13/20 Previous Rx's Medication Instructions Recorded apixaban 5 mg tablet 5 mg PO BID 30 Days #60 tab 10/13/20 magnesium oxide 400 mg PO BIDPC #60 tab 11/26/20 Omeprazole Oral Susp [PriLOSEC 30 mg G-TUBE DAILY@0630 30 Days 02/04/21 Oral Susp] acetazolamide 250 mg G-TUBE BID 30 Days #60 tab 02/04/21 digoxin 0.125 mg PO DAILY 30 Days #30 tab 02/04/21 diltiazem HCl 60 mg PO QID 30 Days #240 tab 02/04/21 furosemide 20 mg PO DAILY 30 Days #30 tab 02/04/21 metoprolol tartrate 100 mg G-TUBE BID 30 Days #120 tab 02/04/21 nystatin 1 appl TOPICAL TID 30 Days g 02/04/21 spironolactone 12.5 mg PO DAILY 30 Days #15 tab 02/04/21 sucralfate 0.5 g PO QIDACHS 30 Days ml 02/04/21 DS: Summary Hospital Course Hospital Course: The patient had prolonged hospital stay. for full details please return to EMR. Admission note HPI 75-year-old female with past medical history of hypertension hyperlipidemia, anxiety, AFib on Eliquis, chronic back pain status post surgery presented hospital a chief complaint of increased weakness, multiple episodes of nausea and vomiting and feeling shortness of breath and with dyspnea on exertion. The patient reports that since she left the hospital treated in feels she is back normal as she felt she is generally weak and that continue to worsen over the last few days associated with dyspnea on exertion. For the last 3 days she was having episodes nausea and vomiting. She noticed that her lower extremities are getting swollen. Denies any fever, chills, chest pain, palpitation, cough or urinary symptoms. The patient does have sleep apnea and has not been wearing her CPAP machine at night. Hospital course: The patient was presented to the ED on December 13 of a chief complaint of increased weakness, multiple episodes of nausea and vomiting, and feeling shortness of breath and dyspnea on exertion. She noted that her legs were swollen. The patient does have sleep apnea and had not been wearing her CPAP machine at night. She was diagnosed with acute hyponatremia, CHF, and fluid overload. She was admitted and started on urea, salt tablet, and fluid restriction. Her initial heart rhythm was sinus bradycardia with first-degree block. Flecainide, Lopressor, And Eliquis were continued. Her BNP was elevated. She was diuresed. At some point, she went back into Afib. With usage ofthe Lasix, her bicarb started rising. She developed trouble eating and swallowing. She was seen by Dr. Whiting from Gastroenterology. She was scheduled for EGD but it was cancelled bec of hyperkalemia, marked metabolic alkalosis, and elevated BNP. Her base excess delfino into the 20?s, and she developed a marked hypercarbia, altho without CO2 narcosis. On 12/23, she was started on Provigil, and nighttime CPAP was changed to BiPAP. Her hypercarbia signif improved. On 12/24, she underwent EGD and was found to have gastric polyps and an esophageal stricture. She underwent biopsies and balloon dilatation at [facility], with a small tear noted. She?d been getting low dose [place] oxygen the entire hospital stay (was not on oxygen at home). on December 27 the patient c/o dizziness. The telemonitor alarmed with bradycardia at about 10:12, and the nurse was immediately in the room and found the patient unconscious. CPR was started immediately. The first rhythm on the monitor after second shift supervisor was thought to be Vfib. During the code, she was defib?ed three times, given a total of 3mg epi, 300 mg amiodarone and was intubated. CPR duration was 10 minutes. She was awake and responsive after the code. The patient was transferred to ICU. after CPR studies including CT pulmonary angiogram showed no pulmonary emboli. RV was enlarged with RV:LV cavity ratio 1.0. She had large bilateral pleural effusions with compressive atelectasis, and rib fx?s 2? vigorous CPR. Anticoagulation was held. She was extubated to BiPAP on December 29. On December 30, a right pleural drainage catheter was placed and drained 2500 cc of bloody fluid (probably hemothorax 2? CPR). She had to be reintubated mucosa of hypercarbia. Her right lung reexpanded nicely after the fluid drainage. The patient was extubated again on 01/04, but required reintubation the next day 2? aspiration. The right pleural drainage tube was removed on January 08 and the patient underwent open tracheostomy by Dr. Castro that same day. A fenestrated tracheostomy tube was placed. 01/12 she was switched into trach collar with no problem. On 40% trach collar, RR was 20, w Sat 97%. patient was noted to have right upper quadrant pain and tenderness. Images were concerning for possible acute cholecystitis. Evaluated by surgery team who recommended IR intervention. Cholecystotomy was done with placement of drainage tubes. Fluid grew VRE E. The patient was evaluated by infectious disease specialist who recommended treatment with Zyvox. To be in by 02/09/2021. Time Spent with Patient Time attestation: Total time spent providing and/or coordinating discharge services: Discharge coordination time: Greater than 30 minutes Quality: Stroke Does the patient have a stroke diagnosis?: No Physical Exam Vital Signs: Vital Signs: Last Vital Signs Temp 97.4 F 02/04/21 11:11 Pulse 83 02/04/21 11:32 Resp 20 02/04/21 11:11 BP 138/72 02/04/21 11:32 Pulse Ox 98 02/04/21 11:32 Oxygen Flow Rate 2 12/26/20 15:00 Body Mass Index 39.2 Const: Other: Constitutional : Alert, not in distress Neck : tracheostomy in place, Supple Cardiovascular : irregular irregular, S1 S2, trace bilateral lower extremity edema Respiratory : fair bilateral air entry decreased at the bases, no crackles, No wheezes or rhonchi Gastrointestinal: soft, lax, Normal bowel sounds, Non tender, drainage tube in place with no surrounding erythema Skin : Warm/Dry, No rash Neurological : Alert a, No focal deficit DS: Data Data Completed and Pending Completed studies during hospitalization [Text1]: Pending at discharge 12/24/20 16:12 Surgical [PTH] Routine Procedures Insertion of Infusion Device into Right Cephalic Vein, Percutaneous Approach (11/17/20) Christian of Cardiac Rhythm, Single (11/17/20) Labs on day of discharge: Laboratory Results - last 24 hr 02/04/21 02/04/21 02/04/21 05:23 05:23 05:23 WBC 12.8 H RBC 3.42 L Hgb 10.5 L Hct 35.0 L MCV 102.3 H MCH 30.7 MCHC 30.0 L RDW 16.8 H Plt Count 269 MPV 11.0 Immature Gran % (Auto) 1.9 H Neut % (Auto) 87.3 H Lymph % (Auto) 4.9 L [place] % (Auto) 5.1 Eos % (Auto) 0.4 Baso % (Auto) 0.4 Lymph # (Auto) 0.6 L [place] # (Auto) 0.7 Eos # (Auto) 0.1 Baso # (Auto) 0.1 Abs Immat Gran (auto) 0.24 H Absolute Neuts (auto) 11.2 H Absolute Nucleated RBC 0.000 Nucleated RBC % (auto) 0.0 Sodium Cancelled 139 Potassium Cancelled 4.1 Chloride Cancelled 90 L Carbon Dioxide Cancelled 42 H* Anion Gap Cancelled 11 L BUN Cancelled 14 Creatinine Cancelled 0.56 Estim Creat Clear Calc Cancelled 112.5 Estimated GFR Cancelled > 60 Random Glucose Cancelled 154 H Calcium Cancelled 8.8 Discharge Plan Discharge Patient Disposition: Xfer Other Discharge Diagnosis: HypOnatremia and heart failure Referrals: [facility] [Outside] - 1 Week Physician,Unknown [Primary Care Provider] - 1 Week Discharge Medications: New digoxin 125 mcg (0.125 mg) Tablet 0.125 mg PO DAILY 30 Days Qty: 30 RF: 0 diltiazem HCl 30 mg Tablet 60 mg PO QID 30 Days Qty: 240 RF: 0 sucralfate 100 mg/mL Suspension 0.5 g PO QIDACHS 30 Days RF: 0 acetazolamide 250 mg Tablet 250 mg G-tube BID 30 Days Qty: 60 RF: 0 spironolactone 25 mg Tablet 12.5 mg PO DAILY 30 Days Qty: 15 RF: 0 metoprolol tartrate 50 mg Tablet 100 mg G-tube BID 30 Days Qty: 120 RF: 0 furosemide 20 mg Tablet 20 mg PO DAILY 30 Days Qty: 30 RF: 0 nystatin 100,000 unit/gram Powder 1 appl topical TID 30 Days RF: 0 Omeprazole Oral Susp [Prilosec Oral Susp] 30 mg G-tube DAILY@0630 30 Days RF: 0 linezolid in dextrose 5% [Zyvox] 600 mg/300 mL Piggyback 600 mg IV Q12H 6 Days RF: 0 Continued Eliquis 5 mg tablet 5 mg PO BID 30 Days Qty: 60 RF: 0 simvastatin 10 mg tablet 1 tab PO DAILY RF: 0 omeprazole 20 mg capsule,delayed release(DR/EC) 1 cap PO BID RF: 0 lorazepam 1 mg tablet 1 tab PO BID PRN (Reason: Anxiety) RF: 0 magnesium oxide 400 mg (241.3 mg magnesium) Tablet 400 mg PO BIDPC Qty: 60 RF: 0 Discontinued metoprolol tartrate 50 mg Tablet 75 mg PO BID Qty: 90 RF: 0 amlodipine 5 mg Tablet 5 mg PO DAILY Qty: 30 RF: 0 flecainide 50 mg Tablet 150 mg PO BID Qty: 180 RF: 0 Discharge Orders: Discharge Order (Routine); Ordered 02/04/21 Ordered By: Marino Douglas Diet: advance to usual diet Activity on Discharge: As tolerated Stand Alone Forms: Patient Portal Discharge page Care Plan Goals: Read below Health Concerns: Read below Plan of Treatment: to be discharged to long-term care facility Assessment: monitor drainage tube from gallbladder Monitor weight and respiratory status
[2021-02-04] MEDS: Furosemide 40 MG/4 ML VIAL IVPUSH (12:07)
[2021-02-04] MEDS: Linezolid 600 MG TABLET G-TUBE (13:39)
== END 2021-02-04 14:19 | disposition other institution (70) | DRG 4 ==
LOC: HO.ED 16:02 → HO.EDOVER 17:03 → HO.IMC 17:20 → HO.ICU 12-27 11:32 → HO.IMC 01-27 14:01
PROVIDERS: Anesthesiology; Hospitalist; Internal Medicine; Internal Medicine Gastroenterology; Internal Medicine Hypertension Specialist; Internal Medicine Nephrology; Internal Medicine Pulmonary Disease; Physician Assistant; Physician Assistant Medical; Registered Nurse Community Health; Surgery; Admitting Provider Internal Medicine Cardiovascular Disease; Emergency Provider Emergency Medicine Emergency Medical Services; Visit Provider Student in an Organized Health Care Education/Training Program
PROC: 0DJ08ZZ Inspection of Upper Intestinal Tract, Via Natural or Artificial Opening Endoscopic (ICD-10-PCS; CPT 43235; principal; 2020-12-24 16:00)
PROC: 0B110F4 Bypass Trachea to Cutaneous with Tracheostomy Device, Open Approach (ICD-10-PCS; principal; 2021-01-08 11:00)
PROC: 0DH63UZ Insertion of Feeding Device into Stomach, Percutaneous Approach (ICD-10-PCS; CPT 43246; principal; 2021-01-13 11:00)
DX: I11.0 Hypertensive heart disease with heart failure (principal); I46.9 Cardiac arrest, cause unspecified; N17.0 Acute kidney failure with tubular necrosis; J96.22 Acute and chronic respiratory failure with hypercapnia; J96.21 Acute and chronic respiratory failure with hypoxia; E22.2 Syndrome of inappropriate secretion of antidiuretic hormone; J98.11 Atelectasis; J67.9 Hypersensitivity pneumonitis due to unspecified organic dust; K91.81 Other intraoperative complications of digestive system; E87.3 Alkalosis; E66.2 Morbid (severe) obesity with alveolar hypoventilation; J95.89 Other postprocedural complications and disorders of respiratory system, not elsewhere classified; M96.89 Other intraoperative and postprocedural complications and disorders of the musculoskeletal system; I82.622 Acute embolism and thrombosis of deep veins of left upper extremity; F05 Delirium due to known physiological condition; K81.0 Acute cholecystitis; B37.49 Other urogenital candidiasis; R57.9 Shock, unspecified; I50.33 Acute on chronic diastolic (congestive) heart failure; E87.5 Hyperkalemia; F41.9 Anxiety disorder, unspecified; F10.20 Alcohol dependence, uncomplicated; E78.5 Hyperlipidemia, unspecified; E11.9 Type 2 diabetes mellitus without complications; I44.0 Atrioventricular block, first degree; I48.0 Paroxysmal atrial fibrillation; I49.5 Sick sinus syndrome; T46.2X5A Adverse effect of other antidysrhythmic drugs, initial encounter; I27.81 Cor pulmonale (chronic); Y84.8 Other medical procedures as the cause of abnormal reaction of the patient, or of later complication, without mention of misadventure at the time of the procedure; K94.21 Gastrostomy hemorrhage; Z85.01 Personal history of malignant neoplasm of esophagus; R33.9 Retention of urine, unspecified; R13.10 Dysphagia, unspecified; I25.10 Atherosclerotic heart disease of native coronary artery without angina pectoris; Z68.39 Body mass index [BMI] 39.0-39.9, adult; Z99.89 Dependence on other enabling machines and devices; Z91.19 Patient's noncompliance with other medical treatment and regimen; Z20.822 Contact with and (suspected) exposure to COVID-19; Z79.01 Long term (current) use of anticoagulants; Z79.899 Other long term (current) drug therapy; Z66 Do not resuscitate
CPT/HCPCS: 36410; 36415; 36600; 49406; 70450; 71045; 71046; 71250; 71275; 74018; 74176; 74177; 74220; 76705; 78226; 80048; 80051; 80053; 80076; 80202; 80320; 81001; 81003; 82040; 82272; 82436; 82550; 82565; 82947; 83036; 83605; 83690; 83735; 83880; 83930; 83935; 84100; 84132; 84133; 84145; 84300; 84439; 84443; 84484; 84520; 85014; 85018; 85025; 85027; 85379; 85384; 85610; 85730; 86022; 86140; 86850; 86880; 86900; 86901; 86923; 87040; 87070; 87071; 87073; 87077; 87086; 87186; 87205; 87324; 87449; 87635; 88305; 88342; 92610; 93005; 93308; 93971; 94002; 94003; 94640; 94660; 94799; 97110; 97116; 97162; 97163; 97530; 99024; 99152; 99153; 99285; A9537; C1726; C1758; C1894; J0131; J0171; J0282; J0295; J0456; J0461; J0610; J0637; J0690; J0696; J0883; J1160; J1170; J1265; J1450; J1650; J1885; J1940; J2020; J2060; J2185; J2250; J2270; J2354; J2370; J2405; J2543; J2930; J2997; J3010; J3370; J3430; J3475; P9016; P9017; P9047; Q9967

== ENCOUNTER → 2021-03-08 14:01 | Outpatient (BNVA) | payer OTHER, MEDICARE, MEDICAID, SELFPAY | PROVIDERS: Visit Provider Surgery | DX: K81.9 Cholecystitis, unspecified (principal) | CPT/HCPCS: 99212 ==

== ENCOUNTER 2021-12-01 15:51 | Outpatient (REF) | payer OTHER, MEDICARE, MEDICAID, SELFPAY ==
[2021-12-01 16:15] LABS: MANUAL DIFF FLAG NO
[2021-12-01 16:26] LABS: Basophils Percent Auto 0.4 % (0-2); Eosinophils Absolute Auto 0.1 X10*3/uL (0.0-0.4); Eosinophils Percent Auto 1.3 % (0-4); Hematocrit 43.7 % (37.0-47.0); Hemoglobin 14.1 g/dl (12.0-16.0); Imm Gran Abs Auto 0.05 X10*3/uL (0.00-0.03); Imm Gran Pct Auto 0.5 % (0.0-0.4); Lymphocytes Absolute Auto 1.3 X10*3/uL (1.2-4.9); Lymphocytes Percent Auto 12.2 % (20-40); Mean Corpuscular HGB Conc 32.3 g/dl (31.0-35.0); Mean Corpuscular Volume 89.9 fL (80.0-98.0); Monocytes Absolute Auto 0.7 X10*3/uL (0.1-1.2); Monocytes Percent Auto 6.9 % (2-11); Neutrophils Absolute Auto 8.4 x10*3/uL (2.0-8.3); Neutrophils Percent Auto 78.7 % (45-73); Platelet Count 328 X10*3/uL (160-400); Red Blood Count 4.86 X10*6/uL (4.20-5.50); Red Cell Distribution Width 15.4 % (11.0-16.0); White Blood Count 10.7 X10*3/uL (4.8-10.8)
[2021-12-01 16:36] LABS: Estimated Average Glucose 123 mg/dL; Hemoglobin A1C 149.7833 umol/L; Hemoglobin A1c % 5.9 %
[2021-12-01 16:53] LABS: Alanine Aminotransferase 18 U/L (0-31); Albumin Level 3.8 g/dL (3.5-5.0); Alkaline Phosphatase 114 U/L (39-117); Anion Gap 14 (12-20); Aspartate Amino Transferase 19 U/L (5-31); Bilirubin Total 0.4 mg/dL (0.0-1.0); Blood Urea Nitrogen 20 mg/dL (9-16); Calcium 9.9 mg/dL (8.4-10.2); Carbon Dioxide 32 mmol/L (22-29); Chloride 96 mmol/L (96-108); Cholesterol 124 mg/dL; Estimated Glomerular Filt Rate 48; Glucose Random 97 mg/dL (60-115); Magnesium 2.1 mg/dL (1.6-2.6); Potassium 5.3 mmol/L (3.3-5.1); Sodium 137 mmol/L (135-145); Total Protein 6.9 g/dL (6.5-8.0)
[2021-12-01 17:15] LABS: Free T4 (Free Thyroxine) 0.97 ng/dL (0.71-1.85); Thyroid Stimulating Hormone 2.72 uIU/mL (0.32-4.0); Vitamin D 25-OH Total 52.5 ng/mL (>30)
[2021-12-01 17:17] LABS: Vitamin B12 582 pg/mL (200-900)
== END 2021-12-01 15:52 | disposition home or self-care (01) ==
LOC: HO.LAB 15:51
PROVIDERS: PCP Internal Medicine; Visit Provider Internal Medicine
DX: I25.10 Atherosclerotic heart disease of native coronary artery without angina pectoris (principal); I10 Essential (primary) hypertension; E78.00 Pure hypercholesterolemia, unspecified; J44.9 Chronic obstructive pulmonary disease, unspecified; R63.4 Abnormal weight loss
CPT/HCPCS: 36415; 80053; 82306; 82465; 82607; 83036; 83735; 84439; 84443; 85025

== ENCOUNTER 2022-01-04 15:05 | Outpatient (REF) | payer OTHER, MEDICARE, MEDICAID, SELFPAY ==
[2022-01-04 15:21] LABS: MANUAL DIFF FLAG NO
[2022-01-04 15:48] LABS: Basophils Percent Auto 0.6 % (0-2); Eosinophils Absolute Auto 0.1 X10*3/uL (0.0-0.4); Eosinophils Percent Auto 1.3 % (0-4); Hematocrit 41.7 % (37.0-47.0); Hemoglobin 13.3 g/dl (12.0-16.0); Imm Gran Abs Auto 0.03 X10*3/uL (0.00-0.03); Imm Gran Pct Auto 0.4 % (0.0-0.4); Lymphocytes Absolute Auto 0.9 X10*3/uL (1.2-4.9); Lymphocytes Percent Auto 12.5 % (20-40); Mean Corpuscular HGB Conc 31.9 g/dl (31.0-35.0); Mean Corpuscular Hemoglobin 29.6 pg (27.0-33.0); Mean Corpuscular Volume 92.9 fL (80.0-98.0); Mean Platelet Volume 9.7 fL (9.4-12.3); Monocytes Absolute Auto 0.5 X10*3/uL (0.1-1.2); Monocytes Percent Auto 7.3 % (2-11); Neutrophils Absolute Auto 5.5 x10*3/uL (2.0-8.3); Neutrophils Percent Auto 77.9 % (45-73); Platelet Count 299 X10*3/uL (160-400); Red Blood Count 4.49 X10*6/uL (4.20-5.50); Red Cell Distribution Width 15.3 % (11.0-16.0)
[2022-01-04 16:08] LABS: Alanine Aminotransferase 16 U/L (0-31); Albumin Level 3.5 g/dL (3.5-5.0); Alkaline Phosphatase 94 U/L (39-117); Anion Gap 14 (12-20); Aspartate Amino Transferase 21 U/L (5-31); Bilirubin Total 0.6 mg/dL (0.0-1.0); Blood Urea Nitrogen 9 mg/dL (9-16); Calcium 9.3 mg/dL (8.4-10.2); Carbon Dioxide 30 mmol/L (22-29); Chloride 101 mmol/L (96-108); Estimated Glomerular Filt Rate > 60; Glucose Random 118 mg/dL (60-115); Sodium 141 mmol/L (135-145); Total Protein 6.3 g/dL (6.5-8.0)
[2022-01-04 16:09] LABS: Estimated Average Glucose 114 mg/dL; Hemoglobin A1c % 5.6 %
== END 2022-01-04 15:06 | disposition home or self-care (01) ==
LOC: HO.LAB 15:05
PROVIDERS: PCP Internal Medicine; Visit Provider Internal Medicine
DX: I48.91 Unspecified atrial fibrillation (principal); I50.9 Heart failure, unspecified; J44.9 Chronic obstructive pulmonary disease, unspecified; N18.9 Chronic kidney disease, unspecified; R73.03 Prediabetes
CPT/HCPCS: 36415; 80053; 83036; 85025

== ENCOUNTER 2022-01-15 18:18 | Observation (INO) | payer MEDICARE, MEDICAID, SELFPAY ==
--- NOTE | ~2022-01-15 | XR_ITS ---
EXAMINATION: LUMBAR SPINE AND CHEST CLINICAL INFORMATION: Shortness of breath and pain status post fall COMPARISON: Chest radiograph 02/04/2021, CT abdomen pelvis 01/24/2021 TECHNIQUE: Single view chest, 3 views lumbar spine FINDINGS: Chest: Heart size within normal limits. No infiltrates, effusions or lung masses seen compared to the prior study, there is been dramatic improvement in appearances with resolution of the pulmonary edema and moderate-sized pleural effusions. Lumbar spine: There pedicular screws at L4 and S1 with a disc joint effusion at L4-L5. All hardware is intact. Degenerative changes are present throughout the spine. No evidence of a acute fracture is seen. XR/XR chest 1V IMPRESSION: 1. No acute intrathoracic disease. Resolved CHF and pleural effusions when compared to prior 2. Postop hardware lumbosacral spine. No acute finding.
--- NOTE | ~2022-01-15 | XR_ITS ---
EXAMINATION: LUMBAR SPINE AND CHEST CLINICAL INFORMATION: Shortness of breath and pain status post fall COMPARISON: Chest radiograph 02/04/2021, CT abdomen pelvis 01/24/2021 TECHNIQUE: Single view chest, 3 views lumbar spine FINDINGS: Chest: Heart size within normal limits. No infiltrates, effusions or lung masses seen compared to the prior study, there is been dramatic improvement in appearances with resolution of the pulmonary edema and moderate-sized pleural effusions. Lumbar spine: There pedicular screws at L4 and S1 with a disc joint effusion at L4-L5. All hardware is intact. Degenerative changes are present throughout the spine. No evidence of a acute fracture is seen. XR/XR lumbar spine 2-3V IMPRESSION: 1. No acute intrathoracic disease. Resolved CHF and pleural effusions when compared to prior 2. Postop hardware lumbosacral spine. No acute finding.
--- NOTE | ~2022-01-15 | XR_ITS ---
EXAMINATION: XR KNEE, LEFT CLINICAL INFORMATION: Status post fall COMPARISON: None TECHNIQUE: Four views of the left knee. FINDINGS: No acute fracture or dislocation. Small tricompartmental marginal osteophytes. Articular surfaces are smooth. Moderate knee joint effusion. XR/XR knee LT 3V IMPRESSION: No fractures. Moderate knee joint effusion.
--- NOTE | ~2022-01-15 | CT_ITS ---
EXAMINATION: CT HEAD WITHOUT CONTRAST CT CERVICAL SPINE WITHOUT CONTRAST CLINICAL INFORMATION: Fall on Eliquis. COMPARISON: CTA head and neck from 11/19/2020. TECHNIQUE: Contiguous axial imaging was performed from the skull base to vertex without intravenous administration of contrast. Contiguous axial imaging was performed from the upper chest through the skull base without intravenous administration of contrast. Coronal and sagittal reformats were obtained at the acquisition workstation. This CT examination was performed using dose optimization techniques as appropriate, variously including the following: *Automated exposure control. *Adjustment of mA and/or kV according to patient size (this includes techniques or standardized protocols for targeted exams where dose is matched to indication/reason for exam; i.e. extremities or head). *Use of iterative reconstruction technique. DLP: 1040 mGy-cm FINDINGS: Head: There is no evidence of acute intracranial hemorrhage or edematous territorial infarction. Scattered hypoattenuation in the periventricular and deep white matter are consistent with moderate microangiopathy. Santos-white matter differentiation is preserved. Proportional prominence of the ventricles and sulcal spaces. No evidence for obstructive hydrocephalus. No abnormal mass effect or midline shift. No extra-axial fluid collections. No acute soft tissue or osseous abnormalities. Mild mucosal thickening of the paranasal sinuses. The mastoid air cells and middle ear cavities are clear. Cervical Spine: The atlantooccipital and atlantoaxial articulations remain well aligned. Straightening of the normal cervical lordosis. Otherwise, there is anatomic alignment of the vertebral bodies and posterior elements. No evidence of acute fracture or subluxation. The vertebral body heights and disc spaces are maintained. Moderate degenerative disc disease at C4-C5 and C5-C6. Mild degenerative disc disease at all additional cervical levels. Associated disc-osteophyte complex formation. Superimposed right central disc protrusion at C4-C5 and left lateral disc protrusion at C5-C6. There appears to be at least mild spinal canal stenoses at C4-C5 and C5-C6. Facet and uncovertebral joint arthropathy leads osseous encroachment on the neural foramina from C4-T1. There is no prevertebral soft tissue swelling. Changes of prior tracheostomy. The thyroid gland and remaining cervical soft tissues are normal in appearance. The lung apices demonstrate no abnormalities. CT/CT cervical spine wo con IMPRESSION: 1. No evidence of acute intracranial hemorrhage or edematous territorial infarction. Moderate underlying microangiopathy and generalized cerebral volume loss. 2. No evidence of acute fracture or traumatic subluxation of the cervical spine. 3. Moderate multilevel degenerative spondyloarthropathy of the cervical spine as described in detail above. Most notably on this limited exam without intrathecal contrast, there appears to be at least mild spinal canal stenoses at C4-C5 and C5-C6.
[2022-01-15 18:39] VITALS: BP 114/60; BP 120/80; PULSE 104; PULSE 72; RESP 16; TEMP 36.6; O2SAT 93; O2SAT 98; BMI 29.4
--- NOTE | 2022-01-15 18:49 | ED.FALL ---
HPI - Fall General Chief Complaint: Fall Stated Complaint: fall, swollen knee/hit head Time Seen by Provider: 01/15/22 18:49 Source: patient Mode of arrival: EMS History of Present Illness HPI Narrative: Patient history of atrial fibrillation on Eliquis as she fell 2 x 1 last night in the evening and today again prior to arrival. Patient was using walker fell lightheaded and fell last night when she fell she landed on her buttocks and had had some swelling over the back of the head no loss of consciousness no chest pain or palpitation. Earlier when she fell today she landed on her left knee with swelling of L knee patient complaining of pain in the head tailbone and left knee. Related Data Home Medications Medication Instructions Recorded Confirmed lorazepam 1 mg tablet 1 tab PO BID PRN Anxiety 11/18/20 03/08/21 omeprazole 20 mg capsule,delayed 1 cap PO BID 11/18/20 03/08/21 release simvastatin 10 mg tablet 1 tab PO DAILY 11/18/20 03/08/21 Previous Rx's Medication Instructions Recorded apixaban 5 mg tablet (Eliquis) 5 mg PO BID 30 days #60 tabs 10/13/20 magnesium oxide 400 mg (241.3 mg 400 mg PO BIDPC #60 tabs 11/26/20 magnesium) tablet Omeprazole Oral Susp [PriLOSEC 30 mg G-tube DAILY@0630 30 days 02/04/21 Oral Susp] acetazolamide 250 mg tablet 250 mg G-tube BID 30 days #60 tabs 02/04/21 digoxin 125 mcg (0.125 mg) tablet 0.125 mg PO DAILY 30 days #30 tabs 02/04/21 diltiazem HCl 30 mg tablet 60 mg PO QID 30 days #240 tabs 02/04/21 furosemide 20 mg tablet 20 mg PO DAILY 30 days #30 tabs 02/04/21 linezolid 600 mg tablet 600 mg PO BID #12 tabs 02/04/21 metoprolol tartrate 50 mg tablet 100 mg G-tube BID 30 days #120 tabs 02/04/21 nystatin 100,000 unit/gram topical 1 appl topical TID 30 days 02/04/21 powder spironolactone 25 mg tablet 12.5 mg PO DAILY 30 days #15 tabs 02/04/21 sucralfate 100 mg/mL oral 0.5 g (5 mL) PO QIDACHS 30 days 02/04/21 suspension Allergies Allergy/AdvReac Type Severity Reaction Status Date / Time amiodarone Allergy Severe Difficulty Verified 03/08/21 14:02 Breathing SEASONAL ALLERGIES Allergy Unknown SNEEZING Uncoded 04/23/20 15:17 RUNNY NOSE Review of Systems Review of Systems: Yes all other systems are reviewed and are negative [facility] Past Medical History Medical History Acalculous cholecystitis Acute hypercapnic respiratory failure due to obstructive sleep apnea Afib Bacteriuria CAD (coronary artery disease) CHF (congestive heart failure) Essential hypertension Heart failure with preserved ejection fraction HTN (hypertension) Myocardial infarct Obesity PAF (paroxysmal atrial fibrillation) 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 Sick sinus syndrome Sleep apnea Symptomatic bradycardia Throat cancer Surgical History Atrial fibrillation status post cardioversion Social History Social History Household Members: Children Housing: House Do you presently have visiting nurse or other home services: Yes Alcohol intake: former Patient Tobacco Use Status: Former Tobacco user Years Smoked: 41 yrs Use of substances other than those prescribed or required for medical reasons: No Advance Directives: Yes Advance Directives on File: Yes Advance Directives Date on File: 01/13/21 service: No Current occupational status: disabled Physical Exam Vital Signs: Vital Signs: Last Vital Signs Temp 97.9 F 01/16/22 00:20 Pulse 110 H 01/16/22 00:20 Resp 12 01/16/22 00:20 BP 114/61 01/16/22 00:20 Pulse Ox 92 01/16/22 00:20 O2 Del Method 01/16/22 00:20 BMI result Body Mass Index 29.4 Appearance: Alert. Oriented X3. No acute distress. Eyes: PERRLA, No Nystagmus HEENT: Pharynx normal. Oral Mucosa moist soft tissue swelling of the occipital area Neck: Normal inspection. Neck supple. In cervical collar with diffuse neck pain CVS: Irregular irregular heart rate. Pulses normal. Respiratory: No respiratory distress. Equal air entry bilateral, no wheezing/rales/rhonchi Abdomen: Soft and nontender. Bowel sounds are present, no mass palpable, no CVA tenderness Skin: Skin warm and dry. Normal skin color. Normal skin turgor. Extremities: No lower extremity edema. No calf tenderness, tenderness and swelling left knee ++ Back: Tenderness at the coccyx area Neuro: Oriented X 3. No motor deficit. No sensory deficit.No cerebellar signs , cranial nerves II-XII intact MDM - Fall MDM Narrative Medical decision making narrative: Patient with near-syncope episode episode happened 2 times with history of AFib etiology not very clear will admit patient for further evaluation for near syncope rule out bradycardia causing the syncope episode Lab Data Attestation: I reviewed the patient's lab results. Result diagrams: 01/15/22 19:38 01/15/22 19:38 Labs: Lab Results 01/15/22 01/15/22 01/15/22 Range/Units 19:38 19:38 19:38 WBC 10.8 (4.8-10.8) X10*3/uL RBC 4.80 (4.20-5.50) X10*6/uL Hgb 14.2 (12.0-16.0) g/dl Hct 42.5 (37.0-47.0) % MCV 88.5 (80.0-98.0) fL MCH 29.6 (27.0-33.0) pg MCHC 33.4 (31.0-35.0) g/dl RDW 14.2 (11.0-16.0) % Plt Count 322 (160-400) X10*3/uL MPV 10.0 (9.4-12.3) fL Immature Gran % (Auto) 0.2 (0.0-0.4) % Neut % (Auto) 82.1 H (45-73) % Lymph % (Auto) 10.1 L (20-40) % [place] % (Auto) 6.7 (2-11) % Eos % (Auto) 0.5 (0-4) % Baso % (Auto) 0.4 (0-2) % Lymph # (Auto) 1.1 L (1.2-4.9) X10*3/uL [place] # (Auto) 0.7 (0.1-1.2) X10*3/uL Eos # (Auto) 0.1 (0.0-0.4) X10*3/uL Baso # (Auto) 0.0 (0.0-0.2) X10*3/uL Abs Immat Gran (auto) 0.02 (0.00-0.03) X10*3/uL Absolute Neuts (auto) 8.9 H (2.0-8.3) x10*3/uL Absolute Nucleated RBC 0.000 (0.0-0.012) X10*3/uL Nucleated RBC % (auto) 0.0 (0.0-0.2) /100WBC PT (9.9-13.0) SEC INR (0.9-1.1) APTT 37.2 (24.1-38.0) SEC Sodium 134 L (135-145) mmol/L Potassium 3.2 L (3.3-5.1) mmol/L Chloride 82 L (96-108) mmol/L Carbon Dioxide 39 H (22-29) mmol/L Anion Gap 16 (12-20) BUN 19 H D (9-16) mg/dL Creatinine 1.01 (0.5-1.4) mg/dL Estim Creat Clear Calc 53.0 Estimated GFR 54 Random Glucose 162 H (60-115) mg/dL Calcium 9.3 (8.4-10.2) mg/dL Total Bilirubin 0.6 (0.0-1.0) mg/dL AST 18 (5-31) U/L ALT 11 (0-31) U/L Alkaline Phosphatase 82 (39-117) U/L Total Protein 6.7 (6.5-8.0) g/dL Albumin 3.9 (3.5-5.0) g/dL COVID-19 ([facility]) (Negative) COVID-19 Clin Com 01/15/22 01/15/22 Range/Units 19:38 23:53 WBC (4.8-10.8) X10*3/uL RBC (4.20-5.50) X10*6/uL Hgb (12.0-16.0) g/dl Hct (37.0-47.0) % MCV (80.0-98.0) fL MCH (27.0-33.0) pg MCHC (31.0-35.0) g/dl RDW (11.0-16.0) % Plt Count (160-400) X10*3/uL MPV (9.4-12.3) fL Immature Gran % (Auto) (0.0-0.4) % Neut % (Auto) (45-73) % Lymph % (Auto) (20-40) % [place] % (Auto) (2-11) % Eos % (Auto) (0-4) % Baso % (Auto) (0-2) % Lymph # (Auto) (1.2-4.9) X10*3/uL [place] # (Auto) (0.1-1.2) X10*3/uL Eos # (Auto) (0.0-0.4) X10*3/uL Baso # (Auto) (0.0-0.2) X10*3/uL Abs Immat Gran (auto) (0.00-0.03) X10*3/uL Absolute Neuts (auto) (2.0-8.3) x10*3/uL Absolute Nucleated RBC (0.0-0.012) X10*3/uL Nucleated RBC % (auto) (0.0-0.2) /100WBC PT 16.2 H (9.9-13.0) SEC INR 1.4 H (0.9-1.1) APTT (24.1-38.0) SEC Sodium (135-145) mmol/L Potassium (3.3-5.1) mmol/L Chloride (96-108) mmol/L Carbon Dioxide (22-29) mmol/L Anion Gap (12-20) BUN (9-16) mg/dL Creatinine (0.5-1.4) mg/dL Estim Creat Clear Calc Estimated GFR Random Glucose (60-115) mg/dL Calcium (8.4-10.2) mg/dL Total Bilirubin (0.0-1.0) mg/dL AST (5-31) U/L ALT (0-31) U/L Alkaline Phosphatase (39-117) U/L Total Protein (6.5-8.0) g/dL Albumin (3.5-5.0) g/dL COVID-19 ([facility]) Negative (Negative) COVID-19 Clin Com See Note ECG Data Attestation: I personally reviewed and interpreted this ECG as follows: Interpretation: Atrial fibrillation with ventricular rate of 109 beats per minute no acute ST T wave changes no acute ischemia Discharge Plan Discharge Clinical Impression: Near syncope, Atrial fibrillation, Fall, Contusion of knee, left Patient Disposition: Admitted As Inpatient
--- NOTE | 2022-01-15 19:04 | ECG_ITS ---
Test Reason : FALL Blood Pressure : / mmHG Vent. Rate : 109 BPM Atrial Rate : 000 BPM P-R Int : 000 ms QRS Dur : 088 ms QT Int : 396 ms P-R-T Axes : 000 -03 014 degrees QTc Int : 533 ms Atrial fibrillation with rapid ventricular response Nonspecific T wave abnormality Abnormal ECG When compared with ECG of 27-DEC-2020 13:14, Atrial fibrillation has replaced Sinus rhythm Vent. rate has increased BY 39 BPM Referred By: Michael Jones Electronically Signed By:COLE BAR
[2022-01-15] MEDS: ondansetron HCL 4 MG/2 ML VIAL IVPUSH (19:25)
[2022-01-15] MEDS: Morphine Sulfate 4 MG/ML CARTRIDGE IVPUSH (19:25)
[2022-01-15 19:44] LABS: MANUAL DIFF FLAG NO
[2022-01-15 19:46] LABS: Basophils Percent Auto 0.4 % (0-2); Eosinophils Absolute Auto 0.1 X10*3/uL (0.0-0.4); Eosinophils Percent Auto 0.5 % (0-4); Hematocrit 42.5 % (37.0-47.0); Hemoglobin 14.2 g/dl (12.0-16.0); Imm Gran Abs Auto 0.02 X10*3/uL (0.00-0.03); Imm Gran Pct Auto 0.2 % (0.0-0.4); Lymphocytes Absolute Auto 1.1 X10*3/uL (1.2-4.9); Lymphocytes Percent Auto 10.1 % (20-40); Mean Corpuscular HGB Conc 33.4 g/dl (31.0-35.0); Mean Corpuscular Hemoglobin 29.6 pg (27.0-33.0); Mean Corpuscular Volume 88.5 fL (80.0-98.0); Monocytes Absolute Auto 0.7 X10*3/uL (0.1-1.2); Monocytes Percent Auto 6.7 % (2-11); Neutrophils Absolute Auto 8.9 x10*3/uL (2.0-8.3); Neutrophils Percent Auto 82.1 % (45-73); Platelet Count 322 X10*3/uL (160-400); Red Cell Distribution Width 14.2 % (11.0-16.0); White Blood Count 10.8 X10*3/uL (4.8-10.8)
[2022-01-15 19:51] LABS: INTERNATIONAL NORM RATIO 1.4 (0.9-1.1); Prothrombin Time 16.2 SEC (9.9-13.0)
[2022-01-15 19:54] VITALS: BP 99/65; PULSE 104; RESP 18; TEMP 36.6; O2SAT 96
[2022-01-15 20:04] LABS: Partial Thromboplastin Time 37.2 SEC (24.1-38.0)
[2022-01-15 20:06] LABS: Alanine Aminotransferase 11 U/L (0-31); Albumin Level 3.9 g/dL (3.5-5.0); Alkaline Phosphatase 82 U/L (39-117); Anion Gap 16 (12-20); Aspartate Amino Transferase 18 U/L (5-31); Bilirubin Total 0.6 mg/dL (0.0-1.0); Blood Urea Nitrogen 19 mg/dL (9-16); Calcium 9.3 mg/dL (8.4-10.2); Carbon Dioxide 39 mmol/L (22-29); Chloride 82 mmol/L (96-108); Estimated Glomerular Filt Rate 54; Glucose Random 162 mg/dL (60-115); Potassium 3.2 mmol/L (3.3-5.1); Sodium 134 mmol/L (135-145); Total Protein 6.7 g/dL (6.5-8.0)
[2022-01-15 21:49] VITALS: BP 104/59; PULSE 91; RESP 12
[2022-01-15] MEDS: Morphine Sulfate 2 MG/ML CARTRIDGE IVPUSH (22:04)
[2022-01-16] VITALS (7 sets, daily range): BP systolic 92–127; BP diastolic 53–73; PULSE 77–110; RESP 10–20; TEMP 36.6–37.1; O2SAT 92–98
[2022-01-16 00:14] LABS: COVID-19 Test Negative (Negative)
[2022-01-16] MEDS: 0.9 % Sodium Chloride 1,000 ML 500 ML IVCONT (00:50)
--- NOTE | 2022-01-16 01:37 | PC.NURSE ---
Pt needed bathroom, but unable to stand and walk put a purewick in place. Pt agreeable to it calm and cooperative.
[2022-01-16] MEDS: Potassium Bicarbonate/Cit AC 25 MEQ TABLET.EFF PO (01:57)
--- NOTE | 2022-01-16 02:34 | PM.IMHP ---
History of Present Illness Date of Service: 01/16/22 Chief Complaint: Fall 76-year-old female with a past medical history of hypertension, hyperlipidemia, CAD, CHF, AFib on Eliquis, history of head and neck cancer, sick sinus syndrome, history of bradycardia, ANITA, morbid obesity presented to the hospital today with a chief complaint of fall. Patient reported that the day before she was walking with the help of her walker and showed only she lost control and fell on her buttocks; did not lose consciousness; denies any headaches palpitations lightheadedness or dizziness.; today she had similar episode and hit her head. Subsequently came to the ER for further evaluation. Denies any shortness of breath. Patient reported that when she fell she had pain in her obtain bone and also on the left knee; denies any swelling. Denies any nausea vomiting or diarrhea. Denies any urinary symptoms. Denies any chest pain Review of all other systems is negative except mentioned above ER course: Per ER team patient's Exam was benign, lumbar spine x-ray showed no acute findings, left knee x-ray showed no evidence of fracture but noted moderate knee joint effusion, chest x-ray showed no acute cardiopulmonary process, CT head showed no acute intracranial hemorrhage, CT C-spine showed no acute fracture or subluxation; creatinine of 1.0-baseline 0.7; orthostatics were negative; patient blood pressure on the soft side; patient received morphine for pain, normal saline IV fluids, potassium supplementation, mild a drain x1; admitted to the hospital for further management PMFSH Medical History Acalculous cholecystitis Acute hypercapnic respiratory failure due to obstructive sleep apnea Afib Bacteriuria CAD (coronary artery disease) CHF (congestive heart failure) Essential hypertension Heart failure with preserved ejection fraction HTN (hypertension) Myocardial infarct Obesity PAF (paroxysmal atrial fibrillation) 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 Sick sinus syndrome Sleep apnea Symptomatic bradycardia Throat cancer Pertinent family history: reviewed Surgical History Atrial fibrillation status post cardioversion Social History Household Members: Children Housing: House Do you presently have visiting nurse or other home services: Yes Alcohol intake: former Patient Tobacco Use Status: Former Tobacco user Years Smoked: 41 yrs Use of substances other than those prescribed or required for medical reasons: No Advance Directives: Yes Advance Directives on File: Yes Advance Directives Date on File: 01/13/21 service: No Current occupational status: disabled Meds Allergies Allergy/AdvReac Type Severity Reaction Status Date / Time amiodarone Allergy Severe Difficulty Verified 03/08/21 14:02 Breathing SEASONAL ALLERGIES Allergy Unknown SNEEZING Uncoded 04/23/20 15:17 RUNNY NOSE Active Medications: Current Medications Acetaminophen (Acetaminophen 325 Mg Tablet) 650 mg PO Q6H PRN PRN Reason: Pain, Mild (Pain Scale 1-3) Melatonin (Melatonin 3 Mg Tablet) 6 mg PO BEDTIME PRN PRN Reason: Insomnia Senna (Sennosides 8.6 Mg Tablet) 17.2 mg PO BEDTIME PRN PRN Reason: Constipation Sodium Chloride (0.9 % Sodium Chloride Flush 3 Ml Syringe) 3 ml IVFLUSH [facility] Home Medications Medication Instructions Recorded Confirmed Last Taken Type lorazepam 1 mg tablet 1 tab PO BID PRN Anxiety 11/18/20 03/08/21 Unknown History omeprazole 20 mg capsule,delayed 1 cap PO BID 11/18/20 03/08/21 Unknown History release escitalopram oxalate 10 mg tablet 1 tab PO DAILY 01/16/22 01/16/22 Unknown History gabapentin 300 mg capsule 1 cap PO BID 01/16/22 01/16/22 Unknown History lorazepam 1 mg tablet 1 tab PO TID PRN Anxiety 01/16/22 01/16/22 Unknown History torsemide 20 mg tablet 1 tab PO DAILY 01/16/22 01/16/22 Unknown History Physical Exam Vital Signs and Narrative: Vital Signs: Last Vital Signs Temp 97.9 F 01/16/22 00:20 Pulse 97 01/16/22 02:22 Resp 15 01/16/22 02:22 BP 92/55 L 01/16/22 02:22 Pulse Ox 97 01/16/22 02:22 O2 Del Method 01/16/22 02:22 BMI result Body Mass Index 29.4 Gen: Appears be in no acute distress HEENT: NCAT, Moist mucosa. Pulmonary: Vesicular breath sounds, fair air entry CVS: Normal S1-S2 Abdomen: BS+, Soft, Nontender Extremities: Warm well perfused Neuro: Alert and awake. Grossly nonfocal Results Labs CBC and Chem 7: 01/15/22 19:38 01/15/22 19:38 Labs: Laboratory Results - last 24 hr 01/15/22 01/15/22 01/15/22 19:38 19:38 19:38 MCV 88.5 MCH 29.6 MCHC 33.4 RDW 14.2 Plt Count 322 MPV 10.0 Immature Gran % (Auto) 0.2 Neut % (Auto) 82.1 H Lymph % (Auto) 10.1 L [place] % (Auto) 6.7 Eos % (Auto) 0.5 Baso % (Auto) 0.4 Lymph # (Auto) 1.1 L [place] # (Auto) 0.7 Eos # (Auto) 0.1 Baso # (Auto) 0.0 Abs Immat Gran (auto) 0.02 Absolute Neuts (auto) 8.9 H Absolute Nucleated RBC 0.000 Nucleated RBC % (auto) 0.0 PT INR APTT 37.2 Anion Gap 16 Estim Creat Clear Calc 53.0 Estimated GFR 54 Random Glucose 162 H Calcium 9.3 Total Bilirubin 0.6 AST 18 ALT 11 Alkaline Phosphatase 82 Total Protein 6.7 Albumin 3.9 COVID-19 ([facility]) COVID-AdReady 01/15/22 01/15/22 19:38 23:53 MCV MCH MCHC RDW Plt Count MPV Immature Gran % (Auto) Neut % (Auto) Lymph % (Auto) [place] % (Auto) Eos % (Auto) Baso % (Auto) Lymph # (Auto) [place] # (Auto) Eos # (Auto) Baso # (Auto) Abs Immat Gran (auto) Absolute Neuts (auto) Absolute Nucleated RBC Nucleated RBC % (auto) PT 16.2 H INR 1.4 H APTT Anion Gap Estim Creat Clear Calc Estimated GFR Random Glucose Calcium Total Bilirubin AST ALT Alkaline Phosphatase Total Protein Albumin COVID-19 ([facility]) Negative COVID-19 Recroup See Note Imaging Radiologist's Impressions: Impressions Cervical Spine CT 01/15/22 21:22 IMPRESSION: 1. No evidence of acute intracranial hemorrhage or edematous territorial infarction. Moderate underlying microangiopathy and generalized cerebral volume loss. 2. No evidence of acute fracture or traumatic subluxation of the cervical spine. 3. Moderate multilevel degenerative spondyloarthropathy of the cervical spine as described in detail above. Most notably on this limited exam without intrathecal contrast, there appears to be at least mild spinal canal stenoses at C4-C5 and C5-C6. Head CT 01/15/22 21:50 IMPRESSION: 1. No evidence of acute intracranial hemorrhage or edematous territorial infarction. Moderate underlying microangiopathy and generalized cerebral volume loss. 2. No evidence of acute fracture or traumatic subluxation of the cervical spine. 3. Moderate multilevel degenerative spondyloarthropathy of the cervical spine as described in detail above. Most notably on this limited exam without intrathecal contrast, there appears to be at least mild spinal canal stenoses at C4-C5 and C5-C6. Chest X-Ray 01/15/22 22:57 IMPRESSION: 1. No acute intrathoracic disease. Resolved CHF and pleural effusions when compared to prior 2. Postop hardware lumbosacral spine. No acute finding. Knee X-Ray 01/15/22 22:57 IMPRESSION: No fractures. Moderate knee joint effusion. Lumbar Spine X-Ray 01/15/22 22:57 IMPRESSION: 1. No acute intrathoracic disease. Resolved CHF and pleural effusions when compared to prior 2. Postop hardware lumbosacral spine. No acute finding. Assessment and Plan (1) Near syncope: Status: Acute (2) Atrial fibrillation: Status: Acute Plan 76-year-old female with a past medical history of hypertension, hyperlipidemia, CAD, CHF, AFib on Eliquis, history of head and neck cancer, sick sinus syndrome, history of bradycardia, ANITA, morbid obesity presented to the hospital today with a chief complaint of fallx2/ associated lightheadedness. Concern for near syncope. Admitted for further management given Fall/near syncope: Currently orthostatic vitals negative CT head showed no acute intracranial process Lumbar x-ray, knee x-ray showed no acute fracture. CT spine showed no acute fracture. Fall precautions PT/OT Telemetry Chest x-ray showed no evidence of PNA; UA negative. EKG showed NO bradycardia but patient had prior history of bradycardia. Monitor on telemetry Cycle cardiac enzymes AREN: Patient baseline creatinine around 0.5-0.7. Creatinine on presentation is 1.0. BUN elevated. Patient being given gentle IV fluids. Avoid nephrotoxins for now. Left knee effusion: Orthopedics follow-up. History of AFib: Continue home Eliquis, digoxin. Will continue diltiazem with holding parameters. History of CHF: Does not appear to be in fluid overload currently. Hold Lasix, Aldactone given soft blood pressure for now. History of hypertension: Hold home metoprolol for now. History ANITA: CPAP. History of anxiety/depression: Continue home Ativan, escitalopram DVT ppx: Eliquis Code Status: Full code. Quality Stroke Does the patient have a stroke diagnosis?: No VTE Prior VTE?: No VTE Risk Level:: Medical - moderate - high VTE Device Contraindication: Treatment Not Indicated VTE Drug Contraindication: N/A - Med Ordered
[2022-01-16 04:18] LABS: MANUAL DIFF FLAG NO
[2022-01-16 04:21] LABS: Basophils Percent Auto 0.4 % (0-2); Eosinophils Absolute Auto 0.2 X10*3/uL (0.0-0.4); Eosinophils Percent Auto 1.6 % (0-4); Hematocrit 39.2 % (37.0-47.0); Hemoglobin 12.7 g/dl (12.0-16.0); Imm Gran Abs Auto 0.03 X10*3/uL (0.00-0.03); Imm Gran Pct Auto 0.3 % (0.0-0.4); Lymphocytes Absolute Auto 1.4 X10*3/uL (1.2-4.9); Mean Corpuscular HGB Conc 32.4 g/dl (31.0-35.0); Mean Corpuscular Hemoglobin 29.6 pg (27.0-33.0); Mean Corpuscular Volume 91.4 fL (80.0-98.0); Monocytes Absolute Auto 0.7 X10*3/uL (0.1-1.2); Monocytes Percent Auto 7.5 % (2-11); Neutrophils Percent Auto 75.2 % (45-73); Platelet Count 280 X10*3/uL (160-400); Red Blood Count 4.29 X10*6/uL (4.20-5.50); Red Cell Distribution Width 14.4 % (11.0-16.0); White Blood Count 9.3 X10*3/uL (4.8-10.8)
[2022-01-16 04:40] LABS: Anion Gap 13 (12-20); Blood Urea Nitrogen 17 mg/dL (9-16); Calcium 8.7 mg/dL (8.4-10.2); Carbon Dioxide 39 mmol/L (22-29); Chloride 86 mmol/L (96-108); Creatinine Clr Calc Pharmacy 58.1; Estimated Glomerular Filt Rate 60; Glucose Random 115 mg/dL (60-115); Potassium 3.4 mmol/L (3.3-5.1); Sodium 135 mmol/L (135-145)
[2022-01-16 04:44] LABS: Troponin-I High Sensitivity 8.1 ng/L (<3.5-17.0)
[2022-01-16] MEDS: Acetaminophen 325 MG TABLET 650 MG PO ×2 (05:49→22:42)
--- NOTE | 2022-01-16 09:05 | PC.NURSE ---
no urine into canister is noted for her purwick; this was checked and no issues noted. will onctinue to monitor
--- NOTE | 2022-01-16 09:48 | PHA.MEDREC ---
MED REC COMPLETE, PATIENTS DAUGHTER IS GOING TO DRIVE TO HOUSE TO READ ME MEDICATION LIST TO CONFIRM WHAT WE PUT IN FROM PHARMACY HISTORY Pharmacy Consult ? Medication Reconciliation Pharmacy has completed the medication reconciliation.
--- NOTE | 2022-01-16 10:05 | PM.CNOR ---
History of Present Illness HPI Consult date: 01/17/22 Chief complaint: Near syncope Narrative: Ms. Ch is a 76 yo female who presented to the ER after sustaining a fall. She complained of left knee pain. X-rays obtained in the ED were negative for any acute fracture or dislocation. She was found to have a moderate joint effusion on x-ray. Therefore, orthopedics was consulted for further evaluation. 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 Sick sinus syndrome Sleep apnea Symptomatic bradycardia Throat cancer Family History Family History (Updated 01/16/22 @ 11:18 by Vladislav Cervantes MD) Daughter Breast cancer Surgical History Surgical History Atrial fibrillation status post cardioversion Social History Social History Household Members: Children Housing: House Do you presently have visiting nurse or other home services: Yes Alcohol intake: former Patient Tobacco Use Status: Former Tobacco user Years Smoked: 41 yrs Use of substances other than those prescribed or required for medical reasons: No Advance Directives: Yes Advance Directives on File: Yes Advance Directives Date on File: 01/13/21 service: No Current occupational status: disabled Meds Allergies Allergy/AdvReac Type Severity Reaction Status Date / Time amiodarone Allergy Severe Difficulty Verified 03/08/21 14:02 Breathing SEASONAL ALLERGIES Allergy Unknown SNEEZING Uncoded 04/23/20 15:17 RUNNY NOSE Active Medications: Current Medications Acetaminophen (Acetaminophen 325 Mg Tablet) 650 mg PO Q6H PRN PRN Reason: Pain, Mild (Pain Scale 1-3) Last Admin: 01/16/22 05:49 Dose: 650 mg Melatonin (Melatonin 3 Mg Tablet) 6 mg PO BEDTIME PRN PRN Reason: Insomnia Pharmacy Consult (Consult Rx Perform Med Rec) 1 each MISCELLANE ONCE PRN PRN Reason: Consult order Senna (Sennosides 8.6 Mg Tablet) 17.2 mg PO BEDTIME PRN PRN Reason: Constipation Sodium Chloride (0.9 % Sodium Chloride Flush 3 Ml Syringe) 3 ml IVFLUSH QSHIFT [facility] Home Medications Medication Instructions Recorded Confirmed Last Taken Type omeprazole 20 mg capsule,delayed 1 cap PO BID 11/18/20 01/16/22 Unknown History release escitalopram oxalate 10 mg tablet 1 tab PO DAILY 01/16/22 01/16/22 Unknown History gabapentin 300 mg capsule 1 cap PO BID 01/16/22 01/16/22 Unknown History lorazepam 1 mg tablet 1 tab PO TID PRN Anxiety 01/16/22 01/16/22 Unknown History metoprolol tartrate 100 mg tablet 100 mg PO BID 01/16/22 01/16/22 Unknown History simvastatin 10 mg tablet 10 mg PO BEDTIME 01/16/22 01/16/22 Unknown History sucralfate 1 gram tablet 500 mg PO QIDACHS 01/16/22 01/16/22 Unknown History torsemide 20 mg tablet 1 tab PO DAILY 01/16/22 01/16/22 Unknown History Physical Exam Vital Signs: Vital Signs: Last Vital Signs Temp 97.9 F 01/16/22 09:09 Pulse 88 01/16/22 09:09 Resp 10 L 01/16/22 09:09 BP 107/73 01/16/22 09:09 Pulse Ox 98 01/16/22 09:09 O2 Del Method 01/16/22 09:09 BMI result Body Mass Index 29.4 Const: General: cooperative and no acute distress Orientation/consciousness: patient oriented x3 Resp: Effort & Inspection: normal respiratory effort and able to speak in complete sentences Cardio: Peripheral pulses: Peripheral pulses 2+ throughout Skin: General skin exam: no rashes or lesions noted Neuro: General: patient oriented x3 Extrem: Other: Left knee normal to inspection no ecchymosis erythema or open wounds. Mild swelling. Able to flex and extend with pain. Able to perform a straight leg raise with pain. Able to dorsiflex and plantarflex. Sensation intact. Pedal pulse intact. Results Labs Result Diagrams: 01/16/22 03:54 01/16/22 03:54 Labs: Abnormal lab results 01/15/22 01/15/22 01/15/22 Range/Units 19:38 19:38 19:38 Neut % (Auto) 82.1 H (45-73) % Lymph % (Auto) 10.1 L (20-40) % Lymph # (Auto) 1.1 L (1.2-4.9) X10*3/uL Absolute Neuts (auto) 8.9 H (2.0-8.3) x10*3/uL PT 16.2 H (9.9-13.0) SEC INR 1.4 H (0.9-1.1) Sodium 134 L (135-145) mmol/L Potassium 3.2 L (3.3-5.1) mmol/L Chloride 82 L (96-108) mmol/L Carbon Dioxide 39 H (22-29) mmol/L BUN 19 H D (9-16) mg/dL Random Glucose 162 H (60-115) mg/dL 01/16/22 01/16/22 Range/Units 03:54 03:54 Neut % (Auto) 75.2 H (45-73) % Lymph % (Auto) 15.0 L (20-40) % Lymph # (Auto) (1.2-4.9) X10*3/uL Absolute Neuts (auto) (2.0-8.3) x10*3/uL PT (9.9-13.0) SEC INR (0.9-1.1) Sodium (135-145) mmol/L Potassium (3.3-5.1) mmol/L Chloride 86 L (96-108) mmol/L Carbon Dioxide 39 H (22-29) mmol/L BUN 17 H (9-16) mg/dL Random Glucose (60-115) mg/dL H & H 01/15/22 01/16/22 Range/Units 19:38 03:54 Hgb 14.2 12.7 (12.0-16.0) g/dl Hct 42.5 39.2 (37.0-47.0) % Coagulation 01/15/22 Range/Units 19:38 INR 1.4 H (0.9-1.1) All other labs normal. Assessment and Plan (1) Contusion of knee, left: Status: Acute Plan Ms. Ch is a 76 yo femalw who presented to the ED after a fall. She compained of left knee pain therefore orthopedics was consulted for further evaluation. X-rays of the left knee are negative for any acute fracture or dislocation. Knee immobilizer as needed for comfort and walker. May WBAT. Gentle ROM okay. No further orthopedic intervention needed at this time. Would not recommend knee aspiration at this time and will likely resolve without intervention. May followup in the outpatient clinic as needed. Procedures Date of Service Date of Service: 01/17/22
--- NOTE | 2022-01-16 10:11 | MHC.CM.PN ---
Patient lives at home w/her son. [place] and patient has access to all needs on main floor of home. Patient is able to do stairs x's 2 assist to go to appointments. Previously at [facility] for several months and was D/C'd to home on 11/25/21 from there. Prior to that was at [facility] and previous to [facility] was [facility]. Family happy w/[facility] and prefers for patient to return following this [facility] stay. If no beds, etc, family okay w/[facility] referral. While at home, patient had [facility] for OT and PT services. [facility] was scheduled for this coming 01/19/22 to meet w/the family at 2:00pm to go over additional in-home assistance they could offer as family does not feel as though she is safe at home (she is alone all day as son works during the day; daughters try to visit as much as they can, but for the most part, patient is alone and unsafe). Per family, patient was on a ground/mechanical soft diet at home just previous to this hospital admission. At home she owns a walker, WC and has a hospital bed. Should patient still be at [facility] tomorrow 01/17/22, family intends on calling [facility] to inquire if they can meet them at [facility] for the meeting in hopes of also having the presence of a hospital CM as well in order to make the best D/C decisions for the patient. Should patient be D/C'd prior to [facility]'s availability for a visit/meeting, the goal is SNF and [facility] is first choice. CM to follow.
--- NOTE | 2022-01-16 10:19 | P.PNIM_ITS ---
Subjective Subjective Date of Service: 01/16/22 Interval History: cc: fall interval history: left knee pain, light headed Cardiovascular Cardiovascular: Reports no additional cardiovascular complaints Gastrointestinal Gastrointestinal: Reports no additional gastrointestinal complaints Physical Exam Vital Signs: Vital Signs: Last Vital Signs Temp 97.9 F 01/16/22 09:09 Pulse 88 01/16/22 09:09 Resp 10 L 01/16/22 09:09 BP 107/73 01/16/22 09:09 Pulse Ox 98 01/16/22 09:09 O2 Del Method 01/16/22 09:09 BMI result Body Mass Index 29.4 General: AO X 3, no acute distress Resp: CTA bilateral, no accessory muscles used CVS: S1,S2,RRR GI: soft, non tender, non distended Neuro: motor grossly intact, alert Psych: appropriate affect, appropriate insight est: left knee tender, swollen Objective Data Active Medications Acetaminophen (Acetaminophen 325 Mg Tablet) 650 mg PO Q6H PRN PRN Reason: Pain, Mild (Pain Scale 1-3) Last Admin: 01/16/22 05:49 Dose: 650 mg Documented By: ANISH Apixaban (Apixaban 5 Mg Tablet) 5 mg PO BID [facility] Diltiazem HCl (Diltiazem Hcl Cd 120 Mg Cap.Er.Deg) 120 mg PO DAILY [facility]; Protocol Escitalopram Oxalate (Escitalopram Oxalate 10 Mg Tablet) 10 mg PO DAILY [facility] Sodium Chloride (Ns) 1,000 mls @ 80 mls/hr IVCONT .[id number] [facility] Stop: 01/16/22 22:59 Lorazepam (Lorazepam 1 Mg Tablet) 1 mg PO TID PRN PRN Reason: Anxiety Magnesium Ox[facility] ([facility] 400 Mg [facility]t) [facility] Melatonin (Melatonin 3 Mg Tablet) 6 mg PO BEDTIME PRN PRN Reason: Insomnia Metoprolol Tartrate (Metoprolol Tartrate 100 Mg Tablet) 100 mg PO BID [facility]; Protocol Non-Formulary Medication (Simvastatin) 10 mg PO BEDTIME [facility] Omeprazole (Omeprazole 20 Mg Capsule.Dr) 20 mg PO BID [facility] Pharmacy Consult (Consult Rx Perform Med Rec) 1 each MISCELLANE ONCE PRN PRN Reason: Consult order Senna (Sennosides 8.6 Mg Tablet) 17.2 mg PO BEDTIME PRN PRN Reason: Constipation Sodium Chloride (0.9 % Sodium Chloride Flush 3 Ml Syringe) 3 ml IVFLUSH QSHIFT [facility] Labs CBC & Chem 7: 01/16/22 03:54 01/16/22 03:54 Labs: Laboratory Results - last 24 hr 01/15/22 01/15/22 01/15/22 19:38 19:38 19:38 MCV 88.5 MCH 29.6 MCHC 33.4 RDW 14.2 Plt Count 322 MPV 10.0 Immature Gran % (Auto) 0.2 Neut % (Auto) 82.1 H Lymph % (Auto) 10.1 L [place] % (Auto) 6.7 Eos % (Auto) 0.5 Baso % (Auto) 0.4 Lymph # (Auto) 1.1 L [place] # (Auto) 0.7 Eos # (Auto) 0.1 Baso # (Auto) 0.0 Abs Immat Gran (auto) 0.02 Absolute Neuts (auto) 8.9 H Absolute Nucleated RBC 0.000 Nucleated RBC % (auto) 0.0 PT INR APTT 37.2 Anion Gap 16 Estim Creat Clear Calc 53.0 Estimated GFR 54 Random Glucose 162 H Calcium 9.3 Total Bilirubin 0.6 AST 18 ALT 11 Alkaline Phosphatase 82 Troponin I High Sens Total Protein 6.7 Albumin 3.9 COVID-19 ([facility]) COVID-19 Clin Com 01/15/22 01/15/22 01/15/22 19:38 19:38 23:53 MCV MCH MCHC RDW Plt Count MPV Immature Gran % (Auto) Neut % (Auto) Lymph % (Auto) [place] % (Auto) Eos % (Auto) Baso % (Auto) Lymph # (Auto) [place] # (Auto) Eos # (Auto) Baso # (Auto) Abs Immat Gran (auto) Absolute Neuts (auto) Absolute Nucleated RBC Nucleated RBC % (auto) PT 16.2 H INR 1.4 H APTT Anion Gap Estim Creat Clear Calc Estimated GFR Random Glucose Calcium Total Bilirubin AST ALT Alkaline Phosphatase Troponin I High Sens 11.0 Total Protein Albumin COVID-19 ([facility]) Negative COVID-19 Clin Com See Note 01/16/22 01/16/22 01/16/22 03:54 03:54 03:54 MCV 91.4 MCH 29.6 MCHC 32.4 RDW 14.4 Plt Count 280 MPV 10.0 Immature Gran % (Auto) 0.3 Neut % (Auto) 75.2 H Lymph % (Auto) 15.0 L [place] % (Auto) 7.5 Eos % (Auto) 1.6 Baso % (Auto) 0.4 Lymph # (Auto) 1.4 [place] # (Auto) 0.7 Eos # (Auto) 0.2 Baso # (Auto) 0.0 Abs Immat Gran (auto) 0.03 Absolute Neuts (auto) 7.0 Absolute Nucleated RBC 0.000 Nucleated RBC % (auto) 0.0 PT INR APTT Anion Gap 13 Estim Creat Clear Calc 58.1 Estimated GFR 60 Random Glucose 115 Calcium 8.7 D Total Bilirubin AST ALT Alkaline Phosphatase Troponin I High Sens 8.1 Total Protein Albumin COVID-19 ([facility]) COVID-19 Clin Com Assessment and Plan (1) Near syncope: Status: Acute Plan 76F presented with fall and presyncope fall/presyncope likely dehydration/hypotension holding diuretic, will give gentle ivf, decrease diltiazem to 120 daily mointor on tele (history of cardiac arrest, vfib) PT mild AREN resolved left knee pain and effusion due to injury, conservative care paroxysmal afib eliquis, lopressor, digoxin, decrease diltiazem chornic diastolic chf holding diuretics, appears dehydrated htn now hypotensive, holding meds not needed for rate control conrado cpap depression/anxiety ativan, lexapro dvt prophylaxis - on eliquis full code reason for continued hospitalization: iv hydration, monitoring post presyncope, still hpyotensive Quality Stroke Does the patient have a stroke diagnosis?: No VTE Prior VTE?: No VTE Risk Level:: Medical - moderate - high VTE Device Contraindication: Treatment Not Indicated VTE Drug Contraindication: N/A - Med Ordered
--- NOTE | 2022-01-16 10:36 | PC.NURSE ---
purwic was leaking onto bed, discontinued and will trial commode with 2 assist. stage 1 on bilateral buttocks, barrier cream applied. call rashid in place
--- NOTE | 2022-01-16 11:14 | P.CONCA_ITS ---
History of Present Illness History of Present Illness Date of Service: 01/16/22 Chief complaint: Near syncope Narrative: This is a cardiology consultation regarding dizziness/presyncope. Previous documentation reviewed. Last year-probable respiratory event leading to atrial fibrillation with slow rate which in turn led to ventricular fibrillation/cardiac arrest. He was successfully resuscitated from that. Before this she was on flecainide was then stopped. Then at some point amio darone was used but that was stopped as well. Then it seems that she has been left on rate control. She was in rehabilitation for a long time but recently went home few weeks back. She states that she was initially okay but in the last few days, she has been feeling dizzy. She fell almost 3 times. Seems to have had some dizziness/presyncopal symptoms prior to at least some of these. She states that her family told her that she is not eating and drinking much. Hence not clear if dehydration plays a role. Blood pressure is on the lower side. Rhythm in general is atrial fibrillation with some rapid rates but mostly controlled. Otherwise, she does not have any other cardiac complaints like angina or shortness of breath or in fact anything at all. Review of Systems Review of Systems: Yes all other systems are reviewed and are negative Constitutional: Constitutional: Reports as per HPI, Reports fatigue and Reports weakness Eyes: Eyes: Reports as per HPI ENT: Reports as per HPI Cardiovascular: Cardiovascular: Reports as per HPI, Denies acrocyanosis, Denies cool extremities, Denies chest pain, Denies leg edema, Reports lightheadedness, Denies palpitations and Denies dyspnea Respiratory: Respiratory: Reports as per HPI, Reports no additional respiratory complaints and Denies dyspnea Gastrointestinal: Gastrointestinal: Reports as per HPI and Reports no additional gastrointestinal complaints Genitourinary: Genitourinary: Reports as per HPI Musculoskeletal: Musculoskeletal: Reports no additional musculoskeletal complaints and Reports as per HPI Integumentary/Breasts: Skin/Breast: Reports system reviewed and no additional complaints, except as docu Neurologic: Reports system reviewed and no additional complaints, except as documented, Reports as per HPI and Reports weakness Psychiatric: Psychiatric: Reports no additional psychiatric complaints and Reports as per HPI Endocrine: Endocrine: Reports no additional endocrine complaints, Reports as per HPI, Reports fatigue and Denies palpitations Hematologic/Lymphatic: Hematologic/Lymphatic: Reports no additional hematologic/lymphatic complaints and Reports as per HPI Allergic/Immunologic: Allergic/Immunologic: Reports no additional allergic/immunologic complaints and Reports as per [facility] Past Medical History Medical History Acalculous cholecystitis Acute hypercapnic respiratory failure due to obstructive sleep apnea Afib Bacteriuria CAD (coronary artery disease) CHF (congestive heart failure) Essential hypertension Heart failure with preserved ejection fraction HTN (hypertension) Myocardial infarct Obesity PAF (paroxysmal atrial fibrillation) 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 Sick sinus syndrome Sleep apnea Symptomatic bradycardia Throat cancer Family History Family History (Updated 01/16/22 @ 11:18 by Vladislav Cervantes MD) Daughter Breast cancer Surgical History Surgical History Atrial fibrillation status post cardioversion Social History Social History Household Members: Children Housing: House Do you presently have visiting nurse or other home services: Yes Alcohol intake: former Patient Tobacco Use Status: Former Tobacco user Years Smoked: 41 yrs Use of substances other than those prescribed or required for medical reasons: No Advance Directives: Yes Advance Directives on File: Yes Advance Directives Date on File: 01/13/21 service: No Current occupational status: disabled Meds Allergies Allergy/AdvReac Type Severity Reaction Status Date / Time amiodarone Allergy Severe Difficulty Verified 03/08/21 14:02 Breathing SEASONAL ALLERGIES Allergy Unknown SNEEZING Uncoded 04/23/20 15:17 RUNNY NOSE Active Medications: Current Medications Acetaminophen (Acetaminophen 325 Mg Tablet) 650 mg PO Q6H PRN PRN Reason: Pain, Mild (Pain Scale 1-3) Last Admin: 01/16/22 05:49 Dose: 650 mg Apixaban (Apixaban 5 Mg Tablet) 5 mg PO BID [facility] Atorvastatin Calcium (Atorvastatin Calcium 10 Mg Tablet) 10 mg PO BEDTIME DEE Digoxin (Digoxin 0.125 Mg Tablet) 0.125 mg PO DAILY DEE Diltiazem HCl (Diltiazem Hcl Cd 120 Mg Cap.Er.Deg) 120 mg PO DAILY DEE; Protocol Escitalopram Oxalate (Escitalopram Oxalate 10 Mg Tablet) 10 mg PO DAILY DEE Sodium Chloride (Ns) 1,000 mls @ 80 mls/hr IVCONT .[id number] DEE Stop: 01/16/22 22:59 Lorazepam (Lorazepam 1 Mg Tablet) 1 mg PO TID PRN PRN Reason: Anxiety Magnesium Oxide ([facility]esium [facility] 400 Mg Tablet) [facility] Melatonin (Melatonin 3 Mg Tablet) 6 mg PO BEDTIME PRN PRN Reason: Insomnia Metoprolol Tartrate (Metoprolol Tartrate 100 Mg Tablet) 100 mg PO BID [facility]; Protocol Omeprazole (Omeprazole 20 Mg Capsule.Dr) 20 mg PO BID@0630,1630 [facility] Pharmacy Consult (Consult Rx Perform Med Rec) 1 each MISCELLANE ONCE PRN PRN Reason: Consult order Senna (Sennosides 8.6 Mg Tablet) 17.2 mg PO BEDTIME PRN PRN Reason: Constipation Sodium Chloride (0.9 % Sodium Chloride Flush 3 Ml Syringe) 3 ml IVFLUSH QSHIFT [facility] Home Medications Medication Instructions Recorded Confirmed Last Taken Type omeprazole 20 mg capsule,delayed 1 cap PO BID 11/18/20 01/16/22 Unknown History release escitalopram oxalate 10 mg tablet 1 tab PO DAILY 01/16/22 01/16/22 Unknown History gabapentin 300 mg capsule 1 cap PO BID 01/16/22 01/16/22 Unknown History lorazepam 1 mg tablet 1 tab PO TID PRN Anxiety 01/16/22 01/16/22 Unknown History metoprolol tartrate 100 mg tablet 100 mg PO BID 01/16/22 01/16/22 Unknown History simvastatin 10 mg tablet 10 mg PO BEDTIME 01/16/22 01/16/22 Unknown History sucralfate 1 gram tablet 1 g PO BID 01/16/22 01/16/22 Unknown History torsemide 20 mg tablet 1 tab PO DAILY 01/16/22 01/16/22 Unknown History Physical Exam Vital Signs: Vital Signs: Last Vital Signs Temp 97.9 F 01/16/22 09:09 Pulse 88 01/16/22 09:09 Resp 10 L 01/16/22 09:09 BP 107/73 01/16/22 09:09 Pulse Ox 98 01/16/22 09:09 O2 Del Method 01/16/22 09:09 BMI result Body Mass Index 29.4 Const: General: cooperative, comfortable, no acute distress, alert and awake Orientation/consciousness: patient oriented x3 HEENT: Other: Unremarkable Head: Yes normal to inspection Neck: Neck: Yes normal visual inspection Chest: Chest palpation & inspection: normal inspection of the chest Resp: Auscultation: clear to auscultation bilaterally Cardio: Palpation: normal PMI Heart sounds: S1 normal heart sound present, S2 normal heart sound present, no gallops, no murmurs and no rubs GI: Palpation (GI): Soft to palpation Back/Spine/Pelvis: Other: unremarkable Skin: General skin exam: no rashes or lesions noted Neuro: General: patient oriented x3 Extrem: General: Yes normal to inspection Psych: Mental Status: mental status grossly normal Objective Labs and Meds Result diagrams: 01/16/22 03:54 01/16/22 03:54 Lab results: Laboratory Results - last 24 hr 01/15/22 01/15/22 01/15/22 19:38 19:38 19:38 WBC 10.8 RBC 4.80 Hgb 14.2 Hct 42.5 MCV 88.5 MCH 29.6 MCHC 33.4 RDW 14.2 Plt Count 322 MPV 10.0 Immature Gran % (Auto) 0.2 Neut % (Auto) 82.1 H Lymph % (Auto) 10.1 L Steele % (Auto) 6.7 Eos % (Auto) 0.5 Baso % (Auto) 0.4 Lymph # (Auto) 1.1 L Steele # (Auto) 0.7 Eos # (Auto) 0.1 Baso # (Auto) 0.0 Abs Immat Gran (auto) 0.02 Absolute Neuts (auto) 8.9 H Absolute Nucleated RBC 0.000 Nucleated RBC % (auto) 0.0 PT INR APTT 37.2 Sodium 134 L Potassium 3.2 L Chloride 82 L Carbon Dioxide 39 H Anion Gap 16 BUN 19 H D Creatinine 1.01 Estim Creat Clear Calc 53.0 Estimated GFR 54 Random Glucose 162 H Calcium 9.3 Total Bilirubin 0.6 AST 18 ALT 11 Alkaline Phosphatase 82 Troponin I High Sens Total Protein 6.7 Albumin 3.9 COVID-19 ([facility]) COVID-19 Clin Com 01/15/22 01/15/22 01/15/22 19:38 19:38 23:53 WBC RBC Hgb Hct MCV MCH MCHC RDW Plt Count MPV Immature Gran % (Auto) Neut % (Auto) Lymph % (Auto) Steele % (Auto) Eos % (Auto) Baso % (Auto) Lymph # (Auto) Steele # (Auto) Eos # (Auto) Baso # (Auto) Abs Immat Gran (auto) Absolute Neuts (auto) Absolute Nucleated RBC Nucleated RBC % (auto) PT 16.2 H INR 1.4 H APTT Sodium Potassium Chloride Carbon Dioxide Anion Gap BUN Creatinine Estim Creat Clear Calc Estimated GFR Random Glucose Calcium Total Bilirubin AST ALT Alkaline Phosphatase Troponin I High Sens 11.0 Total Protein Albumin COVID-19 ([facility]) Negative COVID-19 Clin Com See Note 01/16/22 01/16/22 01/16/22 03:54 03:54 03:54 WBC 9.3 RBC 4.29 Hgb 12.7 Hct 39.2 MCV 91.4 MCH 29.6 MCHC 32.4 RDW 14.4 Plt Count 280 MPV 10.0 Immature Gran % (Auto) 0.3 Neut % (Auto) 75.2 H Lymph % (Auto) 15.0 L Steele % (Auto) 7.5 Eos % (Auto) 1.6 Baso % (Auto) 0.4 Lymph # (Auto) 1.4 Steele # (Auto) 0.7 Eos # (Auto) 0.2 Baso # (Auto) 0.0 Abs Immat Gran (auto) 0.03 Absolute Neuts (auto) 7.0 Absolute Nucleated RBC 0.000 Nucleated RBC % (auto) 0.0 PT INR APTT Sodium 135 Potassium 3.4 Chloride 86 L Carbon Dioxide 39 H Anion Gap 13 BUN 17 H Creatinine 0.92 Estim Creat Clear Calc 58.1 Estimated GFR 60 Random Glucose 115 Calcium 8.7 D Total Bilirubin AST ALT Alkaline Phosphatase Troponin I High Sens 8.1 Total Protein Albumin COVID-19 ([facility]) COVID-19 Clin Com ECG Interpretation: Initial EKG-atrial fibrillation with rate of 109/Min. Nonspecific ST-T changes. Imaging Radiologist's impression: Impressions Cervical Spine CT 01/15/22 21:22 IMPRESSION: 1. No evidence of acute intracranial hemorrhage or edematous territorial infarction. Moderate underlying microangiopathy and generalized cerebral volume loss. 2. No evidence of acute fracture or traumatic subluxation of the cervical spine. 3. Moderate multilevel degenerative spondyloarthropathy of the cervical spine as described in detail above. Most notably on this limited exam without intrathecal contrast, there appears to be at least mild spinal canal stenoses at C4-C5 and C5-C6. Head CT 01/15/22 21:50 IMPRESSION: 1. No evidence of acute intracranial hemorrhage or edematous territorial infarction. Moderate underlying microangiopathy and generalized cerebral volume loss. 2. No evidence of acute fracture or traumatic subluxation of the cervical spine. 3. Moderate multilevel degenerative spondyloarthropathy of the cervical spine as described in detail above. Most notably on this limited exam without intrathecal contrast, there appears to be at least mild spinal canal stenoses at C4-C5 and C5-C6. Chest X-Ray 01/15/22 22:57 IMPRESSION: 1. No acute intrathoracic disease. Resolved CHF and pleural effusions when compared to prior 2. Postop hardware lumbosacral spine. No acute finding. Knee X-Ray 01/15/22 22:57 IMPRESSION: No fractures. Moderate knee joint effusion. Lumbar Spine X-Ray 01/15/22 22:57 IMPRESSION: 1. No acute intrathoracic disease. Resolved CHF and pleural effusions when compared to prior 2. Postop hardware lumbosacral spine. No acute finding. Assessment and Plan (1) Near syncope: Status: Acute (2) Atrial fibrillation with rapid ventricular response: Status: Resolved Plan High sensitivity troponins well within the normal range. Creatinine is 0.92. EKG with atrial fibrillation with borderline rate control. Blood pressure seems to be on the lower side. Overall possible dehydration/low blood pressure causing presyncopal episodes. D oubt arrhythmia related. On reviewing the medication list, she is on metoprolol tartrate 100 mg b.i.d., diltiazem 60 mg 4 times a day. We can keep the beta-blockers but cut back on the diltiazem dosing to 30 mg q.6. That should bring the blood pressure up a little bit. We can add digoxin rather for rate control as renal function stable. Potassium to be corrected. Echocardiogram for cardiac function assessment. Continue with anticoagulation otherwise. Discussed with Dr. Deluca. Total time spent-70 minutes. Procedures Date of Service Date of Service: 01/16/22
--- NOTE | 2022-01-16 14:10 | PC.NURSE ---
pt able with one assist to use bedside commode
[2022-01-16] MEDS: Potassium Chloride ER 20 MEQ TAB.ER.PRT 40 MEQ PO (15:00)
[2022-01-16] MEDS: Digoxin 0.125 MG TABLET PO (15:00)
[2022-01-16] MEDS: 0.9 % Sodium Chloride 1,000 ML 80 ML IVCONT (15:00)
[2022-01-16] MEDS: LORazepam 1 MG TABLET PO (15:04)
[2022-01-16] MEDS: Magnesium Oxide 400 MG TABLET PO (17:40)
[2022-01-16] MEDS: Omeprazole 20 MG CAPSULE.DR PO (17:40)
[2022-01-16] MEDS: Metoprolol Tartrate 100 MG TABLET PO (21:08)
[2022-01-16] MEDS: Atorvastatin Calcium 10 MG TABLET PO (21:08)
[2022-01-16] MEDS: Apixaban 5 MG TABLET PO (21:08)
--- NOTE | 2022-01-16 21:20 | PC.NURSE ---
Assumed care of pt AxO x 4, clear and complete sentences Assist x 1 to commode secondary to LT knee pain from fall Pt medicated per OCT Pt requires big pills to be cut. Pt tolerates thin liquids NAD Will continue to monitor
--- NOTE | 2022-01-16 23:12 | PC.NURSE ---
Pt assisted to commode NAD Pt back on hospital bed Will continue to monitor
[2022-01-17] VITALS (11 sets, daily range): BP systolic 78–129; BP diastolic 53–99; PULSE 56–93; RESP 16–20; TEMP 36.1–36.9; O2SAT 96–100
[2022-01-17] MEDS: LORazepam 1 MG TABLET PO (00:11)
[2022-01-17] MEDS: Melatonin 3 MG TABLET 6 MG PO (00:11)
--- NOTE | 2022-01-17 04:02 | PC.NURSE ---
Pt continuous to c/o LT knee pain. Pt given ice and tylenol with no relief. Dr. Dennis made aware, awaiting orders for morphine. Will continue to monitor
[2022-01-17] MEDS: oxyCODONE HCl Immed Release 5 MG TABLET PO (04:14)
[2022-01-17] MEDS: Acetaminophen 325 MG TABLET 650 MG PO (04:18)
[2022-01-17] MEDS: Omeprazole 20 MG CAPSULE.DR PO ×2 (05:49→16:36)
--- NOTE | 2022-01-17 07:00 | CA_ITS ---
Transthoracic Echocardiogram Patient (Last, First, Middle): Lucia Ch C Gender: Female Date of : 1945 Age: 76 Procedure Date: 01/17/2022 Procedure Type: Transthoracic Echocardiogram [place] [facility] [place]: 167.64 cm Weight: 82.56 kg BSA: 1.92 m2 Heart Rate: bpm BP: 78 / 53 mmHg Optical Instrument Repairer: YR/TO Referring MD: Wendy Roldan NEURODIAGNOSTIC TECHNOLOGISTEdmondC Symptoms: dizziness, presyncope Study Quality: Fair/Contrast Conclusions: - Normal left ventricular cavity size. There is moderately increased left ventricular wall thickness. The left ventricular systolic function is hyperdynamic. The visually estimated ejection fraction is >70%. - Mildly increased right ventricular cavity size. There is normal right ventricular systolic function. Findings Procedure Information Contrast agent, definity, is being given per protocol without apparent complications. Left Ventricle Normal left ventricular cavity size. There is moderately increased left ventricular wall thickness. The left ventricular systolic function is hyperdynamic. The visually estimated ejection fraction is >70%. There is no evidence of regional wall motion abnormalities. Diastolic function is indeterminate on the basis of available data. Right Ventricle Mildly increased right ventricular cavity size. There is normal right ventricular systolic function. Atria Both atria are normal in size. Aortic Valve There is a normal trileaflet aortic valve. There is mild calcification of the aortic valve. There is mild thickening of the aortic valve. There is no aortic valve stenosis. There is no aortic valve regurgitation. Mitral Valve Normal mitral valve structure and function. There is trace mitral valve regurgitation. There is no mitral valve stenosis. Pulmonic Valve The pulmonic valve is likely normal. Tricuspid Valve Normal tricuspid valve structure. There is trace tricuspid valve regurgitation. Normal right atrial pressure. There is no evidence of pulmonary hypertension. Great Vessels All visible segments of the aorta are normal in size. The pulmonary artery was not well visualized. Venous The inferior vena cava is collapsed, consistent with reduced intravascular volume and collapses greater than 50% with inspiration. Pericardium/Pleural There is no evidence of pericardial effusion. Measurements 2D Linear Measurements IVSd: 1.25 0.6-0.9/0.6-1.0 cm LVIDd: 3.75 3.9-5.3/4.2-5.9 cm LVIDd Index: 1.95 2.4-3.2/2.2-3.1 cm/m2 LVIDs: 3.14 2.0-3.6 cm LVPWd: 1.19 0.7-1.1 cm LA Diam: 4.10 2.7-3.8/3.0-4.0 cm LAIDs Index: 2.14 1.5-2.3 cm/m2 LV Mass: 191.82 67-162/88-224 g LV Mass Index: 99.91 43-95/49-115 g/m2 LVOT Diam: 2.00 3.0+(-)1.3 cm Aortic Valve AoV Pk Christiano: 1.78 AoV Mn Christiano: 1.31 AoV VTI: 0.37 AoV Pk Grad: 13.00 Aov Mn Grad: 8.00 LORENA Cont.VTI: 1.82 LVOT LVOT Pk Christiano: 1.06 LVOT Mn Christiano: 0.73 LVOT VTI: 0.21 LVOT Pk Grad: 4.00 LVOT Mn Grad: 2.00 LVOT Diam: 2.00 LVOT Area: 3.14 Right Ventricle TAPSE (mm): 25.40 TVS' Christiano: 12.00 Tricuspid Valve TR Pk Christiano: 2.70 TR Pk Grad: 29.00 RA Press: 3.00 RVSP: 32.00 Great Vessels Aorta Sinus of Valsalva: 3.13 2.0-3.5 cm Ao Asc: 3.00 2.1-3.4 cm Updated in Other Vendor System with Status of Final Navi Wilson MD electronically signed on 01/17/2022 9:39:45 PM with status of Final
[2022-01-17 07:18] LABS: Hematocrit 35.7 % (37.0-47.0); Hemoglobin 11.7 g/dl (12.0-16.0); Mean Corpuscular HGB Conc 32.8 g/dl (31.0-35.0); Mean Corpuscular Hemoglobin 30.1 pg (27.0-33.0); Mean Corpuscular Volume 91.8 fL (80.0-98.0); Mean Platelet Volume 10.2 fL (9.4-12.3); Platelet Count 262 X10*3/uL (160-400); Red Blood Count 3.89 X10*6/uL (4.20-5.50); Red Cell Distribution Width 14.5 % (11.0-16.0); White Blood Count 8.7 X10*3/uL (4.8-10.8)
[2022-01-17 07:33] LABS: Anion Gap 11 (12-20); Blood Urea Nitrogen 10 mg/dL (9-16); Calcium 8.4 mg/dL (8.4-10.2); Carbon Dioxide 35 mmol/L (22-29); Chloride 90 mmol/L (96-108); Creatinine Clr Calc Pharmacy 79.8; Estimated Glomerular Filt Rate > 60; Glucose Fasting 92 mg/dL (60-99); Potassium 3.3 mmol/L (3.3-5.1); Sodium 133 mmol/L (135-145)
--- NOTE | 2022-01-17 08:09 | PC.NURSE ---
REPORT GIVEN TO TYRELL LILLY. PT WILL BE TRANSPORTED TO ROOM 446 BY TRANSPORTER. VSS.
[2022-01-17] MEDS: Digoxin 0.125 MG TABLET PO (08:49)
[2022-01-17] MEDS: Escitalopram Oxalate 10 MG TABLET PO (08:49)
[2022-01-17] MEDS: Magnesium Oxide 400 MG TABLET PO ×2 (08:49→16:36)
[2022-01-17] MEDS: Apixaban 5 MG TABLET PO ×2 (08:49→20:35)
[2022-01-17] MEDS: 0.9 % Sodium Chloride Flush 3 ML SYRINGE IVFLUSH (08:50)
[2022-01-17] MEDS: 0.9 % Sodium Chloride 1,000 ML 80 ML IVCONT (08:54)
--- NOTE | 2022-01-17 09:38 | P.PNIM_ITS ---
Subjective Subjective Date of Service: 01/17/22 Interval History: cc: falls interval history:lightheaded when standing Cardiovascular Cardiovascular: Reports no additional cardiovascular complaints Respiratory Respiratory: Reports no additional respiratory complaints Physical Exam Vital Signs: Vital Signs: Last Vital Signs Temp 98.2 F 01/17/22 08:27 Pulse 56 01/17/22 08:33 Resp 20 01/17/22 08:27 BP 78/53 L 01/17/22 08:33 Pulse Ox 96 01/17/22 08:27 O2 Del Method 01/17/22 08:27 BMI result Body Mass Index 29.4 General: AO X 3, no acute distress Resp: CTA bilateral, no accessory muscles used CVS: S1,S2,RRR GI: soft, non tender, non distended Neuro: motor grossly intact, alert Psych: appropriate affect, appropriate insight est: left knee tender, swollen Objective Data Active Medications Acetaminophen (Acetaminophen 325 Mg Tablet) 650 mg PO Q6H PRN PRN Reason: Pain, Mild (Pain Scale 1-3) Last Admin: 01/17/22 04:18 Dose: 650 mg Documented By: DAKSHA Apixaban (Apixaban 5 Mg Tablet) 5 mg PO BID [facility] Last Admin: 01/17/22 08:49 Dose: 5 mg Documented By: JEEVAN Atorvastatin Calcium (Atorvastatin Calcium 10 Mg Tablet) 10 mg PO BEDTIME [facility] Last Admin: 01/16/22 21:08 Dose: 10 mg Documented By: DAKSHA Digoxin (Digoxin 0.125 Mg Tablet) 0.125 mg PO DAILY [facility] Last Admin: 01/17/22 08:49 Dose: 0.125 mg Documented By: JEEVAN Diltiazem HCl (Diltiazem Hcl Cd 120 Mg Cap.Er.Deg) 120 mg PO DAILY [facility]; Protocol Escitalopram Oxalate (Escitalopram Oxalate 10 Mg Tablet) 10 mg PO DAILY [facility] Last Admin: 01/17/22 08:49 Dose: 10 mg Documented By: JEEVAN Hydromorphone HCl (Hydromorphone Hcl 0.5 Mg/0.5 Ml Syringe) 0.25 mg IVPUSH Q4H PRN; Protocol PRN Reason: Breakthrough Pain Sodium Chloride (Ns) 1,000 mls @ 80 mls/hr IVCONT .[id number] [facility] Stop: 01/17/22 21:29 Last Admin: 01/17/22 08:54 Dose: 80 mls/hr Documented By: JEEVAN Lorazepam (Lorazepam 1 Mg Tablet) 1 mg PO TID PRN PRN Reason: Anxiety Last Admin: 01/17/22 00:11 Dose: 1 mg Documented By: DAKSHA Magnesium [facility] ([facility] 400 Mg Tablet) [facility] Last Admin: 01/17/22 08:49 Dose: 400 mg Documented By: JEEVAN Melatonin (Melatonin 3 Mg Tablet) 6 mg PO BEDTIME PRN PRN Reason: Insomnia Last Admin: 01/17/22 00:11 Dose: 6 mg Documented By: DAKSHA Metoprolol Tartrate (Metoprolol Tartrate 100 Mg Tablet) 100 mg PO BID [facility]; Protocol Last Admin: 01/16/22 21:08 Dose: 100 mg Documented By: DAKSHA Omeprazole (Omeprazole 20 Mg Capsule.) 20 mg PO BID@0630,1630 [facility] Last Admin: 01/17/22 05:49 Dose: 20 mg Documented By: DAKSHA Pharmacy Consult (Consult Rx Perform Med Rec) 1 each MISCELLANE ONCE PRN PRN Reason: Consult order Senna (Sennosides 8.6 Mg Tablet) 17.2 mg PO BEDTIME PRN PRN Reason: Constipation Sodium Chloride (0.9 % Sodium Chloride Flush 3 Ml Syringe) 3 ml IVFLUSH QSHIFT [facility] Last Admin: 01/17/22 08:50 Dose: 3 ml Documented By: JEEVAN Labs CBC & Chem 7: 01/17/22 06:37 01/17/22 06:37 Labs: Laboratory Results - last 24 hr 01/17/22 01/17/22 06:37 06:37 MCV 91.8 MCH 30.1 MCHC 32.8 RDW 14.5 Plt Count 262 MPV 10.2 Absolute Nucleated RBC 0.000 Nucleated RBC % (auto) 0.0 Anion Gap 11 L Estim Creat Clear Calc 79.8 Estimated GFR > 60 Fasting Glucose 92 Calcium 8.4 Magnesium 2.0 Assessment and Plan (1) Near syncope: Status: Acute Plan 76F presented with fall and presyncope fall/presyncope likely dehydration/ orthostatic hypotension holding diuretisc, decreased diltiazem to 120 daily received 1L NS 01/16/22, still orthostatic, will give another 1L NS mointor on tele (history of cardiac arrest, vfib), check echo PT mild AREN resolved left knee pain and effusion due to injury, conservative care, PT paroxysmal afib eliquis, lopressor, digoxin, decrease diltiazem chornic diastolic chf holding diuretics, appears dehydrated htn now hypotensive, holding meds not needed for rate control conrado cpap depression/anxiety ativan, lexapro dvt prophylaxis - on eliquis full code reason for continued hospitalization: iv hydration, monitoring post presyncope, still hypotensive Quality Stroke Does the patient have a stroke diagnosis?: No VTE Prior VTE?: No VTE Risk Level:: Medical - moderate - high VTE Device Contraindication: Treatment Not Indicated VTE Drug Contraindication: N/A - Med Ordered
--- NOTE | 2022-01-17 12:17 | P.PNCA_ITS ---
Subjective Subjective Date of Service: 01/17/22 <СВЕТЛАНА Salcedo - Last Filed: 01/17/22 12:52> 01/17/22 <Navi Wilson MD - Last Filed: 01/17/22 22:09> Principal diagnosis: dizziness, presyncope <СВЕТЛАНА Salcedo - Last Filed: 01/17/22 12:52> Interval history: Seen at 0915. Today she reports feeling tired and she has not rested well the last 2 nights. Has not been OOB this am. No dizziness at present, no presyncope, syncope, falls since admit. No chest pains, palpitation, sob. Tele showing Afib with good rate control. Has IV NS infusing at 80cchr. Echocardiogram pending. <СВЕТЛАНА Salcedo - Last Filed: 01/17/22 12:52> Review of Systems Review of Systems as above <СВЕТЛАНА Salcedo - Last Filed: 01/17/22 12:52> Yes all other systems are reviewed and are negative <СВЕТЛАНА Salcedo - Last Filed: 01/17/22 12:52> Physical Exam Vital Signs: Last Vital Signs Temp 98.2 F 01/17/22 08:27 Pulse 56 01/17/22 09:45 Resp 20 01/17/22 08:27 BP 78/53 L 01/17/22 09:45 Pulse Ox 96 01/17/22 08:27 O2 Del Method 01/17/22 08:27 BMI result Body Mass Index 29.4 <СВЕТЛАНА Salcedo - Last Filed: 01/17/22 12:52> Const General: cooperative, no acute distress, alert and awake <СВЕТЛАНА Salcedo - Last Filed: 01/17/22 12:52> Neck Neck: Yes normal visual inspection and Yes no JVD <СВЕТЛАНА Salcedo Last Filed: 01/17/22 12:52> Resp Effort & Inspection: normal respiratory effort, able to speak in complete sentences and not labored <СВЕТЛАНА Salcedo - Last Filed: 01/17/22 12:52> Auscultation: clear to auscultation bilaterally, no crackles, no rales, no rhonchi and no wheezes <СВЕТЛАНА Salcedo - Last Filed: 01/17/22 12:52> Cardio Rate: regular rate <СВЕТЛАНА Salcedo Last Filed: 01/17/22 12:52> Rhythm: abnormal rhythm irregularly irregular <СВЕТЛАНА Salcedo Last Filed: 01/17/22 12:52> Heart sounds: S1 normal heart sound present and S2 normal heart sound present <СВЕТЛАНА Salcedo - Last Filed: 01/17/22 12:52> Peripheral pulses: Peripheral pulses 2+ throughout <Wendy Roldan СВЕТЛАНА Pruitt Last Filed: 01/17/22 12:52> GI Inspection: Yes normal to inspection <СВЕТЛАНА Salcedo Last Filed: 01/17/22 12 :52> Extrem General: Yes normal to inspection and No edema <Wendy Roldan СВЕТЛАНА Pruitt Last Filed: 01/17/22 12:52> Objective Labs and Meds Result diagrams: : 01/17/22 06:37 01/17/22 06:37 <Wendy Roldan СВЕТЛАНА - Last Filed: 01/17/22 12:52> Lab results: Laboratory Results - last 24 hr 01/17/22 01/17/22 06:37 06:37 WBC 8.7 RBC 3.89 L Hgb 11.7 L Hct 35.7 L MCV 91.8 MCH 30.1 MCHC 32.8 RDW 14.5 Plt Count 262 MPV 10.2 Absolute Nucleated RBC 0.000 Nucleated RBC % (auto) 0.0 Sodium 133 L Potassium 3.3 Chloride 90 L Carbon Dioxide 35 H Anion Gap 11 L BUN 10 Creatinine 0.67 Estim Creat Clear Calc 79.8 Estimated GFR > 60 Fasting Glucose 92 Calcium 8.4 Magnesium 2.0 <Wendy Roldan СВЕТЛАНА Pruitt Last Filed: 01/17/22 12:52> Progress Note: A&P Assessment and plan (1) Near syncope: Status: Acute <Wendy Roldan NAVJOTEdmondLucila Pruitt Last Filed: 01/17/22 12:52> Assessment and Plan: Dizziness and falls prior to admit. Notes indicate that she had not been eating well and with lab results showing signs of dehydration. BP running low, mostly in the 90s systolic. Her admitting symptoms likely related to hypotension, dehydration. Home Metoprolol, Aldactone and Torsemide were placed on hold. She continues on Diltiazem for heart rate control. She reports fatigue, no dizziness. Has discomfort from Left knee contusion. Tele shows afib with controlled rates, 70-80s, no arrythmia. BP ( after I had seen her) as low at 78/53. She is receiving IV fluids at 80cc hr. Continue to gently hydrate. Watch closely for signs of HF. Has had HFpEF in past. Will place Diltiazem on hold. Will continue Digoxin for heart rate control. Echocardiogram is pending. We will follow. <СЕВТЛАНА Salcedo - Last Filed: 01/17/22 12:52> (2) Fall: Status: Acute <СВЕТЛАНА Salcedo - Last Filed: 01/17/22 12:52> (3) Atrial fibrillation: Status: Acute <СВЕТЛАНА Salcedo - Last Filed: 01/17/22 12:52> Assessment and Plan: Hx of chronic afib. Rates controlled at present, 70-80s. Home Metoprolol on hold and now placing Diltiazem on hold. Digoxin being used for heart rate control. On Eliquis for anticoagulation. No bleeding issues reported. Ongoing tele monitoring during admit. <СВЕТЛАНА Salcedo - Last Filed: 01/17/22 12:52> (4) Contusion of knee, left: Status: Acute <СВЕТЛАНА Salcedo - Last Filed: 01/17/22 12:52> Assessment and Plan: Being followed by ortho <СВЕТЛАНА Salcedo - Last Filed: 01/17/22 12:52> Assessment and Plan: 76-year-old female with atrial fibrillation and hypertension. Heart rates are well controlled. She is on diltiazem and blood pressures are low. I think his Holter Dyazide min continue digoxin for now. She may need some IV fluids. We will follow along with you. <Navi Wilson MD - Last Filed: 01/17/22 22:09> Time Spent With Patient Time: Total time spent is greater than 50% in coordination of care (as documented) at patient's floor/unit and/or counseling patient: 22 <СВЕТЛАНА Salcedo - Last Filed: 01/17/22 12:52> Progress Note: Quality Stroke Does the patient have a stroke diagnosis?: No <СВЕТЛАНА Salcedo - Last Filed: 01/17/22 12:52> Procedures Date of Service Date of Service: 01/17/22 <СВЕТЛАНА Salcedo - Last Filed: 01/17/22 12:52>
[2022-01-17] MEDS: Metoprolol Tartrate 100 MG TABLET PO (20:35)
[2022-01-17] MEDS: Atorvastatin Calcium 10 MG TABLET PO (20:36)
[2022-01-17] MEDS: Sennosides 8.6 MG TABLET 17.2 MG PO (20:46)
[2022-01-18] VITALS (12 sets, daily range): BP systolic 90–127; BP diastolic 51–80; PULSE 57–94; RESP 15–18; TEMP 36.2–37.1; O2SAT 96–99
[2022-01-18] MEDS: LORazepam 1 MG TABLET PO ×3 (00:16→15:53)
[2022-01-18] MEDS: Melatonin 3 MG TABLET 6 MG PO (00:18)
[2022-01-18] MEDS: oxyCODONE HCl Immed Release 5 MG TABLET PO ×2 (00:39→22:38)
[2022-01-18] MEDS: Omeprazole 20 MG CAPSULE.DR PO ×2 (05:12→15:53)
[2022-01-18 06:30] LABS: Hematocrit 35.7 % (37.0-47.0); Hemoglobin 11.5 g/dl (12.0-16.0); Mean Corpuscular HGB Conc 32.2 g/dl (31.0-35.0); Mean Corpuscular Hemoglobin 29.7 pg (27.0-33.0); Mean Corpuscular Volume 92.2 fL (80.0-98.0); Mean Platelet Volume 10.2 fL (9.4-12.3); Platelet Count 281 X10*3/uL (160-400); Red Blood Count 3.87 X10*6/uL (4.20-5.50); Red Cell Distribution Width 14.7 % (11.0-16.0); White Blood Count 8.8 X10*3/uL (4.8-10.8)
[2022-01-18 06:45] LABS: Anion Gap 10 (12-20); Blood Urea Nitrogen 7 mg/dL (9-16); Calcium 8.4 mg/dL (8.4-10.2); Carbon Dioxide 35 mmol/L (22-29); Chloride 94 mmol/L (96-108); Creatinine Clr Calc Pharmacy 86.3; Estimated Glomerular Filt Rate > 60; Glucose Fasting 91 mg/dL (60-99); Potassium 3.4 mmol/L (3.3-5.1); Sodium 136 mmol/L (135-145)
--- NOTE | 2022-01-18 07:56 | PC.NURSE ---
Shift eval 7p-7a: Patient alert and oriented - c/o knee pain - requesting oxycodone. Dr Lawrence called r/t patient not wanting IV pain meds. Oxycodone one time dose ordered - given @ 0039. Patient also c/o constipation - had moderate pebble like stool - PRN senna given w/ HS meds. Patient requesting melatonin & ativan to sleep - both meds given at approx 0015. Patient requesting more ativan at 4am vital sign checks - Dr Lawrence made aware - ok to give ativan early. 1mg PO ativan given at 0512. Patient up to commode - 1 assist - pain with movement. Orthos done as well, SBP staying > 90 with change of position. No symptoms with position changes. See orthos in vitals for details.
[2022-01-18] MEDS: Magnesium Oxide 400 MG TABLET PO ×2 (09:28→17:24)
[2022-01-18] MEDS: Escitalopram Oxalate 10 MG TABLET PO (09:28)
[2022-01-18] MEDS: 0.9 % Sodium Chloride Flush 3 ML SYRINGE IVFLUSH (09:29)
[2022-01-18] MEDS: Digoxin 0.125 MG TABLET PO (09:29)
[2022-01-18] MEDS: Apixaban 5 MG TABLET PO ×2 (09:30→20:46)
[2022-01-18] MEDS: 0.9 % Sodium Chloride 1,000 ML 80 ML IVCONT (09:30)
[2022-01-18] MEDS: Metoprolol Tartrate 100 MG TABLET PO ×2 (09:33→20:46)
--- NOTE | 2022-01-18 10:10 | P.PNIM_ITS ---
Subjective Subjective Date of Service: 01/18/22 Interval History: cc: falls interval history:lightheaded when standing Cardiovascular Cardiovascular: Reports no additional cardiovascular complaints Respiratory Respiratory: Reports no additional respiratory complaints Physical Exam Vital Signs: Vital Signs: Last Vital Signs Temp 98.3 F 01/18/22 08:00 Pulse 57 01/18/22 09:43 Resp 18 01/18/22 08:00 BP 90/52 L 01/18/22 09:43 Pulse Ox 96 01/18/22 08:00 O2 Del Method 01/18/22 08:00 BMI result Body Mass Index 29.4 General: AO X 3, no acute distress Resp: CTA bilateral, no accessory muscles used CVS: S1,S2,RRR GI: soft, non tender, non distended Neuro: motor grossly intact, alert Psych: appropriate affect, appropriate insight est: left knee tender, swollen Objective Data Active Medications Acetaminophen (Acetaminophen 325 Mg Tablet) 650 mg PO Q6H PRN PRN Reason: Pain, Mild (Pain Scale 1-3) Last Admin: 01/17/22 04:18 Dose: 650 mg Documented By: DAKSHA Apixaban (Apixaban 5 Mg Tablet) 5 mg PO BID [facility] Last Admin: 01/18/22 09:30 Dose: 5 mg Documented By: DELPHINE Atorvastatin Calcium (Atorvastatin Calcium 10 Mg Tablet) 10 mg PO BEDTIME [facility] Last Admin: 01/17/22 20:36 Dose: 10 mg Documented By: FADUMO Digoxin (Digoxin 0.125 Mg Tablet) 0.125 mg PO DAILY [facility] Last Admin: 01/18/22 09:29 Dose: 0.125 mg Documented By: DELPHINE Escitalopram Oxalate (Escitalopram Oxalate 10 Mg Tablet) 10 mg PO DAILY [facility] Last Admin: 01/18/22 09:28 Dose: 10 mg Documented By: DELPHINE Hydromorphone HCl (Hydromorphone Hcl 0.5 Mg/0.5 Ml Syringe) 0.25 mg IVPUSH Q4H PRN; Protocol PRN Reason: Breakthrough Pain Sodium Chloride (Ns) 1,000 mls @ 80 mls/hr IVCONT .[id number] [facility] Stop: 01/18/22 19:59 Last Admin: 01/18/22 09:30 Dose: 80 mls/hr Documented By: DELPHINE Lorazepam (Lorazepam 1 Mg Tablet) 1 mg PO TID PRN PRN Reason: Anxiety Last Admin: 01/18/22 05:12 Dose: 1 mg Documented By: FADUMO Comments: ok to give dose early per Dr Lawrence Magn[facility] ([facility] 400 Mg Tablet) [facility] Last Admin: 01/18/22 09:28 Dose: 400 mg Documented By: DELPHINE Melatonin (Melatonin 3 Mg Tablet) 6 mg PO BEDTIME PRN PRN Reason: Insomnia Last Admin: 01/18/22 00:18 Dose: 6 mg Documented By: FADUMO Metoprolol Tartrate (Metoprolol Tartrate 100 Mg Tablet) 100 mg PO BID [facility]; Protocol Last Admin: 01/18/22 09:33 Dose: 100 mg Documented By: DELPHINE Omeprazole (Omeprazole 20 Mg Capsule.) 20 mg PO BID@0630,1630 [facility] Last Admin: 01/18/22 05:12 Dose: 20 mg Documented By: FADUMO Pharmacy Consult (Consult Rx Perform Med Rec) 1 each MISCELLANE ONCE PRN PRN Reason: Consult order Senna (Sennosides 8.6 Mg Tablet) 17.2 mg PO BEDTIME PRN PRN Reason: Constipation Last Admin: 01/17/22 20:46 Dose: 17.2 mg Documented By: FADUMO Sodium Chloride (0.9 % Sodium Chloride Flush 3 Ml Syringe) 3 ml IVFLUSH [facility] Last Admin: 01/18/22 09:29 Dose: 3 ml Documented By: DELPHINE Labs CBC & Chem 7: 01/18/22 05:50 01/18/22 05:50 Labs: Laboratory Results - last 24 hr 01/18/22 01/18/22 05:50 05:50 MCV 92.2 MCH 29.7 MCHC 32.2 RDW 14.7 Plt Count 281 MPV 10.2 Absolute Nucleated RBC 0.000 Nucleated RBC % (auto) 0.0 Anion Gap 10 L Estim Creat Clear Calc 86.3 Estimated GFR > 60 Fasting Glucose 91 Calcium 8.4 Assessment and Plan (1) Near syncope: Status: Acute Plan 76F presented with fall and presyncope fall/presyncope likely dehydration/ orthostatic hypotension holding diuretisc, diltiazem stopped received 1L NS 01/16/22 and another 1L NS on 01/17/22, still orthostatic, will give another 1L NS mointor on tele (history of cardiac arrest, vfib), echo- hyperdynamic, hypertrophy, IVC collapsing >50% on inspiration, consistent with suspected hypovolemia PT mild AREN resolved left knee pain and effusion due to injury, conservative care, PT paroxysmal afib eliquis, lopressor, digoxin chornic diastolic chf holding diuretics, appears dehydrated htn now hypotensive, holding meds not needed for rate control conrado cpap depression/anxiety ativan, lexapro dvt prophylaxis - on eliquis full code reason for continued hospitalization: iv hydration, monitoring post presyncope, still hypotensive Quality Stroke Does the patient have a stroke diagnosis?: No VTE Prior VTE?: No VTE Risk Level:: Medical - moderate - high VTE Device Contraindication: Treatment Not Indicated VTE Drug Contraindication: N/A - Med Ordered
--- NOTE | 2022-01-18 12:20 | PM.PNCARD ---
Subjective Subjective Date of Service: 01/18/22 <СВЕТЛАНА Salcedo - Last Filed: 01/18/22 12:36> 01/18/22 <Navi Wilson MD - Last Filed: 01/18/22 15:15> Principal diagnosis: dizziness, presyncope <СВЕТЛАНА Salcedo - Last Filed: 01/18/22 12:36> Interval history: Seen at 1020. Today she is observed sitting up in recliner. Reports feeling tired and left knee is sore. No chest pains, heart palpitations, sob, dizziness. Still has IV fluid infusing at 80cc/hr. Tele showing afib with controlled rates 70-80s, did have short episode of elevated heart rate last evening. BP improving. <СВЕТЛАНА Salcedo - Last Filed: 01/18/22 12:36> Review of Systems Review of Systems as above <СВЕТЛАНА Salcedo - Last Filed: 01/18/22 12:36> Yes all other systems are reviewed and are negative <СВЕТЛАНА Salcedo - Last Filed: 01/18/22 12:36> Physical Exam Vital Signs: Last Vital Signs Temp 97.5 F 01/18/22 11:32 Pulse 70 01/18/22 11:32 Resp 18 01/18/22 11:32 BP 117/80 01/18/22 11:32 Pulse Ox 99 01/18/22 11:32 O2 Del Method 01/18/22 11:32 BMI result Body Mass Index 29.4 <СВЕТЛАНА Salcedo - Last Filed: 01/18/22 12:36> Const General: cooperative, no acute distress, alert and awake <СВЕТЛАНА Salcedo - Last Filed: 01/18/22 12:36> Orientation/consciousness: patient oriented x3 <СВЕТЛАНА Salcedo Last Filed: 01/18/22 12:36> Neck Neck: Yes normal visual inspection and Yes no JVD <СВЕТЛАНА Salcedo Last Filed: 01/18/22 12:36> Resp Effort & Inspection: normal respiratory effort, able to speak in complete sentences and not labored <СВЕТЛАНА Salcedo Last Filed: 01/18/22 12:36> Auscultation: clear to auscultation bilaterally, no crackles, no rales, no rhonchi and no wheezes <Wendy RoldanJOSE LUISLucila - Last Filed: 01/18/22 12:36> Cardio Rate: regular rate <Wendy Roldan СВЕТЛАНА - Last Filed: 01/18/22 12:36> Heart sounds: S1 normal heart sound present and S2 normal heart sound present <Wendy RoldanJOSE LUISLucila - Last Filed: 01/18/22 12:36> Peripheral pulses: Peripheral pulses 2+ throughout <Wendy RoldanNAVJOTWatson - Last Filed: 01/18/22 12:36> GI Inspection: Yes normal to inspection <Wendy RoldanJOSE LUISLucila - Last Filed: 01/18/22 12:36> Neuro General: patient oriented x3 <Wendy RoldanNAVJOTWatson - Last Filed: 01/18/22 12:36> Extrem General: Yes normal to inspection and No edema <Wendy RoldanNAVJOTWatson - Last Filed: 01/18/22 12:36> Objective Labs and Meds Result diagrams: : 01/18/22 05:50 01/18/22 05:50 <Wendy RoldanJOSE LUISLucila - Last Filed: 01/18/22 12:36> Lab results: Laboratory Results - last 24 hr 01/18/22 01/18/22 05:50 05:50 WBC 8.8 RBC 3.87 L Hgb 11.5 L Hct 35.7 L MCV 92.2 MCH 29.7 MCHC 32.2 RDW 14.7 Plt Count 281 MPV 10.2 Absolute Nucleated RBC 0.000 Nucleated RBC % (auto) 0.0 Sodium 136 Potassium 3.4 Chloride 94 L Carbon Dioxide 35 H Anion Gap 10 L BUN 7 L Creatinine 0.62 Estim Creat Clear Calc 86.3 Estimated GFR > 60 Fasting Glucose 91 Calcium 8.4 <Wendy RoldanСВЕТЛАНА - Last Filed: 01/18/22 12:36> Progress Note: A&P Assessment and plan (1) Near syncope: Status: Acute <Wendy RoldanСВЕТЛАНА Last Filed: 01/18/22 12:36> Assessment and Plan: Dizziness and falls prior to admit. Notes indicate that she had not been eating well and with lab results showing signs of dehydration. BP was running low, mostly in the 90s systolic.. Her admitting symptoms likely related to hypotension, dehydration. Home Aldactone and Torsemide were placed on hold. Diltiazem placed on hold yesterday due to low BP. Echo done yesterday shows EF > 70%, mod LVH, inferior vena cava collapsing >50% with inspiration, consistent with reduced intravascular volume. Has been recieving IV NS for rehydration. No clinical signs indicating HF. She does report fatigue. Ongoing management of hydration as directed by hospitalist. Watch closely for signs of HF. Has had HFpEF in past. We will follow along. <СВЕТЛАНА Salcedo - Last Filed: 01/18/22 12:36> (2) Fall: Status: Acute <СВЕТЛАНА Salcedo - Last Filed: 01/18/22 12:36> (3) Atrial fibrillation: Status: Acute <СВЕТЛАНА Salcedo - Last Filed: 01/18/22 12:36> Assessment and Plan: Hx of chronic afib. Rates controlled at present, 70-80s. Home Diltiazem on hold due to low BPs. She is recieving home Metoprolol and on Digoxin for heart rate control. On Eliquis for anticoagulation. No bleeding issues reported. Ongoing tele monitoring during admit. If BP allows, Can restart Diltiazem if needed for rate control. <СВЕТЛАНА Salcedo - Last Filed: 01/18/22 12:36> (4) Contusion of knee, left: Status: Acute <СВЕТЛАНА Salcedo - Last Filed: 01/18/22 12:36> Assessment and Plan: Being followed by ortho <СВЕТЛАНА Salcedo Last Filed: 01/18/22 12:36> Assessment and Plan: Near syncope due to orthostasis. Clinically hypovolemic and echocardiography also has shown hyperdynamic LV function and small IVC size. All these findings are consistent with dehydration. Gentle hydration can be tried. Heart rate control is good. Avoid Cardizem for now. Can stay on beta-sandro and digoxin for now. As heart rate is improved her digoxin can be changed to every other day along with metoprolol. Thank you for allowing me to participate in the care of your patient. Please feel free to contact me if you have any questions. <Navi Wilson MD - Last Filed: 01/18/22 15:15> Time Spent With Patient Time: Total time spent is greater than 50% in coordination of care (as documented) at patient's floor/unit and/or counseling patient: 22 <СВЕТЛАНА Salcedo - Last Filed: 01/18/22 12:36> Progress Note: Quality Stroke Does the patient have a stroke diagnosis?: No <СВЕТЛАНА Salcedo - Last Filed: 01/18/22 12:36> Procedures Date of Service Date of Service: 01/18/22 <СВЕТЛАНА Salcedo - Last Filed: 01/18/22 12:36>
[2022-01-18] MEDS: Acetaminophen 325 MG TABLET 650 MG PO (15:53)
[2022-01-18] MEDS: Sennosides 8.6 MG TABLET 17.2 MG PO (20:46)
[2022-01-18] MEDS: Atorvastatin Calcium 10 MG TABLET PO (20:46)
[2022-01-19] VITALS (7 sets, daily range): BP systolic 106–125; BP diastolic 56–69; PULSE 63–94; RESP 15–20; TEMP 35.8–36.8; O2SAT 96–98
[2022-01-19] MEDS: 0.9 % Sodium Chloride Flush 3 ML SYRINGE IVFLUSH ×2 (00:15→09:13)
[2022-01-19] MEDS: LORazepam 1 MG TABLET PO (00:15)
[2022-01-19] MEDS: Melatonin 3 MG TABLET 6 MG PO (00:16)
[2022-01-19] MEDS: Omeprazole 20 MG CAPSULE.DR PO (05:56)
[2022-01-19 06:41] LABS: Hematocrit 34.7 % (37.0-47.0); Mean Corpuscular HGB Conc 31.7 g/dl (31.0-35.0); Mean Corpuscular Hemoglobin 29.2 pg (27.0-33.0); Mean Platelet Volume 10.2 fL (9.4-12.3); Platelet Count 269 X10*3/uL (160-400); Red Blood Count 3.77 X10*6/uL (4.20-5.50); Red Cell Distribution Width 14.8 % (11.0-16.0); White Blood Count 8.2 X10*3/uL (4.8-10.8)
[2022-01-19 06:52] LABS: Anion Gap 10 (12-20); Blood Urea Nitrogen 7 mg/dL (9-16); Calcium 8.7 mg/dL (8.4-10.2); Carbon Dioxide 33 mmol/L (22-29); Chloride 97 mmol/L (96-108); Creatinine Clr Calc Pharmacy 82.3; Estimated Glomerular Filt Rate > 60; Glucose Fasting 89 mg/dL (60-99); Potassium 3.6 mmol/L (3.3-5.1); Sodium 136 mmol/L (135-145)
[2022-01-19] MEDS: Escitalopram Oxalate 10 MG TABLET PO (09:13)
[2022-01-19] MEDS: Metoprolol Tartrate 100 MG TABLET PO (09:13)
[2022-01-19] MEDS: Digoxin 0.125 MG TABLET PO (09:13)
[2022-01-19] MEDS: Apixaban 5 MG TABLET PO (09:13)
[2022-01-19] MEDS: Magnesium Oxide 400 MG TABLET PO (09:13)
--- NOTE | 2022-01-19 13:04 | PM.DS ---
DS: Providers Provider Date of Service: 01/19/22 Date of admission: 01/16/22 02:02 Primary care physician: Juan Miguel Martinez MD Consults: 01/16/22 02:02 Consult to Cardiology Routine Consulting Provider: Vladislav Cervantes Reason for consultation: Near Syncope 01/16/22 02:52 Consult to Orthopedics Routine Consulting Provider: Sen Vee Reason for consultation: Left knee effusion DS: Diagnosis Discharge Diagnosis (1) Near syncope: Status: Acute (2) Fall: Status: Acute (3) Atrial fibrillation: Status: Acute (4) Contusion of knee, left: Status: Acute DS: Summary Hospital Course Hospital Course: Admission note HPI 76-year-old female with a past medical history of hypertension, hyperlipidemia, CAD, CHF, AFib on Eliquis, history of head and neck cancer, sick sinus syndrome, history of bradycardia, ANITA, morbid obesity presented to the hospital today with a chief complaint of fall.? Patient reported that the day before she was walking with the help of her walker and showed only she lost control and fell on her buttocks; did not lose consciousness; denies any headaches palpitations lightheadedness or dizziness.; today she had similar episode and hit her head.? Subsequently came to the ER for further evaluation.? Denies any shortness of breath.Patient reported that when she fell she had pain in her obtain bone and also on the left knee; denies any swelling.? Denies any nausea vomiting or diarrhea.?Denies any urinary symptoms.?Denies any chest pain Per ER team patient's Exam was benign, lumbar spine x-ray showed no acute findings, left knee x-ray showed no evidence of fracture but noted moderate knee joint effusion, chest x-ray showed no acute cardiopulmonary process, CT head showed no acute intracranial hemorrhage, CT C-spine showed no acute fracture or subluxation; creatinine of 1.0-baseline 0.7; orthostatics were negative; patient blood pressure on the soft side; patient received morphine for pain, normal saline IV fluids, potassium supplementation, mild a drain x1; admitted to the hospital for further management Hospital course the patient was admitted to the hospital after sustaining a fall with presyncope at home. Believed to be secondary to orthostatic hypotension as she was found to have low blood pressure readings at time of presentation and during her hospital stay. Cardizem, spironolactone and torsemide were held at time of presentation as she received IV fluid with fair response as her blood pressure improved and her orthostatic readings were acceptable with no reported lightheadedness upon standing. Evaluated by Cardiology team who recommended to hold Cardizem at time of discharge. Spironolactone was also held but torsemide restarted every other day instead of daily. Started on digoxin as the patient used to take it before with good control of her heart rate and rhythm. To be followed with Cardiology as outpatient for possible decrease the dose of digoxin down the road. She had a fall with left knee pain and effusion. orthopedics was consulted for further evaluation. X-rays of the left knee are negative for any acute fracture or dislocation. Knee immobilizer as needed for comfort and walker.?May weightbear as tolerated. Gentle range of motion. Evaluated by Physical therapy who recommended short-term rehab. Discontinue diltiazem and spironolactone Decrease torsemide to 1 tablet every 2 days To follow up with Cardiology as outpatient Encourage oral intake increase activity To follow-up with orthopedic clinic as needed Time Spent with Patient Time attestation: Total time spent providing and/or coordinating discharge services: Discharge coordination time: Greater than 30 minutes Quality: Safe Use of Opioids Does Pt have an Active Cancer Diagnosis on the Problem List?: No Quality: Stroke Does the patient have a stroke diagnosis?: No Physical Exam Vital Signs: Vital Signs: Last Vital Signs Temp 97.6 F 01/19/22 12:00 Pulse 63 01/19/22 12:00 Resp 20 01/19/22 12:00 BP 110/57 L 01/19/22 12:00 Pulse Ox 97 01/19/22 12:00 O2 Del Method 01/19/22 12:00 BMI result Body Mass Index 29.4 Const: Other: Constitutional : Alert, oriented, not in distress Neck : Normal inspection, Supple Cardiovascular : Irregular irregular, no JVP, no lower extremity edema Respiratory : fair bilateral air entry, no crackles, wheezes or rhonchi Gastrointestinal: soft, lax, Normal bowel sounds, Non tender Skin : Warm, Dry Neurological : Alert & oriented x3, No focal deficit , CN 2-12 within normal DS: Data Data Completed and Pending Completed studies during hospitalization [Text1]: Procedures Bypass Trachea to Cutaneous with Tracheostomy Device, Open Approach (12/13/20) Dilation of Esophagus with Intraluminal Device, Via Natural or Artificial Opening Endoscopic (12/13/20) Drainage of Gallbladder with Drainage Device, Percutaneous Approach (12/13/20) Drainage of Right Lung, Via Natural or Artificial Opening Endoscopic, Diagnostic (12/13/20) Drainage of Right Pleural Cavity with Drainage Device, Percutaneous Approach (12/13/20) Excision of Stomach, Pylorus, Via Natural or Artificial Opening Endoscopic, Diagnostic (12/13/20) Insertion of Endotracheal Airway into Trachea, Via Natural or Artificial Opening (12/13/20) Insertion of Endotracheal Airway into Trachea, Via Natural or Artificial Opening Endoscopic (12/13/20) Insertion of Feeding Device into Stomach, Percutaneous Approach (12/13/20) Insertion of Infusion Device into Left Cephalic Vein, Percutaneous Approach (12/13/20) Insertion of Infusion Device into Right Cephalic Vein, Percutaneous Approach (11/17/20) Insertion of Infusion Device into Superior Vena Cava, Percutaneous Approach (12/13/20) Insertion of Monitoring Device into Upper Artery, Percutaneous Approach (12/13/20) Introduction of Mineral-based Topical Hemostatic Agent into Upper GI, Via Natural or Artificial Opening Endoscopic, [employer] 6 (12/13/20) Respiratory Ventilation, 24-96 Consecutive Hours (12/13/20) Respiratory Ventilation, Greater than 96 Consecutive Hours (12/13/20) Hoahaoism of Cardiac Rhythm, Single (11/17/20) Transfusion of Nonautologous Frozen Plasma into Peripheral Vein, Percutaneous Approach (12/13/20) Transfusion of Nonautologous Red Blood Cells into Peripheral Vein, Percutaneous Approach (12/13/20) Labs on day of discharge: Laboratory Results - last 24 hr 01/19/22 01/19/22 05:56 05:56 WBC 8.2 RBC 3.77 L Hgb 11.0 L Hct 34.7 L MCV 92.0 MCH 29.2 MCHC 31.7 RDW 14.8 Plt Count 269 MPV 10.2 Absolute Nucleated RBC 0.000 Nucleated RBC % (auto) 0.0 Sodium 136 Potassium 3.6 Chloride 97 Carbon Dioxide 33 H Anion Gap 10 L BUN 7 L Creatinine 0.65 Estim Creat Clear Calc 82.3 Estimated GFR > 60 Fasting Glucose 89 Calcium 8.7 Imaging Chest x-ray: Radiologist's impression: ITS Impressions Cervical Spine CT 01/15/22 21:22 IMPRESSION: 1. No evidence of acute intracranial hemorrhage or edematous territorial infarction. Moderate underlying microangiopathy and generalized cerebral volume loss. 2. No evidence of acute fracture or traumatic subluxation of the cervical spine. 3. Moderate multilevel degenerative spondyloarthropathy of the cervical spine as described in detail above. Most notably on this limited exam without intrathecal contrast, there appears to be at least mild spinal canal stenoses at C4-C5 and C5-C6. Head CT 01/15/22 21:50 IMPRESSION: 1. No evidence of acute intracranial hemorrhage or edematous territorial infarction. Moderate underlying microangiopathy and generalized cerebral volume loss. 2. No evidence of acute fracture or traumatic subluxation of the cervical spine. 3. Moderate multilevel degenerative spondyloarthropathy of the cervical spine as described in detail above. Most notably on this limited exam without intrathecal contrast, there appears to be at least mild spinal canal stenoses at C4-C5 and C5-C6. Chest X-Ray 01/15/22 22:57 IMPRESSION: 1. No acute intrathoracic disease. Resolved CHF and pleural effusions when compared to prior 2. Postop hardware lumbosacral spine. No acute finding. Knee X-Ray 01/15/22 22:57 IMPRESSION: No fractures. Moderate knee joint effusion. Lumbar Spine X-Ray 01/15/22 22:57 IMPRESSION: 1. No acute intrathoracic disease. Resolved CHF and pleural effusions when compared to prior 2. Postop hardware lumbosacral spine. No acute finding. Discharge Plan Discharge Patient Disposition: [facility] Discharge Diagnosis: Fall Postural hypotension Referrals: [facility] [Other] - 1 Week Juan Miguel Martinez MD [Primary Care Provider] - 1 Week Discharge Medications: New digoxin 125 mcg (0.125 mg) Tablet 0.125 mg PO DAILY 30 Days Qty: 30 0RF Continued Eliquis 5 mg tablet 5 mg PO BID 30 Days Qty: 60 0RF Rx Instructions: Needs cardiology follow up before more refills omeprazole 20 mg capsule,delayed release(DR/EC) 1 cap PO BID magnesium oxide 400 mg (241.3 mg magnesium) Tablet 400 mg PO BIDPC Qty: 60 0RF gabapentin 300 mg capsule 1 cap PO BID lorazepam 1 mg tablet 1 tab PO TID PRN (Reason: Anxiety) escitalopram oxalate 10 mg tablet 1 tab PO DAILY simvastatin 10 mg Tablet 10 mg PO BEDTIME metoprolol tartrate 100 mg Tablet 100 mg PO BID sucralfate 1 gram Tablet 500 mg PO QIDACHS Changed torsemide 20 mg tablet 20 mg PO Q OTHER DAY Qty: 15 0RF Discontinued diltiazem HCl 30 mg Tablet 60 mg PO QID 30 Days Qty: 240 0RF Protocol: Hold for SBP/HR < HOLD for SBP < : 90 HOLD for HR < : 60 spironolactone 25 mg Tablet 12.5 mg PO DAILY 30 Days Qty: 15 0RF Protocol: Hold for SBP< HOLD for SBP < : 90 Discharge Orders: Discharge Order (Routine); Ordered 01/19/22 Ordered By: Marino Douglas Diet: low salt diet Activity on Discharge: As tolerated Stand Alone Forms: Patient Portal Discharge page Care Plan Goals: Read below Health Concerns: Read below Plan of Treatment: Read below Assessment: you were admitted to the hospital for evaluation of near syncope and a fall. Found to be dehydrated with low blood pressure. Received IV fluids as your Cardizem and spironolactone were held. Evaluated by Cardiology team who recommended to continue metoprolol and digoxin for atrial fibrillation controlled. Seen by physical therapy team who recommended short-term rehab. Discontinue diltiazem and spironolactone Decrease torsemide to 1 tablet every 2 days To follow up with Cardiology as outpatient Encourage oral intake increase activity
--- NOTE | 2022-01-19 13:15 | MHC.CM.PN ---
pt and tomter notified of dc today to [facility]
[2022-01-19 13:39] LABS: IDNOW Serial# 16C4AD1C
[2022-01-19 13:40] LABS: COVID-19 Test Negative (Negative)
== END 2022-01-19 17:29 | disposition skilled nursing facility (03) ==
LOC: HO.ED 01-16 01:39 → HO.EDOVER 01-16 02:11 → HO.IMC 01-17 07:38
PROVIDERS: Internal Medicine; Admitting Provider Hospitalist; Emergency Provider Internal Medicine; PCP Internal Medicine; Visit Provider Student in an Organized Health Care Education/Training Program
DX: R55 Syncope and collapse (principal); I48.0 Paroxysmal atrial fibrillation; S80.02XA Contusion of left knee, initial encounter; W19.XXXA Unspecified fall, initial encounter; Y93.9 Activity, unspecified; Y92.9 Unspecified place or not applicable; Y99.8 Other external cause status; E86.0 Dehydration; R00.0 Tachycardia, unspecified; I49.5 Sick sinus syndrome; I25.10 Atherosclerotic heart disease of native coronary artery without angina pectoris; I11.0 Hypertensive heart disease with heart failure; I50.30 Unspecified diastolic (congestive) heart failure; I25.2 Old myocardial infarction; J96.02 Acute respiratory failure with hypercapnia; G47.33 Obstructive sleep apnea (adult) (pediatric); R53.83 Other fatigue; E78.5 Hyperlipidemia, unspecified; E66.01 Morbid (severe) obesity due to excess calories; M25.462 Effusion, left knee; M47.812 Spondylosis without myelopathy or radiculopathy, cervical region; M48.02 Spinal stenosis, cervical region; J30.2 Other seasonal allergic rhinitis; Z87.891 Personal history of nicotine dependence; Z20.822 Contact with and (suspected) exposure to COVID-19; Z68.29 Body mass index [BMI] 29.0-29.9, adult; Z86.74 Personal history of sudden cardiac arrest; Z98.890 Other specified postprocedural states; Z88.8 Allergy status to other drugs, medicaments and biological substances; Z79.01 Long term (current) use of anticoagulants; Z79.899 Other long term (current) drug therapy
CPT/HCPCS: 36415; 70450; 71045; 72100; 72125; 73562; 80048; 80053; 83735; 84484; 85025; 85027; 85610; 85730; 87635; 93005; 93306; 96361; 96374; 96375; 96376; 97110; 97116; 97162; 97530; 99219; 99285; J2270; J2405; Q9957

== ENCOUNTER → 2022-03-29 15:52 | Outpatient (REF) | payer MEDICARE, MEDICAID, SELFPAY | LOC: HO.SL 15:52 | PROVIDERS: PCP Internal Medicine; Visit Provider Internal Medicine | DX: G47.30 Sleep apnea, unspecified (principal); R06.83 Snoring; R40.0 Somnolence | CPT/HCPCS: 95806 ==

== ENCOUNTER 2022-03-31 15:25 | Outpatient (REF) | payer MEDICARE, MEDICAID, SELFPAY ==
[2022-03-31 15:37] LABS: MANUAL DIFF FLAG NO
[2022-03-31 15:58] LABS: Basophils Absolute Auto 0.1 X10*3/uL (0.0-0.2); Basophils Percent Auto 0.7 % (0-2); Eosinophils Absolute Auto 0.1 X10*3/uL (0.0-0.4); Eosinophils Percent Auto 1.2 % (0-4); Hematocrit 37.1 % (37.0-47.0); Hemoglobin 11.9 g/dl (12.0-16.0); Imm Gran Abs Auto 0.03 X10*3/uL (0.00-0.03); Imm Gran Pct Auto 0.4 % (0.0-0.4); Lymphocytes Absolute Auto 1.2 X10*3/uL (1.2-4.9); Lymphocytes Percent Auto 15.8 % (20-40); Mean Corpuscular HGB Conc 32.1 g/dl (31.0-35.0); Mean Corpuscular Hemoglobin 29.2 pg (27.0-33.0); Mean Corpuscular Volume 90.9 fL (80.0-98.0); Mean Platelet Volume 9.6 fL (9.4-12.3); Monocytes Absolute Auto 0.6 X10*3/uL (0.1-1.2); Monocytes Percent Auto 7.7 % (2-11); Neutrophils Absolute Auto 5.5 x10*3/uL (2.0-8.3); Neutrophils Percent Auto 74.2 % (45-73); Platelet Count 326 X10*3/uL (160-400); Red Blood Count 4.08 X10*6/uL (4.20-5.50); Red Cell Distribution Width 15.1 % (11.0-16.0); White Blood Count 7.4 X10*3/uL (4.8-10.8)
[2022-03-31 16:07] LABS: Estimated Average Glucose 108 mg/dL; Hemoglobin A1c % 5.4 %
[2022-03-31 16:47] LABS: Alanine Aminotransferase 10 U/L (0-31); Albumin Level 3.7 g/dL (3.5-5.0); Alkaline Phosphatase 83 U/L (39-117); Anion Gap 14 (12-20); Aspartate Amino Transferase 17 U/L (5-31); Bilirubin Total 0.6 mg/dL (0.0-1.0); Blood Urea Nitrogen 8 mg/dL (9-16); Calcium 9.1 mg/dL (8.4-10.2); Carbon Dioxide 29 mmol/L (22-29); Chloride 101 mmol/L (96-108); Estimated Glomerular Filt Rate > 60; Glucose Random 120 mg/dL (60-115); Potassium 4.3 mmol/L (3.3-5.1); Sodium 140 mmol/L (135-145); Total Protein 6.5 g/dL (6.5-8.0)
== END 2022-03-31 15:26 | disposition home or self-care (01) ==
LOC: HO.LAB 15:25
PROVIDERS: Visit Provider Internal Medicine
DX: I48.20 Chronic atrial fibrillation, unspecified (principal); I11.0 Hypertensive heart disease with heart failure; I50.30 Unspecified diastolic (congestive) heart failure; R73.03 Prediabetes; K21.9 Gastro-esophageal reflux disease without esophagitis; I25.10 Atherosclerotic heart disease of native coronary artery without angina pectoris; Z09 Encounter for follow-up examination after completed treatment for conditions other than malignant neoplasm; Z79.899 Other long term (current) drug therapy; Z79.01 Long term (current) use of anticoagulants
CPT/HCPCS: 36415; 80053; 83036; 85025; 99212

== ENCOUNTER 2022-05-25 16:28 | Outpatient (REF) | payer MEDICARE, MEDICAID, SELFPAY ==
[2022-05-25 16:42] LABS: MANUAL DIFF FLAG NO
[2022-05-25 16:51] LABS: Basophils Absolute Auto 0.1 X10*3/uL (0.0-0.2); Basophils Percent Auto 0.8 % (0-2); Eosinophils Absolute Auto 0.1 X10*3/uL (0.0-0.4); Eosinophils Percent Auto 1.5 % (0-4); Hematocrit 42.6 % (37.0-47.0); Hemoglobin 13.9 g/dl (12.0-16.0); Imm Gran Abs Auto 0.01 X10*3/uL (0.00-0.03); Imm Gran Pct Auto 0.2 % (0.0-0.4); Lymphocytes Absolute Auto 1.2 X10*3/uL (1.2-4.9); Lymphocytes Percent Auto 17.9 % (20-40); Mean Corpuscular HGB Conc 32.6 g/dl (31.0-35.0); Mean Corpuscular Hemoglobin 28.7 pg (27.0-33.0); Mean Platelet Volume 9.7 fL (9.4-12.3); Monocytes Absolute Auto 0.5 X10*3/uL (0.1-1.2); Monocytes Percent Auto 7.8 % (2-11); Neutrophils Absolute Auto 4.8 x10*3/uL (2.0-8.3); Neutrophils Percent Auto 71.8 % (45-73); Platelet Count 287 X10*3/uL (160-400); Red Blood Count 4.84 X10*6/uL (4.20-5.50); Red Cell Distribution Width 15.9 % (11.0-16.0); White Blood Count 6.7 X10*3/uL (4.8-10.8)
[2022-05-25 17:21] LABS: Alanine Aminotransferase 13 U/L (0-31); Albumin Level 4.2 g/dL (3.5-5.0); Alkaline Phosphatase 93 U/L (39-117); Anion Gap 15 (12-20); Aspartate Amino Transferase 22 U/L (5-31); Bilirubin Total 0.5 mg/dL (0.0-1.0); Blood Urea Nitrogen 19 mg/dL (9-16); Calcium 9.8 mg/dL (8.4-10.2); Carbon Dioxide 32 mmol/L (22-29); Chloride 93 mmol/L (96-108); Estimated Glomerular Filt Rate > 60; Glucose Random 103 mg/dL (60-115); Iron 85 mcg/dL (30-160); Percent Iron Saturation 21 % (15-50); Potassium 4.4 mmol/L (3.3-5.1); Sodium 136 mmol/L (135-145); Total Iron Binding Capacity 397 mcg/dL (228-428); Total Protein 7.1 g/dL (6.5-8.0); Unsaturated Iron Binding 312 ug/dL
[2022-05-25 17:46] LABS: Free T4 (Free Thyroxine) 1.03 ng/dL (0.71-1.85); Thyroid Stimulating Hormone 0.97 uIU/mL (0.32-4.0)
== END 2022-05-25 16:29 | disposition home or self-care (01) ==
LOC: HO.LAB 16:28
PROVIDERS: Visit Provider Internal Medicine
DX: D64.9 Anemia, unspecified (principal); I48.91 Unspecified atrial fibrillation; I50.9 Heart failure, unspecified; I25.10 Atherosclerotic heart disease of native coronary artery without angina pectoris; E03.9 Hypothyroidism, unspecified
CPT/HCPCS: 36415; 80053; 83540; 83735; 84439; 84443; 85025

== ENCOUNTER 2022-06-27 15:51 | Outpatient (REF) | payer MEDICARE, MEDICAID, SELFPAY ==
--- NOTE | ~2022-06-27 | XR_ITS ---
EXAMINATION: XR SHOULDER, RIGHT CLINICAL INFORMATION: Status post fall. Right shoulder pain COMPARISON: None TECHNIQUE: AP external rotation, Grashey, scapular Y, and axillary views of the right shoulder. FINDINGS: There is a hypertrophic bony changes of the acromion. The glenohumeral joint space is normal. No visible acute fracture, dislocation or bony erosive changes seen. The soft tissues are normal. XR/XR shoulder RT min 2V IMPRESSION: Hypertrophic bony changes of the acromion. No visible acute fracture or dislocation seen.
== END 2022-06-27 15:52 | disposition home or self-care (01) ==
LOC: HO.XRAY 15:51
PROVIDERS: Absent Provider Internal Medicine Cardiovascular Disease; PCP Internal Medicine; Visit Provider Internal Medicine
DX: M25.511 Pain in right shoulder (principal); Z91.81 History of falling; I48.91 Unspecified atrial fibrillation; I50.30 Unspecified diastolic (congestive) heart failure
CPT/HCPCS: 73030; 99212

== ENCOUNTER 2022-11-11 14:37 | Outpatient (REF) | payer MEDICARE, MEDICAID, SELFPAY ==
[2022-11-11 14:50] LABS: MANUAL DIFF FLAG NO
[2022-11-11 15:38] LABS: Basophils Percent Auto 0.7 % (0-2); Eosinophils Absolute Auto 0.2 X10*3/uL (0.0-0.4); Hematocrit 43.6 % (37.0-47.0); Hemoglobin 14.9 g/dl (12.0-16.0); Imm Gran Abs Auto 0.02 X10*3/uL (0.00-0.03); Imm Gran Pct Auto 0.4 % (0.0-0.4); Lymphocytes Absolute Auto 1.2 X10*3/uL (1.2-4.9); Lymphocytes Percent Auto 21.5 % (20-40); Mean Corpuscular HGB Conc 34.2 g/dl (31.0-35.0); Mean Corpuscular Hemoglobin 29.9 pg (27.0-33.0); Mean Corpuscular Volume 87.6 fL (80.0-98.0); Mean Platelet Volume 9.4 fL (9.4-12.3); Monocytes Absolute Auto 0.5 X10*3/uL (0.1-1.2); Monocytes Percent Auto 9.5 % (2-11); Neutrophils Absolute Auto 3.7 x10*3/uL (2.0-8.3); Neutrophils Percent Auto 64.9 % (45-73); Platelet Count 243 X10*3/uL (160-400); Red Blood Count 4.98 X10*6/uL (4.20-5.50); Red Cell Distribution Width 17.2 % (11.0-16.0); White Blood Count 5.7 X10*3/uL (4.8-10.8)
[2022-11-11 16:04] LABS: Digoxin 0.4 ng/mL (0.8-2.0)
[2022-11-11 16:07] LABS: Alanine Aminotransferase 20 U/L (0-31); Albumin Level 4.1 g/dL (3.5-5.0); Alkaline Phosphatase 92 U/L (39-117); Anion Gap 12 (12-20); Aspartate Amino Transferase 29 U/L (5-31); Bilirubin Total 0.9 mg/dL (0.0-1.0); Blood Urea Nitrogen 18 mg/dL (9-16); Calcium 9.1 mg/dL (8.4-10.2); Carbon Dioxide 38 mmol/L (22-29); Chloride 85 mmol/L (96-108); Cholesterol 165 mg/dL; Estimated Glomerular Filt Rate > 60; Glucose Random 76 mg/dL (60-115); Iron 137 mcg/dL (30-160); Percent Iron Saturation 35 % (15-50); Sodium 131 mmol/L (135-145); Total Iron Binding Capacity 395 mcg/dL (228-428); Total Protein 6.9 g/dL (6.5-8.0); Unsaturated Iron Binding 258 ug/dL
[2022-11-11 16:23] LABS: Free T4 (Free Thyroxine) 0.97 ng/dL (0.71-1.85); Thyroid Stimulating Hormone 2.35 uIU/mL (0.32-4.0); Vitamin D 25-OH Total 61.4 ng/mL (>30)
== END 2022-11-11 14:38 | disposition home or self-care (01) ==
LOC: HO.LAB 14:37
PROVIDERS: PCP Internal Medicine; Visit Provider Internal Medicine
DX: I11.0 Hypertensive heart disease with heart failure (principal); I50.9 Heart failure, unspecified; I48.91 Unspecified atrial fibrillation; K21.9 Gastro-esophageal reflux disease without esophagitis; I25.10 Atherosclerotic heart disease of native coronary artery without angina pectoris
CPT/HCPCS: 36415; 80053; 80162; 82306; 82465; 83540; 84439; 84443; 85025

== ENCOUNTER → 2022-12-20 14:12 | Outpatient (BNVA) | payer MEDICARE, MEDICAID, SELFPAY | PROVIDERS: PCP Internal Medicine; Referring Provider Internal Medicine; Visit Provider Nurse Practitioner Family | DX: I11.0 Hypertensive heart disease with heart failure (principal); I50.30 Unspecified diastolic (congestive) heart failure; I48.20 Chronic atrial fibrillation, unspecified; I48.0 Paroxysmal atrial fibrillation; I25.10 Atherosclerotic heart disease of native coronary artery without angina pectoris; Z98.890 Other specified postprocedural states | CPT/HCPCS: 99212 ==

== ENCOUNTER 2023-02-22 15:16 | Outpatient (REF) | payer MEDICARE, MEDICAID, SELFPAY ==
[2023-02-22 15:37] LABS: MANUAL DIFF FLAG NO
[2023-02-22 17:06] LABS: Basophils Absolute Auto 0.1 X10*3/uL (0.0-0.2); Basophils Percent Auto 0.7 % (0-2); Eosinophils Absolute Auto 0.1 X10*3/uL (0.0-0.4); Eosinophils Percent Auto 1.6 % (0-4); Hematocrit 50.1 % (37.0-47.0); Hemoglobin 17.3 g/dl (12.0-16.0); Imm Gran Abs Auto 0.07 X10*3/uL (0.00-0.03); Imm Gran Pct Auto 0.8 % (0.0-0.4); Lymphocytes Percent Auto 11.1 % (20-40); Mean Corpuscular HGB Conc 34.5 g/dl (31.0-35.0); Mean Corpuscular Hemoglobin 32.8 pg (27.0-33.0); Mean Corpuscular Volume 95.1 fL (80.0-98.0); Mean Platelet Volume 9.4 fL (9.4-12.3); Monocytes Percent Auto 11.4 % (2-11); Neutrophils Absolute Auto 6.6 x10*3/uL (2.0-8.3); Neutrophils Percent Auto 74.4 % (45-73); Platelet Count 230 X10*3/uL (160-400); Red Blood Count 5.27 X10*6/uL (4.20-5.50); White Blood Count 8.9 X10*3/uL (4.8-10.8)
[2023-02-22 18:09] LABS: B Type Natriuretic Peptide 135 pg/mL (<100)
[2023-02-23 02:31] LABS: Free T4 (Free Thyroxine) 0.99 ng/dL (0.71-1.85); Thyroid Stimulating Hormone 3.29 uIU/mL (0.32-4.0)
[2023-02-23 02:46] LABS: Anion Gap 20 (12-20)
[2023-02-23 02:50] LABS: Alanine Aminotransferase 28 U/L (0-31); Albumin Level 4.7 g/dL (3.5-5.0); Alkaline Phosphatase 110 U/L (39-117); Aspartate Amino Transferase 40 U/L (5-31); Bilirubin Total 1.1 mg/dL (0.0-1.0); Blood Urea Nitrogen 16 mg/dL (9-16); Carbon Dioxide 35 mmol/L (22-29); Chloride 82 mmol/L (96-108); Estimated Glomerular Filt Rate > 60; Glucose Random 106 mg/dL (60-115); Potassium 3.1 mmol/L (3.3-5.1); Sodium 134 mmol/L (135-145); Total Protein 8.5 g/dL (6.5-8.0)
== END 2023-02-22 15:17 | disposition home or self-care (01) ==
LOC: HO.LAB 15:16
PROVIDERS: PCP Internal Medicine; Visit Provider Internal Medicine
DX: I48.91 Unspecified atrial fibrillation (principal); M19.90 Unspecified osteoarthritis, unspecified site; K21.9 Gastro-esophageal reflux disease without esophagitis; I50.9 Heart failure, unspecified; J44.9 Chronic obstructive pulmonary disease, unspecified; N18.9 Chronic kidney disease, unspecified; D63.1 Anemia in chronic kidney disease
CPT/HCPCS: 36415; 80053; 83735; 83880; 84439; 84443; 85025

== ENCOUNTER 2023-03-24 13:57 | Emergency (ER) | payer MEDICARE, MEDICAID, SELFPAY ==
--- NOTE | ~2023-03-24 | XR_ITS ---
EXAMINATION: XR LUMBOSACRAL SPINE CLINICAL INFORMATION: Low back pain. COMPARISON: Lumbar spine radiographs dated 01/15/2022. TECHNIQUE: Three views of the lumbosacral spine. FINDINGS: The patient is status post posterior fusion from L4 to S1 with good anatomic alignment. A disc spacer is noted at L4-5. Severe degenerative disc disease is seen at L5-S1. Mild to moderate degenerative changes are seen in the remainder of the visualized thoracolumbar spine. There is no acute fracture. The soft tissues are unremarkable. Moderate to severe atherosclerosis is seen in the abdominal aorta and iliac vessels. XR/XR lumbar spine 2-3V IMPRESSION: 1. Multilevel degenerative changes without acute abnormality. 2. No hardware abnormality.
--- NOTE | ~2023-03-24 | XR_ITS ---
EXAMINATION: XR HIP, LEFT CLINICAL INFORMATION: Left hip pain. COMPARISON: None available. TECHNIQUE: Two views of the left hip. FINDINGS: Mild bilateral hip degenerative joint changes are seen. There is no acute fracture or dislocation. The bony pelvis is intact. Posterior spinal fusion hardware appears intact and the visualized portions. XR/XR hip LT w PEL1V IMPRESSION: Mild bilateral hip osteoarthritis. No acute fracture.
[2023-03-24 14:04] VITALS: BP 128/74; PULSE 88; O2SAT 95
[2023-03-24 14:06] VITALS: BP 120/56; PULSE 82; RESP 18; TEMP 36.8; O2SAT 96; BMI 32.3
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
--- NOTE | 2023-03-24 14:50 | ED.GENADULT ---
HPI - General Adult General Chief complaint: Back Pain/Injury Stated complaint: Worsening pain in back area per EMS Time Seen by Provider: 03/24/23 14:10 Source: patient, EMS, RN notes reviewed and old records reviewed Mode of arrival: EMS History of Present Illness HPI narrative: 77-year-old female with a past medical history of CAD, AFib on Eliquis, HTN, sick sinus syndrome, sleep apnea, throat CA, presenting to the ED complaining of acute on chronic left-sided low back pain radiating to left buttock/down LLE. Denies known injury/trauma or fall. Reports at baseline uses cane/walker however recently has been using wheelchair due to pain. Denies fever, chills, numbness/tingling, weakness, urinary incontinence/retention. Has been taking ibuprofen without relief Onset (ago): day(s) Related Data Home Medications Medication Instructions Recorded Confirmed simvastatin 10 mg tablet 10 mg PO BEDTIME 01/16/22 12/20/22 escitalopram oxalate 10 mg tablet 10 mg PO DAILY 03/31/22 12/20/22 gabapentin 300 mg capsule 300 mg PO BID 03/31/22 12/20/22 lorazepam 1 mg tablet 1 mg PO TID PRN Anxiety 03/31/22 12/20/22 metoprolol succinate 50 mg 50 mg PO DAILY 03/31/22 12/20/22 tablet,extended release 24 hr omeprazole 20 mg capsule,delayed 20 mg PO BID 03/31/22 12/20/22 release torsemide 20 mg tablet 20 mg PO Q OTHER DAY PRN 03/31/22 12/20/22 Previous Rx's Medication Instructions Recorded apixaban 5 mg tablet (Eliquis) 5 mg PO BID 30 days #60 tabs 10/13/20 digoxin 125 mcg (0.125 mg) tablet 0.125 mg PO DAILY 30 days #30 tabs 01/19/22 Allergies Allergy/AdvReac Type Severity Reaction Status Date / Time amiodarone Allergy Severe Difficulty Verified 12/20/22 14:28 Breathing Review of Systems Review of Systems: Constitutional: No Fever, No Chills ENT/Mouth: No Ear Pain, No Nasal Congestion, No sore throat, No Rhinorrhea, No Swallowing Difficulty Cardiovascular: No Chest Pain, No SOB Respiratory: No Cough, No Sputum, No Wheezing Gastrointestinal: No Nausea, No Vomiting, No Diarrhea, No Constipation, No Abdominal pain Genitourinary: No Dysuria, No Urinary Frequency, No Hematuria, No Urinary Incontinence/retention,No Flank Pain Musculoskeletal: + joint pain, No Myalgias, No Joint Swelling Skin: No Skin Lesions, No rash Neuro: No Weakness, No Numbness, No Paresthesias Yes all other systems are reviewed and are negative Constitutional: Constitutional: Reports as per [facility] Past Medical History Attestation statement: The following information was validated with the patient. 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 Sick sinus syndrome Sleep apnea Symptomatic bradycardia Throat cancer Surgical History Atrial fibrillation status post cardioversion Family History Family History Daughter Breast cancer Social History Social History Household Members: Children Housing: House Do you presently have visiting nurse or other home services: Yes Alcohol intake: former Patient Tobacco Use Status: Former Tobacco user Years Smoked: 41 yrs Advance Directives: Yes Advance Directives on File: Yes Advance Directives Date on File: 01/13/21 service: No Current occupational status: disabled Physical Exam ED Vital Signs: Vital Signs - 24 hr 03/24/23 14:06 Temperature 98.3 F Pulse Rate 82 Respiratory Rate 18 Blood Pressure 120/56 L Pulse Oximetry 96 Oxygen Delivery Method Room Air BMI result Body Mass Index 32.3 Const General: cooperative, healthy appearing and no acute distress Orientation/consciousness: patient oriented x3 Limitations: no limitations HENMT Head: Yes normal to inspection and Yes atraumatic Ears: hearing grossly normal bilaterally General nose exam: Normal external nose present Face and sinus: Yes normal facial exam Eyes General: appearance normal, both eyes and all related structures EOM: EOMs intact bilaterally Neck Neck: Yes normal visual inspection and Yes no meningeal signs Resp Effort & Inspection: normal respiratory effort and no respiratory distress Cardio Rate: regular rate Heart sounds: S1 normal heart sound present and S2 normal heart sound present Peripheral pulses: dorsalis pedis present GI Inspection: Yes normal to inspection Palpation (GI): Soft to palpation, nontender, no guarding and not rigid General: Yes no CVA tenderness Back/Spine/Pelvis Other: No midline cervical/thoracic/lumbar spinous tenderness/step-off or deformity. + left buttock reproducible tenderness to palpation. No erythema/ecchymosis or rash Back: no CVA tenderness Skin Rashes: no rashes Wounds: no wounds Neuro Other: Strength intact throughout. No saddle anesthesia. Sensation intact to light touch. Neurovascular intact distally General: patient oriented x3, tone normal, moves all extremities and no meningeal signs Cranial nerves: Yes CN's II-XII intact bilaterally Motor exam (neuro): 5/5 motor strength present throughout Extrem General: Yes normal to inspection Course Course Course Narrative: XR lumbar spine 2-3V IMPRESSION: 1.? Multilevel degenerative changes without acute abnormality. 2.? No hardware abnormality. ? XR hip LT w PEL1V IMPRESSION: Mild bilateral hip osteoarthritis. No acute fracture. ? -UA with RBCs and trace leuks > patient asymptomatic will wait on urine culture -Plan for PT/CM >> physician observation initiated at 1739 -1900--ED care transferred to VALERY Barnhart pending PT/CM Medications Administered Discontinued Medications Generic Name Dose Route Start Last Admin Trade Name Shubhamq PRN Reason Stop Dose Admin Acetaminophen 650 mg 03/24/23 14:58 03/24/23 15:34 Acetaminophen 325 Mg Tablet PO 03/24/23 14:59 650 mg ONCE ONE Administration Cyclobenzaprine HCl 10 mg 03/24/23 14:58 03/24/23 15:35 Cyclobenzaprine Hcl 10 Mg Tablet PO 03/24/23 14:59 10 mg ONCE ONE Administration Oxycodone HCl 5 mg 03/24/23 14:58 03/24/23 15:34 Oxycodone Hcl Immed Release 5 Mg Tablet PO 03/24/23 14:59 5 mg ONCE ONE Administration Medical Decision Making Medical Decision Making [facility] Narrative: 77-year-old female with a past medical history of CAD, AFib on Eliquis, HTN, sick sinus syndrome, sleep apnea, throat CA, presenting to the ED complaining of acute on chronic left-sided low back pain radiating to left buttock/down LLE. On exam vital signs stable, NAD, PE as above, no midline spinous ttp, no saddle anesthesia or red flag symptoms, reproducible left buttock pain. Abdomen soft/nontender. Concern for acute on chronic back pain/sciatica vs MSK pain/strain. Low suspicion for pyelo/renal stone, diverticulitis/appendicitis, cauda equina/cord compression or dissection Plan: UA, x-rays, pain control, PT/case management Please refer to course for remaining clinical decision making, interpretation of labs/imaging results, and discussions with consultants and/or family members. Differential Diagnosis Differential Diagnoses: The differential diagnosis associated with the presentation includes As above Admission/Observation Consideration of admission/observation: Escalation of care including admission/observation considered Lab Data MDM Lab Attestation statement: I reviewed the patient's lab results. Independent Interpretation I performed an independent interpretation of an: Plain X-Ray Radiology Impression Discussion of test interpretation with radiology: I have reviewed the radiologist's reading. Independent Historian Clinical information obtained from an independent historian. History obtained from or confirmed by: EMS External Record Review External record reviewed: Inpatient record, Office record, Outpatient record, Prior outpatient labs, Prior outpatient radiology, Primary care record and Outside ED record Tests considered The following testing was considered but not selected: As above Prescription Management I considered prescription management with: Pain Medication Chronic Conditions Patient?s care impacted by: Hypertension, Cancer and Other Discharge Plan Discharge Clinical Impression: Lumbar radiculopathy Patient Disposition: Still a Patient Prescriptions: No Action Eliquis 5 mg tablet 5 mg PO BID 30 Days Qty: 60 0RF Rx Instructions: Needs cardiology follow up before more refills omeprazole 20 mg capsule,delayed release(DR/EC) 20 mg PO BID simvastatin 10 mg Tablet 10 mg PO BEDTIME digoxin 125 mcg (0.125 mg) Tablet 0.125 mg PO DAILY 30 Days Qty: 30 0RF escitalopram oxalate 10 mg tablet 10 mg PO DAILY gabapentin 300 mg capsule 300 mg PO BID lorazepam 1 mg tablet 1 mg PO TID PRN (Reason: Anxiety) metoprolol succinate 50 mg tablet extended release 24 hr 50 mg PO DAILY torsemide 20 mg tablet 20 mg PO Q OTHER DAY PRN
[2023-03-24] MEDS: oxyCODONE HCl Immed Release 5 MG TABLET PO (15:34)
[2023-03-24] MEDS: Acetaminophen 325 MG TABLET 650 MG PO ×2 (15:34→21:02)
[2023-03-24] MEDS: Cyclobenzaprine HCl 10 MG TABLET PO (15:35)
--- NOTE | 2023-03-24 18:25 | PC.NURSE ---
report given to overflow
[2023-03-24 19:23] VITALS: BP 141/79; PULSE 86; RESP 20; O2SAT 96
--- NOTE | 2023-03-24 19:29 | PC.NURSE ---
Patient arrived to ED overflow ~19:10, here for acute on chronic lower back/leg pain. A&Ox4. Pt reports pain is radiating down her LLE from her left hip/buttock region. Reported as 10/10 aching pain. Medication list obtained from and reviewed with pt's daughter present at bedside; copy of list given to pharmacy for med rec. Covering Dr. Santana notified with request for med orders including pain meds. Pt VSS, offers no other complaints than aforementioned pain. Has +pp/cms. 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
--- NOTE | 2023-03-24 19:39 | MHC.EDTECH ---
patient arrived in overflow. staff placed a purewick after the nurse suggested it. patient tolerated it well. patients vitals were taken and 2 family members arrived to visit with the patient.
--- NOTE | 2023-03-24 19:49 | PHA.MEDREC ---
Pharmacy Consult ? Medication Reconciliation Pharmacy has completed the medication reconciliation. Patients daughters were at bedside and provided a list.
[2023-03-24] MEDS: LORazepam 1 MG TABLET PO (21:02)
[2023-03-24] MEDS: Apixaban 5 MG TABLET PO (21:02)
[2023-03-24] MEDS: Atorvastatin Calcium 10 MG TABLET PO (21:02)
[2023-03-24] MEDS: Melatonin 3 MG TABLET 6 MG PO (21:02)
[2023-03-24] MEDS: Gabapentin 300 MG CAPSULE PO (21:02)
[2023-03-24] MEDS: Omeprazole 20 MG CAPSULE.DR PO (21:03)
--- NOTE | 2023-03-25 04:37 | PC.NURSE ---
Assumed care 19:10 on arrival to ED overflow from main ED. Per pt she usually uses a cane or walker at baseline though lately has been using a wheelchair because of the left hip/leg pain. Pt c/o 10/10 pain with repositioning in bed, improved per pt as rated 2/10 with rest, tylenol, and gabapentin. Purewick placed on arrival 2/2 pain provocation with movement, voiding cyu without issue. Pt and family report newly diagnosed throat cancer (~ one week ago). Pt stated to this ticket writer she takes her meds whole, one or two at a time with water . Patient took required many sips and attempts swallowing to get small pills down when attempted. This ticket writer recommends meds crushed in applesauce/pudding though pt does okay with drinking thin water. Covering PA Raudel Lobato notified. Pt resting.sleeping in bed majority of shift. No distress noted. Will continue to monitor for the remainder of this ticket writer?s shift.
[2023-03-25 06:00] VITALS: BP 142/64; PULSE 77; RESP 18; TEMP 36.8; O2SAT 96
[2023-03-25] MEDS: Omeprazole 20 MG CAPSULE.DR PO ×2 (06:02→16:01)
[2023-03-25] MEDS: Metoprolol Succinate ER 50 MG TAB.ER.24H PO (07:52)
[2023-03-25] MEDS: Escitalopram Oxalate 10 MG TABLET PO (07:52)
[2023-03-25] MEDS: Gabapentin 300 MG CAPSULE PO ×2 (07:52→20:10)
[2023-03-25] MEDS: Apixaban 5 MG TABLET PO ×2 (07:52→20:09)
[2023-03-25] MEDS: Digoxin 0.125 MG TABLET PO (07:52)
[2023-03-25 07:54] VITALS: BP 131/70; PULSE 81; O2SAT 98
[2023-03-25 08:43] LABS: Appearance Urine Clear; Color Urine Yellow; Glucose Urine UA Negative (Negative); Leukocyte Esterase Urine Trace (Negative); Nitrite Urine Negative (Negative); UMIC TRIGGER UACC YES; Urine Blood Negative (Negative); Urine Ketones Negative (Negative); Urine Protein Negative (Neg-Trace)
[2023-03-25 08:45] LABS: Bacteria Urine None Seen (None Seen); Hyaline Casts Urine 0-2 /LPF (0-2); RBC Urine 0-2 /HPF (0-2); WBC Urine 0-5 /HPF (0-5)
[2023-03-25 09:56] VITALS: BP 116/62; PULSE 69; RESP 16; TEMP 36.8; O2SAT 94
[2023-03-25 12:19] VITALS: O2SAT 94
[2023-03-25] MEDS: LORazepam 1 MG TABLET PO ×2 (14:34→20:11)
--- NOTE | 2023-03-25 15:00 | MHC.CM.PN ---
EMR REVIEWED, PT W/LUMBAR RADICULOPATHY, P.T. REC'S STR, PT CURRENTLY DECLINING AND REPORTS SHE WANTS TO RETURN HOME SHE HAS APPT'S FOR FOLLOW-UP W/RETURNED THROAT CA HOWEVER PT WAS UNABLE TO EVEN SIT UP IN BED W/P.T., PT REPORTS SHE LIVES W/SON AND DTR/HCP WALDEMAR TAKES CARE OF ALL OF HER MEDICAL STUFF , PT REPORTS SHE HAS A FWW, SHOWER CHAIR AND TOILET RAISER AT HOME, PT DENIES SERVICES AND TYPICALLY WALKS W/WALKER HOWEVER WAS UNABLE TO PRIOT TO COMING TO ED. PT REPORTS SHE IS NOT CURRENTLY RECEIVING CHEMOTHERAPY OR ANY OTHER TX FOR HER THROAT CA BUT RECENTLY FOUND IT RETURNED. CM HAS REACHED OUT TO PT'S SON AND DTR WALDEMAR, MESSAGES LEFT, CM AWAITING CALL BACK.
[2023-03-25 17:04] VITALS: BP 99/63; PULSE 80; RESP 16; O2SAT 95
[2023-03-25] MEDS: Acetaminophen 325 MG TABLET 650 MG PO (18:45)
[2023-03-25] MEDS: Atorvastatin Calcium 10 MG TABLET PO (20:09)
[2023-03-25] MEDS: Melatonin 3 MG TABLET 6 MG PO (20:10)
[2023-03-25 22:59] VITALS: BP 106/69; PULSE 67; RESP 16; O2SAT 95
[2023-03-26] MEDS: Omeprazole 20 MG CAPSULE.DR PO ×2 (05:41→16:43)
[2023-03-26 06:00] VITALS: BP 110/70; PULSE 75; RESP 18; TEMP 36.7; O2SAT 95
[2023-03-26 07:20] VITALS: BP 117/60; PULSE 58; RESP 18; TEMP 36.7; O2SAT 92
[2023-03-26] MEDS: Digoxin 0.125 MG TABLET PO (08:14)
[2023-03-26] MEDS: Acetaminophen 325 MG TABLET 650 MG PO ×2 (08:14→22:34)
[2023-03-26] MEDS: Apixaban 5 MG TABLET PO ×2 (08:15→20:33)
[2023-03-26] MEDS: Escitalopram Oxalate 10 MG TABLET PO (08:15)
[2023-03-26] MEDS: Metoprolol Succinate ER 50 MG TAB.ER.24H PO (08:15)
[2023-03-26] MEDS: Gabapentin 300 MG CAPSULE PO ×2 (08:15→20:33)
--- NOTE | 2023-03-26 08:57 | MHC.EDTECH ---
patient washed, total bed linen change. new purewick placed, patient tolerated well
--- NOTE | 2023-03-26 09:08 | PC.NURSE ---
PT IS A/O NO SOB/CHELY NOTED SPEAKS IN FULL SENTENCES. PT C/O L HIP PAIN, MED WITH [facility].
[2023-03-26 14:12] VITALS: BP 98/56; PULSE 64; RESP 19; TEMP 36.3; O2SAT 96
[2023-03-26] MEDS: LORazepam 1 MG TABLET PO (16:43)
[2023-03-26 19:35] VITALS: BP 105/64; PULSE 61; RESP 16; TEMP 36.7; O2SAT 94
[2023-03-26] MEDS: Atorvastatin Calcium 10 MG TABLET PO (20:33)
[2023-03-26] MEDS: Melatonin 3 MG TABLET 6 MG PO (20:33)
[2023-03-26 23:33] VITALS: BP 115/58; PULSE 69; RESP 18; TEMP 36; O2SAT 92
[2023-03-27] MEDS: LORazepam 1 MG TABLET PO ×2 (00:51→08:28)
--- NOTE | 2023-03-27 02:33 | PC.NURSE ---
Patient given PRN ativan per request vijayer in the shift. Patient now resting on bed with eyes closed, breathing even and patient with no s/s of distress noted.
--- NOTE | 2023-03-27 03:19 | PC.NURSE ---
Assumed care of pt. Pt sleeping, no acute distress at this time. Continuing plan of care.
[2023-03-27 06:00] VITALS: BP 127/73; PULSE 58; RESP 13; TEMP 36.9; O2SAT 92
[2023-03-27] MEDS: Omeprazole 20 MG CAPSULE.DR PO (06:16)
[2023-03-27] MEDS: Acetaminophen 325 MG TABLET 650 MG PO (08:12)
[2023-03-27] MEDS: Gabapentin 300 MG CAPSULE PO (08:13)
[2023-03-27] MEDS: Apixaban 5 MG TABLET PO (08:13)
[2023-03-27] MEDS: Digoxin 0.125 MG TABLET PO (08:13)
[2023-03-27] MEDS: Escitalopram Oxalate 10 MG TABLET PO (08:14)
[2023-03-27] MEDS: Metoprolol Succinate ER 50 MG TAB.ER.24H PO (08:14)
--- NOTE | 2023-03-27 10:46 | MHC.CM.ED ---
Pt has been accepted to [facility] in [place] for STR: discussed w/pt who accepts offer: Calls placed to HCPs Lorraine (left message) and Neida informing them of pt's acceptance. Claudia [facility]EN booked for 12pm p/u. ED care team aware of plan.
[2023-03-27 12:00] VITALS: BP 105/68; PULSE 50; RESP 15; TEMP 36.6; O2SAT 93
== END 2023-03-27 12:52 ==
PROVIDERS: Physician Assistant; Emergency Provider Emergency Medicine Emergency Medical Services; PCP Internal Medicine
DX: M54.16 Radiculopathy, lumbar region (principal); Z91.81 History of falling; I11.0 Hypertensive heart disease with heart failure; I50.30 Unspecified diastolic (congestive) heart failure; I48.0 Paroxysmal atrial fibrillation; I25.10 Atherosclerotic heart disease of native coronary artery without angina pectoris
CPT/HCPCS: 72100; 73502; 81001; 97162; 99285

== ENCOUNTER 2023-04-16 08:35 | Emergency (ER) | payer MEDICARE, MEDICAID, SELFPAY ==
[2023-04-16] VITALS (9 sets, daily range): BP systolic 131–187; BP diastolic 73–106; PULSE 69–92; RESP 12–20; TEMP 36.6; O2SAT 93–100; BMI 32.2
--- NOTE | ~2023-04-16 | CT_ITS ---
EXAMINATION: CT ABDOMEN AND PELVIS WITHOUT CONTRAST CLINICAL INFORMATION: Severe low back pain. COMPARISON: None available. TECHNIQUE: Multidetector volumetric imaging was performed from the superior aspect of the liver through the pubic symphysis. Sagittal and coronal reformatted images were obtained on the technologist's workstation. This CT examination was performed using dose optimization techniques as appropriate, variously including the following: *Automated exposure control *Adjustment of mA and/or kV according to patient size (this includes techniques or standardized protocols for targeted exams where dose is matched to indication/reason for exam; i.e. extremities or head) *Use of iterative reconstruction technique DLP: 654 mGy-cm FINDINGS: LUNG BASES: There is platelike atelectasis right middle lobe. There are small pulmonary nodules in, 3 mm right lower lobe axial image 3/6, 4 mm nodule in right lower lobe measuring 4 mm axial image 5/6, 8 mm nodule axial image 4/2. There are several 3 mm nodules left lower lobe anterobasal segment image 4/6 and 1/6. There are small bilateral pleural effusions. Heart size is normal. LIVER, GALLBLADDER, AND BILIARY TREE: The liver is normal in size, shape, and attenuation. Punctate calcification is seen in the right hepatic lobe No focal hepatic lesion or biliary ductal dilatation is present. There is small radiopaque sludge and gallstones in the dependent segments. No wall thickening or pericholecystic fluid collection. PANCREAS: Unremarkable. SPLEEN: Unremarkable. ADRENAL GLANDS: Mild prominent bilateral adrenal glands are noted. KIDNEYS AND URETERS: The kidneys are normal in size, shape, and attenuation. No hydronephrosis, hydroureter, or calculi seen. There is mild bilateral perinephric stranding. BLADDER: Unremarkable. GASTROINTESTINAL TRACT: There is scattered stool, diverticuli and gas seen in the colon without significant distention. The small bowel loops are normal caliber. Appendix is not visualized. There is no free air or free fluid. ABDOMINAL WALL: A small medical hernia containing fat is noted. LYMPH NODES: No abnormal size retroperitoneal or pelvic lymph nodes seen. VASCULAR: Mild atherosclerosis without dilation. PELVIC VISCERA: No free fluid. No abnormal lymph nodes or mass.. OSSEOUS STRUCTURES: There is a disc prosthesis at L4-L5 stabilized with posterior bipedicle or screws at L4 and S1 vertebra with interconnecting rods. The hardware is intact. CT/CT abdomen pelvis wo IV con IMPRESSION: No acute intra-abdominal process seen. Colonic diverticulosis and mild constipation. Cholelithiasis and small gallstones without wall thickening. Fleischner guidelines were followed.
--- NOTE | 2023-04-16 08:45 | PC.NURSE ---
pt a&ox3. respirations even and unlabored. pt coming from [facility] reporting lower back pain that is radiating into bilateral lower extremities. pt denies injury or fall. pt able to move lower extremities but reports back pain gets worse as she moves. pt was ambulating to the bathroom when the pain in the back came on sudden. no visible redness or bruising noted on the lower back.
--- NOTE | 2023-04-16 09:09 | ED_ITS ---
HPI - General Adult General Chief complaint: Back Pain/Injury Stated complaint: bACK PAIN, RADIATING TO LEGS Time Seen by Provider: 04/16/23 08:39 Source: patient and EMS Mode of arrival: EMS Limitations: no limitations History of Present Illness HPI narrative: This is a 77-year-old female history of heart failure, AFib, hypertension, coronary artery disease, presenting to the emergency department with complaints of sudden-onset left-sided back pain with radiation to left lower extremity, patient reports she got up to go to the bathroom, after she was walking back from the bathroom she started having severe left-sided pain in her flank/lumbar region and it radiates to her left lower extremity just above the knee. Patient reports pain is severe, intermittent, stabbing. She has history of back pain however this feels different. Denies urinary/bowel incontinence/retention, fevers, chills, weakness, saddle paresthesias, nausea, vomiting, abdominal pain, headache, vision changes, dizziness, chest pain and shortness of breath. Denies falls or trauma Related Data Home Medications Medication Instructions Recorded Confirmed simvastatin 10 mg tablet 10 mg PO BEDTIME 01/16/22 03/24/23 escitalopram oxalate 10 mg tablet 10 mg PO DAILY 03/31/22 03/24/23 gabapentin 300 mg capsule 300 mg PO BID 03/31/22 03/24/23 lorazepam 1 mg tablet 1 mg PO TID PRN Anxiety 03/31/22 03/24/23 metoprolol succinate 50 mg 50 mg PO DAILY 03/31/22 03/24/23 tablet,extended release 24 hr omeprazole 20 mg capsule,delayed 20 mg PO BID 03/31/22 03/24/23 release torsemide 20 mg tablet 20 mg PO DAILY PRN weight gain 03/31/22 03/24/23 more than 3 lbs acetaminophen 325 mg tablet 650 mg PO TID PRN Pain 03/24/23 03/24/23 melatonin 3 mg tablet 6 mg PO BEDTIME 03/24/23 03/24/23 Previous Rx's Medication Instructions Recorded apixaban 5 mg tablet (Eliquis) 5 mg PO BID 30 days #60 tabs 10/13/20 digoxin 125 mcg (0.125 mg) tablet 0.125 mg PO DAILY 30 days #30 tabs 01/19/22 Allergies Allergy/AdvReac Type Severity Reaction Status Date / Time amiodarone Allergy Severe Difficulty Verified 12/20/22 14:28 Breathing Review of Systems 2 Review of Systems: Constitutional : No Weight loss, No Fever, No Chills, ENT/Mouth : No Hearing loss, No Ear Pain, No Nasal Congestion, No Sinus Pain, No Hoarseness, No sore throat, No Rhinorrhea, No Swallowing Difficulty Cardiovascular : No Chest Pain, No SOB Respiratory : No Cough, No Dyspnea Gastrointestinal : No Nausea, No Vomiting, No Diarrhea, No abdominal Pain, No Hematochezia, No Melena Genitourinary : No Dysuria, No Urinary Frequency, No Hematuria, No Urinary Incontinence, Musculoskeletal : positive back pain Skin : No Skin Lesions, No rash Neuro : No Weakness, No Numbness, No Paresthesias, no loss of bowel or bladder incontinence, no saddle anesthesia Yes all other systems are reviewed and are negative [facility] Past Medical History Attestation statement: The following information was validated with the patient. 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 Essential hypertension Throat cancer Myocardial infarct Afib HTN (hypertension) Surgical History Atrial fibrillation status post cardioversion Family History Family History Daughter Breast cancer Social History Social History Household Members: Children Housing: House Do you presently have visiting nurse or other home services: Yes Alcohol intake: current Alcohol intake frequency: holidays/special occasions only Alcohol type: beer and hard liquor Patient Tobacco Use Status: Former Tobacco user Years Smoked: 41 yrs Smoked in Last 30 Days: No Use of substances other than those prescribed or required for medical reasons: No Advance Directives: Yes Advance Directives on File: Yes Advance Directives Date on File: 01/13/21 service: No Current occupational status: disabled Physical Exam ED Vital Signs: Vital Signs - 24 hr 04/16/23 08:45 04/16/23 09:22 04/16/23 10:47 Pulse Rate 69 83 87 Respiratory Rate 18 18 20 Blood Pressure 187/106 H 148/95 H 145/82 H Pulse Oximetry 98 95 Oxygen Delivery Method Room Air Room Air Oxygen Flow Rate 04/16/23 11:05 04/16/23 13:33 04/16/23 14:46 Pulse Rate 87 92 Respiratory Rate 18 16 Blood Pressure 131/78 138/75 Pulse Oximetry 93 95 93 Oxygen Delivery Method Nasal Cannula Room Air Room Air Oxygen Flow Rate 2 BMI result Body Mass Index 32.2 HTN likely secondary to pain Appearance: Alert.? Oriented X3.? No acute distress.? Head: Normocephalic, atraumatic, no step-offs or deformities Eyes: Pupils equal, round and reactive to light.? ENT: Pharynx normal.? Neck: Normal inspection.? Neck supple.? CVS: Normal heart rate and rhythm.? Pulses normal.? Respiratory: No respiratory distress.? Breath sounds normal.? Abdomen: Soft and nontender.? Skin: Skin warm and dry.? Normal skin color.? Normal skin turgor.? Extremities: No lower extremity edema.? No calf ttp. Global weakness Back: No midline tenderness, no C-spine tenderness, full range of motion, + left-sided lumbar paraspinous tenderness to palpation Neuro: Oriented X 3.? No motor deficit.? No sensory deficit. CN 2-12 intact . No saddle paresthesia Course Reevaluation(s) Reevaluation #1: CBC appears to be within patient's baseline. Chemistry with no acute findings requiring intervention. Patient's CT abdomen pelvis no acute intra-abdominal process seen, colonic diverticulosis and mild constipation, cholelithiasis and small gallstones without wall thickening. Osseous structures with disc prosthesis at L4-L5 stabilized with posterior bipedicle or screws at L4 and S1 vertebra with interconnecting rods. The hardware is intact. Patient responding well to morphine. Patient responding well to morphine and lidoderm patch. And no signs of cord compression, cauda equina or epidural abscess. Time: 12:30 Reevaluation #2: Patient is still complaining of pain. Will give fentanyl as morphine made her slightly hypoxic and her pressure went down slightly Time: 14:22 Reevaluation #3: Patient responded well to fentanyl. Patient will likely require pain control overnight. There is no indication for MRI, no red flag symptoms. Urine pending however despite this will placed into physician observation to allow more time for pain control in for patient to be re-evaluated by physical therapy and case management. Time: 15:33 Medications Administered Discontinued Medications Generic Name Dose Route Start Last Admin Trade Name Clarita PRN Reason Stop Dose Admin Fentanyl 50 mcg 04/16/23 14:03 04/16/23 14:47 Fentanyl Citrate/Pf 100 Mcg/2 Ml Vial IVPUSH 04/16/23 14:04 50 mcg ONCE ONE Administration Protocol Hydromorphone HCl 1 mg 04/16/23 10:28 04/16/23 10:49 Hydromorphone Hcl 1 Mg/Ml Syringe IVPUSH 04/16/23 10:29 1 mg ONCE ONE Administration Protocol Lidocaine 1 patch 04/16/23 08:42 04/16/23 09:21 Lidocaine 4 % Patch Adh..Patch TRANSDERMA 04/16/23 08:43 1 patch ONCE ONE Administration Protocol Morphine Sulfate 4 mg 04/16/23 08:44 04/16/23 09:21 Morphine Sulfate 4 Mg/Ml Cartridge IVPUSH 04/16/23 08:45 4 mg ONCE ONE Administration Protocol Medical Decision Making Medical Decision Making [facility] Narrative: 0855 77-year-old female presents with left-sided back pain with radiation to left lower extremity, severe stabbing pain started this morning Physical exam with left-sided lumbar paraspinous muscle spasm/tenderness on palpation. Concerns for sciatica versus lumbar radiculopathy versus kidney stone. Unlikely metabolic derangements, cauda equina, epidural abscess. No signs of cord compression. Plan labs, imaging. Will obtain urine. Differential Diagnosis Differential Diagnoses: The differential diagnosis associated with the presentation includes Concerns for sciatica versus lumbar radiculopathy versus kidney stone. Unlikely metabolic derangements, cauda equina, epidural abscess. No signs of cord compression. Admission/Observation Consideration of admission/observation: Escalation of care including admission/observation considered Possible Lab Data [facility] Lab Attestation statement: I reviewed the patient's lab results. 04/16/23 09:11 04/16/23 09:11 Labs: Lab Results 04/16/23 Range/Units 09:11 WBC 6.9 (4.8-10.8) X10*3/uL RBC 4.39 (4.20-5.50) X10*6/uL Hgb 14.4 (12.0-16.0) g/dl Hct 43.9 (37.0-47.0) % MCV 100.0 H (80.0-98.0) fL MCH 32.8 (27.0-33.0) pg MCHC 32.8 (31.0-35.0) g/dl RDW 13.1 (11.0-16.0) % Plt Count 283 (160-400) X10*3/uL MPV 9.3 L (9.4-12.3) fL Immature Gran % (Auto) 0.6 H (0.0-0.4) % Neut % (Auto) 77.0 H (45-73) % Lymph % (Auto) 12.3 L (20-40) % [place] % (Auto) 6.4 (2-11) % Eos % (Auto) 2.8 (0-4) % Baso % (Auto) 0.9 (0-2) % Lymph # (Auto) 0.9 L (1.2-4.9) X10*3/uL [place] # (Auto) 0.4 (0.1-1.2) X10*3/uL Eos # (Auto) 0.2 (0.0-0.4) X10*3/uL Baso # (Auto) 0.1 (0.0-0.2) X10*3/uL Abs Immat Gran (auto) 0.04 H (0.00-0.03) X10*3/uL Absolute Neuts (auto) 5.3 (2.0-8.3) x10*3/uL Absolute Nucleated RBC 0.000 (0.0-0.012) X10*3/uL Nucleated RBC % (auto) 0.0 (0.0-0.2) /100WBC Sodium 140 (135-145) mmol/L Potassium 4.1 D (3.3-5.1) mmol/L Chloride 103 D (96-108) mmol/L Carbon Dioxide 29 (22-29) mmol/L Anion Gap 12 (12-20) BUN 8 L (9-16) mg/dL Creatinine 0.78 (0.5-1.4) mg/dL Estim Creat Clear Calc 70.6 Estimated GFR > 60 Random Glucose 104 (60-115) mg/dL Calcium 10.0 (8.4-10.2) mg/dL Total Bilirubin 0.7 (0.0-1.0) mg/dL AST 24 (5-31) U/L ALT 17 (0-31) U/L Alkaline Phosphatase 77 (39-117) U/L Total Protein 7.1 (6.5-8.0) g/dL Albumin 3.8 (3.5-5.0) g/dL Independent Interpretation I performed an independent interpretation of an: CT Scan Radiology Impression Discussion of test interpretation with radiology: I have reviewed the radiologist's reading. Core Measures AMI core measures followed: Yes Measure exclusions: not indicated Critical Care Time Critical Care Time Critical Care Time: No Discharge Plan Discharge Clinical Impression: Left lumbar radiculopathy Patient Disposition: Still a Patient Prescriptions: No Action Eliquis 5 mg tablet 5 mg PO BID 30 Days Qty: 60 0RF Rx Instructions: Needs cardiology follow up before more refills omeprazole 20 mg capsule,delayed release(DR/EC) 20 mg PO BID simvastatin 10 mg Tablet 10 mg PO BEDTIME digoxin 125 mcg (0.125 mg) Tablet 0.125 mg PO DAILY 30 Days Qty: 30 0RF escitalopram oxalate 10 mg tablet 10 mg PO DAILY gabapentin 300 mg capsule 300 mg PO BID lorazepam 1 mg tablet 1 mg PO TID PRN (Reason: Anxiety) acetaminophen 325 mg Tablet 650 mg PO TID PRN (Reason: Pain) melatonin 3 mg Tablet 6 mg PO BEDTIME metoprolol succinate 50 mg tablet extended release 24 hr 50 mg PO DAILY torsemide 20 mg tablet 20 mg PO DAILY PRN (Reason: weight gain more than 3 lbs)
[2023-04-16 09:15] LABS: MANUAL DIFF FLAG NO
[2023-04-16 09:16] LABS: Basophils Absolute Auto 0.1 X10*3/uL (0.0-0.2); Basophils Percent Auto 0.9 % (0-2); Eosinophils Absolute Auto 0.2 X10*3/uL (0.0-0.4); Eosinophils Percent Auto 2.8 % (0-4); Hematocrit 43.9 % (37.0-47.0); Hemoglobin 14.4 g/dl (12.0-16.0); Imm Gran Abs Auto 0.04 X10*3/uL (0.00-0.03); Imm Gran Pct Auto 0.6 % (0.0-0.4); Lymphocytes Absolute Auto 0.9 X10*3/uL (1.2-4.9); Lymphocytes Percent Auto 12.3 % (20-40); Mean Corpuscular HGB Conc 32.8 g/dl (31.0-35.0); Mean Corpuscular Hemoglobin 32.8 pg (27.0-33.0); Mean Platelet Volume 9.3 fL (9.4-12.3); Monocytes Absolute Auto 0.4 X10*3/uL (0.1-1.2); Monocytes Percent Auto 6.4 % (2-11); Neutrophils Absolute Auto 5.3 x10*3/uL (2.0-8.3); Platelet Count 283 X10*3/uL (160-400); Red Blood Count 4.39 X10*6/uL (4.20-5.50); Red Cell Distribution Width 13.1 % (11.0-16.0); White Blood Count 6.9 X10*3/uL (4.8-10.8)
[2023-04-16] MEDS: Lidocaine 4 % Patch ADH..PATCH 1 PATCH TRANSDERMA (09:21)
[2023-04-16] MEDS: Morphine Sulfate 4 MG/ML CARTRIDGE IVPUSH (09:21)
[2023-04-16 09:30] LABS: Alanine Aminotransferase 17 U/L (0-31); Albumin Level 3.8 g/dL (3.5-5.0); Alkaline Phosphatase 77 U/L (39-117); Anion Gap 12 (12-20); Aspartate Amino Transferase 24 U/L (5-31); Bilirubin Total 0.7 mg/dL (0.0-1.0); Blood Urea Nitrogen 8 mg/dL (9-16); Carbon Dioxide 29 mmol/L (22-29); Chloride 103 mmol/L (96-108); Creatinine Clr Calc Pharmacy 70.6; Estimated Glomerular Filt Rate > 60; Glucose Random 104 mg/dL (60-115); Potassium 4.1 mmol/L (3.3-5.1); Sodium 140 mmol/L (135-145); Total Protein 7.1 g/dL (6.5-8.0)
--- NOTE | 2023-04-16 10:22 | PC.NURSE ---
pt reports no improvement after the pain medications, pain still 10/10
[2023-04-16] MEDS: HYDROmorphone HCl 1 MG/ML SYRINGE IVPUSH (10:49)
--- NOTE | 2023-04-16 11:04 | PC.NURSE ---
Addendum entered by Rachel Sewell 04/16/23 11:46: sats dropped after administration of dilaudid Original Note: pt o2 sats dropped to 80% pt placed on 2L nasal cannula, currently sating at 93%.
--- NOTE | 2023-04-16 13:32 | PC.NURSE ---
pt o2 titrated off, pt maintain 98-100% on room air
[2023-04-16] MEDS: fentaNYL citrate/PF 100 MCG/2 ML VIAL 50 MCG IVPUSH (14:47)
--- NOTE | 2023-04-16 14:48 | PC.NURSE ---
pt respirations even and unlabored. pt rpeorts a 10/10 pain in lower left back. provider aware.
--- NOTE | 2023-04-16 15:00 | PC.NURSE ---
pt o2 dropped into the low 80s after receiving a dose of fentyl, pt placed on 3L nasal cannula, sating at 99%.
--- NOTE | 2023-04-16 15:30 | PC.NURSE ---
pt will sleep for a long periods of times after medications then starts to wake up and reporting pain again
--- NOTE | 2023-04-16 17:13 | PC.NURSE ---
pt titrated off o2, pt maintaining sats of 99-100%.
--- NOTE | 2023-04-16 17:32 | PHA.MEDREC ---
Pharmacy Consult ? Medication Reconciliation Pharmacy has completed the medication reconciliation. Patient had med list from [facility].
[2023-04-17 02:15] LABS: Appearance Urine Clear; Color Urine Dark Yellow; Glucose Urine UA Negative (Negative); Leukocyte Esterase Urine Small (1+) (Negative); Nitrite Urine Negative (Negative); Specific Gravity - Urine 1.015 (1.005-1.025); UMIC TRIGGER UACC YES; Urine Blood Negative (Negative); Urine Ketones Negative (Negative); Urine Protein Negative (Neg-Trace)
[2023-04-17 02:21] LABS: Bacteria Urine None Seen (None Seen); Hyaline Casts Urine 0-2 /LPF (0-2); RBC Urine 0-2 /HPF (0-2); Squamous Epithelial Cell Urine 0-2 /HPF (0-2); UACC Culture Trigger YES
[2023-04-17 02:23] VITALS: BP 150/81; PULSE 79; RESP 14; TEMP 36.6; O2SAT 95
[2023-04-17 04:34] VITALS: BP 133/63; PULSE 91; RESP 16; TEMP 37.3; O2SAT 93
[2023-04-17 06:13] VITALS: BP 174/111; PULSE 87; RESP 14; O2SAT 96
[2023-04-17 07:00] VITALS: BP 188/102; PULSE 88; RESP 13; TEMP 36.4; O2SAT 94
--- NOTE | 2023-04-17 08:56 | MHC.EDTECH ---
pt refusing covid test vital signs at this time. pt educated on the covid test requirement for placement, pt still refused stating that this tech was a liar and she does not want the test. provider and RN aware
--- NOTE | 2023-04-17 09:36 | PC.NURSE ---
pt currently refusing vital signs, morning medication, and COVID swab at this time. provider aware. will try again shortly. pt resting comfortably with the lights dimmed. call rashid placed within reach.
[2023-04-17] MEDS: Metoprolol Succinate ER 50 MG TAB.ER.24H PO (11:26)
[2023-04-17] MEDS: Apixaban 5 MG TABLET PO (11:26)
[2023-04-17] MEDS: Gabapentin 300 MG CAPSULE PO (11:26)
[2023-04-17] MEDS: Potassium Chloride ER 20 MEQ TAB.ER.PRT PO (11:26)
[2023-04-17] MEDS: Escitalopram Oxalate 10 MG TABLET PO (11:27)
[2023-04-17] MEDS: Digoxin 0.125 MG TABLET PO (11:27)
--- NOTE | 2023-04-17 12:17 | PC.NURSE ---
eye drops administered per provider order. ID band/computer not scanning. will notify IT.
--- NOTE | 2023-04-17 13:02 | MHC.EDTECH ---
pt still refusing vitals at this time
--- NOTE | 2023-04-17 13:50 | PC.NURSE ---
pt a&ox3, vss, nsr on the patient monitor. pt verbalizing no change in pain kapil. pt resting comfortably in no apparent distress. respirations even and unlabored. pt watching tv. call rashid placed w/in reach.
--- NOTE | 2023-04-17 14:00 | PC.NURSE ---
pt currently adamantly refusing medications and vital signs at this time. cart from room was filled by [employer] placed eye drops bedside next to patient. patient verbalizing that she took her eye drops and is refusing to give them to this rn so they can be administered per provider order. pt states that she placed her eye drops in her purewick so i cannot reach them. pt also stating that she will take them and administer whenever she wants and that there is nothing that this rn can do about it. pt currently being changed over by techs. eye drops nowhere to be found at this time.
--- NOTE | 2023-04-17 14:33 | PC.NURSE ---
spoke w/ case management. pt ready to transfer back to [facility] at 1530. will call [facility] to give report.
--- NOTE | 2023-04-17 14:49 | MHC.CM.ED ---
Patient remains in ER. No IV/IM pain meds needed. Patient has been at [facility] since 03/27/23. Per [facility], patient is a bed hold at their facility. Patient can return to their facility. Claudia GOODEN booked for 330pm. Med nec with chart. Patient, daughter Lorraine, Ida SANTILLAN and Cynthia RASMUSSEN aware. Continue to monitor for d/c needs.
--- NOTE | 2023-04-17 14:56 | MHC.EDTECH ---
pt cleaned and bedding changed. while this tech was attempting to organize the heart monitor wires the pt starting hitting this tech in the arm. this tech moved and removed the pts hand away and backed away from reach of the pt. pt stating that this tech 'broke her fingers'. Pt was educated that this behavior would not be tolerated but she 'does not care' and to leave her alone. this tech fixed her blankets, placed call light within reach and left the room. All witnessed by verna Escamilla. RN aware
== END 2023-04-17 16:21 | disposition skilled nursing facility (03) ==
PROVIDERS: Physician Assistant; Emergency Provider Emergency Medicine; PCP Internal Medicine
DX: M54.16 Radiculopathy, lumbar region (principal); M54.50 Low back pain, unspecified; M79.605 Pain in left leg; M79.604 Pain in right leg; R26.2 Difficulty in walking, not elsewhere classified; R10.2 Pelvic and perineal pain; I25.10 Atherosclerotic heart disease of native coronary artery without angina pectoris; I48.91 Unspecified atrial fibrillation; Z87.891 Personal history of nicotine dependence; Z79.899 Other long term (current) drug therapy
CPT/HCPCS: 36415; 74176; 80053; 81001; 85025; 87086; 96374; 96375; 97161; 99284; J1170; J2270; J3010

== ENCOUNTER 2023-06-27 14:29 | Outpatient (REF) | payer MEDICARE, MEDICAID, SELFPAY ==
[2023-06-27 15:16] LABS: MANUAL DIFF FLAG NO
[2023-06-27 15:51] LABS: Basophils Absolute Auto 0.1 X10*3/uL (0.0-0.2); Basophils Percent Auto 0.7 % (0-2); Eosinophils Absolute Auto 0.3 X10*3/uL (0.0-0.4); Eosinophils Percent Auto 2.7 % (0-4); Hematocrit 47.4 % (37.0-47.0); Hemoglobin 15.3 g/dl (12.0-16.0); Imm Gran Abs Auto 0.06 X10*3/uL (0.00-0.03); Imm Gran Pct Auto 0.6 % (0.0-0.4); Lymphocytes Absolute Auto 1.6 X10*3/uL (1.2-4.9); Lymphocytes Percent Auto 16.2 % (20-40); Mean Corpuscular HGB Conc 32.3 g/dl (31.0-35.0); Mean Corpuscular Hemoglobin 31.2 pg (27.0-33.0); Mean Corpuscular Volume 96.5 fL (80.0-98.0); Mean Platelet Volume 10.3 fL (9.4-12.3); Monocytes Absolute Auto 0.6 X10*3/uL (0.1-1.2); Monocytes Percent Auto 5.6 % (2-11); Neutrophils Absolute Auto 7.2 x10*3/uL (2.0-8.3); Neutrophils Percent Auto 74.2 % (45-73); Platelet Count 319 X10*3/uL (160-400); Red Blood Count 4.91 X10*6/uL (4.20-5.50); Red Cell Distribution Width 13.6 % (11.0-16.0); White Blood Count 9.8 X10*3/uL (4.8-10.8)
[2023-06-27 15:58] LABS: Estimated Average Glucose 114 mg/dL; Hemoglobin A1C 151.4871 umol/L; Hemoglobin A1c % 5.6 % (<6.0)
[2023-06-27 16:22] LABS: Alanine Aminotransferase 21 U/L (0-31); Albumin Level 3.8 g/dL (3.5-5.0); Alkaline Phosphatase 123 U/L (39-117); Anion Gap 14 (12-20); Aspartate Amino Transferase 28 U/L (5-31); Bilirubin Total 0.6 mg/dL (0.0-1.0); Blood Urea Nitrogen 14 mg/dL (9-16); Calcium 9.8 mg/dL (8.4-10.2); Carbon Dioxide 39 mmol/L (22-29); Chloride 89 mmol/L (96-108); Estimated Glomerular Filt Rate 58; Glucose Random 131 mg/dL (60-115); Iron 97 mcg/dL (30-160); Magnesium 1.7 mg/dL (1.6-2.6); Percent Iron Saturation 38 % (15-50); Potassium 3.5 mmol/L (3.3-5.1); Sodium 138 mmol/L (135-145); Total Iron Binding Capacity 257 mcg/dL (228-428); Total Protein 7.7 g/dL (6.5-8.0); Unsaturated Iron Binding 160 ug/dL
[2023-06-27 16:38] LABS: Thyroid Stimulating Hormone 4.03 uIU/mL (0.32-4.0)
== END 2023-06-27 14:30 | disposition home or self-care (01) ==
LOC: HO.LAB 14:29
PROVIDERS: PCP Internal Medicine; Visit Provider Internal Medicine
DX: I48.11 Longstanding persistent atrial fibrillation (principal); I50.32 Chronic diastolic (congestive) heart failure; I25.10 Atherosclerotic heart disease of native coronary artery without angina pectoris; I10 Essential (primary) hypertension; J44.9 Chronic obstructive pulmonary disease, unspecified; D64.9 Anemia, unspecified; K21.9 Gastro-esophageal reflux disease without esophagitis; R73.03 Prediabetes; Z79.899 Other long term (current) drug therapy
CPT/HCPCS: 36415; 80053; 83036; 83540; 83735; 84443; 85025; 99212

== ENCOUNTER 2023-06-27 14:29 | Outpatient (AMB) | payer MEDICARE, MEDICAID, SELFPAY ==
[2023-06-27 14:35] VITALS: BP 118/62; PULSE 75; BMI 28.6
--- NOTE | 2023-06-27 14:35 | A.OFFVIS_ITS ---
Intake Vital Signs 06/27/23 14:35 Height 5 ft 6 in Weight 177 lb 4.026 oz BMI 28.6 BP 118/62 Blood Pressure Location Lt brachial Position Sitting Pulse 75 Intake Visit Reasons: 6 month follow up Manager Talent Required: No Histotechnologist: Histotechnologist Present Accompanied by: Daughter Allergies amiodarone Allergy (Severe, Verified 12/20/22 14:28) Difficulty Breathing Medication List - Last Reconciled 06/27/23 by Wendy Roldan, MANAGER ENVIRONMENTAL AFFAIRS-[facility] acetaminophen 650 mg PO TID PRN apixaban (Eliquis) 5 mg PO BID 30 days digoxin 0.125 mg PO DAILY 30 days escitalopram oxalate 10 mg PO DAILY gabapentin 300 mg PO TID lorazepam 1 mg PO TID PRN melatonin 6 mg PO BEDTIME metoprolol succinate ER 50 mg PO DAILY omeprazole 20 mg PO BID potassium chloride ER 20 mEq PO BID simvastatin 10 mg PO BEDTIME sodium phosphates 19-7 gram/118 mL (Fleet Enema) 118 mL OR DAILY PRN torsemide 20 mg PO TUFR@0900 HPI 6 month follow up HPI Details Lucia is a 77-year-old female with past medical history of hypertension, CAD, heart failure with preserved EF, chronic atrial fibrillation who presents for follow-up. Today she reports she had recurrence of her throat cancer since her last visit here in December. She underwent surgery in [place] and is now recovered. She has some difficulties with speech and swallowing but overall feels she is doing well. She is not having any chest area discomfort. She has mild shortness of breath with activity. She admits to being mostly sedentary in recent months. She ambulates only short distances with the use of a walker. No palpitations, presyncope, syncope, PND, orthopnea or edema. Taking meds as directed. No bleeding issues reported. No known cardiac complications at the time of her surgery. 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 Essential hypertension Throat cancer Myocardial infarct Afib HTN (hypertension) Surgical History Atrial fibrillation status post cardioversion Family History Daughter Breast cancer Household Members: Children Housing: House Do you presently have visiting nurse or other home services: Yes Alcohol intake: current Alcohol intake frequency: holidays/special occasions on ly Alcohol type: beer and hard liquor Patient Tobacco Use Status: Former Tobacco user Years Smoked: 41 yrs Advance Directives Date on File: 01/13/21 service: No Current occupational status: disabled Review of Systems Const Details: ambulates slowly with walker All systems reviewed & are unremarkable except as noted in HPI and below ENT Details: speech with slurring due to mouth/ neck cancer surgery Denies dizziness Card Details: sharp stab to chest at times. Irregular heart palpitations at times Denies chest pain, Denies chest pain at rest, Denies chest pain with activity, Denies rapid heart rate, Denies pedal edema, Denies edema, Denies leg edema, Denies lightheadedness, Denies palpitations, Denies dyspnea, Reports dyspnea on exertion and Denies orthopnea Resp Denies cough, Denies dyspnea and Reports dyspnea on exertion GI Denies hematochezia and Denies change in stool character Musc Reports abnormal gait, Denies limited range of motion, Denies muscle cramps, Denies muscle weakness, Denies numbness, Denies radiating pain into limb, Denies stiffness and Denies tingling Neuro Reports abnormal gait, Denies dizziness, Denies numbness and Denies tingling Endo Denies palpitations Physical Exam Vital Signs: Last Vital Signs Pulse 75 06/27/23 14:35 BP 118/62 06/27/23 14:35 BMI result Body Mass Index 28.6 Const General: cooperative, comfortable and no acute distress Orientation/consciousness: patient oriented x3 HEENT Other: neck/ mouth surgery for cancer. asymmetry to mouth noted Neck Neck: Yes normal visual inspection Resp Effort & Inspection: normal respiratory effort Auscultation: clear to auscultation bilaterally, no rales, no rhonchi and no wheezes Cardio Jugular venous distension: no JVD Rate: regular rate Rhythm: regular rhythm Heart sounds: S1 normal heart sound present, S2 normal heart sound present, no murmurs and no rubs Skin General skin exam: no rashes or lesions noted Neuro General: patient oriented x3 Extrem General: Yes normal to inspection and No no pedal edema Psych Appearance: grossly normal Mental Status: mental status grossly normal Speech and movement: Normal speech and movement present Assessment & Plan Assessment & Plan (1) Atrial fibrillation: Code(s): I48.91 - Unspecified atrial fibrillation Qualifiers: Atrial fibrillation type: longstanding persistent Qualified Code(s): I48.11 - Longstanding persistent atrial fibrillation Plan: Chronic atrial fibrillation that is being treated with heart rate control. She is on metoprolol and digoxin. No reports of heart palpitations. Pulse is regular on examination today. Labs done on 11/11/2022 shows creatinine 0.7, digoxin level 0.7. She is on Eliquis for anticoagulation. No bleeding issues or falls reported. Continue current management. Recommend twice yearly kidney function and digoxin level. Cardiology follow-up in 6 months, sooner if needed (2) Heart failure with preserved ejection fraction: Code(s): I50.30 - Unspecified diastolic (congestive) heart failure Qualifiers: Heart failure chronicity: chronic Qualified Code(s): I50.32 - Chronic diastolic (congestive) heart failure Plan: History of heart failure with preserved EF. Last echo 01/16/22 showed EF greater than 70%, mild increase in the RV cavity size, normal RV systolic function, no regional wall motion abnormalities. She has been taking torsemide dose twice weekly. On examination she has no clinical signs of decompensated heart failure. She admits to being mostly sedentary. No med changes made. Signs and symptoms of heart failure reviewed with her. (3) CAD (coronary artery disease): Code(s): I25.10 - Atherosclerotic heart disease of [place] coronary artery without angina pectoris Qualifiers: Coronary Disease-Associated Artery/Lesion type: [place] artery [place] vs. transplanted heart: [place] heart Associated angina: without angina Qualified Code(s): I25.10 - Atherosclerotic heart disease of [place] coronary artery without angina pectoris Plan: Reported history of CAD. No reports of anginal sounding symptoms. No known cardiac issues during recent surgical procedure. Continue metoprolol and simvastatin. She is not on aspirin as she is on Eliquis. (4) HTN (hypertension): Code(s): I10 - Essential (primary) hypertension Qualifiers: Hypertension type: primary hypertension Qualified Code(s): I10 - Essential (primary) hypertension Plan: On low side today, asymptomatic. She denies any problems with dizziness, presyncope, falls. Meds reviewed and no changes. Discussed good hydration and ongoing activity as tolerated. Coding Level of Care Code Est Pt Level 3 (58633) Diagnoses Longstanding persistent atrial fibrillation I48.11 Atrial fibrillation type: longstanding persistent Chronic heart failure with preserved ejection fraction I50.32 Heart failure chronicity: chronic Coronary artery disease involving [place] coronary artery of [place] heart without angina pectoris I25.10 Coronary Disease-Associated Artery/Lesion type: [place] artery [place] vs. transplanted heart: [place] heart Associated angina: without angina Primary hypertension I10 Hypertension type: primary hypertension Time Spent (min) 24
== END 2023-06-27 15:12 | disposition home or self-care (01) ==
PROVIDERS: Visit Provider Nurse Practitioner Family
DX: I48.11 Longstanding persistent atrial fibrillation (principal); I50.32 Chronic diastolic (congestive) heart failure; I25.10 Atherosclerotic heart disease of native coronary artery without angina pectoris; I10 Essential (primary) hypertension
CPT/HCPCS: 99213

== ENCOUNTER 2023-11-20 19:26 | Inpatient (IN) | payer MEDICARE, MEDICAID, SELFPAY ==
--- NOTE | ~2023-11-20 | XR_ITS ---
EXAMINATION: PORTABLE CHEST 1 VIEW CLINICAL INFORMATION: CP. COMPARISON: 01/15/2022. TECHNIQUE: Portable frontal view of the chest was obtained. FINDINGS: The lungs are well expanded. No focal infiltrate, effusion, edema, or pneumothorax. Cardiac and mediastinal silhouettes are within normal limits for size with mild vascular calcification in the aorta. No acute bony abnormality seen. XR/XR chest 1V IMPRESSION: No evidence of acute disease.
--- NOTE | ~2023-11-20 | US_ITS ---
EXAMINATION: US ABDOMEN LIMITED CLINICAL INFORMATION: Right upper quadrant pain. Query cholecystitis. COMPARISON: CT abdomen pelvis dated 04/16/2023. TECHNIQUE: Real-time imaging of the right upper quadrant abdominal viscera. FINDINGS: PANCREAS: Normal sonographic appearance. LIVER: The liver is normal in size. The liver contour is normal. Parenchymal echogenicity is normal. No focal hepatic lesion. There is no intrahepatic biliary duct dilatation seen. GALLBLADDER: The gallbladder is physiologically distended. There are shadowing calculi within the gallbladder. No wall thickening or pericholecystic fluid. COMMON BILE DUCT: Normal in caliber measuring 0.23 cm in diameter. RIGHT KIDNEY: Normal. No hydronephrosis. No renal calculi or focal parenchymal lesions. The kidney measures 10.4 cm in maximum dimension. FREE FLUID: None. US/US abdomen limited IMPRESSION: Cholelithiasis without evidence of acute cholecystitis.
--- NOTE | ~2023-11-20 | FL_ITS ---
EXAMINATION: XR FLUOROSCOPY WITH IMAGES CLINICAL INFORMATION: Fluoroscopic guidance in OR for ERCP. COMPARISON: MRI MRCP 11/23/2023. TECHNIQUE: Fluoroscopy Supervised By: Dr. Whiting. Fluoroscopy Time: 107.9 seconds. Cumulative Dose: 39.98 mGy. DAP: Not available Images: 5. FINDINGS: Fluoroscopic guidance was provided by the referring physician, Dr. Whiting. Radiologist was not in attendance at the time of the exam. Images were later provided to the radiologists. Fluoroscopic images were obtained of intraoperative hardware for ERCP. FL/FL guidance in OR IMPRESSION: Fluoroscopy provided for intraoperative guidance. Please refer to operative report by the supervising physician for more detailed evaluation.
--- NOTE | ~2023-11-20 | MR_ITS ---
EXAMINATION: MR ABDOMEN WITHOUT CONTRAST CLINICAL INFORMATION: Choledocholithiasis COMPARISON: CT abdomen and pelvis 11/20/2023 TECHNIQUE: MR abdomen is performed without gadolinium contrast. Heavily T2 weighted MRCP sequences were also obtained. FINDINGS: LUNG BASES: Trace loculated left pleural effusion. ABDOMINAL AND PELVIC WALL: Small fat-containing umbilical hernia. LIVER AND BILIARY TREE: The common bile duct measures 9 mm which is mildly dilated for age with numerous stones compatible with choledocholithiasis. Trace intrahepatic biliary duct dilatation. Simple left hepatic lobe cyst. GALLBLADDER: Cholelithiasis without evidence of acute cholecystitis. PANCREAS: Unremarkable. SPLEEN: Unremarkable. ADRENAL GLANDS: A 1 cm right adrenal nodule with loss of signal on opposed phase imaging compatible with an intrarenal adenoma, no follow-up imaging recommended. KIDNEYS AND URETERS: Bos[place]ak 1 renal cysts no imaging follow-up recommended. Trace perinephric free fluid slightly asymmetrically left greater than right, nonspecific similar to prior, recommend correlation with urinalysis. GASTROINTESTINAL TRACT: Colonic diverticulosis without evidence of diverticulitis. VASCULAR: Unremarkable. LYMPH NODES/PERITONEUM: No lymphadenopathy. FREE FLUID: Trace perihepatic free fluid. OSSEOUS STRUCTURES: Unremarkable. MR/MR MRCP IMPRESSION: 1. The common bile duct measures 9 mm which is mildly dilated for age with numerous stones compatible with choledocholithiasis. Trace intrahepatic biliary duct dilatation. 2. Cholelithiasis without evidence of acute cholecystitis. 3. A 1 cm right adrenal nodule with loss of signal on opposed phase imaging compatible with an intrarenal adenoma, no follow-up imaging recommended. 4. Trace perinephric free fluid slightly asymmetrically left greater than right, nonspecific and similar to prior, recommend correlation with urinalysis if any clinical concern for infection. 5. Trace loculated left pleural effusion.
--- NOTE | ~2023-11-20 | CT_ITS ---
EXAMINATION: CT ABDOMEN AND PELVIS WITHOUT CONTRAST CLINICAL INFORMATION: Left lower quadrant pain. Question diverticulitis. COMPARISON: 04/16/2023 and 11/19/2020 2 TECHNIQUE: Multidetector volumetric imaging was performed from the superior aspect of the liver through the pubic symphysis. Sagittal and coronal reformatted images were obtained on the technologist's workstation. This CT examination was performed using dose optimization techniques as appropriate, variously including the following: *Automated exposure control *Adjustment of mA and/or kV according to patient size (this includes techniques or standardized protocols for targeted exams where dose is matched to indication/reason for exam; i.e. extremities or head) *Use of iterative reconstruction technique DLP: 564 mGy-cm FINDINGS: LUNG BASES: Linear pleural parenchymal scarring is present in the right middle lobe. Multiple solid noncalcified pulmonary nodules are present at the lung bases bilaterally, measuring up to 6 mm in average diameter on the right tibia and 5 mm on the left knee is not appreciably changed as compared to prior studies dating back to 2020. These are stable by time criteria. No recommend imaging follow-up. LIVER, GALLBLADDER, AND BILIARY TREE: The liver is normal in size, shape, and attenuation. A small granulomatous calcification is again seen within the right hepatic lobe. No appreciable biliary ductal dilatation.. Cholelithiasis. No gallbladder wall thickening or findings of acute cholecystitis. PANCREAS: Unremarkable. SPLEEN: Unremarkable. ADRENAL GLANDS: Unremarkable. KIDNEYS AND URETERS: The kidneys are normal in size, shape, and attenuation. No hydronephrosis, hydroureter, or calculi seen. Mild chronic bilateral perinephric stranding. BLADDER: Bladder wall thickening and trabeculation. A diverticulum is present at the right posterolateral bladder wall. GASTROINTESTINAL TRACT: Stomach, small bowel, and colon are normal in caliber. Moderate to severe colonic diverticulosis, most pronounced the descending and sigmoid colon. No acute diverticulitis is identified. The hepatic flexure is interposed between the right hemidiaphragm and the liver. No appendix is identified, though no findings of acute appendicitis are identified either. No intraperitoneal free fluid or free air ABDOMINAL WALL: No significant hernia is appreciated. LYMPH NODES: Normal. VASCULAR: Atherosclerotic calcification in the abdominal aorta and iliac arteries. No aneurysmal dilatation. PELVIC VISCERA: Uterus appears surgically absent. No adnexal lesions are identified OSSEOUS STRUCTURES: No acute fractures. Status post L4 S1 posterior interbody fusion. Mild to moderate multilevel degenerative disc disease in the thoracolumbar spine. Mild to moderate osteoarthritis. CT/CT abdomen pelvis wo IV con IMPRESSION: 1. No acute intra-abdominal or intrapelvic abnormalities are identified. 2. Bladder wall thickening and trabeculation with a small diverticulum, raising the possibility of chronic bilateral obstruction or neurogenic bladder. 3. Moderate to severe colonic diverticulosis without evidence of acute diverticulitis. 4. Cholelithiasis without evidence of acute cholecystitis. Fleischner guidelines were followed.
--- NOTE | ~2023-11-20 | XR_ITS ---
EXAMINATION: XR ABDOMEN COMPLETE CLINICAL INDICATION: Reason for Exam check position of PD stent if still present or not COMPARISON: KUB 01/21/2021 TECHNIQUE: AP view of the abdomen. FINDINGS: Lines or devices: Right upper quadrant cholecystectomy clips. L5-S1 spinal fusion with interbody disc spacer. Pancreatic duct stent is seen at the level of L3 to the right of midline overlying the expected region of the pancreatic head. Gaseous distention of multiple loops of small and large bowel in a nonobstructive bowel gas pattern. No significant stool burden. Supine technique limits evaluation for extraluminal air although no secondary findings are appreciated. Calcified phleboliths in the pelvis again seen. Atherosclerotic vascular calcification. Multilevel degenerative disc disease. Lung bases appear clear. XR/XR KUB IMPRESSION: 1. Pancreatic duct stent is seen at the level of L3 to the right of midline overlying the expected region of the pancreatic head.
[2023-11-20 19:47] VITALS: BP 95/51; PULSE 78; RESP 24; TEMP 36.5; O2SAT 97; BMI 28.1
[2023-11-20 19:48] VITALS: BP 95/46; PULSE 95; O2SAT 95
--- NOTE | 2023-11-20 19:51 | ECG_ITS ---
Test Reason : chest pain Blood Pressure : / mmHG Vent. Rate : 074 BPM Atrial Rate : 000 BPM P-R Int : 000 ms QRS Dur : 086 ms QT Int : 402 ms P-R-T Axes : 000 007 027 degrees QTc Int : 446 ms Atrial fibrillation Abnormal ECG When compared with ECG of 15-JAN-2022 20:44, QT has shortened Referred By: Generic ED Physician Electronically Signed By:COLE BRA
[2023-11-20 20:38] LABS: Basophils Percent Auto 0.2 % (0-2); Eosinophils Percent Auto 0.3 % (0-4); Hematocrit 38.1 % (37.0-47.0); Hemoglobin 12.9 g/dl (12.0-16.0); Imm Gran Abs Auto 0.05 X10*3/uL (0.00-0.03); Imm Gran Pct Auto 0.4 % (0.0-0.4); Lymphocytes Absolute Auto 0.6 X10*3/uL (1.2-4.9); Lymphocytes Percent Auto 5.1 % (20-40); MANUAL DIFF FLAG SCAN; Mean Corpuscular HGB Conc 33.9 g/dl (31.0-35.0); Mean Corpuscular Hemoglobin 31.8 pg (27.0-33.0); Mean Corpuscular Volume 93.8 fL (80.0-98.0); Mean Platelet Volume 9.5 fL (9.4-12.3); Monocytes Absolute Auto 0.5 X10*3/uL (0.1-1.2); Monocytes Percent Auto 3.8 % (2-11); Neutrophils Absolute Auto 10.9 x10*3/uL (2.0-8.3); Neutrophils Percent Auto 90.2 % (45-73); Platelet Count 251 X10*3/uL (160-400); Red Blood Count 4.06 X10*6/uL (4.20-5.50); SCAN SMEAR FLAG 1; White Blood Count 12.1 X10*3/uL (4.8-10.8)
[2023-11-20 20:45] LABS: Alanine Aminotransferase 99 U/L (0-31); Albumin Level 3.5 g/dL (3.5-5.0); Alkaline Phosphatase 98 U/L (39-117); Anion Gap 13 (12-20); Aspartate Amino Transferase 253 U/L (5-31); Bilirubin Total 1.1 mg/dL (0.0-1.0); Blood Urea Nitrogen 14 mg/dL (9-16); Calcium 8.7 mg/dL (8.4-10.2); Carbon Dioxide 31 mmol/L (22-29); Chloride 98 mmol/L (96-108); Creatinine Clr Calc Pharmacy 59.7; Estimated Glomerular Filt Rate > 60; Glucose Random 164 mg/dL (60-115); Potassium 3.8 mmol/L (3.3-5.1); Sodium 138 mmol/L (135-145); Total Protein 6.7 g/dL (6.5-8.0)
[2023-11-20 20:51] LABS: B Type Natriuretic Peptide 277 pg/mL (<100)
[2023-11-20 20:57] LABS: SLIDE REVIEW VERIFIED
[2023-11-20 21:21] LABS: Influenza A PCR NEGATIVE (Negative); Influenza B PCR NEGATIVE (Negative); Resp Syncy Virus RNA Qual PCR NEGATIVE (Negative); SARS COV2 PCR INHOUSE NEGATIVE (Negative)
--- NOTE | 2023-11-20 21:33 | ED.CHESTPAIN ---
HPI - Chest Pain General Chief Complaint: Chest Pain Stated Complaint: Upper abdominal pain x1 hour w chest and back pain Time Seen by Provider: 11/20/23 21:21 Source: patient Mode of arrival: ambulatory Limitations: no limitations History of Present Illness HPI narrative: Patient history of atrial fibrillation hypertension coronary artery disease CHF gallstones comes here for left lower abdominal pain started prior to arrival with nausea no vomit no fever no chills patient had diarrhea 2 days ago patient received fentanyl by EMS feeling much better now no history of blood in the stool no history of constipation no history of diverticulitis Related Data Home Medications ?Medication ?Instructions ?Recorded ?Confirmed simvastatin 10 mg tablet 10 mg PO BEDTIME 01/16/22 06/27/23 escitalopram oxalate 10 mg tablet 10 mg PO DAILY 03/31/22 06/27/23 gabapentin 300 mg capsule 300 mg PO TID 03/31/22 06/27/23 lorazepam 1 mg tablet 1 mg PO TID PRN Anxiety 03/31/22 06/27/23 metoprolol succinate 50 mg 50 mg PO DAILY 03/31/22 06/27/23 tablet,extended release 24 hr omeprazole 20 mg capsule,delayed 20 mg PO BID 03/31/22 06/27/23 release torsemide 20 mg tablet 20 mg PO TUFR@0900 03/31/22 06/27/23 acetaminophen 325 mg tablet 650 mg PO TID PRN Pain 03/24/23 06/27/23 melatonin 3 mg tablet 6 mg PO BEDTIME 03/24/23 06/27/23 potassium chloride 20 mEq 20 meq PO BID 04/16/23 06/27/23 tablet,extended release sodium phosphates 19 gram-7 118 ml ID DAILY PRN Constipation 04/16/23 06/27/23 gram/118 mL enema (Fleet Enema) Previous Rx's ?Medication ?Instructions ?Recorded apixaban 5 mg tablet (Eliquis) 5 mg PO BID 30 days #60 tabs 10/13/20 digoxin 125 mcg (0.125 mg) tablet 0.125 mg PO DAILY 30 days #30 tabs 01/19/22 Allergies Allergy/AdvReac Type Severity Reaction Status Date / Time amiodarone Allergy Severe Difficulty Verified 11/20/23 19:51 Breathing Review of Systems Review of Systems: Yes all other systems are reviewed and are negative [facility] Past Medical History Medical History Fall Atrial fibrillation Acalculous cholecystitis Bacteriuria Obesity CAD (coronary artery disease) Acute hypercapnic respiratory failure due to obstructive sleep apnea Sick sinus syndrome Symptomatic bradycardia Sleep apnea PAF (paroxysmal atrial fibrillation) Heart failure with preserved ejection fraction CHF (congestive heart failure) 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 Essential hypertension Throat cancer Myocardial infarct Afib HTN (hypertension) Surgical History Atrial fibrillation status post cardioversion Family History Family History Daughter Breast cancer Social History Social History Household Members: Children Housing: House Do you presently have visiting nurse or other home services: Yes Alcohol intake: never Comment: restraints Patient Tobacco Use Status: Former Tobacco user Years Smoked: 41 yrs Advance Directives: Yes Advance Directives on File: Yes Advance Directives Date on File: 01/13/21 service: No Current occupational status: disabled Physical Exam Vital Signs: Vital Signs: Last Vital Signs Temp 98.2 F 11/21/23 05:36 Pulse 109 H 11/21/23 07:05 Resp 13 11/21/23 07:05 BP 107/72 11/21/23 07:05 Pulse Ox 96 11/21/23 07:05 O2 Del Method Room Air 11/21/23 07:05 BMI result Body Mass Index 28.1 Appearance: Alert. Oriented X3. No acute distress. Eyes: No pallor or icterus ENT: Pharynx normal. Oral Mucosa moist Neck: Irregularly irregular heart rate, Pulses normal. Respiratory: No respiratory distress. Equal air entry bilateral, no wheezing/rales/rhonchi Abdomen: Soft and deep tenderness left lower quadrant and right upper quadrant no guarding or rebound tenderness. Bowel sounds are present, no mass palpable, no CVA tenderness Skin: Skin warm and dry. Normal skin color. Normal skin turgor. Extremities: No lower extremity edema. No calf tenderness Neuro: Oriented X 3. No motor deficit. Medications Administered Discontinued Medications Generic Name Dose Route Start Last Admin Trade Name Freq PRN Reason Stop Dose Admin Digoxin 0.25 mg 11/21/23 05:05 11/21/23 05:34 Digoxin 0.5 Mg/2 Ml Ampul IVPUSH 11/21/23 05:06 0.25 mg ONCE ONE Administration Ceftriaxone Sodium 1 gm/ 50 mls @ 100 mls/hr 11/21/23 02:46 11/21/23 04:36 Sodium Chloride IV 11/21/23 03:15 Infused ONCE ONE Infusion Sodium Chloride 1,000 mls @ 999 mls/hr 11/21/23 04:25 11/21/23 05:37 Ns IV 11/21/23 05:25 Infused .Q1H1M ONE Infusion Metoprolol Tartrate 5 mg 11/21/23 00:56 11/21/23 01:01 Metoprolol Tartrate 5 Mg/5 Ml Vial IVPUSH 11/21/23 00:57 5 mg ONCE ONE Administration Medical Decision Making Medical Decision Making [facility] Narrative: Patient with lower abdominal pain CT scan negative for diverticulitis gallstones but no cholecystitis patient feeling much better at this time likely been biliary colic/bowel spasm. Awaiting for the UA 1 am Patient noted to be in AFib with RVR of 129 beats per minute will give IV Lopressor Patient continued to be in AFib with heart rate fluctuating with no 110-120 is on digoxin and Lopressor . Her digoxin level is low will give IV 0.25 of digoxin continue to watch admit for UTI AFib with RVR Differential Diagnosis Differential Diagnoses: The differential diagnosis associated with the presentation includes Cholelithiasis/cholecystitis/diverticulitis/UTI/kidney/AFib Lab Data [facility] Lab Attestation statement: I reviewed the patient's lab results. 11/20/23 20:24 11/20/23 20:24 Labs: Lab Results 11/20/23 11/21/23 11/21/23 Range/Units 20:24 02:18 03:26 WBC 12.1 H (4.8-10.8) X10*3/uL RBC 4.06 L (4.20-5.50) X10*6/uL Hgb 12.9 (12.0-16.0) g/dl Hct 38.1 (37.0-47.0) % MCV 93.8 (80.0-98.0) fL MCH 31.8 (27.0-33.0) pg MCHC 33.9 (31.0-35.0) g/dl RDW 14.0 (11.0-16.0) % Plt Count 251 (160-400) X10*3/uL MPV 9.5 (9.4-12.3) fL Immature Gran % (Auto) 0.4 (0.0-0.4) % Neut % (Auto) 90.2 H (45-73) % Lymph % (Auto) 5.1 L (20-40) % [place] % (Auto) 3.8 (2-11) % Eos % (Auto) 0.3 (0-4) % Baso % (Auto) 0.2 (0-2) % Lymph # (Auto) 0.6 L (1.2-4.9) X10*3/uL [place] # (Auto) 0.5 (0.1-1.2) X10*3/uL Eos # (Auto) 0.0 (0.0-0.4) X10*3/uL Baso # (Auto) 0.0 (0.0-0.2) X10*3/uL Abs Immat Gran (auto) 0.05 H (0.00-0.03) X10*3/uL Absolute Neuts (auto) 10.9 H (2.0-8.3) x10*3/uL Absolute Nucleated RBC 0.000 (0.0-0.012) X10*3/uL Nucleated RBC % (auto) 0.0 (0.0-0.2) /100WBC Smear Tech's Comments VERIFIED Sodium 138 (135-145) mmol/L Potassium 3.8 (3.3-5.1) mmol/L Chloride 98 (96-108) mmol/L Carbon Dioxide 31 H (22-29) mmol/L Anion Gap 13 (12-20) BUN 14 (9-16) mg/dL Creatinine 0.85 (0.5-1.4) mg/dL Estim Creat Clear Calc 59.7 Estimated GFR > 60 Random Glucose 164 H (60-115) mg/dL Lactic Acid 1.6 (0.5-2.0) mmol/L Calcium 8.7 D (8.4-10.2) mg/dL Magnesium 2.0 (1.6-2.6) mg/dL Total Bilirubin 1.1 H (0.0-1.0) mg/dL AST 253 H (5-31) U/L ALT 99 H (0-31) U/L Alkaline Phosphatase 98 (39-117) U/L Troponin I High Sens 8.0 (<3.5-17.0) ng/L B-Natriuretic Peptide 277 H (<100) pg/mL Total Protein 6.7 (6.5-8.0) g/dL Albumin 3.5 (3.5-5.0) g/dL Lipase 56 (8-78) U/L Urine Color Dark Yellow Urine Appearance Cloudy Urine pH 5.5 (5.0-9.0) Ur Specific [place] 1.015 (1.005-1.025) Urine Protein Negative (Neg-Trace) mg/dL Urine Glucose (UA) Negative (Negative) mg/dL Urine Ketones Negative (Negative) mg/dL Urine Blood Negative (Negative) Urine Nitrite Negative (Negative) Ur Leukocyte Esterase Moderate (2+) H (Negative) Urine RBC 0-2 (0-2) /HPF Urine WBC >50 H (0-5) /HPF Ur Squamous Epith Cells 11-20 (0-2) /HPF Urine Bacteria 4+ (None Seen) Hyaline Casts 3-5 (0-2) /LPF Digoxin (0.8-2.0) ng/mL Influenza Type A (PCR) NEGATIVE (Negative) Influenza Type B (PCR) NEGATIVE (Negative) RSV RNA Qual (PCR) NEGATIVE (Negative) SARS-CoV-2 RNA (RT-PCR) NEGATIVE (Negative) 11/21/23 Range/Units 04:40 WBC (4.8-10.8) X10*3/uL RBC (4.20-5.50) X10*6/uL Hgb (12.0-16.0) g/dl Hct (37.0-47.0) % MCV (80.0-98.0) fL MCH (27.0-33.0) pg MCHC (31.0-35.0) g/dl RDW (11.0-16.0) % Plt Count (160-400) X10*3/uL MPV (9.4-12.3) fL Immature Gran % (Auto) (0.0-0.4) % Neut % (Auto) (45-73) % Lymph % (Auto) (20-40) % [place] % (Auto) (2-11) % Eos % (Auto) (0-4) % Baso % (Auto) (0-2) % Lymph # (Auto) (1.2-4.9) X10*3/uL [place] # (Auto) (0.1-1.2) X10*3/uL Eos # (Auto) (0.0-0.4) X10*3/uL Baso # (Auto) (0.0-0.2) X10*3/uL Abs Immat Gran (auto) (0.00-0.03) X10*3/uL Absolute Neuts (auto) (2.0-8.3) x10*3/uL Absolute Nucleated RBC (0.0-0.012) X10*3/uL Nucleated RBC % (auto) (0.0-0.2) /100WBC Smear Tech's Comments Sodium (135-145) mmol/L Potassium (3.3-5.1) mmol/L Chloride (96-108) mmol/L Carbon Dioxide (22-29) mmol/L Anion Gap (12-20) BUN (9-16) mg/dL Creatinine (0.5-1.4) mg/dL Estim Creat Clear Calc Estimated GFR Random Glucose (60-115) mg/dL Lactic Acid (0.5-2.0) mmol/L Calcium (8.4-10.2) mg/dL Magnesium (1.6-2.6) mg/dL Total Bilirubin (0.0-1.0) mg/dL AST (5-31) U/L ALT (0-31) U/L Alkaline Phosphatase (39-117) U/L Troponin I High Sens (<3.5-17.0) ng/L B-Natriuretic Peptide (<100) pg/mL Total Protein (6.5-8.0) g/dL Albumin (3.5-5.0) g/dL Lipase (8-78) U/L Urine Color Urine Appearance Urine pH (5.0-9.0) Ur Specific [place] (1.005-1.025) Urine Protein (Neg-Trace) mg/dL Urine Glucose (UA) (Negative) mg/dL Urine Ketones (Negative) mg/dL Urine Blood (Negative) Urine Nitrite (Negative) Ur Leukocyte Esterase (Negative) Urine RBC (0-2) /HPF Urine WBC (0-5) /HPF Ur Squamous Epith Cells (0-2) /HPF Urine Bacteria (None Seen) Hyaline Casts (0-2) /LPF Digoxin 0.6 L (0.8-2.0) ng/mL Influenza Type A (PCR) (Negative) Influenza Type B (PCR) (Negative) RSV RNA Qual (PCR) (Negative) SARS-CoV-2 RNA (RT-PCR) (Negative) Independent Interpretation I performed an independent interpretation of an: EKG, Ultrasound and CT Scan Interpretation: Atrial fibrillation ventricular rate 74 beats per minute normal interval normal axis no acute ST elevation no acute ischemia Radiology Impression Discussion of test interpretation with radiology: I have reviewed the radiologist's reading. Critical Care Time Critical Care Time Critical Care Time: Yes Total Critical Care Time: 45 Attestation: The patient was critically ill with a high probability of imminent or life threatening deterioration. I spent greater than ?50??minutes of discontinuous time evaluating the patient,delivering critical care at the bedside, discussing and evaluating pertinent data with consultants. Critical care time does not include time spent performing separately billable procedures or teaching. Total time spent performing critical care was 45???minutes. Discharge Plan Discharge Clinical Impression: Atrial fibrillation with rapid ventricular response, Acute UTI, Gallstone Patient Disposition: Admitted As Inpatient Print Language: Vietnamese
[2023-11-20 21:54] VITALS: PULSE 72
[2023-11-20 21:57] LABS: Lipase 56 U/L (8-78)
[2023-11-20 22:00] VITALS: BP 105/52; PULSE 70; RESP 12; TEMP 36.9; O2SAT 98
[2023-11-21] VITALS (9 sets, daily range): BP systolic 94–169; BP diastolic 52–92; PULSE 73–144; RESP 12–18; TEMP 36.8–37.6; O2SAT 96–98
--- NOTE | 2023-11-21 | ECG_ITS ---
Test Reason : chest pain Blood Pressure : / mmHG Vent. Rate : 107 BPM Atrial Rate : 000 BPM P-R Int : 000 ms QRS Dur : 090 ms QT Int : 348 ms P-R-T Axes : 000 002 -03 degrees QTc Int : 464 ms Atrial fibrillation with rapid ventricular response Nonspecific T wave abnormality Abnormal ECG When compared with ECG of 21-NOV-2023 00:51, ventricular rate is slower Referred By: [place] Chatman Electronically Signed By:COLE BAR
--- NOTE | 2023-11-21 | ECG_ITS ---
Test Reason : tachycardia Blood Pressure : / mmHG Vent. Rate : 129 BPM Atrial Rate : 000 BPM P-R Int : 000 ms QRS Dur : 058 ms QT Int : 226 ms P-R-T Axes : 000 -13 269 degrees QTc Int : 331 ms Artifact in tracing Atrial fibrillation with rapid ventricular response Abnormal ECG When compared with ECG of 20-NOV-2023 20:27, Vent. rate has increased BY 55 BPM Referred By: Michael Jones Electronically Signed By:COLE BAR
[2023-11-21] MEDS: Metoprolol Tartrate 5 MG/5 ML VIAL IVPUSH (01:01)
[2023-11-21 02:26] LABS: Appearance Urine Cloudy; Color Urine Dark Yellow; Glucose Urine UA Negative (Negative); Leukocyte Esterase Urine Moderate (2+) (Negative); Nitrite Urine Negative (Negative); PH 5.5 (5.0-9.0); Specific Gravity - Urine 1.015 (1.005-1.025); UMIC TRIGGER UACC YES; Urine Blood Negative (Negative); Urine Ketones Negative (Negative); Urine Protein Negative (Neg-Trace)
[2023-11-21 02:28] LABS: Bacteria Urine 4+ (None Seen); RBC Urine 0-2 /HPF (0-2); UACC Culture Trigger YES; WBC Urine >50 /HPF (0-5)
[2023-11-21 03:44] LABS: Lactic Acid 1.6 mmol/L (0.5-2.0)
[2023-11-21] MEDS: cefTRIAXone sodium 1 GM in 0.9 % Sodium Chloride 50 ML IV ×2 (03:56→22:24)
[2023-11-21] MEDS: 0.9 % Sodium Chloride 1,000 ML 999 ML IV (04:36)
[2023-11-21 04:59] LABS: Digoxin 0.6 ng/mL (0.8-2.0)
[2023-11-21] MEDS: Digoxin 0.5 MG/2 ML AMPUL 0.25 MG IVPUSH (05:34)
--- NOTE | 2023-11-21 08:29 | PC.NURSE ---
spoke w daughter, updated on plan of care - recheck EKG/troponin , pending admission.
--- NOTE | 2023-11-21 08:44 | PC.NURSE ---
assumed care of pt at 0700, pt resting quietly, requesting home medications - provider aware, repeat labs drawn, tech at bedside for repeat EKG - HR 95-122, pt reporting decrease in cp to 5/10. admitting provider at bedside.
--- NOTE | 2023-11-21 10:29 | P.CONCA_ITS ---
History of Present Illness History of Present Illness Date of Service: 11/21/23 Chief complaint: chest pain Afib Narrative: Requested by Dr. Chatman to see for abdominal pain. There is no admission documentation as yet. Essentially patient is here for some abdominal pain and diarrhea per ER note. In this context, she was also found to be in atrial fibrillation with rapid rates. Then it seems that she was admitted with a diagnosis of possibly UTI with atrial fibrillation/rapid rates. Per Dr. Chatman, she had also complained of some chest pain and hence he asked us to see patient. Patient has extremely vague description of pain all over the left side of the chest as well as the abdomen from top to bottom. Some pleuritic components as she states he did get worse with breathing at some point but then it is resolved at this time. She she states that she also had some shortness of breath initially but then that is also resolved at this time. According to her, she is now quite comfortable. Review of Systems 2 Review of Systems: Yes all other systems are reviewed and are negative Constitutional: Constitutional: Reports as per HPI and Reports no additional constitutional complaints Eyes: Eyes: Reports as per HPI and Denies no additional eye complaints ENT: Denies system reviewed and no additional complaints, except as documented and Reports as per HPI Cardiovascular: Cardiovascular: Reports as per HPI, Reports no additional cardiovascular complaints, Denies acrocyanosis, Denies cool extremities, Reports chest pain, Denies leg edema, Denies lightheadedness, Denies palpitations and Denies dyspnea Respiratory: Respiratory: Reports as per HPI, Denies no additional respiratory complaints and Denies dyspnea Gastrointestinal: Gastrointestinal: Reports as per HPI, Denies no additional gastrointestinal complaints and Reports abdominal pain Genitourinary: Genitourinary: Reports as per HPI Musculoskeletal: Musculoskeletal: Reports no additional musculoskeletal complaints and Reports as per HPI Integumentary/Breasts: Skin/Breast: Reports system reviewed and no additional complaints, except as docu Neurologic: Reports system reviewed and no additional complaints, except as documented and Reports as per HPI Psychiatric: Psychiatric: Reports no additional psychiatric complaints and Reports as per HPI Endocrine: Endocrine: Reports no additional endocrine complaints, Reports as per HPI and Denies palpitations Hematologic/Lymphatic: Hematologic/Lymphatic: Reports no additional hematologic/lymphatic complaints and Reports as per HPI Allergic/Immunologic: Allergic/Immunologic: Reports no additional allergic/immunologic complaints and Reports as per HPI [facility] Past Medical History Medical History Fall Atrial fibrillation Acalculous cholecystitis Bacteriuria Obesity CAD (coronary artery disease) Acute hypercapnic respiratory failure due to obstructive sleep apnea Sick sinus syndrome Symptomatic bradycardia Sleep apnea PAF (paroxysmal atrial fibrillation) Heart failure with preserved ejection fraction CHF (congestive heart failure) 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 Essential hypertension Throat cancer Myocardial infarct Afib HTN (hypertension) Family History Family History Daughter Breast cancer Surgical History Surgical History Atrial fibrillation status post cardioversion Social History Social History Household Members: Children Housing: House Do you presently have visiting nurse or other home services: Yes Alcohol intake: never Comment: restraints Patient Tobacco Use Status: Former Tobacco user Years Smoked: 41 yrs Advance Directives: Yes Advance Directives on File: Yes Advance Directives Date on File: 01/13/21 service: No Current occupational status: disabled Meds Allergies Allergy/AdvReac Type Severity Reaction Status Date / Time amiodarone Allergy Severe Difficulty Verified 11/20/23 19:51 Breathing Active Medications: Current Medications Sodium Chloride (0.9 % Sodium Chloride Flush 3 Ml Syringe) [facility] Home Medications ?Medication ?Instructions ?Recorded ?Confirmed ?Last Taken ?Type simvastatin 10 mg tablet 10 mg PO BEDTIME 01/16/22 06/27/23 04/14/23 History escitalopram oxalate 10 mg tablet 10 mg PO DAILY 03/31/22 06/27/23 04/14/23 History gabapentin 300 mg capsule 300 mg PO TID 03/31/22 06/27/23 04/14/23 History lorazepam 1 mg tablet 1 mg PO TID PRN Anxiety 03/31/22 06/27/23 Unknown History metoprolol succinate 50 mg 50 mg PO DAILY 03/31/22 06/27/23 04/14/23 History tablet,extended release 24 hr omeprazole 20 mg capsule,delayed 20 mg PO BID 03/31/22 06/27/23 04/14/23 History release torsemide 20 mg tablet 20 mg PO TUFR@0900 08/25/22 11/21/23 Unknown History acetaminophen 325 mg tablet 650 mg PO TID PRN Pain 03/24/23 06/27/23 Unknown History melatonin 3 mg tablet 6 mg PO BEDTIME 03/24/23 06/27/23 04/14/23 History potassium chloride 20 mEq 20 meq PO BID 04/16/23 06/27/23 04/14/23 History tablet,extended release sodium phosphates 19 gram-7 118 ml OR DAILY PRN Constipation 04/16/23 06/27/23 Unknown History gram/118 mL enema (Fleet Enema) Physical Exam 2 Vital Signs: Vital Signs: Last Vital Signs Temp 99.6 F 11/21/23 07:05 Pulse 85 11/21/23 08:43 Resp 18 11/21/23 08:43 BP 103/58 L 11/21/23 08:43 Pulse Ox 97 11/21/23 08:43 O2 Del Method Room Air 11/21/23 08:43 BMI result Body Mass Index 28.1 Const: General: comfortable and no acute distress O rientation/consciousness: patient oriented x3 HEENT: Other: Unremarkable Head: Yes normal to inspection Neck: Neck: Yes normal visual inspection Chest: Chest palpation & inspection: normal inspection of the chest Resp: Auscultation: clear to auscultation bilaterally Cardio: Palpation: normal PMI Heart sounds: S1 normal heart sound present, S2 normal heart sound present, no gallops, no murmurs and no rubs GI: Palpation (GI): Soft to palpation Back/Spine/Pelvis: Other: unremarkable Skin: General skin exam: no rashes or lesions noted Neuro: General: patient oriented x3 Extrem: General: Yes normal to inspection Psych: Mental Status: mental status grossly normal Objective Labs and Meds 11/20/23 20:24 11/20/23 20:24 Lab results: Laboratory Results - last 24 hr 11/20/23 11/21/23 11/21/23 20:24 02:18 03:26 WBC 12.1 H RBC 4.06 L Hgb 12.9 Hct 38.1 MCV 93.8 MCH 31.8 MCHC 33.9 RDW 14.0 Plt Count 251 MPV 9.5 Immature Gran % (Auto) 0.4 Neut % (Auto) 90.2 H Lymph % (Auto) 5.1 L [place] % (Auto) 3.8 Eos % (Auto) 0.3 Baso % (Auto) 0.2 Lymph # (Auto) 0.6 L [place] # (Auto) 0.5 Eos # (Auto) 0.0 Baso # (Auto) 0.0 Abs Immat Gran (auto) 0.05 H Absolute Neuts (auto) 10.9 H Absolute Nucleated RBC 0.000 Nucleated RBC % (auto) 0.0 Smear Tech's Comments VERIFIED Sodium 138 Potassium 3.8 Chloride 98 Carbon Dioxide 31 H Anion Gap 13 BUN 14 Creatinine 0.85 Estim Creat Clear Calc 59.7 Estimated GFR > 60 Random Glucose 164 H Lactic Acid 1.6 Calcium 8.7 D Magnesium 2.0 Total Bilirubin 1.1 H AST 253 H ALT 99 H Alkaline Phosphatase 98 Troponin I High Sens 8.0 B-Natriuretic Peptide 277 H Total Protein 6.7 Albumin 3.5 Lipase 56 Urine Color Dark Yellow Urine Appearance Cloudy Urine pH 5.5 Ur Specific [place] 1.015 Urine Protein Negative Urine Glucose (UA) Negative Urine Ketones Negative Urine Blood Negative Urine Nitrite Negative Ur Leukocyte Esterase Moderate (2+) H Urine RBC 0-2 Urine WBC >50 H Ur Squamous Epith Cells 11-20 Urine Bacteria 4+ Hyaline Casts 3-5 Digoxin Influenza Type A (PCR) NEGATIVE Influenza Type B (PCR) NEGATIVE RSV RNA Qual (PCR) NEGATIVE SARS-CoV-2 RNA (RT-PCR) NEGATIVE 11/21/23 11/21/23 04:40 08:41 WBC RBC Hgb Hct MCV MCH MCHC RDW Plt Count MPV Immature Gran % (Auto) Neut % (Auto) Lymph % (Auto) [place] % (Auto) Eos % (Auto) Baso % (Auto) Lymph # (Auto) [place] # (Auto) Eos # (Auto) Baso # (Auto) Abs Immat Gran (auto) Absolute Neuts (auto) Absolute Nucleated RBC Nucleated RBC % (auto) Smear Tech's Comments Sodium Potassium Chloride Carbon Dioxide Anion Gap BUN Creatinine Estim Creat Clear Calc Estimated GFR Random Glucose Lactic Acid Calcium Magnesium Total Bilirubin AST ALT Alkaline Phosphatase Troponin I High Sens 15.0 D B-Natriuretic Peptide Total Protein Albumin Lipase Urine Color Urine Appearance Urine pH Ur Specific [place] Urine Protein Urine Glucose (UA) Urine Ketones Urine Blood Urine Nitrite Ur Leukocyte Esterase Urine RBC Urine WBC Ur Squamous Epith Cells Urine Bacteria Hyaline Casts Digoxin 0.6 L Influenza Type A (PCR) Influenza Type B (PCR) RSV RNA Qual (PCR) SARS-CoV-2 RNA (RT-PCR) ECG Interpretation: EKG with atrial fibrillation at a rate of 74/Min. Another EKG with rate of 129/Min. Most recent study with a rate of 107/Min. Imaging Radiologist's impression: Impressions Chest X-Ray 11/20/23 20:20 IMPRESSION: No evidence of acute disease. Abdomen Ultrasound 11/20/23 22:00 IMPRESSION: Cholelithiasis without evidence of acute cholecystitis. Abdomen/Pelvis CT 11/20/23 22:50 IMPRESSION: 1. No acute intra-abdominal or intrapelvic abnormalities are identified. 2. Bladder wall thickening and trabeculation with a small diverticulum, raising the possibility of chronic bilateral obstruction or neurogenic bladder. 3. Moderate to severe colonic diverticulosis without evidence of acute diverticulitis. 4. Cholelithiasis without evidence of acute cholecystitis. Fleischner guidelines were followed. Assessment and Plan (1) Precordial chest pain: Status: Acute Sounds very atypical for angina. She is essentially describing pain on the entire left side of the body including chest and abdomen. Currently resolved. Doubt ischemic etiology. Troponin levels are 8 and 15, and not truly concerning. Last stress test in our system is from 2016 which was unremarkable. (2) Persistent atrial fibrillation: Status: Acute Initially had rapid rates but now seems better. Listed to be on a combination of metoprolol, digoxin, Eliquis. No changes. By prior documentation, she has been on flecainide, amiodarone extra. She also has a history of cardiac arrest the setting of atrial fibrillation with slow rate from a primary respiratory event. Hence no further changes at this time. Plan Total time spent including review of chart including prior admissions, counseling, documentation, coordination of care-60 minutes. Procedures Date of Service Date of Service: 11/21/23
--- NOTE | 2023-11-21 13:29 | PHA.MEDREC ---
Pharmacy Consult ? Medication Reconciliation Pharmacy has completed the medication reconciliation. Spoke to patient and daughter at bedside to confirm medication list. Patient has been taking torsemide 20 mg qd recently per daughter.
--- NOTE | 2023-11-21 14:22 | P.HPHOSP_ITS ---
History of Present Illness Date of Service: 11/21/23 Attending physician on admission: [place] Chatman Chief Complaint: chest pain/abd pain 78 y/o M history of hypertension, hyperlipidemia, CAD, CHF, AFib on Eliquis, history of head and neck cancer, sick sinus syndrome, history of bradycardia, CONRADO: Patient came to the hospital because left flank abdominal pain and also some chest tightness-she has a poor historian, she says that she has on and off some abdominal discomfort but this pain is little bit different . She says stabbing type pain, going from left flank to upper left chest area, nonpositional or pleuritic, has some reproducible component. She tried at home some exercises as well as lorazepam she said it did not help with the pain. In ED patient was found to have AFib with RVR in 129hr , also UA was done question of UTI: Patient was given digoxin and Lopressor and also requested admission for AFib with RVR and UTI. Denies any nausea vomiting or diarrhea or weakness or numbness or fever or recent travel or sick contacts. Patient is poor historian and unable to tell if any urinary complaints Lab imaging , EKG reviewed: Okay so WBC 12.1 BMP: Seems fine, LFT elevated Lactic acid normal, troponin x2 normal and flat EKG: AFib with ventricular rate of 107 Review of Systems 2 Review of Systems: As above. 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 Essential hypertension Throat cancer Myocardial infarct Afib HTN (hypertension) Family History Daughter Breast cancer Surgical History Atrial fibrillation status post cardioversion Social History Household Members: Children Housing: House Do you presently have visiting nurse or other home services: Yes Alcohol intake: never Comment: restraints Patient Tobacco Use Status: Former Tobacco user Years Smoked: 41 yrs Advance Directives: Yes Advance Directives on File: Yes Advance Directives Date on File: 01/13/21 Nutrition Risks: Difficulty chewing service: No Current occupational status: disabled Meds Allergies Allergy/AdvReac Type Severity Reaction Status Date / Time amiodarone Allergy Severe Difficulty Verified 11/20/23 19:51 Breathing Active Medications: Current Medications Apixaban (Apixaban 5 Mg Tablet) 5 mg PO BID DEE Digoxin (Digoxin 0.125 Mg Tablet) 0.125 mg PO DAILY DEE Melatonin (Melatonin 3 Mg Tablet) 6 mg PO BEDTIME PRN PRN Reason: Sleep Metoprolol Tartrate (Metoprolol Tartrate 25 Mg Tablet) 25 mg PO BID DEE; Protocol Non-Formulary Medication (Diphenhydramine-Acetaminophen [Acetaminophen Pm]) 1 tab PO BEDTIME PRN PRN Reason: Pain Non-Formulary Medication (Simvastatin) 10 mg PO BEDTIME DEE Sodium Chloride (0.9 % Sodium Chloride Flush 3 Ml Syringe) 3 ml IVFLUSH QSHIFT DEE Torsemide (Torsemide 20 Mg Tablet) 20 mg PO DAILY DEE; Protocol Home Medications ?Medication ?Instructions ?Recorded ?Confirmed ?Last Taken ?Type simvastatin 10 mg tablet 10 mg PO BEDTIME 01/16/22 11/21/23 11/19/23 History escitalopram oxalate 10 mg tablet 10 mg PO DAILY@0900 03/31/22 11/21/23 11/20/23 History gabapentin 300 mg capsule 300 mg PO TID 03/31/22 11/21/23 11/20/23 History lorazepam 1 mg tablet 1 mg PO BID PRN Anxiety 03/31/22 11/21/23 Unknown History torsemide 20 mg tablet 20 mg PO DAILY 03/31/22 11/21/23 11/20/23 History melatonin 3 mg tablet 6 mg PO BEDTIME PRN Sleep 03/24/23 11/21/23 04/14/23 History diphenhydramine 25 1 tab PO BEDTIME PRN Pain 11/21/23 11/21/23 Unknown History mg-acetaminophen 500 mg tablet (Acetaminophen PM) metoprolol tartrate 25 mg tablet 25 mg PO BID 11/21/23 11/21/23 11/20/23 History Physical Exam 2 Vital Signs and Narrative: Vital Signs: Last Vital Signs Temp 99.6 F 11/21/23 07:05 Pulse 85 11/21/23 08:43 Resp 18 11/21/23 08:43 BP 103/58 L 11/21/23 08:43 Pulse Ox 97 11/21/23 08:43 O2 Del Method Room Air 11/21/23 08:43 BMI result Body Mass Index 28.1 Appearance: Alert.? Oriented X3.? not in distress.? Eyes: Pupils equal, round and reactive to light.? Sclera nonicteric.? ENT: Pharynx normal.? Moist mucous membranes. cvs: rrr, [id number] . res: clear to auscultation ,no rhonchii or wheezing abd: no rebound or guarding ,abd disconfort left flank area, bs present. ext pulses present , no cyanosis . neuro: axo3 , nonfocal. Results Labs 11/20/23 20:24 11/20/23 20:24 Labs: Laboratory Results - last 24 hr 11/20/23 11/21/23 11/21/23 20:24 02:18 03:26 MCV 93.8 MCH 31.8 MCHC 33.9 RDW 14.0 Plt Count 251 MPV 9.5 Immature Gran % (Auto) 0.4 Neut % (Auto) 90.2 H Lymph % (Auto) 5.1 L [place] % (Auto) 3.8 Eos % (Auto) 0.3 Baso % (Auto) 0.2 Lymph # (Auto) 0.6 L [place] # (Auto) 0.5 Eos # (Auto) 0.0 Baso # (Auto) 0.0 Abs Immat Gran (auto) 0.05 H Absolute Neuts (auto) 10.9 H Absolute Nucleated RBC 0.000 Nucleated RBC % (auto) 0.0 Smear Tech's Comments VERIFIED Anion Gap 13 Estim Creat Clear Calc 59.7 Estimated GFR > 60 Random Glucose 164 H Lactic Acid 1.6 Calcium 8.7 D Magnesium 2.0 Total Bilirubin 1.1 H AST 253 H ALT 99 H Alkaline Phosphatase 98 Troponin I High Sens 8.0 B-Natriuretic Peptide 277 H Total Protein 6.7 Albumin 3.5 Lipase 56 Urine Color Dark Yellow Urine Appearance Cloudy Urine pH 5.5 Ur Specific [place] 1.015 Urine Protein Negative Urine Glucose (UA) Negative Urine Ketones Negative Urine Blood Negative Urine Nitrite Negative Ur Leukocyte Esterase Moderate (2+) H Urine RBC 0-2 Urine WBC >50 H Ur Squamous Epith Cells 11-20 Urine Bacteria 4+ Hyaline Casts 3-5 Digoxin Influenza Type A (PCR) NEGATIVE Influenza Type B (PCR) NEGATIVE RSV RNA Qual (PCR) NEGATIVE SARS-CoV-2 RNA (RT-PCR) NEGATIVE 11/21/23 11/21/23 04:40 08:41 MCV MCH MCHC RDW Plt Count MPV Immature Gran % (Auto) Neut % (Auto) Lymph % (Auto) [place] % (Auto) Eos % (Auto) Baso % (Auto) Lymph # (Auto) [place] # (Auto) Eos # (Auto) Baso # (Auto) Abs Immat Gran (auto) Absolute Neuts (auto) Absolute Nucleated RBC Nucleated RBC % (auto) Smear Tech's Comments Anion Gap Estim Creat Clear Calc Estimated GFR Random Glucose Lactic Acid Calcium Magnesium Total Bilirubin AST ALT Alkaline Phosphatase Troponin I High Sens 15.0 D B-Natriuretic Peptide Total Protein Albumin Lipase Urine Color Urine Appearance Urine pH Ur Specific [place] Urine Protein Urine Glucose (UA) Urine Ketones Urine Blood Urine Nitrite Ur Leukocyte Esterase Urine RBC Urine WBC Ur Squamous Epith Cells Urine Bacteria Hyaline Casts Digoxin 0.6 L Influenza Type A (PCR) Influenza Type B (PCR) RSV RNA Qual (PCR) SARS-CoV-2 RNA (RT-PCR) Imaging Radiologist's Impressions: Impressions Chest X-Ray 11/20/23 20:20 IMPRESSION: No evidence of acute disease. Abdomen Ultrasound 11/20/23 22:00 IMPRESSION: Cholelithiasis without evidence of acute cholecystitis. Abdomen/Pelvis CT 11/20/23 22:50 IMPRESSION: 1. No acute intra-abdominal or intrapelvic abnormalities are identified. 2. Bladder wall thickening and trabeculation with a small diverticulum, raising the possibility of chronic bilateral obstruction or neurogenic bladder. 3. Moderate to severe colonic diverticulosis without evidence of acute diverticulitis. 4. Cholelithiasis without evidence of acute cholecystitis. Fleischner guidelines were followed. Assessment and Plan (1) Persistent atrial fibrillation: Status: Acute (2) Precordial chest pain: Status: Acute Plan 78F presented with fabd pain /chestpain ,afib Chest tightness: Troponin flat, possibly related to AFib with RVR episode hr in 100's Continue eliquis, lopressor, digoxin Added cardiology evaluation abd pain/uti: ua -pyuria /bacteruria blood culture and urine cultures pending abd ct scan:no acute abnormality mild bladder thickening continue iv ceftriaxone chornic diastolic chf continue diuretics. htn: boderline elevated now hypotensive, holding meds not needed for rate control conrado:cpap depression/anxiety ativan dvt prophylaxis - on eliquis full code reason for continued hospitalization for workup 24-48 hrs of chest pain, also need IV antibiotics for UTI and monitoring for abdominal pain, cultures, expert consultation . Quality Stroke Does the patient have a stroke diagnosis?: No VTE Prior VTE?: No VTE Risk Level:: Medical - moderate - high VTE Device Contraindication: N/A - Device Ordered VTE Drug Contraindication: N/A - Med Ordered
[2023-11-21] MEDS: Digoxin 0.125 MG TABLET PO (14:51)
[2023-11-21] MEDS: Apixaban 5 MG TABLET PO ×2 (14:51→20:17)
[2023-11-21] MEDS: Metoprolol Tartrate 25 MG TABLET PO ×2 (14:51→20:16)
[2023-11-21] MEDS: Torsemide 20 MG TABLET PO (14:51)
[2023-11-21] MEDS: 0.9 % Sodium Chloride Flush 3 ML SYRINGE IVFLUSH ×2 (15:52→23:53)
--- NOTE | 2023-11-21 17:53 | PC.NURSE ---
Patient w/ full bed change, purewick change, repositioned on stretcher, resting quietly at this time waiting for bed assignment.
[2023-11-21] MEDS: Atorvastatin Calcium 10 MG TABLET PO (20:16)
[2023-11-21] MEDS: Acetaminophen 325 MG TABLET 650 MG PO (23:51)
[2023-11-21] MEDS: diphenhydrAMINE HCL 25 MG CAPSULE PO (23:52)
[2023-11-21] MEDS: Melatonin 3 MG TABLET 6 MG PO (23:52)
[2023-11-22] VITALS (10 sets, daily range): BP systolic 113–130; BP diastolic 50–74; PULSE 63–84; RESP 17–20; TEMP 36.4–36.9; O2SAT 96–98; BMI 28.2
--- NOTE | 2023-11-22 00:12 | PC.NURSE ---
Patient medicated with PO Tylenol for 8/10 neuropathic pain in b/l feet and PRN Melatonin and Benadryl for sleep. Purewick in place, call rashid in patient's reach, plan of care ongoing.
[2023-11-22] MEDS: Metoprolol Tartrate 25 MG TABLET PO ×2 (09:03→20:12)
[2023-11-22] MEDS: Apixaban 5 MG TABLET PO ×2 (09:04→20:12)
[2023-11-22] MEDS: Digoxin 0.125 MG TABLET PO (09:04)
[2023-11-22] MEDS: 0.9 % Sodium Chloride Flush 3 ML SYRINGE IVFLUSH ×3 (09:04→20:29)
[2023-11-22] MEDS: Torsemide 20 MG TABLET PO (09:04)
--- NOTE | 2023-11-22 09:35 | MHC.CM.PN ---
CM met with Patient at bedside and addressed IMM with her, providing Patient with the original and a copy has been placed on the chart. Patient lives in a house with her Son and she uses a walker and a w/c PRN only. Home/self care is the goal and CM has initiated and will follow for dc planning. HCP is Daughter/Neida and PCP is Dr. Juan Miguel Martinez.
[2023-11-22] MEDS: LORazepam 1 MG TABLET PO ×2 (09:47→23:51)
[2023-11-22] MEDS: Gabapentin 300 MG CAPSULE PO ×3 (09:47→20:12)
[2023-11-22 12:39] LABS: Alanine Aminotransferase 86 U/L (0-31); Albumin Level 3.4 g/dL (3.5-5.0); Alkaline Phosphatase 112 U/L (39-117); Aspartate Amino Transferase 83 U/L (5-31); Bilirubin Direct 1.8 mg/dL (0.0-0.5); Bilirubin Total 2.4 mg/dL (0.0-1.0); Total Protein 6.7 g/dL (6.5-8.0)
--- NOTE | 2023-11-22 15:54 | HO.PM.IMPN ---
Subjective Subjective Date of Service: 11/22/23 Interval History: abd pain Review of Systems seems improving has mild elevated lft's no fever Physical Exam Vital Signs: Vital Signs: Last Vital Signs Temp 98.4 F 11/22/23 15:09 Pulse 84 11/22/23 15:09 Resp 18 11/22/23 15:09 BP 130/74 11/22/23 15:09 Pulse Ox 96 11/22/23 15:09 O2 Del Method Room Air 11/22/23 15:09 BMI result Body Mass Index 28.2 Appearance: Alert.? Oriented X3. cvs: rrr, [id number] , no murmur res: clear to auscultation ,no rhonchii or wheezing abd: no rebound or guarding ,nt, bs present. ext pulses present , no cyanosis. neuro: axo3 , nonfocal. Objective Data Active Medications Acetaminophen (Acetaminophen 325 Mg Tablet) 650 mg PO BEDTIME PRN PRN Reason: MILD PAIN/SLEEP Last Admin: 11/21/23 23:51 Dose: 650 mg Documented By: TAINA Apixaban (Apixaban 5 Mg Tablet) 5 mg PO BID [facility] Last Admin: 11/22/23 09:04 Dose: 5 mg Documented By: RAUL Atorvastatin Calcium (Atorvastatin Calcium 10 Mg Tablet) 10 mg PO BEDTIME [facility] Last Admin: 11/21/23 20:16 Dose: 10 mg Documented By: ARELI Digoxin (Digoxin 0.125 Mg Tablet) 0.125 mg PO DAILY [facility] Last Admin: 11/22/23 09:04 Dose: 0.125 mg Documented By: RAUL Diphenhydramine HCl (Diphenhydramine Hcl 25 Mg Capsule) 25 mg PO BEDTIME PRN PRN Reason: MILD PAIN/SLEEP Last Admin: 11/21/23 23:52 Dose: 25 mg Documented By: TAINA Escitalopram Oxalate (Escitalopram Oxalate 10 Mg Tablet) 10 mg PO DAILY@0900 [facility] Gabapentin (Gabapentin 300 Mg Capsule) 300 mg PO TID [facility] Last Admin: 11/22/23 15:20 Dose: 300 mg Documented By: RAUL Ceftriaxone Sodium 1 gm/ (Sodium Chloride) 50 mls @ 100 mls/hr IV Q24H [facility] Last Infusion: 11/21/23 22:59 Dose: Infused Documented By: TAINA Lorazepam (Lorazepam 1 Mg Tablet) 1 mg PO BID PRN PRN Reason: Anxiety Last Admin: 11/22/23 09:47 Dose: 1 mg Documented By: RAUL Melatonin (Melatonin 3 Mg Tablet) 6 mg PO BEDTIME PRN PRN Reason: Sleep Last Admin: 11/21/23 23:52 Dose: 6 mg Documented By: TAINA Metoprolol Tartrate (Metoprolol Tartrate 25 Mg Tablet) 25 mg PO BID [facility]; Protocol Last Admin: 11/22/23 09:03 Dose: 25 mg Documented By: RAUL Sodium Chloride (0.9 % Sodium Chloride Flush 3 Ml Syringe) 3 ml IVFLUSH QSHIFT [facility] Last Admin: 11/22/23 15:20 Dose: 3 ml Documented By: RAUL Torsemide (Torsemide 20 Mg Tablet) 20 mg PO DAILY [facility]; Protocol Last Admin: 11/22/23 09:04 Dose: 20 mg Documented By: RAUL Labs 11/20/23 20:24 11/20/23 20:24 Labs: Laboratory Results - last 24 hr 11/22/23 12:11 Total Bilirubin 2.4 H Direct Bilirubin 1.8 H AST 83 H ALT 86 H Alkaline Phosphatase 112 Total Protein 6.7 Albumin 3.4 L Microbiology Microbiology Results: Microbiology 11/21/23 Unknown Urine Culture - Preliminary Urine clean catch - Urine sherwood top Gram negative jacobo 11/21/23 03:26 Blood Culture - Preliminary Blood - Venous No growth after 24 hours. 11/21/23 03:26 Blood Culture - Preliminary Blood - Venous No growth after 24 hours. Assessment and Plan (1) Near syncope: Status: Resolved Plan 78F presented with fabd pain /chestpain ,afib Chest tightness: Troponin flat, possibly related to AFib with RVR episode hr in 100's Continue eliquis, lopressor, digoxin cardiology evaluation-pain atypical ,no futher intervention . abd pain/uti: ua -pyuria /bacteruria blood culture neg @ 24 hrs and urine cultures pending abd ct scan:has colelithasis with elevated lft;s mild bladder thickening continue iv ceftriaxone add surgery eval-has hx of acalculous cholecystitis ,now abd pain ,has colelithasis with elevated lft;s. chornic diastolic chf continue diuretics. htn: boderline elevated now hypotensive, holding meds not needed for rate control conrado:cpap depression/anxiety ativan dvt prophylaxis - on eliquis full code reason for continued hospitalization for workup 24-48 hrs of chest pain, also need IV antibiotics for UTI and monitoring for abdominal pain, cultures, expert consultation . Quality Stroke Does the patient have a stroke diagnosis?: No VTE Prior VTE?: No VTE Risk Level:: Medical - moderate - high VTE Device Contraindication: N/A - Device Ordered VTE Drug Contraindication: N/A - Med Ordered
[2023-11-22] MEDS: Atorvastatin Calcium 10 MG TABLET PO (20:12)
[2023-11-22] MEDS: cefTRIAXone sodium 1 GM in 0.9 % Sodium Chloride 50 ML IV (23:18)
[2023-11-22] MEDS: Acetaminophen 325 MG TABLET 650 MG PO (23:47)
[2023-11-22] MEDS: Melatonin 3 MG TABLET 6 MG PO (23:50)
[2023-11-23] VITALS (8 sets, daily range): BP systolic 90–152; BP diastolic 54–79; PULSE 54–78; RESP 16–20; TEMP 36.1–36.4; O2SAT 94–100
--- NOTE | 2023-11-23 | ECG_ITS ---
Test Reason : dr order low pulse Blood Pressure : / mmHG Vent. Rate : 058 BPM Atrial Rate : 000 BPM P-R Int : 000 ms QRS Dur : 090 ms QT Int : 424 ms P-R-T Axes : 000 010 012 degrees QTc Int : 416 ms Atrial fibrillation with slow ventricular response Abnormal ECG When compared with ECG of 21-NOV-2023 08:41, Vent. rate has decreased BY 49 BPM Referred By: [place] Chatman Electronically Signed By:COLE BAR
--- NOTE | 2023-11-23 05:20 | PM.EVENT ---
Event Note Date of Service: 11/23/23 Event Note: 2.:07 am - pause 3.3 sec 4:37 am - Bradycardia noted on tele, HR 35 bpm. BP 102/56. Pt asymptomatic. Will check ECG. Check digoxin level and hold digoxin and metoprolol for now. Time Spent With Patient Time: Total time managing care of this patient today ____ minutes.
--- NOTE | 2023-11-23 07:23 | PM.CNGS ---
History of Present Illness Consult details Consult date: 11/23/23 Narrative: Patient presents to the Medical Service with a plethora of medical problems. Patient had a CT scan of the abdomen pelvis with incidental findings of gallstones. Patient has no upper abdominal or GI issues or complaints. She has had surgical consult in the past for asymptomatic cholelithiasis. She is tolerating her diet. She has never been jaundiced before. She has no other GI issues or complaints. Patient has elevation of her bilirubin and LFTs. Chart was reviewed patient evaluated. 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 Essential hypertension Throat cancer Myocardial infarct Afib HTN (hypertension) Family History Family History Daughter Breast cancer Surgical History Surgical History Atrial fibrillation status post cardioversion Social History Social History Household Members: Children Housing: House Do you presently have visiting nurse or other home services: No Alcohol intake: never Comment: restraints Patient Tobacco Use Status: Former Tobacco user Years Smoked: 41 yrs Advance Directives Date on File: 01/13/21 service: No Current occupational status: disabled Meds Allergies Allergy/AdvReac Type Severity Reaction Status Date / Time amiodarone Allergy Severe Difficulty Verified 11/20/23 19:51 Breathing Active Medications: Current Medications Acetaminophen (Acetaminophen 325 Mg Tablet) 650 mg PO BEDTIME PRN PRN Reason: MILD PAIN/SLEEP Last Admin: 11/22/23 23:47 Dose: 650 mg Apixaban (Apixaban 5 Mg Tablet) 5 mg PO BID [facility] Last Admin: 11/22/23 20:12 Dose: 5 mg Atorvastatin Calcium (Atorvastatin Calcium 10 Mg Tablet) 10 mg PO BEDTIME [facility] Last Admin: 11/22/23 20:12 Dose: 10 mg Digoxin (Digoxin 0.125 Mg Tablet) 0.125 mg PO DAILY [facility] Last Admin: 11/22/23 09:04 Dose: 0.125 mg Diphenhydramine HCl (Diphenhydramine Hcl 25 Mg Capsule) 25 mg PO BEDTIME PRN PRN Reason: MILD PAIN/SLEEP Last Admin: 11/21/23 23:52 Dose: 25 mg Escitalopram Oxalate (Escitalopram Oxalate 10 Mg Tablet) 10 mg PO DAILY@0900 [facility] Gabapentin (Gabapentin 300 Mg Capsule) 300 mg PO TID [facility] Last Admin: 11/22/23 20:12 Dose: 300 mg Ceftriaxone Sodium 1 gm/ (Sodium Chloride) 50 mls @ 100 mls/hr IV Q24H [facility] Last Infusion: 11/22/23 23:50 Dose: Infused Lorazepam (Lorazepam 1 Mg Tablet) 1 mg PO BID PRN PRN Reason: Anxiety Last Admin: 11/22/23 23:51 Dose: 1 mg Melatonin (Melatonin 3 Mg Tablet) 6 mg PO BEDTIME PRN PRN Reason: Sleep Last Admin: 11/22/23 23:50 Dose: 6 mg Metoprolol Tartrate (Metoprolol Tartrate 25 Mg Tablet) 25 mg PO BID [facility]; Protocol Last Admin: 11/22/23 20:12 Dose: 25 mg Sodium Chloride (0.9 % Sodium Chloride Flush 3 Ml Syringe) [address] [facility] Last Admin: 11/22/23 20:29 Dose: 3 ml Torsemide (Torsemide 20 Mg Tablet) 20 mg PO DAILY [facility]; Protocol Last Admin: 11/22/23 09:04 Dose: 20 mg Home Medications ?Medication ?Instructions ?Recorded ?Confirmed ?Last Taken ?Type simvastatin 10 mg tablet 10 mg PO BEDTIME 01/16/22 11/21/23 11/19/23 History escitalopram oxalate 10 mg tablet 10 mg PO DAILY@0900 03/31/22 11/21/23 11/20/23 History gabapentin 300 mg capsule 300 mg PO TID 03/31/22 11/21/23 11/20/23 History lorazepam 1 mg tablet 1 mg PO BID PRN Anxiety 03/31/22 11/21/23 Unknown History torsemide 20 mg tablet 20 mg PO DAILY 03/31/22 11/21/23 11/20/23 History melatonin 3 mg tablet 6 mg PO BEDTIME PRN Sleep 03/24/23 11/21/23 04/14/23 History diphenhydramine 25 1 tab PO BEDTIME PRN Pain 11/21/23 11/21/23 Unknown History mg-acetaminophen 500 mg tablet (Acetaminophen PM) metoprolol tartrate 25 mg tablet 25 mg PO BID 11/21/23 11/21/23 11/20/23 History Physical Exam Vital Signs: Vital Signs: Last Vital Signs Temp 97.2 F 11/23/23 04:00 Pulse 54 11/23/23 04:00 Resp 20 11/23/23 04:00 BP 135/79 11/23/23 04:00 Pulse Ox 96 11/23/23 04:00 O2 Del Method Room Air 11/23/23 04:00 BMI result Body Mass Index 28.2 GI: Other: Abdomen soft, benign. No evidence of any guarding, rebound, or rigidity. No Cartagena sign. Results Labs 11/20/23 20:24 11/20/23 20:24 Labs: Abnormal lab results 11/22/23 Range/Units 12:11 Total Bilirubin 2.4 H (0.0-1.0) mg/dL Direct Bilirubin 1.8 H (0.0-0.5) mg/dL AST 83 H (5-31) U/L ALT 86 H (0-31) U/L Albumin 3.4 L (3.5-5.0) g/dL Liver Function 11/22/23 Range/Units 12:11 Total Bilirubin 2.4 H (0.0-1.0) mg/dL Direct Bilirubin 1.8 H (0.0-0.5) mg/dL AST 83 H (5-31) U/L ALT 86 H (0-31) U/L Alkaline Phosphatase 112 (39-117) U/L Albumin 3.4 L (3.5-5.0) g/dL Urine 11/21/23 Range/Units 02:18 Urine Color Dark Yellow Urine Appearance Cloudy Urine pH 5.5 (5.0-9.0) Ur Specific [place] 1.015 (1.005-1.025) Urine Protein Negative (Neg-Trace) mg/dL Urine Glucose (UA) Negative (Negative) mg/dL All other labs normal. Assessment and Plan (1) Elevated liver function tests: Status: Acute (2) Gallstone: Status: Acute Plan Patient tient with a plethora of comorbidities and on anticoagulation. Asymptomatic gallstones with elevation of liver function tests. Consider GI consultation with possible ERCP or MRCP per their recommendation. To follow. Procedures Date of Service Date of Service: 11/23/23
[2023-11-23] MEDS: 0.9 % Sodium Chloride Flush 3 ML SYRINGE IVFLUSH ×2 (08:04→21:27)
[2023-11-23] MEDS: Apixaban 5 MG TABLET PO ×2 (08:04→21:27)
[2023-11-23] MEDS: Gabapentin 300 MG CAPSULE PO ×2 (08:05→21:27)
[2023-11-23] MEDS: Escitalopram Oxalate 10 MG TABLET PO (08:05)
[2023-11-23] MEDS: Torsemide 20 MG TABLET PO (08:05)
[2023-11-23 08:33] LABS: MANUAL DIFF FLAG NO
[2023-11-23 08:45] LABS: Basophils Percent Auto 0.5 % (0-2); Eosinophils Absolute Auto 0.1 X10*3/uL (0.0-0.4); Eosinophils Percent Auto 1.8 % (0-4); Hematocrit 37.5 % (37.0-47.0); Hemoglobin 12.6 g/dl (12.0-16.0); Imm Gran Abs Auto 0.02 X10*3/uL (0.00-0.03); Imm Gran Pct Auto 0.3 % (0.0-0.4); Lymphocytes Absolute Auto 0.6 X10*3/uL (1.2-4.9); Lymphocytes Percent Auto 9.5 % (20-40); Mean Corpuscular HGB Conc 33.6 g/dl (31.0-35.0); Mean Corpuscular Hemoglobin 31.3 pg (27.0-33.0); Mean Corpuscular Volume 93.3 fL (80.0-98.0); Mean Platelet Volume 9.9 fL (9.4-12.3); Monocytes Absolute Auto 0.5 X10*3/uL (0.1-1.2); Monocytes Percent Auto 6.9 % (2-11); Neutrophils Absolute Auto 5.4 x10*3/uL (2.0-8.3); Platelet Count 198 X10*3/uL (160-400); Red Blood Count 4.02 X10*6/uL (4.20-5.50); Red Cell Distribution Width 14.4 % (11.0-16.0); White Blood Count 6.7 X10*3/uL (4.8-10.8)
[2023-11-23 09:01] LABS: Digoxin 0.6 ng/mL (0.8-2.0)
[2023-11-23 09:06] LABS: Alanine Aminotransferase 64 U/L (0-31); Albumin Level 3.2 g/dL (3.5-5.0); Alkaline Phosphatase 113 U/L (39-117); Anion Gap 12 (12-20); Aspartate Amino Transferase 55 U/L (5-31); Bilirubin Total 1.4 mg/dL (0.0-1.0); Blood Urea Nitrogen 14 mg/dL (9-16); Calcium 8.9 mg/dL (8.4-10.2); Carbon Dioxide 30 mmol/L (22-29); Chloride 99 mmol/L (96-108); Creatinine Clr Calc Pharmacy 74.7; Estimated Glomerular Filt Rate > 60; Glucose Fasting 90 mg/dL (60-99); Magnesium 1.9 mg/dL (1.6-2.6); Sodium 138 mmol/L (135-145); Total Protein 6.4 g/dL (6.5-8.0)
[2023-11-23 09:19] LABS: HBS Num1 0.37 mIU/mL (0-7.99); HBc Num1 0.13 S/CO (0.00-0.79); HBsAGNum1 0.28 S/CO (0.00-0.99); Hepatitis A Antibody IgM 0.17 Index (0-0.79); Hepatitis B Core Antibody Nonreactive (Nonreactive); Hepatitis B Surface Antigen Negative (Negative); ~Hepatitis A Antibody IgM Nonreactive (Nonreactive); ~Hepatitis B Surface Antibody NONREACTIVE (Nonreactive); ~Hepatitis C Antibody Nonreactive (Nonreactive)
[2023-11-23 09:23] LABS: Free T4 (Free Thyroxine) 0.91 ng/dL (0.71-1.85); Thyroid Stimulating Hormone 2.58 uIU/mL (0.32-4.0)
--- NOTE | 2023-11-23 09:33 | P.CNGI_ITS ---
History of Present Illness Data of Consult Service Date: 11/23/23 Requesting physician: [place] Chatman Primary Care Provider: Juan Miguel Martinez MD HPI Reason for consult: Elevated LFTs This is a 78-year-old female with past medical history of hypertension, hyperlipidemia, atrial fibrillation on Eliquis, history of throat cancer, sick sinus syndrome with occasional bradycardia, who presented to the hospital for left-sided chest pain, shortness of breath. Reports that the night before coming to the hospital, she was experiencing sharp stabbing pain from left lower chest area going to her back. This was also associated with palpitations, chest tightness and difficulty breathing. No nausea, vomiting, fevers, chills. Was not able to get comfortable at home. When she presented to the hospital, she was found to be in rapid AFib. This was treated with medications. Gastroenterology has been consulted for question of elevated LFTs. Patient does report intermittent abdominal discomfort, but does not appear to be strictly postprandial. Seems more related to her bowel habits. Of note, his history of prolonged hospitalization in 2020 for respiratory failure complicated by VFib arrest, eventually requiring trach and PEG, as well as cholecystostomy tube for acalculous cholecystitis which have since been reversed. 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 Essential hypertension Throat cancer Myocardial infarct Afib HTN (hypertension) Family History Family History Daughter Breast cancer Surgical History Surgical History Atrial fibrillation status post cardioversion Social History Social History Household Members: Children Housing: House Do you presently have visiting nurse or other home services: No Alcohol intake: never Comment: restraints Patient Tobacco Use Status: Former Tobacco user Years Smoked: 41 yrs Advance Directives Date on File: 01/13/21 service: No Current occupational status: disabled Meds Allergies Allergy/AdvReac Type Severity Reaction Status Date / Time amiodarone Allergy Severe Difficulty Verified 11/20/23 19:51 Breathing Active Medications: Current Medications Acetaminophen (Acetaminophen 325 Mg Tablet) 650 mg PO BEDTIME PRN PRN Reason: MILD PAIN/SLEEP Last Admin: 11/22/23 23:47 Dose: 650 mg Apixaban (Apixaban 5 Mg Tablet) 5 mg PO BID [facility] Last Admin: 11/23/23 08:04 Dose: 5 mg Atorvastatin Calcium (Atorvastatin Calcium 10 Mg Tablet) 10 mg PO BEDTIME [facility] Last Admin: 11/22/23 20:12 Dose: 10 mg Digoxin (Digoxin 0.125 Mg Tablet) 0.125 mg PO DAILY [facility] Last Admin: 11/22/23 09:04 Dose: 0.125 mg Diphenhydramine HCl (Diphenhydramine Hcl 25 Mg Capsule) 25 mg PO BEDTIME PRN PRN Reason: MILD PAIN/SLEEP Last Admin: 11/21/23 23:52 Dose: 25 mg Escitalopram Oxalate (Escitalopram Oxalate 10 Mg Tablet) 10 mg PO DAILY@0900 [facility] Last Admin: 11/23/23 08:05 Dose: 10 mg Gabapentin (Gabapentin 300 Mg Capsule) 300 mg PO TID [facility] Last Admin: 11/23/23 08:05 Dose: 300 mg Ceftriaxone Sodium 1 gm/ (Sodium Chloride) 50 mls @ 100 mls/hr IV Q24H [facility] Last Infusion: 11/22/23 23:50 Dose: Infused Lorazepam (Lorazepam 1 Mg Tablet) 1 mg PO BID PRN PRN Reason: Anxiety Last Admin: 11/22/23 23:51 Dose: 1 mg Melatonin (Melatonin 3 Mg Tablet) 6 mg PO BEDTIME PRN PRN Reason: Sleep Last Admin: 11/22/23 23:50 Dose: 6 mg Metoprolol Tartrate (Metoprolol Tartrate 25 Mg Tablet) 25 mg PO BID [facility]; Protocol Last Admin: 11/22/23 20:12 Dose: 25 mg Sodium Chloride (0.9 % Sodium Chloride Flush 3 Ml Syringe) 3 ml IVFLUSH QSHIFT [facility] Last Admin: 11/23/23 08:04 Dose: 3 ml Torsemide (Torsemide 20 Mg Tablet) 20 mg PO DAILY [facility]; Protocol Last Admin: 11/23/23 08:05 Dose: 20 mg Home Medications ?Medication ?Instructions ?Recorded ?Confirmed ?Last Taken ?Type simvastatin 10 mg tablet 10 mg PO BEDTIME 01/16/22 11/21/23 11/19/23 History escitalopram oxalate 10 mg tablet 10 mg PO DAILY@0900 03/31/22 11/21/23 11/20/23 History gabapentin 300 mg capsule 300 mg PO TID 03/31/22 11/21/23 11/20/23 History lorazepam 1 mg tablet 1 mg PO BID PRN Anxiety 03/31/22 11/21/23 Unknown History torsemide 20 mg tablet 20 mg PO DAILY 03/31/22 11/21/23 11/20/23 History melatonin 3 mg tablet 6 mg PO BEDTIME PRN Sleep 03/24/23 11/21/23 04/14/23 History diphenhydramine 25 1 tab PO BEDTIME PRN Pain 11/21/23 11/21/23 Unknown History mg-acetaminophen 500 mg tablet (Acetaminophen PM) metoprolol tartrate 25 mg tablet 25 mg PO BID 11/21/23 11/21/23 11/20/23 History Physical Exam 2 Vital Signs: Vital Signs: Last Vital Signs Temp 97.5 F 11/23/23 07:24 Pulse 54 11/23/23 07:24 Resp 18 11/23/23 07:24 BP 123/62 11/23/23 08:05 Pulse Ox 96 11/23/23 07:24 O2 Del Method Room Air 11/23/23 07:24 BMI result Body Mass Index 28.2 Results Labs 11/23/23 08:00 11/23/23 08:00 Labs: Short CBC 11/23/23 Range/Units 08:00 WBC 6.7 (4.8-10.8) X10*3/uL Hgb 12.6 (12.0-16.0) g/dl Hct 37.5 (37.0-47.0) % Plt Count 198 (160-400) X10*3/uL BMP 11/23/23 08:00 Sodium 138 Potassium 3.0 L D Chloride 99 Carbon Dioxide 30 H BUN 14 Creatinine 0.68 Calcium 8.9 Liver Function 11/22/23 11/23/23 Range/Units 12:11 08:00 Total Bilirubin 2.4 H 1.4 H (0.0-1.0) mg/dL Direct Bilirubin 1.8 H (0.0-0.5) mg/dL AST 83 H 55 H (5-31) U/L ALT 86 H 64 H (0-31) U/L Alkaline Phosphatase 112 113 (39-117) U/L Albumin 3.4 L 3.2 L (3.5-5.0) g/dL Microbiology Microbiology Results: Microbiology 11/21/23 Unknown Urine clean catch - Urine [place] top Urine Culture - Final Escherichia coli Corynebacterium species 11/21/23 03:26 Blood - Venous Blood Culture - Preliminary No growth after 48 hours. 11/21/23 03:26 Blood - Venous Blood Culture - Preliminary No growth after 48 hours. Assessment and Plan (1) Elevated liver function tests: Status: Acute (2) Gallstone: Status: Acute (3) Atrial fibrillation with rapid ventricular response: Status: Acute Plan Presenting complaints seem related to rapid AFib. LFTs found to be incidentally high. Based on age and abnormal LFTs falls under intermediate probability of choledocholithiasis at this time. Could also be secondary to mild hypoperfusion due to rapid AFib, however typically transaminases are much more pronounced in that case. Plan: -Recommend MRCP -consider switching Eliquis to IV anticoagulation, in case procedure needed based on results of MRCP Thank you for allowing me to participate in her care. Please do not hesitate to reach out for any questions or concerns. Procedures Date of Service Date of Service: 11/23/23
--- NOTE | 2023-11-23 09:44 | P.PNCA_ITS ---
Subjective Subjective Date of Service: 11/23/23 Interval history: Patient has some nonspecific pain in the left upper quadrant, lower most rib area but nothing clear-cut cardiac sounding. Very vague in description. Sometimes with breathing sometimes otherwise randomly. Review of Systems Review of Systems Yes all other systems are reviewed and are negative Constitutional: Reports as per HPI and Reports no additional constitutional complaints Eyes: Reports as per HPI and Denies no additional eye complaints Denies system reviewed and no additional complaints, except as documented and Reports as per HPI Cardiovascular: Reports as per HPI, Reports no additional cardiovascular complaints, Denies acrocyanosis, Denies cool extremities, Denies chest pain, Denies leg edema, Denies lightheadedness, Denies palpitations and Denies dyspnea Respiratory: Reports as per HPI, Denies no additional respiratory complaints and Denies dyspnea Gastrointestinal: Reports as per HPI and Denies no additional gastrointestinal complaints Genitourinary: Reports as per HPI Musculoskeletal: Reports no additional musculoskeletal complaints and Reports as per HPI Skin/Breast: Reports system reviewed and no additional complaints, except as docu Reports system reviewed and no additional complaints, except as documented and Reports as per HPI Psychiatric: Reports no additional psychiatric complaints and Reports as per HPI Endocrine: Reports no additional endocrine complaints, Reports as per HPI and Denies palpitations Hematologic/Lymphatic: Reports no additional hematologic/lymphatic complaints and Reports as per HPI Allergic/Immunologic: Reports no additional allergic/immunologic complaints and Reports as per HPI Physical Exam Vital Signs: Last Vital Signs Temp 97.5 F 11/23/23 07:24 Pulse 54 11/23/23 07:24 Resp 18 11/23/23 07:24 BP 123/62 11/23/23 08:05 Pulse Ox 96 11/23/23 07:24 O2 Del Method Room Air 11/23/23 07:24 BMI result Body Mass Index 28.2 Const General: comfortable and no acute distress Orientation/consciousness: patient oriented x3 HEENT Other: Unremarkable Head: Yes normal to inspection Neck Neck: Yes normal visual inspection Chest Chest palpation & inspection: normal inspection of the chest Resp Auscultation: clear to auscultation bilaterally Cardio Palpation: normal PMI Heart sounds: S1 normal heart sound present, S2 normal heart sound present, no gallops, no murmurs and no rubs GI Palpation (GI): Soft to palpation Back/Spine/Pelvis Other: unremarkable Skin General skin exam: no rashes or lesions noted Neuro General: patient oriented x3 Extrem General: Yes normal to inspection Psych Mental Status: mental status grossly normal Objective Labs and Meds 11/23/23 08:00 11/23/23 08:00 Lab results: Laboratory Results - last 24 hr 11/22/23 11/23/23 12:11 08:00 WBC 6.7 RBC 4.02 L Hgb 12.6 Hct 37.5 MCV 93.3 MCH 31.3 MCHC 33.6 RDW 14.4 Plt Count 198 MPV 9.9 Immature Gran % (Auto) 0.3 Neut % (Auto) 81.0 H Lymph % (Auto) 9.5 L [place] % (Auto) 6.9 Eos % (Auto) 1.8 Baso % (Auto) 0.5 Lymph # (Auto) 0.6 L [place] # (Auto) 0.5 Eos # (Auto) 0.1 Baso # (Auto) 0.0 Abs Immat Gran (auto) 0.02 Absolute Neuts (auto) 5.4 Absolute Nucleated RBC 0.000 Nucleated RBC % (auto) 0.0 Sodium 138 Potassium 3.0 L D Chloride 99 Carbon Dioxide 30 H Anion Gap 12 BUN 14 Creatinine 0.68 Estim Creat Clear Calc 74.7 Estimated GFR > 60 Fasting Glucose 90 Calcium 8.9 Magnesium 1.9 Total Bilirubin 2.4 H 1.4 H Direct Bilirubin 1.8 H AST 83 H 55 H ALT 86 H 64 H Alkaline Phosphatase 112 113 Total Protein 6.7 6.4 L Albumin 3.4 L 3.2 L TSH 2.58 Free T4 0.91 Digoxin 0.6 L Hepatitis A IgM Ab Nonreactive Hep Bs Antigen Negative Hep Bs Antibody NONREACTIVE Hep B Core Total Ab Nonreactive Hepatitis C Ab (EIA) Nonreactive Progress Note: A&P Assessment and plan (1) Precordial chest pain: Status: Acute Assessment and Plan: Atypical symptoms and more so in the upper abdomen on the left side and do not believe it is angina. Unremarkable troponins. (2) Persistent atrial fibrillation: Status: Acute Assessment and Plan: Initially, rapid rates but now on the slower side. Listed to be on metoprolol and digoxin. She does run slightly bradycardic but nothing profound. Okay to continue without changes as she might otherwise go tachycardic. Continue Eliquis. By prior documentation, she has been on flecainide, amiodarone extra. She also has a history of cardiac arrest the setting of atrial fibrillation with slow rate from a primary respiratory event. No further changes at this time. Plan Total time spent in this patient encounter-40 minutes. This includes time spent in review of chart, laboratory data, imaging studies, review of telemetry, counseling patient, discussion with hospitalist, RN, documentation, coordination of care. Discussed with Dr. Chatman. Time Spent With Patient Time: Total time managing care of this patient today ____ minutes. Progress Note: Quality Stroke Does the patient have a stroke diagnosis?: No Procedures Date of Service Date of Service: 11/23/23
[2023-11-23] MEDS: Potassium Chloride ER 20 MEQ TAB.ER.PRT PO (10:21)
[2023-11-23] MEDS: Potassium Chloride ER 10 MEQ TABLET.ER PO (10:21)
--- NOTE | 2023-11-23 12:02 | HO.PM.IMPN ---
Subjective Subjective Date of Service: 11/23/23 Interval History: elevated lfts abd pain seems improving Review of Systems no fevers has bradycardia Physical Exam Vital Signs: Vital Signs: Last Vital Signs Temp 96.9 F 11/23/23 10:59 Pulse 54 11/23/23 10:59 Resp 18 11/23/23 10:59 BP 90/54 L 11/23/23 10:59 Pulse Ox 96 11/23/23 10:59 O2 Del Method Room Air 11/23/23 10:59 BMI result Body Mass Index 28.2 Appearance: Alert.? Oriented X3. cvs: rrr, [id number] , no murmur res: clear to auscultation ,no rhonchii or wheezing abd: no rebound or guarding ,nt, bs present. ext pulses present , no cyanosis. neuro: axo3 , nonfocal. Objective Data Active Medications Acetaminophen (Acetaminophen 325 Mg Tablet) 650 mg PO BEDTIME PRN PRN Reason: MILD PAIN/SLEEP Last Admin: 11/22/23 23:47 Dose: 650 mg Documented By: SAGE Apixaban (Apixaban 5 Mg Tablet) 5 mg PO BID [facility] Last Admin: 11/23/23 08:04 Dose: 5 mg Documented By: TAMIKA Atorvastatin Calcium (Atorvastatin Calcium 10 Mg Tablet) 10 mg PO BEDTIME [facility] Last Admin: 11/22/23 20:12 Dose: 10 mg Documented By: SAGE Digoxin (Digoxin 0.125 Mg Tablet) 0.125 mg PO DAILY [facility] Last Admin: 11/22/23 09:04 Dose: 0.125 mg Documented By: RAUL Diphenhydramine HCl (Diphenhydramine Hcl 25 Mg Capsule) 25 mg PO BEDTIME PRN PRN Reason: MILD PAIN/SLEEP Last Admin: 11/21/23 23:52 Dose: 25 mg Documented By: TAINA Escitalopram Oxalate (Escitalopram Oxalate 10 Mg Tablet) 10 mg PO DAILY@0900 [facility] Last Admin: 11/23/23 08:05 Dose: 10 mg Documented By: TAMIKA Gabapentin (Gabapentin 300 Mg Capsule) 300 mg PO TID [facility] Last Admin: 11/23/23 08:05 Dose: 300 mg Documented By: TAMIKA Ceftriaxone Sodium 1 gm/ (Sodium Chloride) 50 mls @ 100 mls/hr IV Q24H [facility] Last Infusion: 11/22/23 23:50 Dose: Infused Documented By: SAGE Lorazepam (Lorazepam 1 Mg Tablet) 1 mg PO BID PRN PRN Reason: Anxiety Last Admin: 11/22/23 23:51 Dose: 1 mg Documented By: SAGE Melatonin (Melatonin 3 Mg Tablet) 6 mg PO BEDTIME PRN PRN Reason: Sleep Last Admin: 11/22/23 23:50 Dose: 6 mg Documented By: SAGE Metoprolol Tartrate (Metoprolol Tartrate 25 Mg Tablet) 25 mg PO BID [facility]; Protocol Last Admin: 11/22/23 20:12 Dose: 25 mg Documented By: SAGE Sodium Chloride (0.9 % Sodium Chloride Flush 3 Ml Syringe) 3 ml IVFLUSH QSHIFT [facility] Last Admin: 11/23/23 08:04 Dose: 3 ml Documented By: TAMIKA Torsemide (Torsemide 20 Mg Tablet) 20 mg PO DAILY [facility]; Protocol Last Admin: 11/23/23 08:05 Dose: 20 mg Documented By: TAMIKA Labs 11/23/23 08:00 11/23/23 08:00 Labs: Laboratory Results - last 24 hr 11/22/23 11/23/23 12:11 08:00 MCV 93.3 MCH 31.3 MCHC 33.6 RDW 14.4 Plt Count 198 MPV 9.9 Immature Gran % (Auto) 0.3 Neut % (Auto) 81.0 H Lymph % (Auto) 9.5 L [place] % (Auto) 6.9 Eos % (Auto) 1.8 Baso % (Auto) 0.5 Lymph # (Auto) 0.6 L [place] # (Auto) 0.5 Eos # (Auto) 0.1 Baso # (Auto) 0.0 Abs Immat Gran (auto) 0.02 Absolute Neuts (auto) 5.4 Absolute Nucleated RBC 0.000 Nucleated RBC % (auto) 0.0 Anion Gap 12 Estim Creat Clear Calc 74.7 Estimated GFR > 60 Fasting Glucose 90 Calcium 8.9 Magnesium 1.9 Total Bilirubin 2.4 H 1.4 H Direct Bilirubin 1.8 H AST 83 H 55 H ALT 86 H 64 H Alkaline Phosphatase 112 113 Total Protein 6.7 6.4 L Albumin 3.4 L 3.2 L TSH 2.58 Free T4 0.91 Digoxin 0.6 L Hepatitis A IgM Ab Nonreactive Hep Bs Antigen Negative Hep Bs Antibody NONREACTIVE Hep B Core Total Ab Nonreactive Hepatitis C Ab (EIA) Nonreactive Microbiology Microbiology Results: Microbiology 11/21/23 Unknown Urine Culture - Final Urine clean catch - Urine [place] top Escherichia coli Corynebacterium species 11/21/23 03:26 Blood Culture - Preliminary Blood - Venous No growth after 48 hours. 11/21/23 03:26 Blood Culture - Preliminary Blood - Venous No growth after 48 hours. Assessment and Plan (1) Near syncope: Status: Resolved Plan 78F presented with fabd pain /chestpain ,afib Chest tightness: Troponin flat, possibly related to AFib with RVR episode hr -has some bradycardia intermittent digoxin levels 0.6 asymptomatic d/w cardiology evaluation-pain atypical ,no futher intervention . Continue eliquis, lopressor, digoxin elevated lfts'/abd pain ct abd and abd us - cholelithasis added hepatitis serlogies -neg Gi eval abd pain/uti: ua -pyuria /bacteruria blood culture neg @ 24 hrs and urine cultures pending abd ct scan:has colelithasis with elevated lft;s mild bladder thickening continue iv ceftriaxone add surgery eval-has hx of acalculous cholecystitis ,now abd pain ,has colelithasis with elevated lft;s. chornic diastolic chf continue diuretics. htn: boderline elevated now hypotensive, holding meds not needed for rate control conrado:cpap depression/anxiety ativan dvt prophylaxis - on eliquis. Pt eval full code reason for continued hospitalization for workup 24-48 hrs of chest pain, also need IV antibiotics for UTI and monitoring for abdominal pain, cultures, expert consultation . Quality Stroke Does the patient have a stroke diagnosis?: No VTE Prior VTE?: No VTE Risk Level:: Medical - moderate - high VTE Device Contraindication: N/A - Device Ordered VTE Drug Contraindication: N/A - Med Ordered
--- NOTE | 2023-11-23 14:31 | P.CDIM_ITS ---
PROVIDER RESPONSE TEXT: To clarify, the appropriate diagnosis supported by the clinical indicators: Hypokalemia: hypokalemia QUERY TEXT: PHYSICIAN'S DOCUMENTATION REQUEST Date of Query: 11/23/2023 12:39 PM EDT Patient Name: Lucia Ch Admit Date: 11/21/2023 Dear [place] Chatman, A review of the medical record indicates additional documentation may be needed. Please review below and update the documentation accordingly. Clinical Indicators: LAB FINDINGS: potassium 3.0 L Klor-Con Based on the above, is there a diagnosis that correlates with these lab findings: Hypokalemia resolved, possible, probable, suspected Labs indicate a diagnosis of (please specify) Other (explain) Clinically unable to determine (explain) Thank you, Mary Leo, CCS, CDIS Use of terms such as suspected, likely, concern for, or probable (associated with a specific diagnosi s that is being evaluated, monitored, or treated as if it exists) are acceptable and can be coded in the inpatient se tting, when documented at the time of discharge. Please use your independent medical judgment in providing your response. THIS QUERY IS PART OF THE PERMANENT MEDICAL RECORD
[2023-11-23] MEDS: Atorvastatin Calcium 10 MG TABLET PO (21:27)
[2023-11-23] MEDS: cefTRIAXone sodium 1 GM in 0.9 % Sodium Chloride 50 ML IV (23:20)
[2023-11-23] MEDS: Acetaminophen 325 MG TABLET 650 MG PO (23:20)
[2023-11-24] VITALS (10 sets, daily range): BP systolic 119–158; BP diastolic 68–95; PULSE 54–89; RESP 16–20; TEMP 36.1–36.7; O2SAT 94–97
[2023-11-24] MEDS: Melatonin 3 MG TABLET 6 MG PO
[2023-11-24] MEDS: Apixaban 5 MG TABLET PO (08:44)
[2023-11-24] MEDS: Escitalopram Oxalate 10 MG TABLET PO (08:44)
[2023-11-24] MEDS: Gabapentin 300 MG CAPSULE PO ×3 (08:44→19:52)
[2023-11-24] MEDS: Torsemide 20 MG TABLET PO (08:44)
[2023-11-24] MEDS: 0.9 % Sodium Chloride Flush 3 ML SYRINGE IVFLUSH ×2 (08:45→15:43)
[2023-11-24] MEDS: LORazepam 1 MG TABLET PO ×2 (11:39)
[2023-11-24 13:14] LABS: Potassium 3.1 mmol/L (3.3-5.1)
[2023-11-24] MEDS: Metoprolol Tartrate 12.5 MG HALFTAB PO ×3 (13:15→19:52)
--- NOTE | 2023-11-24 13:17 | MHC.CM.PN ---
CM met with pt to discuss home care services. Pt. said she had VNA services not long ago and does her exercises everyday. She agreed to have services again and wanted to use the same VNA, which was [facility]. Referral sent to [facility] to be Monday, depending on pt.'s DC.
--- NOTE | 2023-11-24 14:10 | PM.PNGS ---
Subjective Subjective Date of Service: 11/24/23 <Jennifer Culp PA-C - Last Filed: 11/24/23 14:12> 11/24/23 <Mino Julian MD - Last Filed: 11/24/23 20:10> Interval history: Very mild epigastric/LUQ pain. <Jennifer Culp PA-C - Last Filed: 11/24/23 14:12> Physical Exam Vital Signs: Vital Signs: Last Vital Signs Temp 98 F 11/24/23 10:53 Pulse 54 11/24/23 11:34 Resp 20 11/24/23 10:53 BP 142/85 H 11/24/23 11:41 Pulse Ox 96 11/24/23 11:34 O2 Del Method Room Air 11/24/23 10:53 BMI result Body Mass Index 28.2 <BARBIE Arellano Last Filed: 11/24/23 14:12> Const: General: comfortable, no acute distress and alert <Jennifer Culp PA-C - Last Filed: 11/24/23 14:12> Orientation/consciousness: patient oriented x3 <Jennifer Culp PA-C - Last Filed: 11/24/23 14:12> Resp: Effort & Inspection: normal respiratory effort <BARBIE Arellano Last Filed: 11/24/23 14:12> GI: Inspection: No distended <Jennifer Culp PA-C - Last Filed: 11/24/23 14:12> Palpation (GI): Soft to palpation and Tenderness to palpation present (GI) in the epigastrum (mild); Cartagena's sign negative <Jennifer Culp PA-C - Last Filed: 11/24/23 14:12> Skin: General skin exam: no rashes or lesions noted and no jaundice <BARBIE Arellano Last Filed: 11/24/23 14:12> Neuro: General: patient oriented x3 and moves all extremities <BARBIE Arellano Last Filed: 11/24/23 14:12> Objective Data Active Medications Acetaminophen (Acetaminophen 325 Mg Tablet) 650 mg PO BEDTIME PRN PRN Reason: MILD PAIN/SLEEP Last Admin: 11/23/23 23:20 Dose: 650 mg Documented By: BRO Atorvastatin Calcium (Atorvastatin Calcium 10 Mg Tablet) 10 mg PO BEDTIME [facility] Last Admin: 11/23/23 21:27 Dose: 10 mg Documented By: BRO Digoxin (Digoxin 0.125 Mg Tablet) 0.125 mg PO DAILY [facility] Last Admin: 11/22/23 09:04 Dose: 0.125 mg Documented By: RAUL Diphenhydramine HCl (Diphenhydramine Hcl 25 Mg Capsule) 25 mg PO BEDTIME PRN PRN Reason: MILD PAIN/SLEEP Last Admin: 11/21/23 23:52 Dose: 25 mg Documented By: TAINA Enoxaparin Sodium (Enoxaparin Sodium 80 Mg/0.8 Ml Syringe) 80 mg 1 mg/kg (80 mg) SUBCUT Q12H [facility] Escitalopram Oxalate (Escitalopram Oxalate 10 Mg Tablet) 10 mg PO DAILY@0900 [facility] Last Admin: 11/24/23 08:44 Dose: 10 mg Documented By: TAMIKA Gabapentin (Gabapentin 300 Mg Capsule) 300 mg PO TID [facility] Last Admin: 11/24/23 08:44 Dose: 300 mg Documented By: TAMIKA Ceftriaxone Sodium 1 gm/ (Sodium Chloride) 50 mls @ 100 mls/hr IV Q24H [facility] Last Infusion: 11/23/23 23:50 Dose: Infused Documented By: BRO Lorazepam (Lorazepam 1 Mg Tablet) 1 mg PO BID PRN PRN Reason: Anxiety Last Admin: 11/24/23 11:39 Dose: 1 mg Documented By: SANA Melatonin (Melatonin 3 Mg Tablet) 6 mg PO BEDTIME PRN PRN Reason: Sleep Last Admin: 11/24/23 00:00 Dose: 6 mg Documented By: BRO Metoprolol Tartrate (Metoprolol Tartrate 12.5 Mg Halftab) 12.5 mg PO QID [facility]; Protocol Last Admin: 11/24/23 13:15 Dose: 12.5 mg Documented By: TAMIKA Sodium Chloride (0.9 % Sodium Chloride Flush 3 Ml Syringe) 3 ml IVFLUSH QSHIFT [facility] Last Admin: 11/24/23 08:45 Dose: 3 ml Documented By: TAMIKA Torsemide (Torsemide 20 Mg Tablet) 20 mg PO DAILY [facility]; Protocol Last Admin: 11/24/23 08:44 Dose: 20 mg Documented By: TAMIKA <Jennifer Culp PA-C - Last Filed: 11/24/23 14:12> Labs CBC & Chem 7: 11/23/23 08:00 11/24/23 12:47 <Jennifer Culp PA-C - Last Filed: 11/24/23 14:12> Procedures Date of Service Date of Service: 11/24/23 <Jennifer Culp PA-C - Last Filed: 11/24/23 14:12> 11/24/23 <Mino Julian MD - Last Filed: 11/24/23 20:10> Progress Note: A&P Assessment and plan (1) Elevated liver function tests: Status: Acute <Jennifer Culp PA-C - Last Filed: 11/24/23 14:12> Assessment and Plan: Admitted with elevated LFTs. MRCP yesterday showed CBD stones. Await ERCP. Plan for lap ccy possible open following, tentatively Monday. <Jennifer Culp PA-C - Last Filed: 11/24/23 14:12> Admitted with elevated LFTs. MRCP yesterday showed CBD stones. Await ERCP on Monday.. Plan for lap ccy possible open following, tentatively . <Mino Julian MD - Last Filed: 11/24/23 20:10> Time Spent With Patient Time: Total time managing care of this patient today ____ minutes. <Jennifer Culp PA-C - Last Filed: 11/24/23 14:12> Quality Stroke Does the patient have a stroke diagnosis?: No <Jennifer Culp PA-C - Last Filed: 11/24/23 14:12> VTE Prior VTE?: No <Jennifer Culp PA-C - Last Filed: 11/24/23 14:12> VTE Risk Level:: Medical - moderate - high <Jennifer Culp PA-C - Last Filed: 11/24/23 14:12> VTE Device Contraindication: N/A - Device Ordered <Jennifer Culp PA-C - Last Filed: 11/24/23 14:12> VTE Drug Contraindication: N/A - Med Ordered <Jennifer Culp PA-C - Last Filed: 11/24/23 14:12>
--- NOTE | 2023-11-24 14:44 | P.PNGI_ITS ---
Subjective Subjective Date of Service: 11/24/23 Interval History: Patient just got lorazepam for anxeity so a little groggy appetite is poor denies abdominal pain, no nausea hasn;t tried eating yet MRCP with choledocholithiasis Critical Care Time (minutes): 0 Physical Exam 2 Vital Signs: Vital Signs: Last Vital Signs Temp 98 F 11/24/23 10:53 Pulse 54 11/24/23 11:34 Resp 20 11/24/23 10:53 BP 142/85 H 11/24/23 11:41 Pulse Ox 96 11/24/23 11:34 O2 Del Method Room Air 11/24/23 10:53 BMI result Body Mass Index 28.2 EXAM: GENERAL: The patient is well developed and nontoxic. VITAL SIGNS:see workflow HEENT: Nonicteric sclerae, PERRLA, EOMI. Oropharynx clear. Moist mucous membranes. Conjunctivae appear well perfused. No thyroid mass. CHEST: Chest wall is nontender. HEART: Regular rate and rhythm without murmurs. LUNGS: Clear to auscultation bilaterally. ABDOMEN: Soft, positive bowel sounds, nontender, no organomegaly.no flank tenderness SKIN: No rash, no excessive bruising, petechiae, or purpura. NEUROLOGIC: Cranial nerves II-XII intact without motor/sensory deficit. slightly groggy Psych: normal affect Objective Data Labs 11/23/23 08:00 11/24/23 12:47 Labs: Laboratory Results - last 24 hr 11/24/23 12:47 Potassium 3.1 L Imaging MRI - abdomen: Attestation: I personally reviewed and interpreted this imaging study as follows: (GB packed with stones with several filling defects noted in CBD) Microbiology Microbiology Results: Microbiology 11/21/23 Unknown Urine clean catch - Urine [place] top Urine Culture - Final Escherichia coli Corynebacterium species 11/21/23 03:26 Blood - Venous Blood Culture - Preliminary No growth after 48 hours. 11/21/23 03:26 Blood - Venous Blood Culture - Preliminary No growth after 48 hours. Procedures Date of Service Date of Service: 11/24/23 Progress Note: A&P Assessment and plan (1) Elevated liver function tests: Status: Acute (2) Gallstone: Status: Acute Plan 1/ Choledocholithiasis with numerous stones in CBD and GB, abn LFT-no evidence of cholangitis at this time PLAN: 1/ ERCP Monday with stone extraction, possible stenting if needed, maybe spyglass as well 2/ hold eliquis Time Spent With Patient Time: Total time managing care of this patient today ____ minutes. Quality Stroke Does the patient have a stroke diagnosis?: No VTE Prior VTE?: No VTE Risk Level:: Medical - moderate - high VTE Device Contraindication: N/A - Device Ordered VTE Drug Contraindication: N/A - Med Ordered
--- NOTE | 2023-11-24 16:10 | HO.PM.IMPN ---
Subjective Subjective Date of Service: 11/24/23 Interval History: elevated lfts Review of Systems abd pain improving, no fevers Physical Exam Vital Signs: Vital Signs: Last Vital Signs Temp 98.1 F 11/24/23 15:23 Pulse 62 11/24/23 15:23 Resp 20 11/24/23 15:23 BP 123/76 11/24/23 15:23 Pulse Ox 97 11/24/23 15:23 O2 Del Method Room Air 11/24/23 15:23 BMI result Body Mass Index 28.2 Appearance: Alert.? Oriented X3. cvs: rrr, [id number] , no murmur res: clear to auscultation ,no rhonchii or wheezing abd: no rebound or guarding ,nt, bs present. ext pulses present , no cyanosis. neuro: axo3 , nonfocal. Objective Data Active Medications Acetaminophen (Acetaminophen 325 Mg Tablet) 650 mg PO BEDTIME PRN PRN Reason: MILD PAIN/SLEEP Last Admin: 11/23/23 23:20 Dose: 650 mg Documented By: BRO Atorvastatin Calcium (Atorvastatin Calcium 10 Mg Tablet) 10 mg PO BEDTIME [facility] Last Admin: 11/23/23 21:27 Dose: 10 mg Documented By: BRO Digoxin (Digoxin 0.125 Mg Tablet) 0.125 mg PO DAILY [facility] Last Admin: 11/22/23 09:04 Dose: 0.125 mg Documented By: RAUL Diphenhydramine HCl (Diphenhydramine Hcl 25 Mg Capsule) 25 mg PO BEDTIME PRN PRN Reason: MILD PAIN/SLEEP Last Admin: 11/21/23 23:52 Dose: 25 mg Documented By: TAINA Enoxaparin Sodium (Enoxaparin Sodium 80 Mg/0.8 Ml Syringe) 80 mg 1 mg/kg (80 mg) SUBCUT Q12H [facility] Escitalopram Oxalate (Escitalopram Oxalate 10 Mg Tablet) 10 mg PO DAILY@0900 [facility] Last Admin: 11/24/23 08:44 Dose: 10 mg Documented By: TAMIKA Gabapentin (Gabapentin 300 Mg Capsule) 300 mg PO TID [facility] Last Admin: 11/24/23 15:43 Dose: 300 mg Documented By: TAMIKA Ceftriaxone Sodium 1 gm/ (Sodium Chloride) 50 mls @ 100 mls/hr IV Q24H [facility] Last Infusion: 11/23/23 23:50 Dose: Infused Documented By: BRO Lorazepam (Lorazepam 1 Mg Tablet) 1 mg PO BID PRN PRN Reason: Anxiety Last Admin: 11/24/23 11:39 Dose: 1 mg Documented By: SANA Melatonin (Melatonin 3 Mg Tablet) 6 mg PO BEDTIME PRN PRN Reason: Sleep Last Admin: 11/24/23 00:00 Dose: 6 mg Documented By: BRO Metoprolol Tartrate (Metoprolol Tartrate 12.5 Mg Halftab) 12.5 mg PO QID [facility]; Protocol Last Admin: 11/24/23 15:43 Dose: 12.5 mg Documented By: TAMIKA Sodium Chloride (0.9 % Sodium Chloride Flush 3 Ml Syringe) 3 ml IVFLUSH QSHIFT [facility] Last Admin: 11/24/23 15:43 Dose: 3 ml Documented By: TAMIKA Torsemide (Torsemide 20 Mg Tablet) 20 mg PO DAILY [facility]; Protocol Last Admin: 11/24/23 08:44 Dose: 20 mg Documented By: TAMIKA Labs 11/23/23 08:00 11/24/23 12:47 Assessment and Plan (1) Elevated liver function tests: Status: Acute (2) Acute UTI: Status: Acute Plan 78F presented with fabd pain /chestpain ,afib Chest tightness: Troponin flat, possibly related to AFib with RVR episode hr -has some bradycardia intermittent digoxin levels 0.6 asymptomatic d/w cardiology evaluation-pain atypical ,no futher intervention . Continue eliquis,added lopressorback,hold digoxin due to bradycadia. elevated lfts'/abd pain ct abd and abd us - cholelithasis hepatitis serlogies -neg mrcp-MRCP with choledocholithiasis Gi eval -patient will need ercp earlier next week abd pain/uti: ua -pyuria /bacteruria blood culture neg @ 24 hrs and urine cultures pending abd ct scan:has colelithasis with elevated lft;s mild bladder thickening continue iv ceftriaxone surgery eval-has hx of acalculous cholecystitis ,now abd pain ,has colelithasis with elevated lft;s, [id number] showed choledocholithiasis and Gi rec - need ercp earlier next week. chornic diastolic chf continue diuretics. htn: boderline elevated now hypotensive, holding meds not needed for rate control conrado:cpap depression/anxiety ativan dvt prophylaxis - hold eliquis,switched to lovenox. Pt eval full code reason for continued hospitalization for workup 24-48 hrs of chest pain, also need IV antibiotics for UTI and monitoring for abdominal pain, cultures, expert consultation and ercp next week Quality Stroke Does the patient have a stroke diagnosis?: No VTE Prior VTE?: No VTE Risk Level:: Medical - moderate - high VTE Device Contraindication: N/A - Device Ordered VTE Drug Contraindication: N/A - Med Ordered
[2023-11-24] MEDS: Atorvastatin Calcium 10 MG TABLET PO (19:52)
[2023-11-24] MEDS: Enoxaparin Sodium 80 MG/0.8 ML SYRINGE SUBCUT (19:52)
[2023-11-25] VITALS (8 sets, daily range): BP systolic 104–139; BP diastolic 60–88; PULSE 56–81; RESP 16–19; TEMP 36–37; O2SAT 94–98
[2023-11-25] MEDS: cefTRIAXone sodium 1 GM in 0.9 % Sodium Chloride 50 ML IV ×2 (01:03→22:38)
[2023-11-25] MEDS: 0.9 % Sodium Chloride Flush 3 ML SYRINGE IVFLUSH ×4 (01:04→22:39)
[2023-11-25] MEDS: Acetaminophen 325 MG TABLET 650 MG PO (01:11)
[2023-11-25] MEDS: Melatonin 3 MG TABLET 6 MG PO (01:30)
[2023-11-25] MEDS: LORazepam 1 MG TABLET PO (01:30)
[2023-11-25] MEDS: Gabapentin 300 MG CAPSULE PO ×3 (09:05→22:37)
[2023-11-25] MEDS: Metoprolol Tartrate 12.5 MG HALFTAB PO ×3 (09:05→22:37)
[2023-11-25] MEDS: Enoxaparin Sodium 80 MG/0.8 ML SYRINGE SUBCUT ×2 (09:05→22:37)
[2023-11-25] MEDS: Torsemide 20 MG TABLET PO (09:05)
[2023-11-25] MEDS: Escitalopram Oxalate 10 MG TABLET PO (09:05)
--- NOTE | 2023-11-25 15:29 | P.PNIM_ITS ---
Subjective Subjective Date of Service: 11/25/23 Interval History: elevated lfts ? Choledocholithiasis Review of Systems No abdominal pain No fever No new other complaints. Physical Exam 2 Vital Signs: Vital Signs: Last Vital Signs Temp 96.8 F 11/25/23 11:27 Pulse 66 11/25/23 11:27 Resp 16 11/25/23 11:27 BP 122/60 11/25/23 11:27 Pulse Ox 96 11/25/23 11:27 O2 Del Method Room Air 11/25/23 11:27 BMI result Body Mass Index 28.2 Appearance: Alert.? Oriented X3. cvs: [id number], [id number] , no murmur res: clear to auscultation ,no rhonchii or wheezing abd: no rebound or guarding ,nt, bs present. ext pulses present , no cyanosis. neuro: axo3 , nonfocal. Objective Data Active Medications Acetaminophen (Acetaminophen 325 Mg Tablet) 650 mg PO BEDTIME PRN PRN Reason: MILD PAIN/SLEEP Last Admin: 11/25/23 01:11 Dose: 650 mg Documented By: SERA Atorvastatin Calcium (Atorvastatin Calcium 10 Mg Tablet) 10 mg PO BEDTIME [facility] Last Admin: 11/24/23 19:52 Dose: 10 mg Documented By: CODY Diphenhydramine HCl (Diphenhydramine Hcl 25 Mg Capsule) 25 mg PO BEDTIME PRN PRN Reason: MILD PAIN/SLEEP Last Admin: 11/21/23 23:52 Dose: 25 mg Documented By: TAINA Enoxaparin Sodium (Enoxaparin Sodium 80 Mg/0.8 Ml Syringe) 80 mg 1 mg/kg (80 mg) SUBCUT Q12H [facility] Last Admin: 11/25/23 09:05 Dose: 80 mg Documented By: MARV Escitalopram Oxalate (Escitalopram Oxalate 10 Mg Tablet) 10 mg PO DAILY@0900 [facility] Last Admin: 11/25/23 09:05 Dose: 10 mg Documented By: MARV Gabapentin (Gabapentin 300 Mg Capsule) 300 mg PO TID [facility] Last Admin: 11/25/23 09:05 Dose: 300 mg Documented By: MARV Ceftriaxone Sodium 1 gm/ (Sodium Chloride) 50 mls @ 100 mls/hr IV Q24H [facility] Last Infusion: 11/25/23 01:38 Dose: Infused Documented By: SERA Lorazepam (Lorazepam 1 Mg Tablet) 1 mg PO BID PRN PRN Reason: Anxiety Last Admin: 11/25/23 01:30 Dose: 1 mg Documented By: SERA Melatonin (Melatonin 3 Mg Tablet) 6 mg PO BEDTIME PRN PRN Reason: Sleep Last Admin: 11/25/23 01:30 Dose: 6 mg Documented By: SERA Metoprolol Tartrate (Metoprolol Tartrate 12.5 Mg Halftab) 12.5 mg PO QID [facility]; Protocol Last Admin: 11/25/23 13:56 Dose: 12.5 mg Documented By: MARV Sodium Chloride (0.9 % Sodium Chloride Flush 3 Ml Syringe) 3 ml IVFLUSH QSHIFT [facility] Last Admin: 11/25/23 09:04 Dose: 3 ml Documented By: MARV Torsemide (Torsemide 20 Mg Tablet) 20 mg PO DAILY [facility]; Protocol Last Admin: 11/25/23 09:05 Dose: 20 mg Documented By: MARV Labs 11/23/23 08:00 11/24/23 12:47 Assessment and Plan (1) Elevated liver function tests: Status: Acute (2) Acute UTI: Status: Acute Plan 78F presented with fabd pain /chestpain ,afib Chest tightness: Troponin flat, possibly related to AFib with RVR episode hr -has some bradycardia intermittent digoxin levels 0.6 asymptomatic d/w cardiology evaluation-pain atypical ,no futher intervention . Continue eliquis,added lopressorback,hold digoxin due to bradycadia. elevated lfts'/abd pain ct abd and abd us - cholelithasis hepatitis serlogies -neg mrcp-MRCP with choledocholithiasis Gi eval -patient will need ercp earlier next week abd pain/uti: ua -pyuria /bacteruria blood culture neg @ 24 hrs and urine cultures pending abd ct scan:has colelithasis with elevated lft;s mild bladder thickening continue iv ceftriaxone surgery eval-has hx of acalculous cholecystitis ,now abd pain ,has colelithasis with elevated lft;s, [id number] showed choledocholithiasis and Gi rec - need ercp earlier next week. chornic diastolic chf continue diuretics. htn: boderline elevated now hypotensive, holding meds not needed for rate control conrado:cpap depression/anxiety ativan dvt prophylaxis - hold eliquis,switched to lovenox. Pt eval full code reason for continued hospitalization for workup 24-48 hrs of chest pain, also need IV antibiotics for UTI and monitoring for abdominal pain, cultures, expert consultation and ercp next week Quality Stroke Does the patient have a stroke diagnosis?: No VTE Prior VTE?: No VTE Risk Level:: Medical - moderate - high VTE Device Contraindication: N/A - Device Ordered VTE Drug Contraindication: N/A - Med Ordered
[2023-11-25] MEDS: metroNIDAZOLE/NS 500 MG/100 ML PIGGYBACK 100 MG IV (22:37)
[2023-11-25] MEDS: Atorvastatin Calcium 10 MG TABLET PO (22:37)
[2023-11-26] VITALS (7 sets, daily range): BP systolic 95–130; BP diastolic 63–69; PULSE 56–93; RESP 18–20; TEMP 36.1–37.2; O2SAT 92–98
[2023-11-26] MEDS: Acetaminophen 325 MG TABLET 650 MG PO (00:09)
[2023-11-26] MEDS: diphenhydrAMINE HCL 25 MG CAPSULE PO (00:09)
[2023-11-26] MEDS: Melatonin 3 MG TABLET 6 MG PO (00:50)
[2023-11-26] MEDS: LORazepam 1 MG TABLET PO (00:51)
[2023-11-26] MEDS: 0.9 % Sodium Chloride Flush 3 ML SYRINGE IVFLUSH ×3 (07:31→20:21)
[2023-11-26] MEDS: metroNIDAZOLE/NS 500 MG/100 ML PIGGYBACK 100 MG IV ×2 (08:35→20:21)
[2023-11-26] MEDS: Escitalopram Oxalate 10 MG TABLET PO (08:35)
[2023-11-26] MEDS: Torsemide 20 MG TABLET PO (08:35)
[2023-11-26] MEDS: Metoprolol Tartrate 12.5 MG HALFTAB PO ×4 (08:35→20:21)
[2023-11-26] MEDS: Enoxaparin Sodium 80 MG/0.8 ML SYRINGE SUBCUT (08:35)
[2023-11-26] MEDS: Gabapentin 300 MG CAPSULE PO ×3 (08:35→20:21)
[2023-11-26 10:17] LABS: Anion Gap 13 (12-20); Blood Urea Nitrogen 14 mg/dL (9-16); Calcium 9.1 mg/dL (8.4-10.2); Carbon Dioxide 32 mmol/L (22-29); Chloride 94 mmol/L (96-108); Creatinine Clr Calc Pharmacy 75.8; Estimated Glomerular Filt Rate > 60; Glucose Random 124 mg/dL (60-115); Potassium 2.6 mmol/L (3.3-5.1); Sodium 136 mmol/L (135-145)
[2023-11-26] MEDS: Potassium Chloride ER 20 MEQ TAB.ER.PRT 40 MEQ PO (10:38)
[2023-11-26 10:46] LABS: Magnesium 1.8 mg/dL (1.6-2.6)
[2023-11-26] MEDS: Potassium Chloride/H20 10 MEQ/100 ML PIGGYBACK 100 MEQ IV ×4 (10:47→14:55)
--- NOTE | 2023-11-26 12:27 | P.PNIM_ITS ---
Subjective Subjective Date of Service: 11/26/23 Interval History: Hypokalemia,? Choledocholithiasis Review of Systems no abd pain , no fever s generally fatigued. Physical Exam 2 Vital Signs: Vital Signs: Last Vital Signs Temp 97.4 F 11/26/23 11:49 Pulse 56 11/26/23 11:49 Resp 20 11/26/23 11:49 BP 123/63 11/26/23 11:49 Pulse Ox 96 11/26/23 11:49 O2 Del Method Room Air 11/26/23 11:49 BMI result Body Mass Index 28.2 Appearance: Alert.? Oriented X3. cvs: rrr, [id number] , no murmur res: clear to auscultation ,no rhonchii or wheezing abd: no rebound or guarding ,nt, bs present. ext pulses present , no cyanosis. neuro: axo3 , nonfocal. Objective Data Active Medications Acetaminophen (Acetaminophen 325 Mg Tablet) 650 mg PO BEDTIME PRN PRN Reason: MILD PAIN/SLEEP Last Admin: 11/26/23 00:09 Dose: 650 mg Documented By: MARIA ESTHER Atorvastatin Calcium (Atorvastatin Calcium 10 Mg Tablet) 10 mg PO BEDTIME [facility] Last Admin: 11/25/23 22:37 Dose: 10 mg Documented By: MARIA ESTHER Diphenhydramine HCl (Diphenhydramine Hcl 25 Mg Capsule) 25 mg PO BEDTIME PRN PRN Reason: MILD PAIN/SLEEP Last Admin: 11/26/23 00:09 Dose: 25 mg Documented By: MARIA ESTHER Comments: pt request tylenol and Bendadryl to help sleep Enoxaparin Sodium (Enoxaparin Sodium 80 Mg/0.8 Ml Syringe) 80 mg 1 mg/kg (80 mg) SUBCUT Q12H [facility] Last Admin: 11/26/23 08:35 Dose: 80 mg Documented By: MARV Escitalopram Oxalate (Escitalopram Oxalate 10 Mg Tablet) 10 mg PO DAILY@0900 [facility] Last Admin: 11/26/23 08:35 Dose: 10 mg Documented By: MARV Gabapentin (Gabapentin 300 Mg Capsule) 300 mg PO TID [facility] Last Admin: 11/26/23 08:35 Dose: 300 mg Documented By: MARV Ceftriaxone Sodium 1 gm/ (Sodium Chloride) 50 mls @ 100 mls/hr IV Q24H [facility] Last Infusion: 11/25/23 23:40 Dose: Infused Documented By: MARIA ESTHER Metronidazole (Flagyl) 500 mg in 100 mls @ 100 mls/hr IV BID [facility] Last Infusion: 11/26/23 09:44 Dose: Infused Documented By: MARV Potassium Chloride (Potassium Chloride/H20) 10 meq in 100 mls @ 100 mls/hr IV Q1H [facility] Stop: 11/26/23 14:29 Last Admin: 11/26/23 11:52 Dose: 100 mls/hr Documented By: MARV Lorazepam (Lorazepam 1 Mg Tablet) 1 mg PO BID PRN PRN Reason: Anxiety Last Admin: 11/26/23 00:51 Dose: 1 mg Documented By: MARIA ESTHER Comments: Anxiety Melatonin (Melatonin 3 Mg Tablet) 6 mg PO BEDTIME PRN PRN Reason: Sleep Last Admin: 11/26/23 00:50 Dose: 6 mg Documented By: MARIA ESTHER Comments: Pt takes for insomnia. Metoprolol Tartrate (Metoprolol Tartrate 12.5 Mg Halftab) 12.5 mg PO QID [facility]; Protocol Last Admin: 11/26/23 08:35 Dose: 12.5 mg Documented By: MARV Sodium Chloride (0.9 % Sodium Chloride Flush 3 Ml Syringe) 3 ml IVFLUSH QSHIFT [facility] Last Admin: 11/26/23 07:31 Dose: 3 ml Documented By: MARV Torsemide (Torsemide 20 Mg Tablet) 20 mg PO DAILY [facility]; Protocol Last Admin: 11/26/23 08:35 Dose: 20 mg Documented By: MARV Labs 11/23/23 08:00 11/26/23 08:58 Labs: Laboratory Results - last 24 hr 11/26/23 08:58 Anion Gap 13 Estim Creat Clear Calc 75.8 Estimated GFR > 60 Random Glucose 124 H Calcium 9.1 Magnesium 1.8 Microbiology Microbiology Results: Microbiology 11/21/23 03:26 Blood Culture - Final Blood - Venous No growth after 5 days. 11/21/23 03:26 Blood Culture - Final Blood - Venous No growth after 5 days. Assessment and Plan (1) Elevated liver function tests: Status: Acute (2) Acute UTI: Status: Acute (3) Hypokalemia: Status: Acute Plan 78F presented with fabd pain /chestpain ,afib Chest tightness: Troponin flat, possibly related to AFib with RVR episode hr -has some bradycardia intermittent digoxin levels 0.6 asymptomatic d/w cardiology evaluation-pain atypical ,no futher intervention . Continue eliquis,added lopressorback,hold digoxin due to bradycadia. elevated lfts'/abd pain ct abd and abd us - cholelithasis hepatitis serlogies -neg mrcp-MRCP with choledocholithiasis Gi eval -patient will need ercp earlier next week severe hypokalemia: aggressive elecetrolytic replacement po an div added abd pain/uti: ua -pyuria /bacteruria blood culture neg @ 24 hrs and urine cultures -ecoli abd ct scan:has colelithasis with elevated lft;s mild bladder thickening continue iv ceftriaxone surgery eval-has hx of acalculous cholecystitis ,now abd pain ,has colelithasis with elevated lft;s, [id number] showed choledocholithiasis and Gi rec - need ercp earlier next week. chornic diastolic chf continue diuretics. htn: boderline elevated now hypotensive, holding meds not needed for rate control conrado:cpap depression/anxiety ativan dvt prophylaxis - hold eliquis,switched to lovenox. Pt eval full code reason for continued hospitalization for workup possible choledocholithasis , hypokaelmia,uti - also need IV antibiotics for UTI and aggressive electrolytic replacements ,renal function and electrolytic replcements ,tele monitoring cultures, expert consultation and ercp next week Quality Stroke Does the patient have a stroke diagnosis?: No VTE Prior VTE?: No VTE Risk Level:: Medical - moderate - high VTE Device Contraindication: N/A - Device Ordered VTE Drug Contraindication: N/A - Med Ordered
--- NOTE | 2023-11-26 15:30 | P.PNGS_ITS ---
Subjective Subjective Date of Service: 11/26/23 Interval history: pt feeling ok - is for ERCP tomorrow , complaining iv as getting iv K for low [place] Physical Exam 2 Vital Signs: Vital Signs: Last Vital Signs Temp 97.4 F 11/26/23 11:49 Pulse 56 11/26/23 11:49 Resp 20 11/26/23 11:49 BP 123/63 11/26/23 11:49 Pulse Ox 96 11/26/23 11:49 O2 Del Method Room Air 11/26/23 11:49 BMI result Body Mass Index 28.2 Const: General: cooperative, healthy appearing, comfortable and no acute distress GI: Other: abdomen is soft mild upper tenderness no guarding Objective Data Active Medications Acetaminophen (Acetaminophen 325 Mg Tablet) 650 mg PO BEDTIME PRN PRN Reason: MILD PAIN/SLEEP Last Admin: 11/26/23 00:09 Dose: 650 mg Documented By: MARIA ESTHER Atorvastatin Calcium (Atorvastatin Calcium 10 Mg Tablet) 10 mg PO BEDTIME [facility] Last Admin: 11/25/23 22:37 Dose: 10 mg Documented By: MARIA ESTHER Diphenhydramine HCl (Diphenhydramine Hcl 25 Mg Capsule) 25 mg PO BEDTIME PRN PRN Reason: MILD PAIN/SLEEP Last Admin: 11/26/23 00:09 Dose: 25 mg Documented By: MARIA ESTHER Comments: pt request tylenol and Bendadryl to help sleep Escitalopram Oxalate (Escitalopram Oxalate 10 Mg Tablet) 10 mg PO DAILY@0900 [facility] Last Admin: 11/26/23 08:35 Dose: 10 mg Documented By: MARV Gabapentin (Gabapentin 300 Mg Capsule) 300 mg PO TID [facility] Last Admin: 11/26/23 14:55 Dose: 300 mg Documented By: MARV Ceftriaxone Sodium 1 gm/ (Sodium Chloride) 50 mls @ 100 mls/hr IV Q24H [facility] Last Infusion: 11/25/23 23:40 Dose: Infused Documented By: MARIA ESTHER Metronidazole (Flagyl) 500 mg in 100 mls @ 100 mls/hr IV BID [facility] Last Infusion: 11/26/23 09:44 Dose: Infused Documented By: MARV Lorazepam (Lorazepam 1 Mg Tablet) 1 mg PO BID PRN PRN Reason: Anxiety Last Admin: 04/21/24 00:51 Dose: 1 mg Documented By: MARIA ESTHER Comments: Anxiety Melatonin (Melatonin 3 Mg Tablet) 6 mg PO BEDTIME PRN PRN Reason: Sleep Last Admin: 11/26/23 00:50 Dose: 6 mg Documented By: MARIA ESTHER Comments: Pt takes for insomnia. Metoprolol Tartrate (Metoprolol Tartrate 12.5 Mg Halftab) 12.5 mg PO QID [facility]; Protocol Last Admin: 11/26/23 13:24 Dose: 12.5 mg Documented By: MARV Sodium Chloride (0.9 % Sodium Chloride Flush 3 Ml Syringe) 3 ml IVFLUSH QSHIFT [facility] Last Admin: 11/26/23 14:55 Dose: 3 ml Documented By: MARV Torsemide (Torsemide 20 Mg Tablet) 20 mg PO DAILY [facility]; Protocol Last Admin: 11/26/23 08:35 Dose: 20 mg Documented By: MARV Labs 11/23/23 08:00 11/26/23 08:58 Labs: Laboratory Results - last 24 hr 11/26/23 08:58 Anion Gap 13 Estim Creat Clear Calc 75.8 Estimated GFR > 60 Random Glucose 124 H Calcium 9.1 Magnesium 1.8 Microbiology Microbiology Results: Microbiology 11/21/23 03:26 Blood Culture - Final Blood - Venous No growth after 5 days. 11/21/23 03:26 Blood Culture - Final Blood - Venous No growth after 5 days. Procedures Date of Service Date of Service: 11/26/23 Progress Note: A&P Assessment and plan (1) Gallstone: Status: Acute Assessment and Plan: Patient is doing okay vitals are good and her abdominal exam is okay. Her potassium was low so they are correcting that. Patient should be ready for ERCP to remove common bile duct stones tomorrow and then at some point undergo laparoscopic cholecystectomy. She understands and agrees. Time Spent With Patient Time: Total time managing care of this patient today ____ minutes. Quality Stroke Does the patient have a stroke diagnosis?: No VTE Prior VTE?: No VTE Risk Level:: Medical - moderate - high VTE Device Contraindication: N/A - Device Ordered VTE Drug Contraindication: N/A - Med Ordered
[2023-11-26 17:28] LABS: Potassium 3.9 mmol/L (3.3-5.1)
[2023-11-26] MEDS: Lactulose 20 GM/30 ML SOLUTION 30 GM PO (17:43)
--- NOTE | 2023-11-26 18:08 | PC.NURSE ---
pt stated that she didn't have BM for 4 days , lactulose ordred bu DR Chatman , pt medicated , abdomen soft positive BS , no abdominal pain . Ambulated on the hallway ,tachycardia up to 150 . pt denied chest pain, no sob, no palpitation. tachycardia started when pt started coughing
[2023-11-26] MEDS: Atorvastatin Calcium 10 MG TABLET PO (20:21)
[2023-11-26] MEDS: Docusate Sodium 100 MG CAPSULE PO (20:21)
--- NOTE | 2023-11-26 23:36 | PC.NURSE ---
Assumed care of pt at 19:15. Handoff report given to oncoming RN at 23:00. Please see shift assessment, tasks, and MAR for full details.
[2023-11-27] VITALS (14 sets, daily range): BP systolic 101–164; BP diastolic 55–91; PULSE 62–92; RESP 12–20; TEMP 36.1–36.9; O2SAT 92–97
[2023-11-27] MEDS: Melatonin 3 MG TABLET 6 MG PO (00:03)
[2023-11-27] MEDS: Acetaminophen 325 MG TABLET 650 MG PO ×2 (00:03→20:20)
[2023-11-27] MEDS: cefTRIAXone sodium 1 GM in 0.9 % Sodium Chloride 50 ML IV ×2 (00:04→23:09)
[2023-11-27] MEDS: LORazepam 1 MG TABLET PO (00:04)
[2023-11-27 07:08] LABS: Anion Gap 12 (12-20); Blood Urea Nitrogen 14 mg/dL (9-16); Calcium 9.2 mg/dL (8.4-10.2); Carbon Dioxide 30 mmol/L (22-29); Chloride 98 mmol/L (96-108); Creatinine Clr Calc Pharmacy 69.5; Estimated Glomerular Filt Rate > 60; Glucose Random 88 mg/dL (60-115); Potassium 3.3 mmol/L (3.3-5.1); Sodium 137 mmol/L (135-145)
[2023-11-27] MEDS: Gabapentin 300 MG CAPSULE PO ×3 (08:15→20:20)
[2023-11-27] MEDS: Metoprolol Tartrate 12.5 MG HALFTAB PO ×3 (08:15→20:20)
[2023-11-27] MEDS: Torsemide 20 MG TABLET PO (08:15)
[2023-11-27] MEDS: Potassium Chloride/H20 10 MEQ/100 ML PIGGYBACK 100 MEQ IV ×2 (08:15→11:19)
[2023-11-27] MEDS: Escitalopram Oxalate 10 MG TABLET PO (08:15)
[2023-11-27] MEDS: metroNIDAZOLE/NS 500 MG/100 ML PIGGYBACK 100 MG IV ×2 (09:34→20:21)
--- NOTE | 2023-11-27 11:19 | P.CONAN_ITS ---
HPI - Anesthesia Eval Consult details Narrative: for ERCP [facility] Active Problems Active Problems: All Active Problems Hypokalemia (Acute) Elevated liver function tests (Acute) Persistent atrial fibrillation (Acute) Precordial chest pain (Acute) Gallstone (Acute) Acute UTI (Acute) Atrial fibrillation with rapid ventricular response (Acute) Hospital discharge follow-up (Acute) CAD (coronary artery disease) (Acute) HTN (hypertension) (Acute) Atrial fibrillation (Acute) Heart failure with preserved ejection fraction (Acute) Acalculous cholecystitis (Acute) Past Medical History Medical History Fall Atrial fibrillation Acalculous cholecystitis Bacteriuria Obesity CAD (coronary artery disease) Acute hypercapnic respiratory failure due to obstructive sleep apnea Sick sinus syndrome Symptomatic bradycardia Sleep apnea PAF (paroxysmal atrial fibrillation) Heart failure with preserved ejection fraction CHF (congestive heart failure) 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 Essential hypertension Throat cancer Myocardial infarct Afib HTN (hypertension) Family History Family History Daughter Breast cancer Surgical History Surgical History Atrial fibrillation status post cardioversion History of Problems with Anesthesia: No Social History Social History Household Members: Children Housing: House Do you presently have visiting nurse or other home services: No Alcohol intake: never Comment: restraints Patient Tobacco Use Status: Former Tobacco user Years Smoked: 41 yrs Advance Directives Date on File: 01/13/21 service: No Current occupational status: disabled Meds Allergies Allergy/AdvReac Type Severity Reaction Status Date / Time amiodarone Allergy Severe Difficulty Verified 11/20/23 19:51 Breathing Active Medications: Current Medications Acetaminophen (Acetaminophen 325 Mg Tablet) 650 mg PO BEDTIME PRN PRN Reason: MILD PAIN/SLEEP Last Admin: 11/27/23 00:03 Dose: 650 mg Atorvastatin Calcium (Atorvastatin Calcium 10 Mg Tablet) 10 mg PO BEDTIME DEE Last Admin: 11/26/23 20:21 Dose: 10 mg Diphenhydramine HCl (Diphenhydramine Hcl 25 Mg Capsule) 25 mg PO BEDTIME PRN PRN Reason: MILD PAIN/SLEEP Last Admin: 11/26/23 00:09 Dose: 25 mg Docusate Sodium (Docusate Sodium 100 Mg Capsule) 100 mg PO BID [facility] Last Admin: 11/27/23 08:30 Dose: Not Given Escitalopram Oxalate (Escitalopram Oxalate 10 Mg Tablet) 10 mg PO DAILY@0900 [facility] Last Admin: 11/27/23 08:15 Dose: 10 mg Gabapentin (Gabapentin 300 Mg Capsule) 300 mg PO TID [facility] Last Admin: 11/27/23 08:15 Dose: 300 mg Ceftriaxone Sodium 1 gm/ (Sodium Chloride) 50 mls @ 100 mls/hr IV Q24H [facility] Last Infusion: 11/27/23 00:52 Dose: Infused Metronidazole (Flagyl) 500 mg in 100 mls @ 100 mls/hr IV BID [facility] Last Admin: 11/27/23 09:34 Dose: 100 mls/hr Lorazepam (Lorazepam 1 Mg Tablet) 1 mg PO BID PRN PRN Reason: Anxiety Last Admin: 11/27/23 00:04 Dose: 1 mg Melatonin (Melatonin 3 Mg Tablet) 6 mg PO BEDTIME PRN PRN Reason: Sleep Last Admin: 11/27/23 00:03 Dose: 6 mg Metoprolol Tartrate (Metoprolol Tartrate 12.5 Mg Halftab) 12.5 mg PO QID [facility]; Protocol Last Admin: 11/27/23 08:15 Dose: 12.5 mg Sodium Chloride (0.9 % Sodium Chloride Flush 3 Ml Syringe) 3 ml IVFLUSH QSHIFT [facility] Last Admin: 11/27/23 08:30 Dose: Not Given Torsemide (Torsemide 20 Mg Tablet) 20 mg PO DAILY [facility]; Protocol Last Admin: 11/27/23 08:15 Dose: 20 mg Home Medications ?Medication ?Instructions ?Recorded ?Confirmed ?Last Taken ?Type simvastatin 10 mg tablet 10 mg PO BEDTIME 01/16/22 11/21/23 11/19/23 History escitalopram oxalate 10 mg tablet 10 mg PO DAILY@0900 03/31/22 11/21/23 11/20/23 History gabapentin 300 mg capsule 300 mg PO TID 03/31/22 11/21/23 11/20/23 History lorazepam 1 mg tablet 1 mg PO BID PRN Anxiety 03/31/22 11/21/23 Unknown History torsemide 20 mg tablet 20 mg PO DAILY 03/31/22 11/21/23 11/20/23 History melatonin 3 mg tablet 6 mg PO BEDTIME PRN Sleep 03/24/23 11/21/23 04/14/23 History diphenhydramine 25 1 tab PO BEDTIME PRN Pain 11/21/23 11/21/23 Unknown History mg-acetaminophen 500 mg tablet (Acetaminophen PM) metoprolol tartrate 25 mg tablet 25 mg PO BID 11/21/23 11/21/23 11/20/23 History Exam Height,Weight and Vital Signs: Height 5 ft 6 in Weight 79.2 kg Last Vital Signs Temp 97.6 F 11/27/23 11:02 Pulse 68 11/27/23 11:02 Resp 20 11/27/23 11:02 BP 101/66 11/27/23 11:02 Pulse Ox 95 11/27/23 11:02 O2 Del Method Room Air 11/27/23 11:02 Pertinent Lab Results Pertinent Lab Results: Laboratory Tests 11/20/23 11/21/23 11/21/23 20:24 02:18 03:26 WBC 12.1 H RBC 4.06 L Hgb 12.9 Hct 38.1 MCV 93.8 MCH 31.8 MCHC 33.9 RDW 14.0 Plt Count 251 MPV 9.5 Immature Gran % (Auto) 0.4 Neut % (Auto) 90.2 H Lymph % (Auto) 5.1 L [place] % (Auto) 3.8 Eos % (Auto) 0.3 Baso % (Auto) 0.2 Lymph # (Auto) 0.6 L [place] # (Auto) 0.5 Eos # (Auto) 0.0 Baso # (Auto) 0.0 Abs Immat Gran (auto) 0.05 H Absolute Neuts (auto) 10.9 H Absolute Nucleated RBC 0.000 Nucleated RBC % (auto) 0.0 Smear Tech's Comments VERIFIED Hold Purple Top Sodium 138 Potassium 3.8 Chloride 98 Carbon Dioxide 31 H Anion Gap 13 BUN 14 Creatinine 0.85 Estim Creat Clear Calc 59.7 Estimated GFR > 60 Random Glucose 164 H Fasting Glucose Lactic Acid 1.6 Calcium 8.7 D Magnesium 2.0 Total Bilirubin 1.1 H Direct Bilirubin AST 253 H ALT 99 H Alkaline Phosphatase 98 Troponin I High Sens 8.0 B-Natriuretic Peptide 277 H Total Protein 6.7 Albumin 3.5 Lipase 56 TSH Free T4 Urine Color Dark Yellow Urine Appearance Cloudy Urine pH 5.5 Ur Specific [place] 1.015 Urine Protein Negative Urine Glucose (UA) Negative Urine Ketones Negative Urine Blood Negative Urine Nitrite Negative Ur Leukocyte Esterase Moderate (2+) H Urine RBC 0-2 Urine WBC >50 H Ur Squamous Epith Cells 11-20 Urine Bacteria 4+ Hyaline Casts 3-5 Digoxin Hepatitis A IgM Ab Hep Bs Antigen Hep Bs Antibody Hep B Core Total Ab Hepatitis C Ab (EIA) Influenza Type A (PCR) NEGATIVE Influenza Type B (PCR) NEGATIVE RSV RNA Qual (PCR) NEGATIVE SARS-CoV-2 RNA (RT-PCR) NEGATIVE 11/21/23 11/21/23 11/22/23 04:40 08:41 12:11 WBC RBC Hgb Hct MCV MCH MCHC RDW Plt Count MPV Immature Gran % (Auto) Neut % (Auto) Lymph % (Auto) [place] % (Auto) Eos % (Auto) Baso % (Auto) Lymph # (Auto) [place] # (Auto) Eos # (Auto) Baso # (Auto) Abs Immat Gran (auto) Absolute Neuts (auto) Absolute Nucleated RBC Nucleated RBC % (auto) Smear Tech's Comments Hold Purple Top Sodium Potassium Chloride Carbon Dioxide Anion Gap BUN Creatinine Estim Creat Clear Calc Estimated GFR Random Glucose Fasting Glucose Lactic Acid Calcium Magnesium Total Bilirubin 2.4 H Direct Bilirubin 1.8 H AST 83 H ALT 86 H Alkaline Phosphatase 112 Troponin I High Sens 15.0 D B-Natriuretic Peptide Total Protein 6.7 Albumin 3.4 L Lipase TSH Free T4 Urine Color Urine Appearance Urine pH Ur Specific [place] Urine Protein Urine Glucose (UA) Urine Ketones Urine Blood Urine Nitrite Ur Leukocyte Esterase Urine RBC Urine WBC Ur Squamous Epith Cells Urine Bacteria Hyaline Casts Digoxin 0.6 L Hepatitis A IgM Ab Hep Bs Antigen Hep Bs Antibody Hep B Core Total Ab Hepatitis C Ab (EIA) Influenza Type A (PCR) Influenza Type B (PCR) RSV RNA Qual (PCR) SARS-CoV-2 RNA (RT-PCR) 11/23/23 11/24/23 11/26/23 08:00 12:47 08:58 WBC 6.7 RBC 4.02 L Hgb 12.6 Hct 37.5 MCV 93.3 MCH 31.3 MCHC 33.6 RDW 14.4 Plt Count 198 MPV 9.9 Immature Gran % (Auto) 0.3 Neut % (Auto) 81.0 H Lymph % (Auto) 9.5 L [place] % (Auto) 6.9 Eos % (Auto) 1.8 Baso % (Auto) 0.5 Lymph # (Auto) 0.6 L [place] # (Auto) 0.5 Eos # (Auto) 0.1 Baso # (Auto) 0.0 Abs Immat Gran (auto) 0.02 Absolute Neuts (auto) 5.4 Absolute Nucleated RBC 0.000 Nucleated RBC % (auto) 0.0 Smear Tech's Comments Hold Purple Top Sodium 138 136 Potassium 3.0 L D 3.1 L 2.6 L* Chloride 99 94 L Carbon Dioxide 30 H 32 H Anion Gap 12 13 BUN 14 14 Creatinine 0.68 0.67 Estim Creat Clear Calc 74.7 75.8 Estimated GFR > 60 > 60 Random Glucose 124 H Fasting Glucose 90 Lactic Acid Calcium 8.9 9.1 Magnesium 1.9 1.8 Total Bilirubin 1.4 H Direct Bilirubin AST 55 H ALT 64 H Alkaline Phosphatase 113 Troponin I High Sens B-Natriuretic Peptide Total Protein 6.4 L Albumin 3.2 L Lipase TSH 2.58 Free T4 0.91 Urine Color Urine Appearance Urine pH Ur Specific [place] Urine Protein Urine Glucose (UA) Urine Ketones Urine Blood Urine Nitrite Ur Leukocyte Esterase Urine RBC Urine WBC Ur Squamous Epith Cells Urine Bacteria Hyaline Casts Digoxin 0.6 L Hepatitis A IgM Ab Nonreactive Hep Bs Antigen Negative Hep Bs Antibody NONREACTIVE Hep B Core Total Ab Nonreactive Hepatitis C Ab (EIA) Nonreactive Influenza Type A (PCR) Influenza Type B (PCR) RSV RNA Qual (PCR) SARS-CoV-2 RNA (RT-PCR) 11/26/23 11/27/23 17:08 06:24 WBC RBC Hgb Hct MCV MCH MCHC RDW Plt Count MPV Immature Gran % (Auto) Neut % (Auto) Lymph % (Auto) [place] % (Auto) Eos % (Auto) Baso % (Auto) Lymph # (Auto) [place] # (Auto) Eos # (Auto) Baso # (Auto) Abs Immat Gran (auto) Absolute Neuts (auto) Absolute Nucleated RBC Nucleated RBC % (auto) Smear Tech's Comments Hold Purple Top SEE NOTE Sodium 137 Potassium 3.9 D 3.3 Chloride 98 Carbon Dioxide 30 H Anion Gap 12 BUN 14 Creatinine 0.73 Estim Creat Clear Calc 69.5 Estimated GFR > 60 Random Glucose 88 Fasting Glucose Lactic Acid Calcium 9.2 Magnesium Total Bilirubin Direct Bilirubin AST ALT Alkaline Phosphatase Troponin I High Sens B-Natriuretic Peptide Total Protein Albumin Lipase TSH Free T4 Urine Color Urine Appearance Urine pH Ur Specific [place] Urine Protein Urine Glucose (UA) Urine Ketones Urine Blood Urine Nitrite Ur Leukocyte Esterase Urine RBC Urine WBC Ur Squamous Epith Cells Urine Bacteria Hyaline Casts Digoxin Hepatitis A IgM Ab Hep Bs Antigen Hep Bs Antibody Hep B Core Total Ab Hepatitis C Ab (EIA) Influenza Type A (PCR) Influenza Type B (PCR) RSV RNA Qual (PCR) SARS-CoV-2 RNA (RT-PCR) Airway Mallampati Class: III (s/p laryngeal surgery and radio therapy for laryngeal ca) TM Dist: >3cm Neck ROM: Limited Heart: rrr Lungs: cta Assessment and Plan Assessment Anesthesia Assessment: Anesthesia Plan Discussed and Chart Reviewed Final Anesthetic Review History of Problems with Anesthesia: No NPO: Yes ASA Class: III (laryngeal ca) and Emergency Final Preanesthetic Review: No Changes in Pt Med Stat, Meds/Allgs Chart Reviewed, Consent Obtained/Reviewed and Anes Risks/Benef Reviewed Patient Risk: Intermediate Procedure Risk: Intermediate Anesthetic Plan Anesthetic Plan: GA Disposition: Standard PACU
--- NOTE | 2023-11-27 12:17 | PC.NURSE ---
telepack in hosp gown pocket pt buttock and coccyx red repositioned denies pain a/ox3
--- NOTE | 2023-11-27 12:18 | P.PNIM_ITS ---
Subjective Subjective Date of Service: 11/27/23 Interval History: Hypokalemia,? Choledocholithiasis Review of Systems no abd pain , no fever s generally fatigued. Physical Exam 2 Vital Signs: Vital Signs: Last Vital Signs Temp 98.4 F 11/27/23 12:11 Pulse 66 11/27/23 12:11 Resp 20 11/27/23 12:11 BP 105/59 L 11/27/23 12:11 Pulse Ox 94 11/27/23 12:11 O2 Del Method Room Air 11/27/23 12:11 BMI result Body Mass Index 28.2 Appearance: Alert. Oriented X3. cvs: rrr, [id number] , no murmur res: clear to auscultation ,no rhonchii or wheezing abd: no rebound or guarding ,nt, bs present. ext pulses present , no cyanosis. neuro: axo3 , nonfocal. Objective Data Active Medications Acetaminophen (Acetaminophen 325 Mg Tablet) 650 mg PO BEDTIME PRN PRN Reason: MILD PAIN/SLEEP Last Admin: 11/27/23 00:03 Dose: 650 mg Documented By: ZAINA Atorvastatin Calcium (Atorvastatin Calcium 10 Mg Tablet) 10 mg PO BEDTIME [facility] Last Admin: 11/26/23 20:21 Dose: 10 mg Documented By: CHI Diphenhydramine HCl (Diphenhydramine Hcl 25 Mg Capsule) 25 mg PO BEDTIME PRN PRN Reason: MILD PAIN/SLEEP Last Admin: 11/26/23 00:09 Dose: 25 mg Documented By: MARIA ESTHER Comments: pt request tylenol and Bendadryl to help sleep Docusate Sodium (Docusate Sodium 100 Mg Capsule) 100 mg PO BID [facility] Last Admin: 11/27/23 08:30 Dose: Not Given Documented By: JASMYNE Non-Admin Reason: loose stools Escitalopram Oxalate (Escitalopram Oxalate 10 Mg Tablet) 10 mg PO DAILY@0900 [facility] Last Admin: 11/27/23 08:15 Dose: 10 mg Documented By: JASMYNE Gabapentin (Gabapentin 300 Mg Capsule) 300 mg PO TID [facility] Last Admin: 11/27/23 08:15 Dose: 300 mg Documented By: JASMYNE Ceftriaxone Sodium 1 gm/ (Sodium Chloride) 50 mls @ 100 mls/hr IV Q24H [facility] Last Infusion: 11/27/23 00:52 Dose: Infused Documented By: ZAINA Metronidazole (Flagyl) 500 mg in 100 mls @ 100 mls/hr IV BID DEE Last Infusion: 11/27/23 11:32 Dose: Infused Documented By: JASMYNE Lorazepam (Lorazepam 1 Mg Tablet) 1 mg PO BID PRN PRN Reason: Anxiety Last Admin: 11/27/23 00:04 Dose: 1 mg Documented By: ZAINA Melatonin (Melatonin 3 Mg Tablet) 6 mg PO BEDTIME PRN PRN Reason: Sleep Last Admin: 11/27/23 00:03 Dose: 6 mg Documented By: ZAINA Metoprolol Tartrate (Metoprolol Tartrate 12.5 Mg Halftab) 12.5 mg PO QID [facility]; Protocol Last Admin: 11/27/23 08:15 Dose: 12.5 mg Documented By: JASMYNE Sodium Chloride (0.9 % Sodium Chloride Flush 3 Ml Syringe) 3 ml IVFLUSH QSHIFT [facility] Last Admin: 11/27/23 08:30 Dose: Not Given Documented By: JASMYNE Non-Admin Reason: IV Running Torsemide (Torsemide 20 Mg Tablet) 20 mg PO DAILY [facility]; Protocol Last Admin: 11/27/23 08:15 Dose: 20 mg Documented By: JASMYNE Labs 11/23/23 08:00 11/27/23 06:24 Labs: Laboratory Results - last 24 hr 11/27/23 06:24 Hold Purple Top SEE NOTE Anion Gap 12 Estim Creat Clear Calc 69.5 Estimated GFR > 60 Random Glucose 88 Calcium 9.2 Assessment and Plan (1) Elevated liver function tests: Status: Acute (2) Acute UTI: Status: Acute (3) Hypokalemia: Status: Acute Plan 78F presented with fabd pain /chestpain ,afib Chest tightness: Troponin flat, possibly related to AFib with RVR episode hr -has some bradycardia intermittent digoxin levels 0.6 asymptomatic d/w cardiology evaluation-pain atypical ,no futher intervention . Continue eliquis,added lopressorback,hold digoxin due to bradycadia. elevated lfts'/abd pain ct abd and abd us - cholelithasis hepatitis serlogies -neg mrcp-MRCP with choledocholithiasis Gi eval -patient will need ercp earlier next week severe hypokalemia: aggressive elecetrolytic replacement po an div added abd pain/uti: ua -pyuria /bacteruria blood culture neg @ 24 hrs and urine cultures -ecoli abd ct scan:has colelithasis with elevated lft;s mild bladder thickening continue iv ceftriaxone surgery eval-has hx of acalculous cholecystitis ,now abd pain ,has colelithasis with elevated lft;s, [id number] showed choledocholithiasis and Gi rec - need ercp today surgery following chornic diastolic chf continue diuretics. htn: boderline elevated now hypotensive, holding meds not needed for rate control conrado:cpap depression/anxiety ativan dvt prophylaxis - hold eliquis,switched to lovenox. Pt eval full code reason for continued hospitalization for workup possible choledocholithasis , hypokaelmia,uti - also need IV antibiotics for UTI and aggressive electrolytic replacements ,renal function and electrolytic replcements ,tele monitoring cultures, expert consultation and ercp next week Quality Stroke Does the patient have a stroke diagnosis?: No VTE Prior VTE?: No VTE Risk Level:: Medical - moderate - high VTE Device Contraindication: N/A - Device Ordered VTE Drug Contraindication: N/A - Med Ordered
--- NOTE | 2023-11-27 12:29 | P.PNGI_ITS ---
Subjective Subjective Date of Service: 11/27/23 Interval History: crampy upper abdominal pain no n/v no diarrhea some constipation Critical Care Time (minutes): 0 Physical Exam 2 Vital Signs: Vital Signs: Last Vital Signs Temp 98.4 F 11/27/23 12:11 Pulse 66 11/27/23 12:11 Resp 20 11/27/23 12:11 BP 105/59 L 11/27/23 12:11 Pulse Ox 94 11/27/23 12:11 O2 Del Method Room Air 11/27/23 12:11 BMI result Body Mass Index 28.2 EXAM: GENERAL: The patient is well developed and nontoxic. VITAL SIGNS:see workflow HEENT: Nonicteric sclerae, PERRLA, EOMI. Oropharynx clear. Moist mucous membranes. Conjunctivae appear well perfused. No thyroid mass. CHEST: Chest wall is nontender. HEART: Regular rate and rhythm without murmurs. LUNGS: Clear to auscultation bilaterally. ABDOMEN: Soft, positive bowel sounds, mildly tender upper abdomen , no organomegaly.no flank tenderness SKIN: No rash, no excessive bruising, petechiae, or purpura. NEUROLOGIC: Cranial nerves II-XII intact without motor/sensory deficit. Psych: normal affect Objective Data Labs 11/23/23 08:00 11/27/23 06:24 Labs: Laboratory Results - last 24 hr 11/26/23 11/27/23 17:08 06:24 Hold Purple Top SEE NOTE Sodium 137 Potassium 3.9 D 3.3 Chloride 98 Carbon Dioxide 30 H Anion Gap 12 BUN 14 Creatinine 0.73 Estim Creat Clear Calc 69.5 Estimated GFR > 60 Random Glucose 88 Calcium 9.2 Microbiology Microbiology Results: Microbiology 11/21/23 03:26 Blood - Venous Blood Culture - Final No growth after 5 days. 11/21/23 03:26 Blood - Venous Blood Culture - Final No growth after 5 days. 11/21/23 Unknown Urine clean catch - Urine sherwood top Urine Culture - Final Escherichia coli Corynebacterium species Procedures Date of Service Date of Service: 11/27/23 Progress Note: A&P Assessment and plan (1) Choledocholithiasis: Status: Acute Plan 1/ symptomatic choledocholithiasis, imaging w/ multiple stones in CBd PLAN: /1 ERCP today with plan for removal of stones --discussed risks and benefits with pt inc risk of pancreatitis, bleeding, technical factors, --risk of cholangitis w/o intervention and ongoing pain, secondary biliary cirrhosis Time Spent With Patient Time: Total time managing care of this patient today ____ minutes. Quality Stroke Does the patient have a stroke diagnosis?: No VTE Prior VTE?: No VTE Risk Level:: Medical - moderate - high VTE Device Contraindication: N/A - Device Ordered VTE Drug Contraindication: N/A - Med Ordered
--- NOTE | 2023-11-27 12:33 | MHC.SHP ---
Pre-Procedural Eval Section A - 24 Hr Update-Section A only Date of Service: 11/27/23 The patient is an INPATIENT: Yes The patient has been examined within 24 hours of the surgical procedure. The History & Physical has been completed within 30 days and I have reviewed it.: Yes Section B - Complete if H&P > 30 days Chief Complaint: chest pain Afib Allergies: Allergies Allergy/AdvReac Type Severity Reaction Status Date / Time amiodarone Allergy Severe Difficulty Verified 11/20/23 19:51 Breathing Plan I have reviewed the history and physical and performed a pertinent physical examination on my patient. No changes have occurred unless specified. Time Spent With Patient Time: Total time managing care of this patient today ____ minutes.
--- NOTE | 2023-11-27 13:45 | W.PM.OPN ---
Operative Note Operative Note Date of Service: 11/27/23 Narrative: Description:?Endoscopic retrograde cholangiopancreatography (ERCP) PROCEDURE:?Endoscopic retrograde cholangiopancreatography with sphincterotomy, stone extraction, intraop cholangiogram and PD stent placement INDICATION FOR THE PROCEDURE:?Patient with a history of abn LFT and choledocholithiasis MEDICATIONS:?General anesthesia. Indomethacin 100 mg AR The risks of the procedure were made aware to the patient and consisted of medication reaction, bleeding, perforation, aspiration, and post ERCP pancreatitis. DESCRIPTION OF PROCEDURE:?After informed consent and appropriate sedation, the duodenoscope was inserted into the oropharynx, down the esophagus, and into the stomach. The scope was then advanced through the pylorus to the ampulla. The tome and wire was advanced into what initially appeared to be the CBD but with contrast was shown to be the PD. A Clyde precut was then done and the tome was angulated and reintroduced and entered into the CBD. A cholangiogram suggested several filling defects. A 12 mm balllon was exchanged and swept thru the CBD several times with several stones being removed. An occlusion cholangiogram was negative and the duct was draining easily. A basket was also used but no stone or sludge material retrieved. I then placed a 5 Fr x 3 cm PD stent into the PD to prevent post ERCP pancreatitis. FINDINGS: 1. choledocholithiais RECOMMENDATIONS: 1. NPO except ice chips today. if no abdominal pain can advance to clears tonight 2. KUB in 72 hrs, if stent still in place remove endoscopically.
--- NOTE | 2023-11-27 13:58 | MHC.CM.PN ---
Pt has ERCP toannt, PT rec. home PT, DC plan is home with home care services from [facility]. CM will follow and assist with DC plan.
--- NOTE | 2023-11-27 14:20 | P.PNGS_ITS ---
Subjective Subjective Date of Service: 11/27/23 Interval history: Uneventful evening. No abdominal complaints. Patient is tentatively scheduled for ERCP later today. Physical Exam 2 Vital Signs: Vital Signs: Last Vital Signs Temp 97.0 F 11/27/23 14:00 Pulse 88 11/27/23 14:15 Resp 18 11/27/23 14:15 BP 152/79 H 11/27/23 14:15 Pulse Ox 94 11/27/23 14:15 O2 Del Method Room Air 11/27/23 14:15 O2 Flow Rate 8 11/27/23 14:00 BMI result Body Mass Index 28.2 GI: Other: Abdomen is soft, benign Objective Data Active Medications Acetaminophen (Acetaminophen 325 Mg Tablet) 650 mg PO BEDTIME PRN PRN Reason: MILD PAIN/SLEEP Last Admin: 11/27/23 00:03 Dose: 650 mg Documented By: ZAINA Atorvastatin Calcium (Atorvastatin Calcium 10 Mg Tablet) 10 mg PO BEDTIME [facility] Last Admin: 11/26/23 20:21 Dose: 10 mg Documented By: CHI Diphenhydramine HCl (Diphenhydramine Hcl 25 Mg Capsule) 25 mg PO BEDTIME PRN PRN Reason: MILD PAIN/SLEEP Last Admin: 11/26/23 00:09 Dose: 25 mg Documented By: MARIA ESTHER Comments: pt request tylenol and Bendadryl to help sleep Docusate Sodium (Docusate Sodium 100 Mg Capsule) 100 mg PO BID [facility] Last Admin: 11/27/23 08:30 Dose: Not Given Documented By: JASMYNE Non-Admin Reason: loose stools Escitalopram Oxalate (Escitalopram Oxalate 10 Mg Tablet) 10 mg PO DAILY@0900 [facility] Last Admin: 11/27/23 08:15 Dose: 10 mg Documented By: JASMYNE Gabapentin (Gabapentin 300 Mg Capsule) 300 mg PO TID [facility] Last Admin: 11/27/23 08:15 Dose: 300 mg Documented By: JASMYNE Ceftriaxone Sodium 1 gm/ (Sodium Chloride) 50 mls @ 100 mls/hr IV Q24H [facility] Last Infusion: 11/27/23 00:52 Dose: Infused Documented By: ZAINA Metronidazole (Flagyl) 500 mg in 100 mls @ 100 mls/hr IV BID [facility] Last Infusion: 11/27/23 11:32 Dose: Infused Documented By: JASMYNE Lorazepam (Lorazepam 1 Mg Tablet) 1 mg PO BID PRN PRN Reason: Anxiety Last Admin: 11/27/23 00:04 Dose: 1 mg Documented By: ZAINA Melatonin (Melatonin 3 Mg Tablet) 6 mg PO BEDTIME PRN PRN Reason: Sleep Last Admin: 11/27/23 00:03 Dose: 6 mg Documented By: ZAINA Metoprolol Tartrate (Metoprolol Tartrate 12.5 Mg Halftab) 12.5 mg PO QID [facility]; Protocol Last Admin: 11/27/23 08:15 Dose: 12.5 mg Documented By: JASMYNE Sodium Chloride (0.9 % Sodium Chloride Flush 3 Ml Syringe) 3 ml IVFLUSH QSHIFT [facility] Last Admin: 11/27/23 08:30 Dose: Not Given Documented By: JASMYNE Non-Admin Reason: IV Running Torsemide (Torsemide 20 Mg Tablet) 20 mg PO DAILY [facility]; Protocol Last Admin: 11/27/23 08:15 Dose: 20 mg Documented By: JASMYNE Labs 11/23/23 08:00 11/27/23 06:24 Labs: Laboratory Results - last 24 hr 11/27/23 06:24 Hold Purple Top SEE NOTE Anion Gap 12 Estim Creat Clear Calc 69.5 Estimated GFR > 60 Random Glucose 88 Calcium 9.2 Procedures Date of Service Date of Service: 11/27/23 Progress Note: A&P Assessment and plan (1) Choledocholithiasis: Status: Acute (2) Elevated liver function tests: Status: Acute (3) Gallstone: Status: Acute Plan Patient is for ERCP today and tentatively scheduled for lap edd for Monday. Time Spent With Patient Time: Total time managing care of this patient today ____ minutes. Quality Stroke Does the patient have a stroke diagnosis?: No VTE Prior VTE?: No VTE Risk Level:: Medical - moderate - high VTE Device Contraindication: N/A - Device Ordered VTE Drug Contraindication: N/A - Med Ordered
[2023-11-27] MEDS: 0.9 % Sodium Chloride Flush 3 ML SYRINGE IVFLUSH ×2 (15:09→20:21)
[2023-11-27] MEDS: Docusate Sodium 100 MG CAPSULE PO (20:20)
[2023-11-27] MEDS: Atorvastatin Calcium 10 MG TABLET PO (20:21)
[2023-11-28] VITALS (8 sets, daily range): BP systolic 91–141; BP diastolic 59–69; PULSE 58–73; RESP 18–20; TEMP 36.2–36.9; O2SAT 94–100
[2023-11-28] MEDS: LORazepam 1 MG TABLET PO ×2 (00:43→12:12)
[2023-11-28] MEDS: Melatonin 3 MG TABLET 6 MG PO (00:43)
[2023-11-28 07:17] LABS: Hematocrit 37.6 % (37.0-47.0); Hemoglobin 12.9 g/dl (12.0-16.0); Mean Corpuscular HGB Conc 34.3 g/dl (31.0-35.0); Mean Corpuscular Hemoglobin 31.5 pg (27.0-33.0); Mean Corpuscular Volume 91.9 fL (80.0-98.0); Mean Platelet Volume 10.2 fL (9.4-12.3); Platelet Count 245 X10*3/uL (160-400); Red Blood Count 4.09 X10*6/uL (4.20-5.50); Red Cell Distribution Width 13.7 % (11.0-16.0); White Blood Count 11.8 X10*3/uL (4.8-10.8)
[2023-11-28 08:00] LABS: Anion Gap 15 (12-20); Blood Urea Nitrogen 19 mg/dL (9-16); Calcium 8.9 mg/dL (8.4-10.2); Carbon Dioxide 29 mmol/L (22-29); Chloride 95 mmol/L (96-108); Creatinine Clr Calc Pharmacy 64.3; Estimated Glomerular Filt Rate > 60; Glucose Random 106 mg/dL (60-115); Potassium 3.8 mmol/L (3.3-5.1); Sodium 135 mmol/L (135-145)
--- NOTE | 2023-11-28 08:34 | PM.PNGS ---
Subjective Subjective Date of Service: 11/28/23 Interval history: Status post ERCP yesterday with multiple gallstones retrieved and stent placed. Uneventful evening. Mild abdominal discomfort in the epigastrium. Physical Exam Vital Signs: Vital Signs: Last Vital Signs Temp 97.1 F 11/28/23 07:32 Pulse 73 11/28/23 07:32 Resp 18 11/28/23 07:32 BP 113/65 11/28/23 07:32 Pulse Ox 96 11/28/23 07:32 O2 Del Method Room Air 11/28/23 07:32 O2 Flow Rate 8 11/27/23 14:00 BMI result Body Mass Index 28.2 GI: Other: Abdomen is soft. Minimal epigastric tenderness. No evidence of any guarding, rebound, or rigidity. Objective Data Active Medications Acetaminophen (Acetaminophen 325 Mg Tablet) 650 mg PO BEDTIME PRN PRN Reason: MILD PAIN/SLEEP Last Admin: 11/27/23 20:20 Dose: 650 mg Documented By: CHI Atorvastatin Calcium (Atorvastatin Calcium 10 Mg Tablet) 10 mg PO BEDTIME [facility] Last Admin: 11/27/23 20:21 Dose: 10 mg Documented By: CHI Diphenhydramine HCl (Diphenhydramine Hcl 25 Mg Capsule) 25 mg PO BEDTIME PRN PRN Reason: MILD PAIN/SLEEP Last Admin: 11/26/23 00:09 Dose: 25 mg Documented By: MARIA ESTHER Comments: pt request tylenol and Bendadryl to help sleep Docusate Sodium (Docusate Sodium 100 Mg Capsule) 100 mg PO BID [facility] Last Admin: 11/27/23 20:20 Dose: 100 mg Documented By: CHI Escitalopram Oxalate (Escitalopram Oxalate 10 Mg Tablet) 10 mg PO DAILY@0900 [facility] Last Admin: 11/27/23 08:15 Dose: 10 mg Documented By: JASMYNE Gabapentin (Gabapentin 300 Mg Capsule) 300 mg PO TID [facility] Last Admin: 11/27/23 20:20 Dose: 300 mg Documented By: CHI Ceftriaxone Sodium 1 gm/ (Sodium Chloride) 50 mls @ 100 mls/hr IV Q24H [facility] Last Infusion: 11/27/23 23:39 Dose: Infused Documented By: CHI Metronidazole (Flagyl) 500 mg in 100 mls @ 100 mls/hr IV BID [facility] Last Infusion: 11/27/23 21:20 Dose: Infused Documented By: CHI Lorazepam (Lorazepam 1 Mg Tablet) 1 mg PO BID PRN PRN Reason: Anxiety Last Admin: 11/28/23 00:43 Dose: 1 mg Documented By: CHI Melatonin (Melatonin 3 Mg Tablet) 6 mg PO BEDTIME PRN PRN Reason: Sleep Last Admin: 11/28/23 00:43 Dose: 6 mg Documented By: CHI Metoprolol Tartrate (Metoprolol Tartrate 12.5 Mg Halftab) 12.5 mg PO QID [facility]; Protocol Last Admin: 11/27/23 20:20 Dose: 12.5 mg Documented By: CHI Sodium Chloride (0.9 % Sodium Chloride Flush 3 Ml Syringe) 3 ml IVFLUSH QSHIFT [facility] Last Admin: 11/27/23 20:21 Dose: 3 ml Documented By: CHI Torsemide (Torsemide 20 Mg Tablet) 20 mg PO DAILY [facility]; Protocol Last Admin: 11/27/23 08:15 Dose: 20 mg Documented By: JASMYNE Labs 11/28/23 06:27 11/28/23 06:27 Labs: Laboratory Results - last 24 hr 11/28/23 06:27 MCV 91.9 MCH 31.5 MCHC 34.3 RDW 13.7 Plt Count 245 MPV 10.2 Absolute Nucleated RBC 0.000 Nucleated RBC % (auto) 0.0 Anion Gap 15 Estim Creat Clear Calc 64.3 Estimated GFR > 60 Random Glucose 106 Calcium 8.9 Procedures Date of Service Date of Service: 11/28/23 Progress Note: A&P Assessment and plan (1) Choledocholithiasis: Status: Acute Plan Risks, benefits, alternatives laparoscopic possible open cholecystectomy for tomorrow were reviewed with the patient included but not limited to bleeding, infection, recurrence of symptoms, numbness, pain, scarring, bowel or bile duct injury or leak and the patient wishes to proceed. All questions answered. Arrangements made for this for tomorrow morning. Time Spent With Patient Time: Total time managing care of this patient today ____ minutes. Quality Stroke Does the patient have a stroke diagnosis?: No VTE Prior VTE?: No VTE Risk Level:: Medical - moderate - high VTE Device Contraindication: N/A - Device Ordered VTE Drug Contraindication: N/A - Med Ordered
--- NOTE | 2023-11-28 08:42 | HO.POSTANES ---
Post Anesthesia Evaluation Post Anesthesia Evaluation Date of Service: 11/28/23 Vital Signs: Vital Signs Temp Pulse Resp BP Pulse Ox O2 Del Method 11/28/23 07:32 97.1 F 73 18 113/65 96 Room Air 11/28/23 03:14 97.9 F 67 18 123/65 94 Room Air 11/27/23 23:33 97.7 F 62 20 103/62 96 Room Air Anesthesia: General Endotracheal-GETA Mental Status: Awake Pain Control: Satisfactory Nausea/Vomiting: None Hydration: Adequate Anesthesia-Related Issues: No Anes. Related Issues
[2023-11-28] MEDS: metroNIDAZOLE/NS 500 MG/100 ML PIGGYBACK 100 MG IV ×2 (09:00→22:08)
[2023-11-28] MEDS: Torsemide 20 MG TABLET PO (09:00)
[2023-11-28] MEDS: 0.9 % Sodium Chloride Flush 3 ML SYRINGE IVFLUSH ×2 (09:00→16:09)
[2023-11-28] MEDS: Metoprolol Tartrate 12.5 MG HALFTAB PO ×2 (09:01→12:12)
[2023-11-28] MEDS: Escitalopram Oxalate 10 MG TABLET PO (09:01)
[2023-11-28] MEDS: Gabapentin 300 MG CAPSULE PO ×3 (09:01→22:06)
[2023-11-28] MEDS: Docusate Sodium 100 MG CAPSULE PO (09:01)
--- NOTE | 2023-11-28 11:11 | P.PNIM_ITS ---
Subjective Subjective Date of Service: 11/28/23 Interval History: Underwent ERCP yesterday with sphincterotomy, stone extraction and stent placement. No acute events overnight Physical Exam 2 Vital Signs: Vital Signs: Last Vital Signs Temp 97.1 F 11/28/23 07:32 Pulse 73 11/28/23 07:32 Resp 18 11/28/23 07:32 BP 113/65 11/28/23 09:00 Pulse Ox 96 11/28/23 07:32 O2 Del Method Room Air 11/28/23 07:32 O2 Flow Rate 8 11/27/23 14:00 BMI result Body Mass Index 28.2 Appearance: Alert. Oriented X3. cvs: rrr, [id number] , no murmur res: clear to auscultation ,no rhonchii or wheezing abd: no rebound or guarding ,nt, bs present. ext pulses present , no cyanosis. neuro: axo3 , nonfocal. Objective Data Active Medications Acetaminophen (Acetaminophen 325 Mg Tablet) 650 mg PO BEDTIME PRN PRN Reason: MILD PAIN/SLEEP Last Admin: 11/27/23 20:20 Dose: 650 mg Documented By: CHI Atorvastatin Calcium (Atorvastatin Calcium 10 Mg Tablet) 10 mg PO BEDTIME [facility] Last Admin: 11/27/23 20:21 Dose: 10 mg Documented By: CHI Diphenhydramine HCl (Diphenhydramine Hcl 25 Mg Capsule) 25 mg PO BEDTIME PRN PRN Reason: MILD PAIN/SLEEP Last Admin: 11/26/23 00:09 Dose: 25 mg Documented By: MARIA ESTHER Comments: pt request tylenol and Bendadryl to help sleep Docusate Sodium (Docusate Sodium 100 Mg Capsule) 100 mg PO BID [facility] Last Admin: 11/28/23 09:01 Dose: 100 mg Documented By: TAMIKA Escitalopram Oxalate (Escitalopram Oxalate 10 Mg Tablet) 10 mg PO DAILY@0900 [facility] Last Admin: 11/28/23 09:01 Dose: 10 mg Documented By: TAMIKA Gabapentin (Gabapentin 300 Mg Capsule) 300 mg PO TID [facility] Last Admin: 11/28/23 09:01 Dose: 300 mg Documented By: TAMIKA Ceftriaxone Sodium 1 gm/ (Sodium Chloride) 50 mls @ 100 mls/hr IV Q24H [facility] Last Infusion: 11/27/23 23:39 Dose: Infused Documented By: CHI Metronidazole (Flagyl) 500 mg in 100 mls @ 100 mls/hr IV BID [facility] Last Infusion: 11/28/23 10:11 Dose: Infused Documented By: TAMIKA Lorazepam (Lorazepam 1 Mg Tablet) 1 mg PO BID PRN PRN Reason: Anxiety Last Admin: 11/28/23 00:43 Dose: 1 mg Documented By: CHI Melatonin (Melatonin 3 Mg Tablet) 6 mg PO BEDTIME PRN PRN Reason: Sleep Last Admin: 11/28/23 00:43 Dose: 6 mg Documented By: CHI Metoprolol Tartrate (Metoprolol Tartrate 12.5 Mg Halftab) 12.5 mg PO QID [facility]; Protocol Last Admin: 11/28/23 09:01 Dose: 12.5 mg Documented By: TAMIKA Sodium Chloride (0.9 % Sodium Chloride Flush 3 Ml Syringe) 3 ml IVFLUSH QSHIFT [facility] Last Admin: 11/28/23 09:00 Dose: 3 ml Documented By: TAMIKA Torsemide (Torsemide 20 Mg Tablet) 20 mg PO DAILY [facility]; Protocol Last Admin: 11/28/23 09:00 Dose: 20 mg Documented By: TAMIKA Labs 11/28/23 06:27 11/28/23 06:27 Labs: Laboratory Results - last 24 hr 11/28/23 06:27 MCV 91.9 MCH 31.5 MCHC 34.3 RDW 13.7 Plt Count 245 MPV 10.2 Absolute Nucleated RBC 0.000 Nucleated RBC % (auto) 0.0 Anion Gap 15 Estim Creat Clear Calc 64.3 Estimated GFR > 60 Random Glucose 106 Calcium 8.9 Assessment and Plan (1) Choledocholithiasis: Status: Acute Plan 78F presented with abdominal pain Choledocholithiasis Underwent ERCP on 11/26 with sphincterotomy, multiple gallstones removal and stent placement Continue empiric IV antibiotics Plans for laparoscopic cholecystectomy on 11/28 Severe hypokalemia: Repleted Acute UTI Urine culture with pansensitive E coli. On empiric antibiotics Chornic diastolic chf continue po diuretics. Essential hypertension On p.o. metoprolol ANITA CPAP at bedtime Depression/anxiety ativan Paroxysmal atrial fibrillation Anticoagulation held for surgery. Digoxin held for bradycardia DVT prophylaxis: SCDs. Hold Lovenox for surgery Pt eval full code Reason for continued hospitalization: IV antibiotics, plan for laparoscopic cholecystectomy tomorrow Quality Stroke Does the patient have a stroke diagnosis?: No VTE Prior VTE?: No VTE Risk Level:: Medical - moderate - high VTE Device Contraindication: N/A - Device Ordered VTE Drug Contraindication: Treatment Not Indicated
[2023-11-28] MEDS: Atorvastatin Calcium 10 MG TABLET PO (22:06)
[2023-11-29] VITALS (15 sets, daily range): BP systolic 101–146; BP diastolic 54–86; PULSE 61–95; RESP 16–20; TEMP 36.1–37; O2SAT 92–100
[2023-11-29] MEDS: Acetaminophen 325 MG TABLET 650 MG PO ×2 (00:20→22:25)
[2023-11-29] MEDS: diphenhydrAMINE HCL 25 MG CAPSULE PO (00:22)
[2023-11-29] MEDS: LORazepam 1 MG TABLET PO (00:22)
[2023-11-29] MEDS: Melatonin 3 MG TABLET 6 MG PO (00:22)
[2023-11-29] MEDS: cefTRIAXone sodium 1 GM in 0.9 % Sodium Chloride 50 ML IV ×2 (00:23→22:26)
[2023-11-29 06:33] LABS: MANUAL DIFF FLAG NO
[2023-11-29 06:53] LABS: Basophils Absolute Auto 0.1 X10*3/uL (0.0-0.2); Basophils Percent Auto 0.7 % (0-2); Eosinophils Absolute Auto 0.2 X10*3/uL (0.0-0.4); Hematocrit 37.6 % (37.0-47.0); Hemoglobin 12.7 g/dl (12.0-16.0); Imm Gran Abs Auto 0.06 X10*3/uL (0.00-0.03); Imm Gran Pct Auto 0.7 % (0.0-0.4); Lymphocytes Absolute Auto 1.3 X10*3/uL (1.2-4.9); Lymphocytes Percent Auto 15.7 % (20-40); Mean Corpuscular HGB Conc 33.8 g/dl (31.0-35.0); Mean Corpuscular Hemoglobin 31.4 pg (27.0-33.0); Mean Corpuscular Volume 92.8 fL (80.0-98.0); Monocytes Absolute Auto 0.5 X10*3/uL (0.1-1.2); Monocytes Percent Auto 6.2 % (2-11); Neutrophils Absolute Auto 6.4 x10*3/uL (2.0-8.3); Neutrophils Percent Auto 74.7 % (45-73); Platelet Count 249 X10*3/uL (160-400); Red Blood Count 4.05 X10*6/uL (4.20-5.50); White Blood Count 8.6 X10*3/uL (4.8-10.8)
[2023-11-29 06:58] LABS: Anion Gap 12 (12-20); Blood Urea Nitrogen 15 mg/dL (9-16); Calcium 8.9 mg/dL (8.4-10.2); Carbon Dioxide 31 mmol/L (22-29); Chloride 97 mmol/L (96-108); Creatinine Clr Calc Pharmacy 68.6; Estimated Glomerular Filt Rate > 60; Glucose Random 82 mg/dL (60-115); Potassium 3.1 mmol/L (3.3-5.1); Sodium 137 mmol/L (135-145)
--- NOTE | 2023-11-29 07:19 | P.CONAN_ITS ---
[facility] Active Problems Active Problems: All Active Problems Choledocholithiasis (Acute) Hypokalemia (Acute) Elevated liver function tests (Acute) Persistent atrial fibrillation (Acute) Precordial chest pain (Acute) Gallstone (Acute) Acute UTI (Acute) Atrial fibrillation with rapid ventricular response (Acute) Hospital discharge follow-up (Acute) CAD (coronary artery disease) (Acute) HTN (hypertension) (Acute) Atrial fibrillation (Acute) Heart failure with preserved ejection fraction (Acute) Acalculous cholecystitis (Acute) Past Medical History Medical History Fall Atrial fibrillation Acalculous cholecystitis Bacteriuria Obesity CAD (coronary artery disease) Acute hypercapnic respiratory failure due to obstructive sleep apnea Sick sinus syndrome Symptomatic bradycardia Sleep apnea PAF (paroxysmal atrial fibrillation) Heart failure with preserved ejection fraction CHF (congestive heart failure) 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 Essential hypertension Throat cancer Myocardial infarct Afib HTN (hypertension) Functional capacity: uses cane/walker Family History Family History Daughter Breast cancer Family history of problems with anesthesia: No Surgical History Surgical History Atrial fibrillation status post cardioversion History of Problems with Anesthesia: No Social History Social History Household Members: Children Housing: House Do you presently have visiting nurse or other home services: No Alcohol intake: never Comment: restraints Patient Tobacco Use Status: Former Tobacco user Years Smoked: 41 yrs Advance Directives Date on File: 01/13/21 service: No Current occupational status: disabled Meds Allergies Allergy/AdvReac Type Severity Reaction Status Date / Time amiodarone Allergy Severe Difficulty Verified 11/20/23 19:51 Breathing Active Medications: Current Medications Acetaminophen (Acetaminophen 325 Mg Tablet) 650 mg PO BEDTIME PRN PRN Reason: MILD PAIN/SLEEP Last Admin: 11/29/23 00:20 Dose: 650 mg Atorvastatin Calcium (Atorvastatin Calcium 10 Mg Tablet) 10 mg PO BEDTIME DEE Last Admin: 11/28/23 22:06 Dose: 10 mg Diphenhydramine HCl (Diphenhydramine Hcl 25 Mg Capsule) 25 mg PO BEDTIME PRN PRN Reason: MILD PAIN/SLEEP Last Admin: 11/29/23 00:22 Dose: 25 mg Docusate Sodium (Docusate Sodium 100 Mg Capsule) 100 mg PO BID [facility] Last Admin: 11/28/23 22:15 Dose: Not Given Escitalopram Oxalate (Escitalopram Oxalate 10 Mg Tablet) 10 mg PO DAILY@0900 [facility] Last Admin: 11/28/23 09:01 Dose: 10 mg Fentanyl (Fentanyl Citrate/Pf 100 Mcg/2 Ml Vial) 25 mcg IVPUSH Q5M PRN; Protocol PRN Reason: Pain, Moderate(Pain Scale 4-6) Stop: 11/29/23 13:18 Gabapentin (Gabapentin 300 Mg Capsule) 300 mg PO TID [facility] Last Admin: 11/28/23 22:06 Dose: 300 mg Hydromorphone HCl (Hydromorphone Hcl 0.5 Mg/0.5 Ml Syringe) 0.5 mg IVPUSH Q5M PRN; Protocol PRN Reason: Pain, Severe (Pain Scale 7-10) Stop: 11/29/23 13:18 Ceftriaxone Sodium 1 gm/ (Sodium Chloride) 50 mls @ 100 mls/hr IV Q24H [facility] Last Infusion: 11/29/23 01:17 Dose: Infused Metronidazole (Flagyl) 500 mg in 100 mls @ 100 mls/hr IV BID [facility] Last Infusion: 11/28/23 23:10 Dose: Infused Lorazepam (Lorazepam 1 Mg Tablet) 1 mg PO BID PRN PRN Reason: Anxiety Last Admin: 11/29/23 00:22 Dose: 1 mg Melatonin (Melatonin 3 Mg Tablet) 6 mg PO BEDTIME PRN PRN Reason: Sleep Last Admin: 11/29/23 00:22 Dose: 6 mg Metoprolol Tartrate (Metoprolol Tartrate 12.5 Mg Halftab) 12.5 mg PO QID [facility]; Protocol Last Admin: 11/28/23 22:08 Dose: Not Given Sodium Chloride (0.9 % Sodium Chloride Flush 3 Ml Syringe) 3 ml IVFLUSH QSHIFT [facility] Last Admin: 11/29/23 01:10 Dose: Not Given Torsemide (Torsemide 20 Mg Tablet) 20 mg PO DAILY [facility]; Protocol Last Admin: 11/28/23 09:00 Dose: 20 mg Home Medications ?Medication ?Instructions ?Recorded ?Confirmed ?Last Taken ?Type simvastatin 10 mg tablet 10 mg PO BEDTIME 01/16/22 11/21/23 11/19/23 History escitalopram oxalate 10 mg tablet 10 mg PO DAILY@0900 03/31/22 11/21/23 11/20/23 History gabapentin 300 mg capsule 300 mg PO TID 03/31/22 11/21/23 11/20/23 History lorazepam 1 mg tablet 1 mg PO BID PRN Anxiety 03/31/22 11/21/23 Unknown History torsemide 20 mg tablet 20 mg PO DAILY 03/31/22 11/21/23 11/20/23 History melatonin 3 mg tablet 6 mg PO BEDTIME PRN Sleep 03/24/23 11/21/23 04/14/23 History diphenhydramine 25 1 tab PO BEDTIME PRN Pain 11/21/23 11/21/23 Unknown History mg-acetaminophen 500 mg tablet (Acetaminophen PM) metoprolol tartrate 25 mg tablet 25 mg PO BID 11/21/23 11/21/23 11/20/23 History Exam Height,Weight and Vital Signs: Height 5 ft 6 in Weight 79.2 kg Last Vital Signs Temp 98.1 F 11/29/23 06:41 Pulse 61 11/29/23 06:41 Resp 16 11/29/23 06:41 BP 113/66 11/29/23 06:41 Pulse Ox 92 11/29/23 06:41 O2 Del Method Room Air 11/29/23 06:41 O2 Flow Rate 8 11/27/23 14:00 Pertinent Lab Results Pertinent Lab Results: Laboratory Tests 11/20/23 11/21/23 11/21/23 20:24 02:18 03:26 WBC 12.1 H RBC 4.06 L Hgb 12.9 Hct 38.1 MCV 93.8 MCH 31.8 MCHC 33.9 RDW 14.0 Plt Count 251 MPV 9.5 Immature Gran % (Auto) 0.4 Neut % (Auto) 90.2 H Lymph % (Auto) 5.1 L [place] % (Auto) 3.8 Eos % (Auto) 0.3 Baso % (Auto) 0.2 Lymph # (Auto) 0.6 L [place] # (Auto) 0.5 Eos # (Auto) 0.0 Baso # (Auto) 0.0 Abs Immat Gran (auto) 0.05 H Absolute Neuts (auto) 10.9 H Absolute Nucleated RBC 0.000 Nucleated RBC % (auto) 0.0 Smear Tech's Comments VERIFIED Hold Purple Top Sodium 138 Potassium 3.8 Chloride 98 Carbon Dioxide 31 H Anion Gap 13 BUN 14 Creatinine 0.85 Estim Creat Clear Calc 59.7 Estimated GFR > 60 Random Glucose 164 H Fasting Glucose Lactic Acid 1.6 Calcium 8.7 D Magnesium 2.0 Total Bilirubin 1.1 H Direct Bilirubin AST 253 H ALT 99 H Alkaline Phosphatase 98 Troponin I High Sens 8.0 B-Natriuretic Peptide 277 H Total Protein 6.7 Albumin 3.5 Lipase 56 TSH Free T4 Urine Color Dark Yellow Urine Appearance Cloudy Urine pH 5.5 Ur Specific [place] 1.015 Urine Protein Negative Urine Glucose (UA) Negative Urine Ketones Negative Urine Blood Negative Urine Nitrite Negative Ur Leukocyte Esterase Moderate (2+) H Urine RBC 0-2 Urine WBC >50 H Ur Squamous Epith Cells 11-20 Urine Bacteria 4+ Hyaline Casts 3-5 Digoxin Hepatitis A IgM Ab Hep Bs Antigen Hep Bs Antibody Hep B Core Total Ab Hepatitis C Ab (EIA) Influenza Type A (PCR) NEGATIVE Influenza Type B (PCR) NEGATIVE RSV RNA Qual (PCR) NEGATIVE SARS-CoV-2 RNA (RT-PCR) NEGATIVE 11/21/23 11/21/23 11/22/23 04:40 08:41 12:11 WBC RBC Hgb Hct MCV MCH MCHC RDW Plt Count MPV Immature Gran % (Auto) Neut % (Auto) Lymph % (Auto) [place] % (Auto) Eos % (Auto) Baso % (Auto) Lymph # (Auto) [place] # (Auto) Eos # (Auto) Baso # (Auto) Abs Immat Gran (auto) Absolute Neuts (auto) Absolute Nucleated RBC Nucleated RBC % (auto) Smear Tech's Comments Hold Purple Top Sodium Potassium Chloride Carbon Dioxide Anion Gap BUN Creatinine Estim Creat Clear Calc Estimated GFR Random Glucose Fasting Glucose Lactic Acid Calcium Magnesium Total Bilirubin 2.4 H Direct Bilirubin 1.8 H AST 83 H ALT 86 H Alkaline Phosphatase 112 Troponin I High Sens 15.0 D B-Natriuretic Peptide Total Protein 6.7 Albumin 3.4 L Lipase TSH Free T4 Urine Color Urine Appearance Urine pH Ur Specific [place] Urine Protein Urine Glucose (UA) Urine Ketones Urine Blood Urine Nitrite Ur Leukocyte Esterase Urine RBC Urine WBC Ur Squamous Epith Cells Urine Bacteria Hyaline Casts Digoxin 0.6 L Hepatitis A IgM Ab Hep Bs Antigen Hep Bs Antibody Hep B Core Total Ab Hepatitis C Ab (EIA) Influenza Type A (PCR) Influenza Type B (PCR) RSV RNA Qual (PCR) SARS-CoV-2 RNA (RT-PCR) 11/23/23 11/24/23 11/26/23 08:00 12:47 08:58 WBC 6.7 RBC 4.02 L Hgb 12.6 Hct 37.5 MCV 93.3 MCH 31.3 MCHC 33.6 RDW 14.4 Plt Count 198 MPV 9.9 Immature Gran % (Auto) 0.3 Neut % (Auto) 81.0 H Lymph % (Auto) 9.5 L [place] % (Auto) 6.9 Eos % (Auto) 1.8 Baso % (Auto) 0.5 Lymph # (Auto) 0.6 L [place] # (Auto) 0.5 Eos # (Auto) 0.1 Baso # (Auto) 0.0 Abs Immat Gran (auto) 0.02 Absolute Neuts (auto) 5.4 Absolute Nucleated RBC 0.000 Nucleated RBC % (auto) 0.0 Smear Tech's Comments Hold Purple Top Sodium 138 136 Potassium 3.0 L D 3.1 L 2.6 L* Chloride 99 94 L Carbon Dioxide 30 H 32 H Anion Gap 12 13 BUN 14 14 Creatinine 0.68 0.67 Estim Creat Clear Calc 74.7 75.8 Estimated GFR > 60 > 60 Random Glucose 124 H Fasting Glucose 90 Lactic Acid Calcium 8.9 9.1 Magnesium 1.9 1.8 Total Bilirubin 1.4 H Direct Bilirubin AST 55 H ALT 64 H Alkaline Phosphatase 113 Troponin I High Sens B-Natriuretic Peptide Total Protein 6.4 L Albumin 3.2 L Lipase TSH 2.58 Free T4 0.91 Urine Color Urine Appearance Urine pH Ur Specific [place] Urine Protein Urine Glucose (UA) Urine Ketones Urine Blood Urine Nitrite Ur Leukocyte Esterase Urine RBC Urine WBC Ur Squamous Epith Cells Urine Bacteria Hyaline Casts Digoxin 0.6 L Hepatitis A IgM Ab Nonreactive Hep Bs Antigen Negative Hep Bs Antibody NONREACTIVE Hep B Core Total Ab Nonreactive Hepatitis C Ab (EIA) Nonreactive Influenza Type A (PCR) Influenza Type B (PCR) RSV RNA Qual (PCR) SARS-CoV-2 RNA (RT-PCR) 11/26/23 11/27/23 11/28/23 17:08 06:24 06:27 WBC 11.8 H RBC 4.09 L Hgb 12.9 Hct 37.6 MCV 91.9 MCH 31.5 MCHC 34.3 RDW 13.7 Plt Count 245 MPV 10.2 Immature Gran % (Auto) Neut % (Auto) Lymph % (Auto) [place] % (Auto) Eos % (Auto) Baso % (Auto) Lymph # (Auto) [place] # (Auto) Eos # (Auto) Baso # (Auto) Abs Immat Gran (auto) Absolute Neuts (auto) Absolute Nucleated RBC 0.000 Nucleated RBC % (auto) 0.0 Smear Tech's Comments Hold Purple Top SEE NOTE Sodium 137 135 Potassium 3.9 D 3.3 3.8 Chloride 98 95 L Carbon Dioxide 30 H 29 Anion Gap 12 15 BUN 14 19 H Creatinine 0.73 0.79 Estim Creat Clear Calc 69.5 64.3 Estimated GFR > 60 > 60 Random Glucose 88 106 Fasting Glucose Lactic Acid Calcium 9.2 8.9 Magnesium Total Bilirubin Direct Bilirubin AST ALT Alkaline Phosphatase Troponin I High Sens B-Natriuretic Peptide Total Protein Albumin Lipase TSH Free T4 Urine Color Urine Appearance Urine pH Ur Specific [place] Urine Protein Urine Glucose (UA) Urine Ketones Urine Blood Urine Nitrite Ur Leukocyte Esterase Urine RBC Urine WBC Ur Squamous Epith Cells Urine Bacteria Hyaline Casts Digoxin Hepatitis A IgM Ab Hep Bs Antigen Hep Bs Antibody Hep B Core Total Ab Hepatitis C Ab (EIA) Influenza Type A (PCR) Influenza Type B (PCR) RSV RNA Qual (PCR) SARS-CoV-2 RNA (RT-PCR) 11/29/23 06:18 WBC 8.6 RBC 4.05 L Hgb 12.7 Hct 37.6 MCV 92.8 MCH 31.4 MCHC 33.8 RDW 14.0 Plt Count 249 MPV 10.0 Immature Gran % (Auto) 0.7 H Neut % (Auto) 74.7 H Lymph % (Auto) 15.7 L [place] % (Auto) 6.2 Eos % (Auto) 2.0 Baso % (Auto) 0.7 Lymph # (Auto) 1.3 [place] # (Auto) 0.5 Eos # (Auto) 0.2 Baso # (Auto) 0.1 Abs Immat Gran (auto) 0.06 H Absolute Neuts (auto) 6.4 Absolute Nucleated RBC 0.000 Nucleated RBC % (auto) 0.0 Smear Tech's Comments Hold Purple Top Sodium 137 Potassium 3.1 L Chloride 97 Carbon Dioxide 31 H Anion Gap 12 BUN 15 Creatinine 0.74 Estim Creat Clear Calc 68.6 Estimated GFR > 60 Random Glucose 82 Fasting Glucose Lactic Acid Calcium 8.9 Magnesium Total Bilirubin Direct Bilirubin AST ALT Alkaline Phosphatase Troponin I High Sens B-Natriuretic Peptide Total Protein Albumin Lipase TSH Free T4 Urine Color Urine Appearance Urine pH Ur Specific [place] Urine Protein Urine Glucose (UA) Urine Ketones Urine Blood Urine Nitrite Ur Leukocyte Esterase Urine RBC Urine WBC Ur Squamous Epith Cells Urine Bacteria Hyaline Casts Digoxin Hepatitis A IgM Ab Hep Bs Antigen Hep Bs Antibody Hep B Core Total Ab Hepatitis C Ab (EIA) Influenza Type A (PCR) Influenza Type B (PCR) RSV RNA Qual (PCR) SARS-CoV-2 RNA (RT-PCR) Airway Mallampati Class: II TM Dist: >3cm Neck ROM: Full Loose/Missing/Broken Teeth: Yes (edentulous) Heart: reg rate, irr rhythm Lungs: cta Assessment and Plan Assessment Anesthesia Assessment: Anesthesia Plan Discussed and Chart Reviewed Final Anesthetic Review Family History of Problems with Anesthesia: No History of Problems with Anesthesia: No NPO: No ASA Class: III Final Preanesthetic Review: No Changes in Pt Med Stat, Meds/Allgs Chart Reviewed, Consent Obtained/Reviewed and Anes Risks/Benef Reviewed Patient Risk: Intermediate Procedure Risk: Intermediate Anesthetic Plan Anesthetic Plan: GA Disposition: Standard PACU
--- NOTE | 2023-11-29 08:38 | W.PM.OPN ---
Operative Note Operative Note Date of Service: 11/29/23 Narrative: Preoperative diagnosis: [] Choledocholithiasis, status post ERCP Postop diagnosis: [] The same Procedure [] laparoscopic cholecystectomy Surgeon: [] [employer]iel [employer] Financial Analyst: [] Suni Type of Anesthesia: [] General Indication for surgery: [] Thickened gallbladder with marked omental adhesions to it. Intrahepatic gallbladder. Findings: [] Patient was brought to the operating room, placed on operative table in supine position, after an adequate level of general anesthesia was induced, the patient's abdomen which was moderately corpulent was prepped and draped in usual sterile fashion. Using a supraumbilical curvilinear incision, Whiting technique was used to insufflate the abdominal cavity to 15 mm of CO2. Upper midline and right subcostal ports were placed under direct laparoscopic view, the patient placed in reverse Trendelenburg position, tilted to the left. Findings were as noted above. Omental adhesions were swept off the gallbladder with the hilum was approached. Cystic artery and cystic duct were each identified, circumferentially skeletonized, traced directly into the gallbladder and critical view obtained. Each was clipped proximally x2, distally x1, and transected. Cystic duct was of good size which explains the choledocholithiasis. Extra long clips were used for this. Gallbladder was then cauterized from the gallbladder fossa using Bovie. Specimen was placed in an Endo-Catch bag, a retrieved through the umbilical port. Abdominal cavity was copiously irrigated and secured hemostasis. All ports were removed under direct laparoscopic view. Wounds were closed in the following manner; midline wounds had there fascia reapproximated using interrupted 0 Vicryl sutures. Skin wounds were closed using subcuticular 4-0 Vicryl sutures followed by Steri-Strips and sterile dressings. Wounds were infiltrated 0.5% Marcaine at completion. Sponge, needle, and instrument counts reported correct. Patient tolerated the procedure well and emerged from anesthesia stable condition. EBL minimal
[2023-11-29] MEDS: fentaNYL citrate/PF 100 MCG/2 ML VIAL 25 MCG IVPUSH (08:56)
[2023-11-29] MEDS: Gabapentin 300 MG CAPSULE PO ×3 (09:56→20:33)
[2023-11-29] MEDS: Escitalopram Oxalate 10 MG TABLET PO (09:56)
[2023-11-29] MEDS: Metoprolol Tartrate 12.5 MG HALFTAB PO ×3 (09:56→16:26)
[2023-11-29] MEDS: Torsemide 20 MG TABLET PO (09:57)
[2023-11-29] MEDS: Docusate Sodium 100 MG CAPSULE PO (09:57)
[2023-11-29] MEDS: 0.9 % Sodium Chloride Flush 3 ML SYRINGE IVFLUSH ×3 (09:57→20:34)
[2023-11-29] MEDS: Morphine Sulfate 4 MG/ML CARTRIDGE 3 MG IVPUSH (10:18)
[2023-11-29] MEDS: oxyCODONE HCl Immed Release 5 MG TABLET PO ×2 (12:23→22:25)
--- NOTE | 2023-11-29 13:24 | HO.PM.IMPN ---
Subjective Subjective Date of Service: 11/29/23 Interval History: Patient underwent laparoscopic cholecystectomy by Dr. Julian today. Has some post surgical abdominal discomfort Review of Systems Review of Systems: Yes all other systems are reviewed and are negative Physical Exam Vital Signs: Vital Signs: Last Vital Signs Temp 97.4 F 11/29/23 11:28 Pulse 84 11/29/23 11:28 Resp 20 11/29/23 11:28 BP 101/54 L 11/29/23 12:27 Pulse Ox 96 11/29/23 11:28 O2 Del Method Nasal Cannula 11/29/23 11:28 O2 Flow Rate 1.5 11/29/23 11:28 BMI result Body Mass Index 28.2 Appearance: Alert. Oriented X3. cvs: rrr, [id number] , no murmur res: clear to auscultation ,no rhonchii or wheezing abd: no rebound or guarding ,nt, bs present. lap site clean with bandage ext pulses present , no cyanosis. neuro: axo3 , nonfocal. Objective Data Active Medications Acetaminophen (Acetaminophen 325 Mg Tablet) 650 mg PO BEDTIME PRN PRN Reason: MILD PAIN/SLEEP Last Admin: 11/29/23 00:20 Dose: 650 mg Documented By: MAKENZIE Atorvastatin Calcium (Atorvastatin Calcium 10 Mg Tablet) 10 mg PO BEDTIME [facility] Last Admin: 11/28/23 22:06 Dose: 10 mg Documented By: MAKENZIE Diphenhydramine HCl (Diphenhydramine Hcl 25 Mg Capsule) 25 mg PO BEDTIME PRN PRN Reason: MILD PAIN/SLEEP Last Admin: 11/29/23 00:22 Dose: 25 mg Documented By: MAKENZIE Docusate Sodium (Docusate Sodium 100 Mg Capsule) 100 mg PO BID [facility] Last Admin: 11/29/23 09:57 Dose: 100 mg Documented By: JUSTINE Escitalopram Oxalate (Escitalopram Oxalate 10 Mg Tablet) 10 mg PO DAILY@0900 [facility] Last Admin: 11/29/23 09:56 Dose: 10 mg Documented By: JUSTINE Gabapentin (Gabapentin 300 Mg Capsule) 300 mg PO TID [facility] Last Admin: 11/29/23 09:56 Dose: 300 mg Documented By: JUSTINE Ceftriaxone Sodium 1 gm/ (Sodium Chloride) 50 mls @ 100 mls/hr IV Q24H [facility] Last Infusion: 11/29/23 01:17 Dose: Infused Documented By: MAKENZIE Metronidazole (Flagyl) 500 mg in 100 mls @ 100 mls/hr IV BID [facility] Last Admin: 11/29/23 09:51 Dose: Not Given Documented By: JUSTINE Non-Admin Reason: Administered by Anesthesia in OR Lorazepam (Lorazepam 1 Mg Tablet) 1 mg PO BID PRN PRN Reason: Anxiety Last Admin: 11/29/23 00:22 Dose: 1 mg Documented By: MAKENZIE Melatonin (Melatonin 3 Mg Tablet) 6 mg PO BEDTIME PRN PRN Reason: Sleep Last Admin: 11/29/23 00:22 Dose: 6 mg Documented By: MAKENZIE Metoprolol Tartrate (Metoprolol Tartrate 12.5 Mg Halftab) 12.5 mg PO QID [facility]; Protocol Last Admin: 11/29/23 12:23 Dose: 12.5 mg Documented By: SANA Morphine Sulfate (Morphine Sulfate 4 Mg/Ml Cartridge) 3 mg IVPUSH Q4H PRN; Protocol PRN Reason: Pain, Severe (Pain Scale 7-10) Last Admin: 11/29/23 10:18 Dose: 3 mg Documented By: SANA Oxycodone HCl (Oxycodone Hcl Immed Release 5 Mg Tablet) 5 mg PO Q4H PRN PRN Reason: Pain, Moderate(Pain Scale 4-6) Last Admin: 11/29/23 12:23 Dose: 5 mg Documented By: SANA Sodium Chloride (0.9 % Sodium Chloride Flush 3 Ml Syringe) 3 ml IVFLUSH QSHIFT [facility] Last Admin: 11/29/23 09:57 Dose: 3 ml Documented By: JUSTINE Torsemide (Torsemide 20 Mg Tablet) 20 mg PO DAILY [facility]; Protocol Last Admin: 11/29/23 09:57 Dose: 20 mg Documented By: JUSTINE Labs 11/29/23 06:18 11/29/23 06:18 Labs: Laboratory Results - last 24 hr 11/29/23 06:18 MCV 92.8 MCH 31.4 MCHC 33.8 RDW 14.0 Plt Count 249 MPV 10.0 Immature Gran % (Auto) 0.7 H Neut % (Auto) 74.7 H Lymph % (Auto) 15.7 L [place] % (Auto) 6.2 Eos % (Auto) 2.0 Baso % (Auto) 0.7 Lymph # (Auto) 1.3 [place] # (Auto) 0.5 Eos # (Auto) 0.2 Baso # (Auto) 0.1 Abs Immat Gran (auto) 0.06 H Absolute Neuts (auto) 6.4 Absolute Nucleated RBC 0.000 Nucleated RBC % (auto) 0.0 Anion Gap 12 Estim Creat Clear Calc 68.6 Estimated GFR > 60 Random Glucose 82 Calcium 8.9 Assessment and Plan (1) Choledocholithiasis: Status: Acute Plan 78F presented with abdominal pain Choledocholithiasis Underwent ERCP on 11/26 with sphincterotomy, multiple gallstones removal and stent placement Underwent laparoscopic cholecystectomy on 11/28 Severe hypokalemia: Repleted Acute UTI Urine culture with pansensitive E coli. On empiric antibiotics Chornic diastolic chf continue po diuretics. Essential hypertension On p.o. metoprolol ANITA CPAP at bedtime Depression/anxiety ativan Paroxysmal atrial fibrillation Resume anticoagulation on 11/30 as per surgery DVT prophylaxis: SCDs. Pt eval full code Reason for continued hospitalization: Postop management Quality Stroke Does the patient have a stroke diagnosis?: No VTE Prior VTE?: No VTE Risk Level:: Medical - moderate - high VTE Device Contraindication: Treatment Not Indicated VTE Drug Contraindication: N/A - Med Ordered
[2023-11-29] MEDS: Potassium Chloride Packet 20 MEQ PACKET 40 MEQ PO (16:26)
[2023-11-29] MEDS: Atorvastatin Calcium 10 MG TABLET PO (20:33)
[2023-11-29] MEDS: metroNIDAZOLE/NS 500 MG/100 ML PIGGYBACK 100 MG IV (20:33)
[2023-11-30] MEDS: Melatonin 3 MG TABLET 6 MG PO (00:59)
[2023-11-30] MEDS: LORazepam 1 MG TABLET PO (01:00)
[2023-11-30] MEDS: Morphine Sulfate 4 MG/ML CARTRIDGE 3 MG IVPUSH ×3 (01:02→23:50)
[2023-11-30] MEDS: Magnesium Sulfate/H2O 2 GM/50 ML PIGGYBACK IV (03:46)
[2023-11-30 04:00] VITALS: BP 121/65; PULSE 95; RESP 19; TEMP 36.7; O2SAT 95
[2023-11-30 04:07] LABS: Hematocrit 35.8 % (37.0-47.0); Hemoglobin 12.1 g/dl (12.0-16.0); Mean Corpuscular HGB Conc 33.8 g/dl (31.0-35.0); Mean Corpuscular Hemoglobin 31.5 pg (27.0-33.0); Mean Corpuscular Volume 93.2 fL (80.0-98.0); Mean Platelet Volume 9.7 fL (9.4-12.3); Platelet Count 262 X10*3/uL (160-400); Red Blood Count 3.84 X10*6/uL (4.20-5.50); Red Cell Distribution Width 14.2 % (11.0-16.0); White Blood Count 17.1 X10*3/uL (4.8-10.8)
[2023-11-30 04:20] LABS: Anion Gap 13 (12-20); Blood Urea Nitrogen 15 mg/dL (9-16); Calcium 8.7 mg/dL (8.4-10.2); Carbon Dioxide 30 mmol/L (22-29); Chloride 99 mmol/L (96-108); Creatinine Clr Calc Pharmacy 68.6; Estimated Glomerular Filt Rate > 60; Glucose Random 126 mg/dL (60-115); Magnesium 1.7 mg/dL (1.6-2.6); Potassium 3.6 mmol/L (3.3-5.1); Sodium 138 mmol/L (135-145)
[2023-11-30 07:14] VITALS: BP 115/87; PULSE 85; RESP 18; TEMP 36.4; O2SAT 98
--- NOTE | 2023-11-30 07:52 | P.PNGS_ITS ---
Subjective Subjective Date of Service: 11/30/23 Interval history: Tolerating solid diet. Having incisional pain with movement, deep breathing. Otherwise feels ok. OOB to bathroom. Physical Exam 2 Vital Signs: Vital Signs: Last Vital Signs Temp 97.6 F 11/30/23 07:14 Pulse 85 11/30/23 07:14 Resp 18 11/30/23 07:14 BP 115/87 11/30/23 07:14 Pulse Ox 98 11/30/23 07:14 O2 Del Method Room Air 11/30/23 07:14 O2 Flow Rate 1.5 11/29/23 11:28 BMI result Body Mass Index 28.2 Const: General: comfortable, no acute distress and alert O rientation/consciousness: patient oriented x3 Resp: Effort & Inspection: normal respiratory effort GI: Inspection: No distended and Yes incision (dressings c/d/i) Palpation (GI): Soft to palpation, Tenderness to palpation present (GI) (mild incisional) and no guarding Percussion: Yes normal to percussion Skin: General skin exam: no rashes or lesions noted and no jaundice Neuro: General: patient oriented x3 Objective Data Active Medications Acetaminophen (Acetaminophen 325 Mg Tablet) 650 mg PO BEDTIME PRN PRN Reason: MILD PAIN/SLEEP Last Admin: 11/29/23 22:25 Dose: 650 mg Documented By: MY Atorvastatin Calcium (Atorvastatin Calcium 10 Mg Tablet) 10 mg PO BEDTIME [facility] Last Admin: 11/29/23 20:33 Dose: 10 mg Documented By: MAIDA Diphenhydramine HCl (Diphenhydramine Hcl 25 Mg Capsule) 25 mg PO BEDTIME PRN PRN Reason: MILD PAIN/SLEEP Last Admin: 11/29/23 00:22 Dose: 25 mg Documented By: MAKENZIE Docusate Sodium (Docusate Sodium 100 Mg Capsule) 100 mg PO BID [facility] Last Admin: 11/29/23 20:33 Dose: Not Given Documented By: MAIDA Non-Admin Reason: Patient Refused Escitalopram Oxalate (Escitalopram Oxalate 10 Mg Tablet) 10 mg PO DAILY@0900 [facility] Last Admin: 11/29/23 09:56 Dose: 10 mg Documented By: JUSTINE Gabapentin (Gabapentin 300 Mg Capsule) 300 mg PO TID [facility] Last Admin: 11/29/23 20:33 Dose: 300 mg Documented By: MAIDA Ceftriaxone Sodium 1 gm/ (Sodium Chloride) 50 mls @ 100 mls/hr IV Q24H [facility] Last Infusion: 11/29/23 23:54 Dose: Infused Documented By: MAIDA Metronidazole (Flagyl) 500 mg in 100 mls @ 100 mls/hr IV BID [facility] Last Infusion: 11/29/23 22:04 Dose: Infused Documented By: MY Lorazepam (Lorazepam 1 Mg Tablet) 1 mg PO BID PRN PRN Reason: Anxiety Last Admin: 11/30/23 01:00 Dose: 1 mg Documented By: MY Melatonin (Melatonin 3 Mg Tablet) 6 mg PO BEDTIME PRN PRN Reason: Sleep Last Admin: 11/30/23 00:59 Dose: 6 mg Documented By: MY Metoprolol Tartrate (Metoprolol Tartrate 12.5 Mg Halftab) 12.5 mg PO QID [facility]; Protocol Last Admin: 11/29/23 20:33 Dose: Not Given Documented By: MAIDA Non-Admin Reason: per Morphine Sulfate (Morphine Sulfate 4 Mg/Ml Cartridge) 3 mg IVPUSH Q4H PRN; Protocol PRN Reason: Pain, Severe (Pain Scale 7-10) Last Admin: 11/30/23 01:02 Dose: 3 mg Documented By: MY Oxycodone HCl (Oxycodone Hcl Immed Release 5 Mg Tablet) 5 mg PO Q4H PRN PRN Reason: Pain, Moderate(Pain Scale 4-6) Last Admin: 11/29/23 22:25 Dose: 5 mg Documented By: MY Sodium Chloride (0.9 % Sodium Chloride Flush 3 Ml Syringe) 3 ml IVFLUSH QSHIFT [facility] Last Admin: 11/29/23 20:34 Dose: 3 ml Documented By: MAIDA Torsemide (Torsemide 20 Mg Tablet) 20 mg PO DAILY [facility]; Protocol Last Admin: 11/29/23 09:57 Dose: 20 mg Documented By: JUSTINE Labs 11/30/23 04:00 11/30/23 04:00 Labs: Laboratory Results - last 24 hr 11/30/23 04:00 MCV 93.2 MCH 31.5 MCHC 33.8 RDW 14.2 Plt Count 262 MPV 9.7 Absolute Nucleated RBC 0.000 Nucleated RBC % (auto) 0.0 Anion Gap 13 Estim Creat Clear Calc 68.6 Estimated GFR > 60 Random Glucose 126 H Calcium 8.7 Magnesium 1.7 Procedures Date of Service Date of Service: 11/30/23 Progress Note: A&P Assessment and plan (1) Choledocholithiasis: Status: Acute (2) S/P laparoscopic cholecystectomy: Status: Acute Plan POD #1 s/p lap edd. Doing overall well. VSS. Abd exam benign with appropriate post op tenderness, intact dressings. Increase activity, IS use encouraged. PT consult. Doing well from surgical standpoint, stable for dc when medically cleared. Time Spent With Patient Time: Total time managing care of this patient today ____ minutes. Quality Stroke Does the patient have a stroke diagnosis?: No VTE Prior VTE?: No VTE Risk Level:: Medical - moderate - high VTE Device Contraindication: Treatment Not Indicated VTE Drug Contraindication: N/A - Med Ordered
[2023-11-30] MEDS: Metoprolol Tartrate 12.5 MG HALFTAB PO ×3 (08:26→20:25)
[2023-11-30] MEDS: Torsemide 20 MG TABLET PO (08:26)
[2023-11-30] MEDS: Gabapentin 300 MG CAPSULE PO ×3 (08:26→20:25)
[2023-11-30] MEDS: Escitalopram Oxalate 10 MG TABLET PO (08:27)
[2023-11-30] MEDS: 0.9 % Sodium Chloride Flush 3 ML SYRINGE IVFLUSH ×2 (08:27→20:26)
[2023-11-30] MEDS: metroNIDAZOLE/NS 500 MG/100 ML PIGGYBACK 100 MG IV (08:32)
[2023-11-30 11:09] VITALS: BP 105/59; PULSE 55; RESP 18; TEMP 36.1; O2SAT 97
--- NOTE | 2023-11-30 11:31 | HO.POSTANES ---
Post Anesthesia Evaluation Post Anesthesia Evaluation Date of Service: 11/29/23 Vital Signs: Vital Signs Temp Pulse Resp BP Pulse Ox O2 Del Method 11/30/23 11:09 97.0 F 55 18 105/59 L 97 Room Air 11/30/23 07:14 97.6 F 85 18 115/87 98 Room Air 11/30/23 04:00 98.0 F 95 19 121/65 95 Room Air 11/29/23 23:38 98.0 F 95 19 121/65 95 Room Air Anesthesia: General Endotracheal-GETA Mental Status: Awake Pain Control: Satisfactory (02/13) Nausea/Vomiting: None Hydration: Adequate Anesthesia-Related Issues: No Anes. Related Issues
--- NOTE | 2023-11-30 12:40 | HO.PM.IMPN ---
Subjective Subjective Date of Service: 11/30/23 Interval History: Has postop discomfort. Continues to complain of abdominal pain. Has not had a bowel movement but refusing stool softeners Review of Systems Review of Systems: Yes all other systems are reviewed and are negative Physical Exam Vital Signs: Vital Signs: Last Vital Signs Temp 97.0 F 11/30/23 11:09 Pulse 55 11/30/23 11:09 Resp 18 11/30/23 11:09 BP 105/59 L 11/30/23 11:09 Pulse Ox 97 11/30/23 11:09 O2 Del Method Room Air 11/30/23 11:09 O2 Flow Rate 1.5 11/29/23 11:28 BMI result Body Mass Index 28.2 Appearance: Alert. Oriented X3. cvs: [id number], [id number] , no murmur res: clear to auscultation ,no rhonchii or wheezing abd: no rebound or guarding ,nt, bs present. lap site clean with bandage ext pulses present , no cyanosis. neuro: axo3 , nonfocal. Objective Data Active Medications Acetaminophen (Acetaminophen 325 Mg Tablet) 650 mg PO BEDTIME PRN PRN Reason: MILD PAIN/SLEEP Last Admin: 11/29/23 22:25 Dose: 650 mg Documented By: MY Atorvastatin Calcium (Atorvastatin Calcium 10 Mg Tablet) 10 mg PO BEDTIME [facility] Last Admin: 11/29/23 20:33 Dose: 10 mg Documented By: MAIDA Diphenhydramine HCl (Diphenhydramine Hcl 25 Mg Capsule) 25 mg PO BEDTIME PRN PRN Reason: MILD PAIN/SLEEP Last Admin: 11/29/23 00:22 Dose: 25 mg Documented By: MAKENZIE Docusate Sodium (Docusate Sodium 100 Mg Capsule) 100 mg PO BID [facility] Last Admin: 11/30/23 08:27 Dose: Not Given Documented By: IVY Non-Admin Reason: Patient Refused Escitalopram Oxalate (Escitalopram Oxalate 10 Mg Tablet) 10 mg PO DAILY@0900 [facility] Last Admin: 11/30/23 08:27 Dose: 10 mg Documented By: IVY Gabapentin (Gabapentin 300 Mg Capsule) 300 mg PO TID [facility] Last Admin: 11/30/23 08:26 Dose: 300 mg Documented By: IVY Ceftriaxone Sodium 1 gm/ (Sodium Chloride) 50 mls @ 100 mls/hr IV Q24H [facility] Last Infusion: 11/29/23 23:54 Dose: Infused Documented By: MAIDA Lorazepam (Lorazepam 1 Mg Tablet) 1 mg PO BID PRN PRN Reason: Anxiety Last Admin: 11/30/23 01:00 Dose: 1 mg Documented By: MY Melatonin (Melatonin 3 Mg Tablet) 6 mg PO BEDTIME PRN PRN Reason: Sleep Last Admin: 11/30/23 00:59 Dose: 6 mg Documented By: MY Metoprolol Tartrate (Metoprolol Tartrate 12.5 Mg Halftab) 12.5 mg PO QID [facility]; Protocol Last Admin: 11/30/23 11:53 Dose: Not Given Documented By: NORY Non-Admin Reason: low HR Morphine Sulfate (Morphine Sulfate 4 Mg/Ml Cartridge) 3 mg IVPUSH Q4H PRN; Protocol PRN Reason: Pain, Severe (Pain Scale 7-10) Last Admin: 11/30/23 08:31 Dose: 3 mg Documented By: IVY Oxycodone HCl (Oxycodone Hcl Immed Release 5 Mg Tablet) 5 mg PO Q4H PRN PRN Reason: Pain, Moderate(Pain Scale 4-6) Last Admin: 11/29/23 22:25 Dose: 5 mg Documented By: MY Sodium Chloride (0.9 % Sodium Chloride Flush 3 Ml Syringe) 3 ml IVFLUSH QSHIFT [facility] Last Admin: 11/30/23 11:37 Dose: Not Given Documented By: NORY Non-Admin Reason: flushed Torsemide (Torsemide 20 Mg Tablet) 20 mg PO DAILY [facility]; Protocol Last Admin: 11/30/23 08:26 Dose: 20 mg Documented By: IVY Labs 11/30/23 04:00 11/30/23 04:00 Labs: Laboratory Results - last 24 hr 11/30/23 04:00 MCV 93.2 MCH 31.5 MCHC 33.8 RDW 14.2 Plt Count 262 MPV 9.7 Absolute Nucleated RBC 0.000 Nucleated RBC % (auto) 0.0 Anion Gap 13 Estim Creat Clear Calc 68.6 Estimated GFR > 60 Random Glucose 126 H Calcium 8.7 Magnesium 1.7 Assessment and Plan (1) Choledocholithiasis: Status: Acute Plan 78F presented with abdominal pain Choledocholithiasis Underwent ERCP on 11/26 with sphincterotomy, multiple gallstones removal and stent placement Underwent laparoscopic cholecystectomy on 11/28 Severe hypokalemia: Repleted Acute UTI Urine culture with pansensitive E coli. Completed antibiotic course Chornic diastolic chf continue po diuretics. Essential hypertension On p.o. metoprolol ANITA CPAP at bedtime Depression/anxiety ativan Paroxysmal atrial fibrillation Resume anticoagulation on 11/30 as per surgery DVT prophylaxis: SCDs. Pt eval full code Reason for continued hospitalization: Postop management and care. Has abdominal discomfort and awaiting return of normal bowel function. Anticipate home with discharge tomorrow with [facility] Quality Stroke Does the patient have a stroke diagnosis?: No VTE Prior VTE?: No VTE Risk Level:: Medical - moderate - high VTE Device Contraindication: Treatment Not Indicated VTE Drug Contraindication: N/A - Med Ordered
[2023-11-30] MEDS: oxyCODONE HCl Immed Release 5 MG TABLET PO ×2 (14:00→19:19)
[2023-11-30 15:28] VITALS: BP 112/56; PULSE 66; RESP 18; TEMP 36.7; O2SAT 96
[2023-11-30 19:13] VITALS: BP 120/61; PULSE 74; RESP 16; TEMP 36.2; O2SAT 96
[2023-11-30] MEDS: Atorvastatin Calcium 10 MG TABLET PO (20:25)
--- NOTE | 2023-11-30 22:55 | PC.RT ---
Pt refused CPAP
[2023-11-30 23:10] VITALS: BP 135/59; PULSE 91; RESP 16; TEMP 36.2; O2SAT 96
[2023-12-01] MEDS: oxyCODONE HCl Immed Release 5 MG TABLET PO ×4 (00:59→23:10)
[2023-12-01] MEDS: Melatonin 3 MG TABLET 6 MG PO (00:59)
[2023-12-01] MEDS: LORazepam 1 MG TABLET PO (00:59)
[2023-12-01 04:00] VITALS: BP 105/55; PULSE 70; RESP 16; TEMP 36.1; O2SAT 94
[2023-12-01 04:58] LABS: Alanine Aminotransferase 34 U/L (0-31); Albumin Level 3.4 g/dL (3.5-5.0); Alkaline Phosphatase 94 U/L (39-117); Aspartate Amino Transferase 34 U/L (5-31); Bilirubin Direct 0.3 mg/dL (0.0-0.5); Bilirubin Total 0.5 mg/dL (0.0-1.0); Total Protein 6.3 g/dL (6.5-8.0)
[2023-12-01 07:09] VITALS: BP 107/65; PULSE 78; RESP 18; TEMP 36.4; O2SAT 96
[2023-12-01 07:27] LABS: Anion Gap 14 (12-20); Blood Urea Nitrogen 14 mg/dL (9-16); Calcium 9.2 mg/dL (8.4-10.2); Carbon Dioxide 34 mmol/L (22-29); Chloride 96 mmol/L (96-108); Estimated Glomerular Filt Rate > 60; Glucose Random 88 mg/dL (60-115); Potassium 3.6 mmol/L (3.3-5.1); Sodium 140 mmol/L (135-145)
[2023-12-01 07:30] LABS: Alanine Aminotransferase 32 U/L (0-31); Albumin Level 3.4 g/dL (3.5-5.0); Alkaline Phosphatase 95 U/L (39-117); Anion Gap 14 (12-20); Aspartate Amino Transferase 34 U/L (5-31); Bilirubin Total 0.5 mg/dL (0.0-1.0); Blood Urea Nitrogen 15 mg/dL (9-16); Calcium 9.2 mg/dL (8.4-10.2); Carbon Dioxide 34 mmol/L (22-29); Chloride 97 mmol/L (96-108); Creatinine Clr Calc Pharmacy 62.7; Estimated Glomerular Filt Rate > 60; Glucose Random 89 mg/dL (60-115); Potassium 3.5 mmol/L (3.3-5.1); Sodium 141 mmol/L (135-145); Total Protein 6.6 g/dL (6.5-8.0)
[2023-12-01] MEDS: Escitalopram Oxalate 10 MG TABLET PO (08:11)
[2023-12-01] MEDS: Metoprolol Tartrate 12.5 MG HALFTAB PO ×4 (08:11→23:11)
[2023-12-01] MEDS: Torsemide 20 MG TABLET PO (08:11)
[2023-12-01] MEDS: Docusate Sodium 100 MG CAPSULE PO ×2 (08:11→23:11)
[2023-12-01] MEDS: Apixaban 5 MG TABLET PO ×2 (08:11→23:10)
[2023-12-01] MEDS: Gabapentin 300 MG CAPSULE PO ×3 (08:11→23:10)
--- NOTE | 2023-12-01 08:36 | PC.NURSE ---
informed pt's HR spiking up to 170s while in bed and while ambulating
[2023-12-01 11:15] VITALS: BP 110/59; PULSE 67; RESP 18; TEMP 36.2; O2SAT 97
--- NOTE | 2023-12-01 12:32 | HO.PM.IMPN ---
Subjective Subjective Date of Service: 12/01/23 Interval History: ruq pain Physical Exam Vital Signs: Vital Signs: Last Vital Signs Temp 97.2 F 12/01/23 11:15 Pulse 67 12/01/23 11:15 Resp 18 12/01/23 11:15 BP 110/59 L 12/01/23 11:15 Pulse Ox 97 12/01/23 11:15 O2 Del Method Room Air 12/01/23 11:15 O2 Flow Rate 1.5 11/29/23 11:28 BMI result Body Mass Index 28.2 Appearance: Alert. Oriented X3. cvs: rrr, [id number] , no murmur res: clear to auscultation ,no rhonchii or wheezing abd: no rebound or guarding ,nt, bs present. lap site clean with bandage ext pulses present , no cyanosis. neuro: axo3 , nonfocal. Objective Data Active Medications Acetaminophen (Acetaminophen 325 Mg Tablet) 650 mg PO BEDTIME PRN PRN Reason: MILD PAIN/SLEEP Last Admin: 11/29/23 22:25 Dose: 650 mg Documented By: MY Apixaban (Apixaban 5 Mg Tablet) 5 mg PO BID [facility] Last Admin: 12/01/23 08:11 Dose: 5 mg Documented By: NORY Atorvastatin Calcium (Atorvastatin Calcium 10 Mg Tablet) 10 mg PO BEDTIME [facility] Last Admin: 11/30/23 20:25 Dose: 10 mg Documented By: MAIDA Diphenhydramine HCl (Diphenhydramine Hcl 25 Mg Capsule) 25 mg PO BEDTIME PRN PRN Reason: MILD PAIN/SLEEP Last Admin: 11/29/23 00:22 Dose: 25 mg Documented By: MAKENZIE Docusate Sodium (Docusate Sodium 100 Mg Capsule) 100 mg PO BID [facility] Last Admin: 12/01/23 08:11 Dose: 100 mg Documented By: NORY Escitalopram Oxalate (Escitalopram Oxalate 10 Mg Tablet) 10 mg PO DAILY@0900 [facility] Last Admin: 12/01/23 08:11 Dose: 10 mg Documented By: NORY Gabapentin (Gabapentin 300 Mg Capsule) 300 mg PO TID [facility] Last Admin: 12/01/23 08:11 Dose: 300 mg Documented By: NORY Melatonin (Melatonin 3 Mg Tablet) 6 mg PO BEDTIME PRN PRN Reason: Sleep Last Admin: 12/01/23 00:59 Dose: 6 mg Documented By: ANTBLAS Metoprolol Tartrate (Metoprolol Tartrate 12.5 Mg Halftab) 12.5 mg PO QID [facility]; Protocol Last Admin: 12/01/23 08:11 Dose: 12.5 mg Documented By: NORY Morphine Sulfate (Morphine Sulfate 4 Mg/Ml Cartridge) 3 mg IVPUSH Q4H PRN; Protocol PRN Reason: Pain, Severe (Pain Scale 7-10) Last Admin: 11/30/23 23:50 Dose: 3 mg Documented By: ANTBLAS Oxycodone HCl (Oxycodone Hcl Immed Release 5 Mg Tablet) 5 mg PO Q4H PRN PRN Reason: Pain, Moderate(Pain Scale 4-6) Last Admin: 12/01/23 08:11 Dose: 5 mg Documented By: NORY Sodium Chloride (0.9 % Sodium Chloride Flush 3 Ml Syringe) [address] [facility] Last Admin: 12/01/23 07:40 Dose: Not Given Documented By: NORY Non-Admin Reason: Patient Asleep Torsemide (Torsemide 20 Mg Tablet) 20 mg PO DAILY [facility]; Protocol Last Admin: 12/01/23 08:11 Dose: 20 mg Documented By: NORY Labs 11/30/23 04:00 12/01/23 06:26 Labs: Laboratory Results - last 24 hr 12/01/23 12/01/23 12/01/23 04:19 06:26 06:26 Anion Gap 14 14 Estim Creat Clear Calc 62.0 Estimated GFR Random Glucose Calcium Total Bilirubin 0.5 Direct Bilirubin 0.3 AST 34 H ALT 34 H Alkaline Phosphatase 94 Total Protein 6.3 L Albumin 3.4 L 12/01/23 12/01/23 12/01/23 06:26 06:26 06:26 Anion Gap Estim Creat Clear Calc 62.7 Estimated GFR > 60 > 60 Random Glucose 88 89 Calcium 9.2 Total Bilirubin Direct Bilirubin AST ALT Alkaline Phosphatase Total Protein Albumin 12/01/23 06:26 Anion Gap Estim Creat Clear Calc Estimated GFR Random Glucose Calcium 9.2 Total Bilirubin 0.5 Direct Bilirubin AST 34 H ALT 32 H Alkaline Phosphatase 95 Total Protein 6.6 Albumin 3.4 L Assessment and Plan (1) Choledocholithiasis: Status: Acute Plan 78F presented with abdominal pain Choledocholithiasis Underwent ERCP on 11/26 with sphincterotomy, multiple gallstones removal and stent placement Underwent laparoscopic cholecystectomy on 11/28 still with some pain, no bm Severe hypokalemia: Repleted, monitor Acute UTI Urine culture with pansensitive E coli. Completed antibiotic course Chornic diastolic chf continue po diuretics. Essential hypertension On p.o. metoprolol ANITA CPAP at bedtime Depression/anxiety ativan Paroxysmal atrial fibrillation eliquis, metoprlol DVT prophylaxis: eliquis Pt appreciated, plan for home on discharge full code Reason for continued hospitalization: Postop management and care. Has abdominal discomfort and awaiting return of normal bowel function Quality Stroke Does the patient have a stroke diagnosis?: No VTE Prior VTE?: No VTE Risk Level:: Medical - moderate - high VTE Device Contraindication: Treatment Not Indicated VTE Drug Contraindication: N/A - Med Ordered
--- NOTE | 2023-12-01 14:32 | MHC.CM.PN ---
EMR reviewed and per MD rounds, pt is not medically cleared for D/C due to management needed of post-op care and pain.
[2023-12-01] MEDS: Morphine Sulfate 4 MG/ML CARTRIDGE 3 MG IVPUSH (15:08)
[2023-12-01 15:27] VITALS: BP 98/65; PULSE 82; RESP 19; TEMP 36.4; O2SAT 92
[2023-12-01 19:54] VITALS: BP 95/55; PULSE 95; RESP 18; TEMP 37.8; O2SAT 92
[2023-12-01] MEDS: Atorvastatin Calcium 10 MG TABLET PO (23:10)
[2023-12-02] VITALS (7 sets, daily range): BP systolic 98–117; BP diastolic 51–69; PULSE 81–96; RESP 15–20; TEMP 36.1–36.9; O2SAT 91–94
[2023-12-02] MEDS: Melatonin 3 MG TABLET 6 MG PO (02:50)
[2023-12-02] MEDS: Acetaminophen 325 MG TABLET 650 MG PO (02:50)
[2023-12-02] MEDS: diphenhydrAMINE HCL 25 MG CAPSULE PO (02:52)
[2023-12-02] MEDS: Morphine Sulfate 4 MG/ML CARTRIDGE 3 MG IVPUSH (03:25)
[2023-12-02] MEDS: 0.9 % Sodium Chloride Flush 3 ML SYRINGE IVFLUSH ×3 (03:26→16:08)
[2023-12-02] MEDS: LORazepam 1 MG TABLET PO (04:14)
[2023-12-02] MEDS: oxyCODONE HCl Immed Release 5 MG TABLET PO ×4 (04:26→21:55)
[2023-12-02 07:09] LABS: Hematocrit 35.8 % (37.0-47.0); Hemoglobin 11.7 g/dl (12.0-16.0); Mean Corpuscular HGB Conc 32.7 g/dl (31.0-35.0); Mean Corpuscular Hemoglobin 31.1 pg (27.0-33.0); Mean Corpuscular Volume 95.2 fL (80.0-98.0); Platelet Count 296 X10*3/uL (160-400); Red Blood Count 3.76 X10*6/uL (4.20-5.50); Red Cell Distribution Width 14.5 % (11.0-16.0); White Blood Count 14.7 X10*3/uL (4.8-10.8)
[2023-12-02 07:22] LABS: Alanine Aminotransferase 25 U/L (0-31); Albumin Level 3.3 g/dL (3.5-5.0); Alkaline Phosphatase 90 U/L (39-117); Anion Gap 14 (12-20); Aspartate Amino Transferase 21 U/L (5-31); Bilirubin Direct 0.4 mg/dL (0.0-0.5); Bilirubin Total 0.5 mg/dL (0.0-1.0); Blood Urea Nitrogen 15 mg/dL (9-16); Calcium 8.8 mg/dL (8.4-10.2); Carbon Dioxide 32 mmol/L (22-29); Chloride 95 mmol/L (96-108); Creatinine Clr Calc Pharmacy 66.8; Estimated Glomerular Filt Rate > 60; Glucose Fasting 97 mg/dL (60-99); Magnesium 1.6 mg/dL (1.6-2.6); Sodium 138 mmol/L (135-145); Total Protein 6.4 g/dL (6.5-8.0)
[2023-12-02] MEDS: Potassium Chloride ER 20 MEQ TAB.ER.PRT 40 MEQ PO (09:29)
[2023-12-02] MEDS: Escitalopram Oxalate 10 MG TABLET PO (09:29)
[2023-12-02] MEDS: Apixaban 5 MG TABLET PO ×2 (09:29→21:54)
[2023-12-02] MEDS: Torsemide 20 MG TABLET PO (09:29)
[2023-12-02] MEDS: Docusate Sodium 100 MG CAPSULE PO ×2 (09:29→21:54)
[2023-12-02] MEDS: Metoprolol Tartrate 12.5 MG HALFTAB PO ×4 (09:30→21:56)
[2023-12-02] MEDS: Gabapentin 300 MG CAPSULE PO ×3 (09:30→21:54)
--- NOTE | 2023-12-02 10:10 | PM.PNGS ---
Subjective Subjective Date of Service: 12/02/23 Interval history: Patient reports feeling improved with decreased incisional pain. She was able to tolerate her diet without increased abdominal pain, nausea or vomiting. Physical Exam Vital Signs: Vital Signs: Last Vital Signs Temp 96.9 F 12/02/23 07:27 Pulse 94 12/02/23 07:27 Resp 16 12/02/23 07:27 BP 117/56 L 12/02/23 09:29 Pulse Ox 92 12/02/23 07:27 O2 Del Method Room Air 12/02/23 07:27 O2 Flow Rate 1.5 11/29/23 11:28 BMI result Body Mass Index 28.2 Const: General: tired appearing Nutritional Appearance: average body habitus Eyes: Other: No scleral icterus Resp: Other: Normal respiratory effort, no respiratory distress GI: Other: Trocar incisions are clean, dry, and intact with minimal tenderness to palpation. Skin: Other: Warm, dry, no rash Objective Data Active Medications Acetaminophen (Acetaminophen 325 Mg Tablet) 650 mg PO BEDTIME PRN PRN Reason: MILD PAIN/SLEEP Last Admin: 12/02/23 02:50 Dose: 650 mg Documented By: MAKENZIE Apixaban (Apixaban 5 Mg Tablet) 5 mg PO BID [facility] Last Admin: 12/02/23 09:29 Dose: 5 mg Documented By: TOMMY Atorvastatin Calcium (Atorvastatin Calcium 10 Mg Tablet) 10 mg PO BEDTIME [facility] Last Admin: 12/01/23 23:10 Dose: 10 mg Documented By: MAKENZIE Diphenhydramine HCl (Diphenhydramine Hcl 25 Mg Capsule) 25 mg PO BEDTIME PRN PRN Reason: MILD PAIN/SLEEP Last Admin: 12/02/23 02:52 Dose: 25 mg Documented By: MAKENZIE Docusate Sodium (Docusate Sodium 100 Mg Capsule) 100 mg PO BID [facility] Last Admin: 12/02/23 09:29 Dose: 100 mg Documented By: TOMMY Escitalopram Oxalate (Escitalopram Oxalate 10 Mg Tablet) 10 mg PO DAILY@0900 [facility] Last Admin: 12/02/23 09:29 Dose: 10 mg Documented By: TOMMY Gabapentin (Gabapentin 300 Mg Capsule) 300 mg PO TID [facility] Last Admin: 12/02/23 09:30 Dose: 300 mg Documented By: TOMMY Lorazepam (Lorazepam 1 Mg Tablet) 1 mg PO BID PRN PRN Reason: Anxiety Last Admin: 12/02/23 04:14 Dose: 1 mg Documented By: MAKENZIE Melatonin (Melatonin 3 Mg Tablet) 6 mg PO BEDTIME PRN PRN Reason: Sleep Last Admin: 12/02/23 02:50 Dose: 6 mg Documented By: MAKENZIE Metoprolol Tartrate (Metoprolol Tartrate 12.5 Mg Halftab) 12.5 mg PO QID [facility]; Protocol Last Admin: 12/02/23 09:30 Dose: 12.5 mg Documented By: TOMMY Morphine Sulfate (Morphine Sulfate 4 Mg/Ml Cartridge) 3 mg IVPUSH Q4H PRN; Protocol PRN Reason: Pain, Severe (Pain Scale 7-10) Last Admin: 12/02/23 03:25 Dose: 3 mg Documented By: MAKENZIE Oxycodone HCl (Oxycodone Hcl Immed Release 5 Mg Tablet) 5 mg PO Q4H PRN PRN Reason: Pain, Moderate(Pain Scale 4-6) Last Admin: 12/02/23 09:33 Dose: 5 mg Documented By: TOMMY Sodium Chloride (0.9 % Sodium Chloride Flush 3 Ml Syringe) 3 ml IVFSH [facility] Last Admin: 12/02/23 09:30 Dose: 3 ml Documented By: TOMMY Torsemide (Torsemide 20 Mg Tablet) 20 mg PO DAILY [facility]; Protocol Last Admin: 12/02/23 09:29 Dose: 20 mg Documented By: TOMMY Labs 12/02/23 06:42 12/02/23 06:42 Labs: Laboratory Results - last 24 hr 12/02/23 06:42 MCV 95.2 MCH 31.1 MCHC 32.7 RDW 14.5 Plt Count 296 MPV 10.0 Absolute Nucleated RBC 0.000 Nucleated RBC % (auto) 0.0 Anion Gap 14 Estim Creat Clear Calc 66.8 Estimated GFR > 60 Fasting Glucose 97 Calcium 8.8 Magnesium 1.6 Total Bilirubin 0.5 Direct Bilirubin 0.4 AST 21 ALT 25 Alkaline Phosphatase 90 Total Protein 6.4 L Albumin 3.3 L Procedures Date of Service Date of Service: 12/02/23 Progress Note: A&P Assessment and plan (1) S/P laparoscopic cholecystectomy: Status: Acute (2) Choledocholithiasis: Status: Acute Plan Pod 3 following laparoscopic cholecystectomy for choledocholithiasis. Overall the patient is improved with decreased abdominal pain. She is tolerating her diet without nausea or vomiting. Patient stable for discharge from surgical standpoint when medically cleared. Time Spent With Patient Time: Total time managing care of this patient today ____ minutes. Quality Stroke Does the patient have a stroke diagnosis?: No VTE Prior VTE?: No VTE Risk Level:: Medical - moderate - high VTE Device Contraindication: Treatment Not Indicated VTE Drug Contraindication: N/A - Med Ordered
--- NOTE | 2023-12-02 10:30 | P.PNIM_ITS ---
Subjective Subjective Date of Service: 12/02/23 Interval History: still no bm Physical Exam 2 Vital Signs: Vital Signs: Last Vital Signs Temp 96.9 F 12/02/23 07:27 Pulse 94 12/02/23 07:27 Resp 16 12/02/23 07:27 BP 117/56 L 12/02/23 09:29 Pulse Ox 92 12/02/23 07:27 O2 Del Method Room Air 12/02/23 07:27 O2 Flow Rate 1.5 11/29/23 11:28 BMI result Body Mass Index 28.2 Const: General: tired appearing Nutritional Appearance: average body habitus Eyes: Other: No scleral icterus Resp: Other: Normal respiratory effort, no respiratory distress GI: Other: Trocar incisions are clean, dry, and intact with minimal tenderness to palpation. Skin: Other: Warm, dry, no rash Objective Data Active Medications Acetaminophen (Acetaminophen 325 Mg Tablet) 650 mg PO BEDTIME PRN PRN Reason: MILD PAIN/SLEEP Last Admin: 12/02/23 02:50 Dose: 650 mg Documented By: MAKENZIE Apixaban (Apixaban 5 Mg Tablet) 5 mg PO BID [facility] Last Admin: 12/02/23 09:29 Dose: 5 mg Documented By: TOMMY Atorvastatin Calcium (Atorvastatin Calcium 10 Mg Tablet) 10 mg PO BEDTIME [facility] Last Admin: 12/01/23 23:10 Dose: 10 mg Documented By: MAKENZIE Diphenhydramine HCl (Diphenhydramine Hcl 25 Mg Capsule) 25 mg PO BEDTIME PRN PRN Reason: MILD PAIN/SLEEP Last Admin: 12/02/23 02:52 Dose: 25 mg Documented By: MAKENZIE Docusate Sodium (Docusate Sodium 100 Mg Capsule) 100 mg PO BID [facility] Last Admin: 12/02/23 09:29 Dose: 100 mg Documented By: TOMMY Escitalopram Oxalate (Escitalopram Oxalate 10 Mg Tablet) 10 mg PO DAILY@0900 [facility] Last Admin: 12/02/23 09:29 Dose: 10 mg Documented By: TOMMY Gabapentin (Gabapentin 300 Mg Capsule) 300 mg PO TID [facility] Last Admin: 12/02/23 09:30 Dose: 300 mg Documented By: TOMMY Lorazepam (Lorazepam 1 Mg Tablet) 1 mg PO BID PRN PRN Reason: Anxiety Last Admin: 12/02/23 04:14 Dose: 1 mg Documented By: MAKENZIE Melatonin (Melatonin 3 Mg Tablet) 6 mg PO BEDTIME PRN PRN Reason: Sleep Last Admin: 12/02/23 02:50 Dose: 6 mg Documented By: MAKENZIE Metoprolol Tartrate (Metoprolol Tartrate 12.5 Mg Halftab) 12.5 mg PO QID [facility]; Protocol Last Admin: 12/02/23 09:30 Dose: 12.5 mg Documented By: TOMMY Morphine Sulfate (Morphine Sulfate 4 Mg/Ml Cartridge) 3 mg IVPUSH Q4H PRN; Protocol PRN Reason: Pain, Severe (Pain Scale 7-10) Last Admin: 12/02/23 03:25 Dose: 3 mg Documented By: MAKENZIE Oxycodone HCl (Oxycodone Hcl Immed Release 5 Mg Tablet) 5 mg PO Q4H PRN PRN Reason: Pain, Moderate(Pain Scale 4-6) Last Admin: 12/02/23 09:33 Dose: 5 mg Documented By: TOMMY Sodium Chloride (0.9 % Sodium Chloride Flush 3 Ml Syringe) 3 ml IVFLUSH [facility] Last Admin: 12/02/23 09:30 Dose: 3 ml Documented By: TOMMY Torsemide (Torsemide 20 Mg Tablet) 20 mg PO DAILY [facility]; Protocol Last Admin: 12/02/23 09:29 Dose: 20 mg Documented By: TOMMY Labs 12/02/23 06:42 12/02/23 06:42 Labs: Laboratory Results - last 24 hr 12/02/23 06:42 MCV 95.2 MCH 31.1 MCHC 32.7 RDW 14.5 Plt Count 296 MPV 10.0 Absolute Nucleated RBC 0.000 Nucleated RBC % (auto) 0.0 Anion Gap 14 Estim Creat Clear Calc 66.8 Estimated GFR > 60 Fasting Glucose 97 Calcium 8.8 Magnesium 1.6 Total Bilirubin 0.5 Direct Bilirubin 0.4 AST 21 ALT 25 Alkaline Phosphatase 90 Total Protein 6.4 L Albumin 3.3 L Assessment and Plan (1) Choledocholithiasis: Status: Acute Plan 78F presented with abdominal pain Choledocholithiasis Underwent ERCP on 11/26 with sphincterotomy, multiple gallstones removal and stent placement Underwent laparoscopic cholecystectomy on 11/28 no bm, will give dulcolax pr Severe hypokalemia: Repleted, monitor Acute UTI Urine culture with pansensitive E coli. Completed antibiotic course Chornic diastolic chf continue po diuretics. Essential hypertension On p.o. metoprolol ANITA CPAP at bedtime Depression/anxiety ativan Paroxysmal atrial fibrillation eliquis, metoprlol DVT prophylaxis: eliquis Pt appreciated, plan for home on discharge full code Reason for continued hospitalization: Postop management and care. Has abdominal discomfort and awaiting return of normal bowel function Quality Stroke Does the patient have a stroke diagnosis?: No VTE Prior VTE?: No VTE Risk Level:: Medical - moderate - high VTE Device Contraindication: Treatment Not Indicated VTE Drug Contraindication: N/A - Med Ordered
[2023-12-02] MEDS: bisacodyL 10 MG SUPP.RECT PR (12:27)
[2023-12-02] MEDS: Atorvastatin Calcium 10 MG TABLET PO (21:55)
[2023-12-03] MEDS: Morphine Sulfate 4 MG/ML CARTRIDGE 3 MG IVPUSH (01:18)
[2023-12-03] MEDS: Melatonin 3 MG TABLET 6 MG PO (01:20)
[2023-12-03] MEDS: LORazepam 1 MG TABLET PO (01:21)
[2023-12-03] MEDS: Acetaminophen 325 MG TABLET 650 MG PO (01:22)
[2023-12-03] MEDS: diphenhydrAMINE HCL 25 MG CAPSULE PO (01:22)
[2023-12-03 03:21] VITALS: BP 114/61; PULSE 72; RESP 14; TEMP 36.2; O2SAT 90
[2023-12-03 05:51] LABS: Hematocrit 36.9 % (37.0-47.0); Hemoglobin 12.1 g/dl (12.0-16.0); Mean Corpuscular HGB Conc 32.8 g/dl (31.0-35.0); Mean Corpuscular Hemoglobin 31.8 pg (27.0-33.0); Mean Corpuscular Volume 97.1 fL (80.0-98.0); Mean Platelet Volume 10.1 fL (9.4-12.3); Platelet Count 274 X10*3/uL (160-400); Red Cell Distribution Width 14.4 % (11.0-16.0); White Blood Count 12.9 X10*3/uL (4.8-10.8)
[2023-12-03 06:17] LABS: Anion Gap 15 (12-20); Blood Urea Nitrogen 18 mg/dL (9-16); Calcium 8.9 mg/dL (8.4-10.2); Carbon Dioxide 29 mmol/L (22-29); Chloride 95 mmol/L (96-108); Creatinine Clr Calc Pharmacy 65.1; Estimated Glomerular Filt Rate > 60; Glucose Fasting 93 mg/dL (60-99); Magnesium 1.7 mg/dL (1.6-2.6); Potassium 3.3 mmol/L (3.3-5.1); Sodium 136 mmol/L (135-145)
[2023-12-03 07:08] VITALS: BP 101/62; PULSE 61; RESP 20; TEMP 36.2; O2SAT 92
[2023-12-03] MEDS: 0.9 % Sodium Chloride Flush 3 ML SYRINGE IVFLUSH (08:39)
[2023-12-03 08:40] VITALS: PULSE 106
[2023-12-03] MEDS: Docusate Sodium 100 MG CAPSULE PO (08:40)
[2023-12-03] MEDS: Escitalopram Oxalate 10 MG TABLET PO (08:40)
[2023-12-03] MEDS: Apixaban 5 MG TABLET PO (08:40)
[2023-12-03] MEDS: Metoprolol Tartrate 25 MG TABLET PO (08:40)
[2023-12-03] MEDS: Gabapentin 300 MG CAPSULE PO (08:40)
[2023-12-03 08:41] VITALS: BP 101/62
[2023-12-03] MEDS: Torsemide 20 MG TABLET PO (08:41)
[2023-12-03] MEDS: oxyCODONE HCl Immed Release 5 MG TABLET PO (08:42)
--- NOTE | 2023-12-03 09:29 | P.DS_ITS ---
DS: Providers Provider Date of Service: 12/03/23 Date of admission: 11/21/23 09:04 Primary care physician: Juan Miguel Martinez MD Consults: 11/21/23 09:06 Consult to Cardiology Routine Consulting Provider: [facility] Cardiovascular Services Reason for consultation: Chest Pain , a flutter 11/22/23 14:56 Consult to General Surgery Routine Consulting Provider: [facility] General Surgeons Reason for consultation: abd pain ,eelvated lft's -ct -cholithasis Has provider been notified: No 11/23/23 07:48 Consult to Gastroenterology Routine Consulting Provider: [facility] Gastroenterology Services Reason for consultation: abd pain ,elevated lft Has provider been notified: No DS: Diagnosis Discharge Diagnosis (1) Choledocholithiasis: Status: Acute DS: Summary Hospital Course Hospital Course: from initial hpi: 78 y/o M history of hypertension, hyperlipidemia, CAD, CHF, AFib on Eliquis, history of head and neck cancer, sick sinus syndrome, history of bradycardia, ANITA: Patient came to the hospital because left flank abdominal pain and also some chest tightness-she has a poor historian, she says that she has on and off some abdominal discomfort but this pain is little bit different . She says stabbing type pain, going from left flank to upper left chest area, nonpositional or pleuritic, has some reproducible component. She tried at home some exercises as well as lorazepam she said it did not help with the pain. In ED patient was found to have AFib with RVR in 129hr , also UA was done question of UTI: Patient was given digoxin and Lopressor and also requested admission for AFib with RVR and UTI. Denies any nausea vomiting or diarrhea or weakness or numbness or fever or recent travel or sick contacts. Patient is poor historian and unable to tell if any urinary complaints Lab imaging , EKG reviewed: Okay so WBC 12.1 BMP: Seems fine, LFT elevated Lactic acid normal, troponin x2 normal and flat EKG: AFib with ventricular rate of 107 hospital course: Patient was admitted for choledocholithiasis, she underwent ERCP on 11/26 with sphincterotomy with multiple gallstones removed and stent placement she then underwent laparoscopic cholecystectomy in 424. Postoperative period was unremarkable, patient is now tolerating solid diet and having successful bowel movements. Course also complicated by acute severe hypokalemia which was replaced. For acute UTI due to pansensitive E coli she completed course of antibiotics. For chronic diastolic CHF she was continued on maintenance diuretics. For hypertension she was continued on metoprolol. For ANITA she was on CPAP at bedtime. For depression/anxiety she was continued on Ativan. For paroxysmal atrial fibrillation she was continued on metoprolol and Eliquis. Patient is feeling better will be discharged home with VNA. Time Attestation Discharge Coordination Time (in mins): 35 Quality: Safe Use of Opioids Does Pt have an Active Cancer Diagnosis on the Problem List?: No Quality: Stroke Does the patient have a stroke diagnosis?: No Physical Exam Vital Signs: Vital Signs: Last Vital Signs Temp 97.1 F 12/03/23 07:08 Pulse 106 H 12/03/23 08:40 Resp 20 12/03/23 07:08 BP 101/62 12/03/23 08:41 Pulse Ox 92 12/03/23 07:08 O2 Del Method Room Air 12/03/23 07:08 O2 Flow Rate 1.5 11/29/23 11:28 BMI result Body Mass Index 28.2 Const: General: tired appearing Nutritional Appearance: average body habitus Eyes: Other: No scleral icterus Resp: Other: Normal respiratory effort, no respiratory distress GI: Other: Trocar incisions are clean, dry, and intact with minimal tenderness to palpation. Skin: Other: Warm, dry, no rash DS: Data Data Completed and Pending Completed studies during hospitalization [Text1]: Pending at discharge 11/29/23 08:20 Surgical [PTH] Routine Procedures Bypass Trachea to Cutaneous with Tracheostomy Device, Open Approach (12/13/20) Dilation of Esophagus with Intraluminal Device, Via Natural or Artificial Opening Endoscopic (12/13/20) Drainage of Gallbladder with Drainage Device, Percutaneous Approach (12/13/20) Drainage of Right Lung, Via Natural or Artificial Opening Endoscopic, Diagnostic (12/13/20) Drainage of Right Pleural Cavity with Drainage Device, Percutaneous Approach (12/13/20) Excision of Stomach, Pylorus, Via Natural or Artificial Opening Endoscopic, Diagnostic (12/13/20) Insertion of Endotracheal Airway into Trachea, Via Natural or Artificial Opening (12/13/20) Insertion of Endotracheal Airway into Trachea, Via Natural or Artificial Opening Endoscopic (12/13/20) Insertion of Feeding Device into Stomach, Percutaneous Approach (12/13/20) Insertion of Infusion Device into Left Cephalic Vein, Percutaneous Approach (12/13/20) Insertion of Infusion Device into Right Cephalic Vein, Percutaneous Approach (11/17/20) Insertion of Infusion Device into Superior Vena Cava, Percutaneous Approach (12/13/20) Insertion of Monitoring Device into Upper Artery, Percutaneous Approach (12/13/20) Introduction of Mineral-based Topical Hemostatic Agent into Upper GI, Via Natural or Artificial Opening Endoscopic, [employer] 6 (12/13/20) Respiratory Ventilation, 24-96 Consecutive Hours (12/13/20) Respiratory Ventilation, Greater than 96 Consecutive Hours (12/13/20) [employer] of Cardiac Rhythm, Single (11/17/20) Transfusion of Nonautologous Frozen Plasma into Peripheral Vein, Percutaneous Approach (12/13/20) Transfusion of Nonautologous Red Blood Cells into Peripheral Vein, Percutaneous Approach (12/13/20) Labs on day of discharge: Laboratory Results - last 24 hr 12/03/23 05:30 WBC 12.9 H RBC 3.80 L Hgb 12.1 Hct 36.9 L MCV 97.1 MCH 31.8 MCHC 32.8 RDW 14.4 Plt Count 274 MPV 10.1 Absolute Nucleated RBC 0.000 Nucleated RBC % (auto) 0.0 Sodium 136 Potassium 3.3 Chloride 95 L Carbon Dioxide 29 Anion Gap 15 BUN 18 H Creatinine 0.78 Estim Creat Clear Calc 65.1 Estimated GFR > 60 Fasting Glucose 93 Calcium 8.9 Magnesium 1.7 Discharge Plan Discharge Anticipated Discharge Date/Time: 12/03/23 09:28 Patient Disposition: Home Health Service Discharge Diagnosis: choledocolithasis, afib Referrals: Juan Miguel Martinez MD [Primary Care Provider] - 1 Week Mino Julian MD [Physician] - 1 Week Discharge Medications: New hydrocodone-acetaminophen 5-325 mg tablet 1 tab PO Q4-6H PRN (Reason: pain) Qty: 30 0RF Rx Instructions: Partial Fill upon patient request. Continued Eliquis 5 mg tablet 5 mg PO BID 30 Days Qty: 60 0RF simvastatin 10 mg Tablet 10 mg PO BEDTIME digoxin 125 mcg (0.125 mg) Tablet 0.125 mg PO DAILY 30 Days Qty: 30 0RF escitalopram oxalate 10 mg tablet 10 mg PO DAILY@0900 gabapentin 300 mg capsule 300 mg PO TID lorazepam 1 mg tablet 1 mg PO BID PRN (Reason: Anxiety) melatonin 3 mg Tablet 6 mg PO BEDTIME PRN (Reason: Sleep) diphenhydramine-acetaminophen [Acetaminophen PM] 25-500 mg Tablet 1 tab PO BEDTIME PRN (Reason: Pain) metoprolol tartrate 25 mg tablet 25 mg PO BID torsemide 20 mg tablet 20 mg PO DAILY Discharge Orders: Discharge Order (Routine); Ordered 12/03/23 Ordered By: Sherif Deluca Diet: Advance to usual diet Activity on Discharge: No heavy lifting Stand Alone Forms: Patient Portal Discharge page Print Language: Qatari Activity Restrictions/Additional Instructions: Ice to wound 20 minutes several times today and tomorrow. May shower in 2 days. Remove outside dressing only. Leave Steri-Strips intact. No strenuous activities Care Plan Goals: recovery Health Concerns: s/p sholecystectomy Plan of Treatment: follow up with surgery Assessment: see above
--- NOTE | 2023-12-03 09:31 | P.F2F_ITS ---
Service Date Service Date: 12/03/23 Encounter Date of encounter: 12/03/23 Reasons for Services Signs and symptoms assessed: abd pain, weakness Reason for senior living: medication management, medication treatment and teach disease management Homebound: Leaving the home is medically contraindicated at this time without the asist of a device and/or another person due th the listed conditions above and below. Reason homebound: unsteady gait / fall risk Certification: Based on the above findings, I certify that this patient is confined to the home and needs intermittent senior living care, physical therapy and/or speech therapy, or continues to need occupational therapy. The patient is under my care, and I have initiated the establishment of the plan of care. The patient will be followed by a physician who will periodically review the plan of care. Time Spent With Patient Time: Total time managing care of this patient today ____ minutes.
--- NOTE | 2023-12-03 10:14 | MHC.CM.PN ---
Second IMM, pt will go home via family transport today, she will have home care from [facility].
--- NOTE | 2023-12-03 11:09 | P.PNGS_ITS ---
Subjective Subjective Date of Service: 12/03/23 Interval history: Generally feels improved today with decreased abdominal pain, and no nausea or vomiting. Physical Exam 2 Vital Signs: Vital Signs: Last Vital Signs Temp 97.1 F 12/03/23 07:08 Pulse 106 H 12/03/23 08:40 Resp 20 12/03/23 07:08 BP 101/62 12/03/23 08:41 Pulse Ox 92 12/03/23 07:08 O2 Del Method Room Air 12/03/23 07:08 O2 Flow Rate 1.5 11/29/23 11:28 BMI result Body Mass Index 28.2 Const: General: tired appearing Nutritional Appearance: average body habitus Eyes: Other: No scleral icterus Resp: Other: Normal respiratory effort, no respiratory distress GI: Other: Trocar incisions are clean, dry, and intact with minimal tenderness to palpation. Dressings removed and the incisions found to be well healed Skin: Other: Warm, dry, no rash Objective Data Active Medications Acetaminophen (Acetaminophen 325 Mg Tablet) 650 mg PO BEDTIME PRN PRN Reason: MILD PAIN/SLEEP Last Admin: 12/03/23 01:22 Dose: 650 mg Documented By: MAKENZIE Apixaban (Apixaban 5 Mg Tablet) 5 mg PO BID [facility] Last Admin: 12/03/23 08:40 Dose: 5 mg Documented By: DES Atorvastatin Calcium (Atorvastatin Calcium 10 Mg Tablet) 10 mg PO BEDTIME [facility] Last Admin: 12/02/23 21:55 Dose: 10 mg Documented By: MAKENZIE Diphenhydramine HCl (Diphenhydramine Hcl 25 Mg Capsule) 25 mg PO BEDTIME PRN PRN Reason: MILD PAIN/SLEEP Last Admin: 12/03/23 01:22 Dose: 25 mg Documented By: MAKENZIE Docusate Sodium (Docusate Sodium 100 Mg Capsule) 100 mg PO BID [facility] Last Admin: 12/03/23 08:40 Dose: 100 mg Documented By: DES Escitalopram Oxalate (Escitalopram Oxalate 10 Mg Tablet) 10 mg PO DAILY@0900 [facility] Last Admin: 12/03/23 08:40 Dose: 10 mg Documented By: DES Gabapentin (Gabapentin 300 Mg Capsule) 300 mg PO TID [facility] Last Admin: 12/03/23 08:40 Dose: 300 mg Documented By: HO.PODMORP Lorazepam (Lorazepam 1 Mg Tablet) 1 mg PO BID PRN PRN Reason: Anxiety Last Admin: 12/03/23 01:21 Dose: 1 mg Documented By: MAKENZIE Melatonin (Melatonin 3 Mg Tablet) 6 mg PO BEDTIME PRN PRN Reason: Sleep Last Admin: 12/03/23 01:20 Dose: 6 mg Documented By: MAKENZIE Metoprolol Tartrate (Metoprolol Tartrate 25 Mg Tablet) 25 mg PO BID [facility]; Protocol Last Admin: 12/03/23 08:40 Dose: 25 mg Documented By: GATITOMOYAHIR Morphine Sulfate (Morphine Sulfate 4 Mg/Ml Cartridge) 3 mg IVPUSH Q4H PRN; Protocol PRN Reason: Pain, Severe (Pain Scale 7-10) Last Admin: 12/03/23 01:18 Dose: 3 mg Documented By: MAKENZIE Oxycodone HCl (Oxycodone Hcl Immed Release 5 Mg Tablet) 5 mg PO Q4H PRN PRN Reason: Pain, Moderate(Pain Scale 4-6) Last Admin: 12/03/23 08:42 Dose: 5 mg Documented By: GATITOMOYAHIR Sodium Chloride (0.9 % Sodium Chloride Flush 3 Ml Syringe) [facility] Last Admin: 12/03/23 08:39 Dose: 3 ml Documented By: PODMORP Torsemide (Torsemide 20 Mg Tablet) 20 mg PO DAILY [facility]; Protocol Last Admin: 12/03/23 08:41 Dose: 20 mg Documented By: GATITOMORP Labs 12/03/23 05:30 12/03/23 05:30 Labs: Laboratory Results - last 24 hr 12/03/23 05:30 MCV 97.1 MCH 31.8 MCHC 32.8 RDW 14.4 Plt Count 274 MPV 10.1 Absolute Nucleated RBC 0.000 Nucleated RBC % (auto) 0.0 Anion Gap 15 Estim Creat Clear Calc 65.1 Estimated GFR > 60 Fasting Glucose 93 Calcium 8.9 Magnesium 1.7 Procedures Date of Service Date of Service: 12/03/23 Progress Note: A&P Assessment and plan (1) S/P laparoscopic cholecystectomy: Status: Acute (2) Choledocholithiasis: Status: Acute Plan Pod 4 following laparoscopic cholecystectomy for choledocholithiasis. Patient continues to improve with decreased abdominal pain. Wounds are clean and intact without redness or discharge. She is tolerating her diet without nausea or vomiting. Patient stable for discharge from surgical standpoint. Time Spent With Patient Time: Total time managing care of this patient today ____ minutes. Quality Stroke Does the patient have a stroke diagnosis?: No VTE Prior VTE?: No VTE Risk Level:: Medical - moderate - high VTE Device Contraindication: Treatment Not Indicated VTE Drug Contraindication: N/A - Med Ordered
[2023-12-03 12:00] VITALS: BP 117/63; PULSE 92; TEMP 36.3; O2SAT 93
== END 2023-12-03 15:00 | disposition home health service (06) | DRG 418 ==
LOC: HO.ED 11-21 07:05 → HO.EDOVER 11-21 09:10 → HO.IMC 11-22 04:04
PROVIDERS: Internal Medicine; Internal Medicine Gastroenterology; Student in an Organized Health Care Education/Training Program; Surgery; Admitting Provider Internal Medicine; Emergency Provider Internal Medicine; PCP Internal Medicine; Visit Provider Internal Medicine
PROC: 0FC98ZZ Extirpation of Matter from Common Bile Duct, Via Natural or Artificial Opening Endoscopic (ICD-10-PCS; CPT 43260; principal; 2023-11-27 12:30)
PROC: 0FT44ZZ Resection of Gallbladder, Percutaneous Endoscopic Approach (ICD-10-PCS; CPT 47562; principal; 2023-11-29 07:30)
DX: K80.50 Calculus of bile duct without cholangitis or cholecystitis without obstruction (principal); I48.19 Other persistent atrial fibrillation; I50.32 Chronic diastolic (congestive) heart failure; N39.0 Urinary tract infection, site not specified; I11.0 Hypertensive heart disease with heart failure; G47.33 Obstructive sleep apnea (adult) (pediatric); I49.5 Sick sinus syndrome; E87.6 Hypokalemia; F41.9 Anxiety disorder, unspecified; B96.20 Unspecified Escherichia coli [E. coli] as the cause of diseases classified elsewhere; F32.A Depression, unspecified; I25.10 Atherosclerotic heart disease of native coronary artery without angina pectoris; E78.5 Hyperlipidemia, unspecified; Z20.822 Contact with and (suspected) exposure to COVID-19; Z87.891 Personal history of nicotine dependence; Z85.818 Personal history of malignant neoplasm of other sites of lip, oral cavity, and pharynx; Z79.01 Long term (current) use of anticoagulants; Z79.899 Other long term (current) drug therapy
CPT/HCPCS: 0241U; 36415; 71045; 74018; 74176; 74181; 76705; 80048; 80053; 80076; 80162; 81001; 83605; 83690; 83735; 83880; 84132; 84439; 84443; 84484; 85025; 85027; 86704; 86706; 86709; 86803; 87040; 87086; 87088; 87186; 87340; 88304; 93005; 97110; 97161; 97530; 99285; C2617; J0131; J0696; J1100; J1160; J1610; J1650; J1836; J2270; J2405; J2704; J2795; J3010; J3475; J3480; Q9967

== ENCOUNTER → 2023-11-20 19:51 | Outpatient (BNV) | payer MEDICARE, MEDICAID, SELFPAY | PROVIDERS: Admitting Provider Internal Medicine; Emergency Provider Internal Medicine; PCP Internal Medicine; Visit Provider Internal Medicine | DX: R07.9 Chest pain, unspecified (principal) | CPT/HCPCS: 93010 ==

== ENCOUNTER 2023-11-21 09:04 | Outpatient (BNV) | payer MEDICARE, MEDICAID, SELFPAY | END 2023-11-23 05:05 | PROVIDERS: Admitting Provider Internal Medicine; Emergency Provider Internal Medicine; PCP Internal Medicine; Visit Provider Internal Medicine | DX: I48.91 Unspecified atrial fibrillation (principal) | CPT/HCPCS: 93010 ==

== ENCOUNTER → 2023-11-21 09:04 | Outpatient (BNV) | payer MEDICARE, MEDICAID, SELFPAY | PROVIDERS: Admitting Provider Internal Medicine; Emergency Provider Internal Medicine; PCP Internal Medicine; Visit Provider Internal Medicine | DX: I48.19 Other persistent atrial fibrillation (principal); I48.91 Unspecified atrial fibrillation; R07.2 Precordial pain; R07.9 Chest pain, unspecified; R00.0 Tachycardia, unspecified | CPT/HCPCS: 93010; 99223; 99233 ==

== ENCOUNTER → 2023-11-21 09:04 | Outpatient (BNV) | payer MEDICARE, MEDICAID, SELFPAY | PROVIDERS: Admitting Provider Internal Medicine; Emergency Provider Internal Medicine; PCP Internal Medicine; Visit Provider Internal Medicine | DX: K80.50 Calculus of bile duct without cholangitis or cholecystitis without obstruction (principal) | CPT/HCPCS: 99222; 99231; 99232; 99239; 99499; G0180 ==

== ENCOUNTER → 2023-11-21 09:04 | Outpatient (BNV) | payer MEDICARE, MEDICAID, SELFPAY | PROVIDERS: Admitting Provider Internal Medicine; Emergency Provider Internal Medicine; PCP Internal Medicine; Visit Provider Internal Medicine | DX: K80.50 Calculus of bile duct without cholangitis or cholecystitis without obstruction (principal) | CPT/HCPCS: 43264; 43277; 99222; 99232 ==

== ENCOUNTER → 2023-11-21 09:04 | Outpatient (BNV) | payer MEDICARE, MEDICAID, SELFPAY | PROVIDERS: Admitting Provider Internal Medicine; Emergency Provider Internal Medicine; PCP Internal Medicine; Visit Provider Surgery | DX: Z90.49 Acquired absence of other specified parts of digestive tract (principal); K80.50 Calculus of bile duct without cholangitis or cholecystitis without obstruction | CPT/HCPCS: 47562; 99024; 99222; 99232 ==

== ENCOUNTER 2023-12-12 14:05 | Outpatient (AMB) | payer MEDICARE, MEDICAID, SELFPAY ==
--- NOTE | 2023-12-12 14:14 | A.OFFVIS_ITS ---
Intake Visit Reasons: s/p sholecystectomy, C Inpt follow up Intake Note: Patient here s/p lap edd. Reports incisions healing well. Patient c/o: top of incision on upper abd feels hard underneath skin. Still taking rx pain meds as needed. SX: 11-29-23 [employer]el [employer] Operator Required: No Accompanied by: Self / Same As Patient Allergies amiodarone Allergy (Severe, Verified 12/12/23 14:18) Difficulty Breathing HPI Comments Details: Patient presents with her daughter. She is status post ERCP and laparoscopic cholecystectomy. All things considered, she is doing fairly well. She has starting a diet. He is having regular bowel habits. Patient is not very active in general. She has minimal incisional discomfort. 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 Essential hypertension Throat cancer Myocardial infarct Afib HTN (hypertension) Surgical History History of laparoscopic cholecystectomy (11/29/23) Atrial fibrillation status post cardioversion Family History Daughter Breast cancer Social History Household Members: Children Housing: House Do you presently have visiting nurse or other home services: No Alcohol intake: never Comment: counts correct Patient Tobacco Use Status: Former Tobacco user Years Smoked: 41 yrs Advance Directives Date on File: 01/13/21 service: No Current occupational status: disabled Physical Exam Eyes Other: Anicteric GI Other: Abdomen is soft, benign. All wounds clean dry and intact healing well Assessment & Plan Assessment & Plan (1) S/P laparoscopic cholecystectomy: Code(s): Z90.49 - Acquired absence of other specified parts of digestive tract Category: Medical Plan From a surgical perspective, patient is doing well. She is scheduled to follow- up with GI for stent removal in the future. The patient will otherwise follow- up with me p.r.n.. All questions answered Coding Level of Care Code Global (64149) Diagnoses S/P laparoscopic cholecystectomy Z90.49
== END 2023-12-12 14:25 | disposition home or self-care (01) ==
PROVIDERS: PCP Internal Medicine; Visit Provider Surgery
DX: Z90.49 Acquired absence of other specified parts of digestive tract (principal)
CPT/HCPCS: 99024

== ENCOUNTER → 2023-12-12 14:05 | Outpatient (BNVA) | payer MEDICARE, MEDICAID, SELFPAY | PROVIDERS: PCP Internal Medicine; Visit Provider Surgery | DX: Z09 Encounter for follow-up examination after completed treatment for conditions other than malignant neoplasm (principal); Z90.49 Acquired absence of other specified parts of digestive tract | CPT/HCPCS: 99212 ==

== ENCOUNTER 2023-12-25 14:40 | Outpatient (AMB) | payer MEDICARE, MEDICAID, SELFPAY ==
[2023-12-25 14:43] VITALS: BP 100/62; PULSE 87; BMI 26.8
--- NOTE | 2023-12-25 14:43 | MHC.OFFVIS ---
Vital Signs 12/25/23 14:43 Height 5 ft 6 in Weight 166 lb 3.657 oz BMI 26.8 BP 100/62 Blood Pressure Location Lt brachial Position Sitting Pulse 87 Pulse Source Monitor Intake Visit Reasons: 6 mth f/up Humidifier Attendant: Humidifier Attendant Present Allergies amiodarone Allergy (Severe, Verified 12/25/23 14:47) Difficulty Breathing Medication List - Last Reconciled 12/25/23 by JOSE LUIS SalcedoC apixaban (Eliquis) 5 mg PO BID 30 days digoxin 0.125 mg PO DAILY 30 days diphenhydramine-acetaminophen 25-500 mg (Acetaminophen PM) 1 tab PO BEDTIME PRN escitalopram oxalate 10 mg PO DAILY@0900 gabapentin 300 mg PO TID hydrocodone-acetaminophen 5-325 mg 1 tab PO Q4-6H PRN lorazepam 1 mg PO BID PRN melatonin 6 mg PO BEDTIME PRN metoprolol tartrate 25 mg PO BID simvastatin 10 mg PO BEDTIME torsemide 20 mg PO DAILY HPI HPI 6 mth f/up: Details: Lucia is a 77-year-old female with past medical history of hypertension, CAD, heart failure with preserved EF, chronic atrial fibrillation who presents for follow-up. Last month she was [place] [facility] [place]. She had UTI, AFib RVR, choledocholithiasis with ERCP and laparoscopic cholecystectomy. Upon discharge she was continued on her usual rate slowing agents and Eliquis. Today she reports she continues to have some abdominal discomfort. This has limited her ability to do physical activity. Her condition is gradually improving. No chest discomfort at rest or with activity. No heart palpitations, lightheadedness, presyncope, syncope, falls. No shortness of breath, PND, orthopnea or edema. She continues to have some difficulty with speech and swallowing from her prior throat cancer surgery. She is maintaining good hydration. Taking meds as directed. No bleeding issues reported. Daughter present. 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 Essential hypertension Throat cancer Myocardial infarct Afib HTN (hypertension) Surgical History History of laparoscopic cholecystectomy (11/29/23) Atrial fibrillation status post cardioversion Family History Daughter Breast cancer Social History Household Members: Children Housing: House Do you presently have visiting nurse or other home services: No Alcohol intake: never Comment: counts correct Patient Tobacco Use Status: Former Tobacco user Years Smoked: 41 yrs Advance Directives Date on File: 01/13/21 service: No Current occupational status: disabled Review of Systems Const All systems reviewed & are unremarkable except as noted in HPI and below Reports fatigue ENT Denies dizziness Card Denies chest pain, Denies chest pain at rest, Denies chest pain with activity, Denies rapid heart rate, Denies pedal edema, Denies edema, Denies leg edema, Denies lightheadedness, Denies palpitations, Denies dyspnea, Denies dyspnea on exertion and Denies orthopnea Resp Denies cough, Denies dyspnea and Denies dyspnea on exertion GI Details: recent abdominal surgery - still has some discomfort. Denies hematochezia and Denies change in stool character Musc Details: ambulates with walker Reports abnormal gait, Denies limited range of motion, Denies muscle cramps, Denies muscle weakness, Denies numbness, Denies radiating pain into limb, Denies stiffness and Denies tingling Neuro Reports abnormal gait, Denies dizziness, Denies numbness and Denies tingling Endo Reports fatigue and Denies palpitations Physical Exam Vital Signs: Last Vital Signs Pulse 87 12/25/23 14:43 BP 100/62 12/25/23 14:43 BMI result Body Mass Index 26.8 Const General: cooperative, healthy appearing, comfortable and no acute distress Orientation/consciousness: patient oriented x3 Neck Neck: Yes normal visual inspection and Yes no JVD Resp Effort & Inspection: normal respiratory effort Auscultation: clear to auscultation bilaterally, no crackles, no rales, no rhonchi and no wheezes Cardio Jugular venous distension: no JVD Rate: regular rate Rhythm: abnormal rhythm Heart sounds: S1 normal heart sound present, S2 normal heart sound present, no murmurs and no rubs Neuro General: patient oriented x3 Extrem General: Yes normal to inspection and No no pedal edema Psych Appearance: grossly normal Mental Status: mental status grossly normal Speech and movement: Normal speech and movement present Office Procedures EKG Details: Today, read by me, atrial fibrillation, ST and T-wave abnormality suggesting inferolateral ischemia, QTC 478 milliseconds, rate 87. [id number], Complete Assessment & Plan Assessment & Plan (1) Persistent atrial fibrillation: Code(s): I48.19 - Other persistent atrial fibrillation Category: Medical Plan: History of Chronic atrial fibrillation that is being treated with heart rate control. She is on metoprolol and digoxin. No reports of heart palpitations. Pulse is irregular on examination today. Labs done on 11/23/2023 shows creatinine 0.78, digoxin level 0.6. EKG done today showing atrial fibrillation with ST and T-wave abnormality suggesting inferior lateral ischemia, QTC 478, rates 87. She is on Eliquis for anticoagulation. No bleeding issues or falls reported. Continue current management. Recommend twice yearly kidney function and digoxin level. Cardiology follow-up in 6 months, sooner if needed (2) CAD (coronary artery disease): Code(s): I25.10 - Atherosclerotic heart disease of [place] coronary artery without angina pectoris Category: Medical Qualifiers: Associated angina: without angina Coronary Disease-Associated Artery/Lesion type: [place] artery [place] vs. transplanted heart: [place] heart Qualified Code(s): I25.10 - Atherosclerotic heart disease of [place] coronary artery without angina pectoris Plan: Reported history of CAD. No known cardiac issues, beyond AFib RVR, during recent surgical procedure. Last echocardiogram 01/16/2022 shows EF greater than 70%, normal RV systolic function. EKG from today is showing ST and T-wave abnormalities in inferior lateral leads. No reports of anginal sounding symptoms. Will update echocardiogram to reassess EF and wall motion. Continue metoprolol and simvastatin. She is not on aspirin as she is on Eliquis. Signs and symptoms of angina reviewed. (3) Heart failure with preserved ejection fraction: Code(s): I50.30 - Unspecified diastolic (congestive) heart failure Category: Medical Qualifiers: Heart failure chronicity: chronic Qualified Code(s): I50.32 - Chronic diastolic (congestive) heart failure Plan: History of heart failure with preserved EF. She has been taking torsemide as directed. On examination she has no clinical signs of decompensated heart failure. She admits to being mostly sedentary. Reviewed need for good hydration. Blood pressure is on the low side, asymptomatic. No med changes made. Signs and symptoms of heart failure reviewed with her. (4) S/P laparoscopic cholecystectomy: Code(s): Z90.49 - Acquired absence of other specified parts of digestive tract Category: Surgical Plan: Completed on 11/29/2023 (5) HTN (hypertension): Code(s): I10 - Essential (primary) hypertension Category: Medical Qualifiers: Hypertension type: primary hypertension Qualified Code(s): I10 - Essential (primary) hypertension Plan: On low side today, asymptomatic. She denies any problems with dizziness, presyncope, falls. Meds reviewed and no changes. Discussed good hydration and ongoing activity as tolerated. (6) Hospital discharge follow-up: Code(s): Z09 - Encounter for follow-up examination after completed treatment for conditions other than malignant neoplasm Category: Medical Plan: As above Plan Time spent on chart review, documentation, interview and assessment Orders: Orders CA echo transthoracic complete 12/25/23 I25.10 - Atherosclerotic heart disease of [place] coronary artery without angina pectoris, I50.32 - Chronic diastolic (congestive) heart failure Coding Level of Care Code Est Pt Level 4 (75404) Diagnoses Persistent atrial fibrillation I48.19 Coronary artery disease involving [place] coronary artery of [place] heart without angina pectoris I25.10 Associated angina: without angina Coronary Disease-Associated Artery/Lesion type: [place] artery [place] vs. transplanted heart: [place] heart Chronic heart failure with preserved ejection fraction I50.32 Heart failure chronicity: chronic S/P laparoscopic cholecystectomy Z90.49 Primary hypertension I10 Hypertension type: primary hypertension Hospital discharge follow-up Z09 CPT Codes EKG - CPT: [id number], Complete ([id number]) Time Spent (min) 30
== END 2023-12-25 15:22 | disposition home or self-care (01) ==
PROVIDERS: PCP Internal Medicine; Visit Provider Nurse Practitioner Family
DX: I25.10 Atherosclerotic heart disease of native coronary artery without angina pectoris (principal)
CPT/HCPCS: 93010; 99214

== ENCOUNTER 2023-12-25 15:30 | Outpatient (REF) | payer MEDICARE, MEDICAID, SELFPAY ==
[2023-12-25 15:48] LABS: MANUAL DIFF FLAG NO
[2023-12-25 17:08] LABS: Basophils Absolute Auto 0.1 X10*3/uL (0.0-0.2); Basophils Percent Auto 0.8 % (0-2); Eosinophils Absolute Auto 0.2 X10*3/uL (0.0-0.4); Eosinophils Percent Auto 2.6 % (0-4); Hematocrit 42.7 % (37.0-47.0); Hemoglobin 14.2 g/dl (12.0-16.0); Imm Gran Abs Auto 0.05 X10*3/uL (0.00-0.03); Imm Gran Pct Auto 0.7 % (0.0-0.4); Lymphocytes Absolute Auto 1.2 X10*3/uL (1.2-4.9); Lymphocytes Percent Auto 16.3 % (20-40); Mean Corpuscular HGB Conc 33.3 g/dl (31.0-35.0); Mean Corpuscular Hemoglobin 31.3 pg (27.0-33.0); Mean Corpuscular Volume 94.1 fL (80.0-98.0); Monocytes Absolute Auto 0.5 X10*3/uL (0.1-1.2); Monocytes Percent Auto 6.4 % (2-11); Neutrophils Absolute Auto 5.3 x10*3/uL (2.0-8.3); Neutrophils Percent Auto 73.2 % (45-73); Platelet Count 304 X10*3/uL (160-400); Red Blood Count 4.54 X10*6/uL (4.20-5.50); Red Cell Distribution Width 13.5 % (11.0-16.0); White Blood Count 7.3 X10*3/uL (4.8-10.8)
[2023-12-25 17:53] LABS: Alanine Aminotransferase 22 U/L (0-31); Albumin Level 3.8 g/dL (3.5-5.0); Alkaline Phosphatase 92 U/L (39-117); Anion Gap 16 (12-20); Aspartate Amino Transferase 27 U/L (5-31); Bilirubin Total 0.6 mg/dL (0.0-1.0); Blood Urea Nitrogen 11 mg/dL (9-16); Calcium 9.4 mg/dL (8.4-10.2); Carbon Dioxide 40 mmol/L (22-29); Chloride 87 mmol/L (96-108); Estimated Glomerular Filt Rate 55; Glucose Random 130 mg/dL (60-115); Potassium 2.9 mmol/L (3.3-5.1); Sodium 140 mmol/L (135-145); Total Protein 7.3 g/dL (6.5-8.0)
== END 2023-12-25 15:31 | disposition home or self-care (01) ==
LOC: HO.LAB 15:30
PROVIDERS: PCP Internal Medicine; Visit Provider Internal Medicine
DX: I48.19 Other persistent atrial fibrillation (principal); I25.10 Atherosclerotic heart disease of native coronary artery without angina pectoris; I13.0 Hypertensive heart and chronic kidney disease with heart failure and stage 1 through stage 4 chronic kidney disease, or unspecified chronic kidney disease; I50.32 Chronic diastolic (congestive) heart failure; N18.9 Chronic kidney disease, unspecified; J44.9 Chronic obstructive pulmonary disease, unspecified; Z79.01 Long term (current) use of anticoagulants; Z79.899 Other long term (current) drug therapy
CPT/HCPCS: 36415; 80053; 85025; 93005; 99212

== ENCOUNTER 2024-01-20 08:33 | Emergency (ER) | payer MEDICARE, MEDICAID, SELFPAY ==
--- NOTE | ~2024-01-20 | XR_ITS ---
EXAMINATION: XR FOOT, LEFT CLINICAL INFORMATION: Pain, injury. COMPARISON: None available. TECHNIQUE: AP, lateral, and oblique views of the left foot. FINDINGS: Displaced, mildly angulated fracture of the distal aspect of the fourth proximal phalanx. Overlying soft tissue swelling. No unexpected radiopaque foreign bodies. Moderate multifocal degenerative osteoarthritis more noticeable in the first metatarsophalangeal joint. Minimal calcaneal spurring. XR/XR foot LT min 3V IMPRESSION: Displaced, mildly angulated fracture of the distal aspect of the fourth proximal phalanx.
--- NOTE | ~2024-01-20 | XR_ITS ---
EXAMINATION: XR FOOT, LEFT CLINICAL INFORMATION: Post reduction. COMPARISON: Left foot radiographs done earlier the same day. TECHNIQUE: AP, lateral, and oblique views of the left foot. FINDINGS: Redemonstration of a mildly displaced fracture through the distal aspect of the fourth proximal phalanx with slightly improved anatomic alignment when compared to the prior examination. There is persistent cortical step off medially measuring up to 0.2 cm (previously 0.3 cm). No additional fracture. No dislocation. Scattered degenerative changes are similar when compared to the prior examination. Plantar calcaneal spur. XR/XR foot LT min 3V IMPRESSION: Mildly displaced fracture through the distal aspect of the fourth proximal phalanx with slightly improved anatomic alignment when compared to the prior examination.
--- NOTE | ~2024-01-20 | CT_ITS ---
EXAMINATION: CT CHEST WITHOUT CONTRAST CLINICAL INFORMATION: Fall pain COMPARISON: CT chest from 12/30/2020, CT chest from 01/03/2021 TECHNIQUE: Multidetector volumetric CT imaging of the chest was done. Axial MIP volume rendering provided. Sagittal and coronal reformatted images were obtained. This CT examination was performed using dose optimization techniques as appropriate, variously including the following: *Automated exposure control *Adjustment of mA and/or kV according to patient size (this includes techniques or standardized protocols for targeted exams where dose is matched to indication/reason for exam; i.e. extremities or head) *Use of iterative reconstruction technique DLP: 245.98 mGy-cm FINDINGS: LUNGS/PLEURA: Emphysematous changes. Peripheral reticular nodular opacities. Multiple bilateral pulmonary nodules are noted. The largest in the right upper lobe measures 4 mm along its posterior lateral aspect (series 19, image 172). The largest in the right middle lobe measuring 6 mm (series 19, image 260). The largest in the right lower lobe along its anterior lateral aspect (series 19, image 254) measuring 4 mm. The largest in the left upper lobe measures 4 mm along the subpleural anterolateral aspect (series 19, image 139). The largest in the left lower lobe measuring 5 mm (series 19, image 383). Central airways are patent. No pneumothorax. Debris noted along the bilateral proximal mainstem bronchi. No large pleural effusion. MEDIASTINUM: Heart is not enlarged. No pericardial effusion. Coronary artery calcifications are noted. Aorta is nonaneurysmal and demonstrates atherosclerotic calcifications. Main pulmonary artery is enlarged suggesting elements of pulmonary arterial hypertension. No enlarged lymph nodes per size criteria. Visualized portions of the thyroid are unremarkable. AXILLA: No lymphadenopathy. UPPER ABDOMEN: Gallbladder is surgically absent. Colonic diverticulosis. 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 Splenule measuring 1.1 cm. OSSEOUS STRUCTURES: Multilevel degenerative changes of the thoracolumbar spine. Chronic appearing fractures of the anterior/anterolateral left third through seventh ribs. CT/CT chest wo IV con IMPRESSION: 1. No acute process of the chest identified. 2. Multiple bilateral pulmonary nodules are noted the largest measuring up to 6 mm. Follow-up as per Fleischner criteria. 3. Main pulmonary artery is enlarged suggesting elements of pulmonary arterial hypertension. 4. Status post cholecystectomy. 5. Colonic diverticulosis. 6. 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 7. Splenule measuring 1.1 cm. 8. Chronic appearing fractures of the anterior/anterolateral left third through seventh ribs. According to the UPDATED 2017 Fleischner Society recommendations, the advised follow-up imaging for multiple solid nodules, the largest measuring 6 mm or greater, is: HIGH RISK PATIENT: CT at 3-6 months, then at 18-24 months.
--- NOTE | ~2024-01-20 | CT_ITS ---
EXAMINATION: CT HEAD WITHOUT CONTRAST CLINICAL INFORMATION: Fall pain COMPARISON: CT head from 01/15/2022 TECHNIQUE: Contiguous axial imaging was performed from the skull base to vertex without intravenous administration of contrast. This CT examination was performed using dose optimization techniques as appropriate, variously including the following: *Automated exposure control *Adjustment of mA and/or kV according to patient size (this includes techniques or standardized protocols for targeted exams where dose is matched to indication/reason for exam; i.e. extremities or head) *Use of iterative reconstruction technique DLP: 707.50 mGy-cm FINDINGS: There is no evidence of acute intracranial hemorrhage or territorial infarction. Chronic white matter small vessel ischemic changes. Cerebral atrophy with commensurate ventricular changes. No abnormal mass effect or midline shift is seen. Santos to white matter differentiation is well preserved. No extra-axial fluid collections are identified. The ventricles are normal in size. There is no abnormal attenuation within the brain parenchyma. The osseous structures and soft tissues are normal. Opacification of the right sphenoid sinus. The mastoid air cells and visualized portions of the paranasal sinuses are well aerated. CT/CT cervical spine wo IV con IMPRESSION: 1. No acute intracranial pathology. 2. Chronic white matter small vessel ischemic changes. EXAMINATION: Noncontrast CT scan of the cervical spine. INDICATION: Fall pain COMPARISON: CT cervical spine from 01/15/2022 TECHNIQUE: Helical, multidetector axial images were obtained from the occiput to the upper thorax. Coronal and sagittal reformats of the cervical spine were provided for interpretation. DLP: 266.62 mGy-cm FINDINGS: No acute fractures or dislocations of the cervical spine are seen. Straightening the normal cervical curvature. Multilevel degenerative changes. Anatomic alignment and positioning of the vertebral bodies and posterior elements is noted. The atlantoaxial joint and craniovertebral articulations are normal without evidence of subluxation. There is no prevertebral soft tissue swelling. The thyroid gland and visualized portions of the lung apices and mediastinum are unremarkable. Atherosclerotic calcifications. IMPRESSION: 1. No acute visible fracture or dislocation. 2. Straightening of the normal cervical curvature. 3. Multilevel degenerative changes.
--- NOTE | 2024-01-20 08:37 | ED_ITS ---
HPI - General Adult General Chief complaint: Fall Stated complaint: FALL LAST NIGHT,L SIDE PAIN PER EMS Time Seen by Provider: 01/20/24 08:36 Source: patient, EMS and old records reviewed Mode of arrival: EMS Limitations: no limitations History of Present Illness ED Provider: Almaz Mustafa PA-C HPI narrative: 78-year-old female with history of atrial fibrillation on Eliquis, heart failure with preserved ejection fraction, HTN, and COPD brought in from home by ambulance for evaluation after a fall around midnight last night. She was in her kitchen and got her left foot stuck on a wheelchair, fell and hit her left ribcage on the handlebars and then her head on the floor. Patient states that she has previous left rib injuries from years ago when she had to have CPR performed. Patient states that she has a history of 2 different kinds of throat cancer and because of that, she eats a lot of ice. Relieving factors: none Exacerbating factors: none Associated symptoms: denies other symptoms Treatments prior to arrival: none Related Data Home Medications ?Medication ?Instructions ?Recorded ?Confirmed simvastatin 10 mg tablet 10 mg PO BEDTIME 01/16/22 12/25/23 escitalopram oxalate 10 mg tablet 10 mg PO DAILY@0900 03/31/22 12/25/23 gabapentin 300 mg capsule 300 mg PO TID 03/31/22 12/25/23 lorazepam 1 mg tablet 1 mg PO BID PRN Anxiety 03/31/22 12/25/23 torsemide 20 mg tablet 20 mg PO DAILY 03/31/22 12/25/23 melatonin 3 mg tablet 6 mg PO BEDTIME PRN Sleep 03/24/23 12/25/23 diphenhydramine 25 1 tab PO BEDTIME PRN Pain 11/21/23 12/25/23 mg-acetaminophen 500 mg tablet (Acetaminophen PM) metoprolol tartrate 25 mg tablet 25 mg PO BID 11/21/23 12/25/23 Previous Rx's ?Medication ?Instructions ?Recorded apixaban 5 mg tablet (Eliquis) 5 mg PO BID 30 days #60 tabs 10/13/20 digoxin 125 mcg (0.125 mg) tablet 0.125 mg PO DAILY 30 days #30 tabs 01/19/22 hydrocodone 5 mg-acetaminophen 325 1 tab PO Q4-6H PRN pain #30 tabs 11/29/23 mg tablet Allergies Allergy/AdvReac Type Severity Reaction Status Date / Time amiodarone Allergy Severe Difficulty Verified 01/20/24 08:48 Breathing Review of Systems 2 Constitutional: Constitutional: Reports no additional constitutional complaints, Denies chills, Denies fever(s) and Denies night sweats Eyes: Eyes: Reports no additional eye complaints, Denies blurry vision, Denies change in vision, Denies diplopia, Denies eye discharge, Denies loss of vision and Denies eye pain ENT: Denies dizziness Cardiovascular: Cardiovascular: Reports no additional cardiovascular complaints, Denies chest pain, Denies lightheadedness, Denies Loss of Consciousness and Denies dyspnea Respiratory: Respiratory: Reports no additional respiratory complaints and Denies dyspnea Gastrointestinal: Gastrointestinal: Reports no additional gastrointestinal complaints, Denies abdominal pain, Denies melena, Denies hematochezia, Denies change in bowel habits and Denies change in stool character Genitourinary: Genitourinary: Denies hematuria, Denies urinary frequency, Denies dysuria, Denies urinary incontinence, Denies urinary hesitancy and Denies urinary urgency Musculoskeletal: Musculoskeletal: Reports no additional musculoskeletal complaints, Denies numbness and Denies tingling Comments: left rib pain, left 4th toe pain Neurologic: Denies dizziness, Denies loss of vision, Denies numbness and Denies tingling Psychiatric: Psychiatric: Reports no additional psychiatric complaints Endocrine: Endocrine: Reports no additional endocrine complaints Hematologic/Lymphatic: Hematologic/Lymphatic: Reports no additional hematologic/lymphatic complaints Allergic/Immunologic: Allergic/Immunologic: Reports no additional allergic/immunologic complaints [facility] [place] Past Medical History Attestation statement: The following information was validated with the patient. 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 Essential hypertension Throat cancer Myocardial infarct Afib HTN (hypertension) Surgical History History of laparoscopic cholecystectomy (11/29/23) Atrial fibrillation status post cardioversion Family History Family History Daughter Breast cancer Social History Social History Household Members: Children Housing: House Do you presently have visiting nurse or other home services: No Alcohol intake: former Comment: counts correct Patient Tobacco Use Status: Former Tobacco user Years Smoked: 41 yrs Smoked in Last 30 Days: No Use of substances other than those prescribed or required for medical reasons: No Advance Directives: Yes Advance Directives on File: Yes Advance Directives Date on File: 01/13/21 Do you have a plan to hurt others: No Plan service: No Current occupational status: disabled Physical Exam ED Vital Signs: Vital Signs - 24 hr 01/20/24 10:50 01/20/24 11:20 Temperature 0 F L Pulse Rate 67 67 Respiratory Rate 20 20 Blood Pressure 119/63 119/63 Pulse Oximetry 94 94 Oxygen Delivery Method Room Air Room Air BMI result Body Mass Index 28.5 Const General: cooperative, no acute distress, alert and awake Nutritional Appearance: well nourished Orientation/consciousness: patient oriented x3 Limitations: no limitations HENMT Head: Yes normal to inspection and Yes atraumatic Ears: hearing grossly normal bilaterally and external ears normal General nose exam: Normal external nose present, no nasal discharge noted and no epistaxis Face and sinus: Yes normal facial exam, No abrasion and No laceration Mouth: Normal oral and palatal mucosa present, no drooling and no muffled voice Eyes General: appearance normal, both eyes and all related structures Periorbital: periorbital findings normal Eyelids: Yes eyelids normal Conjunctivae: conjunctivae normal Pupils: Equal, round and reactive pupils present EOM: EOMs intact bilaterally Neck Neck: Yes normal visual inspection, Yes full ROM and Yes no lymphadenopathy Chest Chest palpation & inspection: normal inspection of the chest Resp Effort & Inspection: normal respiratory effort and able to speak in complete sentences GI Inspection: Yes normal to inspection Neuro General: patient oriented x3 and moves all extremities Cranial nerves: Yes Equal, round and reactive pupils present Cognition (Neuro): normal cognition Motor exam (neuro): 5/5 motor strength present throughout Sensory Exam: Normal double simultaneous stimulation for sensation Coordination: [id number] test normal Extrem Other: minimal bruising to the left 4th toe with mild angulation General: Yes full ROM and Yes capillary refill normal Psych Appearance: grossly normal Mental Status: mental status grossly normal Affect: normal affect Attitude: cooperative Thought process: Normal thought process present Thought content: Normal thought content present Insight: Good insight present (Psych) Medications Administered Discontinued Medications Generic Name Dose Route Start Last Admin Trade Name Clarita PRN Reason Stop Dose Admin Morphine Sulfate 4 mg 01/20/24 09:32 01/20/24 09:41 Morphine Sulfate 4 Mg/Ml Cartridge IVPUSH 01/20/24 09:33 4 mg ONCE ONE Administration Protocol Ondansetron HCl 4 mg 01/20/24 09:32 01/20/24 09:41 Ondansetron Hcl 4 Mg/2 Ml Vial IVPUSH 01/20/24 09:33 4 mg ONCE ONE Administration Procedures Orthopedic Fracture Reduction Fracture #1: Time Out Performed: Yes Side: left Fracture Reduction Location: toe (4th) Technique: direct manipulation Post Reduction X-rays Demonstrate: acceptable reduction Post-reduction neuro exam: intact Post-reduction vascular exam: intact Splint Applied: Yes Patient Tolerated Procedure: well Orthopedic Splinting/Casting Injury #1: Side: left Lower Extremity Injury Location: toe Lower Extremity Immobilizer: boot orthosis Medical Decision Making Medical Decision Making MDM Narrative: Patient is a 78 year old assigned female at with a history of HTN, atrial fib on Eliquis, heart failure, throat/mouth cancer, and CAD presenting to the emergency department today with left rib and left 4th toe pain. Patient's physical exam was as noted in the physical exam portion of this note. Patient's blood work showed a hyponatremia of 128 and hypokalemia of 3.2. I am suspicious these deficiencies are secondary to dilution with excessive ice intake per the patient's report. Patient's EKG showed chronic atrial fibrillation. Patient's left foot x-ray showed a displaced, mildly angulated, fracture of the distal left 4th proximal phalanx. Patient's CT head and c-spine showed no acute process. Patient's CT chest showed multiple incidental findings as well as chronic left rib fractures. I reduced the patient's left 4th toe fracture. Repeat x-ray of the left foot showed slightly improved anatomic alignment of the toe. Patient's left foot was placed in a walking boot, without incident. Patient's PMS was intact prior to and after boot placement. I explained my physical exam findings as well as all test results to the patient and the patient's daughter. I answered all questions asked by the patient and the patient's daughter. Patient received IV morphine which upon re-evaluation, she stated helped her symptoms significantly. I stressed the importance of the patient taking her medication as prescribed. I stressed the importance of the patient following up with her primary care provider and an orthopedic provider. I stressed the importance of the patient returning to the emergency department immediately if her symptoms were to worsen or if she were to develop any dizziness, shortness of breath, difficulty breathing, chest pain, blurry vision, loss of vision, nausea, vomiting, abdominal pain, fever, chills, back pain, or any other complaints. Patient and the patient's daughter verbalized agreement and understanding with this treatment plan and discharge. Differential Diagnosis Differential Diagnoses: The differential diagnosis associated with the presentation includes Toe fracture Foot fracture Rib fractures Fall Trip and fall Admission/Observation Consideration of admission/observation: Escalation of care including admission/observation considered Patient would have been admitted to the hospital had her work up had any findings where hospital admission was appropriate and her clinical presentation warranted hospital admission. Lab Data [facility] Lab Attestation statement: I reviewed the patient's lab results. My interpretation of these results are in the [facility] Rationale portion of this note. 01/20/24 09:23 01/20/24 09:23 Labs: Lab Results 01/20/24 Range/Units 09:23 WBC 10.8 (4.8-10.8) X10*3/uL RBC 3.82 L (4.20-5.50) X10*6/uL Hgb 12.2 (12.0-16.0) g/dl Hct 34.4 L (37.0-47.0) % MCV 90.1 (80.0-98.0) fL MCH 31.9 (27.0-33.0) pg MCHC 35.5 H (31.0-35.0) g/dl RDW 13.6 (11.0-16.0) % Plt Count 234 (160-400) X10*3/uL MPV 8.9 L (9.4-12.3) fL Immature Gran % (Auto) 0.3 (0.0-0.4) % Neut % (Auto) 74.2 H (45-73) % Lymph % (Auto) 14.2 L (20-40) % [place] % (Auto) 6.8 (2-11) % Eos % (Auto) 3.8 (0-4) % Baso % (Auto) 0.7 (0-2) % Lymph # (Auto) 1.5 (1.2-4.9) X10*3/uL [place] # (Auto) 0.7 (0.1-1.2) X10*3/uL Eos # (Auto) 0.4 (0.0-0.4) X10*3/uL Baso # (Auto) 0.1 (0.0-0.2) X10*3/uL Abs Immat Gran (auto) 0.03 (0.00-0.03) X10*3/uL Absolute Neuts (auto) 8.0 (2.0-8.3) x10*3/uL Absolute Nucleated RBC 0.000 (0.0-0.012) X10*3/uL Nucleated RBC % (auto) 0.0 (0.0-0.2) /100WBC PT 15.4 H (11.1-13.3) SEC INR 1.3 H (0.9-1.1) APTT 32.1 (26.0-36.8) SEC Sodium 128 L (135-145) mmol/L Potassium 3.2 L (3.3-5.1) mmol/L Chloride 84 L (96-108) mmol/L Carbon Dioxide 34 H (22-29) mmol/L Anion Gap 13 (12-20) BUN 11 (9-16) mg/dL Creatinine 0.74 (0.5-1.4) mg/dL Estim Creat Clear Calc 69.0 Estimated GFR > 60 Random Glucose 85 (60-115) mg/dL Calcium 8.8 D (8.4-10.2) mg/dL Magnesium 1.9 (1.6-2.6) mg/dL Total Bilirubin 0.5 (0.0-1.0) mg/dL AST 22 (5-31) U/L ALT 16 (0-31) U/L Alkaline Phosphatase 75 (39-117) U/L Total Creatine Kinase 94 (26-140) U/L Troponin I High Sens 11.2 (<3.5-17.0) ng/L Total Protein 6.4 L (6.5-8.0) g/dL Albumin 3.5 (3.5-5.0) g/dL Influenza Type A (PCR) NEGATIVE (Negative) Influenza Type B (PCR) NEGATIVE (Negative) RSV RNA Qual (PCR) NEGATIVE (Negative) SARS-CoV-2 RNA (RT-PCR) NEGATIVE (Negative) Independent Interpretation I performed an independent interpretation of an: EKG, Plain X-Ray and CT Scan Interpretation: My interpretation is in agreement with the radiologist's impression of these imaging studies. - EXAMINATION: XR FOOT, LEFT CLINICAL INFORMATION: Pain, injury. COMPARISON: None available. TECHNIQUE: AP, lateral, and oblique views of the left foot. FINDINGS: Displaced, mildly angulated fracture of the distal aspect of the fourth proximal phalanx. Overlying soft tissue swelling. No unexpected radiopaque foreign bodies. Moderate multifocal degenerative osteoarthritis more noticeable in the first metatarsophalangeal joint. Minimal calcaneal spurring. XR/XR foot LT min 3V IMPRESSION: Displaced, mildly angulated fracture of the distal aspect of the fourth proximal phalanx. Dictated By: Beverly Bauman Signed By: Electronically signed by Beverly Bauman 01/20/24 0957 - EXAMINATION: CT HEAD WITHOUT CONTRAST CLINICAL INFORMATION: Fall pain COMPARISON: CT head from 01/15/2022 TECHNIQUE: Contiguous axial imaging was performed from the skull base to vertex without intravenous administration of contrast. This CT examination was performed using dose optimization techniques as appropriate, variously including the following: *Automated exposure control *Adjustment of mA and/or kV according to patient size (this includes techniques or standardized protocols for targeted exams where dose is matched to indication/reason for exam; i.e. extremities or head) *Use of iterative reconstruction technique DLP: 707.50 mGy-cm FINDINGS: There is no evidence of acute intracranial hemorrhage or territorial infarction. Chronic white matter small vessel ischemic changes. Cerebral atrophy with commensurate ventricular changes. No abnormal mass effect or midline shift is seen. Santos to white matter differentiation is well preserved. No extra-axial fluid collections are identified. The ventricles are normal in size. There is no abnormal attenuation within the brain parenchyma. The osseous structures and soft tissues are normal. Opacification of the right sphenoid sinus. The mastoid air cells and visualized portions of the paranasal sinuses are well aerated. CT/CT cervical spine wo IV con IMPRESSION: 1. No acute intracranial pathology. 2. Chronic white matter small vessel ischemic changes. EXAMINATION: Noncontrast CT scan of the cervical spine. INDICATION: Fall pain COMPARISON: CT cervical spine from 01/15/2022 TECHNIQUE: Helical, multidetector axial images were obtained from the occiput to the upper thorax. Coronal and sagittal reformats of the cervical spine were provided for interpretation. DLP: 266.62 mGy-cm FINDINGS: No acute fractures or dislocations of the cervical spine are seen. Straightening the normal cervical curvature. Multilevel degenerative changes. Anatomic alignment and positioning of the vertebral bodies and posterior elements is noted. The atlantoaxial joint and craniovertebral articulations are normal without evidence of subluxation. There is no prevertebral soft tissue swelling. The thyroid gland and visualized portions of the lung apices and mediastinum are unremarkable. Atherosclerotic calcifications. IMPRESSION: 1. No acute visible fracture or dislocation. 2. Straightening of the normal cervical curvature. 3. Multilevel degenerative changes. Dictated By: Edgar Sterling MD Signed By: Electronically signed by Edgar Sterling MD 01/20/24 1010 - EXAMINATION: XR FOOT, LEFT CLINICAL INFORMATION: Post reduction. COMPARISON: Left foot radiographs done earlier the same day. TECHNIQUE: AP, lateral, and oblique views of the left foot. FINDINGS: Redemonstration of a mildly displaced fracture through the distal aspect of the fourth proximal phalanx with slightly improved anatomic alignment when compared to the prior examination. There is persistent cortical step off medially measuring up to 0.2 cm (previously 0.3 cm). No additional fracture. No dislocation. Scattered degenerative changes are similar when compared to the prior examination. Plantar calcaneal spur. XR/XR foot LT min 3V IMPRESSION: Mildly displaced fracture through the distal aspect of the fourth proximal phalanx with slightly improved anatomic alignment when compared to the prior examination. Dictated By: Balta Mandel MD Signed By: Electronically signed by Balta Mandel MD 01/20/24 1122 - Vent. Rate: 069 BPM Atrial Rate: 000 BPM P-R Int: 000 ms QRS Dur: 088 ms QT Int: 410 ms P-R-T Axes: 000 033 006 degrees QTc Int: 439 ms Atrial fibrillation Abnormal ECG When compared with ECG of 23-NOV-2023 05:05, No significant change was found Electronically Signed By:VLADISLAV BAR Dictated By: Vladislav Bar MD Signed By: Electronically signed by Vladislav Bar MD 01/20/24 4892 Radiology Impression Discussion of test interpretation with radiology: I have reviewed the radiologist's reading. Independent Historian Clinical information obtained from an independent historian. History obtained from or confirmed by: EMS (EMS provided additional history and confirmed the history provided by the patient.) and Other (patient's daughter provided additional history and confirmed the history provided by the patient.) Critical Care Time Critical Care Time Critical Care Time: Yes Total Critical Care Time: 34 Attestation: I spent 34 minutes of Critical Care Time with this patient. This does not include time spent on separately reported billable procedures. Discharge Plan Discharge Clinical Impression: Fracture of toe, Acute hyponatremia, Acute hypokalemia, Contusion of rib Patient Disposition: Home, Self-Care Instructions: Toe Fracture (ED), Potassium Content of Foods List (ED), Hyponatremia (ED), Hypokalemia (ED), Rib Contusion (ED), Walking Boot (ED) Additional Instructions: Your work up today showed a broken left 4th toe and old left sided rib fractures (healing/healed). You need to use your incentive spirometer as directed. You only need to wear the walking boot when ambulating. Your potassium was low - please increase your potassium intake. Your sodium was low - please decrease your ice chip intake and consider replacing it with electrolyte containing fluids. 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 Follow up with your primary care provider and an orthopedic provider. Return to the emergency department immediately if your symptoms worsen or if you develop any dizziness, shortness of breath, difficulty breathing, chest pain, blurry vision, loss of vision, nausea, vomiting, abdominal pain, fever, chills, back pain, or any other complaints. Prescriptions: No Action Eliquis 5 mg tablet 5 mg PO BID 30 Days Qty: 60 0RF simvastatin 10 mg Tablet 10 mg PO BEDTIME digoxin 125 mcg (0.125 mg) Tablet 0.125 mg PO DAILY 30 Days Qty: 30 0RF escitalopram oxalate 10 mg tablet 10 mg PO DAILY@0900 gabapentin 300 mg capsule 300 mg PO TID lorazepam 1 mg tablet 1 mg PO BID PRN (Reason: Anxiety) melatonin 3 mg Tablet 6 mg PO BEDTIME PRN (Reason: Sleep) diphenhydramine-acetaminophen [Acetaminophen PM] 25-500 mg Tablet 1 tab PO BEDTIME PRN (Reason: Pain) metoprolol tartrate 25 mg tablet 25 mg PO BID hydrocodone-acetaminophen 5-325 mg tablet 1 tab PO Q4-6H PRN (Reason: pain) Qty: 30 0RF Rx Instructions: Partial Fill upon patient request. torsemide 20 mg tablet 20 mg PO DAILY Referrals: [facility] [Provider Group] (Call to establish and follow up with an orthopedic provider. ) Juan Miguel Martinez MD [Primary Care Provider] - Interventions: ED Discharge Assessment Last Done: 01/20/24 11:20 Discharge Date/Time: 01/20/24 11:20 Print Language: Sudanese
--- NOTE | 2024-01-20 08:38 | ECG_ITS ---
Test Reason : UNWITNESSED FALL Blood Pressure : / mmHG Vent. Rate : 069 BPM Atrial Rate : 000 BPM P-R Int : 000 ms QRS Dur : 088 ms QT Int : 410 ms P-R-T Axes : 000 033 006 degrees QTc Int : 439 ms Atrial fibrillation Abnormal ECG When compared with ECG of 23-NOV-2023 05:05, No significant change was found Referred By: Almaz Mustafa Electronically Signed By:COLE BAR
[2024-01-20 08:42] VITALS: BP 126/75; BP 170/88; PULSE 72; PULSE 78; RESP 20; TEMP 36.5; O2SAT 126; O2SAT 95; BMI 28.5
[2024-01-20 08:51] VITALS: RESP 20
--- NOTE | 2024-01-20 08:57 | PC.NURSE ---
pt is alert and oriented, skin pwd, respirations even but diminished on the left side, pt reports around 0000 was in the kitchen and her leg got caught on the wheelchair, and tripped over the wheelchair landing on her left sided, hitting her head as well, no loc, on thinners, visible bruising to the left sikhism area and left toes/top of foot, pt is expressing a lot of pain on the left abd sided under the breast area, pt is on Eliguis, vs stable at this time
[2024-01-20 09:27] LABS: MANUAL DIFF FLAG NO
[2024-01-20 09:29] LABS: Basophils Absolute Auto 0.1 X10*3/uL (0.0-0.2); Basophils Percent Auto 0.7 % (0-2); Eosinophils Absolute Auto 0.4 X10*3/uL (0.0-0.4); Eosinophils Percent Auto 3.8 % (0-4); Hematocrit 34.4 % (37.0-47.0); Hemoglobin 12.2 g/dl (12.0-16.0); Imm Gran Abs Auto 0.03 X10*3/uL (0.00-0.03); Imm Gran Pct Auto 0.3 % (0.0-0.4); Lymphocytes Absolute Auto 1.5 X10*3/uL (1.2-4.9); Lymphocytes Percent Auto 14.2 % (20-40); Mean Corpuscular HGB Conc 35.5 g/dl (31.0-35.0); Mean Corpuscular Hemoglobin 31.9 pg (27.0-33.0); Mean Corpuscular Volume 90.1 fL (80.0-98.0); Mean Platelet Volume 8.9 fL (9.4-12.3); Monocytes Absolute Auto 0.7 X10*3/uL (0.1-1.2); Monocytes Percent Auto 6.8 % (2-11); Neutrophils Percent Auto 74.2 % (45-73); Platelet Count 234 X10*3/uL (160-400); Red Blood Count 3.82 X10*6/uL (4.20-5.50); Red Cell Distribution Width 13.6 % (11.0-16.0); White Blood Count 10.8 X10*3/uL (4.8-10.8)
[2024-01-20 09:35] LABS: INTERNATIONAL NORM RATIO 1.3 (0.9-1.1); Prothrombin Time 15.4 SEC (11.1-13.3)
[2024-01-20 09:37] LABS: Partial Thromboplastin Time 32.1 SEC (26.0-36.8)
[2024-01-20] MEDS: ondansetron HCL 4 MG/2 ML VIAL IVPUSH (09:41)
[2024-01-20] MEDS: Morphine Sulfate 4 MG/ML CARTRIDGE IVPUSH (09:41)
[2024-01-20 09:42] LABS: Alanine Aminotransferase 16 U/L (0-31); Albumin Level 3.5 g/dL (3.5-5.0); Alkaline Phosphatase 75 U/L (39-117); Anion Gap 13 (12-20); Aspartate Amino Transferase 22 U/L (5-31); Bilirubin Total 0.5 mg/dL (0.0-1.0); Blood Urea Nitrogen 11 mg/dL (9-16); Calcium 8.8 mg/dL (8.4-10.2); Carbon Dioxide 34 mmol/L (22-29); Chloride 84 mmol/L (96-108); Estimated Glomerular Filt Rate > 60; Glucose Random 85 mg/dL (60-115); Magnesium 1.9 mg/dL (1.6-2.6); Potassium 3.2 mmol/L (3.3-5.1); Sodium 128 mmol/L (135-145); Total Protein 6.4 g/dL (6.5-8.0)
[2024-01-20 09:49] LABS: Troponin-I High Sensitivity 11.2 ng/L (<3.5-17.0)
--- NOTE | 2024-01-20 10:00 | PC.NURSE ---
pt reports pain did improve some, while laying still at 6/10 but with deep inspirations jumps to 9/10
[2024-01-20 10:16] LABS: Influenza A PCR NEGATIVE (Negative); Influenza B PCR NEGATIVE (Negative); Resp Syncy Virus RNA Qual PCR NEGATIVE (Negative); SARS COV2 PCR INHOUSE NEGATIVE (Negative)
[2024-01-20 10:50] VITALS: BP 119/63; PULSE 67; RESP 20; O2SAT 94
[2024-01-20 11:20] VITALS: BP 119/63; PULSE 67; RESP 20; TEMP -17.7; TEMP 0; O2SAT 94
== END 2024-01-20 11:20 | disposition home or self-care (01) ==
PROVIDERS: Physician Assistant Medical; Emergency Provider Emergency Medicine Emergency Medical Services; PCP Internal Medicine
DX: S92.512A Displaced fracture of proximal phalanx of left lesser toe(s), initial encounter for closed fracture (principal); S20.212A Contusion of left front wall of thorax, initial encounter; S00.83XA Contusion of other part of head, initial encounter; W05.0XXA Fall from non-moving wheelchair, initial encounter; E87.1 Hypo-osmolality and hyponatremia; E87.6 Hypokalemia; R07.81 Pleurodynia; I11.0 Hypertensive heart disease with heart failure; I50.30 Unspecified diastolic (congestive) heart failure; I48.19 Other persistent atrial fibrillation; Z90.49 Acquired absence of other specified parts of digestive tract; Z79.02 Long term (current) use of antithrombotics/antiplatelets; Z79.899 Other long term (current) drug therapy; Z79.01 Long term (current) use of anticoagulants; Z87.891 Personal history of nicotine dependence; Y93.89 Activity, other specified; Y92.9 Unspecified place or not applicable; Y99.9 Unspecified external cause status; Z03.818 Encounter for observation for suspected exposure to other biological agents ruled out
CPT/HCPCS: 0241U; 28515; 36415; 70450; 71250; 72125; 73630; 80053; 82550; 83735; 84484; 85025; 85610; 85730; 93005; 94010; 96374; 96375; 99285; J2270; J2405

== ENCOUNTER → 2024-01-20 08:38 | Outpatient (BNV) | payer MEDICARE, MEDICAID, SELFPAY | PROVIDERS: Emergency Provider Emergency Medicine Emergency Medical Services; PCP Internal Medicine; Visit Provider Internal Medicine | DX: R94.31 Abnormal electrocardiogram [ECG] [EKG] (principal) | CPT/HCPCS: 93010 ==

== ENCOUNTER → 2024-01-24 14:58 | Outpatient (REF) | payer MEDICARE, MEDICAID, SELFPAY ==
--- NOTE | 2024-01-24 15:02 | CA_ITS ---
Transthoracic Echocardiogram Patient (Last, First, Middle): Lucia Ch C Gender: Female Date of : 1945 Age: 78 Procedure Date: 01/24/2024 Procedure Type: Transthoracic Echocardiogram Location: OP Height: 167.64 cm Weight: 76.2 kg BSA: 1.86 m2 Heart Rate: bpm BP: 116 / 68 mmHg Apparel Cutter: BRIDGER Referring MD: Wendy SOTOMAYOR Inductor Tester: Adebayo Lechuga MD Symptoms: I25.10 - Atherosclerotic heart disease of [place] coronary artery without... Study Quality: Fair ECG Rhythm: Atrial Fibrillation Conclusions: - 1. Normal LV ejection fraction of 65-70% with mild LVH with possible restrictive filling pattern 2. At least moderately dilated left atrium 3. Mild aortic stenosis 4. Upper limits of normal RV systolic pressure 5. No gross pericardial effusion Findings Left Ventricle Normal left ventricular size and systolic function. There is mildly increased left ventricular wall thickness. The visually estimated ejection fraction is between 65-70%. Spectral Doppler is indicative of a restrictive filling pattern. Right Ventricle Normal right ventricular cavity size and systolic function. Atria The left atrium is moderately dilated. There is lipomatous hypertrophy of the interatrial septum. There is no evidence of interatrial shunt. The right atrium is mildly dilated. Aortic Valve The aortic valve was not well visualized. There is mild calcification of the aortic valve. There is mild aortic valve stenosis. There is no aortic valve regurgitation. Mitral Valve There is mild anterior mitral leaflet thickening. There is moderate mitral annular calcification. There is mild mitral valve regurgitation. There is no mitral valve stenosis. Pulmonic Valve The pulmonic valve was not well visualized. Tricuspid Valve Likely normal tricuspid valve structure and function. There is mild tricuspid valve regurgitation. The right ventricular systolic pressure is normal. The right ventricular systolic pressure is 35 mmHg. Normal right atrial pressure. There is no evidence of pulmonary hypertension. Great Vessels The pulmonary artery was not well visualized. There is no dilatation of the ascending aorta measuring 3.20 cm. Venous The inferior vena cava is normal in size and collapses greater than 50% with inspiration. Pericardium/Pleural There is no evidence of pericardial effusion. Prior Study Comparison Changes noted compared to prior study dated: 01/17/2022. mild aortic stenosis is present Measurements 2D Linear Measurements IVSd: 1.22 0.6-0.9/0.6-1.0 cm LVIDd: 3.99 3.9-5.3/4.2-5.9 cm LVIDd Index: 2.15 2.4-3.2/2.2-3.1 cm/m2 LVIDs: 2.55 2.0-3.6 cm LVPWd: 1.27 0.7-1.1 cm Ao Root: 2.60 2.1-3.5 cm LA Diam: 5.00 2.7-3.8/3.0-4.0 cm LAIDs Index: 2.69 1.5-2.3 cm/m2 LV Mass: 216.92 67-162/88-224 g LV Mass Index: 116.62 43-95/49-115 g/m2 LVOT Diam: 2.00 3.0+(-)1.3 cm 2D Systolic Function EF 4C: 68.60 >55% EF 2C: 72.80 >55% EF BiP: 70.80 >55% Mitral Valve MV Pk E: 1.09 MV Decel Time: 206.00 E'Lateral: 8.70 E'Medial: 7.51 E/E' Med: 14.50 E/E' Lat: 12.50 PHT: 60.00 MVA PHT: 3.67 Decel Costilla: 5.31 Aortic Valve AoV Pk Christiano: 2.21 AoV Mn Christiano: 1.35 AoV VTI: 0.48 AoV Pk Grad: 20.00 Aov Mn Grad: 9.00 LORENA Cont.VTI: 2.07 LVOT LVOT Pk Christiano: 1.29 LVOT Mn Christiano: 1.00 LVOT VTI: 0.32 LVOT Pk Grad: 7.00 LVOT Mn Grad: 4.00 LVOT Diam: 2.00 LVOT Area: 3.14 Diastolic Function MV Pk E: 1.09 E'Medial: 7.51 E/E' Med: 14.50 E' Laterial: 8.70 E/E' Lat: 12.50 Right Ventricle TAPSE (mm): 22.00 TVS' Christiano: 15.00 Tricuspid Valve TR Pk Christiano: 2.85 TR Pk Grad: 32.00 RA Press: 3.00 RVSP: 35.00 Great Vessels Aorta Ao Root-2D: 2.60 2.0-3.7 cm Ao Asc: 3.20 2.1-3.4 cm Pulmonary Valve PV Pk Christiano: 0.98 Peak PV Grad: 4.00 Updated in Other Vendor System with Status of Final Adebayo Lechuga MD electronically signed on 01/25/2024 8:37:45 AM with status of Final
== END ==
LOC: HO.CARD 14:58
PROVIDERS: PCP Internal Medicine; Visit Provider Nurse Practitioner Family
DX: I25.10 Atherosclerotic heart disease of native coronary artery without angina pectoris (principal); I50.32 Chronic diastolic (congestive) heart failure
CPT/HCPCS: 93306

== ENCOUNTER → 2024-01-24 15:02 | Outpatient (BNV) | payer MEDICARE, MEDICAID, SELFPAY | PROVIDERS: PCP Internal Medicine; Visit Provider Internal Medicine Cardiovascular Disease | DX: I35.0 Nonrheumatic aortic (valve) stenosis (principal); I34.0 Nonrheumatic mitral (valve) insufficiency; I36.1 Nonrheumatic tricuspid (valve) insufficiency | CPT/HCPCS: 93306 ==

== ENCOUNTER 2024-03-14 13:57 | Emergency (ER) | payer MEDICARE, MEDICAID, SELFPAY ==
--- NOTE | ~2024-03-14 | XR_ITS ---
EXAMINATION: XR LUMBOSACRAL SPINE CLINICAL INFORMATION: Back pain COMPARISON: Lumbar spine radiographs 03/24/2023 TECHNIQUE: Three views of the lumbosacral spine. FINDINGS: Marked degenerative changes are again seen in the spine. Once again noted is posterior fixation with pedicular screws at L4 and S1 skipping L5. A disc spacer/fusion device is seen at the L4-L5 interspace. The hardware is intact. There is a mild scoliosis convex to the right. Surgical clips are present in the gallbladder fossa. When comparison is made to the prior study there's been no interval change. XR/XR lumbar spine 2-3V IMPRESSION: Stable appearance of the lumbar spine with posterior fixation L4-S1. No acute finding.
--- NOTE | 2024-03-14 14:24 | ED.BACK ---
HPI - Back Pain/Injury General Chief Complaint: Back Pain/Injury Stated Complaint: LOWER BACK PAIN Time Seen by Provider: 03/14/24 14:20 Source: patient, EMS and old records reviewed Limitations: no limitations History of Present Illness ED Provider: Armando Mcneill PA-C HPI Narrative: 78 yo female with history of afib on eliquis, CAD, HTN, chronic pain, anxiety, acalculous cholecystitis status post laparoscopic cholecystectomy, hx cardiac arrest s/p prolonged hospitalization with tracheostomy in 2020 who presents to the ER from home via EMS for evaluation of acute on chronic lower back pain and dysuria. Patient reports she uses a walker or a wheelchair at home. She was bending down to pick up worker something off of the floor when she had sudden tightening and tearing sensation in her lower back on the left side. She reports the pain is worse with any movement. She reports chronic back pain with former back surgery in the past. She has chronic numbness and tingling to her bilateral legs. Patient reports pain with urination for the last 1 or 2 weeks. She also has increased urgency and frequency. No blood in her urine. No abdominal pain, nausea, vomiting, diarrhea. No fever or chills. Patient took Ativan and Tylenol prior to coming to the hospital but she had no improvement in her pain so she called 911. MD elicited complaint: back pain and back injury Pertinent past history: prior back pain Onset (ago): hour(s) Timing: constant Severity: severe Pain scale (0-10): 10 Similar Symptoms Previously: Yes Quality: sharp and spasming Location: left lower back Radiation: left leg below the knee Exacerbating factors: movement Relieving factors: immobilization Context: bending Associated symptoms: increased urinary frequency and dysuria Treatments prior to arrival: acetaminophen Work related injury: No Related Data Home Medications ?Medication ?Instructions ?Recorded ?Confirmed simvastatin 10 mg tablet 10 mg PO BEDTIME 01/16/22 03/14/24 escitalopram oxalate 10 mg tablet 10 mg PO DAILY 03/31/22 03/14/24 gabapentin 300 mg capsule 300 mg PO TID 03/31/22 03/14/24 lorazepam 1 mg tablet 1 mg PO BID PRN Anxiety 03/31/22 03/14/24 torsemide 20 mg tablet 20 mg PO DAILY 03/31/22 03/14/24 melatonin 3 mg tablet 6 mg PO BEDTIME PRN Insomnia 03/24/23 03/14/24 diphenhydramine 25 1 tab PO BEDTIME PRN Pain 11/21/23 03/14/24 mg-acetaminophen 500 mg tablet (Acetaminophen PM) metoprolol tartrate 25 mg tablet 25 mg PO BID 11/21/23 03/14/24 acetaminophen 325 mg tablet 650 mg PO Q6H PRN Pain 03/14/24 03/14/24 (Tylenol) ascorbic acid (vitamin C) 500 mg 500 mg PO DAILY 03/14/24 03/14/24 tablet Previous Rx's ?Medication ?Instructions ?Recorded apixaban 5 mg tablet (Eliquis) 5 mg PO BID 30 days #60 tabs 10/13/20 digoxin 125 mcg (0.125 mg) tablet 0.125 mg PO DAILY 30 days #30 tabs 01/19/22 Allergies Allergy/AdvReac Type Severity Reaction Status Date / Time amiodarone Allergy Severe Difficulty Verified 03/14/24 14:33 Breathing Review of Systems Review of Systems: Yes all other systems are reviewed and are negative FORMERLY [facility], [facility] Past Medical History Medical History Fall Atrial fibrillation Acalculous cholecystitis Bacteriuria Obesity CAD (coronary artery disease) Acute hypercapnic respiratory failure due to obstructive sleep apnea Sick sinus syndrome Symptomatic bradycardia Sleep apnea PAF (paroxysmal atrial fibrillation) Heart failure with preserved ejection fraction CHF (congestive heart failure) 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 Essential hypertension Throat cancer Myocardial infarct Afib HTN (hypertension) Surgical History History of laparoscopic cholecystectomy (11/29/23) Atrial fibrillation status post cardioversion Family History Family History Daughter Breast cancer Social History Social History Household Members: Children Housing: House Do you presently have visiting nurse or other home services: No Alcohol intake: never Comment: counts correct Patient Tobacco Use Status: Former Tobacco user Years Smoked: 41 yrs Smoked in Last 30 Days: No Use of substances other than those prescribed or required for medical reasons: No Advance Directives: Yes Advance Directives on File: Yes Advance Directives Date on File: 01/13/21 Do you have a plan to hurt others: No Plan service: No Current occupational status: disabled Physical Exam Vital Signs: Vital Signs: Last Vital Signs Temp 97.6 F 03/16/24 03:39 Pulse 53 03/16/24 03:39 Resp 16 03/16/24 03:39 BP 118/66 03/16/24 09:20 Pulse Ox 98 03/16/24 03:39 O2 Del Method Room Air 03/16/24 03:39 BMI result Body Mass Index 28.3 Appearance: Alert elderly female lying on the stretcher. Oriented X3. No acute distress. Head: normocephalic, atraumatic. Eyes: Pupils equal, round and reactive to light. ENT: Pharynx normal. No tonsillar swelling or exudate. No dentition present Neck: Normal inspection. Neck supple. CVS: Irregularly irregular, bradycardic with heart rates in the 50s Pulses normal. Respiratory: No respiratory distress. Breath sounds normal. Abdomen: Soft and nontender. +BS x4 Back: Soft tissue tenderness of the low lumbar area on the left side. No midline tenderness. Positive SI joint tenderness on the left side. Negative straight leg raise test Skin: Skin warm and dry. Normal skin color. Normal skin turgor. No rashes. Extremities: No lower extremity edema. No joint swelling. Able to lift both legs up off the bed Neuro/psych: Oriented X 3. No motor deficit. No sensory deficit. CN II-XII intact. Normal speech and cognition. Course Reevaluation(s) Reevaluation #1: Patient placed in physician observation. She is pending physical therapy evaluation, case management consultation for possible home services versus short-term rehab given her back pain and limited mobility. She lives home alone. Updated patient and her 2 daughters at the bedside who were in agreement with plan. Upon re-evaluation the patient still reports significant pain with movement in her left lower back. Will restart her home gabapentin and start around the clock Tylenol. Blood pressure is soft but she is asymptomatic. She is being treated for UTI. No leukocytosis, no evidence of sepsis at this time. Ceftin order to start tomorrow as she was given 1 dose of Rocephin today. Will continue monitor pending safe disposition Time: 17:31 Reevaluation #2: Physician observation continued. Uneventful night. Vital signs stable. No complaints from nursing overnight. Med reconciliation reviewed and done. Pending disposition. Will continue to monitor. Time: 06:45 Reevaluation #3: 03/16/2024 1300 --> Observation care revealed the the patient does not meet medical necessity for hospitalization. Final disposition of discharge to acute rehab at [facility] discussed with the patient who verbalized understanding and agreement. Patient completed observation care at 1300 on 03/16/2024, total time spent in observation care was 1 day, 19 hours, and 31 minutes. Patient prescribed cefuroxime for her UTI. Medications Administered Generic Name Dose Route Start Last Admin Trade Name Freq PRN Reason Stop Dose Admin Acetaminophen 975 mg 03/14/24 17:30 03/16/24 09:18 Acetaminophen 325 Mg Tablet PO 975 mg Q8H DEE Administration Apixaban 5 mg 03/14/24 21:00 03/16/24 09:20 Apixaban 5 Mg Tablet PO 5 mg BID DEE Administration Ascorbic Acid 500 mg 03/15/24 09:00 03/16/24 09:21 Ascorbic Acid 500 Mg Tablet PO 500 mg DAILY DEE Administration Atorvastatin Calcium 10 mg 03/14/24 21:00 03/15/24 20:20 Atorvastatin Calcium 10 Mg Tablet PO 10 mg BEDTIME DEE Administration Cefuroxime Axetil 250 mg 03/15/24 09:00 03/16/24 09:21 Cefuroxime Axetil 250 Mg Tablet PO 250 mg BID DEE Administration Digoxin 0.125 mg 03/15/24 09:00 03/16/24 09:52 Digoxin 0.125 Mg Tablet PO 0.125 mg DAILY DEE Administration Gabapentin 300 mg 03/14/24 21:00 03/16/24 09:20 Gabapentin 300 Mg Capsule PO 300 mg TID DEE Administration Lorazepam 1 mg 03/15/24 22:41 03/15/24 22:54 Lorazepam 1 Mg Tablet PO 1 mg BID PRN Administration Anxiety Melatonin 6 mg 03/14/24 20:30 03/16/24 01:50 Melatonin 3 Mg Tablet PO 6 mg BEDTIME PRN Administration Insomnia Metoprolol Tartrate 25 mg 03/14/24 21:00 03/16/24 09:20 Metoprolol Tartrate 25 Mg Tablet PO 25 mg BID DEE Administration Protocol Torsemide 20 mg 03/15/24 09:00 03/16/24 09:18 Torsemide 20 Mg Tablet PO 20 mg DAILY DEE Administration Protocol Discontinued Medications Generic Name Dose Route Start Last Admin Trade Name Clarita PRN Reason Stop Dose Admin Ceftriaxone Sodium 1 gm/ 50 mls @ 100 mls/hr 03/14/24 16:30 03/14/24 17:26 Sodium Chloride IV 03/14/24 16:59 Infused ONCE ONE Infusion Oxycodone HCl 5 mg 03/14/24 14:43 03/14/24 15:04 Oxycodone Hcl Immed Release 5 Mg Tablet PO 03/14/24 14:44 5 mg ONCE ONE Administration Potassium Chloride 40 meq 03/14/24 15:48 03/14/24 16:12 Potassium Chloride Er 20 Meq Tab.Er.Prt PO 03/14/24 15:49 40 meq ONCE ONE Administration Medical Decision Making Medical Decision Making [facility] Narrative: 78-year-old female with multiple medical problems including AFib on Eliquis, CHF, history of cardiac arrest in 2020, anxiety, chronic back pain who presents to the ER for evaluation of acutely worsening low back pain on the left side after she was bending down. No fall or trauma. No red flag symptoms of low back pain. Her strength is equal and symmetrical throughout. She has pain with any movement. Lab workup performed given history of chronic and recurrent hypokalemia. She labs today show potassium of 3.0. She is on torsemide 20 mg a day. 40 of mEq kcl given. She also has a slightly low sodium of 130, bicarb is chronically elevated, likely due to chronic CO2 retention. She is saturating in the mid to low 90s on room air without any acute pulmonary distress. Blood pressure soft on arrival with systolics in the 90s. She reports a low blood pressure at baseline and is asymptomatic without any dizziness, weakness. Lab work shows no leukocytosis. Her urinalysis is positive for infection. IV Rocephin was given while she is here. No evidence of sepsis at this time. Repeat blood pressure is improved without intervention. Blood pressure slightly improved after 1 dose of oxycodone. Limiting narcotics due to blood pressure. Will restart her home gabapentin and around the clock Tylenol. Lumbar spine x-ray does not show any acute fractures or malalignment. Results were discussed with the patient and her family at the bedside. They are uncomfortable with her being discharged home, she does not have any home services and her son is never there to help care for her. Her mobility is limited due to her back pain. Patient placed in physician observation pending PT evaluation, case management consult. Differential Diagnosis Differential Diagnoses: The differential diagnosis associated with the presentation includes lumbar strain, malignancy, osteoporosis, nerve root compression, radiculopathy, plexopathy, degenerative disc disease, disc herniation, spinal stenosis, sacroiliac joint dysfunction, facet joint injury, and less likely infection?like abscess or diskitis Admission/Observation Consideration of admission/observation: Escalation of care including admission/observation considered Lab Data MDM Lab Attestation statement: I reviewed the patient's lab results. No leukocytosis, acute on chronic hyponatremia, hypokalemia 03/14/24 15:11 03/14/24 15:11 Labs: Lab Results 03/14/24 03/14/24 Range/Units 15:11 15:55 WBC 7.2 (4.8-10.8) X10*3/uL RBC 3.96 L (4.20-5.50) X10*6/uL Hgb 12.7 (12.0-16.0) g/dl Hct 36.3 L (37.0-47.0) % MCV 91.7 (80.0-98.0) fL MCH 32.1 (27.0-33.0) pg MCHC 35.0 (31.0-35.0) g/dl RDW 13.6 (11.0-16.0) % Plt Count 250 (160-400) X10*3/uL MPV 9.0 L (9.4-12.3) fL Immature Gran % (Auto) 0.4 (0.0-0.4) % Neut % (Auto) 77.1 H (45-73) % Lymph % (Auto) 13.0 L (20-40) % [place] % (Auto) 7.3 (2-11) % Eos % (Auto) 1.5 (0-4) % Baso % (Auto) 0.7 (0-2) % Lymph # (Auto) 0.9 L (1.2-4.9) X10*3/uL [place] # (Auto) 0.5 (0.1-1.2) X10*3/uL Eos # (Auto) 0.1 (0.0-0.4) X10*3/uL Baso # (Auto) 0.1 (0.0-0.2) X10*3/uL Abs Immat Gran (auto) 0.03 (0.00-0.03) X10*3/uL Absolute Neuts (auto) 5.6 (2.0-8.3) x10*3/uL Absolute Nucleated RBC 0.000 (0.0-0.012) X10*3/uL Nucleated RBC % (auto) 0.0 (0.0-0.2) /100WBC Sodium 130 L (135-145) mmol/L Potassium 3.0 L (3.3-5.1) mmol/L Chloride 82 L (96-108) mmol/L Carbon Dioxide 37 H (22-29) mmol/L Anion Gap 14 (12-20) BUN 15 (9-16) mg/dL Creatinine 1.00 (0.5-1.4) mg/dL Estim Creat Clear Calc 47.3 Estimated GFR 54 Random Glucose 107 (60-115) mg/dL Calcium 9.4 D (8.4-10.2) mg/dL Magnesium 1.9 (1.6-2.6) mg/dL Total Bilirubin 0.7 (0.0-1.0) mg/dL Direct Bilirubin 0.2 (0.0-0.5) mg/dL AST 19 (5-31) U/L ALT 13 (0-31) U/L Alkaline Phosphatase 73 (39-117) U/L Total Protein 6.6 (6.5-8.0) g/dL Albumin 3.5 (3.5-5.0) g/dL Urine Color Yellow Urine Appearance Turbid Urine pH 6.5 (5.0-9.0) Ur Specific [place] 1.010 (1.005-1.025) Urine Protein 30 (1+) H (Neg-Trace) mg/dL Urine Glucose (UA) Negative (Negative) mg/dL Urine Ketones Negative (Negative) mg/dL Urine Blood Small (1+) H (Negative) Urine Nitrite Negative (Negative) Ur Leukocyte Esterase Large (3+) H (Negative) Urine RBC 0-2 (0-2) /HPF Urine WBC 21-50 (0-5) /HPF Ur Squamous Epith Cells 6-10 (0-2) /HPF Urine Bacteria 4+ (None Seen) Hyaline Casts 0-2 (0-2) /LPF Independent Interpretation I performed an independent interpretation of an: Plain X-Ray Interpretation: No visualized acute fracture, agree with radiology read Radiology Impression Discussion of test interpretation with radiology: I have reviewed the radiologist's reading. Radiologist Impression: EXAMINATION: XR LUMBOSACRAL SPINE CLINICAL INFORMATION: Back pain COMPARISON: Lumbar spine radiographs 03/24/2023 TECHNIQUE: Three views of the lumbosacral spine. FINDINGS: Marked degenerative changes are again seen in the spine. Once again noted is posterior fixation with pedicular screws at L4 and S1 skipping L5. A disc spacer/fusion device is seen at the L4-L5 interspace. The hardware is intact. There is a mild scoliosis convex to the right. Surgical clips are present in the gallbladder fossa. When comparison is made to the prior study there's been no interval change. XR/XR lumbar spine 2-3V IMPRESSION: Stable appearance of the lumbar spine with posterior fixation L4-S1. No acute finding. Independent Historian Clinical information obtained from an independent historian. History obtained from or confirmed by: EMS and Other (Adult children with the bedside) External Record Review External record reviewed: Inpatient record, Office record, Outpatient record, Prior outpatient labs and Prior outpatient radiology Prescription Management I considered prescription management with: Pain Medication and Antibiotic Chronic Conditions Patient?s care impacted by: Other (AFib, CHF, chronic back pain) Social Determinants Patient?s care significantly limited by Social Determinants of Health including: Other Social Determinant of Health Critical Care Time Critical Care Time Critical Care Time: Yes Total Critical Care Time: 31 Attestation: I have personally provided critical care time exclusive of time spent on separately billable procedures. Time includes review of chart, lab data, radiology results, bedside evaluation of hemodynamics and mental status after narcotic administration, and monitoring for potential decompensation. Intervention performed as documented. Discharge Plan Discharge Clinical Impression: Hypokalemia Urinary tract infection Qualifiers: Urinary tract infection type: acute cystitis Hematuria presence: without hematuria Qualified Code(s): N30.00 - Acute cystitis without hematuria Strain of lumbar region Qualifiers: Encounter type: initial encounter Qualified Code(s): S39.012A - Strain of muscle, fascia and tendon of lower back, initial encounter Patient Disposition: Still a Patient Instructions: Urinary Tract Infection in Older Adults (ED) Prescriptions: No Action Eliquis 5 mg tablet 5 mg PO BID 30 Days Qty: 60 0RF simvastatin 10 mg Tablet 10 mg PO BEDTIME digoxin 125 mcg (0.125 mg) Tablet 0.125 mg PO DAILY 30 Days Qty: 30 0RF escitalopram oxalate 10 mg tablet 10 mg PO DAILY gabapentin 300 mg capsule 300 mg PO TID lorazepam 1 mg tablet 1 mg PO BID PRN (Reason: Anxiety) ascorbic acid (vitamin C) 500 mg tablet 500 mg PO DAILY acetaminophen [Tylenol] 325 mg Tablet 650 mg PO Q6H PRN (Reason: Pain) melatonin 3 mg Tablet 6 mg PO BEDTIME PRN (Reason: Insomnia) diphenhydramine-acetaminophen [Acetaminophen PM] 25-500 mg Tablet 1 tab PO BEDTIME PRN (Reason: Pain) metoprolol tartrate 25 mg tablet 25 mg PO BID torsemide 20 mg tablet 20 mg PO DAILY Referrals: [facility] [Outside] Print Language: Tamazight
[2024-03-14 14:32] VITALS: BP 94/35; BP 94/45; PULSE 53; RESP 16; TEMP 37; O2SAT 97; O2SAT 99; BMI 28.3
[2024-03-14] MEDS: oxyCODONE HCl Immed Release 5 MG TABLET PO (15:04)
--- NOTE | 2024-03-14 15:18 | PC.NURSE ---
pt medicated per OCT for 05/16 back pain
[2024-03-14 15:22] LABS: MANUAL DIFF FLAG NO
[2024-03-14 15:24] LABS: Basophils Absolute Auto 0.1 X10*3/uL (0.0-0.2); Basophils Percent Auto 0.7 % (0-2); Eosinophils Absolute Auto 0.1 X10*3/uL (0.0-0.4); Eosinophils Percent Auto 1.5 % (0-4); Hematocrit 36.3 % (37.0-47.0); Hemoglobin 12.7 g/dl (12.0-16.0); Imm Gran Abs Auto 0.03 X10*3/uL (0.00-0.03); Imm Gran Pct Auto 0.4 % (0.0-0.4); Lymphocytes Absolute Auto 0.9 X10*3/uL (1.2-4.9); Mean Corpuscular Hemoglobin 32.1 pg (27.0-33.0); Mean Corpuscular Volume 91.7 fL (80.0-98.0); Monocytes Absolute Auto 0.5 X10*3/uL (0.1-1.2); Monocytes Percent Auto 7.3 % (2-11); Neutrophils Absolute Auto 5.6 x10*3/uL (2.0-8.3); Neutrophils Percent Auto 77.1 % (45-73); Platelet Count 250 X10*3/uL (160-400); Red Blood Count 3.96 X10*6/uL (4.20-5.50); Red Cell Distribution Width 13.6 % (11.0-16.0); White Blood Count 7.2 X10*3/uL (4.8-10.8)
[2024-03-14 15:37] LABS: Alanine Aminotransferase 13 U/L (0-31); Albumin Level 3.5 g/dL (3.5-5.0); Alkaline Phosphatase 73 U/L (39-117); Anion Gap 14 (12-20); Aspartate Amino Transferase 19 U/L (5-31); Bilirubin Direct 0.2 mg/dL (0.0-0.5); Bilirubin Total 0.7 mg/dL (0.0-1.0); Blood Urea Nitrogen 15 mg/dL (9-16); Calcium 9.4 mg/dL (8.4-10.2); Carbon Dioxide 37 mmol/L (22-29); Chloride 82 mmol/L (96-108); Creatinine Clr Calc Pharmacy 47.3; Estimated Glomerular Filt Rate 54; Glucose Random 107 mg/dL (60-115); Magnesium 1.9 mg/dL (1.6-2.6); Sodium 130 mmol/L (135-145); Total Protein 6.6 g/dL (6.5-8.0)
[2024-03-14 16:08] LABS: Appearance Urine Turbid; Color Urine Yellow; Glucose Urine UA Negative (Negative); Leukocyte Esterase Urine Large (3+) (Negative); Nitrite Urine Negative (Negative); PH 6.5 (5.0-9.0); UMIC TRIGGER UACC YES; Urine Blood Small (1+) (Negative); Urine Ketones Negative (Negative); Urine Protein 30 (1+) mg/dL (Neg-Trace)
[2024-03-14] MEDS: Potassium Chloride ER 20 MEQ TAB.ER.PRT 40 MEQ PO (16:12)
[2024-03-14 16:24] VITALS: BP 99/54
[2024-03-14 16:26] LABS: Bacteria Urine 4+ (None Seen); Hyaline Casts Urine 0-2 /LPF (0-2); RBC Urine 0-2 /HPF (0-2); UACC Culture Trigger YES; WBC Urine 21-50 /HPF (0-5)
[2024-03-14] MEDS: cefTRIAXone sodium 1 GM in 0.9 % Sodium Chloride 50 ML IV (16:56)
[2024-03-14 17:22] VITALS: BP 91/54; PULSE 66; RESP 18; TEMP 36.4; O2SAT 95
[2024-03-14] MEDS: Acetaminophen 325 MG TABLET 975 MG PO (18:17)
[2024-03-14 19:02] VITALS: BP 105/57; PULSE 61; RESP 16; TEMP 37.4; O2SAT 96
--- NOTE | 2024-03-14 19:11 | MHC.CM.ED ---
CM met with patient at the request of Francine RASMUSSEN. Pt is A&Ox3. Soft spoken. Her daughters are at the bedside. HCP#1/daughter Lorraine Barrera ([phone]) and HCP#2/daughter Neida Edwards ([phone]). Pt lives with her son and grandson, although they do not provide much care. Son does the laundry. Daughters care for patient, shop, housekeeping and help with ADL's. They tell CM that sometimes their mom can do a lot and uses her walker, and sometimes she cannot. She does have a wheelchair and a hospital bed. The patient eats a ground diet with regular liquids. Pt eats a lot of ice. RN aware of diet. They have no home services. Will refer patient to [facility] for assessment for home services. According to family, patient has been resistant to help at home. Pt is willing to try. PT is pending. Will place acute referrals. Pt was at [facility] in the past. Family aware that if acute facilities decline admission, then CM will place STR locally. Pt moved to overflow unit. CM will follow for discharge planning.
--- NOTE | 2024-03-14 19:15 | MHC.EDTECH ---
This pct assumed care of Patient at 1915 ,Patient a&o ,watching television ,Call rashid within pt reach .
--- NOTE | 2024-03-14 20:14 | PHA.MEDREC ---
Pharmacy Consult ? Medication Reconciliation Pharmacy has completed the medication reconciliation, patient was unable to recall meds and asked to call her daughter. Spoke to daughter Lorraine who confirmed all medications, said pt is no longer on hydrocodone/apap.
[2024-03-14 21:07] VITALS: BP 115/58; PULSE 62; RESP 16; TEMP 36.2; O2SAT 99
--- NOTE | 2024-03-14 21:16 | MHC.EDTECH ---
ROUNDING DONE ,VITALS TAKEN ,PATIENT WAS INCONTINENT OF URINE ,CARE GIVEN ,CALL TURNER WITHIN PT REACH ,WARM BLANKET GIVEN .
[2024-03-14 21:17] VITALS: BP 115/58; PULSE 62
[2024-03-14] MEDS: Gabapentin 300 MG CAPSULE PO (21:17)
[2024-03-14] MEDS: Metoprolol Tartrate 25 MG TABLET PO (21:17)
[2024-03-14] MEDS: Apixaban 5 MG TABLET PO (21:17)
[2024-03-14] MEDS: Atorvastatin Calcium 10 MG TABLET PO (21:17)
--- NOTE | 2024-03-14 22:56 | PC.NURSE ---
Late note: Patient arrived from [facility] and was transferred to hospital bed with assistance from staff. Patient able to participate in rolling to get sheets from under her. Alert and oriented, patient is able to make needs known, no s/s of distress noted, chest rise equal and able to maintain airway without issue.
[2024-03-15 06:20] VITALS: BP 116/60; PULSE 52; RESP 15; TEMP 36.1; O2SAT 95
[2024-03-15 07:53] VITALS: BP 116/60; PULSE 52; O2SAT 95
[2024-03-15 08:28] VITALS: BP 101/48; PULSE 58
[2024-03-15] MEDS: Acetaminophen 325 MG TABLET 975 MG PO ×2 (08:29→17:22)
[2024-03-15] MEDS: Ascorbic Acid 500 MG TABLET PO (08:29)
[2024-03-15] MEDS: cefuroxime axetiL 250 MG TABLET PO ×2 (08:29→20:20)
[2024-03-15] MEDS: Apixaban 5 MG TABLET PO ×2 (08:29→20:20)
[2024-03-15] MEDS: Gabapentin 300 MG CAPSULE PO ×2 (08:29→20:20)
[2024-03-15] MEDS: Torsemide 20 MG TABLET PO (08:29)
--- NOTE | 2024-03-15 12:27 | MHC.CM.ED ---
Addendum entered by Caitlin Trimble 03/15/24 14:17: [facility] is able to accept pt on 03/16 at 1pm - [facility] arranged: pt and HCP Lorraine aware and in agreement with plan. Original Note: Pt has been accepted to [facility] acute rehab: pt may be able to transfer today pending bed availability - awaiting [facility] response. Pt aware and in agreement w/plan: requests CM contact her dtr to inform her of offer. CM to follow for finalization of d/c plan
--- NOTE | 2024-03-15 12:30 | PC.NURSE ---
pt ate a small amount of her lunch
[2024-03-15 14:00] VITALS: BP 98/43; PULSE 48; RESP 18; TEMP 37; O2SAT 98
--- NOTE | 2024-03-15 14:18 | MHC.EDTECH ---
emptied purewick canister at 900cc
--- NOTE | 2024-03-15 14:44 | PC.NURSE ---
Jen RASMUSSEN is aware of the pt's low bp and hr, pt is currently asymptomatic, will be holding the gabapentin that is do at 1500
--- NOTE | 2024-03-15 15:03 | PC.NURSE ---
plan for the pt to go to [facility] at 1300
[2024-03-15 17:20] VITALS: BP 99/61; PULSE 60; RESP 19; O2SAT 99
[2024-03-15 20:00] VITALS: BP 112/60; PULSE 49; RESP 16; TEMP 36.4; O2SAT 97
--- NOTE | 2024-03-15 20:06 | MHC.EDTECH ---
This tech took over care of patient at 1900,hourly rounds and vitals completed,patient has a pure-wick that was placed by previous shift,patient is clean and dry,repositioned to comfort,call rashid in reach
[2024-03-15] MEDS: Atorvastatin Calcium 10 MG TABLET PO (20:20)
--- NOTE | 2024-03-15 21:15 | MHC.EDTECH ---
Belongings list completed by this tech at this time,copy placed in chart.
[2024-03-15] MEDS: LORazepam 1 MG TABLET PO (22:54)
--- NOTE | 2024-03-15 22:55 | PC.NURSE ---
pt requested ativan, provider made aware, medicated per MAR
--- NOTE | 2024-03-15 23:50 | MHC.EDTECH ---
Hourly rounds completed,patient asked for a cup of ice chips,patient is resting quietly and watching TV,call rashid in reach at bedside
[2024-03-16] MEDS: Acetaminophen 325 MG TABLET 975 MG PO ×2 (00:46→09:18)
[2024-03-16] MEDS: Melatonin 3 MG TABLET 6 MG PO (01:50)
[2024-03-16 03:39] VITALS: BP 110/60; PULSE 53; RESP 16; TEMP 36.4; O2SAT 98
--- NOTE | 2024-03-16 03:39 | MHC.EDTECH ---
Hourly rounds and vitals completed,patient is clean and dry at this time,ice chips given per request,call rashid in reach
--- NOTE | 2024-03-16 06:11 | MHC.EDTECH ---
Hourly rounds completed,emptied 600MLS of yellow urine from suction canister,patient is clean and dry at this time,ice chips given per request
[2024-03-16 09:18] VITALS: BP 118/66
[2024-03-16] MEDS: Torsemide 20 MG TABLET PO (09:18)
[2024-03-16 09:20] VITALS: BP 118/66
[2024-03-16] MEDS: Gabapentin 300 MG CAPSULE PO (09:20)
[2024-03-16] MEDS: Metoprolol Tartrate 25 MG TABLET PO (09:20)
[2024-03-16] MEDS: Apixaban 5 MG TABLET PO (09:20)
[2024-03-16] MEDS: Ascorbic Acid 500 MG TABLET PO (09:21)
[2024-03-16] MEDS: cefuroxime axetiL 250 MG TABLET PO (09:21)
[2024-03-16] MEDS: Digoxin 0.125 MG TABLET PO (09:52)
[2024-03-16] MEDS: LORazepam 1 MG TABLET PO (10:40)
[2024-03-16 11:23] VITALS: BP 102/52; PULSE 53; RESP 17; TEMP 37; O2SAT 98
[2024-03-16 15:09] VITALS: BP 102/52; PULSE 53; RESP 17; TEMP 37; O2SAT 98
--- NOTE | 2024-03-16 16:22 | MHC.CM.PN ---
Pt was discharged to [facility] acute rehab via [facility] at 3pm today.
== END 2024-03-16 15:10 | disposition skilled nursing facility (03) ==
PROVIDERS: Physician Assistant; Emergency Provider Student in an Organized Health Care Education/Training Program; PCP Internal Medicine
DX: E87.6 Hypokalemia (principal); N30.00 Acute cystitis without hematuria; S39.012A Strain of muscle, fascia and tendon of lower back, initial encounter; X50.9XXA Other and unspecified overexertion or strenuous movements or postures, initial encounter; I11.0 Hypertensive heart disease with heart failure; I50.9 Heart failure, unspecified; I48.0 Paroxysmal atrial fibrillation; I25.2 Old myocardial infarction; Z87.891 Personal history of nicotine dependence; Z79.01 Long term (current) use of anticoagulants; Y93.89 Activity, other specified; Y92.019 Unspecified place in single-family (private) house as the place of occurrence of the external cause; Y99.9 Unspecified external cause status; Z79.02 Long term (current) use of antithrombotics/antiplatelets; Z79.899 Other long term (current) drug therapy; Z90.49 Acquired absence of other specified parts of digestive tract
CPT/HCPCS: 36415; 72100; 80048; 80076; 81001; 83735; 85025; 87086; 87147; 97161; 99285; J0696

== ENCOUNTER 2024-04-15 15:53 | Outpatient (REF) | payer MEDICARE, MEDICAID, SELFPAY ==
[2024-04-15 16:12] LABS: MANUAL DIFF FLAG NO
[2024-04-15 17:20] LABS: Basophils Absolute Auto 0.1 X10*3/uL (0.0-0.2); Basophils Percent Auto 0.7 % (0-2); Eosinophils Absolute Auto 0.1 X10*3/uL (0.0-0.4); Hematocrit 40.2 % (37.0-47.0); Hemoglobin 12.9 g/dl (12.0-16.0); Imm Gran Abs Auto 0.02 X10*3/uL (0.00-0.03); Imm Gran Pct Auto 0.3 % (0.0-0.4); Lymphocytes Absolute Auto 0.8 X10*3/uL (1.2-4.9); Lymphocytes Percent Auto 10.7 % (20-40); Mean Corpuscular HGB Conc 32.1 g/dl (31.0-35.0); Mean Corpuscular Hemoglobin 31.5 pg (27.0-33.0); Mean Platelet Volume 9.4 fL (9.4-12.3); Monocytes Absolute Auto 0.6 X10*3/uL (0.1-1.2); Monocytes Percent Auto 7.2 % (2-11); Neutrophils Absolute Auto 6.1 x10*3/uL (2.0-8.3); Neutrophils Percent Auto 80.1 % (45-73); Platelet Count 229 X10*3/uL (160-400); Red Cell Distribution Width 14.9 % (11.0-16.0); White Blood Count 7.6 X10*3/uL (4.8-10.8)
[2024-04-15 18:26] LABS: Alanine Aminotransferase 11 U/L (0-31); Albumin Level 3.8 g/dL (3.5-5.0); Alkaline Phosphatase 79 U/L (39-117); Anion Gap 13 (12-20); Aspartate Amino Transferase 17 U/L (5-31); Bilirubin Total 0.6 mg/dL (0.0-1.0); Blood Urea Nitrogen 8 mg/dL (9-16); Calcium 9.1 mg/dL (8.4-10.2); Carbon Dioxide 30 mmol/L (22-29); Chloride 97 mmol/L (96-108); Estimated Glomerular Filt Rate > 60; Glucose Random 107 mg/dL (60-115); Potassium 3.9 mmol/L (3.3-5.1); Sodium 136 mmol/L (135-145); Total Protein 6.7 g/dL (6.5-8.0)
== END 2024-04-15 15:54 | disposition home or self-care (01) ==
LOC: HO.LAB 15:53
PROVIDERS: PCP Internal Medicine; Visit Provider Internal Medicine
DX: Z13.89 Encounter for screening for other disorder (principal)
CPT/HCPCS: 36415; 80053; 85025

== ENCOUNTER → 2024-04-17 08:30 | Day surgery (SDC) | payer MEDICARE, MEDICAID, SELFPAY ==
--- NOTE | 2024-04-16 11:49 | HO.ANESPROP2 ---
Documented by User: Laverne Stone NP 04/16/24 11:54 HPI - Anesthesia Eval Consult details Narrative: 78yo F for Upper Endoscopy Follows [facility] Cardiology for afib, CAD, HFpEF. Last office visit 12/2023, stable Eliquis for afib s/p ERCP and lap edd 11/2023 with [facility] Active Problems Active Problems: All Active Problems S/P laparoscopic cholecystectomy (Acute) Persistent atrial fibrillation (Acute) Hospital discharge follow-up (Acute) CAD (coronary artery disease) (Acute) HTN (hypertension) (Acute) Atrial fibrillation (Acute) Heart failure with preserved ejection fraction (Acute) Acalculous cholecystitis (Acute) Past Medical History 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 Essential hypertension Throat cancer Myocardial infarct Afib HTN (hypertension) Family History Family History Daughter Breast cancer Family history of problems with anesthesia: No Surgical History Surgical History Hx of appendectomy History of back surgery History of laparoscopic cholecystectomy (11/29/23) Atrial fibrillation status post cardioversion History of Problems with Anesthesia: No Social History Social History Household Members: Children Housing: House Do you presently have visiting nurse or other home services: No Alcohol intake: never Comment: counts correct Patient Tobacco Use Status: Former Tobacco user Years Smoked: 41 yrs Smoked in Last 30 Days: No Use of substances other than those prescribed or required for medical reasons: No Advance Directives: Yes Advance Directives on File: Yes Advance Directives Date on File: 01/13/21 service: No Current occupational status: disabled Meds Allergies Allergy/AdvReac Type Severity Reaction Status Date / Time amiodarone Allergy Severe Difficulty Verified 04/17/24 10:39 Breathing Home Medications ?Medication ?Instructions ?Recorded ?Confirmed ?Last Taken ?Type simvastatin 10 mg tablet 10 mg PO BEDTIME 01/16/22 04/17/24 04/17/24 History escitalopram oxalate 10 mg tablet 10 mg PO DAILY 03/31/22 04/17/24 04/17/24 History gabapentin 300 mg capsule 300 mg PO TID 03/31/22 04/17/24 04/17/24 History lorazepam 1 mg tablet 1 mg PO BID PRN Anxiety 03/31/22 03/14/24 Unknown History torsemide 20 mg tablet 20 mg PO DAILY 03/31/22 03/14/24 04/15/24 History melatonin 3 mg tablet 6 mg PO BEDTIME PRN Insomnia 03/24/23 03/14/24 04/14/23 History diphenhydramine 25 1 tab PO BEDTIME PRN Pain 11/21/23 03/14/24 Unknown History mg-acetaminophen 500 mg tablet (Acetaminophen PM) metoprolol tartrate 25 mg tablet 25 mg PO BID 11/21/23 04/17/24 04/17/24 History acetaminophen 325 mg tablet 650 mg PO Q6H PRN Pain 03/14/24 03/14/24 Unknown History (Tylenol) ascorbic acid (vitamin C) 500 mg 500 mg PO DAILY 03/14/24 03/14/24 Unknown History tablet Exam Pertinent Lab Results Pertinent Lab Results: Laboratory Tests 04/15/24 16:11 WBC 7.6 Hgb 12.9 Hct 40.2 Plt Count 229 Sodium 136 Potassium 3.9 D Chloride 97 Carbon Dioxide 30 H BUN 8 L Creatinine 0.70 Narrative Narrative: EKG 12/2023 atrial fibrillation, ST and T-wave abnormality suggesting inferolateral ischemia, QTC 478 milliseconds, rate 87. ECHO 01/2024 Conclusions: - 1. Normal LV ejection fraction of 65-70% with mild LVH with possible restrictive filling pattern 2. At least moderately dilated left atrium 3. Mild aortic stenosis 4. Upper limits of normal RV systolic pressure 5. No gross pericardial effusion Assessment and Plan Assessment Anesthesia Assessment: Chart Reviewed Final Anesthetic Review Family History of Problems with Anesthesia: No History of Problems with Anesthesia: No Documented by User: Demar Lopez MD 04/17/24 13:52 PMFSH Past Medical History 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 Essential hypertension Throat cancer Myocardial infarct Afib HTN (hypertension) Family History Family History Daughter Breast cancer Surgical History Surgical History Hx of appendectomy History of back surgery History of laparoscopic cholecystectomy (11/29/23) Atrial fibrillation status post cardioversion Social History Social History Household Members: Children Housing: House Do you presently have visiting nurse or other home services: No Alcohol intake: never Comment: counts correct Patient Tobacco Use Status: Former Tobacco user Years Smoked: 41 yrs Smoked in Last 30 Days: No Use of substances other than those prescribed or required for medical reasons: No Advance Directives: Yes Advance Directives on File: Yes Advance Directives Date on File: 01/13/21 service: No Current occupational status: disabled Meds Allergies Allergy/AdvReac Type Severity Reaction Status Date / Time amiodarone Allergy Severe Difficulty Verified 04/17/24 10:39 Breathing Home Medications ?Medication ?Instructions ?Recorded ?Confirmed ?Last Taken ?Type simvastatin 10 mg tablet 10 mg PO BEDTIME 01/16/22 04/17/24 04/17/24 History escitalopram oxalate 10 mg tablet 10 mg PO DAILY 03/31/22 04/17/24 04/17/24 History gabapentin 300 mg capsule 300 mg PO TID 03/31/22 04/17/24 04/17/24 History lorazepam 1 mg tablet 1 mg PO BID PRN Anxiety 03/31/22 03/14/24 Unknown History torsemide 20 mg tablet 20 mg PO DAILY 03/31/22 03/14/24 04/15/24 History melatonin 3 mg tablet 6 mg PO BEDTIME PRN Insomnia 03/24/23 03/14/24 04/14/23 History diphenhydramine 25 1 tab PO BEDTIME PRN Pain 11/21/23 03/14/24 Unknown History mg-acetaminophen 500 mg tablet (Acetaminophen PM) metoprolol tartrate 25 mg tablet 25 mg PO BID 11/21/23 04/17/24 04/17/24 History acetaminophen 325 mg tablet 650 mg PO Q6H PRN Pain 03/14/24 03/14/24 Unknown History (Tylenol) ascorbic acid (vitamin C) 500 mg 500 mg PO DAILY 03/14/24 03/14/24 Unknown History tablet Assessment and Plan Assessment Anesthesia Assessment: Chart Reviewed (Procedure cancelled. See my anesthesia consult note.)
--- NOTE | 2024-04-17 09:08 | MHC.SHP ---
Pre-Procedural Eval Section A - 24 Hr Update-Section A only Date of Service: 04/17/24 Section B - Complete if H&P > 30 days Chief Complaint: pancreatic stent removal Relevant Family History (Specify if Yes): No Relevant Social History: None Present Medications: see Short Stay Collaborative assessment Medical History: Significant History (Fall Atrial fibrillation Acalculous cholecystitis Bacteriuria Obesity CAD (coronary artery disease) Acute hypercapnic respiratory failure due to obstructive sleep apnea Sick sinus syndrome Symptomatic bradycardia Sleep apnea PAF (paroxysmal atrial fibrillation) Heart failure with preserved ejection ) History of Previous Operations: Relevant previous surgery/procedure and date(s) (History of laparoscopic cholecystectomy (11/29/23) Atrial fibrillation status post cardioversion) Allergies: Allergies Allergy/AdvReac Type Severity Reaction Status Date / Time amiodarone Allergy Severe Difficulty Verified 03/14/24 14:33 Breathing Review of Systems Sugical H&P ROS: Negative: Constitution, Cardiovascular, Respiratory, Neurological, Psychiatric, Hem-Onc, Allergic/Immunologic, Gastrointestinal, Genitourinary, Musculoskeletal, Integumentary, Endocrine and Eyes/Ears/Nose/Throat Exam Surgical H&P Exam: Normal: HEENT, Normal: Heart, Normal: Lungs, Normal: Extremities, Normal: Abdomen, Normal: Skin and Normal: Neurological Plan Diagnosis/Plan: Unchanged I have reviewed the history and physical and performed a pertinent physical examination on my patient. No changes have occurred unless specified. Time Spent With Patient Time: Total time managing care of this patient today ____ minutes.
[2024-04-17 09:13] VITALS: BMI 29.4
[2024-04-17 09:18] VITALS: BP 161/97; PULSE 116; RESP 20; TEMP 36.7; O2SAT 92
[2024-04-17] MEDS: Lactated Ringers 1,000 ML 50 ML IVCONT (09:39)
--- NOTE | 2024-04-17 10:15 | P.CONAN1_ITS ---
History of Present Illness Consult details Consult date: 04/17/24 Requesting physician: Samuel Whiting Narrative: Pt presented for EGD today. HR currently Afib w RVR, HR 120s-130s (last month was 50s.) SpO2 89-92% on room air (last month was 98-99% on room air). Her chest is CTA with normal exp phase, but she has a wet rhonchorous cough and she c/o dyspnea on minimal. Denies fever. D/W Dr. Whiting. Will defer todays procedure and send her to the ED. Called the ED and spoke with Dr. Alston. I gave her metoprolol 3mg IVP which slowed her down to 100s range. 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 Essential hypertension Throat cancer Myocardial infarct Afib HTN (hypertension) Family History Family History Daughter Breast cancer Surgical History Surgical History (Updated 04/17/24 @ 09:11 by Mildred Carver RN) Hx of appendectomy History of back surgery History of laparoscopic cholecystectomy (11/29/23) Atrial fibrillation status post cardioversion Social History Social History Household Members: Children Housing: House Do you presently have visiting nurse or other home services: No Alcohol intake: never Comment: counts correct Patient Tobacco Use Status: Former Tobacco user Years Smoked: 41 yrs Use of substances other than those prescribed or required for medical reasons: No Are you DNR?: No Advance Directives: No Advance Directives Information Provided: Yes Advance Directives on File: No Advance Directives Date on File: 01/13/21 Recently lost weight without trying: No Nutrition Risks: No Nutritional Risk Patient : No service: No Current occupational status: disabled Meds Allergies Allergy/AdvReac Type Severity Reaction Status Date / Time amiodarone Allergy Severe Difficulty Verified 03/14/24 14:33 Breathing Active Medications: Current Medications Lactated Ringer's (Lr) 1,000 mls @ 50 mls/hr IVCONT .Q20H DEE Last Admin: 04/17/24 09:39 Dose: 50 mls/hr Home Medications ?Medication ?Instructions ?Recorded ?Confirmed ?Last Taken ?Type simvastatin 10 mg tablet 10 mg PO BEDTIME 01/16/22 04/17/24 04/17/24 History escitalopram oxalate 10 mg tablet 10 mg PO DAILY 03/31/22 04/17/24 04/17/24 History gabapentin 300 mg capsule 300 mg PO TID 03/31/22 04/17/24 04/17/24 History lorazepam 1 mg tablet 1 mg PO BID PRN Anxiety 03/31/22 03/14/24 Unknown History torsemide 20 mg tablet 20 mg PO DAILY 03/31/22 03/14/24 04/15/24 History melatonin 3 mg tablet 6 mg PO BEDTIME PRN Insomnia 03/24/23 03/14/24 04/14/23 History diphenhydramine 25 1 tab PO BEDTIME PRN Pain 11/21/23 03/14/24 Unknown History mg-acetaminophen 500 mg tablet (Acetaminophen PM) metoprolol tartrate 25 mg tablet 25 mg PO BID 11/21/23 04/17/24 04/17/24 History acetaminophen 325 mg tablet 650 mg PO Q6H PRN Pain 03/14/24 03/14/24 Unknown History (Tylenol) ascorbic acid (vitamin C) 500 mg 500 mg PO DAILY 03/14/24 03/14/24 Unknown History tablet Physical Exam Vital Signs: Vital Signs: Last Vital Signs Temp 98.0 F 04/17/24 09:18 Pulse 116 H 04/17/24 09:18 Resp 20 04/17/24 09:18 BP 161/97 H 04/17/24 09:18 Pulse Ox 92 04/17/24 09:18 O2 Del Method Room Air 04/17/24 09:18 BMI result Body Mass Index 29.4 Results Labs Labs: All other labs normal. Procedures Date of Service Date of Service: 04/17/24
--- NOTE | 2024-04-17 10:36 | PC.NURSE ---
patient in and out of rapid afib up to 148 per monitor. oxygen level 92-94 percent on room air. 20-22rr at rest and sob upon exertion. lungs clear and dim throughout. cough noticed but nonproductive. applied 2l n/c oxygen. patient stated she felt heart palpitations this am and has left sided rib pain since she broke her ribs from her cardiac arrest and cpr performed. unknown of when that occurred. called and spoke to her daughter maggi to verify what meds were given this morning and documented inthe computer. also recalled called maggi to let her know the plan of care and that she was being transferred to the er. nurse to nurse report given to charger tester and bedside rn and doctor to doc already given for report.
== END ==
PROVIDERS: PCP Internal Medicine; Visit Provider Internal Medicine Gastroenterology
DX: Z46.59 Encounter for fitting and adjustment of other gastrointestinal appliance and device (principal); Z53.8 Procedure and treatment not carried out for other reasons; I48.91 Unspecified atrial fibrillation; Z79.01 Long term (current) use of anticoagulants
CPT/HCPCS: J2704

== ENCOUNTER 2024-04-17 10:34 | Inpatient (IN) | payer MEDICARE, MEDICAID, SELFPAY ==
[2024-04-17] VITALS (14 sets, daily range): BP systolic 118–159; BP diastolic 67–112; PULSE 75–148; RESP 16–22; TEMP 36.2–36.8; O2SAT 88–100; BMI 29.0
--- NOTE | ~2024-04-17 | XR_ITS ---
EXAMINATION: XR CHEST CLINICAL INFORMATION: Shortness of breath COMPARISON: CT chest January 20, 2024, x-ray chest 03/21/2024 TECHNIQUE: Frontal view of the chest was obtained. FINDINGS: Lung volumes are low. Evaluation for cardiomediastinal silhouette limited due to patient rotation. Postsurgical changes at the left lung apex. Bibasilar airspace consolidations and small to moderate bilateral pleural effusions. There is a possible small to moderate right apical pneumothorax versus artifact. Correlation with clinical exam and repeat expiratory view recommended. XR/XR chest 1V IMPRESSION: 1. There is a possible small to moderate right apical pneumothorax versus artifact. Correlation with clinical exam and repeat expiratory view recommended. 2. Bibasilar airspace consolidations and small to moderate bilateral pleural effusions. This study was presented today April 17, 2024 for interpretation. Stat results provided at this time as requested by referring provider. Electronically signed by: Anuradha Flores MD 04/17/2024 01:07 PM EDT RP
--- NOTE | ~2024-04-17 | US_ITS ---
PROCEDURE: Ultrasound-guided right thoracentesis HISTORY: Right pleural effusion Specimen: A sample of pleural fluid was sent for analysis Access: 5 Beninese Yueh catheter Medications: 10 mL 1% lidocaine TECHNIQUE/FINDINGS Appropriate preprocedural clinical history and imaging studies were reviewed. The patient was brought to the department and placed in the seated position. Ultrasound images of the right thorax were obtained to localize a moderate pleural effusion. Permanent ultrasound images were saved. Risks and benefits and possible complications were discussed with the patient and consent form was signed. An area of the patient's right back was prepped and draped in usual sterile fashion. 10 mL of 1% lidocaine was used to obtain local anesthesia of the skin and deeper tissues. A standard small bore needle was introduced to sample pleural fluid and demonstrate a safe access route. A 5 Beninese Yueh catheter was then used to access the pleural cavity. 400 ml of yellow fluid was removed passively. The catheter was then removed. A dressing was applied. A postprocedure chest x-ray will be performed and will be dictated separately. There were no immediate complications. The procedure was performed by Raudel Trujillo PA-C and supervised by Dr. Boone US/US thoracentesis IMPRESSION: Ultrasound-guided right thoracentesis Electronically signed by: Shailesh Boone MD 06/21/2024 12:56 PM [facility] [place]
--- NOTE | ~2024-04-17 | XR_ITS ---
EXAMINATION: XR CHEST CLINICAL INFORMATION: Status post right thoracentesis COMPARISON: 04/17/2024 TECHNIQUE: Frontal view of the chest was obtained. FINDINGS: Small right effusion. Unchanged heart and mediastinal silhouette. Bibasilar hazy opacities. No pneumothorax. XR/XR chest 1V IMPRESSION: Small right effusion. Bibasilar hazy opacities may reflect atelectasis, aspiration, or infection. Electronically signed by: Shy Cruz MD 04/18/2024 10:36 PM EDT
--- NOTE | ~2024-04-17 | CT_ITS ---
EXAMINATION: CT ANGIOGRAM CHEST CLINICAL INFORMATION: Shortness of breath COMPARISON: CT chest January 20, 2024 TECHNIQUE: Multiple axial images were obtained through the chest after the administration of 65 mL of Omnipaque 350 intravenous contrast. Extensive vascular post-processing including two-dimensional and three-dimensional reformatted images were created and reviewed on an independent workstation. This CT examination was performed using dose optimization techniques as appropriate, variously including the following: *Automated exposure control *Adjustment of mA and/or kV according to patient size (this includes techniques or standardized protocols for targeted exams where dose is matched to indication/reason for exam; i.e. extremities or head) *Use of iterative reconstruction technique DLP: 376 mGy-cm FINDINGS: Pulmonary arteries: No evidence of pulmonary embolism. Main pulmonary artery measures 3.3 cm transverse mildly enlarged suggesting pulmonary arterial hypertension. Lungs: Compressive atelectasis at the lung bases, right greater than left. Multiple bilateral pulmonary nodules. Lung nodules have not substantial change since CAT scan January 20, 2024 in size or number. The largest lesions measures 6 mm in right middle lobe 275/508 series 6. Pleura: Large volume right pleural effusion. Small left pleural effusion. Mediastinum: No mediastinal mass or significant lymphadenopathy. Heart size is normal. Trace pericardial effusion. No aneurysm of aorta. Vascular calcification of aorta and great vessels. No bowing of the interventricular septum of the heart. Coronary arteries: Coronary calcifications present. CHEST WALL: No mass or lymphadenopathy. Upper abdomen: Small bilateral reflux of contrast into the hepatic veins suggesting elevated right heart pressure. Skeletal: Multilevel degenerative spondylosis in the spine. Old healed fracture of the anterior left third through seventh ribs. CT/CT angio chest PE protocol IMPRESSION: 1. No evidence of pulmonary embolism. 2. Large volume right pleural effusion. Small left pleural effusion. 3. Compressive atelectasis at the lung bases, right greater than left. 4. Multiple bilateral pulmonary nodules. No substantial change since CAT scan January 20, 2024. Largest nodule 6 mm in greatest 5. Mild enlargement of main pulmonary artery suggesting pulmonary arterial hypertension. 6. Small reflux of contrast into the hepatic veins suggesting elevated right heart pressure. According to the UPDATED 2017 Fleischner Society recommendations, the advised follow-up imaging for multiple solid nodules, the largest measuring 6 mm or greater, is: HIGH RISK PATIENT: CT at 3-6 months, then at 18-24 months. Electronically signed by: Cuauhtemoc Winters MD 04/17/2024 04:18 PM EDT RP
--- NOTE | 2024-04-17 10:38 | ECG_ITS ---
Test Reason : AFIB RVR Blood Pressure : / mmHG Vent. Rate : 108 BPM Atrial Rate : 000 BPM P-R Int : 000 ms QRS Dur : 078 ms QT Int : 302 ms P-R-T Axes : 000 -01 041 degrees QTc Int : 404 ms Atrial fibrillation with rapid ventricular response Low voltage QRS Abnormal ECG When compared with ECG of 20-JAN-2024 08:45, Vent. rate has increased BY 39 BPM Non-specific change in ST segment in Anterior leads Nonspecific T wave abnormality, improved in Inferior leads Referred By: Almaz Mustafa Electronically Signed By:JORDYN MILLARD
[2024-04-17 10:56] LABS: MANUAL DIFF FLAG NO
[2024-04-17 10:58] LABS: Basophils Percent Auto 0.5 % (0-2); Eosinophils Absolute Auto 0.2 X10*3/uL (0.0-0.4); Eosinophils Percent Auto 2.3 % (0-4); Hemoglobin 12.5 g/dl (12.0-16.0); Imm Gran Abs Auto 0.02 X10*3/uL (0.00-0.03); Imm Gran Pct Auto 0.3 % (0.0-0.4); Lymphocytes Absolute Auto 1.1 X10*3/uL (1.2-4.9); Lymphocytes Percent Auto 13.3 % (20-40); Mean Corpuscular HGB Conc 33.8 g/dl (31.0-35.0); Mean Corpuscular Hemoglobin 32.6 pg (27.0-33.0); Mean Corpuscular Volume 96.4 fL (80.0-98.0); Mean Platelet Volume 8.8 fL (9.4-12.3); Monocytes Absolute Auto 0.7 X10*3/uL (0.1-1.2); Monocytes Percent Auto 8.3 % (2-11); Neutrophils Percent Auto 75.3 % (45-73); Platelet Count 201 X10*3/uL (160-400); Red Blood Count 3.84 X10*6/uL (4.20-5.50); Red Cell Distribution Width 14.8 % (11.0-16.0)
--- NOTE | 2024-04-17 11:06 | PC.NURSE ---
Pt brought over from [facility], was there for upper endoscopy today. Was found to be hypoxic 89-92% per SS RN and having SOB, also found to be in afib with RVR 100-150, given 3mg of metoprolol via IVP by there. Placed on 2L O2 via NC by [facility] with improvements. Pt reports mild SOB, worsens with talking or exertion. Also reports left rib area pain, 7/10/ Alert and oriented, breathing even and unlabored while at rest. Maintained on 2L O2 via NC. Afib on bedside control engineer.
[2024-04-17 11:13] LABS: Alanine Aminotransferase 11 U/L (0-31); Albumin Level 3.7 g/dL (3.5-5.0); Alkaline Phosphatase 77 U/L (39-117); Anion Gap 11 (12-20); Aspartate Amino Transferase 16 U/L (5-31); Bilirubin Total 0.5 mg/dL (0.0-1.0); Blood Urea Nitrogen 11 mg/dL (9-16); Carbon Dioxide 29 mmol/L (22-29); Chloride 96 mmol/L (96-108); Creatinine Clr Calc Pharmacy 71.6; Estimated Glomerular Filt Rate > 60; Glucose Random 97 mg/dL (60-115); Magnesium 1.8 mg/dL (1.6-2.6); Potassium 4.3 mmol/L (3.3-5.1); Sodium 132 mmol/L (135-145); Total Protein 6.6 g/dL (6.5-8.0)
[2024-04-17 11:18] LABS: Troponin-I High Sensitivity 9.8 ng/L (<3.5-17.0)
[2024-04-17 11:35] LABS: Influenza A PCR NEGATIVE (Negative); Influenza B PCR NEGATIVE (Negative); Resp Syncy Virus RNA Qual PCR NEGATIVE (Negative); SARS COV2 PCR INHOUSE NEGATIVE (Negative)
--- NOTE | 2024-04-17 11:42 | ED.SOB ---
HPI - SOB/Dyspnea General Chief Complaint: Dyspnea Stated Complaint: from short stay Time Seen by Provider: 04/17/24 10:47 History of Present Illness HPI Narrative: Patient is a 78-year-old female with a history of atrial fibrillation. Currently on Eliquis. Patient presented today with having some coughing upper respiratory symptoms. She presented to short term surgery for an endoscopy. Was sent to the ED for further evaluation because she was coughing she was having some tachycardia. Patient baseline is on metoprolol tartrate 25 mg twice a day. Denies any changes in medication. Baseline is on furosemide 20 mg daily. Denies any fever chills any coughing congestion in the upper respiratory symptoms. Sent in for further evaluation. Related Data Home Medications ?Medication ?Instructions ?Recorded ?Confirmed simvastatin 10 mg tablet 10 mg PO BEDTIME 01/16/22 04/17/24 escitalopram oxalate 10 mg tablet 10 mg PO DAILY 03/31/22 04/17/24 gabapentin 300 mg capsule 300 mg PO TID 03/31/22 04/17/24 lorazepam 1 mg tablet 1 mg PO BID PRN Anxiety 03/31/22 03/14/24 torsemide 20 mg tablet 20 mg PO DAILY 03/31/22 03/14/24 melatonin 3 mg tablet 6 mg PO BEDTIME PRN Insomnia 03/24/23 03/14/24 diphenhydramine 25 1 tab PO BEDTIME PRN Pain 11/21/23 03/14/24 mg-acetaminophen 500 mg tablet (Acetaminophen PM) metoprolol tartrate 25 mg tablet 25 mg PO BID 11/21/23 04/17/24 acetaminophen 325 mg tablet 650 mg PO Q6H PRN Pain 03/14/24 03/14/24 (Tylenol) ascorbic acid (vitamin C) 500 mg 500 mg PO DAILY 03/14/24 03/14/24 tablet Previous Rx's ?Medication ?Instructions ?Recorded apixaban 5 mg tablet (Eliquis) 5 mg PO BID 30 days #60 tabs 10/13/20 digoxin 125 mcg (0.125 mg) tablet 0.125 mg PO DAILY 30 days #30 tabs 01/19/22 cefuroxime axetil 250 mg tablet 250 mg PO BID 7 days #14 tabs 03/16/24 Allergies Allergy/AdvReac Type Severity Reaction Status Date / Time amiodarone Allergy Severe Difficulty Verified 04/17/24 10:39 Breathing Review of Systems Review of Systems: No fever no chills Yes all other systems are reviewed and are negative [facility] Past Medical History Attestation statement: The following information was validated with the patient. 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 Essential hypertension Throat cancer Myocardial infarct Afib HTN (hypertension) Surgical History Hx of appendectomy History of back surgery History of laparoscopic cholecystectomy (11/29/23) Atrial fibrillation status post cardioversion Family History Family History Daughter Breast cancer Social History Social History Household Members: Children Housing: House Do you presently have visiting nurse or other home services: No Alcohol intake: never Comment: counts correct Patient Tobacco Use Status: Former Tobacco user Years Smoked: 41 yrs Smoked in Last 30 Days: No Use of substances other than those prescribed or required for medical reasons: No Advance Directives: Yes Advance Directives on File: Yes Advance Directives Date on File: 01/13/21 service: No Current occupational status: disabled Physical Exam Vital Signs: Vital Signs: Last Vital Signs Temp 97.6 F 04/17/24 10:36 Pulse 98 04/17/24 14:00 Resp 18 04/17/24 14:00 BP 147/85 H 04/17/24 14:00 Pulse Ox 100 04/17/24 14:00 O2 Del Method Nasal Cannula 04/17/24 14:00 O2 Flow Rate 2 04/17/24 14:00 Oxygen Flow Rate 2 04/17/24 10:36 BMI result Body Mass Index 29.0 Appearance: Alert. Oriented X3. No acute distress. Eyes: Pupils equal, round and reactive to light. ENT: Pharynx normal. Neck: Normal inspection. Neck supple. No lymph nodes noted. No crepitus CVS: Irregularly irregular Respiratory: Diminished breath sounds bilaterally small amount of crackles noted Abdomen: Soft and nontender. No rigidity. No distention. good BS x4 Skin: Skin warm and dry. Normal skin color. Normal skin turgor. Extremities: No lower extremity edema. Neurovascular intact to all extremities. No Lacerations. No Rash Neuro: Oriented X 3. No motor deficit. No sensory deficit. Moving all extermities. No slurred speech Medications Administered Discontinued Medications Generic Name Dose Route Start Last Admin Trade Name Clarita PRN Reason Stop Dose Admin Iohexol 100 ml 04/17/24 13:56 04/17/24 13:57 Iohexol 350 Mg/Ml 100 Ml Infus..Btl IV 04/17/24 13:57 65 ml ONCE ONE Administration Metoprolol Tartrate 25 mg 04/17/24 11:41 04/17/24 11:48 Metoprolol Tartrate 25 Mg Tablet PO 04/17/24 11:42 25 mg ONCE ONE Administration Protocol Medical Decision Making Medical Decision Making [facility] Narrative: Patient presents today with having a slight cough decreased oxygenation to 90% history of atrial fibrillation history of head and neck tumor. Patient was given a dose of metoprolol as she had elevated heart rate it seems to be from atrial fibrillation. She was scheduled for an EGD done on an outpatient basis. Was noted to have a high heart rate was sent down to the ED. on my arrival my interpretation of patient's EKG showed an atrial fibrillation heart rate is about 110. There is no acute ST segment elevation. QRS is normal. QTC is normal. Patient's BNP is about 810 not extreme. Patient is chest x-ray was read by Radiology as a possible pneumothorax. Had shortness of breath. Nonspecific not feeling well. COVID flu RSV were all negative. CTA of the chest was ordered. My interpretation is CTA showed a pleural effusion. The final reading from the CTA is still pending. Differential Diagnosis Differential Diagnoses: The differential diagnosis associated with the presentation includes Admission/Observation Consideration of admission/observation: Escalation of care including admission/observation considered Lab Data [facility] Lab Attestation statement: I reviewed the patient's lab results. 04/17/24 10:53 04/17/24 10:53 Labs: Lab Results 04/17/24 04/17/24 Range/Units 10:53 12:11 WBC 8.0 (4.8-10.8) X10*3/uL RBC 3.84 L (4.20-5.50) X10*6/uL Hgb 12.5 (12.0-16.0) g/dl Hct 37.0 (37.0-47.0) % MCV 96.4 (80.0-98.0) fL MCH 32.6 (27.0-33.0) pg MCHC 33.8 (31.0-35.0) g/dl RDW 14.8 (11.0-16.0) % Plt Count 201 (160-400) X10*3/uL MPV 8.8 L (9.4-12.3) fL Immature Gran % (Auto) 0.3 (0.0-0.4) % Neut % (Auto) 75.3 H (45-73) % Lymph % (Auto) 13.3 L (20-40) % [place] % (Auto) 8.3 (2-11) % Eos % (Auto) 2.3 (0-4) % Baso % (Auto) 0.5 (0-2) % Lymph # (Auto) 1.1 L (1.2-4.9) X10*3/uL [place] # (Auto) 0.7 (0.1-1.2) X10*3/uL Eos # (Auto) 0.2 (0.0-0.4) X10*3/uL Baso # (Auto) 0.0 (0.0-0.2) X10*3/uL Abs Immat Gran (auto) 0.02 (0.00-0.03) X10*3/uL Absolute Neuts (auto) 6.0 (2.0-8.3) x10*3/uL Absolute Nucleated RBC 0.000 (0.0-0.012) X10*3/uL Nucleated RBC % (auto) 0.0 (0.0-0.2) /100WBC Sodium 132 L (135-145) mmol/L Potassium 4.3 (3.3-5.1) mmol/L Chloride 96 (96-108) mmol/L Carbon Dioxide 29 (22-29) mmol/L Anion Gap 11 L (12-20) BUN 11 (9-16) mg/dL Creatinine 0.72 (0.5-1.4) mg/dL Estim Creat Clear Calc 71.6 Estimated GFR > 60 Random Glucose 97 (60-115) mg/dL Calcium 9.0 (8.4-10.2) mg/dL Magnesium 1.8 (1.6-2.6) mg/dL Total Bilirubin 0.5 (0.0-1.0) mg/dL AST 16 (5-31) U/L ALT 11 (0-31) U/L Alkaline Phosphatase 77 (39-117) U/L Troponin I High Sens 9.8 (<3.5-17.0) ng/L B-Natriuretic Peptide 810 H (<100) pg/mL Total Protein 6.6 (6.5-8.0) g/dL Albumin 3.7 (3.5-5.0) g/dL Digoxin < 0.2 L (0.8-2.0) ng/mL Influenza Type A (PCR) NEGATIVE (Negative) Influenza Type B (PCR) NEGATIVE (Negative) RSV RNA Qual (PCR) NEGATIVE (Negative) SARS-CoV-2 RNA (RT-PCR) NEGATIVE (Negative) Independent Interpretation I performed an independent interpretation of an: EKG (Atrial fibrillation heart rate is [address] segment elevation) Chronic Conditions Patient?s care impacted by: Hypertension and Cancer Atrial fibrillation, head and neck cancer Discharge Plan Discharge Clinical Impression: HTN (hypertension), Atrial fibrillation Patient Disposition: Still a Patient Prescriptions: No Action Eliquis 5 mg tablet 5 mg PO BID 30 Days Qty: 60 0RF simvastatin 10 mg Tablet 10 mg PO BEDTIME digoxin 125 mcg (0.125 mg) Tablet 0.125 mg PO DAILY 30 Days Qty: 30 0RF escitalopram oxalate 10 mg tablet 10 mg PO DAILY gabapentin 300 mg capsule 300 mg PO TID lorazepam 1 mg tablet 1 mg PO BID PRN (Reason: Anxiety) ascorbic acid (vitamin C) 500 mg tablet 500 mg PO DAILY acetaminophen [Tylenol] 325 mg Tablet 650 mg PO Q6H PRN (Reason: Pain) cefuroxime axetil 250 mg tablet 250 mg PO BID 7 Days Qty: 14 0RF melatonin 3 mg Tablet 6 mg PO BEDTIME PRN (Reason: Insomnia) diphenhydramine-acetaminophen [Acetaminophen PM] 25-500 mg Tablet 1 tab PO BEDTIME PRN (Reason: Pain) metoprolol tartrate 25 mg tablet 25 mg PO BID torsemide 20 mg tablet 20 mg PO DAILY Print Language: Latvian
[2024-04-17] MEDS: Metoprolol Tartrate 25 MG TABLET PO ×2 (11:48→22:01)
[2024-04-17 12:08] LABS: B Type Natriuretic Peptide 810 pg/mL (<100)
[2024-04-17 12:35] LABS: Digoxin < 0.2 ng/mL (0.8-2.0)
[2024-04-17] MEDS: iohexoL 350 MG/ML 100 ML INFUS..BTL IV (13:57)
--- NOTE | 2024-04-17 16:00 | MHC.EDTECH ---
This pct assumed care of Patient at 1500 ,vitals taken ,Patient was assisted unto bedside commode ,void and was assisted back to bed ,call rashid within Pt reach ,
--- NOTE | 2024-04-17 17:56 | PC.NURSE ---
Ambulation trial with no O2 per MD. This RN and tech ambulated pt with no O2, noted to quickly drop to 88% after brief period of walking, HR to 140s. Pt placed back into bed and back onto 2L O2 with improvements. MD notified
--- NOTE | 2024-04-17 18:05 | MHC.EDTECH ---
1800 ROUNDING DONE ,VITALS TAKEN ,PATIENT BELONGINGS LIST DONE ,CALL TURNER WITHIN PT REACH .
[2024-04-17] MEDS: dilTIAZem HCL 50 MG/10 ML VIAL 10 MG IVPUSH (18:08)
[2024-04-17] MEDS: Furosemide 40 MG/4 ML VIAL IVPUSH (18:08)
--- NOTE | 2024-04-17 19:07 | PHA.MEDREC ---
Addendum entered by Aileen Gonzales RPh 04/17/24 19:24: Med rec was reviewed by [facility]. Original Note: Pharmacy Consult ? Medication Reconciliation Pharmacy has completed the medication reconciliation. Spoke to patient's daughters at bedside to confirm med list. Daughters state that patient is no linger taken Cefuroxime 250 mg, Acetaminophen PM, and Potassium chloride 10 mg. Daughter states that patient is on Eliquis 5 mg bid , however she had to stop a few days prior to procedure. last takes was 04/14/24, Torsemide 20 mg was stopped over 2 weeks ago. Daughters feel that this is the reason the patient is here. they where going to continue giving her the medication every other day.
--- NOTE | 2024-04-17 21:16 | P.HPHOSP_ITS ---
History of Present Illness Date of Service: 04/17/24 Chief Complaint: Dyspnea, hypoxia A 78 years old with PMH of persistent Afib on Eliquis, CAD, HTN, dCHF who is presenting to the hospital for hypoxia and tachycardia. found to be in heart failure and Atrial fibrillation w RvR. The patient was planned for EGD today. she went to short stay surgery and was noticed to be coughing and having tachycardia in 120s. the EGD was postponed and she was sent to ED for further evaluation. She reports that she is active at home but noticed more dyspnea and getting winded quickly for the last couple of weeks, denies any chest pain or noticable change in weight. Her O2 sat noted to drop to 88% upon exertion while in ED so she was placed on O2 supplement. CXR and CT chest showed bilateral pleural effusions more on the right side and evidence of Atelactasis. No reported chest pain, nausea, vomiting, diarrhea or urinary symptoms. BNP was elevated around 800 from baseline less than 200 usually. Admitted for further evaluation and treatment. Review of Systems 2 Review of Systems: No fever, chills or weakness No chest pain, has palpitation with exertion reporting worsening shortness of breath and coughing No abdominal pain, nausea or vomiting No urinary symptoms No any rash or wounds PMFSH 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 Essential hypertension Throat cancer Myocardial infarct Afib HTN (hypertension) Family History Daughter Breast cancer Surgical History Hx of appendectomy History of back surgery History of laparoscopic cholecystectomy (11/29/23) Atrial fibrillation status post cardioversion Social History Household Members: Children Housing: House Do you presently have visiting nurse or other home services: No Alcohol intake: never Comment: counts correct Patient Tobacco Use Status: Former Tobacco user Years Smoked: 41 yrs Smoked in Last 30 Days: No Use of substances other than those prescribed or required for medical reasons: No Advance Directives: Yes Advance Directives on File: Yes Advance Directives Date on File: 01/13/21 service: No Current occupational status: disabled Meds Allergies Allergy/AdvReac Type Severity Reaction Status Date / Time amiodarone Allergy Severe Difficulty Verified 04/17/24 10:39 Breathing Home Medications ?Medication ?Instructions ?Recorded ?Confirmed ?Last Taken ?Type simvastatin 10 mg tablet 10 mg PO BEDTIME 01/16/22 04/17/24 04/17/24 History escitalopram oxalate 10 mg tablet 10 mg PO DAILY 03/31/22 04/17/24 04/17/24 History gabapentin 300 mg capsule 300 mg PO TID 03/31/22 04/17/24 04/17/24 History lorazepam 1 mg tablet 1 mg PO BID PRN Anxiety 03/31/22 04/17/24 Unknown History torsemide 20 mg tablet 20 mg PO DAILY 03/31/22 04/17/24 04/15/24 History melatonin 3 mg tablet 6 mg PO BEDTIME PRN Insomnia 03/24/23 04/17/24 04/14/23 History metoprolol tartrate 25 mg tablet 25 mg PO BID 11/21/23 04/17/24 04/17/24 History acetaminophen 325 mg tablet 650 mg PO Q6H PRN Pain 03/14/24 04/17/24 Unknown History (Tylenol) ascorbic acid (vitamin C) 500 mg 500 mg PO DAILY 03/14/24 04/17/24 04/17/24 History tablet Physical Exam 2 Vital Signs and Narrative: Vital Signs: Last Vital Signs Temp 98.2 F 04/17/24 20:29 Pulse 88 04/17/24 20:29 Resp 16 04/17/24 20:29 BP 150/84 H 04/17/24 20:29 Pulse Ox 97 04/17/24 20:29 O2 Del Method Nasal Cannula 04/17/24 20:29 O2 Flow Rate 2 04/17/24 20:29 Oxygen Flow Rate 2 04/17/24 10:36 BMI result Body Mass Index 29.0 Const: Other: Constitutional : Awake, interactive, in mild respiratory distress Neck : Normal inspection, Supple Cardiovascular : RRR, no JVP, trace bilateral lower extremity edema Respiratory : decreased right side air entry, basal bilateral crackles, no wheezes Gastrointestinal: soft, lax, Normal bowel sounds, Non tender Skin : Warm, Dry Neurological : Alert & oriented x3, No focal deficit Results Labs 04/17/24 10:53 04/17/24 10:53 Labs: Laboratory Results - last 24 hr 04/17/24 04/17/24 10:53 12:11 MCV 96.4 MCH 32.6 MCHC 33.8 RDW 14.8 Plt Count 201 MPV 8.8 L Immature Gran % (Auto) 0.3 Neut % (Auto) 75.3 H Lymph % (Auto) 13.3 L [place] % (Auto) 8.3 Eos % (Auto) 2.3 Baso % (Auto) 0.5 Lymph # (Auto) 1.1 L [place] # (Auto) 0.7 Eos # (Auto) 0.2 Baso # (Auto) 0.0 Abs Immat Gran (auto) 0.02 Absolute Neuts (auto) 6.0 Absolute Nucleated RBC 0.000 Nucleated RBC % (auto) 0.0 Anion Gap 11 L Estim Creat Clear Calc 71.6 Estimated GFR > 60 Random Glucose 97 Calcium 9.0 Magnesium 1.8 Total Bilirubin 0.5 AST 16 ALT 11 Alkaline Phosphatase 77 Troponin I High Sens 9.8 B-Natriuretic Peptide 810 H Total Protein 6.6 Albumin 3.7 Digoxin < 0.2 L Influenza Type A (PCR) NEGATIVE Influenza Type B (PCR) NEGATIVE RSV RNA Qual (PCR) NEGATIVE SARS-CoV-2 RNA (RT-PCR) NEGATIVE Imaging Radiologist's Impressions: Impressions Chest X-Ray 04/17/24 11:39 IMPRESSION: 1. There is a possible small to moderate right apical pneumothorax versus artifact. Correlation with clinical exam and repeat expiratory view recommended. 2. Bibasilar airspace consolidations and small to moderate bilateral pleural effusions. This study was presented today April 17, 2024 for interpretation. Stat results provided at this time as requested by referring provider. Electronically signed by: Anuradha Flores MD 04/17/2024 01:07 PM EDT RP Chest CTA 04/17/24 13:17 IMPRESSION: 1. No evidence of pulmonary embolism. 2. Large volume right pleural effusion. Small left pleural effusion. 3. Compressive atelectasis at the lung bases, right greater than left. 4. Multiple bilateral pulmonary nodules. No substantial change since CAT scan January 20, 2024. Largest nodule 6 mm in greatest 5. Mild enlargement of main pulmonary artery suggesting pulmonary arterial hypertension. 6. Small reflux of contrast into the hepatic veins suggesting elevated right heart pressure. According to the UPDATED 2017 Fleischner Society recommendations, the advised follow-up imaging for multiple solid nodules, the largest measuring 6 mm or greater, is: HIGH RISK PATIENT: CT at 3-6 months, then at 18-24 months. Electronically signed by: Cuauhtemoc Winters MD 04/17/2024 04:18 PM EDT RP Assessment and Plan (1) Acute respiratory failure with hypoxia: Status: Acute (2) Acute CHF: Status: Acute Plan A 78 years old with PMH of persistent Afib on Eliquis, CAD, HTN, dCHF who is presenting to the hospital for hypoxia and tachycardia. found to be in heart failure and Atrial fibrillation w RvR. Acute hypoxic respiratory failure 2/2 acute on chronic dCHF complicated with large right sided pleural effusion CXR and CT as reported Elevated BNP recent Echo in January: ejection fraction of 65-70% with mild LVH with possible restrictive filling pattern Eliquis on hold for the planned EGD, patient unable to confirm how long Started on Lasix IV , continue with 40 bid To do US Thoracentesis cardiology consult follow I\O follow BNP Atrial fibrillation with RVR better controlled with IV Digoxin level undetectable, DC ? Continue Metoprolol Keep Mg > 2 Mild acute hyponatremia related to fluid overload monitor BMP Hx CAD continue Metoprolol and statin DVT PPx SCDs pending Thoracentsis, otherwise start Lovenox pending procedure The patient will need 2 overnight hospital stay for treatment of heart failure with hypoxia and control heart rate pending cardiology consult. Quality Stroke Does the patient have a stroke diagnosis?: No VTE Prior VTE?: No VTE Risk Level:: Medical - moderate - high VTE Device Contraindication: N/A - Device Ordered VTE Drug Contraindication: Treatment Not Indicated
[2024-04-17] MEDS: Acetaminophen 325 MG TABLET 650 MG PO (22:01)
[2024-04-17] MEDS: Magnesium Sulfate/H2O 2 GM/50 ML PIGGYBACK IV (22:01)
[2024-04-17] MEDS: Melatonin 3 MG TABLET 6 MG PO (22:01)
--- NOTE | 2024-04-17 22:32 | MHC.EDTECH ---
2200 rounding done ,vitals taken ,pt was incontinent of urine ,care given and bedding change ,Pure wick in place ,fresh ice water given ,Call rashid within pt reach .
[2024-04-17] MEDS: LORazepam 0.5 MG TABLET PO (23:56)
[2024-04-18] VITALS (11 sets, daily range): BP systolic 126–170; BP diastolic 68–93; PULSE 70–89; RESP 15–20; TEMP 36.4–37.2; O2SAT 96–99
[2024-04-18] MEDS: Gabapentin 300 MG CAPSULE PO ×4 (00:26→20:54)
--- NOTE | 2024-04-18 02:35 | MHC.EDTECH ---
0200 rounding done,Patient sleeping ,700 ml urine empty from pure wick canister .Call rashid within Pt reach .
--- NOTE | 2024-04-18 04:19 | MHC.EDTECH ---
0400 rounding done ,pt sleeping ,vitals taken ,Call rashid within pt reach .
[2024-04-18 05:13] LABS: Anion Gap 13 (12-20); Blood Urea Nitrogen 10 mg/dL (9-16); Calcium 8.5 mg/dL (8.4-10.2); Carbon Dioxide 31 mmol/L (22-29); Chloride 94 mmol/L (96-108); Creatinine Clr Calc Pharmacy 78.1; Estimated Glomerular Filt Rate > 60; Glucose Random 97 mg/dL (60-115); Potassium 3.4 mmol/L (3.3-5.1); Sodium 135 mmol/L (135-145)
[2024-04-18 05:14] LABS: B Type Natriuretic Peptide 605 pg/mL (<100)
--- NOTE | 2024-04-18 06:34 | MHC.EDTECH ---
0600 rounding done ,vitals taken ,Patient awake ,Patient was incontinent of urine,care given ,bed pads and blanket change ,ice chips given ,Call rashid within Pt reach .
--- NOTE | 2024-04-18 07:00 | CA_ITS ---
Transthoracic Echocardiogram Patient (Last, First, Middle): Lucia Ch C Gender: Female Date of : 1945 Age: 78 Procedure Date: 04/18/2024 Procedure Type: Transthoracic Echocardiogram Location: [facility] [place] Height: 167.64 cm Weight: 81.65 kg BSA: 1.91 m2 Heart Rate: bpm BP: 170 / 77 mmHg Parachute Folder: JAMAAL Referring MD: Navi Wilson MD Symptoms: Assess RV and PA pressures Study Quality: Adequate Conclusions: - Moderately increased right ventricular cavity size. There is mild to moderately decreased right ventricular systolic function. - There is a moderate pericardial effusion. There are no definitive echocardiographic findings of tamponade physiology. Findings Left Ventricle Normal left ventricular size and systolic function. There is mildly increased left ventricular wall thickness. The visually estimated ejection fraction is between 60-65%. Diastolic function is indeterminate on the basis of available data. Right Ventricle Moderately increased right ventricular cavity size. There is mild to moderately decreased right ventricular systolic function. Tricuspid Valve Normal tricuspid valve structure. There is moderate tricuspid valve regurgitation. Moderately elevated right atrial pressure. Mild pulmonary hypertension is present. Venous The inferior vena cava is dilated and collapses greater than 50% with inspiration. Pericardium/Pleural There is a moderate pericardial effusion. There are no definitive echocardiographic findings of tamponade physiology. Prior Study Comparison Changes noted compared to prior study dated: 01/24/2024. Moderate RV dilation. Mod TR and small to moderate pericardial effusion. Measurements 2D Linear Measurements LVOT Diam: 1.80 3.0+(-)1.3 cm LVOT LVOT Pk Christiano: 1.14 LVOT Mn Christiano: 0.80 LVOT VTI: 0.26 LVOT Pk Grad: 5.00 LVOT Mn Grad: 3.00 LVOT Diam: 1.80 LVOT Area: 2.54 Right Ventricle TAPSE (mm): 13.40 TVS' Christiano: 9.38 Tricuspid Valve TR Pk Christiano: 2.59 TR Pk Grad: 27.00 RA Press: 8.00 RVSP: 35.00 Pulmonary Valve PV Pk Hcristiano: 0.78 Peak PV Grad: 2.00 Updated in Other Vendor System with Status of Final Navi Wilson MD electronically signed on 04/18/2024 9:46:35 PM with status of Final
[2024-04-18] MEDS: Metoprolol Tartrate 25 MG TABLET PO ×2 (07:52→20:54)
[2024-04-18] MEDS: Ascorbic Acid 500 MG TABLET PO (07:52)
[2024-04-18] MEDS: Digoxin 0.125 MG TABLET PO (07:52)
[2024-04-18] MEDS: Furosemide 40 MG/4 ML VIAL IVPUSH ×2 (07:53→17:40)
[2024-04-18] MEDS: 0.9 % Sodium Chloride Flush 3 ML SYRINGE IVFLUSH ×3 (08:06→23:17)
--- NOTE | 2024-04-18 11:42 | P.CONCA_ITS ---
History of Present Illness History of Present Illness Date of Service: 04/18/24 Requesting physician: Eli Matthew Chief complaint: Hypoxia,palpitations Narrative: [age] year female presenting with shortness of breath and AFib with RVR. She has permanent atrial fibrillation. Very poor historian. She is saying she was getting some racing of her heart and was short of breath. Also confused and saying that she is getting endoscopy today. She has history of atrial fibrillation and has been on anticoagulation. In the ER chest x-ray has shown congestive heart failure and right-sided large pleural effusion. Blood pressure is elevated. She is on diuretics 20 mg torsemide daily. Currently on IV diuretics. She is-950 mL. 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 Essential hypertension Throat cancer Myocardial infarct Afib HTN (hypertension) Family History Family History Daughter Breast cancer Surgical History Surgical History Hx of appendectomy History of back surgery History of laparoscopic cholecystectomy (11/29/23) Atrial fibrillation status post cardioversion Social History Social History Household Members: Children Housing: House Do you presently have visiting nurse or other home services: No Alcohol intake: never Comment: counts correct Patient Tobacco Use Status: Former Tobacco user Years Smoked: 41 yrs Smoked in Last 30 Days: No Use of substances other than those prescribed or required for medical reasons: No Advance Directives: Yes Advance Directives on File: Yes Advance Directives Date on File: 01/13/21 Nutrition Risks: Difficulty chewing and Difficulty swallowing service: No Current occupational status: disabled Meds Allergies Allergy/AdvReac Type Severity Reaction Status Date / Time amiodarone Allergy Severe Difficulty Verified 04/17/24 10:39 Breathing Active Medications: Current Medications Acetaminophen (Acetaminophen 325 Mg Tablet) 650 mg PO Q6H PRN PRN Reason: Pain, Mild (Pain Scale 1-3), fever or headache Last Admin: 04/17/24 22:01 Dose: 650 mg Ascorbic Acid (Ascorbic Acid 500 Mg Tablet) 500 mg PO DAILY [facility] Last Admin: 04/18/24 07:52 Dose: 500 mg Calcium Carbonate (Calcium Carbonate 750 Mg Tab.Chew) 750 mg PO Q4H PRN PRN Reason: Heartburn Digoxin (Digoxin 0.125 Mg Tablet) 0.125 mg PO DAILY [facility]; Protocol Last Admin: 04/18/24 07:52 Dose: 0.125 mg Furosemide (Furosemide 40 Mg/4 Ml Vial) 40 mg IVPUSH BID@0900,1800 [facility]; Protocol Last Admin: 04/18/24 07:53 Dose: 40 mg Gabapentin (Gabapentin 300 Mg Capsule) 300 mg PO TID [facility] Last Admin: 04/18/24 08:07 Dose: 300 mg Lorazepam (Lorazepam 0.5 Mg Tablet) 0.5 mg PO Q8H PRN PRN Reason: Anxiety Last Admin: 04/17/24 23:56 Dose: 0.5 mg Magnesium Hydroxide (Milk Of Magnesia 30 Ml Oral.Susp) 30 ml PO DAILY PRN PRN Reason: Constipation Melatonin (Melatonin 3 Mg Tablet) 6 mg PO BEDTIME PRN PRN Reason: Insomnia Last Admin: 04/17/24 22:01 Dose: 6 mg Metoprolol Tartrate (Metoprolol Tartrate 25 Mg Tablet) 25 mg PO BID [facility]; Protocol Last Admin: 04/18/24 07:52 Dose: 25 mg Ondansetron HCl (Ondansetron Hcl 4 Mg/2 Ml Vial) 4 mg IVPUSH Q8H PRN PRN Reason: Nausea and Vomiting Sodium Chloride (0.9 % Sodium Chloride Flush 3 Ml Syringe) 3 ml IVFLUSH QSHIFT [facility] Last Admin: 04/18/24 08:06 Dose: 3 ml Home Medications ?Medication ?Instructions ?Recorded ?Confirmed ?Last Taken ?Type simvastatin 10 mg tablet 10 mg PO BEDTIME 01/16/22 04/17/24 04/17/24 History escitalopram oxalate 10 mg tablet 10 mg PO DAILY 03/31/22 04/17/24 04/17/24 History gabapentin 300 mg capsule 300 mg PO TID 03/31/22 04/17/2404/17/24 History lorazepam 1 mg tablet 1 mg PO BID PRN Anxiety 03/31/22 04/17/24 Unknown History torsemide 20 mg tablet 20 mg PO DAILY 03/31/22 04/17/24 04/15/24 History melatonin 3 mg tablet 6 mg PO BEDTIME PRN Insomnia 03/24/23 04/17/24 04/14/23 History metoprolol tartrate 25 mg tablet 25 mg PO BID 11/21/23 04/17/24 04/17/24 History acetaminophen 325 mg tablet 650 mg PO Q6H PRN Pain 03/14/24 04/17/24 Unknown History (Tylenol) ascorbic acid (vitamin C) 500 mg 500 mg PO DAILY 03/14/24 04/17/24 04/17/24 History tablet Physical Exam 2 Vital Signs: Vital Signs: Last Vital Signs Temp 97.6 F 04/18/24 06:33 Pulse 77 04/18/24 08:45 Resp 16 04/18/24 08:45 BP 170/77 H 04/18/24 08:45 Pulse Ox 98 04/18/24 08:45 O2 Del Method Nasal Cannula 04/18/24 08:45 O2 Flow Rate 2 04/18/24 08:45 Oxygen Flow Rate 2 04/17/24 10:36 BMI result Body Mass Index 29.0 GENERAL APPEARANCE: in no acute distress, pleasant. NECK: no carotid bruit, ++ jugular venous distention. SKIN: no suspicious lesions, warm and dry. HEART: no murmurs, irregular rate and rhythm. LUNGS: Crackles at bases with decreased breath sounds. ABDOMEN: soft, nontender. EXTREMITIES: Mild edema. PERIPHERAL PULSES: equal. NEUROLOGIC: No gross deficits, AAO X 3 Objective Labs and Meds 04/17/24 10:53 04/18/24 04:42 Lab results: Laboratory Results - last 24 hr 04/17/24 04/17/24 04/18/24 10:53 12:11 04:42 Sodium 135 Potassium 3.4 D Chloride 94 L Carbon Dioxide 31 H Anion Gap 13 BUN 10 Creatinine 0.66 Estim Creat Clear Calc 78.1 Estimated GFR > 60 Random Glucose 97 Calcium 8.5 B-Natriuretic Peptide 810 H 605 H Digoxin < 0.2 L Imaging Radiologist's impression: Impressions Chest X-Ray 04/17/24 11:39 IMPRESSION: 1. There is a possible small to moderate right apical pneumothorax versus artifact. Correlation with clinical exam and repeat expiratory view recommended. 2. Bibasilar airspace consolidations and small to moderate bilateral pleural effusions. This study was presented today April 17, 2024 for interpretation. Stat results provided at this time as requested by referring provider. Electronically signed by: Anuradha Flores MD 04/17/2024 01:07 PM EDT RP Chest CTA 04/17/24 13:17 IMPRESSION: 1. No evidence of pulmonary embolism. 2. Large volume right pleural effusion. Small left pleural effusion. 3. Compressive atelectasis at the lung bases, right greater than left. 4. Multiple bilateral pulmonary nodules. No substantial change since CAT scan January 20, 2024. Largest nodule 6 mm in greatest 5. Mild enlargement of main pulmonary artery suggesting pulmonary arterial hypertension. 6. Small reflux of contrast into the hepatic veins suggesting elevated right heart pressure. According to the UPDATED 2017 Fleischner Society recommendations, the advised follow-up imaging for multiple solid nodules, the largest measuring 6 mm or greater, is: HIGH RISK PATIENT: CT at 3-6 months, then at 18-24 months. Electronically signed by: Cuauhtemoc Winters MD 04/17/2024 04:18 PM EDT RP Assessment and Plan (1) Acute CHF: Status: Acute (2) Atrial fibrillation: Qualifiers: Atrial fibrillation type: longstanding persistent Qualified Code(s): I 48.11 - Longstanding persistent atrial fibrillation Status: Acute (3) HTN (hypertension): Qualifiers: Hypertension type: primary hypertension Qualified Code(s): I10 - Essential (primary) hypertension Status: Acute Plan Pleasant 78-year-old lady with permanent atrial fibrillation, hypertension, coronary artery disease and known history of heart failure with preserved ejection fraction presenting with acute on chronic congestive heart failure episode. Blood pressure is elevated. She clinically appears to be volume overloaded. Agree with IV diuretics 40 mg IV b.i.d.. Add losartan 25 mg daily. Also would start her on Jardiance 10 mg daily. She already had an echocardiogram in 01/25/2024 which showed preserved biventricular function and no pulmonary hypertension before. Currently her CT scan is concerning for elevated pulmonary pressures with reflux of contrast into the hepatic vein. I think we do a limited echo to reassess right ventricular function and PA pressures. Thank you for allowing me to participate in the care of your patient. Please feel free to contact me if you have any questions. Procedures Date of Service Date of Service: 04/18/24
[2024-04-18] MEDS: Losartan Potassium 25 MG TABLET PO (12:46)
--- NOTE | 2024-04-18 14:08 | HO.PM.IMPN ---
Subjective Subjective Date of Service: 04/18/24 Interval History: See and examined this morning Follow-up for CHF. Initially sent to the emergency department from short-stay surgery were she had planned endoscopy for removal of pancreatic stent. Found to have pleural effusion and CHF breathing improving, no chest pain Review of Systems Review of Systems: Yes all other systems are reviewed and are negative Constitutional Constitutional: Denies chills and Denies fever(s) Physical Exam Vital Signs: Vital Signs: Last Vital Signs Temp 98.1 F 04/18/24 13:16 Pulse 83 04/18/24 13:16 Resp 16 04/18/24 13:16 BP 151/91 H 04/18/24 13:16 Pulse Ox 96 04/18/24 13:16 O2 Del Method Nasal Cannula 04/18/24 13:16 O2 Flow Rate 1.0 04/18/24 13:16 Oxygen Flow Rate 2 04/17/24 10:36 BMI result Body Mass Index 29.0 Const: General: cooperative, comfortable, no acute distress, alert and awake Nutritional Appearance: average body habitus Orientation/consciousness: patient oriented x3 Resp: Other: dim, no wheezing Effort & Inspection: normal respiratory effort, able to speak in complete sentences, no respiratory distress and no use of accessory muscles Cardio: Rate: regular rate GI: Inspection: No distended Palpation (GI): Soft to palpation Neuro: General: patient oriented x3 and moves all extremities Extrem: General: Yes no pedal edema Objective Data Active Medications Acetaminophen (Acetaminophen 325 Mg Tablet) 650 mg PO Q6H PRN PRN Reason: Pain, Mild (Pain Scale 1-3), fever or headache Last Admin: 04/17/24 22:01 Dose: 650 mg Documented By: FÉLIX Ascorbic Acid (Ascorbic Acid 500 Mg Tablet) 500 mg PO DAILY [facility] Last Admin: 04/18/24 07:52 Dose: 500 mg Documented By: SELMA Calcium Carbonate (Calcium Carbonate 750 Mg Tab.Chew) 750 mg PO Q4H PRN PRN Reason: Heartburn Digoxin (Digoxin 0.125 Mg Tablet) 0.125 mg PO DAILY [facility]; Protocol Last Admin: 04/18/24 07:52 Dose: 0.125 mg Documented By: SELMA Furosemide (Furosemide 40 Mg/4 Ml Vial) 40 mg IVPUSH BID@0900,1800 [facility]; Protocol Last Admin: 04/18/24 07:53 Dose: 40 mg Documented By: SELMA Gabapentin (Gabapentin 300 Mg Capsule) 300 mg PO TID [facility] Last Admin: 04/18/24 08:07 Dose: 300 mg Documented By: SELMA Lorazepam (Lorazepam 0.5 Mg Tablet) 0.5 mg PO Q8H PRN PRN Reason: Anxiety Last Admin: 04/17/24 23:56 Dose: 0.5 mg Documented By: FÉLIX Losartan Potassium (Losartan Potassium 25 Mg Tablet) 25 mg PO DAILY [facility]; Protocol Last Admin: 04/18/24 12:46 Dose: 25 mg Documented By: MARV Magnesium Hydroxide (Milk Of Magnesia 30 Ml Oral.Susp) 30 ml PO DAILY PRN PRN Reason: Constipation Melatonin (Melatonin 3 Mg Tablet) 6 mg PO BEDTIME PRN PRN Reason: Insomnia Last Admin: 04/17/24 22:01 Dose: 6 mg Documented By: FÉLIX Metoprolol Tartrate (Metoprolol Tartrate 25 Mg Tablet) 25 mg PO BID [facility]; Protocol Last Admin: 04/18/24 07:52 Dose: 25 mg Documented By: SELMA Ondansetron HCl (Ondansetron Hcl 4 Mg/2 Ml Vial) 4 mg IVPUSH Q8H PRN PRN Reason: Nausea and Vomiting Sodium Chloride (0.9 % Sodium Chloride Flush 3 Ml Syringe) 3 ml IVFLUSH QSHIFT [facility] Last Admin: 04/18/24 08:06 Dose: 3 ml Documented By: SELMA Labs 04/17/24 10:53 04/18/24 04:42 Labs: Laboratory Results - last 24 hr 04/18/24 04:42 Anion Gap 13 Estim Creat Clear Calc 78.1 Estimated GFR > 60 Random Glucose 97 Calcium 8.5 B-Natriuretic Peptide 605 H Assessment and Plan (1) Acute CHF: Status: Acute Plan A 78 years old with PMH of persistent Afib on Eliquis, CAD, HTN, dCHF who is presenting to the hospital for hypoxia and tachycardia. found to be in heart failure and Atrial fibrillation w RvR. Acute hypoxic respiratory failure 2/2 acute on chronic dCHF complicated by large right sided pleural effusion CXR and CT as reported Elevated BNP recent Echo in January: ejection fraction of 65-70% with mild LVH with possible restrictive filling pattern Started on Lasix IV, negative 1L; continue with 40 bid lasix cardiology following limited echo pending losartan added by cardiology, consider jardiance down to 1L o2, wean as tolerated Right pleural effusion US Thoracentesis planned for today follow fluid studies Atrial fibrillation with RVR HR better controlled continue digoxin, Metoprolol Keep Mg > 2 d/w GI - no plan for stent removal on this admission, okay to resume Eliquis Mild acute hyponatremia related to fluid overload resolved Hx CAD continue Metoprolol and statin DVT PPx SCDs pending Thoracentsis, otherwise start Lovenox pending procedure The patient will need 2 overnight hospital stay for treatment of heart failure with hypoxia and control heart rate pending cardiology consult. Quality Stroke Does the patient have a stroke diagnosis?: No VTE Prior VTE?: No VTE Risk Level:: Medical - moderate - high VTE Device Contraindication: N/A - Device Ordered VTE Drug Contraindication: Treatment Not Indicated
[2024-04-18 14:16] LABS: Lactate Dehydrogenase 177 U/L (122-220); Total Protein 5.9 g/dL (6.5-8.0)
--- NOTE | 2024-04-18 14:18 | PC.NURSE ---
ECHO done at the bedside , pt transferred to IR for thoracentesis
[2024-04-18] MEDS: Lidocaine HCl 1 % MPF 5 ML VIAL SUBCUT (14:52)
[2024-04-18] MEDS: Acetaminophen 325 MG TABLET 650 MG PO (15:27)
--- NOTE | 2024-04-18 15:31 | PC.NURSE ---
back from Thoracentesis , dsg to right mid back dry and intact , no sob at rest ,
[2024-04-18 15:32] LABS: MN% 86.4 %; PMN% 13.6 %; WBC Pleural Fluid 0.457 X10*3/uL
[2024-04-18 15:36] LABS: RBC Pleural Fluid < 0.002 X10*6/uL
[2024-04-18 15:37] LABS: BF Shift QC OK YES
--- NOTE | 2024-04-18 16:22 | MHC.CM.PN ---
Addendum entered by Radha Tracey 04/19/24 13:14: [facility] HAS CONFIRMED PT IS ACTIVE WITH THEM FOR PT/OT SERVICES Addendum entered by aRdha Tracey 04/19/24 10:48: CM CALLED DR AMADO OFFICE, PER ADVERTISING AGENCY MANAGER, [facility] IS THE LAST AGENCY THEY HAVE ON FILE RETURN REFERRAL PLACED Original Note: PT REPORTS SHE LIVES AT HOME WITH HER SON SHE SAYS SHE IS INDEPENDENT WITH CARE SHE HAS [facility], BUT DOES NOT KNOW THE NAME SHE REPORTS IT WAS ARRANGED BY [facility] WHERE SHE RECENTLY DISCHARGED FROM [facility] AND [facility] ON FILE PCP: BRENNAN GARCIA IMM DELIVERED DCP: [facility]
[2024-04-18 16:42] LABS: Lymphocytes Pleural Fluid 41 %; Monocytes Pleural Fluid 9 %; Neutrophils Pleural Fluid 18 %; Other Cells Plerual Fl 32 %
[2024-04-18] MEDS: Apixaban 5 MG TABLET PO (20:54)
[2024-04-18] MEDS: Melatonin 3 MG TABLET 6 MG PO (23:15)
[2024-04-18] MEDS: LORazepam 0.5 MG TABLET PO (23:49)
[2024-04-19] VITALS (8 sets, daily range): BP systolic 125–147; BP diastolic 64–94; PULSE 75–88; RESP 18–20; TEMP 36.2–36.5; O2SAT 88–100
[2024-04-19 06:57] LABS: Anion Gap 12 (12-20); Blood Urea Nitrogen 9 mg/dL (9-16); Calcium 8.9 mg/dL (8.4-10.2); Carbon Dioxide 38 mmol/L (22-29); Chloride 89 mmol/L (96-108); Creatinine Clr Calc Pharmacy 76.9; Estimated Glomerular Filt Rate > 60; Glucose Random 89 mg/dL (60-115); Potassium 3.3 mmol/L (3.3-5.1); Sodium 136 mmol/L (135-145)
[2024-04-19] MEDS: Gabapentin 300 MG CAPSULE PO ×2 (08:48→20:53)
[2024-04-19] MEDS: Apixaban 5 MG TABLET PO ×2 (08:48→20:53)
[2024-04-19] MEDS: Digoxin 0.125 MG TABLET PO (08:48)
[2024-04-19] MEDS: Ascorbic Acid 500 MG TABLET PO (08:49)
[2024-04-19] MEDS: Metoprolol Tartrate 25 MG TABLET PO ×2 (08:49→20:54)
[2024-04-19] MEDS: Acetaminophen 325 MG TABLET 650 MG PO (08:51)
[2024-04-19] MEDS: Losartan Potassium 25 MG TABLET PO (08:51)
[2024-04-19] MEDS: 0.9 % Sodium Chloride Flush 3 ML SYRINGE IVFLUSH ×2 (08:51→18:03)
[2024-04-19] MEDS: LORazepam 0.5 MG TABLET PO (11:03)
--- NOTE | 2024-04-19 11:13 | MHC.CM.PN ---
EMR reviewed and per MD rounds, pt is not medically cleared for discharge due to management of CHF and pleural effusion.
--- NOTE | 2024-04-19 11:59 | PM.PNCARD ---
Subjective Subjective Date of Service: 04/19/24 Interval history: Seen examined at bedside. She has thoracentesis yesterday. Clinically overall improving. On IV diuretics currently. Physical Exam Vital Signs: Last Vital Signs Temp 97.7 F 04/19/24 11:05 Pulse 81 04/19/24 11:05 Resp 20 04/19/24 11:05 BP 125/64 04/19/24 11:05 Pulse Ox 98 04/19/24 11:05 O2 Del Method Nasal Cannula 04/19/24 11:05 O2 Flow Rate 1 04/19/24 11:05 Oxygen Flow Rate 2 04/17/24 10:36 BMI result Body Mass Index 29.0 GENERAL APPEARANCE: in no acute distress, pleasant. NECK: no carotid bruit, mild jugular venous distention. SKIN: no suspicious lesions, warm and dry. HEART: no murmurs, irregular rate and rhythm. LUNGS: Clear to auscultation. ABDOMEN: soft, nontender. EXTREMITIES: Now edema. PERIPHERAL PULSES: equal. NEUROLOGIC: No gross deficits, AAO X 3 Objective Labs and Meds 04/17/24 10:53 04/19/24 05:58 Lab results: Laboratory Results - last 24 hr 04/18/24 04/18/24 04/19/24 04:42 14:43 05:58 Hold Purple Top SEE NOTE Sodium 136 Potassium 3.3 Chloride 89 L Carbon Dioxide 38 H Anion Gap 12 BUN 9 Creatinine 0.67 Estim Creat Clear Calc 76.9 Estimated GFR > 60 Random Glucose 89 Calcium 8.9 Lactate Dehydrogenase 177 Total Protein 5.9 L Pleural WBC 0.457 Pleural RBC < 0.002 Pleural Neutrophils 18 Pleural Lymphocytes 41 Pleural Monocytes 9 Pleural Other Cells 32 Imaging Radiologist's impression: Impressions Chest X-Ray 04/18/24 15:00 IMPRESSION: Small right effusion. Bibasilar hazy opacities may reflect atelectasis, aspiration, or infection. Electronically signed by: Shy Cruz MD 04/18/2024 10:36 PM EDT Progress Note: A&P Assessment and plan (1) Acute CHF: Status: Acute Plan Pleasant 78 year female with permanent atrial fibrillation and diastolic heart failure presenting with acute on chronic congestive heart failure. Echocardiography is showing RV dilation with tricuspid regurgitation. She has pleural effusion on chest x-ray which was drained. On IV diuretics currently. I think she can be transitioned to oral torsemide tomorrow 40 mg daily. Continue rest of the medications as before. Add spironolactone 25 mg daily. We will follow along with you. Thank you for allowing me to participate in the care of your patient. Please feel free to contact me if you have any questions. Time Spent With Patient Time: Total time managing care of this patient today ____ minutes. Progress Note: Quality Stroke Does the patient have a stroke diagnosis?: No Procedures Date of Service Date of Service: 04/19/24
[2024-04-19] MEDS: Spironolactone 25 MG TABLET PO (12:37)
--- NOTE | 2024-04-19 12:47 | PC.NURSE ---
O2sat 88% on RA, 2l via NC applied , O2sat 93%
--- NOTE | 2024-04-19 12:54 | HO.PM.IMPN ---
Subjective Subjective Date of Service: 04/19/24 Interval History: seen and examined this am Follow-up for CHF, pleural effusion Breathing improved, no chest pain, no palpitations Review of Systems Review of Systems: Yes all other systems are reviewed and are negative Constitutional Constitutional: Denies chills and Denies fever(s) ENT Ears, Nose, Mouth, and Throat: Denies dizziness Cardiovascular Cardiovascular: Denies chest pain, Denies palpitations and Denies dyspnea Respiratory Respiratory: Denies dyspnea Neurologic Neurologic: Denies dizziness Endocrine Endocrine: Denies palpitations Physical Exam Vital Signs: Vital Signs: Last Vital Signs Temp 97.7 F 04/19/24 11:05 Pulse 81 04/19/24 11:05 Resp 20 04/19/24 11:05 BP 125/64 04/19/24 11:05 Pulse Ox 93 04/19/24 12:40 O2 Del Method Nasal Cannula 04/19/24 12:40 O2 Flow Rate 2 04/19/24 12:40 Oxygen Flow Rate 2 04/17/24 10:36 BMI result Body Mass Index 29.0 Const: General: cooperative, comfortable, no acute distress, alert and awake Nutritional Appearance: average body habitus Orientation/consciousness: patient oriented x3 Resp: Effort & Inspection: normal respiratory effort, able to speak in complete sentences, no respiratory distress and no use of accessory muscles Cardio: Rate: regular rate GI: Inspection: No distended Palpation (GI): Soft to palpation Neuro: General: patient oriented x3 and moves all extremities Extrem: General: Yes no pedal edema Objective Data Active Medications Acetaminophen (Acetaminophen 325 Mg Tablet) 650 mg PO Q6H PRN PRN Reason: Pain, Mild (Pain Scale 1-3), fever or headache Last Admin: 04/19/24 08:51 Dose: 650 mg Documented By: MARV Apixaban (Apixaban 5 Mg Tablet) 5 mg PO BID [facility] Last Admin: 04/19/24 08:48 Dose: 5 mg Documented By: MARV Ascorbic Acid (Ascorbic Acid 500 Mg Tablet) 500 mg PO DAILY [facility] Last Admin: 04/19/24 08:49 Dose: 500 mg Documented By: MARV Calcium Carbonate (Calcium Carbonate 750 Mg Tab.Chew) 750 mg PO Q4H PRN PRN Reason: Heartburn Digoxin (Digoxin 0.125 Mg Tablet) 0.125 mg PO DAILY [facility]; Protocol Last Admin: 04/19/24 08:48 Dose: 0.125 mg Documented By: MARV Furosemide (Furosemide 40 Mg/4 Ml Vial) 40 mg IVPUSH BID@0900,1800 [facility]; Protocol Last Admin: 04/18/24 17:40 Dose: 40 mg Documented By: MARV Gabapentin (Gabapentin 300 Mg Capsule) 300 mg PO TID [facility] Last Admin: 04/19/24 08:48 Dose: 300 mg Documented By: MARV Lorazepam (Lorazepam 0.5 Mg Tablet) 0.5 mg PO Q8H PRN PRN Reason: Anxiety Last Admin: 04/19/24 11:03 Dose: 0.5 mg Documented By: KARLO Losartan Potassium (Losartan Potassium 25 Mg Tablet) 25 mg PO DAILY [facility]; Protocol Last Admin: 04/19/24 08:51 Dose: 25 mg Documented By: MARV Magnesium Hydroxide (Milk Of Magnesia 30 Ml Oral.Susp) 30 ml PO DAILY PRN PRN Reason: Constipation Melatonin (Melatonin 3 Mg Tablet) 6 mg PO BEDTIME PRN PRN Reason: Insomnia Last Admin: 04/18/24 23:15 Dose: 6 mg Documented By: MARVIN Metoprolol Tartrate (Metoprolol Tartrate 25 Mg Tablet) 25 mg PO BID [facility]; Protocol Last Admin: 04/19/24 08:49 Dose: 25 mg Documented By: MARV Ondansetron HCl (Ondansetron Hcl 4 Mg/2 Ml Vial) 4 mg IVPUSH Q8H PRN PRN Reason: Nausea and Vomiting Sodium Chloride (0.9 % Sodium Chloride Flush 3 Ml Syringe) 3 ml IVFLUSH QSHIFT [facility]PL[facility] Last Admin: 04/19/24 08:51 Dose: 3 ml Documented By: MARV Spironolactone (Spironolactone 25 Mg Tablet) 25 mg PO DAILY [facility]; Protocol Last Admin: 04/19/24 12:37 Dose: 25 mg Documented By: MARV Labs 04/17/24 10:53 04/19/24 05:58 Labs: Laboratory Results - last 24 hr 04/18/24 04/18/24 04/19/24 04:42 14:43 05:58 Hold Purple Top SEE NOTE Anion Gap 12 Estim Creat Clear Calc 76.9 Estimated GFR > 60 Random Glucose 89 Calcium 8.9 Lactate Dehydrogenase 177 Total Protein 5.9 L Pleural WBC 0.457 Pleural RBC < 0.002 Pleural Neutrophils 18 Pleural Lymphocytes 41 Pleural Monocytes 9 Pleural Other Cells 32 Microbiology Microbiology Results: Microbiology 04/18/24 14:43 Gram Stain - Final Thoracentesis Fluid Anaerobic Culture - Preliminary No growth to date. Body Fluid Culture - Preliminary No growth to date. Assessment and Plan (1) Acute CHF: Status: Acute (2) Acute respiratory failure with hypoxia: Status: Acute Plan A 78 years old with PMH of persistent Afib on Eliquis, CAD, HTN, dCHF who is presenting to the hospital for hypoxia and tachycardia. found to be in heart failure and Atrial fibrillation w RvR. Acute hypoxic respiratory failure 2/2 acute on chronic dCHF complicated by large right sided pleural effusion Echo 04/19 -moderately decreased right ventricular systolic function, preserved left ventricular function, moderate tricuspid regurgitation, moderate pericardial effusion was on IV lasix, bicarb trending up to 38, will transition to po diuretics in am cardiology following losartan, aldactone added by cardiology attempted to wean o2, dropped to 88%, back on 1L o2; wean as tolerated pericardial effusion no evidence of tamponade will need repeat echo as outpatient in two weeks Right pleural effusion s/p Thoracentesis 04/18 with removal of 400 cc of fluid fluid studies pending follow culture, cytology Permanent Atrial fibrillation with RVR HR better controlled continue digoxin, Metoprolol continue eliquis initally presented to [facility] for biliary stent removal but was found to be in AFib RVR and thus sent to the emergency department d/w GI - no plan for stent removal on this admission, okay to resume Eliquis; will need to be rescheduled as outpatient Mild acute hyponatremia related to fluid overload resolved Hx CAD continue Metoprolol and statin DVT PPx-eliquis ongoing inpatient stay for treatment of heart failure with hypoxia Quality Stroke Does the patient have a stroke diagnosis?: No VTE Prior VTE?: No VTE Risk Level:: Medical - moderate - high VTE Device Contraindication: N/A - Device Ordered VTE Drug Contraindication: Treatment Not Indicated
[2024-04-20] VITALS (8 sets, daily range): BP systolic 102–165; BP diastolic 56–83; PULSE 56–94; RESP 16–19; TEMP 36.2–37; O2SAT 96–100
[2024-04-20] MEDS: Acetaminophen 325 MG TABLET 650 MG PO (00:11)
[2024-04-20] MEDS: Melatonin 3 MG TABLET 6 MG PO (00:11)
[2024-04-20] MEDS: 0.9 % Sodium Chloride Flush 3 ML SYRINGE IVFLUSH ×4 (00:13→20:33)
[2024-04-20] MEDS: LORazepam 0.5 MG TABLET PO (00:46)
[2024-04-20] MEDS: LORazepam 1 MG TABLET PO (04:18)
[2024-04-20 07:35] LABS: Anion Gap 9 (12-20); Blood Urea Nitrogen 9 mg/dL (9-16); Calcium 8.8 mg/dL (8.4-10.2); Carbon Dioxide 38 mmol/L (22-29); Chloride 88 mmol/L (96-108); Creatinine Clr Calc Pharmacy 78.1; Estimated Glomerular Filt Rate > 60; Glucose Random 91 mg/dL (60-115); Potassium 3.2 mmol/L (3.3-5.1); Sodium 132 mmol/L (135-145)
[2024-04-20] MEDS: Losartan Potassium 25 MG TABLET PO (09:19)
[2024-04-20] MEDS: Metoprolol Tartrate 25 MG TABLET PO ×2 (09:20→20:31)
[2024-04-20] MEDS: Torsemide 20 MG TABLET 40 MG PO (09:20)
[2024-04-20] MEDS: Potassium Chloride Packet 20 MEQ PACKET 40 MEQ PO (09:20)
[2024-04-20] MEDS: Spironolactone 25 MG TABLET PO (09:20)
[2024-04-20] MEDS: Apixaban 5 MG TABLET PO ×2 (09:20→20:31)
[2024-04-20] MEDS: Digoxin 0.125 MG TABLET PO (09:20)
[2024-04-20] MEDS: Gabapentin 300 MG CAPSULE PO ×3 (09:21→20:31)
[2024-04-20] MEDS: Ascorbic Acid 500 MG TABLET PO (09:21)
--- NOTE | 2024-04-20 11:07 | PM.PNCARD ---
Subjective Subjective Date of Service: 04/20/24 Interval history: Seen examined at bedside. Feeling better. Physical Exam Vital Signs: Last Vital Signs Temp 98.3 F 04/20/24 07:18 Pulse 94 04/20/24 07:18 Resp 16 04/20/24 07:18 BP 165/81 H 04/20/24 07:18 Pulse Ox 100 04/20/24 07:18 O2 Del Method Room Air 04/20/24 07:18 O2 Flow Rate 2 04/20/24 03:08 Oxygen Flow Rate 2 04/17/24 10:36 BMI result Body Mass Index 29.0 GENERAL APPEARANCE: in no acute distress, pleasant. NECK: no carotid bruit, no significant jugular venous distention. SKIN: no suspicious lesions, warm and dry. HEART: no murmurs, irregular rate and rhythm. LUNGS: Clear to auscultation. ABDOMEN: soft, nontender. EXTREMITIES: Now edema. PERIPHERAL PULSES: equal. NEUROLOGIC: No gross deficits, AAO X 3 Objective Labs and Meds 04/17/24 10:53 04/20/24 06:01 Lab results: Laboratory Results - last 24 hr 04/20/24 06:01 Hold Purple Top SEE NOTE Sodium 132 L Potassium 3.2 L Chloride 88 L Carbon Dioxide 38 H Anion Gap 9 L BUN 9 Creatinine 0.66 Estim Creat Clear Calc 78.1 Estimated GFR > 60 Random Glucose 91 Calcium 8.8 Progress Note: A&P Assessment and plan (1) Acute CHF: Status: Acute Plan Pleasant 78 year female with permanent atrial fibrillation and diastolic heart failure presenting with acute on chronic congestive heart failure. Echocardiography is showing RV dilation with tricuspid regurgitation. She has pleural effusion on chest x-ray which was drained. Start torsemide 40 mg daily. Continue rest of the medications as before. On spironolactone and losartan blood pressure is improving. We will follow along with you. Thank you for allowing me to participate in the care of your patient. Please feel free to contact me if you have any questions. Time Spent With Patient Time: Total time managing care of this patient today ____ minutes. Progress Note: Quality Stroke Does the patient have a stroke diagnosis?: No Procedures Date of Service Date of Service: 04/20/24
--- NOTE | 2024-04-20 12:28 | HO.PM.IMPN ---
Subjective Subjective Date of Service: 04/20/24 Interval History: Follow-up for CHF, pleural effusion Breathing improved, no chest pain, no palpitations and sob Physical Exam Vital Signs: Vital Signs: Last Vital Signs Temp 97.1 F 04/20/24 11:11 Pulse 66 04/20/24 11:11 Resp 16 04/20/24 11:11 BP 118/56 L 04/20/24 11:11 Pulse Ox 98 04/20/24 11:11 O2 Del Method Nasal Cannula 04/20/24 11:11 O2 Flow Rate 2 04/20/24 03:08 Oxygen Flow Rate 2 04/17/24 10:36 BMI result Body Mass Index 29.0 General: AO X 3, no acute distress Resp: CTA bilateral CVS: S1,S2, irregular GI: +BS, NT, no distention Skin: No rash Neuro: motor grossly intact Psych: appropriate affect Objective Data Active Medications Acetaminophen (Acetaminophen 325 Mg Tablet) 650 mg PO Q6H PRN PRN Reason: Pain, Mild (Pain Scale 1-3), fever or headache Last Admin: 04/20/24 00:11 Dose: 650 mg Documented By: ROXANNA Apixaban (Apixaban 5 Mg Tablet) 5 mg PO BID [facility] Last Admin: 04/20/24 09:20 Dose: 5 mg Documented By: TOMMY Ascorbic Acid (Ascorbic Acid 500 Mg Tablet) 500 mg PO DAILY [facility] Last Admin: 04/20/24 09:21 Dose: 500 mg Documented By: TOMMY Calcium Carbonate (Calcium Carbonate 750 Mg Tab.Chew) 750 mg PO Q4H PRN PRN Reason: Heartburn Digoxin (Digoxin 0.125 Mg Tablet) 0.125 mg PO DAILY [facility]; Protocol Last Admin: 04/20/24 09:20 Dose: 0.125 mg Documented By: TOMMY Gabapentin (Gabapentin 300 Mg Capsule) 300 mg PO TID [facility] Last Admin: 04/20/24 09:21 Dose: 300 mg Documented By: TOMMY Lorazepam (Lorazepam 0.5 Mg Tablet) 0.5 mg PO Q8H PRN PRN Reason: Anxiety Last Admin: 04/20/24 00:46 Dose: 0.5 mg Documented By: ROXANNA Losartan Potassium (Losartan Potassium 25 Mg Tablet) 25 mg PO DAILY [facility]; Protocol Last Admin: 04/20/24 09:19 Dose: 25 mg Documented By: TOMMY Magnesium Hydroxide (Milk Of Magnesia 30 Ml Oral.Susp) 30 ml PO DAILY PRN PRN Reason: Constipation Melatonin (Melatonin 3 Mg Tablet) 6 mg PO BEDTIME PRN PRN Reason: Insomnia Last Admin: 04/20/24 00:11 Dose: 6 mg Documented By: ROXANNA Metoprolol Tartrate (Metoprolol Tartrate 25 Mg Tablet) 25 mg PO BID [facility]; Protocol Last Admin: 04/20/24 09:20 Dose: 25 mg Documented By: TOMMY Ondansetron HCl (Ondansetron Hcl 4 Mg/2 Ml Vial) 4 mg IVPUSH Q8H PRN PRN Reason: Nausea and Vomiting Sodium Chloride (0.9 % Sodium Chloride Flush 3 Ml Syringe) 3 ml IVFLUSH QSHIFT DEE Last Admin: 04/20/24 09:20 Dose: 3 ml Documented By: TOMMY Spironolactone (Spironolactone 25 Mg Tablet) 25 mg PO DAILY [facility]; Protocol Last Admin: 04/20/24 09:20 Dose: 25 mg Documented By: TOMMY Torsemide (Torsemide 20 Mg Tablet) 40 mg PO DAILY [facility]; Protocol Last Admin: 04/20/24 09:20 Dose: 40 mg Documented By: TOMMY Labs 04/17/24 10:53 04/20/24 06:01 Labs: Laboratory Results - last 24 hr 04/20/24 06:01 Hold Purple Top SEE NOTE Anion Gap 9 L Estim Creat Clear Calc 78.1 Estimated GFR > 60 Random Glucose 91 Calcium 8.8 Microbiology Microbiology Results: Microbiology 04/18/24 14:43 Gram Stain - Final Thoracentesis Fluid Anaerobic Culture - Preliminary No growth to date. Body Fluid Culture - Final No growth after 2 days Assessment and Plan (1) Acute CHF: Status: Acute (2) Acute respiratory failure with hypoxia: Status: Acute Plan A 78 years old with PMH of persistent Afib on Eliquis, CAD, HTN, dCHF who is presenting to the hospital for hypoxia and tachycardia. found to be in heart failure and Atrial fibrillation w RvR. Acute hypoxic respiratory failure 2/2 acute on chronic dCHF complicated by large right sided pleural effusion Echo 04/19 -moderately decreased right ventricular systolic function, preserved left ventricular function, moderate tricuspid regurgitation, moderate pericardial effusion on PO diuretics cardiology following losartan, aldactone added by cardiology wean off 02 pericardial effusion no evidence of tamponade will need repeat echo as outpatient in two weeks hypokalemia--replace, check mag Right pleural effusion s/p Thoracentesis 04/18 with removal of 400 cc of fluid fluid studies pending follow culture, cytology Permanent Atrial fibrillation with RVR HR better controlled continue digoxin, Metoprolol continue eliquis initally presented to [facility] for biliary stent removal but was found to be in AFib RVR and thus sent to the emergency department d/w GI - no plan for stent removal on this admission, okay to resume Eliquis; will need to be rescheduled as outpatient Mild acute hyponatremia related to fluid overload resolved Hx CAD continue Metoprolol and statin DVT PPx-eliquis ongoing inpatient stay for treatment of heart failure with hypoxia Quality Stroke Does the patient have a stroke diagnosis?: No VTE Prior VTE?: No VTE Risk Level:: Medical - moderate - high VTE Device Contraindication: N/A - Device Ordered VTE Drug Contraindication: Treatment Not Indicated
[2024-04-20 13:06] LABS: Magnesium 1.7 mg/dL (1.6-2.6)
--- NOTE | 2024-04-20 20:41 | PC.NURSE ---
Addendum entered by Neeru Cardenas RN 04/21/24 01:45: Handoff report given to oncoming RN at 23:15. Original Note: Assumed care of patient at 19:00. Patient noted to have 18-beat run of vtach on tele, both spontaneously resolved. Treadle Cut Off Saw Operator to patient's bedside. Vitals stable. Patient denies dizziness, chest pain, sob, dizziness, n/v. Only complaint offered was mild soreness at recent right thoracentesis site which is c/d/i. Scheduled gabapentin given and pt repositioned for this. Of note, patient had potassium repleted today 40meq x1 per OCT review. Covering Dr. Marcin Billy notified of tele events and repletion with orders for stat magnesium and potassium levels, drawn and pending at this time. Prn updraft requested by blurb writer for expiratory wheeze. Awaiting orders. Patient resting in bed without distress, breathing even and unlabored. Bed alarm and safety measures in place. Call rashid within reach, patient rings appropriately to make need known.
[2024-04-20 21:25] LABS: Magnesium 1.6 mg/dL (1.6-2.6); Potassium 4.2 mmol/L (3.3-5.1)
[2024-04-20] MEDS: Albuterol Sulfate (0.083%) 2.5 MG/3 ML VIAL.NEB INHALE (22:26)
[2024-04-21] VITALS (7 sets, daily range): BP systolic 98–141; BP diastolic 55–75; PULSE 68–90; RESP 15–20; TEMP 36–36.9; O2SAT 94–98
[2024-04-21] MEDS: Melatonin 3 MG TABLET 6 MG PO ×2 (00:20→23:11)
[2024-04-21] MEDS: Acetaminophen 325 MG TABLET 650 MG PO ×2 (00:20→23:10)
[2024-04-21] MEDS: LORazepam 0.5 MG TABLET PO ×2 (01:29→23:45)
[2024-04-21] MEDS: Apixaban 5 MG TABLET PO ×2 (08:31→19:56)
[2024-04-21] MEDS: Ascorbic Acid 500 MG TABLET PO (08:31)
[2024-04-21] MEDS: 0.9 % Sodium Chloride Flush 3 ML SYRINGE IVFLUSH ×3 (08:31→23:45)
[2024-04-21] MEDS: Gabapentin 300 MG CAPSULE PO ×3 (08:32→19:56)
[2024-04-21] MEDS: Losartan Potassium 25 MG TABLET PO (08:32)
[2024-04-21] MEDS: Digoxin 0.125 MG TABLET PO (08:32)
[2024-04-21] MEDS: Metoprolol Tartrate 25 MG TABLET PO ×2 (08:33→19:56)
[2024-04-21] MEDS: Spironolactone 25 MG TABLET PO (08:34)
[2024-04-21] MEDS: Torsemide 20 MG TABLET 40 MG PO (08:34)
[2024-04-21 09:04] LABS: Anion Gap 13 (12-20); Blood Urea Nitrogen 15 mg/dL (9-16); Calcium 8.8 mg/dL (8.4-10.2); Carbon Dioxide 38 mmol/L (22-29); Chloride 88 mmol/L (96-108); Creatinine Clr Calc Pharmacy 68.7; Estimated Glomerular Filt Rate > 60; Glucose Random 88 mg/dL (60-115); Potassium 3.5 mmol/L (3.3-5.1); Sodium 135 mmol/L (135-145)
--- NOTE | 2024-04-21 11:11 | HO.PM.IMPN ---
Subjective Subjective Date of Service: 04/21/24 Interval History: Follow-up for CHF, pleural effusion Breathing improved, no chest pain, no palpitations and sob off oxygen Physical Exam Vital Signs: Vital Signs: Last Vital Signs Temp 96.8 F 04/21/24 11:09 Pulse 82 04/21/24 11:09 Resp 16 04/21/24 11:09 BP 98/55 L 04/21/24 11:09 Pulse Ox 96 04/21/24 11:09 O2 Del Method Room Air 04/21/24 11:09 O2 Flow Rate 1 04/20/24 20:00 Oxygen Flow Rate 2 04/17/24 10:36 BMI result Body Mass Index 29.0 General: AO X 3, no acute distress Resp: CTA bilateral CVS: S1,S2,RRR GI: +BS, NT, no distention Skin: No rash Neuro: motor grossly intact Psych: appropriate affect Objective Data Active Medications Acetaminophen (Acetaminophen 325 Mg Tablet) 650 mg PO Q6H PRN PRN Reason: Pain, Mild (Pain Scale 1-3), fever or headache Last Admin: 04/21/24 00:20 Dose: 650 mg Documented By: ROXANNA Albuterol Sulfate (Albuterol Sulfate (0.083%) 2.5 Mg/3 Ml Vial.Neb) 2.5 mg INHALE Q3H PRN PRN Reason: Shortness of Breath/Wheezing Last Admin: 04/20/24 22:26 Dose: 2.5 mg Documented By: LULI Apixaban (Apixaban 5 Mg Tablet) 5 mg PO BID [facility] Last Admin: 04/21/24 08:31 Dose: 5 mg Documented By: DES Ascorbic Acid (Ascorbic Acid 500 Mg Tablet) 500 mg PO DAILY [facility] Last Admin: 04/21/24 08:31 Dose: 500 mg Documented By: DES Calcium Carbonate (Calcium Carbonate 750 Mg Tab.Chew) 750 mg PO Q4H PRN PRN Reason: Heartburn Digoxin (Digoxin 0.125 Mg Tablet) 0.125 mg PO DAILY [facility]; Protocol Last Admin: 04/21/24 08:32 Dose: 0.125 mg Documented By: DES Gabapentin (Gabapentin 300 Mg Capsule) 300 mg PO TID [facility] Last Admin: 04/21/24 08:32 Dose: 300 mg Documented By: HO.PODMORP Lorazepam (Lorazepam 0.5 Mg Tablet) 0.5 mg PO Q8H PRN PRN Reason: Anxiety Last Admin: 04/21/24 01:29 Dose: 0.5 mg Documented By: ROXANNA Losartan Potassium (Losartan Potassium 25 Mg Tablet) 25 mg PO DAILY [facility]; Protocol Last Admin: 04/21/24 08:32 Dose: 25 mg Documented By: GATITOMOYAHIR Magnesium Hydroxide (Milk Of Magnesia 30 Ml Oral.Susp) 30 ml PO DAILY PRN PRN Reason: Constipation Melatonin (Melatonin 3 Mg Tablet) 6 mg PO BEDTIME PRN PRN Reason: Insomnia Last Admin: 04/21/24 00:20 Dose: 6 mg Documented By: ROXANNA Metoprolol Tartrate (Metoprolol Tartrate 25 Mg Tablet) 25 mg PO BID [facility]; Protocol Last Admin: 04/21/24 08:33 Dose: 25 mg Documented By: GATITOMORP Ondansetron HCl (Ondansetron Hcl 4 Mg/2 Ml Vial) 4 mg IVPUSH Q8H PRN PRN Reason: Nausea and Vomiting Sodium Chloride (0.9 % Sodium Chloride Flush 3 Ml Syringe) 3 ml IVFLUSH QSHIFT [facility] Last Admin: 04/21/24 08:31 Dose: 3 ml Documented By: PODMORP Spironolactone (Spironolactone 25 Mg Tablet) 25 mg PO DAILY [facility]; Protocol Last Admin: 04/21/24 08:34 Dose: 25 mg Documented By: PODMORP Torsemide (Torsemide 20 Mg Tablet) 40 mg PO DAILY [facility]; Protocol Last Admin: 04/21/24 08:34 Dose: 40 mg Documented By: GATITOMORP Labs 04/17/24 10:53 04/21/24 08:01 Labs: Laboratory Results - last 24 hr 04/20/24 04/20/24 04/21/24 06:01 20:50 08:01 Anion Gap 13 Estim Creat Clear Calc 68.7 Estimated GFR > 60 Random Glucose 88 Calcium 8.8 Magnesium 1.7 1.6 Microbiology Microbiology Results: Microbiology 04/18/24 14:43 Gram Stain - Final Thoracentesis Fluid Anaerobic Culture - Preliminary No growth to date. Body Fluid Culture - Final No growth after 2 days Assessment and Plan (1) Acute CHF: Status: Acute (2) Acute respiratory failure with hypoxia: Status: Acute Plan A 78 years old with PMH of persistent Afib on Eliquis, CAD, HTN, dCHF who is presenting to the hospital for hypoxia and tachycardia. found to be in heart failure and Atrial fibrillation w RvR. Acute hypoxic respiratory failure 2/2 acute on chronic dCHF complicated by large right sided pleural effusion Echo 04/19 -moderately decreased right ventricular systolic function, preserved left ventricular function, moderate tricuspid regurgitation, moderate pericardial effusion on PO diuretics (Torsemide 40 mg daily) cardiology following losartan, aldactone added by cardiology Off O2 pericardial effusion no evidence of tamponade will need repeat echo as outpatient in two weeks hypokalemia--corrected Right pleural effusion s/p Thoracentesis 04/18 with removal of 400 cc of fluid fluid studies pending follow culture negative, cytology pending Permanent Atrial fibrillation with RVR HR better controlled continue digoxin, Metoprolol continue eliquis initally presented to [facility] for biliary stent removal but was found to be in AFib RVR and thus sent to the emergency department d/w GI - no plan for stent removal on this admission, okay to resume Eliquis; will need to be rescheduled as outpatient Mild acute hyponatremia related to fluid overload resolved Hx CAD continue Metoprolol and statin DVT PPx-eliquis ongoing inpatient stay for treatment of heart failure with hypoxia out of bed, ambulate and if does ok, home Quality Stroke Does the patient have a stroke diagnosis?: No VTE Prior VTE?: No VTE Risk Level:: Medical - moderate - high VTE Device Contraindication: N/A - Device Ordered VTE Drug Contraindication: Treatment Not Indicated
[2024-04-22 03:47] VITALS: BP 112/67; PULSE 86; RESP 15; TEMP 36.6; O2SAT 91
[2024-04-22] MEDS: LORazepam 0.5 MG TABLET PO (06:10)
[2024-04-22 07:43] VITALS: BP 139/76; PULSE 67; RESP 18; TEMP 35.9; O2SAT 92
[2024-04-22] MEDS: Digoxin 0.125 MG TABLET PO (08:10)
[2024-04-22] MEDS: Ascorbic Acid 500 MG TABLET PO (08:10)
[2024-04-22] MEDS: Torsemide 20 MG TABLET 40 MG PO (08:10)
[2024-04-22] MEDS: Spironolactone 25 MG TABLET PO (08:10)
[2024-04-22] MEDS: Metoprolol Tartrate 25 MG TABLET PO (08:10)
[2024-04-22] MEDS: Gabapentin 300 MG CAPSULE PO (08:10)
[2024-04-22] MEDS: Losartan Potassium 25 MG TABLET PO (08:10)
[2024-04-22] MEDS: Apixaban 5 MG TABLET PO (08:11)
[2024-04-22] MEDS: 0.9 % Sodium Chloride Flush 3 ML SYRINGE IVFLUSH (08:11)
--- NOTE | 2024-04-22 10:37 | P.DS_ITS ---
DS: Providers Provider Date of Service: 04/22/24 Date of admission: 04/17/24 21:09 Primary care physician: Juan Miguel Martinez MD Consults: 04/17/24 21:14 Consult to Cardiology Routine Consulting Provider: [facility] Reason for consultation: Heart failure exacerbation with large effusion. DS: Diagnosis Discharge Diagnosis (1) Acute CHF: Status: Acute (2) Acute respiratory failure with hypoxia: Status: Acute DS: Summary Hospital Course Hospital Course: admission [facility] Complaint: Dyspnea, hypoxia A 78 years old with PMH of persistent Afib on Eliquis, CAD, HTN, dCHF who is presenting to the hospital for hypoxia and tachycardia. found to be in heart failure and Atrial fibrillation w RvR. The patient was planned for EGD today. she went to short stay surgery and was noticed to be coughing and having tachycardia in 120s. the EGD was postponed and she was sent to ED for further evaluation. She reports that she is active at home but noticed more dyspnea and getting winded quickly for the last couple of weeks, denies any chest pain or noticable change in weight. Her O2 sat noted to drop to 88% upon exertion while in ED so she was placed on O2 supplement. CXR and CT chest showed bilateral pleural effusions more on the right side and evidence of Atelactasis. No reported chest pain, nausea, vomiting, diarrhea or urinary symptoms. BNP was elevated around 800 from baseline less than 200 usually. Admitted for further evaluation and treatment. hospital course: patient presented with dyspnea and hypoxia and was found to be in acute heart failure. She was treated with IV Lasix at 40 mg twice daily and achieved symptoms relief and negative fluid under the advise of cardiology. Hypoxia has resolved and is no longer on oxygen. Her medication has been adjusted with addition of aldactone 25 mg daily, losartan 25 mg daily and torsemide has been increased to 40 mg daily from 20 mg. She's up and amubu lating and maintaining oxygen saturation. Final diagnoses: Acute hypoxic respiratory failure Acute on chroni diastolic heart failure Time Attestation Discharge Coordination Time (in mins): 45 Quality: Safe Use of Opioids Does Pt have an Active Cancer Diagnosis on the Problem List?: No Quality: Stroke Does the patient have a stroke diagnosis?: No Physical Exam Vital Signs: Vital Signs: Last Vital Signs Temp 96.6 F L 04/22/24 07:43 Pulse 67 04/22/24 07:43 Resp 18 04/22/24 07:43 BP 139/76 04/22/24 07:43 Pulse Ox 92 04/22/24 07:43 O2 Del Method Room Air 04/22/24 07:43 O2 Flow Rate 1 04/20/24 20:00 Oxygen Flow Rate 2 04/17/24 10:36 BMI result Body Mass Index 29.0 Const: Other: General: AO X 3, no acute distress Resp: CTA bilateral CVS: S1,S2,RRR GI: +BS, NT, no distention Skin: No rash Neuro: motor grossly intact Psych: appropriate affect DS: Data Data Completed and Pending Completed studies during hospitalization [Text1]: Procedures Pending studies at discharge: Pending at discharge 04/18/24 13:30 Cytology [PTH] Routine Labs on day of discharge: Preliminary micro results at discharge 04/18/24 14:43 Anaerobic Culture - Preliminary Thoracentesis Fluid No growth to date. Discharge Plan Discharge Anticipated Discharge Date/Time: 04/22/24 10:31 Patient Disposition: Home Health Service Discharge Diagnosis: Heart failure exacerbation Referrals: Juan Miguel Martinez MD [Primary Care Provider] - 1 Week Discharge Medications: New losartan 25 mg Tablet 25 mg PO DAILY Qty: 90 0RF Protocol: Hold for SBP< HOLD for SBP < : 90 torsemide 20 mg Tablet 40 mg PO DAILY Qty: 90 0RF Protocol: Hold for SBP< HOLD for SBP < : 90 spironolactone 25 mg Tablet 25 mg PO DAILY Qty: 30 0RF Protocol: Hold for SBP< HOLD for SBP < : 90 Continued Eliquis 5 mg tablet 5 mg PO BID 30 Days Qty: 60 0RF simvastatin 10 mg Tablet 10 mg PO BEDTIME digoxin 125 mcg (0.125 mg) Tablet 0.125 mg PO DAILY 30 Days Qty: 30 0RF escitalopram oxalate 10 mg tablet 10 mg PO DAILY gabapentin 300 mg capsule 300 mg PO TID lorazepam 1 mg tablet 1 mg PO BID PRN (Reason: Anxiety) ascorbic acid (vitamin C) 500 mg tablet 500 mg PO DAILY acetaminophen [Tylenol] 325 mg Tablet 650 mg PO Q6H PRN (Reason: Pain) melatonin 3 mg Tablet 6 mg PO BEDTIME PRN (Reason: Insomnia) metoprolol tartrate 25 mg tablet 25 mg PO BID Discontinued torsemide 20 mg tablet 20 mg PO DAILY Discharge Orders: Discharge Order (Routine); Ordered 04/22/24 Ordered By: Davis Patterson Diet: Advance to usual diet Activity on Discharge: As tolerated Stand Alone Forms: Patient Portal Discharge page Print Language: Guatemalan Care Plan Goals: recovery from heart failure and prevent hospitalization Health Concerns: heart failure Plan of Treatment: take your medications as directed Torsemide dose increased to 40 mg daily aldactone 25 mg daily started Losartan 25 mg daily started Assessment: see above.
--- NOTE | 2024-04-22 10:57 | W.MHC.F2F ---
Service Date Service Date: 04/22/24 Encounter Date of encounter: 04/22/24 Encounter: homebound due to heart failure requiring hospitalization Reasons for Services Signs and symptoms assessed: heart failure Reason for long term: medication management and teach disease management Homebound: Leaving the home is medically contraindicated at this time without the asist of a device and/or another person due th the listed conditions above and below. Reason homebound: weakness related to hospital stay Homebound supporting statement: 45 Certification: Based on the above findings, I certify that this patient is confined to the home and needs intermittent long term care, physical therapy and/or speech therapy, or continues to need occupational therapy. The patient is under my care, and I have initiated the establishment of the plan of care. The patient will be followed by a physician who will periodically review the plan of care. Time Spent With Patient Time: Total time managing care of this patient today ____ minutes.
[2024-04-22 11:06] VITALS: BP 97/58; PULSE 68; RESP 18; TEMP 36.6; O2SAT 92
--- NOTE | 2024-04-22 11:36 | MHC.CM.PN ---
Second IMM given 04/22. Pt is medically cleared for discharge home with resumption of previous [facility] home health services. Pts daughter/HCP Lorraine will transport her home today.
[2024-04-23 11:54] LABS: LDH Pleural Fluid 79; Total Protein Pleural Fluid 2.6
== END 2024-04-22 14:27 | disposition home health service (06) | DRG 291 ==
LOC: HO.ED 17:56 → HO.EDOVER 21:19 → HO.IMC 04-18 11:50
PROVIDERS: Emergency Medicine Emergency Medical Services; Internal Medicine; Physician Assistant Medical; Physician Assistant Surgical; Admitting Provider Student in an Organized Health Care Education/Training Program; Emergency Provider Internal Medicine; PCP Internal Medicine; Visit Provider Internal Medicine
DX: I11.0 Hypertensive heart disease with heart failure (principal); I50.33 Acute on chronic diastolic (congestive) heart failure; J96.01 Acute respiratory failure with hypoxia; E87.1 Hypo-osmolality and hyponatremia; J91.8 Pleural effusion in other conditions classified elsewhere; J98.11 Atelectasis; I48.21 Permanent atrial fibrillation; E87.6 Hypokalemia; I07.1 Rheumatic tricuspid insufficiency; I25.10 Atherosclerotic heart disease of native coronary artery without angina pectoris; Z20.822 Contact with and (suspected) exposure to COVID-19; Z87.891 Personal history of nicotine dependence; Z79.01 Long term (current) use of anticoagulants; Z79.899 Other long term (current) drug therapy
CPT/HCPCS: 0241U; 32555; 36415; 71045; 71275; 80048; 80053; 80162; 83615; 83735; 83880; 84132; 84155; 84157; 84484; 85025; 87070; 87073; 87205; 88112; 88305; 89051; 93005; 93308; 94640; 99285; J1940; J3475; Q9957; Q9967

== ENCOUNTER 2024-04-17 21:09 | Outpatient (BNV) | payer MEDICARE, MEDICAID, SELFPAY | END 2024-04-18 08:00 | PROVIDERS: Admitting Provider Student in an Organized Health Care Education/Training Program; Emergency Provider Internal Medicine; PCP Internal Medicine; Visit Provider Physician Assistant Surgical | DX: J90 Pleural effusion, not elsewhere classified (principal) | CPT/HCPCS: 32555 ==

== ENCOUNTER 2024-04-17 21:09 | Outpatient (BNV) | payer MEDICARE, MEDICAID, SELFPAY | END 2024-04-18 07:00 | PROVIDERS: Admitting Provider Student in an Organized Health Care Education/Training Program; Emergency Provider Internal Medicine; PCP Internal Medicine; Visit Provider Internal Medicine Cardiovascular Disease | DX: I36.1 Nonrheumatic tricuspid (valve) insufficiency (principal); I27.20 Pulmonary hypertension, unspecified | CPT/HCPCS: 93308; 93321 ==

== ENCOUNTER → 2024-04-17 21:09 | Outpatient (BNV) | payer MEDICARE, MEDICAID, SELFPAY | PROVIDERS: Admitting Provider Student in an Organized Health Care Education/Training Program; Emergency Provider Internal Medicine; Visit Provider Student in an Organized Health Care Education/Training Program | DX: I50.9 Heart failure, unspecified (principal); J96.01 Acute respiratory failure with hypoxia | CPT/HCPCS: 99223; 99232; 99233; 99239; G0180 ==

== ENCOUNTER → 2024-04-17 21:09 | Outpatient (BNV) | payer MEDICARE, MEDICAID, SELFPAY | PROVIDERS: Admitting Provider Student in an Organized Health Care Education/Training Program; Emergency Provider Internal Medicine; PCP Internal Medicine; Visit Provider Internal Medicine Cardiovascular Disease | DX: I50.9 Heart failure, unspecified (principal) | CPT/HCPCS: 99223; 99233 ==

== ENCOUNTER 2024-05-07 14:42 | Outpatient (REF) | payer MEDICARE, MEDICAID, SELFPAY ==
[2024-05-07 15:13] LABS: MANUAL DIFF FLAG NO
[2024-05-07 15:27] LABS: Basophils Percent Auto 0.4 % (0-2); Eosinophils Absolute Auto 0.2 X10*3/uL (0.0-0.4); Eosinophils Percent Auto 2.8 % (0-4); Hematocrit 41.7 % (37.0-47.0); Hemoglobin 13.9 g/dl (12.0-16.0); Imm Gran Abs Auto 0.03 X10*3/uL (0.00-0.03); Imm Gran Pct Auto 0.4 % (0.0-0.4); Lymphocytes Absolute Auto 1.1 X10*3/uL (1.2-4.9); Lymphocytes Percent Auto 15.5 % (20-40); Mean Corpuscular HGB Conc 33.3 g/dl (31.0-35.0); Mean Corpuscular Hemoglobin 31.4 pg (27.0-33.0); Mean Corpuscular Volume 94.1 fL (80.0-98.0); Mean Platelet Volume 9.7 fL (9.4-12.3); Monocytes Absolute Auto 0.5 X10*3/uL (0.1-1.2); Monocytes Percent Auto 6.6 % (2-11); Neutrophils Absolute Auto 5.1 x10*3/uL (2.0-8.3); Neutrophils Percent Auto 74.3 % (45-73); Platelet Count 279 X10*3/uL (160-400); Red Blood Count 4.43 X10*6/uL (4.20-5.50); Red Cell Distribution Width 13.3 % (11.0-16.0); White Blood Count 6.9 X10*3/uL (4.8-10.8)
[2024-05-07 15:53] LABS: Alanine Aminotransferase 13 U/L (0-31); Alkaline Phosphatase 86 U/L (39-117); Anion Gap 13 (12-20); Aspartate Amino Transferase 18 U/L (5-31); Bilirubin Total 0.4 mg/dL (0.0-1.0); Blood Urea Nitrogen 16 mg/dL (9-16); Calcium 9.8 mg/dL (8.4-10.2); Carbon Dioxide 34 mmol/L (22-29); Chloride 95 mmol/L (96-108); Estimated Glomerular Filt Rate 56; Glucose Random 99 mg/dL (60-115); Potassium 4.2 mmol/L (3.3-5.1); Sodium 138 mmol/L (135-145); Total Protein 7.5 g/dL (6.5-8.0)
== END 2024-05-07 14:43 | disposition home or self-care (01) ==
LOC: HO.LAB 14:42
PROVIDERS: PCP Internal Medicine; Visit Provider Internal Medicine
DX: I48.91 Unspecified atrial fibrillation (principal); N18.9 Chronic kidney disease, unspecified; I95.9 Hypotension, unspecified
CPT/HCPCS: 36415; 80053; 85025

== ENCOUNTER 2024-06-10 14:14 | Outpatient (AMB) | payer MEDICARE, MEDICAID, SELFPAY ==
--- NOTE | 2024-06-10 14:42 | A.OFFVIS_ITS ---
Vital Signs 06/10/24 14:43 Height 5 ft 6 in Weight 158 lb 11.725 oz BMI 25.6 BP 116/62 Blood Pressure Location Lt brachial Position Sitting Pulse 67 Intake Visit Reasons: 6mth f/up Intake Note: 6 month follow-up with ekg bp has been in the 70's in the AM Concreter Required: No Mixing Picker Tender: Mixing Picker Tender Present Accompanied by: Daughter Allergies amiodarone Allergy (Severe, Verified 04/17/24 10:39) Difficulty Breathing Medication List - Last Reconciled 06/10/24 by Adebayo Lechuga MD acetaminophen (Tylenol) 650 mg PO Q6H PRN apixaban (Eliquis) 5 mg PO BID 30 days ascorbic acid (vitamin C) 500 mg PO DAILY digoxin 0.125 mg PO DAILY 30 days escitalopram oxalate 10 mg PO DAILY gabapentin 300 mg PO TID lorazepam 1 mg PO BID PRN melatonin 6 mg PO BEDTIME PRN metoprolol tartrate 12.5 mg PO BID simvastatin 10 mg PO BEDTIME spironolactone 25 mg See Protocol PO DAILY torsemide 40 mg See Protocol PO DAILY HPI Comments Details: Lucia comes for follow-up. In April she had come in for upper endoscopy but subsequently developed hypoxemia and tachycardia. She was referred to the emergency room and was noted to be in heart failure along with significant pleural effusion as well as atrial fibrillation rapid ventricular response. He then diuresed and subsequently underwent a thoracocentesis with significantly improved her symptoms of shortness of breath. Heart rate was then controlled with medications. She has done well. However since her discharge she was having low blood pressure she was significant lightheadedness with blood pres sure in the 80s. Losartan was stopped by office in her metoprolol was reduced to 12.5 mg b.i.d.. Despite that she continues to have symptoms lightheadedness. She had another symptoms of orthostatic lightheadedness usually happens in the morning with a blood pressure is low and she can have falls related to it. She has not had a full syncopal episode. Denies any prolonged palpitation irregular heartbeat. No heart failure symptoms of orthopnea, PND, leg edema, weight gain. 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 Essential hypertension Throat cancer Myocardial infarct Afib HTN (hypertension) Surgical History Hx of appendectomy History of back surgery History of laparoscopic cholecystectomy (11/29/23) Atrial fibrillation status post cardioversion Family History Daughter Breast cancer Social History Household Members: Family Housing: House Do you presently have visiting nurse or other home services: Yes (PT and OT) Alcohol intake: never Comment: counts correct Patient Tobacco Use Status: Former Tobacco user Years Smoked: 41 yrs Advance Directives Date on File: 01/13/21 service: No Current occupational status: disabled Review of Systems Const Denies chills, Denies fatigue, Denies fever(s), Denies frequent falls, Denies weakness, Denies weight gain and Denies weight loss ENT Denies dizziness Card Denies chest pain, Denies leg edema, Denies lightheadedness, Denies palpitations, Denies dyspnea, Denies dyspnea on exertion, Denies orthopnea and Denies other (loss of consciousness) Resp Denies cough, Denies dyspnea and Denies dyspnea on exertion GI Denies hematochezia and Denies change in stool character Musc Denies abnormal gait, Denies muscle weakness, Denies numbness, Denies radiating pain into limb and Denies tingling Neuro Denies abnormal gait, Denies dizziness, Denies frequent falls, Denies numbness, Denies tingling and Denies weakness Endo Denies fatigue and Denies palpitations Physical Exam Vital Signs: Last Vital Signs Pulse 67 06/10/24 14:43 BP 116/62 06/10/24 14:43 BMI result Body Mass Index 25.6 Const General: cooperative, comfortable, no acute distress, alert and awake Nutritional Appearance: other (Frail appearing) Orientation/consciousness: patient oriented x3 Limitations: ambulation with walker Neck Neck: Yes normal visual inspection and Yes no JVD Resp Effort & Inspection: normal respiratory effort Auscultation: clear to auscultation bilaterally, no crackles, no rales, no rhonchi and no wheezes Cardio Jugular venous distension: no JVD Rate: regular rate Rhythm: abnormal rhythm Heart sounds: S1 normal heart sound present, S2 normal heart sound present, no murmurs and no rubs Neuro General: patient oriented x3 Extrem General: Yes normal to inspection and No no pedal edema Psych Appearance: grossly normal Mental Status: mental status grossly normal Speech and movement: Normal speech and movement present Office Procedures EKG Details: EKG shows atrial fibrillation with nonspecific ST T wave changes most likely digoxin effect [id number], Complete Assessment & Plan Assessment & Plan (1) Heart failure with preserved ejection fraction: Code(s): I50.30 - Unspecified diastolic (congestive) heart failure Category: Medical Qualifiers: Heart failure chronicity: chronic Qualified Code(s): I50.32 - Chronic diastolic (congestive) heart failure Plan: Heart failure preserved ejection fraction, clinically euvolemic and well compensated. Doing well on current diuretic dose. Continue the same. Importance of heart failure management discussed. Not tolerating much medications. Continue current rate control approach for atrial fibrillation. Daily weight monitoring avoidance salt loading was discussed. Additional diuretic therapy as need be. Will reduce spironolactone, see below due to her symptoms of orthostasis and lightheadedness with low blood pressure. (2) Persistent atrial fibrillation: Code(s): I48.19 - Other persistent atrial fibrillation Category: Medical Plan: Persistent rate control atrial fibrillation. Currently on low-dose metoprolol as as digoxin therapy. Digoxin assay should be performed every 3 months. Continue full oral anticoagulation, currently on Eliquis 5 mg b.i.d.. Quarterly renal function test should be pursued as well. Has failed rhythm control approach at this point time. (3) Orthostasis: Code(s): I95.1 - Orthostatic hypotension Plan: Symptoms of orthostatic lightheadedness with low blood pressure with symptoms of falls and near-syncope. At this point time will reduce spironolactone to 12.5 mg daily. Continue monitor blood pressure at home maintain a log. Orthostatic precautions were discussed. Maintain adequate oral hydration. Overall prognosis is guarded. If remains symptomatic with low blood pressure may need to consider discontinue spironolactone therapy altogether. Will follow up in the clinic in 4 months time, sooner p.amanda. Thank you for allowing me to partake in his care Medications: Changed From spironolactone 25 mg See Protocol PO DAILY 30 tabs 0RF To spironolactone 12.5 mg See Protocol PO DAILY 30 tabs 0RF Coding Level of Care Code Est Pt Level 4 (86627) Complex EM visit Add On G2211 Diagnoses Chronic heart failure with preserved ejection fraction I50.32 Heart failure chronicity: chronic Persistent atrial fibrillation I48.19 Orthostasis I95.1 CPT Codes EKG - CPT: 78819-[id number], Complete ([id number])
[2024-06-10 14:43] VITALS: BP 116/62; PULSE 67; BMI 25.6
== END 2024-06-10 15:14 | disposition home or self-care (01) ==
LOC: HO.HCS 14:14
PROVIDERS: PCP Internal Medicine; Visit Provider Internal Medicine Cardiovascular Disease
DX: I50.32 Chronic diastolic (congestive) heart failure (principal); I48.19 Other persistent atrial fibrillation; I95.1 Orthostatic hypotension
CPT/HCPCS: 93010; 99214; G2211

== ENCOUNTER → 2024-06-10 14:14 | Outpatient (BNVA) | payer MEDICARE, MEDICAID, SELFPAY | PROVIDERS: PCP Internal Medicine; Visit Provider Internal Medicine Cardiovascular Disease | DX: I50.32 Chronic diastolic (congestive) heart failure (principal); I48.19 Other persistent atrial fibrillation; I95.1 Orthostatic hypotension; R94.31 Abnormal electrocardiogram [ECG] [EKG]; I48.91 Unspecified atrial fibrillation | CPT/HCPCS: 93005; 99212 ==

== ENCOUNTER → 2024-08-16 13:55 | Outpatient (BNV) | payer MEDICARE, MEDICAID, SELFPAY | PROVIDERS: PCP Internal Medicine; Visit Provider Radiology Diagnostic Radiology | DX: J90 Pleural effusion, not elsewhere classified (principal) | CPT/HCPCS: 71046 ==

== ENCOUNTER 2024-08-21 11:43 | Day surgery (SDC) | payer MEDICARE, MEDICAID, SELFPAY ==
[2024-08-16 13:13] VITALS: BMI 26.0
[2024-08-16 13:21] VITALS: BP 96/55; PULSE 89; RESP 20; O2SAT 96
--- NOTE | 2024-08-16 13:27 | HO.ANESPROP2 ---
Documented by User: Laverne Stone NP 08/20/24 12:15 HPI - Anesthesia Eval Consult details Narrative: 79yo F for Upper Endoscopy 04/2024 Pt cx'd DOS: Pt presented for EGD today. HR currently Afib w RVR, HR 120s-130s (last month was 50s.) SpO2 89-92% on room air (last month was 98-99% on room air). Her chest is CTA with normal exp phase, but she has a wet rhonchorous cough and she c/o dyspnea on minimal. Denies fever. Admit through ED hospital course: patient presented with dyspnea and hypoxia and was found to be in acute heart failure. She was treated with IV Lasix at 40 mg twice daily and achieved symptoms relief and negative fluid under the advise of cardiology. Hypoxia has resolved and is no longer on oxygen. Her medication has been adjusted with addition of aldactone 25 mg daily, losartan 25 mg daily and torsemide has been increased to 40 mg daily from 20 mg. She's up and amubulating and maintaining oxygen saturation. Also required Right thoracentesis for large right pleural effusion Mod pericardial effusion without tamponade, Hx trach for ~ 3 months in 2020 r/t throat CA. S/p surgery and radiation. PAT eval without peripheral edema. Denies SOB. Still with rhonchi thoughout with expiration. 96% RA. CXR better Afib on Eliquis Follows [facility] [place] [facility]. Last office visit 06/2024 with well compensated CHF. Some orthostatic hypotn, spirinolactone decreased. PMFSH Active Problems Active Problems: All Active Problems S/P laparoscopic cholecystectomy (Acute) Persistent atrial fibrillation (Acute) Hospital discharge follow-up (Acute) CAD (coronary artery disease) (Acute) Heart failure with preserved ejection fraction (Acute) Acalculous cholecystitis (Acute) Past Medical History Medical History COPD (chronic obstructive pulmonary disease) Orthostatic hypotension Pleural effusion History of cardioversion Cardiac arrest Atrial fibrillation Acalculous cholecystitis CAD (coronary artery disease) Acute hypercapnic respiratory failure due to obstructive sleep apnea Symptomatic bradycardia Sleep apnea Heart failure with preserved ejection fraction Throat cancer HTN (hypertension) Family History Family History Daughter Breast cancer Family history of problems with anesthesia: No Surgical History Surgical History History of thoracentesis Hx of tracheostomy Status post insertion of percutaneous endoscopic gastrostomy (PEG) tube Hx of endoscopic retrograde cholangiopancreatography History of esophagogastroduodenoscopy (EGD) Hx of appendectomy History of back surgery History of laparoscopic cholecystectomy (11/29/23) Atrial fibrillation status post cardioversion History of Problems with Anesthesia: No Social History Social History Household Members: Family Housing: House Are you a primary medical care evaluation specialist to a significant other at home: No Do you presently have visiting nurse or other home services: No Alcohol intake: never Comment: counts correct Patient Tobacco Use Status: Former Tobacco user Tobacco use type: Cigarette Years Smoked: 42 Use of substances other than those prescribed or required for medical reasons: No Have you been hit, kicked, punched, or otherwise hurt by someone within the past year? If so, by whom?: No Spiritual Healthcare Practices: none Spiritism Healthcare Practices: Sikhism Cultural Healthcare Practices: none Are you DNR?: No Advance Directives: Yes Advance Directives Information Provided: Yes Advance Directives on File: Yes Advance Directives Date on File: 01/13/21 Recently lost weight without trying: No Eating poorly because of decreased appetite: No Nutrition Risks: Difficulty chewing, Difficulty swallowing and Surgical patient >75years FDLMP: n/a service: No Current occupational status: disabled Meds Allergies Allergy/AdvReac Type Severity Reaction Status Date / Time amiodarone Allergy Severe Difficulty Verified 04/17/24 10:39 Breathing Home Medications ?Medication ?Instructions ?Recorded ?Confirmed ?Last Taken ?Type simvastatin 10 mg tablet 10 mg PO BEDTIME 01/16/22 08/16/24 04/17/24 History escitalopram oxalate 10 mg tablet 10 mg PO QAM 03/31/22 08/16/24 04/17/24 History gabapentin 300 mg capsule 300 mg PO TID 03/31/22 08/16/24 08/21/24 History lorazepam 1 mg tablet 1 mg PO BID PRN Anxiety 03/31/22 08/16/24 Unknown History melatonin 3 mg tablet 6 mg PO BEDTIME PRN Insomnia 03/24/23 08/16/24 04/14/23 History acetaminophen 325 mg tablet 650 mg PO Q6H PRN Pain 03/14/24 08/16/24 Unknown History (Tylenol) ascorbic acid (vitamin C) 500 mg 500 mg PO QAM 03/14/24 08/16/24 04/17/24 History tablet metoprolol tartrate 25 mg tablet 12.5 mg PO BID 06/10/24 08/16/24 08/21/24 History digoxin 125 mcg (0.125 mg) tablet 0.125 mg PO QAM 08/16/24 08/16/24 08/21/24 History diphenhydramine 25 1 tab PO BEDTIME 08/16/24 08/16/24 Unknown History mg-acetaminophen 500 mg tablet (Tylenol PM Extra Strength) torsemide 20 mg tablet 20 mg PO BID 08/16/24 08/16/24 Unknown History Exam Height,Weight and Vital Signs: Height 5 ft 6 in Weight 73.028 kg Pertinent Lab Results Pertinent Lab Results: Laboratory Tests 05/07/24 15:11 WBC 6.9 Hgb 13.9 Hct 41.7 Plt Count 279 D Sodium 138 Potassium 4.2 Chloride 95 L Carbon Dioxide 34 H BUN 16 Creatinine 0.97 Narrative Narrative: XR chest 2V 08/2024 IMPRESSION: No acute cardiopulmonary abnormality. The previously seen bilateral pleural effusions have resolved. EKG 06/2024 Details: EKG shows atrial fibrillation with nonspecific ST T wave changes most likely digoxin effect Limited ECHO 04/2024 Conclusions: - Moderately increased right ventricular cavity size. There is mild to moderately decreased right ventricular systolic function. - There is a moderate pericardial effusion. There are no definitive echocardiographic findings of tamponade physiology. ECHO 04/2024 Conclusions: - 1. Normal LV ejection fraction of 65-70% with mild LVH with possible restrictive filling pattern 2. At least moderately dilated left atrium 3. Mild aortic stenosis 4. Upper limits of normal RV systolic pressure 5. No gross pericardial effusion Airway Mallampati Class: I (Skin grafting after radiation with some scar tissue throughout mouth) TM Dist: >3cm Neck ROM: Limited Loose/Missing/Broken Teeth: Yes (edentulous) Heart: irreg Lungs: rhonchorous expiratory - CXR pending Assessment and Plan Assessment Anesthesia Assessment: Anesthesia Plan Discussed and PAT Visit Final Anesthetic Review Family History of Problems with Anesthesia: No History of Problems with Anesthesia: No Documented by User: Ayana Vazquez MD 08/21/24 12:39 PMFSH Past Medical History Medical History COPD (chronic obstructive pulmonary disease) Orthostatic hypotension Pleural effusion History of cardioversion Cardiac arrest Atrial fibrillation Acalculous cholecystitis CAD (coronary artery disease) Acute hypercapnic respiratory failure due to obstructive sleep apnea Symptomatic bradycardia Sleep apnea Heart failure with preserved ejection fraction Throat cancer HTN (hypertension) Family History Family History Daughter Breast cancer Surgical History Surgical History History of thoracentesis Hx of tracheostomy Status post insertion of percutaneous endoscopic gastrostomy (PEG) tube Hx of endoscopic retrograde cholangiopancreatography History of esophagogastroduodenoscopy (EGD) Hx of appendectomy History of back surgery History of laparoscopic cholecystectomy (11/29/23) Atrial fibrillation status post cardioversion Social History Social History Household Members: Family Housing: House Are you a primary medical care evaluation specialist to a significant other at home: No Do you presently have visiting nurse or other home services: No Alcohol intake: never Comment: counts correct Patient Tobacco Use Status: Former Tobacco user Tobacco use type: Cigarette Years Smoked: 42 Use of substances other than those prescribed or required for medical reasons: No Have you been hit, kicked, punched, or otherwise hurt by someone within the past year? If so, by whom?: No Spiritual Healthcare Practices: none Spiritism Healthcare Practices: Sikhism Cultural Healthcare Practices: none Are you DNR?: No Advance Directives: Yes Advance Directives Information Provided: Yes Advance Directives on File: Yes Advance Directives Date on File: 01/13/21 Recently lost weight without trying: No Eating poorly because of decreased appetite: No Nutrition Risks: Difficulty chewing, Difficulty swallowing and Surgical patient >75years FDLMP: n/a service: No Current occupational status: disabled Meds Allergies Allergy/AdvReac Type Severity Reaction Status Date / Time amiodarone Allergy Severe Difficulty Verified 04/17/24 10:39 Breathing Home Medications ?Medication ?Instructions ?Recorded ?Confirmed ?Last Taken ?Type simvastatin 10 mg tablet 10 mg PO BEDTIME 01/16/22 08/16/24 04/17/24 History escitalopram oxalate 10 mg tablet 10 mg PO QAM 03/31/22 08/16/24 04/17/24 History gabapentin 300 mg capsule 300 mg PO TID 03/31/22 08/16/24 08/21/24 History lorazepam 1 mg tablet 1 mg PO BID PRN Anxiety 03/31/22 08/16/24 Unknown History melatonin 3 mg tablet 6 mg PO BEDTIME PRN Insomnia 03/24/23 08/16/24 04/14/23 History acetaminophen 325 mg tablet 650 mg PO Q6H PRN Pain 03/14/24 08/16/24 Unknown History (Tylenol) ascorbic acid (vitamin C) 500 mg 500 mg PO QAM 03/14/24 08/16/24 04/17/24 History tablet metoprolol tartrate 25 mg tablet 12.5 mg PO BID 06/10/24 08/16/24 08/21/24 History digoxin 125 mcg (0.125 mg) tablet 0.125 mg PO QAM 08/16/24 08/16/24 08/21/24 History diphenhydramine 25 1 tab PO BEDTIME 08/16/24 08/16/24 Unknown History mg-acetaminophen 500 mg tablet (Tylenol PM Extra Strength) torsemide 20 mg tablet 20 mg PO BID 08/16/24 08/16/24 Unknown History Exam Airway Mallampati Class: III (Skin grafting after radiation with some scar tissue throughout mouth) TM Dist: <=3cm Neck ROM: Poor Assessment and Plan Final Anesthetic Review NPO: Yes ASA Class: III Final Preanesthetic Review: No Changes in Pt Med Stat, Meds/Allgs Chart Reviewed, Consent Obtained/Reviewed and Anes Risks/Benef Reviewed Patient Risk: Intermediate Procedure Risk: Low Anesthetic Plan Anesthetic Plan: MAC: Disposition: Standard PACU
--- NOTE | ~2024-08-21 | XR_ITS ---
EXAMINATION: XR CHEST 2 VIEWS HISTORY: Pleural Effusion COMPARISON: Jabier is made with the prior examination dated 04/18/2024. FINDINGS: PA and lateral views of the chest are submitted. The lungs are expanded and clear. There is no pleural effusion, pneumothorax, or pulmonary vascular congestion. The heart is normal in size. There is degenerative disc disease of the spine. XR/XR chest 2V IMPRESSION: No acute cardiopulmonary abnormality. The previously seen bilateral pleural effusions have resolved. Electronically signed by: Ramin Vieyra MD 08/16/2024 02:49 PM [facility]
[2024-08-21 12:29] VITALS: BP 115/73; PULSE 77; RESP 16; TEMP 36.3; O2SAT 95
[2024-08-21] MEDS: Lactated Ringers 1,000 ML 50 ML IVCONT (12:41)
--- NOTE | 2024-08-21 12:45 | P.HPSUR_ITS ---
Pre-Procedural Eval Section A - 24 Hr Update-Section A only Date of Service: 08/21/24 Section B - Complete if H&P > 30 days Chief Complaint: Encounter for adjustment or removal of PD stent Relevant Family History (Specify if Yes): No Relevant Social History: None Present Medications: see Short Stay Collaborative assessment Medical History: Significant History (COPD (chronic obstructive pulmonary diseas e) Orthostatic hypotension Pleural effusion History of cardioversion Cardiac arrest Atrial fibrillation Acalculous cholecystitis CAD (coronary artery disease) Acute hypercapnic respiratory failure due to obstructive sleep apnea Symptomatic bradycardia Sleep ) History of Previous Operations: Relevant previous surgery/procedure and date(s) (History of thoracentesis Hx of tracheostomy Status post insertion of percutaneous endoscopic gastrostomy (PEG) tube Hx of endoscopic retrograde cholangiopancreatography History of esophagogastroduodenoscopy (EGD) Hx of appendectomy History of back surgery History of laparoscopic cholecystectomy () Allergies: Allergies Allergy/AdvReac Type Severity Reaction Status Date / Time amiodarone Allergy Severe Difficulty Verified 04/17/24 10:39 Breathing Review of Systems Sugical H&P ROS: Negative: Constitution, Cardiovascular, Respiratory, Neurological, Psychiatric, Hem-Onc, Allergic/Immunologic, Gastrointestinal, Genitourinary, Musculoskeletal, Integumentary, Endocrine and Eyes/Ears/Nose/Throat Exam Surgical H&P Exam: Normal: HEENT, Normal: Heart, Normal: Lungs, Normal: Extremities, Normal: Abdomen, Normal: Skin and Normal: Neurological Plan Diagnosis/Plan: Unchanged I have reviewed the history and physical and performed a pertinent physical examination on my patient. No changes have occurred unless specified. Time Spent With Patient Time: Total time managing care of this patient today ____ minutes.
[2024-08-21 13:28] VITALS: BP 95/50; PULSE 74; RESP 18; TEMP 36.2
--- NOTE | 2024-08-21 13:28 | W.PM.OPN ---
Operative Note Operative Note Date of Service: 08/21/24 Narrative: Procedure Description: EGD Indication: stent removal Anesthesia: MAC FLEXIBLE TRANSORAL UPPER GASTROINTESTINAL ENDOSCOPY UPPER ENDOSCOPY Consent: Indications for the procedure and potential complications of bleeding, perforation, reaction to medications and missed diagnosis were discussed with the patient and informed consent was obtained. Instrument: Olympus GIF H 190 J mid size upper endoscope Monitoring: Vital signs and clinical assessment, continuous EKG monitoring, Pulse oximetry, Carbon Dioxide monitoring and blood pressure monitoring were done throughout the procedure. Procedure: The patient was placed in the left lateral decubitis position and pre-procedure medications were administered and a bite block was placed. The endoscope was inserted into the mouth and advanced under direct vision to the third part of duodenum. A careful inspection was made as the upper endoscope was withdrawn including a retroflexed examination of the proximal stomach; Findings and interventions are described below. Findings: Larynx:normal Esophagus: GE junction at 40 cm, diaphragm hiatus at 40 cm, mild esophagitis at GEJ Stomach: patchy erythema . Biopsies were obtained. Grade 2 flap valve on retroflexed examination of the cardia. Duodenum: bulbar duodenitis -bx taken No stent seen at the ampulla Intervention: Biopsies as noted above, Impression/Findings: gastritis duodenitis esophagitis PLAN: consider low dose PPI or pepcid, await bx GERD precautions
[2024-08-21 13:43] VITALS: BP 102/59; PULSE 70; RESP 16; TEMP 36.6
--- NOTE | 2024-08-21 14:04 | P.CONAN_ITS ---
HPI - Anesthesia Eval Consult details Narrative: upper endo PMFSH Active Problems Active Problems: All Active Problems (Updated 08/16/24 @ 13:04 by Lisa Morgan RN) S/P laparoscopic cholecystectomy (Acute) Persistent atrial fibrillation (Acute) Hospital discharge follow-up (Acute) CAD (coronary artery disease) (Acute) Heart failure with preserved ejection fraction (Acute) Acalculous cholecystitis (Acute) Past Medical History Medical History COPD (chronic obstructive pulmonary disease) Orthostatic hypotension Pleural effusion History of cardioversion Cardiac arrest Atrial fibrillation Acalculous cholecystitis CAD (coronary artery disease) Acute hypercapnic respiratory failure due to obstructive sleep apnea Symptomatic bradycardia Sleep apnea Heart failure with preserved ejection fraction Throat cancer HTN (hypertension) Family History Family History Daughter Breast cancer Family history of problems with anesthesia: No Surgical History Surgical History History of thoracentesis Hx of tracheostomy Status post insertion of percutaneous endoscopic gastrostomy (PEG) tube Hx of endoscopic retrograde cholangiopancreatography History of esophagogastroduodenoscopy (EGD) Hx of appendectomy History of back surgery History of laparoscopic cholecystectomy (11/29/23) Atrial fibrillation status post cardioversion History of Problems with Anesthesia: No Social History Social History Household Members: Family Housing: House Are you a primary school child care attendant to a significant other at home: No Do you presently have visiting nurse or other home services: No Alcohol intake: never Comment: counts correct Patient Tobacco Use Status: Former Tobacco user Tobacco use type: Cigarette Years Smoked: 42 Advance Directives Date on File: 01/13/21 service: No Current occupational status: disabled Meds Allergies Allergy/AdvReac Type Severity Reaction Status Date / Time amiodarone Allergy Severe Difficulty Verified 04/17/24 10:39 Breathing Active Medications: Current Medications Albuterol Sulfate (Albuterol Sulfate (0.083%) 2.5 Mg/3 Ml Vial.Neb) 2.5 mg INHALE ONCE PRN PRN Reason: Shortness of Breath/Wheezing Lactated Ringer's (Lr) 1,000 mls @ 50 mls/hr IVCONT .Q20H DEE Last Admin: 08/21/24 12:41 Dose: 50 mls/hr Naloxone HCl (Naloxone Hcl 0.4 Mg/Ml Vial) 0.04 mg IVPUSH Q5M PRN PRN Reason: Excessive sedation or RR < 8 Home Medications ?Medication ?Instructions ?Recorded ?Confirmed ?Last Taken ?Type simvastatin 10 mg tablet 10 mg PO BEDTIME 01/16/22 08/16/24 04/17/24 History escitalopram oxalate 10 mg tablet 10 mg PO QAM 03/31/22 08/16/24 04/17/24 History gabapentin 300 mg capsule 300 mg PO TID 03/31/22 08/16/24 08/21/24 History lorazepam 1 mg tablet 1 mg PO BID PRN Anxiety 03/31/22 08/16/24 Unknown History melatonin 3 mg tablet 6 mg PO BEDTIME PRN Insomnia 03/24/23 08/16/24 04/14/23 History acetaminophen 325 mg tablet 650 mg PO Q6H PRN Pain 03/14/24 08/16/24 Unknown History (Tylenol) ascorbic acid (vitamin C) 500 mg 500 mg PO QAM 03/14/24 08/16/24 04/17/24 History tablet metoprolol tartrate 25 mg tablet 12.5 mg PO BID 06/10/24 08/16/24 08/21/24 History digoxin 125 mcg (0.125 mg) tablet 0.125 mg PO QAM 08/16/24 08/16/24 08/21/24 History diphenhydramine 25 1 tab PO BEDTIME 08/16/24 08/16/24 Unknown History mg-acetaminophen 500 mg tablet (Tylenol PM Extra Strength) torsemide 20 mg tablet 20 mg PO BID 08/16/24 08/16/24 Unknown History Exam Height,Weight and Vital Signs: Height 5 ft 6 in Weight 73.028 kg Last Vital Signs Temp 98 F 08/21/24 13:43 Pulse 70 08/21/24 13:43 Resp 16 08/21/24 13:43 BP 102/59 L 08/21/24 13:43 Pulse Ox 95 08/21/24 12:29 O2 Del Method Room Air 08/21/24 12:29 Airway Mallampati Class: III TM Dist: <=3cm Neck ROM: Poor Heart: afib Lungs: cta Assessment and Plan Assessment Anesthesia Assessment: Anesthesia Plan Discussed Final Anesthetic Review Family History of Problems with Anesthesia: No History of Problems with Anesthesia: No NPO: Yes ASA Class: III Final Preanesthetic Review: No Changes in Pt Med Stat, Meds/Allgs Chart Reviewed, Consent Obtained/Reviewed and Anes Risks/Benef Reviewed Patient Risk: Intermediate Procedure Risk: Low Anesthetic Plan Anesthetic Plan: MAC: Disposition: Standard PACU
== END 2024-08-21 14:10 | disposition home or self-care (01) ==
PROVIDERS: PCP Internal Medicine; Visit Provider Internal Medicine Gastroenterology
PROC: 0DJ08ZZ Inspection of Upper Intestinal Tract, Via Natural or Artificial Opening Endoscopic (ICD-10-PCS; CPT 43235; principal; 2024-08-21 13:20)
DX: Z46.59 Encounter for fitting and adjustment of other gastrointestinal appliance and device (principal); K29.50 Unspecified chronic gastritis without bleeding; K29.80 Duodenitis without bleeding; K20.80 Other esophagitis without bleeding; K44.9 Diaphragmatic hernia without obstruction or gangrene; I48.91 Unspecified atrial fibrillation; G47.33 Obstructive sleep apnea (adult) (pediatric); Z79.01 Long term (current) use of anticoagulants; Z90.49 Acquired absence of other specified parts of digestive tract
CPT/HCPCS: 43239; 71046; 88305; 88313; 88342; J2003; J2704

== ENCOUNTER → 2024-08-21 11:43 | Outpatient (BNV) | payer MEDICARE, MEDICAID, SELFPAY | PROVIDERS: PCP Internal Medicine; Visit Provider Internal Medicine Gastroenterology | DX: K29.70 Gastritis, unspecified, without bleeding (principal); K29.80 Duodenitis without bleeding; K20.90 Esophagitis, unspecified without bleeding | CPT/HCPCS: 43239 ==

== ENCOUNTER 2024-09-02 12:16 | Outpatient (AMB) | payer MEDICARE, MEDICAID, SELFPAY ==
--- NOTE | 2024-09-02 12:16 | MHC.OFFVIS ---
Vital Signs 09/02/24 12:17 Height 5 ft 6 in Intake Visit Reasons: S/P EGD; Dr. Whiting Intake Note: Patient telehealth follow up s/p EGD. CC: Patient c/o burning when she urinates, BMs real soft, and blood in stool a couple times, a little bit of nausea, and a lot of coughing and sneezing mostly at night time. It Program Auditor Required: No Allergies amiodarone Allergy (Severe, Verified 09/02/24 12:20) Difficulty Breathing HPI HPI S/P EGD; Dr. Whiting: Details: 79 yr old f being called for f/u She had EGD for PD stent removal, when I did the procedure it was gone, passed spontaneously she does have reflux and dyspepsia, EGD with gastritis, esophagitis and duodenitis bowels nml no abdominal pain no melena A/P; 1/ dyspepsia PLAN: 1/ Low dose PPI -pantoprazole 20 mg daily, can f/u with PCP, f/u prn PFSH Medical History COPD (chronic obstructive pulmonary disease) Orthostatic hypotension Pleural effusion History of cardioversion Cardiac arrest Atrial fibrillation Acalculous cholecystitis CAD (coronary artery disease) Acute hypercapnic respiratory failure due to obstructive sleep apnea Symptomatic bradycardia Sleep apnea Heart failure with preserved ejection fraction Throat cancer HTN (hypertension) Surgical History History of thoracentesis Hx of tracheostomy Status post insertion of percutaneous endoscopic gastrostomy (PEG) tube Hx of endoscopic retrograde cholangiopancreatography History of esophagogastroduodenoscopy (EGD) Hx of appendectomy History of back surgery History of laparoscopic cholecystectomy (11/29/23) Atrial fibrillation status post cardioversion Family History Daughter Breast cancer Social History Household Members: Family Housing: House Are you a primary career technology teacher to a significant other at home: No Do you presently have visiting nurse or other home services: No Alcohol intake: never Comment: counts correct Patient Tobacco Use Status: Former Tobacco user Tobacco use type: Cigarette Years Smoked: 42 Advance Directives Date on File: 01/13/21 service: No Current occupational status: disabled Telehealth Telehealth Telehealth Platform: Telephone Location of provider rendering services: practice address Location of patient: address on file Patient Identification confirmed using: Name, : Yes Telehealth method: voice only Patient verbally consented to treatment: Yes Patient verbally consented to billing insurance company: Yes Patient informed of any privacy concerns related to visit: Yes Minutes spent on Phone/Video with Pt.: 5 Assessment & Plan Assessment & Plan (1) Acalculous cholecystitis: Comment: w/ edd. 11/2023 Code(s): K81.9 - Cholecystitis, unspecified Category: Medical Plan: as above Medications: New pantoprazole 20 mg PO QAM 90 tabs 2RF Coding Level of Care Code Tele New Pt Level 3 (76201) Diagnoses Acalculous cholecystitis K81.9
--- OUTSIDE RECORDS SUMMARY | 2024-09-02 17:03 | XMS_ITS ---
Author Organization [facility] Address [address] [place] [address] Care Team Providers Care Radio Technician Name Role Phone Juan Miguel Martinez Primary Care Provider [phone] Active Problems Problem Noted Date Diagnosed Date Head and neck cancer 05/02/2023 Current Oncology Plans No current plan information found. Past Plans No past plan information found. Radiation Treatments * No radiation treatments are documented for this patient in [facility]. Treatments may have been administered in another system. Lifetime Dose Tracking * Chemical Lifetime Dose Automatic Entry Manual Entr y Fluoro Time 3.3 minutes 3.3 minutes 0 minutes Radiation - mGy 15.51 mGy 15.51 mGy 0 mGy Resolved Problems Problem Noted Date Diagnosed Date Resolved Date Urinary retention 05/05/2023 05/13/2023 Hyperactive delirium after surgical procedure 05/04/2005/13/2023
--- OUTSIDE RECORDS SUMMARY | 2024-09-02 17:03 | XMS_ITS | Clinical Summary ---
Author Organization [facility] Address [address] [place] [address] Care Team Providers Care Home Manager Name Role Phone Juan Miguel Martinez Primary Care Provider [phone] Allergies No known active allergies Medications acetaminophen (TYLENOL) 325 mg tablet Take 2 tablets (650 mg total) by mouth every 6 hours as needed for pain. 05/13/[address] (PROTONIX) 20 mg tablet Take 1 tablet (20 mg total) by mouth once a day. 30 tablet 05/13/2023 Active digoxin (LANOXIN) 125 mcg (0.125 mg) tablet Take 1 tablet (125 mcg total) by mouth once a day. 30 tablet 05/13/2023 Active escitalopram (LEXAPRO) 10 mg tablet Take 1 tablet (10 mg total) by mouth once a day. 30 tablet 05/13/2023 Active gabapentin (NEURONTIN) 300 mg capsule Take 1 capsule (300 mg total) by mouth 3 times a day. 90 capsule 05/13/2023 Active metoprolol tartrate (LOPRESSOR) 25 mg tablet Take 1 tablet (25 mg total) by mouth 2 times a day. 60 tablet 05/13/2023 Active simvastatin (ZOCOR) 10 mg tablet Take 1 tablet (10 mg total) by mouth nightly. 30 tablet 05/13/2023 Active torsemide (DEMADEX) 20 mg tablet Take 1 tablet (20 mg total) by mouth once a day. 30 tablet 05/13/2023 Active Eliquis 5 mg tablet Take 1 tablet (5 mg total) by mouth every 12 hours. 60 tablet 05/13/2023 Active LORazepam (ATIVAN) 1 mg tablet Take 0.5 tablets (0.5 mg total) by mouth nightly as needed for anxiety for up to 7 days. 5 tablet 05/13/2023 Active Active Problems Problem Noted Date Diagnosed Date Head and neck cancer 05/02/2023 Resolved Problems Problem Noted Date Diagnosed Date Resolved Date Urinary retention 05/05/2023 05/13/2023 Hyperactive delirium after surgical procedure 05/04/2005/13/2023 Immunizations Name Administration Dates Next Due Influenza, High Dose Seasonal, Quadrivalent PF 1 Social History Tobacco Use Types Packs/Day Years Used Date Smoking Tobacco: Former Cigarettes Smokeless Tobacco: Former Tobacco Cessation:Counseling Given: Not Answered Alcohol Use Standard Drinks/Week Comments Not Currently 0 (1 standard drink = 0.6 oz pur e alcohol) Comments No Sex and Gender Information Value Date Recorded Sex Assigned at Female 04/25/2023 9:16 AM EDT Legal Sex Female 12:06 PM EDT Gender Identity Female 04/25/2023 9:16 AM EDT Sexual Orientation Straight 04/25/2023 9: 16 AM EDT Last Filed Vital Signs Vital Sign Reading Time Taken Comments Blood Pressure 98/60 05/13/2023 12:00 PM EDT Pulse 91 05/13/2023 12:00 PM EDT Temperature 36.9 ??C (98.4 ??F) 05/13/2023 12:00 PM E DT Respiratory Rate 18 05/13/2023 12:00 PM EDT Oxygen Saturation 93% 05/13/2023 12:00 PM EDT Inhaled Oxygen Concentration - - Weight 89 kg (196 lb 3.4 oz) 05/13/2023 5:00 AM EDT Height 167.6 cm (5' 5.98 ) 05/03/2023 6:00 AM ED T Body Mass Index 31.68 05/03/2023 6:00 AM EDT Plan of Treatment Health Maintenance Due Date Last Done Comments Hepatitis C Screening 1945 COVID-19 Vaccine (#1) 1952 Pneumococcal Vaccine: 65+ Ye ars (1 of 2 - PCV) 1953 Zoster Vaccines (1 of 2) 1966 DTaP,Tdap,and Td Vaccines (1 - Tdap) 1969 CT Lung Cancer Screening (Baseline) 1997 Osteoporosis Screening 1997 RSV Vaccine (60+ years old a nd patients) (1 - 1-dose 75+ series) 2022 Influenza Vaccine (#1) 2024 05/13/2023 Alcohol/Substance Use Screening 08/07/2024 Depression Screening and Follow-Up 08/07/2024 Health Care Proxy Review 08/07/2024 Social Drivers of Health Maria R ual Screening 08/07/2024 Hepatitis B Vaccines Aged Out No long er eligible based on patient's age to complete this topic Insurance MEDICARE [facility] Advance Directives Documents on File Type Date Recorded Patient Audio Tape Librarian Expl anation Health Care Proxy 05/03/2023 3:05 PM No Si gnature Date * Full Code (Latest Code Status on File) Date Activated Date Inactivated Comments 05/03/2023 7:26 AM 05/13/2023 4:44 PM * Presumed Full Code Date Activated Date Inactivated Comments 05/02/2023 8:27 PM 05/03/2023 7:26 AM * Presumed Full Code Date Activated Date Inactivated Comments 05/02/2023 3:48 PM 05/02/2023 8:27 PM * Full Code Date Activated Date Inactivated Comments 05/02/2023 10:07 AM 05/02/2023 3:48 PM Care Teams Home Manager Relationship Specialty Start Date End Date Juan Miguel Martinez [address] [place] [address] [place] [address] PCP - General Internal Medicine 03/21/23
--- OUTSIDE RECORDS SUMMARY | 2024-09-02 17:03 | XMS_ITS | Referral Summary ---
Author Organization [facility] Address [address] [place] [address] Care Team Providers Care Multifocal Button Inspector Name Role Phone Juan Miguel Martinez Primary Care Provider [phone] Allergies No known active allergies Medications acetaminophen [...] 05/03/2023 6:00 AM EDT Plan of Treatment Not on file Insurance MEDICARE [facility] Advance Directives Documents on File Type Date Recorded Patient Motorcoach Driver Expl [facility] Health Care Proxy 05/03/2023 3:05 PM No [...] 10:07 AM 05/02/2023 3:48 PM Care Teams Multifocal Button Inspector Relationship Specialty Start Date End Date Juan Miguel Martinez [address] [place] [address] [place] [address] PCP - General Internal Medicine 03/21/23
--- OUTSIDE RECORDS SUMMARY | 2024-09-02 17:03 | XMS_ITS | Clinical Summary ---
Author Organization [facility] Address [address] [place] [address] Care Team Providers Care Human Service Coordinator Name Role Phone Unavailable Primary Care Provider Unavailabl e Social History Tobacco Use Types Packs/Day Years Used Date Smoking Tobacco: Never Assessed Comments Unknown Sex and Gender Information Value Date Recorded Sex Assigned at Not on file Legal Sex Female 8:56 AM EDT Gender Identity Not on file Sexual Orientation Not on file Plan of Treatment Health Maintenance Due Date Last Done Comments Pneumococcal Vaccine: 65+ Ye ars (1 of 1 - PCV) 2012 Influenza Vaccine (#1) 2024 Hepatitis B Vaccine Aged Out No longe r eligible based on patient's age to complete this topic [place]
== END 2024-09-02 14:46 | disposition home or self-care (01) ==
LOC: HO.HGI 12:16
PROVIDERS: PCP Internal Medicine; Visit Provider Internal Medicine Gastroenterology
DX: K81.9 Cholecystitis, unspecified (principal)
CPT/HCPCS: 98016

== ENCOUNTER 2024-10-24 13:55 | Outpatient (REF) | payer MEDICARE, MEDICAID, SELFPAY ==
[2024-10-24 15:47] LABS: Anion Gap 11 (12-20); Blood Urea Nitrogen 13 mg/dL (9-16); Calcium 9.1 mg/dL (8.4-10.2); Carbon Dioxide 32 mmol/L (22-29); Chloride 102 mmol/L (96-108); Digoxin 0.5 ng/mL (0.8-2.0); Estimated Glomerular Filt Rate > 60; Glucose Random 90 mg/dL (60-115); Potassium 4.4 mmol/L (3.3-5.1); Sodium 141 mmol/L (135-145)
[2024-10-24 15:54] LABS: B Type Natriuretic Peptide 419 pg/mL (<100)
== END 2024-10-24 13:56 | disposition home or self-care (01) ==
LOC: HO.LAB 13:55
PROVIDERS: Visit Provider Internal Medicine Cardiovascular Disease
DX: I48.19 Other persistent atrial fibrillation (principal); I11.0 Hypertensive heart disease with heart failure; I50.32 Chronic diastolic (congestive) heart failure
CPT/HCPCS: 36415; 80048; 80162; 83880; 99212

== ENCOUNTER 2024-10-24 13:55 | Outpatient (AMB) | payer MEDICARE, MEDICAID, SELFPAY ==
[2024-10-24 14:01] VITALS: BP 120/76; PULSE 66; BMI 26.7
--- NOTE | 2024-10-24 14:01 | A.OFFVIS_ITS ---
Vital Signs 10/24/24 14:01 Height 5 ft 6 in Weight 165 lb 5.547 oz BMI 26.7 BP 120/76 Blood Pressure Location Lt brachial Position Sitting Pulse 66 Intake Visit Reasons: 4 mth f/up Intake Note: 4 month follow-up hearts doing ok Central Station Operator Required: No Allergies amiodarone Allergy (Severe, Verified 09/02/24 12:20) Difficulty Breathing Medication List - Last Reconciled 10/24/24 by Adebayo Lechuga MD acetaminophen (Tylenol) 650 mg PO Q6H PRN apixaban (Eliquis) 5 mg PO BID 30 days ascorbic acid (vitamin C) 500 mg PO QAM digoxin 0.125 mg PO QAM diphenhydramine-acetaminophen 25-500 mg (Tylenol PM Extra Strength) 1 tab PO BEDTIME gabapentin 300 mg PO TID lorazepam 1 mg PO BID PRN melatonin 6 mg PO BEDTIME PRN metoprolol tartrate 12.5 mg PO BID pantoprazole 20 mg PO QAM simvastatin 10 mg PO BEDTIME torsemide 20 mg See Protocol PO QAM HPI Comments Details: Lucia comes for follow-up, accompanied by her daughter. She has not had any hospitalization with last 4 months. Overall also symptoms of lightheadedness and low blood pressure have significantly improved since reducing spironolactone. However she takes torsemide currently at 30 mg and takes 20 mg in the morning and takes a 10 mg at suppertime. She says this does not affect her sleep pattern. Denies any clear orthopnea, PND, leg edema. No weight gain. Tolerating all medications. [facility] Medical History COPD (chronic obstructive pulmonary disease) Orthostatic hypotension Pleural effusion History of cardioversion Cardiac arrest Atrial fibrillation Acalculous cholecystitis CAD (coronary artery disease) Acute hypercapnic respiratory failure due to obstructive sleep apnea Symptomatic bradycardia Sleep apnea Heart failure with preserved ejection fraction Throat cancer HTN (hypertension) Surgical History History of thoracentesis Hx of tracheostomy Status post insertion of percutaneous endoscopic gastrostomy (PEG) tube Hx of endoscopic retrograde cholangiopancreatography History of esophagogastroduodenoscopy (EGD) Hx of appendectomy History of back surgery History of laparoscopic cholecystectomy (11/29/23) Atrial fibrillation status post cardioversion Family History Daughter Breast cancer Social History Household Members: Family Housing: House Are you a primary healthcare social worker to a significant other at home: No Do you presently have visiting nurse or other home services: No Alcohol intake: never Comment: counts correct Patient Tobacco Use Status: Former Tobacco user Tobacco use type: Cigarette Years Smoked: 42 Advance Directives Date on File: 01/13/21 service: No Current occupational status: disabled Review of Systems Const Denies chills, Denies fatigue, Denies fever(s), Denies frequent falls, Denies weakness, Denies weight gain and Denies weight loss ENT Denies dizziness Card Denies chest pain, Denies leg edema, Denies lightheadedness, Denies palpitatio ns, Denies dyspnea, Denies dyspnea on exertion, Denies orthopnea and Denies other (loss of consciousness) Resp Denies cough, Denies dyspnea and Denies dyspnea on exertion GI Denies hematochezia and Denies change in stool character Musc Denies abnormal gait, Denies muscle weakness, Denies numbness, Denies radiating pain into limb and Denies tingling Neuro Denies abnormal gait, Denies dizziness, Denies frequent falls, Denies numbness, Denies tingling and Denies weakness Endo Denies fatigue and Denies palpitations Physical Exam Vital Signs: Last Vital Signs Pulse 66 10/24/24 14:01 BP 120/76 10/24/24 14:01 BMI result Body Mass Index 26.7 Const General: cooperative, comfortable, no acute distress, alert and awake Nutritional Appearance: other (Frail appearing) Orientation/consciousness: patient oriented x3 Limitations: ambulation with walker Neck Neck: Yes normal visual inspection and Yes no JVD Resp Effort & Inspection: normal respiratory effort Auscultation: clear to auscultation bilaterally, no crackles, no rales, no rhonchi and no wheezes Cardio Jugular venous distension: no JVD Rate: regular rate Rhythm: abnormal rhythm Heart sounds: S1 normal heart sound present, S2 normal heart sound present, no murmurs and no rubs Neuro General: patient oriented x3 Extrem General: Yes normal to inspection and No no pedal edema Psych Appearance: grossly normal Mental Status: mental status grossly normal Speech and movement: Normal speech and movement present Assessment & Plan Assessment & Plan (1) Heart failure with preserved ejection fraction: Code(s): I50.30 - Unspecified diastolic (congestive) heart failure Category: Medical Qualifiers: Heart failure chronicity: chronic Qualified Code(s): I50.32 - Chronic diastolic (congestive) heart failure Plan: Heart failure preserved ejection fraction, clinically euvolemic and well compensated current dose of torsemide. Continue aggressive rate control approach. She is currently off spironolactone therapy. Blood pressure is well optimized. Management of heart failure was discussed. Additional diuretics as need be. Daily weight monitoring avoidance salt loading was discussed. Goals of therapy were discussed. Advised to maintain activity level as tolerated. (2) Persistent atrial fibrillation: Code(s): I48.19 - Other persistent atrial fibrillation Category: Medical Plan: Persistent chronic atrial fibrillation, currently rate control with metoprolol as well as digoxin therapy. Can not tolerate further increase in metoprolol therapy due to low blood pressure. Digoxin assay should be performed every 6 months. Will check today. Continue full oral anticoagulation, currently on Eliquis 5 mg b.i.d.. Semi annual renal function test should be pursued. Will follow up in 6 months time, sooner p.r.n.. Thank you for allowing me to partake in her care Orders: Orders Digoxin Today I48.19 - Other persistent atrial fibrillation B Type Natriuretic Peptide Today I48.19 - Other persistent atrial fibrillation Basic Metabolic Panel Today I48.19 - Other persistent atrial fibrillation Coding Level of Care Code Est Pt Level 4 (04636) Complex EM visit Add On G2211 Diagnoses Chronic heart failure with preserved ejection fraction I50.32 Heart failure chronicity: chronic Persistent atrial fibrillation I48.19
--- OUTSIDE RECORDS SUMMARY | 2024-10-24 16:35 | XMS_ITS | Clinical Summary ---
Author Organization [facility] Facility Address [address] [place] [id number] Care Team Providers Care Pot Fireman Name Role Phone Unavailable Primary Care Provider [...]
== END 2024-10-24 14:22 | disposition home or self-care (01) ==
LOC: HO.HCS 13:56
PROVIDERS: PCP Internal Medicine; Visit Provider Internal Medicine Cardiovascular Disease
DX: I50.32 Chronic diastolic (congestive) heart failure (principal); I48.19 Other persistent atrial fibrillation
CPT/HCPCS: 99214; G2211

== ENCOUNTER 2024-11-20 13:55 | Outpatient (AMB) | payer MEDICARE, MEDICAID, SELFPAY ==
[2024-11-20 13:58] VITALS: BP 120/70; PULSE 95; TEMP 36.2; O2SAT 97; BMI 27.8
--- NOTE | 2024-11-20 13:58 | A.OFFPC_ITS ---
Vital Signs 11/20/24 13:58 Height 5 ft 6 in Weight 172 lb BMI 27.8 BP 120/70 Blood Pressure Location Lt brachial Position Sitting Pulse 95 Pulse Source Pulse Oximeter Temp 97.2 F Temp Source Axillary Pulse Oximetry (%) 97 Oxygen Delivery Method Room Air Intake Visit Reasons: Routine - see comments Sales Assistant Displays Required: No Accompanied by: Daughter Allergies amiodarone Allergy (Severe, Verified 11/20/24 14:41) Difficulty Breathing Tobacco use date assessed: 11/20/24 Fall risk assessment: 1 Fall in past year Last assessed Fall Risk: 11/20/24 Dental Screening Dental Screen Date: 11/20/24 Did you have a dental visit in the last 12 months?: No Did you have a dental problem in the last 6 months where you did not have access to dental care?: No [facility] Medical History (Updated 11/20/24 @ 14:41 by Jonathan Clarke MD) Generalized anxiety disorder COPD (chronic obstructive pulmonary disease) Orthostatic hypotension Pleural effusion History of cardioversion Cardiac arrest Atrial fibrillation Acalculous cholecystitis CAD (coronary artery disease) Acute hypercapnic respiratory failure due to obstructive sleep apnea Symptomatic bradycardia Sleep apnea Heart failure with preserved ejection fraction Throat cancer HTN (hypertension) Surgical History History of colonoscopy (~10/29/14) History of thoracentesis Hx of tracheostomy Status post insertion of percutaneous endoscopic gastrostomy (PEG) tube Hx of endoscopic retrograde cholangiopancreatography History of esophagogastroduodenoscopy (EGD) Hx of appendectomy History of back surgery History of laparoscopic cholecystectomy (11/29/23) Atrial fibrillation status post cardioversion Family History Daughter Breast cancer Social History Household Members: Family Housing: House Are you a primary adult care provider to a significant other at home: No Do you presently have visiting nurse or other home services: No Alcohol intake: never Comment: counts correct Patient Tobacco Use Status: Former Tobacco user Tobacco use type: Cigarette Years Smoked: 42 e-Cigarette/Vaping Use: Former Use Advance Directives Date on File: 01/13/21 service: No Current occupational status: disabled Cognitive needs: No Hearing needs: No Vision needs: Yes (reading glasses) Questionnaire PHQ-9 Over the last 2 weeks, how often have you been bothered by any of the following problems? 1. Little interest or pleasure in doing things: not at all 2. Feeling down, depressed, or hopeless: not at all 3. Trouble falling or staying asleep, or sleeping too much: not at all 4. Feeling tired or having little energy: not at all 5. Poor appetite or overeating: not at all 6. Feeling bad about yourself - or that you are a failure or have let yourself or your family down: not at all 7. Trouble concentrating on things, such as reading the newspaper or watching television: not at all 8. Moving or speaking so slowly that other people could have noticed. Or the opposite - being so fidgety or restless that you have been moving around a lot more than usual: not at all 9. Thoughts that you would be better off or of hurting yourself in some way: not at all Total score: 0 Source: Developed by Drs. Ramin Cook, Amanda Witt, Eliseo Gunn and colleagues, with an educational jacqueline from [employer]. Thrive Questionnaire Date Thrive assessed: 11/20/24 I am a: Patient Within the past 12 months, did the food you bought not last and you didn't have the money to get more?: Never true Within the past 12 months, did you worry whether your food would run out before you got money to buy more?: Never true Do you have trouble paying for medicines?: No Do you have trouble getting transportation to medical appointments?: No Do you have trouble paying your heating and electricity bill?: No Do you have trouble taking care of your child, family member or friend?: No Do you have trouble with day-to-day activities such as bathing, preparing meals, shopping, managing finances, etc.?: No Are you currently unemployed and looking for a job?: No Are you interested in more education?: No THRIVE Score: 0 AUDIT C Alcohol Use Questionnaire (AUDIT-C) 1. How often do you have a drink containing alcohol?: Monthly or less 2. How many drinks containing alcohol do you have on a typical day when you are drinking?: 1 or 2 3. How often do you have six or more drinks on one occasion?: Less than monthly Total Score: 2 JENNI-7 AMB Questionnaire JENNI-7 Date JENNI - 7 assessed: 11/20/24 Feeling nervous, anxious, or on edge: 0 = Not at all Not being able to stop or control worryin = Not at all Worrying too much about different things: 0 = Not at all Trouble relaxin = Not at all Being so restless that it is hard to sit still: 0 = Not at all Becoming easily annoyed or irritable: 0 = Not at all Feeling afraid as if something awful might happen: 0 = Not at all Total JENNI-7 score (0-4 normal; 5-9 mild; 10-14 moderate; 15-21 severe): 0 Source: Developed by Drs. Ramin Cook, Amanda Witt, Eliseo Gunn and colleagues, with an educational jacqueline from [employer]. Physical exam (Primary Care) Vital Signs: Last Vital Signs Temp 97.2 F 11/20/24 13:58 Pulse 95 11/20/24 13:58 BP 120/70 11/20/24 13:58 Pulse Ox 97 11/20/24 13:58 Oxygen Delivery Method Room Air 11/20/24 13:58 BMI result Body Mass Index 27.8 Tobacco/Smoking Status: Tobacco use Status Tobacco use date assessed 11/20/24 11/20/24 14:00 Patient Tobacco Use Status Former Tobacco user 11/20/24 14:00 Tobacco use type Cigarette 11/20/24 14:00 e-Cigarette/Vaping Use Former Use 11/20/24 14:00 PHQ-9: PHQ-9 Score PHQ-9: Total score 0 11/20/24 14:13 Thrive Assessment: Date of Thrive Assessment Date Thrive assessed 11/20/24 11/20/24 14:00 Coding Level of Care Code New Pt Level 4 (23387) Complex EM visit Add On G2211 Diagnoses Generalized anxiety disorder F41.1 Assessment & Plan Assessment & Plan (1) Generalized anxiety disorder: Code(s): F41.1 - Generalized anxiety disorder Category: Medical Plan: Spoke to patient and encouraged her to reduce her medication dosage from 2 mg a day to 1 mg a day. Patient has reluctantly agreed. Plan History of Present Illness The patient is a 79-year-old female presenting for a follow-up regarding the management of her chronic conditions, specifically congestive heart failure and atrial fibrillation. Her heart condition has remained stable, as observed during a follow-up with her cutter finisher where she demonstrated good cardiac function and well-managed symptoms. She has a consistent history of low blood pressure and frequent episodes of atrial fibrillation, which were evident during a recent cardiology appointment. Ms. Barrera falls within an anxious disposition, historically requiring medications for management, such as lorazepam, albeit she has reduced the intake. Her anxiety symptoms include restless legs and palpitations, and there is interest in lowering her medication dosage for better management of side effects and improvement in her overall health regimen. She reports adhering to social alcohol consumption chiefly on Monday nights and discontinued tobacco usage since 2004. Ms. Barrera experienced a fall over a week ago with residual discomfort in her head. Social History - Attends social activities weekly, including going out for [employer] on Monday - Consumes alcohol in moderation during social occasions (two to three drinks) - Ceased smoking in 2004, after experiencing ringing in the ears - Reports having sedentary occupational habits, spending significant time at a desk Review of Systems - Cardiovascular: Reports atrial fibrillation and low blood pressure - Neurological: Reports persistent head soreness due to a recent fall, restless leg syndrome - Psychiatric: Reports anxiety, historically managed with lorazepam. Reports feeling that current medication is not particularly effective - Musculoskeletal: Reports history of multiple back surgeries, use of gabapentin - General: Denies tobacco use since 2004, consumes alcohol socially once a week Physical Exam General: Cooperative and healthy appearing Nutritional Appearance: Well nourished Orientation/consciousness: Patient oriented x3 Limitations: No limitations Head: Normal to inspection General: Appearance normal, both eyes and all related structures Neck: Normal visual inspection Chest: Normal palpation of entire chest wall Respiratory: N ormal respiratory effort Neurology: Patient oriented x3, but still in AFib. Results - Tests: Most recent cardiology evaluation indicated good cardiac function and improvement post-congestive heart failure diagnosis Plan 1. 5 mg twice daily to better accommodate her anxiety management needs while minimizing medication side effects. The patient's current management plans for atrial fibrillation and congestive heart failure will remain unchanged given her stable cardiac status as per recent evaluations. Her social alcohol consumption practices are being maintained in moderation. A follow-up appointment is scheduled for three months to assess the efficacy of medication adjustments and overall condition status.: Patient was informed and verbally consented to the use of an ambient scribe for clinic note documentation during this visit. Discussion Notes During today's visit, I reviewed Ms. Barrera?s comprehensive health status, including the management of her ongoing heart conditions?congestive heart failure and atrial fibrillation?and anxiety. We discussed reducing her lorazepam dosage as a step towards better symptom management while avoiding unnecessary side effects. I provided insights into the potential benefits and risks associated with current and adjusted medications, emphasizing the role of her cardiological management. We agreed on the current management strategy and the importance of maintaining cardiac and mental health. Ms. Barrera was advised to continue with her social activities and moderate alcohol intake. She consented to a three-month follow-up to assess her response to the medication adjustments and ongoing health stability. Patient Instructions - Continue with the current heart medication regimen as prescribed by the cutter finisher - Reduce lorazepam intake to 0.5 mg twice daily for optimal anxiety management - Maintain current social habits, including limited alcohol consumption to weekly occasions - Avoid any further falls; seek medical attention if falls occur or head sorene ss worsens - Schedule a follow-up appointment in three months to evaluate medication efficacy and overall health - Notify healthcare providers about any changes in symptoms or new health concerns Medications: Discontinued lorazepam Discontinued Reason: Doctor's Order 1 mg PO BID PRN 60 tabs 0RF Anxiety
--- OUTSIDE RECORDS SUMMARY | 2024-11-20 16:38 | XMS_ITS ---
Author Organization [facility] Address [address] [place] [address] Care Team Providers Care Fly Rail Operator Name Role Phone Juan Miguel Martinez Primary Care Provider [phone] Active Problems Problem Noted Date Diagnosed Date Head and neck cancer 05/02/2023 Current Treatment and Therapy Plans No current plan information found. Past Treatment and Therapy Plans No past plan information found. Lifetime Dose Tracking * Chemical Lifetime Dose Automatic Entry Manual Entr y Fluoro Time 3.3 minutes 3.3 minutes 0 minutes Radiation - mGy 15.51 mGy 15.51 mGy 0 mGy Resolved Problems Problem Noted Date Diagnosed Date Resolved Date Urinary retention 05/05/2023 05/13/2023 Hyperactive delirium after surgical procedure 05/04/2005/13/2023
--- OUTSIDE RECORDS SUMMARY | 2024-11-20 16:38 | XMS_ITS | Referral Summary ---
Author Organization [facility] Address [address] [place] [address] Care Team Providers Care Tank Crewmember Name Role Phone Juan Miguel Martinez Primary Care Provider [phone] Allergies No known active allergies Medications acetaminophen [...] Hyperactive delirium after surgical procedure 05/04/2005/13/2023 Immunizations Immunization Administration Dates Next Due Influenza, High Dose [...] of Treatment Not on file Insurance MEDICARE [facility] Advance Directives Documents on File Type Date Recorded Patient Cooker Mechanic Expl [facility] Health Care Proxy 05/03/2023 3:05 PM No [...] 10:07 AM 05/02/2023 3:48 PM Care Teams Tank Crewmember Relationship Specialty Start Date End Date Juan Miguel Martinez [address] [place] [address] [place] [address] PCP - General Internal Medicine 03/21/23
--- OUTSIDE RECORDS SUMMARY | 2024-11-20 16:38 | XMS_ITS | Clinical Summary ---
Author Organization [facility] Address [address] [place] [address] Care Team Providers Care Nutrition Representative Name Role Phone Juan Miguel Martinez Primary Care Provider [phone] Allergies No known active allergies Medications acetaminophen [...] Last Done Comments Hepatitis C Screening 1945 Medicare AWV 1946 COVID-19 Vaccine (#1) 1952 Pneumococcal Vaccine: 50+ Ye ars (1 of 2 - PCV) 1966 Zoster Vaccines (1 of 2) 1966 DTaP,Tdap,and Td Vaccines (1 - Tdap) 1969 CT Lung Cancer Screening (Baseline) 1997 Osteoporosis Screening 1997 RSV Vaccine (60+ years old a nd patients) (1 - 1-dose 75+ series) 2022 Alcohol/Substance Use Screening 08/07/2024 Depression Screening and Follow-Up 08/07/2024 Health Care Proxy Review 08/07/2024 [employer] Maria R ual Screening 08/07/2024 Influenza Vaccine (Season Ended) 2025 05/13/20 Hepatitis B Vaccines Aged Out No long er eligible based on patient's age to complete this topic Insurance KELLI PULIDO [id number] MEDICARE [facility] Advance Directives Documents on File Type Date Recorded Patient Fabric Designer Expl anation Health Care Proxy 05/03/2023 3:05 [...] 10:07 AM 05/02/2023 3:48 PM Care Teams Nutrition Representative Relationship Specialty Start Date End Date Juan Miguel Martinez [address] [place] [address] [place] [address] PCP - General Internal Medicine 03/21/23
--- OUTSIDE RECORDS SUMMARY | 2024-11-20 16:38 | XMS_ITS | Clinical Summary ---
Author Organization [facility] Facility Address [address] [place] [id number] Care Team Providers Care Electrician Apprentice Name Role Phone Unavailable Primary Care Provider [...] Due Date Last Done Comments Pneumococcal Vaccine: 50+ Ye ars (1 of 1 - PCV) 1997 Influenza Vaccine (Season Ended) 2025 Hepatitis B Vaccine Aged Out No longe r eligible based on patient's age to complete this topic Insurance [place]
== END 2024-11-20 14:38 | disposition home or self-care (01) ==
LOC: HO.HMCHD 13:55
PROVIDERS: PCP Internal Medicine; Visit Provider Internal Medicine
DX: F41.1 Generalized anxiety disorder (principal)

== ENCOUNTER → 2024-11-20 13:55 | Outpatient (BNVA) | payer MEDICARE, MEDICAID, SELFPAY | PROVIDERS: PCP Internal Medicine; Visit Provider Internal Medicine | DX: F41.1 Generalized anxiety disorder (principal); I50.9 Heart failure, unspecified; I48.91 Unspecified atrial fibrillation | CPT/HCPCS: 96127; 99202 ==

== ENCOUNTER 2025-03-10 13:19 | Outpatient (AMB) | payer MEDICARE, MEDICAID, SELFPAY ==
--- NOTE | 2025-03-10 13:21 | A.OFFPC_ITS ---
Vital Signs 03/10/25 13:23 03/10/25 13:27 Height 5 ft 6 in Weight 176 lb BP 120/62 Blood Pressure Location Lt brachial Position Sitting Respiration 17 Pulse 78 Pulse Source Pulse Oximeter Temp 96.8 F Temp Source Temporal Artery Scan Pulse Oximetry (%) 97 Oxygen Delivery Method Room Air Intake Visit Reasons: 3 month follow up - see comments Blanker Press Operator Required: No Accompanied by: Daughter Allergies amiodarone Allergy (Severe, Verified 03/10/25 13:21) Difficulty Breathing Tobacco use date assessed: 11/20/24 Dental Screening Dental Screen Date: 11/20/24 [facility] Medical History (Updated 03/14/25 @ 08:00 by Jonathan Clarke MD) Back pain Generalized anxiety disorder COPD (chronic obstructive pulmonary disease) Orthostatic hypotension Pleural effusion History of cardioversion Cardiac arrest Atrial fibrillation Acalculous cholecystitis CAD (coronary artery disease) Acute hypercapnic respiratory failure due to obstructive sleep apnea Symptomatic bradycardia Sleep apnea Heart failure with preserved ejection fraction Throat cancer HTN (hypertension) Surgical History History of colonoscopy (~10/29/14) History of thoracentesis Hx of tracheostomy Status post insertion of percutaneous endoscopic gastrostomy (PEG) tube Hx of endoscopic retrograde cholangiopancreatography History of esophagogastroduodenoscopy (EGD) Hx of appendectomy History of back surgery History of laparoscopic cholecystectomy (11/29/23) Atrial fibrillation status post cardioversion Family History Daughter Breast cancer Social History Household Members: Family Housing: House Are you a primary customer care professional to a significant other at home: No Do you presently have visiting nurse or other home services: No Alcohol intake: never Comment: counts correct Patient Tobacco Use Status: Former Tobacco user Tobacco use type: Cigarette Years Smoked: 42 e-Cigarette/Vaping Use: Former Use Advance Directives Date on File: 01/13/21 service: No Current occupational status: disabled Cognitive needs: No Hearing needs: No Vision needs: Yes (reading glasses) Questionnaire Thrive Questionnaire Date Thrive assessed: 11/20/24 JENNI-7 AMB Questionnaire JENNI-7 Date JENNI - 7 assessed: 11/20/24 Source: Developed by Drs. Ramin Cook, Amanda Witt, Eliseo Gunn and colleagues, with an educational jacqueline from [employer]. Physical exam (Primary Care) Vital Signs: Last Vital Signs Temp 96.8 F 03/10/25 13:27 Pulse 78 03/10/25 13:27 Resp 17 03/10/25 13:27 BP 120/62 03/10/25 13:27 Pulse Ox 97 03/10/25 13:27 Oxygen Delivery Method Room Air 03/10/25 13:27 Tobacco/Smoking Status: Tobacco use Status Tobacco use date assessed 11/20/24 03/10/25 13:30 Patient Tobacco Use Status Former Tobacco user 03/10/25 13:30 Tobacco use type Cigarette 03/10/25 13:30 e-Cigarette/Vaping Use Former Use 03/10/25 13:30 Thrive Assessment: Date of Thrive Assessment Date Thrive assessed 11/20/24 03/10/25 13:30 Coding Level of Care Code Est Pt Level 4 (68576) Complex EM visit Add On G2211 Diagnoses Back pain M54.9 Assessment & Plan Assessment & Plan (1) Back pain: Code(s): M54.9 - Dorsalgia, unspecified Category: Medical Plan: History of Present Illness - The patient is a 79-year-old female presenting with chronic pain and discomfort. - She reports persistent pain on the right side of her neck and back, extending to the perineal area, and describes a lump on the right side. - Her medical history includes 13 back surgeries, a lumbar fusion, and nerve damage, managed with gabapentin. - She has an upcoming appointment with her equipment maintenance technician, Dr. Lechuga. Social History Review of Systems - Musculoskeletal: Reports chronic pain and discomfort on the right side of the neck and back. - Neurological: Reports nerve damage. - General: Reports feeling miserable due to pain. Physical Exam General: Cooperative and healthy appearing Nutritional Appearance: Well nourished Orientation/consciousness: Patient oriented x3 Limitations: No limitations Head: Normal to inspection General: Appearance normal, both eyes and all related structures Neck: Normal visual inspection Chest: Normal palpation of entire chest wall Respiratory: N ormal respiratory effort Neurology: Patient oriented x3, nerve damage noted Results Plan 1. Chronic Pain - Plan to evaluate the lump on the right side with a physical examination by a nurse. 2. Right-Sided Neck And Back Discomfort - Continue current management with gabapentin for nerve pain. 3. Lumbar Fusion - No further surgical interventions planned due to extensive surgical history. 4. Nerve Damage - Management with gabapentin to continue. 5. Presence Of A Lump On The Right Side - Plan to have a nurse perform a physical examination to assess the lump. Discussion Notes The patient expressed concerns about persistent pain and a lump on the right side. I discussed the plan to have a nurse perform a physical examination to assess the lump. We also reviewed her current management with gabapentin for nerve pain and acknowledged her extensive surgical history, which limits further surgical options. The patient is scheduled to see her equipment maintenance technician next month for further evaluation. Patient Instructions - Follow up with the nurse for a physical examination of the lump. - Continue taking gabapentin as prescribed for nerve pain. - Attend the scheduled appointment with the equipment maintenance technician next month.
[2025-03-10 13:27] VITALS: BP 120/62; PULSE 78; RESP 17; TEMP 36; O2SAT 97
--- OUTSIDE RECORDS SUMMARY | 2025-03-10 13:35 | XMS_ITS | Referral Summary ---
Author Organization [facility] Address [address] [place] [address] Care Team Providers Care Jet Inspector Name Role Phone Juan Miguel Martinez Primary Care Provider [phone] Allergies No known active allergies Medications acetaminophen [...] 91 05/13/2023 12:00 PM EDT Temperature 36.9 C (98.4 F) 05/13/2023 12:00 PM EDT Respiratory Rate 18 05/13/2023 12:00 PM EDT Oxygen Saturation 93% 05/13/2023 12:00 PM EDT Inhaled Oxygen Concentration - - Weight 89 kg (196 lb 3.4 oz) 05/13/2023 5:00 AM EDT Height 167.6 cm (5' 5.98 ) 05/03/2023 6:00 AM ED T Body Mass Index 31.68 05/03/2023 6:00 AM EDT Plan of Treatment Not on file Insurance MEDICARE [facility] Advance Directives Documents on File Type Date Recorded Patient Director Executive Communications Expl [facility] Care Proxy 05/03/2023 3:05 PM No Si [...] 10:07 AM 05/02/2023 3:48 PM Care Teams Jet Inspector Relationship Specialty Start Date End Date Juan Miguel Martinez [address] [place] [address] [place] [address] PCP - General Internal Medicine 03/21/23
--- OUTSIDE RECORDS SUMMARY | 2025-03-10 13:35 | XMS_ITS | Clinical Summary ---
Author Organization [facility] Facility Address [address] [place] [address] Care Team Providers Care Marine Safety Officer Name Role Phone Unavailable Primary Care Provider [...] of 1 - PCV) 1997 Influenza Vaccine (#1) 2025 Hepatitis B Vaccine Aged Out No longe r eligible based on patient's age to complete this topic Insurance [place]
== END 2025-03-10 13:47 | disposition home or self-care (01) ==
LOC: HO.HMCHD 13:20
PROVIDERS: PCP Internal Medicine; Visit Provider Internal Medicine
DX: M54.9 Dorsalgia, unspecified (principal)

== ENCOUNTER → 2025-03-10 13:19 | Outpatient (BNVA) | payer MEDICARE, MEDICAID, SELFPAY | PROVIDERS: PCP Internal Medicine; Visit Provider Internal Medicine | DX: M54.9 Dorsalgia, unspecified (principal) | CPT/HCPCS: 99212 ==

== ENCOUNTER 2025-04-24 14:24 | Outpatient (AMB) | payer MEDICARE, MEDICAID, SELFPAY ==
[2025-04-24 14:28] VITALS: BP 120/76; PULSE 92; RESP 73; BMI 28.5
--- NOTE | 2025-04-24 14:28 | MHC.OFFVIS ---
Vital Signs 04/24/25 14:28 Height 5 ft 6 in Weight 176 lb 5.917 oz BMI 28.5 BP 120/76 Blood Pressure Location Lt brachial Position Sitting Respiration 73 H Pulse 92 Intake Visit Reasons: 6m follow up Intake Note: 6 month follow-up c/o some palpitations her lorazepam is being stopped Knitter Wire Mesh Required: No Allergies amiodarone Allergy (Severe, Verified 03/10/25 13:21) Difficulty Breathing Medication List - Last Reconciled 04/24/25 by Adebayo Lechuga MD apixaban (Eliquis) 5 mg PO BID 30 days ascorbic acid (vitamin C) 500 mg PO QAM digoxin 0.125 mg PO QAM diphenhydramine-acetaminophen 25-500 mg (Tylenol PM Extra Strength) 1 tab PO BEDTIME escitalopram oxalate 10 mg PO DAILY gabapentin 300 mg PO TID lorazepam (Ativan) 0.5 mg PO BEDTIME PRN melatonin 6 mg PO BEDTIME PRN metoprolol tartrate 12.5 mg (1/2 x 25 mg) PO BID pantoprazole 20 mg PO QAM simvastatin 10 mg PO BEDTIME torsemide 10 mg PO DAILY PRN HPI Comments Details: Lucia comes for follow-up. She says she has been having increased anxiety since fci use of benzodiazepine and was curtailed recently. She is having more tremors and discomfort in his chest. She denies any prolonged palpitation irregular heartbeat. Denies any heart failure symptoms. Daughter says that torsemide was not represcribed and currently she has not been taking torsemide and she has been doing well. No leg edema, orthopnea, PND. No lightheadedness, syncope. Takes her metoprolol and digoxin and Eliquis. [facility] Medical History Back pain Generalized anxiety disorder COPD (chronic obstructive pulmonary disease) Orthostatic hypotension Pleural effusion History of cardioversion Cardiac arrest Atrial fibrillation Acalculous cholecystitis CAD (coronary artery disease) Acute hypercapnic respiratory failure due to obstructive sleep apnea Symptomatic bradycardia Sleep apnea Heart failure with preserved ejection fraction Throat cancer HTN (hypertension) Surgical History History of colonoscopy (~10/29/14) History of thoracentesis Hx of tracheostomy Status post insertion of percutaneous endoscopic gastrostomy (PEG) tube Hx of endoscopic retrograde cholangiopancreatography History of esophagogastroduodenoscopy (EGD) Hx of appendectomy History of back surgery History of laparoscopic cholecystectomy (11/29/23) Atrial fibrillation status post cardioversion Family History Daughter Breast cancer Social History Household Members: Family Housing: House Are you a primary live in caregiver to a significant other at home: No Do you presently have visiting nurse or other home services: No Alcohol intake: never Comment: counts correct Patient Tobacco Use Status: Former Tobacco user Tobacco use type: Cigarette Years Smoked: 42 e-Cigarette/Vaping Use: Former Use Advance Directives Date on File: 01/13/21 service: No Current occupational status: disabled Cognitive needs: No Hearing needs: No Vision needs: Yes (reading glasses) Review of Systems Const Denies chills, Denies fatigue, Denies fever(s), Denies frequent falls, Denies weakness, Denies weight gain and Denies weight loss ENT Denies dizziness Card Denies chest pain, Denies leg edema, Denies lightheadedness, Denies palpitations, Denies dyspnea, Denies dyspnea on exertion, Denies orthopnea and Denies other (loss of consciousness) Resp Denies cough, Denies dyspnea and Denies dyspnea on exertion GI Denies hematochezia and Denies change in stool character Musc Denies abnormal gait, Denies muscle weakness, Denies numbness, Denies radiating pain into limb and Denies tingling Neuro Denies abnormal gait, Denies dizziness, Denies frequent falls, Denies numbness, Denies tingling and Denies weakness Endo Denies fatigue and Denies palpitations Physical Exam Vital Signs: Last Vital Signs Pulse 92 04/24/25 14:28 BP 120/76 04/24/25 14:28 BMI result Body Mass Index 28.5 Const General: cooperative, comfortable, no acute distress, alert, awake and anxious Nutritional Appearance: other (Frail appearing) Orientation/consciousness: patient oriented x3 Limitations: ambulation with walker Neck Neck: Yes normal visual inspection and Yes no JVD Resp Effort & Inspection: normal respiratory effort Auscultation: clear to auscultation bilaterally, no crackles, no rales, no rhonchi and no wheezes Cardio Jugular venous distension: no JVD Rate: regular rate Rhythm: abnormal rhythm Heart sounds: S1 normal heart sound present, S2 normal heart sound present, no murmurs and no rubs Neuro General: patient oriented x3 Extrem General: Yes normal to inspection and No no pedal edema Psych Appearance: grossly normal Mental Status: mental status grossly normal Speech and movement: Normal speech and movement present Office Procedures EKG Details: EKG shows atrial fibrillation with nonspecific T-wave changes [id number], Complete Assessment & Plan Assessment & Plan (1) Heart failure with preserved ejection fraction: Code(s): I50.30 - Unspecified diastolic (congestive) heart failure Category: Medical Qualifiers: Heart failure chronicity: chronic Qualified Code(s): I50.32 - Chronic diastolic (congestive) heart failure Plan: Heart failure preserved ejection fraction, clinically euvolemic and well compensated off any loop diuretic does this point time. Have prescribed a torsemide on a PRN basis as needed. Daughter understands the use of it. Daily weight monitoring avoidance salt loading was discussed. Continue rate control for atrial fibrillation. Avoidance of salt loading was discussed. (2) Persistent atrial fibrillation: Code(s): I48.19 - Other persistent atrial fibrillation Category: Medical Plan: Persistent intermediate designer atrial fibrillation with adequate rate control on metoprolol and digoxin. Will obtain digoxin assay every 6 months. Continue full oral anticoagulation, currently on Eliquis 5 mg b.i.d.. Semi annual renal function test should be pursued. (3) CAD (coronary artery disease): Comment: follows w/[facility] Code(s): I25.10 - Atherosclerotic heart disease of [place] coronary artery without angina pectoris Category: Medical Qualifiers: Coronary Disease-Associated Artery/Lesion type: [place] artery [place] vs. transplanted heart: [place] heart Associated angina: without angina Qualified Code(s): I25.10 - Atherosclerotic heart disease of [place] coronary artery without angina pectoris Plan: CAD nonobstructive without any concerning symptoms at this point time. Currently on full oral anticoagulation with apixaban, avoid aspirin therapy. Blood pressure is well optimized. Will follow up in the clinic in 6 months time, sooner p.r.n.. Thank you for allowing me to partake in her care Orders: Orders Digoxin Today I48.19 - Other persistent atrial fibrillation, I48.20 - Chronic atrial fibrillation, unspecified Basic Metabolic Panel Today I48.19 - Other persistent atrial fibrillation Medications: New torsemide 10 mg PO DAILY PRN 30 tabs 5RF CHF symptoms I48.19 - Other persistent atrial fibrillation Coding Level of Care Code Est Pt Level 4 (52421) Complex EM visit Add On G2211 Diagnoses Chronic heart failure with preserved ejection fraction I50.32 Heart failure chronicity: chronic Persistent atrial fibrillation I48.19 Coronary artery disease involving [place] coronary artery of [place] heart without angina pectoris I25.10 Coronary Disease-Associated Artery/Lesion type: [place] artery [place] vs. transplanted heart: [place] heart Associated angina: without angina CPT Codes EKG - CPT: 98072-[id number], Complete ([id number])
--- OUTSIDE RECORDS SUMMARY | 2025-04-24 16:14 | XMS_ITS | Clinical Summary ---
Author Organization [facility] Address [address] [place] [address] Care Team Providers Care Mechanical Specialist Name Role Phone Juan Miguel Martinez Primary Care Provider [phone] Allergies No known active allergies Medications acetaminophen [...] Follow-Up 08/07/2024 Health Care Proxy Review 08/07/2024 [facility] Maria R ual Screening 08/07/2024 Influenza Vaccine (#1) 2025 05/13/2023 Hepatitis B Vaccines Aged Out No long er eligible based on patient's age to complete this topic Insurance KLELI PULIDO [id number] MEDICARE [facility] Advance Directives Documents on File Type Date Recorded Patient Jumpbasting Canvas Baster Expl anation Health Care Proxy 05/03/2023 3:05 [...] 10:07 AM 05/02/2023 3:48 PM Care Teams Mechanical Specialist Relationship Specialty Start Date End Date Juan Miguel Martinez [address] [place] [address] dr Ashok Pulido, KELLI [id number] PCP - General Internal Medicine 03/21/23
--- OUTSIDE RECORDS SUMMARY | 2025-04-24 16:14 | XMS_ITS | Clinical Summary ---
Author Organization [facility] Facility Address [address] [place] [id number] Care Team Providers Care Tile Roofer Name Role Phone Unavailable Primary Care Provider [...]
--- OUTSIDE RECORDS SUMMARY | 2025-04-24 16:14 | XMS_ITS ---
Author Organization [facility] Address [address] [place] [address] Care Team Providers Care Sulfonator Operator Name Role Phone Juan Miguel Martinez Primary Care Provider [phone] Active Problems Problem Noted Date Diagnosed Date [...]
== END 2025-04-24 14:58 | disposition home or self-care (01) ==
LOC: HO.HCS 14:25
PROVIDERS: PCP Internal Medicine; Visit Provider Internal Medicine Cardiovascular Disease
DX: I50.32 Chronic diastolic (congestive) heart failure (principal); I48.19 Other persistent atrial fibrillation; I25.10 Atherosclerotic heart disease of native coronary artery without angina pectoris
CPT/HCPCS: 93010; 99214; G2211

== ENCOUNTER 2025-04-24 14:24 | Outpatient (REF) | payer MEDICARE, MEDICAID, SELFPAY ==
[2025-04-24 17:39] LABS: Anion Gap 10 (12-20); Blood Urea Nitrogen 9 mg/dL (9-16); Calcium 9.4 mg/dL (8.4-10.2); Carbon Dioxide 31 mmol/L (22-29); Chloride 104 mmol/L (96-108); Estimated Glomerular Filt Rate > 60; Potassium 4.2 mmol/L (3.3-5.1); Sodium 141 mmol/L (135-145)
[2025-04-24 18:45] LABS: Digoxin 0.5 ng/mL (0.8-2.0)
== END 2025-04-24 14:25 | disposition home or self-care (01) ==
LOC: HO.LAB 14:24
PROVIDERS: PCP Internal Medicine; Visit Provider Internal Medicine Cardiovascular Disease
DX: I50.32 Chronic diastolic (congestive) heart failure (principal); I48.19 Other persistent atrial fibrillation; I25.10 Atherosclerotic heart disease of native coronary artery without angina pectoris; Z79.01 Long term (current) use of anticoagulants
CPT/HCPCS: 36415; 80048; 80162; 93005; 99212

== ENCOUNTER 2025-04-29 12:54 | Outpatient (AMB) | payer MEDICARE, MEDICAID, SELFPAY ==
--- NOTE | 2025-04-29 12:56 | MHC.PC.OV ---
Vital Signs 04/29/25 13:05 Height 5 ft 6 in Weight 176 lb BMI 28.4 BP 108/62 Blood Pressure Location Lt brachial Position Sitting Respiration 18 Pulse 74 Pulse Source Pulse Oximeter Temp 97.0 F Temp Source Temporal Artery Scan Pulse Oximetry (%) 98 Oxygen Delivery Method Room Air Intake Visit Reasons: TAMIKO/Dr Phillips Changeover Operator Required: No Accompanied by: daughter Lorraine Allergies amiodarone Allergy (Severe, Verified 04/29/25 12:56) Difficulty Breathing Medication List - Last Reconciled 04/29/25 by Jostin Barrera MD apixaban (Eliquis) 5 mg PO BID 30 days ascorbic acid (vitamin C) 500 mg PO QAM buspirone 5 mg PO TID 90 days digoxin 0.125 mg PO QAM diphenhydramine-acetaminophen 25-500 mg (Tylenol PM Extra Strength) 1 tab PO BEDTIME PRN escitalopram oxalate 10 mg PO DAILY gabapentin 300 mg PO TID melatonin 6 mg PO BEDTIME PRN metoprolol tartrate 12.5 mg (1/2 x 25 mg) PO BID pantoprazole 20 mg PO QAM simvastatin 10 mg PO BEDTIME torsemide 10 mg PO DAILY PRN Tobacco use date assessed: 11/20/24 Last assessed Fall Risk: 04/29/25 Dental Screening Dental Screen Date: 11/20/24 HPI HPI Comments History of Present Illness Details The patient is a 79-year-old female presenting with persistent chronic pain. The pain is reported to have been localized primarily on the left side of her back and has been ongoing for a few months but worsening over the past couple of weeks. The patient describes the pain as exacerbated upon standing and states it started affecting her daily activities. She also reported a recent fall while transitioning from her wheelchair to a dining room chair, landing on her right knee, which contributed to her overall discomfort but did not result in head injury. Additional clinical concerns discussed include a history of anxiety following episodes of flatlining due to congestive heart failure, with the patient expressing fear and heightened anxiety ever since these events. The high anxiety seems to be a continuing concern, particularly related to past congestive heart failure episodes. The patient's daughter reports an incident related to lorazepam treatment for anxiety, previously prescribed at 2 mg but tapered to 0.5 mg daily, due to observed heart palpitations. The patient also discussed a significant history with throat cancer, having undergone radiation and surgical interventions, which resulted in long-term side effects including changes in her auditory functions. Furthermore, she has a history of cervical cancer, gastrointestinal reflux disease, and hypertension-like symptoms. The patient experiences mild cognitive symptoms, which were highlighted as potential early signs of dementia aggravated by long-term lorazepam use. Kidney-related discomfort was lightly noted, but the patient reports no current dysuria or fever. Medical History: - Chronic pain - Atrial fibrillation - Congestive heart failure - Anxiety disorder - Neuropathy - Restless legs syndrome - Gastroesophageal reflux disease - Hyperlipidemia - Chronic kidney disease - Constipation - Urinary tract infections Surgical History: - Neck surgery with fusion from cervical cancer - Throat cancer excisions with skin graft placements - Multiple surgeries related to degenerative disc disease Medications: - Digoxin 0.125 mg daily for atrial fibrillation - Eliquis 5 mg twice daily for prevention of thromboembolism - Gabapentin 300 mg three times daily for neuropathy - Metoprolol tartrate 12.5 mg twice daily for rate control in atrial fibrillation - Torsemide (dose not specified) for heart failure - Simvastatin 10 mg for hyperlipidemia - Pantoprazole for gastrointestinal reflux - Melatonin 6 mg for sleep - Citalopram for anxiety Diagnostic Results: - QTC interval: 416 ms on recent EKG - Episodes of congestive heart failure with multiple resuscitation efforts Social: - [place] on stair usage; son provides partial in-home support - Former smoker, quit in 2004 - Dietary habits include fish, vegetables, Ensure, and fiber supplements; demonstrates interest in maintaining a healthy diet - Experiences heightened anxiety related to past congestive heart failure incidents and associated flatlining - Does not currently consume alcohol per conversation - Limited functional activity due to pain and uses a wheelchair for ambulation [facility] Medical History (Updated 04/29/25 @ 13:49 by Jostin Barrera MD) End of life care Hyperlipidemia Flank pain, acute Back pain Generalized anxiety disorder COPD (chronic obstructive pulmonary disease) Orthostatic hypotension Pleural effusion History of cardioversion Cardiac arrest Atrial fibrillation Acalculous cholecystitis CAD (coronary artery disease) Acute hypercapnic respiratory failure due to obstructive sleep apnea Symptomatic bradycardia Sleep apnea Heart failure with preserved ejection fraction Throat cancer HTN (hypertension) Surgical History History of colonoscopy (~10/29/14) History of thoracentesis Hx of tracheostomy Status post insertion of percutaneous endoscopic gastrostomy (PEG) tube Hx of endoscopic retrograde cholangiopancreatography History of esophagogastroduodenoscopy (EGD) Hx of appendectomy History of back surgery History of laparoscopic cholecystectomy (11/29/23) Atrial fibrillation status post cardioversion Family History Daughter Breast cancer Social History Household Members: Family Housing: House Are you a primary career based intervention coordinator to a significant other at home: No Do you presently have visiting nurse or other home services: No Alcohol intake: never Comment: counts correct Patient Tobacco Use Status: Former Tobacco user Tobacco use type: Cigarette Years Smoked: 42 e-Cigarette/Vaping Use: Former Use Advance Directives Date on File: 01/13/21 service: No Current occupational status: disabled Cognitive needs: No Hearing needs: No Vision needs: Yes (reading glasses) Questionnaire Thrive Questionnaire Date Thrive assessed: 11/20/24 JENNI-7 AMB Questionnaire JENNI-7 Date JENNI - 7 assessed: 11/20/24 Source: Developed by Drs. Ramin Cook, Amanda Witt, Eliseo Gunn and colleagues, with an educational jacqueline from [employer]. Review of Systems Const Details: - Cardiovascular: Reports heart palpitations, denies recent dyspnea - Musculoskeletal: Reports left-sided back pain; denies acute joint swelling - Gastrointestinal: Denies dysuria, acknowledges previous UTI history; no current fever or chills - Neurological: Reports neuropathic pain; denies confusion - Psychological: Reports high anxiety levels - Ears/Auditory: Reports auditory issues post-radiation All systems reviewed & are unremarkable except as reviewed in HPI and above Physical exam (Primary Care) Vital Signs: Last Vital Signs Temp 97.0 F 04/29/25 13:05 Pulse 74 04/29/25 13:05 Resp 18 04/29/25 13:05 BP 108/62 04/29/25 13:05 Pulse Ox 98 04/29/25 13:05 Oxygen Delivery Method Room Air 04/29/25 13:05 BMI result Body Mass Index 28.4 Tobacco/Smoking Status: Tobacco use Status Tobacco use date assessed 11/20/24 04/29/25 12:57 Patient Tobacco Use Status Former Tobacco user 04/29/25 12:57 Tobacco use type Cigarette 04/29/25 12:57 e-Cigarette/Vaping Use Former Use 04/29/25 12:57 Thrive Assessment: Date of Thrive Assessment Date Thrive assessed 11/20/24 04/29/25 12:57 Advance Care Planning discussion: Completed/Scanned (DNR/DNI) Date of discussion: 04/29/25 Who was present: Daughter Forms completed: MOLST Time spent: 1-15 minutes, on File Actual minutes spent: 10 Const Other: General: +Alert and oriented, Well nourished, No acute distress. Eye: Pupils are equal, round and reactive to light, Intact accommodation, Extraocular movements are intact, Normal conjunctiva, Vision unchanged. HENT: Normocephalic, Atraumatic, Tympanic membranes are clear, Normal hearing, Oral mucosa is moist, No pharyngeal erythema, Ear canals patent. Respiratory: Lungs CTA bilaterally, No wheeze, Respirations are non-labored. Cardiovascular: Regular rate, Regular rhythm, S1 auscultated, S2 auscultated, No murmur, Good pulses equal in all extremities, Normal peripheral perfusion, No edema. Gastrointestinal: Soft, Non-tender, Non-distended, Normal bowel sounds, No organomegaly. Musculoskeletal: Normal range of motion, Normal strength, No tenderness, No swelling, No deformity, Normal gait. Integumentary: Warm, Dry, [place], Intact. Neurologic: Alert, Oriented, Normal sensory, Normal motor function, No focal defects, Cranial Nerves II-XII are grossly intact, Normal deep tendon reflexes. Psychiatric: Cooperative, Appropriate mood & affect, Normal judgment. Coding Level of Care Code Est Pt Level 4 (24550) Complex EM visit Add On G2211 Diagnoses Flank pain, acute R10.9 Chronic heart failure with preserved ejection fraction I50.32 Heart failure chronicity: chronic Generalized anxiety disorder F41.1 Coronary artery disease involving [place] coronary artery of [place] heart without angina pectoris I25.10 Associated angina: without angina Coronary Disease-Associated Artery/Lesion type: [place] artery [place] vs. transplanted heart: [place] heart Persistent atrial fibrillation I48.19 Chronic bilateral low back pain with bilateral sciatica M54.42; M54.41; G89.29 Back pain location: low back pain Chronicity: chronic Back pain laterality: bilateral Sciatica presence: with sciatica Sciatica laterality: bilateral sciatica Other hyperlipidemia E78.49 Hyperlipidemia type: other hyperlipidemia End of life care Z51.5 Additional Codes Vital Signs *Quality* - Advance Care Planning discussion: Completed/Scanned ([id number]) Vital Signs *Quality* - Time spent: 1-15 minutes, on File ([id number]) Assessment & Plan Assessment & Plan (1) Flank pain, acute: Comment: Presented with left-sided flank pain with tenderness along the left flank. Denies any fevers or chills however reported a recent fall. Does appear to be muscular in nature however advised patient that if she develops ear was and chose to follow up with us in clinic or visit the ED. Code(s): R10.9 - Unspecified abdominal pain Category: Medical (2) Heart failure with preserved ejection fraction: Comment: - Reinforce monitoring of signs of fluid overload; reintroduce torsemide if signs of overload (such as ankle swelling) reappear. Education on using weight checks in fluid management. 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 Transition to buspirone, an SSRI, was advised, for it has lower addiction risks. Monitoring of Buspar especially for extreme agitation or sweating is planned. Code(s): F41.1 - Generalized anxiety disorder Category: Medical (4) CAD (coronary artery disease): Comment: - Continued follow up with cardiology Code(s): I25.10 - Atherosclerotic heart disease of [place] coronary artery without angina pectoris Category: Medical Qualifiers: Associated angina: without angina Coronary Disease-Associated Artery/Lesion type: [place] artery [place] vs. transplanted heart: [place] heart Qualified Code(s): I25.10 - Atherosclerotic heart disease of [place] coronary artery without angina pectoris (5) Persistent atrial fibrillation: Comment: - Maintaining digoxin and metoprolol for rate control. - With Eliquis continued for stroke prevention, safety counselor on the risk of bleed associated with falls. Code(s): I48.19 - Other persistent atrial fibrillation Category: Medical (6) Back pain: Comment: - S/p multiple surgeries - Initiated discussion on management with gabapentin continuation recommended for neuropathy. Evaluate the effectiveness in further appointments. - Encourage the use of Tylenol for pain relief with advice against ibuprofen to avoid renal complications. Code(s): M54.9 - Dorsalgia, unspecified Category: Medical Qualifiers: Back pain location: low back pain Chronicity: chronic Back pain laterality: bilateral Sciatica presence: with sciatica Sciatica laterality: bilateral sciatica Qualified Code(s): M54.42 - Lumbago with sciatica, left side; M54.41 - Lumbago with sciatica, right side; G89.29 - Other chronic pain (7) Hyperlipidemia: Comment: - Suggest continued simvastatin use at 10 mg for cholesterol control. Code(s): E78.5 - Hyperlipidemia, unspecified Category: Medical Qualifiers: Hyperlipidemia type: other hyperlipidemia Qualified Code(s): E78.49 - Other hyperlipidemia (8) End of life care: Comment: - DNR/DNI status was discussed in the context of prior experiences with resuscitation to respect patient autonomy, ensuring a MOLST form is completed and aligned with EMS practice guidelines. Code(s): Z51.5 - Encounter for palliative care Category: Medical Plan: Health maintenance: - Discussion around cardiovascular risk factors with planned interventions through lipid management and weight control - Emphasis on the importance of dietary fiber consumption - Encouraged weight checks for fluid management related to congestive heart failure Patient was informed and verbally consented to the use of an ambient scribe for clinic note documentation during this visit. Plan In today?s visit, I reviewed the patient?s chronic and acute medical issues, including chronic pain management, anxiety disorder due to past heart incidents, and ongoing gastrointestinal complaints. We defined the medication regimen?s adjustments, introducing buspirone to manage anxiety while phasing out lorazepam. The patient was counseled on her conditional DNR/DNI status considering her frailty and history of prior rib fractures due to past resuscitation efforts. Given her predisposition to falls, associated with sedative use, I emphasized the importance of balancing pain management without narcotics. The potential transition to physical therapy was proposed to support her activity level and mobility. I recommended fiber intake improvements to manage GI symptoms in conjunction with pantoprazole, assisting with GERD symptoms. We reviewed her robust list of medications for current conditions managed including congestive heart failure and atrial fibrillation treatments. The anticipated benefits and cautions related to the new anxiety medication were discussed. Overall, we outlined the [id number] strategy and set expectations for at-home monitoring, including fluid status and weight evaluations. Anticipatory guidance for emergent pain or potential UTI symptoms was provided. Orders: Orders PT Evaluation and Treatment Today M54.9 - Dorsalgia, unspecified, R26.9 - Unspecified abnormalities of gait and mobility Medications: New buspirone 5 mg PO TID 270 tabs 0RF 90 days Patient Instructions: - Continue gabapentin as prescribed for nerve pain. - Take Tylenol for pain instead of ibuprofen. - Monitor for any rapid changes in weight. If you see an increase, take the torsemide and check with the clinic. - Log daily weights. - Increase fiber intake with Metamucil as instructed. - Track any changes in anxiety. - Place MOLST on the fridge and remember DNR/DNI wishes. - Make sure you're hydrating well, especially with dietary fiber. - If appliances like Eliquis need pausing for procedures, consult the clinic beforehand. - Call the clinic or visit the ER for any new severe symptoms.
[2025-04-29 13:05] VITALS: BP 108/62; PULSE 74; RESP 18; TEMP 36.1; O2SAT 98; BMI 28.4
== END 2025-04-29 13:51 | disposition home or self-care (01) ==
LOC: HO.HMCHD 12:55
PROVIDERS: PCP Student in an Organized Health Care Education/Training Program; Visit Provider Student in an Organized Health Care Education/Training Program
DX: R10.9 Unspecified abdominal pain (principal); I48.19 Other persistent atrial fibrillation; I50.32 Chronic diastolic (congestive) heart failure; F41.1 Generalized anxiety disorder; I25.10 Atherosclerotic heart disease of native coronary artery without angina pectoris; M54.42 Lumbago with sciatica, left side; M54.41 Lumbago with sciatica, right side; G89.29 Other chronic pain; E78.49 Other hyperlipidemia; Z51.5 Encounter for palliative care; Z00.00 Encounter for general adult medical examination without abnormal findings

== ENCOUNTER → 2025-04-29 12:54 | Outpatient (BNVA) | payer MEDICARE, MEDICAID, SELFPAY | PROVIDERS: PCP Internal Medicine; Visit Provider Student in an Organized Health Care Education/Training Program | DX: R10.9 Unspecified abdominal pain (principal); I50.32 Chronic diastolic (congestive) heart failure; F41.1 Generalized anxiety disorder; I25.10 Atherosclerotic heart disease of native coronary artery without angina pectoris; I48.19 Other persistent atrial fibrillation; M54.42 Lumbago with sciatica, left side; M54.41 Lumbago with sciatica, right side; G89.29 Other chronic pain; E78.49 Other hyperlipidemia; Z85.89 Personal history of malignant neoplasm of other organs and systems; Z51.5 Encounter for palliative care; Z79.01 Long term (current) use of anticoagulants; Z79.899 Other long term (current) drug therapy; Z92.3 Personal history of irradiation | CPT/HCPCS: 99212 ==

== ENCOUNTER 2025-07-22 13:57 | Outpatient (AMB) | payer MEDICARE, MEDICAID, SELFPAY ==
--- NOTE | 2025-07-22 14:19 | MHC.PC.OV ---
Vital Signs 07/22/25 14:28 Height 5 ft 6 in Weight 182 lb BMI 29.4 BP 102/60 Blood Pressure Location Lt brachial Position Sitting Respiration 18 Pulse 81 Pulse Source Pulse Oximeter Temp 97.5 F Temp Source Temporal Artery Scan Pulse Oximetry (%) 98 Oxygen Delivery Method Room Air Intake Visit Reasons: 3 Month F/U Welfare Officer Required: No Accompanied by: daughter-Lorraine Allergies amiodarone Allergy (Severe, Verified 07/22/25 14:19) Difficulty Breathing Medication List - Last Reconciled 07/22/25 by Jostin Barrera MD apixaban (Eliquis) 5 mg PO BID 90 days ascorbic acid (vitamin C) 500 mg PO QAM buspirone 5 mg PO TID 90 days digoxin 0.125 mg PO QAM 90 days diphenhydramine-acetaminophen 25-500 mg (Tylenol PM Extra Strength) 1 tab PO BEDTIME PRN escitalopram oxalate 10 mg PO DAILY gabapentin take 1 cap orally in the morning and afternoon and 2 in the evening 30 days melatonin 6 mg PO BEDTIME PRN metoprolol tartrate 12.5 mg (1/2 x 25 mg) PO BID pantoprazole 20 mg PO QAM simvastatin 10 mg PO BEDTIME torsemide 10 mg PO DAILY PRN Tobacco use date assessed: 11/20/24 Fall risk assessment: No Falls in past year Last assessed Fall Risk: 07/22/25 Dental Screening Dental Screen Date: 11/20/24 HPI HPI Comments History of Present Illness Details History of Present Illness The patient is a 80 year old female presenting with significant back pain, primarily localized to her left flank area. The pain is exacerbated by movement and is somewhat alleviated by lying on her right side. Initially, she thought it was related to her mattress or over-exercising. She has a history of back problems and multiple falls years ago. Regarding her bowel habits, she reports good and bad days and recently experienced an episode of bowel incontinence. She has been on gabapentin for years for nerve damage, originally for a burning sensation in her feet and ankles. She has found some relief from her pain by taking an extra dose of gabapentin instead of her usual Tylenol PM. The patient has a history of atrial fibrillation, for which she is prescribed Eliquis and metoprolol. She also has a history of anxiety, which is managed with buspirone and citalopram, and she notes improvement in her anxiety symptoms. Her other chronic conditions include acid reflux managed with pantoprazole, high cholesterol treated with simvastatin, and leg swelling managed as needed with torsemide. Her weight has fluctuated, with a recent increase from 172 to 178 pounds, which was managed with torsemide. She reports a past history of heavy drinking but has significantly reduced her alcohol intake since 2019. She continues to be active and uses her wheelchair at night to prevent falls. Medical History: - Atrial fibrillation - Anxiety - Hyperlipidemia - Acid reflux - Chronic pain - Nerve damage - History of multiple falls - History of broken ribs Surgical History: - Back surgery in the past. Medications: - Gabapentin 300 mg twice a day for nerve damage and chronic pain - Metoprolol tartrate 12.5 mg twice a day for atrial fibrillation - Tylenol PM as needed for pain and sleep - Eliquis 5 mg twice a day for atrial fibrillation - Buspirone 5 mg three times a day for anxiety - Digoxin 0.125 mg every morning for atrial fibrillation - Citalopram for anxiety - Pantoprazole 20 mg every morning for acid reflux - Simvastatin 10 mg for cholesterol - Torsemide 10 mg as needed for leg swelling - Melatonin as needed for sleep Diagnostic Results: - Kidney function tests: Results are great. Social History - Substance Use: The patient used to drink quite a bit but stopped in 2019. - Functional Status: The patient reports being active and uses a wheelchair at night to prevent falls. [facility] Medical History (Updated 07/22/25 @ 14:56 by Jostin Barrera MD) GERD without esophagitis End of life care Hyperlipidemia Flank pain, acute Back pain Generalized anxiety disorder COPD (chronic obstructive pulmonary disease) Orthostatic hypotension Pleural effusion History of cardioversion Cardiac arrest Atrial fibrillation Acalculous cholecystitis CAD (coronary artery disease) Acute hypercapnic respiratory failure due to obstructive sleep apnea Symptomatic bradycardia Sleep apnea Heart failure with preserved ejection fraction Throat cancer HTN (hypertension) Surgical History History of colonoscopy (~10/29/14) History of thoracentesis Hx of tracheostomy Status post insertion of percutaneous endoscopic gastrostomy (PEG) tube Hx of endoscopic retrograde cholangiopancreatography History of esophagogastroduodenoscopy (EGD) Hx of appendectomy History of back surgery History of laparoscopic cholecystectomy (11/29/23) Atrial fibrillation status post cardioversion Family History Daughter Breast cancer Social History Household Members: Family Housing: House Are you a primary home care and home health aides teacher to a significant other at home: No Do you presently have visiting nurse or other home services: No Alcohol intake: never Comment: counts correct Patient Tobacco Use Status: Former Tobacco user Tobacco use type: Cigarette Years Smoked: 42 e-Cigarette/Vaping Use: Former Use Advance Directives Date on File: 01/13/21 service: No Current occupational status: disabled Cognitive needs: No Hearing needs: No Vision needs: Yes (reading glasses) Questionnaire Thrive Questionnaire Date Thrive assessed: 11/20/24 JENNI-7 AMB Questionnaire JENNI-7 Date JENNI - 7 assessed: 11/20/24 Source: Developed by Drs. Ramin Cook, Amanda Witt, Eliseo Gunn and colleagues, with an educational jacqueline from [employer]. Review of Systems Narrative Review of Systems - Musculoskeletal: Reports significant pain in her back, primarily on the left side/flank, which is worse with movement. - Gastrointestinal: Reports having both good and bad days with her bowels, and recently had an episode of incontinence. Denies concerns about her liver or kidney. - Neurological: Reports nerve damage with a history of a burning sensation in her feet. - Psychiatric: Reports anxiety is under control with current medication. - Cardiovascular: Reports leg swelling which is managed with medication. All systems reviewed & are unremarkable except as reviewed in HPI and above Physical exam (Primary Care) Vital Signs: Last Vital Signs Temp 97.5 F 07/22/25 14:28 Pulse 81 07/22/25 14:28 Resp 18 07/22/25 14:28 BP 102/60 07/22/25 14:28 Pulse Ox 98 07/22/25 14:28 Oxygen Delivery Method Room Air 07/22/25 14:28 BMI result Body Mass Index 29.4 Tobacco/Smoking Status: Tobacco use Status Tobacco use date assessed 11/20/24 07/22/25 14:21 Patient Tobacco Use Status Former Tobacco user 07/22/25 14:21 Tobacco use type Cigarette 07/22/25 14:21 e-Cigarette/Vaping Use Former Use 07/22/25 14:21 Thrive Assessment: Date of Thrive Assessment Date Thrive assessed 11/20/24 07/22/25 14:21 Narrative Physical Exam General: +Alert and oriented, Well nourished, No acute distress. Eye: Pupils are equal, round and reactive to light, Intact accommodation, Extraocular movements are intact, Normal conjunctiva, Vision unchanged. HENT: Normocephalic, Atraumatic, Tympanic membranes are clear, Normal hearing, Oral mucosa is moist, No pharyngeal erythema, Ear canals patent. Respiratory: Lungs CTA bilaterally, No wheeze, Respirations are non-labored. Cardiovascular: Regular rate, Regular rhythm, S1 auscultated, S2 auscultated, No murmur, Good pulses equal in all extremities, Normal peripheral perfusion, No edema. Gastrointestinal: Soft, Non-tender, Non-distended, Normal bowel sounds, No organomegaly. Musculoskeletal: Normal range of motion, Normal strength, Tenderness on the left flank, No swelling, No deformity, Normal gait. Integumentary: Warm, Dry, [employer], Intact. Neurologic: Alert, Oriented, Normal sensory, Normal motor function, No focal defects, Cranial Nerves II-XII are grossly intact, Normal deep tendon reflexes. Psychiatric: Cooperative, Appropriate mood & affect, Normal judgment. Office Procedures Flu Questionnaire Does the patient have a severe egg allergy?: No Does the patient have severe life threatening allergies?: No Does the patient have a fever or illness today?: No Has the patient ever had Guillain-[place] Syndrome?: No Has the patient ever had any past reaction to a flu shot?: No Immunizations Fluzone High-Dose (PF) 180 mcg/0.5 mL intramuscular syringe Performing Provider: Jostin Barrera MD Performing Location: [facility] HD Administered by: Jostin Barrera MD on 07/22/25 14:56 Dose Route Admin Location Dispensed Lot Number Expiration Date [facility] Repairer Shoe Sticks 0.5 mL IM Left Deltoid 0.5 mL [id number] 01/05/26 26185-944-92 [employer] Total Dispensed Waste 0.5 mL 0 % VIS Given Date VIS Provided VIS Publication Date 07/22/25 Single Vaccine 24 Eligibility Eligibility Date Funding Source Not [facility] Eligible 07/22/25 Private Coding Level of Care Code Est Pt Level 4 (49888) Add On Problem Visit Only Diagnoses Chronic bilateral low back pain with bilateral sciatica M54.42; M54.41; G89.29 Back pain location: low back pain Chronicity: chronic Back pain laterality: bilateral Sciatica presence: with sciatica Sciatica laterality: bilateral sciatica Persistent atrial fibrillation I48.19 Generalized anxiety disorder F41.1 GERD without esophagitis K21.9 Chronic heart failure with preserved ejection fraction I50.32 Heart failure chronicity: chronic Other hyperlipidemia E78.49 Hyperlipidemia type: other hyperlipidemia Assessment & Plan Assessment & Plan (1) Back pain: Comment: - The patient's left-sided flank and back pain is likely musculoskeletal, possibly related to her ribs as palpation elicits tenderness over the area. - The pain is chronic and impacts her mobility. - The current gabapentin regimen will be increased to 300 mg in the morning, 300 mg in the afternoon, and 600 mg at night. - She is advised to alternate Tylenol (up to 6 capsules of 500 mg per day) and ibuprofen (200 mg, up to 3 times a day). - Pwmr-kqu-bnajzpn lidocaine patches and a heating pad are also recommended for local pain relief. - A referral will be placed to Pain Management for further evaluation, possibly for a local steroid injection, given her history of back surgery. - Her Pantoprazole will be increased to 40 mg daily to protect her stomach while taking ibuprofen. Code(s): M54.9 - Dorsalgia, unspecified Category: Medical Qualifiers: Back pain location: low back pain Chronicity: chronic Back pain laterality: bilateral Sciatica presence: with sciatica Sciatica laterality: bilateral sciatica Qualified Code(s): M54.42 - Lumbago with sciatica, left side; M54.41 - Lumbago with sciatica, right side; G89.29 - Other chronic pain (2) Persistent atrial fibrillation: Comment: - Continue current management with Eliquis 5 mg twice daily, metoprolol 12.5 mg twice daily, and digoxin 0.125 mg every morning. - The pharmacy will be contacted to ensure refill requests for Eliquis are sent to the correct provider. Code(s): I48.19 - Other persistent atrial fibrillation Category: Medical (3) Generalized anxiety disorder: Comment: - The patient reports her anxiety is well-controlled with buspirone 5 mg three times daily and citalopram. - Continue current medications. Code(s): F41.1 - Generalized anxiety disorder Category: Medical (4) GERD without esophagitis: Comment: - Increase pantoprazole from 20 to 40 mg every morning to provide additional gastric protection due to the initiation of regular ibuprofen use. Code(s): K21.9 - Gastro-esophageal reflux disease without esophagitis Category: Medical (5) Heart failure with preserved ejection fraction: Comment: - Continue torsemide 10 mg as needed for leg swelling. - The current regimen of taking it every other day when weight increases has been effective. Code(s): I50.30 - Unspecified diastolic (congestive) heart failure Category: Medical Qualifiers: Heart failure chronicity: chronic Qualified Code(s): I50.32 - Chronic diastolic (congestive) heart failure (6) Hyperlipidemia: Comment: - Suggest continued simvastatin use at 10 mg for cholesterol control. Code(s): E78.5 - Hyperlipidemia, unspecified Category: Medical Qualifiers: Hyperlipidemia type: other hyperlipidemia Qualified Code(s): E78.49 - Other hyperlipidemia Plan: Health Maintenance: - Administered high-dose influenza vaccine. - Discussed fall prevention, noting the patient's use of a wheelchair at night. - Encouraged patient to remain active. Patient was informed and verbally consented to the use of an ambient scribe for clinic note documentation during this visit. Plan I discussed with the patient and her caregiver the management plan for her significant left-sided back pain. I explained that since she found relief with an extra dose of gabapentin, we would increase her scheduled dose to 300mg in the morning, 300mg in the afternoon, and 600mg at night. I advised her to alternate Tylenol and ibuprofen for breakthrough pain, noting her kidney function is good, which allows for the use of ibuprofen. To mitigate gastrointestinal side effects from the ibuprofen, I have increased her pantoprazole dose to 40mg daily. I recommended non-pharmacological treatments including blno-zox-mjxnftk lidocaine patches and a heating pad. Given the chronic nature of her pain and her history of back surgery, I am placing a referral to Pain Management for consideration of other modalities, such as a local steroid injection, explaining that these clinics focus on non-narcotic solutions. I also reviewed her other chronic medications for conditions including atrial fibrillation and anxiety, noting that they are effective and should be continued. Finally, we administered a high-dose flu shot. Orders: Orders Influenza [id number] High Dose Immunization Today Z23 - Encounter for immunization Referrals Pain Management Referral G89.29 - Other chronic pain, M54.41 - Lumbago with sciatica, right side, M54.42 - Lumbago with sciatica, left side Medications: New pantoprazole 40 mg PO DAILY 90 tabs 2RF Changed From apixaban (Eliquis) 5 mg PO BID 30 days 60 tabs 0RF To apixaban (Eliquis) 5 mg PO BID 180 tabs 0RF 90 days From gabapentin 300 mg PO TID 270 caps 1RF To gabapentin take 1 cap orally in the morning and afternoon and 2 in the evening 120 caps 2RF 30 days Refilled buspirone 5 mg PO TID 270 tabs 0RF 90 days Patient Instructions: - Take Gabapentin as a new schedule: one 300 mg capsule in the morning, one 300 mg capsule in the afternoon, and two 300 mg capsules at night. - For pain, you can take Tylenol and Ibuprofen. You can take up to 6 capsules of 500 mg Tylenol per day. You can also take Ibuprofen 200 mg, but no more than three times a day. Try to switch between Tylenol and Ibuprofen every 4 to 6 hours. - Increase your Pantoprazole (for acid reflux) dose from 20 mg to 40 mg every morning. This is to protect your stomach because you will be taking Ibuprofen. - You may use a heating pad and fbre-wgh-lsjmluc lidocaine patches on the painful area of your back for extra relief. - We are referring you to a Pain Management clinic. They will contact you to schedule an appointment to discuss other pain relief options, like a shot in your back. - Continue taking all your other medications as prescribed for your heart condition, anxiety, cholesterol, and leg swelling. - Make sure to tell your pharmacy to send refill requests for your Eliquis to our office. - Avoid drinking alcohol with your medications. - You received a high-dose flu shot today. Your arm may be sore.
[2025-07-22 14:28] VITALS: BP 102/60; PULSE 81; RESP 18; TEMP 36.4; O2SAT 98; BMI 29.4
--- OUTSIDE RECORDS SUMMARY | 2025-07-22 18:08 | XMS_ITS | Clinical Summary ---
Author Organization [facility] Address [address] [place] [address] Care Team Providers Care Smoking Pipes Cleaner Name Role Phone Juan Miguel Martinez Primary Care Provider [phone] Allergies No known active allergies Medications acetaminophen [...] Hepatitis C Screening 1945 COVID-19 Vaccine (#1) 1945 Medicare AWV 1946 Pneumococcal Vaccine: 50+ Ye ars (1 of 2 - PCV) 1966 Zoster Vaccines (1 of 2) 1966 DTaP,Tdap,and Td Vaccines (1 - Tdap) 1969 CT Lung Cancer Screening (Baseline) 1997 Osteoporosis Screening 1997 RSV Vaccine (60+ years old a nd patients) (1 - 1-dose 75+ series) 2022 Alcohol/Substance Use Screening 08/07/2024 Depression Screening and Follow-Up 08/07/2024 Fall Risk Screening 08/07/2024 Health Care Proxy Review 08/07/2024 Social Drivers of Health Maria R ual Screening 08/07/2024 Influenza Vaccine (#1) 2025 05/13/2023 Hepatitis B Vaccines Aged Out No long er eligible based on patient's age to complete this topic Insurance KELLI PULIDO [id number] MEDICARE [facility] Advance Directives Documents on File Type Date Recorded Patient Pharmacy Student Expl anation Health Care Proxy 05/03/2023 3:05 [...] 10:07 AM 05/02/2023 3:48 PM Care Teams Smoking Pipes Cleaner Relationship Specialty Start Date End Date Juan Miguel Martinez [address] [place] [address] [place] [address] PCP - General Internal Medicine 03/21/23
--- OUTSIDE RECORDS SUMMARY | 2025-07-22 18:08 | XMS_ITS ---
Author Organization [facility] Address [address] [place] [address] Care Team Providers Care Recorder Helper Seismograph Name Role Phone Juan Miguel Martinez Primary Care Provider [phone] Active Problems Problem Noted Date Diagnosed Date [...]
== END 2025-07-22 14:55 | disposition home or self-care (01) ==
LOC: HO.HMCHD 13:58
PROVIDERS: PCP Internal Medicine; Visit Provider Student in an Organized Health Care Education/Training Program
DX: M54.42 Lumbago with sciatica, left side (principal); M54.41 Lumbago with sciatica, right side; G89.29 Other chronic pain; I48.19 Other persistent atrial fibrillation; F41.1 Generalized anxiety disorder; K21.9 Gastro-esophageal reflux disease without esophagitis; I50.32 Chronic diastolic (congestive) heart failure; E78.49 Other hyperlipidemia; Z23 Encounter for immunization

== ENCOUNTER → 2025-07-22 13:57 | Outpatient (BNVA) | payer MEDICARE, MEDICAID, SELFPAY | PROVIDERS: PCP Internal Medicine; Visit Provider Student in an Organized Health Care Education/Training Program | DX: M54.42 Lumbago with sciatica, left side (principal); M54.41 Lumbago with sciatica, right side; G89.29 Other chronic pain; I48.19 Other persistent atrial fibrillation; F41.1 Generalized anxiety disorder; K21.9 Gastro-esophageal reflux disease without esophagitis; I50.32 Chronic diastolic (congestive) heart failure; E78.49 Other hyperlipidemia; Z23 Encounter for immunization; Z79.01 Long term (current) use of anticoagulants; Z79.899 Other long term (current) drug therapy | CPT/HCPCS: 90471; 90662; 99212 ==